=== PATIENT | female | born 1950 | race Caucasian/White ===

== ENCOUNTER 2016-03-30 14:20 | Emergency (ER) | payer MEDICARE ==
[~2016-03-30 14:20] MED LIST: /AUGM875TA OR; /GLIM4TA PO; /MAGN40TA PO; /MOM400 PO; /MOXI40TA PO; ACET650T12 PO; ACET65TA; ACET65TA OR; ALDA25TA2 OR; ALLE25CA OR; ARANESP SC; ASPI-85 PO; ASPI1TAB PO; AUGM875T27 PO; BABY81CH OR; BABY81CH PO; BACIDCA PO; BENA25CA2 PO; BENA25TA4 PO; BISAC5TA PO; CALC1CAP31 PO; CARV25TA PO; CEFD300CAP PO; CEFT2VL IV; CIPR500T89 PO; CLEO300C OR; CLIN300C OR; COENZYME PO; COLA100C2; COLA100C2 OR; COLA50CA3 PO; CORE12.5 PO; CORE25TA OR; COZA100T2 PO; CYCL10TA PO; DARB30SYRN SC; DEMA10TA OR; DICL13PA TOP; DIFL150T PO; DOCU10ELUD PO; DRIS50002 PO; EX LAX PO; FERR325T; FERR325T3 PO; FERROUS SULFATE PO; FLEXERIL PO; GENTAMYCIN TOP; GLIP5TAB2 PO; GLIP5TAB8 PO; GLIPI PO; GLUC1000 PO; HEPA100PFS INJ; HUMA100I3 SC; HYDR25TA6; IMDU30TA PO; IMDUR PO; INSULANT SQ; INSULIN LANTUS SC; INVA1INJ IV; KCL PO; KETO2CR EXT; LASI40TA PO; LASI80TA PO; LISI10TA4 OR; LISI20TA5; LISI40TA PO; LOPR100T; LYRI75CA; MAG400TA PO; MAGN400T19 PO; MILKSUS OR; MIRA3350 PO; MIRALEX; NEUR300C PO; NITR0.4S SL; NOVOLOG100 MG/ML; PAXI20TA PO; PERC10TA PO; PERC10TA9 PO; PERCOCET PO; PRAV40TA PO; ROCE1INJ4 INJ; SALI0.9I2 IV; SENE8.6T PO; SENN8.6T5 OR; SENO8.6T10 PO; SENO8.6T9 PO; SILV40CR TOP; SPIR25TA2 PO; Silvadene TOP; TORS20TA2 PO; TRAD5TAB PO; TUMS500C PO; TYLE325T5 PO; TYLENOL #3 OR; TYLENOL PM; VANC25CA; VICO5TAB; VICO5TAB OR; VIST25CA; VITAMIN D PO; [UNRECOGNIZED DRUG - CODE] IV; [UNRECOGNIZED DRUG - OTHER] PO; [UNRECOGNIZED DRUG - OTHER] PO; [UNRECOGNIZED DRUG - OTHER] TOP
[2016-03-30 15:05] LABS: BASO % 0.3 % (0.0-1.0); EOS # 0.4 K/mm3 (0.0-0.50); LARGE UNSTAINED CELL # 0.1 K/mm3 (0.0-0.4); LARGE UNSTAINED CELL % 1.2 % (0.0-4.0); LYMPH # 1.7 K/mm3 (1.5-4.5); LYMPH % 18.7 % (24.0-44.0); MEAN CORPUSCULAR HEMOGLOBIN 30.7 pg (27.0-33.0); MEAN CORPUSCULAR HGB CONC 33.5 g/dl (32.0-36.5); MEAN CORPUSCULAR VOLUME 91.9 fl (80.0-96.0); MONO # 0.4 K/mm3 (0.0-0.8); MONO % 4.2 % (0.0-5.0); NEUTROPHILS # 6.1 K/mm3 (1.8-7.7); NEUTROPHILS % 70.6 % (36.0-66.0); PLATELET COUNT, AUTOMATED 190 k/mm3 (150-450); RED CELL DISTRIBUTION WIDTH 14.7 % (11.5-14.5); WHITE BLOOD COUNT 8.6 K/mm3 (4.0-10.0)
[2016-03-30] MEDS ORDERED: ONDANSETRON 4MG/2ML VIAL (J2405) As Ordered ONE (15:09)
[2016-03-30] MEDS ORDERED: KETOROLAC 30 MG/ML VIAL (J1885) As Ordered ONE (15:09)
[2016-03-30 15:31] LABS: ALBUMIN 3.7 GM/DL (3.2-5.2); ALBUMIN/GLOBULIN RATIO 0.97 (1.00-1.93); ALKALINE PHOSPHATASE 121 U/L (45-117); ALT/SGPT 30 U/L (12-78); AMYLASE 52 U/L (25-115); ANION GAP 10 MEQ/L (8-16); AST/SGOT 33 U/L (15-37); BILIRUBIN,DIRECT 0.2 MG/DL (0.0-0.2); BILIRUBIN,TOTAL 0.7 MG/DL (0.2-1.0); BLOOD UREA NITROGEN 43 MG/DL (7-18); CALCIUM LEVEL 8.7 MG/DL (8.8-10.2); CARBON DIOXIDE LEVEL 29 MEQ/L (21-32); CHLORIDE LEVEL 99 MEQ/L (98-107); CREATININE FOR GFR 2.96 MG/DL (0.55-1.02); GLUCOSE, FASTING 116 MG/DL (80-110); SODIUM LEVEL 138 MEQ/L (136-145); TOTAL PROTEIN 7.5 GM/DL (6.4-8.2)
[2016-03-30 15:38] LABS: POTASSIUM SERUM 4.2 MEQ/L (3.5-5.1)
--- NOTE | 2016-03-30 16:31 | EDDOCDS ---
Physician Documentation [facility] Name: Norma Narayan Age: 65 yrs Sex: Female : 1950 Arrival Date: 03/30/2016 Time: 14:20 Bed 9 Private MD: Jeremy Cornell D Disposition: 03/30/16 16:11 Discharged to Home/Self Care. Impression: Illness, unspecified, Diarrhea, unspecified. - Condition is Stable. - Discharge Instructions: Diarrhea, Viral Infections. - Prescriptions for Zofran 4 mg Oral Tablet - take 1 tablet by ORAL route 4 times per day As needed; 10 tablet. - Medication Reconciliation, Local Pharmacy Hours form. - Follow up: Jeremy Cornell; When: 4 - 5 days; Reason: Recheck today's complaints, Continuance of care. - Problem is an ongoing problem. - Symptoms are unchanged. Historical: - Allergies: Adhesives (Rash); [place] (Hives); Vicodin (itching); - Home Meds: 1. aspirin 81 mg Oral chew 1 tab once daily 2. carvedilol 12.5 mg oral tab 2 times per day 3. spironolactone 25 mg Oral tab 2 times per day 4. gabapentin 300 mg Oral cap 2 caps nightly 5. paroxetine HCl 40 mg Oral tab once daily 6. torsemide 20 mg oral tab twice a day 7. Sofia-Nicolas 0.8 mg oral tab daily ran out 8. atorvastatin 40 mg oral tab 1 tab once daily 9. calcitriol 0.25 mcg oral cap 2 caps once daily 10. Flexeril 10 mg Oral tab nightly 11. Iron CR Oral twice a day 12. Tradjenta 5 mg oral tab 1 tab once daily 13. Imdur Unknown Oral 14. Lantus 70 units AM and 60 units at night Sub-Q soln 70 unit twice a day 15. Vitamin D Oral 50,000 unit weekly - PMHx: Angina; Diabetes - IDDM: controlled; Stage IV kidney disease; Hypertension; - PSHx: Appendectomy; Cholecystectomy; Tonsillectomy; Hysterectomy; D & C; Cesearean Section; - Social history: Smoking status: Patient states former smoker of tobacco. No barriers to communication noted, The patient speaks fluent Persian, Speaks appropriately for age. - Family history: Not pertinent. - : The pt / caregiver states he / she is not on anticoagulants. Home medication list is obtained from the patient. - Exposure Risk Screening:: None identified. Vital Signs: 03/30 14:22 BP 152 / 65 LA Sitting (auto/lg); Pulse 75; Resp 16; Temp 98.6(O); Pulse Ox 100% on rs6 R/A; Weight 122.92 kg / 270.99 lbs (R); Height 5 ft. 10 in. (177.80 cm) (R); Pain 0/10; 14:51 BP 147 / 67 (auto/); pml 14:53 Pulse 72 MON; Pulse Ox 99% ; pml 15:19 BP 164 / 73 (auto/); pml 15:20 Pulse 76 MON; Pulse Ox 99% ; pml 15:34 Pulse 70 MON; Pulse Ox 95% ; pml 15:34 BP 134 / 63 (auto/); pml 15:49 Pulse 68 MON; Pulse Ox 95% ; pml 15:49 BP 123 / 58 (auto/); pml 16:04 Pulse 70 MON; Pulse Ox 95% ; pml 16:04 BP 122 / 57 (auto/); pml 16:29 BP 111 / 56; Pulse 72; Resp 18; Temp 97.9; Pulse Ox 99% on R/A; Pain 2/10; pml 14:22 Body Mass Index 38.88 (122.92 kg, 177.80 cm) rs6 MDM: 14:40 Undress patient appropriately for examination ordered. sd1 14:41 ECG WITH READING ER PHYS+CARDIAG ordered. EDMS 14:41 Amylase Ordered. EDMS 14:41 Basic Metabolic Profile Ordered. EDMS 14:41 CBC with Diff Ordered. EDMS 14:41 Lipase Ordered. EDMS 14:41 Liver Profile Ordered. EDMS 14:41 Abdomen, Flat\E\Upright,PA Chest Ordered. EDMS 14:41 ECG WITH READING ER PHYS+CARDIAG ordered. EDMS 14:41 NOTHING BY MOUTH+DIET ordered. EDMS 15:03 NS 0.9% 1000 ml IV at 100 mL/hr continuous ordered. ke 15:03 Ondansetron 4 mg IVP once ordered. ke 15:03 ketorolac 30 mg IVP once ordered. ke 15:07 CARDIAC INJURY PROFILE Ordered. EDMS 15:07 TROPONIN Ordered. EDMS 15:59 Financial registration complete. [email or web address] 16:00 [facility] Payment Agreement was scanned into [employer] and attached to record. ks16 16:07 Basic Metabolic Profile Reviewed. ke 16:07 CBC with Diff Reviewed. ke 16:07 Liver Profile Reviewed. ke 16:07 Amylase Reviewed. ke 16:07 Lipase Reviewed. ke 16:07 CARDIAC INJURY PROFILE Reviewed. ke 16:07 TROPONIN Reviewed. ke Administered Medications: 15:15 Drug: ketorolac 30 mg [ketorolac 30 mg/mL (1 mL) injection solution (1 mL)] Route: IVP; pml Site: left forearm; 15:57 Drug: Ondansetron 4 mg [ondansetron HCl 2 mg/mL intravenous solution (2 mL)] Route: pml IVP; Site: left forearm; 15:58 Drug: NS 0.9% 1000 ml [sodium chloride 0.9 % injection syringe] Route: IV; Rate: 100 pml mL/hr; Site: left forearm; 16:30 Follow up: IV Status: Completed infusion; IV Intake: 200ml pml Signatures: Dispatcher [employer] EDMS Vilma Oh MD MD sd1 Andre Elliott, FINANCE CLERK FINANCE CLERK Suzanne BeebeRN RN kr3 Yana WallaceRN RN pml Yadira Julian, Reg Reg [email or web address] The chart was reviewed and I authenticate all verbal orders and agree with the evaluation and treatment provided.Corrections: (The following items were deleted from the chart) 15:08 15:04 CARDIAC INJURY PROFILE+LAB ordered. EDMS EDMS 15:08 15:04 TROPONIN+LAB ordered. EDMS EDMS Attachments: 16:00 [facility] Payment Agreement [email or web address] MTDD
--- NOTE | 2016-03-30 16:31 | EDDOCDS ---
Nurse's Notes [facility] Name: Norma Narayan Age: 65 yrs Sex: Female : 1950 Arrival Date: 03/30/2016 Time: 14:20 Bed 9 Private MD: Jermey Cornell D Diagnosis: Illness, unspecified;Diarrhea, unspecified Presentation: 03/30 14:33 Presenting complaint: Patient states: nausea, vomiting and diarrhea began on thursday. kr3 Adult Sepsis Screening: The patient does not have new or worsening altered mentation. Patient's respiratory rate is less than 22. Systolic blood pressure is greater than 100. Patient has a qSOFA score of 0- Negative Sepsis Screen. Suicide/Homicide risk assessment- the patient denies having any suicidal and/or homicidal ideations and does not present with any other emotional, behavioral or mental health complaints. Status: Patient is not a micrographics services supervisor or dependent. Transition of care: patient was not received from another setting of care. 14:33 Method Of Arrival: Walkin/Carried/Asstd kr3 14:33 Acuity: LOREN Level 3 kr3 Triage Assessment: 14:38 General: Appears in no apparent distress, comfortable, Behavior is cooperative. Pain: kr3 Location: all over chest and back Pain currently is 4 out of 10 on a pain scale. Quality of pain is described as discomfort. HIV screening NA for this visit Offered previously. Neurological: Reports dizziness. Respiratory: Respiratory effort is even, unlabored. GI: Reports diarrhea, nausea. Derm: Skin is normal. Historical: - Allergies: Adhesives (Rash); [place]ce[place] (Hives); Vicodin (itching); - Home Meds: 1. aspirin 81 mg Oral chew 1 tab once daily 2. carvedilol 12.5 mg oral tab 2 times per day 3. spironolactone 25 mg Oral tab 2 times per day 4. gabapentin 300 mg Oral cap 2 caps nightly 5. paroxetine HCl 40 mg Oral tab once daily 6. torsemide 20 mg oral tab twice a day 7. Sofia-Nicolas 0.8 mg oral tab daily ran out 8. atorvastatin 40 mg oral tab 1 tab once daily 9. calcitriol 0.25 mcg oral cap 2 caps once daily 10. Flexeril 10 mg Oral tab nightly 11. Iron CR Oral twice a day 12. Tradjenta 5 mg oral tab 1 tab once daily 13. Imdur Unknown Oral 14. Lantus 70 units AM and 60 units at night Sub-Q soln 70 unit twice a day 15. Vitamin D Oral 50,000 unit weekly - PMHx: Angina; Diabetes - IDDM: controlled; Stage IV kidney disease; Hypertension; - PSHx: Appendectomy; Cholecystectomy; Tonsillectomy; Hysterectomy; D & C; Cesearean Section; - Social history: Smoking status: Patient states former smoker of tobacco. No barriers to communication noted, The patient speaks fluent Kiswahili, Speaks appropriately for age. - Family history: Not pertinent. - : The pt / caregiver states he / she is not on anticoagulants. Home medication list is obtained from the patient. - Exposure Risk Screening:: None identified. Screenin:02 Screening information is obtained from the patient. Fall risk: No risks identified. pml Assistance ADL's: requires no assistance with activities of daily living. Abuse/DV Screen: The patient / caregiver reports he/she is: not in a situation that causes fear, pain or injury. Nutritional screening: No deficits noted. Advance Directives: Currently, there is no health care proxy. home support is adequate. Assessment: 15:02 General: Appears in no apparent distress, Behavior is appropriate for age, cooperative. pml Pain: Location: chest Pain currently is 4 out of 10 on a pain scale. Neurological: Level of Consciousness is awake, alert, Oriented to person, place, time. Cardiovascular: Capillary refill < 3 seconds Rhythm is sinus rhythm No ectopy. Cardiovascular: Chest pain began 1 day ago. Respiratory: Airway is patent Respiratory effort is even, unlabored. GI: Abdomen is non- distended obese, Bowel sounds present X 4 quads. Abd is soft X 4 quads. Derm: Skin is pink, warm & dry. 16:28 General: Appears in no apparent distress, Behavior is appropriate for age, cooperative. pml Pain: Location: chest Pain currently is 2 out of 10 on a pain scale. Neurological: Level of Consciousness is awake, alert, Oriented to person, place, time. Cardiovascular: Capillary refill < 3 seconds Rhythm is sinus rhythm No ectopy. Respiratory: Airway is patent Respiratory effort is even, unlabored. Derm: Skin is pink, warm & dry. Vital Signs: 14:22 BP 152 / 65 LA Sitting (auto/lg); Pulse 75; Resp 16; Temp 98.6(O); Pulse Ox 100% on rs6 R/A; Weight 122.92 kg (R); Height 5 ft. 10 in. (177.80 cm) (R); Pain 0/10; 14:51 BP 147 / 67 (auto/); pml 14:53 Pulse 72 MON; Pulse Ox 99% ; pml 15:19 BP 164 / 73 (auto/); pml 15:20 Pulse 76 MON; Pulse Ox 99% ; pml 15:34 Pulse 70 MON; Pulse Ox 95% ; pml 15:34 BP 134 / 63 (auto/); pml 15:49 Pulse 68 MON; Pulse Ox 95% ; pml 15:49 BP 123 / 58 (auto/); pml 16:04 Pulse 70 MON; Pulse Ox 95% ; pml 16:04 BP 122 / 57 (auto/); pml 16:29 BP 111 / 56; Pulse 72; Resp 18; Temp 97.9; Pulse Ox 99% on R/A; Pain 2/10; pml 14:22 Body Mass Index 38.88 (122.92 kg, 177.80 cm) [facility] Vitals: 14:22 Log In Time: March 30, 2016 at 14:14. rs6 ED Course: 14:22 Patient visited by Catrachita Craig PCA. rs6 14:22 Jeremy Cornell is Private Physician. rs6 14:22 Patient moved to Waiting rs6 14:23 Patient visited by Catrachita Craig PCA. rs6 14:23 Patient moved to Pre RCE rs6 14:34 Triage Initiated kr3 14:42 Yana Wallace,RN is Primary Nurse. kr3 14:42 Patient moved to 9 kr3 14:56 Andre Elliott FNP is PHCP. ke 14:57 Patient visited by Andre Elliott FNP. ke 14:57 Patient visited by Andre Elliott FNP. ke 15:02 The patient / caregiver is instructed regarding the plan of care and ED course. Patient howard has correct armband on for positive identification. Placed in gown. Bed in low position. Call light in reach. Side rails up X2. patient monitor on. Pulse ox on. NIBP on. 15:02 Inserted peripheral IV: 20gauge IV in left forearm and blood collected. Patient howard tolerated the procedure well. 15:03 Patient visited by Gregoria Rangel PCA. ct3 15:03 EKG done. (by ED staff). Reviewed by Andre HOLCOMB. ct3 15:43 Patient visited by Andre Elliott FNP. ke 16:00 [facility] Payment Agreement was scanned into test company and attached to record. [email or web address] 16:11 Jeremy Cornell is Referral Physician. ke 16:29 Discontinued lock intact, bleeding controlled, pressure dressing applied, No pml redness/swelling at site. No procedures done that require assistance. Administered Medications: 15:15 Drug: ketorolac 30 mg [ketorolac 30 mg/mL (1 mL) injection solution (1 mL)] Route: IVP; pml Site: left forearm; 15:57 Drug: Ondansetron 4 mg [ondansetron HCl 2 mg/mL intravenous solution (2 mL)] Route: pml IVP; Site: left forearm; 15:58 Drug: NS 0.9% 1000 ml [sodium chloride 0.9 % injection syringe] Route: IV; Rate: 100 pml mL/hr; Site: left forearm; 16:30 Follow up: IV Status: Completed infusion; IV Intake: 200ml pml Intake: 16:30 IV: 200.00ml; Total: 200.00ml. pml Order Results: Lab Order: Amylase; SPEC'M 03/30/16 15:00 Test: AMYLASE; Value: 52; Range: 25-115; Units: U/L; Status: F Lab Order: Basic Metabolic Profile; SPEC'M 03/30/16 15:00 Test: GLUCOSE, FASTING; Value: 116; Range: 80-110; Abnormal: Above high normal; Units: MG/DL; Status: F Test: BLOOD UREA NITROGEN; Value: 43; Range: 7-18; Abnormal: Above high normal; Units: MG/DL; Status: F Test: CREATININE FOR GFR; Value: 2.96; Range: 0.55-1.02; Abnormal: Above high normal; Units: MG/DL; Status: F Test: GLOMERULAR FILTRATION RATE; Value: 17.0; Range: >45; Abnormal: Below low normal; Status: F Test: SODIUM LEVEL; Value: 138; Range: 136-145; Units: MEQ/L; Status: F Test: POTASSIUM SERUM; Value: 4.2; Range: 3.5-5.1; Units: MEQ/L; Status: F Test: CHLORIDE LEVEL; Value: 99; Range: 98-107; Units: MEQ/L; Status: F Test: CARBON DIOXIDE LEVEL; Value: 29; Range: 21-32; Units: MEQ/L; Status: F Test: ANION GAP; Value: 10; Range: 8-16; Units: MEQ/L; Status: F Test: CALCIUM LEVEL; Value: 8.7; Range: 8.8-10.2; Abnormal: Below low normal; Units: MG/DL; Status: F Test Note: ; Units are mL/min/1.73 m2 Chronic Kidney Disease Staging per NKF: Stage I & II GFR >=60 Normal to Mildly Decreased Stage III GFR 30-59 Moderately Decreased Stage IV GFR 15-29 Severely Decreased Stage V GFR <15 Very Little GFR Left ESRD GFR <15 on CRIME PREVENTION WORKER Lab Order: CBC with Diff; SPEC'M 03/30/16 15:00 Test: WHITE BLOOD COUNT; Value: 8.6; Range: 4.0-10.0; Units: K/mm3; Status: F Test: RED BLOOD COUNT; Value: 3.34; Range: 4.00-5.40; Abnormal: Below low normal; Units: M/mm3; Status: F Test: HEMOGLOBIN; Value: 10.3; Range: 12.0-16.0; Abnormal: Below low normal; Units: g/dl; Status: F Test: HEMATOCRIT; Value: 30.7; Range: 36.0-47.0; Abnormal: Below low normal; Units: %; Status: F Test: MEAN CORPUSCULAR VOLUME; Value: 91.9; Range: 80.0-96.0; Units: fl; Status: F Test: MEAN CORPUSCULAR HEMOGLOBIN; Value: 30.7; Range: 27.0-33.0; Units: pg; Status: F Test: MEAN CORPUSCULAR HGB CONC; Value: 33.5; Range: 32.0-36.5; Units: g/dl; Status: F Test: RED CELL DISTRIBUTION WIDTH; Value: 14.7; Range: 11.5-14.5; Abnormal: Above high normal; Units: %; Status: F Test: PLATELET COUNT, AUTOMATED; Value: 190; Range: 150-450; Units: k/mm3; Status: F Test: NEUTROPHILS %; Value: 70.6; Range: 36.0-66.0; Abnormal: Above high normal; Units: %; Status: F Test: LYMPH %; Value: 18.7; Range: 24.0-44.0; Abnormal: Below low normal; Units: %; Status: F Test: MONO %; Value: 4.2; Range: 0.0-5.0; Units: %; Status: F Test: EOS %; Value: 5.0; Range: 0.0-3.0; Abnormal: Above high normal; Units: %; Status: F Test: BASO %; Value: 0.3; Range: 0.0-1.0; Units: %; Status: F Test: LARGE UNSTAINED CELL %; Value: 1.2; Range: 0.0-4.0; Units: %; Status: F Test: NEUTROPHILS #; Value: 6.1; Range: 1.8-7.7; Units: K/mm3; Status: F Test: LYMPH #; Value: 1.7; Range: 1.5-4.5; Units: K/mm3; Status: F Test: MONO #; Value: 0.4; Range: 0.0-0.8; Units: K/mm3; Status: F Test: EOS #; Value: 0.4; Range: 0.0-0.50; Units: K/mm3; Status: F Test: BASO #; Value: 0.0; Range: 0.0-0.2; Units: K/mm3; Status: F Test: LARGE UNSTAINED CELL #; Value: 0.1; Range: 0.0-0.4; Units: K/mm3; Status: F Lab Order: Lipase; SPEC'M 03/30/16 15:00 Test: LIPASE; Value: 194; Range: 73-393; Units: U/L; Status: F Lab Order: Liver Profile; SPEC'M 03/30/16 15:00 Test: AST/SGOT; Value: 33; Range: 15-37; Units: U/L; Status: F Test: ALT/SGPT; Value: 30; Range: 12-78; Units: U/L; Status: F Test: ALKALINE PHOSPHATASE; Value: 121; Range: 45-117; Abnormal: Above high normal; Units: U/L; Status: F Test: BILIRUBIN,TOTAL; Value: 0.7; Range: 0.2-1.0; Units: MG/DL; Status: F Test: BILIRUBIN,DIRECT; Value: 0.2; Range: 0.0-0.2; Units: MG/DL; Status: F Test: TOTAL PROTEIN; Value: 7.5; Range: 6.4-8.2; Units: GM/DL; Status: F Test: ALBUMIN; Value: 3.7; Range: 3.2-5.2; Units: GM/DL; Status: F Test: ALBUMIN/GLOBULIN RATIO; Value: 0.97; Range: 1.00-1.93; Abnormal: Below low normal; Status: F Lab Order: CARDIAC INJURY PROFILE; LOCATED [facility]IN [facility]' 03/30/16 15:00 Test: CPK CREATINE PHOSPHOKINASE; Value: 128; Range: 26-192; Units: U/L; Status: F Test: CK-MB VALUE MASS; Value: 3.4; Range: 0.0-3.6; Units: NG/ML; Status: F Test: MB/CK RELATIVE INDEX; Value: 2.65; Range: < OR =4; Status: F Test Note: ; DIAGNOSIS CRITERIA MMB ng/ml Relative Index (RI) NON-AMI < or = 5 N/A [place]ONE > 5 < or = 4 AMI > 5 > 4 Lab Order: TROPONIN; SPEC' 03/30/16 15:00 Test: TROPONIN I; Value: < 0.02; Range: < 0.10; Units: NG/ML; Status: F Test Note: ; Troponin I Reference Interval for [employer] LOCI: 99th Percentile= 0.00-0.045 ng/ml Risk Stratification: <= 0.10 ng/ml Decreased Risk for Adverse Clinical Events. 0.10-1.50 ng/ml Increased Risk for Adverse Clinical Events. Evaluation of additional criterion and/or repeat testing in 2-6 hours is suggested to rule out myocardial damage. >= 1.50 ng/ml Indicative of Myocardial Injury. Outcome: 16:11 Discharge ordered by Provider. 16:29 Discharge Assessment: Patient awake, alert and oriented x 3. No cognitive and/or pml functional deficits noted. Patient verbalized understanding of disposition instructions. patient administered narcotics - no. The following High Risk Discharge criteria are identified: None. Discharged to home ambulatory. Condition: good Condition: stable. Discharge instructions given to patient, Instructed on discharge instructions, follow up and referral plans. medication usage, Demonstrated understanding of instructions, medications, Pt was receptive of discharge instructions/ teaching. Prescriptions given X 1. No special radiology studies were completed. Property sent home with patient. 16:30 Patient left the ED. pml Signatures: Andre Elliott, CHUTE MAN CHUTE MAN Suzanne BeebeRN RN kr3 Gregoria Rangel, COAL AND ASH SUPERVISOR COAL AND ASH SUPERVISOR ct3 Yana WallaceRN RN pml Catrachita Craig, COAL AND ASH SUPERVISOR COAL AND ASH SUPERVISOR rs6 Yadira Julian, Reg Reg [email or web address] Corrections: (The following items were deleted from the chart) 16:30 14:51 BP 111 / 56; Pulse 72bpm; Resp 18bpm; Pulse Ox 99% RA; Temp 97.9F; Pain 2/10; pml pml MTDD
--- NOTE | 2016-03-30 16:58 | ECGEPIP ---
Stationary ECG Study [facility] - ED Test Date: 2016-03-30 Pat Name: CARMELITA KANG Department: Room: - Gender: F Fire [employer]: ct : 1950 Requested By: Vilma Oh Order Number: [id number] Reading MD: Dhruv Marin Measurements Intervals [place] Rate: 76 P: 48 LA: 202 QRS: 25 QRSD: 103 T: 25 QT: 385 QTc: 433 Interpretive Statements SINUS RHYTHM POSSIBLE PRIOR INFARCT SIMILAR TO 03/28/15 Electronically Signed On 03-30-2016 16:58:31 EST by Dhruv Marin
--- NOTE | 2016-03-31 05:44 | REP ---
Abdominal series: Four views. History: Vomiting. Comparison study March 28, 2015. Findings: Upright chest radiograph shows clear well inflated lungs. Pleural angles are sharp. Heart size is not enlarged. There is no evidence of free subdiaphragmatic air or infiltrate. Supine and erect views of the abdomen reveal air and stool in a nondistended colon. No small or large bowel dilation is seen. There is some vascular calcification. There are clips in the right upper quadrant post cholecystectomy. Impression: Normal bowel gas pattern. Clips in the right upper quadrant. No acute disease. Signed by Mihai Burrows MD 03/31/2016 02:22 P
--- NOTE | 2016-04-01 17:31 | EDDOCDS ---
Physician Documentation [facility] Name: Norma Narayan Age: 65 yrs Sex: Female : 1950 Arrival Date: 03/30/2016 Time: 14:20 Bed 9 Private MD: Jeremy Cornell D Disposition: 03/30/16 16:11 Discharged to Home/Self Care. Impression: Illness, unspecified, Diarrhea, unspecified. - Condition is Stable. - Discharge Instructions: Diarrhea, Viral Infections. - Prescriptions for Zofran 4 mg Oral Tablet - take 1 tablet by ORAL route 4 times per day As needed; 10 tablet. - Medication Reconciliation, Local Pharmacy Hours form. - Follow up: Jeremy Cornell; When: 4 - 5 days; Reason: Recheck today's complaints, Continuance of care. - Problem is an ongoing problem. - Symptoms are unchanged. Historical: - Allergies: Adhesives (Rash); [place] (Hives); Vicodin (itching); - Home Meds: 1. aspirin 81 mg Oral chew 1 tab once daily 2. carvedilol 12.5 mg oral tab 2 times per day 3. spironolactone 25 mg Oral tab 2 times per day 4. gabapentin 300 mg Oral cap 2 caps nightly 5. paroxetine HCl 40 mg Oral tab once daily 6. torsemide 20 mg oral tab twice a day 7. Sofia-Nicolas 0.8 mg oral tab daily ran out 8. atorvastatin 40 mg oral tab 1 tab once daily 9. calcitriol 0.25 mcg oral cap 2 caps once daily 10. Flexeril 10 mg Oral tab nightly 11. Iron CR Oral twice a day 12. Tradjenta 5 mg oral tab 1 tab once daily 13. Imdur Unknown Oral 14. Lantus 70 units AM and 60 units at night Sub-Q soln 70 unit twice a day 15. Vitamin D Oral 50,000 unit weekly - PMHx: Angina; Diabetes - IDDM: controlled; Stage IV kidney disease; Hypertension; - PSHx: Appendectomy; Cholecystectomy; Tonsillectomy; Hysterectomy; D & C; Cesearean Section; - Social history: Smoking status: Patient states former smoker of tobacco. No barriers to communication noted, The patient speaks fluent Yakut, Speaks appropriately for age. - Family history: Not pertinent. - : The pt / caregiver states he / she is not on anticoagulants. Home medication list is obtained from the patient. - Exposure Risk Screening:: None identified. Vital Signs: 03/30 14:22 BP 152 / 65 LA Sitting (auto/lg); Pulse 75; Resp 16; Temp 98.6(O); Pulse Ox 100% on rs6 R/A; Weight 122.92 kg / 270.99 lbs (R); Height 5 ft. 10 in. (177.80 cm) (R); Pain 0/10; 14:51 BP 147 / 67 (auto/); pml 14:53 Pulse 72 MON; Pulse Ox 99% ; pml 15:19 BP 164 / 73 (auto/); pml 15:20 Pulse 76 MON; Pulse Ox 99% ; pml 15:34 Pulse 70 MON; Pulse Ox 95% ; pml 15:34 BP 134 / 63 (auto/); pml 15:49 Pulse 68 MON; Pulse Ox 95% ; pml 15:49 BP 123 / 58 (auto/); pml 16:04 Pulse 70 MON; Pulse Ox 95% ; pml 16:04 BP 122 / 57 (auto/); pml 16:29 BP 111 / 56; Pulse 72; Resp 18; Temp 97.9; Pulse Ox 99% on R/A; Pain 2/10; pml 14:22 Body Mass Index 38.88 (122.92 kg, 177.80 cm) rs6 MDM: 14:40 Undress patient appropriately for examination ordered. sd1 14:41 ECG WITH READING ER PHYS+CARDIAG ordered. EDMS 14:41 Amylase Ordered. EDMS 14:41 Basic Metabolic Profile Ordered. EDMS 14:41 CBC with Diff Ordered. EDMS 14:41 Lipase Ordered. EDMS 14:41 Liver Profile Ordered. EDMS 14:41 Abdomen, Flat\E\Upright,PA Chest Ordered. EDMS 14:41 ECG WITH READING ER PHYS+CARDIAG ordered. EDMS 14:41 NOTHING BY MOUTH+DIET ordered. EDMS 15:03 NS 0.9% 1000 ml IV at 100 mL/hr continuous ordered. ke 15:03 Ondansetron 4 mg IVP once ordered. ke 15:03 ketorolac 30 mg IVP once ordered. ke 15:07 CARDIAC INJURY PROFILE Ordered. EDMS 15:07 TROPONIN Ordered. EDMS 15:59 Financial registration complete. [email or web address] 16:00 [facility] Payment Agreement was scanned into [employer] and attached to record. [email or web address] 16: Basic Metabolic Profile Reviewed. ke 16: CBC with Diff Reviewed. ke 16:07 Liver Profile Reviewed. ke 16: Amylase Reviewed. ke 16:07 Lipase Reviewed. ke 16:07 CARDIAC INJURY PROFILE Reviewed. ke 16:07 TROPONIN Reviewed. ke 03/31 11:51 T-Sheet-- Draft Copy was scanned into [employer] and attached to record. gb 11:51 ECG/EKG was scanned into [employer] and attached to record. gb Administered Medications: 03/30 15:15 Drug: ketorolac 30 mg [ketorolac 30 mg/mL (1 mL) injection solution (1 mL)] Route: IVP; pml Site: left forearm; 15:57 Drug: Ondansetron 4 mg [ondansetron HCl 2 mg/mL intravenous solution (2 mL)] Route: pml IVP; Site: left forearm; 15:58 Drug: NS 0.9% 1000 ml [sodium chloride 0.9 % injection syringe] Route: IV; Rate: 100 pml mL/hr; Site: left forearm; 16:30 Follow up: IV Status: Completed infusion; IV Intake: 200ml pml Signatures: Dispatcher [employer] EDMS Vilma Oh MD MD sd1 Myrna Kyle, Reg Reg gb Andre Elliott, HAT MEASURER HAT MEASURER Suzanne Beebe RN RN kr3 Yana Wallace RN RN pml Yadira Julian, Reg Reg [email or web address] The chart was reviewed and I authenticate all verbal orders and agree with the evaluation and treatment provided.Corrections: (The following items were deleted from the chart) 15:08 15:04 CARDIAC INJURY PROFILE+LAB ordered. EDMS EDMS 15: 15:04 TROPONIN+LAB ordered. EDMS EDMS Attachments: 16:00 [facility] Payment Agreement 03/31 11:51 T-Sheet-- Draft Copy gb 11:51 ECG/EKG gb Chart Complete MTDD
--- NOTE | 2016-04-01 17:31 | EDDOCDS ---
Physician Documentation [facility] Name: Norma Narayna Age: 65 yrs Sex: Female : 1950 Arrival Date: 03/30/2016 Time: 14:20 Bed 9 Private MD: Jeremy Cornell D Disposition: 03/30/16 16:11 Discharged to Home/Self Care. Impression: Illness, unspecified, Diarrhea, unspecified. - Condition is Stable. - Discharge Instructions: Diarrhea, Viral Infections. - Prescriptions for Zofran 4 mg Oral Tablet - take 1 tablet by ORAL route 4 times per day As needed; 10 tablet. - Medication Reconciliation, Local Pharmacy Hours form. - Follow up: Jeremy Cornell; When: 4 - 5 days; Reason: Recheck today's complaints, Continuance of care. - Problem is an ongoing problem. - Symptoms are unchanged. Historical: - Allergies: Adhesives (Rash); [place] (Hives); Vicodin (itching); - Home Meds: 1. aspirin 81 mg Oral chew 1 tab once daily 2. carvedilol 12.5 mg oral tab 2 times per day 3. spironolactone 25 mg Oral tab 2 times per day 4. gabapentin 300 mg Oral cap 2 caps nightly 5. paroxetine HCl 40 mg Oral tab once daily 6. torsemide 20 mg oral tab twice a day 7. Sofia-Nicolas 0.8 mg oral tab daily ran out 8. atorvastatin 40 mg oral tab 1 tab once daily 9. calcitriol 0.25 mcg oral cap 2 caps once daily 10. Flexeril 10 mg Oral tab nightly 11. Iron CR Oral twice a day 12. Tradjenta 5 mg oral tab 1 tab once daily 13. Imdur Unknown Oral 14. Lantus 70 units AM and 60 units at night Sub-Q soln 70 unit twice a day 15. Vitamin D Oral 50,000 unit weekly - PMHx: Angina; Diabetes - IDDM: controlled; Stage IV kidney disease; Hypertension; - PSHx: Appendectomy; Cholecystectomy; Tonsillectomy; Hysterectomy; D & C; Cesearean Section; - Social history: Smoking status: Patient states former smoker of tobacco. No barriers to communication noted, The patient speaks fluent Portuguese, Speaks appropriately for age. - Family history: Not pertinent. - : The pt / caregiver states he / she is not on anticoagulants. Home medication list is obtained from the patient. - Exposure Risk Screening:: None identified. Vital Signs: 03/30 14:22 BP 152 / 65 LA Sitting (auto/lg); Pulse 75; Resp 16; Temp 98.6(O); Pulse Ox 100% on rs6 R/A; Weight 122.92 kg / 270.99 lbs (R); Height 5 ft. 10 in. (177.80 cm) (R); Pain 0/10; 14:51 BP 147 / 67 (auto/); pml 14:53 Pulse 72 MON; Pulse Ox 99% ; pml 15:19 BP 164 / 73 (auto/); pml 15:20 Pulse 76 MON; Pulse Ox 99% ; pml 15:34 Pulse 70 MON; Pulse Ox 95% ; pml 15:34 BP 134 / 63 (auto/); pml 15:49 Pulse 68 MON; Pulse Ox 95% ; pml 15:49 BP 123 / 58 (auto/); pml 16:04 Pulse 70 MON; Pulse Ox 95% ; pml 16:04 BP 122 / 57 (auto/); pml 16:29 BP 111 / 56; Pulse 72; Resp 18; Temp 97.9; Pulse Ox 99% on R/A; Pain 2/10; pml 14:22 Body Mass Index 38.88 (122.92 kg, 177.80 cm) rs6 MDM: 14:40 Undress patient appropriately for examination ordered. sd1 14:41 ECG WITH READING ER PHYS+CARDIAG ordered. EDMS 14:41 Amylase Ordered. EDMS 14:41 Basic Metabolic Profile Ordered. EDMS 14:41 CBC with Diff Ordered. EDMS 14:41 Lipase Ordered. EDMS 14:41 Liver Profile Ordered. EDMS 14:41 Abdomen, Flat\E\Upright,PA Chest Ordered. EDMS 14:41 ECG WITH READING ER PHYS+CARDIAG ordered. EDMS 14:41 NOTHING BY MOUTH+DIET ordered. EDMS 15:03 NS 0.9% 1000 ml IV at 100 mL/hr continuous ordered. ke 15:03 Ondansetron 4 mg IVP once ordered. ke 15:03 ketorolac 30 mg IVP once ordered. ke 15:07 CARDIAC INJURY PROFILE Ordered. EDMS 15:07 TROPONIN Ordered. EDMS 15:59 Financial registration complete. [email or web address] 16:00 [facility] Payment Agreement was scanned into [employer] and attached to record. [email or web address] 16: Basic Metabolic Profile Reviewed. ke 16: CBC with Diff Reviewed. ke 16:07 Liver Profile Reviewed. ke 16: Amylase Reviewed. ke 16:07 Lipase Reviewed. ke 16:07 CARDIAC INJURY PROFILE Reviewed. ke 16:07 TROPONIN Reviewed. ke 03/31 11:51 T-Sheet-- Draft Copy was scanned into [employer] and attached to record. gb 11:51 ECG/EKG was scanned into [employer] and attached to record. gb Administered Medications: 03/30 15:15 Drug: ketorolac 30 mg [ketorolac 30 mg/mL (1 mL) injection solution (1 mL)] Route: IVP; pml Site: left forearm; 15:57 Drug: Ondansetron 4 mg [ondansetron HCl 2 mg/mL intravenous solution (2 mL)] Route: pml IVP; Site: left forearm; 15:58 Drug: NS 0.9% 1000 ml [sodium chloride 0.9 % injection syringe] Route: IV; Rate: 100 pml mL/hr; Site: left forearm; 16:30 Follow up: IV Status: Completed infusion; IV Intake: 200ml pml Signatures: Dispatcher [employer] EDMS Vilma Oh MD MD sd1 Myrna Kyle, Reg Reg gb Andre Elliott, COIN BOX INSPECTOR COIN BOX INSPECTOR Suzanne Beebe RN RN kr3 Yana Wallace RN RN pml Yadira Julian, Reg Reg ks16 The chart was reviewed and I authenticate all verbal orders and agree with the evaluation and treatment provided.Corrections: (The following items were deleted from the chart) 15:08 15:04 CARDIAC INJURY PROFILE+LAB ordered. EDMS EDMS 15: 15:04 TROPONIN+LAB ordered. EDMS EDMS Attachments: 16:00 [facility] Payment Agreement 03/31 11:51 T-Sheet-- Draft Copy gb 11:51 ECG/EKG gb Chart Complete MTDD
--- NOTE | 2016-04-01 17:31 | EDDOCDS ---
Nurse's Notes [facility] Name: Carmelita Narayan Age: 65 yrs Sex: Female : 1950 Arrival Date: 03/30/2016 Time: 14:20 Bed 9 Private MD: Jeremy Cornell D Diagnosis: Illness, unspecified;Diarrhea, unspecified Presentation: 03/30 14:33 Presenting complaint: Patient states: nausea, vomiting and diarrhea began on thursday. kr3 Adult Sepsis Screening: The patient does not have new or worsening altered mentation. Patient's respiratory rate is less than 22. Systolic blood pressure is greater than 100. Patient has a qSOFA score of 0- Negative Sepsis Screen. Suicide/Homicide risk assessment- the patient denies having any suicidal and/or homicidal ideations and does not present with any other emotional, behavioral or mental health complaints. Status: Patient is not a services host or dependent. Transition of care: patient was not received from another setting of care. 14:33 Method Of Arrival: Walkin/Carried/Asstd kr3 14:33 Acuity: LOREN Level 3 kr3 Triage Assessment: 14:38 General: Appears in no apparent distress, comfortable, Behavior is cooperative. Pain: kr3 Location: all over chest and back Pain currently is 4 out of 10 on a pain scale. Quality of pain is described as discomfort. HIV screening NA for this visit Offered previously. Neurological: Reports dizziness. Respiratory: Respiratory effort is even, unlabored. GI: Reports diarrhea, nausea. Derm: Skin is normal. Historical: - Allergies: Adhesives (Rash); [place] (Hives); Vicodin (itching); - Home Meds: 1. aspirin 81 mg Oral chew 1 tab once daily 2. carvedilol 12.5 mg oral tab 2 times per day 3. spironolactone 25 mg Oral tab 2 times per day 4. gabapentin 300 mg Oral cap 2 caps nightly 5. paroxetine HCl 40 mg Oral tab once daily 6. torsemide 20 mg oral tab twice a day 7. Sofia-Nicolas 0.8 mg oral tab daily ran out 8. atorvastatin 40 mg oral tab 1 tab once daily 9. calcitriol 0.25 mcg oral cap 2 caps once daily 10. Flexeril 10 mg Oral tab nightly 11. Iron CR Oral twice a day 12. Tradjenta 5 mg oral tab 1 tab once daily 13. Imdur Unknown Oral 14. Lantus 70 units AM and 60 units at night Sub-Q soln 70 unit twice a day 15. Vitamin D Oral 50,000 unit weekly - PMHx: Angina; Diabetes - IDDM: controlled; Stage IV kidney disease; Hypertension; - PSHx: Appendectomy; Cholecystectomy; Tonsillectomy; Hysterectomy; D & C; Cesearean Section; - Social history: Smoking status: Patient states former smoker of tobacco. No barriers to communication noted, The patient speaks fluent Lithuanian, Speaks appropriately for age. - Family history: Not pertinent. - : The pt / caregiver states he / she is not on anticoagulants. Home medication list is obtained from the patient. - Exposure Risk Screening:: None identified. Screenin:02 Screening information is obtained from the patient. Fall risk: No risks identified. pml Assistance ADL's: requires no assistance with activities of daily living. Abuse/DV Screen: The patient / caregiver reports he/she is: not in a situation that causes fear, pain or injury. Nutritional screening: No deficits noted. Advance Directives: Currently, there is no health care proxy. home support is adequate. Assessment: 15:02 General: Appears in no apparent distress, Behavior is appropriate for age, cooperative. pml Pain: Location: chest Pain currently is 4 out of 10 on a pain scale. Neurological: Level of Consciousness is awake, alert, Oriented to person, place, time. Cardiovascular: Capillary refill < 3 seconds Rhythm is sinus rhythm No ectopy. Cardiovascular: Chest pain began 1 day ago. Respiratory: Airway is patent Respiratory effort is even, unlabored. GI: Abdomen is non- distended obese, Bowel sounds present X 4 quads. Abd is soft X 4 quads. Derm: Skin is pink, warm & dry. 16:28 General: Appears in no apparent distress, Behavior is appropriate for age, cooperative. pml Pain: Location: chest Pain currently is 2 out of 10 on a pain scale. Neurological: Level of Consciousness is awake, alert, Oriented to person, place, time. Cardiovascular: Capillary refill < 3 seconds Rhythm is sinus rhythm No ectopy. Respiratory: Airway is patent Respiratory effort is even, unlabored. Derm: Skin is pink, warm & dry. Vital Signs: 14:22 BP 152 / 65 LA Sitting (auto/lg); Pulse 75; Resp 16; Temp 98.6(O); Pulse Ox 100% on rs6 R/A; Weight 122.92 kg (R); Height 5 ft. 10 in. (177.80 cm) (R); Pain 0/10; 14:51 BP 147 / 67 (auto/); pml 14:53 Pulse 72 MON; Pulse Ox 99% ; pml 15:19 BP 164 / 73 (auto/); pml 15:20 Pulse 76 MON; Pulse Ox 99% ; pml 15:34 Pulse 70 MON; Pulse Ox 95% ; pml 15:34 BP 134 / 63 (auto/); pml 15:49 Pulse 68 MON; Pulse Ox 95% ; pml 15:49 BP 123 / 58 (auto/); pml 16:04 Pulse 70 MON; Pulse Ox 95% ; pml 16:04 BP 122 / 57 (auto/); pml 16:29 BP 111 / 56; Pulse 72; Resp 18; Temp 97.9; Pulse Ox 99% on R/A; Pain 2/10; pml 14:22 Body Mass Index 38.88 (122.92 kg, 177.80 cm) [facility] Vitals: 14:22 Log In Time: March 30, 2016 at 14:14. rs6 ED Course: 14:22 Patient visited by Catrachita Craig PCA. rs6 14:22 Jeremy Cornell is Private Physician. rs6 14:22 Patient moved to Waiting rs6 14:23 Patient visited by Catrachita Craig PCA. rs6 14:23 Patient moved to Pre RCE rs6 14:34 Triage Initiated kr3 14:42 Yana Wallace,RN is Primary Nurse. kr3 14:42 Patient moved to 9 kr3 14:56 Andre Elliott FNP is PHCP. ke 14:57 Patient visited by Andre Elliott FNP. ke 14:57 Patient visited by Andre Elliott FNP. ke 15:02 The patient / caregiver is instructed regarding the plan of care and ED course. Patient howard has correct armband on for positive identification. Placed in gown. Bed in low position. Call light in reach. Side rails up X2. commercial technician on. Pulse ox on. NIBP on. 15:02 Inserted peripheral IV: 20gauge IV in left forearm and blood collected. Patient howard tolerated the procedure well. 15:03 Patient visited by Gregoria Rangel PCA. ct3 15:03 EKG done. (by ED staff). Reviewed by Andre HOLCOMB. ct3 15:43 Patient visited by Andre Elliott FNP. ke 16:00 [facility] Payment Agreement was scanned into [employer] and attached to record. ks16 16:11 Jeremy Cornell is Referral Physician. ke 16:29 Discontinued lock intact, bleeding controlled, pressure dressing applied, No pml redness/swelling at site. No procedures done that require assistance. 17:19 EKG-ADULT Returned. EDMS 02 06:08 Abdomen, Flat\E\Upright,PA Chest Returned. EDMS 11:51 T-Sheet-- Draft Copy was scanned into [employer] and attached to record. gb 11:51 ECG/EKG was scanned into [employer] and attached to record. gb Administered Medications: 03/30 15:15 Drug: ketorolac 30 mg [ketorolac 30 mg/mL (1 mL) injection solution (1 mL)] Route: IVP; pml Site: left forearm; 15:57 Drug: Ondansetron 4 mg [ondansetron HCl 2 mg/mL intravenous solution (2 mL)] Route: pml IVP; Site: left forearm; 15:58 Drug: NS 0.9% 1000 ml [sodium chloride 0.9 % injection syringe] Route: IV; Rate: 100 pml mL/hr; Site: left forearm; 16:30 Follow up: IV Status: Completed infusion; IV Intake: 200ml pml Intake: 16:30 IV: 200.00ml; Total: 200.00ml. pml Order Results: Lab Order: Amylase; SPEC'M 03/30/16 15:00 Test: AMYLASE; Value: 52; Range: 25-115; Units: U/L; Status: F Lab Order: Basic Metabolic Profile; SPEC'M 03/30/16 15:00 Test: GLUCOSE, FASTING; Value: 116; Range: 80-110; Abnormal: Above high normal; Units: MG/DL; Status: F Test: BLOOD UREA NITROGEN; Value: 43; Range: 7-18; Abnormal: Above high normal; Units: MG/DL; Status: F Test: CREATININE FOR GFR; Value: 2.96; Range: 0.55-1.02; Abnormal: Above high normal; Units: MG/DL; Status: F Test: GLOMERULAR FILTRATION RATE; Value: 17.0; Range: >45; Abnormal: Below low normal; Status: F Test: SODIUM LEVEL; Value: 138; Range: 136-145; Units: MEQ/L; Status: F Test: POTASSIUM SERUM; Value: 4.2; Range: 3.5-5.1; Units: MEQ/L; Status: F Test: CHLORIDE LEVEL; Value: 99; Range: 98-107; Units: MEQ/L; Status: F Test: CARBON DIOXIDE LEVEL; Value: 29; Range: 21-32; Units: MEQ/L; Status: F Test: ANION GAP; Value: 10; Range: 8-16; Units: MEQ/L; Status: F Test: CALCIUM LEVEL; Value: 8.7; Range: 8.8-10.2; Abnormal: Below low normal; Units: MG/DL; Status: F Test Note: ; Units are mL/min/1.73 m2 Chronic Kidney Disease Staging per NKF: Stage I & II GFR >=60 Normal to Mildly Decreased Stage III GFR 30-59 Moderately Decreased Stage IV GFR 15-29 Severely Decreased Stage V GFR <15 Very Little GFR Left ESRD GFR <15 on COMMERCIAL LOAN ANALYST Lab Order: CBC with Diff; SPEC'M 03/30/16 15:00 Test: WHITE BLOOD COUNT; Value: 8.6; Range: 4.0-10.0; Units: K/mm3; Status: F Test: RED BLOOD COUNT; Value: 3.34; Range: 4.00-5.40; Abnormal: Below low normal; Units: M/mm3; Status: F Test: HEMOGLOBIN; Value: 10.3; Range: 12.0-16.0; Abnormal: Below low normal; Units: g/dl; Status: F Test: HEMATOCRIT; Value: 30.7; Range: 36.0-47.0; Abnormal: Below low normal; Units: %; Status: F Test: MEAN CORPUSCULAR VOLUME; Value: 91.9; Range: 80.0-96.0; Units: fl; Status: F Test: MEAN CORPUSCULAR HEMOGLOBIN; Value: 30.7; Range: 27.0-33.0; Units: pg; Status: F Test: MEAN CORPUSCULAR HGB CONC; Value: 33.5; Range: 32.0-36.5; Units: g/dl; Status: F Test: RED CELL DISTRIBUTION WIDTH; Value: 14.7; Range: 11.5-14.5; Abnormal: Above high normal; Units: %; Status: F Test: PLATELET COUNT, AUTOMATED; Value: 190; Range: 150-450; Units: k/mm3; Status: F Test: NEUTROPHILS %; Value: 70.6; Range: 36.0-66.0; Abnormal: Above high normal; Units: %; Status: F Test: LYMPH %; Value: 18.7; Range: 24.0-44.0; Abnormal: Below low normal; Units: %; Status: F Test: MONO %; Value: 4.2; Range: 0.0-5.0; Units: %; Status: F Test: EOS %; Value: 5.0; Range: 0.0-3.0; Abnormal: Above high normal; Units: %; Status: F Test: BASO %; Value: 0.3; Range: 0.0-1.0; Units: %; Status: F Test: LARGE UNSTAINED CELL %; Value: 1.2; Range: 0.0-4.0; Units: %; Status: F Test: NEUTROPHILS #; Value: 6.1; Range: 1.8-7.7; Units: K/mm3; Status: F Test: LYMPH #; Value: 1.7; Range: 1.5-4.5; Units: K/mm3; Status: F Test: MONO #; Value: 0.4; Range: 0.0-0.8; Units: K/mm3; Status: F Test: EOS #; Value: 0.4; Range: 0.0-0.50; Units: K/mm3; Status: F Test: BASO #; Value: 0.0; Range: 0.0-0.2; Units: K/mm3; Status: F Test: LARGE UNSTAINED CELL #; Value: 0.1; Range: 0.0-0.4; Units: K/mm3; Status: F Lab Order: Lipase; SPEC'M 03/30/16 15:00 Test: LIPASE; Value: 194; Range: 73-393; Units: U/L; Status: F Lab Order: Liver Profile; [facility]' 03/30/16 15:00 Test: AST/SGOT; Value: 33; Range: 15-37; Units: U/L; Status: F Test: ALT/SGPT; Value: 30; Range: 12-78; Units: U/L; Status: F Test: ALKALINE PHOSPHATASE; Value: 121; Range: 45-117; Abnormal: Above high normal; Units: U/L; Status: F Test: BILIRUBIN,TOTAL; Value: 0.7; Range: 0.2-1.0; Units: MG/DL; Status: F Test: BILIRUBIN,DIRECT; Value: 0.2; Range: 0.0-0.2; Units: MG/DL; Status: F Test: TOTAL PROTEIN; Value: 7.5; Range: 6.4-8.2; Units: GM/DL; Status: F Test: ALBUMIN; Value: 3.7; Range: 3.2-5.2; Units: GM/DL; Status: F Test: ALBUMIN/GLOBULIN RATIO; Value: 0.97; Range: 1.00-1.93; Abnormal: Below low normal; Status: F Lab Order: CARDIAC INJURY PROFILE; [facility] 03/30/16 15:00 Test: CPK CREATINE PHOSPHOKINASE; Value: 128; Range: 26-192; Units: U/L; Status: F Test: CK-MB VALUE MASS; Value: 3.4; Range: 0.0-3.6; Units: NG/ML; Status: F Test: MB/CK RELATIVE INDEX; Value: 2.65; Range: < OR =4; Status: F Test Note: ; DIAGNOSIS CRITERIA MMB ng/ml Relative Index (RI) NON-AMI < or = 5 N/A [place] > 5 < or = 4 AMI > 5 > 4 Lab Order: TROPONIN; [facility] 03/30/16 15:00 Test: TROPONIN I; Value: < 0.02; Range: < 0.10; Units: NG/ML; Status: F Test Note: ; Troponin I Reference Interval for [employer] [facility] [email or web address] LOCI: 99th Percentile= 0.00-0.045 ng/ml Risk Stratification: <= 0.10 ng/ml Decreased Risk for Adverse Clinical Events. 0.10-1.50 ng/ml Increased Risk for Adverse Clinical Events. Evaluation of additional criterion and/or repeat testing in 2-6 hours is suggested to rule out myocardial damage. >= 1.50 ng/ml Indicative of Myocardial Injury. 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: ct; : 1950 Requested By: Vilma Oh; Order Number: [id number] Reading MD: Dhruv Marin; Measurements; Intervals [place]; Rate: 76 P: 48; OK: 202 QRS: 25; QRSD: 103 T: 25; QT: 385; QTc: 433; Interpretive Statements; SINUS RHYTHM; POSSIBLE PRIOR INFARCT; SIMILAR TO 03/28/15; Electronically Signed On 03-30-2016 16:58:31 EST by Dhruv Marin; Radiology Order: Abdomen, Flat\E\Upright,PA Chest Test: Abdomen, Flat\E\Upright,PA Chest REASON FOR EXAMINATION: vomiting; Abdominal series: Four views.; ; History: Vomiting.; ; Comparison study March 28, 2015.; ; Findings: Upright chest radiograph shows clear well inflated lungs. Pleural; angles are sharp. Heart size is not enlarged. There is no evidence of free; subdiaphragmatic air or infiltrate.; ; Supine and erect views of the abdomen reveal air and stool in a nondistended; colon. No small or large bowel dilation is seen. There is some vascular; calcification. There are clips in the right upper quadrant post; cholecystectomy.; ; Impression:; ; Normal bowel gas pattern. Clips in the right upper quadrant. No acute disease.; ; ; Signed by; Mihai Burrows MD 03/31/2016 02:22 P; Outcome: 16:11 Discharge ordered by Provider. 16:29 Discharge Assessment: Patient awake, alert and oriented x 3. No cognitive and/or pml functional deficits noted. Patient verbalized understanding of disposition instructions. patient administered narcotics - no. The following High Risk Discharge criteria are identified: None. Discharged to home ambulatory. Condition: good Condition: stable. Discharge instructions given to patient, Instructed on discharge instructions, follow up and referral plans. medication usage, Demonstrated understanding of instructions, medications, Pt was receptive of discharge instructions/ teaching. Prescriptions given X 1. No special radiology studies were completed. Property sent home with patient. 16:30 Patient left the ED. pml Signatures: Dispatcher [employer] EDMS Myrna Kyle, Reg Reg gb Andre Elliott, DEDICATED OWNER OPERATOR DEDICATED OWNER OPERATOR Suzanne Beebe RN RN kr3 Gregoria Rangel, DEPORTATION OFFICER DEPORTATION OFFICER ct3 Yana Wallace RN RN pml Schmitt, Rebecca, DEPORTATION OFFICER DEPORTATION OFFICER rs6 Yadira Julian, Reg Reg ks16 Corrections: (The following items were deleted from the chart) 16:30 14:51 BP 111 / 56; Pulse 72bpm; Resp 18bpm; Pulse Ox 99% RA; Temp 97.9F; Pain 2/10; pml pml Chart Complete MTDD
== END 2016-03-30 16:30 | disposition home or self-care (01) ==
LOC: M ED 14:20
DX: K52.9 Noninfective gastroenteritis and colitis, unspecified (principal); R53.1 Weakness; I12.9 Hypertensive chronic kidney disease with stage 1 through stage 4 chronic kidney disease, or unspecified chronic kidney disease; E11.22 Type 2 diabetes mellitus with diabetic chronic kidney disease; N18.4 Chronic kidney disease, stage 4 (severe); I20.9 Angina pectoris, unspecified; Z79.899 Other long term (current) drug therapy; Z79.82 Long term (current) use of aspirin; Z79.4 Long term (current) use of insulin; Z88.5 Allergy status to narcotic agent; Z88.8 Allergy status to other drugs, medicaments and biological substances; Z91.048 Other nonmedicinal substance allergy status; Z87.891 Personal history of nicotine dependence
CPT/HCPCS: 36415; 74022; 80048; 80076; 82150; 82550; 82553; 83690; 84484; 85025; 93005; 96361; 96374; 96375; 99285; J1885; J2405

== ENCOUNTER 2016-04-21 01:33 | Observation (INO) | payer MEDICARE ==
[~2016-04-21] VITALS: Ht 177.8 cm; Wt 127.1 kg
[2016-04-21] VITALS (7 sets, daily range): BP systolic 117–152; BP diastolic 57–73; PULSE 65–82
[2016-04-21] MEDS ORDERED: ASPIRIN 81 MG CHEW TABLET As Ordered ONE (01:48)
[2016-04-21 02:05] LABS: BASO % 0.4 % (0.0-1.0); EOS # 0.3 K/mm3 (0.0-0.50); EOS % 3.6 % (0.0-3.0); LARGE UNSTAINED CELL # 0.2 K/mm3 (0.0-0.4); LARGE UNSTAINED CELL % 2.4 % (0.0-4.0); LYMPH % 23.6 % (24.0-44.0); MEAN CORPUSCULAR HEMOGLOBIN 30.5 pg (27.0-33.0); MEAN CORPUSCULAR HGB CONC 32.9 g/dl (32.0-36.5); MEAN CORPUSCULAR VOLUME 92.8 fl (80.0-96.0); MONO # 0.3 K/mm3 (0.0-0.8); MONO % 3.9 % (0.0-5.0); NEUTROPHILS # 5.5 K/mm3 (1.8-7.7); PLATELET COUNT, AUTOMATED 208 k/mm3 (150-450); RED CELL DISTRIBUTION WIDTH 14.2 % (11.5-14.5); WHITE BLOOD COUNT 8.4 K/mm3 (4.0-10.0)
[2016-04-21] MEDS ORDERED: NITROGLYCERIN 2% OINT 1 GM *U/D* PKT As Ordered ONE ×2 (02:13→07:10)
[2016-04-21] MEDS ORDERED: METOPROLOL TART 25 MG TABLET As Ordered ONE (02:13)
[2016-04-21 02:23] LABS: ANION GAP 10 MEQ/L (8-16); BLOOD UREA NITROGEN 33 MG/DL (7-18); CALCIUM LEVEL 8.7 MG/DL (8.8-10.2); CARBON DIOXIDE LEVEL 32 MEQ/L (21-32); CHLORIDE LEVEL 100 MEQ/L (98-107); CREATININE FOR GFR 2.81 MG/DL (0.55-1.02); GLOMERULAR FILTRATION RATE 18.1 (>45); GLUCOSE, FASTING 130 MG/DL (80-110); SODIUM LEVEL 142 MEQ/L (136-145)
[2016-04-21 02:27] LABS: INR 0.98
[2016-04-21] MEDS ORDERED: MORPHINE 2 MG/ML 1ML SYRINGE As Ordered ONE (02:32)
[2016-04-21] MEDS ORDERED: diphenhydrAMINE INJ 50MG/ML VIAL (J1200) As Ordered ONE (02:43)
[2016-04-21] MEDS ORDERED: HEPARIN SOD (PORCINE) 5000 UNITS/ML VIAL As Ordered ONE (07:06)
[2016-04-21] MEDS ORDERED: HEPARIN 25,000 UNITS/250 ML D5W BAG (100 UNITS/ML) As Ordered ONE (07:07)
[2016-04-21] MEDS ORDERED: ASPI1TAB PO (07:47)
[2016-04-21] MEDS ORDERED: GABA300C3 PO (07:47)
[2016-04-21] MEDS ORDERED: ATOR40TA PO (07:49)
[2016-04-21] MEDS ORDERED: ISOS30TA4 PO (07:49)
[2016-04-21] MEDS ORDERED: LANTINJ4 SC ×2 (07:49)
[2016-04-21] MEDS ORDERED: RENATAB5 PO (07:50)
[2016-04-21] MEDS ORDERED: PARO40TA87 PO (07:50)
[2016-04-21] MEDS ORDERED: AMLO5TAB2 PO (07:50)
[2016-04-21] MEDS ORDERED: ALLO10TA PO (07:50)
--- NOTE | 2016-04-21 07:54 | ECGEPIP ---
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
[2016-04-21] MEDS ORDERED: ACETAMINOPHEN TAB 650MG DOSE (2X325MG) PO PRN (08:30)
[2016-04-21] MEDS ORDERED: GLUCAGON FOR INJ 1 MG VIAL (J1610) SC PRN (08:30)
[2016-04-21] MEDS ORDERED: GLUCOSE 4 GM CHEW TABLET PO PRN (08:30)
[2016-04-21] MEDS ORDERED: DEXTROSE 50% 50 ML SYRINGE IV PRN (08:30)
--- NOTE | 2016-04-21 08:33 | REP ---
SINGLE VIEW CHEST: There is no evidence of acute infiltrate. No pleural effusion is seen. The heart is normal in size. The mediastinal silhouette is unremarkable. The visualized osseous structures are intact. IMPRESSION: No acute pulmonary disease. Signed by Kenny Huber MD 04/21/2016 04:53 P
[2016-04-21] MEDS ORDERED: ISOSORBIDE MON. (IMDUR) 30 MG XR TAB PO SCH (09:00)
[2016-04-21] MEDS ORDERED: ENOXAPARIN 30 MG/0.3 ML SYR (J1650) SC SCH (09:00)
[2016-04-21] MEDS ORDERED: NITROGLYCERIN 0.4 MG SUBL TABLET SL PRN (09:00)
--- NOTE | 2016-04-21 09:40 | HPE ---
DATE OF ADMISSION: 04/21/2016 PRIMARY CARE PHYSICIAN: Dr. Jeremy Cornell ATTENDING PHYSICIAN: Dr. Miquel Ren CHIEF COMPLAINT: Chest pain HISTORY OF PRESENT ILLNESS: Norma Narayan is a 65-year-old female patient who follows with Dr. Jeremy Cornell at the [facility]. The patient has a history of coronary artery disease and does follow with cardiology. The patient has a history of cardiac catheterization in 2010. The patient is followed by Dr. Mckeon at [facility] and is being followed for chest pain. She saw Dr. Mckeon most recently in February. This is after undergoing cardiac PET scan that revealed a small reversible inferior lateral defect and drop in LVEF with stress. The patient also has a history of chronic kidney disease stage IV and follows with nephrology. She has not required dialysis yet. She apparently is also following with [facility] for consideration for renal transplant. She is followed for diabetes mellitus and is on basal insulin. She has a history of congestive heart failure. She has a history of iron deficiency anemia and hypertension as well. The patient presented to the emergency department after experiencing chest pain about midnight last night. She states that the chest pain was pretty constant at first but has decreased and is now intermittent. She received nitroglycerin in the ER without significant improvement. Workup in the ER showed troponins were negative times two. EKGs were unchanged and showed sinus rhythm. The patient is being admitted for further monitoring. Her tar pot man Dr. Mckeon will be consulted. I spoke with him and he felt the patient did not need therapeutic anticoagulation at present time as EKGs and troponins were unremarkable. He advised to continue with aspirin. MEDICATIONS: - Coreg 12.5 mg twice daily - Imdur 30 mg daily - calcitriol 0.5 mcg daily - Sofia-Nicolas tablets daily - spironolactone 25 mg daily - Drisdol 50,000 units weekly - Neurontin 600 mg daily at bedtime - Lantus 70 units in the morning, 60 units at night - Humulin sliding scale as directed - Flexeril 10 mg daily at bedtime - ferrous sulfate 324 mg twice daily - Paxil 40 mg daily - Tradjenta 5 mg daily - allopurinol 100 mg daily - amlodipine 5 mg daily - The patient has torsemide that she is instructed to take only for weight gain. ALLERGIES: CITRIC ACID, HYDROCODONE, SODIUM BICARBONATE, SULFA. 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 Coronary artery disease. Congestive heart failure. Hypertension. Hyperlipidemia. Depression. Fibromyalgia. Chronic kidney disease stage IV. Anemia of chronic disease/iron deficiency anemia. Hypertension. FAMILY HISTORY: Noncontributory. SOCIAL HISTORY: The patient denies alcohol use or smoking. REVIEW OF SYSTEMS: The patient notes chest pain. Did have some shortness of breath earlier but that has resolved. Denies fevers or chills. Denies weakness. Denies any abdominal pain. States some nausea. Denies vomiting and diarrhea. Denies any change in bowel or bladder habits. Denies any dizziness, headaches, loss of consciousness or weakness. Denies any blood in stool or urine. Denies any vision changes. Denies any urinary symptoms. PHYSICAL EXAMINATION: Vitals: Blood pressure is 120/78, heart rate 73, respiratory rate 28, temperature 96.8, oxygen saturation 100% on 2 liters. PHYSICAL EXAMINATION: The patient is alert, no acute distress. No respiratory distress. HEENT: Head is normocephalic, atraumatic. Moist mucous membranes. Neck supple. No cervical lymphadenopathy. No jugular venous distention (JVD). Chest: Clear to auscultation bilaterally. No wheezes, rales, rhonchi or crackles. Heart: Regular rate and rhythm. Abdomen: Positive bowel sounds, soft, nontender. No rebound or guarding. Extremities: Trace edema bilateral lower extremities. Skin is warm and dry. Neuro: Nonfocal grossly. LABORATORY DATA: WBC 8.4, hemoglobin 10.4, hematocrit 31.6, platelets 208. Sodium 142, potassium 4.0, chloride 100, carbon dioxide 32, BUN 33, creatinine 2.81, glucose 130, calcium 8.7. CK 87, 72, CK-MB 3.7, 2.8, CK-MB relative index 4.25, 3.88. Troponin I less than 0.02, less than 0.02. PT 13.1, INR 0.98, PTT is 30.0. Chest x-ray: No acute pulmonary disease. EKG sinus rhythm times two. ASSESSMENT/PLAN: 1. Chest pain. Dr. Mckeon is consulted and will see the patient today. Case was discussed with him. The patient will continue aspirin 324 mg daily. The patient will be placed on the PCU on telemetry for continued monitoring. 2. Hypertension. Continue Coreg, Imdur and amlodipine. Hold parameters in place. 3. Chronic kidney disease stage IV. The patient does follow with nephrology as an outpatient. Continue to monitor renal function. May need to consult nephrology if renal function worsens. 4. Hyperlipidemia. Continue atorvastatin. 5. Diabetes mellitus type 2 placed on sliding-scale insulin. Continue basal insulin 50 units twice a day. (The patient is normally on Lantus 70 in the morning and 60 units at night time). The patient is also normally on Tradjenta as an outpatient. MTDD
--- NOTE | 2016-04-21 09:57 | EDDOCDS ---
Physician Documentation [facility] Name: Norma Narayan Age: 65 yrs Sex: Female : 1950 Arrival Date: 04/21/2016 Time: 01:33 Bed 3 Private MD: Disposition: 04/21/16 07:12 Hospitalization ordered by Miquel Ren for Inpatient Admission. Preliminary diagnosis is Unstable angina. - Bed requested for PCU. - Status is Inpatient Admission. srm - Condition is Stable. - Problem is new. - Symptoms have improved. Historical: - Allergies: Adhesives (Rash); [place] (Hives); Vicodin (itching); - Home Meds: 1. aspirin 81 mg Oral chew 1 tab once daily 2. atorvastatin 40 mg oral tab 1 tab once daily 3. calcitriol 0.25 mcg oral tab 2 caps once daily 4. carvedilol 12.5 mg oral tab 2 times per day 5. Flexeril 10 mg Oral tab nightly 6. gabapentin 300 mg Oral tab 2 caps nightly 7. Imdur Oral 8. Iron CR Oral twice a day 9. Lantus 70 units AM and 60 units at night Sub-Q soln 70 unit twice a day 10. paroxetine HCl 40 mg Oral tab once daily 11. Sofia-Nicolas 0.8 mg oral tab daily ran out 12. spironolactone 25 mg Oral tab once daily 13. torsemide 20 mg oral tab twice a day for only takes when weight goes up 14. Tradjenta 5 mg oral tab 1 tab once daily 15. Vitamin D Oral 09720 unit weekly - PMHx: Angina; Diabetes - IDDM: controlled; Hypertension; Stage IV kidney disease; - PSHx: Appendectomy; Cholecystectomy; Tonsillectomy; Hysterectomy; D & C; Cesearean Section; - Social history: Smoking status: Patient states former smoker of tobacco. No barriers to communication noted, The patient speaks fluent [place], Speaks appropriately for age, Preferred Language: Stateless. - Family history: Not pertinent. - : The pt / caregiver states he / she is not on anticoagulants. Home medication list is obtained from the patient. - Exposure Risk Screening:: None identified. Vital Signs: 04/21 01:40 BP 165 / 77 (auto/); ja5 01:41 BP 165 / 77; Pulse 82; Resp 20; Temp 98.6(TE); Pulse Ox 100% on R/A; Weight 113.4 kg / jarrett 250 lbs (R); Height 5 ft. 10 in. (177.80 cm) (R); 01:41 Pulse 79 MON; Pulse Ox 98% ; ja5 01:54 BP 154 / 72 (auto/); mv5 01:54 Pulse 80 MON; Pulse Ox 98% ; mv5 02:00 BP 142 / 55 (auto/); mv5 02:01 Pulse 76 MON; Pulse Ox 97% ; mv5 02:15 BP 105 / 58 (auto/); mv5 02:15 Pulse 77 MON; Pulse Ox 97% ; mv5 02:28 Pulse 74 MON; Pulse Ox 97% ; ja5 02:29 BP 140 / 66 (auto/); ja5 02:30 BP 133 / 63 (auto/); mv5 02:30 Pulse 77 MON; Pulse Ox 98% ; mv5 02:45 BP 139 / 65 (auto/); mv5 02:45 Pulse 74 MON; Pulse Ox 96% on 2 lpm NC; mv5 03:00 BP 147 / 69 (auto/); mv5 03:00 Pulse 77 MON; Pulse Ox 97% on 2 lpm NC; mv5 03:15 BP 121 / 72 (auto/); mv5 03:15 Pulse 68 MON; Pulse Ox 98% on 2 lpm NC; mv5 03:30 BP 114 / 57 (auto/); mv5 03:30 Pulse 67 MON; Pulse Ox 98% on 2 lpm NC; mv5 03:45 BP 116 / 58 (auto/); mv5 03:45 Pulse 66 MON; Pulse Ox 99% on 2 lpm NC; mv5 04:00 BP 122 / 61 (auto/); mv5 04:00 Pulse 65 MON; Pulse Ox 99% on 2 lpm NC; mv5 04:30 BP 136 / 67 (auto/); mv5 04:30 Pulse 66 MON; Pulse Ox 99% ; mv5 04:45 BP 124 / 58 (auto/); mv5 04:45 Pulse Ox 99% ; mv5 05:03 BP 112 / 59 (auto/); mv5 05:03 Pulse 64 MON; Pulse Ox 100% ; mv5 05:15 BP 141 / 66 (auto/); mv5 05:15 Pulse 63 MON; Pulse Ox 99% ; mv5 05:30 BP 149 / 70 (auto/); mv5 05:30 Pulse 63 MON; Pulse Ox 99% ; mv5 05:42 Pulse 73 MON; Pulse Ox 100% ; ja5 05:45 BP 208 / 102 (auto/); ja5 05:59 Pulse 62 MON; Pulse Ox 100% ; ja5 06:00 Pulse 64 MON; Pulse Ox 100% ; mv5 06:00 BP 198 / 154 (auto/); ja5 06:15 BP 206 / 103 (auto/); ja5 06:15 Pulse 64 MON; Pulse Ox 100% ; ja5 06:30 BP 114 / 59 (auto/); ja5 06:30 Pulse 62 MON; Pulse Ox 100% ; ja5 06:45 BP 126 / 68 (auto/); ja5 06:45 Pulse 64 MON; Pulse Ox 100% ; ja5 07:00 BP 157 / 72 (auto/); ja5 07:00 Pulse 65 MON; Pulse Ox 100% ; ja5 07:12 Pulse 63 MON; Pulse Ox 100% ; ja5 07:13 BP 128 / 70 (auto/); ja5 07:15 BP 120 / 78; Pulse 73; Resp 20; Temp 96.8(A); Pulse Ox 100% on 2 lpm NC; Pain 4/10; ja5 07:15 Pulse 65 MON; Pulse Ox 100% ; ja5 07:21 BP 145 / 67 (auto/); ja5 07:30 BP 117 / 71 (auto/); ja5 07:31 Pulse 65 MON; Pulse Ox 99% ; ja5 07:44 Pulse 63 MON; Pulse Ox 96% ; ja5 07:45 BP 145 / 71 (auto/); ja5 07:59 Pulse 62 MON; Pulse Ox 98% ; ja5 08:00 BP 133 / 65 (auto/); ja5 08:14 Pulse 63 MON; Pulse Ox 98% ; ja5 08:15 BP 143 / 71 (auto/); ja5 08:25 Pain 3/10; ja5 08:29 Pulse 80 MON; Pulse Ox 100% ; ja5 08:30 BP 122 / 60 (auto/); ja5 08:44 Pulse 63 MON; Pulse Ox 100% ; ja5 08:45 BP 147 / 68 (auto/); ja5 09:14 Pulse 63 MON; Pulse Ox 100% ; ja5 09:15 BP 155 / 70 (auto/); ja5 09:18 BP 155 / 70; Pulse 93; Resp 16; Temp 96.9(A); Pulse Ox 97% on 2 lpm NC; Pain 2/10; ja5 09:29 Pulse 50 MON; Pulse Ox 100% ; ja5 09:30 BP 142 / 72 (auto/); ja5 09:45 BP 158 / 71 (auto/); ja5 09:45 Pulse 62 MON; Pulse Ox 100% ; ja5 01:41 Body Mass Index 35.87 (113.40 kg, 177.80 cm) jarrett MDM: 01:36 Customer Service Receptionist/Pulse Ox/q 30 min VS ordered. cz 01:36 IV Saline Lock ordered. cz 01:36 Rhythm Strip to chart ordered. cz 01:36 Undress patient appropriately for examination ordered. cz 01:36 Basic Metabolic Profile Ordered. EDMS 01:36 CBC with Diff Ordered. EDMS 01:36 Cardiac Injury Profile Ordered. EDMS 01:36 Troponin Ordered. EDMS 01:37 ECG WITH READING ER PHYS+CARDIAG ordered. EDMS 01:46 Aspirin 324 mg PO once ordered. cs11 01:48 Chest, 1 View Ordered. EDMS 02:09 Nitro-Bid Ointment 2 % 0.5 inches Transdermal once ordered. cs11 02:09 Metoprolol (Tartrate) 25 mg PO once ordered. cs11 02:12 morphine 2 mg IVP once ordered. cs11 02:13 Pt & Aptt Ordered. EDMS 02:32 Oxygen at 4L/Min NC or Home dosage ordered. cs11 02:32 Basic Metabolic Profile Reviewed. cs11 02:32 CBC with Diff Reviewed. cs11 02:32 Cardiac Injury Profile Reviewed. cs11 02:32 Troponin Reviewed. cs11 02:32 Pt & Aptt Reviewed. cs11 02:41 diphenhydrAMINE 12.5 mg IVP once ordered. cs11 03:28 Financial registration complete. hs2 03:59 [facility] Payment Agreement was scanned into [employer] and attached to record. hs2 04:07 Misc Radial Drill Press Set Up Operator Order ordered. cs11 04:09 [facility] Up Operator Order complete. jlm 04:10 TROPONIN Ordered. EDMS 04:10 CARDIAC INJURY PROFILE Ordered. EDMS 04:11 ELECTROCARDIOGRAM ADULT ordered. EDMS 06:09 TROPONIN Reviewed. cs11 06:09 CARDIAC INJURY PROFILE Reviewed. cs11 06:41 Nitro-Bid Ointment 2 % 0.5 inches Transdermal once ordered. cs11 06:43 heparin (Thrombolytic Protocol, 12 units/kg/hr)) 73433 units IV at 1000 units/hr once; cs11 Max. dose 1000units/hr. No Lovenox past 18hrs/ draw labs. ordered. 06:43 heparin (Thrombolytic Protocol, 60 units/kg)) 4000 units IVP once; max 4000 units. cs11 Ensure no Lovenox in past 18hr, labs drawn ordered. 07:13 BED REQUEST+ADM ordered. EDMS 07:40 Fingerstick Blood Sugar Ordered. EDMS 08:47 Admission / Observation Status ordered. EDMS 08:48 2 GRAM SODIUM DIET ordered. EDMS 08:48 CARDIAC MARKER PANEL Ordered. EDMS 08:48 CARDIAC MARKER PANEL Ordered. EDMS Point of Care Testing: Blood Glucose: 07:32 Blood Glucose: 64 mg/dL; jc4 Ranges: Administered Medications: 01:54 Drug: Aspirin 324 mg [aspirin 81 mg chewable tablet (4 tabs)] Route: PO; mv5 02:20 Follow up: Response: No Adverse Reaction mv5 02:20 Drug: Nitro-Bid 0.5 inches [Nitro-Bid 2 % transdermal ointment (0.5 inches)] Route: mv5 Transdermal; Site: anterior chest wall; 02:20 Drug: Metoprolol 25 mg [metoprolol tartrate 25 mg tablet (1 tabs)] Route: PO; mv5 02:37 Drug: morphine 2 mg [morphine 2 mg/mL intravenous cartridge (1 mL)] Route: IVP; Site: mv5 left hand; 02:45 Drug: diphenhydrAMINE 12.5 mg [diphenhydramine 50 mg/mL injection solution (0.25 mL)] mv5 Route: IVP; Site: left hand; 04:13 Follow up: Response: No Adverse Reaction mv5 07:25 Drug: heparin (Thrombolytic Protocol, 60 units/kg)) 4000 units [heparin (porcine) 5,000 ja5 unit/mL injection solution (0.8 mL)] {Co-Signature: jc4 (Layne Jean RN).} Route: IVP; Site: left hand; 07:30 Drug: heparin (Thrombolytic Protocol, 12 units/kg/hr)) 37843 units [heparin (porcine) pineda 25,000 unit/250 mL (100 unit/mL) in dextrose 5 % IV] {Co-Signature: jc4 (Layne Jean RN).} Route: IV; Rate: 1000 units/hr; Site: left hand; 07:33 Drug: Nitro-Bid 0.5 inches [Nitro-Bid 2 % transdermal ointment (0.5 inches)] Route: ja5 Transdermal; Site: anterior chest wall; 08:25 Follow up: Pain 05/02 Adult pineda Signatures: Dispatcher [employer] EDMS Jazmin Clayton, Brine Process Operator Unit deg Haydee Alcaraz RN RN srm Inocencio Bangura RN RN Mena Burgos RN RN lf1 Martin Gerber, DO cs11 Vinicius RossiRN RN Maxine Jiménez, Brine Process Operator Unit jlElizabeth Wallace, Reg Reg hs2 Zofia Phan RN ja5 Tejal Childs RN mv5 Layne Jean RN jc4 The chart was reviewed and I authenticate all verbal orders and agree with the evaluation and treatment provided.Attachments: 03:59 [facility] Payment Agreement hs2 MTDD
--- NOTE | 2016-04-21 09:57 | EDDOCDS ---
Nurse's Notes [facility] Name: Carmelita Narayan Age: 65 yrs Sex: Female : 1950 Arrival Date: 04/21/2016 Time: 01:33 Bed 3 Private MD: Diagnosis: Unstable angina Presentation: 04/21 01:38 Presenting complaint: Patient states: Chest pain with shortness of breath, nausea and lf1 diaphoresis that began at midnight and has been unrelieved with three nitro, pt. reports pain is mid to left chest radiating into left neck, left breast and left arm. Pain is currently 4/10. Aspirin was not taken prior to arrival. Baby aspirin at 1820 81 mg. Adult Sepsis Screening: The patient does not have new or worsening altered mentation. Patient's respiratory rate is less than 22. Systolic blood pressure is greater than 100. Patient has a qSOFA score of 0- Negative Sepsis Screen. Suicide/Homicide risk assessment- the patient denies having any suicidal and/or homicidal ideations and does not present with any other emotional, behavioral or mental health complaints. 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 Transition of care: patient was not received from another setting of care. 01:38 Acuity: LOREN Level 2 lf1 01:38 Method Of Arrival: Walkin/Carried/Asstd lf1 Triage Assessment: 01:45 General: Appears obese, uncomfortable, Behavior is anxious, cooperative, restless. lf1 Pain: Location: anterior aspect of left upper chest, mid-sternal area and left breast Pain currently is 4 out of 10 on a pain scale. Pain radiates to left arm, left neck. Pt Declines HIV testing. The patient is triaged at the bedside. See Assessment in Nurses Notes section of ED record. Neurological: Level of Consciousness is awake, alert, Oriented to person, place, time. EENT: No deficits noted. Cardiovascular: Chest pain is described as Pain is 4 out of 10 on a pain scale. radiates to left arm(s) neck episodes are continuous began 2 hours prior to arrival. Respiratory: Respiratory effort is even, unlabored, Reports shortness of breath. GI: Abdomen is obese, Reports nausea. Derm: Skin is normal. Historical: - Allergies: Adhesives (Rash); Mar[place] (Hives); Vicodin (itching); - Home Meds: 1. aspirin 81 mg Oral chew 1 tab once daily 2. atorvastatin 40 mg oral tab 1 tab once daily 3. calcitriol 0.25 mcg oral tab 2 caps once daily 4. carvedilol 12.5 mg oral tab 2 times per day 5. Flexeril 10 mg Oral tab nightly 6. gabapentin 300 mg Oral tab 2 caps nightly 7. Imdur Oral 8. Iron CR Oral twice a day 9. Lantus 70 units AM and 60 units at night Sub-Q soln 70 unit twice a day 10. paroxetine HCl 40 mg Oral tab once daily 11. Sofia-Nicolas 0.8 mg oral tab daily ran out 12. spironolactone 25 mg Oral tab once daily 13. torsemide 20 mg oral tab twice a day for only takes when weight goes up 14. Tradjenta 5 mg oral tab 1 tab once daily 15. Vitamin D Oral 29064 unit weekly - PMHx: Angina; Diabetes - IDDM: controlled; Hypertension; Stage IV kidney disease; - PSHx: Appendectomy; Cholecystectomy; Tonsillectomy; Hysterectomy; D & C; Cesearean Section; - Social history: Smoking status: Patient states former smoker of tobacco. No barriers to communication noted, The patient speaks fluent Croatian, Speaks appropriately for age, Preferred Language: Croatian. - Family history: Not pertinent. - : The pt / caregiver states he / she is not on anticoagulants. Home medication list is obtained from the patient. - Exposure Risk Screening:: None identified. Screenin:54 Advance Directives: There is no active DNR order. mv5 01:59 Screening information is obtained from the patient. Fall risk: No risks identified. jmb Assistance ADL's: requires no assistance with activities of daily living. Abuse/DV Screen: The patient / caregiver reports he/she is: not in a situation that causes fear, pain or injury. Nutritional screening: No deficits noted. home support is adequate. Assessment: 01:59 General: Appears uncomfortable, Behavior is appropriate for age, cooperative. Pain: jmb Location: chest and left breast and mid-sternal area and anterior aspect of left upper chest Pain currently is 8 out of 10 on a pain scale. Neurological: Level of Consciousness is awake, alert, obeys commands, Oriented to person, place, time, Tin Pourer are equal bilaterally Speech is normal, Facial symmetry appears normal, Facial symmetry: tongue is midline. Cardiovascular: Capillary refill < 3 seconds Heart tones S1 S2 present Pulses are all present. Rhythm is irregular. Respiratory: Airway is patent Respiratory effort is even, unlabored, Respiratory pattern is regular, symmetrical, Breath sounds are diminished bilaterally. GI: Abdomen is obese, Bowel sounds present X 4 quads. Abd is soft and non tender X 4 quads. Derm: Skin is normal. Musculoskeletal: Range of motion intact in all extremities. 02:22 General: Appears in no apparent distress, uncomfortable, Behavior is cooperative, mv5 pleasant. Pain: Location: mid-sternal area and left breast Pain currently is 4 out of 10 on a pain scale. Neurological: Level of Consciousness is awake, alert, Oriented to person, place, time. Cardiovascular: Capillary refill < 3 seconds Heart tones S1 S2 present Edema pitting to left midcalf, left ankle, left foot, right midcalf, right ankle and right foot Pulses are all present. Rhythm is sinus rhythm No ectopy. Respiratory: Airway is patent Respiratory effort is even, unlabored, Respiratory pattern is regular, symmetrical. Derm: Skin is pink, warm & dry. 02:49 General: Pt appears to have localized reaction after morphine administration. MD aware, mv5 pt medicated for itching. Given ice pack as requested.. 04:02 General: Appears in no apparent distress. Cardiovascular: Rhythm is sinus rhythm No mv5 ectopy. Derm: Skin is pink, warm & dry. 05:11 General: Appears in no apparent distress. Neurological: Level of Consciousness is mv5 awake, alert. Cardiovascular: Rhythm is sinus rhythm No ectopy. Respiratory: Airway is patent Respiratory effort is even, unlabored, Respiratory pattern is regular, symmetrical. Derm: Skin is pink, warm & dry. 06:11 General: Appears in no apparent distress. Neurological: Level of Consciousness is mv5 awake, alert, Oriented to person, place, time. Cardiovascular: Rhythm is sinus rhythm No ectopy. Respiratory: No deficits noted. Derm: Skin is pink, warm & dry. 07:16 General: Appears in no apparent distress, Behavior is appropriate for age, cooperative. ja5 Pain: Location: chest Pain currently is 4 out of 10 on a pain scale. Neurological: Level of Consciousness is awake, alert, Oriented to person, place, time. Cardiovascular: Capillary refill < 3 seconds Heart tones S1 S2 present Rhythm is sinus rhythm No ectopy. Cardiovascular: Chest pain is described as episodes last night midnight. Respiratory: Airway is patent Respiratory effort is even, unlabored, Respiratory pattern is regular, symmetrical, Breath sounds are clear bilaterally. GI: Abdomen is obese. Derm: Skin is pink, warm & dry. 07:43 General: Dr. Hernandez aware of patient's FSBS. [place] juice given per MD order. jc4 08:25 General: Patient laying in stretcher, using her cell phone, alert and oriented states ja5 that her chest pain has "decreased to a 2 or a 3", SR on equipment monitor phototypesetting, respirations even and unlabored, color is pink. is at bedside, bed in low position, call fox in reach. . 09:47 General: Appears in no apparent distress, comfortable, Behavior is appropriate for age, ja5 cooperative. Pain: Location: chest Pain currently is 2 out of 10 on a pain scale. Neurological: Level of Consciousness is awake, alert, Oriented to person, place, time. Cardiovascular: Capillary refill < 3 seconds Heart tones S1 S2 present Rhythm is sinus rhythm No ectopy. Respiratory: Airway is patent Respiratory effort is even, unlabored, Respiratory pattern is regular, symmetrical, Breath sounds are clear bilaterally. Derm: Skin is pink, warm & dry. normal. Vital Signs: 01:40 BP 165 / 77 (auto/); ja5 01:41 BP 165 / 77; Pulse 82; Resp 20; Temp 98.6(TE); Pulse Ox 100% on R/A; Weight 113.4 kg jarrett (R); Height 5 ft. 10 in. (177.80 cm) (R); 01:41 Pulse 79 MON; Pulse Ox 98% ; ja5 01:54 BP 154 / 72 (auto/); mv5 01:54 Pulse 80 MON; Pulse Ox 98% ; mv5 02:00 BP 142 / 55 (auto/); mv5 02:01 Pulse 76 MON; Pulse Ox 97% ; mv5 02:15 BP 105 / 58 (auto/); mv5 02:15 Pulse 77 MON; Pulse Ox 97% ; mv5 02:28 Pulse 74 MON; Pulse Ox 97% ; ja5 02:29 BP 140 / 66 (auto/); ja5 02:30 BP 133 / 63 (auto/); mv5 02:30 Pulse 77 MON; Pulse Ox 98% ; mv5 02:45 BP 139 / 65 (auto/); mv5 02:45 Pulse 74 MON; Pulse Ox 96% on 2 lpm NC; mv5 03:00 BP 147 / 69 (auto/); mv5 03:00 Pulse 77 MON; Pulse Ox 97% on 2 lpm NC; mv5 03:15 BP 121 / 72 (auto/); mv5 03:15 Pulse 68 MON; Pulse Ox 98% on 2 lpm NC; mv5 03:30 BP 114 / 57 (auto/); mv5 03:30 Pulse 67 MON; Pulse Ox 98% on 2 lpm NC; mv5 03:45 BP 116 / 58 (auto/); mv5 03:45 Pulse 66 MON; Pulse Ox 99% on 2 lpm NC; mv5 04:00 BP 122 / 61 (auto/); mv5 04:00 Pulse 65 MON; Pulse Ox 99% on 2 lpm NC; mv5 04:30 BP 136 / 67 (auto/); mv5 04:30 Pulse 66 MON; Pulse Ox 99% ; mv5 04:45 BP 124 / 58 (auto/); mv5 04:45 Pulse Ox 99% ; mv5 05:03 BP 112 / 59 (auto/); mv5 05:03 Pulse 64 MON; Pulse Ox 100% ; mv5 05:15 BP 141 / 66 (auto/); mv5 05:15 Pulse 63 MON; Pulse Ox 99% ; mv5 05:30 BP 149 / 70 (auto/); mv5 05:30 Pulse 63 MON; Pulse Ox 99% ; mv5 05:42 Pulse 73 MON; Pulse Ox 100% ; ja5 05:45 BP 208 / 102 (auto/); ja5 05:59 Pulse 62 MON; Pulse Ox 100% ; ja5 06:00 Pulse 64 MON; Pulse Ox 100% ; mv5 06:00 BP 198 / 154 (auto/); ja5 06:15 BP 206 / 103 (auto/); ja5 06:15 Pulse 64 MON; Pulse Ox 100% ; ja5 06:30 BP 114 / 59 (auto/); ja5 06:30 Pulse 62 MON; Pulse Ox 100% ; ja5 06:45 BP 126 / 68 (auto/); ja5 06:45 Pulse 64 MON; Pulse Ox 100% ; ja5 07:00 BP 157 / 72 (auto/); ja5 07:00 Pulse 65 MON; Pulse Ox 100% ; ja5 07:12 Pulse 63 MON; Pulse Ox 100% ; ja5 07:13 BP 128 / 70 (auto/); ja5 07:15 BP 120 / 78; Pulse 73; Resp 20; Temp 96.8(A); Pulse Ox 100% on 2 lpm NC; Pain 4/10; ja5 07:15 Pulse 65 MON; Pulse Ox 100% ; ja5 07:21 BP 145 / 67 (auto/); ja5 07:30 BP 117 / 71 (auto/); ja5 07:31 Pulse 65 MON; Pulse Ox 99% ; ja5 07:44 Pulse 63 MON; Pulse Ox 96% ; ja5 07:45 BP 145 / 71 (auto/); ja5 07:59 Pulse 62 MON; Pulse Ox 98% ; ja5 08:00 BP 133 / 65 (auto/); ja5 08:14 Pulse 63 MON; Pulse Ox 98% ; ja5 08:15 BP 143 / 71 (auto/); ja5 08:25 Pain 3/10; ja5 08:29 Pulse 80 MON; Pulse Ox 100% ; ja5 08:30 BP 122 / 60 (auto/); ja5 08:44 Pulse 63 MON; Pulse Ox 100% ; ja5 08:45 BP 147 / 68 (auto/); ja5 09:14 Pulse 63 MON; Pulse Ox 100% ; ja5 09:15 BP 155 / 70 (auto/); ja5 09:18 BP 155 / 70; Pulse 93; Resp 16; Temp 96.9(A); Pulse Ox 97% on 2 lpm NC; Pain 2/10; ja5 09:29 Pulse 50 MON; Pulse Ox 100% ; ja5 09:30 BP 142 / 72 (auto/); ja5 09:45 BP 158 / 71 (auto/); ja5 09:45 Pulse 62 MON; Pulse Ox 100% ; ja5 01:41 Body Mass Index 35.87 (113.40 kg, 177.80 cm) jarrett Vitals: 00:35 Log In Time: April 21, 2016 at 00:35. lf1 ED Course: 01:34 Patient visited by Elizabeth Betancur Reg. hs2 01:34 Patient moved to Waiting hs2 01:35 Tejal ChildsRN is Primary Nurse. cz 01:35 Patient moved to 3 cz 01:40 Triage Initiated lf1 01:41 Pt greeted and oriented to ED. Patient advised of names of staff involved in care, jarrett location of call fox, wait times and NPO status. Accompanied by Family Member, Patient has correct armband on for positive identification. Placed in psych safe attire. Bed in low position. Call light in reach. Side rails up X2. athletic monitor on. Pulse ox on. NIBP on. 01:41 EKG done. (by ED staff). Reviewed by Jorge Caballero DO. jarrett 01:45 Jorge Caballero DO is Attending Physician. cs11 01:45 Patient visited by Jorge Caballero DO. cs11 01:59 The patient / caregiver is instructed regarding the plan of care and ED course. jmb 01:59 Inserted saline lock: 20 gauge in left hand and blood collected. The patient tolerated jmb the procedure well. Labs drawn. (by ED staff). Sent per order to lab. 02:02 Patient visited by Vinicius Rossi RN. jmb 02:39 Patient visited by Tejal Childs RN. mv5 02:49 O2 via nasal cannula \\T\\ 2L/min. mv5 03:10 Patient visited by Tejal Childs RN. mv5 03:59 [facility] Payment Agreement was scanned into [employer] and attached to record. hs2 04:02 Patient visited by Tejal Childs RN. mv5 05:05 Patient visited by Jill Benjamin, ARUNA. cln 05:05 CARDIAC INJURY PROFILE Sent. cln 05:05 TROPONIN Sent. cln 05:05 EKG done. (by ED staff). Reviewed by Jorge Caballero DO. cln 06:10 Patient visited by Tejal Childs RN. mv5 07:07 Primary Nurse role handed off by Tejal Childs RN mv5 07:12 Miquel Ren MD is Hospitalizing Provider. cs11 07:15 Zofia Phan,NICK is Primary Nurse. ja5 08:11 EKG-ADULT Returned. EDMS 08:29 Patient visited by Layne Jean RN. jc4 08:39 Chest, 1 View Returned. EDMS 09:43 No procedures done that require assistance. 5 Administered Medications: 01:54 Drug: Aspirin 324 mg [aspirin 81 mg chewable tablet (4 tabs)] Route: PO; mv5 02:20 Follow up: Response: No Adverse Reaction mv5 02:20 Drug: Nitro-Bid 0.5 inches [Nitro-Bid 2 % transdermal ointment (0.5 inches)] Route: mv5 Transdermal; Site: anterior chest wall; 02:20 Drug: Metoprolol 25 mg [metoprolol tartrate 25 mg tablet (1 tabs)] Route: PO; mv5 02:37 Drug: morphine 2 mg [morphine 2 mg/mL intravenous cartridge (1 mL)] Route: IVP; Site: mv5 left hand; 02:45 Drug: diphenhydrAMINE 12.5 mg [diphenhydramine 50 mg/mL injection solution (0.25 mL)] 5 Route: IVP; Site: left hand; 04:13 Follow up: Response: No Adverse Reaction 5 07:25 Drug: heparin (Thrombolytic Protocol, 60 units/kg)) 4000 units [heparin (porcine) 5,000 ja5 unit/mL injection solution (0.8 mL)] {Co-Signature: jc4 (Layne Jean RN).} Route: IVP; Site: left hand; 07:30 Drug: heparin (Thrombolytic Protocol, 12 units/kg/hr)) 58127 units [heparin (porcine) ja5 25,000 unit/250 mL (100 unit/mL) in dextrose 5 % IV] {Co-Signature: jc4 (Layne Jean RN).} Route: IV; Rate: 1000 units/hr; Site: left hand; 07:33 Drug: Nitro-Bid 0.5 inches [Nitro-Bid 2 % transdermal ointment (0.5 inches)] Route: ja5 Transdermal; Site: anterior chest wall; 08:25 Follow up: Pain 05/02 Adult [facility] Point of Care Testing: Blood Glucose: 07:32 Blood Glucose: 64 mg/dL; jc4 Ranges: Order Results: Lab Order: Basic Metabolic Profile; SPEC'M 04/21/16 01:55 Test: GLUCOSE, FASTING; Value: 130; Range: 80-110; Abnormal: Above high normal; Units: MG/DL; Status: F Test: BLOOD UREA NITROGEN; Value: 33; Range: 7-18; Abnormal: Above high normal; Units: MG/DL; Status: F Test: CREATININE FOR GFR; Value: 2.81; Range: 0.55-1.02; Abnormal: Above high normal; Units: MG/DL; Status: F Test: GLOMERULAR FILTRATION RATE; Value: 18.1; Range: >45; Abnormal: Below low normal; Status: F Test: SODIUM LEVEL; Value: 142; Range: 136-145; Units: MEQ/L; Status: F Test: POTASSIUM SERUM; Value: 4.0; Range: 3.5-5.1; Units: MEQ/L; Status: F Test: CHLORIDE LEVEL; Value: 100; Range: 98-107; Units: MEQ/L; Status: F Test: CARBON DIOXIDE LEVEL; Value: 32; Range: 21-32; Units: MEQ/L; Status: F Test: ANION GAP; Value: 10; Range: 8-16; Units: MEQ/L; Status: F Test: CALCIUM LEVEL; Value: 8.7; Range: 8.8-10.2; Abnormal: Below low normal; Units: MG/DL; Status: F Test Note: ; Units are mL/min/1.73 m2 Chronic Kidney Disease Staging per NKF: Stage I & II GFR >=60 Normal to Mildly Decreased Stage III GFR 30-59 Moderately Decreased Stage IV GFR 15-29 Severely Decreased Stage V GFR <15 Very Little GFR Left ESRD GFR <15 on BODY TECHNICIAN Lab Order: CBC with Diff; SPEC'M 04/21/16 01:55 Test: WHITE BLOOD COUNT; Value: 8.4; Range: 4.0-10.0; Units: K/mm3; Status: F Test: RED BLOOD COUNT; Value: 3.40; Range: 4.00-5.40; Abnormal: Below low normal; Units: M/mm3; Status: F Test: HEMOGLOBIN; Value: 10.4; Range: 12.0-16.0; Abnormal: Below low normal; Units: g/dl; Status: F Test: HEMATOCRIT; Value: 31.6; Range: 36.0-47.0; Abnormal: Below low normal; Units: %; Status: F Test: MEAN CORPUSCULAR VOLUME; Value: 92.8; Range: 80.0-96.0; Units: fl; Status: F Test: MEAN CORPUSCULAR HEMOGLOBIN; Value: 30.5; Range: 27.0-33.0; Units: pg; Status: F Test: MEAN CORPUSCULAR HGB CONC; Value: 32.9; Range: 32.0-36.5; Units: g/dl; Status: F Test: RED CELL DISTRIBUTION WIDTH; Value: 14.2; Range: 11.5-14.5; Units: %; Status: F Test: PLATELET COUNT, AUTOMATED; Value: 208; Range: 150-450; Units: k/mm3; Status: F Test: NEUTROPHILS %; Value: 66.0; Range: 36.0-66.0; Units: %; Status: F Test: LYMPH %; Value: 23.6; Range: 24.0-44.0; Abnormal: Below low normal; Units: %; Status: F Test: MONO %; Value: 3.9; Range: 0.0-5.0; Units: %; Status: F Test: EOS %; Value: 3.6; Range: 0.0-3.0; Abnormal: Above high normal; Units: %; Status: F Test: BASO %; Value: 0.4; Range: 0.0-1.0; Units: %; Status: F Test: LARGE UNSTAINED CELL %; Value: 2.4; Range: 0.0-4.0; Units: %; Status: F Test: NEUTROPHILS #; Value: 5.5; Range: 1.8-7.7; Units: K/mm3; Status: F Test: LYMPH #; Value: 2.0; Range: 1.5-4.5; Units: K/mm3; Status: F Test: MONO #; Value: 0.3; Range: 0.0-0.8; Units: K/mm3; Status: F Test: EOS #; Value: 0.3; Range: 0.0-0.50; Units: K/mm3; Status: F Test: BASO #; Value: 0.0; Range: 0.0-0.2; Units: K/mm3; Status: F Test: LARGE UNSTAINED CELL #; Value: 0.2; Range: 0.0-0.4; Units: K/mm3; Status: F Lab Order: Cardiac Injury Profile; [facility] 04/21/16 01:55 Test: CPK CREATINE PHOSPHOKINASE; Value: 87; Range: 26-192; Units: U/L; Status: F Test: CK-MB VALUE MASS; Value: 3.7; Range: 0.0-3.6; Abnormal: Above high normal; Units: NG/ML; Status: F Test: MB/CK RELATIVE INDEX; Value: 4.25; Range: < OR =4; Abnormal: Above high normal; Status: F Test Note: ; DIAGNOSIS CRITERIA MMB ng/ml Relative Index (RI) NON-AMI < or = 5 N/A NICKERSON ZONE > 5 < or = 4 AMI > 5 > 4 Lab Order: Troponin; [facility] 01:55 Test: TROPONIN I; Value: < 0.02; Range: < 0.10; Units: NG/ML; Status: F Test Note: ; Troponin I Reference Interval for Predictivez LOCI: 99th Percentile= 0.00-0.045 ng/ml Risk Stratification: <= 0.10 ng/ml Decreased Risk for Adverse Clinical Events. 0.10-1.50 ng/ml Increased Risk for Adverse Clinical Events. Evaluation of additional criterion and/or repeat testing in 2-6 hours is suggested to rule out myocardial damage. >= 1.50 ng/ml Indicative of Myocardial Injury. Lab Order: Pt & Aptt; [facility] 04/21/16 01:55 Test: PROTHROMBIN TIME; Value: 13.1; Range: 12.3-14.5; Units: SECONDS; Status: F Test: INR; Value: 0.98; Status: F Test: PARTIAL THROMBOPLASTIN TIME; Value: 30.0; Range: 26.6-37.1; Units: SECONDS; Status: F Test Note: ; THERAPUTIC HUMAN INR VALUES INDICATIONS NORMAL RANGES PROPHYLAXIS/TREATMENT OF: VENOUS THROMBOSIS 2.0-3.0 PULMONARY EMBOLISM 2.0-3.0 PREVENTION OF SYSTEMIC EMBOLISM FROM: TISSUE HEART VALVES 2.0-3.0 ACUTE MYOCARDIAL INFARCTION 2.0-3.0 VALVULAR HEART DISEASE 2.0-3.0 ATRIAL FIBRILLATION 2.0-3.0 MECHANICAL VALVES(HIGH RISK) 2.5-3.5 RECURRENT MYOCARDIAL INFARCTION 2.5-3.5 Lab Order: TROPONIN; [facility] 04/21/16 04:58 Test: TROPONIN I; Value: < 0.02; Range: < 0.10; Units: NG/ML; Status: F Test Note: ; Troponin I Reference Interval for Siemens Jay LOCI: 99th Percentile= 0.00-0.045 ng/ml Risk Stratification: <= 0.10 ng/ml Decreased Risk for Adverse Clinical Events. 0.10-1.50 ng/ml Increased Risk for Adverse Clinical Events. Evaluation of additional criterion and/or repeat testing in 2-6 hours is suggested to rule out myocardial damage. >= 1.50 ng/ml Indicative of Myocardial Injury. Lab Order: CARDIAC INJURY PROFILE; [facility] 04/21/16 04:58 Test: CPK CREATINE PHOSPHOKINASE; Value: 72; Range: 26-192; Units: U/L; Status: F Test: CK-MB VALUE MASS; Value: 2.8; Range: 0.0-3.6; Units: NG/ML; Status: F Test: MB/CK RELATIVE INDEX; Value: 3.88; Range: < OR =4; Status: F Test Note: ; DIAGNOSIS CRITERIA MMB ng/ml Relative Index (RI) NON-AMI < or = 5 N/A NICKERSON ZONE > 5 < or = 4 AMI > 5 > 4 Lab Order: Fingerstick Blood Sugar; [facility] 04/21/16 07:31 Test: BEDSIDE GLUCOSE; Value: 64; Range: 80-115; Abnormal: Below low normal; Units: MG/DL; Status: F Test Note: ; Doctor Notified Radiology Order: EKG-ADULT Test: EKG-ADULT REASON FOR EXAMINATION: Chest Pain; Stationary ECG Study; [facility] - ED; ; Test Date: 2016-04-21; Pat Name: CARMELITA NARAYAN Department:; Room: -; Gender: F 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; : 1950 Requested By: JORGE CABALLERO; Order Number: [id number] Reading MD: Vilma Oh; Measurements; Intervals [place]; Rate: 79 P: 42; HI: 181 QRS: 25; QRSD: 100 T: 31; QT: 359; QTc: 412; Interpretive Statements; SINUS RHYTHM; NSTTW ABNORMALITY; SIMILAR 03/30/16; Electronically Signed On 04-21-2016 7:54:28 EST by Vilma Oh; Radiology Order: Chest, 1 View Test: Chest, 1 View REASON FOR EXAMINATION: Chest Pain; SINGLE VIEW CHEST:; ; There is no evidence of acute infiltrate.; No pleural effusion is seen.; The heart is normal in size.; The mediastinal silhouette is unremarkable.; The visualized osseous structures are intact.; ; IMPRESSION:; No acute pulmonary disease.; ; Unreviewed; Outcome: 07:12 Decision to Hospitalize by Provider. cs11 09:41 Discharge Assessment: Patient awake and alert. awake, Oriented to person, place and ja5 time. patient administered narcotics -. Discharge Assessment: patient administered narcotics - yes. Patient was admitted to the hospital or transferred to another facility. The following High Risk Discharge criteria are identified: None. Admitted to PCU accompanied by nurse, via stretcher, with oxygen, on monitor, with chart. Condition: stable. No special radiology studies were completed. Admission hand-off: Report Faxed Fax receipt verified by [employer]. Property :Personal belongings accompany Pt. 09:56 Patient left the ED. srm Signatures: Dispatcher [employer] EDMS Haydee Alcaraz, RN RN srm Inocencio Bangura, RN Mena Feldman RN RN lf1 Layne Jean RN RN jc4 Elda Acosta, WEBMETHODS CONSULTANT WEBMETHODS CONSULTANT Jorge Silva, DO DO cs11 Vinicius RossiRN Elizabeth Olea, Reg Reg hs2 Jill Benjamin, WEBMETHODS CONSULTANT WEBMETHODS CONSULTANT Zofia DawnRN RN [id number] Tejal Childs RN RN mv5 Layne Jean RN jc4 MTDD
--- NOTE | 2016-04-21 10:25 | ECGEPIP ---
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
[2016-04-21] MEDS: PANTOPRAZOLE 40MG TAB (PROTONIX) PO SCH (10:57)
[2016-04-21] MEDS: HEPARIN SOD (PORCINE) 5000 UNITS/ML VIAL SC SCH ×2 (10:57→17:45)
[2016-04-21] MEDS: FERROUS SULFATE 325MG TAB PO SCH ×2 (10:57→20:32)
[2016-04-21] MEDS: PARoxetine 20 MG TAB PO SCH (10:57)
[2016-04-21] MEDS: CARVedilol 12.5 MG TAB PO SCH ×2 (10:57→20:32)
[2016-04-21] MEDS: SPIRONOLACTONE 25 MG TAB PO SCH (10:58)
[2016-04-21] MEDS: LEVEMIR (INSULIN DETEMIR) 1 UNITS/0.01ML SC SCH ×2 (11:12→20:33)
[2016-04-21] MEDS: CALCITRIOL 0.25 MCG CAP (S0169) PO SCH (13:08)
[2016-04-21] MEDS: HumaLOG INSULIN (NovoLOG) PER UNIT SC SCH ×2 (13:09→17:46)
[2016-04-21] MEDS ORDERED: diphenhydrAMINE 25 MG CAP PO ONE (20:45)
[2016-04-21] MEDS ORDERED: ATORVASTATIN 20 MG TAB PO SCH (21:00)
[2016-04-21] MEDS ORDERED: amLODIPine 5 MG TAB PO SCH (21:00)
[2016-04-21] MEDS ORDERED: HumaLOG INSULIN (NovoLOG) PER UNIT SC SCH (21:00)
[2016-04-21] MEDS ORDERED: ALLOPURINOL 100 MG TAB PO SCH (21:00)
[2016-04-21] MEDS ORDERED: SLF 3 ML SYR IV PRN (22:45)
[2016-04-22] VITALS: BP 156/69
[2016-04-22] MEDS: HEPARIN SOD (PORCINE) 5000 UNITS/ML VIAL SC SCH ×2 (00:06→08:54)
[2016-04-22 04:00] VITALS: BP 147/62
[2016-04-22] MEDS: SLF 3 ML SYR IV SCH ×2 (04:21→13:57)
--- NOTE | 2016-04-22 05:55 | CR ---
DATE OF CONSULTATION: 04/21/2016 REFERRING PHYSICIAN: CARISA Trotter INDICATION: Chest discomfort. HISTORY OF PRESENT ILLNESS: Mrs. Narayan is known to me. She is a pleasant 65-year-old female who has extensive medical history, which includes chronic renal insufficiency, type 2 diabetes, and established coronary artery disease. She had last cardiac catheterization in December 2010, which revealed three-vessel coronary artery disease, which was felt to be moderate. There were no critical stenoses at that time, and medical management was continued. She has had recurrent episodes of rather atypical chest discomfort that prompted the performance of cardiac PET scan in February of this year. It revealed small reversible inferoapical defect and positive transient ischemic dilation (TID). I discussed at that point performance of cardiac catheterization but, because her symptoms are very atypical, we decided to wait until she starts dialysis, which is likely going to be within next year. Since I saw her last in February, she has not had any chest discomfort until this admission. She came to hospital last night after she developed squeezing retrosternal chest discomfort, now approximately 24 hours ago. There was some radiation toward her left breast, left shoulder, and left arm. The pain was steady, unrelated to activity or position, and associated with mild nausea and at times also with dyspnea typically with activity. She came to emergency room, and ECG was unchanged and revealed sinus rhythm and minimal nonspecific repolarization abnormalities, not different compared to her old tracings. Her cardiac enzymes so far have been negative times four. She still continues to have the pain. It is not overly severe but has been steady for now 24 hours. She does not get any relief from any intervention, namely nitroglycerin, change in position, or food intake. PAST MEDICAL HISTORY 1. Coronary artery disease, as noted above. 2. Type 2 diabetes. 3. Chronic renal insufficiency stage IV. 4. Dyslipidemia. 5. Hypertension. 6. Bilateral cataracts. SURGICAL HISTORY: Is positive for: 1. Back surgery. 2. Bilateral carpal tunnel surgery. 3. (C) section. 4. Cholecystectomy. 5. Hysterectomy. 6. Tonsillectomy. 7. Toe amputation. 8. Appendectomy. 9. Left forearm or arm arteriovenous (AV) fistula placement. 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 ALLERGIES/INTOLERANCES: She reports intolerance to Vicodin, Zocor, sulfa, and Marce [place]. SOCIAL HISTORY: Patient used to smoke cigarettes but quit in 1999. She is and lives with her . FAMILY HISTORY: Her mother has hyperlipidemia and hypertension. She does not smoke. REVIEW OF SYSTEMS: There is no history of stroke. No recent fever or chills. She had mild nausea in the last few days but no vomiting. She does report some loose stools but no susan diarrhea. No blood in her stools. She has intermittent peripheral edema that typically responds fairly promptly to administrations of diuretics. No palpitations. No syncope, near syncope. No abdominal pain. PHYSICAL EXAMINATION: Last set of vital signs: Blood pressure 137/63, heart rate 68. She is afebrile. Saturation is 97% on room air, and she weighs 113 kg. She is alert and oriented and appropriate, sitting in a hospital chair. I do not appreciate any distinct jugular venous pulse (JVP) elevation. No carotid bruit. Lungs are clear to auscultation with good air movement. Heart exam: Somewhat muffled heart sounds, consistent with her obesity. I do not appreciate any rub or gallop. There is a fairly quiet systolic ejection murmur at the base, not more than 1/6 intensity. There is an AV fistula in her right arm. The thrill is not overly impressive. Her abdomen is obese but soft and nontender. No organomegaly is noted. There is no significant peripheral edema. Peripheral pulses are palpable, even though not of a good quality. There are status after toe amputations. Neurologically she is alert and oriented and appropriate. LABORATORY: Basic metabolic panel: Potassium 4.0, BUN 33, creatinine 2.8 for a calculated GFR 18, and glucose 130. She had four set of cardiac enzymes that are negative. CBC: WBC 8.4, hemoglobin 10.4, hematocrit 31.6, and platelet count 208,000. IMAGING: Chest x-ray reveals no pleural effusions and no convincing evidence for congestive heart failure or cardiomegaly. There are two ECGs from last night, both revealing sinus mechanism with fairly subtle repolarization abnormalities but within broad margin of normal without evolution. ASSESSMENT AND PLAN: Mrs. Narayan is a 65-year-old female who has established coronary artery disease (CAD) based on cardiac catheterization in 2010 that revealed three-vessel moderate CAD without severe stenoses. She had a cardiac PET scan a little more than a month ago that is suggestive of CAD as well, even though there was no distinct large area of ischemia. She now presents with very atypical chest discomfort that clinically is less likely to represent angina, even though I cannot completely rule that out. There is no objective evidence for ischemia. I am not certain what is the etiology of the chest discomfort. It does not have pleuritic character, and her glomerular filtration rate (GFR) is not low enough that I would suspect uremic pericarditis. I do think that it still can be of gastrointestinal (GI) or musculoskeletal etiology. At this point, I would recommend to continue observation and management of risk factors. I had had a discussion with the patient explaining that even though cardiac catheterization is probably the only technique that can provide definite assessment of her coronary anatomy, it would be associated with high risk of need for immediate dialysis. Because of atypical nature of her symptoms and no definite objective evidence for ischemia or myocardial necrosis, my preference would be to continue medical management. I will address this with her again tomorrow morning. I will get followup electrocardiogram and otherwise leave her medications unchanged. BHARATH
[2016-04-22 06:15] LABS: BASO % 0.4 % (0.0-1.0); EOS # 0.2 K/mm3 (0.0-0.50); EOS % 3.3 % (0.0-3.0); LARGE UNSTAINED CELL # 0.2 K/mm3 (0.0-0.4); LARGE UNSTAINED CELL % 2.5 % (0.0-4.0); LYMPH # 1.7 K/mm3 (1.5-4.5); LYMPH % 22.6 % (24.0-44.0); MEAN CORPUSCULAR HEMOGLOBIN 30.4 pg (27.0-33.0); MEAN CORPUSCULAR HGB CONC 32.5 g/dl (32.0-36.5); MEAN CORPUSCULAR VOLUME 93.7 fl (80.0-96.0); MONO # 0.4 K/mm3 (0.0-0.8); NEUTROPHILS # 4.8 K/mm3 (1.8-7.7); NEUTROPHILS % 66.1 % (36.0-66.0); PLATELET COUNT, AUTOMATED 190 k/mm3 (150-450); RED CELL DISTRIBUTION WIDTH 14.3 % (11.5-14.5); WHITE BLOOD COUNT 7.3 K/mm3 (4.0-10.0)
[2016-04-22 06:35] LABS: ALBUMIN 2.9 GM/DL (3.2-5.2); ALBUMIN/GLOBULIN RATIO 0.78 (1.00-1.93); BILIRUBIN,TOTAL 0.5 MG/DL (0.2-1.0); CALCIUM LEVEL 9.1 MG/DL (8.8-10.2); CREATININE FOR GFR 2.73 MG/DL (0.55-1.02); GLOMERULAR FILTRATION RATE 18.7 (>45); POTASSIUM SERUM 4.2 MEQ/L (3.5-5.1); TOTAL PROTEIN 6.6 GM/DL (6.4-8.2)
[2016-04-22 06:44] LABS: URIC ACID 5.2 MG/DL (2.6-6.0)
[2016-04-22 08:00] VITALS: BP 109/59
--- NOTE | 2016-04-22 08:27 | IPNPDOC ---
Subjective Date Seen The patient was seen on 04/22/16. Subjective Chief Complaint/HPI The patient is a 65-year-old female admitted with a reason for visit of Chest Pain. Events since last encounter Pt still with some CP. Essentially unchanged. Denies SOB, Abd pain. Constitutional: Denies: Chills, Fever Pulmonary: Denies: Dyspnea Cardiovascular: Reports: Chest Pain, Denies: Palpitations Gastrointestinal: Denies: Abdominal Pain, Nausea, Vomiting Objective Physical Examination General Exam: Positive: Alert, No Acute Distress Neck Exam: Positive: Supple, Negative: JVD Chest Exam: Positive: Clear to auscultation Heart Exam: Positive: Other (Some mid-sternal TTP), Rate Normal, Regular Rhythm Assessment /Plan Problems (1) Chest pain Status: Acute Problem Specific Plan: Consult Specialist, Monitor Clinically, Repeat Labs Problem Text: 04/22- Cardiology following. Etiology unclear but may be musculoskeletal. Was started on Prednisone for the atypical chest pain. Pt with coronary artery disease based on cardiac catheterization in 2010 that revealed three-vessel moderate CAD without severe stenoses. She had a cardiac PET scan that was suggestive of CAD as well, even though there was no distinct large area of ischemia. Dr Mckeon feels her chest discomfort is less likely angina. Dr Mckeon advises continued observation. He notes that cardiac catheterization could probably provide definite assessment of her coronary anatomy, but it would be associated with high risk of need for immediate dialysis, due to her kidney disease. Dr Mckeon advises to continue medical management because of atypical nature of her symptoms and no definite objective evidence for ischemia or myocardial necrosis. On Aspirin. Imdur currently held as pt received nitrobid in ER. On amlodipine and coreg and aldactone. 04/22 JFW: pt feels better, CIP neg x several, agree that prob MSK pain. Will d/c (2) CAD (coronary artery disease) Status: Chronic Problem Specific Plan: Consult Specialist, Monitor Clinically, Repeat Labs Problem Text: See above. On Aspirin. (3) CKD (chronic kidney disease), stage IV Status: Chronic Problem Specific Plan: Monitor Clinically, Repeat Labs Problem Text: 04/22 - Creat 2.78. Monitor. Avoid NSAIDS. (4) DM2 (diabetes mellitus, type 2) Status: Chronic Problem Specific Plan: Monitor Clinically, Repeat Labs Problem Text: On SSI. On Levemir 50 units BID (On Lantus 70 units in AM and 60 units PM as out pt). Monitor Blood sugars as pt was started on prednisone. (5) Hyperlipidemia Status: Chronic Problem Specific Plan: Monitor Clinically Problem Text: On Lipitor 40 mg daily. (6) HTN (hypertension) Status: Acute Problem Specific Plan: Monitor Clinically, Repeat Labs Problem Text: Imdur currently held as pt received nitrobid in ER. On amlodipine and coreg and aldactone. Plan/VTE VTE Prophylaxis Ordered?: Yes (heparin) VS, I&O, 24H, Fishbone Vital Signs/I&O Vital Signs Date Time Temp Pulse Resp B/P Pulse Ox O2 Delivery O2 Flow Rate FiO2 04/22/16 04:00 96.7 74 16 147/62 95 Room Air 04/21/16 15:04 2.0 I&O- Last 24 Hours up to 6 AM 04/22/16 05:59 Intake Total 1500 ml Output Total 1250 ml Balance 250 ml Laboratory Data 24H LABS Laboratory Tests 2 04/21/16 09:14: Creatine Kinase MB 2.8, Creatine Kinase MB Relative Index 4.37H, Total Creatine Kinase 64, Troponin I < 0.02 04/21/16 10:55: Bedside Glucose (Misc Panel) 140H 04/21/16 12:27: Bedside Glucose (Misc Panel) 154H 04/21/16 16:22: Creatine Kinase MB 3.5, Creatine Kinase MB Relative Index 4.21H, Total Creatine Kinase 83, Troponin I < 0.02 04/21/16 16:54: Bedside Glucose (Misc Panel) 153H 04/21/16 20:27: Bedside Glucose (Misc Panel) 224H 04/21/16 23:50: Creatine Kinase MB 2.7, Creatine Kinase MB Relative Index 4.02H, Total Creatine Kinase 67, Troponin I < 0.02 04/22/16 03:42: Bedside Glucose (Misc Panel) 130H 04/22/16 05:39: Blood Urea Nitrogen 36H, Creatinine 2.73H, Sodium Level 142, Potassium Level 4.2 , Chloride Level 103, Carbon Dioxide Level 31, Calcium Level 9.1, Aspartate Amino Transf (AST/SGOT) 12L, Alanine Aminotransferase (ALT/SGPT) 21, Alkaline Phosphatase 109, Total Bilirubin 0.5, Uric Acid 5.2, Total Protein 6.6, Albumin 2.9L, Albumin/Globulin Ratio 0.78L, Anion Gap 8, White Blood Count 7.3, Red Blood Count 3.00L, Hemoglobin 9.1L, Hematocrit 28.1L, Mean Corpuscular Volume 93.7, Mean Corpuscular Hemoglobin 30.4, Mean Corpuscular Hemoglobin Concent 32.5 , Red Cell Distribution Width 14.3, Platelet Count 190, Neutrophils (%) (Auto) 66.1H, Lymphocytes (%) (Auto) 22.6L, Monocytes (%) (Auto) 5.0, Eosinophils (%) ( Auto) 3.3H, Basophils (%) (Auto) 0.4, Neutrophils # (Auto) 4.8, Lymphocytes # ( Auto) 1.7, Monocytes # (Auto) 0.4, Eosinophils # (Auto) 0.2, Basophils # (Auto) 0.0, Glomerular Filtration Rate 18.7L, Large Unclassified Cells # 0.2, Large Unclassified Cells % 2.5 CBC/BMP Laboratory Tests 04/22/16 05:39 Calcium Level 9.1, Aspartate Amino Transf (AST/SGOT) 12 L, Alanine Aminotransferase (ALT/SGPT) 21, Alkaline Phosphatase 109, Total Bilirubin 0.5, Uric Acid 5.2, Total Protein 6.6, Albumin 2.9 L, Red Blood Count 3.00 L, Mean Corpuscular Volume 93.7, Mean Corpuscular Hemoglobin 30.4, Mean Corpuscular Hemoglobin Concent 32.5, Red Cell Distribution Width 14.3, Neutrophils (%) (Auto ) 66.1 H, Lymphocytes (%) (Auto) 22.6 L, Monocytes (%) (Auto) 5.0, Eosinophils ( %) (Auto) 3.3 H, Basophils (%) (Auto) 0.4, Neutrophils # (Auto) 4.8, Lymphocytes # (Auto) 1.7, Monocytes # (Auto) 0.4, Eosinophils # (Auto) 0.2, Basophils # (Auto) 0.0 Bay Kenny RPA-Maria Victoria Apr 22, 2016 08:27 Esau Esposito MD Apr 22, 2016 14:33
[2016-04-22] MEDS: LEVEMIR (INSULIN DETEMIR) 1 UNITS/0.01ML SC SCH (08:51)
[2016-04-22] MEDS: HumaLOG INSULIN (NovoLOG) PER UNIT SC SCH ×2 (08:52→12:07)
[2016-04-22] MEDS: PARoxetine 20 MG TAB PO SCH (08:53)
[2016-04-22] MEDS: CALCITRIOL 0.25 MCG CAP (S0169) PO SCH (08:53)
[2016-04-22] MEDS: PANTOPRAZOLE 40MG TAB (PROTONIX) PO SCH (08:53)
[2016-04-22] MEDS: SPIRONOLACTONE 25 MG TAB PO SCH (08:53)
[2016-04-22 08:54] VITALS: BP 109/59
[2016-04-22] MEDS: CARVedilol 12.5 MG TAB PO SCH (08:54)
[2016-04-22] MEDS: FERROUS SULFATE 325MG TAB PO SCH (08:55)
[2016-04-22] MEDS ORDERED: predniSONE 20 MG TAB PO SCH (09:00)
[2016-04-22] MEDS ORDERED: ASPIRIN 81 MG CHEW TABLET PO SCH (09:00)
[2016-04-22 12:00] VITALS: BP 156/72
[2016-04-22] MEDS ORDERED: DELT1TAB PO (14:35)
--- NOTE | 2016-04-22 20:14 | IPN ---
DATE: 04/22/2016 SUBJECTIVE: I saw Mrs. Narayan on my rounds this morning. She continued to complain about squeezing or aching left-sided and retrosternal chest discomfort that has been present since the night before, currently lasting over 30-something hours. No associated symptoms. Feels a little more short of breath than usual, but no other complaints. Did not sleep much because she kept to being woken up by blood draws and vital signs. PHYSICAL EXAMINATION: VITAL SIGNS: Her vital signs revealed blood pressure 109/59, heart rate in 80s. She was afebrile. Saturation in high 90s on room air. GENERAL: She is alert and oriented and appropriate. RESPIRATORY: Her lungs are clear. CARDIAC: Heart exam somewhat muffled heart sound due to obesity but otherwise unchanged. I do not appreciate any gallop or rub. There is faint murmur at the base. ABDOMEN: Obese. EXTREMITIES: There is trace peripheral edema. NEUROLOGIC: She was intact. LABORATORY: Her basic metabolic panel remain unchanged, creatinine 2.8 and GFR 19. CBC: Hemoglobin 9, hematocrit 28 and platelet count 190,000. Cardiac enzymes remained flat. At the time of my rounds, her ECG was still pending. ASSESSMENT AND PLAN: At this point I believe that it is highly unlikely that her chest discomfort is of anginal etiology. She has had more than 24 or more than 30 hours of pain without any elevation of troponin. If her morning electrocardiogram remains without change, she can be discharged home. I told her to promptly report any possible recurrence. I do foresee that she will need cardiac catheterization as soon as she starts dialysis or sooner if clinically.
--- NOTE | 2016-04-22 22:25 | ECGEPIP ---
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
--- NOTE | 2016-04-23 10:58 | EDDOCDS ---
Physician Documentation [facility] Name: Norma Narayan Age: 65 yrs Sex: Female : 1950 Arrival Date: 04/21/2016 Time: 01:33 Bed 3 Private MD: Disposition: 04/21/16 07:12 Hospitalization ordered by Miquel Ren for Inpatient Admission. Preliminary diagnosis is Unstable angina. - Bed requested for PCU. - Status is Inpatient Admission. srm - Condition is Stable. - Problem is new. - Symptoms have improved. Historical: - Allergies: Adhesives (Rash); Marce-[place] (Hives); Vicodin (itching); - Home Meds: 1. aspirin 81 mg Oral chew 1 tab once daily 2. atorvastatin 40 mg oral tab 1 tab once daily 3. calcitriol 0.25 mcg oral tab 2 caps once daily 4. carvedilol 12.5 mg oral tab 2 times per day 5. Flexeril 10 mg Oral tab nightly 6. gabapentin 300 mg Oral tab 2 caps nightly 7. Imdur Oral 8. Iron CR Oral twice a day 9. Lantus 70 units AM and 60 units at night Sub-Q soln 70 unit twice a day 10. paroxetine HCl 40 mg Oral tab once daily 11. Sofia-Nicolas 0.8 mg oral tab daily ran out 12. spironolactone 25 mg Oral tab once daily 13. torsemide 20 mg oral tab twice a day for only takes when weight goes up 14. Tradjenta 5 mg oral tab 1 tab once daily 15. Vitamin D Oral 16227 unit weekly - PMHx: Angina; Diabetes - IDDM: controlled; Hypertension; Stage IV kidney disease; - PSHx: Appendectomy; Cholecystectomy; Tonsillectomy; Hysterectomy; D & C; Cesearean Section; - Social history: Smoking status: Patient states former smoker of tobacco. No barriers to communication noted, The patient speaks fluent [place]an, Speaks appropriately for age, Preferred Language: [place]an. - Family history: Not pertinent. - : The pt / caregiver states he / she is not on anticoagulants. Home medication list is obtained from the patient. - Exposure Risk Screening:: None identified. Vital Signs: 04/21 01:40 BP 165 / 77 (auto/); ja5 01:41 BP 165 / 77; Pulse 82; Resp 20; Temp 98.6(TE); Pulse Ox 100% on R/A; Weight 113.4 kg / jarrett 250 lbs (R); Height 5 ft. 10 in. (177.80 cm) (R); 01:41 Pulse 79 MON; Pulse Ox 98% ; ja5 01:54 BP 154 / 72 (auto/); mv5 01:54 Pulse 80 MON; Pulse Ox 98% ; mv5 02:00 BP 142 / 55 (auto/); mv5 02:01 Pulse 76 MON; Pulse Ox 97% ; mv5 02:15 BP 105 / 58 (auto/); mv5 02:15 Pulse 77 MON; Pulse Ox 97% ; mv5 02:28 Pulse 74 MON; Pulse Ox 97% ; ja5 02:29 BP 140 / 66 (auto/); ja5 02:30 BP 133 / 63 (auto/); mv5 02:30 Pulse 77 MON; Pulse Ox 98% ; mv5 02:45 BP 139 / 65 (auto/); mv5 02:45 Pulse 74 MON; Pulse Ox 96% on 2 lpm NC; mv5 03:00 BP 147 / 69 (auto/); mv5 03:00 Pulse 77 MON; Pulse Ox 97% on 2 lpm NC; mv5 03:15 BP 121 / 72 (auto/); mv5 03:15 Pulse 68 MON; Pulse Ox 98% on 2 lpm NC; mv5 03:30 BP 114 / 57 (auto/); mv5 03:30 Pulse 67 MON; Pulse Ox 98% on 2 lpm NC; mv5 03:45 BP 116 / 58 (auto/); mv5 03:45 Pulse 66 MON; Pulse Ox 99% on 2 lpm NC; mv5 04:00 BP 122 / 61 (auto/); mv5 04:00 Pulse 65 MON; Pulse Ox 99% on 2 lpm NC; mv5 04:30 BP 136 / 67 (auto/); mv5 04:30 Pulse 66 MON; Pulse Ox 99% ; mv5 04:45 BP 124 / 58 (auto/); mv5 04:45 Pulse Ox 99% ; mv5 05:03 BP 112 / 59 (auto/); mv5 05:03 Pulse 64 MON; Pulse Ox 100% ; mv5 05:15 BP 141 / 66 (auto/); mv5 05:15 Pulse 63 MON; Pulse Ox 99% ; mv5 05:30 BP 149 / 70 (auto/); mv5 05:30 Pulse 63 MON; Pulse Ox 99% ; mv5 05:42 Pulse 73 MON; Pulse Ox 100% ; ja5 05:45 BP 208 / 102 (auto/); ja5 05:59 Pulse 62 MON; Pulse Ox 100% ; ja5 06:00 Pulse 64 MON; Pulse Ox 100% ; mv5 06:00 BP 198 / 154 (auto/); ja5 06:15 BP 206 / 103 (auto/); ja5 06:15 Pulse 64 MON; Pulse Ox 100% ; ja5 06:30 BP 114 / 59 (auto/); ja5 06:30 Pulse 62 MON; Pulse Ox 100% ; ja5 06:45 BP 126 / 68 (auto/); ja5 06:45 Pulse 64 MON; Pulse Ox 100% ; ja5 07:00 BP 157 / 72 (auto/); ja5 07:00 Pulse 65 MON; Pulse Ox 100% ; ja5 07:12 Pulse 63 MON; Pulse Ox 100% ; ja5 07:13 BP 128 / 70 (auto/); ja5 07:15 BP 120 / 78; Pulse 73; Resp 20; Temp 96.8(A); Pulse Ox 100% on 2 lpm NC; Pain 4/10; ja5 07:15 Pulse 65 MON; Pulse Ox 100% ; ja5 07:21 BP 145 / 67 (auto/); ja5 07:30 BP 117 / 71 (auto/); ja5 07:31 Pulse 65 MON; Pulse Ox 99% ; ja5 07:44 Pulse 63 MON; Pulse Ox 96% ; ja5 07:45 BP 145 / 71 (auto/); ja5 07:59 Pulse 62 MON; Pulse Ox 98% ; ja5 08:00 BP 133 / 65 (auto/); ja5 08:14 Pulse 63 MON; Pulse Ox 98% ; ja5 08:15 BP 143 / 71 (auto/); ja5 08:25 Pain 3/10; ja5 08:29 Pulse 80 MON; Pulse Ox 100% ; ja5 08:30 BP 122 / 60 (auto/); ja5 08:44 Pulse 63 MON; Pulse Ox 100% ; ja5 08:45 BP 147 / 68 (auto/); ja5 09:14 Pulse 63 MON; Pulse Ox 100% ; ja5 09:15 BP 155 / 70 (auto/); ja5 09:18 BP 155 / 70; Pulse 93; Resp 16; Temp 96.9(A); Pulse Ox 97% on 2 lpm NC; Pain 2/10; ja5 09:29 Pulse 50 MON; Pulse Ox 100% ; ja5 09:30 BP 142 / 72 (auto/); ja5 09:45 BP 158 / 71 (auto/); ja5 09:45 Pulse 62 MON; Pulse Ox 100% ; ja5 01:41 Body Mass Index 35.87 (113.40 kg, 177.80 cm) jarrett MDM: 01:36 Civil Structural Engineer/Pulse Ox/q 30 min VS ordered. cz 01:36 IV Saline Lock ordered. cz 01:36 Rhythm Strip to chart ordered. cz 01:36 Undress patient appropriately for examination ordered. cz 01:36 Basic Metabolic Profile Ordered. EDMS 01:36 CBC with Diff Ordered. EDMS 01:36 Cardiac Injury Profile Ordered. EDMS 01:36 Troponin Ordered. EDMS 01:37 ECG WITH READING ER PHYS+CARDIAG ordered. EDMS 01:46 Aspirin 324 mg PO once ordered. cs11 01:48 Chest, 1 View Ordered. EDMS 02:09 Nitro-Bid Ointment 2 % 0.5 inches Transdermal once ordered. cs11 02:09 Metoprolol (Tartrate) 25 mg PO once ordered. cs11 02:12 morphine 2 mg IVP once ordered. cs11 02:13 Pt & Aptt Ordered. EDMS 02:32 Oxygen at 4L/Min NC or Home dosage ordered. cs11 02:32 Basic Metabolic Profile Reviewed. cs11 02:32 CBC with Diff Reviewed. cs11 02:32 Cardiac Injury Profile Reviewed. cs11 02:32 Troponin Reviewed. cs11 02:32 Pt & Aptt Reviewed. cs11 02:41 diphenhydrAMINE 12.5 mg IVP once ordered. cs11 03:28 Financial registration complete. hs2 03:59 [place] into [employer] and attached to record. hs2 04:07 Misc Internal Consultant Order ordered. cs11 04:09 [facility] Order complete. jlm 04:10 TROPONIN Ordered. EDMS 04:10 CARDIAC INJURY PROFILE Ordered. EDMS 04:11 ELECTROCARDIOGRAM ADULT ordered. EDMS 06:09 TROPONIN Reviewed. cs11 06:09 CARDIAC INJURY PROFILE Reviewed. cs11 06:41 Nitro-Bid Ointment 2 % 0.5 inches Transdermal once ordered. cs11 06:43 heparin (Thrombolytic Protocol, 12 units/kg/hr)) 78342 units IV at 1000 units/hr once; cs11 Max. dose 1000units/hr. No Lovenox past 18hrs/ draw labs. ordered. 06:43 heparin (Thrombolytic Protocol, 60 units/kg)) 4000 units IVP once; max 4000 units. cs11 Ensure no Lovenox in past 18hr, labs drawn ordered. 07:13 BED REQUEST+ADM ordered. EDMS 07:40 Fingerstick Blood Sugar Ordered. EDMS 08:47 Admission / Observation Status ordered. EDMS 08:48 2 GRAM SODIUM DIET ordered. EDMS 08:48 CARDIAC MARKER PANEL Ordered. EDMS 08:48 CARDIAC MARKER PANEL Ordered. EDMS Point of Care Testing: Blood Glucose: 07:32 Blood Glucose: 64 mg/dL; jc4 Ranges: Administered Medications: 01:54 Drug: Aspirin 324 mg [aspirin 81 mg chewable tablet (4 tabs)] Route: PO; mv5 02:20 Follow up: Response: No Adverse Reaction mv5 02:20 Drug: Nitro-Bid 0.5 inches [Nitro-Bid 2 % transdermal ointment (0.5 inches)] Route: mv5 Transdermal; Site: anterior chest wall; 02:20 Drug: Metoprolol 25 mg [metoprolol tartrate 25 mg tablet (1 tabs)] Route: PO; mv5 02:37 Drug: morphine 2 mg [morphine 2 mg/mL intravenous cartridge (1 mL)] Route: IVP; Site: mv5 left hand; 02:45 Drug: diphenhydrAMINE 12.5 mg [diphenhydramine 50 mg/mL injection solution (0.25 mL)] mv5 Route: IVP; Site: left hand; 04:13 Follow up: Response: No Adverse Reaction mv5 07:25 Drug: heparin (Thrombolytic Protocol, 60 units/kg)) 4000 units [heparin (porcine) 5,000 ja5 unit/mL injection solution (0.8 mL)] {Co-Signature: jc4 (Layne Jean RN).} Route: IVP; Site: left hand; 07:30 Drug: heparin (Thrombolytic Protocol, 12 units/kg/hr)) 76143 units [heparin (porcine) pineda 25,000 unit/250 mL (100 unit/mL) in dextrose 5 % IV] {Co-Signature: jc4 (Layne Jean RN).} Route: IV; Rate: 1000 units/hr; Site: left hand; 07:33 Drug: Nitro-Bid 0.5 inches [Nitro-Bid 2 % transdermal ointment (0.5 inches)] Route: ja5 Transdermal; Site: anterior chest wall; 08:25 Follow up: Pain 05/02 Adult pineda Signatures: Dispatcher [employer] EDMS Jazmin Clayton, Casting Machine Adjuster Unit deg Haydee Alcaraz RN RN srm Inocencio Bangura RN RN cz Ford, Lisa, RN RN lf1 Martin Gerber, DO cs11 Vinicius RossiRN RN Maxine Jiménez, Casting Machine Adjuster Unit jlElizabeth Wallace, Reg Reg hs2 Zofia Phan RN ja5 Tejal Childs RN mv5 Layne Jean RN jc4 The chart was reviewed and I authenticate all verbal orders and agree with the evaluation and treatment provided.Attachments: 03:59 [facility], [facility]1983 Payment Agreement hs2 Chart Complete MTDD
--- NOTE | 2016-04-23 10:58 | EDDOCDS ---
Physician Documentation [facility] Name: Norma Narayan Age: 65 yrs Sex: Female : 1950 Arrival Date: 04/21/2016 Time: 01:33 Bed 3 Private MD: Disposition: 04/21/16 07:12 Hospitalization ordered by Miquel Ren for Inpatient Admission. Preliminary diagnosis is Unstable angina. - Bed requested for PCU. - Status is Inpatient Admission. srm - Condition is Stable. - Problem is new. - Symptoms have improved. Historical: - Allergies: Adhesives (Rash); [place] (Hives); Vicodin (itching); - Home Meds: 1. aspirin 81 mg Oral chew 1 tab once daily 2. atorvastatin 40 mg oral tab 1 tab once daily 3. calcitriol 0.25 mcg oral tab 2 caps once daily 4. carvedilol 12.5 mg oral tab 2 times per day 5. Flexeril 10 mg Oral tab nightly 6. gabapentin 300 mg Oral tab 2 caps nightly 7. Imdur Oral 8. Iron CR Oral twice a day 9. Lantus 70 units AM and 60 units at night Sub-Q soln 70 unit twice a day 10. paroxetine HCl 40 mg Oral tab once daily 11. Sofia-Nicolas 0.8 mg oral tab daily ran out 12. spironolactone 25 mg Oral tab once daily 13. torsemide 20 mg oral tab twice a day for only takes when weight goes up 14. Tradjenta 5 mg oral tab 1 tab once daily 15. Vitamin D Oral 20891 unit weekly - PMHx: Angina; Diabetes - IDDM: controlled; Hypertension; Stage IV kidney disease; - PSHx: Appendectomy; Cholecystectomy; Tonsillectomy; Hysterectomy; D & C; Cesearean Section; - Social history: Smoking status: Patient states former smoker of tobacco. No barriers to communication noted, The patient speaks fluent [place]ian, Speaks appropriately for age, Preferred Language: [place]ian. - Family history: Not pertinent. - : The pt / caregiver states he / she is not on anticoagulants. Home medication list is obtained from the patient. - Exposure Risk Screening:: None identified. Vital Signs: 04/21 01:40 BP 165 / 77 (auto/); ja5 01:41 BP 165 / 77; Pulse 82; Resp 20; Temp 98.6(TE); Pulse Ox 100% on R/A; Weight 113.4 kg / jarrett 250 lbs (R); Height 5 ft. 10 in. (177.80 cm) (R); 01:41 Pulse 79 MON; Pulse Ox 98% ; ja5 01:54 BP 154 / 72 (auto/); mv5 01:54 Pulse 80 MON; Pulse Ox 98% ; mv5 02:00 BP 142 / 55 (auto/); mv5 02:01 Pulse 76 MON; Pulse Ox 97% ; mv5 02:15 BP 105 / 58 (auto/); mv5 02:15 Pulse 77 MON; Pulse Ox 97% ; mv5 02:28 Pulse 74 MON; Pulse Ox 97% ; ja5 02:29 BP 140 / 66 (auto/); ja5 02:30 BP 133 / 63 (auto/); mv5 02:30 Pulse 77 MON; Pulse Ox 98% ; mv5 02:45 BP 139 / 65 (auto/); mv5 02:45 Pulse 74 MON; Pulse Ox 96% on 2 lpm NC; mv5 03:00 BP 147 / 69 (auto/); mv5 03:00 Pulse 77 MON; Pulse Ox 97% on 2 lpm NC; mv5 03:15 BP 121 / 72 (auto/); mv5 03:15 Pulse 68 MON; Pulse Ox 98% on 2 lpm NC; mv5 03:30 BP 114 / 57 (auto/); mv5 03:30 Pulse 67 MON; Pulse Ox 98% on 2 lpm NC; mv5 03:45 BP 116 / 58 (auto/); mv5 03:45 Pulse 66 MON; Pulse Ox 99% on 2 lpm NC; mv5 04:00 BP 122 / 61 (auto/); mv5 04:00 Pulse 65 MON; Pulse Ox 99% on 2 lpm NC; mv5 04:30 BP 136 / 67 (auto/); mv5 04:30 Pulse 66 MON; Pulse Ox 99% ; mv5 04:45 BP 124 / 58 (auto/); mv5 04:45 Pulse Ox 99% ; mv5 05:03 BP 112 / 59 (auto/); mv5 05:03 Pulse 64 MON; Pulse Ox 100% ; mv5 05:15 BP 141 / 66 (auto/); mv5 05:15 Pulse 63 MON; Pulse Ox 99% ; mv5 05:30 BP 149 / 70 (auto/); mv5 05:30 Pulse 63 MON; Pulse Ox 99% ; mv5 05:42 Pulse 73 MON; Pulse Ox 100% ; ja5 05:45 BP 208 / 102 (auto/); ja5 05:59 Pulse 62 MON; Pulse Ox 100% ; ja5 06:00 Pulse 64 MON; Pulse Ox 100% ; mv5 06:00 BP 198 / 154 (auto/); ja5 06:15 BP 206 / 103 (auto/); ja5 06:15 Pulse 64 MON; Pulse Ox 100% ; ja5 06:30 BP 114 / 59 (auto/); ja5 06:30 Pulse 62 MON; Pulse Ox 100% ; ja5 06:45 BP 126 / 68 (auto/); ja5 06:45 Pulse 64 MON; Pulse Ox 100% ; ja5 07:00 BP 157 / 72 (auto/); ja5 07:00 Pulse 65 MON; Pulse Ox 100% ; ja5 07:12 Pulse 63 MON; Pulse Ox 100% ; ja5 07:13 BP 128 / 70 (auto/); ja5 07:15 BP 120 / 78; Pulse 73; Resp 20; Temp 96.8(A); Pulse Ox 100% on 2 lpm NC; Pain 4/10; ja5 07:15 Pulse 65 MON; Pulse Ox 100% ; ja5 07:21 BP 145 / 67 (auto/); ja5 07:30 BP 117 / 71 (auto/); ja5 07:31 Pulse 65 MON; Pulse Ox 99% ; ja5 07:44 Pulse 63 MON; Pulse Ox 96% ; ja5 07:45 BP 145 / 71 (auto/); ja5 07:59 Pulse 62 MON; Pulse Ox 98% ; ja5 08:00 BP 133 / 65 (auto/); ja5 08:14 Pulse 63 MON; Pulse Ox 98% ; ja5 08:15 BP 143 / 71 (auto/); ja5 08:25 Pain 3/10; ja5 08:29 Pulse 80 MON; Pulse Ox 100% ; ja5 08:30 BP 122 / 60 (auto/); ja5 08:44 Pulse 63 MON; Pulse Ox 100% ; ja5 08:45 BP 147 / 68 (auto/); ja5 09:14 Pulse 63 MON; Pulse Ox 100% ; ja5 09:15 BP 155 / 70 (auto/); ja5 09:18 BP 155 / 70; Pulse 93; Resp 16; Temp 96.9(A); Pulse Ox 97% on 2 lpm NC; Pain 2/10; ja5 09:29 Pulse 50 MON; Pulse Ox 100% ; ja5 09:30 BP 142 / 72 (auto/); ja5 09:45 BP 158 / 71 (auto/); ja5 09:45 Pulse 62 MON; Pulse Ox 100% ; ja5 01:41 Body Mass Index 35.87 (113.40 kg, 177.80 cm) jarrett MDM: 01:36 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 cz 01:36 IV Saline Lock ordered. cz 01:36 Rhythm Strip to chart ordered. cz 01:36 Undress patient appropriately for examination ordered. cz 01:36 Basic Metabolic Profile Ordered. EDMS 01:36 CBC with Diff Ordered. EDMS 01:36 Cardiac Injury Profile Ordered. EDMS 01:36 Troponin Ordered. EDMS 01:37 ECG WITH READING ER PHYS+CARDIAG ordered. EDMS 01:46 Aspirin 324 mg PO once ordered. cs11 01:48 Chest, 1 View Ordered. EDMS 02:09 Nitro-Bid Ointment 2 % 0.5 inches Transdermal once ordered. cs11 02:09 Metoprolol (Tartrate) 25 mg PO once ordered. cs11 02:12 morphine 2 mg IVP once ordered. cs11 02:13 Pt & Aptt Ordered. EDMS 02:32 Oxygen at 4L/Min NC or Home dosage ordered. cs11 02:32 Basic Metabolic Profile Reviewed. cs11 02:32 CBC with Diff Reviewed. cs11 02:32 Cardiac Injury Profile Reviewed. cs11 02:32 Troponin Reviewed. cs11 02:32 Pt & Aptt Reviewed. cs11 02:41 diphenhydrAMINE 12.5 mg IVP once ordered. cs11 03:28 Financial registration complete. hs2 03:59 [facility] Payment Agreement was scanned into [email or web address] and attached to record. hs2 04:07 Misc Trawl Net Maker Order ordered. cs11 04:09 [facility] Order complete. jlm 04:10 TROPONIN Ordered. EDMS 04:10 CARDIAC INJURY PROFILE Ordered. EDMS 04:11 ELECTROCARDIOGRAM ADULT ordered. EDMS 06:09 TROPONIN Reviewed. cs11 06:09 CARDIAC INJURY PROFILE Reviewed. cs11 06:41 Nitro-Bid Ointment 2 % 0.5 inches Transdermal once ordered. cs11 06:43 heparin (Thrombolytic Protocol, 12 units/kg/hr)) 80854 units IV at 1000 units/hr once; cs11 Max. dose 1000units/hr. No Lovenox past 18hrs/ draw labs. ordered. 06:43 heparin (Thrombolytic Protocol, 60 units/kg)) 4000 units IVP once; max 4000 units. cs11 Ensure no Lovenox in past 18hr, labs drawn ordered. 07:13 BED REQUEST+ADM ordered. EDMS 07:40 Fingerstick Blood Sugar Ordered. EDMS 08:47 Admission / Observation Status ordered. EDMS 08:48 2 GRAM SODIUM DIET ordered. EDMS 08:48 CARDIAC MARKER PANEL Ordered. EDMS 08:48 CARDIAC MARKER PANEL Ordered. EDMS Point of Care Testing: Blood Glucose: 07:32 Blood Glucose: 64 mg/dL; jc4 Ranges: Administered Medications: 01:54 Drug: Aspirin 324 mg [aspirin 81 mg chewable tablet (4 tabs)] Route: PO; mv5 02:20 Follow up: Response: No Adverse Reaction mv5 02:20 Drug: Nitro-Bid 0.5 inches [Nitro-Bid 2 % transdermal ointment (0.5 inches)] Route: mv5 Transdermal; Site: anterior chest wall; 02:20 Drug: Metoprolol 25 mg [metoprolol tartrate 25 mg tablet (1 tabs)] Route: PO; mv5 02:37 Drug: morphine 2 mg [morphine 2 mg/mL intravenous cartridge (1 mL)] Route: IVP; Site: mv5 left hand; 02:45 Drug: diphenhydrAMINE 12.5 mg [diphenhydramine 50 mg/mL injection solution (0.25 mL)] mv5 Route: IVP; Site: left hand; 04:13 Follow up: Response: No Adverse Reaction mv5 07:25 Drug: heparin (Thrombolytic Protocol, 60 units/kg)) 4000 units [heparin (porcine) 5,000 ja5 unit/mL injection solution (0.8 mL)] {Co-Signature: jc4 (Layne Jean RN).} Route: IVP; Site: left hand; 07:30 Drug: heparin (Thrombolytic Protocol, 12 units/kg/hr)) 88039 units [heparin (porcine) pineda 25,000 unit/250 mL (100 unit/mL) in dextrose 5 % IV] {Co-Signature: jc4 (Layne Jean RN).} Route: IV; Rate: 1000 units/hr; Site: left hand; 07:33 Drug: Nitro-Bid 0.5 inches [Nitro-Bid 2 % transdermal ointment (0.5 inches)] Route: ja5 Transdermal; Site: anterior chest wall; 08:25 Follow up: Pain 05/02 Adult pineda Signatures: Dispatcher [employer] EDMS Jazmin Clayton, Electrician Supervisor Substation Unit deg Haydee Alcaraz RN RN srm Inocencio Bangura RN RN cz Ford, Lisa, RN RN lf1 Martin Gerber, DO cs11 Vinicius RossiRN RN Maxine Jiménez, Electrician Supervisor Substation Unit jlElizabeth Wallace, Reg Reg hs2 Zofia Phan RN ja5 Tejal Childs RN mv5 Layne Jean RN jc4 The chart was reviewed and I authenticate all verbal orders and agree with the evaluation and treatment provided.Attachments: 03:59 [facility] Payment Agreement hs2 Chart Complete MTDD
--- NOTE | 2016-04-23 10:59 | EDDOCDS ---
Nurse's Notes [facility] Name: Carmelita Narayan Age: 65 yrs Sex: Female : 1950 Arrival Date: 04/21/2016 Time: 01:33 Bed 3 Private MD: Diagnosis: Unstable angina Presentation: 04/21 01:38 Presenting complaint: Patient states: Chest pain with shortness of breath, nausea and lf1 diaphoresis that began at midnight and has been unrelieved with three nitro, pt. reports pain is mid to left chest radiating into left neck, left breast and left arm. Pain is currently 4/10. Aspirin was not taken prior to arrival. Baby aspirin at 1820 81 mg. Adult Sepsis Screening: The patient does not have new or worsening altered mentation. Patient's respiratory rate is less than 22. Systolic blood pressure is greater than 100. Patient has a qSOFA score of 0- Negative Sepsis Screen. Suicide/Homicide risk assessment- the patient denies having any suicidal and/or homicidal ideations and does not present with any other emotional, behavioral or mental health complaints. Status: Patient is not a electric serviceman or dependent. Transition of care: patient was not received from another setting of care. 01:38 Acuity: LOREN Level 2 lf1 01:38 Method Of Arrival: Walkin/Carried/Asstd lf1 Triage Assessment: 01:45 General: Appears obese, uncomfortable, Behavior is anxious, cooperative, restless. lf1 Pain: Location: anterior aspect of left upper chest, mid-sternal area and left breast Pain currently is 4 out of 10 on a pain scale. Pain radiates to left arm, left neck. Pt Declines HIV testing. The patient is triaged at the bedside. See Assessment in Nurses Notes section of ED record. Neurological: Level of Consciousness is awake, alert, Oriented to person, place, time. EENT: No deficits noted. Cardiovascular: Chest pain is described as Pain is 4 out of 10 on a pain scale. radiates to left arm(s) neck episodes are continuous began 2 hours prior to arrival. Respiratory: Respiratory effort is even, unlabored, Reports shortness of breath. GI: Abdomen is obese, Reports nausea. Derm: Skin is normal. Historical: - Allergies: Adhesives (Rash); [place] (Hives); Vicodin (itching); - Home Meds: 1. aspirin 81 mg Oral chew 1 tab once daily 2. atorvastatin 40 mg oral tab 1 tab once daily 3. calcitriol 0.25 mcg oral tab 2 caps once daily 4. carvedilol 12.5 mg oral tab 2 times per day 5. Flexeril 10 mg Oral tab nightly 6. gabapentin 300 mg Oral tab 2 caps nightly 7. Imdur Oral 8. Iron CR Oral twice a day 9. Lantus 70 units AM and 60 units at night Sub-Q soln 70 unit twice a day 10. paroxetine HCl 40 mg Oral tab once daily 11. Sofia-Nicolas 0.8 mg oral tab daily ran out 12. spironolactone 25 mg Oral tab once daily 13. torsemide 20 mg oral tab twice a day for only takes when weight goes up 14. Tradjenta 5 mg oral tab 1 tab once daily 15. Vitamin D Oral 54139 unit weekly - PMHx: Angina; Diabetes - IDDM: controlled; Hypertension; Stage IV kidney disease; - PSHx: Appendectomy; Cholecystectomy; Tonsillectomy; Hysterectomy; D & C; Cesearean Section; - Social history: Smoking status: Patient states former smoker of tobacco. No barriers to communication noted, The patient speaks fluent Malaysian, Speaks appropriately for age, Preferred Language: Malaysian. - Family history: Not pertinent. - : The pt / caregiver states he / she is not on anticoagulants. Home medication list is obtained from the patient. - Exposure Risk Screening:: None identified. Screenin:54 Advance Directives: There is no active DNR order. mv5 01:59 Screening information is obtained from the patient. Fall risk: No risks identified. jmb Assistance ADL's: requires no assistance with activities of daily living. Abuse/DV Screen: The patient / caregiver reports he/she is: not in a situation that causes fear, pain or injury. Nutritional screening: No deficits noted. home support is adequate. Assessment: 01:59 General: Appears uncomfortable, Behavior is appropriate for age, cooperative. Pain: jmb Location: chest and left breast and mid-sternal area and anterior aspect of left upper chest Pain currently is 8 out of 10 on a pain scale. Neurological: Level of Consciousness is awake, alert, obeys commands, Oriented to person, place, time, Master In Chancery are equal bilaterally Speech is normal, Facial symmetry appears normal, Facial symmetry: tongue is midline. Cardiovascular: Capillary refill < 3 seconds Heart tones S1 S2 present Pulses are all present. Rhythm is irregular. Respiratory: Airway is patent Respiratory effort is even, unlabored, Respiratory pattern is regular, symmetrical, Breath sounds are diminished bilaterally. GI: Abdomen is obese, Bowel sounds present X 4 quads. Abd is soft and non tender X 4 quads. Derm: Skin is normal. Musculoskeletal: Range of motion intact in all extremities. 02:22 General: Appears in no apparent distress, uncomfortable, Behavior is cooperative, mv5 pleasant. Pain: Location: mid-sternal area and left breast Pain currently is 4 out of 10 on a pain scale. Neurological: Level of Consciousness is awake, alert, Oriented to person, place, time. Cardiovascular: Capillary refill < 3 seconds Heart tones S1 S2 present Edema pitting to left midcalf, left ankle, left foot, right midcalf, right ankle and right foot Pulses are all present. Rhythm is sinus rhythm No ectopy. Respiratory: Airway is patent Respiratory effort is even, unlabored, Respiratory pattern is regular, symmetrical. Derm: Skin is pink, warm & dry. 02:49 General: Pt appears to have localized reaction after morphine administration. MD aware, mv5 pt medicated for itching. Given ice pack as requested.. 04:02 General: Appears in no apparent distress. Cardiovascular: Rhythm is sinus rhythm No mv5 ectopy. Derm: Skin is pink, warm & dry. 05:11 General: Appears in no apparent distress. Neurological: Level of Consciousness is mv5 awake, alert. Cardiovascular: Rhythm is sinus rhythm No ectopy. Respiratory: Airway is patent Respiratory effort is even, unlabored, Respiratory pattern is regular, symmetrical. Derm: Skin is pink, warm & dry. 06:11 General: Appears in no apparent distress. Neurological: Level of Consciousness is mv5 awake, alert, Oriented to person, place, time. Cardiovascular: Rhythm is sinus rhythm No ectopy. Respiratory: No deficits noted. Derm: Skin is pink, warm & dry. 07:16 General: Appears in no apparent distress, Behavior is appropriate for age, cooperative. ja5 Pain: Location: chest Pain currently is 4 out of 10 on a pain scale. Neurological: Level of Consciousness is awake, alert, Oriented to person, place, time. Cardiovascular: Capillary refill < 3 seconds Heart tones S1 S2 present Rhythm is sinus rhythm No ectopy. Cardiovascular: Chest pain is described as episodes last night midnight. Respiratory: Airway is patent Respiratory effort is even, unlabored, Respiratory pattern is regular, symmetrical, Breath sounds are clear bilaterally. GI: Abdomen is obese. Derm: Skin is pink, warm & dry. 07:43 General: Dr. Hernandez aware of patient's FSBS. Bollinger juice given per MD order. jc4 08:25 General: Patient laying in stretcher, using her cell phone, alert and oriented states ja5 that her chest pain has "decreased to a 2 or a 3", SR on electronic device monitor, respirations even and unlabored, color is pink. is at bedside, bed in low position, call fox in reach. . 09:47 General: Appears in no apparent distress, comfortable, Behavior is appropriate for age, ja5 cooperative. Pain: Location: chest Pain currently is 2 out of 10 on a pain scale. Neurological: Level of Consciousness is awake, alert, Oriented to person, place, time. Cardiovascular: Capillary refill < 3 seconds Heart tones S1 S2 present Rhythm is sinus rhythm No ectopy. Respiratory: Airway is patent Respiratory effort is even, unlabored, Respiratory pattern is regular, symmetrical, Breath sounds are clear bilaterally. Derm: Skin is pink, warm & dry. normal. Vital Signs: 01:40 BP 165 / 77 (auto/); ja5 01:41 BP 165 / 77; Pulse 82; Resp 20; Temp 98.6(TE); Pulse Ox 100% on R/A; Weight 113.4 kg jarrett (R); Height 5 ft. 10 in. (177.80 cm) (R); 01:41 Pulse 79 MON; Pulse Ox 98% ; ja5 01:54 BP 154 / 72 (auto/); mv5 01:54 Pulse 80 MON; Pulse Ox 98% ; mv5 02:00 BP 142 / 55 (auto/); mv5 02:01 Pulse 76 MON; Pulse Ox 97% ; mv5 02:15 BP 105 / 58 (auto/); mv5 02:15 Pulse 77 MON; Pulse Ox 97% ; mv5 02:28 Pulse 74 MON; Pulse Ox 97% ; ja5 02:29 BP 140 / 66 (auto/); ja5 02:30 BP 133 / 63 (auto/); mv5 02:30 Pulse 77 MON; Pulse Ox 98% ; mv5 02:45 BP 139 / 65 (auto/); mv5 02:45 Pulse 74 MON; Pulse Ox 96% on 2 lpm NC; mv5 03:00 BP 147 / 69 (auto/); mv5 03:00 Pulse 77 MON; Pulse Ox 97% on 2 lpm NC; mv5 03:15 BP 121 / 72 (auto/); mv5 03:15 Pulse 68 MON; Pulse Ox 98% on 2 lpm NC; mv5 03:30 BP 114 / 57 (auto/); mv5 03:30 Pulse 67 MON; Pulse Ox 98% on 2 lpm NC; mv5 03:45 BP 116 / 58 (auto/); mv5 03:45 Pulse 66 MON; Pulse Ox 99% on 2 lpm NC; mv5 04:00 BP 122 / 61 (auto/); mv5 04:00 Pulse 65 MON; Pulse Ox 99% on 2 lpm NC; mv5 04:30 BP 136 / 67 (auto/); mv5 04:30 Pulse 66 MON; Pulse Ox 99% ; mv5 04:45 BP 124 / 58 (auto/); mv5 04:45 Pulse Ox 99% ; mv5 05:03 BP 112 / 59 (auto/); mv5 05:03 Pulse 64 MON; Pulse Ox 100% ; mv5 05:15 BP 141 / 66 (auto/); mv5 05:15 Pulse 63 MON; Pulse Ox 99% ; mv5 05:30 BP 149 / 70 (auto/); mv5 05:30 Pulse 63 MON; Pulse Ox 99% ; mv5 05:42 Pulse 73 MON; Pulse Ox 100% ; ja5 05:45 BP 208 / 102 (auto/); ja5 05:59 Pulse 62 MON; Pulse Ox 100% ; ja5 06:00 Pulse 64 MON; Pulse Ox 100% ; mv5 06:00 BP 198 / 154 (auto/); ja5 06:15 BP 206 / 103 (auto/); ja5 06:15 Pulse 64 MON; Pulse Ox 100% ; ja5 06:30 BP 114 / 59 (auto/); ja5 06:30 Pulse 62 MON; Pulse Ox 100% ; ja5 06:45 BP 126 / 68 (auto/); ja5 06:45 Pulse 64 MON; Pulse Ox 100% ; ja5 07:00 BP 157 / 72 (auto/); ja5 07:00 Pulse 65 MON; Pulse Ox 100% ; ja5 07:12 Pulse 63 MON; Pulse Ox 100% ; ja5 07:13 BP 128 / 70 (auto/); ja5 07:15 BP 120 / 78; Pulse 73; Resp 20; Temp 96.8(A); Pulse Ox 100% on 2 lpm NC; Pain 4/10; ja5 07:15 Pulse 65 MON; Pulse Ox 100% ; ja5 07:21 BP 145 / 67 (auto/); ja5 07:30 BP 117 / 71 (auto/); ja5 07:31 Pulse 65 MON; Pulse Ox 99% ; ja5 07:44 Pulse 63 MON; Pulse Ox 96% ; ja5 07:45 BP 145 / 71 (auto/); ja5 07:59 Pulse 62 MON; Pulse Ox 98% ; ja5 08:00 BP 133 / 65 (auto/); ja5 08:14 Pulse 63 MON; Pulse Ox 98% ; ja5 08:15 BP 143 / 71 (auto/); ja5 08:25 Pain 3/10; ja5 08:29 Pulse 80 MON; Pulse Ox 100% ; ja5 08:30 BP 122 / 60 (auto/); ja5 08:44 Pulse 63 MON; Pulse Ox 100% ; ja5 08:45 BP 147 / 68 (auto/); ja5 09:14 Pulse 63 MON; Pulse Ox 100% ; ja5 09:15 BP 155 / 70 (auto/); ja5 09:18 BP 155 / 70; Pulse 93; Resp 16; Temp 96.9(A); Pulse Ox 97% on 2 lpm NC; Pain 2/10; ja5 09:29 Pulse 50 MON; Pulse Ox 100% ; ja5 09:30 BP 142 / 72 (auto/); ja5 09:45 BP 158 / 71 (auto/); ja5 09:45 Pulse 62 MON; Pulse Ox 100% ; ja5 01:41 Body Mass Index 35.87 (113.40 kg, 177.80 cm) jarrett Vitals: 00:35 Log In Time: April 21, 2016 at 00:35. lf1 ED Course: 01:34 Patient visited by Elizabeth Betancur Reg. hs2 01:34 Patient moved to Waiting hs2 01:35 Tejal ChildsRN is Primary Nurse. cz 01:35 Patient moved to 3 cz 01:40 Triage Initiated lf1 01:41 Pt greeted and oriented to ED. Patient advised of names of staff involved in care, jarrett location of call fox, wait times and NPO status. Accompanied by Family Member, Patient has correct armband on for positive identification. Placed in psych safe attire. Bed in low position. Call light in reach. Side rails up X2. case monitor on. Pulse ox on. NIBP on. 01:41 EKG done. (by ED staff). Reviewed by Jorge Gerber DO. jarrett 01:45 Jorge Gerber DO is Attending Physician. cs11 01:45 Patient visited by Jorge Gerber DO. cs11 01:59 The patient / caregiver is instructed regarding the plan of care and ED course. jmb 01:59 Inserted saline lock: 20 gauge in left hand and blood collected. The patient tolerated jmb the procedure well. Labs drawn. (by ED staff). Sent per order to lab. 02:02 Patient visited by Vinicius Rossi RN. jmb 02:39 Patient visited by Tejal Childs RN. mv5 02:49 O2 via nasal cannula \\T\\ 2L/min. mv5 03:10 Patient visited by Tejal Childs RN. mv5 03:59 [facility] Payment Agreement was scanned into [employer] and attached to record. hs2 04:02 Patient visited by Tejal Childs RN. mv5 05:05 Patient visited by Jill Benjamin, ARUNA. cln 05:05 CARDIAC INJURY PROFILE Sent. cln 05:05 TROPONIN Sent. cln 05:05 EKG done. (by ED staff). Reviewed by Jorge Gerber DO. cln 06:10 Patient visited by Tejal Childs RN. mv5 07:07 Primary Nurse role handed off by Tejal Childs RN mv5 07:12 Miquel Ren MD is Hospitalizing Provider. cs11 07:15 Zofia Phan,NICK is Primary Nurse. ja5 08:11 EKG-ADULT Returned. EDMS 08:29 Patient visited by Layne Jean RN. jc4 08:39 Chest, 1 View Returned. EDMS 09:43 No procedures done that require assistance. 5 Administered Medications: 01:54 Drug: Aspirin 324 mg [aspirin 81 mg chewable tablet (4 tabs)] Route: PO; mv5 02:20 Follow up: Response: No Adverse Reaction mv5 02:20 Drug: Nitro-Bid 0.5 inches [Nitro-Bid 2 % transdermal ointment (0.5 inches)] Route: mv5 Transdermal; Site: anterior chest wall; 02:20 Drug: Metoprolol 25 mg [metoprolol tartrate 25 mg tablet (1 tabs)] Route: PO; mv5 02:37 Drug: morphine 2 mg [morphine 2 mg/mL intravenous cartridge (1 mL)] Route: IVP; Site: mv5 left hand; 02:45 Drug: diphenhydrAMINE 12.5 mg [diphenhydramine 50 mg/mL injection solution (0.25 mL)] 5 Route: IVP; Site: left hand; 04:13 Follow up: Response: No Adverse Reaction 5 07:25 Drug: heparin (Thrombolytic Protocol, 60 units/kg)) 4000 units [heparin (porcine) 5,000 ja5 unit/mL injection solution (0.8 mL)] {Co-Signature: jc4 (Layne Jean RN).} Route: IVP; Site: left hand; 07:30 Drug: heparin (Thrombolytic Protocol, 12 units/kg/hr)) 72638 units [heparin (porcine) ja5 25,000 unit/250 mL (100 unit/mL) in dextrose 5 % IV] {Co-Signature: jc4 (Layne Jean RN).} Route: IV; Rate: 1000 units/hr; Site: left hand; 07:33 Drug: Nitro-Bid 0.5 inches [Nitro-Bid 2 % transdermal ointment (0.5 inches)] Route: ja5 Transdermal; Site: anterior chest wall; 08:25 Follow up: Pain 05/02 Adult [facility] Point of Care Testing: Blood Glucose: 07:32 Blood Glucose: 64 mg/dL; jc4 Ranges: Order Results: Lab Order: Basic Metabolic Profile; SPEC'M 04/21/16 01:55 Test: GLUCOSE, FASTING; Value: 130; Range: 80-110; Abnormal: Above high normal; Units: MG/DL; Status: F Test: BLOOD UREA NITROGEN; Value: 33; Range: 7-18; Abnormal: Above high normal; Units: MG/DL; Status: F Test: CREATININE FOR GFR; Value: 2.81; Range: 0.55-1.02; Abnormal: Above high normal; Units: MG/DL; Status: F Test: GLOMERULAR FILTRATION RATE; Value: 18.1; Range: >45; Abnormal: Below low normal; Status: F Test: SODIUM LEVEL; Value: 142; Range: 136-145; Units: MEQ/L; Status: F Test: POTASSIUM SERUM; Value: 4.0; Range: 3.5-5.1; Units: MEQ/L; Status: F Test: CHLORIDE LEVEL; Value: 100; Range: 98-107; Units: MEQ/L; Status: F Test: CARBON DIOXIDE LEVEL; Value: 32; Range: 21-32; Units: MEQ/L; Status: F Test: ANION GAP; Value: 10; Range: 8-16; Units: MEQ/L; Status: F Test: CALCIUM LEVEL; Value: 8.7; Range: 8.8-10.2; Abnormal: Below low normal; Units: MG/DL; Status: F Test Note: ; Units are mL/min/1.73 m2 Chronic Kidney Disease Staging per NKF: Stage I & II GFR >=60 Normal to Mildly Decreased Stage III GFR 30-59 Moderately Decreased Stage IV GFR 15-29 Severely Decreased Stage V GFR <15 Very Little GFR Left ESRD GFR <15 on 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 Lab Order: CBC with Diff; SPEC'M 04/21/16 01:55 Test: WHITE BLOOD COUNT; Value: 8.4; Range: 4.0-10.0; Units: K/mm3; Status: F Test: RED BLOOD COUNT; Value: 3.40; Range: 4.00-5.40; Abnormal: Below low normal; Units: M/mm3; Status: F Test: HEMOGLOBIN; Value: 10.4; Range: 12.0-16.0; Abnormal: Below low normal; Units: g/dl; Status: F Test: HEMATOCRIT; Value: 31.6; Range: 36.0-47.0; Abnormal: Below low normal; Units: %; Status: F Test: MEAN CORPUSCULAR VOLUME; Value: 92.8; Range: 80.0-96.0; Units: fl; Status: F Test: MEAN CORPUSCULAR HEMOGLOBIN; Value: 30.5; Range: 27.0-33.0; Units: pg; Status: F Test: MEAN CORPUSCULAR HGB CONC; Value: 32.9; Range: 32.0-36.5; Units: g/dl; Status: F Test: RED CELL DISTRIBUTION WIDTH; Value: 14.2; Range: 11.5-14.5; Units: %; Status: F Test: PLATELET COUNT, AUTOMATED; Value: 208; Range: 150-450; Units: k/mm3; Status: F Test: NEUTROPHILS %; Value: 66.0; Range: 36.0-66.0; Units: %; Status: F Test: LYMPH %; Value: 23.6; Range: 24.0-44.0; Abnormal: Below low normal; Units: %; Status: F Test: MONO %; Value: 3.9; Range: 0.0-5.0; Units: %; Status: F Test: EOS %; Value: 3.6; Range: 0.0-3.0; Abnormal: Above high normal; Units: %; Status: F Test: BASO %; Value: 0.4; Range: 0.0-1.0; Units: %; Status: F Test: LARGE UNSTAINED CELL %; Value: 2.4; Range: 0.0-4.0; Units: %; Status: F Test: NEUTROPHILS #; Value: 5.5; Range: 1.8-7.7; Units: K/mm3; Status: F Test: LYMPH #; Value: 2.0; Range: 1.5-4.5; Units: K/mm3; Status: F Test: MONO #; Value: 0.3; Range: 0.0-0.8; Units: K/mm3; Status: F Test: EOS #; Value: 0.3; Range: 0.0-0.50; Units: K/mm3; Status: F Test: BASO #; Value: 0.0; Range: 0.0-0.2; Units: K/mm3; Status: F Test: LARGE UNSTAINED CELL #; Value: 0.2; Range: 0.0-0.4; Units: K/mm3; Status: F Lab Order: Cardiac Injury Profile; [facility] 04/21/16 01:55 Test: CPK CREATINE PHOSPHOKINASE; Value: 87; Range: 26-192; Units: U/L; Status: F Test: CK-MB VALUE MASS; Value: 3.7; Range: 0.0-3.6; Abnormal: Above high normal; Units: NG/ML; Status: F Test: MB/CK RELATIVE INDEX; Value: 4.25; Range: < OR =4; Abnormal: Above high normal; Status: F Test Note: ; DIAGNOSIS CRITERIA MMB ng/ml Relative Index (RI) NON-AMI < or = 5 N/A NICKERSON ZONE > 5 < or = 4 AMI > 5 > 4 Lab Order: Troponin; [facility] 01:55 Test: TROPONIN I; Value: < 0.02; Range: < 0.10; Units: NG/ML; Status: F Test Note: ; Troponin I Reference Interval for [employer] LOCI: 99th Percentile= 0.00-0.045 ng/ml Risk Stratification: <= 0.10 ng/ml Decreased Risk for Adverse Clinical Events. 0.10-1.50 ng/ml Increased Risk for Adverse Clinical Events. Evaluation of additional criterion and/or repeat testing in 2-6 hours is suggested to rule out myocardial damage. >= 1.50 ng/ml Indicative of Myocardial Injury. Lab Order: Pt & Aptt; [facility] 04/21/16 01:55 Test: PROTHROMBIN TIME; Value: 13.1; Range: 12.3-14.5; Units: SECONDS; Status: F Test: INR; Value: 0.98; Status: F Test: PARTIAL THROMBOPLASTIN TIME; Value: 30.0; Range: 26.6-37.1; Units: SECONDS; Status: F Test Note: ; THERAPUTIC HUMAN INR VALUES INDICATIONS NORMAL RANGES PROPHYLAXIS/TREATMENT OF: VENOUS THROMBOSIS 2.0-3.0 PULMONARY EMBOLISM 2.0-3.0 PREVENTION OF SYSTEMIC EMBOLISM FROM: TISSUE HEART VALVES 2.0-3.0 ACUTE MYOCARDIAL INFARCTION 2.0-3.0 VALVULAR HEART DISEASE 2.0-3.0 ATRIAL FIBRILLATION 2.0-3.0 MECHANICAL VALVES(HIGH RISK) 2.5-3.5 RECURRENT MYOCARDIAL INFARCTION 2.5-3.5 Lab Order: TROPONIN; [facility] 04/21/16 04:58 Test: TROPONIN I; Value: < 0.02; Range: < 0.10; Units: NG/ML; Status: F Test Note: ; Troponin I Reference Interval for [employer] [place] LOCI: 99th Percentile= 0.00-0.045 ng/ml Risk Stratification: <= 0.10 ng/ml Decreased Risk for Adverse Clinical Events. 0.10-1.50 ng/ml Increased Risk for Adverse Clinical Events. Evaluation of additional criterion and/or repeat testing in 2-6 hours is suggested to rule out myocardial damage. >= 1.50 ng/ml Indicative of Myocardial Injury. Lab Order: CARDIAC INJURY PROFILE; [facility] 04/21/16 04:58 Test: CPK CREATINE PHOSPHOKINASE; Value: 72; Range: 26-192; Units: U/L; Status: F Test: CK-MB VALUE MASS; Value: 2.8; Range: 0.0-3.6; Units: NG/ML; Status: F Test: MB/CK RELATIVE INDEX; Value: 3.88; Range: < OR =4; Status: F Test Note: ; DIAGNOSIS CRITERIA MMB ng/ml Relative Index (RI) NON-AMI < or = 5 N/A NICKERSON ZONE > 5 < or = 4 AMI > 5 > 4 Lab Order: Fingerstick Blood Sugar; [facility] 04/21/16 07:31 Test: BEDSIDE GLUCOSE; Value: 64; Range: 80-115; Abnormal: Below low normal; Units: MG/DL; Status: F Test Note: ; Doctor Notified Lab Order: CARDIAC MARKER PANEL; [facility] 04/21/16 09:14 Test: CPK CREATINE PHOSPHOKINASE; Value: 64; Range: 26-192; Units: U/L; Status: F Test: CK-MB VALUE MASS; Value: 2.8; Range: 0.0-3.6; Units: NG/ML; Status: F Test: MB/CK RELATIVE INDEX; Value: 4.37; Range: < OR =4; Abnormal: Above high normal; Status: F Test: TROPONIN I; Value: < 0.02; Range: < 0.10; Units: NG/ML; Status: F Test Note: ; DIAGNOSIS CRITERIA MMB ng/ml Relative Index (RI) NON-AMI < or = 5 N/A NICKERSON ZONE > 5 < or = 4 AMI > 5 > 4 Radiology Order: EKG-ADULT Test: EKG-ADULT REASON FOR EXAMINATION: Chest Pain; Stationary ECG Study; [facility] - ED; ; Test Date: 2016-04-21; Pat Name: CARMELITA NARAYAN Department:; Room: -; Gender: F Credit Assistant: yrn; : 1950 Requested By: JORGE GERBER; Order Number: [id number] Reading MD: Vilma Oh; Measurements; Intervals [place]; Rate: 79 P: 42; [place]: 181 QRS: 25; QRSD: 100 T: 31; QT: 359; QTc: 412; Interpretive Statements; SINUS RHYTHM; NSTTW ABNORMALITY; [facility] 03/30/16; Electronically Signed On 04-21-2016 7:54:28 EST by Vilma Oh; Radiology Order: Chest, 1 View Test: Chest, 1 View REASON FOR EXAMINATION: Chest Pain; SINGLE VIEW CHEST:; ; There is no evidence of acute infiltrate.; No pleural effusion is seen.; The heart is normal in size.; The mediastinal silhouette is unremarkable.; The visualized osseous structures are intact.; ; IMPRESSION:; No acute pulmonary disease.; ; Unreviewed; Outcome: 07:12 Decision to Hospitalize by Provider. cs11 09:41 Discharge Assessment: Patient awake and alert. awake, Oriented to person, place and ja5 time. patient administered narcotics -. Discharge Assessment: patient administered narcotics - yes. Patient was admitted to the hospital or transferred to another facility. The following High Risk Discharge criteria are identified: None. Admitted to PCU accompanied by nurse, via stretcher, with oxygen, on monitor, with chart. Condition: stable. No special radiology studies were completed. Admission hand-off: Report Faxed Fax receipt verified by [employer]. Property :Personal belongings accompany Pt. 09:56 Patient left the ED. srm Signatures: Dispatcher [employer] EDMS Haydee Alcaraz RN RN srm Zecher, Calvin, RN RN cz Ford, Lisa, RN RN lf1 Layne Jean RN RN jc4 Elda Acosta, [employer]BER [employer] jarrett Jorge Gerber, DO DO cs11 Vinicius Rossi,RN RN jmb Elizabeth Betancur, Reg Reg hs2 Cassidy, Jill, [employer]BER [employer]BER cln Zofia Phan,RN RN ja5 Tejal Childs,RN RN mv5 Layne Jean RN jc4 Chart Complete MTDD
== END 2016-04-22 16:08 | disposition home or self-care (01) ==
LOC: M ED 01:33 → M ED INP 08:23 → INTOOBSV 08:23 → M PCU 10:05
PROVIDERS: ADMIT Family Medicine; ATTEND Family Medicine
DX: R07.9 Chest pain, unspecified (principal); I12.9 Hypertensive chronic kidney disease with stage 1 through stage 4 chronic kidney disease, or unspecified chronic kidney disease; I25.10 Atherosclerotic heart disease of native coronary artery without angina pectoris; N18.3 Chronic kidney disease, stage 3 (moderate); E78.4 Other hyperlipidemia; E11.21 Type 2 diabetes mellitus with diabetic nephropathy; E11.319 Type 2 diabetes mellitus with unspecified diabetic retinopathy without macular edema; I50.9 Heart failure, unspecified; M79.7 Fibromyalgia; F32.9 Major depressive disorder, single episode, unspecified; Z79.02 Long term (current) use of antithrombotics/antiplatelets; Z79.899 Other long term (current) drug therapy; Z79.82 Long term (current) use of aspirin; Z88.2 Allergy status to sulfonamides; Z88.8 Allergy status to other drugs, medicaments and biological substances; Z79.4 Long term (current) use of insulin; D63.1 Anemia in chronic kidney disease; Z87.891 Personal history of nicotine dependence
CPT/HCPCS: 36415; 71010; 80048; 80053; 82550; 82553; 84484; 84550; 85025; 85610; 85730; 93005; 93041; 96372; 96374; 96375; 99285; G0378; J1200

== ENCOUNTER → 2016-05-30 | Outpatient (REF) | payer MEDICARE ==
[~2016-05-30] MED LIST changes: +ALLO10TA PO; +AMLO5TAB2 PO; +ATOR40TA PO; +DELT1TAB PO; +GABA-282 PO; +ISOS30TA4 PO; +LANTINJ4 SC; +PARO40TA87 PO; +RENATAB5 PO
== END ==
LOC: M SFHCPLAZ 13:31
PROVIDERS: ATTEND Family Medicine
DX: E11.9 Type 2 diabetes mellitus without complications (principal); M65.4 Radial styloid tenosynovitis [de Quervain]; F32.9 Major depressive disorder, single episode, unspecified; I12.9 Hypertensive chronic kidney disease with stage 1 through stage 4 chronic kidney disease, or unspecified chronic kidney disease; N18.4 Chronic kidney disease, stage 4 (severe); Z79.4 Long term (current) use of insulin
CPT/HCPCS: 20550; 36415; 83036; G0463; J3301

== ENCOUNTER → 2016-06-11 | Outpatient (CLI) | payer MEDICARE ==
[2016-06-11 17:00] LABS: CREATININE FOR GFR 2.19 MG/DL (0.55-1.02); GLOMERULAR FILTRATION RATE 24.1 (>45); POTASSIUM SERUM 4.8 MEQ/L (3.5-5.1)
== END ==
LOC: M WUC 14:05
PROVIDERS: ATTEND Internal Medicine Cardiovascular Disease
DX: N19 Unspecified kidney failure (principal); I10 Essential (primary) hypertension

== ENCOUNTER 2016-06-28 20:54 | Emergency (ER) | payer MEDICARE ==
[~2016-06-28] VITALS: Ht 177.8 cm; Wt 124.7 kg
[2016-06-28] MEDS ORDERED: NS 1,000 ML IV SCH (23:00)
[2016-06-28] MEDS ORDERED: DEXTROSE 50% 50 ML SYRINGE IV STA (23:25)
[2016-06-28] MEDS ORDERED: DEXTROSE 50% 50 ML SYRINGE As Ordered ONE (23:26)
[2016-06-28 23:34] LABS: BASO # 0.1 K/mm3 (0.0-0.2); BASO % 0.5 % (0.0-1.0); EOS # 0.4 K/mm3 (0.0-0.50); EOS % 3.5 % (0.0-3.0); LARGE UNSTAINED CELL # 0.2 K/mm3 (0.0-0.4); LARGE UNSTAINED CELL % 1.8 % (0.0-4.0); LYMPH # 2.5 K/mm3 (1.5-4.5); LYMPH % 23.6 % (24.0-44.0); MEAN CORPUSCULAR HEMOGLOBIN 31.3 pg (27.0-33.0); MEAN CORPUSCULAR HGB CONC 32.6 g/dl (32.0-36.5); MONO # 0.4 K/mm3 (0.0-0.8); MONO % 4.2 % (0.0-5.0); NEUTROPHILS % 66.5 % (36.0-66.0); PLATELET COUNT, AUTOMATED 257 k/mm3 (150-450); RED CELL DISTRIBUTION WIDTH 14.1 % (11.5-14.5); WHITE BLOOD COUNT 10.6 K/mm3 (4.0-10.0)
[2016-06-29 00:03] LABS: ALBUMIN 3.6 GM/DL (3.2-5.2); ALBUMIN/GLOBULIN RATIO 0.88 (1.00-1.93); ALKALINE PHOSPHATASE 121 U/L (45-117); ALT/SGPT 23 U/L (12-78); ANION GAP 8 MEQ/L (8-16); AST/SGOT 18 U/L (15-37); BILIRUBIN,DIRECT 0.1 MG/DL (0.0-0.2); BILIRUBIN,TOTAL 0.5 MG/DL (0.2-1.0); BLOOD UREA NITROGEN 40 MG/DL (7-18); CALCIUM LEVEL 9.4 MG/DL (8.8-10.2); CARBON DIOXIDE LEVEL 32 MEQ/L (21-32); CHLORIDE LEVEL 100 MEQ/L (98-107); CREATININE FOR GFR 2.91 MG/DL (0.55-1.02); GLOMERULAR FILTRATION RATE 17.4 (>45); GLUCOSE, FASTING 62 MG/DL (80-110); POTASSIUM SERUM 3.6 MEQ/L (3.5-5.1); SODIUM LEVEL 140 MEQ/L (136-145); TOTAL PROTEIN 7.7 GM/DL (6.4-8.2)
[2016-06-29] MEDS ORDERED: CEPHALEXIN 500 MG CAP PO ONE (00:15)
[2016-06-29] MEDS ORDERED: KEFL500C7 PO (00:32)
[2016-06-29 00:33] VITALS: BP 104/66
--- NOTE | 2016-06-29 11:18 | REP ---
CHEST, TWO VIEWS: HISTORY: History of CHF. The heart size is borderline and mildly enlarged. There is a subtle diffuse haziness throughout the pulmonary vascularity with evidence of mild pulmonary vascular redistribution representing a change from the prior exam. The pleural angles are sharp and no acute patchy parenchymal opacities have developed. There are chronic changes involving the imaged spine. IMPRESSION: Borderline heart size. Possible mild CHF. Correlate clinically. Signed by Fernando Diaz DO 06/29/2016 01:32 P
--- NOTE | 2016-06-29 14:47 | ECGEPIP ---
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
== END 2016-06-29 00:37 | disposition home or self-care (01) ==
LOC: M ED 22:22
DX: N39.0 Urinary tract infection, site not specified (principal); E11.22 Type 2 diabetes mellitus with diabetic chronic kidney disease; I12.9 Hypertensive chronic kidney disease with stage 1 through stage 4 chronic kidney disease, or unspecified chronic kidney disease; I50.9 Heart failure, unspecified; I25.10 Atherosclerotic heart disease of native coronary artery without angina pectoris; E78.5 Hyperlipidemia, unspecified; F41.9 Anxiety disorder, unspecified; F33.9 Major depressive disorder, recurrent, unspecified; N18.9 Chronic kidney disease, unspecified; Z87.09 Personal history of other diseases of the respiratory system; Z86.14 Personal history of Methicillin resistant Staphylococcus aureus infection; Z79.899 Other long term (current) drug therapy; Z79.82 Long term (current) use of aspirin; Z79.4 Long term (current) use of insulin; Z88.5 Allergy status to narcotic agent; Z88.8 Allergy status to other drugs, medicaments and biological substances; L23.1 Allergic contact dermatitis due to adhesives; Z87.891 Personal history of nicotine dependence

== ENCOUNTER 2016-09-25 13:33 | Emergency (ER) | payer MEDICARE ==
[~2016-09-25] VITALS: Ht 177.8 cm; Wt 127.0 kg
[~2016-09-25 13:33] MED LIST changes: -ATOR40TA PO; +ATOR40TA75 PO; +KEFL500C17 PO; +PARO40TA3 PO; -PARO40TA87 PO
[2016-09-25] MEDS ORDERED: INSULADS INJ (13:49)
--- NOTE | 2016-09-25 15:32 | REP ---
LEFT LOWER EXTREMITY DOPPLER VENOUS ULTRASOUND: 09/25/2016. Clinical history: Lower extremity swelling, pain, erythema. Comparison: 04/26/2014. Technique: The deep venous system of the left lower extremity is evaluated with hayes scale imaging, compression ultrasound, color imaging and duplex Doppler interrogation. Examination from the groin through the popliteal fossa into the proximal calf. Findings: There is full compressibility from the common femoral vein in the inguinal region through the popliteal vein. Color imaging confirms patency throughout the course of the deep venous system. There is respiratory variation and augmented flow at all levels. Impression: 1. No Doppler venous ultrasound evidence of DVT in the left lower extremity. Signed by Brandt Christopher MD 09/25/2016 03:23 P
[2016-09-25 15:47] LABS: BASO % 0.3 % (0.0-1.0); EOS # 0.3 K/mm3 (0.0-0.50); EOS % 3.7 % (0.0-3.0); LARGE UNSTAINED CELL # 0.1 K/mm3 (0.0-0.4); LYMPH # 1.6 K/mm3 (1.5-4.5); LYMPH % 17.9 % (24.0-44.0); MEAN CORPUSCULAR HEMOGLOBIN 30.6 pg (27.0-33.0); MEAN CORPUSCULAR HGB CONC 33.4 g/dl (32.0-36.5); MEAN CORPUSCULAR VOLUME 91.6 fl (80.0-96.0); MONO # 0.3 K/mm3 (0.0-0.8); MONO % 3.7 % (0.0-5.0); NEUTROPHILS # 6.4 K/mm3 (1.8-7.7); NEUTROPHILS % 73.5 % (36.0-66.0); PLATELET COUNT, AUTOMATED 215 k/mm3 (150-450); RED CELL DISTRIBUTION WIDTH 15.3 % (11.5-14.5); WHITE BLOOD COUNT 8.7 K/mm3 (4.0-10.0)
[2016-09-25 16:02] LABS: CREATININE FOR GFR 2.19 MG/DL (0.55-1.02); GLOMERULAR FILTRATION RATE 24.1 (>45); POTASSIUM SERUM 3.2 MEQ/L (3.5-5.1)
[2016-09-25] MEDS ORDERED: CEPHALEXIN 500 MG CAP PO ONE (16:45)
[2016-09-25] MEDS ORDERED: KEFL500C17 PO (16:49)
[2016-09-25 16:54] VITALS: BP 151/81
== END 2016-09-25 17:02 | disposition home or self-care (01) ==
LOC: M ED 13:33
DX: L03.116 Cellulitis of left lower limb (principal); E11.9 Type 2 diabetes mellitus without complications; I25.10 Atherosclerotic heart disease of native coronary artery without angina pectoris; I12.9 Hypertensive chronic kidney disease with stage 1 through stage 4 chronic kidney disease, or unspecified chronic kidney disease; N18.4 Chronic kidney disease, stage 4 (severe); Z79.4 Long term (current) use of insulin; Z87.891 Personal history of nicotine dependence

== ENCOUNTER → 2016-10-07 | Outpatient (CLI) | payer MEDICARE ==
[~2016-10-07] MED LIST changes: +INSULADS INJ; +TRAM50TA2 PO
== END ==
LOC: M WUC 15:02
PROVIDERS: ATTEND Physician Assistant
DX: E11.9 Type 2 diabetes mellitus without complications (principal)

== ENCOUNTER 2016-10-14 16:23 | Emergency (ER) | payer MEDICARE ==
[~2016-10-14] VITALS: Ht 177.8 cm; Wt 122.7 kg
[~2016-10-14 16:23] MED LIST changes: -TRAM50TA2 PO
[2016-10-14] MEDS ORDERED: CYCLOBENZAPRINE 10 MG TAB PO ONE (18:00)
[2016-10-14] MEDS ORDERED: PERCOCET 5MG/325MG TAB PO ONE (18:00)
[2016-10-14] MEDS ORDERED: diazePAM 5 MG TAB PO ONE (18:30)
[2016-10-14] MEDS ORDERED: KETOROLAC 60 MG/2 ML VIAL (J1885) IM ONE (19:30)
[2016-10-14] MEDS ORDERED: TRAM50TA2 PO (20:29)
[2016-10-14 20:34] VITALS: BP 138/67
== END 2016-10-14 20:38 | disposition home or self-care (01) ==
LOC: M ED 16:23
DX: M51.36 Other intervertebral disc degeneration, lumbar region (principal); M48.06 Spinal stenosis, lumbar region; I25.10 Atherosclerotic heart disease of native coronary artery without angina pectoris; E11.9 Type 2 diabetes mellitus without complications; E78.4 Other hyperlipidemia; N18.4 Chronic kidney disease, stage 4 (severe); Z87.891 Personal history of nicotine dependence
CPT/HCPCS: 96372; 99282; J1885

== ENCOUNTER → 2017-02-24 | Outpatient (REF) | payer MEDICARE ==
[2017-02-24 18:32] LABS: FERRITIN 197 NG/ML (8-252); IRON (FE) 58 UG/DL (50-170); TOTAL IRON BINDING CAPACITY 276 UG/DL (250-450)
== END ==
LOC: M LAB REF 17:02
DX: N18.4 Chronic kidney disease, stage 4 (severe) (principal); D63.1 Anemia in chronic kidney disease
CPT/HCPCS: 83550

== ENCOUNTER → 2017-04-27 | Outpatient (REF) | payer MEDICARE ==
[2017-04-27 15:46] LABS: ESTIMATED AVERAGE GLUCOSE 209 MG/DL (60-110); HEMOGLOBIN A1c 8.9 %
== END ==
LOC: M SFHCPLAZ 13:47
DX: E11.9 Type 2 diabetes mellitus without complications (principal)
CPT/HCPCS: 83036

== ENCOUNTER → 2017-05-14 | Outpatient (REF) | payer MEDICARE ==
[2017-05-14 17:16] LABS: HEMATOCRIT 32.8 % (36.0-47.0); HEMOGLOBIN 10.2 g/dl (12.0-16.0); MEAN CORPUSCULAR HEMOGLOBIN 29.7 pg (27.0-33.0); MEAN CORPUSCULAR HGB CONC 31.1 g/dl (32.0-36.5); MEAN CORPUSCULAR VOLUME 95.6 fl (80.0-96.0); PLATELET COUNT, AUTOMATED 207 10^3/uL (150-450); RED BLOOD COUNT 3.43 10^6/uL (4.00-5.40); RED CELL DISTRIBUTION WIDTH 14.1 % (11.5-14.5); WHITE BLOOD COUNT 10.3 10^3/uL (4.0-10.0)
[2017-05-14 17:18] LABS: ANION GAP 7 MEQ/L (8-16); BLOOD UREA NITROGEN 32 MG/DL (7-18); CALCIUM LEVEL 8.8 MG/DL (8.8-10.2); CARBON DIOXIDE LEVEL 33 MEQ/L (21-32); CHLORIDE LEVEL 101 MEQ/L (98-107); CREATININE FOR GFR 2.36 MG/DL (0.55-1.30); GLOMERULAR FILTRATION RATE 22.1 (>45); GLUCOSE, FASTING 130 MG/DL (70-100); POTASSIUM SERUM 3.8 MEQ/L (3.5-5.1); SODIUM LEVEL 141 MEQ/L (136-145)
[2017-05-14 17:23] LABS: PROTHROMBIN TIME 13.4 SECONDS (12.4-14.5)
== END ==
LOC: M SFHCPLAZ 15:28
DX: Z01.810 Encounter for preprocedural cardiovascular examination (principal)
CPT/HCPCS: 80048

== ENCOUNTER → 2017-07-06 | Outpatient (REF) | payer MEDICARE ==
[2017-07-06 19:29] LABS: FERRITIN 168 NG/ML (8-252); IRON (FE) 40 UG/DL (50-170); PERCENT SATURATION 15.6 % (13.2-45.0); TOTAL IRON BINDING CAPACITY 257 UG/DL (250-450)
== END ==
LOC: M LAB REF 17:14
DX: N18.4 Chronic kidney disease, stage 4 (severe) (principal); D63.1 Anemia in chronic kidney disease
CPT/HCPCS: 83550

== ENCOUNTER 2017-07-15 08:21 | Outpatient (CLI) | payer MEDICARE ==
[2017-07-15] MEDS: diphenhydrAMINE 25 MG CAP PO (08:42)
[2017-07-15] MEDS: IRON SUCROSE 25 MG in NS 50 ML IV (09:03)
[2017-07-15] MEDS: IRON SUCROSE 175 MG in NS 100 ML IV (10:09)
== END 2017-07-15 12:35 | disposition home or self-care (01) ==
LOC: M INFU 08:21
DX: D50.9 Iron deficiency anemia, unspecified (principal); E11.9 Type 2 diabetes mellitus without complications; N18.3 Chronic kidney disease, stage 3 (moderate); M79.7 Fibromyalgia; F32.9 Major depressive disorder, single episode, unspecified; Z79.4 Long term (current) use of insulin; Z79.82 Long term (current) use of aspirin; Z79.899 Other long term (current) drug therapy; Z79.891 Long term (current) use of opiate analgesic; Z88.8 Allergy status to other drugs, medicaments and biological substances; Z87.891 Personal history of nicotine dependence; Z90.711 Acquired absence of uterus with remaining cervical stump; Z89.429 Acquired absence of other toe(s), unspecified side
CPT/HCPCS: J1756

== ENCOUNTER 2017-07-23 12:19 | Outpatient (CLI) | payer MEDICARE ==
[2017-07-23] MEDS: diphenhydrAMINE 50 MG CAP PO (13:04)
[2017-07-23] MEDS: IRON SUCROSE 25 MG in NS 50 ML IV (13:05)
[2017-07-23] MEDS: IRON SUCROSE 175 MG in NS 100 ML IV (14:06)
== END 2017-07-23 16:45 | disposition home or self-care (01) ==
LOC: M INFU 12:19
DX: D50.9 Iron deficiency anemia, unspecified (principal); N18.3 Chronic kidney disease, stage 3 (moderate); E11.9 Type 2 diabetes mellitus without complications; M79.7 Fibromyalgia; M19.90 Unspecified osteoarthritis, unspecified site; F32.9 Major depressive disorder, single episode, unspecified; Z79.2 Long term (current) use of antibiotics; Z79.4 Long term (current) use of insulin; Z79.891 Long term (current) use of opiate analgesic; Z79.899 Other long term (current) drug therapy; Z88.5 Allergy status to narcotic agent; Z88.8 Allergy status to other drugs, medicaments and biological substances; Z91.048 Other nonmedicinal substance allergy status; Z87.891 Personal history of nicotine dependence; Z89.429 Acquired absence of other toe(s), unspecified side
CPT/HCPCS: J1756

== ENCOUNTER 2017-07-29 09:27 | Outpatient (CLI) | payer MEDICARE ==
[2017-07-29] MEDS: diphenhydrAMINE 50 MG CAP PO (09:58)
[2017-07-29] MEDS: IRON SUCROSE 25 MG in NS 50 ML IV (10:10)
[2017-07-29] MEDS: IRON SUCROSE 175 MG in NS 100 ML IV (11:29)
== END 2017-07-29 14:00 | disposition home or self-care (01) ==
LOC: M INFU 09:27
DX: D50.9 Iron deficiency anemia, unspecified (principal); I12.9 Hypertensive chronic kidney disease with stage 1 through stage 4 chronic kidney disease, or unspecified chronic kidney disease; N18.3 Chronic kidney disease, stage 3 (moderate); E11.9 Type 2 diabetes mellitus without complications; M79.7 Fibromyalgia; F32.9 Major depressive disorder, single episode, unspecified; Z79.4 Long term (current) use of insulin; Z79.82 Long term (current) use of aspirin; Z79.891 Long term (current) use of opiate analgesic; Z79.899 Other long term (current) drug therapy; Z88.8 Allergy status to other drugs, medicaments and biological substances; Z91.048 Other nonmedicinal substance allergy status; Z87.891 Personal history of nicotine dependence
CPT/HCPCS: J1756

== ENCOUNTER → 2017-09-18 | Outpatient (REF) | payer MEDICARE | LOC: M SFHCPLAZ 12:10 | DX: R35.0 Frequency of micturition (principal) | CPT/HCPCS: 87186 ==

== ENCOUNTER → 2017-09-29 | Outpatient (CLI) | payer MEDICARE ==
[2017-09-29 13:04] LABS: HEMATOCRIT 31.7 % (36.0-47.0); HEMOGLOBIN 10.1 g/dl (12.0-15.5); MEAN CORPUSCULAR HEMOGLOBIN 30.7 pg (27.0-33.0); MEAN CORPUSCULAR HGB CONC 31.9 g/dl (32.0-36.5); MEAN CORPUSCULAR VOLUME 96.4 fl (80.0-96.0); PLATELET COUNT, AUTOMATED 176 10^3/uL (150-450); RED BLOOD COUNT 3.29 10^6/uL (4.00-5.40); RED CELL DISTRIBUTION WIDTH 14.6 % (11.5-14.5); WHITE BLOOD COUNT 8.6 10^3/uL (4.0-10.0)
[2017-09-29 13:42] LABS: ALBUMIN 3.2 GM/DL (3.2-5.2); ALKALINE PHOSPHATASE 109 U/L (45-117); ALT/SGPT 21 U/L (12-78); ANION GAP 8 MEQ/L (8-16); AST/SGOT 13 U/L (7-37); BILIRUBIN,TOTAL 0.5 MG/DL (0.2-1.0); BLOOD UREA NITROGEN 34 MG/DL (7-18); CALCIUM LEVEL 8.5 MG/DL (8.8-10.2); CARBON DIOXIDE LEVEL 30 MEQ/L (21-32); CHLORIDE LEVEL 107 MEQ/L (98-107); CHOLESTEROL LEVEL 103 MG/DL (<200); CHOLESTEROL RISK RATIO 3.029 (<5); FERRITIN 254 NG/ML (8-252); GLOMERULAR FILTRATION RATE 25.2 (>45); GLUCOSE, FASTING 121 MG/DL (70-100); HDL CHOLESTEROL 34 MG/DL (>40); IRON (FE) 40 UG/DL (50-170); NON-HDL-C 69 MG/DL; PERCENT SATURATION 15.6 % (13.2-45.0); POTASSIUM SERUM 4.1 MEQ/L (3.5-5.1); SODIUM LEVEL 145 MEQ/L (136-145); TOTAL IRON BINDING CAPACITY 257 UG/DL (250-450); TOTAL PROTEIN 6.4 GM/DL (6.4-8.2); TRIGLYCERIDES LEVEL 85 MG/DL (<150)
[2017-09-29 14:13] LABS: ESTIMATED AVERAGE GLUCOSE 180 MG/DL (60-110); HEMOGLOBIN A1c 7.9 %
== END ==
LOC: M WUC 09:19
DX: E11.42 Type 2 diabetes mellitus with diabetic polyneuropathy (principal); R35.0 Frequency of micturition; D63.8 Anemia in other chronic diseases classified elsewhere; E78.2 Mixed hyperlipidemia
CPT/HCPCS: 83550

== ENCOUNTER → 2018-04-21 | Outpatient (REF) | payer MEDICARE ==
[~2018-04-21] MED LIST changes: -AMLO5TAB2 PO; +AMLO5TAB6 PO; -DRIS50002 PO; +DRIS50003 PO; -GABA-282 PO; +GABA-843 PO; +LASI80TA3 PO; -ROCE1INJ4 INJ; +ROCE1INJ6 INJ; +SPIR-10 PO; -SPIR25TA2 PO; +TRAM50TA2 PO
== END ==
LOC: M LAB REF 17:04
PROVIDERS: ATTEND Podiatrist
DX: L03.031 Cellulitis of right toe (principal); M79.675 Pain in left toe(s)

== ENCOUNTER 2018-05-17 15:19 | Inpatient (IN) | payer MEDICARE ==
[~2018-05-17] VITALS: Ht 177.8 cm; Wt 123.7 kg
[~2018-05-17 15:19] MED LIST changes: -/GLIM4TA PO; -/MAGN40TA PO; -/MOM400 PO; -/MOXI40TA PO; +AMAR1TAB6 PO; +ASPI81TA26 PO; +AVEL1TAB2 PO; +CEFD1CAP8 PO; -CEFD300CAP PO; +CEFT1INJ65 IV; -CEFT2VL IV; -DOCU10ELUD PO; +DOCU5LIQ PO; +KETO0.05 EXT; -KETO2CR EXT; +MAGN400T15 PO; +MILK10SU PO; +SILV-4 TOP; -SILV40CR TOP
[2018-05-17] MEDS ORDERED: LABETALOL HCL 100 MG/20 ML VIAL IV STA ×2 (16:12→18:06)
[2018-05-17] MEDS ORDERED: ACETAMINOPHEN 325 MG TAB PO ONE (16:15)
[2018-05-17 16:34] LABS: BASO % 0.2 % (0.0-1.0); EOS % 0.1 % (0.0-3.0); HEMATOCRIT 27.2 % (36.0-47.0); HEMOGLOBIN 9.1 g/dl (12.0-15.5); LYMPH # 0.3 10^3/uL (1.5-4.5); LYMPH % 1.7 % (24.0-44.0); MEAN CORPUSCULAR HEMOGLOBIN 31.4 pg (27.0-33.0); MEAN CORPUSCULAR HGB CONC 33.5 g/dl (32.0-36.5); MEAN CORPUSCULAR VOLUME 93.8 fl (80.0-96.0); MONO # 1.3 10^3/uL (0.0-0.8); MONO % 6.4 % (0.0-5.0); NEUTROPHILS # 17.8 10^3/uL (1.8-7.7); NEUTROPHILS % 90.4 % (36.0-66.0); PLATELET COUNT, AUTOMATED 188 10^3/uL (150-450); WHITE BLOOD COUNT 19.7 10^3/uL (4.0-10.0)
[2018-05-17 16:57] LABS: CREATININE FOR GFR 2.9 MG/DL (0.55-1.30)
--- NOTE | 2018-05-17 16:57 | REP ---
Clinical: Pain. Technique: AP and lateral views of the left tibia / fibula. Findings: Moderate osteoarthritic degenerative changes to the knee and ankle noted. Diffuse soft tissue swelling is appreciated. No obvious acute fracture or dislocation. Impression: Swelling and degenerative changes. No acute fracture or dislocation. Electronically Signed by Isra Ortiz MD 05/17/2018 04:47 P
[2018-05-17 16:58] LABS: ALBUMIN 2.5 GM/DL (3.2-5.2); BILIRUBIN,DIRECT 0.4 MG/DL (0.0-0.2); BILIRUBIN,TOTAL 0.8 MG/DL (0.2-1.0); GLOMERULAR FILTRATION RATE 17.3 (>45); POTASSIUM SERUM 3.9 MEQ/L (3.5-5.1); TOTAL PROTEIN 6.3 GM/DL (6.4-8.2)
[2018-05-17 16:58] LABS: INFLUENZA A AMPLIFICATION NEGATIVE (NEGATIVE); INFLUENZA B AMPLIFICATION NEGATIVE (NEGATIVE)
--- NOTE | 2018-05-17 16:58 | REP ---
Clinical: Pain. Technique: AP, lateral, bilateral oblique views of the left foot. Comparison: 08/16/2013. Findings: Partial amputation of the 3-5TH toes noted. Moderate arthritic degenerative changes are appreciated throughout the foot and ankle. Diffuse swelling. No obvious acute fracture or dislocation. No specific findings are appreciated to confirm osteomyelitis. Impression: No definite radiographic evidence to confirm osteomyelitis. Electronically Signed by Isra Ortiz MD 05/17/2018 04:50 P
--- NOTE | 2018-05-17 16:59 | REP ---
Clinical: Systemic inflammatory response syndrome. Comparison: 06/28/2016. Findings: Mediastinum and cardiac silhouette are stable and mild cardiomegaly cannot be excluded. Subtle right lower lobe atelectasis is suggested. No obvious effusion. No pneumothorax. Skeletal structures intact. Impression: Right lower lobe opacities suggesting atelectasis. Electronically Signed by Isra Ortiz MD 05/17/2018 04:51 P
[2018-05-17] MEDS: NS 1,000 ML IV SCH ×3 (17:29→22:50)
[2018-05-17] MEDS ORDERED: cefTRIAXone SOD 2 GM in D5W MINI-BAG PLUS 50 ML IV ONE (17:30)
[2018-05-17] MEDS ORDERED: GABA-843 PO (18:38)
[2018-05-17] MEDS ORDERED: SPIR-10 PO (18:38)
[2018-05-17] MEDS ORDERED: TYLE325T5 PO (18:38)
[2018-05-17] MEDS ORDERED: MAGN400T2 PO (18:38)
[2018-05-17] MEDS ORDERED: IBUPROFEN 400 MG TAB PO ONE (19:15)
[2018-05-17] MEDS ORDERED: hydrALAZINE INJ 20 MG/ML VIAL IV STA (19:42)
[2018-05-17] MEDS ORDERED: PIPERACILLIN/TAZOBACTAM SOD 2.25 GM in D5W MINI-BAG PLUS 50 ML IV SCH (19:45)
[2018-05-17] MEDS ORDERED: GLUCAGON FOR INJ 1 MG VIAL (J1610) SC PRN (19:45)
[2018-05-17] MEDS ORDERED: GLUCOSE 4 GM CHEW TABLET PO PRN (19:45)
[2018-05-17] MEDS ORDERED: PIPERACILLIN/TAZOBACTAM SOD 2.25 GM in D5W MINI-BAG PLUS 50 ML IV ONE (20:00)
--- NOTE | 2018-05-17 20:44 | HPE ---
DATE OF ADMISSION: 05/17/2018 CHIEF COMPLAINT: Left lateral foot wound, status post fall yesterday. HISTORY OF THE PRESENT ILLNESS: This is a 67-year-old lady with a past medical history of diabetes, on insulin, hypertension, stage IV chronic kidney disease, follows with Dr. Dong, diabetic neuropathy, hyperlipidemia, who presents with a chief complaint of left lateral foot wound, status post a fall yesterday. The patient reports that yesterday she had a bad fall where she landed on her right side, and she did not notice any wound on her left foot after the fall. She does have severe neuropathy and may not have felt anything. When her came home from work yesterday, he saw a large wound on her lateral left foot and told her that she should come in for further evaluation. Of note, she has had fevers up to 102 for the last few days. She also reports some upper respiratory infection (URI) symptoms during this time as well and a slight cough. No sick contacts. She has had some decreased appetite during this time as well. REVIEW OF SYSTEMS: Negative in 14 out of 14 systems except as noted above. PAST MEDICAL HISTORY: As above in history of the present illness. PAST SURGICAL HISTORY: She has had right 2nd, 4th and 5th toe amputations, left 3rd, 4th, 5th toe amputations, a hysterectomy, cholecystectomy, partial appendectomy. HOME MEDICATIONS: Patient's home medications are: - Tylenol as needed for pain - vitamin D 50,000 every week - Lantus 60 units at bedtime - Tradjenta 5 mg daily - Sofia-Nicolas one tablet by mouth daily - aspirin 81 mg daily - Lipitor 40 mg at bedtime - calcitriol 0.25 mcg by mouth daily - Coreg 12.5 mg twice a day - Flexeril 10 mg by mouth nightly as needed for spasms - iron sulfate 325 mg by mouth twice a day - gabapentin 300 mg by mouth every morning and 600 mg by mouth nightly - Lantus 70 units subcu every morning - Imdur 30 mg by mouth daily - magnesium oxide 400 mg by mouth daily - paroxetine 40 mg by mouth daily - spironolactone 25 mg by mouth daily - torsemide 40 mg by mouth daily ALLERGIES: She is allergic to CITRIC ACID, HYDROCODONE, SODIUM BICARBONATE and TAPE. SOCIAL HISTORY: The patient lives with her . They have no children together. She does have two children from a previous marriage. No smoking. No alcohol. 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 FAMILY HISTORY: Noncontributory to this hospitalization. PHYSICAL EXAM: Vital Signs: Currently she is febrile to 101.6, pulse of 94, blood pressure 186/74, saturating 95% on room air. General: She is an obese lady who is pleasant and in no acute distress. HEENT Exam: Oropharynx is clear. Cardiovascular: Regular rate and rhythm. No murmurs, rubs, gallops. Lungs: Clear to auscultation bilaterally. Abdomen: Obese, nontender, nondistended. Extremities: No clubbing, cyanosis, edema. She has got right 2nd, 4th, 5th toe amputation and left 3-5 amputation. Skin: The patient has a large wound approximately 3 inches on her left lateral leg. It is draining some fluid. She has got some surrounding erythema. Neurologic: She is alert and oriented times three, follows simple commands. Psychiatric: Mood stable. LABS: Show a sodium of 129; her last one was 145 in 2018. Creatinine is 2.9, which is within her baseline. CBC shows a white count to 19.7, hemoglobin of 9, platelets of 188. Urine shows 11 white blood cells (whites), 61 red blood cells (reds), 1+ bacteria, trace leukocyte esterase. Flu was negative. IMAGING: Chest x-ray shows right lower lobe opacity suggesting atelectasis. Tibia-fibula (tib-fib) x-ray of the left foot shows swelling and degenerative changes. No fracture or dislocation. Foot x-ray on the left shows no definitive evidence to confirm osteomyelitis. ASSESSMENT AND PLAN: This is a 67-year-old female with a past medical history of diabetes, hypertension, stage IV chronic kidney disease with significant diabetic neuropathy, who presents status post fall yesterday with a left foot wound, found to be septic. PROBLEMS: 1. Sepsis with likely source of infection being her left foot wound and a urinary tract infection. Patient does meet systemic inflammatory response syndrome (SIRS) criteria with fevers on admission, slight tachycardia and a leukocytosis to 19. She already received fluid resuscitation in the ER, and I will give her normal saline at 100 mL an hour. I will give her broad-spectrum antibiotics with Zosyn. Dr. Calixto has already been called by the emergency room doctor, so I will place an order in the chart. Her UTI will also be treated by the [facility]. We will follow her cultures. Dr. Calixto will see the patient tomorrow and can decide if an MRI should be obtained. The x-ray for now does not show any evidence of osteomyelitis. I will add on an ESR and CRP to her labs. 2. Diabetes. She is on quite a high dose of insulin with Lantus 70 units in the morning and 60 units at night. I have converted this to detemir. I have placed her on a sliding scale. 3. Hypertension. The patient does have a history of hypertension and says she is compliant with her medications. She did receive a couple of doses of labetalol 20 mg IV in the ER. I am also going to give her one more dose of IV hydralazine given her current pressure is 186/74. I am starting her home medications. These may need to be up titrated for more optimal blood pressure control. She is to continue her home torsemide, spironolactone, Coreg. Primary team can consider starting amlodipine tomorrow. 4. Chronic kidney disease, stage IV. Patient follows with Dr. Dong. Her creatinine seems to be close to her baseline. 5. Hyponatremia. This is probably hypovolemic hyponatremia given patient reports poor oral intake during this time. I am giving her IV fluids, and we can recheck a sodium tomorrow. We will make sure that the sodium is not rapidly correcting. 6. Hyperlipidemia. Continue home statin. 7. Deep vein thrombosis (DVT) prophylaxis. Patient is on subcu heparin.
[2018-05-17 20:55] LABS: C REACTIVE PROTEIN QUANTITATIV 29.9 MG/DL (0.00-0.30)
[2018-05-17] MEDS ORDERED: LEVEMIR (INSULIN DETEMIR) 1 UNITS/0.01ML SC SCH (21:00)
[2018-05-17] MEDS: HumaLOG INSULIN (NovoLOG) PER UNIT SC SCH (21:00)
[2018-05-17] MEDS: FERROUS SULFATE 325MG TAB PO SCH (21:09)
[2018-05-17] MEDS: GABAPENTIN 300 MG CAP PO SCH (21:09)
[2018-05-17] MEDS: ASPIRIN 81 MG ENTERIC TAB PO SCH (21:09)
[2018-05-17] MEDS: CARVedilol 12.5 MG TAB PO SCH (21:09)
[2018-05-17] MEDS: ATORVASTATIN 20 MG TAB PO SCH (21:09)
[2018-05-17] MEDS: PIPERACILLIN/TAZOBACTAM SOD 2.25 GM in D5W MINI-BAG PLUS 50 ML IV SCH (21:13)
[2018-05-17 21:58] LABS: ERYTHROCYTE SEDIMENTATION RATE > 140 mm/hr (0-30)
[2018-05-18] MEDS: CYCLOBENZAPRINE 10 MG TAB PO PRN (01:20)
[2018-05-18] MEDS: ACETAMINOPHEN TAB 650MG DOSE (2X325MG) PO PRN ×3 (01:21→15:41)
[2018-05-18] MEDS: PIPERACILLIN/TAZOBACTAM SOD 2.25 GM in D5W MINI-BAG PLUS 50 ML IV SCH ×2 (04:39→10:18)
[2018-05-18] MEDS: HEPARIN SOD (PORCINE) 5000 UNITS/ML VIAL SC SCH ×3 (06:24→22:00)
[2018-05-18 08:37] LABS: HEMATOCRIT 27.3 % (36.0-47.0); HEMOGLOBIN 8.7 g/dl (12.0-15.5); MEAN CORPUSCULAR HEMOGLOBIN 30.4 pg (27.0-33.0); MEAN CORPUSCULAR HGB CONC 31.9 g/dl (32.0-36.5); MEAN CORPUSCULAR VOLUME 95.5 fl (80.0-96.0); PLATELET COUNT, AUTOMATED 179 10^3/uL (150-450); RED BLOOD COUNT 2.86 10^6/uL (4.00-5.40); WHITE BLOOD COUNT 18.8 10^3/uL (4.0-10.0)
[2018-05-18] MEDS: NS 1,000 ML IV SCH (08:58)
[2018-05-18] MEDS ORDERED: LEVEMIR (INSULIN DETEMIR) 1 UNITS/0.01ML SC SCH ×2 (09:00→21:00)
[2018-05-18] MEDS: CALCITRIOL 0.25 MCG CAP (S0169) PO SCH (09:00)
[2018-05-18] MEDS ORDERED: TORSEMIDE 20 MG TAB PO SCH (09:00)
[2018-05-18 09:04] LABS: CALCIUM LEVEL 8.4 MG/DL (8.8-10.2); CREATININE FOR GFR 2.88 MG/DL (0.55-1.30); GLOMERULAR FILTRATION RATE 17.5 (>45); POTASSIUM SERUM 3.7 MEQ/L (3.5-5.1)
[2018-05-18] MEDS: PARoxetine 20 MG TAB PO SCH (10:19)
[2018-05-18] MEDS: ISOSORBIDE MON. (IMDUR) 30 MG XR TAB PO SCH (10:19)
[2018-05-18] MEDS: CARVedilol 12.5 MG TAB PO SCH ×2 (10:20→21:01)
[2018-05-18] MEDS: SPIRONOLACTONE 25 MG TAB PO SCH (10:21)
[2018-05-18] MEDS: MAGNESIUM OXIDE 400 MG TAB (MAG-OX) PO SCH (10:21)
[2018-05-18] MEDS: FERROUS SULFATE 325MG TAB PO SCH ×2 (10:21→21:00)
[2018-05-18] MEDS: GABAPENTIN 300 MG CAP PO SCH ×2 (10:25→21:01)
[2018-05-18] MEDS: FUROSEMIDE 100 MG/10 ML VIAL (J1940) IV SCH ×2 (10:27→17:29)
[2018-05-18] MEDS: LEVEMIR (INSULIN DETEMIR) 1 UNITS/0.01ML SC SCH (10:30)
[2018-05-18 10:58] LABS: C REACTIVE PROTEIN QUANTITATIV 30.2 MG/DL (0.00-0.30)
--- NOTE | 2018-05-18 12:36 | IPNPDOC ---
Subjective Date Seen The patient was seen on 05/18/18. Subjective Chief Complaint/HPI Patient complaining of a fall that she suffered yesterday. She fell on her left side and sustained an injury to her left lateral foot Patient states thursday morning she fell onto her left side and could not get up until her arrived. Later that day he noticed the wound on the left side of her foot. They decided to come into the ED because it looked like it could be worsening. This morning she states she is feeling well. She admits to fevers, chills, cough with productive sputum from a URI she had beginning around 05/04 that she feels like has been getting better. 1600- At bedside, patient feels like pain is not well controlled and looks acutely uncomfortable. Tender to palpation over R/L iliac crests. Objective Physical Examination General Exam: Positive: Alert, Cooperative, No Acute Distress Eye Exam: Positive: EOMI; Negative: Sclera icteric ENT Exam: Positive: Atraumatic, Mucous membr. moist/pink, Pharynx Normal Chest Exam: Positive: Clear to auscultation, Rales (bilateral lower lobe crackles), Diminished (2/2 to body habitus); Negative: Wheezing Heart Exam: Positive: Rate Normal, Normal S1, Normal S2; Negative: Gallops, Murmurs, Rubs Abdomen Exam: Positive: Normal bowel sounds, Soft (obese abdomen); Negative: Tenderness Extremity Exam: Positive: Edema (2+ pitting edema in bilateral lower extremities), Normal pulses, Other (Left lateral foot shows a circular 5 cm foot wound with serosanguinous drainage); Negative: Cyanosis Skin Exam: Positive: Nl turgor and temperature Neuro Exam: Positive: Normal Speech Psych Exam: Positive: Mental status NL, Mood NL Assessment /Plan Problems (1) Diabetic foot infection Status: Acute Problem Text: Dr. Calixto has been consulted and will see the patient today. He has requested an MRI without contrast be ordered to look for suspected osteomyelitis. Given that her blood culture was positive we will be consulting infectious disease and placing her on vancomycin as well as Zosyn which should cover both the UTI and her foot wound. We have stopped her fluids as she has 2+ pitting edema with crackles in her lungs. (2) UTI (urinary tract infection) Status: Resolved Problem Text: 05/18UA positive, cultures pending, treating with Zosyn. (3) Diastolic CHF Status: Acute Problem Text: 05/18patient is clearly in volume overload with 2+ pitting edema and crackles in bilateral lungs. We are ordering net-negative IV Lasix dosing to diurese her. (4) CKD (chronic kidney disease), stage IV Status: Chronic Discussed With: Other Discussed With: (5) DM2 (diabetes mellitus, type 2) Status: Chronic Problem Text: 05/18Overnight patient was on her regular dosing of home insulin and had an episode of hypoglycemia this morning. We are cutting her basal insuli n dosing in half and keep her on sliding scale. (6) Hyponatremia Status: Acute Problem Text: 05/18patient had sodium of 129 at admission and after a night of IV fluids sodium improved to 133. Questioning whether this patient had a hypervolemic hyponatremia given her volume status. (7) Hyperlipidemia Status: Chronic Problem Text: Continue with home medications (8) HTN (hypertension) Status: Chronic Problem Text: Patient okay to continue with home medications. Plan/VTE VTE Prophylaxis Ordered?: Yes VS, I&O, 24H, Fishbone Vital Signs/I&O Vital Signs Date Time Temp Pulse Resp B/P (MAP) Pulse Ox O2 Delivery O2 Flow Rate FiO2 05/18/18 10:20 100 154/70 05/18/18 09:53 22 92 Nasal Cannula 2.0 05/18/18 08:36 97.7 I&O- Last 24 Hours up to 6 AM 05/18/18 06:00 Intake Total 1850 ml Balance 1850 ml Laboratory Data 24H LABS Laboratory Tests 2 05/17/18 16:19: Immature Granulocyte % (Auto) 1.2, White Blood Count 19.7H, Red Blood Count 2.90L, Hemoglobin 9.1L, Hematocrit 27.2L, Mean Corpuscular Volume 93.8, Mean Corpuscular Hemoglobin 31.4, Mean Corpuscular Hemoglobin Concent 33.5, Red Cell Distribution Width 13.7, Platelet Count 188, Neutrophils (%) (Auto) 90.4H, Lymphocytes (%) (Auto) 1.7L, Monocytes (%) (Auto) 6.4H, Eosinophils (%) (Auto) 0.1, Basophils (%) (Auto) 0.2, Neutrophils # (Auto) 17.8H, Lymphocytes # (Auto) 0.3L, Monocytes # (Auto) 1.3H, Eosinophils # (Auto) 0.0, Basophils # (Auto) 0.0, Nucleated Red Blood Cells % (auto) 0.0, Erythrocyte Sedimentation Rate > 140H, Anion Gap 10, Glomerular Filtration Rate 17.3L, Calcium Level 8.0L, Aspartate Amino Transf (AST/SGOT) 43H, Alanine Aminotransferase (ALT/SGPT) 33, Alkaline Phosphatase 181H, Total Bilirubin 0.8, Direct Bilirubin 0.4H, C-Reactive Protein, Quantitative 29.90H, Total Protein 6.3L, Albumin 2.5L, Albumin/Globulin Ratio 0.66L 05/17/18 16:20: Lactic Acid Level 1.4, Influenza Type A (RT-PCR) NEGATIVE, Influenza Type B (RT- PCR) NEGATIVE 05/17/18 17:03: Urine Color YELLOW, Urine Appearance CLOUDYH, Urine pH 5.0, Urine Specific [place] 1.017, Urine Protein 2+H, Urine Glucose (UA) 1+H, Urine Ketones NEGATIVE, Urine Blood 2+H, Urine Nitrite NEGATIVE, Urine Bilirubin NEGATIVE, Urine Urobilinogen 2.0H, Urine Leukocyte Esterase TRACEH, Urine WBC (Auto) 11H, Urine RBC (Auto) 61H, Urine Hyaline Casts (Auto) 1, Urine Bacteria (Auto) 1+H, Urine Squamous Epithelial Cells 16, Urine Transitional Epithelial Cells <1, Urine Amorphous Sediment SMALLH, Urine Mucus (Auto) SMALL, Urine Sperm (Auto) 05/17/18 22:01: Bedside Glucose (Misc Panel) 186H 05/18/18 08:26: Nucleated Red Blood Cells % (auto) 0.0, Anion Gap 8, Glomerular Filtration Rate 17.5L, Blood Urea Nitrogen 58H, Creatinine 2.88H, Sodium Level 133L, Potassium Level 3.7, Chloride Level 99, Carbon Dioxide Level 26, Calcium Level 8.4L, C- Reactive Protein, Quantitative 30.20H 05/18/18 09:27: Bedside Glucose (Misc Panel) 41L 05/18/18 09:30: Bedside Glucose (Misc Panel) 48L 05/18/18 10:00: Bedside Glucose (Misc Panel) 131H CBC/BMP Laboratory Tests 05/17/18 16:19 Red Blood Count 2.90 L, Mean Corpuscular Volume 93.8, Mean Corpuscular Hemoglobin 31.4, Mean Corpuscular Hemoglobin Concent 33.5, Red Cell Distribution Width 13.7, Neutrophils (%) (Auto) 90.4 H, Lymphocytes (%) (Auto) 1.7 L, Monocytes (%) (Auto) 6.4 H, Eosinophils (%) (Auto) 0.1, Basophils (%) (Auto) 0.2, Neutrophils # (Auto) 17.8 H, Lymphocytes # (Auto) 0.3 L, Monocytes # (Auto) 1.3 H, Eosinophils # (Auto) 0.0, Basophils # (Auto) 0.0 05/18/18 08:26 Red Blood Count 2.86 L, Mean Corpuscular Volume 95.5, Mean Corpuscular Hemoglobin 30.4, Mean Corpuscular Hemoglobin Concent 31.9 L, Red Cell Distribution Width 13.8, Calcium Level 8.4 L Microbiology Microbiology 05/18/18 Blood Culture, Received Pending 05/17/18 Blood Culture, Received Pending 05/17/18 Urine Culture - Final, Complete 05/17/18 Wound Culture - Preliminary, Resulted Staphylococcus Aureus GME ATTESTATION GME ATTESTATION My faculty preceptor for this patient encounter was physically present during the encounter and was fully available. All aspects of the patient interview, examination, medical decision making process, and medical care plan development were reviewed and approved by the faculty preceptor. The faculty preceptor is aware and concurs with the plan as stated in the body of this note and will attest to such by his/her cosignature. JESSICA YE DO May 18, 2018 12:36
[2018-05-18 14:10] VITALS: BP 176/70
[2018-05-18] MEDS ORDERED: VANCOMYCIN HCL 1,000 MG, VIAL MATE ADAPTER 1 EACH in D5W 250 ML IV SCH ×7 (15:00→21:00)
--- NOTE | 2018-05-18 17:04 | REP ---
Clinical: Trauma/fall. Technique: Frontal view of the pelvis with neutral and frog lateral views of the right and left hip. Findings: Mild/moderate arthritic changes of bilateral hips (right greater than left) includes subchondral sclerosis, marginal spurring and minimal joint space narrowing. Enthesopathy along the pelvic rim is also appreciated. There is no evidence for acute fracture or dislocation. Impression: Mild/early moderate degenerative changes to the bilateral hips/pelvis. No acute fracture or dislocation. Electronically Signed by Isra Ortzi MD 05/18/2018 04:56 P
[2018-05-18] MEDS: traMADol 50 MG TAB PO PRN (17:29)
--- NOTE | 2018-05-18 17:32 | REP ---
Clinical: Bilateral calf pain . Technique: Huber scale and color Doppler evaluation using linear high frequency transducer. Findings: Ultrasound examination of the right and left lower extremity deep venous structures from the common femoral vein to the popliteal vein demonstrates normal compressibility flow and wave patterns in response to respiration and augmentation. There is no evidence for deep venous thrombosis. Impression: No evidence for deep venous thrombosis. Electronically Signed by Isra Ortiz MD 05/18/2018 05:24 P
[2018-05-18 18:00] VITALS: BP 146/58
[2018-05-18] MEDS: SILVER SULFADIAZINE 1% CR 50 GM JAR TOP SCH ×2 (18:24→21:00)
[2018-05-18] MEDS ORDERED: PIPERACILLIN/TAZOBACTAM SOD 2.25 GM in D5W MINI-BAG PLUS 50 ML IV SCH (19:00)
--- NOTE | 2018-05-18 19:06 | PHACANCOPD ---
PHARMACY VANCOMYCIN DOSING Pt Demographics Demographics Patient Age:67 , Weight:134.000 , Gender: female Adjusted Body Weight Date: 05/18/18, Adjusted Body Weight: Kg Events Past 24 Hours Events Past 24 Hours: YES: Elevation in WBC, Pending Diagnostics Vancomycin Vancomycin indication: DIABETIC FOOT INFECTION Vancomycin Target Ranges: 15-20 mcg/ml Vancomycin Load Y/N: Yes Load Dose Date Time Vancomycin Load Dose: 1g given 05/18/18@1500, then 1g given 05/18/18 @2100 for a total loading dose of 2g Vancomycin Dose Date: 05/18/18. Current Vancomycin Dose: [1g IV Q24H] Intermittent Dosing?: No Labs Labs Item Value Date Time White Blood Count 19.7 10^3/uL H 05/17/18 1619 White Blood Count 18.8 10^3/uL H 05/18/18 0826 Erythrocyte Sedimentation Rate > 140 mm/hr H 05/17/18 1619 Creatinine 2.90 MG/DL H 05/17/18 1619 Creatinine 2.88 MG/DL H 05/18/18 0826 Lactic Acid Level 1.4 MMOL/L 05/17/18 1620 C-Reactive Protein, Quantitative 29.90 MG/DL H 05/17/18 1619 C-Reactive Protein, Quantitative 30.20 MG/DL H 05/18/18 0826 Micro Microbiology 05/18/18 Blood Culture, Received Pending 05/17/18 Blood Culture - Preliminary, Resulted Staphylococcus Aureus 05/17/18 Urine Culture - Final, Complete 05/17/18 Wound Culture - Preliminary, Resulted Staphylococcus Aureus Creatinine Clearance Date:05/18/18. Est Creatinine Clearance: [~22 ml/min]. Assessment and Plan Maintaining Current Dose?: Yes Reason for dose change: No Dose Change Pharmacist Note Pharmacist Note Date: 05/18/18. Pharmacist note: Day #1 vancomycin therapy initiated with a 2g loading dose based on pt BMI>40 (1g given ~1500, then 1g given ~2100 spaced out to help protect kidneys), followed by a maintenance regimen of 1g IV Q24H for the treatment of sepsis 2/2 a diabetic left foot wound infection and UTI - aiming for a goal trough level of 15-20mcg/ml. The patient has a PMH of CKD stage IV. It is noted that the patient is also on scheduled IV lasix and spironolactone - so kidney function will need to be monitored closely with the use of concomitant nephrotoxins. Blood cultures are growing staph aureus, as is the wound culture from the left foot. WBC, ESR, and CRP are elevated. LA WNL. The patient was febrile on admit. The patient does have a hx of MRSA infection from the right foot in 2011, and also has a hx of vancomycin use here at [facility]. We will continue to monitor renal function closely, and will schedule a trough level accordingly. BUDDY ROSSI [facility] May 18, 2018 19:06
--- NOTE | 2018-05-18 20:44 | REP ---
Clinical: Hypoxia . Comparison: 05/17/2018 . Findings: Examination is limited by portable technique which accentuates the pulmonary vasculature and interstitium. As such, mild interstitial edema as well as bronchitis cannot be excluded. No focal consolidation. No obvious effusion. No pneumothorax. Mediastinum and cardiac silhouette are stable. Skeletal structures intact. Impression: Limited by portable technique. Cannot exclude mild interstitial edema or bronchitis. Electronically Signed by Isra Ortiz MD 05/18/2018 08:36 P
--- NOTE | 2018-05-18 20:55 | REPVR ---
EXAM: MRI Left Lower Extremity Without Contrast, Foot EXAM DATE/TIME: 05/18/2018 4:15 PM CLINICAL HISTORY: 67 years old, female; Condition or disease; Other: Open wound lateral foot; Prior surgery; Surgery date: 6+ months; Surgery type: Amputation; Patient HX: Wound on lateral foot, HX prior surg; Additional info: Diabetic foot wound, suspect osteomyelitis TECHNIQUE: Imaging protocol: MR of the Left foot without intravenous contrast. COMPARISON: MRI FOOT WITHOUT CONTRAST 06/06/2013 4:15 PM FINDINGS: LIGAMENTS: TENDONS: Flexors: Unremarkable. No evidence of tear. Extensors: Unremarkable. No evidence of tear. Peroneal: Unremarkable. No evidence of tear. Muscles: Edema noted on the T2-weighted images within the intrinsic muscles of the foot including the abductor hallucis, flexor digitorum brevis and quadratus plantar muscle Fluid: Fluid is noted within the tibiotalar joint.. Plantar fascia: Unremarkable. Bones/joints: Subchondral cysts noted bordering the intertarsal joints and the third tarsometatarsal joint. Motion artifact degrades image quality. There's been amputation of the third, fourth and fifth digits. Subchondral cysts noted on both sides of the first tarsometatarsal joint. Soft tissues: Soft tissue thickening noted on the plantar side of the foot extending distally from the base of the fifth metatarsal . An area of susceptibility effect noted within the soft tissues lateral to the base of the fifth metatarsal suggests surgical clips/sutures related to previous surgery. Edema noted within the soft tissues on the dorsum of the forefoot. Edema surrounds the medial and lateral malleolus. IMPRESSION: 1. Motion artifact degrades image quality. No definite evidence of osteomyelitis. 2. Degenerative changes noted in the mid foot. 3. Postoperative changes related to amputation of the third, fourth and fifth digits. 4. Edema noted within the intrinsic muscles on the plantar side of the foot as described above Electronically signed by: Ese Ohara On 05/18/2018 20:54:55 PM
[2018-05-18] MEDS ORDERED: FUROSEMIDE 40 MG/4 ML VIAL (J1940) IV ONE (21:00)
[2018-05-18] MEDS: HumaLOG INSULIN (NovoLOG) PER UNIT SC SCH (21:00)
[2018-05-18] MEDS: ATORVASTATIN 20 MG TAB PO SCH (21:00)
[2018-05-18] MEDS: ASPIRIN 81 MG ENTERIC TAB PO SCH (21:01)
[2018-05-18 21:45] VITALS: BP 172/60
[2018-05-18 22:00] VITALS: BP 177/77
[2018-05-18 22:27] LABS: CPK CREATINE PHOSPHOKINASE 420 U/L (26-192); MB/CK RELATIVE INDEX 1.45 (< OR =4); TROPONIN I < 0.02 NG/ML (< 0.10)
[2018-05-18 23:59] VITALS: BP 144/70
[2018-05-19] VITALS (7 sets, daily range): BP systolic 142–166; BP diastolic 54–76
[2018-05-19] MEDS: DEXTROSE 50% 50 ML SYRINGE IV PRN ×2 (04:53→08:11)
[2018-05-19 05:32] LABS: HEMATOCRIT 25.3 % (36.0-47.0); HEMOGLOBIN 8.1 g/dl (12.0-15.5); MEAN CORPUSCULAR VOLUME 93.7 fl (80.0-96.0); PLATELET COUNT, AUTOMATED 181 10^3/uL (150-450); WHITE BLOOD COUNT 19.5 10^3/uL (4.0-10.0)
[2018-05-19 05:58] LABS: C REACTIVE PROTEIN QUANTITATIV 30.8 MG/DL (0.00-0.30); CALCIUM LEVEL 7.6 MG/DL (8.8-10.2); CREATININE FOR GFR 3.02 MG/DL (0.55-1.30); GLOMERULAR FILTRATION RATE 16.5 (>45); POTASSIUM SERUM 3.5 MEQ/L (3.5-5.1)
[2018-05-19] MEDS: FUROSEMIDE 100 MG/10 ML VIAL (J1940) IV SCH ×4 (06:00→17:22)
[2018-05-19] MEDS: HEPARIN SOD (PORCINE) 5000 UNITS/ML VIAL SC SCH ×3 (06:00→21:07)
[2018-05-19 06:35] LABS: ABG HCO3 25.2 MEQ/L (22.0-26.0); ABG PARTIAL PRESSURE CO2 43.3 mmHg (35.0-45.0); ABG PARTIAL PRESSURE O2 103.2 mmHg (75.0-100.0); ABG STANDARD HCO3 24.5 MEQ/L (22.0-26.0); ABG TOTAL CO2 26.5 MEQ/L (23.0-31.0); ABG pH (ARTERIAL) 7.382 UNITS (7.350-7.450)
--- NOTE | 2018-05-19 07:33 | IPN ---
DATE OF VISIT: 05/18/2018 TIME: 05:42 p.m. CHIEF COMPLAINT: Patient seen for evaluation of a left foot wound. The patient states that Thursday she was in the kitchen, slipped and fell, injured her left foot. She states that she was lying on the floor for 2 hours before her came home and discovered the wound. Subsequently the wound got red, swollen and infected, went to the emergency room where she was admitted and she is seen today for evaluation. PAST MEDICAL HISTORY: Diabetes. Hypertension. Chronic kidney disease, stage IV. Hyponatremia. Hyperlipidemia. History of osteomyelitis with diabetic foot amputation. Diabetic neuropathy. PAST SURGICAL HISTORY: Right second 4th and 5th toe amputations, left foot 3rd, 4th and 5th toe amputations. Hysterectomy. Cholecystectomy. Appendectomy. HOME MEDICATIONS: - Tylenol - vitamin D - Lantus 60 units at bedtime - Tradjenta 5 mg daily - Sofia-Nicolas one tablet daily - 81 mg aspirin daily - Lipitor 40 mg at bedtime - calcitriol 25 mcg daily - Coreg 12.5 mg twice a day - Flexeril 10 mg nightly as needed for leg spasms - iron sulfate 325 mg twice a day - gabapentin 300 mg in the morning, 600 mg at night - Lantus 70 units in the morning - Imdur 30 mg daily - magnesium oxide 400 mg daily - paroxetine 40 mg daily - spironolactone 25 mg daily - torsemide 40 mg daily ALLERGIES: 1. CITRIC ACID. 2. HYDROCODONE. 3. SODIUM BICARB. 4. TAPE. PHYSICAL EXAMINATION: Reveals an alert, well oriented 67-year-old female. She is complaining of hip pain secondary to her fall. She has a dressing on her left foot. This was removed today and swelling and erythema is noted. There is a large blister coming from the dorsal aspect of an ulcer on the lateral surface of the foot in the location of the 5th metatarsal tuberosity. The ulcer itself prior to debridement measured 2 cm x 2.5 cm, dorsally the blister extends 8 cm. After appropriate time out and consent, utilizing a sterile kay dermal curette, the ulcer was debrided excisionally through the subcutaneous tissues and capsular structures to the muscle belly. The bone was not exposed. X-rays were reviewed revealing no signs of osteomyelitis. Reveals a dislocated second metatarsal phalangeal joint which is old in nature. There has been an amputation of the 3rd, 4th and 5th toes. No signs of osteomyelitis. There is acute fractures. Laboratory studies were reviewed revealing a white count on admission of 19.7, today is 18.8, ESR is greater than 140, C-reactive protein 30.2, GFR 17.5. ASSESSMENT: Infected diabetic foot ulcer, stage IV, lateral aspect of the left foot. PLAN: Cultures are pending. The preliminary blood culture revealed Staphylococcus Aureus. The ulcer after debridement is 2.5 cm x 3 cm. It is 4 mm in depth, does not undermine. The wound was cleansed with Vashe. After 15 minutes, Silvadene and a sterile dressing was applied. Order is written to clean the wound with Vashe, after 15 minutes apply Silvadene and dressing every 8 hours. The patient's questions are answered.
[2018-05-19] MEDS: LEVEMIR (INSULIN DETEMIR) 1 UNITS/0.01ML SC SCH (08:57)
[2018-05-19] MEDS: ISOSORBIDE MON. (IMDUR) 30 MG XR TAB PO SCH (08:58)
[2018-05-19] MEDS: CALCITRIOL 0.25 MCG CAP (S0169) PO SCH (08:58)
[2018-05-19] MEDS: FERROUS SULFATE 325MG TAB PO SCH ×2 (08:58→21:00)
[2018-05-19] MEDS: GABAPENTIN 300 MG CAP PO SCH ×2 (08:58→21:06)
[2018-05-19] MEDS: MAGNESIUM OXIDE 400 MG TAB (MAG-OX) PO SCH (08:58)
[2018-05-19] MEDS: PARoxetine 20 MG TAB PO SCH (08:58)
[2018-05-19] MEDS: SPIRONOLACTONE 25 MG TAB PO SCH (08:58)
[2018-05-19] MEDS: CARVedilol 12.5 MG TAB PO SCH ×2 (08:59→21:05)
[2018-05-19] MEDS: SILVER SULFADIAZINE 1% CR 50 GM JAR TOP SCH ×3 (09:00→21:00)
--- NOTE | 2018-05-19 10:13 | CR ---
DATE OF CONSULTATION: 05/18/2018 Asked to consult by hospitalist for Staphylococcus aureus bacteremia with cellulitis of the left foot. HISTORY OF PRESENT ILLNESS: Norma is a 67-year-old female with a history of insulin-dependent diabetes with chronic kidney disease stage IV and diabetic neuropathy who presented to the hospital after she had a fall, landing on her right side, because of weakness. After the fall, she noticed that her left foot had a large lesion with redness, and she developed a fever of 102. The patient denies any trauma to the foot, had not changed shoes, and does not recall what triggered that blistering lesion. She stated that a couple days prior to admission, her had been tending to a diabetic foot ulcer on the bottom of the left foot and that lesion was not present. In the emergency room (ER), she was noted to have a fever over 102. She was septic. She received 4 liters of intravenous (IV) fluids and had increasing shortness of breath today. When we saw her today, she was walking back from the bathroom. She looked pale, short of breath. Complained of some chest pain. Oxygen (O2) saturation was 89% to 90% on room air. The patient was started on oxygen. A portable chest x-ray was obtained and the patient transferred to the progressive care unit (PCU). She had been on IV vancomycin and Zosyn for the past 24 hours. PAST MEDICAL HISTORY: Is significant for insulin-dependent diabetes, stage IV kidney disease, diabetic neuropathy, hyperlipidemia, morbid obesity, osteomyelitis of multiple toes with multiple amputations, history of depression, congestive heart failure. ALLERGIES: CITRIC ACID, HYDROCODONE, SODIUM BICARBONATE, and TAPE. SOCIAL HISTORY: She lives with her . They do not have any children together, but she had two children from a previous marriage. She does not smoke or use alcohol. PAST SURGICAL HISTORY: She has amputation of 2nd, 4th, and 5th toe on the right side and left 3rd, 4th, and 5th toes done by Dr. leos. Hysterectomy, cholecystectomy, and appendectomy. MEDICATIONS: - Levemir 35 units in the morning and 30 units at bedtime - vancomycin 1 gram IV every 24 hours - furosemide 80 mg IV every 6 hours - Zosyn 2.25 grams IV every 6 hours - tramadol 50 mg by mouth every 8 as needed - Silvadene topical to the left foot - gabapentin 300 mg by mouth every morning - Isordil 30 mg daily - magnesium oxide 400 mg by mouth daily - Aldactone 25 mg by mouth daily - calcitriol 0.25 mcg by mouth daily - Paxil 40 mg by mouth daily - aspirin 81 by mouth nightly - atorvastatin 40 mg by mouth nightly - Coreg 12.5 mg by mouth twice a day - iron sulfate 325 mg by mouth twice a day - gabapentin 600 mg by mouth nightly IMAGING: Foot MRI was done this afternoon, is pending. Foot x-ray showed no acute osteomyelitis and no fractures. Hip x-ray and pelvis shows mild [id number] degenerative disc disease of both hips and pelvis. Ultrasound of lower extremities showed no evidence of deep venous thrombosis (DVT), right and left. Chest x-ray done on admission shows a right lower lobe opacity suggestive of atelectasis. A portable chest was obtained tonight to rule out congestive heart failure. LABORATORIES: White count was 18.8, hemoglobin 8.7, hematocrit 27.3, platelets 179, ESR more than 140. Sodium 133, potassium 3.7, chloride 99, bicarbonate 26, BUN 58, creatinine 2.8, glucose 48, calcium 8.4, lactic acid 1.4, CRP 30.2. Influenza A and B are negative. Blood cultures are positive for Staphylococcus aureus. Only one set was obtained yesterday. A second set was obtained today. Urine culture is negative. Foot culture has Staphylococcus aureus. Susceptibilities are still pending. On physical examination, she is pale looking, in moderate respiratory discomfort, wheezing. Temperature is 99.2, pulse 88, respirations 22, blood pressure 146/58, oxygen (O2) saturation 93% on 2 liters nasal cannula on room air. Her O2 saturation was 89% to 90%. Heart: Normal S1, S2. No murmurs appreciated. Distant lungs. Diminished breath sounds at the bases with few crackles. Abdomen: Morbidly obese, soft, nontender. No hepatosplenomegaly.. Extremities: +1 pitting edema bilaterally. Right foot has absent 2nd, 3rd, and 5th toe. Left foot has absent 3rd, 4th, and 5th toe/ All well-healed amputation sites. She has a large blister on the left foot over the 4th and 5th metatarsal with an ulceration measuring about 2 cm, 1 cm deep, with some purulent discharge and surrounding cellulitis. Neurologic examination: Alert and oriented times three. Motor strength is normal. REVIEW OF SYSTEMS: The patient had fever and shaking chills at home. Today, she has orthopnea, chest pain, and shortness of breath with increasing lower extremity edema since yesterday. She denies any nausea, vomiting, diarrhea. No urinary symptoms, dysuria, hematuria, or flank pain. IMPRESSION: This is a 67-year-old female with insulin-dependent diabetes, diabetic neuropathy, nephropathy, who was admitted with sepsis from cellulitis and abscess of left lower extremity with secondary Staphylococcus aureus bacteremia. She received 4 liters of IV fluids yesterday and today. The patient has developed congestive heart failure. She has been diuresed with 80 mg every 6 of Lasix, but her shortness of breath has increased. PLAN: She does not need at once (STAT) broad-spectrum. Continue with IV vancomycin renally dose 1 gram every 24 hours. If methicillin-resistant Staphylococcus aureus (MRSA), that would be the appropriate antibiotic. If methicillin-susceptible Staphylococcus aureus (MSSA), I would suggest switching her to cefazolin 2 grams IV every 12 hours. The patient will be transferred to PCU for congestive heart failure and chest pain. The case has been discussed with Dr. Del Castillo, who is contracting support specialist for the group. The patient had a portable chest x-ray. One dose of Lasix was ordered at 120 mg IV after discussing with the primary team. A bladder scan was done. She only had 10 mL of urine in her bladder, urinated. Dr. Leos has consulted. So far, there was no surgical intervention recommended. Will wait for results of MRI.
--- NOTE | 2018-05-19 11:39 | IPNPDOC ---
Subjective Date Seen The patient was seen on 05/19/18. Subjective Chief Complaint/HPI Patient is not feeling well this morning and states she just feels tired and crappy overall. Denies any chest pain, dyspnea, or hip, lower extremity pain at this time. Objective Physical Examination General Exam: Positive: Cooperative, No Acute Distress (Sick appearing); Negative: Alert (Slow to arouse, but easily rousable) Eye Exam: Positive: EOMI; Negative: Sclera icteric ENT Exam: Positive: Atraumatic, Mucous membr. moist/pink, Pharynx Normal Chest Exam: Positive: Clear to auscultation, Rales (bilateral lower lobe crackl es), Diminished (2/2 to body habitus); Negative: Wheezing Heart Exam: Positive: Rate Normal, Normal S1, Normal S2; Negative: Gallops, Murmurs, Rubs Abdomen Exam: Positive: Normal bowel sounds, Soft (obese abdomen); Negative: Tenderness Extremity Exam: Positive: Edema (1+ pitting edema in bilateral lower extremities), Normal pulses, Other (Left lateral foot shows a circular 5 cm foot wound with serosanguinous drainage); Negative: Cyanosis Skin Exam: Positive: Nl turgor and temperature Neuro Exam: Positive: Normal Speech Psych Exam: Positive: Mental status NL, Mood NL Assessment /Plan Problems (1) Diabetic foot infection Status: Acute Problem Text: 05/19- Dr. Calixto saw patient yesterday and debrided some of her wound at bedside. MRI was negative for osteomyelitis. Wound management per podiatry recommendations, which are appreciated. 05/18-Dr. Calixto has been consulted and will see the patient today. He has requested an MRI without contrast be ordered to look for suspected osteomyelitis. Given that her blood culture was positive we will be consulting infectious disease and placing her on vancomycin as well as Zosyn which should cover both the UTI and her foot wound. We have stopped her fluids as she has 2+ pitting edema with crackles in her lungs. (2) MSSA (methicillin susceptible Staphylococcus aureus) infection Status: Acute Problem Text: 05/19- ID consulted yesterday after blood and wound culture came back positive for staph. Recommendations are appreciated. Repeat blood cultures were ordered, first repeat is negative for growth. ID recommending changing Vancomycin to Cefazolin in light of MSSA growth. (3) Diastolic CHF Status: Acute Problem Text: 05/19- Patient was given 120 mg IV lasix dose last night as she was not putting out much urine, she has put out 1 L so far today. We will continue her on net negative lasix dosing. 05/18patient is clearly in volume overload with 2+ pitting edema and crackles in bilateral lungs. We are ordering net-negative Lasix dosing to diuresis her. (4) CKD (chronic kidney disease), stage IV Status: Chronic Discussed With: Other Discussed With: Problem Text: 05/19- Difficult to pinpoint her baseline creatinine. It could be as low as ~2 which would put her in a mild BETTY, I suspect a component of this is from her general volume overload and may correct some as her kidneys become better perfused, will continue to monitor. (5) DM2 (diabetes mellitus, type 2) Status: Chronic Problem Text: 05/19- Patient was hypoglycemic again this morning. Another Amp of D50 was given which brought her levels up. She already received her AM dose of levemir, but I have D/C'd her levemir for now until we are better able to figure out her baseline. We will continue sliding scale insulin. Order placed for HgbA1 c. 05/18Overnight patient was on her regular dosing of home insulin and had an episode of hypoglycemia this morning. We are cutting her basal insulin dosing in half and keep her on sliding scale. (6) Hyponatremia Status: Acute Problem Text: 05/19- Na of 132 today even after aggressive diuresis, will continue to monitor. 05/18patient had sodium of 129 at admission and after a night of IV fluids sodium improved to 133. Questioning whether this patient had a hypervolemic hyponatremia given her volume status. (7) Hyperlipidemia Status: Chronic Problem Text: Continue with home medications (8) HTN (hypertension) Status: Chronic Problem Text: 05/19- Blood pressures have been okay so far this admission. 05/18-Patient okay to continue with home medications. (9) UTI (urinary tract infection) Status: Resolved Problem Text: 05/19- Culture negative, Zosyn discontinued by ID. 05/18UA positive, cultures pending, treating with Zosyn. Plan/VTE VTE Prophylaxis Ordered?: Yes VS, I&O, 24H, Fishbone Vital Signs/I&O Vital Signs Date Time Temp Pulse Resp B/P (MAP) Pulse Ox O2 Delivery O2 Flow Rate FiO2 05/19/18 08:58 146/71 05/19/18 08:00 2.0 05/19/18 08:00 99.3 94 20 95 05/19/18 06:00 97 05/18/18 12:38 Room Air I&O- Last 24 Hours up to 6 AM 05/19/18 06:00 Intake Total 2330 ml Output Total 1500 ml Balance 830 ml Laboratory Data 24H LABS Laboratory Tests 2 05/18/18 12:54: Bedside Glucose (Misc Panel) 62L 05/18/18 17:38: Bedside Glucose (Misc Panel) 35*L 05/18/18 21:54: Bedside Glucose (Misc Panel) 83 05/18/18 21:55: Total Creatine Kinase 420H, Creatine Kinase MB 6.0H, Creatine Kinase MB Relative Index 1.45, Troponin I < 0.02 05/19/18 04:49: Bedside Glucose (Misc Panel) 37*L 05/19/18 05:18: Nucleated Red Blood Cells % (auto) 0.0, Bedside Glucose Confirm (Misc) 102, Anion Gap 10, Glomerular Filtration Rate 16.5L, Blood Urea Nitrogen 59H, Creatinine 3.02H, Sodium Level 132L, Potassium Level 3.5, Chloride Level 97L, Carbon Dioxide Level 25, Calcium Level 7.6L, C-Reactive Protein, Quantitative 30.80H 05/19/18 05:21: Bedside Glucose (Misc Panel) 96 05/19/18 06:23: Blood Gas Bicarbonate Standard 24.5, Arterial Blood pH 7.382, Arterial Blood Partial Pressure CO2 43.3, Arterial Blood Partial Pressure O2 103.2H, Arterial Blood Total CO2 26.5, Arterial Blood HCO3 25.2, Arterial Blood Base Excess 0.0, Arterial Blood Oxygen Saturation 98.0 05/19/18 08:04: Bedside Glucose (Misc Panel) 78L 05/19/18 08:46: Bedside Glucose (Misc Panel) 149H 05/19/18 10:21: Bedside Glucose (Misc Panel) 125H CBC/BMP Laboratory Tests 05/19/18 05:18 Red Blood Count 2.70 L, Mean Corpuscular Volume 93.7, Mean Corpuscular Hemoglobin 30.0, Mean Corpuscular Hemoglobin Concent 32.0, Red Cell Distribution Width 14.0, Calcium Level 7.6 L Microbiology Microbiology 05/19/18 Blood Culture, Received Pending 05/18/18 Blood Culture - Preliminary, Resulted No growth after 24 hours . All specim... 05/17/18 Blood Culture - Final, Complete Staphylococcus Aureus 05/17/18 Urine Culture - Final, Complete 05/17/18 Wound Culture - Final, Complete Staphylococcus Aureus GME ATTESTATION GME ATTESTATION My faculty preceptor for this patient encounter was physically present during the encounter and was fully available. All aspects of the patient interview, examination, medical decision making process, and medical care plan development were reviewed and approved by the faculty preceptor. The faculty preceptor is aware and concurs with the plan as stated in the body of this note and will attest to such by his/her cosignature. JESSICA YE DO May 19, 2018 11:39
[2018-05-19] MEDS ORDERED: SLF 3 ML SYR IV PRN (12:45)
[2018-05-19 13:08] LABS: HEMOGLOBIN A1c 6.9 %
[2018-05-19] MEDS: ceFAZolin SOD 1 GM in D5W MINI-BAG PLUS 50 ML IV SCH (13:24)
[2018-05-19] MEDS: SLF 3 ML SYR IV SCH ×2 (13:25→21:08)
[2018-05-19] MEDS: HumaLOG INSULIN (NovoLOG) PER UNIT SC SCH (21:00)
[2018-05-19] MEDS: ATORVASTATIN 20 MG TAB PO SCH (21:06)
[2018-05-19] MEDS: ASPIRIN 81 MG ENTERIC TAB PO SCH (21:06)
[2018-05-19] MEDS: traMADol 50 MG TAB PO PRN (21:17)
--- NOTE | 2018-05-19 21:25 | ECGEPIP ---
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
[2018-05-20] VITALS: BP 156/77
[2018-05-20] MEDS: ceFAZolin SOD 1 GM in D5W MINI-BAG PLUS 50 ML IV SCH ×2 (00:12→12:30)
[2018-05-20 04:00] VITALS: BP 162/69
[2018-05-20] MEDS: SLF 3 ML SYR IV SCH ×3 (06:00→21:45)
[2018-05-20 06:07] LABS: HEMATOCRIT 23.9 % (36.0-47.0); HEMOGLOBIN 7.7 g/dl (12.0-15.5); MEAN CORPUSCULAR HEMOGLOBIN 29.6 pg (27.0-33.0); MEAN CORPUSCULAR HGB CONC 32.2 g/dl (32.0-36.5); MEAN CORPUSCULAR VOLUME 91.9 fl (80.0-96.0); PLATELET COUNT, AUTOMATED 209 10^3/uL (150-450)
[2018-05-20] MEDS: HEPARIN SOD (PORCINE) 5000 UNITS/ML VIAL SC SCH ×3 (06:14→21:44)
[2018-05-20] MEDS: FUROSEMIDE 100 MG/10 ML VIAL (J1940) IV SCH ×3 (06:15→12:00)
--- NOTE | 2018-05-20 06:19 | ECHO ---
DATE OF PROCEDURE: 05/19/2018 REFERRING PROVIDER: Dr. Juan Miguel Quarles. WATERWORKS EMPLOYEE: Dr. Zulema Mckeon. PATIENT LOCATION: Room 3220 REASON FOR THE ECHOCARDIOGRAM: Heart failure. 2D MEASUREMENT: IVS - 1.6 cm LV - 4.4 cm LVPW - 1.3 cm LA - 4.1 cm Aorta - 3.3 cm IVC - 1.8 cm DOPPLER MEASUREMENT: Peak velocity across the aortic valve - 1.4 m/s Peak velocity across the LVOT - 1.0 m/s Mitral E - 1.3, Mitral A - 1.3 with a ratio of 1.0. Maximum tricuspid valve velocity 2.2 m/s 2D COMMENTS: 1. Normal left ventricular size, wall thickness, and normal global left ventricular systolic function. The estimated left ventricular systolic ejection fraction is 65-70%. 2. Mildly dilated left atrium. Normal right atrium and right ventricle but were not well visualized. 3. The atrial septum appeared to be normal without evidence of defect or shunt. 4. Normal aortic root. 5. Trace pericardial effusion noted. No evidence of cardiac tamponade. 6. Mildly calcified aortic valve with normal leaflet excursion. Mildly calcified mitral annulus with normal anterior mitral valve leaflet motion. Normal tricuspid valve and pulmonic valve. The proximal pulmonary artery branches were not well visualized. 7. The inferior vena cava was normal in size. Central venous pressure is most likely normal. 8. Doppler detects trace mitral regurgitation, trace tricuspid regurgitation. The calculated pulmonary artery systolic pressure was normal. Abnormal relaxation pattern was noted across the mitral valve leaflet as well as the mitral valve annulus consistent with features of grade 1 and left ventricular diastolic dysfunction. IMPRESSION: 1. Normal global left ventricular systolic pressure with mild concentric left ventricular hypertrophy. There are features of left ventricular diastolic dysfunction manifested by abnormal relaxation. 2. Aortic valve sclerosis without stenosis or aortic regurgitation. 3. Mitral annulus calcification with trace mitral regurgitation and mildly dilated left atrium. 4. Trace tricuspid regurgitation with a normal calculated pulmonary artery systolic pressure. 5. Trace pericardial effusion noted posteriorly, no evidence of cardiac tamponade. MTDD
[2018-05-20 06:39] LABS: C REACTIVE PROTEIN QUANTITATIV 31.2 MG/DL (0.00-0.30); CALCIUM LEVEL 8.7 MG/DL (8.8-10.2); CREATININE FOR GFR 2.97 MG/DL (0.55-1.30); GLOMERULAR FILTRATION RATE 16.9 (>45); POTASSIUM SERUM 3.7 MEQ/L (3.5-5.1)
[2018-05-20 08:00] VITALS: BP 160/58
[2018-05-20] MEDS: MAGNESIUM OXIDE 400 MG TAB (MAG-OX) PO SCH (09:21)
[2018-05-20] MEDS: SPIRONOLACTONE 25 MG TAB PO SCH (09:22)
[2018-05-20] MEDS: CALCITRIOL 0.25 MCG CAP (S0169) PO SCH (09:22)
[2018-05-20] MEDS: FERROUS SULFATE 325MG TAB PO SCH ×2 (09:22→21:44)
[2018-05-20] MEDS: PARoxetine 20 MG TAB PO SCH (09:22)
[2018-05-20] MEDS: ISOSORBIDE MON. (IMDUR) 30 MG XR TAB PO SCH (09:23)
[2018-05-20] MEDS: GABAPENTIN 300 MG CAP PO SCH ×2 (09:23→21:45)
[2018-05-20] MEDS: CARVedilol 12.5 MG TAB PO SCH ×2 (09:23→21:44)
[2018-05-20] MEDS: SILVER SULFADIAZINE 1% CR 50 GM JAR TOP SCH ×3 (09:31→23:39)
--- NOTE | 2018-05-20 09:53 | IPNPDOC ---
Subjective Date Seen The patient was seen on 05/20/18. Subjective Chief Complaint/HPI No acute events overnight. Patient appears much more alert this morning and appears more interested in food. She reports she still has a decreased appetite and generally doesn't feel well. She denies any complaints of pain or difficulty breathing. Objective Physical Examination General Exam: Positive: Alert, Cooperative, No Acute Distress (Sick appearing) Eye Exam: Positive: EOMI; Negative: Sclera icteric ENT Exam: Positive: Atraumatic, Mucous membr. moist/pink, Pharynx Normal Chest Exam: Positive: Clear to auscultation, Rales (bilateral lower lobe crackles), Diminished (2/2 to body habitus); Negative: Wheezing Heart Exam: Positive: Rate Normal, Normal S1, Normal S2; Negative: Gallops, Murmurs, Rubs Abdomen Exam: Positive: Normal bowel sounds, Soft (obese abdomen); Negative: Tenderness Extremity Exam: Positive: Edema (1+ pitting edema in bilateral lower extremities), Normal pulses, Other (Left lateral foot shows a circular 5 cm foot wound with serosanguinous drainage); Negative: Cyanosis Skin Exam: Positive: Nl turgor and temperature Neuro Exam: Positive: Normal Speech Psych Exam: Positive: Mental status NL, Mood NL Assessment /Plan Problems (1) Diabetic foot infection Status: Acute Problem Text: 05/20- Dr. Calixto had already been to see her this AM and just did a dressing change with no further wound debridement. Will continue to follow his recommendations. 05/19- Dr. Calixto saw patient yesterday and debrided some of her wound at bedside. MRI was negative for osteomyelitis. Wound management per podiatry recommendations, which are appreciated. 05/18-Dr. Calixto has been consulted and will see the patient today. He has requested an MRI without contrast be ordered to look for suspected osteomyelitis. Given that her blood culture was positive we will be consulting infectious disease and placing her on vancomycin as well as Zosyn which should cover both the UTI and her foot wound. We have stopped her fluids as she has 2+ pitting edema with crackles in her lungs. (2) MSSA (methicillin susceptible Staphylococcus aureus) infection Status: Acute Problem Text: 05/20- Patient on day 3 of antibiotics, started cefazolin yesterday. Recommendations about switch to PO medications and duration of t reatment are per Dr. Rodríguez. We will continue the IV meds until she weighs in otherwise. Repeat blood cultures are negative. 05/19- ID consulted yesterday after blood and wound culture came back positive for staph. Recommendations are appreciated. Repeat blood cultures were ordered, first repeat is negative for growth. ID recommending changing Vancomycin to Cefazolin in light of MSSA growth. (3) Anemia Status: Acute Problem Text: 05/20- Patient came in with low Hgb at about 9 which looking through her records is about baseline for her. She states she has a history of iron deficiency anemia with blood transfusions in the past on oral iron supplementation twice a day. Today her Hgb is 7.7. I ordered a stool hemoccult although given her iron supplementation this may not be accurate. I also ordered a type/screen and a repeat H/H for 1000. she reports no history of hemoptysis but says her stools are dark colored usually because of her iron tablets. She may have had dilutional anemia previously and now it is just more concentrated in her intravascular space while she moves fluid out from her periphery. Will continue to monitor her Hgb, would advise definitive transfusion if it is 7.0 or below. (4) Diastolic CHF Status: Acute Problem Text: 05/20-Patient put out 2.3 liters yesterday and I no longer appreciate rales in her lungs. We will continue with net negative dosing. Echo results are back showing left ventricular diastolic dysfunction with EF of 65- 70%, aortic valve sclerosis without stenosis or regurg, trace mitral regurg, trace tricuspid regurg, and trace pericardial effusion without evidence of tamponade. 05/19- Patient was given 120 mg IV lasix dose last night as she was not putting out much urine, she has put out 1 L so far today. We will continue her on net negative lasix dosing. 05/18patient is clearly in volume overload with 2+ pitting edema and crackles in bilateral lungs. We are ordering net-negative Lasix dosing to diuresis her. (5) CKD (chronic kidney disease), stage IV Status: Chronic Discussed With: Other Discussed With: Problem Text: 05/20- Her Creatinine is improved today, however her BUN is elevated. 05/19- Difficult to pinpoint her baseline creatinine. It could be as low as ~2 which would put her in a mild BETTY, I suspect a component of this is from her general volume overload and may correct some as her kidneys become better perfused, will continue to monitor. (6) DM2 (diabetes mellitus, type 2) Status: Chronic Problem Text: 05/19- Patient was hypoglycemic again this morning. Another Amp of D50 was given which brought her levels up. She already received her AM dose of levemir, but I have D/C'd her levemir for now until we are better able to figure out her baseline. We will continue sliding scale insulin. Order placed for HgbA1c. 05/18Overnight patient was on her regular dosing of home insulin and had an episode of hypoglycemia this morning. We are cutting her basal insulin dosing in half and keep her on sliding scale. (7) Physical deconditioning Problem Text: 05/20- PT consulted to evaluate and treat. (8) Hyponatremia Status: Acute Problem Text: 05/20- Na stable at 133 today. 05/19- Na of 132 today even after aggressive diuresis, will continue to monitor. 05/18patient had sodium of 129 at admission and after a night of IV fluids sodium improved to 133. Questioning whether this patient had a hypervolemic hyponatremia given her volume status. (9) Hyperlipidemia Status: Chronic Problem Text: Continue with home medications (10) HTN (hypertension) Status: Chronic Problem Text: 05/19- Blood pressures have been okay so far this admission. 05/18-Patient okay to continue with home medications. (11) UTI (urinary tract infection) Status: Resolved Problem Text: 05/19- Culture negative, Zosyn discontinued by ID. 05/18UA positive, cultures pending, treating with Zosyn. Plan/VTE VTE Prophylaxis Ordered?: Yes VS, I&O, 24H, Fishbone Vital Signs/I&O Vital Signs Date Time Temp Pulse Resp B/P (MAP) Pulse Ox O2 Delivery O2 Flow Rate FiO2 05/20/18 09:23 95 160/58 05/20/18 08:00 96.8 17 95 2.0 05/19/18 06:00 97 05/18/18 12:38 Room Air I&O- Last 24 Hours up to 6 AM 05/20/18 06:00 Intake Total 1600 ml Output Total 1800 ml Balance -200 ml Laboratory Data 24H LABS Laboratory Tests 2 05/19/18 10:21: Bedside Glucose (Misc Panel) 125H 05/19/18 11:43: Estimated Mean Plasma Glucose 151H, Hemoglobin A1c 6.9 05/19/18 11:54: Bedside Glucose (Misc Panel) 103 05/19/18 17:06: Bedside Glucose (Misc Panel) 72L 05/19/18 19:00: Bedside Glucose (Misc Panel) 140H 05/19/18 20:50: Bedside Glucose (Misc Panel) 164H 05/20/18 00:08: Bedside Glucose (Misc Panel) 168H 05/20/18 05:17: Nucleated Red Blood Cells % (auto) 0.0, Anion Gap 12, Glomerular Filtration Rate 16.9L, Blood Urea Nitrogen 63H, Creatinine 2.97H, Sodium Level 133L, Potassium Level 3.7, Chloride Level 95L, Carbon Dioxide Level 26, Calcium Level 8.7L, C- Reactive Protein, Quantitative 31.20H CBC/BMP Laboratory Tests 05/20/18 05:17 Red Blood Count 2.60 L, Mean Corpuscular Volume 91.9, Mean Corpuscular Hemoglobin 29.6, Mean Corpuscular Hemoglobin Concent 32.2, Red Cell Distribution Width 14.0, Calcium Level 8.7 L Microbiology Microbiology 05/19/18 Blood Culture - Preliminary, Resulted No growth after 24 hours . All specim... 05/18/18 Blood Culture - Preliminary, Resulted No Growth after 48 hours. All Specime... 05/17/18 Blood Culture - Final, Complete Staphylococcus Aureus 05/17/18 Urine Culture - Final, Complete 05/17/18 Wound Culture - Final, Complete Staphylococcus Aureus GME ATTESTATION GME ATTESTATION My faculty preceptor for this patient encounter was physically present during the encounter and was fully available. All aspects of the patient interview, examination, medical decision making process, and medical care plan development were reviewed and approved by the faculty preceptor. The faculty preceptor is aware and concurs with the plan as stated in the body of this note and will attest to such by his/her cosignature. JESSICA YE DO May 20, 2018 09:53
[2018-05-20 12:00] VITALS: BP 144/67
[2018-05-20 12:11] LABS: HEMATOCRIT 24.6 % (36.0-47.0); HEMOGLOBIN 7.8 g/dl (12.0-15.5)
[2018-05-20] MEDS: HumaLOG INSULIN (NovoLOG) PER UNIT SC SCH ×3 (12:28→21:00)
[2018-05-20] MEDS ORDERED: FUROSEMIDE 40 MG/4 ML VIAL (J1940) IV ONE (13:15)
[2018-05-20 16:00] VITALS: BP 153/65
[2018-05-20] MEDS ORDERED: EUCERIN 120GM CREAM TOP ONE (17:00)
[2018-05-20] MEDS: FUROSEMIDE 40 MG/4 ML VIAL (J1940) IV SCH (18:00)
[2018-05-20 20:00] VITALS: BP 139/65
[2018-05-20] MEDS: ASPIRIN 81 MG ENTERIC TAB PO SCH (21:44)
[2018-05-20] MEDS: ATORVASTATIN 20 MG TAB PO SCH (21:45)
--- NOTE | 2018-05-20 23:33 | IPN ---
DATE: 05/20/2018 SUBJECTIVE: The patient was seen and examined this afternoon, sitting up in her bed on the PCU floor. She states since we last seen her, she has improved. She noticed that she is not as short of breath or wheezing. She has been appropriately diuresed with 80 mg of furosemide and now it is down titrated to 40 mg of furosemide. Her white count is still stable at 18.0. She has been afebrile since the , morning. Since we last seen her, she has had her wound debrided by Dr. Calixto. Magnetic Resonance Imaging (MRI) was negative for osteomyelitis. She has been on cefazolin 1 gram every 12 hours, which is renally dosed for her foot. Her C-reactive protein (CRP) continues to be elevated at 31.20, but clinically she is improving. She has shortness of breath, trouble breathing. Chest pain has improved. No nausea, vomiting or diarrhea. LABORATORIES: Hematology: White blood count (WBC) 18.0, hemoglobin 7.7, hematocrit 23.9, platelets 209. Chemistry: Sodium 133, potassium 3.7, chloride 95, carbon dioxide 26, BUN 63, creatinine 2.97, fasting glucose 106, calcium 8.7, C-reactive protein (CRP) 31.20. MICROBIOLOGY: Repeat blood cultures times two negative for growth 48 and 24 hours respectively. Stool occult negative for blood. No new imaging. PHYSICAL EXAMINATION: Temperature 97.6, pulse 83, respiratory rate 17, blood pressure 153/65 (94) pulse oximetry 95% on liters of oxygen. HEENT: Normocephalic, atraumatic. Pale face. Clear conjunctivae. HEART: Normal S1, S2 sounds. No audible murmurs appreciated. LUNGS: Clear to auscultation bilaterally. Very minimal crackles in the lower bases. ABDOMEN: Soft, nontender, morbidly obese. EXTREMITIES: 1+ pitting edema bilateral, left worse than right, mid calf. Right foot has an absent 2, 3rd and 5th toe. Left foot has an absent 3, 4 and 5th toe. Amputation site of these toes are very well healed and clear. On the lateral foot, there is a very large ulcerative blister 2 cm wide, 1 cm deep. Some purulent discharge, but has improved since last exam. There is some surrounding cellulitis with some increased erythema, slight increased warmth. No tenderness in site though. NEUROLOGIC EXAM: Alert and oriented times three. IMPRESSION: This is a 67-year-old female with an insulin diabetes, diabetic neuropathy, who was admitted for sepsis from cellulitis of the left lower extremity secondary to Staphylococcus aureus bacteremia. She received 4 liters of IV fluids since admission. She developed congestive heart failure. She has been diuresed appropriately and her shortness of breath has improved. PLAN: 1. Blood cultures are final, Staphylococcus aureus times two. 2. Methicillin-Susceptible Staphylococcus aureus (MSSA). Vancomycin has been stopped and cefazolin 1 gram IV every 12 hours has been started, which has been renally dosed for her kidney injury with a BUN of 63 and creatinine of 2.97. We will continue with the IV antibiotics as prescribed. Her white count though has been elevated at 18.0 and her C-reactive protein (CRP) is still elevated at 31.20. Will continue the trend of the white blood count (WBC) and the C-reactive protein (CRP). I am highly surprised that the patient did not have an underlying abscess or osteomyelitis in the imaging even though the Magnetic Resonance Imaging (MRI) was done without contrast. Will continue to trend the levels. If they do not improve, can consider repeat imaging or if podiatry wants to do another wound debridement. Will continue to follow the patient clinically while she is admitted. My faculty preceptor for this patient encounter was physically present during the encounter and was fully available. All aspects of the patient interview, examination, medical decision making process, and medical care plan development were reviewed and approved by the faculty preceptor. The faculty preceptor is aware and concurs with the plan as stated in the body of this note and will attest to such by his/her cosignature.
[2018-05-21] VITALS (9 sets, daily range): BP systolic 115–157; BP diastolic 58–70
[2018-05-21] MEDS: FUROSEMIDE 40 MG/4 ML VIAL (J1940) IV SCH ×4 (00:14→21:34)
[2018-05-21] MEDS: ACETAMINOPHEN TAB 650MG DOSE (2X325MG) PO PRN ×2 (00:14→22:37)
[2018-05-21] MEDS: ceFAZolin SOD 1 GM in D5W MINI-BAG PLUS 50 ML IV SCH (00:15)
[2018-05-21] MEDS ORDERED: IPRATROPIUM 0.5MG/ALBUTEROL 2.5MG INH SOL UD 3ML (DUONEB)(J7620) NEB PRN (00:45)
[2018-05-21] MEDS: HEPARIN SOD (PORCINE) 5000 UNITS/ML VIAL SC SCH ×2 (06:00→14:00)
[2018-05-21] MEDS: SLF 3 ML SYR IV SCH ×3 (06:01→22:00)
[2018-05-21 06:13] LABS: HEMATOCRIT 25.4 % (36.0-47.0); MEAN CORPUSCULAR HEMOGLOBIN 30.2 pg (27.0-33.0); MEAN CORPUSCULAR HGB CONC 31.5 g/dl (32.0-36.5); MEAN CORPUSCULAR VOLUME 95.8 fl (80.0-96.0); PLATELET COUNT, AUTOMATED 214 10^3/uL (150-450); RED BLOOD COUNT 2.65 10^6/uL (4.00-5.40)
[2018-05-21 06:44] LABS: C REACTIVE PROTEIN QUANTITATIV 31.4 MG/DL (0.00-0.30); CREATININE FOR GFR 2.9 MG/DL (0.55-1.30); GLOMERULAR FILTRATION RATE 17.3 (>45); POTASSIUM SERUM 3.9 MEQ/L (3.5-5.1)
[2018-05-21] MEDS: GABAPENTIN 300 MG CAP PO SCH ×2 (09:00→22:26)
[2018-05-21] MEDS: FERROUS SULFATE 325MG TAB PO SCH ×2 (09:01→22:26)
[2018-05-21] MEDS: CALCITRIOL 0.25 MCG CAP (S0169) PO SCH (09:01)
[2018-05-21] MEDS: PARoxetine 20 MG TAB PO SCH (09:01)
[2018-05-21] MEDS: ISOSORBIDE MON. (IMDUR) 30 MG XR TAB PO SCH (09:01)
[2018-05-21] MEDS: CARVedilol 12.5 MG TAB PO SCH ×2 (09:02→22:27)
[2018-05-21] MEDS: SPIRONOLACTONE 25 MG TAB PO SCH (09:02)
[2018-05-21] MEDS: MAGNESIUM OXIDE 400 MG TAB (MAG-OX) PO SCH (09:02)
[2018-05-21] MEDS: SILVER SULFADIAZINE 1% CR 50 GM JAR TOP SCH ×2 (09:04→16:00)
[2018-05-21] MEDS: HumaLOG INSULIN (NovoLOG) PER UNIT SC SCH ×4 (09:04→21:27)
[2018-05-21] MEDS: traMADol 50 MG TAB PO PRN (10:33)
--- NOTE | 2018-05-21 10:42 | IPNPDOC ---
Subjective Date Seen The patient was seen on 05/21/18. Subjective Chief Complaint/HPI Patient is doing well this morning and is seen eating food upright in bed. She states she is feeling better and feels less crappy, she thinks her fever broke overnight. She denies any difficulty breathing, chest pain, or pain in her lower extremities. Objective Physical Examination General Exam: Positive: Alert, Cooperative, No Acute Distress Eye Exam: Positive: EOMI; Negative: Sclera icteric ENT Exam: Positive: Atraumatic, Mucous membr. moist/pink, Pharynx Normal Chest Exam: Positive: Clear to auscultation, Rales (bilateral lower lobe crackles), Diminished (2/2 to body habitus); Negative: Wheezing Heart Exam: Positive: Rate Normal, Normal S1, Normal S2; Negative: Gallops, Murmurs, Rubs Abdomen Exam: Positive: Normal bowel sounds, Soft (obese abdomen); Negative: Tenderness Extremity Exam: Positive: Edema (1+ pitting edema in bilateral lower extrem ities), Normal pulses, Other (Left lateral foot shows a circular 3cm foot wound with purulent drainage); Negative: Cyanosis Skin Exam: Positive: Nl turgor and temperature Neuro Exam: Positive: Normal Speech Psych Exam: Positive: Mental status NL, Mood NL Assessment /Plan Problems (1) Diabetic foot infection Status: Acute Problem Text: 05/21- Patients WBC count and CRP is still elevated however clinically the patient does appear to be improving and has looked much less sick than she did on presentation. I am tempted to follow this rather than follow her WBC count and CRP as indicators. There is a question as to whether repeat imaging is indicated to look for possible abscess formation or whether additional wound debridement may be indicated. Will speak with podiatry and ID about this as well. ADDENDUM: Received call from staff regarding change in patients pain status, she is reporting more LLE foot pain and feels like she is getting sicker. I gave her a one time dose of morphine for her foot pain. After discussion with Dr. Rodríguez we will be changing from cefazolin to zosyn to cover for gram negative infections that would have been missed on initial wound culturing. We looked at the wound together and their is purulent drainage with suspected necrotic tissue. We also spoke with Dr. Calixto who is comfortable taking her to the OR again tonight for I/D and a washout. Their was concern voiced previously that she may have a hematoma or other source of infection outside her foot contributing to the infection. Her hips are stable, she is able to bear weight on them without pain so we think it is unlikely she has an undiagnosed hematoma else where. For now we will change the antibiotic and take the patient to surgery. Patient is NPO since 0900. 05/20- Dr. Calixto had already been to see her this AM and just did a dressing change with no further wound debridement. Will continue to follow his recommendations. 05/19- Dr. Calixto saw patient yesterday and debrided some of her wound at bedside. MRI was negative for osteomyelitis. Wound management per podiatry recommendations, which are appreciated. 05/18-Dr. Calixto has been consulted and will see the patient today. He has requested an MRI without contrast be ordered to look for suspected osteomyelitis. Given that her blood culture was positive we will be consulting infectious disease and placing her on vancomycin as well as Zosyn which should cover both the UTI and her foot wound. We have stopped her fluids as she has 2+ pitting edema with crackles in her lungs. (2) MSSA (methicillin susceptible Staphylococcus aureus) infection Status: Acute Problem Text: 05/21- Day 4 of abx. Switching to Zosyn to cover for possible gram negative infections that were not cultured for on initial foot wound culture. 05/20- Patient on day 3 of antibiotics, started cefazolin yesterday. Recom mendations about switch to PO medications and duration of treatment are per Dr. Rodríguez. We will continue the IV meds until she weighs in otherwise. Repeat blood cultures are negative. 05/19- ID consulted yesterday after blood and wound culture came back positive for staph. Recommendations are appreciated. Repeat blood cultures were ordered, first repeat is negative for growth. ID recommending changing Vancomycin to Cefazolin in light of MSSA growth. (3) Anemia Status: Acute Problem Text: 05/21- Hgb at 8 today and improved from yesterday. Stool hemoccult was negative. 05/20- Patient came in with low Hgb at about 9 which looking through her records is about baseline for her. She states she has a history of iron deficiency ane audra with blood transfusions in the past on oral iron supplementation twice a day. Today her Hgb is 7.7. I ordered a stool hemoccult although given her iron supplementation this may not be accurate. I also ordered a type/screen and a repeat H/H for 1000. she reports no history of hemoptysis but says her stools are dark colored usually because of her iron tablets. She may have had dilutional anemia previously and now it is just more concentrated in her intravascular space while she moves fluid out from her periphery. Will continue to monitor her Hgb, would advise definitive transfusion if it is 7.0 or below. (4) Diastolic CHF Status: Acute Problem Text: 05/21- -1.4 liters today, I think we will continue net negative lasix as her creatinine is improving and her legs are less edematous. 05/20-Patient put out 2.3 liters yesterday and I no longer appreciate rales in her lungs. We will continue with net negative dosing. Echo results are back showing left ventricular diastolic dysfunction with EF of 65-70%, aortic valve sclerosis without stenosis or regurg, trace mitral regurg, trace tricuspid regurg, and trace pericardial effusion without evidence of tamponade. 05/19- Patient was given 120 mg IV lasix dose last night as she was not putting out much urine, she has put out 1 L so far today. We will continue her on net negative lasix dosing. 05/18patient is clearly in volume overload with 2+ pitting edema and crackles in bilateral lungs. We are ordering net-negative Lasix dosing to diuresis her. (5) CKD (chronic kidney disease), stage IV Status: Chronic Discussed With: Other Discussed With: Problem Text: 05/21- Creatinine is trending down still, BUN is still trending up. 05/20- Her Creatinine is improved today, however her BUN is elevated. 05/19- Difficult to pinpoint her baseline creatinine. It could be as low as ~2 which would put her in a mild BETTY, I suspect a component of this is from her general volume overload and may correct some as her kidneys become better perfused, will continue to monitor. (6) DM2 (diabetes mellitus, type 2) Status: Chronic Problem Text: 05/20- Will continue with sliding scale insulin and we will see what her insulin requirements have been over the last 2 days. She has not been requiring any night time insulin and only needed 6 units before meals. Will continue to monitor, but she may not require any basal insulin. 05/19- Patient was hypoglycemic again this morning. Another Amp of D50 was given which brought her levels up. She already received her AM dose of levemir, but I have D/C'd her levemir for now until we are better able to figure out her baseline. We will continue sliding scale insulin. Order placed for HgbA1c. 05/18Overnight patient was on her regular dosing of home insulin and had an epis ode of hypoglycemia this morning. We are cutting her basal insulin dosing in half and keep her on sliding scale. (7) Physical deconditioning Problem Text: 05/20- PT consulted to evaluate and treat. (8) Hyponatremia Status: Acute Problem Text: 05/20- Na stable at 133 today. 05/19- Na of 132 today even after aggressive diuresis, will continue to monitor. 05/18patient had sodium of 129 at admission and after a night of IV fluids sodium improved to 133. Questioning whether this patient had a hypervolemic hyponatremia given her volume status. (9) Hyperlipidemia Status: Chronic Problem Text: Continue with home medications (10) HTN (hypertension) Status: Chronic Problem Text: 05/19- Blood pressures have been okay so far this admission. 05/18-Patient okay to continue with home medications. (11) UTI (urinary tract infection) Status: Resolved Problem Text: 05/19- Culture negative, Zosyn discontinued by ID. 05/18UA positive, cultures pending, treating with Zosyn. Plan/VTE VTE Prophylaxis Ordered?: Yes VS, I&O, 24H, Fishbone Vital Signs/I&O Vital Signs Date Time Temp Pulse Resp B/P (MAP) Pulse Ox O2 Delivery O2 Flow Rate FiO2 05/21/18 09:02 82 142/70 05/21/18 08:00 98.5 16 98 2.0 05/19/18 06:00 97 05/18/18 12:38 Room Air I&O- Last 24 Hours up to 6 AM 05/21/18 06:00 Intake Total 710 ml Output Total 2155 ml Balance -1445 ml Laboratory Data 24H LABS Laboratory Tests 2 05/20/18 11:42: Bedside Glucose (Misc Panel) 132H 05/20/18 17:23: Bedside Glucose (Misc Panel) 208H 05/20/18 20:32: Bedside Glucose (Misc Panel) 237H 05/21/18 05:31: Nucleated Red Blood Cells % (auto) 0.0, Anion Gap 11, Glomerular Filtration Rate 17.3L, Blood Urea Nitrogen 72H, Creatinine 2.90H, Sodium Level 132L, Potassium Level 3.9, Chloride Level 94L, Carbon Dioxide Level 27, Calcium Level 9.0, C-Reactive Protein, Quantitative 31.40H CBC/BMP Laboratory Tests 05/20/18 11:50 05/21/18 05:31 Red Blood Count 2.65 L, Mean Corpuscular Volume 95.8, Mean Corpuscular Hemoglobin 30.2, Mean Corpuscular Hemoglobin Concent 31.5 L, Red Cell Distribution Width 14.0, Calcium Level 9.0 Microbiology Microbiology 05/19/18 Blood Culture - Preliminary, Resulted No Growth after 48 hours. All Specime... 05/18/18 Blood Culture - Preliminary, Resulted No Growth after 72 hours. All specime... 05/17/18 Blood Culture - Final, Complete Staphylococcus Aureus 05/20/18 Stool Occult Blood ([facility]) - Final, Complete 05/17/18 Urine Culture - Final, Complete 05/17/18 Wound Culture - Final, Complete Staphylococcus Aureus GME ATTESTATION GME ATTESTATION My faculty preceptor for this patient encounter was physically present during the encounter and was fully available. All aspects of the patient interview, examination, medical decision making process, and medical care plan development were reviewed and approved by the faculty preceptor. The faculty preceptor is aware and concurs with the plan as stated in the body of this note and will attest to such by his/her cosignature. JESSICA YE DO May 21, 2018 10:42
[2018-05-21] MEDS: diphenhydrAMINE 50 MG CAP PO STA ×2 (11:22→11:39)
[2018-05-21] MEDS ORDERED: MORPHINE 4 MG/ML 1ML VIAL/SYRINGE (J2270) IV ONE (11:30)
[2018-05-21] MEDS: PIPERACILLIN/TAZOBACTAM SOD 2.25 GM in D5W MINI-BAG PLUS 50 ML IV SCH ×2 (12:31→21:43)
--- NOTE | 2018-05-21 14:38 | IPN ---
DATE: 05/21/2018 TIME: Approximately 2:00 p.m. CHIEF COMPLAINT: The patient was seen at bedside for evaluation of her left foot. The patient states that she is starting to experience pain in her left foot and this was not present yesterday morning when she was seen for followup. She states that the pain also extends on the lateral surface of the foot towards the ankle. She denies shortness of breath or chest pain. The bandage was removed today. There is some purulent discharge from the lateral distal aspect of the foot with some purulent drainage, consistent with acute abscess formation. The wound does not appear to extend in a proximal direction. Laboratory studies were reviewed revealing a white count on admission of 18.8 and it is 18.0 today, C-reactive protein has been trending in an upward direction; on admission 30.8 and now it is 31.4. ASSESSMENT: 1. Abscess formation on the distal lateral aspect of the left foot with stage IV ulceration. PLAN: Informed consent was obtained and signed by the patient. The patient had breakfast finished at 9:00 a.m. She is scheduled for incision and drainage of her abscess with irrigation of the wound and packing, possible subsequent delayed primary closure if the wound improves. Her questions were answered. The patient was notified that I am leaving town for a week and Dr. Niko Rodríguez is covering my practice for infections. The patient understands this.
[2018-05-21] MEDS ORDERED: PROPOFOL 200 MG/20 ML VIAL As Ordered ONE (15:52)
[2018-05-21] MEDS ORDERED: dexameTHASONE 4 MG/ML 1ML VIAL (J1100) As Ordered ONE (15:52)
[2018-05-21] MEDS ORDERED: LIDOCAINE 2% INJ 100 MG/5 ML SDV (FOR ANES.) As Ordered ONE (15:52)
[2018-05-21] MEDS ORDERED: ONDANSETRON 4MG/2ML VIAL (J2405) As Ordered ONE (15:52)
[2018-05-21] MEDS ORDERED: fentaNYL 100 MCG/2 ML INJECTION (J3010) As Ordered ONE (15:52)
[2018-05-21] MEDS ORDERED: MIDAZOLAM INJ 2 MG/2 ML VIAL (J2250) As Ordered ONE (15:52)
--- NOTE | 2018-05-21 16:35 | IPN ---
DATE: 05/21/2018 Ms. Narayan is complaining of increasing pain in her left foot, especially towards the ankle. She has good range of motion of the ankle joint. She had a low grade fever last night of 100.1. No chest pain or shortness of breath. She does have some hip pain but she moves both knees and hips pretty well. She is able to ambulate. On physical exam, temperature is 100.1, pulse 87, respirations 18, blood pressure 130/58, oxygen saturation 93% on two liters nasal cannula. Heart: Normal S1, S2. No murmurs. Lungs: Diminished at the bases but clear. No wheezes or crackles. Abdomen: Morbidly obese, soft, nontender. Extremities: +1 pitting edema. Left foot has an open ulcer measuring at least 4 x 3 cm. There is purulent discharge. There is surrounding cellulitis that extends all the way to the heel. Heel has normal range of motion. LABORATORY DATA: White count 18 which has not changed in the past 5 days, hemoglobin 8, hematocrit 25.4, platelets 214. Sodium 132, potassium 3.9, chloride 94, bicarbonate 27, BUN 72, creatinine 2.9, glucose 206, calcium 9, CRP 31.4 which also has not improved. IMPRESSION: 1. Left foot abscess without improvement in inflammatory markers and white count with persistent fever. I am concerned that there is an underlying abscess that needs debridement causing the persistent elevated white count and fever. Also there might be anaerobes that would not be covered by cefazolin and therefore the patient will be switched to Zosyn at 2.25 grams IV every 8 hours. 2. Congestive heart failure, doing much better. Furosemide dose has been decreased to 40 mg IV every 6 hours. PLAN: Case has been discussed with Dr. Calixto who has agreed to take the patient to the operating room for debridement tonight at 5 p.m.. Case has been discussed with Dr. Esposito who agrees with the plan and to discontinue cefazolin and switch to Zosyn 2.25 grams IV every 8 hours.
[2018-05-21] MEDS ORDERED: LIDOCAINE 2% MDV 20 ML VIAL As Ordered ONE (17:05)
[2018-05-21] MEDS ORDERED: BUPIVACAINE HCL 0.25% 10 ML VIAL As Ordered ONE (17:05)
[2018-05-21] MEDS ORDERED: BUPIVACAINE HCL 0.5% 10 ML VIAL As Ordered ONE (17:10)
[2018-05-21] MEDS ORDERED: BACITRACIN PWD 50,000 UNITS VIAL As Ordered ONE (17:12)
[2018-05-21] MEDS ORDERED: VANCOMYCIN HCL 500 MG/10 ML VIAL (J3370) As Ordered ONE ×2 (17:16→18:24)
[2018-05-21] MEDS ORDERED: HumaLOG INSULIN (NovoLOG) PER UNIT SC ONE (17:17)
[2018-05-21] MEDS ORDERED: HumaLOG INSULIN (NovoLOG) PER UNIT As Ordered ONE (17:19)
[2018-05-21] MEDS ORDERED: IPRATROPIUM 0.5MG/ALBUTEROL 2.5MG INH SOL UD 3ML (DUONEB)(J7620) As Ordered ONE (17:21)
[2018-05-21] MEDS ORDERED: IPRATROPIUM 0.5MG/ALBUTEROL 2.5MG INH SOL UD 3ML (DUONEB)(J7620) NEB ONE (17:22)
[2018-05-21] MEDS ORDERED: LABETALOL HCL 100 MG/20 ML VIAL As Ordered ONE (19:13)
[2018-05-21] MEDS: LABETALOL HCL 100 MG/20 ML VIAL IV PRN ×5 (19:15→19:35)
[2018-05-21] MEDS ORDERED: LR 1,000 ML IV SCH ×2 (19:30→20:00)
[2018-05-21] MEDS ORDERED: HYDROMORPHONE HCL 0.5 MG/ 0.5 ML SYRINGE (J1170 PER 1) IV PRN ×2 (19:30→20:00)
[2018-05-21] MEDS ORDERED: fentaNYL 100 MCG/2 ML INJECTION (J3010) IV PRN ×2 (19:30→20:00)
[2018-05-21] MEDS ORDERED: NORCO, ANEXSIA 5/325MG TABLET (HYDROcodone/ACETAMINOPHEN) PO PRN ×2 (19:30→20:00)
[2018-05-21] MEDS ORDERED: METOCLOPRAMIDE INJ 10MG/2ML VIAL (J2765) IV PRN ×2 (19:30→20:00)
[2018-05-21] MEDS ORDERED: hydrALAZINE INJ 20 MG/ML VIAL As Ordered ONE (19:45)
[2018-05-21] MEDS: hydrALAZINE INJ 20 MG/ML VIAL IV PRN ×3 (19:49→19:59)
[2018-05-21] MEDS ORDERED: LABETALOL HCL 100 MG/20 ML VIAL IV PRN (20:00)
[2018-05-21] MEDS: ATORVASTATIN 20 MG TAB PO SCH (22:26)
[2018-05-21] MEDS: ASPIRIN 81 MG ENTERIC TAB PO SCH (22:26)
[2018-05-22] VITALS (7 sets, daily range): BP systolic 114–140; BP diastolic 56–66
[2018-05-22] MEDS: FUROSEMIDE 40 MG/4 ML VIAL (J1940) IV SCH ×4 (01:27→17:58)
[2018-05-22] MEDS: PIPERACILLIN/TAZOBACTAM SOD 2.25 GM in D5W MINI-BAG PLUS 50 ML IV SCH ×3 (04:40→20:45)
[2018-05-22 05:38] LABS: HEMOGLOBIN 8.3 g/dl (12.0-15.5); MEAN CORPUSCULAR HEMOGLOBIN 29.7 pg (27.0-33.0); MEAN CORPUSCULAR HGB CONC 30.7 g/dl (32.0-36.5); MEAN CORPUSCULAR VOLUME 96.8 fl (80.0-96.0); PLATELET COUNT, AUTOMATED 203 10^3/uL (150-450); RED BLOOD COUNT 2.79 10^6/uL (4.00-5.40); WHITE BLOOD COUNT 17.8 10^3/uL (4.0-10.0)
[2018-05-22 05:56] LABS: C REACTIVE PROTEIN QUANTITATIV 30.5 MG/DL (0.00-0.30); CALCIUM LEVEL 8.9 MG/DL (8.8-10.2); CREATININE FOR GFR 3.07 MG/DL (0.55-1.30); GLOMERULAR FILTRATION RATE 16.2 (>45); POTASSIUM SERUM 4.6 MEQ/L (3.5-5.1)
[2018-05-22] MEDS: HEPARIN SOD (PORCINE) 5000 UNITS/ML VIAL SC SCH ×3 (06:46→21:07)
[2018-05-22] MEDS: SLF 3 ML SYR IV SCH ×3 (06:46→21:07)
[2018-05-22] MEDS: traMADol 50 MG TAB PO PRN ×2 (07:41→17:58)
[2018-05-22] MEDS: HumaLOG INSULIN (NovoLOG) PER UNIT SC SCH ×4 (09:08→20:48)
[2018-05-22] MEDS: GABAPENTIN 300 MG CAP PO SCH ×2 (09:08→20:45)
[2018-05-22] MEDS: CALCITRIOL 0.25 MCG CAP (S0169) PO SCH (09:08)
[2018-05-22] MEDS: FERROUS SULFATE 325MG TAB PO SCH ×2 (09:08→20:45)
[2018-05-22] MEDS: ISOSORBIDE MON. (IMDUR) 30 MG XR TAB PO SCH (09:08)
[2018-05-22] MEDS: SPIRONOLACTONE 25 MG TAB PO SCH (09:08)
[2018-05-22] MEDS: MAGNESIUM OXIDE 400 MG TAB (MAG-OX) PO SCH (09:08)
[2018-05-22] MEDS: PARoxetine 20 MG TAB PO SCH (09:08)
[2018-05-22] MEDS: CARVedilol 12.5 MG TAB PO SCH ×2 (09:09→20:46)
--- NOTE | 2018-05-22 12:02 | IPN ---
DATE OF VISIT: 05/22/2018 at 8:45 a.m. CHIEF COMPLAINT: Patient was seen at bedside for evaluation of an abscess directing distally and proximally up the common peroneal tendon sheath of the left foot. Patient states she does feel better. She denies shortness of breath or chest pain. The bandage was removed today and the packing was removed. There was no active purulence. There is no active bleeding at this time. The wound bed has a good granulation tissue base starting. The wound shows some reduced swelling around the foot. Laboratory studies were reviewed revealing a white count decreased from yesterday from 18 to 17.8 and today the C-reactive protein, which has been trending in an upward direction, now has decreased to 30.5. ASSESSMENT: Status post incision and drainage of complex abscess tunneling in both a distal and proximal direction, left foot. PLAN: Orders to cleanse the wound with Vashe, leave on for 15 minutes followed by a Drawtex strip the entire length of the wound, changed every 12 hours. If the wound continues to improve, we could continue with this. Patient may be switched to a wound VAC. If the wound becomes macerated around the margins, would recommend the wound VAC be applied with white foam along the wound itself followed by black foam, pressure setting 175 mmHg at high intensity, continuous pressure, changed every 3 days. I will be available by phone. Dr. Rodríguez will be covering my patients while I am out of town for a week. If any surgical procedures need to be performed, please contact Dr. Geoffrey Thornton DPM.
[2018-05-22] MEDS: ACETAMINOPHEN TAB 650MG DOSE (2X325MG) PO PRN ×2 (12:37→20:46)
--- NOTE | 2018-05-22 14:51 | IPNPDOC ---
Subjective Date Seen The patient was seen on 05/22/18. Subjective Chief Complaint/HPI No acute events overnight. Patient states she is feeling well following her I/D yesterday with Dr. Calixto. Denies lower extremity pain, dyspnea, or chest pain. Objective Physical Examination General Exam: Positive: Alert, Cooperative, No Acute Distress Eye Exam: Positive: EOMI; Negative: Sclera icteric ENT Exam: Positive: Atraumatic, Mucous membr. moist/pink, Pharynx Normal Chest Exam: Positive: Clear to auscultation, Rales (bilateral lower lobe crackles), Diminished (2/2 to body habitus); Negative: Wheezing Heart Exam: Positive: Rate Normal, Normal S1, Normal S2; Negative: Gallops, Murmurs, Rubs Abdomen Exam: Positive: Normal bowel sounds, Soft (obese abdomen); Negative: Tenderness Extremity Exam: Positive: Edema (1+ pitting edema in bilateral lower extremities), Normal pulses, Other (Left lateral foot bandaging removed at bedside shows approximately 12 cm longitudinal wound without purulent drainage extending up toward fibular tendon sheath. ); Negative: Cyanosis Skin Exam: Positive: Nl turgor and temperature Neuro Exam: Positive: Normal Speech Psych Exam: Positive: Mental status NL, Mood NL Assessment /Plan Problems (1) Diabetic foot infection Status: Acute Problem Text: 05/22- Patient is post-op day 1 from LLE wound with abscess formation extending up toward proximal ankle along the fibular tendon sheath. Spoke with Dr. Calixto who is more confident the source of her infection was from the abscess formation. Clinically she is doing and feels much better. Her WBC and CRP have also slightly decreased We will continue her on Zosyn. Wound recommendations per Dr. Calixto's note and Dr. Rodríguez's advisement. 05/21- Patients WBC count and CRP is still elevated however clinically the patient does appear to be improving and has looked much less sick than she did on presentation. I am tempted to follow this rather than follow her WBC count and CRP as indicators. There is a question as to whether repeat imaging is indicated to look for possible abscess formation or whether additional wound debridement may be indicated. Will speak with podiatry and ID about this as megan morejon. ADDENDUM: Received call from staff regarding change in patients pain status, she is reporting more LLE foot pain and feels like she is getting sicker. I gave her a one time dose of morphine for her foot pain. After discussion with Dr. Rodríguez we will be changing from cefazolin to zosyn to cover for gram negative infections that would have been missed on initial wound culturing. We looked at the wound together and their is purulent drainage with suspected necrotic tissue. We also spoke with Dr. Calixto who is comfortable taking her to the OR again tonight for I/D and a washout. Their was concern voiced previously that she may have a hematoma or other source of infection outside her foot contributing to the infection. Her hips are stable, she is able to bear weight on them without pain so we think it is unlikely she has an undiagnosed hematoma else where. For now we will change the antibiotic and take the patient to surgery. Patient is NPO since 0900. 05/20- Dr. Calixto had already been to see her this AM and just did a dressing change with no further wound debridement. Will continue to follow his recommendations. 05/19- Dr. Calixto saw patient yesterday and debrided some of her wound at bedside. MRI was negative for osteomyelitis. Wound management per podiatry recommendations, which are appreciated. 05/18-Dr. Calixto has been consulted and will see the patient today. He has requested an MRI without contrast be ordered to look for suspected osteomyelitis. Given that her blood culture was positive we will be consulting infectious disease and placing her on vancomycin as well as Zosyn which should cover both the UTI and her foot wound. We have stopped her fluids as she has 2+ pitting edema with crackles in her lungs. (2) MSSA (methicillin susceptible Staphylococcus aureus) infection Status: Acute Problem Text: 05/22- Day 5 of abx. Abscess drained/removed from foot yesterday by , will see how patient improves. Antibiotic regimen per ID recommendations which are appreciated. 05/21- Day 4 of abx. Switching to Zosyn to cover for possible gram negative infections that were not cultured for on initial foot wound culture. 05/20- Patient on day 3 of antibiotics, started cefazolin yesterday. Recommendations about switch to PO medications and duration of treatment are per Dr. Rodríguez. We will continue the IV meds until she weighs in otherwise. Repeat blood cultures are negative. 05/19- ID consulted yesterday after blood and wound culture came back positive for staph. Recommendations are appreciated. Repeat blood cultures were ordered, first repeat is negative for growth. ID recommending changing Vancomycin to Cefazolin in light of MSSA growth. (3) Anemia Status: Acute Problem Text: 05/22- Hgb remains stable at 8.3 s/p surgery. 05/21- Hgb at 8 today and improved from yesterday. Stool hemoccult was negative. 05/20- Patient came in with low Hgb at about 9 which looking through her records is about baseline for her. She states she has a history of iron deficiency anemia with blood transfusions in the past on oral iron supplementation twice a day. Today her Hgb is 7.7. I ordered a stool hemoccult although given her iron supplementation this may not be accurate. I also ordered a type/screen and a repeat H/H for 1000. she reports no history of hemoptysis but says her stools are dark colored usually because of her iron tablets. She may have had dilutional anemia previously and now it is just more concentrated in her intravascular space while she moves fluid out from her periphery. Will continue to monitor her Hgb, would advise definitive transfusion if it is 7.0 or below. (4) Diastolic CHF Status: Chronic Problem Text: 05/22- Patient still appears euvolemic. I'm guessing the bump in her creatinine is likely due to her procedure from yesterday and the resulting muscle breakdown, will continue to follow clinically for improvement. Continue with net negative lasix dosing. 05/21- -1.4 liters today, I think we will continue net negative lasix as her creatinine is improving and her legs are less edematous. 05/20-Patient put out 2.3 liters yesterday and I no longer appreciate rales in her lungs. We will continue with net negative dosing. Echo results are back showing left ventricular diastolic dysfunction with EF of 65-70%, aortic valve sclerosis without stenosis or regurg, trace mitral regurg, trace tricuspid r egurg, and trace pericardial effusion without evidence of tamponade. 05/19- Patient was given 120 mg IV lasix dose last night as she was not putting out much urine, she has put out 1 L so far today. We will continue her on net negative lasix dosing. 05/18patient is clearly in volume overload with 2+ pitting edema and crackles in bilateral lungs. We are ordering net-negative Lasix dosing to diuresis her. (5) CKD (chronic kidney disease), stage IV Status: Chronic Discussed With: Other Discussed With: Problem Text: 05/21- Creatinine is trending down still, BUN is still trending up. 05/20- Her Creatinine is improved today, however her BUN is elevated. 05/19- Difficult to pinpoint her baseline creatinine. It could be as low as ~2 which would put her in a mild BETYT, I suspect a component of this is from her general volume overload and may correct some as her kidneys become better perfused, will continue to monitor. (6) DM2 (diabetes mellitus, type 2) Status: Chronic Problem Text: 05/22- Patient is now eating more than she did previously, so far today she has required 18 units of insulin per sliding scale. Will give her 8 units of levemir this evening and see how she does tomorrow. 05/20- Will continue with sliding scale insulin and we will see what her insulin requirements have been over the last 2 days. She has not been requiring any night time insulin and only needed 6 units before meals. Will continue to monitor, but she may not require any basal insulin. 05/19- Patient was hypoglycemic again this morning. Another Amp of D50 was given which brought her levels up. She already received her AM dose of levemir, but I have D/C'd her levemir for now until we are better able to figure out her baseline. We will continue sliding scale insulin. Order placed for HgbA1c. 05/18Overnight patient was on her regular dosing of home insulin and had an episode of hypoglycemia this morning. We are cutting her basal insulin dosing in half and keep her on sliding scale. (7) Physical deconditioning Problem Text: 05/20- PT consulted to evaluate and treat. (8) Hyponatremia Status: Acute Problem Text: 05/20- Na stable at 133 today. 05/19- Na of 132 today even after aggressive diuresis, will continue to monitor. 05/18patient had sodium of 129 at admission and after a night of IV fluids sodium improved to 133. Questioning whether this patient had a hypervolemic hyponatremia given her volume status. (9) Hyperlipidemia Status: Chronic Problem Text: Continue with home medications (10) HTN (hypertension) Status: Chronic Problem Text: 05/19- Blood pressures have been okay so far this admission. 05/18-Patient okay to continue with home medications. (11) UTI (urinary tract infection) Status: Resolved Problem Text: 05/19- Culture negative, Zosyn discontinued by ID. 05/18UA positive, cultures pending, treating with Zosyn. Plan/VTE VTE Prophylaxis Ordered?: Yes VS, I&O, 24H, Fishbone Vital Signs/I&O Vital Signs Date Time Temp Pulse Resp B/P (MAP) Pulse Ox O2 Delivery O2 Flow Rate FiO2 05/22/18 12:00 1.0 05/22/18 12:00 97.1 68 20 117/58 (77) 98 05/19/18 06:00 97 05/18/18 12:38 Room Air I&O- Last 24 Hours up to 6 AM 05/22/18 06:00 Intake Total 610 ml Output Total 425 ml Balance 185 ml Laboratory Data 24H LABS Laboratory Tests 2 05/21/18 17:12: Bedside Glucose (Misc Panel) 218H 05/21/18 18:57: Bedside Glucose (Misc Panel) 194H 05/21/18 21:40: Bedside Glucose (Misc Panel) 194H 05/22/18 05:14: Nucleated Red Blood Cells % (auto) 0.0, Anion Gap 11, Glomerular Filtration Rate 16.2L, Blood Urea Nitrogen 83H, Creatinine 3.07H, Sodium Level 133L, Potassium Level 4.6, Chloride Level 96L, Carbon Dioxide Level 26, Calcium Level 8.9, C- Reactive Protein, Quantitative 30.50H 05/22/18 11:56: Bedside Glucose (Misc Panel) 320H CBC/BMP Laboratory Tests 05/22/18 05:14 Red Blood Count 2.79 L, Mean Corpuscular Volume 96.8 H, Mean Corpuscular Hemoglobin 29.7, Mean Corpuscular Hemoglobin Concent 30.7 L, Red Cell Distribution Width 13.8, Calcium Level 8.9 Microbiology Microbiology 05/19/18 Blood Culture - Preliminary, Resulted No Growth after 72 hours. All specime... 05/18/18 Blood Culture - Preliminary, Resulted No Growth after 72 hours. All specime... 05/17/18 Blood Culture - Final, Complete Staphylococcus Aureus 05/20/18 Stool Occult Blood ([facility]) - Final, Complete 05/17/18 Urine Culture - Final, Complete 05/17/18 Wound Culture - Final, Complete Staphylococcus Aureus GME ATTESTATION GME ATTESTATION My faculty preceptor for this patient encounter was physically present during the encounter and was fully available. All aspects of the patient interview, examination, medical decision making process, and medical care plan development were reviewed and approved by the faculty preceptor. The faculty preceptor is aware and concurs with the plan as stated in the body of this note and will attest to such by his/her cosignature. JESSICA YE DO May 22, 2018 14:51
[2018-05-22] MEDS: ASPIRIN 81 MG ENTERIC TAB PO SCH (20:45)
[2018-05-22] MEDS: ATORVASTATIN 20 MG TAB PO SCH (20:45)
[2018-05-22] MEDS ORDERED: LEVEMIR (INSULIN DETEMIR) 1 UNITS/0.01ML SC SCH ×2 (21:00)
[2018-05-22] MEDS: CYCLOBENZAPRINE 10 MG TAB PO PRN (21:57)
[2018-05-23] VITALS (7 sets, daily range): BP systolic 132–154; BP diastolic 60–72
[2018-05-23] MEDS: PIPERACILLIN/TAZOBACTAM SOD 2.25 GM in D5W MINI-BAG PLUS 50 ML IV SCH ×3 (04:40→20:06)
[2018-05-23] MEDS: traMADol 50 MG TAB PO PRN (04:41)
[2018-05-23 05:37] LABS: HEMATOCRIT 23.6 % (36.0-47.0); HEMOGLOBIN 7.5 g/dl (12.0-15.5); MEAN CORPUSCULAR HEMOGLOBIN 30.2 pg (27.0-33.0); MEAN CORPUSCULAR HGB CONC 31.8 g/dl (32.0-36.5); MEAN CORPUSCULAR VOLUME 95.2 fl (80.0-96.0); PLATELET COUNT, AUTOMATED 239 10^3/uL (150-450); RED BLOOD COUNT 2.48 10^6/uL (4.00-5.40)
[2018-05-23] MEDS: FUROSEMIDE 40 MG/4 ML VIAL (J1940) IV SCH ×4 (05:38→17:18)
[2018-05-23] MEDS: HEPARIN SOD (PORCINE) 5000 UNITS/ML VIAL SC SCH ×3 (05:38→22:00)
[2018-05-23] MEDS: SLF 3 ML SYR IV SCH ×3 (06:00→22:00)
[2018-05-23 06:04] LABS: CALCIUM LEVEL 8.4 MG/DL (8.8-10.2); CREATININE FOR GFR 3.58 MG/DL (0.55-1.30); GLOMERULAR FILTRATION RATE 13.6 (>45); POTASSIUM SERUM 4.4 MEQ/L (3.5-5.1)
[2018-05-23] MEDS: HumaLOG INSULIN (NovoLOG) PER UNIT SC SCH ×4 (08:19→20:37)
[2018-05-23] MEDS: MAGNESIUM OXIDE 400 MG TAB (MAG-OX) PO SCH (08:19)
[2018-05-23] MEDS: SPIRONOLACTONE 25 MG TAB PO SCH (08:19)
[2018-05-23] MEDS: FERROUS SULFATE 325MG TAB PO SCH ×2 (08:19→20:39)
[2018-05-23] MEDS: PARoxetine 20 MG TAB PO SCH (08:19)
[2018-05-23] MEDS: CALCITRIOL 0.25 MCG CAP (S0169) PO SCH (08:19)
[2018-05-23] MEDS: GABAPENTIN 300 MG CAP PO SCH ×2 (08:19→20:38)
[2018-05-23] MEDS: CARVedilol 12.5 MG TAB PO SCH ×2 (08:20→20:38)
[2018-05-23] MEDS: ISOSORBIDE MON. (IMDUR) 30 MG XR TAB PO SCH (08:20)
[2018-05-23 20:01] LABS: APPEARANCE, URINE CLEAR (CLEAR); BACTERIA, URINE AUTO NEGATIVE (NEGATIVE); BILIRUBIN, URINE AUTO NEGATIVE (NEGATIVE); BLOOD, URINE BLOOD 1+ (NEGATIVE); COLOR, URINE YELLOW (YELLOW); GLUCOSE, URINE (UA) AUTO 1+ mg/dL (NEGATIVE); KETONE, URINE AUTO NEGATIVE (NEGATIVE); LEUKOCYTE ESTERASE, URINE AUTO NEGATIVE (NEGATIVE); NITRITE, URINE AUTO NEGATIVE (NEGATIVE); PROTEIN, URINE AUTO NEGATIVE (NEGATIVE); RBC, URINE AUTO 4 /HPF (0-3); SPECIFIC GRAVITY URINE AUTO 1.011 (1.002-1.035); SQUAMOUS EPITHELIAL CELL UR AU 1 /HPF (0-6); UROBILINOGEN, URINE AUTO 0.2 mg/dL (0.0-2.0); WBC, URINE AUTO 1 /HPF (0-3)
[2018-05-23] MEDS: ASPIRIN 81 MG ENTERIC TAB PO SCH (20:38)
[2018-05-23] MEDS: CYCLOBENZAPRINE 10 MG TAB PO PRN (20:39)
[2018-05-23] MEDS: ATORVASTATIN 20 MG TAB PO SCH (20:39)
[2018-05-23] MEDS ORDERED: LEVEMIR (INSULIN DETEMIR) 1 UNITS/0.01ML SC SCH (21:00)
--- NOTE | 2018-05-23 22:34 | IPNPDOC ---
Subjective Date Seen The patient was seen on 05/23/18. Subjective Chief Complaint/HPI Patient states that her foot is bothering her somewhat less. She notes a bit of a tremor in her hands. Constitutional: Denies: Chills, Fever Pulmonary: Denies: Dyspnea, Cough Cardiovascular: Denies: Chest Pain Gastrointestinal: Denies: Nausea, Vomiting, Abdominal Pain, Diarrhea, Constipation Neurological: Reports: Other Symptoms (tremor) Objective Physical Examination General Exam: Positive: Alert, Cooperative, No Acute Distress Eye Exam: Positive: EOMI; Negative: Sclera icteric ENT Exam: Positive: Atraumatic, Mucous membr. moist/pink, Pharynx Normal Chest Exam: Positive: Clear to auscultation, Rales (bilateral lower lobe crackles), Diminished (2/2 to body habitus); Negative: Wheezing Heart Exam: Positive: Rate Normal, Normal S1, Normal S2; Negative: Gallops, Murmurs, Rubs Abdomen Exam: Positive: Normal bowel sounds, Soft (obese abdomen); Negative: Tenderness Extremity Exam: Positive: Edema (1+ pitting edema in bilateral lower extremiti es), Normal pulses, Other (Left lateral foot bandaging removed at bedside shows approximately 12 cm longitudinal wound without purulent drainage extending up toward fibular tendon sheath. ); Negative: Cyanosis Skin Exam: Positive: Nl turgor and temperature Neuro Exam: Positive: Normal Speech, Other (mild tremor right hand) Psych Exam: Positive: Mental status NL, Mood NL Assessment /Plan Problems (1) Diabetic foot infection Status: Acute Problem Text: 05/23 -- Postop day 2 LLE abscess drainage. Wound care per Dr. Calixto. 05/22- Patient is post-op day 1 from LLE wound with abscess formation extending up toward proximal ankle along the fibular tendon sheath. Spoke with Dr. Calixto who is more confident the source of her infection was from the abscess formation. Clinically she is doing and feels much better. Her WBC and CRP have also slightly decreased We will continue her on Zosyn. Wound recommendations per Dr. Calixto's note and Dr. Rodríguez's advisement. 05/21- Patients WBC count and CRP is still elevated however clinically the patient does appear to be improving and has looked much less sick than she did on presentation. I am tempted to follow this rather than follow her WBC count and CRP as indicators. There is a question as to whether repeat imaging is indicated to look for possible abscess formation or whether additional wound debridement may be indicated. Will speak with podiatry and ID about this as well. ADDENDUM: Received call from staff regarding change in patients pain status, she is reporting more LLE foot pain and feels like she is getting sicker. I gave her a one time dose of morphine for her foot pain. After discussion with Dr. Rodríguez we will be changing from cefazolin to zosyn to cover for gram negative infections that would have been missed on initial wound culturing. We looked at the wound together and their is purulent drainage with suspected necrotic tissue. We also spoke with Dr. Calixto who is comfortable taking her to the OR again tonight for I/D and a washout. Their was concern voiced previously that she may have a hematoma or other source of infection outside her foot contributing to the infection. Her hips are stable, she is able to bear weight on them without pain so we think it is unlikely she has an undiagnosed hematoma else where. For now we will change the antibiotic and take the patient to surgery. Patient is NPO since 0900. 05/20- Dr. Calixto had already been to see her this AM and just did a dressing change with no further wound debridement. Will continue to follow his recommendations. 05/19- Dr. Calixto saw patient yesterday and debrided some of her wound at bedside. MRI was negative for osteomyelitis. Wound management per podiatry recommendations, which are appreciated. 05/18-Dr. Calixto has been consulted and will see the patient today. He has requested an MRI without contrast be ordered to look for suspected osteomyelitis. Given that her blood culture was positive we will be consulting infectious disease and placing her on vancomycin as well as Zosyn which should cover both the UTI and her foot wound. We have stopped her fluids as she has 2+ pitting edema with crackles in her lungs. (2) MSSA (methicillin susceptible Staphylococcus aureus) infection Status: Acute Problem Text: 05/23 -- Day 6 of IV abx 05/22- Day 5 of abx. Abscess drained/removed from foot yesterday by , will see how patient improves. Antibiotic regimen per ID recommendations which are appreciated. 05/21- Day 4 of abx. Switching to Zosyn to cover for possible gram negative infe ctions that were not cultured for on initial foot wound culture. 05/20- Patient on day 3 of antibiotics, started cefazolin yesterday. Recommendations about switch to PO medications and duration of treatment are per Dr. Rodríguez. We will continue the IV meds until she weighs in otherwise. Repeat blood cultures are negative. 05/19- ID consulted yesterday after blood and wound culture came back positive for staph. Recommendations are appreciated. Repeat blood cultures were ordered, first repeat is negative for growth. ID recommending changing Vancomycin to Cefazolin in light of MSSA growth. (3) Anemia Status: Acute Problem Text: 05/22- Hgb remains stable at 8.3 s/p surgery. 05/21- Hgb at 8 today and improved from yesterday. Stool hemoccult was negative. 05/20- Patient came in with low Hgb at about 9 which looking through her records is about baseline for her. She states she has a history of iron deficiency anemia with blood transfusions in the past on oral iron supplementation twice a day. Today her Hgb is 7.7. I ordered a stool hemoccult although given her iron supplementation this may not be accurate. I also ordered a type/screen and a repeat H/H for 1000. she reports no history of hemoptysis but says her stools ar e dark colored usually because of her iron tablets. She may have had dilutional anemia previously and now it is just more concentrated in her intravascular space while she moves fluid out from her periphery. Will continue to monitor her Hgb, would advise definitive transfusion if it is 7.0 or below. (4) Diastolic CHF Status: Chronic Problem Text: 05/23 -- appears euvolemic, or close to. I'm holding her Lasix at this time, secondary to worsening renal function. 05/22- Patient still appears euvolemic. I'm guessing the bump in her creatinine is likely due to her procedure from yesterday and the resulting muscle breakdown, will continue to follow clinically for improvement. Continue with net negative lasix dosing. 05/21- -1.4 liters today, I think we will continue net negative lasix as her creatinine is improving and her legs are less edematous. 05/20-Patient put out 2.3 liters yesterday and I no longer appreciate rales in her lungs. We will continue with net negative dosing. Echo results are back showing left ventricular diastolic dysfunction with EF of 65-70%, aortic valve sclerosis without stenosis or regurg, trace mitral regurg, trace tricuspid regurg, and trace pericardial effusion without evidence of tamponade. 05/19- Patient was given 120 mg IV lasix dose last night as she was not putting out much urine, she has put out 1 L so far today. We will continue her on net negative lasix dosing. 05/18patient is clearly in volume overload with 2+ pitting edema and crackles in bilateral lungs. We are ordering net-negative Lasix dosing to diuresis her. (5) CKD (chronic kidney disease), stage IV Status: Chronic Discussed With: Other Discussed With: Problem Text: 05/23 -- Holding Lasix secondary to worsening creatinine. UA ordered. Medications including abx may contribute to nephrotoxicity. If not improved tomorrow, may benefit from nephro consult. 05/21- Creatinine is trending down still, BUN is still trending up. 05/20- Her Creatinine is improved today, however her BUN is elevated. 05/19- Difficult to pinpoint her baseline creatinine. It could be as low as ~2 which would put her in a mild BETTY, I suspect a component of this is from her general volume overload and may correct some as her kidneys become better perfused, will continue to monitor. (6) DM2 (diabetes mellitus, type 2) Status: Chronic Problem Text: 05/23 -- Increased Levemir secondary to her hyperglycemia. She is still on much less than her home dosing. 05/22- Patient is now eating more than she did previously, so far today she has required 18 units of insulin per sliding scale. Will give her 8 units of levemir this evening and see how she does tomorrow. 05/20- Will continue with sliding scale insulin and we will see what her insulin requirements have been over the last 2 days. She has not been requiring any night time insulin and only needed 6 units before meals. Will continue to monitor, but she may not require any basal insulin. 05/19- Patient was hypoglycemic again this morning. Another Amp of D50 was given which brought her levels up. She already received her AM dose of levemir, but I have D/C'd her levemir for now until we are better able to figure out her baseline. We will continue sliding scale insulin. Order placed for HgbA1c. 05/18Overnight patient was on her regular dosing of home insulin and had an episode of hypoglycemia this morning. We are cutting her basal insulin dosing in half and keep her on sliding scale. (7) Physical deconditioning Problem Text: 05/20- PT consulted to evaluate and treat. (8) Hyponatremia Status: Acute Problem Text: 05/20- Na stable at 133 today. 05/19- Na of 132 today even after aggressive diuresis, will continue to monitor. 05/18patient had sodium of 129 at admission and after a night of IV fluids sodium improved to 133. Questioning whether this patient had a hypervolemic hyponatremia given her volume status. (9) Hyperlipidemia Status: Chronic Problem Text: Continue with home medications (10) HTN (hypertension) Status: Chronic Problem Text: 05/19- Blood pressures have been okay so far this admission. 05/18-Patient okay to continue with home medications. (11) UTI (urinary tract infection) Status: Resolved Problem Text: 05/19- Culture negative, Zosyn discontinued by ID. 05/18UA positive, cultures pending, treating with Zosyn. Plan/VTE VTE Prophylaxis Ordered?: Yes VS, I&O, 24H, Fishbone Vital Signs/I&O Vital Signs Date Time Temp Pulse Resp B/P (MAP) Pulse Ox O2 Delivery O2 Flow Rate FiO2 05/23/18 20:38 70 136/60 05/23/18 20:00 96.6 18 100 2.0 05/19/18 06:00 97 05/18/18 12:38 Room Air I&O- Last 24 Hours up to 6 AM 05/23/18 06:00 Intake Total 810 ml Output Total 950 ml Balance -140 ml Laboratory Data 24H LABS Laboratory Tests 2 05/23/18 05:12: Nucleated Red Blood Cells % (auto) 0.0, Anion Gap 11, Glomerular Filtration Rate 13.6L, Blood Urea Nitrogen 99H, Creatinine 3.58H, Sodium Level 131L, Potassium Level 4.4, Chloride Level 93L, Carbon Dioxide Level 27, Calcium Level 8.4L, C- Reactive Protein, Quantitative 22.00H 05/23/18 07:49: Bedside Glucose (Misc Panel) 404H 05/23/18 11:46: Bedside Glucose (Misc Panel) 457H 05/23/18 17:29: Bedside Glucose (Misc Panel) 388H 05/23/18 19:42: Urine Appearance CLEAR, Urine Color YELLOW, Urine pH 5.0, Urine Specific [place] 1.011, Urine Protein NEGATIVE, Urine Glucose (UA) 1+H, Urine Ketones NEGATIVE, Urine Urobilinogen 0.2, Urine Bilirubin NEGATIVE, Urine Leukocyte Esterase NEGATIVE, Urine Blood 1+H, Urine Nitrite NEGATIVE, Urine WBC (Auto) 1, Urine RBC (Auto) 4H, Urine Hyaline Casts (Auto) 0, Urine Bacteria (Auto) NEGATIVE, Urine Squamous Epithelial Cells 1, Urine Sperm (Auto) 05/23/18 20:18: Bedside Glucose (Misc Panel) 396H CBC/BMP Laboratory Tests 05/23/18 05:12 Red Blood Count 2.48 L, Mean Corpuscular Volume 95.2, Mean Corpuscular Hemoglobin 30.2, Mean Corpuscular Hemoglobin Concent 31.8 L, Red Cell Distribution Width 13.9, Calcium Level 8.4 L Microbiology Microbiology 05/19/18 Blood Culture - Preliminary, Resulted No Growth after 72 hours. All specime... 05/18/18 Blood Culture - Final, Complete NO GROWTH AFTER 5 DAYS 05/17/18 Blood Culture - Final, Complete Staphylococcus Aureus 05/20/18 Stool Occult Blood ([facility]) - Final, Complete 05/17/18 Urine Culture - Final, Complete 05/17/18 Wound Culture - Final, Complete Staphylococcus Aureus MOE TOLENTINO DO May 23, 2018 22:34
[2018-05-24 04:00] VITALS: BP 143/66
[2018-05-24] MEDS: PIPERACILLIN/TAZOBACTAM SOD 2.25 GM in D5W MINI-BAG PLUS 50 ML IV SCH ×2 (04:00→12:28)
[2018-05-24] MEDS: HEPARIN SOD (PORCINE) 5000 UNITS/ML VIAL SC SCH ×3 (05:25→20:41)
[2018-05-24] MEDS: SLF 3 ML SYR IV SCH ×3 (05:25→20:42)
[2018-05-24 05:45] LABS: HEMATOCRIT 22.7 % (36.0-47.0); MEAN CORPUSCULAR HEMOGLOBIN 29.3 pg (27.0-33.0); MEAN CORPUSCULAR VOLUME 97.8 fl (80.0-96.0); PLATELET COUNT, AUTOMATED 222 10^3/uL (150-450); RED BLOOD COUNT 2.32 10^6/uL (4.00-5.40); WHITE BLOOD COUNT 13.9 10^3/uL (4.0-10.0)
[2018-05-24 05:47] LABS: HEMOGLOBIN 6.8 g/dl (12.0-15.5)
[2018-05-24 06:05] LABS: C REACTIVE PROTEIN QUANTITATIV 13.2 MG/DL (0.00-0.30); CALCIUM LEVEL 8.4 MG/DL (8.8-10.2); CREATININE FOR GFR 3.69 MG/DL (0.55-1.30); GLOMERULAR FILTRATION RATE 13.1 (>45); POTASSIUM SERUM 4.3 MEQ/L (3.5-5.1)
[2018-05-24 08:00] VITALS: BP 150/58
[2018-05-24] MEDS: HumaLOG INSULIN (NovoLOG) PER UNIT SC SCH ×4 (08:25→20:52)
[2018-05-24] MEDS: PARoxetine 20 MG TAB PO SCH (08:25)
[2018-05-24] MEDS: FERROUS SULFATE 325MG TAB PO SCH ×2 (08:25→20:40)
[2018-05-24] MEDS: CALCITRIOL 0.25 MCG CAP (S0169) PO SCH (08:25)
[2018-05-24] MEDS: CARVedilol 12.5 MG TAB PO SCH ×2 (08:26→20:41)
[2018-05-24] MEDS: MAGNESIUM OXIDE 400 MG TAB (MAG-OX) PO SCH (08:26)
[2018-05-24] MEDS: GABAPENTIN 300 MG CAP PO SCH ×2 (08:26→20:40)
[2018-05-24] MEDS: SPIRONOLACTONE 25 MG TAB PO SCH (08:26)
[2018-05-24] MEDS: ISOSORBIDE MON. (IMDUR) 30 MG XR TAB PO SCH (08:27)
--- NOTE | 2018-05-24 10:23 | IPNPDOC ---
Subjective Date Seen The patient was seen on 05/24/18. Subjective Chief Complaint/HPI Pt this morning reports a jerking motion in her hands/arms that started in the last couple of days. Intermittently difficulty holding onto items with her hands. Pain in her L foot. General: Reports: Fatigue Constitutional: Denies: Chills, Fever Pulmonary: Denies: Dyspnea, Cough Cardiovascular: Denies: Chest Pain, Palpitations Gastrointestinal: Denies: Nausea, Vomiting, Diarrhea Neurological: Reports: Weakness Psych: Reports: Depression; Denies: Mood Normal Objective Physical Examination General Exam: Positive: Alert, Cooperative, No Acute Distress ENT Exam: Positive: Atraumatic, Mucous membr. moist/pink Chest Exam: Positive: Rales (bilateral lower lobe crackles), Diminished (2/2 to body habitus); Negative: Clear to auscultation, Wheezing Heart Exam: Positive: Rate Normal, Normal S1, Normal S2; Negative: Gallops, Murmurs, Rubs Abdomen Exam: Positive: Normal bowel sounds, Soft (obese abdomen); Negative: Tenderness Extremity Exam: Positive: Edema (1+ pitting edema in bilateral lower extremities), Normal pulses, Other (LLE wrapped); Negative: Cyanosis Skin Exam: Positive: Nl turgor and temperature Neuro Exam: Positive: Normal Speech, Other (mild tremor right hand) Psych Exam: Positive: Mental status NL, Mood NL Assessment /Plan Problems (1) Diabetic foot infection Status: Acute Problem Text: 05/[address] Calixto, is away. Requested PT wound eval. Dr Rodríguez/ID following. Changed from cefazolin to Zosyn 05/21 per ID. WBC trending down from 19 to 13.9, CRP down from 22 to 13. Afebrile for more than 24 h. 05/23 -- Postop day 2 LLE abscess drainage. Wound care per Dr. Calixto. 05/22- Patient is post-op day 1 from LLE wound with abscess formation extending up toward proximal ankle along the fibular tendon sheath. Spoke with Dr. Mario antunez who is more confident the source of her infection was from the abscess formation. Clinically she is doing and feels much better. Her WBC and CRP have also slightly decreased We will continue her on Zosyn. Wound recommendations per Dr. Calixto's note and Dr. Rodríguez's advisement. 05/21- Patients WBC count and CRP is still elevated however clinically the patient does appear to be improving and has looked much less sick than she did on presentation. I am tempted to follow this rather than follow her WBC count and CRP as indicators. There is a question as to whether repeat imaging is indicated to look for possible abscess formation or whether additional wound debridement may be indicated. Will speak with podiatry and ID about this as well. ADDENDUM: Received call from staff regarding change in patients pain status, she is reporting more LLE foot pain and feels like she is getting sicker. I gave her a one time dose of morphine for her foot pain. After discussion with Dr. Rodríguez we will be changing from cefazolin to zosyn to cover for gram negative infections that would have been missed on initial wound culturing. We looked at the wound together and their is purulent drainage with suspected necrotic tissue. We also spoke with Dr. Calixto who is comfortable taking her to the OR again tonight for I/D and a washout. Their was concern voiced previously that she may have a hematoma or other source of infection outside her foot contributing to the infection. Her hips are stable, she is able to bear weight on them without pain so we think it is unlikely she has an undiagnosed hematoma else where. For now we will change the antibiotic and take the patient to surgery. Patient is NPO since 0900. 05/20- Dr. Calixto had already been to see her this AM and just did a dressing change with no further wound debridement. Will continue to follow his recommendations. 05/19- Dr. Calixto saw patient yesterday and debrided some of her wound at bedside. MRI was negative for osteomyelitis. Wound management per podiatry recommendations, which are appreciated. 05/18-Dr. Calixto has been consulted and will see the patient today. He has requested an MRI without contrast be ordered to look for suspected osteomyelitis. Given that her blood culture was positive we will be consulting infectious disease and placing her on vancomycin as well as Zosyn which should cover both the UTI and her foot wound. We have stopped her fluids as she has 2+ pitting edema with crackles in her lungs. (2) MSSA (methicillin susceptible Staphylococcus aureus) infection Status: Acute Problem Text: 05/18, 05/19 BCX NG (3) Anemia Status: Acute Problem Text: 05/24 Hgb 6.8 this am, rechecked at 7.3, will obtain consent for transfusion, hold off on transfusion until seen by Nephro. 10/10 Hgb 10.1, Heme neg. Likely assoc with CKD/ARF 05/22- Hgb remains stable at 8.3 s/p surgery. 05/21- Hgb at 8 today and improved from yesterday. Stool hemoccult was negative. 05/20- Patient came in with low Hgb at about 9 which looking through her records is about baseline for her. She states she has a history of iron deficiency anemia with blood transfusions in the past on oral iron supplementation twice a day. Today her Hgb is 7.7. I ordered a stool hemoccult although given her iron supplementation this may not be accurate. I also ordered a type/screen and a repeat H/H for 1000. she reports no history of hemoptysis but says her stools are dark colored usually because of her iron tablets. She may have had dilutional anemia previously and now it is just more concentrated in her intravascular space while she moves fluid out from her periphery. Will continue to monitor her Hgb, would advise definitive transfusion if it is 7.0 or below. (4) Diastolic CHF Status: Chronic Problem Text: Poor UOP c IV fur-off since 05/20 AM (5) CKD (chronic kidney disease), stage IV Status: Chronic Discussed With: Other Discussed With: Problem Text: 05/24 Scr 3.69, Spoke with Dr Dong who will see the pt today, consult placed-Permacath to be placed by [facility] baseline cr mid 2s (6) DM2 (diabetes mellitus, type 2) Status: Chronic Problem Text: 05/24 Levemir increased last night, had been on 8 units, rec 25 units last night. FSBS this AM 385. As outpt, she takes 70 unit Lantus in the morning and 60 in the evening, will cont to titrate her Levemir. On Levemir 25 units before bed, will increase to BID 30 units. 05/23 -- Increased Levemir secondary to her hyperglycemia. She is still on much less than her home dosing. 05/22- Patient is now eating more than she did previously, so far today she has required 18 units of insulin per sliding scale. Will give her 8 units of levemir this evening and see how she does tomorrow. 05/20- Will continue with sliding scale insulin and we will see what her insulin requirements have been over the last 2 days. She has not been requiring any night time insulin and only needed 6 units before meals. Will continue to monitor, but she may not require any basal insulin. 05/19- Patient was hypoglycemic again this morning. Another Amp of D50 was given which brought her levels up. She already received her AM dose of levemir, but I have D/C'd her levemir for now until we are better able to figure out her base line. We will continue sliding scale insulin. Order placed for HgbA1c. 05/18Overnight patient was on her regular dosing of home insulin and had an episode of hypoglycemia this morning. We are cutting her basal insulin dosing in half and keep her on sliding scale. (7) Physical deconditioning Problem Text: 05/20- PT consulted to evaluate and treat. (8) Hyperlipidemia Status: Chronic Problem Text: Continue with home medications (9) HTN (hypertension) Status: Chronic Problem Text: 05/19- Blood pressures have been okay so far this admission. 05/18-Patient okay to continue with home medications. Plan/VTE VTE Prophylaxis Ordered?: Yes VS, I&O, 24H, Fishbone Vital Signs/I&O Vital Signs Date Time Temp Pulse Resp B/P (MAP) Pulse Ox O2 Delivery O2 Flow Rate FiO2 05/24/18 08:26 77 150/58 05/24/18 08:00 97.9 16 100 2.0 05/19/18 06:00 97 05/18/18 12:38 Room Air I&O- Last 24 Hours up to 6 AM 05/24/18 06:00 Intake Total 820 ml Output Total 1700 ml Balance -880 ml Laboratory Data 24H LABS Laboratory Tests 2 05/23/18 11:46: Bedside Glucose (Misc Panel) 457H 05/23/18 17:29: Bedside Glucose (Misc Panel) 388H 05/23/18 19:42: Urine Appearance CLEAR, Urine Color YELLOW, Urine pH 5.0, Urine Specific [place] 1.011, Urine Protein NEGATIVE, Urine Glucose (UA) 1+H, Urine Ketones NEGATIVE, Urine Urobilinogen 0.2, Urine Bilirubin NEGATIVE, Urine Leukocyte Esterase NEGATIVE, Urine Blood 1+H, Urine Nitrite NEGATIVE, Urine WBC (Auto) 1, Urine RBC (Auto) 4H, Urine Hyaline Casts (Auto) 0, Urine Bacteria (Auto) NEGATIVE, Urine Squamous Epithelial Cells 1, Urine Sperm (Auto) 05/23/18 20:18: Bedside Glucose (Misc Panel) 396H 05/24/18 05:18: Nucleated Red Blood Cells % (auto) 0.0, Anion Gap 10, Glomerular Filtration Rate 13.1L, Blood Urea Nitrogen 106H, Creatinine 3.69H, Sodium Level 134L, Potassium Level 4.3, Chloride Level 95L, Carbon Dioxide Level 29, Calcium Level 8.4L, C- Reactive Protein, Quantitative 13.20H CBC/BMP Laboratory Tests 05/24/18 05:18 Red Blood Count 2.32 L, Mean Corpuscular Volume 97.8 H, Mean Corpuscular Hemoglobin 29.3, Mean Corpuscular Hemoglobin Concent 30.0 L, Red Cell Distribution Width 14.3, Calcium Level 8.4 L 05/24/18 06:22 Microbiology Microbiology 05/19/18 Blood Culture - Final, Complete NO GROWTH AFTER 5 DAYS 05/18/18 Blood Culture - Final, Complete NO GROWTH AFTER 5 DAYS 05/17/18 Blood Culture - Final, Complete Staphylococcus Aureus 05/20/18 Stool Occult Blood ([facility]) - Final, Complete 05/17/18 Urine Culture - Final, Complete 05/17/18 Wound Culture - Final, Complete Staphylococcus Aureus MEGHAN VELÁSQUEZ PA-C May 24, 2018 10:23 Alonzo Del Castillo M.D. May 24, 2018 15:53
[2018-05-24 12:00] VITALS: BP 145/61
--- NOTE | 2018-05-24 12:14 | RO ---
DATE OF PROCEDURE: 05/21/2018 PREOPERATIVE DIAGNOSIS: Lateral compartment infection with stage IV wound left foot. POSTOPERATIVE DIAGNOSIS: Lateral compartment infection with infection of the common peroneal tendon sheath left foot. PROCEDURE PERFORMED:Incision of complex abscess with peroneal tendon sheath, lateral compartment abscess, left foot SURGEON: Roscoe Calixto DPM RN OCCUPATIONAL HEALTH: None. ANESTHESIA: Local MAC IRRIGATION: 6 liters of dilute vancomycin solution with a low pressure pulse lavage system. HEMOSTASIS: None. ESTIMATED BLOOD LOSS: 50 mL. DRAINS UTILIZED: 1/4-inch Iodoform gauze. DESCRIPTION OF OPERATION: On 05/21/2018, this 67-year-old female was taken from her hospital room to the operating room and placed on the operating table in a supine position. Following the induction of intravenous (IV) sedation and local and regional anesthesia, the left lower extremity was prepped and draped in the usual aseptic manner. Attention was directed to the patient's left foot where there was noted to be a stage IV wound over the lateral aspect of the foot with a sinus tract extending to the distal aspect of the foot. The wound was debrided with a sterile curet and utilizing a hemostat the infection tract was followed and then the skin was excised distally 4 cm opening the entire space. This area was explored. There was a small area extending into the plantar lateral compartment following the flexor muscle belly. This was traced plantarly and a small stab incision was placed on the plantar surface of the foot measuring approximately 1 cm. The wound was then explored in a proximal direction and the infection was following the lateral compartment. This was extended initially approximately 3 cm, however with plantar pressure on the leg purulent material was seen coming down the peroneal tendon sheath. This was explored in a proximal direction to the combined sheath of the common peroneal tendons to the area of the lateral malleolus and no other purulent matter was seen extending further of tendon sheath. Utilizing a low pressure pulse lavage system, 6 liters of dilute vancomycin solution was irrigated through the entire wound. Suction was brought up the tendon sheath. There was no purulence in that superior direction. The entire tendon sheath was then packed with 1/4 inch iodoform gauze up the tendon sheath and down through the lateral compartment down to the plantar surface of the foot. This was closed over a lightly compressive dressing. All bleeding as encountered were electrocoagulated. Starting in 24 hours, the bandage will be removed. All packing removed. Irrigate the wound with Vashe, let stand for 15 minutes, apply Drawtex the entire length of the incision, which measures 8.5 cm proximal from the ulcer site, 4 cm distal from the ulcer site and the central ulcer site measures 3 cm x 1.5 cm x 1.3 cm in depth. Discussed with the patient that I will be out of town for a week. Dr. Rodríguez is covering my service. If the patient requires any surgery, they can notify Dr. Geoffrey Thornton DPM. BHARATH
[2018-05-24] MEDS: LEVEMIR (INSULIN DETEMIR) 1 UNITS/0.01ML SC SCH ×2 (12:28→20:41)
[2018-05-24 12:42] LABS: HEPATITIS B CORE ANTIBODY IGM NEGATIVE (NEGATIVE); HEPATITIS B SURFACE ANTIBODY NEGATIVE (POSITIVE); HEPATITIS B SURFACE ANTIGEN NEGATIVE (NEGATIVE); HEPATITIS C VIRUS ABY INDEX 0.1 INDEX (<0.8)
[2018-05-24 17:50] VITALS: BP 178/68
[2018-05-24] MEDS: ceFAZolin SOD 1 GM in D5W MINI-BAG PLUS 50 ML IV SCH (17:50)
--- NOTE | 2018-05-24 18:02 | REP ---
Clinical: Left lower extremity nonhealing wound. Technique: Real time hayes scale and color Doppler evaluation of the left lower extremity arterial vasculature using linear high frequency transducer. Findings: The ankle to brachial index could not be obtained. Color Doppler interrogation demonstrates normal triphasic wave patterns and velocities of the common femoral artery and profunda femoris followed by monophasic wave patterns from the proximal femoral artery through the distal posterior tibial and anterior tibial arteries along with the areas of mixed atheromatous plaquing which appear to cause moderate stenosis of the mid/distal superficial femoral artery and moderate to severe stenosis of the distal posterior tibial artery. PSV(cm/sec) LEFT Common femoral artery 214 cm/s Profunda femoris artery 167 cm/s Proximal superficial femoral artery 150 cm/s Mid superficial femoral artery 129 cm/s Distal superficial femoral artery 250 cm/s Popliteal artery 139 cm/s Proximal JAMEL 62 cm/s Tibioperoneal trunk 147 cm/s Proximal HAM MARKER 33 cm/s Distal HAM MARKER 130 cm/s Distal JAMEL 40 cm/s Impression: Findings are consistent with moderate to significant stenosis and a areas of mid/distal superficial femoral artery and distal posterior tibial artery. Electronically Signed by Isra Ortiz MD 05/24/2018 05:53 P
[2018-05-24 20:00] VITALS: BP 184/72
[2018-05-24] MEDS: ATORVASTATIN 20 MG TAB PO SCH (20:40)
[2018-05-24] MEDS: ASPIRIN 81 MG ENTERIC TAB PO SCH (20:40)
[2018-05-24 23:59] VITALS: BP 162/64
[2018-05-25 04:00] VITALS: BP 162/78
[2018-05-25] MEDS: ceFAZolin SOD 1 GM in D5W MINI-BAG PLUS 50 ML IV SCH ×2 (05:06→18:27)
[2018-05-25] MEDS: SLF 3 ML SYR IV SCH ×3 (05:07→21:20)
[2018-05-25] MEDS: HEPARIN SOD (PORCINE) 5000 UNITS/ML VIAL SC SCH ×3 (05:07→21:20)
[2018-05-25 05:55] LABS: HEMATOCRIT 23.3 % (36.0-47.0); HEMOGLOBIN 7.2 g/dl (12.0-15.5); MEAN CORPUSCULAR HGB CONC 30.9 g/dl (32.0-36.5); MEAN CORPUSCULAR VOLUME 97.1 fl (80.0-96.0); PLATELET COUNT, AUTOMATED 247 10^3/uL (150-450); WHITE BLOOD COUNT 16.3 10^3/uL (4.0-10.0)
[2018-05-25 06:12] LABS: ALBUMIN 1.9 GM/DL (3.2-5.2); C REACTIVE PROTEIN QUANTITATIV 13.9 MG/DL (0.00-0.30); CALCIUM LEVEL 8.1 MG/DL (8.8-10.2); CREATININE FOR GFR 3.3 MG/DL (0.55-1.30); GLOMERULAR FILTRATION RATE 14.9 (>45); PHOSPHORUS LEVEL 4.6 MG/DL (2.5-4.9); POTASSIUM SERUM 4.3 MEQ/L (3.5-5.1)
[2018-05-25] MEDS: HumaLOG INSULIN (NovoLOG) PER UNIT SC SCH ×4 (07:30→21:19)
[2018-05-25 08:00] VITALS: BP 165/94
--- NOTE | 2018-05-25 08:17 | REP ---
Bilateral upper extremity arterial and venous Doppler ultrasound: History: End-stage renal disease. Vein mapping study. Findings: There is a a segment of nonocclusive thrombosis involving the left cephalic vein in the antecubital fossa. No other evidence of venous thrombosis is seen. Normal arterial wave forms are noted. Right upper extremity vein diameter chart: Upper humerus basilic vein 5.4 mm, cephalic vein 3.3 mm Lower humerus basilic 4.0 mm, cephalic 3.4 mm Antecubital fossa basilic 2.1 mm, cephalic 2.4 mm Upper forearm basilic 1.4 mm, cephalic 0.9 mm Median cubital 1.6 mm Lower forearm and wrist, basilic and cephalic veins not seen Left upper extremity vein diameter chart: Upper humerus basilic 4.7 mm, cephalic 3.6 mm Lower humerus basilic 4.4 mm, cephalic 4.0 mm Antecubital basilic 2.4 mm, cephalic 7.2 mm Upper forearm basilic 1.6 mm, cephalic not seen Lower forearm and wrist not seen Median cubital 1.6 mm Right upper extremity arterial Doppler velocity and size chart: Right axillary artery 93 cm/S, 5.1 mm Brachial artery 137 cm/S, 3.5 mm Radial artery 119 cm/S, 1.8 mm, ulnar artery 107 cm/S, 1.5 mm Left upper extremity arterial Doppler velocity and size chart: Axillary artery 99 cm/S, 6.6 mm, brachial artery 123 cm/S, 4.1 mm Radial artery 101 cm/S, 2.1 mm Ulnar artery 126 cm/S, 1.6 mm Electronically Signed by Mihai Burrows MD 05/25/2018 08:08 A
[2018-05-25] MEDS: FERROUS SULFATE 325MG TAB PO SCH ×2 (08:49→21:18)
[2018-05-25] MEDS: CARVedilol 12.5 MG TAB PO SCH ×2 (08:51→21:18)
[2018-05-25] MEDS: PARoxetine 20 MG TAB PO SCH (08:51)
[2018-05-25] MEDS: GABAPENTIN 300 MG CAP PO SCH ×2 (08:51→21:18)
[2018-05-25] MEDS: CALCITRIOL 0.25 MCG CAP (S0169) PO SCH (08:51)
[2018-05-25] MEDS: MAGNESIUM OXIDE 400 MG TAB (MAG-OX) PO SCH (08:52)
[2018-05-25] MEDS: SPIRONOLACTONE 25 MG TAB PO SCH (08:52)
[2018-05-25] MEDS: ISOSORBIDE MON. (IMDUR) 30 MG XR TAB PO SCH (08:52)
[2018-05-25] MEDS: LEVEMIR (INSULIN DETEMIR) 1 UNITS/0.01ML SC SCH ×2 (08:53→21:20)
[2018-05-25] MEDS ORDERED: LIDOCAINE 2% MDV 20 ML VIAL As Ordered ONE (09:25)
[2018-05-25] MEDS ORDERED: HEPARIN 1,000 UNITS/ML 10ML VIAL (FOR RADIOLOGY& DIALYSIS ONLY) As Ordered ONE (09:25)
[2018-05-25] MEDS ORDERED: BUPIVACAINE HCL 0.5% 10 ML VIAL As Ordered ONE (09:25)
--- NOTE | 2018-05-25 09:36 | CR ---
DATE OF CONSULTATION: 05/24/2018 REASON FOR CONSULTATION: Acute renal failure and chronic kidney disease. HISTORY OF PRESENT ILLNESS: Mrs. Narayan is a 67-year-old female with multiple chronic medical problems including type 2 diabetes, hypertension, peripheral vascular disease, stage IV to stage V of chronic kidney disease, peripheral neuropathy and hyperlipidemia. She was admitted to [facility] on May 17 with infected wound on her left foot where she already has multiple toes removed. She is being treated with antibiotics for infected wound. During her stay here her kidney function has worsened and creatinine is up to 3.7 today. The patient is not feeling well and probably has developed some uremic symptoms. A nephrology consultation was requested this morning and the patient is seen in her room. PAST MEDICAL AND SURGICAL HISTORY: Significant for: 1. Longstanding diabetes. 2. Hypertension. 3. Stage IV to stage V chronic kidney disease. 4. She also has history of diabetic nephropathy. 5. Hyperlipidemia. 6. Anemia of chronic kidney disease. 7. Secondary hyperparathyroidism. 8. She also has history of coronary artery disease. PAST SURGICAL HISTORY: Significant for: 1. Amputation of first, second, fourth and fifth toes on the right foot and third fourth and fifth toes on the left. 2. She has history of hysterectomy. 3. Cholecystectomy. 4. Appendectomy. 5. She has history of bilateral atrioventricular (AV) fistula creation, which have both failed. MEDICATIONS: Her home medications include: - vitamin D 50,000 units once a week - Lantus insulin 60 units at bedtime - Tradjenta 5 mg daily - Sofia-Nicolas 1 tablet daily - aspirin 81 mg daily - Lipitor 40 mg daily - calcitriol 0.25 mcg daily - Coreg 12.5 mg b.i.d. - ferrous sulfate 325 mg twice a day - gabapentin 300 mg in a.m. and 600 mg at bedtime - Imdur 30 mg daily - magnesium oxide 400 mg daily - paroxetine 40 mg daily - spironolactone 25 mg daily - torsemide 40 mg daily ALLERGIES: She has allergy to: 1. HYDROCODONE. 2. SODIUM BICARBONATE 3. CITRIC ACID. 4. Tape. PERSONAL AND SOCIAL HISTORY: The patient is and lives with her . She does have two children from her previous marriage. She denies any alcohol or tobacco use. FAMILY HISTORY: Negative for end-stage renal disease. REVIEW OF SYSTEMS: The patient generally not feeling well. She feels tired and has poor appetite. She denies any fever or chills. Ears, nose and throat are unremarkable. Cardiovascular system is significant for shortness of breath and leg edema. Respiratory system is negative for cough or hemoptysis. Gastrointestinal (GI) system is significant for poor appetite but no vomiting or diarrhea. Genitourinary () system is negative for dysuria or hematuria. Endocrine system is significant for type 2 diabetes and secondary hyperparathyroidism. Neurological system is significant for tremulousness, but no history of seizures or stroke. She does have peripheral neuropathy. Musculoskeletal system is significant for multiple toe amputations. Hematological system is significant for anemia. She denies any easy bruising or excessive bleeding. She is not on any anticoagulation. PHYSICAL EXAMINATION: Temperature 97.4 degrees Fahrenheit, heart rate 75 per minute and respiratory rate 16 per minute. Blood pressure 145/60 mmHg and oxygen saturation 98% on 2 liters oxygen. Her head is atraumatic. Neck is supple and JVD is about 8 cm above sternal angle. There is no oral thrush or ulcers. Heart sounds are regular and lungs with diminished breath sounds and bibasilar rales. Abdomen soft and nontender. Bowel sounds are normal. Extremities have no cyanosis or clubbing. Left foot is wrapped in dressing. She has a few toes missing from her right foot and a few from the left. She also has 2+ edema on her legs. Neurologically, she is awake, alert and oriented times three. LABORATORY DATA: Today's labs show WBC count 13.9, hemoglobin 6.8 and hematocrit 22.7. Platelets 222. A repeat hemoglobin is 7.3. Sodium is 134, potassium 4.3, CO2 29, BUN 106 and creatinine 3.69. Glucose 385 and calcium 8.4. On admission her BUN was 58 and creatinine 2.9. PROBLEMS: 1. Acute renal failure superimposed on chronic kidney disease. The patient has known history of advanced stage IV of chronic kidney disease at baseline. Her kidney function has worsened most likely related to infected left foot. She has decompensated volume status. Her kidney disease has progressed to the point that she is not likely to improve without dialysis. I have discussed with her and she understands as she was already being prepared for dialysis as an outpatient. Both arms had AV fistulas created which have failed and she will need an AV graft. I am going to consult vascular surgery for a PermaCath placement for temporary use and an AV graft at later time. 2. Congestive heart failure. Her volume status is decompensated and we will correct it with dialysis. I am not going to diurese her today as she is still oxygenating well with only 2 liters oxygen. Diuresing her is likely to worsen her symptoms of uremia. 3. Anemia. She has severe anemia and is most likely to require transfusion. We will consider transfusing her during dialysis. 4. Hypertension. Blood pressure is reasonably well-controlled and current antihypertensives should continue. 5. Infected wound left foot. The patient remains on intravenous antibiotic and wound care. She already had a debridement done. She is currently on Zosyn 2.25 grams every 8 hours. Thank you for involving me in the care of Mrs. Narayan. I will follow her along with you.
--- NOTE | 2018-05-25 10:17 | IPNPDOC ---
Subjective Date Seen The patient was seen on 05/25/18. 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 moist/pink Chest Exam: Positive: Diminished (2/2 to body habitus); Negative: Clear to auscultation, Rales, Rhonchi, Wheezing Heart Exam: Positive: Rate Normal, Normal S1, Normal S2; Negative: Gallops, Murmurs, Rubs Abdomen Exam: Positive: Normal bowel sounds, Soft (obese abdomen); Negative: Tenderness Extremity Exam: Positive: Edema (1+ pitting edema in bilateral lower extremities), Normal pulses, Other (LLE wrapped); Negative: Cyanosis Skin Exam: Positive: Nl turgor and temperature Neuro Exam: Positive: Normal Speech, Other (mild tremor right hand) Psych Exam: Positive: Mental status NL, Mood NL Assessment /Plan Problems (1) CKD (chronic kidney disease), stage IV Status: Chronic Discussed With: Other Discussed With: Problem Text: 05/25 - Plan for Permacath placement this am with plan to initiate HD 05/24 Scr 3.69, Spoke with Dr Dong who will see the pt today, consult placed- Permacath to be placed by Byron jones cr mid 2s (2) Diabetic foot infection Status: Acute Problem Text: 05/25 - POD#4 Dr Calixto, is away. Requested PT wound eval. Dr Rodríguez/ID following. Changed from cefazolin to Zosyn 05/21 per ID. WBC trending back up slightly, CRP down from 22 to 13. Afebrile for more than 24 h. 05/[address] Calixto, is away. Requested PT wound eval. Dr Rodríguez/ID following. Changed from cefazolin to Zosyn 05/21 per ID. WBC trending down from 19 to 13.9, CRP down from 22 to 13. Afebrile for more than 24 h. 05/23 -- Postop day 2 LLE abscess drainage. Wound care per Dr. Calixto. 05/22- Patient is post-op day 1 from LLE wound with abscess formation extending up toward proximal ankle along the fibular tendon sheath. Spoke with Dr. Calixto who is more confident the source of her infection was from the abscess formation. Clinically she is doing and feels much better. Her WBC and CRP have also slightly decreased We will continue her on Zosyn. Wound recommendations per Dr. Calixto's note and Dr. Rodríguez's advisement. 05/21- Patients WBC count and CRP is still elevated however clinically the p atient does appear to be improving and has looked much less sick than she did on presentation. I am tempted to follow this rather than follow her WBC count and CRP as indicators. There is a question as to whether repeat imaging is indicated to look for possible abscess formation or whether additional wound debridement may be indicated. Will speak with podiatry and ID about this as well. ADDENDUM: Received call from staff regarding change in patients pain status, she is reporting more LLE foot pain and feels like she is getting sicker. I gave her a one time dose of morphine for her foot pain. After discussion with Dr. Rodríguez we will be changing from cefazolin to zosyn to cover for gram negative infections that would have been missed on initial wound culturing. We looked at the wound together and their is purulent drainage with suspected necrotic tissue. We also spoke with Dr. Calixto who is comfortable taking her to the OR again tonight for I/D and a washout. Their was concern voiced previously that she may have a hematoma or other source of infection outside her foot contributing to the infection. Her hips are stable, she is able to bear weight on them without pain so we think it is unlikely she has an undiagnosed hematoma else where. For now we will change the antibiotic and take the patient to surgery. Patient is NPO since 0900. 05/20- Dr. Calixto had already been to see her this AM and just did a dressing change with no further wound debridement. Will continue to follow his recommendations. 05/19- Dr. Calixto saw patient yesterday and debrided some of her wound at bedside. MRI was negative for osteomyelitis. Wound management per podiatry recommendations, which are appreciated. 05/18-Dr. Calixto has been consulted and will see the patient today. He has req uested an MRI without contrast be ordered to look for suspected osteomyelitis. Given that her blood culture was positive we will be consulting infectious disease and placing her on vancomycin as well as Zosyn which should cover both the UTI and her foot wound. We have stopped her fluids as she has 2+ pitting edema with crackles in her lungs. (3) MSSA (methicillin susceptible Staphylococcus aureus) infection Status: Acute Problem Text: 05/18, 05/19 BCX NG (4) Anemia Status: Acute Problem Text: 05/25 - Hgb = 7.2 - 1 unit PRBC ordered by Dr. Cornell this am 05/24 Hgb 6.8 this am, rechecked at 7.3, will obtain consent for transfusion, hold off on transfusion until seen by Nephro. 10/10 Hgb 10.1, Heme neg. Likely assoc with CKD/ARF 05/22- Hgb remains stable at 8.3 s/p surgery. 05/21- Hgb at 8 today and improved from yesterday. Stool hemoccult was negative. 05/20- Patient came in with low Hgb at about 9 which looking through her records is about baseline for her. She states she has a history of iron deficiency anemia with blood transfusions in the past on oral iron supplementation twice a day. Today her Hgb is 7.7. I ordered a stool hemoccult although given her iron supplementation this may not be accurate. I also ordered a type/screen and a repeat H/H for 1000. she reports no history of hemoptysis but says her stools are dark colored usually because of her iron tablets. She may have had dilutional anemia previously and now it is just more concentrated in her intravascular space while she moves fluid out from her periphery. Will continue to monitor her Hgb, would advise definitive transfusion if it is 7.0 or below. (5) Diastolic CHF Status: Chronic Problem Text: Poor UOP c IV fur-off since 05/20 (6) DM2 (diabetes mellitus, type 2) Status: Chronic Problem Text: 05/24 Levemir increased last night, had been on 8 units, rec 25 units last night. FSBS this AM 385. As outpt, she takes 70 unit Lantus in the morning and 60 in the evening, will cont to titrate her Levemir. On Levemir 25 units before bed, will increase to BID 30 units. 05/23 -- Increased Levemir secondary to her hyperglycemia. She is still on much less than her home dosing. 05/22- Patient is now eating more than she did previously, so far today she has required 18 units of insulin per sliding scale. Will give her 8 units of levemir this evening and see how she does tomorrow. 05/20- Will continue with sliding scale insulin and we will see what her insulin requirements have been over the last 2 days. She has not been requiring any night time insulin and only needed 6 units before meals. Will continue to monitor, but she may not require any basal insulin. 05/19- Patient was hypoglycemic again this morning. Another Amp of D50 was given which brought her levels up. She already received her AM dose of levemir, but I have D/C'd her levemir for now until we are better able to figure out her baseline. We will continue sliding scale insulin. Order placed for HgbA1c. 05/18Overnight patient was on her regular dosing of home insulin and had an episode of hypoglycemia this morning. We are cutting her basal insulin dosing in half and keep her on sliding scale. (7) Physical deconditioning Problem Text: 05/20- PT consulted to evaluate and treat. (8) Hyperlipidemia Status: Chronic Problem Text: Continue with home medications (9) HTN (hypertension) Status: Chronic Problem Text: 05/19- Blood pressures have been okay so far this admission. 05/18-Patient okay to continue with home medications. Plan/VTE VTE Prophylaxis Ordered?: Yes Disposition Weight bearing to be clarified by PT today - COnt PT. Dispo plans depend on response to HD. VS, I&O, 24H, Fishbone Vital Signs/I&O Vital Signs Date Time Temp Pulse Resp B/P (MAP) Pulse Ox O2 Delivery O2 Flow Rate FiO2 05/25/18 08:52 165/94 05/25/18 08:51 75 05/25/18 08:00 97.6 20 100 2.0 05/19/18 06:00 97 I&O- Last 24 Hours up to 6 AM 05/25/18 06:00 Intake Total 720 ml Output Total 550 ml Balance 170 ml Laboratory Data 24H LABS Laboratory Tests 2 05/24/18 11:08: Hepatitis B Surface Antigen NEGATIVE, Hepatitis B Surface Antibody NEGATIVE, Hepatitis B Core IgM Antibody NEGATIVE, Hepatitis C Antibody Index 0.1 05/24/18 11:45: Bedside Glucose (Misc Panel) 266H 05/24/18 17:42: Bedside Glucose (Misc Panel) 240H 05/24/18 20:10: Bedside Glucose (Misc Panel) 210H 05/25/18 04:31: Bedside Glucose (Misc Panel) 157H 05/25/18 04:56: Nucleated Red Blood Cells % (auto) 0.0, Blood Urea Nitrogen 107H, Creatinine 3.30H, Sodium Level 134L, Potassium Level 4.3, Chloride Level 96L, Carbon Dioxide Level 29, Anion Gap 9, Glomerular Filtration Rate 14.9L, Calcium Level 8.1L, Phosphorus Level 4.6, C-Reactive Protein, Quantitative 13.90H, Albumin 1.9L CBC/BMP Laboratory Tests 05/25/18 04:56 Red Blood Count 2.40 L, Mean Corpuscular Volume 97.1 H, Mean Corpuscular Hemoglobin 30.0, Mean Corpuscular Hemoglobin Concent 30.9 L, Red Cell Distrib ution Width 14.1, Anion Gap 9 Microbiology Microbiology 05/19/18 Blood Culture - Final, Complete NO GROWTH AFTER 5 DAYS 05/18/18 Blood Culture - Final, Complete NO GROWTH AFTER 5 DAYS 05/17/18 Blood Culture - Final, Complete Staphylococcus Aureus 05/20/18 Stool Occult Blood ([facility]) - Final, Complete 05/17/18 Urine Culture - Final, Complete 05/17/18 Wound Culture - Final, Complete Staphylococcus Aureus ERI CORDERO PA-C May 25, 2018 10:17
[2018-05-25] MEDS ORDERED: LIDOCAINE 1% SDV 5 ML VIAL SQ ONE (11:45)
[2018-05-25] MEDS ORDERED: HEPARIN 1,000 UNITS/ML 10ML VIAL (FOR RADIOLOGY& DIALYSIS ONLY) XX ONE (11:45)
[2018-05-25] MEDS ORDERED: HEPARIN 1,000 UNITS/ML 10ML VIAL (FOR RADIOLOGY& DIALYSIS ONLY) IV ONE (11:45)
--- NOTE | 2018-05-25 15:18 | ROOPDOC ---
[facility] Report Of Operation Report of Operation DATE OF PROCEDURE: 05/25/2018 PREPROCEDURE DIAGNOSES: End-stage renal disease requiring access for renal replacement therapy. POSTPROCEDURE DIAGNOSES: End-stage renal disease requiring access for renal replacement therapy. PROCEDURE: Ultrasound guided right external jugular vein cannulation. Fluoroscopic guided right external jugular vein 19 cm tip to cuff tunneled central venous catheter insertion. ATTENDING SURGEON: DR. Leeanna Matthews M.D. HEAT TREATER APPRENTICE: Alma Brown INDICATION:Patient is an 67-year-old female who has renal failure who requires access for renal replacement therapy. Patient will undergo ultrasound and fluoroscopic guided placement of a right external jugular vein tunneled central venous catheter. The procedure was described and explained to the patient in detail including drawing of pictures demonstrating the procedure and anatomy. Risks, benefits and alternative treatment options were discussed with the patient. Alternative treatment options included but were not limited to no intervention. Benefits included but were not limited to access for hemodialysis until permanent access for renal replacement therapy is created. Risks included, but were not limited to infection, bleeding, pneumothorax, hemothorax, cannulation site deep venous thrombosis, possible need for open surgical int ervention, allergic reaction or complication from prepping and draping materials, possible need for transfusion of blood products, anesthetic complications, cerebrovascular accident, myocardial infarction, pulmonary embolus, deep venous thrombosis, loss of limb, loss of life, poor satisfaction and poor outcome. Risks of not performing the procedure included but were not limited to inability to obtain renal replacement therapy via hemodialysis and . The patient's questions were answered. The patient voices understanding of these risks, benefits and alternative treatment options. The patient voices acceptance of the risks associated with the procedure and agrees to proceed with an ultrasound and fluoroscopic guided right external jugular vein tunneled central venous catheter insertion. There were no promises or guarantees made to the patient regarding the outcome or results of the procedure. ANESTHESIA: Local with 20 mL of 2% lidocaine mixed with 0.5% Marcaine. EBL: 10 ml. IVF: 100 ml. FLUORO TIME: 0.5 minutes. CONTRAST: None. COMPLICATIONS: None. DRAINS: None. SPECIMENS: None. IMPLANTS: Right internal jugular vein tunneled central venous catheter with use of a 19 cm tip to cuff Bard Glide[employer] hemodialysis catheter. DESCRIPTION OF PROCEDURE: Patient was taken to the angiography suite, placed supine on the angiography room table and then prepped and draped in a standard surgical fashion. A timeout was conducted by myself and the team members in the room confirming the correct patient, procedure and laterality. Ultrasound was used to evaluate the right internal jugular vein which was noted to be absent. Ultrasound was used to evaluate the right external jugular vein which was noted to be widely patent, easily compressible and free of thrombus. Ultrasound guidance was used to cannulate the right external jugular vein using a micropuncture needle after anesthetizing the overlying skin and subcutaneous tissue with 2% lidocaine mixed with 0.5% Marcaine. The cannulation of the right internal jugular vein was performed with real-time concurrent visualization of the entry of the micropuncture needle into the right external jugular vein with a hardcopy image preserved. The ultrasound showed the right external jugular vein to be widely patent, easily compressible and free of thrombus. The micropuncture wire was advanced through the micropuncture needle which was upsized to a micropuncture sheath. An Amplatz wire was advanced through the micropuncture sheath which was then used to sequentially dilate the right external jugular vein under fluoroscopic guidance. An introducer sheath was then placed over the Amplatz wire and the wire was removed. The catheter was tunneled through a puncture wound in the right chest after anesthetizing the overlying skin and subcutaneous tissue with 2% lidocaine mixed with 0.5% Marcaine and brought out through a puncture wound at the right external jugular vein entry site. The catheter was then advanced through the introducer sheath which had been positioned under fluoroscopic guidance. The catheter was positioned under fluoroscopic guidance with the tip in the superior vena cava right atrial junction. Both ports of the catheter were aspirated, noted to aspirate easily and then flushed with heparinized saline. The catheter was secured to the right anterior chest wall using #2-0 Prolene suture after anesthetizing the overlying skin and subcutaneous tissue with 2% lidocaine mixed with 0.5% Marcaine. The puncture wound in the right neck was closed using #4-0 Monocryl in inverted interrupted fashion. Dressings were applied. The patient tolerated the procedure well. All instrument, sponge and needle counts were correct at the end of the case. There were no complications. Dr. Matthews was present for and directed the entire case. Patient was transferred to the recovery area and subsequently to the hemodialysis in stable condition. The tunneled central venous catheter is stable for use for hemodialysis access. The procedure and results were discussed with the patient in the postoperative holding area. All of her questions were answered. RADIOLOGIC SUPERVISION AND INTERPRETATION: The initial ultrasound showed the right internal jugular vein to be absent with the right external jugular vein being easily compressible, widely patent and free of thrombus. Ultrasound was used to guide cannulation of the right external jugular vein with real-time concurrent visualization of the entry of the needle into the right external jugular vein with a hardcopy image preserved. Fluoroscopic guidance was then used to sequentially dilate the right external jugular vein, place and introducer sheath and position the catheter with the tip in the superior vena cava/right atrial junction. Final fluoroscopic image showed the catheter to be in good position and good alignment with no pneumo- or hemothorax noted with the tip in the superior vena cava/right atrial junction. The tunneled central venous catheter is stable for use for hemodialysis access. Roscoe Matthews MD May 25, 2018 15:18
--- NOTE | 2018-05-25 15:43 | IPN ---
DATE: 05/25/2018 Mrs. Narayan was seen yesterday in consultation for renal failure, uremic symptoms, severe anemia and some congestive heart failure. We had decided about dialysis and she did have a Perma-Cath placed this morning. She has known history of advanced stage IV of chronic kidney disease and has been in the process of preparing for starting dialysis. She had arteriovenous (AV) fistula created in both arms. However, it did not develop. Plan was to get an AV graft placed when dialysis becomes imminent. She is now admitted with infected left foot wound and developed acute renal failure and hypervolemia. Her kidney function worsened to the point that she has developed uremic symptoms. She already had a Perma-Cath placed and will be dialyzed this afternoon. PHYSICAL EXAMINATION: Temperature 97.6 degrees Fahrenheit, heart rate 76 per minute and respiratory rate 20 per minute. Blood pressure 165/94 mmHg and oxygen saturation 100% on two liters oxygen. Intake and output records from yesterday show a total intake 770 and output 1050 mL. Head is atraumatic. Neck veins are prominent. She has a new Perma-Cath in right internal jugular vein. Heart sounds are regular. Lungs with diminished breath sounds. Abdomen is obese, soft and nontender. Extremities are without cyanosis or clubbing. Left foot wrapped in dressing. Multiple toes are surgically absent on both feet. She does have lower extremity edema. Neurologically, she is awake, alert and at her baseline mentation. LABORATORY DATA: Today's laboratories show WBC count 16.3, hemoglobin 7.2 and hematocrit 23.3. Platelets 247. Sodium 134, potassium 4.3, CO2 29, BUN 107 and creatinine 3.30. Calcium 8.1 and phosphorus 4.6. PROBLEMS: 1. Acute renal failure superimposed on chronic kidney disease. The patient has advanced chronic kidney disease at baseline. She has developed uremic symptoms and will be dialyzed. In fact, she is already in dialysis room now. Our plan is to dialyze her for three hours today. 2. Congestive heart failure. Volume status is decompensated and we are planning to remove two liters of fluid. It remains to be seen how she tolerates it. 3. Anemia. She has worsening of anemia and will be given two units of packed red blood cells (RBCs) during dialysis today. 4. Infected wound, left foot and cellulitis. The patient is afebrile and remains on antibiotics. Her white blood cell (WBC) count did go up to 16.3 today. We will watch and continue with antibiotic therapy. 5. Hyperparathyroidism. She has been on calcitriol 0.25 mcg daily at home and I will continue it for now. We will recheck her intact parathyroid hormone (PTH) level in a few days and consider to stop her calcitriol if needed.
[2018-05-25 17:07] VITALS: BP 175/83
[2018-05-25 20:00] VITALS: BP 170/78
[2018-05-25] MEDS: ASPIRIN 81 MG ENTERIC TAB PO SCH (21:18)
[2018-05-25] MEDS: ATORVASTATIN 20 MG TAB PO SCH (21:19)
--- NOTE | 2018-05-25 23:24 | IPN ---
DATE: 05/17/2018 Norma was seen during dialysis. She had no complaints except that she was anxious to go to her room to rest as she had a long day. She had a hemodialysis catheter placed and then went to dialysis. She has mild shortness of breath. No fever, chills, night sweats. No nausea, vomiting or diarrhea. She had a unilateral lower extremity arterial Doppler which showed moderate to significant stenosis in mid and distal superficial femoral artery and distal posterior tibial artery on the left side. PHYSICAL EXAMINATION: Temperature is 97.3, pulse 86, respirations 20, blood pressure 170/78, O2 sat 100% on 2 liters nasal cannula. Heart: Normal S1, S2. No murmurs, rubs or gallops. Lungs are clear except diminished at the bases. Abdomen: Morbidly obese, soft, nontender. Extremities: Trace edema. Left foot has an incision from the mid foot all the way to the lateral malleolus. The wound is deep measuring about 2 cm depth. There is no purulent discharge. Tendons are exposed. LABORATORY DATA: White count 16.3, hemoglobin 7.2, hematocrit 23.3, platelets 247. The patient received two blood transfusions today. Sodium 134, potassium 4.3, chloride 96, bicarbonate 29, BUN 107, creatinine 3.3, glucose 147, calcium 8.1, phosphorus 4.6, C-reactive protein (CRP) 13.9, albumin 1.9. IMPRESSION: 1. Complicated skin and soft tissue infection due to methicillin-sensitive Staphylococcus aureus (MSSA) with an abscess along the common peroneal tendon sheath. The patient doing better on intravenous (IV) Kefzol. One gram every 12 hours. 2. Acute kidney injury on chronic kidney disease. The patient received dialysis today. 3. Anemia. The patient received 2 units of packed red blood cells today. 4. Peripheral vascular disease. Dr. Matthews has been consulted. PLAN: Continue IV cefazolin. The patient is slowly improving. Would continue with IV antibiotics for now.
[2018-05-26] VITALS: BP 168/60
[2018-05-26 04:00] VITALS: BP 158/68
[2018-05-26 05:42] LABS: ALBUMIN 1.8 GM/DL (3.2-5.2); CALCIUM LEVEL 8.2 MG/DL (8.8-10.2); CREATININE FOR GFR 1.82 MG/DL (0.55-1.30); GLOMERULAR FILTRATION RATE 29.7 (>45); PHOSPHORUS LEVEL 3.5 MG/DL (2.5-4.9); POTASSIUM SERUM 4.6 MEQ/L (3.5-5.1)
[2018-05-26] MEDS: ceFAZolin SOD 1 GM in D5W MINI-BAG PLUS 50 ML IV SCH ×2 (06:27→17:32)
[2018-05-26] MEDS: SLF 3 ML SYR IV SCH ×3 (06:28→20:58)
[2018-05-26] MEDS: HEPARIN SOD (PORCINE) 5000 UNITS/ML VIAL SC SCH ×3 (06:28→20:58)
[2018-05-26 07:47] VITALS: BP 154/68
[2018-05-26] MEDS: SPIRONOLACTONE 25 MG TAB PO SCH (08:12)
[2018-05-26] MEDS: HumaLOG INSULIN (NovoLOG) PER UNIT SC SCH ×4 (08:12→21:00)
[2018-05-26] MEDS: ISOSORBIDE MON. (IMDUR) 30 MG XR TAB PO SCH (08:13)
[2018-05-26] MEDS: PARoxetine 20 MG TAB PO SCH (08:13)
[2018-05-26] MEDS: FERROUS SULFATE 325MG TAB PO SCH ×2 (08:13→20:57)
[2018-05-26] MEDS: CALCITRIOL 0.25 MCG CAP (S0169) PO SCH (08:13)
[2018-05-26] MEDS: GABAPENTIN 300 MG CAP PO SCH ×2 (08:13→20:57)
[2018-05-26] MEDS: CARVedilol 12.5 MG TAB PO SCH ×2 (08:14→20:58)
[2018-05-26] MEDS: MAGNESIUM OXIDE 400 MG TAB (MAG-OX) PO SCH (08:14)
[2018-05-26] MEDS: LEVEMIR (INSULIN DETEMIR) 1 UNITS/0.01ML SC SCH ×2 (08:15→21:00)
--- NOTE | 2018-05-26 09:50 | IPNPDOC ---
Subjective Date Seen The patient was seen on 05/26/18. Subjective Chief Complaint/HPI Feels tired and a little depressed about having to start dialysis Constitutional: Denies: Chills, Fever Pulmonary: Denies: Dyspnea, Cough Cardiovascular: Denies: Chest Pain, Palpitations Gastrointestinal: Denies: Nausea, Vomiting, Abdominal Pain, Diarrhea, C onstipation Objective Physical Examination General Exam: Positive: Alert, Cooperative, No Acute Distress Chest Exam: Positive: Clear to auscultation, Diminished (2/2 to body habitus); Negative: Wheezing Heart Exam: Positive: Rate Normal, Normal S1, Normal S2; Negative: Gallops, Murmurs, Rubs Abdomen Exam: Positive: Normal bowel sounds, Soft (obese abdomen); Negative: Tenderness Extremity Exam: Positive: Edema (1+ pitting edema in bilateral lower extremitie s) Psych Exam: Positive: Mental status NL Assessment /Plan Problems (1) Diabetic foot infection Status: Acute Problem Text: 05/26 - Complicated skin and soft tissue infection due to methicillin-sensitive Staphylococcus aureus (MSSA) with an abscess along the common peroneal tendon Sheath S/P exploration and packing by Dr. Mitchell 05/21 - Wound care ordered by Dr. Mitchell. He is on vacation now. Dr. Thornton covering who gave weight bearing ordered yesterday for PT On Cefazolin IV per Dr. Rodríguez (2) Acute renal failure superimposed on chronic kidney disease Problem Text: [facility] - Dialysis catheter placed yesterday and underwent First Dialysis session yesterday 05/25 (3) Diastolic CHF Status: Chronic Problem Text: 05/25 - 2 Liters Fluid removed in dialysis yesterday (4) UTI (urinary tract infection) Status: Resolved Problem Text: UA positive, cultures were neg - treated with Zosyn initially (5) DM2 (diabetes mellitus, type 2) Status: Chronic Problem Text: 05/18Overnight patient was on her regular dosing of home insulin and had an episode of hypoglycemia this morning. We are cutting her basal insulin dosing in half and keep her on sliding scale. (6) Hyperlipidemia Status: Chronic Problem Text: Continue with home medications - Lipitor (7) HTN (hypertension) Status: Chronic Problem Text: 05/25 - Remains on Spironolactone and Imdur and Coreg (8) Anemia in chronic kidney disease Status: Acute Problem Text: Transfused 2 units PRBC 05/25 - defer Aricept to Nephrology Hgb remains low but improved Heme neg stool 05/20 Iron studies not collected before transfusion Check B12/Folate due to macrocytosis (9) Diabetes type 2, uncontrolled Problem Text: Blood sugars running 200s on SSI. (HD Lantus 60 units daily, but became hypoglycemic on Lantus on admission) Currently on Levemir 25 BID I will increase am dose slightly Plan/VTE VTE Prophylaxis Ordered?: Yes (SQ heparin) VS, I&O, 24H, Fishbone Vital Signs/I&O Vital Signs Date Time Temp Pulse Resp B/P (MAP) Pulse Ox O2 Delivery O2 Flow Rate FiO2 05/26/18 08:14 72 154/68 05/26/18 07:47 98.8 18 96 2.0 I&O- Last 24 Hours up to 6 AM 05/26/18 06:00 Intake Total 0 ml Output Total 3300 ml Balance -3300 ml Laboratory Data 24H LABS Laboratory Tests 2 05/25/18 17:14: Bedside Glucose (Misc Panel) 173H 05/25/18 21:17: Bedside Glucose (Misc Panel) 259H 05/26/18 04:51: Blood Urea Nitrogen 57H, Creatinine 1.82H, Sodium Level 136, Potassium Level 4.6, Chloride Level 101, Carbon Dioxide Level 29, Anion Gap 6L, Glomerular Filtration Rate 29.7L, Calcium Level 8.2L, Phosphorus Level 3.5#, C-Reactive Protein, Quantitative 15.00H, Albumin 1.8L CBC/BMP Laboratory Tests 05/26/18 04:51 Anion Gap 6 L Microbiology Microbiology 05/19/18 Blood Culture - Final, Complete NO GROWTH AFTER 5 DAYS 05/18/18 Blood Culture - Final, Complete NO GROWTH AFTER 5 DAYS 05/17/18 Blood Culture - Final, Complete Staphylococcus Aureus 05/20/18 Stool Occult Blood ([facility]CO) - Final, Complete 05/17/18 Urine Culture - Final, Complete 05/17/18 Wound Culture - Final, Complete Staphylococcus Aureus ERI CORDERO PA-C May 26, 2018 09:50
[2018-05-26 10:23] LABS: HEMATOCRIT 26.3 % (36.0-47.0); HEMOGLOBIN 8.4 g/dl (12.0-15.5); MEAN CORPUSCULAR HEMOGLOBIN 29.6 pg (27.0-33.0); MEAN CORPUSCULAR HGB CONC 31.9 g/dl (32.0-36.5); MEAN CORPUSCULAR VOLUME 92.6 fl (80.0-96.0); PLATELET COUNT, AUTOMATED 220 10^3/uL (150-450); RED BLOOD COUNT 2.84 10^6/uL (4.00-5.40); WHITE BLOOD COUNT 15.4 10^3/uL (4.0-10.0)
[2018-05-26 12:00] VITALS: BP 156/64
--- NOTE | 2018-05-26 12:46 | IPN ---
DATE: 05/26/2017 Mrs. Narayan is seen this morning on her bedside. She was sleeping and I woke her up. She is feeling slightly better compared to yesterday but not any significantly better. She denies any nausea, vomiting, dyspnea or chest pain. She underwent her first hemodialysis yesterday and we were able to take off two liters of fluid. She was also transfused with two units of packed red blood cells (RBCs). PHYSICAL EXAMINATION: Temperature 98.8 degrees Fahrenheit, heart rate 70 per minute and respiratory rate 18 per minute. Blood pressure 154/68 mmHg and oxygen saturation 96% on two liters of oxygen. Her neck veins are moderately distended. Heart sounds regular. Lungs with slightly diminished breath sounds at bases. Abdomen is soft and nontender and bowel sounds present. Extremities without any cyanosis or clubbing. Her recorded weight today is 126.5 kg and she was 130.9 kg on 05/24/2018. LABORATORY DATA: Today's laboratories show WBC count 15.4, hemoglobin 8.4 and hematocrit 26.3. Sodium 136, potassium 4.6, CO2 29, BUN 57 and creatinine 1.82. Glucose 246. PROBLEMS: 1. Acute renal failure superimposed on chronic kidney disease. The patient has advanced chronic kidney disease at baseline. We felt that she has been reached end-stage renal disease and she was dialyzed yesterday due to uremic symptoms. Her blood urea nitrogen (BUN) and creatinine have improved significantly. 2. Hyponatremia. Her hyponatremia has also corrected with dialysis and she should follow fluid restriction of 1500 mL per day. 3. Congestive heart failure/hypervolemia. Two liters of fluid was removed yesterday with dialysis which she tolerated well. We will try to remove another 1-1.5 liters of fluid with dialysis next time. 4. Anemia. Most likely her anemia is multifactorial. She did receive two units of packed red blood cells (RBCs). However, her anemia has improved only moderately. She is probably going to need gastrointestinal (GI) workup for blood loss. 5. Hypertension. Blood pressure seems reasonably well-controlled on current antihypertensive medications and no changes are being made today.
[2018-05-26 16:00] VITALS: BP 158/54
[2018-05-26] MEDS: ONDANSETRON 4MG/2ML VIAL (J2405) IV PRN ×2 (17:43→20:58)
[2018-05-26 20:00] VITALS: BP 152/74
[2018-05-26] MEDS: ASPIRIN 81 MG ENTERIC TAB PO SCH (20:57)
[2018-05-26] MEDS: ATORVASTATIN 20 MG TAB PO SCH (20:57)
[2018-05-27] VITALS: BP 145/73
[2018-05-27 04:00] VITALS: BP 166/73
[2018-05-27] MEDS: ceFAZolin SOD 1 GM in D5W MINI-BAG PLUS 50 ML IV SCH ×2 (05:35→18:29)
[2018-05-27] MEDS: HEPARIN SOD (PORCINE) 5000 UNITS/ML VIAL SC SCH ×3 (05:36→22:01)
[2018-05-27] MEDS: SLF 3 ML SYR IV SCH ×3 (05:36→22:03)
[2018-05-27 05:41] LABS: HEMATOCRIT 27.3 % (36.0-47.0); HEMOGLOBIN 8.5 g/dl (12.0-15.5); MEAN CORPUSCULAR HEMOGLOBIN 29.7 pg (27.0-33.0); MEAN CORPUSCULAR HGB CONC 31.1 g/dl (32.0-36.5); MEAN CORPUSCULAR VOLUME 95.5 fl (80.0-96.0); PLATELET COUNT, AUTOMATED 222 10^3/uL (150-450); RED BLOOD COUNT 2.86 10^6/uL (4.00-5.40); WHITE BLOOD COUNT 14.2 10^3/uL (4.0-10.0)
[2018-05-27 06:01] LABS: ALBUMIN 1.8 GM/DL (3.2-5.2); CALCIUM LEVEL 8.4 MG/DL (8.8-10.2); CREATININE FOR GFR 1.88 MG/DL (0.55-1.30); GLOMERULAR FILTRATION RATE 28.6 (>45); PHOSPHORUS LEVEL 3.8 MG/DL (2.5-4.9)
[2018-05-27] MEDS ORDERED: ISOVUE-370 76% 100ML VIAL (Q9967) As Ordered ONE (06:32)
[2018-05-27] MEDS ORDERED: BUPIVACAINE HCL 0.5% 10 ML VIAL As Ordered ONE (06:32)
[2018-05-27] MEDS ORDERED: diphenhydrAMINE INJ 50MG/ML VIAL (J1200) As Ordered ONE (06:32)
[2018-05-27] MEDS ORDERED: HEPARIN 1,000 UNITS/ML 10ML VIAL (FOR RADIOLOGY& DIALYSIS ONLY) As Ordered ONE (06:33)
[2018-05-27] MEDS ORDERED: ISOVUE-300 61% 100ML VIAL (Q9967) As Ordered ONE (06:33)
[2018-05-27] MEDS ORDERED: LIDOCAINE 2% MDV 20 ML VIAL As Ordered ONE (06:33)
[2018-05-27] MEDS: ONDANSETRON 4MG/2ML VIAL (J2405) IV PRN ×2 (06:52→22:01)
[2018-05-27] MEDS: CALCITRIOL 0.25 MCG CAP (S0169) PO SCH (06:52)
[2018-05-27] MEDS: PARoxetine 20 MG TAB PO SCH (06:53)
[2018-05-27] MEDS: CARVedilol 12.5 MG TAB PO SCH ×2 (06:53→22:02)
[2018-05-27] MEDS: HumaLOG INSULIN (NovoLOG) PER UNIT SC SCH ×4 (07:30→21:00)
[2018-05-27 08:00] VITALS: BP 138/60
[2018-05-27] MEDS ORDERED: LEVEMIR (INSULIN DETEMIR) 1 UNITS/0.01ML SC SCH (09:00)
[2018-05-27] MEDS: FERROUS SULFATE 325MG TAB PO SCH ×2 (09:00→22:02)
[2018-05-27] MEDS ORDERED: HEPARIN 1,000 UNITS/ML 10ML VIAL (FOR RADIOLOGY& DIALYSIS ONLY) IV ONE (09:45)
[2018-05-27] MEDS ORDERED: HEPARIN 1,000 UNITS/ML 10ML VIAL (FOR RADIOLOGY& DIALYSIS ONLY) XX ONE (09:45)
[2018-05-27] MEDS ORDERED: DARBEPOETIN 100 MCG/0.5 ML *DIALYSIS* SYRINGE (J0882) IV SCH (10:30)
--- NOTE | 2018-05-27 10:37 | IPN ---
DATE OF VISIT: 05/27/2018 Mrs. Narayan is seen this morning on her bedside. She feels nauseated and not eating well. She denies any fever, chills, dyspnea or chest pain. On physical exam, temperature 98.5 degrees Fahrenheit, heart rate 74 per minute and respiratory rate 18 per minute. Blood pressure 138/60 mmHg and oxygen saturation 97%. Intake and output records from yesterday are probably incomplete. Her intake is recorded a 650 and output 840 mL. Her weight is 126.9 kg. Head is atraumatic. Neck is supple and jugular venous distention (JVD) is moderately elevated. Heart sounds are regular and lungs with slightly diminished breath sounds and few basilar rales. Abdomen obese, soft and nontender. Bowel sounds are normal. Extremities have no cyanosis or clubbing. Bilateral lower extremity edema is 1+. Left foot is wrapped in dressing. Neurologically, she is awake, alert and oriented times three. Today's labs show WBC count 14.2, hemoglobin 8.5 and hematocrit 27.3. Platelets 222. Sodium 136, potassium 4.0, CO2 29, BUN 53 and creatinine 1.88. Glucose 145 and calcium 8.4. PROBLEMS: 1. Acute renal failure superimposed on chronic kidney disease. Patient did have dialysis on 05/25/2018. We will plan to dialyze her again today. I am not sure if her nausea is related to kidney disease or a combination of medications and kidney problems. Remains to be seen if she improves after dialysis. 2. Congestive heart failure. Her volume status is only slightly decompensated. We will try to remove another 1-1.5 liters fluid with dialysis today and see how she does. 3. Anemia. She received 2 units of packed red blood cells (RBCs) on 05/25/2018. Her anemia improved but only slightly. We will start her on Aranesp 200 mcg with each weekly dialysis treatment. 4. Secondary hyperparathyroidism. She has been on calcitriol 0.25 mcg daily. We will check her intact parathyroid hormone (PTH) level.
[2018-05-27 12:00] VITALS: BP 162/58
[2018-05-27 16:00] VITALS: BP 170/60
[2018-05-27] MEDS: MAGNESIUM OXIDE 400 MG TAB (MAG-OX) PO SCH (16:23)
[2018-05-27] MEDS: GABAPENTIN 300 MG CAP PO SCH ×2 (16:23→22:01)
[2018-05-27] MEDS: ISOSORBIDE MON. (IMDUR) 30 MG XR TAB PO SCH (16:24)
[2018-05-27] MEDS: SPIRONOLACTONE 25 MG TAB PO SCH (16:24)
--- NOTE | 2018-05-27 17:27 | IPNPDOC ---
Subjective Date Seen The patient was seen on 05/27/18. Subjective Chief Complaint/HPI Still feels "yucky" NO SOB Constitutional: Denies: Chills, Fever Pulmonary: Denies: Dyspnea, Cough Cardiovascular: Denies: Chest Pain, Palpitations, Orthopnea Gastrointestinal: Denies: Nausea, Vomiting, Abdominal Pain, Diarrhea, Constipation Objective Physical Examination General Exam: Positive: Alert, Cooperative, No Acute Distress Chest Exam: Positive: Clear to auscultation, Diminished (2/2 to body habitus); Negative: Wheezing Heart Exam: Positive: Rate Normal, Normal S1, Normal S2; Negative: Gallops, Murmurs, Rubs Abdomen Exam: Positive: Normal bowel sounds, Soft (obese abdomen); Negative: Tenderness Extremity Exam: Positive: Edema (1+ pitting edema in bilateral lower extremities) Psych Exam: Positive: Mental status NL Assessment /Plan Problems (1) Diabetic foot infection Status: Acute Problem Text: 05/27 - Complicated skin and soft tissue infection due to methicillin-sensitive Staphylococcus aureus (MSSA) with an abscess along the common peroneal tendon Sheath S/P exploration and packing by Dr. Mitchell 05/21 - Wound care ordered by Dr. Mitchell. He is on vacation now. Dr. Thornton covering who gave weight bearing ordered yesterday for PT On Cefazolin IV per Dr. Rodríguez (2) Acute renal failure superimposed on chronic kidney disease Problem Text: 05/27 - [facility] - Dialysis catheter placed 05/25 and underwent First Dialysis sessiony 05/25, Second 05/27, third will be 05/29 then can arrange outpatient dialysis (3) Diastolic CHF Status: Chronic Problem Text: 05/25 - 2 Liters Fluid removed in dialysis yesterday (4) UTI (urinary tract infection) Status: Resolved Problem Text: UA positive, cultures were neg - treated with Zosyn initially (5) DM2 (diabetes mellitus, type 2) Status: Chronic Problem Text: 05/18Overnight patient was on her regular dosing of home insulin and had an episode of hypoglycemia this morning. We are cutting her basal insulin dosing in half and keep her on sliding scale. (6) Hyperlipidemia Status: Chronic Problem Text: Continue with home medications - Lipitor (7) HTN (hypertension) Status: Chronic Problem Text: 05/25 - Remains on Spironolactone and Imdur and Coreg (8) Anemia in chronic kidney disease Status: Acute Problem Text: Transfused 2 units PRBC 05/25 - defer Aranesp to Nephrology - Dose given 05/27/ Hgb remains low but improved Heme neg stool 05/20 Iron studies not collected before transfusion Check B12/Folate due to macrocytosis (9) Diabetes type 2, uncontrolled Problem Text: Blood sugars running 200s on SSI. (HD Lantus 60 units daily, but became hypoglycemic on Lantus on admission) Currently on Levemir 25 BID I will increase am dose slightly Plan/VTE VTE Prophylaxis Ordered?: Yes (SQ heparin) VS, I&O, 24H, Fishbone Vital Signs/I&O Vital Signs Date Time Temp Pulse Resp B/P (MAP) Pulse Ox O2 Delivery O2 Flow Rate FiO2 05/27/18 16:24 170/60 05/27/18 16:00 98.5 69 16 97 05/27/18 04:00 0.0 I&O- Last 24 Hours up to 6 AM 05/27/18 06:00 Intake Total 1010 ml Output Total 740 ml Balance 270 ml Laboratory Data 24H LABS Laboratory Tests 2 05/26/18 21:04: Bedside Glucose (Misc Panel) 178H 05/27/18 04:45: Nucleated Red Blood Cells % (auto) 0.0, Blood Urea Nitrogen 53H, Creatinine 1.88H, Sodium Level 136, Potassium Level 4.0, Chloride Level 102, Carbon Dioxide Level 29, Anion Gap 5L, Glomerular Filtration Rate 28.6L, Calcium Level 8.4L, Phosphorus Level 3.8, Albumin 1.8L 05/27/18 11:50: Bedside Glucose (Misc Panel) 202H CBC/BMP Laboratory Tests 05/27/18 04:45 Red Blood Count 2.86 L, Mean Corpuscular Volume 95.5, Mean Corpuscular Hemoglobin 29.7, Mean Corpuscular Hemoglobin Concent 31.1 L, Red Cell Distribution Width 14.9 H, Anion Gap 5 L Microbiology Microbiology 05/19/18 Blood Culture - Final, Complete NO GROWTH AFTER 5 DAYS 05/18/18 Blood Culture - Final, Complete NO GROWTH AFTER 5 DAYS 05/17/18 Blood Culture - Final, Complete Staphylococcus Aureus 05/20/18 Stool Occult Blood ([facility]CO) - Final, Complete 05/17/18 Urine Culture - Final, Complete 05/17/18 Wound Culture - Final, Complete Staphylococcus Aureus ERI CORDERO PA-C May 27, 2018 17:27
--- NOTE | 2018-05-27 18:34 | IPN ---
DATE: 05/27/2018 Norma complains of being nauseous today. She had dialysis again today. No chest pain or shortness of breath. No vomiting or diarrhea. She has pain in her foot. She is not anxious to go home yet. She does not feel she is ready. LABORATORY DATA: White count 14.2, hemoglobin 8.5, hematocrit 27.3, platelets 222. Sodium 136, potassium 4, chloride 102, bicarb 25, BUN 53, creatinine 1.8, glucose 145, calcium 8.4, phosphorus 3.8, CRP is 15. PHYSICAL EXAMINATION: Temperature is 98.5, pulse 69, respirations 16, blood pressure 170/60, O2 sat 97% on room air. Heart: Normal S1-S2 distant. Lungs: Diminished breath sounds at the bases but clear. Abdomen: Obese, soft, nontender. Extremities, I did not uncover the left leg as it was just changed earlier today. 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 Open wound slightly tender to touch. IMPRESSION: 1. Complicated skin and soft tissue infection with deep tendon abscess MSSA on IV cefazolin 1 gram every 12 hours. The patient will remain on IV antibiotics. Hopefully will be able to close that wound after Dr. Anand comes back from vacation. In the meantime, I would not recommend her discharge yet. Her white count is still increased and CRP still elevated. 2. Acute renal failure with superimposed chronic kidney disease. The patient has been on dialysis for the past for two sessions. Shortness of breath is markedly improved. PLAN: Continue IV cefazolin 1 grams every [address] Calixto upon his return whether closure of the wound would be an option.
[2018-05-27 20:00] VITALS: BP 166/74
[2018-05-27] MEDS: ATORVASTATIN 20 MG TAB PO SCH (22:02)
[2018-05-27] MEDS: ASPIRIN 81 MG ENTERIC TAB PO SCH (22:02)
[2018-05-27] MEDS: LEVEMIR (INSULIN DETEMIR) 1 UNITS/0.01ML SC SCH (22:03)
[2018-05-28] VITALS (9 sets, daily range): BP systolic 136–158; BP diastolic 54–70
[2018-05-28 05:33] LABS: HEMATOCRIT 29.6 % (36.0-47.0); MEAN CORPUSCULAR HEMOGLOBIN 29.7 pg (27.0-33.0); MEAN CORPUSCULAR HGB CONC 30.4 g/dl (32.0-36.5); MEAN CORPUSCULAR VOLUME 97.7 fl (80.0-96.0); PLATELET COUNT, AUTOMATED 244 10^3/uL (150-450); RED BLOOD COUNT 3.03 10^6/uL (4.00-5.40); WHITE BLOOD COUNT 14.4 10^3/uL (4.0-10.0)
[2018-05-28] MEDS: ceFAZolin SOD 1 GM in D5W MINI-BAG PLUS 50 ML IV SCH ×2 (05:36→17:31)
[2018-05-28] MEDS: SLF 3 ML SYR IV SCH ×3 (05:36→21:17)
[2018-05-28] MEDS: HEPARIN SOD (PORCINE) 5000 UNITS/ML VIAL SC SCH ×3 (05:36→21:17)
[2018-05-28 06:00] LABS: ALBUMIN 1.9 GM/DL (3.2-5.2); CALCIUM LEVEL 8.7 MG/DL (8.8-10.2); CREATININE FOR GFR 2.05 MG/DL (0.55-1.30); GLOMERULAR FILTRATION RATE 25.9 (>45); PHOSPHORUS LEVEL 4.2 MG/DL (2.5-4.9); POTASSIUM SERUM 4.8 MEQ/L (3.5-5.1)
[2018-05-28] MEDS: ONDANSETRON 4MG/2ML VIAL (J2405) IV PRN ×2 (08:42→16:59)
[2018-05-28] MEDS: HumaLOG INSULIN (NovoLOG) PER UNIT SC SCH ×4 (08:43→20:43)
[2018-05-28] MEDS: PARoxetine 20 MG TAB PO SCH (08:43)
[2018-05-28] MEDS: GABAPENTIN 300 MG CAP PO SCH ×2 (08:43→20:44)
[2018-05-28] MEDS: ISOSORBIDE MON. (IMDUR) 30 MG XR TAB PO SCH (08:43)
[2018-05-28] MEDS: SPIRONOLACTONE 25 MG TAB PO SCH (08:43)
[2018-05-28] MEDS: CARVedilol 12.5 MG TAB PO SCH ×2 (08:43→20:44)
[2018-05-28] MEDS: LEVEMIR (INSULIN DETEMIR) 1 UNITS/0.01ML SC SCH ×2 (09:00→20:43)
--- NOTE | 2018-05-28 09:14 | IPNPDOC ---
Subjective Date Seen The patient was seen on 05/28/18. Subjective Chief Complaint/HPI Continues to c/o nausea. No abd pain. Normal BMs Pulmonary: Denies: Dyspnea, Cough Cardiovascular: Denies: Chest Pain, Palpitations Gastrointestinal: Reports: Nausea; Denies: Vomiting, Abdominal Pain, Diarrhea, Constipation Objective Physical Examination General Exam: Positive: Alert, Cooperative, No Acute Distress Chest Exam: Positive: Clear to auscultation, Rales (bilateral lower lobe crackles), Diminished (2/2 to body habitus); Negative: Wheezing Heart Exam: Positive: Rate Normal, Normal S1, Normal S2; Negative: Gallops, Murmurs, Rubs Abdomen Exam: Positive: Normal bowel sounds, Soft (obese abdomen); Negative: Tenderness Extremity Exam: Positive: Normal pulses, Other (Left lateral foot bandaging removed at bedside shows approximately 12 cm longitudinal wound without purulent drainage extending up toward fibular tendon sheath. ); Negative: Cyanosis, Edema Neuro Exam: Positive: Normal Speech Psych Exam: Positive: Mental status NL, Mood NL Assessment /Plan Problems (1) Nausea Status: Chronic Problem Text: this has been present throughout admission - thought to be related to uremia, but has not improved with dialysis. May be med related. I have stopped her iron supplement for now. Perhaps there are other meds/supplements that could be held as well PPI started last pm (2) Diabetic foot infection Status: Acute Problem Text: C10 cefazolin (per ID) Complicated skin and soft tissue infection due to methicillin-sensitive Staphylococcus aureus (MSSA) with an abscess along the common peroneal tendon Sheath defer dc home until wound reassessed by Podiatry 05/28 AF, but WBC 14.4 S/P exploration and packing by Dr. Calixto05/21 (3) Acute renal failure superimposed on chronic kidney disease Problem Text: 05/28 - Per Nephrology - Dialysis catheter placed 05/25 and underwent First Dialysis session 05/25, Second 05/27, third will be 05/29 then can arrange outpa tient dialysis\ 05/28/18 B renal arteriogram (4) Diastolic CHF Status: Chronic Problem Text: Euvolemic sp HD (5) DM2 (diabetes mellitus, type 2) Status: Chronic Problem Text: 05/28 - Patient refused am Levemir yesterday - not eating much due to nausea Cut back slightly and monitor trend (change to 20 am/25 pm) (6) UTI (urinary tract infection) Status: Resolved Problem Text: No recurrent symptoms 05/17/18 UCX NG (7) Anemia in chronic kidney disease Status: Acute Problem Text: Transfused 2 units PRBC 05/25 - defer Aranesp to Nephrology - Dose given 05/27 Hgb remains low but improved Heme neg stool 05/20 Iron studies not collected before transfusion - started on iron, but I will hold this for now due to nausea. B12/Folate pending (8) HTN (hypertension) Status: Chronic Problem Text: 05/25 - Remains on Spironolactone and Imdur and Coreg (9) MSSA (methicillin susceptible Staphylococcus aureus) septicemia Status: Acute Problem Text: 2 foot wound 05/19, 05/20/18 BCX1 each NG (10) Physical deconditioning Status: Chronic Problem Text: 05/27 not safe to dc home Plan/VTE VTE Prophylaxis Ordered?: Yes (SQ heparin) Plan Therapy: PT Disposition Plan is for home once medically stable VS[facility]O Vital Signs Date Time Temp Pulse Resp B/P (MAP) Pulse Ox O2 Delivery O2 Flow Rate FiO2 05/28/18 08:43 158/56 05/28/18 08:43 77 05/28/18 08:00 99.1 16 93 05/28/18 04:00 0.0 I&O- Last 24 Hours up to 6 AM0 05/28/18 06:00 Intake Total 360 ml Output Total 1985 ml Balance -1625 ml Laboratory Data 24H LABS Laboratory Tests 2 05/27/18 11:50: Bedside Glucose (Misc Panel) 202H 05/27/18 17:19: Bedside Glucose (Misc Panel) 125H 05/27/18 21:38: Bedside Glucose (Misc Panel) 183H 05/28/18 05:16: Nucleated Red Blood Cells % (auto) 0.0, Blood Urea Nitrogen 37H, Creatinine 2.05H, Sodium Level 136, Potassium Level 4.8, Chloride Level 100, Carbon Dioxide Level 29, Anion Gap 7L, Glomerular Filtration Rate 25.9L, Calcium Level 8.7L, Phosphorus Level 4.2, Albumin 1.9L CBC/BMP Laboratory Tests 05/28/18 05:16 Red Blood Count 3.03 L, Mean Corpuscular Volume 97.7 H, Mean Corpuscular Hemoglobin 29.7, Mean Corpuscular Hemoglobin Concent 30.4 L, Red Cell Distribut ion Width 14.6 H, Anion Gap 7 L Microbiology Microbiology 05/19/18 Blood Culture - Final, Complete NO GROWTH AFTER 5 DAYS 05/18/18 Blood Culture - Final, Complete NO GROWTH AFTER 5 DAYS 05/20/18 Stool Occult Blood ([facility]) - Final, Complete ERI CORDERO PA-C May 28, 2018 09:14 Alonzo Del Castillo M.D. May 28, 2018 16:12
[2018-05-28 10:21] LABS: PTH INTACT 31.8 PG/ML (18.5-88.0)
[2018-05-28 10:24] LABS: FOLATE 17.4 NG/ML
[2018-05-28] MEDS ORDERED: LIDOCAINE 2% MDV 20 ML VIAL As Ordered ONE (11:48)
[2018-05-28] MEDS ORDERED: HEPARIN 1,000 UNITS/ML 10ML VIAL (FOR RADIOLOGY& DIALYSIS ONLY) As Ordered ONE (11:48)
[2018-05-28] MEDS ORDERED: BUPIVACAINE HCL 0.5% 10 ML VIAL As Ordered ONE (11:48)
[2018-05-28] MEDS ORDERED: diphenhydrAMINE INJ 50MG/ML VIAL (J1200) As Ordered ONE (11:48)
[2018-05-28] MEDS ORDERED: ISOVUE-300 61% 100ML VIAL (Q9967) As Ordered ONE (11:49)
[2018-05-28] MEDS ORDERED: fentaNYL 100 MCG/2 ML INJECTION (J3010) As Ordered ONE (11:52)
[2018-05-28] MEDS ORDERED: MIDAZOLAM INJ 2 MG/2 ML VIAL (J2250) As Ordered ONE (11:52)
--- NOTE | 2018-05-28 12:22 | IPNPDOC ---
Subjective Date Seen The patient was seen on 05/28/18. Subjective Chief Complaint/HPI left foot diabetic ulcer General: Reports: Normal Appetite; Denies: Chills, Night Sweats, Fatigue, Malaise Pulmonary: Denies: Dyspnea, Cough Cardiovascular: Denies: Chest Pain, Lt Headedness Gastrointestinal: Reports: Nausea; Denies: Vomiting Genitourinary: Denies: Dysuria Musculoskeletal: Reports: Foot Pain (left foot pain is improved) Neurological: Denies: Weakness Objective Physical Examination General Exam: Positive: Alert, Cooperative, No Acute Distress Chest Exam: Positive: Clear to auscultation, Diminished (throughout); Negative: Wheezing Heart Exam: Positive: Rate Normal, Normal S1, Normal S2; Negative: Gallops, Murmurs, Rubs Abdomen Exam: Positive: Normal bowel sounds, BS Hypoactive, Soft; Negative: Tenderness Extremity Exam: Positive: Normal pulses, Other (Left lateral foot bandaging removed at bedside shows approximately 4x 12 cm longitudinal wound without purulent drainage extending up toward fibular tendon sheath. ); Negative: Cyanosis, Edema Neuro Exam: Positive: Normal Speech Psych Exam: Positive: Mental status NL, Mood NL Assessment /Plan Assessment IMPRESSION & PLAN: 1. Complicated skin and soft tissue infection with deep tendon abscess MSSA -she continues on IV Cefazolin 1 gram every 12 hours. The patient will remain on IV antibiotics. -Will see if we can close that wound after Dr. Calixto comes back from vacation, she really didn't have a bone infection, it was infected deep tissue affecting the tendon sheath. -WBC seems to slowly be improving -Possible angiogram today with vascular 2. Acute renal failure with superimposed chronic kidney disease -continues on dialysis, she is no longer SOB -can continue with IV abx during HD sessions once d/c Plan/VTE VTE Prophylaxis Ordered?: Yes (SQ heparin) Plan Therapy: PT VS, I&O, 24H, Fishbone Vital Signs/I&O Vital Signs Date Time Temp Pulse Resp B/P (MAP) Pulse Ox O2 Delivery O2 Flow Rate FiO2 05/28/18 08:43 158/56 05/28/18 08:43 77 05/28/18 08:00 99.1 16 93 05/28/18 04:00 0.0 I&O- Last 24 Hours up to 6 AM 05/28/18 06:00 Intake Total 360 ml Output Total 1985 ml Balance -1625 ml Laboratory Data 24H LABS Laboratory Tests 2 05/27/18 17:19: Bedside Glucose (Misc Panel) 125H 05/27/18 21:38: Bedside Glucose (Misc Panel) 183H 05/28/18 05:16: Nucleated Red Blood Cells % (auto) 0.0, Blood Urea Nitrogen 37H, Creatinine 2.05H, Sodium Level 136, Potassium Level 4.8, Chloride Level 100, Carbon Dioxide Level 29, Anion Gap 7L, Glomerular Filtration Rate 25.9L, Calcium Level 8.7L, Phosphorus Level 4.2, Albumin 1.9L, Vitamin B12 Level 1919, Folate 17.4, Parathyroid Hormone (Intact) 31.8 CBC/BMP Laboratory Tests 05/28/18 05:16 Red Blood Count 3.03 L, Mean Corpuscular Volume 97.7 H, Mean Corpuscular Hemoglobin 29.7, Mean Corpuscular Hemoglobin Concent 30.4 L, Red Cell Distribution Width 14.6 H, Anion Gap 7 L Microbiology Microbiology 05/19/18 Blood Culture - Final, Complete NO GROWTH AFTER 5 DAYS 05/18/18 Blood Culture - Final, Complete NO GROWTH AFTER 5 DAYS 05/20/18 Stool Occult Blood ([facility]) - Final, Complete GME ATTESTATION GME ATTESTATION My faculty preceptor for this patient encounter was physically present during the encounter and was fully available. All aspects of the patient interview, examination, medical decision making process, and medical care plan development were reviewed and approved by the faculty preceptor. The faculty preceptor is aware and concurs with the plan as stated in the body of this note and will attest to such by his/her cosignature. JOLEEN MART DO May 28, 2018 12:22
[2018-05-28] MEDS ORDERED: PROTAMINE SULF INJ 50 MG/5 ML VIAL (J2720) As Ordered ONE (12:29)
[2018-05-28] MEDS ORDERED: ISOVUE-370 76% 100ML VIAL (Q9967) As Ordered ONE (13:32)
--- NOTE | 2018-05-28 16:29 | IPN ---
DATE: 05/28/2018 Mrs. Narayan is seen this morning on her bedside. She just had a dressing change done on her left foot. She underwent her second hemodialysis yesterday, which she tolerated very well. She remains nauseated but denies any dyspnea or chest pain. She has no fever or chills. Blood cultures have been negative, and she remains on antibiotic for infected left foot wound. She also had a debridement done and still has an open wound. PHYSICAL EXAMINATION: Temperature is 97 degrees Fahrenheit, heart rate 78 per minute, respiratory rate 20 per minute, blood pressure 154/68 mm of mercury, and oxygen saturation 96%. Head is atraumatic. Neck is supple, and jugular venous distention (JVD) is not abnormally elevated. Heart sounds are regular and lungs with slightly diminished breath sounds. Abdomen obese, soft, and nontender, and bowel sounds are normal. Extremities have trace of edema and no cyanosis or clubbing. Left foot is wrapped in dressing. Neurologically, she is awake, alert, and oriented times three. She does not have asterixis anymore. Today's labs show WBC count 14.4, hemoglobin 9.0, hematocrit 29.6., platelets 244. Sodium 136, potassium 4.8, CO2 of 29, BUN 37, and creatinine 2.05. Glucose 231 and calcium 8.7. PROBLEMS: 1. Acute renal failure superimposed on chronic kidney disease. Her kidney disease at baseline is stage IV, and most likely she has end-stage renal disease. She did have uremic symptoms, and her GFR was down to 13 the day she had first dialysis. She was dialyzed yesterday again, and her symptoms have improved, though she is still nauseated. We will go ahead and plan another dialysis for tomorrow. 2. Congestive heart failure. Volume status has improved significantly, and we will remove about 1.5 liters of fluid with her dialysis again tomorrow. 3. Anemia. She required transfusion of 2 units, and we will treat her with Aranesp once a week now with dialysis. Anemia is gradually improving. 4. Infected wound on left foot. She remains on antibiotics and is being followed by Dr. Rodríguez. Her wound care is being done, and Dr. Calixto is going to return and re-evaluate her food for possible closure. DISPOSITION: The patient will require outpatient dialysis slot before she can be discharged. Patient and family services should go ahead and send an application for outpatient dialysis.
[2018-05-28] MEDS: MAGNESIUM OXIDE 400 MG TAB (MAG-OX) PO SCH (17:30)
[2018-05-28] MEDS: CALCITRIOL 0.25 MCG CAP (S0169) PO SCH (17:30)
[2018-05-28] MEDS: ATORVASTATIN 20 MG TAB PO SCH (20:44)
[2018-05-28] MEDS: ASPIRIN 81 MG ENTERIC TAB PO SCH (20:44)
[2018-05-28] MEDS: PANTOPRAZOLE 40MG TAB (PROTONIX) PO SCH (20:44)
[2018-05-29 04:00] VITALS: BP 154/50
[2018-05-29] MEDS: ceFAZolin SOD 1 GM in D5W MINI-BAG PLUS 50 ML IV SCH ×2 (05:26→18:51)
[2018-05-29] MEDS: HEPARIN SOD (PORCINE) 5000 UNITS/ML VIAL SC SCH ×3 (05:26→21:26)
[2018-05-29] MEDS: LEVEMIR (INSULIN DETEMIR) 1 UNITS/0.01ML SC SCH ×2 (05:26→21:00)
[2018-05-29 05:27] LABS: HEMATOCRIT 27.1 % (36.0-47.0); HEMOGLOBIN 8.3 g/dl (12.0-15.5); MEAN CORPUSCULAR HEMOGLOBIN 29.7 pg (27.0-33.0); MEAN CORPUSCULAR HGB CONC 30.6 g/dl (32.0-36.5); MEAN CORPUSCULAR VOLUME 97.1 fl (80.0-96.0); PLATELET COUNT, AUTOMATED 223 10^3/uL (150-450); RED BLOOD COUNT 2.79 10^6/uL (4.00-5.40)
[2018-05-29] MEDS: CALCITRIOL 0.25 MCG CAP (S0169) PO SCH (05:27)
[2018-05-29] MEDS: PARoxetine 20 MG TAB PO SCH (05:27)
[2018-05-29] MEDS: MAGNESIUM OXIDE 400 MG TAB (MAG-OX) PO SCH (05:27)
[2018-05-29] MEDS: CARVedilol 12.5 MG TAB PO SCH ×2 (05:27→21:26)
[2018-05-29] MEDS: SLF 3 ML SYR IV SCH ×3 (05:28→21:26)
[2018-05-29] MEDS: SPIRONOLACTONE 25 MG TAB PO SCH (05:28)
[2018-05-29] MEDS: ISOSORBIDE MON. (IMDUR) 30 MG XR TAB PO SCH (05:28)
[2018-05-29] MEDS: GABAPENTIN 300 MG CAP PO SCH ×2 (05:28→21:25)
[2018-05-29 05:47] LABS: ALBUMIN 1.8 GM/DL (3.2-5.2); C REACTIVE PROTEIN QUANTITATIV 12.3 MG/DL (0.00-0.30); CALCIUM LEVEL 8.6 MG/DL (8.8-10.2); CREATININE FOR GFR 2.09 MG/DL (0.55-1.30); GLOMERULAR FILTRATION RATE 25.3 (>45); PHOSPHORUS LEVEL 4.6 MG/DL (2.5-4.9); POTASSIUM SERUM 4.3 MEQ/L (3.5-5.1)
[2018-05-29] MEDS: HumaLOG INSULIN (NovoLOG) PER UNIT SC SCH ×4 (07:04→21:00)
[2018-05-29 08:00] VITALS: BP 145/62
[2018-05-29 12:00] VITALS: BP 135/82
--- NOTE | 2018-05-29 12:51 | IPNPDOC ---
Subjective Date Seen The patient was seen on 05/29/18. Subjective Chief Complaint/HPI dyspnea at baseline Constitutional: Denies: Chills Eyes: Denies: Pain ENT: Denies: Head Aches Pulmonary: Denies: Dyspnea, Cough Cardiovascular: Denies: Chest Pain, Palpitations Objective Physical Examination General Exam: Positive: Alert, Cooperative, No Acute Distress Chest Exam: Positive: Clear to auscultation, Rales (bilateral lower lobe crackles), Diminished (2/2 to body habitus); Negative: Wheezing Heart Exam: Positive: Rate Normal, Normal S1, Normal S2; Negative: Gallops, Murmurs, Rubs Abdomen Exam: Positive: Normal bowel sounds, Soft (obese abdomen); Negative: Tenderness Extremity Exam: Positive: Normal pulses, Other (Left lateral foot bandaging removed at bedside shows approximately 12 cm longitudinal wound without purulent drainage extending up toward fibular tendon sheath. ); Negative: Cyanosis, Edema Neuro Exam: Positive: Normal Speech Psych Exam: Positive: Mental status NL, Mood NL Assessment /Plan Problems (1) Nausea Status: Chronic Problem Text: favor 2 uremic gastritis improved c dialysis, off Fe, + panto 40 QD 05/28 05/29 H pylori P (2) Diabetic foot infection Status: Acute Problem Text: D11 cefazolin (per ID) 2 c complicated MSSA skin and soft tissue infection MSSA with an abscess along the common peroneal tendon Sheath defer dc home until wound reassessed by Podiatry for possible wound closure 05/29 AF, but WBC down to 12.0 (14.4), CRP 12.3 (/3 15) 05/21 S/P exploration and packing by Dr. Calixto (3) Acute renal failure superimposed on chronic kidney disease Problem Text: 05/28 - Per Nephrology - Dialysis catheter placed 05/25 and underwent First Dialysis session 05/25, Second 05/27, third will be 05/29 then can arrange outpatient dialysis\ 05/28/18 B renal arteriogram (4) Diastolic CHF Status: Chronic Problem Text: Euvolemic sp HD (5) DM2 (diabetes mellitus, type 2) Status: Chronic Problem Text: 05/28 - Patient refused am Levemir yesterday - not eating much due to nausea Cut back slightly and monitor trend (change to 20 am/25 pm) (6) UTI (urinary tract infection) Status: Resolved Problem Text: No recurrent symptoms 05/17/18 UCX NG (7) Anemia in chronic kidney disease Status: Acute Problem Text: continues Aranesp/IV Fe c dialysis 05/29 hgb 8.3 (9) 05/25 sp 2u PRBCs 05/20/18 HO- 05/28 B12 1919 (8) HTN (hypertension) Status: Chronic Problem Text: 05/25 - Remains on Spironolactone and Imdur and Coreg (9) MSSA (methicillin susceptible Staphylococcus aureus) septicemia Status: Acute Problem Text: 2 foot wound 05/19, 05/20/18 BCX1 each NG (10) Physical deconditioning Status: Chronic Problem Text: 05/27 not safe to dc home Plan/VTE VTE Prophylaxis Ordered?: Yes (SQ heparin) Plan Therapy: PT VS, I&O, 24H, Fishbone Vital Signs/I&O Vital Signs Date Time Temp Pulse Resp B/P (MAP) Pulse Ox O2 Delivery O2 Flow Rate FiO2 05/29/18 12:00 97.9 68 20 135/82 (99) 95 05/28/18 13:10 0.0 I&O- Last 24 Hours up to 6 AM 05/29/18 06:00 Intake Total 940 ml Output Total 550 ml Balance 390 ml Laboratory Data 24H LABS Laboratory Tests 2 05/28/18 14:25: Bedside Glucose (Misc Panel) 170H 05/28/18 17:01: Bedside Glucose (Misc Panel) 148H 05/28/18 20:15: Bedside Glucose (Misc Panel) 190H 05/29/18 04:40: Nucleated Red Blood Cells % (auto) 0.0, Blood Urea Nitrogen 45H, Creatinine 2.09H, Sodium Level 136, Potassium Level 4.3, Chloride Level 101, Carbon Dioxide Level 28, Anion Gap 7L, Glomerular Filtration Rate 25.3L, Calcium Level 8.6L, Phosphorus Level 4.6, C-Reactive Protein, Quantitative 12.30H, Albumin 1.8L 05/29/18 06:33: Bedside Glucose (Misc Panel) 229H 05/29/18 11:37: Bedside Glucose (Misc Panel) 201H CBC/BMP Laboratory Tests 05/29/18 04:40 Red Blood Count 2.79 L, Mean Corpuscular Volume 97.1 H, Mean Corpuscular Hemoglobin 29.7, Mean Corpuscular Hemoglobin Concent 30.6 L, Red Cell Distribution Width 14.4, Anion Gap 7 L Microbiology Microbiology 05/19/18 Blood Culture - Final, Complete NO GROWTH AFTER 5 DAYS 05/20/18 Stool Occult Blood ([facility]) - Final, Complete Alonzo Del Castillo M.D. May 29, 2018 12:51
[2018-05-29 16:00] VITALS: BP 134/68
[2018-05-29 20:00] VITALS: BP 158/56
[2018-05-29] MEDS: ATORVASTATIN 20 MG TAB PO SCH (21:25)
[2018-05-29] MEDS: PANTOPRAZOLE 40MG TAB (PROTONIX) PO SCH (21:25)
[2018-05-29] MEDS: ASPIRIN 81 MG ENTERIC TAB PO SCH (21:25)
[2018-05-30] VITALS (7 sets, daily range): BP systolic 132–162; BP diastolic 54–73
[2018-05-30 05:15] LABS: HEMATOCRIT 26.2 % (36.0-47.0); HEMOGLOBIN 8.1 g/dl (12.0-15.5); MEAN CORPUSCULAR HEMOGLOBIN 29.9 pg (27.0-33.0); MEAN CORPUSCULAR HGB CONC 30.9 g/dl (32.0-36.5); MEAN CORPUSCULAR VOLUME 96.7 fl (80.0-96.0); PLATELET COUNT, AUTOMATED 220 10^3/uL (150-450); RED BLOOD COUNT 2.71 10^6/uL (4.00-5.40)
[2018-05-30] MEDS: ceFAZolin SOD 1 GM in D5W MINI-BAG PLUS 50 ML IV SCH ×2 (05:29→17:26)
[2018-05-30] MEDS: HEPARIN SOD (PORCINE) 5000 UNITS/ML VIAL SC SCH ×3 (05:29→20:40)
[2018-05-30] MEDS: SLF 3 ML SYR IV SCH ×3 (05:29→20:41)
[2018-05-30 05:33] LABS: ALBUMIN 1.7 GM/DL (3.2-5.2); C REACTIVE PROTEIN QUANTITATIV 10.9 MG/DL (0.00-0.30); CALCIUM LEVEL 8.7 MG/DL (8.8-10.2); CREATININE FOR GFR 2.15 MG/DL (0.55-1.30); GLOMERULAR FILTRATION RATE 24.5 (>45); PHOSPHORUS LEVEL 3.9 MG/DL (2.5-4.9)
[2018-05-30 05:37] LABS: PERCENT SATURATION 16.8 % (13.2-45.0)
[2018-05-30] MEDS: GABAPENTIN 300 MG CAP PO SCH ×2 (08:22→20:41)
[2018-05-30] MEDS: PARoxetine 20 MG TAB PO SCH (08:22)
[2018-05-30] MEDS: SPIRONOLACTONE 25 MG TAB PO SCH (08:22)
[2018-05-30] MEDS: CARVedilol 12.5 MG TAB PO SCH ×2 (08:22→20:41)
[2018-05-30] MEDS: MAGNESIUM OXIDE 400 MG TAB (MAG-OX) PO SCH (08:23)
[2018-05-30] MEDS: CALCITRIOL 0.25 MCG CAP (S0169) PO SCH (08:23)
[2018-05-30] MEDS: ISOSORBIDE MON. (IMDUR) 30 MG XR TAB PO SCH (08:23)
[2018-05-30] MEDS: HumaLOG INSULIN (NovoLOG) PER UNIT SC SCH ×4 (08:24→20:57)
[2018-05-30] MEDS: LEVEMIR (INSULIN DETEMIR) 1 UNITS/0.01ML SC SCH ×2 (08:24→20:40)
--- NOTE | 2018-05-30 09:19 | IPN ---
DATE OF SERVICE: 05/29/2018 SUBJECTIVE: Patient was seen and examined at the bedside today morning. Patient is afebrile, hemodynamically stable. She reports that she is feeling better ever since she was started on dialysis. Patient is due for another session of hemodialysis today. OBJECTIVE: VITAL SIGNS: Temperature is 98.5 degrees Fahrenheit, blood pressure 158/56, pulse is 79, respiratory rate of 18, saturating 96% on room air. INTAKE AND OUTPUT: Urine output recorded as 900 mL so far today since overnight. Weight on the bed scale is 125.9 kg. PHYSICAL EXAMINATION: GENERAL: Patient is awake, alert, oriented times three, morbidly obese, sitting up in bed, in no apparent distress. HEAD AND NECK EXAM: Extraocular muscles intact. Pupils equally round and reactive to light. Mucous membranes are moist. Neck is supple. She has a right internal jugular (IJ) tunneled hemodialysis catheter. CARDIOVASCULAR: S1, S2. Regular rate. No murmur, rub or gallop. 1+ edema on the bilateral lower extremities. RESPIRATORY: Chest is clear auscultation bilaterally. Bilateral equal air entry. No rales or rhonchi. ABDOMEN: Is soft, obese, positive bowel sounds, nontender. No organomegaly. Musculoskeletal: She has a dressing on the left foot. Central nervous system (CARPET SEWER): No focal deficit. Power is 5/5 in bilateral upper extremities. LABORATORY REVIEW: CBC showed WBC of 12, hemoglobin 8.3, platelets are 223. BMP showed sodium 136, potassium 4.3, chloride 101, bicarbonate 28, BUN 45, creatinine is 2, calcium is 8.6, C-reactive protein is 12.3. CURRENT INPATIENT MEDICATIONS: Patient's medications were all reviewed by me. Patient continues to be on IV Ancef. She is also on Aranesp 200 mcg once a week with hemodialysis. ASSESSMENT AND PLAN: 1. Acute renal failure superimposed on chronic kidney disease, stage IV. Patient is dialysis dependent. She was started on dialysis during this hospitalization. Today is another session of dialysis. I would try to remove about 1.5 liters of fluid as tolerated by her blood pressure. 2. Chronic diastolic congestive heart failure. Patient's volume status is being optimized with hemodialysis, and lower extremity edema is improving and weight is getting better. 3. Infected left foot wound. Patient is currently on IV Ancef. Dose and duration of antibiotic is as per infectious disease recommendations. 4. Anemia in end-stage renal disease. Hemoglobin is 8.3, which is optimal. Continue current dose of Aranesp. I am also going to check the iron levels on this patient. 5. Hypertension. Blood pressure is optimal. Continue current dose of Coreg 12.5 mg by mouth twice a day, isosorbide 30 mg by mouth daily.
[2018-05-30] MEDS ORDERED: IRON SUCROSE 100MG 5ML VIAL (J1756 PER 1MG) IV SCH (10:00)
--- NOTE | 2018-05-30 15:42 | IPNPDOC ---
Subjective Date Seen The patient was seen on 05/30/18. Subjective Chief Complaint/HPI dyspnea at baseline, no foot pain Constitutional: Denies: Chills Eyes: Denies: Pain ENT: Denies: Head Aches Skin: Denies: Rash Pulmonary: Denies: Dyspnea, Cough Cardiovascular: Denies: Chest Pain, Palpitations Objective Physical Examination General Exam: Positive: Alert, Cooperative, No Acute Distress Chest Exam: Positive: Clear to auscultation, Rales (bilateral lower lobe crackles), Diminished (2/2 to body habitus); Negative: Wheezing Heart Exam: Positive: Rate Normal, Normal S1, Normal S2; Negative: Gallops, Murmurs, Rubs Abdomen Exam: Positive: Normal bowel sounds, Soft (obese abdomen); Negative: Tenderness Extremity Exam: Positive: Normal pulses, Other (Left lateral foot bandaging removed at bedside shows approximately 12 cm longitudinal wound without purulent drainage extending up toward fibular tendon sheath. ); Negative: Cyanosis, Edema Neuro Exam: Positive: Normal Speech Psych Exam: Positive: Mental status NL, Mood NL Assessment /Plan Problems (1) Diabetic foot infection Status: Acute Problem Text: D12 cefazolin (per ID) 2 c complicated MSSA skin and soft tissue infection MSSA with an abscess along the common peroneal tendon sheath 05/31 attempted wound closure by Noelle 05/30 AF, but WBC down to 11.0 (05/28 14.4), CRP 10.9 (05/26 15) 05/21 S/P exploration and packing by Dr. Calixto (2) Nausea Status: Chronic Problem Text: favor 2 uremic gastritis improved c dialysis, off Fe, + panto 40 QD 05/28 05/29 H pylori P (3) Acute renal failure superimposed on chronic kidney disease Problem Text: HD as per Nephro plan possible dc home p 06/01 dialysis R forearm fistula by Byron Drummond (4) Diastolic CHF Status: Chronic Problem Text: Euvolemic sp HD (5) DM2 (diabetes mellitus, type 2) Status: Chronic Problem Text: BGs mid 100s on i det c SSLI (HD i glar 70/60!) (6) UTI (urinary tract infection) Status: Resolved Problem Text: No recurrent symptoms 05/17/18 UCX NG (7) Anemia in chronic kidney disease Status: Acute Problem Text: continues Aranesp/IV Fe c dialysis 05/29 hgb 8.3 (9) 05/25 sp 2u PRBCs 05/20/18 HO- 05/28 B12 1919 (8) HTN (hypertension) Status: Chronic Problem Text: Good control on carve 12.5 BID, ISMN 30, francie 25 (9) MSSA (methicillin susceptible Staphylococcus aureus) septicemia Status: Acute Problem Text: 2 foot wound 05/19, 05/20/18 BCX1 each NG (10) Physical deconditioning Status: Chronic Problem Text: 05/27 not safe to dc home Plan/VTE VTE Prophylaxis Ordered?: Yes (SQ heparin) Plan Therapy: PT VS, I&O, 24H, Fishbone Vital Signs/I&O Vital Signs Date Time Temp Pulse Resp B/P (MAP) Pulse Ox O2 Delivery O2 Flow Rate FiO2 05/30/18 12:00 97.2 68 20 145/68 (93) 96 05/28/18 13:10 0.0 I&O- Last 24 Hours up to 6 AM 05/30/18 06:00 Intake Total 530 ml Output Total 2300 ml Balance -1770 ml Laboratory Data 24H LABS Laboratory Tests 2 05/29/18 16:18: Bedside Glucose (Misc Panel) 96 05/29/18 20:43: Bedside Glucose (Misc Panel) 135H 05/30/18 04:56: Nucleated Red Blood Cells % (auto) 0.0, Blood Urea Nitrogen 26H, Creatinine 2.15H, Sodium Level 135L, Potassium Level 4.0, Chloride Level 100, Carbon Dioxide Level 29, Anion Gap 6L, Glomerular Filtration Rate 24.5L, Calcium Level 8.7L, Phosphorus Level 3.9, Iron Level 26L, Total Iron Binding Capacity 155L, Transferrin % Saturation 16.8, Ferritin 685H, C-Reactive Protein, Quantitative 10.90H, Albumin 1.7L 05/30/18 11:28: Bedside Glucose (Misc Panel) 194H CBC/BMP Laboratory Tests 05/30/18 04:56 Red Blood Count 2.71 L, Mean Corpuscular Volume 96.7 H, Mean Corpuscular Hemoglobin 29.9, Mean Corpuscular Hemoglobin Concent 30.9 L, Red Cell Distribution Width 14.4, Anion Gap 6 L Microbiology Microbiology 05/20/18 Stool Occult Blood ([facility]) - Final, Complete Abundio,Alonzo E. M.D. RAMANDEEP May 30, 2018 15:42
--- NOTE | 2018-05-30 19:40 | IPN ---
DATE: 05/29/2018 CHIEF COMPLAINT: Patient is seen for evaluation of her left foot. Patient denies shortness of breath or chest pain. Laboratory studies reviewed. White blood cell count is 12.0, down from her initial at admission of 15.4, C-reactive protein is decreased to 10.9. Bandage was removed. Reveals good granulation tissue along the wound bed on the left foot. It extends from the mid-shaft of the 5th metatarsal to the tip of the lateral malleolus. There is some contraction of the wound present and some necrotic tissue in the margins, however there is no purulence and considerable reduction in swelling is noted of the left lower extremity. There is no calf tenderness. ASSESSMENT: Stage IV wound left foot with no abscess formation. PLAN: We discussed with the patient an attempt at delayed primary closure, however there is some contraction of wound margin. We also discussed that the wound would not be completely closed, utilizing a wound vacuum assisted closure (VAC). She will be taken to the operating room (OR) Thursday at approximately 5 p.m. She will be nothing by mouth after breakfast on Thursday. Order to hold her morning heparin dose. Her questions were answered.
--- NOTE | 2018-05-30 19:54 | IPN ---
DATE: 05/30/2018 SUBJECTIVE: Patient was seen and examined at the bedside today morning. She was dialyzed yesterday, she tolerated the hemodialysis procedure well, 1.5 liters of fluid was removed. She denies any active complaints at this point. OBJECTIVE: VITAL SIGNS: Temperature is 97.2 degrees Fahrenheit, blood pressure 145/68, pulse 68, respiratory rate of 20, saturating 96% on room air. Intake and output: Urine output recorded is 250 mL since overnight. Weight in the bed scale is 125.2 kg. Ultrafiltration with hemodialysis was 1.5 liters. PHYSICAL EXAMINATION: GENERAL: Patient is awake, alert, oriented times three, laying in bed, no apparent distress. HEAD and NECK EXAM: Extraocular muscles intact. Pupils equally round and reactive to light. Mucous membranes are moist. Neck is supple. She has a right internal jugular (IJ) tunneled hemodialysis catheter. CARDIOVASCULAR: S1, S2, regular rate. Trace edema of the bilateral lower extremities. RESPIRATORY: Chest is clear to auscultation bilaterally. Bilateral equal air entry. No rales or rhonchi. ABDOMEN: Soft, obese, positive bowel sounds, nontender. MUSCULOSKELETAL: No clubbing or cyanosis. She has a dressing on the left foot. CENTRAL NERVOUS SYSTEM (ELECTRONIC PUBLISHER): No focal deficit. Power is 5/5 in bilateral upper extremities. LABORATORY REVIEW: CBC showed WBC of 11, hemoglobin is 8.1, platelets are 220. BMP showed sodium 135, potassium 4, chloride 100, bicarbonate 29, BUN 26, creatinine is 2.1, iron is 26, transferrin saturation is 16.8%, ferritin is 685. CURRENT INPATIENT MEDICATIONS: Patient's medications were all reviewed by me. I have started the patient on iron sucrose 100 mg IV with hemodialysis for a total of ten doses. Tramadol was stopped today morning. No change in the medications today. ASSESSMENT AND PLAN: 1. Acute renal failure superimposed on chronic kidney disease stage IV. She is dialysis dependent. Patient was dialyzed yesterday, 1.5 liters of fluid was removed. Continue three times a week hemodialysis at this point. 2. Chronic diastolic congestive heart failure. Volume status is significantly improving with hemodialysis and ultrafiltration. Okay to continue spironolactone at this point. 3. Infected left foot wound. Continue IV Ancef. Dose and duration is as per infectious disease (ID) recommendations. 4. Anemia in end-stage renal disease. Patient is already on Aranesp. Her iron levels are low. I am also starting her on iron infusion, 100 mg with each hemodialysis. 5. Hypertension with chronic kidney disease. Blood pressure is optimized. Continue current dose of Coreg and isosorbide. Volume management would also help lower the blood pressures.
[2018-05-30] MEDS: ATORVASTATIN 20 MG TAB PO SCH (20:40)
[2018-05-30] MEDS: ASPIRIN 81 MG ENTERIC TAB PO SCH (20:41)
[2018-05-30] MEDS: PANTOPRAZOLE 40MG TAB (PROTONIX) PO SCH (20:41)
[2018-05-30] MEDS: CYCLOBENZAPRINE 10 MG TAB PO PRN (23:42)
[2018-05-31 04:00] VITALS: BP 152/60
[2018-05-31 05:19] LABS: HEMATOCRIT 25.6 % (36.0-47.0); HEMOGLOBIN 7.7 g/dl (12.0-15.5); MEAN CORPUSCULAR HEMOGLOBIN 29.6 pg (27.0-33.0); MEAN CORPUSCULAR HGB CONC 30.1 g/dl (32.0-36.5); MEAN CORPUSCULAR VOLUME 98.5 fl (80.0-96.0); PLATELET COUNT, AUTOMATED 233 10^3/uL (150-450); WHITE BLOOD COUNT 10.7 10^3/uL (4.0-10.0)
[2018-05-31] MEDS: HEPARIN SOD (PORCINE) 5000 UNITS/ML VIAL SC SCH (05:30)
[2018-05-31] MEDS: SLF 3 ML SYR IV SCH ×3 (05:31→22:33)
[2018-05-31 05:41] LABS: ALBUMIN 1.7 GM/DL (3.2-5.2); C REACTIVE PROTEIN QUANTITATIV 9.53 MG/DL (0.00-0.30); CALCIUM LEVEL 8.5 MG/DL (8.8-10.2); CREATININE FOR GFR 2.56 MG/DL (0.55-1.30); PHOSPHORUS LEVEL 4.4 MG/DL (2.5-4.9); POTASSIUM SERUM 4.4 MEQ/L (3.5-5.1)
[2018-05-31] MEDS: ceFAZolin SOD 1 GM in D5W MINI-BAG PLUS 50 ML IV SCH ×2 (05:51→22:33)
[2018-05-31] MEDS: HumaLOG INSULIN (NovoLOG) PER UNIT SC SCH ×4 (06:29→22:13)
[2018-05-31 08:00] VITALS: BP 136/60
[2018-05-31] MEDS: ISOSORBIDE MON. (IMDUR) 30 MG XR TAB PO SCH (08:21)
[2018-05-31] MEDS: CALCITRIOL 0.25 MCG CAP (S0169) PO SCH (08:21)
[2018-05-31] MEDS: SPIRONOLACTONE 25 MG TAB PO SCH (08:22)
[2018-05-31] MEDS: GABAPENTIN 300 MG CAP PO SCH ×2 (08:22→22:32)
[2018-05-31] MEDS: MAGNESIUM OXIDE 400 MG TAB (MAG-OX) PO SCH (08:22)
[2018-05-31] MEDS: PARoxetine 20 MG TAB PO SCH (08:22)
[2018-05-31] MEDS: CARVedilol 12.5 MG TAB PO SCH ×2 (08:22→22:32)
[2018-05-31] MEDS: LEVEMIR (INSULIN DETEMIR) 1 UNITS/0.01ML SC SCH ×2 (08:59→22:33)
--- NOTE | 2018-05-31 09:04 | IPNPDOC ---
Subjective Date Seen The patient was seen on 05/31/18. Subjective Chief Complaint/HPI Pt this morning is doing well. She is concerned about being set up for outpt dialysis more than anything else. She is scheduled for the OR this evening with Dr Calixto. She needs fistula placed. General: Denies: Fatigue Constitutional: Denies: Chills, Fever Pulmonary: Denies: Dyspnea, Cough Cardiovascular: Denies: Chest Pain, Palpitations Gastrointestinal: Denies: Nausea, Vomiting, Diarrhea Neurological: Denies: Weakness Psych: Reports: Mood Normal Objective Physical Examination General Exam: Positive: Alert, Cooperative, No Acute Distress ENT Exam: Positive: Mucous membr. moist/pink Chest Exam: Positive: Clear to auscultation, Rales, Diminished (2/2 to body habitus); Negative: Wheezing Heart Exam: Positive: Rate Normal, Normal S1, Normal S2; Negative: Gallops, Murmurs, Rubs Abdomen Exam: Positive: Normal bowel sounds, Soft (obese abdomen); Negative: Tenderness Extremity Exam: Positive: Normal pulses, Other (L foot bandaged); Negative: Cyanosis, Edema Neuro Exam: Positive: Normal Speech Psych Exam: Positive: Mental status NL, Mood NL Assessment /Plan Problems (1) Anemia in chronic kidney disease Status: Acute Problem Text: continues Aranesp/IV Fe c dialysis 05/31 down to 7.7, sp 1u-recheck HO 05/25 sp 2u PRBCs 05/20/18 HO- 05/28 B12 1918 (2) Diabetic foot infection Status: Acute Problem Text: 05/31 plan for wound closure in OR this afternoon, will need wound vac - per Podiatry. WBC 10.7, slightly lower than yest, CRP consistently trending down. D13 cefazolin (per ID) Complicated MSSA skin and soft tissue infection MSSA with an abscess along the common peroneal tendon sheath 05/31 attempted wound closure by Noelle 05/30 AF, but WBC down to 11.0 (05/28 14.4), CRP 10.9 (05/26 15) 05/21 S/P exploration and packing by Dr. Calixto (3) Acute renal failure superimposed on chronic kidney disease Problem Text: HD as per Nephro plan possible dc home p 06/01 dialysis R forearm fistula by Byron Drummond (4) Nausea Status: Resolved Response to Treatment: Stable Problem Text: favor 2 uremic gastritis improved c dialysis, off Fe, + panto 40 QD 05/28 05/29 H pylori P (5) Diastolic CHF Status: Chronic Problem Text: Euvolemic sp HD (6) DM2 (diabetes mellitus, type 2) Status: Chronic Problem Text: BGs mid 100s on i det 20/25 c SSLI (HD i glar 70/60!) (7) HTN (hypertension) Status: Chronic Problem Text: Good control on carve 12.5 BID, ISMN 30, francie 25 (8) UTI (urinary tract infection) Status: Resolved Problem Text: No recurrent symptoms 05/17/18 UCX NG (9) MSSA (methicillin susceptible Staphylococcus aureus) septicemia Status: Acute Problem Text: 2 foot wound 05/19, 05/20/18 BCX1 each NG (10) Physical deconditioning Status: Chronic Problem Text: 05/27 not safe to dc home Plan/VTE VTE Prophylaxis Ordered?: Yes (SQ heparin) Plan Therapy: PT VS, I&O, 24H, Fishbone Vital Signs/I&O Vital Signs Date Time Temp Pulse Resp B/P (MAP) Pulse Ox O2 Delivery O2 Flow Rate FiO2 05/31/18 08:22 68 136/60 05/31/18 08:00 97.1 20 97 05/28/18 13:10 0.0 I&O- Last 24 Hours up to 6 AM 05/31/18 06:00 Intake Total 1320 ml Output Total 250 ml Balance 1070 ml Laboratory Data 24H LABS Laboratory Tests 2 05/30/18 11:28: Bedside Glucose (Misc Panel) 194H 05/30/18 16:29: Bedside Glucose (Misc Panel) 239H 05/30/18 20:32: Bedside Glucose (Misc Panel) 242H 05/31/18 04:57: Nucleated Red Blood Cells % (auto) 0.0, Blood Urea Nitrogen 35H, Creatinine 2.56H, Sodium Level 132L, Potassium Level 4.4, Chloride Level 99, Carbon Dioxide Level 27, Anion Gap 6L, Glomerular Filtration Rate 20.0L, Calcium Level 8.5L, Phosphorus Level 4.4, C-Reactive Protein, Quantitative 9.53H, Albumin 1.7L CBC/BMP Laboratory Tests 05/31/18 04:57 Red Blood Count 2.60 L, Mean Corpuscular Volume 98.5 H, Mean Corpuscular Hemoglobin 29.6, Mean Corpuscular Hemoglobin Concent 30.1 L, Red Cell Distribution Width 14.4, Anion Gap 6 L MEGHAN VELÁSQUEZ PA-C May 31, 2018 09:04 Alonzo Del Castillo M.D. May 31, 2018 15:09
[2018-05-31] MEDS ORDERED: LEVEMIR (INSULIN DETEMIR) 1 UNITS/0.01ML SC ONE (10:00)
[2018-05-31 12:00] VITALS: BP 158/50
--- NOTE | 2018-05-31 12:48 | IPN ---
DATE: 05/31/2018 SUBJECTIVE: The patient was seen and examined at the bedside this morning. She is afebrile and hemodynamically stable. Her labs are reviewed. Her hemoglobin has dropped to 7.7. She denies any bleeding, hematuria or blood in the stools or black tarry stools. OBJECTIVE: VITAL SIGNS: Temperature is 97.12 degrees Fahrenheit, blood pressure 136/60, pulse 68, respiratory rate of 20, saturating 97% on room air. Intake and output: Urine output recorded as 375 mL. Weight on the bed scale is 127.3 kg. PHYSICAL EXAMINATION: GENERAL: Patient is awake, alert, oriented times three morbidly obese sitting up in the bed in no apparent distress. HEAD/NECK: Extraocular muscles intact. Pupils equal, round, and reactive to light. Mucous membranes are moist. Neck is supple. She has a right internal jugular (IJ) tunnel hemodialysis catheter. CARDIOVASCULAR: S1, S2, regular rate. Trace edema of the bilateral lower extremities. RESPIRATORY: Chest is clear to auscultation bilaterally. Bilaterally good air entry. No rales or rhonchi. ABDOMEN: Soft, obese, positive bowel sound, nontender. MUSCULOSKELETAL: No clubbing or cyanosis. She has a dressing on the left foot. No focal deficit. Power is 5/5 in bilateral upper extremities. LAB REVIEW: CBC showed a WBC of 10.7, hemoglobin 7.7, platelets 233. BMP showed a sodium 132, potassium 4.4, chloride 99, bicarbonate 27, BUN 35, creatinine 0.5. CURRENT INPATIENT MEDICATIONS: Patient's medication are all reviewed by me. There is no change in the medications today as compared with yesterday. ASSESSMENT/PLAN: 1. Acute renal failure: Patient has progressed to end-stage renal disease. She is dialysis dependent. Her next hemodialysis session will be tomorrow morning. 2. Anemia and end-stage renal disease: Patient is supposed to start iron with hemodialysis starting tomorrow. Continue current dose of Aranesp. Hemoglobin has dropped below 8. I have ordered one unit packed red blood cells (PRBC) blood transfusion. 3. Chronic diastolic congestive heart failure. Volume status is being optimized with dialysis. 4. Infected left foot wound: Patient continues to be on IV Ancef. 5. Hypertension with chronic kidney disease. Blood pressure is optimized. Continue current dose of Coreg and isosorbide. Volume management with dialysis as mentioned above. MTDD
[2018-05-31] MEDS: ACETAMINOPHEN TAB 650MG DOSE (2X325MG) PO PRN (14:18)
[2018-05-31 16:00] VITALS: BP 130/50
[2018-05-31] MEDS ORDERED: VANCOMYCIN 1000 MG/20 ML VIAL (J3370) As Ordered ONE (17:02)
[2018-05-31] MEDS ORDERED: PROPOFOL 200 MG/20 ML VIAL As Ordered ONE (17:02)
[2018-05-31] MEDS ORDERED: LIDOCAINE 2% INJ 100 MG/5 ML SDV (FOR ANES.) As Ordered ONE (17:03)
[2018-05-31] MEDS ORDERED: MIDAZOLAM INJ 2 MG/2 ML VIAL (J2250) As Ordered ONE (17:03)
[2018-05-31] MEDS ORDERED: fentaNYL 100 MCG/2 ML INJECTION (J3010) As Ordered ONE (17:03)
[2018-05-31] MEDS ORDERED: BUPIVACAINE HCL 0.5% 30 ML VIAL As Ordered ONE (17:22)
[2018-05-31] MEDS ORDERED: LIDOCAINE 2% MDV 20 ML VIAL As Ordered ONE (17:22)
[2018-05-31] MEDS ORDERED: ceFAZolin 1GM INJ (J0690 PER 500MG) As Ordered ONE (17:33)
[2018-05-31] MEDS ORDERED: PERCOCET 5MG/325MG TAB PO PRN (19:00)
[2018-05-31] MEDS ORDERED: HYDROMORPHONE HCL 0.5 MG/ 0.5 ML SYRINGE (J1170 PER 1) IV PRN (19:00)
[2018-05-31] MEDS ORDERED: fentaNYL 100 MCG/2 ML INJECTION (J3010) IV PRN (19:00)
[2018-05-31 20:00] VITALS: BP 120/64
--- NOTE | 2018-05-31 21:48 | IPNPDOC ---
Subjective Date Seen The patient was seen on 05/31/18. Subjective Chief Complaint/HPI left foot ulcer General: Reports: Other Symptoms (denies chills but admits to fatigue) Constitutional: Reports: Other (denies fever) Pulmonary: Reports: Other Symptoms (denies SOB or cough) Cardiovascular: Reports: Other Symptoms (denies CP or heart palpitations) Gastrointestinal: Reports: Other Symptoms (denies n/v or diarrhea) Musculoskeletal: Reports: Foot Pain (some pain in left foot uclers) Psych: Reports: Mood Normal Objective Physical Examination General Exam: Positive: Alert, Cooperative, No Acute Distress ENT Exam: Positive: Mucous membr. moist/pink Chest Exam: Positive: Clear to auscultation, Rales, Diminished (2/2 to body habitus); Negative: Wheezing Heart Exam: Positive: Rate Normal, Normal S1, Normal S2; Negative: Gallops, Murmurs, Rubs Abdomen Exam: Positive: Normal bowel sounds, Soft; Negative: Tenderness Extremity Exam: Positive: Normal pulses, Other (L foot demonstrates healing 4 mm by 11 mm open wound with surrounding granulation tissue, the most posterior aspect of the wound seems to be draining some serous fluid especially with physical manipulation, there is also another area on medial mallelous of opened appearing blister with overlying sloughed skin, cannot probe to bone, erythematous with some black eschar, about 3 mm by 2.5 mm); Negative: Cyanosis, Edema Neuro Exam: Positive: Normal Speech Psych Exam: Positive: Mental status NL, Mood NL, Oriented x 3 Assessment /Plan Assessment IMPRESSION & PLAN: 1. Complicated skin and soft tissue infection with deep tendon abscess MSSA -she continues on IV Cefazolin 1 gram every 12 hours. The patient will remain on IV antibiotics. -Scheduled this afternoon with podiatry for wound culture, she really didn't have a bone infection, it was infected deep tissue affecting the tendon sheath. -Unfortunately on exam today there was an area involving medial malleolus that appears to be a blister that has been unroofed, some area of eschar, blister is about 2.4 by 3 mm, erythematous, some serous fluid is draining, have spoken to podiatry and they will examine this when patient is taken to the OR tonight -WBC seems to slowly be improving -Angiogram with vascular showed moderate to significant stenosis and area of mid/distal superficial femoral artery and distal posterior tibial artery 2. Acute renal failure with superimposed chronic kidney disease -continues on dialysis, she is no longer SOB on exam -can continue with IV abx during HD sessions once d/c -she will likely be getting a right arm fistula with vascular surgery 3. MSSA bacteremia -related to her foot wound, third set of cultures have been negative after 5 days so far -she continues on IV cefazolin, s/p vancomycin, received dose today Plan/VTE VTE Prophylaxis Ordered?: Yes (SQ heparin) Plan Therapy: PT VS, I&O, 24H, Fishbone Vital Signs/I&O Vital Signs Date Time Temp Pulse Resp B/P (MAP) Pulse Ox O2 Delivery O2 Flow Rate FiO2 05/31/18 20:00 97.0 67 18 120/64 (82) 95 05/28/18 13:10 0.0 I&O- Last 24 Hours up to 6 AM 05/31/18 06:00 Intake Total 1320 ml Output Total 250 ml Balance 1070 ml Laboratory Data 24H LABS Laboratory Tests 2 05/31/18 04:57: Nucleated Red Blood Cells % (auto) 0.0, Blood Urea Nitrogen 35H, Creatinine 2.56H, Sodium Level 132L, Potassium Level 4.4, Chloride Level 99, Carbon Dioxide Level 27, Anion Gap 6L, Glomerular Filtration Rate 20.0L, Calcium Level 8.5L, Phosphorus Level 4.4, C-Reactive Protein, Quantitative 9.53H, Albumin 1.7L 05/31/18 12:07: Bedside Glucose (Misc Panel) 352H 05/31/18 16:46: Bedside Glucose (Misc Panel) 253H 05/31/18 21:03: Bedside Glucose (Misc Panel) 181H CBC/BMP Laboratory Tests 05/31/18 04:57 Red Blood Count 2.60 L, Mean Corpuscular Volume 98.5 H, Mean Corpuscular Hemoglobin 29.6, Mean Corpuscular Hemoglobin Concent 30.1 L, Red Cell Distribution Width 14.4, Anion Gap 6 L GME ATTESTATION GME ATTESTATION My faculty preceptor for this patient encounter was physically present during the encounter and was fully available. All aspects of the patient interview, examination, medical decision making process, and medical care plan development were reviewed and approved by the faculty preceptor. The faculty preceptor is aware and concurs with the plan as stated in the body of this note and will attest to such by his/her cosignature. JOLEEN MART DO May 31, 2018 21:48
[2018-05-31] MEDS: ASPIRIN 81 MG ENTERIC TAB PO SCH (22:31)
[2018-05-31] MEDS: ATORVASTATIN 20 MG TAB PO SCH (22:32)
[2018-05-31] MEDS: PANTOPRAZOLE 40MG TAB (PROTONIX) PO SCH (22:32)
[2018-05-31 23:59] VITALS: BP 144/60
--- NOTE | 2018-06-01 00:29 | RO ---
DATE OF PROCEDURE: 05/31/2018 PREPROCEDURE DIAGNOSIS: Stage IV wound medial and lateral left foot. POSTPROCEDURE DIAGNOSIS: Stage IV wound medial and lateral left foot. PROCEDURES PERFORMED: Excisional debridement through muscle, skin and subcutaneous tissue left foot with application of wound VAC. SURGEON: Dr. Roscoe Calixto DPM EMAIL MARKETING INTERN: None. ANESTHESIA: Local MAC IRRIGATION: Dilute vancomycin solution, 3 liters low pulse lavage system. ESTIMATED BLOOD LOSS: 10 mL. HEMOSTASIS: None. DESCRIPTION OF PROCEDURE: On 05/31/2018, this 67-year-old white female was taken from her hospital room to the operating room and placed on the operating table in the supine position. Following the induction of IV sedation and local and regional anesthesia, left lower extremity was prepped and draped in the usual aseptic manner. Attention was directed to the patient's left foot and utilizing a Rodríguez dermal curette, incision was made, including the entire skin margin through the subcutaneous tissues and muscle, which was debrided. Tendon sheath was debrided as well. There was no purulence along the entire tendon sheath. This wound measures 15.5 cm by 2.0 cm by 0.7 cm. There was a small wound noted on the medial side. This measured 0.8cm by 1.0cm by 0.3 cm. This was debrided through the subcutaneous tissues. It did not probe to bone. There was no purulence noted in that location. After debridement, utilizing three liters of dilute vancomycin solution with a low pressure pulse lavage system, the entire wound on the medial and lateral side was lavaged. White foam was placed along the tendinous structures on the left foot, followed by black foam. There was a central bridge extending to the medial heel wound. Utilizing black foam, the VAC was turned on and set to 175 mmHg, high intensity continuous at 175 mmHg. Orders written to change on Thursday, Thursday, and Thursday. [facility]
[2018-06-01 04:00] VITALS: BP 130/64
[2018-06-01 05:37] LABS: HEMATOCRIT 26.6 % (36.0-47.0); HEMOGLOBIN 8.3 g/dl (12.0-15.5); MEAN CORPUSCULAR HEMOGLOBIN 29.6 pg (27.0-33.0); MEAN CORPUSCULAR HGB CONC 31.2 g/dl (32.0-36.5); PLATELET COUNT, AUTOMATED 231 10^3/uL (150-450); WHITE BLOOD COUNT 8.9 10^3/uL (4.0-10.0)
[2018-06-01] MEDS: HEPARIN SOD (PORCINE) 5000 UNITS/ML VIAL SC SCH ×3 (06:02→21:11)
[2018-06-01] MEDS: CALCITRIOL 0.25 MCG CAP (S0169) PO SCH (06:02)
[2018-06-01] MEDS: SLF 3 ML SYR IV SCH ×3 (06:02→21:21)
[2018-06-01] MEDS: PARoxetine 20 MG TAB PO SCH (06:02)
[2018-06-01] MEDS: CARVedilol 12.5 MG TAB PO SCH ×2 (06:03→21:11)
[2018-06-01] MEDS: ceFAZolin SOD 1 GM in D5W MINI-BAG PLUS 50 ML IV SCH (06:04)
[2018-06-01 06:07] LABS: ALBUMIN 1.7 GM/DL (3.2-5.2); C REACTIVE PROTEIN QUANTITATIV 8.35 MG/DL (0.00-0.30); CALCIUM LEVEL 8.7 MG/DL (8.8-10.2); CREATININE FOR GFR 2.26 MG/DL (0.55-1.30); GLOMERULAR FILTRATION RATE 23.1 (>45); PHOSPHORUS LEVEL 4.8 MG/DL (2.5-4.9); POTASSIUM SERUM 4.2 MEQ/L (3.5-5.1)
[2018-06-01 08:00] VITALS: BP 155/59
--- NOTE | 2018-06-01 09:43 | IPNPDOC ---
Subjective Date Seen The patient was seen on 06/01/18. Subjective Chief Complaint/HPI Pt this morning without new concerns. She had debridement and wound vac placed last night with Dr Calixto. NUrsing reports struggling with IV access. General: Denies: Fatigue Constitutional: Denies: Chills, Fever Skin: Denies: Rash Pulmonary: Denies: Dyspnea, Cough Cardiovascular: Denies: Chest Pain, Palpitations Gastrointestinal: Denies: Nausea, Vomiting, Diarrhea Neurological: Denies: Weakness Psych: Reports: Mood Normal Objective Physical Examination General Exam: Positive: Alert, Cooperative, No Acute Distress ENT Exam: Positive: Mucous membr. moist/pink Chest Exam: Positive: Clear to auscultation, Diminished (2/2 to body habitus); Negative: Wheezing Heart Exam: Positive: Rate Normal, Normal S1, Normal S2; Negative: Gallops, Murmurs, Rubs Abdomen Exam: Positive: Normal bowel sounds, Soft; Negative: Tenderness Extremity Exam: Positive: Normal pulses; Negative: Cyanosis, Edema Neuro Exam: Positive: Normal Speech Psych Exam: Positive: Mental status NL, Mood NL Assessment /Plan Problems (1) Anemia in chronic kidney disease Status: Acute Problem Text: continues Aranesp/IV Fe c dialysis 06/01 Hgb 8.3 cont to monitor. 05/31 down to 7.7, sp 1u-recheck HO 05/25 sp 2u PRBCs 05/20/18 HO- 05/28 B12 191 (2) Diabetic foot infection Status: Acute Problem Text: 06/01 WBC has normalized, CRP cont to trend down. Cont with Cefazolin/Vanco per ID, likely will need PICC. 05/31 plan for wound closure in OR this afternoon, will need wound vac - per Podiatry. WBC 10.7, slightly lower than yest, CRP consistently trending down. D13 cefazolin (per ID) Complicated MSSA skin and soft tissue infection MSSA with an abscess along the common peroneal tendon sheath 05/31 attempted wound closure by Noelle 05/30 AF, but WBC down to 11.0 (05/28 14.4), CRP 10.9 (05/26 15) 05/21 S/P exploration and packing by Dr. Calixto (3) Acute renal failure superimposed on chronic kidney disease Problem Text: HD as per Nephro plan possible dc home p 06/01 dialysis R forearm fistula by Byron Drummond (4) Nausea Status: Resolved Response to Treatment: Stable Problem Text: favor 2 uremic gastritis improved c dialysis, off Fe, + panto 40 QD 05/28 05/29 H pylori P (5) Diastolic CHF Status: Chronic Problem Text: Euvolemic sp HD (6) DM2 (diabetes mellitus, type 2) Status: Chronic Problem Text: BGs mid 100s on i det 20/25 c SSLI (HD i glar 70/60!) (7) HTN (hypertension) Status: Chronic Problem Text: Good control on carve 12.5 BID, ISMN 30, francie 25 (8) UTI (urinary tract infection) Status: Resolved Problem Text: No recurrent symptoms 05/17/18 UCX NG (9) MSSA (methicillin susceptible Staphylococcus aureus) septicemia Status: Acute Problem Text: 2 foot wound 05/19, 05/20/18 BCX1 each NG (10) Physical deconditioning Status: Chronic Problem Text: 06/01 needs new PT order placed, done today. 05/27 not safe to dc home Plan/VTE VTE Prophylaxis Ordered?: Yes (SQ heparin) Plan Therapy: PT VS, I&O, 24H, Fishbone Vital Signs/I&O Vital Signs Date Time Temp Pulse Resp B/P (MAP) Pulse Ox O2 Delivery O2 Flow Rate FiO2 06/01/18 08:00 97.9 61 17 155/59 (91) 95 05/28/18 13:10 0.0 I&O- Last 24 Hours up to 6 AM 06/01/18 06:00 Intake Total 871 ml Output Total 1160 ml Balance -289 ml Laboratory Data 24H LABS Laboratory Tests 2 05/31/18 12:07: Bedside Glucose (Misc Panel) 352H 05/31/18 16:46: Bedside Glucose (Misc Panel) 253H 05/31/18 21:03: Bedside Glucose (Misc Panel) 181H 06/01/18 05:06: Nucleated Red Blood Cells % (auto) 0.0, Blood Urea Nitrogen 38H, Creatinine 2.26H, Sodium Level 136, Potassium Level 4.2, Chloride Level 102, Carbon Dioxide Level 28, Anion Gap 6L, Glomerular Filtration Rate 23.1L, Calcium Level 8.7L, Phosphorus Level 4.8, C-Reactive Protein, Quantitative 8.35H, Albumin 1.7L CBC/BMP Laboratory Tests 06/01/18 05:06 Red Blood Count 2.80 L, Mean Corpuscular Volume 95.0, Mean Corpuscular Hemoglobin 29.6, Mean Corpuscular Hemoglobin Concent 31.2 L, Red Cell Distribution Width 14.7 H, Anion Gap 6 L MEGHAN VELÁSQUEZ PA-C Jun 01, 2018 09:43
[2018-06-01] MEDS: HumaLOG INSULIN (NovoLOG) PER UNIT SC SCH ×4 (09:50→21:20)
[2018-06-01] MEDS: LEVEMIR (INSULIN DETEMIR) 1 UNITS/0.01ML SC SCH ×2 (09:51→21:11)
[2018-06-01] MEDS: SPIRONOLACTONE 25 MG TAB PO SCH (10:07)
[2018-06-01] MEDS: ISOSORBIDE MON. (IMDUR) 30 MG XR TAB PO SCH (10:07)
[2018-06-01] MEDS: MAGNESIUM OXIDE 400 MG TAB (MAG-OX) PO SCH (10:07)
[2018-06-01] MEDS: GABAPENTIN 300 MG CAP PO SCH ×2 (10:07→21:07)
[2018-06-01 12:30] VITALS: BP 128/88
--- NOTE | 2018-06-01 13:06 | IPN ---
DATE OF SERVICE: 06/01/2018 SUBJECTIVE: The patient was seen and examined at the bedside today morning. She is afebrile, hemodynamically stable. Her renal function is actually stable. Today was her regular day of dialysis. However, her creatinine is fluctuating between 2.5-2.2. She went for a wound debridement yesterday, and she was found to have another large wound in the left foot, and she got a wound vacuum-assisted closure (VAC) placed on the left foot area. OBJECTIVE: VITAL SIGNS: Temperature is 97.9 degrees Fahrenheit, blood pressure 155/59, pulse is 61, respiratory rate of 17, saturating 95% on room air. INTAKE AND OUTPUT: Urine output recorded is 825 mL yesterday, 625 mL so far today since overnight. Weight in the bed scale is 126.7 kg. PHYSICAL EXAMINATION: GENERAL: The patient is awake, alert, oriented times three, lying in the bed, in no apparent distress. HEAD AND NECK EXAMINATION: Extraocular muscles intact. Pupils equally round and reactive to light. Mucous membranes are moist. Neck is supple. She has a right internal jugular (vein) (IJ) tunnel hemodialysis catheter. CARDIOVASCULAR: S1, S2, regular rate. About trace to 1+ edema of the bilateral lower extremities. RESPIRATORY: Chest is clear to auscultation bilaterally. Bilaterally good air entry. No rales or rhonchi. ABDOMEN: Soft, obese, positive bowel sound, nontender. MUSCULOSKELETAL: No clubbing or cyanosis. She has a wound VAC on the large left foot ulcer. Central nervous system (ARCHIVAL STUDIES PROFESSOR): No focal deficit. Power is 5/5 in all extremities. LABORATORY REVIEW: Complete blood count (CBC) showed a WBC of 8.9, hemoglobin 8.3, platelets are 231. Basic metabolic profile (BMP) showed sodium 136, potassium 4.2, chloride 102, bicarbonate 28, BUN 38, creatinine is 2.2 (it was 2.5 yesterday). CURRENT INPATIENT MEDICATIONS: The patient's medication were all reviewed by me. There is no significant change in her medications apart from opiate pain medications. I am restarting the torsemide 40 mg by mouth daily. ASSESSMENT AND PLAN: 1. Acute renal failure. The patient got a few sessions of hemodialysis. However, her creatinine has been staying in low dose for now. I am holding today's dialysis. I have restarted her torsemide. Continue the spironolactone. If her creatinine stays stable with the current diuretic, I would stop further hemodialysis sessions. 2. Anemia in renal failure and active infection. The patient got 1 unit of packed red blood cells (PRBC) transfusion. Her hemoglobin has responded well. She is also iron deficient. She was getting Venofer with hemodialysis. 3. Chronic diastolic congestive heart failure. Volume status was being optimized with dialysis. However, she is in positive fluid balance for the last 2 days. I have restarted the torsemide 40 mg daily. Continue current dose of spironolactone 25 mg, as well. 4. Infected left foot ulcer. The patient continues to be on intravenous (IV) Ancef, and she got left foot wound VAC, as well. 5. Hypertension with chronic kidney disease. Continue current dose of Coreg 12.5 mg by mouth twice a day and isosorbide 30 mg by mouth daily.
[2018-06-01] MEDS: TORSEMIDE 20 MG TAB PO SCH (13:29)
[2018-06-01 20:00] VITALS: BP 162/67
[2018-06-01] MEDS: PANTOPRAZOLE 40MG TAB (PROTONIX) PO SCH (21:07)
[2018-06-01] MEDS: ASPIRIN 81 MG ENTERIC TAB PO SCH (21:07)
[2018-06-01] MEDS: CEPHALEXIN 500 MG CAP PO SCH (21:07)
[2018-06-01] MEDS: CYCLOBENZAPRINE 10 MG TAB PO PRN (21:07)
[2018-06-01] MEDS: ATORVASTATIN 20 MG TAB PO SCH (21:07)
--- NOTE | 2018-06-01 21:34 | IPNPDOC ---
Subjective Date Seen The patient was seen on 06/01/18. Subjective Chief Complaint/HPI right foot ulcer General: Reports: Other Symptoms (no chills or fatigue) Pulmonary: Reports: Other Symptoms (no cough or sob) Cardiovascular: Reports: Other Symptoms (no chest pain) Gastrointestinal: Reports: Other Symptoms (no n/v or diarrhea ) Musculoskeletal: Reports: Foot Pain Objective Physical Examination General Exam: Positive: Alert, Cooperative, No Acute Distress ENT Exam: Positive: Mucous membr. moist/pink Chest Exam: Positive: Clear to auscultation, Diminished (2/2 to body habitus); Negative: Wheezing Heart Exam: Positive: Rate Normal, Normal S1, Normal S2; Negative: Gallops, Murmurs, Rubs Abdomen Exam: Positive: Normal bowel sounds, Soft; Negative: Tenderness Extremity Exam: Positive: Normal pulses; Negative: Cyanosis, Edema Skin Exam: Positive: Breakdown (right LE demonstrates current wrapping and wound vac, she is s/p surgery with podiatry) Neuro Exam: Positive: Normal Speech Psych Exam: Positive: Mental status NL, Mood NL, Oriented x 3 Assessment /Plan Assessment IMPRESSION & PLAN: 1. Complicated skin and soft tissue infection with deep tendon abscess MSSA -she continues on IV Cefazolin 1 gram every 12 hours, we will switch this today to PO Keflex renally dosed. -s/p surgery with podiatry, they could not close the wound, she remains with wound vac on today -WBC seems to slowly be improving -Angiogram with vascular showed moderate to significant stenosis and area of mid/distal superficial femoral artery and distal posterior tibial artery 2. Acute renal failure with superimposed chronic kidney disease -continues on dialysis, she is not SOB on exam -switching to PO keflex today -she will likely be getting a right arm fistula with vascular surgery 3. MSSA bacteremia -related to her foot wound, third set of cultures have been negative after 5 days so far -she continues on IV cefazolin today but that is being switched to PO Keflex, s/p vancomycin Plan/VTE VTE Prophylaxis Ordered?: Yes (SQ heparin) Plan Therapy: PT VS, I&O, 24H, Fishbone Vital Signs/I&O Vital Signs Date Time Temp Pulse Resp B/P (MAP) Pulse Ox O2 Delivery O2 Flow Rate FiO2 06/01/18 21:11 78 152/56 06/01/18 12:30 97.5 16 96 4/5/19 13:10 0.0 I&O- Last 24 Hours up to 6 AM 06/01/18 06:00 Intake Total 871 ml Output Total 1160 ml Balance -289 ml Laboratory Data 24H LABS Laboratory Tests 2 06/01/18 05:06: Nucleated Red Blood Cells % (auto) 0.0, Blood Urea Nitrogen 38H, Creatinine 2.26H, Sodium Level 136, Potassium Level 4.2, Chloride Level 102, Carbon Dioxide Level 28, Anion Gap 6L, Glomerular Filtration Rate 23.1L, Calcium Level 8.7L, Phosphorus Level 4.8, C-Reactive Protein, Quantitative 8.35H, Albumin 1.7L 06/01/18 12:22: Bedside Glucose (Misc Panel) 174H 06/01/18 16:37: Bedside Glucose (Misc Panel) 190H 06/01/18 20:14: Bedside Glucose (Misc Panel) 267H CBC/BMP Laboratory Tests 06/01/18 05:06 Red Blood Count 2.80 L, Mean Corpuscular Volume 95.0, Mean Corpuscular Hemoglobin 29.6, Mean Corpuscular Hemoglobin Concent 31.2 L, Red Cell Distribution Width 14.7 H, Anion Gap 6 L GME ATTESTATION GME ATTESTATION My faculty preceptor for this patient encounter was physically present during e encounter and was fully available. All aspects of the patient interview, examination, medical decision making process, and medical care plan development were reviewed and approved by the faculty preceptor. The faculty preceptor is aware and concurs with the plan as stated in the body of this note and will attest to such by his/her cosignature. JOLEEN MART DO Jun 01, 2018 21:34
[2018-06-02] VITALS: BP 158/65
[2018-06-02 04:00] VITALS: BP 170/81
[2018-06-02] MEDS: HEPARIN SOD (PORCINE) 5000 UNITS/ML VIAL SC SCH ×4 (05:28→21:06)
[2018-06-02 06:28] LABS: HEMATOCRIT 27.1 % (36.0-47.0); HEMOGLOBIN 8.4 g/dl (12.0-15.5); MEAN CORPUSCULAR VOLUME 96.8 fl (80.0-96.0); PLATELET COUNT, AUTOMATED 238 10^3/uL (150-450)
[2018-06-02 06:53] LABS: ALBUMIN 1.8 GM/DL (3.2-5.2); C REACTIVE PROTEIN QUANTITATIV 7.54 MG/DL (0.00-0.30); CALCIUM LEVEL 8.5 MG/DL (8.8-10.2); CREATININE FOR GFR 1.93 MG/DL (0.55-1.30); GLOMERULAR FILTRATION RATE 27.7 (>45); PHOSPHORUS LEVEL 4.7 MG/DL (2.5-4.9); POTASSIUM SERUM 4.7 MEQ/L (3.5-5.1)
[2018-06-02] MEDS: LEVEMIR (INSULIN DETEMIR) 1 UNITS/0.01ML SC SCH ×2 (08:30→21:06)
[2018-06-02] MEDS: HumaLOG INSULIN (NovoLOG) PER UNIT SC SCH ×4 (08:30→21:05)
[2018-06-02] MEDS: PARoxetine 20 MG TAB PO SCH (08:31)
[2018-06-02] MEDS: CARVedilol 12.5 MG TAB PO SCH ×2 (08:31→21:05)
[2018-06-02] MEDS: MAGNESIUM OXIDE 400 MG TAB (MAG-OX) PO SCH (08:31)
[2018-06-02] MEDS: TORSEMIDE 20 MG TAB PO SCH ×2 (08:31→18:25)
[2018-06-02] MEDS: CALCITRIOL 0.25 MCG CAP (S0169) PO SCH (08:31)
[2018-06-02] MEDS: ISOSORBIDE MON. (IMDUR) 30 MG XR TAB PO SCH (08:32)
[2018-06-02] MEDS: CEPHALEXIN 500 MG CAP PO SCH ×2 (08:32→21:04)
[2018-06-02] MEDS: SPIRONOLACTONE 25 MG TAB PO SCH (08:32)
[2018-06-02] MEDS: GABAPENTIN 300 MG CAP PO SCH ×2 (08:32→21:04)
--- NOTE | 2018-06-02 09:37 | IPNPDOC ---
Subjective Date Seen The patient was seen on 06/02/18. Subjective Chief Complaint/HPI Has resumed diuretics and stopped HD. Wound VAC in place. Working with PT. Changed to po Keflex by ID. Constitutional: Denies: Chills, Fever, Night Sweats Pulmonary: Denies: Dyspnea, Cough Cardiovascular: Denies: Chest Pain, Palpitations, Orthopnea, Paroxysmal Noc. Dyspnea, Lt Headedness Gastrointestinal: Denies: Nausea, Vomiting, Abdominal Pain, Diarrhea, Constipation Psych: Reports: Mood Normal; Denies: Depression, Memory Issues Objective Physical Examination General Exam: Positive: Alert, Cooperative, No Acute Distress ENT Exam: Positive: Mucous membr. moist/pink Chest Exam: Positive: Clear to auscultation, Diminished (2/2 to body habitus); Negative: Wheezing Heart Exam: Positive: Rate Normal, Normal S1, Normal S2; Negative: Gallops, Murmurs, Rubs Abdomen Exam: Positive: Normal bowel sounds, Soft; Negative: Tenderness Extremity Exam: Positive: Normal pulses; Negative: Cyanosis, Edema Skin Exam: Positive: Breakdown (wound vac in place. ) Neuro Exam: Positive: Normal Speech Psych Exam: Positive: Mental status NL, Mood NL, Oriented x 3 Assessment /Plan Problems (1) Acute renal failure superimposed on chronic kidney disease Problem Text: 06/02/18: improved Cr. Has stopped HD. home diuretics recently resumed. HD as per Nephro plan possible dc home p 06/01 dialysis R forearm fistula by Byron Drummond (2) Diabetic foot infection Status: Acute Problem Text: 06/02/18: On po antibiotic. Will start to work toward DC plans. Will review case with PFS. 06/01 WBC has normalized, CRP cont to trend down. Cont with Cefazolin/Vanco per ID, likely will need PICC. 05/31 plan for wound closure in OR this afternoon, will need wound vac - per Podiatry. WBC 10.7, slightly lower than yest, CRP consistently trending down. D13 cefazolin (per ID) Complicated MSSA skin and soft tissue infection MSSA with an abscess along the common peroneal tendon sheath 05/31 attempted wound closure by Noelle 05/30 AF, but WBC down to 11.0 (05/28 14.4), CRP 10.9 (05/26 15) 05/21 S/P exploration and packing by Dr. Calixto (3) MSSA (methicillin susceptible Staphylococcus aureus) septicemia Status: Acute Problem Text: 2 foot wound 05/19, 05/20/18 BCX1 each NG (4) Anemia in chronic kidney disease Status: Acute Problem Text: continues Aranesp/IV Fe c dialysis 06/01 Hgb 8.3 cont to monitor. 05/31 down to 7.7, sp 1u-recheck HO 05/25 sp 2u PRBCs 05/20/18 HO- 05/28 B12 1918 (5) Diastolic CHF Status: Chronic Problem Text: Euvolemic sp HD (6) DM2 (diabetes mellitus, type 2) Status: Chronic Problem Text: BGs mid 100s on i det 20 c SSLI (HD i glar 70/60!) (7) HTN (hypertension) Status: Chronic Problem Text: Good control on carve 12.5 BID, ISMN 30, francie 25 (8) UTI (urinary tract infection) Status: Resolved Problem Text: No recurrent symptoms 05/17/18 UCX NG (9) Physical deconditioning Status: Chronic Problem Text: 06/01 needs new PT order placed, done today. 05/27 not safe to dc home (10) Nausea Status: Resolved Response to Treatment: Stable Problem Text: favor 2 uremic gastritis improved c dialysis, off Fe, + panto 40 QD 05/28 05/29 H pylori P Plan/VTE VTE Prophylaxis Ordered?: Yes (SQ heparin) Plan Therapy: PT VS, I&O, 24H, Fishbone Vital Signs/I&O Vital Signs Date Time Temp Pulse Resp B/P (MAP) Pulse Ox O2 Delivery O2 Flow Rate FiO2 06/02/18 08:32 170/81 06/02/18 08:31 73 06/02/18 04:00 98.9 18 92 05/28/18 13:10 0.0 I&O- Last 24 Hours up to 6 AM 06/02/18 06:00 Intake Total 1250 ml Output Total 1350 ml Balance -100 ml Laboratory Data 24H LABS Laboratory Tests 2 06/01/18 12:22: Bedside Glucose (Misc Panel) 174H 06/01/18 16:37: Bedside Glucose (Misc Panel) 190H 06/01/18 20:14: Bedside Glucose (Misc Panel) 267H 06/02/18 05:25: Nucleated Red Blood Cells % (auto) 0.0, Blood Urea Nitrogen 42H, Creatinine 1.93H, Sodium Level 136, Potassium Level 4.7, Chloride Level 103, Carbon Dioxide Level 26, Anion Gap 7L, Glomerular Filtration Rate 27.7L, Calcium Level 8.5L, Phosphorus Level 4.7, C-Reactive Protein, Quantitative 7.54H, Albumin 1.8L CBC/BMP Laboratory Tests 06/02/18 05:25 Red Blood Count 2.80 L, Mean Corpuscular Volume 96.8 H, Mean Corpuscular Hemoglobin 30.0, Mean Corpuscular Hemoglobin Concent 31.0 L, Red Cell Distribution Width 14.6 H, Anion Gap 7 L July Cali EDITING INTERN Jun 02, 2018 09:37
[2018-06-02 10:00] VITALS: BP 158/67
[2018-06-02] MEDS: IRON SUCROSE 100 MG in NS 100 ML IV SCH (12:02)
[2018-06-02 14:00] VITALS: BP 157/67
[2018-06-02] MEDS: DARBEPOETIN 100 MCG/0.5 ML *NON-DIALYSIS* SYRINGE (J0881) SC SCH (14:59)
[2018-06-02 18:00] VITALS: BP 142/60
--- NOTE | 2018-06-02 18:45 | IPN ---
DATE: 06/02/2018 SUBJECTIVE: The patient was seen and examined at the bedside today morning. She is afebrile, hemodynamically stable. She is nonoliguric. She is responding to diuretics. Renal function is stable. Creatinine is actually slightly down to 1.9 today. Hemoglobin is also stable. She continues to have left foot wound vacuum-assisted closure (VAC). OBJECTIVE: VITAL SIGNS: Temperature is 97.3 degrees Fahrenheit, blood pressure 158/67, pulse is 67, respiratory rate of 18, saturating 97% on room air. INTAKE AND OUTPUT: Urine output recorded is 1125 mL yesterday, 550 mL so far today since overnight. Weight in the bed scale is 127.7 kg. PHYSICAL EXAMINATION: GENERAL: The patient is awake, alert, oriented times three, morbidly obese, sitting in the bed, in no apparent distress. HEAD AND NECK: Extraocular muscles intact. Pupils equally round and reactive to light. Mucous membranes are moist. Neck is supple. There is no jugular venous distention (JVD). CARDIOVASCULAR: S1, S2, regular rate, 2+ edema of the right lower extremity, 1+ edema of the left lower extremity. RESPIRATORY: Chest is clear to auscultation bilaterally. Bilateral equal air entry. No rales or rhonchi. ABDOMEN: Soft, obese, positive bowel sound, nontender. No organomegaly. MUSCULOSKELETAL: She has a wound vacuum-assisted closure (VAC) on the left foot, 2+ edema of the right lower extremity, 1+ left lower extremity as mentioned above. CENTRAL NERVOUS SYSTEM (KNIFE MACHINE OPERATOR): No focal deficit. Power is 5/5 in bilateral upper extremities. LABORATORY REVIEW: CBC showed a WBC of 8, hemoglobin is 8.4, platelets are 238. BMP showed sodium 136, potassium 4.7, chloride 103, bicarbonate 26, BUN 42, creatinine is 1.9, it was 2.2 yesterday, calcium 8.5, phosphorus is 4.7. CURRENT INPATIENT MEDICATIONS: The patient's medications were all reviewed by me. I have started the patient on Venofer 100 mg IV daily times four doses. I have started her on Aranesp 100 mcg subcutaneous on Wednesdays. I have also increased the dose of torsemide to 40 mg by mouth twice a day. ASSESSMENT AND PLAN: 1. Acute renal failure, superimposed on chronic kidney disease. The patient required a few sessions of hemodialysis. Her last dialysis session was on 05/29/2018 and four days after dialysis, her renal function is stable. Creatinine is fluctuating close to 2. I am holding the dialysis. Volume status is being managed with diuresis. 2. Chronic diastolic congestive heart failure. Volume status is still decompensated. She has 2+ edema in the extremities. I have increased the torsemide dose to 40 mg by mouth twice a day. Continue current dose of spironolactone. If she does not respond well to the diuretics then we might have to resume hemodialysis. 3. Anemia in chronic kidney disease and iron deficiency. I have started the patient on Venofer 100 mg IV daily and I have also started her on Aranesp 100 mcg subcutaneous once a week. 4. Infected left foot ulcer. The patient currently has a wound vacuum-assisted closure (VAC). IV Ancef has been stopped and the patient is currently on Keflex 500 mg by mouth twice a day. 5. Hypertension with chronic kidney disease. Continue current dose of Coreg and isosorbide. With improvement of volume status, the patient's blood pressures will get better.
[2018-06-02] MEDS: PANTOPRAZOLE 40MG TAB (PROTONIX) PO SCH (21:04)
[2018-06-02] MEDS: ASPIRIN 81 MG ENTERIC TAB PO SCH (21:04)
[2018-06-02] MEDS: ATORVASTATIN 20 MG TAB PO SCH (21:04)
[2018-06-02] MEDS: CYCLOBENZAPRINE 10 MG TAB PO PRN (21:14)
[2018-06-02 22:00] VITALS: BP 157/62
[2018-06-03 02:00] VITALS: BP 149/62
[2018-06-03] MEDS: HEPARIN SOD (PORCINE) 5000 UNITS/ML VIAL SC SCH ×3 (05:38→20:54)
[2018-06-03 06:00] VITALS: BP 148/62
[2018-06-03 06:17] LABS: HEMATOCRIT 27.9 % (36.0-47.0); HEMOGLOBIN 8.6 g/dl (12.0-15.5); MEAN CORPUSCULAR HEMOGLOBIN 29.4 pg (27.0-33.0); MEAN CORPUSCULAR HGB CONC 30.8 g/dl (32.0-36.5); MEAN CORPUSCULAR VOLUME 95.2 fl (80.0-96.0); PLATELET COUNT, AUTOMATED 257 10^3/uL (150-450); RED BLOOD COUNT 2.93 10^6/uL (4.00-5.40); WHITE BLOOD COUNT 7.2 10^3/uL (4.0-10.0)
[2018-06-03 06:50] LABS: ALBUMIN 1.8 GM/DL (3.2-5.2); CALCIUM LEVEL 9.1 MG/DL (8.8-10.2); CREATININE FOR GFR 2.09 MG/DL (0.55-1.30); GLOMERULAR FILTRATION RATE 25.3 (>45); PHOSPHORUS LEVEL 5.1 MG/DL (2.5-4.9); POTASSIUM SERUM 4.3 MEQ/L (3.5-5.1)
[2018-06-03 08:00] VITALS: BP 150/70
[2018-06-03] MEDS: LEVEMIR (INSULIN DETEMIR) 1 UNITS/0.01ML SC SCH ×2 (08:24→20:55)
[2018-06-03] MEDS: HumaLOG INSULIN (NovoLOG) PER UNIT SC SCH ×4 (08:24→20:55)
--- NOTE | 2018-06-03 08:42 | IPN ---
DATE: 06/02/2018 CHIEF COMPLAINT: Patient seen at bedside for evaluation of a wound with wound vac. The wound vac was removed by the nursing staff. They were concerned about an area of blister formation and maceration. There was a blister on the posterior aspect of the heel which measures approximately 2 cm x 1.5 cm which was superficial les than 0.1 cm in depth. The medial ulcer has some maceration around this but the ulcer is unchanged in size but does display granulation tissue. This ulceration on the lateral side of the foot measures approximately 0.8 cm x 1.0 cm x 0.3 cm in depth with granulation tissue around the margins with no discharge. The lateral ulcer measures approximately 15.5 cm x 2.0 cm. It is approximately 0.77 mm in depth with good granulation tissue not evident. The skin is irritated from the vac with some redness but the skin contour is intact. Maceration of the wound with new blister formation on the posterior heel. Laboratory studies were reviewed revealing a white count of 8.0, c-reactive protein of 7.54 ASSESSMENT: Granulating wound medial and lateral aspects of the foot with new ulcer on the inferior heel with resolving infection. PLAN: Since the vac is irritating the heel and macerating the wound it was decided to switch to a foam dressing on the medial inferior aspects of the foot typically on the leave in type foam and the wound vac was again applied on the lateral aspect of the foot. However since just the lateral aspect was vaced, considerably less draping was needed. Hopefully this will deal with the maceration issue. A white foam followed a black composite foam was applied to the patient's foot. The wound vac was activated at 175 mmHg. High intensity continuous pressure. The vac was functioning satisfactorily. We discussed with the patient if she has any issues to let us know or if there is any itching or signs of reaction. Otherwise the vac will be removed Thursday by myself to inspect the wound and assess it progress. All of her questions were answered.
--- NOTE | 2018-06-03 08:58 | IPNPDOC ---
Subjective Date Seen The patient was seen on 06/03/18. Subjective Chief Complaint/HPI Pt this morning without new concerns. She is hopeful that she will not need dialysis. General: Denies: Fatigue Constitutional: Denies: Chills, Fever Pulmonary: Denies: Dyspnea, Cough Cardiovascular: Denies: Chest Pain, Palpitations Gastrointestinal: Denies: Nausea, Vomiting, Abdominal Pain, Diarrhea Neurological: Denies: Weakness Psych: Reports: Mood Normal Objective Physical Examination General Exam: Positive: Alert, Cooperative, No Acute Distress ENT Exam: Positive: Mucous membr. moist/pink Chest Exam: Positive: Clear to auscultation, Diminished (2/2 to body habitus); Negative: Wheezing Heart Exam: Positive: Rate Normal, Normal S1, Normal S2; Negative: Gallops, Murmurs, Rubs Abdomen Exam: Positive: Normal bowel sounds, Soft; Negative: Tenderness Extremity Exam: Positive: Normal pulses; Negative: Cyanosis, Edema Skin Exam: Positive: Breakdown (wound vac in place. ) Neuro Exam: Positive: Normal Speech Psych Exam: Positive: Mental status NL, Mood NL, Oriented x 3 Assessment /Plan Problems (1) Acute renal failure superimposed on chronic kidney disease Problem Text: 06/03 Scr 2.09 this morning increased from 1.93 yest, dialysis has been stopped, given Lasix yesterday per nephro. 06/02/18: improved Cr. Has stopped HD. home diuretics recently resumed. HD as per Nephro plan possible dc home p 06/01 dialysis R forearm fistula by Byron Drummond (2) Diabetic foot infection Status: Acute Problem Text: 06/03 Dr Calixto plans to look at foot tomorrow, removing wound vac and make further recommendations, can work on d/c plan from there. 06/02/18: On po antibiotic. Will start to work toward DC plans. Will review case with PFS. 06/01 WBC has normalized, CRP cont to trend down. Cont with Cefazolin/Vanco per ID, likely will need PICC. 05/31 plan for wound closure in OR this afternoon, will need wound vac - per P odiatry. WBC 10.7, slightly lower than yest, CRP consistently trending down. D13 cefazolin (per ID) Complicated MSSA skin and soft tissue infection MSSA with an abscess along the common peroneal tendon sheath 05/31 attempted wound closure by Noelle 05/30 AF, but WBC down to 11.0 (05/28 14.4), CRP 10.9 (05/26 15) 05/21 S/P exploration and packing by Dr. Calixto (3) MSSA (methicillin susceptible Staphylococcus aureus) septicemia Status: Acute Problem Text: 2 foot wound 05/19, 05/20/18 BCX1 each NG (4) Anemia in chronic kidney disease Status: Chronic Problem Text: continues Aranesp/IV Fe c dialysis 06/01 Hgb 8.3 cont to monitor. 05/31 down to 7.7, sp 1u-recheck HO 05/25 sp 2u PRBCs 05/20/18 HO- 05/28 B12 1918 (5) Diastolic CHF Status: Chronic Problem Text: Euvolemic sp HD (6) DM2 (diabetes mellitus, type 2) Status: Chronic Problem Text: BGs mid 100s on i det 20 c SSLI (HD i glar 70/60!) (7) HTN (hypertension) Status: Chronic Problem Text: Good control on carve 12.5 BID, ISMN 30, francie 25 (8) UTI (urinary tract infection) Status: Resolved Problem Text: No recurrent symptoms 05/17/18 UCX NG (9) Physical deconditioning Status: Chronic Problem Text: 06/01 needs new PT order placed, done today. 05/27 not safe to dc home (10) Nausea Status: Resolved Response to Treatment: Stable Problem Text: favor 2 uremic gastritis improved c dialysis, off Fe, + panto 40 QD 05/28 05/29 H pylori P Plan/VTE VTE Prophylaxis Ordered?: Yes (SQ heparin) Plan Therapy: PT VS, I&O, 24H, Fishbone Vital Signs/I&O Vital Signs Date Time Temp Pulse Resp B/P (MAP) Pulse Ox O2 Delivery O2 Flow Rate FiO2 06/03/18 06:00 97.2 65 18 148/62 (90) 95 05/28/18 13:10 0.0 I&O- Last 24 Hours up to 6 AM 06/03/18 06:00 Intake Total 1005 ml Output Total 325 ml Balance 680 ml Laboratory Data 24H LABS Laboratory Tests 2 06/02/18 12:34: Bedside Glucose (Misc Panel) 189H 06/02/18 17:54: Bedside Glucose (Misc Panel) 268H 06/02/18 20:17: Bedside Glucose (Misc Panel) 280H 06/03/18 05:32: Nucleated Red Blood Cells % (auto) 0.0, Blood Urea Nitrogen 45H, Creatinine 2.09H, Sodium Level 138, Potassium Level 4.3, Chloride Level 102, Carbon Dioxide Level 29, Anion Gap 7L, Glomerular Filtration Rate 25.3L, Calcium Level 9.1, Phosphorus Level 5.1H, Albumin 1.8L 06/03/18 06:18: Bedside Glucose (Misc Panel) 188H CBC/BMP Laboratory Tests 06/03/18 05:32 Red Blood Count 2.93 L, Mean Corpuscular Volume 95.2, Mean Corpuscular Hemoglobin 29.4, Mean Corpuscular Hemoglobin Concent 30.8 L, Red Cell Distribution Width 14.3, Anion Gap 7 L MEGHAN VELÁSQUEZ PA-C Jun 03, 2018 08:58
[2018-06-03] MEDS: CALCITRIOL 0.25 MCG CAP (S0169) PO SCH (09:44)
[2018-06-03] MEDS: TORSEMIDE 20 MG TAB PO SCH ×2 (09:45→17:17)
[2018-06-03] MEDS: SPIRONOLACTONE 25 MG TAB PO SCH (09:46)
[2018-06-03] MEDS: GABAPENTIN 300 MG CAP PO SCH ×2 (09:46→20:55)
[2018-06-03] MEDS: PARoxetine 20 MG TAB PO SCH (09:46)
[2018-06-03] MEDS: ISOSORBIDE MON. (IMDUR) 30 MG XR TAB PO SCH (09:47)
[2018-06-03] MEDS: CARVedilol 12.5 MG TAB PO SCH ×2 (09:48→20:56)
[2018-06-03] MEDS: CEPHALEXIN 500 MG CAP PO SCH ×2 (09:48→20:56)
[2018-06-03] MEDS: MAGNESIUM OXIDE 400 MG TAB (MAG-OX) PO SCH (09:49)
[2018-06-03] MEDS: IRON SUCROSE 100 MG in NS 100 ML IV SCH (09:50)
--- NOTE | 2018-06-03 11:40 | IPN ---
DATE OF SERVICE: 06/03/2018 SUBJECTIVE: The patient was seen and examined at the bedside today morning. She is sitting on the sofa. She continues to have wound vacuum-assisted closure (VAC) in the left foot. She is diuresing well with the diuretics. Renal function is stable. Creatinine is fluctuating close to 2. She is afebrile and hemodynamically stable. OBJECTIVE: VITAL SIGNS: Temperature is 97.3 degrees Fahrenheit, blood pressure 150/70, pulse is 70, respiratory rate of 18, saturating 98% on room air. INTAKE AND OUTPUT: Urine output recorded is 875 mL yesterday. No urine output recorded today, but patient reports that she is not voiding in the urinal. Weight in the bed scale is 125 kg which is 2 kg below her weight yesterday. PHYSICAL EXAMINATION: GENERAL: The patient is awake, alert, oriented times three, morbidly obese, sitting up on the soft, in no apparent distress. HEAD AND NECK: Extraocular muscles intact. Pupils equally round and reactive to light. Mucous membranes are moist. Neck is supple. There is no jugular venous distention (JVD). She has a right internal jugular (IJ) tunnel hemodialysis catheter. CARDIOVASCULAR: S1, S2, regular rate, 2+ edema of the right lower extremity, 1+ edema of the left lower extremity. RESPIRATORY: Chest is clear to auscultation bilaterally. Bilateral equal air entry. No rales or rhonchi. ABDOMEN: Soft, obese, positive bowel sound, nontender. No organomegaly. MUSCULOSKELETAL: She has a wound vacuum-assisted closure (VAC) on the left foot, edema in the bilateral lower extremities as mentioned above. CENTRAL NERVOUS SYSTEM (TAPE STRINGER): No focal deficit. Power is 5/5 in all extremities. LABORATORY REVIEW: CBC showed a WBC of 7.2, hemoglobin is 9.6, platelets are 257. BMP showed sodium 138, potassium 4.3, chloride 102, bicarbonate 29, BUN 45, creatinine is 2, phosphorus is 5.1, albumin is 1.8. CURRENT INPATIENT MEDICATIONS: The patient's medications were all reviewed by me. She continues to be on torsemide 40 mg by mouth twice as day. She is receiving daily IV Venofer, today is the second dose being given. No other change in the medications today as compared with yesterday. ASSESSMENT AND PLAN: 1. Acute renal failure, superimposed on chronic kidney disease. The patient briefly required a few sessions of hemodialysis. Her last dialysis session was on 05/29/2018. She is responding to the diuretics and renal function is stable with creatinine fluctuating around 2. Continue to hold hemodialysis for now. 2. Chronic diastolic congestive heart failure. Her volume status is improving. Weight is getting better. Continue torsemide 40 mg by mouth twice a day and spironolactone 25 mg by mouth daily. 3. Anemia in chronic kidney disease and iron deficiency. Patient continues to be on IV Venofer. Hemoglobin has improved to 8.6. She is also getting Aranesp 100 mcg subcutaneous once a week. 4. Infected left foot ulcer. She currently has a wound vacuum-assisted closure (VAC) and she is on Keflex 500 mg by mouth twice a day. Rest of the management is as per primary team and ID recommendations. 5. Hypertension with chronic kidney disease. Continue current dose of Coreg and isosorbide. Blood pressure is improving with improvement in the volume status.
[2018-06-03 12:00] VITALS: BP 148/68
[2018-06-03 16:00] VITALS: BP 150/67
[2018-06-03] MEDS ORDERED: VANCOMYCIN HCL 1,000 MG, VIAL MATE ADAPTER 1 EACH in D5W 250 ML IV ONE (17:00)
[2018-06-03] MEDS: CYCLOBENZAPRINE 10 MG TAB PO PRN (20:56)
[2018-06-03] MEDS: ATORVASTATIN 20 MG TAB PO SCH (20:56)
[2018-06-03] MEDS: ASPIRIN 81 MG ENTERIC TAB PO SCH (20:56)
[2018-06-03] MEDS: PANTOPRAZOLE 40MG TAB (PROTONIX) PO SCH (20:56)
[2018-06-03] MEDS: VANCOMYCIN HCL 1,000 MG, VIAL MATE ADAPTER 1 EACH in D5W 250 ML IV SCH (20:57)
[2018-06-03 22:00] VITALS: BP 141/72
--- NOTE | 2018-06-03 22:21 | IPNPDOC ---
Subjective Date Seen The patient was seen on 06/03/18. Subjective Chief Complaint/HPI right foot pain and swelling General: Reports: Other Symptoms (denies muscle aches, chills or fever) Skin: Reports: Breakdown (right LE) Pulmonary: Reports: Other Symptoms (denies cough or SOB) Cardiovascular: Reports: Other Symptoms (denies CP, palpitations) Gastrointestinal: Reports: Other Symptoms (no n/v/diarrhea) Objective Physical Examination General Exam: Positive: Alert, Cooperative, No Acute Distress ENT Exam: Positive: Mucous membr. moist/pink Chest Exam: Positive: Clear to auscultation, Diminished (2/2 to body habitus); Negative: Wheezing Heart Exam: Positive: Rate Normal, Normal S1, Normal S2; Negative: Gallops, Murmurs, Rubs Abdomen Exam: Positive: Normal bowel sounds, Soft; Negative: Tenderness Extremity Exam: Positive: Normal pulses; Negative: Cyanosis, Edema Skin Exam: Positive: Breakdown (wound vac is in place on LE lateral aspect , also on medial aspect of mallelous a blister, I did obtain clutre wound for no) Neuro Exam: Positive: Normal Speech Psych Exam: Positive: Mental status NL, Mood NL, Oriented x 3 Assessment /Plan Assessment IMPRESSION & PLAN: 1. Complicated skin and soft tissue infection with deep tendon abscess MSSA -she continues on PO Keflex renally dosed, is s/p IV Cefazolin 1 gram every 12 hours -s/p surgery with podiatry, they could not close the wound, she remains with wound vac on today, will be changed tomorrow per [facility] schedule of patient -WBC seems to slowly be improving -wound culture from opened blister performed today, will receive one dose VANCO for possible MRSA for this new site, await culture results to continue Vanco. -Angiogram with vascular showed moderate to significant stenosis and area of mid/distal superficial femoral artery and distal posterior tibial artery 2. Acute renal failure with superimposed chronic kidney disease -Dialysis has been on hold due to improving kidney function, she is not SOB on exam -C/W PO keflex today -she will likely be getting a right arm fistula with vascular surgery in the near future 3. MSSA bacteremia -related to her foot wound, third set of cultures have been negative after 5 days so far -she is s/p IV cefazolin bu today continues on PO Keflex Plan/VTE VTE Prophylaxis Ordered?: Yes (SQ heparin) Plan Therapy: PT VS, I&O, 24H, Fishbone Vital Signs/I&O Vital Signs Date Time Temp Pulse Resp B/P (MAP) Pulse Ox O2 Delivery O2 Flow Rate FiO2 06/03/18 20:56 40 150/67 06/03/18 16:00 98.0 18 97 05/28/18 13:10 0.0 I&O- Last 24 Hours up to 6 AM 06/03/18 06:00 Intake Total 1005 ml Output Total 325 ml Balance 680 ml Laboratory Data 24H LABS Laboratory Tests 2 06/03/18 05:32: Nucleated Red Blood Cells % (auto) 0.0, Blood Urea Nitrogen 45H, Creatinine 2.09H, Sodium Level 138, Potassium Level 4.3, Chloride Level 102, Carbon Dioxide Level 29, Anion Gap 7L, Glomerular Filtration Rate 25.3L, Calcium Level 9.1, Phosphorus Level 5.1H, Albumin 1.8L 06/03/18 06:18: Bedside Glucose (Misc Panel) 188H 06/03/18 11:52: Bedside Glucose (Misc Panel) 202H 06/03/18 16:51: Bedside Glucose (Misc Panel) 253H 06/03/18 19:39: Bedside Glucose (Misc Panel) 266H CBC/BMP Laboratory Tests 06/03/18 05:32 Red Blood Count 2.93 L, Mean Corpuscular Volume 95.2, Mean Corpuscular Hemoglobin 29.4, Mean Corpuscular Hemoglobin Concent 30.8 L, Red Cell Distribution Width 14.3, Anion Gap 7 L Microbiology Microbiology 06/03/18 Gram Stain, Received Pending 06/03/18 Wound Culture, Received Pending GME ATTESTATION GME ATTESTATION My faculty preceptor for this patient encounter was physically present during the encounter and was fully available. All aspects of the patient interview, examination, medical decision making process, and medical care plan development were reviewed and approved by the faculty preceptor. The faculty preceptor is aware and concurs with the plan as stated in the body of this note and will attest to such by his/her cosignature. JOLEEN MART DO Jun 03, 2018 22:21
[2018-06-04 02:00] VITALS: BP 145/67
[2018-06-04] MEDS: HEPARIN SOD (PORCINE) 5000 UNITS/ML VIAL SC SCH ×3 (05:36→22:08)
[2018-06-04 06:00] VITALS: BP 139/58
[2018-06-04 06:17] LABS: HEMATOCRIT 27.5 % (36.0-47.0); HEMOGLOBIN 8.5 g/dl (12.0-15.5); MEAN CORPUSCULAR HEMOGLOBIN 29.4 pg (27.0-33.0); MEAN CORPUSCULAR HGB CONC 30.9 g/dl (32.0-36.5); MEAN CORPUSCULAR VOLUME 95.2 fl (80.0-96.0); PLATELET COUNT, AUTOMATED 243 10^3/uL (150-450); RED BLOOD COUNT 2.89 10^6/uL (4.00-5.40); WHITE BLOOD COUNT 7.4 10^3/uL (4.0-10.0)
[2018-06-04 06:49] LABS: CALCIUM LEVEL 8.4 MG/DL (8.8-10.2); CREATININE FOR GFR 2.25 MG/DL (0.55-1.30); GLOMERULAR FILTRATION RATE 23.2 (>45); POTASSIUM SERUM 4.5 MEQ/L (3.5-5.1)
[2018-06-04 08:35] VITALS: BP 158/70
--- NOTE | 2018-06-04 09:18 | IPNPDOC ---
Subjective Date Seen The patient was seen on 06/04/18. Subjective Chief Complaint/HPI Pt this morning reports that she isn't feeling herself. Feels like she might be coming down with something. Denies SOB, but thinks she might have pleurisy because she has pain in her R upper back which is sometimes worsened by deep breathing. She describes the pain as sharp. General: Denies: Fatigue Constitutional: Denies: Chills, Fever ENT: Denies: Head Aches Pulmonary: Denies: Dyspnea, Cough Cardiovascular: Denies: Chest Pain, Palpitations Gastrointestinal: Denies: Nausea, Vomiting, Diarrhea Musculoskeletal: Reports: Back Pain (see HPI) Psych: Reports: Mood Normal Objective Physical Examination General Exam: Positive: Alert, Cooperative, No Acute Distress ENT Exam: Positive: Mucous membr. moist/pink Chest Exam: Positive: Clear to auscultation, Diminished Heart Exam: Positive: Rate Normal, Normal S1, Normal S2 Abdomen Exam: Positive: Normal bowel sounds, Soft Extremity Exam: Positive: Normal pulses Skin Exam: Positive: Breakdown Neuro Exam: Positive: Normal Speech Psych Exam: Positive: Mental status NL, Mood NL, Oriented x 3 Assessment /Plan Problems (1) Acute renal failure superimposed on chronic kidney disease Problem Text: 06/04 Scr 2.25 cont to rise, Nephro is following, pt cont to have good urine output. Net Neg -725 06/03 06/03 Scr 2.09 this morning increased from 1.93 yest, dialysis has been stopped, given Lasix yesterday per nephro. 06/02/18: improved Cr. Has stopped HD. home diuretics recently resumed. HD as per Nephro plan possible dc home p 06/01 dialysis R forearm fistula by Byron Drummond (2) Diabetic foot infection Status: Acute Problem Text: 06/04 Pod to assess after removal of wound vac today, await recommendations. 06/03 Dr Calixto plans to look at foot tomorrow, removing wound vac and make further recommendations, can work on d/c plan from there. 06/02/18: On po antibiotic. Will start to work toward DC plans. Will review case with PFS. 06/01 WBC has normalized, CRP cont to trend down. Cont with Cefazolin/Vanco per ID, likely will need PICC. 05/31 plan for wound closure in OR this afternoon, will need wound vac - per Podiatry. WBC 10.7, slightly lower than yest, CRP consistently trending down. D13 cefazolin (per ID) Complicated MSSA skin and soft tissue infection MSSA with an abscess along the common peroneal tendon sheath 05/31 attempted wound closure by Noelle 05/30 AF, but WBC down to 11.0 (05/28 14.4), CRP 10.9 (05/26 15) 05/21 S/P exploration and packing by Dr. Calixto (3) MSSA (methicillin susceptible Staphylococcus aureus) septicemia Status: Acute Problem Text: 06/04 repeat wound culture obtained 06/03 05/19, 05/20/18 BCX1 each NG (4) Anemia in chronic kidney disease Status: Chronic Problem Text: continues Aranesp/IV Fe c dialysis 06/01 Hgb 8.3 cont to monitor. 05/31 down to 7.7, sp 1u-recheck HO 05/25 sp 2u PRBCs 05/20/18 HO- 05/28 B12 1918 (5) Diastolic CHF Status: Chronic Problem Text: Euvolemic sp HD (6) DM2 (diabetes mellitus, type 2) Status: Chronic Problem Text: BGs mid 100s on i det c SSLI (HD i glar 70/60!) (7) HTN (hypertension) Status: Chronic Problem Text: Good control on carve 12.5 BID, ISMN 30, francie 25 (8) UTI (urinary tract infection) Status: Resolved Problem Text: No recurrent symptoms 05/17/18 UCX NG (9) Physical deconditioning Status: Chronic Problem Text: 06/01 needs new PT order placed, done today. 05/27 not safe to dc home (10) Nausea Status: Resolved Response to Treatment: Stable Problem Text: favor 2 uremic gastritis improved c dialysis, off Fe, + panto 40 QD 05/28 46 H pylori P Plan/VTE VTE Prophylaxis Ordered?: Yes (SQ heparin) Plan Therapy: PT VS, I&O, 24H, Fishbone Vital Signs/I&O Vital Signs Date Time Temp Pulse Resp B/P (MAP) Pulse Ox O2 Delivery O2 Flow Rate FiO2 06/04/18 08:35 97.5 66 20 158/70 (99) 95 I&O- Last 24 Hours up to 6 AM 06/04/18 06:00 Intake Total 1440 ml Output Total 2475 ml Balance -1035 ml Laboratory Data 24H LABS Laboratory Tests 2 06/03/18 11:52: Bedside Glucose (Misc Panel) 202H 06/03/18 16:51: Bedside Glucose (Misc Panel) 253H 06/03/18 19:39: Bedside Glucose (Misc Panel) 266H 06/04/18 05:21: Nucleated Red Blood Cells % (auto) 0.0, Blood Urea Nitrogen 50H, Creatinine 2.25H, Sodium Level 137, Potassium Level 4.5, Chloride Level 101, Carbon Dioxide Level 28, Anion Gap 8, Glomerular Filtration Rate 23.2L, Calcium Level 8.4L, Phosphorus Level 5.0H, Albumin 2.0L 06/04/18 05:53: Bedside Glucose (Misc Panel) 184H CBC/BMP Laboratory Tests 06/04/18 05:21 Red Blood Count 2.89 L, Mean Corpuscular Volume 95.2, Mean Corpuscular Hemoglobin 29.4, Mean Corpuscular Hemoglobin Concent 30.9 L, Red Cell Distribution Width 14.6 H, Anion Gap 8 Microbiology Microbiology 06/03/18 Gram Stain, Received Pending 06/03/18 Wound Culture, Received Pending MEGHAN VELÁSQUEZ PA-C Jun 04, 2018 09:18
[2018-06-04] MEDS: LEVEMIR (INSULIN DETEMIR) 1 UNITS/0.01ML SC SCH ×2 (09:26→22:09)
[2018-06-04] MEDS: HumaLOG INSULIN (NovoLOG) PER UNIT SC SCH ×4 (09:27→21:00)
[2018-06-04] MEDS: CALCITRIOL 0.25 MCG CAP (S0169) PO SCH (09:27)
[2018-06-04] MEDS: GABAPENTIN 300 MG CAP PO SCH ×2 (09:28→22:10)
[2018-06-04] MEDS: ISOSORBIDE MON. (IMDUR) 30 MG XR TAB PO SCH (09:28)
[2018-06-04] MEDS: TORSEMIDE 20 MG TAB PO SCH ×2 (09:28→17:00)
[2018-06-04] MEDS: CARVedilol 12.5 MG TAB PO SCH ×2 (09:29→22:09)
[2018-06-04] MEDS: PARoxetine 20 MG TAB PO SCH (09:29)
[2018-06-04] MEDS: SPIRONOLACTONE 25 MG TAB PO SCH (09:29)
[2018-06-04] MEDS: CEPHALEXIN 500 MG CAP PO SCH ×2 (09:30→22:10)
[2018-06-04] MEDS: MAGNESIUM OXIDE 400 MG TAB (MAG-OX) PO SCH (09:30)
[2018-06-04] MEDS: IRON SUCROSE 100 MG in NS 100 ML IV SCH (11:20)
--- NOTE | 2018-06-04 11:24 | IPN ---
DATE: 06/04/2018 SUBJECTIVE: The patient was seen and examined at the bedside this morning. She was getting ready to do physical therapy when I saw her. Her diuretic dose was decreased yesterday. She made almost 2 liters of urine yesterday. There is a slight bump in the creatinine today from 2 to 2.2. She has not been dialyzed in more than a week. OBJECTIVE: VITAL SIGNS: Temperature 97.5 degrees Fahrenheit, blood pressure 158/70, pulse 66, respiratory rate of 20, saturating 95% on room air. Intake and output: Urine output recorded as 1.9 yesterday, 730 mL so far today since overnight. Weight on the bed scale is stable at 125.2 kg. PHYSICAL EXAMINATION: GENERAL: Patient is awake, alert, oriented times three sitting up on the sofa morbidly obese. No apparent distress. HEAD/NECK EXAM: Extraocular muscles intact. Pupils equal and reactive to light. Mucous membranes are moist. Neck is supple. There is no jugular venous distention (JVD). She has a right internal jugular (IJ) tunneled hemodialysis catheter. CARDIOVASCULAR: S1, S2, regular rate. 2+ edema of the right lower extremity. 1+ edema on the left lower extremity. RESPIRATORY: Chest is clear to auscultation bilaterally. Bilaterally good air entry. No rales or rhonchi. ABDOMEN: Soft, obese, positive bowel sounds. Nontender. No organomegaly. MUSCULOSKELETAL: She has a wound VAC on the left foot, otherwise normal range of movement. CENTRAL NERVOUS SYSTEM (PRICING MANAGER): No focal deficit. Power is 5/5 in all extremities. LAB REVIEW: CBC showed a WBC 7.4, hemoglobin 8.5, platelets are 243. BMP showed sodium 137, potassium 4.5, chloride 101, bicarbonate 28, BUN 50, creatinine 2. 2, phosphorus 5. Microbiology: Wound culture from the foot is pending. CURRENT INPATIENT MEDICATIONS: Patient's medications are all reviewed by me. She was given a dose of vancomycin yesterday. She is getting daily Venofer. No other change in the medications today as compared with yesterday. ASSESSMENT/PLAN: 1. Acute renal failure superimposed on chronic kidney disease stage IV: Patient's renal function is stable. She required a few sessions of hemodialysis. Last hemodialysis was on 05/25/2018. She is tolerating two diuresis. Creatinine has been fluctuating close to 2. If creatinine keeps on bumping up, then hemodialysis will be resumed. 2. Chronic diastolic congestive heart failure: Volume status is still slightly decompensated. Torsemide dose is increased yesterday. Continued current dose of 40 mg by mouth twice a day along with spironolactone. Continue Coreg 12.5 mg by mouth twice a day. 3. Anemia on chronic kidney disease: Continue IV Venofer. She is also getting Aranesp 100 mcg subcu once a week. 4. Infected left foot ulcer, along with Staphylococcus aureus bacteremia: Patient is currently on IV vancomycin. Dose adjustment is as per primary team and pharmacology. 5. Hypertension with chronic kidney disease: Continue Coreg and isosorbide. Continue the high dose diuretics for optimization of volume status.
[2018-06-04 12:21] VITALS: BP 112/72
[2018-06-04 22:00] VITALS: BP 126/72
[2018-06-04] MEDS: ATORVASTATIN 20 MG TAB PO SCH (22:09)
[2018-06-04] MEDS: ASPIRIN 81 MG ENTERIC TAB PO SCH (22:09)
[2018-06-04] MEDS: CYCLOBENZAPRINE 10 MG TAB PO PRN (22:09)
[2018-06-04] MEDS: VANCOMYCIN HCL 1,000 MG, VIAL MATE ADAPTER 1 EACH in D5W 250 ML IV SCH (22:10)
[2018-06-04] MEDS: PANTOPRAZOLE 40MG TAB (PROTONIX) PO SCH (22:10)
[2018-06-05 02:00] VITALS: BP 122/69
[2018-06-05] MEDS: HEPARIN SOD (PORCINE) 5000 UNITS/ML VIAL SC SCH ×3 (05:55→21:13)
[2018-06-05 06:00] VITALS: BP 133/76
[2018-06-05 06:24] LABS: HEMATOCRIT 27.1 % (36.0-47.0); HEMOGLOBIN 8.3 g/dl (12.0-15.5); MEAN CORPUSCULAR HEMOGLOBIN 29.2 pg (27.0-33.0); MEAN CORPUSCULAR HGB CONC 30.6 g/dl (32.0-36.5); MEAN CORPUSCULAR VOLUME 95.4 fl (80.0-96.0); PLATELET COUNT, AUTOMATED 226 10^3/uL (150-450); RED BLOOD COUNT 2.84 10^6/uL (4.00-5.40); WHITE BLOOD COUNT 5.6 10^3/uL (4.0-10.0)
[2018-06-05 06:39] LABS: C REACTIVE PROTEIN QUANTITATIV 5.64 MG/DL (0.00-0.30); CALCIUM LEVEL 8.1 MG/DL (8.8-10.2); CREATININE FOR GFR 2.36 MG/DL (0.55-1.30); POTASSIUM SERUM 4.4 MEQ/L (3.5-5.1)
[2018-06-05] MEDS: MAGNESIUM OXIDE 400 MG TAB (MAG-OX) PO SCH (09:10)
[2018-06-05] MEDS: HumaLOG INSULIN (NovoLOG) PER UNIT SC SCH ×4 (09:10→21:00)
[2018-06-05] MEDS: CEPHALEXIN 500 MG CAP PO SCH ×2 (09:10→21:15)
[2018-06-05] MEDS: TORSEMIDE 20 MG TAB PO SCH ×2 (09:11→18:24)
[2018-06-05] MEDS: SPIRONOLACTONE 25 MG TAB PO SCH (09:11)
[2018-06-05] MEDS: CALCITRIOL 0.25 MCG CAP (S0169) PO SCH (09:11)
[2018-06-05] MEDS: LEVEMIR (INSULIN DETEMIR) 1 UNITS/0.01ML SC SCH ×2 (09:13→21:15)
[2018-06-05] MEDS: PARoxetine 20 MG TAB PO SCH (09:13)
[2018-06-05] MEDS: IRON SUCROSE 100 MG in NS 100 ML IV SCH (09:14)
[2018-06-05] MEDS: ISOSORBIDE MON. (IMDUR) 30 MG XR TAB PO SCH (09:24)
[2018-06-05] MEDS: CARVedilol 12.5 MG TAB PO SCH ×2 (09:24→21:15)
[2018-06-05] MEDS: GABAPENTIN 300 MG CAP PO SCH ×2 (09:25→21:14)
[2018-06-05 10:00] VITALS: BP 135/70
--- NOTE | 2018-06-05 10:51 | IPN ---
DATE: 06/05/2018 Norma is seen on 5 Lin. She had some work done by podiatry yesterday and still waiting for the note. She has been afebrile and feels stable from yesterday. Physical Exam: Afebrile. Vital signs stable. Her left foot is dressed. Lungs are clear. Heart regular rhythm. Labs: CBC and BMP unremarkable, unchanged. Plan: She is stable medically. She is still on IV antibiotic. Plan is to continue with this through the weekend. Will wait for the podiatry note to see what their plan is as far as wound care. Per the patient, nephrology would like her here through the weekend, so the earliest that she would be discharged is Thursday.
[2018-06-05 14:00] VITALS: BP 143/65
--- NOTE | 2018-06-05 14:08 | IPN ---
DATE OF SERVICE: 06/05/2018 Mrs. Bruno is seen this morning on her bedside. She is feeling well and is in good spirits. She has a wound Vac dressing on her left foot after her debridement. She remains afebrile and continues to receive IV antibiotics, including vancomycin. She is also on oral cephalexin 500 mg twice a day. She denies any dyspnea, chest pain, nausea or vomiting. She was dialyzed last week due to uremic symptoms and since then her kidney function has improved and did not require dialysis. She still has a Perma-Cath in place and her kidney function is being monitored. On physical examination, temperature 97.5 degrees Fahrenheit, heart rate 72 per minute and respiratory rate 18 per minute. Blood pressure 133/76 mmHg and oxygen saturation 95% on room air. Head is atraumatic. There is no oral thrush or ulcers. Eyes, ears, nose and throat are unremarkable. Neck is supple and jugular venous distention (JVD) is not elevated. Heart sounds are regular and lungs sound clear to auscultation. Abdomen soft, obese and nontender, Bowel sounds are normal. Extremities have no cyanosis or clubbing. She has 1+ edema on the right leg. Her left foot is covered with a dressing and wound Vac. Neurologically, she is awake, alert and oriented times three. Today's labs show WBC count 5.6, hemoglobin 8.3 and hematocrit 27.1. Platelets 226. Sodium 137, potassium 4.4, CO2 27, BUN 56 and creatinine 2.36. Calcium 8.1 and phosphorus 5.0. PROBLEMS: 1. Acute renal failure superimposed on chronic kidney disease. Kidney function is only slowly worsening. She did require dialysis last week due to uremic symptoms, metabolic acidosis and hyperkalemia. However, since then her kidney function is improved. At this point, there is no emergent need for dialysis and we will continue to monitor her closely. 2. Anemia. She is receiving IV iron for iron deficiency. Her anemia is stable and does not need any urgent intervention at this point. 3. Congestive heart failure. Volume status is reasonable. We will continue to monitor her closely. She is on torsemide 40 mg twice a day and spironolactone 25 mg daily, which will be continued. 4. Hypertension. Blood pressure remains very well controlled on current antihypertensive meds and no changes are being made today. 5. Hyperparathyroidism. The patient continues with calcitriol 0.25 mcg daily. The patient had several questions about her kidney function and potential need for dialysis, which were all answered to her satisfaction.
[2018-06-05] MEDS: VANCOMYCIN HCL 1,000 MG, VIAL MATE ADAPTER 1 EACH in D5W 250 ML IV SCH (21:13)
[2018-06-05] MEDS: ATORVASTATIN 20 MG TAB PO SCH (21:14)
[2018-06-05] MEDS: PANTOPRAZOLE 40MG TAB (PROTONIX) PO SCH (21:14)
[2018-06-05] MEDS: ASPIRIN 81 MG ENTERIC TAB PO SCH (21:15)
[2018-06-05] MEDS: CYCLOBENZAPRINE 10 MG TAB PO PRN (21:31)
[2018-06-05 22:00] VITALS: BP 134/62
[2018-06-06 02:00] VITALS: BP 137/78
[2018-06-06 06:00] VITALS: BP 138/84
[2018-06-06] MEDS: HEPARIN SOD (PORCINE) 5000 UNITS/ML VIAL SC SCH ×3 (06:22→21:26)
[2018-06-06 06:42] LABS: ALBUMIN 1.6 GM/DL (3.2-5.2); CALCIUM LEVEL 7.8 MG/DL (8.8-10.2); CREATININE FOR GFR 2.15 MG/DL (0.55-1.30); GLOMERULAR FILTRATION RATE 24.5 (>45); PHOSPHORUS LEVEL 4.8 MG/DL (2.5-4.9); POTASSIUM SERUM 4.2 MEQ/L (3.5-5.1)
[2018-06-06 06:44] LABS: HEMATOCRIT 29.4 % (36.0-47.0); HEMOGLOBIN 8.9 g/dl (12.0-15.5); MEAN CORPUSCULAR HEMOGLOBIN 30.1 pg (27.0-33.0); MEAN CORPUSCULAR HGB CONC 30.3 g/dl (32.0-36.5); MEAN CORPUSCULAR VOLUME 99.3 fl (80.0-96.0); PLATELET COUNT, AUTOMATED 171 10^3/uL (150-450); RED BLOOD COUNT 2.96 10^6/uL (4.00-5.40); WHITE BLOOD COUNT 5.7 10^3/uL (4.0-10.0)
[2018-06-06] MEDS: LEVEMIR (INSULIN DETEMIR) 1 UNITS/0.01ML SC SCH ×2 (08:06→21:29)
[2018-06-06] MEDS: HumaLOG INSULIN (NovoLOG) PER UNIT SC SCH ×4 (08:07→21:00)
[2018-06-06] MEDS: CARVedilol 12.5 MG TAB PO SCH ×2 (08:07→21:28)
[2018-06-06] MEDS: CALCITRIOL 0.25 MCG CAP (S0169) PO SCH (08:07)
[2018-06-06] MEDS: TORSEMIDE 20 MG TAB PO SCH ×2 (08:08→18:07)
[2018-06-06] MEDS: PARoxetine 20 MG TAB PO SCH (08:08)
[2018-06-06] MEDS: GABAPENTIN 300 MG CAP PO SCH ×2 (08:08→21:28)
[2018-06-06] MEDS: CEPHALEXIN 500 MG CAP PO SCH (08:09)
[2018-06-06] MEDS: MAGNESIUM OXIDE 400 MG TAB (MAG-OX) PO SCH (08:09)
[2018-06-06] MEDS: SPIRONOLACTONE 25 MG TAB PO SCH (08:09)
[2018-06-06] MEDS: ISOSORBIDE MON. (IMDUR) 30 MG XR TAB PO SCH (08:12)
[2018-06-06 10:00] VITALS: BP 136/70
--- NOTE | 2018-06-06 14:01 | IPN ---
DATE OF SERVICE: 06/06/2018 Ms. Narayan is seen this morning on her bedside. She reports feeling jittery and weak. She has not been able to get up or walk. She remains mostly in the bed. She denies any nausea, vomiting, dyspnea, or chest pain. She has no fever or chills. She still has the wound Vac on her left foot wound. On physical examination, temperature 97.7 degrees Fahrenheit, heart rate 64 per minute and respiratory rate 18 per minute. Blood pressure 138/84 mmHg and oxygen saturation 94% on room air. Intake and output records from yesterday show a negative fluid balance of 1095 mL. Her neck veins are not abnormally distended. She has no oral thrush or ulcers. Head is atraumatic. Heart sounds are regular and lungs with slightly diminished breath sounds at dependent parts. Abdomen: Soft, obese and nontender. Bowel sounds are normal. Extremities have no cyanosis or clubbing. Right lower extremity edema is at least 2+. Left foot is wrapped in a dressing and left leg is elevated on the pillow. Neurologically, she is awake, alert and at her baseline mentation. Today's labs show WBC count 5.7, hemoglobin 8.9 and hematocrit 29.4. Sodium is 140, potassium 4.2, CO2 of 23, BUN 52 and creatinine 2.15. Glucose 266 and calcium 7.8. PROBLEMS: 1. Acute renal failure superimposed on chronic kidney disease. Kidney function seems to be leveled off. She has not required dialysis for a week now and does not seem to have any uremic symptoms. We are still not removing her Perma-Cath and will continue to watch her for next few days. 2. Congestive heart failure. Her volume status is still somewhat decompensated with significant peripheral edema. She has been negative in fluid balance for the last 24 hours. We will continue with torsemide 40 mg twice a day and spironolactone 25 mg daily as long as she is in negative balance. 3. Anemia. She is receiving IV Venofer and also receiving weekly dose of Aranesp. Her anemia is slowly improving. 4. Left foot infected wound. The patient remains on antibiotics and is currently afebrile. 5. Hypertension. Blood pressure is very well controlled on current medications and no changes are being made today. Her blood pressure is likely to improve with negative fluid balance over the next few days.
--- NOTE | 2018-06-06 15:57 | IPN ---
DATE: 06/06/2018 Norma is seen in 5 mcgee. She has been running some low grade temperatures, it concerns her, she thinks that it is often a sign of an infection developing. She does not have a leukocytosis. She says there is not really anything coming out from the wound vacuum assisted closure (VAC) anymore. PHYSICAL EXAMINATION: Currently afebrile, she has had no fever. Lungs: Clear. Heart: Regular rhythm. Abdomen: Soft, nontender. Left foot is dressed. IMPRESSION: Deep tendon abscess, methicillin sensitive Staphylococcus. PLAN: There is a bit of a contradiction in the infectious disease consult note from 06/03/2018, which talks about the patient being on Keflex and the orders which were for vancomycin. The vancomycin order was later in the day and perhaps there was a change of plan. I am staying with the vancomycin for now and stopping the Keflex, particularly with the possibility of her starting to become a little more febrile. I am not sure if infectious disease is back tomorrow or if away. No infectious disease (ID) coverage on the weekend.
[2018-06-06] MEDS: VANCOMYCIN HCL 1,000 MG, VIAL MATE ADAPTER 1 EACH in D5W 250 ML IV SCH (21:27)
[2018-06-06] MEDS: ATORVASTATIN 20 MG TAB PO SCH (21:27)
[2018-06-06] MEDS: PANTOPRAZOLE 40MG TAB (PROTONIX) PO SCH (21:28)
[2018-06-06] MEDS: ASPIRIN 81 MG ENTERIC TAB PO SCH (21:28)
[2018-06-06] MEDS: CYCLOBENZAPRINE 10 MG TAB PO PRN (21:38)
[2018-06-06] MEDS: ACETAMINOPHEN TAB 650MG DOSE (2X325MG) PO PRN (21:38)
[2018-06-06 22:00] VITALS: BP 132/82
--- NOTE | 2018-06-06 23:42 | PHACANCOPD ---
PHARMACY VANCOMYCIN DOSING Pt Demographics Demographics Patient Age:67 , Weight:125.000 , Gender: female Adjusted Body Weight Date: 05/18/18, Adjusted Body Weight: Kg Events Past 24 Hours Events Past 24 Hours: NO: Dialysis, Diuretic Therapy, Change in CrCl, Fever, Elevation in WBC, Pending Diagnostics, Pending Procedures, Other Vancomycin Vancomycin indication: DIABETIC FOOT INFECTION Vancomycin Target Ranges: 15-20 mcg/ml Vancomycin Load Y/N: Yes Load Dose Date Time Vancomycin Load Dose: 1g given 05/18/18@1500, then 1g given 05/18/18 @2100 for a total loading dose of 2g Vancomycin Dose Date: 05/18/18. Current Vancomycin Dose: [1g IV Q24H] Intermittent Dosing?: No Labs Labs Item Value Date Time Creatinine 2.25 MG/DL H 06/04/18 0521 Creatinine 2.36 MG/DL H 06/05/18 0546 Creatinine 2.15 MG/DL H 06/06/18 0555 C-Reactive Protein, Quantitative 5.64 MG/DL H 06/05/18 0546 Vancomycin Level Trough 14.0 UG/ML 06/04/18 1950 Vancomycin Level Trough 17.6 UG/ML 06/06/182022 Micro Microbiology 06/03/18 Gram Stain - Final, Complete 06/03/18 Wound Culture - Final, Complete Creatinine Clearance Date:05/18/18. Est Creatinine Clearance: [~22 ml/min]. Assessment and Plan Maintaining Current Dose?: Yes Reason for dose change: No Dose Change Pharmacist Note Pharmacist Note Date: 06/06/18. Pharmacist note: Pt trough came back this evening @17.6mcg/ml. We will continue 1g IV every 24 hours. We will continue to monitor and adjust the dose as needed. Date: 05/18/18. Pharmacist note: Day #1 vancomycin therapy initiated with a 2g loading dose based on pt BMI>40 (1g given ~1500, then 1g given ~2100 spaced out to help protect kidneys), followed by a maintenance regimen of 1g IV Q24H for the treatment of sepsis 2/2 a diabetic left foot wound infection and UTI - aiming for a goal trough level of 15-20mcg/ml. The patient has a PMH of CKD stage IV. It is noted that the patient is also on scheduled IV lasix and spironolactone - so kidney function will need to be monitored closely with the use of concomitant nephrotoxins. Blood cultures are growing staph aureus, as is the wound culture from the left foot. WBC, ESR, and CRP are elevated. LA WNL. The patient was febrile on admit. The patient does have a hx of MRSA infection from the right foot in 2011, and also has a hx of vancomycin use here at [facility]. We will continue to monitor renal function closely, and will schedule a trough level accordingly. [facility] Jun 06, 2018 23:42
[2018-06-07 02:00] VITALS: BP 130/74
[2018-06-07] MEDS: HEPARIN SOD (PORCINE) 5000 UNITS/ML VIAL SC SCH ×3 (05:42→21:20)
[2018-06-07 05:44] LABS: HEMATOCRIT 28.3 % (36.0-47.0); HEMOGLOBIN 8.8 g/dl (12.0-15.5); MEAN CORPUSCULAR HEMOGLOBIN 29.5 pg (27.0-33.0); MEAN CORPUSCULAR HGB CONC 31.1 g/dl (32.0-36.5); PLATELET COUNT, AUTOMATED 217 10^3/uL (150-450); RED BLOOD COUNT 2.98 10^6/uL (4.00-5.40); WHITE BLOOD COUNT 5.9 10^3/uL (4.0-10.0)
[2018-06-07 06:00] VITALS: BP 132/76
[2018-06-07 06:12] LABS: ALBUMIN 2.2 GM/DL (3.2-5.2); CALCIUM LEVEL 8.3 MG/DL (8.8-10.2); CREATININE FOR GFR 2.41 MG/DL (0.55-1.30); GLOMERULAR FILTRATION RATE 21.5 (>45); PHOSPHORUS LEVEL 4.7 MG/DL (2.5-4.9); POTASSIUM SERUM 3.7 MEQ/L (3.5-5.1)
[2018-06-07] MEDS: HumaLOG INSULIN (NovoLOG) PER UNIT SC SCH ×4 (08:07→21:00)
[2018-06-07] MEDS: CALCITRIOL 0.25 MCG CAP (S0169) PO SCH (08:08)
[2018-06-07] MEDS: LEVEMIR (INSULIN DETEMIR) 1 UNITS/0.01ML SC SCH ×2 (08:08→21:21)
[2018-06-07] MEDS: TORSEMIDE 20 MG TAB PO SCH ×2 (08:08→17:12)
[2018-06-07] MEDS: GABAPENTIN 300 MG CAP PO SCH ×2 (08:09→21:19)
[2018-06-07] MEDS: MAGNESIUM OXIDE 400 MG TAB (MAG-OX) PO SCH (08:09)
[2018-06-07] MEDS: PARoxetine 20 MG TAB PO SCH (08:09)
[2018-06-07] MEDS: SPIRONOLACTONE 25 MG TAB PO SCH (08:09)
[2018-06-07] MEDS: ISOSORBIDE MON. (IMDUR) 30 MG XR TAB PO SCH (08:14)
[2018-06-07] MEDS: CARVedilol 12.5 MG TAB PO SCH ×2 (08:14→21:19)
[2018-06-07 10:00] VITALS: BP 126/64
--- NOTE | 2018-06-07 10:46 | IPNPDOC ---
Subjective Date Seen The patient was seen on 06/07/18. Subjective Chief Complaint/HPI no new c/o today Events since last encounter no new c/o today Constitutional: Denies: Chills Pulmonary: Denies: Dyspnea, Cough Cardiovascular: Denies: Chest Pain, Orthopnea Gastrointestinal: Denies: Nausea, Abdominal Pain Genitourinary: Denies: Dysuria Hematologic: Denies: Bruising, Bleeding Excessively Musculoskeletal: Denies: Neck Pain Neurological: Denies: Weakness Psych: Reports: Mood Normal Objective Physical Examination General Exam: Positive: Alert, Cooperative, No Acute Distress ENT Exam: Positive: Mucous membr. moist/pink Chest Exam: Positive: Clear to auscultation, Diminished Heart Exam: Positive: Rate Normal, Normal S1, Normal S2; Negative: Murmurs Abdomen Exam: Positive: Normal bowel sounds, Soft Extremity Exam: Positive: Normal pulses Skin Exam: Positive: Breakdown Neuro Exam: Positive: Normal Speech Psych Exam: Positive: Mental status NL, Mood NL, Oriented x 3 Assessment /Plan Problems (1) Acute renal failure superimposed on chronic kidney disease Problem Text: 06/07 Creat 2.4 06/04 Scr 2.25 cont to rise, Nephro is following, pt cont to have good urine output. Net Neg -725 06/03 06/03 Scr 2.09 this morning increased from 1.93 yest, dialysis has been stopped, given Lasix yesterday per nephro. 06/02/18: improved Cr. Has stopped HD. home diuretics recently resumed. HD as per Nephro plan possible dc home p 06/01 dialysis R forearm fistula by Byron Drummond (2) Diabetic foot infection Status: Acute Response to Treatment: Stable, Improving Problem Text: 06/07: wound vac still on. has had long enough course of IV and po antibiotics. blister culture from 06/03: NG, so stop vanco and resume cephalexin 500 bid, pending input from Dr. Calixto regarding whether he sees a continuing need for po antibiotics. will request heel float boot to reduce risk for pressure sore 06/04 Pod to assess after removal of wound vac today, await recommendations. 06/03 Dr Calixto plans to look at foot tomorrow, removing wound vac and make further recommendations, can work on d/c plan from there. 06/02/18: On po antibiotic. Will start to work toward DC plans. Will review case with PFS. 06/01 WBC has normalized, CRP cont to trend down. Cont with Cefazolin/Vanco per ID, likely will need PICC. 05/31 plan for wound closure in OR this afternoon, will need wound vac - per Podiatry. WBC 10.7, slightly lower than yest, CRP consistently trending down. D13 cefazolin (per ID) Complicated MSSA skin and soft tissue infection MSSA with an abscess along the common peroneal tendon sheath 05/31 attempted wound closure by Noelle 05/30 AF, but WBC down to 11.0 (05/28 14.4), CRP 10.9 (05/26 15) 05/21 S/P exploration and packing by Dr. Calixto (3) MSSA (methicillin susceptible Staphylococcus aureus) septicemia Status: Acute Problem Text: 06/07 culture no growth, back on cephalexin, stop vanco 06/04 repeat wound culture obtained 06/03 05/19, 05/20/18 BCX1 each NG (4) Anemia in chronic kidney disease Status: Chronic Problem Text: continues Aranesp/IV Fe c dialysis 06/01 Hgb 8.3 cont to monitor. 05/31 down to 7.7, sp 1u-recheck HO 05/25 sp 2u PRBCs 05/20/18 HO- 05/28 B12 1918 (5) Diastolic CHF Status: Chronic Problem Text: Euvolemic sp HD (6) DM2 (diabetes mellitus, type 2) Status: Chronic Problem Text: BGs mid 100s on i det 20 c SSLI (HD i glar 70/60!) (7) HTN (hypertension) Status: Chronic Problem Text: Good control on carve 12.5 BID, ISMN 30, francie 25 (8) UTI (urinary tract infection) Status: Resolved Problem Text: No recurrent symptoms 05/17/18 UCX NG (9) Physical deconditioning Status: Chronic Problem Text: 06/01 needs new PT order placed, done today. 05/27 not safe to dc home (10) Nausea Status: Resolved Response to Treatment: Stable Problem Text: favor 2 uremic gastritis improved c dialysis, off Fe, + panto 40 QD 05/28 05/29 H pylori P Plan/VTE VTE Prophylaxis Ordered?: Yes (SQ heparin) Plan Therapy: PT VS, I&O, 24H, Fishbone Vital Signs/I&O Vital Signs Date Time Temp Pulse Resp B/P (MAP) Pulse Ox O2 Delivery O2 Flow Rate FiO2 06/07/18 08:14 64 130/72 06/07/18 06:00 97.9 16 92 I&O- Last 24 Hours up to 6 AM 06/07/18 06:00 Intake Total 1510 ml Output Total 2525 ml Balance -1015 ml Laboratory Data 24H LABS Laboratory Tests 2 06/06/18 11:19: Bedside Glucose (Misc Panel) 349H 06/06/18 17:11: Bedside Glucose (Misc Panel) 234H 06/06/18 20:02: Bedside Glucose (Misc Panel) 243H 06/06/18 20:23: Vancomycin Level Trough 17.6 06/07/18 05:18: Nucleated Red Blood Cells % (auto) 0.0, Blood Urea Nitrogen 56H, Creatinine 2.41H, Sodium Level 136, Potassium Level 3.7, Chloride Level 98, Carbon Dioxide Level 31, Anion Gap 7L, Glomerular Filtration Rate 21.5L, Calcium Level 8.3L, Phosphorus Level 4.7, Albumin 2.2#L 06/07/18 05:37: Bedside Glucose (Misc Panel) 191H CBC/BMP Laboratory Tests 06/07/18 05:18 Red Blood Count 2.98 L, Mean Corpuscular Volume 95.0, Mean Corpuscular He moglobin 29.5, Mean Corpuscular Hemoglobin Concent 31.1 L, Red Cell Distribution Width 14.5, Anion Gap 7 L Microbiology Microbiology 06/03/18 Gram Stain - Final, Complete 06/03/18 Wound Culture - Final, Complete Juan Miguel Wilson MD Jun 07, 2018 10:46
[2018-06-07] MEDS: CEPHALEXIN 500 MG CAP PO SCH ×2 (11:57→21:18)
--- NOTE | 2018-06-07 13:01 | IPN ---
DATE: 06/07/2018 Mrs. Narayan is seen this morning on her bedside. She just finished her physical therapy and was able to walk with the help of walker and therapist. She denies any dyspnea, chest pain, fever or chills. Her infected wound on the left foot is covered with dressing and wound VAC. She remains on antibiotics. PHYSICAL EXAMINATION: Temperature 97.9 degrees Fahrenheit, heart rate 64 per minute and respiratory rate 16 per minute. Blood pressure 130/72 mmHg and oxygen saturation 92%. Intake and output records are probably not accurate; however, they are significantly negative with intake 1210 and output 3075. Her weight is recorded at 124.3 kg today. Head is atraumatic. Neck is supple and JVD not abnormally elevated. There is no oral thrush or ulcers. Heart sounds are regular and lungs with slightly diminished breath sounds at bases. Abdomen soft and nontender and bowel sounds are present. Extremities have no cyanosis or clubbing. Lower extremity edema is 2+ on the right leg and trace on the left leg. Her left foot wound is covered with dressing. Neurologically she is awake, alert and oriented times three. Today's labs show WBC count 8.8, hemoglobin 28.3 and WBC count 5.9. Sodium 136, potassium 3.7, CO2 of 31, BUN 56 and creatinine 2.41. PROBLEMS: 1. Acute renal failure superimposed on chronic kidney disease. Slight worsening of kidney function noticed with negative fluid balance. She still has significant peripheral edema and I am going to leave her diuretic at the current dose of torsemide 40 mg b.i.d. She is also receiving spironolactone 25 mg daily. 2. Renal failure, acute on chronic. She was dialyzed twice and then kidney function has partially improved. At present there is no emergent need for dialysis, but we are maintaining her PermaCath for now. 3. Congestive heart failure. Volume status remains slightly decompensated. She was in negative fluid balance yesterday with current dose of diuretics so no changes are being made today. 4. Anemia. Her anemia is stable and she is receiving Aranesp and iron which will be continued. 5. Infected wound left foot. The patient is afebrile and remains on antibiotics. No changes are being made today.
[2018-06-07 14:00] VITALS: BP 131/69
--- NOTE | 2018-06-07 19:16 | IPN ---
DATE: 06/07/2018 Time: 6:31 p.m. CHIEF COMPLAINT: Patient seen today for evaluation of her wound on the left foot. PHYSICAL EXAMINATION: The wound VAC is functioning satisfactorily. The ulceration on the posterior heel has almost completely skinned over. There is a small ulceration now on the medial side and the larger lateral wound, which is presently covered by a wound VAC. Laboratory studies were reviewed revealing the final wound culture as Staphylococcus aureus, sensitive to oxacillin. The blood culture grew Staphylococcus aureus as well, sensitive to oxacillin. Wound culture from the medial wound was no growth. Laboratory studies reviewed revealing the white count at 5.9. Last C-reactive protein was 5.64. The wound VAC was removed revealing a wound on the lateral aspect of the foot measuring 13 cm x 3.1 cm x 0.5 cm in depth. Good granulation tissue. The peroneal tendons are almost completely covered with granulation tissue. There is no active discharge. ASSESSMENT: Stage IV wound, left foot. Remarkably improved. PLAN: A white foam and black foam wound VAC was reapplied to the patient's left wound. Optifoam was placed over the ulcer on the medial side of the foot extending onto the plantar heel. Continue offloading her foot in an offloading foam boot. Her questions were answered.
[2018-06-07] MEDS: CYCLOBENZAPRINE 10 MG TAB PO PRN (21:19)
[2018-06-07] MEDS: ATORVASTATIN 20 MG TAB PO SCH (21:19)
[2018-06-07] MEDS: ASPIRIN 81 MG ENTERIC TAB PO SCH (21:19)
[2018-06-07] MEDS: PANTOPRAZOLE 40MG TAB (PROTONIX) PO SCH (21:19)
[2018-06-07] MEDS: ACETAMINOPHEN TAB 650MG DOSE (2X325MG) PO PRN (21:20)
[2018-06-07 22:00] VITALS: BP 160/65
[2018-06-08 02:00] VITALS: BP 120/72
[2018-06-08 06:00] VITALS: BP 118/80
[2018-06-08] MEDS: HEPARIN SOD (PORCINE) 5000 UNITS/ML VIAL SC SCH ×3 (06:12→21:00)
[2018-06-08 06:57] LABS: HEMATOCRIT 28.7 % (36.0-47.0); HEMOGLOBIN 8.9 g/dl (12.0-15.5); MEAN CORPUSCULAR HEMOGLOBIN 29.7 pg (27.0-33.0); MEAN CORPUSCULAR VOLUME 95.7 fl (80.0-96.0); PLATELET COUNT, AUTOMATED 212 10^3/uL (150-450); WHITE BLOOD COUNT 5.2 10^3/uL (4.0-10.0)
[2018-06-08 07:25] LABS: ALBUMIN 2.2 GM/DL (3.2-5.2); CALCIUM LEVEL 8.1 MG/DL (8.8-10.2); CREATININE FOR GFR 2.64 MG/DL (0.55-1.30); GLOMERULAR FILTRATION RATE 19.3 (>45); PHOSPHORUS LEVEL 5.1 MG/DL (2.5-4.9)
[2018-06-08] MEDS: HumaLOG INSULIN (NovoLOG) PER UNIT SC SCH ×4 (07:48→20:56)
[2018-06-08] MEDS: CEPHALEXIN 500 MG CAP PO SCH ×2 (07:53→20:55)
[2018-06-08] MEDS: CALCITRIOL 0.25 MCG CAP (S0169) PO SCH (07:53)
[2018-06-08] MEDS: ISOSORBIDE MON. (IMDUR) 30 MG XR TAB PO SCH (07:53)
[2018-06-08] MEDS: SPIRONOLACTONE 25 MG TAB PO SCH (07:53)
[2018-06-08] MEDS: CARVedilol 12.5 MG TAB PO SCH ×2 (07:54→20:56)
[2018-06-08] MEDS: PARoxetine 20 MG TAB PO SCH (07:54)
[2018-06-08] MEDS: GABAPENTIN 300 MG CAP PO SCH ×2 (07:54→20:55)
[2018-06-08] MEDS: TORSEMIDE 20 MG TAB PO SCH ×2 (07:54→17:14)
[2018-06-08] MEDS: LEVEMIR (INSULIN DETEMIR) 1 UNITS/0.01ML SC SCH ×2 (07:55→20:55)
[2018-06-08] MEDS: MAGNESIUM OXIDE 400 MG TAB (MAG-OX) PO SCH (08:01)
[2018-06-08 10:00] VITALS: BP 131/74
--- NOTE | 2018-06-08 11:34 | IPNPDOC ---
Subjective Date Seen The patient was seen on 06/08/18. Subjective Chief Complaint/HPI foot infection, renal failure Events since last encounter Feeling well. wound Vac dressing changed yesterday. Followed by Dr. Calixto and Infectious disease. nursing working on wound Vac for home with [facility]. Constitutional: Denies: Chills, Fever, Night Sweats Pulmonary: Denies: Dyspnea, Cough Cardiovascular: Denies: Chest Pain, Palpitations, Orthopnea, Paroxysmal Noc. Dyspnea, Lt Headedness Objective Physical Examination General Exam: Positive: Alert, Cooperative, No Acute Distress ENT Exam: Positive: Mucous membr. moist/pink Chest Exam: Positive: Clear to auscultation, Diminished (2/2 to body habitus); Negative: Wheezing Heart Exam: Positive: Rate Normal, Normal S1, Normal S2; Negative: Gallops, Murmurs, Rubs Abdomen Exam: Positive: Normal bowel sounds, Soft; Negative: Tenderness Extremity Exam: Positive: Normal pulses; Negative: Cyanosis, Edema Skin Exam: Positive: Breakdown (wound vac is in place on LE lateral aspect , also on medial aspect of mallelous a blister, I did obtain clutre wound for no) Neuro Exam: Positive: Normal Speech Psych Exam: Positive: Mental status NL, Mood NL, Oriented x 3 Assessment /Plan Problems (1) Acute renal failure superimposed on chronic kidney disease Problem Text: 06/08/18: recommendations per Nephrology. No current HD. Concerning that her Creatinine is up to 2.6 today. 06/07 Creat 2.4 06/04 Scr 2.25 cont to rise, Nephro is following, pt cont to have good urine output. Net Neg -725 06/03 06/03 Scr 2.09 this morning increased from 1.93 yest, dialysis has been stopped, given Lasix yesterday per nephro. 06/02/18: improved Cr. Has stopped HD. home diuretics recently resumed. HD as per Nephro plan possible dc home p 06/01 dialysis R forearm fistula by Byron Drummond (2) Diabetic foot infection Status: Acute Response to Treatment: Stable, Improving Problem Text: 06/08/18: no changed., work toward home with wound Vac 06/07: wound vac still on. has had long enough course of IV and po antibiotics. blister culture from 06/03: NG, so stop vanco and resume cephalexin 500 bid, pending input from Dr. Calixto regarding whether he sees a continuing need for po antibiotics. will request heel float boot to reduce risk for pressure sore 06/04 Pod to assess after removal of wound vac today, await recommendations. 06/03 Dr Calixto plans to look at foot tomorrow, removing wound vac and make further recommendations, can work on d/c plan from there. 06/02/18: On po antibiotic. Will start to work toward DC plans. Will review case with PFS. 06/01 WBC has normalized, CRP cont to trend down. Cont with Cefazolin/Vanco per ID, likely will need PICC. 05/31 plan for wound closure in OR this afternoon, will need wound vac - per Podiatry. WBC 10.7, slightly lower than yest, CRP consistently trending down. D13 cefazolin (per ID) Complicated MSSA skin and soft tissue infection MSSA with an abscess along the common peroneal tendon sheath 05/31 attempted wound closure by Noelle 05/30 AF, but WBC down to 11.0 (05/28 14.4), CRP 10.9 (05/26 15) 05/21 S/P exploration and packing by Dr. Calixto (3) MSSA (methicillin susceptible Staphylococcus aureus) septicemia Status: Acute Problem Text: 06/07 culture no growth, back on cephalexin, stop vanco 06/04 repeat wound culture obtained 06/03 05/19, 05/20/18 BCX1 each NG (4) Anemia in chronic kidney disease Status: Chronic Problem Text: continues Aranesp/IV Fe c dialysis 06/01 Hgb 8.3 cont to monitor. 05/31 down to 7.7, sp 1u-recheck HO 05/25 sp 2u PRBCs 05/20/18 HO- 05/28 B12 1918 (5) Diastolic CHF Status: Chronic Problem Text: Euvolemic sp HD (6) DM2 (diabetes mellitus, type 2) Status: Chronic Problem Text: BGs mid 100s on i det 20 c SSLI (HD i glar 70/60!) (7) HTN (hypertension) Status: Chronic Problem Text: Good control on carve 12.5 BID, ISMN 30, francie 25 (8) UTI (urinary tract infection) Status: Resolved Problem Text: No recurrent symptoms 05/17/18 UCX NG (9) Physical deconditioning Status: Chronic Problem Text: 06/01 needs new PT order placed, done today. 05/27 not safe to dc home (10) Nausea Status: Resolved Response to Treatment: Stable Problem Text: favor 2 uremic gastritis improved c dialysis, off Fe, + panto 40 QD 05/28 05/29 H pylori P Plan/VTE VTE Prophylaxis Ordered?: Yes (SQ heparin) Plan Therapy: PT VS, I&O, 24H, Fishbone Vital Signs/I&O Vital Signs Date Time Temp Pulse Resp B/P (MAP) Pulse Ox O2 Delivery O2 Flow Rate FiO2 06/08/18 07:54 66 06/08/18 07:53 150/70 06/08/18 06:57 93 06/08/18 06:00 97.1 12 I&O- Last 24 Hours up to 6 AM 06/08/18 06:00 Intake Total 1630 ml Output Total 1350 ml Balance 280 ml Laboratory Data 24H LABS Laboratory Tests 2 06/07/18 11:34: Bedside Glucose (Misc Panel) 278H 06/07/18 16:21: Bedside Glucose (Misc Panel) 291H 06/07/18 19:49: Bedside Glucose (Misc Panel) 193H 06/08/18 06:22: Nucleated Red Blood Cells % (auto) 0.0, Blood Urea Nitrogen 59H, Creatinine 2.64H, Sodium Level 136, Potassium Level 4.0, Chloride Level 99, Carbon Dioxide Level 31, Anion Gap 6L, Glomerular Filtration Rate 19.3L, Calcium Level 8.1L, Phosphorus Level 5.1H, Albumin 2.2L CBC/BMP Laboratory Tests 06/08/18 06:22 Red Blood Count 3.00 L, Mean Corpuscular Volume 95.7, Mean Corpuscular Hemoglobin 29.7, Mean Corpuscular Hemoglobin Concent 31.0 L, Red Cell Distribution Width 14.7 H, Anion Gap 6 L Microbiology Microbiology 06/03/18 Gram Stain - Final, Resulted 06/03/18 Wound Culture - Preliminary, Resulted July Cali [employer]IC MANAGER Jun 08, 2018 11:34 Juan Miguel Wilson MD Jun 08, 2018 12:43
--- NOTE | 2018-06-08 11:47 | IPN ---
DATE OF SERVICE: 06/08/2018 Mrs. Narayan is seen this morning on her bedside. She is sitting in the chair at the time of my visit. She has started to walk with physical therapy. She denies any dyspnea, chest pain, nausea, or vomiting. On physical examination, temperature 97.1 degrees Fahrenheit, heart rate 66 per minute, and respiratory rate 12 per minute. Blood pressure 150/70 mmHg and oxygen saturation 93% on room air. Intake and output records from yesterday showed total intake 1930 and output 1525. Her weight is essentially unchanged at 125 kg. Head is atraumatic. Neck is supple and without jugular venous distention (JVD) or thyroid enlargement. Heart sounds are regular and lungs with diminished breath sounds bilaterally. Abdomen: Soft and nontender, and bowel sounds are normal. There is no palpable organomegaly. Extremities: Have no cyanosis or clubbing. Left foot wound has a wound vacuum-assisted closure (VAC) dressing. Today's laboratories show WBC count 5.2, hemoglobin 8.9, and hematocrit 28.7. Platelets 212. Sodium 136, potassium 4.0, CO2 31, BUN 59, and creatinine 2.64. Calcium is 8.1 and phosphorus 5.1. PROBLEMS: 1. Acute renal failure superimposed on chronic kidney disease. Kidney function is slightly changed, but overall her kidney function remains in advanced stage IV kidney disease. At this point, there is no emergent need for dialysis, and we are watching her kidney function on daily basis. She has not been dialyzed for almost 10 days now. She still has a PermCath which is being maintained due to potential need for dialysis again. 2. Congestive heart failure. Volume status is still slightly decompensated in the form of lower extremity edema. I will get a chest x-ray to make sure she does not have any pleural effusions or vascular congestion. She remains on diuretics, and no change in dose is being made today. 3. Anemia. She has been receiving intravenous (IV) iron and weekly dose of Aranesp, and anemia is stable. 4. Infected wound left foot. The patient remains on wound care and Keflex, she is now receiving orally. She is not on any nephrotoxic medications.
[2018-06-08 14:00] VITALS: BP 127/66
--- NOTE | 2018-06-08 14:23 | REP ---
REASON: History of congestive heart failure. COMPARISON: Multiple, the latest 05/18/2018 a portable exam. There is a double lumen central venous catheter with tip of which is in the superior vena cava. There is mild cardiomegaly. The lungs wood are clear and the pleural angles are sharp. The osseous structures are within normal limits for the patient's age. IMPRESSION: Cardiomegaly without evidence of acute cardiopulmonary disease. Electronically Signed by Fernando Diaz DO 06/08/2018 03:49 P
[2018-06-08 15:49] LABS: APPEARANCE, URINE CLOUDY (CLEAR); BACTERIA, URINE AUTO NEGATIVE (NEGATIVE); BILIRUBIN, URINE AUTO NEGATIVE (NEGATIVE); BLOOD, URINE BLOOD 2+ (NEGATIVE); COLOR, URINE YELLOW (YELLOW); GLUCOSE, URINE (UA) AUTO NEGATIVE (NEGATIVE); KETONE, URINE AUTO NEGATIVE (NEGATIVE); LEUKOCYTE ESTERASE, URINE AUTO 2+ (NEGATIVE); NITRITE, URINE AUTO NEGATIVE (NEGATIVE); PROTEIN, URINE AUTO NEGATIVE (NEGATIVE); RBC, URINE AUTO 15 /HPF (0-3); SPECIFIC GRAVITY URINE AUTO 1.012 (1.002-1.035); SQUAMOUS EPITHELIAL CELL UR AU 17 /HPF (0-6); TRANSITIONAL EPITHELIAL AUTO <1 /HPF; UROBILINOGEN, URINE AUTO 0.2 mg/dL (0.0-2.0); WBC, URINE AUTO 61 /HPF (0-3)
[2018-06-08 17:16] VITALS: BP 150/74
[2018-06-08] MEDS: ASPIRIN 81 MG ENTERIC TAB PO SCH (20:56)
[2018-06-08] MEDS: PANTOPRAZOLE 40MG TAB (PROTONIX) PO SCH (20:56)
[2018-06-08] MEDS: ATORVASTATIN 20 MG TAB PO SCH (20:56)
[2018-06-08] MEDS: CYCLOBENZAPRINE 10 MG TAB PO PRN (21:00)
[2018-06-08 22:00] VITALS: BP 128/70
[2018-06-09 02:00] VITALS: BP 108/68
[2018-06-09] MEDS: HEPARIN SOD (PORCINE) 5000 UNITS/ML VIAL SC SCH ×3 (05:10→21:56)
[2018-06-09 06:00] VITALS: BP 132/70
[2018-06-09 06:14] LABS: HEMATOCRIT 28.8 % (36.0-47.0); HEMOGLOBIN 8.7 g/dl (12.0-15.5); MEAN CORPUSCULAR HEMOGLOBIN 29.1 pg (27.0-33.0); MEAN CORPUSCULAR HGB CONC 30.2 g/dl (32.0-36.5); MEAN CORPUSCULAR VOLUME 96.3 fl (80.0-96.0); PLATELET COUNT, AUTOMATED 210 10^3/uL (150-450); RED BLOOD COUNT 2.99 10^6/uL (4.00-5.40)
[2018-06-09 06:35] LABS: ALBUMIN 2.1 GM/DL (3.2-5.2); CALCIUM LEVEL 7.8 MG/DL (8.8-10.2); CREATININE FOR GFR 2.79 MG/DL (0.55-1.30); GLOMERULAR FILTRATION RATE 18.1 (>45); PHOSPHORUS LEVEL 4.8 MG/DL (2.5-4.9)
[2018-06-09] MEDS: HumaLOG INSULIN (NovoLOG) PER UNIT SC SCH ×4 (08:10→22:03)
[2018-06-09] MEDS: TORSEMIDE 20 MG TAB PO SCH ×2 (08:11→17:18)
[2018-06-09] MEDS: CALCITRIOL 0.25 MCG CAP (S0169) PO SCH (08:11)
[2018-06-09] MEDS: PARoxetine 20 MG TAB PO SCH (08:11)
[2018-06-09] MEDS: LEVEMIR (INSULIN DETEMIR) 1 UNITS/0.01ML SC SCH ×2 (08:11→21:57)
[2018-06-09] MEDS: GABAPENTIN 300 MG CAP PO SCH ×2 (08:12→21:57)
[2018-06-09] MEDS: CEPHALEXIN 500 MG CAP PO SCH (08:12)
[2018-06-09] MEDS: SPIRONOLACTONE 25 MG TAB PO SCH (08:12)
[2018-06-09] MEDS: ISOSORBIDE MON. (IMDUR) 30 MG XR TAB PO SCH (08:12)
[2018-06-09] MEDS: MAGNESIUM OXIDE 400 MG TAB (MAG-OX) PO SCH (08:12)
[2018-06-09] MEDS: CARVedilol 12.5 MG TAB PO SCH ×2 (08:13→21:57)
[2018-06-09] MEDS ORDERED: TORS20TA2 PO (09:06)
[2018-06-09] MEDS ORDERED: CEPH500C PO (09:06)
--- NOTE | 2018-06-09 09:10 | IPNPDOC ---
Subjective Date Seen The patient was seen on 06/09/18. Subjective Chief Complaint/HPI Pt without new concerns this morning. She is eager to go home but worried about her renal function. General: Denies: Fatigue Constitutional: Denies: Chills, Fever ENT: Denies: Head Aches Pulmonary: Denies: Dyspnea, Cough Cardiovascular: Denies: Chest Pain, Palpitations Gastrointestinal: Denies: Nausea, Vomiting, Diarrhea Neurological: Denies: Weakness Psych: Reports: Mood Normal Objective Physical Examination General Exam: Positive: Alert, Cooperative, No Acute Distress ENT Exam: Positive: Mucous membr. moist/pink Chest Exam: Positive: Clear to auscultation, Diminished (2/2 to body habitus); Negative: Wheezing Heart Exam: Positive: Rate Normal, Normal S1, Normal S2; Negative: Gallops, Murmurs, Rubs Abdomen Exam: Positive: Normal bowel sounds, Soft; Negative: Tenderness Extremity Exam: Positive: Normal pulses; Negative: Cyanosis, Edema Skin Exam: Positive: Breakdown (Wound vac in place, heel protector.) Neuro Exam: Positive: Normal Speech Psych Exam: Positive: Mental status NL, Mood NL, Oriented x 3 Assessment /Plan Problems (1) Acute renal failure superimposed on chronic kidney disease Problem Text: 06/09 BUN, Scr cont to rise, scr 2.79 today c/w 2.6 yest, monitor, Nephro following. 06/08/18: recommendations per Nephrology. No current HD. Concerning that her Creatinine is up to 2.6 today. 06/07 Creat 2.4 06/04 Scr 2.25 cont to rise, Nephro is following, pt cont to have good urine output. Net Neg -725 06/03 06/03 Scr 2.09 this morning increased from 1.93 yest, dialysis has been stopped, given Lasix yesterday per nephro. 06/02/18: improved Cr. Has stopped HD. home diuretics recently resumed. HD as per Nephro plan possible dc home p 06/01 dialysis R forearm fistula by Byron Drummond (2) Diabetic foot infection Status: Acute Response to Treatment: Stable, Improving Problem Text: 06/09 Await Wound vac supplies, will need clearance from nephro before d/c. 06/08/18: no changed., work toward home with wound Vac 06/07: wound vac still on. has had long enough course of IV and po antibiotics. blister culture from 06/03: NG, so stop vanco and resume cephalexin 500 bid, pending input from Dr. Calixto regarding whether he sees a continuing need for po antibiotics. will request heel float boot to reduce risk for pressure sore 06/04 Pod to assess after removal of wound vac today, await recommendations. 06/03 Dr Calixto plans to look at foot tomorrow, removing wound vac and make further recommendations, can work on d/c plan from there. 06/02/18: On po antibiotic. Will start to work toward DC plans. Will review case with PFS. 06/01 WBC has normalized, CRP cont to trend down. Cont with Cefazolin/Vanco per ID, likely will need PICC. 05/31 plan for wound closure in OR this afternoon, will need wound vac - per Podiatry. WBC 10.7, slightly lower than yest, CRP consistently trending down. D13 cefazolin (per ID) Complicated MSSA skin and soft tissue infection MSSA with an abscess along the common peroneal tendon sheath 05/31 attempted wound closure by Noelle 05/30 AF, but WBC down to 11.0 (05/28 14.4), CRP 10.9 (05/26 15) 05/21 S/P exploration and packing by Dr. Calixto (3) MSSA (methicillin susceptible Staphylococcus aureus) septicemia Status: Acute Problem Text: 06/07 culture no growth, back on cephalexin, stop vanco 06/04 repeat wound culture obtained 06/03 05/19, 05/20/18 BCX1 each NG (4) Anemia in chronic kidney disease Status: Chronic Problem Text: continues Aranesp/IV Fe c dialysis 06/01 Hgb 8.3 cont to monitor. 05/31 down to 7.7, sp 1u-recheck HO 05/25 sp 2u PRBCs 05/20/18 HO- 05/28 B12 1918 (5) Diastolic CHF Status: Chronic Problem Text: Euvolemic sp HD (6) DM2 (diabetes mellitus, type 2) Status: Chronic Problem Text: BGs mid 100s on i det 20/25 c SSLI (HD i glar 70/60!) (7) HTN (hypertension) Status: Chronic Problem Text: Good control on carve 12.5 BID, ISMN 30, francie 25 (8) UTI (urinary tract infection) Status: Resolved Problem Text: No recurrent symptoms 05/17/18 UCX NG (9) Physical deconditioning Status: Chronic Problem Text: 06/01 needs new PT order placed, done today. 05/27 not safe to dc home (10) Nausea Status: Resolved Response to Treatment: Stable Problem Text: favor 2 uremic gastritis improved c dialysis, off Fe, + panto 40 QD 05/28 4 H pylori P Plan/VTE VTE Prophylaxis Ordered?: Yes (SQ heparin) Plan Therapy: PT VS, I&O, 24H, Fishbone Vital Signs/I&O Vital Signs Date Time Temp Pulse Resp B/P (MAP) Pulse Ox O2 Delivery O2 Flow Rate FiO2 06/09/18 08:13 83 132/70 06/09/18 06:00 98.8 18 93 I&O- Last 24 Hours up to 6 AM 06/09/18 06:00 Intake Total 1750 ml Output Total 1850 ml Balance -100 ml Laboratory Data 24H LABS Laboratory Tests 2 06/08/18 11:39: Bedside Glucose (Misc Panel) 232H 06/08/18 15:09: Urine Appearance CLOUDYH, Urine Color YELLOW, Urine pH 5.0, Urine Specific [place] 1.012, Urine Protein NEGATIVE, Urine Glucose (UA) NEGATIVE, Urine Ketones NEGATIVE, Urine Urobilinogen 0.2, Urine Bilirubin NEGATIVE, Urine Leukocyte Esterase 2+H, Urine Blood 2+H, Urine Nitrite NEGATIVE, Urine WBC (Auto) 61H, Urine RBC (Auto) 15H, Urine Hyaline Casts (Auto) 4, Urine Bacteria (Auto) NEGATIVE, Urine Squamous Epithelial Cells 17, Urine Transitional Epithelial Cells <1, Urine Sperm (Auto) 06/08/18 16:59: Bedside Glucose (Misc Panel) 208H 06/08/18 19:34: Bedside Glucose (Misc Panel) 234H 06/09/18 05:20: Nucleated Red Blood Cells % (auto) 0.0, Blood Urea Nitrogen 61H, Creatinine 2.79H, Sodium Level 137, Potassium Level 4.0, Chloride Level 98, Carbon Dioxide Level 27, Anion Gap 12, Glomerular Filtration Rate 18.1L, Calcium Level 7.8L, Phosphorus Level 4.8, Albumin 2.1L CBC/BMP Laboratory Tests 06/09/18 05:20 Red Blood Count 2.99 L, Mean Corpuscular Volume 96.3 H, Mean Corpuscular Hemoglobin 29.1, Mean Corpuscular Hemoglobin Concent 30.2 L, Red Cell Distribution Width 14.6 H, Anion Gap 12 Microbiology Microbiology 06/03/18 Gram Stain - Final, Resulted 06/03/18 Wound Culture - Preliminary, Resulted MEGHAN VELÁSQUEZ PA-C Jun 09, 2018 09:10
[2018-06-09] MEDS: DARBEPOETIN 100 MCG/0.5 ML *NON-DIALYSIS* SYRINGE (J0881) SC SCH (10:22)
[2018-06-09 14:00] VITALS: BP 139/56
--- NOTE | 2018-06-09 18:34 | IPN ---
DATE: 06/09/2018 Mrs. Narayan is seen this morning on her bedside. She denies any nausea, vomiting, dyspnea, or chest pain. She has been feeling somewhat discouraged due to decline in kidney function once again. She did have dialysis about 2 weeks ago and then after two dialysis treatments her kidney function did improve, but last few days it has been going down again. She still has her Perm-A-Cath in place. PHYSICAL EXAMINATION: Temperature 97.2 degrees Fahrenheit, heart rate 74 per minute, blood pressure 132/70 mm of mercury, and oxygen saturation 91%. Head is atraumatic. Neck is supple and without any abnormal jugular venous distention (JVD). There is no oral thrush or ulcers. Heart sounds are regular and lungs with slightly diminished breath sounds at bases bilaterally. Abdomen soft and nontender and without a palpable organomegaly. Bowel sounds are normal. Extremities have no cyanosis or clubbing. Neurologically, she is awake, alert and oriented times three. Her left foot wound is covered with wound vacuum-assisted closure (VAC) and dressing. Today's labs show WBC count 6.0, hemoglobin 8.7, hematocrit 28.8, platelets 210. Sodium 137, potassium 4.0, CO2 of 27, BUN 61, and creatinine 2.79. Her GFR is about 18 now. She had a urinalysis done yesterday, which was ordered by primary care team. She had 2+ blood and 61 WBC, 15 RBC. A urine culture has been sent now, and it is pending. PROBLEMS: 1. Acute renal failure superimposed on chronic kidney disease. The patient continues to have decline in kidney function. She was not in negative fluid balance yesterday or day before. At this point, we will continue to monitor her kidney function on a daily basis. There is no emergent indication for dialysis today; however, it is quite likely that she will require dialysis again. It is important to note that she has advanced stage IV of chronic kidney disease even at baseline. 2. Congestive heart failure. Her volume status is still slightly decompensated. Her weight has not changed over last several days. There is no trend for a negative fluid balance, though she has been on diuretics. We will continue with current diuretic dose in order to prevent worsening of volume status. I am not increasing the diuretic due to decline in kidney function. 3. Anemia. She has received intravenous iron and is due for a dose of Aranesp today. We will continue with the same. Anemia is stable at this point. 4. Infected wound, left foot. She has been on Keflex and did have debridement done, and now she has a wound VAC. I feel that antibiotic can probably be stopped now. 5. Urinary tract infection (UTI). She seems to have a UTI, which could be fungal due to prolonged antibiotic use. We will wait for culture results and not start a new antibiotic. She has been on Keflex, which will be stopped today. I have discussed this with Dr. Wilson. 5. Diabetes. Her diabetes seems to be reasonably well controlled. She will continue with current insulin regimen.
[2018-06-09 20:00] VITALS: BP 112/62
[2018-06-09] MEDS: PANTOPRAZOLE 40MG TAB (PROTONIX) PO SCH (21:57)
[2018-06-09] MEDS: ASPIRIN 81 MG ENTERIC TAB PO SCH (21:57)
[2018-06-09] MEDS: CYCLOBENZAPRINE 10 MG TAB PO PRN (21:57)
[2018-06-09] MEDS: ATORVASTATIN 20 MG TAB PO SCH (21:57)
[2018-06-09 22:00] VITALS: BP 112/62
[2018-06-09] MEDS: ONDANSETRON 4MG/2ML VIAL (J2405) IV PRN (23:56)
[2018-06-10 02:00] VITALS: BP 118/64
[2018-06-10 06:00] VITALS: BP 124/60
[2018-06-10] MEDS: HEPARIN SOD (PORCINE) 5000 UNITS/ML VIAL SC SCH ×3 (06:02→21:57)
[2018-06-10 06:52] LABS: HEMOGLOBIN 8.9 g/dl (12.0-15.5); MEAN CORPUSCULAR HEMOGLOBIN 29.4 pg (27.0-33.0); MEAN CORPUSCULAR HGB CONC 30.7 g/dl (32.0-36.5); MEAN CORPUSCULAR VOLUME 95.7 fl (80.0-96.0); PLATELET COUNT, AUTOMATED 211 10^3/uL (150-450); RED BLOOD COUNT 3.03 10^6/uL (4.00-5.40); WHITE BLOOD COUNT 5.4 10^3/uL (4.0-10.0)
[2018-06-10 07:06] LABS: ALBUMIN 2.4 GM/DL (3.2-5.2); CALCIUM LEVEL 8.4 MG/DL (8.8-10.2); CREATININE FOR GFR 2.84 MG/DL (0.55-1.30); GLOMERULAR FILTRATION RATE 17.8 (>45); PHOSPHORUS LEVEL 5.3 MG/DL (2.5-4.9); POTASSIUM SERUM 3.9 MEQ/L (3.5-5.1)
[2018-06-10] MEDS: HumaLOG INSULIN (NovoLOG) PER UNIT SC SCH ×4 (08:10→21:57)
[2018-06-10] MEDS: PARoxetine 20 MG TAB PO SCH (08:11)
[2018-06-10] MEDS: LEVEMIR (INSULIN DETEMIR) 1 UNITS/0.01ML SC SCH ×2 (08:11→21:58)
[2018-06-10] MEDS: CALCITRIOL 0.25 MCG CAP (S0169) PO SCH (08:12)
[2018-06-10] MEDS: TORSEMIDE 20 MG TAB PO SCH (08:12)
[2018-06-10] MEDS: ISOSORBIDE MON. (IMDUR) 30 MG XR TAB PO SCH (08:12)
[2018-06-10] MEDS: MAGNESIUM OXIDE 400 MG TAB (MAG-OX) PO SCH (08:12)
[2018-06-10] MEDS: SPIRONOLACTONE 25 MG TAB PO SCH (08:12)
[2018-06-10] MEDS: GABAPENTIN 300 MG CAP PO SCH ×2 (08:13→21:56)
[2018-06-10] MEDS: CARVedilol 12.5 MG TAB PO SCH ×2 (08:13→21:57)
--- NOTE | 2018-06-10 09:17 | IPNPDOC ---
Subjective Date Seen The patient was seen on 06/10/18. Subjective Chief Complaint/HPI Pt this morning without new concerns. She is feeling alright. General: Denies: Fatigue Constitutional: Denies: Chills, Fever Pulmonary: Denies: Dyspnea, Cough Cardiovascular: Denies: Chest Pain, Palpitations Gastrointestinal: Denies: Nausea, Vomiting, Diarrhea Neurological: Reports: Weakness Psych: Reports: Mood Normal Objective Physical Examination General Exam: Positive: Alert, Cooperative, No Acute Distress ENT Exam: Positive: Mucous membr. moist/pink Chest Exam: Positive: Clear to auscultation, Diminished (2/2 to body habitus); Negative: Wheezing Heart Exam: Positive: Rate Normal, Normal S1, Normal S2; Negative: Gallops, Murmurs, Rubs Abdomen Exam: Positive: Normal bowel sounds, Soft; Negative: Tenderness Extremity Exam: Positive: Normal pulses; Negative: Cyanosis, Edema Skin Exam: Positive: Breakdown (Wound vac in place, heel protector.) Neuro Exam: Positive: Normal Speech Psych Exam: Positive: Mental status NL, Mood NL, Oriented x 3 Assessment /Plan Problems (1) Acute renal failure superimposed on chronic kidney disease Problem Text: 06/10 BUMN, Scr cont to rise, nephro following. 06/09 BUN, Scr cont to rise, scr 2.79 today c/w 2.6 yest, monitor, Nephro following. 06/08/18: recommendations per Nephrology. No current HD. Concerning that her Creatinine is up to 2.6 today. 06/07 Creat 2.4 06/04 Scr 2.25 cont to rise, Nephro is following, pt cont to have good urine ou tput. Net Neg -725 06/03 06/03 Scr 2.09 this morning increased from 1.93 yest, dialysis has been stopped, given Lasix yesterday per nephro. 06/02/18: improved Cr. Has stopped HD. home diuretics recently resumed. HD as per Nephro plan possible dc home p 06/01 dialysis R forearm fistula by Byron Drummond (2) Diabetic foot infection Status: Acute Response to Treatment: Stable, Improving Problem Text: 06/10 Anticipate supplies today. 06/09 Await Wound vac supplies, will need clearance from nephro before d/c. 06/08/18: no changed., work toward home with wound Vac 06/07: wound vac still on. has had long enough course of IV and po antibiotics. blister culture from 06/03: NG, so stop vanco and resume cephalexin 500 bid, pending input from Dr. Calixto regarding whether he sees a continuing need for po antibiotics. will request heel float boot to reduce risk for pressure sore 06/04 Pod to assess after removal of wound vac today, await recommendations. 06/03 Dr Calixto plans to look at foot tomorrow, removing wound vac and make further recommendations, can work on d/c plan from there. 06/02/18: On po antibiotic. Will start to work toward DC plans. Will review case with PFS. 06/01 WBC has normalized, CRP cont to trend down. Cont with Cefazolin/Vanco per ID, likely will need PICC. 05/31 plan for wound closure in OR this afternoon, will need wound vac - per Podiatry. WBC 10.7, slightly lower than yest, CRP consistently trending down. D13 cefazolin (per ID) Complicated MSSA skin and soft tissue infection MSSA with an abscess along the common peroneal tendon sheath 05/31 attempted wound closure by Noelle 05/30 AF, but WBC down to 11.0 (05/28 14.4), CRP 10.9 (05/26 15) 05/21 S/P exploration and packing by Dr. Calixto (3) MSSA (methicillin susceptible Staphylococcus aureus) septicemia Status: Acute Problem Text: 06/07 culture no growth, back on cephalexin, stop vanco 06/04 repeat wound culture obtained 06/03 05/19, 05/20/18 BCX1 each NG (4) Anemia in chronic kidney disease Status: Chronic Problem Text: continues Aranesp/IV Fe c dialysis 06/01 Hgb 8.3 cont to monitor. 05/31 down to 7.7, sp 1u-recheck HO 05/25 sp 2u PRBCs 05/20/18 HO- 05/28 B12 1918 (5) Diastolic CHF Status: Chronic Problem Text: Euvolemic sp HD (6) DM2 (diabetes mellitus, type 2) Status: Chronic Problem Text: BGs mid 100s on i det 20/25 c SSLI (HD i glar 70/60!) (7) HTN (hypertension) Status: Chronic Problem Text: Good control on carve 12.5 BID, ISMN 30, francie 25 (8) UTI (urinary tract infection) Status: Resolved Problem Text: No recurrent symptoms 05/17/18 UCX NG (9) Physical deconditioning Status: Chronic Problem Text: 06/01 needs new PT order placed, done today. 05/27 not safe to dc home (10) Nausea Status: Resolved Response to Treatment: Stable Problem Text: favor 2 uremic gastritis improved c dialysis, off Fe, + panto 40 QD 05/28 4 H pylori P Plan/VTE VTE Prophylaxis Ordered?: Yes (SQ heparin) Plan Therapy: PT VS, I&O, 24H, Fishbone Vital Signs/I&O Vital Signs Date Time Temp Pulse Resp B/P (MAP) Pulse Ox O2 Delivery O2 Flow Rate FiO2 06/10/18 08:13 66 124/60 06/10/18 06:00 97.4 14 92 I&O- Last 24 Hours up to 6 AM 06/10/18 06:00 Intake Total 1860 ml Output Total 1875 ml Balance -15 ml Laboratory Data 24H LABS Laboratory Tests 2 06/09/18 11:42: Bedside Glucose (Misc Panel) 219H 06/09/18 17:11: Bedside Glucose (Misc Panel) 244H 06/09/18 19:36: Bedside Glucose (Misc Panel) 254H 06/10/18 06:07: Nucleated Red Blood Cells % (auto) 0.0, Blood Urea Nitrogen 66H, Creatinine 2.84H, Sodium Level 136, Potassium Level 3.9, Chloride Level 97L, Carbon Dioxide Level 32, Anion Gap 7L, Glomerular Filtration Rate 17.8L, Calcium Level 8.4L, Phosphorus Level 5.3H, Albumin 2.4L CBC/BMP Laboratory Tests 06/10/18 06:07 Red Blood Count 3.03 L, Mean Corpuscular Volume 95.7, Mean Corpuscular Hemoglobin 29.4, Mean Corpuscular Hemoglobin Concent 30.7 L, Red Cell Distribution Width 14.6 H, Anion Gap 7 L Microbiology Microbiology 06/09/18 Urine Culture, Received Pending 06/03/18 Gram Stain - Final, Complete 06/03/18 Wound Culture - Final, Complete Propionibacterium Acnes MEGHAN VELÁSQUEZ PA-C Jun 10, 2018 09:17
[2018-06-10 10:00] VITALS: BP 123/59
--- NOTE | 2018-06-10 12:10 | IPN ---
DATE OF VISIT: 06/10/2018 Mrs. Narayan is seen this morning on her bedside. She is sitting in the chair. She denies any nausea, vomiting, dyspnea, chest pain, fever or chills. She has a wound Vac dressing on her left foot and her home wound Vac is being delivered. On physical examination, temperature 97.7 degrees Fahrenheit, heart rate 64 per minute and respiratory rate 16 per minute. Blood pressure 123/59 mmHg and oxygen saturation 94% on room air. Intake and output records from yesterday show total intake 1660 and output 1275. Her weight is 123.1 kg. Head is atraumatic. Neck is supple and jugular venous distention (JVD) is not elevated. Lungs clear to auscultation and heart sounds are regular without a pericardial friction rub. Abdomen soft and nontender and bowel sounds are normal. Extremities have no cyanosis or clubbing. Lower extremity edema is improved. Left foot is in the wound Vac dressing. Today's labs show WBC count 5.4, hemoglobin 8.9 and hematocrit 29.0. Sodium 136, potassium 3.9, chloride 97, CO2 32, BUN 66, creatinine 2.84, glucose 237 and calcium 8.4. PROBLEMS: 1. Acute kidney injury superimposed on chronic kidney disease. She has gradual increase in her BUN and creatinine over the last few days despite no nephrotoxic medications and slightly positive fluid balance. I am going to cut down her diuretic dose and see if that will help. Her leg edema has improved. I have made her torsemide dose 40 mg to just once a day now. Renal profile will be checked again tomorrow morning. 2. Anemia. She has received intravenous iron and is also receiving weekly dose of Aranesp. Her anemia is stable and does not need any other intervention. 3. Left foot infected wound. The patient is currently on wound Vac dressing and antibiotics have been stopped. She will be followed up by Dr. Calixto. 4. Disposition. We are waiting for renal function to stabilize. Once her kidney function levels off or improves, she can be discharged to home.
[2018-06-10 14:00] VITALS: BP 121/61
[2018-06-10] MEDS: ATORVASTATIN 20 MG TAB PO SCH (21:56)
[2018-06-10] MEDS: PANTOPRAZOLE 40MG TAB (PROTONIX) PO SCH (21:57)
[2018-06-10] MEDS: ASPIRIN 81 MG ENTERIC TAB PO SCH (21:57)
[2018-06-10] MEDS: CYCLOBENZAPRINE 10 MG TAB PO PRN (21:59)
[2018-06-10 22:00] VITALS: BP 148/88
[2018-06-11 05:54] LABS: HEMOGLOBIN 8.8 g/dl (12.0-15.5); MEAN CORPUSCULAR HEMOGLOBIN 29.8 pg (27.0-33.0); MEAN CORPUSCULAR HGB CONC 31.4 g/dl (32.0-36.5); MEAN CORPUSCULAR VOLUME 94.9 fl (80.0-96.0); PLATELET COUNT, AUTOMATED 216 10^3/uL (150-450); RED BLOOD COUNT 2.95 10^6/uL (4.00-5.40)
[2018-06-11 06:00] VITALS: BP 135/62
[2018-06-11] MEDS: HEPARIN SOD (PORCINE) 5000 UNITS/ML VIAL SC SCH ×3 (06:13→20:23)
[2018-06-11 06:18] LABS: ALBUMIN 2.3 GM/DL (3.2-5.2); CALCIUM LEVEL 8.4 MG/DL (8.8-10.2); CREATININE FOR GFR 3.16 MG/DL (0.55-1.30); GLOMERULAR FILTRATION RATE 15.7 (>45); PHOSPHORUS LEVEL 5.3 MG/DL (2.5-4.9); POTASSIUM SERUM 4.2 MEQ/L (3.5-5.1)
[2018-06-11] MEDS: HumaLOG INSULIN (NovoLOG) PER UNIT SC SCH ×4 (07:58→20:23)
[2018-06-11 08:20] VITALS: BP 124/82
--- NOTE | 2018-06-11 08:41 | IPNPDOC ---
Subjective Date Seen The patient was seen on 06/11/18. Subjective Chief Complaint/HPI Pt this morning is quite discouraged with her persistently rising renal function. She has no other concerns. General: Denies: Fatigue Constitutional: Denies: Chills, Fever Pulmonary: Denies: Dyspnea, Cough Cardiovascular: Denies: Chest Pain, Palpitations Gastrointestinal: Denies: Nausea, Vomiting, Diarrhea Neurological: Denies: Weakness Psych: Reports: Mood Normal Objective Physical Examination General Exam: Positive: Alert, Cooperative, No Acute Distress ENT Exam: Positive: Mucous membr. moist/pink Chest Exam: Positive: Clear to auscultation, Diminished (2/2 to body habitus); Negative: Wheezing Heart Exam: Positive: Rate Normal, Normal S1, Normal S2; Negative: Gallops, Murmurs, Rubs Abdomen Exam: Positive: Normal bowel sounds, Soft; Negative: Tenderness Extremity Exam: Positive: Normal pulses; Negative: Cyanosis, Edema Skin Exam: Positive: Breakdown (Wound vac in place, heel protector.) Neuro Exam: Positive: Normal Speech Psych Exam: Positive: Mental status NL, Mood NL, Oriented x 3 Assessment /Plan Problems (1) Acute renal failure superimposed on chronic kidney disease Problem Text: 06/11 BUIN, Scr cont to rise, Nephro following 06/10 BUN, Scr cont to rise, nephro following. 06/09 BUN, Scr cont to rise, scr 2.79 today c/w 2.6 yest, monitor, Nephro following. 06/08/18: recommendations per Nephrology. No current HD. Concerning that her Creatinine is up to 2.6 today. 06/07 Creat 2.4 06/04 Scr 2.25 cont to rise, Nephro is following, pt cont to have good urine output. Net Neg -725 06/03 06/03 Scr 2.09 this morning increased from 1.93 yest, dialysis has been stopped, given Lasix yesterday per nephro. 06/02/18: improved Cr. Has stopped HD. home diuretics recently resumed. HD as per Nephro plan possible dc home p 06/01 dialysis R forearm fistula by Byron Drummond (2) Diabetic foot infection Status: Acute Response to Treatment: Stable, Improving Problem Text: 06/10 Anticipate supplies today. 06/09 Await Wound vac supplies, will need clearance from nephro before d/c. 06/08/18: no changed., work toward home with wound Vac 06/07: wound vac still on. has had long enough course of IV and po antibiotics. blister culture from 06/03: NG, so stop vanco and resume cephalexin 500 bid, p ending input from Dr. Calixto regarding whether he sees a continuing need for po antibiotics. will request heel float boot to reduce risk for pressure sore 06/04 Pod to assess after removal of wound vac today, await recommendations. 06/03 Dr Calixto plans to look at foot tomorrow, removing wound vac and make further recommendations, can work on d/c plan from there. 06/02/18: On po antibiotic. Will start to work toward DC plans. Will review case with PFS. 06/01 WBC has normalized, CRP cont to trend down. Cont with Cefazolin/Vanco per ID, likely will need PICC. 05/31 plan for wound closure in OR this afternoon, will need wound vac - per Podiatry. WBC 10.7, slightly lower than yest, CRP consistently trending down. D13 cefazolin (per ID) Complicated MSSA skin and soft tissue infection MSSA with an abscess along the common peroneal tendon sheath 05/31 attempted wound closure by Noelle 05/30 AF, but WBC down to 11.0 (05/28 14.4), CRP 10.9 (05/26 15) 05/21 S/P exploration and packing by Dr. Calixto (3) MSSA (methicillin susceptible Staphylococcus aureus) septicemia Status: Acute Problem Text: 06/07 culture no growth, back on cephalexin, stop vanco 06/04 repeat wound culture obtained 06/03 05/19, 05/20/18 BCX1 each NG (4) Anemia in chronic kidney disease Status: Chronic Problem Text: continues Aranesp/IV Fe c dialysis 06/01 Hgb 8.3 cont to monitor. 05/31 down to 7.7, sp 1u-recheck HO 05/25 sp 2u PRBCs 05/20/18 HO- 05/28 B12 1918 (5) Diastolic CHF Status: Chronic Problem Text: Euvolemic sp HD (6) DM2 (diabetes mellitus, type 2) Status: Chronic Problem Text: BGs mid 100s on i det 20 c SSLI (HD i glar 70/60!) (7) HTN (hypertension) Status: Chronic Problem Text: Good control on carve 12.5 BID, ISMN 30, francie 25 (8) UTI (urinary tract infection) Status: Resolved Problem Text: No recurrent symptoms 05/17/18 UCX NG (9) Physical deconditioning Status: Chronic Problem Text: 06/01 needs new PT order placed, done today. 05/27 not safe to dc home (10) Nausea Status: Resolved Response to Treatment: Stable Problem Text: favor 2 uremic gastritis improved c dialysis, off Fe, + panto 40 QD 05/28 4 H pylori P Plan/VTE VTE Prophylaxis Ordered?: Yes (SQ heparin) Plan Therapy: PT VS, I&O, 24H, Fishbone Vital Signs/I&O Vital Signs Date Time Temp Pulse Resp B/P (MAP) Pulse Ox O2 Delivery O2 Flow Rate FiO2 06/11/18 08:20 97.8 66 20 124/82 (96) 98 I&O- Last 24 Hours up to 6 AM 06/11/18 06:00 Intake Total 2150 ml Output Total 1600 ml Balance 550 ml Laboratory Data 24H LABS Laboratory Tests 2 06/10/18 11:21: Bedside Glucose (Misc Panel) 265H 06/10/18 16:25: Bedside Glucose (Misc Panel) 315H 06/10/18 20:24: Bedside Glucose (Misc Panel) 282H 06/11/18 05:16: Nucleated Red Blood Cells % (auto) 0.0, Blood Urea Nitrogen 72H, Creatinine 3.16H, Sodium Level 135L, Potassium Level 4.2, Chloride Level 97L, Carbon Dioxid e Level 31, Anion Gap 7L, Glomerular Filtration Rate 15.7L, Calcium Level 8.4L, Phosphorus Level 5.3H, Albumin 2.3L CBC/BMP Laboratory Tests 06/11/18 05:16 Red Blood Count 2.95 L, Mean Corpuscular Volume 94.9, Mean Corpuscular Hemoglobin 29.8, Mean Corpuscular Hemoglobin Concent 31.4 L, Red Cell Distribution Width 14.6 H, Anion Gap 7 L Microbiology Microbiology 06/09/18 Urine Culture - Final, Complete 06/03/18 Gram Stain - Final, Complete 06/03/18 Wound Culture - Final, Complete Propionibacterium Acnes MEGHAN VELÁSQUEZ-C Jun 11, 2018 08:41
[2018-06-11] MEDS ORDERED: TORSEMIDE 20 MG TAB PO SCH (09:00)
[2018-06-11] MEDS: MAGNESIUM OXIDE 400 MG TAB (MAG-OX) PO SCH (09:28)
[2018-06-11] MEDS: PARoxetine 20 MG TAB PO SCH (09:29)
[2018-06-11] MEDS: GABAPENTIN 300 MG CAP PO SCH ×2 (09:29→20:22)
[2018-06-11] MEDS: ISOSORBIDE MON. (IMDUR) 30 MG XR TAB PO SCH (09:29)
[2018-06-11] MEDS: CARVedilol 12.5 MG TAB PO SCH ×2 (09:30→20:22)
[2018-06-11] MEDS: LEVEMIR (INSULIN DETEMIR) 1 UNITS/0.01ML SC SCH ×2 (09:31→20:23)
[2018-06-11] MEDS: CALCITRIOL 0.25 MCG CAP (S0169) PO SCH (10:31)
[2018-06-11 14:17] VITALS: BP 130/82
--- NOTE | 2018-06-11 18:28 | IPN ---
DATE: 06/11/2018 Mrs. Narayan was seen this morning on her bedside. She is feeling about the same but does have increased tremulousness of her hands. She denies any nausea, vomiting, dyspnea or chest pain. Her kidney function has been gradually worsening over last few days. Her lower extremity edema has improved and she has a wound vac dressing on her left foot. PHYSICAL EXAMINATION: Temperature 97.4 degrees Fahrenheit, heart rate 65 per minute and respiratory rate 20 per minute. Blood pressure 124/82 mmHg and oxygen saturation 98% on room air. Head is atraumatic. Neck is supple and without JVD or thyroid enlargement. She has no oral thrush or ulcers. Heart: Sounds are regular and lungs sound clear to auscultation. Abdomen is soft and nontender and without a palpable organomegaly. Bowel sounds are normal. Extremities have no cyanosis or clubbing. Left foot is in wound vac dressing. Lower extremity edema has improved. Intake and output records from yesterday show a negative fluid balance of only 30 mL. Overall last 4 days she has been in positive fluid balance. Today's labs show WBC count 6.0, hemoglobin 8.8 and hematocrit 28.0. Platelets 216. Sodium 135, potassium 4.2, chloride 97, CO2 31, BUN 72 and creatinine 3.16. Glucose 244 and calcium 8.4. PROBLEMS: 1. Acute renal failure superimposed on chronic kidney disease. She has gradual decline in kidney function over last several days. Her diuretic was cut down yesterday and she has been in slightly positive fluid balance but kidney function still declined slightly since yesterday. I am going to stop her diuretic completely for now and we will recheck her renal profile tomorrow morning. There is no emergent need for dialysis today and we will make a final decision about dialysis again tomorrow morning. I have discussed with the patient at length and explained to her in all details. I have also answered all her questions. 2. Anemia. Her anemia has been stable and no changes noted. He received weekly dose of Aranesp. She has already received IV iron. 3. Peripheral edema / congestive heart failure. Volume status has improved and her diuretic is being stopped for now in view of declining kidney function. She has not been in negative fluid balance over last 4 days. It remains to be seen how she does in next 24 hours. 4. Hypertension. Blood pressure is well-controlled on current medications and no changes are being made today. 5. Left foot infected wound. The patient remains on wound vac dressing and no systemic antibiotics at present.
[2018-06-11] MEDS: ACETAMINOPHEN TAB 650MG DOSE (2X325MG) PO PRN (18:31)
[2018-06-11 18:45] VITALS: BP 150/69
[2018-06-11] MEDS: PANTOPRAZOLE 40MG TAB (PROTONIX) PO SCH (20:21)
[2018-06-11] MEDS: ATORVASTATIN 20 MG TAB PO SCH (20:21)
[2018-06-11] MEDS: ASPIRIN 81 MG ENTERIC TAB PO SCH (20:21)
[2018-06-11] MEDS: CYCLOBENZAPRINE 10 MG TAB PO PRN (20:22)
[2018-06-11 22:00] VITALS: BP 145/70
[2018-06-12 02:00] VITALS: BP 140/60
[2018-06-12] MEDS: HEPARIN SOD (PORCINE) 5000 UNITS/ML VIAL SC SCH (05:40)
[2018-06-12 06:00] VITALS: BP 136/60
[2018-06-12 06:23] LABS: HEMATOCRIT 29.3 % (36.0-47.0); HEMOGLOBIN 9.1 g/dl (12.0-15.5); MEAN CORPUSCULAR HEMOGLOBIN 29.5 pg (27.0-33.0); MEAN CORPUSCULAR HGB CONC 31.1 g/dl (32.0-36.5); MEAN CORPUSCULAR VOLUME 95.1 fl (80.0-96.0); PLATELET COUNT, AUTOMATED 230 10^3/uL (150-450); RED BLOOD COUNT 3.08 10^6/uL (4.00-5.40); WHITE BLOOD COUNT 5.4 10^3/uL (4.0-10.0)
[2018-06-12 06:44] LABS: ALBUMIN 2.3 GM/DL (3.2-5.2); CALCIUM LEVEL 8.8 MG/DL (8.8-10.2); CREATININE FOR GFR 2.84 MG/DL (0.55-1.30); GLOMERULAR FILTRATION RATE 17.8 (>45); PHOSPHORUS LEVEL 4.9 MG/DL (2.5-4.9); POTASSIUM SERUM 4.4 MEQ/L (3.5-5.1)
[2018-06-12] MEDS: LEVEMIR (INSULIN DETEMIR) 1 UNITS/0.01ML SC SCH (08:04)
[2018-06-12] MEDS: HumaLOG INSULIN (NovoLOG) PER UNIT SC SCH ×2 (08:05→11:48)
[2018-06-12 08:45] VITALS: BP 118/60
[2018-06-12] MEDS ORDERED: DARBEPOETIN 300 MCG/0.6 ML *NON-DIALYSIS* SYRINGE (J0881) SC SCH (10:00)
[2018-06-12] MEDS: CALCITRIOL 0.25 MCG CAP (S0169) PO SCH (10:06)
[2018-06-12] MEDS: GABAPENTIN 300 MG CAP PO SCH (10:06)
[2018-06-12 10:07] VITALS: BP 118/60
[2018-06-12] MEDS: CARVedilol 12.5 MG TAB PO SCH (10:07)
[2018-06-12] MEDS: MAGNESIUM OXIDE 400 MG TAB (MAG-OX) PO SCH (10:08)
[2018-06-12] MEDS: PARoxetine 20 MG TAB PO SCH (10:08)
[2018-06-12] MEDS: ISOSORBIDE MON. (IMDUR) 30 MG XR TAB PO SCH (10:08)
--- NOTE | 2018-06-12 11:10 | IPN ---
DATE: 06/12/2018 Mrs. Narayan is seen this morning on her bedside. She is feeling well and eating breakfast. She denies any nausea, vomiting, dyspnea or chest pain. Yesterday her diuretics were held due to worsening kidney function. PHYSICAL EXAMINATION: Temperature 97.2 degrees Fahrenheit, heart rate 68 per minute and respiratory rate 20 per minute. Blood pressure 118/60 mmHg and oxygen saturation 97% on room air. Head is atraumatic. Neck is supple and without jugular venous distention (JVD) or thyroid enlargement. Heart sounds regular and lungs clear to auscultation. Abdomen: Soft and nontender and bowel sounds are present. Extremities: Have no cyanosis or clubbing. Left foot with wound VAC dressing. Neurologically she is awake, alert and oriented times three. Intake and output records from yesterday show total intake 1400 and output 1550. Today's labs show WBC count 5.4, hemoglobin 9.1 and hematocrit 29.3. Platelets 230. Sodium 134, potassium 4.4, CO2 of 30, BUN 72 and creatinine 2.84. Glucose 299, calcium 8.8 and phosphorus 4.9. PROBLEM #1: Acute renal failure superimposed on chronic kidney disease, probably multifactorial. She has been in slightly positive fluid balance over the last few days. However, kidney function was declining. Her diuretics were held yesterday and today I see some improvement in kidney function. Even yesterday, she was in slight negative fluid balance. The patient does not need dialysis anymore and her Perma-Cath is being removed today. PROBLEM #2: Congestive heart failure. Volume status has been very well compensated and diuretics were held. I believe that we can resume torsemide 40 mg just once a day on June 14, 2018. PROBLEM #3: Anemia. Her anemia is slowly improving. We will give her one more dose of Aranesp 100 mcg today prior to discharge. PROBLEM #4: Infected wound left foot. The patient had debridements done and now she has a wound VAC dressing. She will follow up with Dr. Calixto. PROBLEM #5: Disposition. From a renal standpoint, the patient can be discharged to home today and follow up in my office in 1 week. The patient was given instructions and all her questions were also answered.
[2018-06-12 13:29] VITALS: BP 130/58
[2018-06-12] MEDS ORDERED: INSUHUMDS SC (14:04)
[2018-06-12] MEDS ORDERED: PANT40TA3 PO (14:04)
[2018-06-12] MEDS ORDERED: LANTINJ4 SC (14:08)
--- NOTE | 2018-06-13 08:46 | RO ---
DATE OF PROCEDURE: 06/12/2018 PREPROCEDURE DIAGNOSIS: POSTPROCEDURE DIAGNOSIS: PROCEDURE: Removal of right internal jugular vein Perma-Cath. SURGEON: Daniella Dong MD PAYROLL PROCESSOR: None. ANESTHESIA: None. INDICATIONS FOR PROCEDURE: Improved kidney function and no need for dialysis. DESCRIPTION OF PROCEDURE: The patient had a Perma-Cath placed a couple of weeks ago and required temporary hemodialysis due to acute renal failure. Over the last couple of weeks, her kidney function improved and has remained stable. Last few days her kidney function took another decline but has started to improve. I do not feel that she needs dialysis anymore. She was last dialyzed about 2 weeks ago. I explained to the patient, and she consented for removal of catheter. We removed the dressing and then removed the sutures. Catheter was then removed and digital pressure held at the exit site. Hemostasis was secured. Catheter was intact, removed in full. No complications and the patient tolerated the procedure well. Pressure dressing applied.
--- NOTE | 2018-06-13 15:01 | DSES ---
DATE OF ADMISSION: 05/17/2018 DATE OF DISCHARGE: 06/12/2018 DIAGNOSES: Sepsis due to left foot infection. Chronic open wound left foot. Diabetes mellitus. Hypertension. Chronic kidney disease, stage IV. Hyponatremia. Hyperlipidemia Methicillin-sensitive Staphylococcus aureus. Anemia of chronic kidney disease. Diastolic congestive heart failure. Urinary tract infection. Physical deconditioning. PROCEDURES: Incision of complex abscess with peroneal tendon sheath lateral compartment abscess left foot, Dr. Calixto. Insertion of external jugular vein catheter, Dr. Matthews. Excisional debridement through muscle, skin and subcutaneous left foot with application of wound VAC, Dr. Calixto. BRIEF HISTORY AND PHYSICAL: This is a 67-year-old woman admitted to our facility after a fall in which she injured her left foot. The fall occurred the day prior to admission, but she may have had a fever prior to the fall. She is known to have chronic renal disease, diabetes, history of prior toe amputations. She is on insulin. She had hypertension. Her admission examination showed that her systolic blood pressure was 186, temperature 101.6, pulse 94. Her lungs were clear. Heart showed a regular rhythm without any murmur, click or gallop. Abdomen: Soft, obese, nontender. She had multiple prior amputations of her toes. She had a large wound 3 inches on her left lateral foot draining some fluid, some surrounding erythema. She was oriented to time, place and person. Admission labs showed sodium 129, creatinine 2.9, white count was 19,700, hemoglobin was 9, platelet count 188,000. Her urine had 11 white cells, trace leukocytes. She was assessed for flu; that was negative. Chest x-ray showed atelectasis in the right lower lobe. Foot x-ray and tibia-fibula (tib-fib) x-ray was negative. She had multiple labs during her stay here. By 06/01/2018 her white count had dropped to 8900, on 06/12/2017 it was 5400. Her hemoglobin was 7.7 on 05/31/2018, on 06/12/2018 it was 9.1. Her creatinine went up to 3.02, down to 2.9 and then up to 3.6, down to 3.3, and then 1.82 on 05/26/2018, it was 2.56 on 05/31/2018, 2.41 on 06/07/2018, 3.16 on 06/11/2018, 2.84 on 06/12/2018 with a BUN of 72, sodium 134, potassium 4.4, glucose 299, albumin 2.3, calcium 8.8, phosphorus 4.9. Multiple blood sugars done, most of which were in the 200s. COURSE IN THE FACILITY. The patient was admitted to our facility for septic foot. She was placed on antibiotics. The manufacturing storeperson was consulted. It appears that he did some bedside debridement and some operative treatment. She had additional debridements in the hospital and was started on a wound VAC. She was seen by nephrology; she was having issues - because of development of uremic symptoms, she was dialyzed and seemed to do reasonably well with that. She was initially viewed by the blocker polishing as being permanently dialysis dependent; however, at the time of her discharge from the hospital, she was no longer getting dialysis and her dialysis catheter was removed by the blocker polishing prior to her discharge. On 06/12/2018, when seen by the blocker polishing, they indicated that from their point of view, she was able to leave the facility with follow up in their office within the week. On the day of her discharge, her temperature was 97.8, pulse was 62 and regular, blood pressure 138/58, respirations 12, oxygen (O2) saturation 98% on room air. She is alert, pleasant, cooperative, not at all in any distress. Her lungs are clear. Heart had a regular rhythm without any murmur, click or gallop. There is a dressing over her right upper chest. Abdomen: Soft, obese, nontender without any masses, organomegaly. Bowel sounds are active. She had a wound VAC on her left foot, which did not appear swollen, tender or erythematous and was missing a number toes. She was discharged. She is to have a no added salt diet with carbohydrate constant control. Activity was to be as tolerated with a walker. She was to be using the wound VAC [id number], to be changed Thursday, Thursday and Thursday either by the home health agency or with her manufacturing storeperson. Medications were aspirin 81 mg daily, atorvastatin 40 mg in the evening, calcitriol 0.25 mcg daily, carvedilol 12.5 mg twice a day, cyclobenzaprine 10 mg nightly as needed for spasms, Aranesp 100 mcg, dosage and frequency to be determined by nephrology. She had received some on 06/12/2018. Gabapentin 300 mg in the morning, 600 mg at night. Lantus 25 units twice a day. She may need significantly more as she was taking 60 units in the morning and 70 units at night at home. She is on sliding scale Humalog insulin. Isosorbide 30 mg daily, magnesium oxide 400 mg daily, pantoprazole 40 mg daily, paroxetine 40 mg daily, spironolactone 25 mg daily, torsemide 40 mg daily. She is to contact nephrology about followup appointment within the week. Contact podiatry about followup appointment in the week. Contact [facility] regarding followup appointment within 2 weeks. To be seen by home health agency, primarily to manage the wound VAC. More than 3/4 hour was spent with the patient and on the floor reviewing records, outlining her discharge orders and preparing this discharge summary. BHARATH
[2018-06-14] MEDS ORDERED: SPIRONOLACTONE 25 MG TAB PO SCH (09:00)
[2018-06-14] MEDS ORDERED: TORSEMIDE 20 MG TAB PO SCH (09:00)
== END 2018-06-12 16:30 | disposition home health service (06) | DRG 853 ==
LOC: M ED 15:19 → M ED INP 19:35 → M MSPAV 05-18 14:07 → M PCU 05-18 21:33 → M MS5PR 06-01 12:09
PROVIDERS: ADMIT Internal Medicine; ATTEND Family Medicine
PROC: 0LBW0ZZ Excision of Left Foot Tendon, Open Approach (ICD-10-PCS; 2018-05-21)
PROC: 0JBR0ZZ Excision of Left Foot Subcutaneous Tissue and Fascia, Open Approach (ICD-10-PCS; principal; 2018-05-21 17:00)
PROC: 30233N1 Transfusion of Nonautologous Red Blood Cells into Peripheral Vein, Percutaneous Approach (ICD-10-PCS; 2018-05-25)
PROC: 02HV33Z Insertion of Infusion Device into Superior Vena Cava, Percutaneous Approach (ICD-10-PCS; 2018-05-25)
PROC: 0JH63XZ Insertion of Tunneled Vascular Access Device into Chest Subcutaneous Tissue and Fascia, Percutaneous Approach (ICD-10-PCS; 2018-05-25)
PROC: 5A1D70Z Performance of Urinary Filtration, Intermittent, Less than 6 Hours Per Day (ICD-10-PCS; 2018-05-25)
PROC: 0JBR0ZZ Excision of Left Foot Subcutaneous Tissue and Fascia, Open Approach (ICD-10-PCS; 2018-05-31)
PROC: 0KBW0ZZ Excision of Left Foot Muscle, Open Approach (ICD-10-PCS; 2018-05-31)
DX: A41.01 Sepsis due to Methicillin susceptible Staphylococcus aureus (principal); I50.33 Acute on chronic diastolic (congestive) heart failure; N39.0 Urinary tract infection, site not specified; N18.4 Chronic kidney disease, stage 4 (severe); E87.1 Hypo-osmolality and hyponatremia; I13.0 Hypertensive heart and chronic kidney disease with heart failure and stage 1 through stage 4 chronic kidney disease, or unspecified chronic kidney disease; N25.81 Secondary hyperparathyroidism of renal origin; N17.9 Acute kidney failure, unspecified; L03.116 Cellulitis of left lower limb; E11.621 Type 2 diabetes mellitus with foot ulcer; D63.1 Anemia in chronic kidney disease; E78.5 Hyperlipidemia, unspecified; Z79.4 Long term (current) use of insulin; E11.40 Type 2 diabetes mellitus with diabetic neuropathy, unspecified; Z79.899 Other long term (current) drug therapy; Z88.8 Allergy status to other drugs, medicaments and biological substances; E66.01 Morbid (severe) obesity due to excess calories; Z88.5 Allergy status to narcotic agent; E11.21 Type 2 diabetes mellitus with diabetic nephropathy; M65.172 Other infective (teno)synovitis, left ankle and foot; E11.51 Type 2 diabetes mellitus with diabetic peripheral angiopathy without gangrene

== ENCOUNTER 2018-06-16 14:53 | Inpatient (IN) | payer MEDICARE ==
[~2018-06-16] VITALS: Ht 177.8 cm; Wt 129.8 kg
[~2018-06-16 14:53] MED LIST changes: -APAP325T4 PO; -GLUC1KIT IM
[2018-06-16] MEDS ORDERED: LANTINJ4 SC (15:29)
[2018-06-16] MEDS ORDERED: GLUC1KIT IM (15:29)
[2018-06-16] MEDS ORDERED: ceFAZolin SOD 1 GM in D5W MINI-BAG PLUS 50 ML IV ONE (15:30)
--- NOTE | 2018-06-16 16:12 | REP ---
Chest one-view HISTORY: Fracture Comparison: 06/08/2018 The lungs are clear. The cardiac silhouette is enlarged. The pulmonary vasculature is normal in appearance. Impression: Cardiomegaly. Electronically Signed by Gurwinder Figueredo MD 06/16/2018 04:03 P
--- NOTE | 2018-06-16 16:14 | REP ---
Left lower extremity Duplex Doppler venous ultrasound: Real time compression and duplex Doppler interrogation of the left lower extremity deep venous system is performed. The left common femoral, superficial femoral and popliteal veins are fully compressible with transducer pressure and demonstrate normal spontaneous and phasic flow, without evidence of deep venous thrombosis. Impression: No evidence of deep venous thrombosis of the left lower extremity femoral popliteal venous system. Note is made of left inguinal lymphadenopathy ,and there are multiple lymph nodes identified. The largest measures 5.0 x 1.6 X 4.1 cm. Electronically Signed by Kenny Huber MD 06/16/2018 04:06 P
[2018-06-16 16:19] LABS: HEMATOCRIT 28.2 % (36.0-47.0); HEMOGLOBIN 9.1 g/dl (12.0-15.5); MEAN CORPUSCULAR HEMOGLOBIN 29.7 pg (27.0-33.0); MEAN CORPUSCULAR HGB CONC 32.3 g/dl (32.0-36.5); MEAN CORPUSCULAR VOLUME 92.2 fl (80.0-96.0); PLATELET COUNT, AUTOMATED 221 10^3/uL (150-450); RED BLOOD COUNT 3.06 10^6/uL (4.00-5.40); WHITE BLOOD COUNT 8.9 10^3/uL (4.0-10.0)
[2018-06-16] MEDS: NS 1,000 ML IV SCH (16:33)
[2018-06-16 16:38] LABS: CALCIUM LEVEL 8.5 MG/DL (8.8-10.2); CREATININE FOR GFR 3.43 MG/DL (0.55-1.30); GLOMERULAR FILTRATION RATE 14.3 (>45)
--- NOTE | 2018-06-16 16:58 | REP ---
LEFT CALCANEUS: Two views of the left calcaneus are performed. There is a comminuted fracture of the calcaneus with displacement of anterior fracture fragments superiorly and disruption of the calcaneal cuboid joint. Calcaneal spurring is noted. IMPRESSION:Comminuted displaced anterior calcaneal fracture with superior displacement of distal fracture fragment. The fracture extends into the talocalcaneal joint. Electronically Signed by Kenny Huber MD 06/17/2018 11:04 A
--- NOTE | 2018-06-16 16:59 | REP ---
LEFT ANKLE SERIES: Four views of the left ankle are performed. There is a comminuted displaced fracture of the distal aspect of the calcaneus extending into the talocalcaneal joint. The distal fragment of the calcaneus is displaced superiorly. Arthritic changes are seen of the intertarsal joints. There is calcaneal spurring There is diffuse soft tissue swelling. The ankle mortise is anatomic. IMPRESSION: Comminuted displaced fracture anterior calcaneus. Electronically Signed by Kenny Huber MD 06/17/2018 11:04 A
[2018-06-16] MEDS ORDERED: INSUHUMDS SC (18:10)
[2018-06-16] MEDS ORDERED: APAP325T4 PO (18:14)
[2018-06-16] MEDS ORDERED: PANT40TA3 PO (18:14)
[2018-06-16] MEDS ORDERED: TORS20TA2 PO (18:14)
[2018-06-16] MEDS ORDERED: DEXTROSE 50% 50 ML SYRINGE IV PRN (19:30)
[2018-06-16] MEDS ORDERED: MAALOX 30 ML SUSP *UDC PO PRN (19:30)
[2018-06-16] MEDS ORDERED: GLUCAGON FOR INJ 1 MG VIAL (J1610) SC PRN (19:30)
[2018-06-16] MEDS ORDERED: ACETAMINOPHEN TAB 650MG DOSE (2X325MG) PO PRN (19:30)
[2018-06-16] MEDS ORDERED: GLUCOSE 4 GM CHEW TABLET PO PRN (19:30)
--- NOTE | 2018-06-16 20:10 | HPEPDOC ---
[facility] Medical History & Physical Date of Admission Jun 16, 2018 History and Physical CHIEF COMPLAINT: [Left foot wound and calcaneal fracture] HISTORY OF PRESENT ILLNESS: [67-year-old lady with a past medical history of diabetes, on insulin, hypertension, stage IV chronic kidney disease, follows with Dr. Dong, diabetic neuropathy, hyperlipidemia, who presents with a chief complaint of left lateral foot wound and treated in the hospital via antibiotic and surgery earlier this month and recently discharged. Patient was seen by podiatry today and was sent to the emergency room for further evaluation and treatment. Patient was admitted to our facility for septic foot. She was placed on antibiotics. The broiler chef or cook was consulted. It appears that he did some bedside debridement and some operative treatment. She had additional debridements in the hospital and was started on a wound VAC. She was seen by nephrology; she was having issues - because of development of uremic symptoms, she was dialyzed and seemed to do reasonably well with that. She was initially viewed by the metal machinist as being permanently dialysis dependent; however, at the time of her discharge from the hospital, she was no longer getting dialysis and her d ialysis catheter was removed by the metal machinist prior to her discharge. On 06/12/2018, when seen by the metal machinist, they indicated that from their point of view, she was able to leave the facility with follow up in their office within the week. Patient was sent by podiatry for further evaluation and treatment. Patient had x-ray which showed calcaneal fracture. Ultrasound of the lower survey did not show any DVT. Her renal function slightly worsened. Spoke to Dr. Calixto in the broiler chef or cook recommended MRI of the foot for further evaluation. Continue the antibiotic renally dosed. Nephrology was also flow consulted. ] PAST MEDICAL HISTORY: As mentioned above PAST SURGICAL HISTORY: She has had right 2nd, 4th and 5th toe amputations, left 3rd, 4th, 5th toe amputations plus left ankle sx, a hysterectomy, cholecystectomy, partial appendectomy. SOCIAL HISTORY: Patient does not smoke, drink, use drugs FAMILY HISTORY: Not treated at this time ALLERGIES: Please see below. REVIEW OF SYSTEMS: 10 point review systems negative than those described in HPI HOME MEDICATIONS: Please see below. PHYSICAL EXAMINATION: VITAL SIGNS: Please see below GENERAL APPEARANCE: Resting comfortably HEENT: Normocephalic, PERRLA, Mucous moist, CARDIOVASCULAR: S1,S2, pulse present, regularly, regular LUNGS: Equal air entry b/l, no wheezes or crackle ABDOMEN: Soft, BS present, no tenderness, no guarding GENITOURINARY: No Suarez EXTREMITIES: B/L no edema, capillary refill present, left ankle wound bandaged, left and right toe amputation noted SKIN: Warm, No fever NEUROLOGICAL: Cranial nerves grossly intact PSYCHIATRIC: Normal mood and affect for current situation LABORATORY DATA: See below. IMAGING: [CXR: Impression: Cardiomegaly. Us left leg: No DVT. Note is made of left inguinal lymphadenopathy ,and there are multiple lymph nodes identified. The largest measures 5.0 x 1.6 X 4.1 cm. ankle xray: Comminuted displaced fracture anterior calcaneus. Heel xray: Comminuted displaced anterior calcaneal fracture with superior displacement of distal fracture fragment. The fracture extends into the tail of the calcaneal joint. ] MICROBIOLOGY: Please see below. Assessment and plan: 67-year-old lady with a past medical history of diabetes, on insulin, hypertension, stage IV chronic kidney disease, follows with Dr. Dong, diabetic neuropathy, hyperlipidemia, who presents with a chief complaint of left lateral foot wound and treated in the hospital via antibiotic and surgery earlier this month and recently discharged. Patient was seen by podiatry today and was sent to the emergency room for further evaluation and treatment. Worsening Left foot wound, r/o osteomyelitis & left foot calcaneal fracture -resume zosyn -Dr. Calixto consult -wound care -MRI of left foot pending -blood cx pending -wound cx pening -non weight bearing Us left leg: No DVT. Note is made of left inguinal lymphadenopathy ,and there are multiple lymph nodes identified. The largest measures 5.0 x 1.6 X 4.1 cm. ankle xray: Comminuted displaced fracture anterior calcaneus. Heel xray: Comminuted displaced anterior calcaneal fracture with superior displacement of distal fracture fragment. The fracture extends into the tail of the calcaneal joint. ARF, CKD 4 -renal consult with Dr. Pantoja -hold renal toxic medication spironolactone and torsemide tonight until evaluated by renal HTN, hold renal toxic medication if possible -Resume carvedilol, isosorbide -Hold spironolactone and torsemide Diabetes. -resume home insulin, hold asa for possible sx -fs monitoring and coverag mild Hyponatremia. -stable -monitor -treat above Hyperlipidemia. Continue home statin. Deep vein thrombosis (DVT) prophylaxis. Patient is on subcu heparin. Vital Signs Vital Signs Date Time Temp Pulse Resp B/P (MAP) Pulse Ox O2 Delivery O2 Flow Rate FiO2 06/16/18 16:00 06/16/18 14:53 97.6 74 18 96 Room Air Laboratory Data Labs 24H Laboratory Tests 2 06/16/18 16:02: Nucleated Red Blood Cells % (auto) 0.0, Anion Gap 6L, Glomerular Filtration Rate 14.3L, Blood Urea Nitrogen 88H, Creatinine 3.43H, Sodium Level 128L, Potassium Level 5.0, Chloride Level 91L, Carbon Dioxide Level 31, Calcium Level 8.5L CBC/BMP Laboratory Tests 06/16/18 16:02 Red Blood Count 3.06 L, Mean Corpuscular Volume 92.2, Mean Corpuscular Hemoglobin 29.7, Mean Corpuscular Hemoglobin Concent 32.3, Red Cell Distribution Width 15.0 H, Calcium Level 8.5 L Microbiology Microbiology 06/16/18 Blood Culture, Received Pending 06/16/18 Gram Stain, Received Pending 06/16/18 Wound Culture, Received Pending Home Medications Scheduled Aspirin (Aspirin EC) 81 Mg Tab, 81 MG PO QHS Atorvastatin Calcium (Atorvastatin Calcium) 40 Mg Tab, 40 MG PO QHS Calcitriol (Calcitriol) 0.25 Mcg Cap, 0.25 MCG PO DAILY Carvedilol (Coreg) 12.5 Mg Tab, 12.5 MG PO BID Cyclobenzaprine HCl (Cyclobenzaprine HCl) 10 Mg Tab, 10 MG PO QHS Ferrous Sulfate (Ferrous Sulfate) 325 Mg Tab, 325 MG PO BID Folic Acid/Vit B Complex and C (Sofia-Nicolas Tablet) 1 Tab Tab, 1 TAB PO DAILY Gabapentin (Gabapentin) 300 Mg Cap, 600 MG PO QHS Gabapentin (Gabapentin) 300 Mg Cap, 300 MG PO QAM Insulin Glargine,Hum.rec.anlog (Lantus Solostar) 100 Unit/1 Ml Insuln.pen, 30 UNIT SC BID Insulin Human Lispro (Humalog) 100 Unit/1 Ml Vial, 1 DOSE SC AC PER SLIDING SCALE Isosorbide Mononitrate (Isosorbide Mononitrate ER) 30 Mg Tab, 30 MG PO DAILY Magnesium Oxide (Magnesium Oxide) 400 Mg Tab, 400 MG PO DAILY Pantoprazole Sodium (Pantoprazole Sodium) 40 Mg Tablet.dr, 40 MG PO DAILY Paroxetine HCl (Paroxetine) 40 Mg Tab, 40 MG PO DAILY Spironolactone (Spironolactone) 25 Mg Tab, 25 MG PO DAILY Torsemide (Torsemide) 20 Mg Tablet, 40 MG PO BID TAKES QAM AND DINNERTIME Scheduled PRN Acetaminophen (Acetaminophen) 325 Mg Tablet, 650 MG PO Q6H PRN for PAIN Glucagon,Human Recombinant (Glucagon Emergency Kit) 1 Mg Vial, 1 MG IM ASDIRECTED PRN for LOW BLOOD SUGAR Allergies Coded Allergies: TAPE (Verified Allergy, Intermediate, RASH, 05/19/18) citric acid (Verified Allergy, Intermediate, HIVES/ITCHING, 05/19/18) sodium bicarbonate (Verified Allergy, Intermediate, HIVES/ITCHING, 05/19/18) hydrocodone (Verified Allergy, Mild, ITCHES, 05/19/18) SALLY WRIGHT MD Jun 16, 2018 20:10
--- NOTE | 2018-06-16 21:26 | REPVR ---
EXAM: MR Left Lower Extremity Without Contrast, Foot EXAM DATE/TIME: 06/16/2018 8:14 PM CLINICAL HISTORY: 67 years old, female; Signs and symptoms; Edema and swelling, leg or foot; Location not specified; Prior surgery; Surgery date: 6+ months; Surgery type: Removed several toes; Patient HX: HX chronic cellulitis and diabetic ulcers, PT currently has open oozing ulcer along entire plantar surface. Pts gfr is way too low for contrast injection; Additional info: Calcaneous FX infx TECHNIQUE: Imaging protocol: MR of the Left foot without intravenous contrast. COMPARISON: MRI FOOT WITHOUT CONTRAST LEFT 05/18/2018 7:16 PM FINDINGS: This is Bones/joints: There is extensive motion artifact. Status post amputation of the third to fifth toes. There is bone marrow edema within the base of the fifth metatarsal and seen on T2 fat suppressed and T1 weighted images. There is a smaller area of bone marrow edema in the distal cuboid. There was no edema within the bone marrow at this site on the prior scan.There are small subchondral cysts and marginal osteophytes at multiple tarsal-metatarsal joints. There is a fracture of the calcaneus. This is a transverse fracture through the anterior third of the calcaneus. Soft tissues: There is soft tissue edema. No soft tissue fluid collection is identified to indicate an abscess. Edema is most severe along the plantar and lateral aspect of the foot. There is persistent edema within the interosseous muscles which may be secondary to myositis. This can also be seen secondary to neuropathy. IMPRESSION: 1. Lateral soft tissue edema. There is adjacent edema within the bone marrow of the base of the fifth metatarsal on T2 fat-suppressed and T1-weighted images consistent with acute osteomyelitis. A smaller focus of edema is present within the distal and lateral cuboid also suspicious for acute osteomyelitis. 2. There is a transverse fracture across the calcaneus. Electronically signed by: Prem Valverde On 06/16/2018 21:26:12 PM
[2018-06-16 21:53] VITALS: BP 133/59
[2018-06-16] MEDS: ATORVASTATIN 20 MG TAB PO SCH (23:16)
[2018-06-16] MEDS: CARVedilol 12.5 MG TAB PO SCH (23:17)
[2018-06-16] MEDS: GABAPENTIN 300 MG CAP PO SCH (23:17)
[2018-06-16] MEDS: HumaLOG INSULIN (NovoLOG) PER UNIT SC SCH (23:18)
[2018-06-16] MEDS: CYCLOBENZAPRINE 10 MG TAB PO SCH (23:18)
[2018-06-16] MEDS: FERROUS SULFATE 325MG TAB PO SCH (23:18)
[2018-06-16] MEDS: LEVEMIR (INSULIN DETEMIR) 1 UNITS/0.01ML SC SCH (23:19)
[2018-06-17] MEDS: NS 1,000 ML IV SCH ×2 (00:08→03:49)
[2018-06-17] MEDS: PIPERACILLIN/TAZOBACTAM SOD 2.25 GM in D5W MINI-BAG PLUS 50 ML IV SCH ×3 (01:07→20:39)
[2018-06-17 04:00] VITALS: BP 129/60
[2018-06-17] MEDS: HEPARIN SOD (PORCINE) 5000 UNITS/ML VIAL SC SCH ×3 (05:19→20:39)
[2018-06-17 06:58] LABS: HEMOGLOBIN 8.3 g/dl (12.0-15.5); MEAN CORPUSCULAR HEMOGLOBIN 29.2 pg (27.0-33.0); MEAN CORPUSCULAR HGB CONC 31.9 g/dl (32.0-36.5); MEAN CORPUSCULAR VOLUME 91.5 fl (80.0-96.0); PLATELET COUNT, AUTOMATED 216 10^3/uL (150-450); RED BLOOD COUNT 2.84 10^6/uL (4.00-5.40); WHITE BLOOD COUNT 6.6 10^3/uL (4.0-10.0)
[2018-06-17 07:24] LABS: C REACTIVE PROTEIN QUANTITATIV 16.8 MG/DL (0.00-0.30); CALCIUM LEVEL 8.2 MG/DL (8.8-10.2); CREATININE FOR GFR 3.3 MG/DL (0.55-1.30); GLOMERULAR FILTRATION RATE 14.9 (>45); POTASSIUM SERUM 3.9 MEQ/L (3.5-5.1)
[2018-06-17] MEDS: PANTOPRAZOLE 40MG TAB (PROTONIX) PO SCH (08:46)
[2018-06-17] MEDS: MOM 30ML SUSPENSION UDC PO PRN (08:46)
[2018-06-17] MEDS: MAGNESIUM OXIDE 400 MG TAB (MAG-OX) PO SCH (08:46)
[2018-06-17] MEDS: GABAPENTIN 300 MG CAP PO SCH ×2 (08:46→20:42)
[2018-06-17] MEDS: FERROUS SULFATE 325MG TAB PO SCH ×2 (08:47→20:42)
[2018-06-17] MEDS: CARVedilol 12.5 MG TAB PO SCH ×2 (08:47→20:42)
[2018-06-17] MEDS: ISOSORBIDE MON. (IMDUR) 30 MG XR TAB PO SCH (08:47)
[2018-06-17] MEDS: HumaLOG INSULIN (NovoLOG) PER UNIT SC SCH ×4 (08:48→20:26)
[2018-06-17] MEDS: LEVEMIR (INSULIN DETEMIR) 1 UNITS/0.01ML SC SCH ×2 (08:48→20:40)
[2018-06-17 09:58] LABS: MAGNESIUM LEVEL 1.8 MG/DL (1.8-2.4)
[2018-06-17 11:11] LABS: ERYTHROCYTE SEDIMENTATION RATE 126 mm/hr (0-30)
[2018-06-17] MEDS: SILVER SULFADIAZINE 1% CR 50 GM JAR TOP SCH ×2 (11:17→20:43)
[2018-06-17 12:00] VITALS: BP 120/58
[2018-06-17] MEDS: traMADol 50 MG TAB PO PRN ×2 (12:49→20:41)
--- NOTE | 2018-06-17 13:07 | IPNPDOC ---
Subjective Date Seen The patient was seen on 06/17/18. Subjective Chief Complaint/HPI osteomyelitis Events since last encounter Admitted after sent to ED from podiatry office for infected looking foot. MRI completed: + osteomyelitis to left foot with calcaneal fx. Orthotic consult placed for boot to assist with ambulation. ID consult pending. Nephro has evaluated patient and advised to stop IVF, and will follow renal function. Patient was dialyzed last hospitalization. Constitutional: Denies: Chills, Fever, Night Sweats Pulmonary: Denies: Dyspnea, Cough Cardiovascular: Denies: Chest Pain, Palpitations, Orthopnea, Paroxysmal Noc. Dyspnea, Lt Headedness Musculoskeletal: Reports: Other Symptoms (LEFT foot pain) Psych: Reports: Anxiety, Depression Objective Physical Examination General Exam: Positive: Alert, No Acute Distress Neck Exam: Positive: Supple; Negative: JVD, thyromegaly Chest Exam: Positive: Clear to auscultation, Normal air movement Heart Exam: Positive: Rate Normal, Regular Rhythm, Normal S1, Normal S2; Negative: Murmurs, Rubs Abdomen Exam: Positive: Normal bowel sounds, Soft; Negative: Tenderness, Hepatospenomegaly Extremity Exam: Positive: Other (dressing to LLE intact) Psych Exam: Positive: Mental status NL, Mood NL, Oriented x 3 A-FIB/CHADSVASC A-FIB History Current/History of A-Fib/PAF?: No Assessment /Plan Problems (1) Osteomyelitis of foot, acute Status: Acute Problem Text: ID consult. Wound cx pending. On Zosyn for broad spectrum coverage. Received 1 dose of Cephalosporin. hx of MSSA septicemia. Podiatry involved and actively managing foot/wounds. (2) Left calcaneal fracture Status: Acute Problem Specific Plan: Consult Specialist (3) DM2 (diabetes mellitus, type 2) Status: Chronic Problem Text: RISS. Continue Levemir 30 units sq bid (4) CKD (chronic kidney disease), stage IV Status: Chronic Problem Specific Plan: Consult Specialist Problem Text: Nephro managing. (5) Hyperlipidemia Status: Chronic (6) CAD (coronary artery disease) Status: Chronic (7) Physical deconditioning Status: Chronic Problem Text: PT consulted (8) Diastolic CHF Status: Chronic Problem Text: Diuretic on hold due to renal function. IVF Dc'd. Plan/VTE VTE Prophylaxis Ordered?: Yes (Heparin ) Plan Family Medicine Attending Note: I saw and examined Mrs. Narayan, discussed with AICHA Omer. Agree with her note as documented. Jeanne is quite concerned about her foot; specifically that she might require an amputation. I'm concerned about the same thing. Hopefully we will be able to treat her osteomyelitis effectively with antibiotics, but we do know that her circulation is already poor in that foot. Appreciate the assistance of the multiple specialists involved in her care with us. (shank skinner) VS, I&O, 24H, Fishbone Vital Signs/I&O Vital Signs Date Time Temp Pulse Resp B/P (MAP) Pulse Ox O2 Delivery O2 Flow Rate FiO2 06/17/18 12:49 20 06/17/18 12:00 97.1 70 120/58 (78) 96 06/16/18 21:50 Room Air I&O- Last 24 Hours up to 6 AM 06/17/18 06:00 Intake Total 1550 ml Output Total 250 ml Balance 1300 ml Laboratory Data 24H LABS Laboratory Tests 2 06/16/18 16:02: Nucleated Red Blood Cells % (auto) 0.0, Anion Gap 6L, Glomerular Filtration Rate 14.3L, Blood Urea Nitrogen 88H, Creatinine 3.43H, Sodium Level 128L, Potassium Level 5.0, Chloride Level 91L, Carbon Dioxide Level 31, Calcium Level 8.5L 06/16/18 22:08: Bedside Glucose (Misc Panel) 306H 06/17/18 06:41: Nucleated Red Blood Cells % (auto) 0.0, Anion Gap 7L, Glomerular Filtration Rate 14.9L, Blood Urea Nitrogen 87H, Creatinine 3.30H, Sodium Level 132L, Potassium Level 3.9#, Chloride Level 95L, Carbon Dioxide Level 30, Calcium Level 8.2L, Erythrocyte Sedimentation Rate 126H, Magnesium Level 1.8, Iron Level 30L, Total Iron Binding Capacity 176L, Transferrin % Saturation 17.0, C-Reactive Protein, Quantitative 16.80H 06/17/18 06:42: Lactic Acid Level 0.7 06/17/18 11:47: Bedside Glucose (Misc Panel) 265H CBC/BMP Laboratory Tests 06/16/18 16:02 Red Blood Count 3.06 L, Mean Corpuscular Volume 92.2, Mean Corpuscular Hemoglobin 29.7, Mean Corpuscular Hemoglobin Concent 32.3, Red Cell Distribution Width 15.0 H, Calcium Level 8.5 L 06/17/18 06:41 Red Blood Count 2.84 L, Mean Corpuscular Volume 91.5, Mean Corpuscular Hemoglobin 29.2, Mean Corpuscular Hemoglobin Concent 31.9 L, Red Cell Di stribution Width 15.0 H, Calcium Level 8.2 L Microbiology Microbiology 06/16/18 Blood Culture, Received Pending 06/16/18 Gram Stain - Final, Resulted 06/16/18 Wound Culture, Resulted Pending July Cali Jun 17, 2018 13:07 Jeremy Cornell MD Jun 17, 2018 20:13
[2018-06-17] MEDS: PARoxetine 20 MG TAB PO SCH (14:31)
[2018-06-17 20:00] VITALS: BP 139/67
[2018-06-17] MEDS: ATORVASTATIN 20 MG TAB PO SCH (20:41)
[2018-06-17] MEDS: CYCLOBENZAPRINE 10 MG TAB PO SCH (20:42)
[2018-06-18] VITALS (10 sets, daily range): BP systolic 123–174; BP diastolic 60–76
[2018-06-18] MEDS ORDERED: IRON SUCROSE 100MG 5ML VIAL (J1756 PER 1MG) IV ONE (00:30)
[2018-06-18] MEDS ORDERED: IRON SUCROSE 25 MG in NS 50 ML IV ONE ×2 (00:45→03:00)
[2018-06-18] MEDS ORDERED: IRON SUCROSE 275 MG in NS 250 ML IV ONE ×3 (02:00→04:15)
[2018-06-18] MEDS: HEPARIN SOD (PORCINE) 5000 UNITS/ML VIAL SC SCH ×3 (06:33→21:32)
[2018-06-18 07:17] LABS: HEMOGLOBIN 8.8 g/dl (12.0-15.5); MEAN CORPUSCULAR HEMOGLOBIN 29.4 pg (27.0-33.0); MEAN CORPUSCULAR HGB CONC 30.3 g/dl (32.0-36.5); PLATELET COUNT, AUTOMATED 218 10^3/uL (150-450); RED BLOOD COUNT 2.99 10^6/uL (4.00-5.40); WHITE BLOOD COUNT 6.6 10^3/uL (4.0-10.0)
[2018-06-18] MEDS: HumaLOG INSULIN (NovoLOG) PER UNIT SC SCH ×4 (07:30→21:00)
[2018-06-18 07:48] LABS: CALCIUM LEVEL 8.3 MG/DL (8.8-10.2); CREATININE FOR GFR 2.87 MG/DL (0.55-1.30); GLOMERULAR FILTRATION RATE 17.5 (>45)
[2018-06-18] MEDS: SILVER SULFADIAZINE 1% CR 50 GM JAR TOP SCH ×2 (08:55→21:34)
[2018-06-18] MEDS ORDERED: DARBEPOETIN 100 MCG/0.5 ML *NON-DIALYSIS* SYRINGE (J0881) SC SCH (09:00)
[2018-06-18] MEDS: GABAPENTIN 300 MG CAP PO SCH ×2 (09:41→21:29)
[2018-06-18] MEDS: PIPERACILLIN/TAZOBACTAM SOD 2.25 GM in D5W MINI-BAG PLUS 50 ML IV SCH (09:41)
[2018-06-18] MEDS: PANTOPRAZOLE 40MG TAB (PROTONIX) PO SCH (09:41)
[2018-06-18] MEDS: PARoxetine 20 MG TAB PO SCH (09:42)
[2018-06-18] MEDS: FERROUS SULFATE 325MG TAB PO SCH ×2 (09:42→21:44)
[2018-06-18] MEDS: MAGNESIUM OXIDE 400 MG TAB (MAG-OX) PO SCH (09:43)
[2018-06-18] MEDS: LEVEMIR (INSULIN DETEMIR) 1 UNITS/0.01ML SC SCH ×2 (09:43→21:31)
[2018-06-18] MEDS: ISOSORBIDE MON. (IMDUR) 30 MG XR TAB PO SCH (09:49)
[2018-06-18] MEDS: CARVedilol 12.5 MG TAB PO SCH ×2 (09:50→21:30)
--- NOTE | 2018-06-18 10:19 | IPNPDOC ---
Subjective Date Seen The patient was seen on 06/18/18. Subjective Chief Complaint/HPI Norma is feeling about the same. Her foot is still draining quite a bit. Mr. West, the machine operator helper, came in to evaluate her this Am, but determined that she can't have a walking boot because it would cause too much restriction on her calf and end causing more edema in her foot. General: Reports: Fatigue Pulmonary: Denies: Dyspnea, Cough Cardiovascular: Denies: Chest Pain, Palpitations Musculoskeletal: Reports: Foot Pain Psych: Reports: Mood Normal Objective Physical Examination General Exam: Positive: Alert, Cooperative (laying in bed when I entered the room), No Acute Distress Eye Exam: Positive: Conjunctiva & lids normal; Negative: Sclera icteric ENT Exam: Positive: Mucous membr. moist/pink Neck Exam: Positive: Supple; Negative: Lymphadenopathy Chest Exam: Positive: Clear to auscultation, Normal air movement Heart Exam: Positive: Rate Normal, Regular Rhythm, Normal S1, Normal S2; Negative: Murmurs, Rubs Abdomen Exam: Positive: Normal bowel sounds, Soft; Negative: Tenderness, Hepatospenomegaly Extremity Exam: Positive: Other (She has a large open wound on her L lateral foot that extends most of the length of the foot. There are islands of pink granulation noted below some reasonably healthy looking coagulum. It is actively weeping serum onto the towel under her foot. There is another smaller, deep lesion on the L medial foot by the calcaneus. It isn't weeping or bleeding, but seems to probe down close to the bone.) Psych Exam: Positive: Mental status NL, Mood NL, Oriented x 3 A-FIB/CHADSVASC A-FIB History Current/History of A-Fib/PAF?: No Assessment /Plan Problems (1) Osteomyelitis of foot, acute Status: Acute Problem Text: Her wound is growing MSSA again. The ID service recommends deescalating her antibiotic to IV cefazolin; this is being done. She will need a line placed for longer term antibiotics. I am also consulting with Dr. Sincere bergeron regarding the possibility of using the HBO chambers to improve healing of her wound. This would all be in an attempt to save her from an amputation. (2) Left calcaneal fracture Status: Acute Problem Specific Plan: Consult Specialist Problem Text: She will need to be non-weight bearing on the L foot. P/T is being asked to evaluate her for a knee scooter vs. wheelchair. (3) DM2 (diabetes mellitus, type 2) Status: Chronic Problem Text: Her glucose was actually reported as a bit on the low side this Am, at 56. She responded well to the juice. Continue RISS. Continue Levemir 30 units sq bid (4) CKD (chronic kidney disease), stage IV Status: Chronic Problem Specific Plan: Consult Specialist Problem Text: Nephro assisting in management; appreciate their help. (5) Hyperlipidemia Status: Chronic Problem Text: Continue home medications. (6) CAD (coronary artery disease) Status: Chronic (7) Physical deconditioning Status: Chronic Problem Text: PT consulted (8) Diastolic CHF Status: Chronic Problem Text: Diuretic on hold due to renal function. IVF Dc'd. Plan/VTE VTE Prophylaxis Ordered?: Yes (Heparin ) VS, I&O, 24H, Fishbone Vital Signs/I&O Vital Signs Date Time Temp Pulse Resp B/P (MAP) Pulse Ox O2 Delivery O2 Flow Rate FiO2 06/18/18 09:50 84 114/61 06/18/18 08:00 98.0 16 94 06/16/18 21:50 Room Air I&O- Last 24 Hours up to 6 AM 06/18/18 06:00 Intake Total 1006.9 ml Output Total 875 ml Balance 131.9 ml Laboratory Data 24H LABS Laboratory Tests 2 06/17/18 11:47: Bedside Glucose (Misc Panel) 265H 06/17/18 17:29: Bedside Glucose (Misc Panel) 242H 06/17/18 20:21: Bedside Glucose (Misc Panel) 192H 06/18/18 07:06: Nucleated Red Blood Cells % (auto) 0.0, Anion Gap 7L, Glomerular Filtration Rate 17.5L, Blood Urea Nitrogen 82H, Creatinine 2.87H, Sodium Level 134L, Potassium Level 4.0, Chloride Level 101, Carbon Dioxide Level 26, Calcium Level 8.3L, C- Reactive Protein, Quantitative 13.00H 06/18/18 08:32: Bedside Glucose (Misc Panel) 95 CBC/BMP Laboratory Tests 06/18/18 07:06 Red Blood Count 2.99 L, Mean Corpuscular Volume 97.0 H, Mean Corpuscular Hemoglobin 29.4, Mean Corpuscular Hemoglobin Concent 30.3 L, Red Cell Distribution Width 15.0 H, Calcium Level 8.3 L Microbiology Microbiology 06/16/18 Blood Culture - Preliminary, Resulted No growth after 24 hours . All specim... 06/16/18 Gram Stain - Final, Complete 06/16/18 Wound Culture - Final, Complete Staphylococcus Aureus Jeremy Cornell MD Jun 18, 2018 10:19 am
[2018-06-18] MEDS: CYCLOBENZAPRINE 10 MG TAB PO SCH (21:30)
[2018-06-18] MEDS: ATORVASTATIN 20 MG TAB PO SCH (21:30)
[2018-06-18] MEDS: ceFAZolin SOD 1 GM in D5W MINI-BAG PLUS 50 ML IV SCH (21:32)
[2018-06-18] MEDS: traMADol 50 MG TAB PO PRN (22:14)
[2018-06-19] MEDS: HEPARIN SOD (PORCINE) 5000 UNITS/ML VIAL SC SCH ×3 (05:33→20:41)
[2018-06-19 06:00] VITALS: BP 142/62
[2018-06-19] MEDS: HumaLOG INSULIN (NovoLOG) PER UNIT SC SCH ×4 (07:30→20:42)
[2018-06-19 07:32] LABS: HEMATOCRIT 26.2 % (36.0-47.0); HEMOGLOBIN 8.2 g/dl (12.0-15.5); MEAN CORPUSCULAR HEMOGLOBIN 29.4 pg (27.0-33.0); MEAN CORPUSCULAR HGB CONC 31.3 g/dl (32.0-36.5); MEAN CORPUSCULAR VOLUME 93.9 fl (80.0-96.0); PLATELET COUNT, AUTOMATED 227 10^3/uL (150-450); RED BLOOD COUNT 2.79 10^6/uL (4.00-5.40); WHITE BLOOD COUNT 6.3 10^3/uL (4.0-10.0)
[2018-06-19 07:51] LABS: C REACTIVE PROTEIN QUANTITATIV 9.01 MG/DL (0.00-0.30); CALCIUM LEVEL 8.5 MG/DL (8.8-10.2); CREATININE FOR GFR 2.53 MG/DL (0.55-1.30); GLOMERULAR FILTRATION RATE 20.3 (>45); POTASSIUM SERUM 4.2 MEQ/L (3.5-5.1)
--- NOTE | 2018-06-19 08:09 | IPN ---
DATE: 06/18/2018 CHIEF COMPLAINT: Patient was seen at bedside evaluation of her left foot. The patient was seen by Olivia West who states she is not a candidate for a patellar weightbearing brace due to the edema of her lower extremity and large diabetic ulcer. We discussed with the patient appropriate off-loading of her calcaneal fracture, which is mildly displaced through the anterior aspect of the posterior facet. We discussed utilizing a knee scooter or a wheelchair. Will have physical therapy (PT) evaluate the patient to see if she is a candidate for a knee scooter. We discussed that this may give her some increased mobility, however, she is not sure of her balance is good enough to be able to use this device. Otherwise, we told her she will have to be non-weightbearing for at least 6 weeks to assess her fracture. We encouraged non-weightbearing range of motion exercises to eliminate any arthritic change of the joint. Her questions were answered.
[2018-06-19] MEDS: MAGNESIUM OXIDE 400 MG TAB (MAG-OX) PO SCH (09:06)
[2018-06-19] MEDS: SPIRONOLACTONE 25 MG TAB PO SCH (09:07)
[2018-06-19] MEDS: CARVedilol 12.5 MG TAB PO SCH ×2 (09:07→20:40)
[2018-06-19] MEDS: GABAPENTIN 300 MG CAP PO SCH ×2 (09:07→20:39)
[2018-06-19] MEDS: TORSEMIDE 20 MG TAB PO SCH ×2 (09:07→20:39)
[2018-06-19] MEDS: PANTOPRAZOLE 40MG TAB (PROTONIX) PO SCH (09:07)
[2018-06-19] MEDS: FERROUS SULFATE 325MG TAB PO SCH ×2 (09:07→20:40)
[2018-06-19] MEDS: PARoxetine 20 MG TAB PO SCH (09:07)
[2018-06-19] MEDS: ISOSORBIDE MON. (IMDUR) 30 MG XR TAB PO SCH (09:08)
[2018-06-19] MEDS: LEVEMIR (INSULIN DETEMIR) 1 UNITS/0.01ML SC SCH ×2 (09:09→20:41)
[2018-06-19] MEDS: SILVER SULFADIAZINE 1% CR 50 GM JAR TOP SCH ×2 (09:18→20:42)
[2018-06-19] MEDS: ceFAZolin SOD 1 GM in D5W MINI-BAG PLUS 50 ML IV SCH ×2 (10:43→21:32)
[2018-06-19 13:55] VITALS: BP 140/86
--- NOTE | 2018-06-19 15:50 | IPNPDOC ---
Subjective Date Seen The patient was seen on 06/19/18. Subjective Chief Complaint/HPI Jeanne feels about the same today. She continues to have drainage from her foot. She is uncertain about whether she wants to do knee scooter or not. Part of her concern is that she is not sure she steady enough on the right foot has good enough balance that she will fall. General: Reports: Normal Appetite Pulmonary: Denies: Dyspnea, Cough Cardiovascular: Denies: Chest Pain, Palpitations Genitourinary: Denies: Dysuria Psych: Reports: Mood Normal Objective Physical Examination General Exam: Positive: Alert, Cooperative (laying in bed when I entered the room), No Acute Distress Eye Exam: Positive: Conjunctiva & lids normal; Negative: Sclera icteric ENT Exam: Positive: Mucous membr. moist/pink Neck Exam: Negative: Lymphadenopathy Chest Exam: Positive: Clear to auscultation, Normal air movement Heart Exam: Positive: Rate Normal, Regular Rhythm, Normal S1, Normal S2; Negative: Murmurs, Rubs Abdomen Exam: Positive: Normal bowel sounds, Soft; Negative: Tenderness, Hepatospenomegaly Extremity Exam: Positive: Other (her left foot was wrapped today. There is scant serous drainage noted on the bandage.) Psych Exam: Positive: Mental status NL, Mood NL, Oriented x 3 A-FIB/CHADSVASC A-FIB History Current/History of A-Fib/PAF?: No Assessment /Plan Problems (1) Osteomyelitis of foot, acute Status: Acute Problem Text: She is on cefazolin IV twice daily. Dr. Dooley will do a telemedicine consultation on Thursday for advice regarding her wounds and the possibility of hyperbaric oxygen therapy. (2) Left calcaneal fracture Status: Acute Problem Specific Plan: Consult Specialist Problem Text: She will need to be non-weight bearing on the L foot. P/T is being asked to evaluate her for a knee scooter vs. wheelchair. The patient is also not sure which she would prefer. (3) Peripheral vascular disease of extremity Status: Chronic Problem Specific Plan: Consult Specialist Problem Text: She has a known history of peripheral vascular disease. I have asked Dr. Matthews to evaluate her left lower extremity to make sure that the blood flow to that area is adequate for: delivery of antibiotic to the area of osteomyelitis, healing from a possible amputation, or optimizing hyperbaric oxygen treatment. (4) DM2 (diabetes mellitus, type 2) Status: Chronic Problem Text: Her blood glucose levels very, but are not tremendously high while she is here in the hospital. Continue RISS. Continue Levemir 30 units sq bid (5) CKD (chronic kidney disease), stage IV Status: Chronic Problem Specific Plan: Consult Specialist Problem Text: Nephro assisting in management; appreciate their help. They have asked Dr. Matthews to assess her for an AV graft. (6) Hyperlipidemia Status: Chronic Problem Text: Continue home medications. (7) CAD (coronary artery disease) Status: Chronic Response to Treatment: Stable (8) Physical deconditioning Status: Chronic Response to Treatment: Stable Problem Text: PT consulted (9) Diastolic CHF Status: Chronic Problem Text: Diuretic on hold due to renal function. IVF Dc'd. Plan/VTE VTE Prophylaxis Ordered?: Yes (Heparin ) VS, I&O, 24H, Fishbone Vital Signs/I&O Vital Signs Date Time Temp Pulse Resp B/P (MAP) Pulse Ox O2 Delivery O2 Flow Rate FiO2 06/19/18 13:55 97.4 74 18 140/86 (104) 94 06/16/18 21:50 Room Air I&O- Last 24 Hours up to 6 AM 06/19/18 06:00 Intake Total 1545 ml Output Total 550 ml Balance 995 ml Laboratory Data 24H LABS Laboratory Tests 2 06/18/18 17:03: Bedside Glucose (Misc Panel) 204H 06/18/18 19:47: Bedside Glucose (Misc Panel) 178H 06/19/18 07:18: Nucleated Red Blood Cells % (auto) 0.0, Anion Gap 4L, Glomerular Filtration Rate 20.3L, Blood Urea Nitrogen 66H, Creatinine 2.53H, Sodium Level 137, Potassium Level 4.2, Chloride Level 103, Carbon Dioxide Level 30, Calcium Level 8.5L, C- Reactive Protein, Quantitative 9.01H 06/19/18 11:58: Bedside Glucose (Misc Panel) 97 CBC/BMP Laboratory Tests 06/19/18 07:18 Red Blood Count 2.79 L, Mean Corpuscular Volume 93.9, Mean Corpuscular Hemoglobin 29.4, Mean Corpuscular Hemoglobin Concent 31.3 L, Red Cell Distribution Width 14.9 H, Calcium Level 8.5 L Microbiology Microbiology 06/16/18 Blood Culture - Preliminary, Resulted No Growth after 48 hours. All Specime... 06/16/18 Gram Stain - Final, Complete 06/16/18 Wound Culture - Final, Complete Staphylococcus Aureus Jeremy Cornell MD Jun 19, 2018 15:50
[2018-06-19 20:00] VITALS: BP 120/64
[2018-06-19] MEDS: ATORVASTATIN 20 MG TAB PO SCH (20:39)
[2018-06-19] MEDS: CYCLOBENZAPRINE 10 MG TAB PO SCH (20:40)
[2018-06-19] MEDS: MOM 30ML SUSPENSION UDC PO PRN (20:41)
[2018-06-20 05:00] VITALS: BP 140/62
[2018-06-20] MEDS: HEPARIN SOD (PORCINE) 5000 UNITS/ML VIAL SC SCH ×3 (05:22→21:14)
[2018-06-20 07:13] LABS: HEMATOCRIT 28.4 % (36.0-47.0); HEMOGLOBIN 8.8 g/dl (12.0-15.5); MEAN CORPUSCULAR HEMOGLOBIN 29.1 pg (27.0-33.0); PLATELET COUNT, AUTOMATED 240 10^3/uL (150-450); RED BLOOD COUNT 3.02 10^6/uL (4.00-5.40); WHITE BLOOD COUNT 6.5 10^3/uL (4.0-10.0)
[2018-06-20 07:35] LABS: C REACTIVE PROTEIN QUANTITATIV 8.18 MG/DL (0.00-0.30); CALCIUM LEVEL 8.6 MG/DL (8.8-10.2); CREATININE FOR GFR 2.39 MG/DL (0.55-1.30); GLOMERULAR FILTRATION RATE 21.7 (>45); POTASSIUM SERUM 4.3 MEQ/L (3.5-5.1)
[2018-06-20] MEDS: SPIRONOLACTONE 25 MG TAB PO SCH (08:30)
[2018-06-20] MEDS: LEVEMIR (INSULIN DETEMIR) 1 UNITS/0.01ML SC SCH ×2 (08:30→21:17)
[2018-06-20] MEDS: HumaLOG INSULIN (NovoLOG) PER UNIT SC SCH ×4 (08:30→21:00)
[2018-06-20] MEDS: PARoxetine 20 MG TAB PO SCH (08:31)
[2018-06-20] MEDS: GABAPENTIN 300 MG CAP PO SCH ×2 (08:31→21:15)
[2018-06-20] MEDS: PANTOPRAZOLE 40MG TAB (PROTONIX) PO SCH (08:31)
[2018-06-20] MEDS: FERROUS SULFATE 325MG TAB PO SCH ×2 (08:31→21:15)
[2018-06-20] MEDS: ISOSORBIDE MON. (IMDUR) 30 MG XR TAB PO SCH (08:31)
[2018-06-20] MEDS: TORSEMIDE 20 MG TAB PO SCH ×2 (08:32→21:15)
[2018-06-20] MEDS: MAGNESIUM OXIDE 400 MG TAB (MAG-OX) PO SCH (08:32)
[2018-06-20] MEDS: CARVedilol 12.5 MG TAB PO SCH ×2 (08:32→21:16)
[2018-06-20] MEDS: SILVER SULFADIAZINE 1% CR 50 GM JAR TOP SCH ×2 (09:19→21:00)
--- NOTE | 2018-06-20 10:39 | IPN ---
DATE: 06/18/2018 SUBJECTIVE: Norma seen and examined this morning at the bedside. Denies any overnight events or issues. Denies shortness of breath. She is concerned about her foot. Temperature 98.0, pulse 77, respiratory rate 16, blood pressure 123/76, saturating 94% on room air. Intake yesterday was 1190. Urine output yesterday was 1025. Weight in the bed scale today was not recorded. GENERAL: Patient is seen sitting in bed upright, awake, alert, oriented times three, comfortable, no acute distress. Extraocular muscles are intact. Tongue is moist. Neck is supple. Oral mucosa is moist. Heart sounds are regular. S1, S2. Lungs are clear to auscultation bilaterally. No crackle, rale or wheeze. ABDOMEN: Soft, obese and nontender. The right lower extremity has trace edema only. The left foot has a large open wound that has a dressing that is weeping. NEUROLOGIC: She is oriented times three. No focal deficit. PSYCHIATRIC: Appropriate mood and affect. LABORATORY DATA: White count 6.6, hemoglobin 8.8, platelets 218. Sodium 134, potassium 4.0, BUN 82, creatinine 2.8. C-reactive protein (CRP) 13. INPATIENT MEDICATIONS: Reviewed by myself and no change from prior. She did receive a dose of Aranesp today and also received 300 mg of Venofer infusion. PROBLEMS: 1. Acute kidney injury (BETTY) on chronic kidney disease (CKD) stage IV. Renal function is improving. She was recently dialyzed on her last admission here and was discharged on 06/12/2018 with a creatinine of 2.8. Her diuretics are presently on hold. Volume status is appropriate and compensated. I plan to resume her on low dose diuretic tomorrow, torsemide 20 mg by mouth twice a day, plus once daily spironolactone. Her electrolytes are acceptable and I discussed with the patient that there is no indication for dialysis initiation at present, although we will monitor her for the same. 2. Anemia related to iron deficiency and chronic renal failure. Patient received 300 mg of Venofer infusion. She also received a dose of Aranesp today, which she will continue on a weekly basis. Inflammation is also contributing to her anemia. There is no need for transfusion at present. 3. Hypertension. Blood pressures are acceptable and I am not making any changes to the current regimen. 4. Diastolic congestive heart failure. Volume status is presently acceptable. Will hold diuretics for another day and plan to resume, but at a lower dose tomorrow.
[2018-06-20] MEDS: ceFAZolin SOD 1 GM in D5W MINI-BAG PLUS 50 ML IV SCH ×2 (10:44→21:59)
--- NOTE | 2018-06-20 13:14 | IPN ---
DATE OF SERVICE: 06/19/2018 SUBJECTIVE: The patient was seen and examined at the bedside today morning. She is afebrile, hemodynamically stable. Her renal function continues to improve. Creatinine is down to 2.5 today. She reports her lower extremity edema is also getting better. She continues to be on intravenous (IV) antibiotics. She is getting dressing changes at the left foot. OBJECTIVE: Vital signs: Temperature is 97.4 degrees Fahrenheit, blood pressure 140/86, pulse is 74, respiratory rate of 18, saturating 94% on room air. Intake and output: Urine output recorded is 550 mL yesterday, 1.4 liters so far today since overnight. Weight in the bed scale is 128.6 kg. PHYSICAL EXAMINATION: General: The patient is awake, alert, oriented times three, lying in bed, morbidly obese. No apparent distress. Head and neck examination: Extraocular muscles intact. Pupils equally round and reactive to light. Mucous membranes are moist. Neck is supple. There is no jugular venous distention (JVD). Cardiovascular: S1, S2, regular rate. 2+ edema of the left leg and 1+ edema of the right leg. Respiratory: Chest is clear to auscultation bilaterally. Bilateral equal air entry. No rales or rhonchi. Abdomen: Soft, obese, positive bowel sounds. Nontender. No organomegaly. Musculoskeletal: She has a dressing on the left foot. Otherwise normal range of movement. Central nervous system (DIE CAST SUPERVISOR): No focal deficit. Power is 5/5 in all extremities. LABORATORY REVIEW: Complete blood count (CBC) showed a WBC 6.3, hemoglobin 8.2, platelets are 427. Basic metabolic profile (BMP) showed sodium 137, potassium 4.2, chloride 103, bicarbonate 30, BUN 66, creatinine is 2.5 (it was 2.8 yesterday), calcium 8.5, C-reactive protein is 0. MICROBIOLOGY: Wound culture is growing Staphylococcus aureus. CURRENT INPATIENT MEDICATIONS: The patient's medications were all reviewed by me. She continues to be on IV cephazolin. She continues to be on torsemide 20 mg by mouth twice a day and spironolactone 25 mg by mouth daily. No other change in the medications today as compared with yesterday. ASSESSMENT AND PLAN: 1. Acute renal failure superimposed on chronic kidney disease stage IV. The patient's renal function is improving. It is okay to continue the diuretics. She recently required hemodialysis during previous hospitalization. At this point, her acid base status is optimal. Electrolytes are within the acceptable range, and edema is improving. I would hold dialysis at this point. However, given a recent history of requiring dialysis, I have gotten vascular surgery on board to get an AV fistula or and AV graft. She got AV fistula twice in the past that has failed. 2. Hyponatremia. The patient had hypovolemic hyponatremia. Sodium has improved to 137 with diuresis. 3. Lower extremity edema. Edema is improving. Continue current dose of torsemide 20 mg by mouth twice a day and spironolactone 25 mg by mouth daily. 4. Anemia in chronic kidney disease. The patient has already been started on Aranesp 100 mcg subcutaneous daily. One dose was given yesterday. Continue by mouth iron. Transfuse as needed for hemoglobin below 8. 5. Osteomyelitis of the left foot. The patient has is growing Staphylococcus aureus from the wound. She is currently on IV cephazolin. 6. Diabetes mellitus type 2. Glucose levels are well controlled. Continue current dose of insulin, Levemir, insulin sliding scale. 7. Peripheral vascular disease. The patient is pending evaluation by vascular surgery for peripheral vascular disease and left lower extremity infection.
[2018-06-20 14:00] VITALS: BP 149/67
--- NOTE | 2018-06-20 21:09 | IPNPDOC ---
Subjective Date Seen The patient was seen on 06/20/18. Subjective Chief Complaint/HPI Left foot osteomyelitis Events since last encounter Jeanne reports that she generally is feeling about the same. She has been thinking carefully about what she would like to do for her foot. She does not believe that she would tolerate the hyperbaric oxygen treatments because it requires going in a chamber and she is quite claustrophobic. She is also discouraged because she spoke to Dr. Calixto and he pointed out that there are changes in the structure of her foot that indicate that even if she were to get all of the open lesions healed she is much more prone to develop new lesions because the deformities. She is come to the conclusion that she would like to pursue amputation of her foot. She is requesting whether Dr. Matthews would be able to do this. I will clarify this with him. General: Reports: Normal Appetite Constitutional: Denies: Chills, Fever Pulmonary: Denies: Dyspnea, Cough Cardiovascular: Denies: Chest Pain, Palpitations Hematologic: Denies: Bruising, Bleeding Excessively Psych: Reports: Mood Normal Objective Physical Examination General Exam: Positive: Alert, Cooperative (laying in bed when I entered the room), No Acute Distress Eye Exam: Positive: Conjunctiva & lids normal; Negative: Sclera icteric ENT Exam: Positive: Mucous membr. moist/pink, Nares Patent Neck Exam: Negative: JVD, Lymphadenopathy Chest Exam: Positive: Clear to auscultation, Normal air movement Heart Exam: Positive: Rate Normal, Regular Rhythm, Normal S1, Normal S2; Negative: Murmurs, Rubs Abdomen Exam: Positive: Normal bowel sounds, Soft; Negative: Tenderness Extremity Exam: Positive: Other (her left foot was wrapped today. Bandage is clean dry and intact today) Psych Exam: Positive: Mental status NL, Mood NL, Oriented x 3 A-FIB/CHADSVASC A-FIB History Current/History of A-Fib/PAF?: No Assessment /Plan Problems (1) Osteomyelitis of foot, acute Status: Acute Problem Text: She is on cefazolin IV twice daily. Dr. Dooley will do a telemedicine consultation on Thursday for advice regarding her wounds and the possibility of hyperbaric oxygen therapy. However this may be unnecessary if she is truly pursuing amputation. I'm not going to cancel the consultation yet because of like her to think about this overnight. I will communicate with Dr. Matthews regarding her wishes; I will modify the consultation request to him. (2) Left calcaneal fracture Status: Acute Problem Specific Plan: Consult Specialist Problem Text: She will need to be non-weight bearing on the L foot. P/T is being asked to evaluate her for a knee scooter vs. wheelchair. This may be irrelevant if she chooses amputation. (3) Peripheral vascular disease of extremity Status: Chronic Problem Specific Plan: Consult Specialist Problem Text: She has a known history of peripheral vascular disease. I have asked Dr. Matthews to evaluate her left lower extremity to make sure that the blood flow to that area is adequate for: delivery of antibiotic to the area of osteomyelitis, healing from a possible amputation, or optimizing hyperbaric oxygen treatment. (4) DM2 (diabetes mellitus, type 2) Status: Chronic Problem Text: Her blood glucose levels very, but are not tremendously high while she is here in the hospital. Continue RISS. Continue Levemir 30 units sq bid (5) CKD (chronic kidney disease), stage IV Status: Chronic Problem Specific Plan: Consult Specialist Problem Text: Nephro assisting in management; appreciate their help. They have asked Dr. Matthews to assess her for an AV graft. (6) Diastolic CHF Status: Chronic Problem Text: She is currently receiving spironolactone and torsemide. Nephrology is assisting with the management of these. (7) Hyperlipidemia Status: Chronic Problem Text: Continue home medications. (8) CAD (coronary artery disease) Status: Chronic Response to Treatment: Stable (9) Physical deconditioning Status: Chronic Response to Treatment: Stable Problem Text: PT consulted Plan/VTE VTE Prophylaxis Ordered?: Yes (Heparin ) VS, I&O, 24H, Fishbone Vital Signs/I&O Vital Signs Date Time Temp Pulse Resp B/P (MAP) Pulse Ox O2 Delivery O2 Flow Rate FiO2 06/20/18 14:00 98.5 66 18 149/67 (94) 98 06/16/18 21:50 Room Air I&O- Last 24 Hours up to 6 AM 06/20/18 06:00 Intake Total 1080 ml Output Total 2670 ml Balance -1590 ml Laboratory Data 24H LABS Laboratory Tests 2 06/20/18 07:03: Nucleated Red Blood Cells % (auto) 0.0, Anion Gap 2L, Glomerular Filtration Rate 21.7L, Blood Urea Nitrogen 58H, Creatinine 2.39H, Sodium Level 137, Potassium Level 4.3, Chloride Level 101, Carbon Dioxide Level 34H, Calcium Level 8.6L, C- Reactive Protein, Quantitative 8.18H 06/20/18 12:15: Bedside Glucose (Misc Panel) 189H 06/20/18 17:27: Bedside Glucose (Misc Panel) 188H 06/20/18 20:35: Bedside Glucose (Misc Panel) 155H CBC/BMP Laboratory Tests 06/20/18 07:03 Red Blood Count 3.02 L, Mean Corpuscular Volume 94.0, Mean Corpuscular Hemoglobin 29.1, Mean Corpuscular Hemoglobin Concent 31.0 L, Red Cell Distribution Width 14.7 H, Calcium Level 8.6 L Microbiology Microbiology 06/16/18 Blood Culture - Preliminary, Resulted No Growth after 72 hours. All specime... 06/16/18 Gram Stain - Final, Complete 06/16/18 Wound Culture - Final, Complete Staphylococcus Aureus Jeremy Cornell MD Jun 20, 2018 21:09
[2018-06-20] MEDS: ATORVASTATIN 20 MG TAB PO SCH (21:14)
[2018-06-20] MEDS: CYCLOBENZAPRINE 10 MG TAB PO SCH (21:15)
[2018-06-20 22:00] VITALS: BP 165/58
[2018-06-21] MEDS: HEPARIN SOD (PORCINE) 5000 UNITS/ML VIAL SC SCH ×3 (05:53→21:44)
[2018-06-21 06:00] VITALS: BP 135/60
[2018-06-21 06:49] LABS: HEMATOCRIT 28.5 % (36.0-47.0); HEMOGLOBIN 8.8 g/dl (12.0-15.5); MEAN CORPUSCULAR HEMOGLOBIN 28.9 pg (27.0-33.0); MEAN CORPUSCULAR HGB CONC 30.9 g/dl (32.0-36.5); MEAN CORPUSCULAR VOLUME 93.8 fl (80.0-96.0); PLATELET COUNT, AUTOMATED 239 10^3/uL (150-450); RED BLOOD COUNT 3.04 10^6/uL (4.00-5.40); WHITE BLOOD COUNT 7.4 10^3/uL (4.0-10.0)
[2018-06-21 07:08] LABS: C REACTIVE PROTEIN QUANTITATIV 5.72 MG/DL (0.00-0.30); CALCIUM LEVEL 8.8 MG/DL (8.8-10.2); CREATININE FOR GFR 2.47 MG/DL (0.55-1.30); GLOMERULAR FILTRATION RATE 20.9 (>45)
[2018-06-21] MEDS: LEVEMIR (INSULIN DETEMIR) 1 UNITS/0.01ML SC SCH ×2 (08:47→22:30)
[2018-06-21] MEDS: HumaLOG INSULIN (NovoLOG) PER UNIT SC SCH ×4 (08:47→21:00)
[2018-06-21] MEDS: FERROUS SULFATE 325MG TAB PO SCH ×2 (08:48→21:44)
[2018-06-21] MEDS: PARoxetine 20 MG TAB PO SCH (08:48)
[2018-06-21] MEDS: SPIRONOLACTONE 25 MG TAB PO SCH (08:49)
[2018-06-21] MEDS: GABAPENTIN 300 MG CAP PO SCH ×2 (08:49→21:43)
[2018-06-21] MEDS: TORSEMIDE 20 MG TAB PO SCH ×2 (08:49→21:43)
[2018-06-21] MEDS: PANTOPRAZOLE 40MG TAB (PROTONIX) PO SCH (08:49)
[2018-06-21] MEDS: MAGNESIUM OXIDE 400 MG TAB (MAG-OX) PO SCH (08:49)
[2018-06-21] MEDS: ISOSORBIDE MON. (IMDUR) 30 MG XR TAB PO SCH (08:53)
[2018-06-21] MEDS: CARVedilol 12.5 MG TAB PO SCH ×2 (08:53→21:44)
--- NOTE | 2018-06-21 09:46 | IPNPDOC ---
Subjective Date Seen The patient was seen on 06/21/18. Subjective Chief Complaint/HPI Pt this morning without new concerns. She continues to lean towards BKA. She has no new concerns this morning. She awaits further input from Dr farias and Dr Matthews this morning. General: Denies: Fatigue Constitutional: Denies: Chills, Fever ENT: Denies: Head Aches Skin: Denies: Rash Pulmonary: Denies: Dyspnea, Cough Cardiovascular: Denies: Chest Pain Gastrointestinal: Denies: Nausea, Vomiting Neurological: Reports: Weakness Psych: Reports: Mood Normal Objective Physical Examination General Exam: Positive: Alert, Cooperative (laying in bed when I entered the room), No Acute Distress Eye Exam: Positive: Sclera icteric ENT Exam: Positive: Mucous membr. moist/pink Chest Exam: Positive: Clear to auscultation, Normal air movement Heart Exam: Positive: Rate Normal, Regular Rhythm, Normal S1, Normal S2; Negative: Murmurs, Rubs Abdomen Exam: Positive: Normal bowel sounds, Soft; Negative: Tenderness Extremity Exam: Positive: Other (her left foot was wrapped today. Bandage is clean dry and intact today) Psych Exam: Positive: Mental status NL, Mood NL, Oriented x 3 A-FIB/CHADSVASC A-FIB History Current/History of A-Fib/PAF?: No Current Oral Anticoagulant The: No Assessment /Plan Assessment 06/21: Patient has decided that she wants to have a BKA. She is waiting to see Dr. Matthews. Declined consult with Dr. Farias because she is certain that she wants a BKA. Otherwise denies complaints. -- CDT Problems (1) Osteomyelitis of foot, acute Status: Acute Problem Text: 06/22 Cont current IV abx regimen. Await input from Dr Matthews and Dr Farias. 06/21 She is on cefazolin IV twice daily. Dr. Farias will do a telemedicine consultation on Thursday for advice regarding her wounds and the possibility of hyperbaric oxygen therapy. However this may be unnecessary if she is truly pursuing amputation. I'm not going to cancel the consultation yet because of like her to think about this overnight. I will communicate with Dr. Matthews regarding her wishes; I will modify the consultation request to him. (2) Left calcaneal fracture Status: Acute Problem Specific Plan: Consult Specialist Problem Text: She will need to be non-weight bearing on the L foot. P/T is being asked to evaluate her for a knee scooter vs. wheelchair. This may be irrelevant if she chooses amputation. (3) Peripheral vascular disease of extremity Status: Chronic Problem Specific Plan: Consult Specialist Problem Text: She has a known history of peripheral vascular disease. I have asked Dr. Matthews to evaluate her left lower extremity to make sure that the blood flow to that area is adequate for: delivery of antibiotic to the area of osteomyelitis, healing from a possible amputation, or optimizing hyperbaric oxygen treatment. (4) DM2 (diabetes mellitus, type 2) Status: Chronic Problem Text: Her blood glucose levels very, but are not tremendously high while she is here in the hospital. Continue RISS. Continue Levemir 30 units sq bid (5) CKD (chronic kidney disease), stage IV Status: Chronic Problem Specific Plan: Consult Specialist Problem Text: Nephro assisting in management; appreciate their help. They have asked Dr. Matthews to assess her for an AV graft. (6) Diastolic CHF Status: Chronic Problem Text: She is currently receiving spironolactone and torsemide. Nephrology is assisting with the management of these. (7) Hyperlipidemia Status: Chronic Problem Text: Continue home medications. (8) CAD (coronary artery disease) Status: Chronic Response to Treatment: Stable (9) Physical deconditioning Status: Chronic Response to Treatment: Stable Problem Text: PT consulted Plan/VTE VTE Prophylaxis Ordered?: Yes (Heparin ) VS, I&O, 24H, Fishbone Vital Signs/I&O Vital Signs Date Time Temp Pulse Resp B/P (MAP) Pulse Ox O2 Delivery O2 Flow Rate FiO2 06/21/18 08:53 142/62 06/21/18 08:53 72 06/21/18 06:00 98.0 18 93 06/16/18 21:50 Room Air I&O- Last 24 Hours up to 6 AM 06/21/18 06:00 Intake Total 1770 ml Output Total 2900 ml Balance -1130 ml Laboratory Data 24H LABS Laboratory Tests 2 06/20/18 12:15: Bedside Glucose (Misc Panel) 189H 06/20/18 17:27: Bedside Glucose (Misc Panel) 188H 06/20/18 20:35: Bedside Glucose (Misc Panel) 155H 06/21/18 02:58: Bedside Glucose (Misc Panel) 203H 06/21/18 06:35: Nucleated Red Blood Cells % (auto) 0.0, Anion Gap 5L, Glomerular Filtration Rate 20.9L, Blood Urea Nitrogen 54H, Creatinine 2.47H, Sodium Level 136, Potassium Level 4.0, Chloride Level 97L, Carbon Dioxide Level 34H, Calcium Level 8.8, C- Reactive Protein, Quantitative 5.72H CBC/BMP Laboratory Tests 06/21/18 06:35 Red Blood Count 3.04 L, Mean Corpuscular Volume 93.8, Mean Corpuscular Hemoglobin 28.9, Mean Corpuscular Hemoglobin Concent 30.9 L, Red Cell Distribution Width 15.0 H, Calcium Level 8.8 Microbiology Microbiology 06/16/18 Blood Culture - Preliminary, Resulted No Growth after 72 hours. All specime... 06/16/18 Gram Stain - Final, Complete 06/16/18 Wound Culture - Final, Complete Staphylococcus Aureus MEGHAN VELÁSQUEZ PA-C Jun 21, 2018 09:46 MOE TOLENTINO DO Jun 21, 2018 22:33
[2018-06-21] MEDS: ceFAZolin SOD 1 GM in D5W MINI-BAG PLUS 50 ML IV SCH ×2 (10:19→21:43)
[2018-06-21] MEDS: SILVER SULFADIAZINE 1% CR 50 GM JAR TOP SCH ×2 (10:20→21:43)
[2018-06-21 14:00] VITALS: BP 118/54
--- NOTE | 2018-06-21 14:02 | IPNPDOC ---
Text Note Date of Service The patient was seen on 06/21/18. NOTE Nephrology Service: Subjective: Patient seen and examined at bedside. She denies any acute complaints today. Had dialysis yesterday. Creatinine has been stable at 2.3-2.4 range. Is making good urine and is on diuretics for edema. She is waiting for evaluation for possible amputation of LLE by vascular surgery or revascularization and management of her L foot osteomyelitis. Objective: Vitals: T: 98.0 BP: 142/62 RR: 18 P: 72 O2 Saturation: 93% room air Weight: No recent weight measured/reported Intake: 1710 ml Output: 2800 ml Balance: -1090 ml Urine output: 0.91 ml/kg/hr General: AAO x 3. Sitting up in bed, morbidly obese. NAD. Pleasant and cooperative. HEENT: Head: normocephalic, atraumatic. Eyes: sclera are nonicteric. Nose: No external lesions. Neck: Supple. No JVD. Respiratory: clear to auscultation bilaterally with no wheezes, rales, or rhonchi. Cardiovascular: (+)S1S2, regular rate and rhythm, with no murmurs, rubs or gallops. Abdomen: soft, obese, nontender, nondistended, no hepatosplenomegaly appreciated. Extremities: (+)2 pitting edema bilateral lower extremities; Musculoskeletal: L foot wrapped with kerlix. Neurological: No focal neurologic deficits appreciated bilaterally. Laboratory data: CBC is remarkable for WBC 7.4, RBC 3.04, Hgb 8.8, Hct 28.5, MCV 93.8, RDW 15, MCHC 30.9, platelets 239. BMP is remarkable for Na 136, K 4.0, CO2 34, BUN 54, Cr 2.47, GFR 20.9, glucose 162, Calcium 8.8, CRP 5.72. Microbiology: Blood Cx showed no growth after 72 hours. Cx from L ankle: Gram stain: No cells and no organisms seen Wound Cx: few Staph Aureus (MSSA) Imaging: No new imaging today. Current Inpatient Medications: Cephazolin 1 gm IV q12h. Torsemide 20 mg by mouth twice a day Spironolactone 25 mg by mouth qAM Aranesp 100 mcg Fr@09 SC Ferrous Sulfate 325 mg PO BID No other change in the medications today as compared with yesterday. Assessment/Plan: 1. Acute renal failure superimposed on CKD Stage IV: Renal function is stable and is improving. Continue with current diuretic regimen. Electrolytes are stable. Dr. Yanez has asked vascular surgery to evaluate for AV fistula and AV graft. 2. Hyponatremia: Sodium is WNL today at 136. Has improved with diuresis. 3. Lower extremity edema: 2 (+) pitting in lower extremities bilaterally. Stable. Continue current regimen with torsemide 20 mg BID and spironolactone 25 mg PO qAM. 4. Anemia in CKD: Hgb stable at 8.8. Continue aranesp 100 mcg SC daily and ferrous sulfate 325 mg PO BID. 5. Osteomyelitis of L foot: growing MSSA from wound site. Currently on cephazo ihsan 1 gm IV q12h. Vascular surgery has been consulted for possible amputation of LLE or revascularization and management of her L foot osteomyelitis. Awaiting their recommendations. 6. Diabetes mellitus type 2: Controlled and fingersticks stable. Continue current regimen with levemir 30 units SC BID, humalog ISS at AC and QHS. 7. Peripheral Vascular Disease: pending evaluation by Vascular Surgery for PVD and LLE osteomyelitis. My preceptor for this patient encounter was Dr. Deepika Yanez, and was physically present in the building during the encounter and was fully available. As needed, all aspects of the patient interview, examination, medical decision making process, and medical care plan development were reviewed and approved by the preceptor. Preceptor is aware and concurs with the plan as stated in the body of this note and will attest to such by his/her cosignature. A-FIB/CHADSVASC A-FIB History Current/History of A-Fib/PAF?: No Current Oral Anticoagulant The: No VS,Fishbone, I+O VS, Fishbone, I+O Laboratory Tests 06/21/18 06:35 Red Blood Count 3.04 L, Mean Corpuscular Volume 93.8, Mean Corpuscular Hemoglobin 28.9, Mean Corpuscular Hemoglobin Concent 30.9 L, Red Cell Distribution Width 15.0 H, Calcium Level 8.8 Vital Signs Date Time Temp Pulse Resp B/P (MAP) Pulse Ox O2 Delivery O2 Flow Rate FiO2 06/21/18 08:53 142/62 06/21/18 08:53 72 06/21/18 06:00 98.0 18 93 06/16/18 21:50 Room Air I&O- Last 24 Hours up to 6 AM 06/21/18 06:00 Intake Total 1770 ml Output Total 2900 ml Balance -1130 ml Attending Note Attending Note Pt was seen and examined with the resident. I agree with A/P with following addition or amendments. A: CKD4 LE Edema Lt foot Osteomyelitis/calcaneal fracture Anemia in CKd4 P: Cont current diuretic dose. AVG when she approaches ESRD. Abx as per primary team. ANDREW LANGE DO Jun 21, 2018 13:34 DEEPIKA YANEZ MD Jun 21, 2018 18:20
--- NOTE | 2018-06-21 15:12 | CR.PDOC ---
General Date of Consultation: Jun 21, [address] Matthews HPI: 67-year-old lady with a past medical history of diabetes, on insulin, hypertension, stage IV chronic kidney disease, follows with Dr. Dong, diabetic neuropathy, hyperlipidemia, who was admitted 06/16/18 with left lateral foot wound and calcaneal fracture. Patient had been seen by podiatry and was sent to the emergency room for further evaluation and treatment related to worsening of her foot wound. Vascular Surgery is consulted to assist with LLE foot wound. Denies any fevers, chills, weakness, fatigue, Headache, Chest Pain, Shortness of breath, cough, palpitations, abdominal pain, N/V/D or changes in bowel or bladder habits. PAST MEDICAL HISTORY: As mentioned above PAST SURGICAL HISTORY: She has had right 2nd, 4th and 5th toe amputations, left 3rd, 4th, 5th toe amputations plus left ankle sx, a hysterectomy, cholecystectomy, partial appendectomy. SOCIAL HISTORY: Patient does not smoke, drink, use drugs FAMILY HISTORY: Not treated at this time FAMHX: non contributory ROS: As noted in HPI, otherwise 11pt ROS of systems reviewed and unremarkable. PE: GEN: 67yoF, appears stated age. Well-nourished, well developed. No acute distress. Alert and oriented x 3. Pleasant, interactive. HEENT: Normocephalic, atraumatic. Moist mucous membranes. CHEST: Regular rate and rhythm, +S1, +S2 LUNGS: Clear to auscultation bilaterally. No wheezes, rales, or rhonchi. Breathing appears symmetric and easy. Patient is speaking in full sentences. No accessory muscle use. ABD: Round, soft, non-tender, non-distended. +Bowel sounds throughout. No rebound or guarding. No costovertebral angle tenderness. EXT: Left foot is bandaged. Pt with wound extending along lateral aspect left foot and plantar wounds as well. SKIN: [place], dry, warm. No rashes. NEURO: Alert and oriented x 3. Cranial nerves III-XII are intact. No focal deficits appreciated. Left foot MRI 1. Lateral soft tissue edema. There is adjacent edema within the bone marrow of the base of the fifth metatarsal on T2 fat-suppressed and T1-weighted images consistent with acute osteomyelitis. A smaller focus of edema is present within the distal and lateral cuboid also suspicious for acute osteomyelitis. 2. There is a transverse fracture across the calcaneus. Electronically signed by: Prem Valverde On 06/16/2018 21:26:12 PM A&P: 67-year-old lady with a past medical history of diabetes, on insulin, hypertension, stage IV chronic kidney disease, follows with Dr. Dong, diabetic neuropathy, hyperlipidemia, who was admitted 06/16/18 with left lateral foot wound and calcaneal fracture. Patient had been seen by podiatry and was sent to the emergency room for further evaluation and treatment related to worsening of her foot wound. Vascular Surgery is consulted to assist with LLE foot wound. Chronic Left foot wound. Osteomyelitis of L foot: growing MSSA from wound site. Currently on cephazolin 1 gm IV q12h. The patient is requesting to consider Left BKA. Dr. Matthews to discuss further with the patient. Angiogram completed last admission. No intervention required. Continue wound care. Acute renal failure superimposed on CKD Stage IV Dr. Yanez has asked vascular surgery to evaluate for AV fistula and AV graft. Anemia in CKD: Hgb stable at 8.8. aranesp/ferrous sulfate Diabetes mellitus type 2 Mgmt as per primary team. DVT prophylaxis. Subcutaneous heparin. Thank you for your consultation. We will continue to follow along with you. Vital Signs/I&O Vital Signs Date Time Temp Pulse Resp B/P (MAP) Pulse Ox O2 Delivery O2 Flow Rate FiO2 06/21/18 08:53 142/62 06/21/18 08:53 72 06/21/18 06:00 98.0 18 93 06/16/18 21:50 Room Air I&O- Last 24 Hours up to 6 AM 06/21/18 06:00 Intake Total 1770 ml Output Total 2900 ml Balance -1130 ml Laboratory Data Labs 24H Laboratory Tests 2 06/20/18 17:27: Bedside Glucose (Misc Panel) 188H 06/20/18 20:35: Bedside Glucose (Misc Panel) 155H 06/21/18 02:58: Bedside Glucose (Misc Panel) 203H 06/21/18 06:35: Nucleated Red Blood Cells % (auto) 0.0, Anion Gap 5L, Glomerular Filtration Rate 20.9L, Blood Urea Nitrogen 54H, Creatinine 2.47H, Sodium Level 136, Potassium Level 4.0, Chloride Level 97L, Carbon Dioxide Level 34H, Calcium Level 8.8, C- Reactive Protein, Quantitative 5.72H 06/21/18 12:09: Bedside Glucose (Misc Panel) 181H CBC/BMP Laboratory Tests 06/21/18 06:35 Red Blood Count 3.04 L, Mean Corpuscular Volume 93.8, Mean Corpuscular Hemoglobin 28.9, Mean Corpuscular Hemoglobin Concent 30.9 L, Red Cell Distribution Width 15.0 H, Calcium Level 8.8 Microbiology Microbiology 06/16/18 Blood Culture - Preliminary, Resulted No Growth after 72 hours. All specime... 06/16/18 Gram Stain - Final, Complete 06/16/18 Wound Culture - Final, Complete Staphylococcus Aureus Allergies Coded Allergies: TAPE (Verified Allergy, Intermediate, RASH, 05/19/18) citric acid (Verified Allergy, Intermediate, HIVES/ITCHING, 05/19/18) sodium bicarbonate (Verified Allergy, Intermediate, HIVES/ITCHING, 05/19/18) hydrocodone (Verified Allergy, Mild, ITCHES, 05/19/18) Home Medications Scheduled Aspirin (Aspirin EC) 81 Mg Tab, 81 MG PO QHS, (Reported) Atorvastatin Calcium (Atorvastatin Calcium) 40 Mg Tab, 40 MG PO QHS, (Reported) Calcitriol (Calcitriol) 0.25 Mcg Cap, 0.25 MCG PO DAILY, (Reported) Carvedilol (Coreg) 12.5 Mg Tab, 12.5 MG PO BID, (Reported) Cyclobenzaprine HCl (Cyclobenzaprine HCl) 10 Mg Tab, 10 MG PO QHS, (Reported) Ferrous Sulfate (Ferrous Sulfate) 325 Mg Tab, 325 MG PO BID, (Reported) Folic Acid/Vit B Complex and C (Sofia-Nicolas Tablet) 1 Tab Tab, 1 TAB PO DAILY, (Reported) Gabapentin (Gabapentin) 300 Mg Cap, 600 MG PO QHS, (Reported) Gabapentin (Gabapentin) 300 Mg Cap, 300 MG PO QAM, (Reported) Insulin Glargine,Hum.rec.anlog (Lantus Solostar) 100 Unit/1 Ml Insuln.pen, 30 UNIT SC BID, (Reported) Insulin Human Lispro (Humalog) 100 Unit/1 Ml Vial, 1 DOSE SC AC, (Reported) PER SLIDING SCALE Isosorbide Mononitrate (Isosorbide Mononitrate ER) 30 Mg Tab, 30 MG PO DAILY, (Reported) Magnesium Oxide (Magnesium Oxide) 400 Mg Tab, 400 MG PO DAILY, (Reported) Pantoprazole Sodium (Pantoprazole Sodium) 40 Mg Tablet.dr, 40 MG PO DAILY, (Reported) Paroxetine HCl (Paroxetine) 40 Mg Tab, 40 MG PO DAILY, (Reported) Spironolactone (Spironolactone) 25 Mg Tab, 25 MG PO DAILY, (Reported) Torsemide (Torsemide) 20 Mg Tablet, 40 MG PO BID, (Reported) TAKES QAM AND DINNERTIME Scheduled PRN Acetaminophen (Acetaminophen) 325 Mg Tablet, 650 MG PO Q6H PRN for PAIN, (Reported) Glucagon,Human Recombinant (Glucagon Emergency Kit) 1 Mg Vial, 1 MG IM ASDIRECTED PRN for LOW BLOOD SUGAR, (Reported) Clari Mike Jun 21, 2018 15:12
[2018-06-21 20:00] VITALS: BP 158/82
[2018-06-21] MEDS: ATORVASTATIN 20 MG TAB PO SCH (21:43)
[2018-06-21] MEDS: CYCLOBENZAPRINE 10 MG TAB PO SCH (21:44)
--- NOTE | 2018-06-22 05:58 | IPN ---
DATE OF VISIT: 06/20/2018 The patient is seen for evaluation status post debridement of peroneal tendon sheath infection of the left foot, subsequent calcaneal fracture. She was again readmitted to the hospital. Repeat MRI reveals a calcaneal fracture; however, there is early osteomyelitis of the base of the fifth metatarsal and cuboid. The patient's foot also has a supinated position today. When she is seen at the bedside the bandage on her left foot was removed. There is good granulation tissue along the surgical site and the extensor tendons are covered now in granulation tissue. However, osteomyelitis is present on the fifth metatarsal base and cuboid, as well as a calcaneal fracture that enters the joint which would keep her nonweight bearing for six months. We discussed with the patient surgical debridement of the infected bone, possible hyperbaric oxygen therapy and six weeks of intravenous (IV) antibiotics. Her laboratory studies were reviewed revealing a white count of 6.5, C-reactive protein trending downward at 8.18, GFR is 21.7. ASSESSMENT: Osteomyelitis fifth metatarsal, as well as cuboid and calcaneal fracture of the left foot. PLAN: We discussed with the patient the surgical management consisting of debridement of the osteomyelitic bone with hyperbaric oxygen and six weeks of antibiotic therapy. We discussed with the patient she would also have to be nonweight bearing for six weeks, no guarantee that her foot would function appropriately especially in light of her varus position of her foot. We also discussed management with a below the knee amputation which would allow her early weight bearing status and possibly increase her overall mobility. Her questions were answered.
[2018-06-22] MEDS: HEPARIN SOD (PORCINE) 5000 UNITS/ML VIAL SC SCH ×3 (06:14→23:46)
--- NOTE | 2018-06-22 06:20 | IPN ---
DATE OF VISIT: 06/20/2018 SUBJECTIVE: The patient was seen and examined at the bedside today morning. She is afebrile, hemodynamically stable, renal function continues to improve, creatinine is down to 2.3 and she is responding well to the diuretics. The edema is improving, hemoglobin is also improving with a hemoglobin of 8.8 today. She was seen by vascular surgery yesterday and as reported by the patient she was told that she would only need the arteriovenous (AV) graft and that she is approaching dialysis and she is also pending re-evaluation of the left foot today while her dressing is changed. OBJECTIVE: VITAL SIGNS: Temperature is 98.5 degrees Fahrenheit, blood pressure 149/67, pulse is 66, respiratory rate of 18, saturating 98% on room air. Intake and output: Urine output recorded as 1.4 liters yesterday 2 liters so far today since overnight. Weight in the bed scale was 128.6 kg yesterday. PHYSICAL EXAMINATION: GENERAL: The patient is awake, alert, oriented times three, laying in bed in no apparent distress. HEAD/NECK: The extraocular muscles intact. Pupils equally round and reactive to light. Mucous membranes are moist. Neck is supple. There is no jugular venous distention (JVD). CARDIOVASCULAR: S1, S2, regular rate. 2+ edema of the left lower extremity, 1+ edema of the right lower extremity. RESPIRATORY: Chest is clear to auscultation bilaterally. Bilateral equal air entry. No rales or rhonchi. ABDOMEN: Soft, obese, positive bowel sounds. Nontender. MUSCULOSKELETAL: She has a dressing on the left foot, otherwise normal range of movement of the extremities. CENTRAL NERVOUS SYSTEM (SURGICAL COORDINATOR): No focal deficit, power is 5/5 in all extremities. LABORATORY DATA: CBC showed WBC 6.5, hemoglobin is 8.8, platelets of 240. Basic metabolic panel (BMP) showed sodium 137, potassium 4.3, chloride 101, bicarb 34, BUN 58, creatinine is 2.3, it was 2.5 yesterday. Calcium 8.6, C-reactive protein is 8.1. IMAGING: MRI of the foot done June 16, 2018 is showing osteomyelitis in the fifth metatarsal and the cuboid bone as well. CURRENT INPATIENT MEDICATIONS: The patient's medications were all reviewed by me. She continues to be on: - IV cephazolin - diuretics dose continues to be spironolactone 25 mg daily - torsemide 20 mg by mouth twice a day. ASSESSMENT AND PLAN: 1. Acute kidney injury superimposed on chronic kidney disease stage IV. The patient is responding well to the diuretics. Her antibiotic have been changed. Her renal function is improving, creatinine is down to 2.3 which is close to her baseline. Okay to continue diuretics at this point. The patient would only need arteriovenous (AV) graft placement when she approaches chronic kidney disease stage V. 2. Osteomyelitis of the left foot. The patient is getting intravenous (IV) cephazolin for staph aureus infection. She was seen by vascular surgery and she is discussing possible amputation of left foot because of chronic osteomyelitis and nonhealing ulcers. 3. Anemia in chronic kidney disease. Continue oral iron. She is responding to Aranesp, hemoglobin is slowly improving.
[2018-06-22 06:22] VITALS: BP 148/72
[2018-06-22 07:18] LABS: C REACTIVE PROTEIN QUANTITATIV 5.55 MG/DL (0.00-0.30); CALCIUM LEVEL 8.6 MG/DL (8.8-10.2); CREATININE FOR GFR 2.82 MG/DL (0.55-1.30); GLOMERULAR FILTRATION RATE 17.9 (>45); POTASSIUM SERUM 4.3 MEQ/L (3.5-5.1)
[2018-06-22 07:41] LABS: HEMATOCRIT 31.2 % (36.0-47.0); HEMOGLOBIN 9.5 g/dl (12.0-15.5); MEAN CORPUSCULAR HEMOGLOBIN 28.9 pg (27.0-33.0); MEAN CORPUSCULAR HGB CONC 30.4 g/dl (32.0-36.5); MEAN CORPUSCULAR VOLUME 94.8 fl (80.0-96.0); PLATELET COUNT, AUTOMATED 222 10^3/uL (150-450); RED BLOOD COUNT 3.29 10^6/uL (4.00-5.40); WHITE BLOOD COUNT 8.8 10^3/uL (4.0-10.0)
[2018-06-22] MEDS: LEVEMIR (INSULIN DETEMIR) 1 UNITS/0.01ML SC SCH ×2 (08:11→23:46)
[2018-06-22] MEDS: HumaLOG INSULIN (NovoLOG) PER UNIT SC SCH ×4 (08:12→21:00)
[2018-06-22] MEDS: MAGNESIUM OXIDE 400 MG TAB (MAG-OX) PO SCH (08:13)
[2018-06-22] MEDS: TORSEMIDE 20 MG TAB PO SCH (08:13)
[2018-06-22] MEDS: GABAPENTIN 300 MG CAP PO SCH ×2 (08:13→23:44)
[2018-06-22] MEDS: SPIRONOLACTONE 25 MG TAB PO SCH (08:13)
[2018-06-22] MEDS: PARoxetine 20 MG TAB PO SCH (08:14)
[2018-06-22] MEDS: FERROUS SULFATE 325MG TAB PO SCH ×2 (08:14→23:44)
[2018-06-22] MEDS: PANTOPRAZOLE 40MG TAB (PROTONIX) PO SCH (08:14)
[2018-06-22] MEDS: CARVedilol 12.5 MG TAB PO SCH ×2 (08:17→23:45)
[2018-06-22] MEDS: ISOSORBIDE MON. (IMDUR) 30 MG XR TAB PO SCH (08:21)
[2018-06-22] MEDS: SILVER SULFADIAZINE 1% CR 50 GM JAR TOP SCH ×2 (08:22→21:00)
--- NOTE | 2018-06-22 08:42 | IPNPDOC ---
Date Seen The patient was seen on 06/22/18. Progress Note Vascular Surgery Dr Matthews HPI: 67-year-old lady with a past medical history of diabetes, on insulin, hypertension, stage IV chronic kidney disease, follows with Dr. Dong, diabetic neuropathy, hyperlipidemia, who was admitted 06/16/18 with left lateral foot wound and calcaneal fracture. Patient had been seen by podiatry and was sent to the emergency room for further evaluation and treatment related to worsening of her foot wound. Vascular Surgery is consulted to assist with LLE foot wound. Plan is to proceed with LLE BKA this afternoon as per Dr Matthews. Pt with no additional questions or concerns at this time. Denies any fevers, chills, weakness, fatigue, Headache, Chest Pain, Shortness of breath, cough, palpitations, abdominal pain, N/V/D or changes in bowel or bladder habits. PAST MEDICAL HISTORY: As mentioned above PAST SURGICAL HISTORY: She has had right 2nd, 4th and 5th toe amputations, left 3rd, 4th, 5th toe amputations plus left ankle sx, a hysterectomy, cholecystectomy, partial appendectomy. PE: GEN: 67yoF, appears stated age. Well-nourished, well developed. No acute distress. Alert and oriented x 3. Pleasant, interactive. HEENT: Normocephalic, atraumatic. Conjunctiva without injection. Moist mucous membranes. Dentition fair. P CHEST: Regular rate and rhythm, +S1, +S2 LUNGS: Clear to auscultation bilaterally. No wheezes, rales, or rhonchi. Breathing appears symmetric and easy. Patient is speaking in full sentences. No accessory muscle use. ABD: Round, soft, non-tender, non-distended. +Bowel sounds throughout. No rebound or guarding. No costovertebral angle tenderness. EXT: Left foot bandaged. SKIN: [place], dry, warm. No rashes. NEURO: Alert and oriented x 3. Cranial nerves III-XII are intact. No focal deficits appreciated. Left foot MRI 1. Lateral soft tissue edema. There is adjacent edema within the bone marrow of the base of the fifth metatarsal on T2 fat-suppressed and T1-weighted images consistent with acute osteomyelitis. A smaller focus of edema is present within the distal and lateral cuboid also suspicious for acute osteomyelitis. 2. There is a transverse fracture across the calcaneus. Electronically signed by: Prem Valverde On 06/16/2018 21:26:12 PM A&P: 67-year-old lady with a past medical history of diabetes, on insulin, hypertension, stage IV chronic kidney disease, follows with Dr. Dong, diabetic neuropathy, hyperlipidemia, who was admitted 06/16/18 with left lateral foot wound and calcaneal fracture. Patient had been seen by podiatry and was sent to the emergency room for further evaluation and treatment related to worsening of her foot wound. Vascular Surgery is consulted to assist with LLE foot wound. Chronic Left foot wound. Osteomyelitis of L foot: growing MSSA from wound site. Currently on cephazolin 1 gm IV q12h. The patient is requesting to consider Left BKA. Dr. Matthews discussed proceeding with LLE BKA, Pt wishes to proceed, plan is for later today. Angiogram completed last admission. No intervention required. Continue wound care. Acute renal failure superimposed on CKD Stage IV Dr. Yanez has asked vascular surgery to evaluate for AV fistula and AV graft. Anemia in CKD: Hgb stable at 8.8. aranesp/ferrous sulfate Diabetes mellitus type 2 Mgmt as per primary team. DVT prophylaxis. Subcutaneous heparin. A-FIB/CHADSVASC A-FIB History Current/History of A-Fib/PAF?: No VS, I&O, 24H, Fishbone Vital Signs/I&O Vital Signs Date Time Temp Pulse Resp B/P (MAP) Pulse Ox O2 Delivery O2 Flow Rate FiO2 06/22/18 08:21 132/56 06/22/18 08:17 80 06/22/18 06:22 97.9 16 95 06/16/18 21:50 Room Air I&O- Last 24 Hours up to 6 AM 06/22/18 06:00 Intake Total 290 ml Output Total 1250 ml Balance -960 ml Laboratory Data 24H LABS Laboratory Tests 2 06/21/18 12:09: Bedside Glucose (Misc Panel) 181H 06/21/18 17:15: Bedside Glucose (Misc Panel) 198H 06/21/18 22:25: Bedside Glucose (Misc Panel) 148H 06/22/18 06:53: Nucleated Red Blood Cells % (auto) 0.0, Anion Gap 6L, Glomerular Filtration Rate 17.9L, Blood Urea Nitrogen 58H, Creatinine 2.82H, Sodium Level 134L, Potassium Level 4.3, Chloride Level 99, Carbon Dioxide Level 29, Calcium Level 8.6L, C- Reactive Protein, Quantitative 5.55H CBC/BMP Laboratory Tests 06/22/18 06:53 Red Blood Count 3.29 L, Mean Corpuscular Volume 94.8, Mean Corpuscular Hemoglobin 28.9, Mean Corpuscular Hemoglobin Concent 30.4 L, Red Cell Distribution Width 15.3 H, Calcium Level 8.6 L Microbiology Microbiology 06/16/18 Blood Culture - Final, Complete NO GROWTH AFTER 5 DAYS 06/16/18 Gram Stain - Final, Complete 06/16/18 Wound Culture - Final, Complete Staphylococcus Aureus Clari Mike Jun 22, 2018 08:42
[2018-06-22] MEDS: ceFAZolin SOD 1 GM in D5W MINI-BAG PLUS 50 ML IV SCH ×2 (11:11→22:00)
--- NOTE | 2018-06-22 11:28 | IPNPDOC ---
Text Note Date of Service The patient was seen on 06/22/18. NOTE Nephrology Service: Subjective: Patient seen and examined at bedside. She denies any acute complaints today. Creatinine has been stable in 2.4-2.8 range. Is making good urine and is on diuretics for edema. Vascular Surgery evaluated patient and patient is to proceed later today with MESFIN ACEVEDO. We have also requested Dr. Matthews to evaluate her for AV fistula/graft. Patient denies fevers, chills, nausea, vomiting, abdominal pain, diarrhea, constipation, weakness in extremities, dizziness, headache. Objective: Vitals: T: 97.9 BP: 132/56 RR: 16 P: 80 O2 Saturation: 95% room air Weight: No recent weight measured/reported Intake: 410 ml Output: 2550 ml Balance: -2140 ml Urine output: 0.83 ml/kg/hr General: AAO x 3. Sitting up in bed, morbidly obese. NAD. Pleasant and cooperative. HEENT: Head: normocephalic, atraumatic. Eyes: sclera are nonicteric. Neck: Supple. No JVD. Respiratory: Clear to auscultation bilaterally with no wheezes, rales, or rhonchi. Cardiovascular: (+)S1S2, regular rate and rhythm, with no murmurs, rubs or gallops. Abdomen: Soft, obese, nontender, nondistended, no hepatosplenomegaly appreciated. Normoactive bowel sounds. Extremities: (+)2 pitting edema bilateral lower extremities Musculoskeletal: L foot wrapped with kerlix. Neurological: No focal neurologic deficits appreciated bilaterally. Laboratory data: CBC is remarkable for WBC 8.8, RBC 3.29, Hgb 9.5, Hct 31.2, MCV 94.8, RDW 15.3, MCHC 30.4, platelets 222. BMP is remarkable for Na 134, K 4.3, CO2 29, BUN 58, Cr 2.82, GFR 17.9, glucose 177, Calcium 8.6, CRP 5.55. Microbiology: Blood Cx showed no growth after 5 days. Cx from L ankle: Gram stain: No cells and no organisms seen Wound Cx: few Staph Aureus (MSSA) Imaging: No new imaging today. Current Inpatient Medications: Cephazolin 1 gm IV q12h Aranesp 100 mcg Fr@09 SC Ferrous Sulfate 325 mg PO BID No other change in the medications today as compared with yesterday. Stopped Medications: Diuretics have been d/ce'd due to bump in creatinine today. Torsemide 20 mg by mouth twice a day Spironolactone 25 mg by mouth qAM Assessment/Plan: 1. Acute renal failure superimposed on CKD Stage IV: Renal function is declining a bit. Creatinine has gone from 2.47 to 2.82 and GFR has declined from 20.9 to 17.9. Discontinued diuretics torsemide and spironolactone today due to bump in creatinine. Electrolytes are fairly stable. Dr. Justin has asked vascular surgery to evaluate for AV fistula and AV graft. 2. Hyponatremia: Sodium is mildly low today at 134. Continue to monitor BMP. 3. Lower extremity edema: 2 (+) pitting in lower extremities bilaterally. Stable. Monitor clinically for now as diuretics had to be discontinued. 4. Anemia in CKD: Hgb stable and increased to 9.5 today. Continue aranesp 100 mcg SC daily and ferrous sulfate 325 mg PO BID. 5. Osteomyelitis of L foot/L Calcaneal Fracture: growing MSSA from wound site. Currently on cephazolin 1 gm IV q12h. Vascular surgery is proceeding later today with BKA and has made patient NPO. 6. Diabetes mellitus type 2: Controlled and fingersticks stable. Continue current regimen with levemir 30 units SC BID, humalog ISS at AC and QHS. 7. Peripheral Vascular Disease: Appreciate Vascular Surgery input. Continue with recommendations of Vascular Surgery for PVD and LLE osteomyelitis. My preceptor for this patient encounter was Dr. Deepika Justin, and was physically present in the building during the encounter and was fully available. As needed, all aspects of the patient interview, examination, medical decision making process, and medical care plan development were reviewed and approved by the preceptor. Preceptor is aware and concurs with the plan as stated in the body of this note and will attest to such by his/her cosignature. A-FIB/CHADSVASC A-FIB History Current/History of A-Fib/PAF?: No Current Oral Anticoagulant The: No VS,Fishbone, I+O VS, Fishbone, I+O Laboratory Tests 06/22/18 06:53 Red Blood Count 3.29 L, Mean Corpuscular Volume 94.8, Mean Corpuscular Hemoglobin 28.9, Mean Corpuscular Hemoglobin Concent 30.4 L, Red Cell Distribution Width 15.3 H, Calcium Level 8.6 L Vital Signs Date Time Temp Pulse Resp B/P (MAP) Pulse Ox O2 Delivery O2 Flow Rate FiO2 06/22/18 08:21 132/56 06/22/18 08:17 80 06/22/18 06:22 97.9 16 95 06/16/18 21:50 Room Air I&O- Last 24 Hours up to 6 AM 06/22/18 06:00 Intake Total 290 ml Output Total 1250 ml Balance -960 ml Attending Note Attending Note Pt was examined with the resident. BETTY on CKD4 Lt Foot Osteomyelitis Leg edema DM Typ2 Hold diuretic today because of bump in Cr. Pt going to OR for Lt BKA. ANDREW LANGE DO Jun 22, 2018 11:28 DEEPIKA JUSTIN MD June 23, 2018 21:44
[2018-06-22 14:00] VITALS: BP 128/56
[2018-06-22] MEDS ORDERED: LIDOCAINE 2% MDV 20 ML VIAL As Ordered ONE (17:16)
[2018-06-22] MEDS ORDERED: ROCURONIUM BROMIDE 50 MG/5 ML VIAL As Ordered ONE (17:39)
[2018-06-22] MEDS ORDERED: ceFAZolin 2 GM/D5W 50 ML IV BAG (J0690 PER 500MG) As Ordered ONE (17:41)
[2018-06-22] MEDS ORDERED: HYDROmorphone HCL 2 MG/ML 1ML VIAL (J1170) As Ordered ONE (18:10)
[2018-06-22] MEDS ORDERED: ePHEDrine SULFATE 25 MG/5 ML(5MG/ML) SYRINGE As Ordered ONE (18:23)
[2018-06-22] MEDS ORDERED: PHENYLephrine HCL 500 MCG/5 ML (100MCG/ML) SYRINGE (J2370) As Ordered ONE ×2 (18:23→18:44)
[2018-06-22] MEDS ORDERED: GLYCOPYRROLATE INJ 0.2 MG/ML 2 ML VIAL As Ordered ONE (19:16)
[2018-06-22] MEDS ORDERED: NEOSTIGMINE 10 MG/10 ML VIAL (J2710) As Ordered ONE (19:16)
[2018-06-22] MEDS ORDERED: fentaNYL 100 MCG/2 ML INJECTION (J3010) As Ordered ONE (19:59)
[2018-06-22] MEDS ORDERED: HYDROMORPHONE HCL 0.5 MG/ 0.5 ML SYRINGE (J1170 PER 1) IV PRN ×2 (20:00→23:30)
[2018-06-22] MEDS: fentaNYL 100 MCG/2 ML INJECTION (J3010) IV PRN ×4 (20:01→20:20)
[2018-06-22] MEDS ORDERED: ACETAMINOPHEN 1000MG 100ML IV BTL (OFIRMEV) (J0131 PER 10MG) As Ordered ONE (20:22)
[2018-06-22] MEDS ORDERED: HYDROMORPHONE HCL 0.5 MG/ 0.5 ML SYRINGE (J1170 PER 1) As Ordered ONE (20:38)
[2018-06-22] MEDS ORDERED: ACETAMINOPHEN *IV* 1,000 MG in APPROPRIATE DILUENT 1 EA IV ONE (21:00)
[2018-06-22] MEDS ORDERED: BUPIVACAINE HCL 0.25% 30 ML VIAL As Ordered ONE (21:18)
[2018-06-22] MEDS ORDERED: BUPIVACAINE HCL 0.25% 10 ML VIAL As Ordered ONE (21:18)
[2018-06-22] MEDS ORDERED: MIDAZOLAM INJ 2 MG/2 ML VIAL (J2250) As Ordered ONE (21:29)
[2018-06-22] MEDS ORDERED: MIDAZOLAM INJ 2 MG/2 ML VIAL (J2250) IV ONE (21:30)
--- NOTE | 2018-06-22 21:44 | CR ---
DATE OF CONSULTATION: 06/21/2018 CONSULTATION REPORT FOR: Hospitalist. REASON FOR CONSULTATION: Acute osteomyelitis of the left foot with a fracture of the calcaneus. HISTORY OF PRESENT ILLNESS: The patient is a pleasant 66-year-old female with a history of insulin-dependent diabetes, diabetic neuropathy who was admitted on 05/18/2018 and discharged on 06/12/2018 with methicillin-sensitive Staphylococcus aureus (MSSA) abscess of the left foot status post incision and drainage and IV antibiotic. The patient was treated with cefazolin during her hospitalization and was discharged home on oral Cipro. Her initial cultures on 05/17/2018, blood and wound were positive for MSSA. She was being seen by podiatry at Dr. Calixto's office who was examining the wound and did an x-ray. He found the calcaneus fracture and the wound was macerated with a lot of purulent drainage and he recommended she gets admitted to the hospital. A wound culture was repeated and still had MSSA. She had an MRI which was consistent with soft tissue edema with bone marrow enhancement of the fifth metatarsal consistent with acute osteomyelitis and possibly osteomyelitis of the distal and lateral cuboid and a transverse fracture was noted of the calcaneus. She denied any fever, chills, night sweats. No nausea, vomiting or diarrhea. The patient feels well otherwise. She has been on IV cefazolin at a dose of 1 gram every12 hours. Her urine output has been decent. The patient is ready for a below-knee amputation. She feels this wound will never heal and she has much better chances of recovery with a below-knee amputation (BKA). She is being evaluated by Dr. Matthews for upcoming surgery. PAST MEDICAL HISTORY: Significant for: 1. Hyperlipidemia. 2. Obesity. 3. Insulin-dependent diabetes, non compliant to diet. 4. Stage IV chronic kidney disease. The patient required dialysis last admission. 5. Multiple episodes of osteomyelitis and amputations of the toes. PAST SURGICAL HISTORY: Right foot second, fourth and fifth toe amputation, left foot third, fourth and fifth toe amputation and incision and drainage of the foot during previous hospitalization due to infected tenosynovitis, hysterectomy, cholecystectomy, appendectomy. SOCIAL HISTORY: She is . She is currently with her third . She does not smoke, drink or use drugs. REVIEW OF SYSTEMS: She denies any nausea, vomiting, diarrhea, abdominal pain, fever, chills. She does have some edema but that is at baseline. PHYSICAL EXAMINATION: She is a pleasant, healthy-looking, female in no acute distress. Temperature is 98, pulse 75, respirations 18, blood pressure 118/54, oxygen saturation 96% on room air. She has been afebrile throughout this admission. HEART: Normal S1, S2. No murmurs, distant. LUNGS: Clear. No wheezes, rales or rhonchi. ABDOMEN: Morbidly obese, soft, nontender. No hepatosplenomegaly. BACK: No costovertebral angle (CVA) or lumbosacral tenderness. EXTREMITIES: Trace edema on the right side with decreased posterior tibialis and dorsalis pedis pulses. Left leg has +1 pitting edema. An open incision along the fifth metatarsal with purulent discharge. She has third, fourth, fifth amputation. Heel is very swollen with macerated tissue, maceration medially as well with purulent drainage. LABORATORY DATA: White count is 7.4, hemoglobin 8.8, hematocrit 28.5, platelets 239. ESR 126. Sodium 136, potassium 4, chloride 97, bicarbonate 34, BUN 54, creatinine 2.47 which is down from 3.4 on admission, CRP 5.72. Culture from 06/16/2018 is positive for MSSA, left ankle, left foot. Blood culture was negative. Urine culture was negative. IMAGING STUDIES: Ankle x-ray showed a calcaneus fracture, comminuted, displaced of the anterior calcaneus and foot MRI shows lateral soft tissue edema and acute osteomyelitis of the fifth metatarsal cuboid, transverse fracture. Chest x-ray showed cardiomegaly with no infiltrates. IMPRESSION: This is a 67-year-old female who was admitted with Staphylococcus aureus abscess of the left foot, treated with four weeks of IV antibiotics on her previous admission, discharged home on oral Cipro, Staphylococcus aureus was susceptible. She developed acute osteomyelitis on treatment and a calcaneus fracture. The patient is ready for a below-knee amputation as she does not feel that she is able to continue with antibiotic and also to allow healing of that foot. PLAN: I agree with that decision. It will be very hard to heal that foot at this point. The patient is being seen in consultation with Dr. Matthews who will be doing the below-knee amputation (BKA). The patient is a good candidate for below-knee amputation and a prosthesis. She probably will benefit from acute rehabilitation. Discussed with her better compliance with diabetes and diet as she is at very high risk of end-stage renal disease and dialysis requirement and more episodes of osteomyelitis and risk for amputation. The patient has promised she will be better compliant with her diet.
[2018-06-22] MEDS ORDERED: LIDOCAINE 1% MDV 20ML VIAL ONE (21:49)
[2018-06-22] MEDS ORDERED: dexameTHASONE 10 MG/1 ML VIAL PRES.FREE (J1100) ONE (21:49)
[2018-06-22 22:50] VITALS: BP 136/66
[2018-06-22] MEDS ORDERED: fentaNYL 100 MCG/2 ML INJECTION (J3010) IV PRN (23:30)
[2018-06-22] MEDS ORDERED: MIDAZOLAM INJ 2 MG/2 ML VIAL (J2250) IV SCH (23:30)
[2018-06-22] MEDS: ATORVASTATIN 20 MG TAB PO SCH (23:44)
[2018-06-22] MEDS: CYCLOBENZAPRINE 10 MG TAB PO SCH (23:45)
--- NOTE | 2018-06-23 02:10 | IPNPDOC ---
Subjective Date Seen The patient was seen on 06/22/18. Subjective Chief Complaint/HPI Patient was seen the afternoon of 06/22, prior to scheduled BKA. She reported feeling fine except for anxiety about her upcoming procedure. Specifically, she voiced concerns about postop pain control. Constitutional: Reports: Fatigue; Denies: Chills Cardiovascular: Denies: Chest Pain Gastrointestinal: Denies: Nausea, Vomiting, Abdominal Pain, Diarrhea, Constipation Neurological: Reports: Numbness (left foot) Psych: Reports: Anxiety Objective Physical Examination General Exam: Positive: Alert, Cooperative (laying in bed when I entered the room), No Acute Distress Eye Exam: Positive: Sclera icteric ENT Exam: Positive: Mucous membr. moist/pink Chest Exam: Positive: Clear to auscultation, Normal air movement Heart Exam: Positive: Rate Normal, Regular Rhythm, Normal S1, Normal S2; Negative: Murmurs, Rubs Abdomen Exam: Positive: Normal bowel sounds, Soft; Negative: Tenderness Extremity Exam: Positive: Other (her left foot was wrapped today. Bandage is clean dry and intact today) Psych Exam: Positive: Mental status NL, Mood NL, Oriented x 3 A-FIB/CHADSVASC A-FIB History Current/History of A-Fib/PAF?: No Current Oral Anticoagulant The: No Assessment /Plan Problems (1) Osteomyelitis of foot, acute Status: Acute Problem Text: 06/22 Plan BKA later today. Though anxious, patient remains consistent in her desire for amputation. 06/21 She is on cefazolin IV twice daily. Dr. Dooley will do a telemedicine consultation on Thursday for advice regarding her wounds and the possibility of hyperbaric oxygen therapy. However this may be unnecessary if she is truly pursuing amputation. I'm not going to cancel the consultation yet because of like her to think about this overnight. I will communicate with Dr. Matthews regarding her wishes; I will modify the consultation request to him. (2) Left calcaneal fracture Status: Resolved Problem Specific Plan: Consult Specialist Problem Text: 06/22 -- plan amputation She will need to be non-weight bearing on the L foot. P/T is being asked to evaluate her for a knee scooter vs. wheelchair. This may be irrelevant if she chooses amputation. (3) Peripheral vascular disease of extremity Status: Chronic Problem Specific Plan: Consult Specialist Problem Text: She has a known history of peripheral vascular disease. I have asked Dr. Matthews to evaluate her left lower extremity to make sure that the blood flow to that area is adequate for: delivery of antibiotic to the area of osteomyelitis, healing from a possible amputation, or optimizing hyperbaric oxygen treatment. (4) DM2 (diabetes mellitus, type 2) Status: Chronic Problem Text: Her blood glucose levels very, but are not tremendously high while she is here in the hospital. Continue RISS. Continue Levemir 30 units sq bid (5) CKD (chronic kidney disease), stage IV Status: Chronic Problem Specific Plan: Consult Specialist Problem Text: Nephro assisting in management; appreciate their help. They have asked Dr. Matthews to assess her for an AV graft. (6) Diastolic CHF Status: Chronic Problem Text: She is currently receiving spironolactone and torsemide. Nephrology is assisting with the management of these. (7) Hyperlipidemia Status: Chronic Problem Text: Continue home medications. (8) CAD (coronary artery disease) Status: Chronic Response to Treatment: Stable (9) Physical deconditioning Status: Chronic Response to Treatment: Stable Problem Text: PT consulted Plan/VTE VTE Prophylaxis Ordered?: Yes (Heparin ) VS, I&O, 24H, Fishbone Vital Signs/I&O Vital Signs Date Time Temp Pulse Resp B/P (MAP) Pulse Ox O2 Delivery O2 Flow Rate FiO2 06/22/18 23:45 79 136/66 06/22/18 22:50 97.8 19 96 2.0 I&O- Last 24 Hours up to 6 AM 06/23/18 06:00 Intake Total 1910 ml Output Total 450 ml Balance 1460 ml Laboratory Data 24H LABS Laboratory Tests 2 06/22/18 06:53: Nucleated Red Blood Cells % (auto) 0.0, Anion Gap 6L, Glomerular Filtration Rate 17.9L, Blood Urea Nitrogen 58H, Creatinine 2.82H, Sodium Level 134L, Potassium Level 4.3, Chloride Level 99, Carbon Dioxide Level 29, Calcium Level 8.6L, C- Reactive Protein, Quantitative 5.55H 06/22/18 12:09: Bedside Glucose (Misc Panel) 281H 06/22/18 16:34: Bedside Glucose (Misc Panel) 173H 06/22/18 19:42: Bedside Glucose (Misc Panel) 137H 06/22/18 22:46: Bedside Glucose (Misc Panel) 159H CBC/BMP Laboratory Tests 06/22/18 06:53 Red Blood Count 3.29 L, Mean Corpuscular Volume 94.8, Mean Corpuscular Hemoglobin 28.9, Mean Corpuscular Hemoglobin Concent 30.4 L, Red Cell Distribution Width 15.3 H, Calcium Level 8.6 L Microbiology Microbiology 06/16/18 Blood Culture - Final, Complete NO GROWTH AFTER 5 DAYS 06/16/18 Gram Stain - Final, Complete 06/16/18 Wound Culture - Final, Complete Staphylococcus Aureus MOE TOLENTINO DO June 23, 2018 02:10
[2018-06-23] MEDS: HEPARIN SOD (PORCINE) 5000 UNITS/ML VIAL SC SCH ×3 (05:01→22:35)
[2018-06-23] MEDS: MORPHINE 4 MG/ML 1ML VIAL/SYRINGE (J2270) IV PRN ×3 (05:01→12:57)
[2018-06-23 06:00] VITALS: BP 140/68
[2018-06-23] MEDS ORDERED: MORPHINE 4 MG/ML 1ML VIAL/SYRINGE (J2270) IV ONE (06:00)
[2018-06-23] MEDS: traMADol 50 MG TAB PO PRN ×2 (08:12→15:47)
[2018-06-23 08:52] LABS: HEMATOCRIT 28.8 % (36.0-47.0); HEMOGLOBIN 8.9 g/dl (12.0-15.5); MEAN CORPUSCULAR HGB CONC 30.9 g/dl (32.0-36.5); MEAN CORPUSCULAR VOLUME 93.8 fl (80.0-96.0); PLATELET COUNT, AUTOMATED 230 10^3/uL (150-450); RED BLOOD COUNT 3.07 10^6/uL (4.00-5.40); WHITE BLOOD COUNT 11.3 10^3/uL (4.0-10.0)
[2018-06-23] MEDS: SILVER SULFADIAZINE 1% CR 50 GM JAR TOP SCH ×2 (09:00→20:20)
[2018-06-23] MEDS ORDERED: MIDAZOLAM INJ 2 MG/2 ML VIAL (J2250) ONE (09:04)
[2018-06-23] MEDS ORDERED: ONDANSETRON 4MG/2ML VIAL (J2405) ONE (09:04)
[2018-06-23] MEDS ORDERED: fentaNYL 100 MCG/2 ML INJECTION (J3010) ONE (09:04)
[2018-06-23] MEDS ORDERED: LIDOCAINE 2% INJ 100 MG/5 ML SDV (FOR ANES.) ONE (09:04)
[2018-06-23] MEDS ORDERED: PROPOFOL 200 MG/20 ML VIAL ONE (09:04)
[2018-06-23] MEDS: PANTOPRAZOLE 40MG TAB (PROTONIX) PO SCH (09:10)
[2018-06-23] MEDS: GABAPENTIN 300 MG CAP PO SCH ×2 (09:10→20:18)
[2018-06-23] MEDS: CARVedilol 12.5 MG TAB PO SCH ×2 (09:10→20:18)
[2018-06-23] MEDS: ISOSORBIDE MON. (IMDUR) 30 MG XR TAB PO SCH (09:10)
[2018-06-23] MEDS: MAGNESIUM OXIDE 400 MG TAB (MAG-OX) PO SCH (09:10)
[2018-06-23] MEDS: LEVEMIR (INSULIN DETEMIR) 1 UNITS/0.01ML SC SCH ×2 (09:11→20:19)
[2018-06-23] MEDS: PARoxetine 20 MG TAB PO SCH (09:11)
[2018-06-23] MEDS: FERROUS SULFATE 325MG TAB PO SCH ×2 (09:11→20:16)
[2018-06-23] MEDS: HumaLOG INSULIN (NovoLOG) PER UNIT SC SCH ×4 (09:13→20:20)
[2018-06-23] MEDS: PERCOCET 5MG/325MG TAB PO PRN ×3 (09:16→18:15)
[2018-06-23] MEDS: ceFAZolin SOD 1 GM in D5W MINI-BAG PLUS 50 ML IV SCH ×2 (09:17→22:35)
[2018-06-23 09:23] LABS: C REACTIVE PROTEIN QUANTITATIV 6.4 MG/DL (0.00-0.30); CALCIUM LEVEL 8.8 MG/DL (8.8-10.2); CREATININE FOR GFR 3.01 MG/DL (0.55-1.30); GLOMERULAR FILTRATION RATE 16.6 (>45); POTASSIUM SERUM 5.3 MEQ/L (3.5-5.1)
[2018-06-23] MEDS ORDERED: NS 1,000 ML IV ONE (10:30)
[2018-06-23] MEDS ORDERED: HYDROmorphone 2 MG TAB PO ONE (11:00)
[2018-06-23] MEDS ORDERED: NS 1,000 ML IV SCH (11:30)
--- NOTE | 2018-06-23 11:39 | IPNPDOC ---
Subjective Date Seen The patient was seen on 06/23/18. Subjective Chief Complaint/HPI Patient lying in bed as I entered the room. She is s/p left BKA. She is complaining of leg pain and is requesting Dilaudid Constitutional: Denies: Chills, Fever Pulmonary: Denies: Dyspnea, Cough Gastrointestinal: Denies: Nausea, Vomiting, Abdominal Pain Musculoskeletal: Reports: Other Symptoms (Pain left lower extremity s/p amputation ) Psych: Reports: Mood Normal Objective Physical Examination General Exam: Positive: Alert, Cooperative (laying in bed when I entered the room), No Acute Distress Eye Exam: Positive: Sclera icteric ENT Exam: Positive: Mucous membr. moist/pink Chest Exam: Positive: Clear to auscultation, Normal air movement Heart Exam: Positive: Rate Normal, Regular Rhythm, Normal S1, Normal S2; Negative: Murmurs, Rubs Abdomen Exam: Positive: Normal bowel sounds, Soft; Negative: Tenderness Extremity Exam: Positive: Other (her left stump was wrapped today. Bandage is clean dry and intact today) Psych Exam: Positive: Mental status NL, Mood NL, Oriented x 3 A-FIB/CHADSVASC A-FIB History Current/History of A-Fib/PAF?: No Assessment /Plan Assessment 06/23: Patient appeared much more comfortable when I saw her. Discussed the case with Dr. Matthews. Arranged for Varinder monitoring. Encouraged to discuss possible MACEY testing with PCP when discharged. -- CDT Problems (1) Osteomyelitis of foot, acute Status: Acute Response to Treatment: Stable Problem Text: 06/23/18: S/P BKA. Patient reports pain in left lower extremity and states nothing is working for her pain. I recommended increasing Morphine to q 2 hours prn and she states Morphine doesn't help the pain and wants Dilaudid. I will discuss with attending 06/22 Plan BKA later today. Though anxious, patient remains consistent in her desire for amputation. 06/21 She is on cefazolin IV twice daily. Dr. Dooley will do a telemedicine consultation on Thursday for advice regarding her wounds and the possibility of hyperbaric oxygen therapy. However this may be unnecessary if she is truly pursuing amputation. I'm not going to cancel the consultation yet because of like her to think about this overnight. I will communicate with Dr. Matthews regarding her wishes; I will modify the consultation request to him. (2) CKD (chronic kidney disease), stage IV Status: Chronic Problem Specific Plan: Consult Specialist Problem Text: 06/23/18: Nephrology following. Cre 3.01 today, K+ 5.3. Plan is for dialysis Nephro assisting in management; appreciate their help. They have asked Dr. Matthews to assess her for an AV graft. (3) Left calcaneal fracture Status: Resolved Problem Specific Plan: Consult Specialist Problem Text: 06/22 -- plan amputation She will need to be non-weight bearing on the L foot. P/T is being asked to evaluate her for a knee scooter vs. wheelchair. This may be irrelevant if she chooses amputation. (4) Peripheral vascular disease of extremity Status: Chronic Problem Specific Plan: Consult Specialist Problem Text: She has a known history of peripheral vascular disease. I have asked Dr. Matthews to evaluate her left lower extremity to make sure that the blood flow to that area is adequate for: delivery of antibiotic to the area of osteomyelitis, healing from a possible amputation, or optimizing hyperbaric oxygen treatment. (5) DM2 (diabetes mellitus, type 2) Status: Chronic Problem Text: Her blood glucose levels very, but are not tremendously high while she is here in the hospital. Continue RISS. Continue Levemir 30 units sq bid (6) Diastolic CHF Status: Chronic Problem Text: She is currently receiving spironolactone and torsemide. Nephrology is assisting with the management of these. (7) Hyperlipidemia Status: Chronic Problem Text: Continue home medications. (8) CAD (coronary artery disease) Status: Chronic Response to Treatment: Stable (9) Physical deconditioning Status: Chronic Response to Treatment: Stable Problem Text: PT consulted Plan/VTE VTE Prophylaxis Ordered?: Yes (Heparin ) VS, I&O, 24H, Fishbone Vital Signs/I&O Vital Signs Date Time Temp Pulse Resp B/P (MAP) Pulse Ox O2 Delivery O2 Flow Rate FiO2 06/23/18 10:49 18 06/23/18 09:10 140/68 06/23/18 09:10 86 06/23/18 06:00 98.0 97 2.0 I&O- Last 24 Hours up to 6 AM 06/23/18 05:59 Intake Total 2030 ml Output Total 450 ml Balance 1580 ml Laboratory Data 24H LABS Laboratory Tests 2 06/22/18 12:09: Bedside Glucose (Misc Panel) 281H 06/22/18 16:34: Bedside Glucose (Misc Panel) 173H 06/22/18 19:42: Bedside Glucose (Misc Panel) 137H 06/22/18 22:46: Bedside Glucose (Misc Panel) 159H 06/23/18 08:39: Nucleated Red Blood Cells % (auto) 0.0, Anion Gap 9, Glomerular Filtration Rate 16.6L, Blood Urea Nitrogen 60H, Creatinine 3.01H, Sodium Level 134L, Potassium Level 5.3H, Chloride Level 98, Carbon Dioxide Level 27, Calcium Level 8.8, C- Reactive Protein, Quantitative 6.40H 06/23/18 08:44: Bedside Glucose (Misc Panel) 226H CBC/BMP Laboratory Tests 06/23/18 08:39 Red Blood Count 3.07 L, Mean Corpuscular Volume 93.8, Mean Corpuscular Hemoglobin 29.0, Mean Corpuscular Hemoglobin Concent 30.9 L, Red Cell Distribution Width 14.6 H, Calcium Level 8.8 Microbiology Microbiology 06/16/18 Blood Culture - Final, Complete NO GROWTH AFTER 5 DAYS 06/16/18 Gram Stain - Final, Complete 06/16/18 Wound Culture - Final, Complete Staphylococcus Aureus MAURILIO SOARES June 23, 2018 11:39 MOE TOLENTINO DO June 24, 2018 01:30
--- NOTE | 2018-06-23 12:39 | IPNPDOC ---
Text Note Date of Service The patient was seen on 06/23/18. NOTE Nephrology Service: Subjective: Patient seen and examined at bedside. Is status post L BKA post-operative day #[address] Matthews. Creatinine has worsened today and is 3.01. Seems patient still received 1 dose of her diuretics yesterday morning: spironolactone and torsemide. They were discontinued yesterday. Yet, despite that, patient reported being very thirsty and dry. She also reported 10/10 pain LLE. Was given morphine, percocet. Is also on tramadol, gabapentin, tylenol. Despite this, pain still uncontrolled. She appears very uncomfortable secondary to the pain. Reports she did make some urine yesterday. Feels very dry though. Is normally on 1800 mL fluid restriction and consistent carbohydrate diet. Patient denies fevers, chills, nausea, vomiting, abdominal pain, diarrhea, constipation, weakness in extremities, dizziness, headache. Objective: Vitals: T: 98.0 BP: 140/68 RR: 18 P: 86 O2 Saturation: 97% room air Weight: 128.2 kg yesterday and 125.4 kg today Intake: 1910 ml Output: 450 ml Balance: (+)1460 ml Urine output: 0.15 ml/kg/hr General: AAO x 3. Lying in bed, morbidly obese. NAD. Cooperative. Appears uncomfortable and fatigued. HEENT: Head: normocephalic, atraumatic. Eyes: sclera are nonicteric. Oral Cavity: mucous membranes are not moist, dry tongue. Neck: Supple. No JVD. Respiratory: Clear to auscultation bilaterally with no wheezes, rales, or rhonchi. Cardiovascular: (+)S1S2, regular rate and rhythm, with no murmurs, rubs or gallops. Abdomen: Soft, obese, nontender, nondistended, no hepatosplenomegaly appreciated. Normoactive bowel sounds. Extremities: LLE wrapped with bandage/dressings. Trace pitting edema of RLE. Musculoskeletal: (+)L below the knee amputation. Neurological: No focal neurologic deficits appreciated bilaterally. Laboratory data: CBC is remarkable for WBC 11.3 (H), RBC 3.07 (L), Hgb 8.9 (L), Hct 28.8, MCV 93.8, RDW 14.6 (H), MCHC 30.9 (L), platelets 230. BMP is remarkable for Na 134 (L), K 5.3 (H), CO2 27, BUN 60 (H), Cr 3.01 (H), GFR 16.6 (L), glucose 239 (H), Calcium 8.8, CRP 6.40 (H). Microbiology: Blood Cx showed no growth after 5 days. Cx from L ankle: Gram stain: No cells and no organisms seen Wound Cx: few Staph Aureus (MSSA) Imaging: No new imaging today. Current Inpatient Medications: Cephazolin 1 gm IV q12h Aranesp 100 mcg Fr@09 SC Ferrous Sulfate 325 mg PO BID No other change in the medications today as compared with yesterday. Percocet 5/325 mg PO q4h PRN Morphine Sulfate 2 mg q4h IV PRN Diphenhydramine 25 mg PO q6h PRN itching Assessment/Plan: 1. Below the Knee Amputation of LLE Post-Operative Day #1: Pain uncontrolled at 10/10 despite morphine, tylenol, gabapentin, percocet, tramadol. Have given one dose of 2 mg dilaudid PO once. Will consider beginning patient on [employer]. IV dilaudid does not seem to be available at our facility. However, pain is poorly controlled at this point. 2. Acute renal failure superimposed on CKD Stage IV: Renal function is declining after surgery. Creatinine has gone from 2.82 to 3.01 and GFR has declined from 17.9 to 16.6. Discontinued diuretics torsemide and spironolactone yesterday due to bump in creatinine yesterday. However, one dose was still administered yesterday morning. Thus, patient is likely dehydrated postsurgically and has decline in kidney function today. Patient will likely eventually need AV graft as she had fistulas that failed in the past as per Dr. Yanez. Will continue to monitor renal function. Have given 1 liter NS bolus and will give 1 more liter NS @ 100 mLs/hr. 3. Hyponatremia: Sodium is mildly low today at 134. Continue to monitor BMP. 4. Hyperkalemia: K was 5.3 today. Likely secondary to postsurgical BETTY and deh ydration. Will continue to monitor. Giving 2 liters NS right now. 4. Lower extremity edema: Had L BKA but has trace RLE edema. Stable. Monitor clinically for now as diuretics have been discontinued. 5. Anemia in CKD: Hgb decreased from 9.5 to 8.9 today likely due to postsurgical fluid/blood losses. Continue to monitor CBC. Continue aranesp 100 mcg SC daily and ferrous sulfate 325 mg PO BID. 6. Osteomyelitis of L foot/L Calcaneal Fracture: Status-post L BKA post-op day #1. Will still continue IV antibiotic therapy until completion. Currently on cephazolin 1 gm IV q12h. 7. Diabetes mellitus type 2: Controlled and fingersticks stable. Continue current regimen with levemir 30 units SC BID, humalog ISS at AC and QHS. 8. Peripheral Vascular Disease: Appreciate Vascular Surgery input. Continue with recommendations of Vascular Surgery for PVD. My preceptor for this patient encounter was Dr. Deepika Yanez, and was physically present in the building during the encounter and was fully available. As needed, all aspects of the patient interview, examination, medical decision making process, and medical care plan development were reviewed and approved by the preceptor. Preceptor is aware and concurs with the plan as stated in the body of this note and will attest to such by his/her cosignature. A-FIB/CHADSVASC A-FIB History Current/History of A-Fib/PAF?: No Current Oral Anticoagulant The: No VS,Fishbone, I+O VS, Fishbone, I+O Laboratory Tests 06/23/18 08:39 Red Blood Count 3.07 L, Mean Corpuscular Volume 93.8, Mean Corpuscular Hemoglobin 29.0, Mean Corpuscular Hemoglobin Concent 30.9 L, Red Cell Distribution Width 14.6 H, Calcium Level 8.8 Vital Signs Date Time Temp Pulse Resp B/P (MAP) Pulse Ox O2 Delivery O2 Flow Rate FiO2 06/23/18 11:19 18 06/23/18 09:10 140/68 06/23/18 09:10 86 06/23/18 06:00 98.0 97 2.0 I&O- Last 24 Hours up to 6 AM 06/23/18 06:00 Intake Total 2270 ml Output Total 650 ml Balance 1620 ml Attending Note Attending Note A: POD#1 s/p Lt BKA BETTY on CKD4 Dehydration Intractable pain Lt BKA stump DM type 2 P: NS Bolus 1L followed by 100ml/hr for 1L.Diuretics held yesterday. Dilaudid 2 mg PO x 1 dose encourage oral hydration as well. ANDREW LANGE DO June 23, 2018 12:39 DEEPIKA YANEZ MD June 23, 2018 22:07
--- NOTE | 2018-06-23 12:47 | IPNPDOC ---
Date Seen The patient was seen on 06/23/18. Progress Note Vascular Surgery Dr Matthews HPI: 67-year-old lady with a past medical history of diabetes, on insulin, hypertension, stage IV chronic kidney disease, follows with Dr. Dong, diabetic neuropathy, hyperlipidemia, who was admitted 06/16/18 with left lateral foot wound and calcaneal fracture. Patient had been seen by podiatry and was sent to the emergency room for further evaluation and treatment related to worsening of her foot wound. Vascular Surgery is consulted to assist with LLE foot wound. Patient is status post left BKA 06/22/[address] Matthews. This morning the patient is reporting pain in her left lower extremity, the patient states she has not taken anything for pain since last evening. She does have Percocet/IV Morphine ordered and nursing is currently in the process of bella nging her dose. Denies any fevers, chills, weakness, fatigue, Headache, Chest Pain, Shortness of breath, cough, palpitations, abdominal pain, N/V/D or changes in bowel or bladder habits. PAST MEDICAL HISTORY: As mentioned above PAST SURGICAL HISTORY: She has had right 2nd, 4th and 5th toe amputations, left 3rd, 4th, 5th toe amputations plus left ankle sx, a hysterectomy, cholecystectomy, partial appendectomy. PE: GEN: 67yoF, appears stated age. Well-nourished, well developed. No acute distress. Alert and oriented x 3. Teary. HEENT: Normocephalic, atraumatic. Conjunctiva without injection. Moist mucous membranes. Dentition fair. P CHEST: Regular rate and rhythm, +S1, +S2 LUNGS: Clear to auscultation bilaterally. No wheezes, rales, or rhonchi. Breathing appears symmetric and easy. Patient is speaking in full sentences. No accessory muscle use. ABD: Round, soft, non-tender, non-distended. +Bowel sounds throughout. No rebound or guarding. No costovertebral angle tenderness. EXT: Status post left BKA, bandage intact. SKIN: [place], dry, warm. No rashes. NEURO: Alert and oriented x 3. Cranial nerves III-XII are intact. No focal deficits appreciated. Left foot MRI 1. Lateral soft tissue edema. There is adjacent edema within the bone marrow of the base of the fifth metatarsal on T2 fat-suppressed and T1-weighted images consistent with acute osteomyelitis. A smaller focus of edema is present within the distal and lateral cuboid also suspicious for acute osteomyelitis. 2. There is a transverse fracture across the calcaneus. Electronically signed by: Prem Valverde On 06/16/2018 21:26:12 PM A&P: 67-year-old lady with a past medical history of diabetes, on insulin, hypertension, stage IV chronic kidney disease, follows with Dr. Dong, diabetic neuropathy, hyperlipidemia, who was admitted 06/16/18 with left lateral foot wound and calcaneal fracture. Patient had been seen by podiatry and was sent to the emergency room for further evaluation and treatment related to worsening of her foot wound. Vascular Surgery is consulted to assist with LLE foot wound. Chronic Left foot wound /Osteomyelitis of L foot, growing MSSA from wound site. Status post left BKA as per Dr. Matthews 06/22/18. POD 1 Patient is afebrile. WBC 11.3. CRP 6.4 Currently on cephazolin [address] q[address] Rodríguez, ID following. Pain control with Percocet 1 tablet every 4 hours as needed. IV morphine as needed. Patient remains on gabapentin 600 mg at bedtime. Angiogram completed last admission. No intervention required. Acute renal failure superimposed on CKD Stage IV Dr. Yanez has requested vascular surgery to evaluate for AV fistula. IVF 100cc/hr Anemia in CKD: Hgb stable at 8.9 aranesp/ferrous sulfate Diabetes mellitus type 2 Mgmt as per primary team. DVT prophylaxis. Subcutaneous heparin. A-FIB/CHADSVASC A-FIB History Current/History of A-Fib/PAF?: No VS, I&O, 24H, Fishbone Vital Signs/I&O Vital Signs Date Time Temp Pulse Resp B/P (MAP) Pulse Ox O2 Delivery O2 Flow Rate FiO2 06/23/18 11:19 18 06/23/18 09:10 140/68 06/23/18 09:10 86 06/23/18 06:00 98.0 97 2.0 I&O- Last 24 Hours up to 6 AM 06/23/18 06:00 Intake Total 2270 ml Output Total 650 ml Balance 1620 ml Laboratory Data 24H LABS Laboratory Tests 2 06/22/18 16:34: Bedside Glucose (Misc Panel) 173H 06/22/18 19:42: Bedside Glucose (Misc Panel) 137H 06/22/18 22:46: Bedside Glucose (Misc Panel) 159H 06/23/18 08:39: Nucleated Red Blood Cells % (auto) 0.0, Anion Gap 9, Glomerular Filtration Rate 16.6L, Blood Urea Nitrogen 60H, Creatinine 3.01H, Sodium Level 134L, Potassium Level 5.3H, Chloride Level 98, Carbon Dioxide Level 27, Calcium Level 8.8, C- Reactive Protein, Quantitative 6.40H 06/23/18 08:44: Bedside Glucose (Misc Panel) 226H 06/23/18 11:40: Bedside Glucose (Misc Panel) 250H CBC/BMP Laboratory Tests 06/23/18 08:39 Red Blood Count 3.07 L, Mean Corpuscular Volume 93.8, Mean Corpuscular Hemoglobin 29.0, Mean Corpuscular Hemoglobin Concent 30.9 L, Red Cell Distribution Width 14.6 H, Calcium Level 8.8 Microbiology Microbiology 06/16/18 Blood Culture - Final, Complete NO GROWTH AFTER 5 DAYS 06/16/18 Gram Stain - Final, Complete 06/16/18 Wound Culture - Final, Complete Staphylococcus Aureus Clari Mike June 23, 2018 12:47
[2018-06-23 14:00] VITALS: BP 141/61
[2018-06-23] MEDS: HYDROmorphone 2 MG TAB PO PRN (18:16)
[2018-06-23] MEDS: CYCLOBENZAPRINE 10 MG TAB PO SCH (20:17)
[2018-06-23] MEDS: diphenhydrAMINE 25 MG CAP PO PRN (20:18)
[2018-06-23] MEDS: ATORVASTATIN 20 MG TAB PO SCH (20:18)
[2018-06-23 22:00] VITALS: BP 131/82
[2018-06-24 06:00] VITALS: BP 137/78
[2018-06-24] MEDS: HEPARIN SOD (PORCINE) 5000 UNITS/ML VIAL SC SCH ×3 (06:00→21:01)
[2018-06-24] MEDS: PERCOCET 5MG/325MG TAB PO PRN (06:02)
[2018-06-24 07:07] LABS: C REACTIVE PROTEIN QUANTITATIV 5.11 MG/DL (0.00-0.30)
[2018-06-24] MEDS: HumaLOG INSULIN (NovoLOG) PER UNIT SC SCH ×4 (08:48→20:49)
[2018-06-24 09:00] VITALS: BP 150/67
--- NOTE | 2018-06-24 09:21 | IPNPDOC ---
Date Seen The patient was seen on 06/24/18. Progress Note Vascular Surgery Dr Matthews HPI: 67-year-old lady with a past medical history of diabetes, on insulin, hypertension, stage IV chronic kidney disease, follows with Dr. Dong, diabetic neuropathy, hyperlipidemia, who was admitted 06/16/18 with left lateral foot wound and calcaneal fracture. Patient had been seen by podiatry and was sent to the emergency room for further evaluation and treatment related to worsening of her foot wound. Vascular Surgery was consulted to assist with LLE foot wound. Patient is status post left BKA 06/22/[address] Matthews. This morning the patient reports pain is controlled. Denies any fevers, chills, weakness, fatigue, Headache, Chest Pain, Shortness of breath, cough, palpitations, abdominal pain, N/V/D or changes in bowel or bladder habits. PAST MEDICAL HISTORY: As mentioned above PAST SURGICAL HISTORY: She has had right 2nd, 4th and 5th toe amputations, left 3rd, 4th, 5th toe amputations plus left ankle sx, a hysterectomy, cholecystectomy, partial appendectomy. PE: GEN: 67yoF, appears stated age. Alert and oriented x 3. Teary. HEENT: Normocephalic, atraumatic. Moist mucous membranes. Dentition fair. CHEST: Regular rate and rhythm, +S1, +S2 LUNGS: Clear to auscultation bilaterally. No wheezes, rales, or rhonchi. Radha athing appears symmetric and easy. ABD: Round, soft, non-tender, non-distended. +Bowel sounds throughout. No rebound or guarding. EXT: Status post left BKA, bandage removed. Wound with minimal bloody drainage. Sandra intact. No erythema. Skin is pink in color. Dry dressing applied. SKIN: [employer], dry, warm. No rashes. NEURO: Alert and oriented x 3. Cranial nerves III-XII are intact. No focal deficits appreciated. Left foot MRI 1. Lateral soft tissue edema. There is adjacent edema within the bone marrow of the base of the fifth metatarsal on T2 fat-suppressed and T1-weighted images consistent with acute osteomyelitis. A smaller focus of edema is present within the distal and lateral cuboid also suspicious for acute osteomyelitis. 2. There is a transverse fracture across the calcaneus. Electronically signed by: Prem Valverde On 06/16/2018 21:26:12 PM A&P: 67-year-old lady with a past medical history of diabetes, on insulin, hypertension, stage IV chronic kidney disease, follows with Dr. Dong, diabetic neuropathy, hyperlipidemia, who was admitted 06/16/18 with left lateral foot wound and calcaneal fracture. Patient had been seen by podiatry and was sent to the emergency room for further evaluation and treatment related to worsening of her foot wound. Vascular Surgery is consulted to assist with LLE foot wound. Chronic Left foot wound /Osteomyelitis of L foot, growing MSSA from wound site. Status post left BKA as per Dr. Matthews 06/22/18. POD 2 Patient is afebrile. Labs this Am pending. Currently on cephazolin [address]m IV q12h. Dr Rodríguez, ID following. Pain control with Dilaudid 2 mg Q8 prn. Percocet/Morphine/tramadol d/cd. Patient remains on gabapentin 300mg AM/ 600 mg at bedtime. Angiogram completed last admission. No intervention required. ARU screen pending. [facility] planning to bring ampu shield and discuss prosthetic info. Acute renal failure superimposed on CKD Stage IV Dr. Yanez has requested vascular surgery to evaluate for AV fistula. Vein mapping completed 05/24/18. AVF creaation possibly next week as per Dr Matthews. Anemia in CKD: Labs pending. aranesp/ferrous sulfate Diabetes mellitus type 2 Mgmt as per primary team. DVT prophylaxis. Subcutaneous heparin. A-FIB/CHADSVASC A-FIB History Current/History of A-Fib/PAF?: No VS, I&O, [facility], [facility] Vital Signs/I&O Vital Signs Date Time Temp Pulse Resp B/P (MAP) Pulse Ox O2 Delivery O2 Flow Rate FiO2 06/24/18 06:34 16 06/24/18 06:00 98.0 87 137/78 (97) 98 2.0 I&O- Last 24 Hours up to 6 AM 06/24/18 06:00 Intake Total 720 ml Output Total 2300 ml Balance -1580 ml Laboratory Data 24H LABS Laboratory Tests 2 06/23/18 11:40: Bedside Glucose (Misc Panel) 250H 06/23/18 17:12: Bedside Glucose (Misc Panel) 241H 06/23/18 20:09: Bedside Glucose (Misc Panel) 265H 06/24/18 06:25: C-Reactive Protein, Quantitative 5.11H 06/24/18 07:48: Bedside Glucose (Misc Panel) 274H Microbiology Microbiology 06/16/18 Blood Culture - Final, Complete NO GROWTH AFTER 5 DAYS 06/16/18 Gram Stain - Final, Complete 06/16/18 Wound Culture - Final, Complete Staphylococcus Aureus Clari Mike June 24, 2018 09:21
[2018-06-24 10:10] LABS: BASO % 0.2 % (0.0-1.0); HEMATOCRIT 25.6 % (36.0-47.0); HEMOGLOBIN 7.6 g/dl (12.0-15.5); LYMPH # 0.9 10^3/uL (1.5-4.5); LYMPH % 7.3 % (24.0-44.0); MEAN CORPUSCULAR HEMOGLOBIN 28.9 pg (27.0-33.0); MEAN CORPUSCULAR HGB CONC 29.7 g/dl (32.0-36.5); MEAN CORPUSCULAR VOLUME 97.3 fl (80.0-96.0); MONO # 0.9 10^3/uL (0.0-0.8); MONO % 6.9 % (0.0-5.0); NEUTROPHILS # 10.5 10^3/uL (1.8-7.7); NEUTROPHILS % 84.8 % (36.0-66.0); PLATELET COUNT, AUTOMATED 233 10^3/uL (150-450); RED BLOOD COUNT 2.63 10^6/uL (4.00-5.40); WHITE BLOOD COUNT 12.4 10^3/uL (4.0-10.0)
[2018-06-24] MEDS: HYDROmorphone 2 MG TAB PO PRN ×3 (10:12→22:31)
[2018-06-24 10:32] LABS: ALBUMIN 2.3 GM/DL (3.2-5.2); CALCIUM LEVEL 8.1 MG/DL (8.8-10.2); CREATININE FOR GFR 3.08 MG/DL (0.55-1.30); GLOMERULAR FILTRATION RATE 16.2 (>45); PHOSPHORUS LEVEL 4.5 MG/DL (2.5-4.9); POTASSIUM SERUM 5.1 MEQ/L (3.5-5.1)
[2018-06-24] MEDS: ISOSORBIDE MON. (IMDUR) 30 MG XR TAB PO SCH (11:32)
[2018-06-24] MEDS: MAGNESIUM OXIDE 400 MG TAB (MAG-OX) PO SCH (11:32)
[2018-06-24] MEDS: FERROUS SULFATE 325MG TAB PO SCH ×2 (11:33→21:03)
[2018-06-24] MEDS: PARoxetine 20 MG TAB PO SCH (11:33)
[2018-06-24] MEDS: PANTOPRAZOLE 40MG TAB (PROTONIX) PO SCH (11:33)
[2018-06-24] MEDS: GABAPENTIN 300 MG CAP PO SCH ×2 (11:33→21:03)
[2018-06-24] MEDS: CARVedilol 12.5 MG TAB PO SCH ×2 (11:34→21:02)
[2018-06-24] MEDS: LEVEMIR (INSULIN DETEMIR) 1 UNITS/0.01ML SC SCH ×2 (11:34→21:02)
[2018-06-24] MEDS: ceFAZolin SOD 1 GM in D5W MINI-BAG PLUS 50 ML IV SCH ×2 (11:35→21:03)
--- NOTE | 2018-06-24 11:46 | IPNPDOC ---
Text Note Date of Service The patient was seen on 06/24/18. NOTE Nephrology Service: Subjective: Patient seen and examined at bedside. Is status post L BKA post-operative day #[address] Matthews. Creatinine is stable at 3.08 today. Not on any diuretics anymore. Were d/ce'd two days ago. Patient states she is feeling better and more well hydrated. She also reports 9/10 pain LLE BKA stump. States she just got dilaudid about half an hour prior. Usually, when medication starts to become therapeutic, her pain level goes down to 4-5/10 and is controlled/bearable. Is also on morphine, percocet, gabapentin, tylenol. She appears much more comfortable today than yesterday. Has made 1400 mL urine yesterday and had a (-) 560 urine output balance yesterday. Is normally on 1800 mL fluid restriction and consistent carbohydrate diet. Patient denies headache, blurred vision, dizziness, fevers, chills, nausea, vomiting, abdominal pain, diarrhea, constipation, weakness in extremities, dizziness, headache. Objective: Vitals: T: 97.6 BP: 150/67 RR: 14 P: 80 O2 Saturation: 100% on 2 liters nasal cannula Weight: 125.4 kg yesterday and 126.8 kg today Intake: 840 ml Output: 1400 ml Balance: (-)560 ml Urine output: 0.47 ml/kg/hr General: AAO x 3. Lying comfortably in bed, morbidly obese. NAD. Cooperative. More alert today. HEENT: Head: normocephalic, atraumatic. Eyes: sclera are nonicteric. Oral Cavity: mucous membranes are now moist with a moist tongue today. Neck: Supple. No JVD. Respiratory: Clear to auscultation bilaterally with no wheezes, rales, or rhonchi. Cardiovascular: (+)S1S2, regular rate and rhythm, with no murmurs, rubs or gallops. Abdomen: Soft, obese, nontender, nondistended, no hepatosplenomegaly appreciated. Normoactive bowel sounds. Extremities: LLE BKA stump site wrapped with bandage/dressings. Trace pitting edema of RLE. Musculoskeletal: (+)L below the knee amputation. Neurological: No focal neurologic deficits appreciated bilaterally. Laboratory data: CBC is remarkable for WBC 12.4 (H), RBC 2.63 (L), Hgb 7.6 (L), Hct 25.6, MCV 97.3 (H), RDW 15 (H), MCHC 29.7 (L), platelets 233. BMP is remarkable for Na 135 (L), K 5.1, CO2 30, BUN 64 (H), Cr 3.08 (H), GFR 16.2 (L), glucose 303 (H), Calcium 8.1 (L), CRP 5.11 (H). Albumin: 2.3 (L) POC Glucose: 274 (H). Microbiology: Blood Cx showed no growth after 5 days. Cx from L ankle: Gram stain: No cells and no organisms seen Wound Cx: few Staph Aureus (MSSA) Imaging: No new imaging today. Current Inpatient Medications: Cephazolin 1 gm IV q12h Aranesp (Darbepoetin German) 100 mcg Fr@09 SC Ferrous Sulfate 325 mg PO BID Carvedilol 12.5 mg PO BID Isosorbide Mononitrate (Imdur) 30 MG PO DAILY Percocet 5/325 mg PO q4h PRN Morphine Sulfate 2 mg q4h IV PRN Gabapentin 300 mg PO QAM Gabapentin 600 mg PO QHS Tylenol 650 mg PO q4h PRN pain or fever Diphenhydramine 25 mg PO q6h PRN itching New Medications Started: Dilaudid 2 mg q8h PRN PO Moderate/Severe Pain PS 5-10 Assessment/Plan: 1. Below the Knee Amputation of LLE Post-Operative Day #2: Pain better controlled today with addition of the PO dilaudid 2 mg PO q8h PRN mod/severe pain. Patient also on PRN morphine, tylenol, gabapentin, percocet. Have given one dose of 2 mg dilaudid PO once. 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 IV dilaudid does not seem to be available at our facility. However, pain is poorly controlled at this point. 2. Acute renal failure superimposed on CKD Stage IV: Renal function has declined after surgery. However, creatinine about stable today at 3.08 today from 3.01 yesterday. GFR has gone from 16.6 to 16. 2 today. Urine output, however, has been encouraging with a total of 1400 mL of urine produced.Was given 2 liters of NS yesterday. Discontinued diuretics torsemide and spironolactone two days ago due to bump in creatinine and also for prior to procedure of BKA. Thus, patient was likely dehydrated postsurgically and had decline in kidney function secondary to that. Patient will likely eventually need AV graft as she had fistulas that failed in the past as per Dr. Yanez. Will continue to monitor renal function. 3. Hyponatremia: Sodium is mildly low today at 135. Continue to monitor BMP. 4. Hyperkalemia: Resolved today. K was 5.1 today. Likely K was elevated sec ondary to postsurgical BETTY and dehydration. Will continue to monitor. 4. Lower extremity edema: Had L BKA but has trace RLE edema. Stable. Monitor clinically for now as diuretics have been discontinued. 5. Anemia in CKD: Hgb decreased from 8.9 yesterday to 7.6 today likely due to postsurgical fluid/blood losses. Will transfuse 1 unit of PRBCs today. Continue to monitor CBC. Continue aranesp 100 mcg SC daily and ferrous sulfate 325 mg PO BID. 6. Osteomyelitis of L foot/L Calcaneal Fracture: Status-post L BKA post-op day #2. Will still continue IV antibiotic therapy until completion. Currently on cep hazolin 1 gm IV q12h. 7. Diabetes mellitus type 2: Controlled and fingersticks stable. Continue current regimen with levemir 30 units SC BID, humalog ISS at AC and QHS. 8. Peripheral Vascular Disease: Appreciate Vascular Surgery input. Continue with recommendations of Vascular Surgery for PVD. My preceptor for this patient encounter was Dr. Deepika Yanez, and was physically present in the building during the encounter and was fully available. As needed, all aspects of the patient interview, examination, medical decision making process, and medical care plan development were reviewed and approved by the preceptor. Preceptor is aware and concurs with the plan as stated in the body of this note and will attest to such by his/her cosignature. A-FIB/CHADSVASC A-FIB History Current/History of A-Fib/PAF?: No Current Oral Anticoagulant The: No VS,Fishbone, I+O VS, Fishbone, I+O Laboratory Tests 06/24/18 06:17 Red Blood Count 2.63 L, Mean Corpuscular Volume 97.3 H, Mean Corpuscular Hemoglobin 28.9, Mean Corpuscular Hemoglobin Concent 29.7 L, Red Cell Distrib ution Width 15.0 H, Neutrophils (%) (Auto) 84.8 H, Lymphocytes (%) (Auto) 7.3 L, Monocytes (%) (Auto) 6.9 H, Eosinophils (%) (Auto) 0.0, Basophils (%) (Auto) 0.2, Neutrophils # (Auto) 10.5 H, Lymphocytes # (Auto) 0.9 L, Monocytes # (Auto) 0.9 H, Eosinophils # (Auto) 0.0, Basophils # (Auto) 0.0 06/24/18 06:25 Anion Gap 7 L Vital Signs Date Time Temp Pulse Resp B/P (MAP) Pulse Ox O2 Delivery O2 Flow Rate FiO2 06/24/18 10:12 12 06/24/18 09:00 97.6 80 150/67 (94) 100 2.0 I&O- Last 24 Hours up to 6 AM 06/24/18 06:00 Intake Total 720 ml Output Total 2300 ml Balance -1580 ml Attending Note Attending Note Pt was seen and examined with the resident A: BETTY on CKD4 S/P Lt BKA Iron def anemia LE edema P: Cr plateaued, cont to hold diuretics. start Iron infusion if levels are low. NO need of IV fluids. Pain optimization with Dilaudid PO. ANDREW LANGE DO June 24, 2018 11:46 DEEPIKA YANEZ MD June 27, 2018 13:06
--- NOTE | 2018-06-24 12:40 | IPNPDOC ---
Subjective Date Seen The patient was seen on 06/24/18. Subjective Chief Complaint/HPI Patient lying in bed comfortably as I entered the room. She reports pain to be under much better control Constitutional: Denies: Chills, Fever Pulmonary: Denies: Dyspnea, Cough Cardiovascular: Denies: Chest Pain, Palpitations, Orthopnea Gastrointestinal: Denies: Nausea, Vomiting, Abdominal Pain Musculoskeletal: Reports: Other Symptoms (s/p BKA) Psych: Reports: Mood Normal Objective Physical Examination General Exam: Positive: Alert, Cooperative (laying in bed when I entered the room), No Acute Distress Eye Exam: Positive: Sclera icteric ENT Exam: Positive: Mucous membr. moist/pink Chest Exam: Positive: Clear to auscultation, Normal air movement Heart Exam: Positive: Rate Normal, Regular Rhythm, Normal S1, Normal S2; Negative: Murmurs, Rubs Abdomen Exam: Positive: Normal bowel sounds, Soft; Negative: Tenderness Extremity Exam: Positive: Other (her left stump was wrapped today. Bandage is clean dry and intact today) Psych Exam: Positive: Mental status NL, Mood NL, Oriented x 3 A-FIB/CHADSVASC A-FIB History Current/History of A-Fib/PAF?: No Assessment /Plan Assessment 06/24: Patient repeatedly attempted, but struggled with PT; likely will need slide board and walker; pain better controlled. Daughter at bedside. Problems (1) Osteomyelitis of foot, acute Status: Acute Response to Treatment: Stable Problem Text: 06/24/18: Pain under better control this afternoon. Dr. Matthews continues to follow. Dressing changed by surgical team this morning. D7 of Cefazolin. Dr. Rodríguez continues to follow 06/23/18: S/P BKA. Patient reports pain in left lower extremity and states nothing is working for her pain. I recommended increasing Morphine to q 2 hours prn and she states Morphine doesn't help the pain and wants Dilaudid. I will discuss with attending 06/22 Plan BKA later today. Though anxious, patient remains consistent in her desire for amputation. 06/21 She is on cefazolin IV twice daily. Dr. Dooley will do a telemedicine consultation on Thursday for advice regarding her wounds and the possibility of hyperbaric oxygen therapy. However this may be unnecessary if she is truly pursuing amputation. I'm not going to cancel the consultation yet because of like her to think about this overnight. I will communicate with Dr. Matthews regarding her wishes; I will modify the consultation request to him. (2) Anemia Status: Chronic Response to Treatment: Stable Problem Text: 06/24/18: Chronic and secondary to CKD. Hgb slightly worse from baseline. Nephrology has ordered transfusion of 1 unit PRBC. Continue aranesp 100 mcg SC daily and ferrous sulfate 325 mg PO BID. (3) CKD (chronic kidney disease), stage IV Status: Chronic Problem Specific Plan: Consult Specialist Problem Text: 06/24/18: Nephrology following 06/23/18: Nephrology following. Cre 3.01 today, K+ 5.3. Plan is for dialysis Nephro assisting in management; appreciate their help. They have asked Dr. Matthews to assess her for an AV graft. (4) Left calcaneal fracture Status: Resolved Problem Specific Plan: Consult Specialist Problem Text: 06/22 -- plan amputation She will need to be non-weight bearing on the L foot. P/T is being asked to evaluate her for a knee scooter vs. wheelchair. This may be irrelevant if she chooses amputation. (5) Peripheral vascular disease of extremity Status: Chronic Problem Specific Plan: Consult Specialist Problem Text: She has a known history of peripheral vascular disease. I have asked Dr. Matthews to evaluate her left lower extremity to make sure that the blood flow to that area is adequate for: delivery of antibiotic to the area of os teomyelitis, healing from a possible amputation, or optimizing hyperbaric oxygen treatment. (6) DM2 (diabetes mellitus, type 2) Status: Chronic Problem Text: 06/24/18: Continue SSI Her blood glucose levels very, but are not tremendously high while she is here in the hospital. Continue RISS. Continue Levemir 30 units sq bid (7) Diastolic CHF Status: Chronic Problem Text: She is currently receiving spironolactone and torsemide. Nephrology is assisting with the management of these. (8) Hyperlipidemia Status: Chronic Problem Text: Continue home medications. (9) CAD (coronary artery disease) Status: Chronic Response to Treatment: Stable (10) Physical deconditioning Status: Chronic Response to Treatment: Stable Problem Text: PT consulted Plan/VTE VTE Prophylaxis Ordered?: Yes (Heparin ) VS, I&O, 24H, Fishbone Vital Signs/I&O Vital Signs Date Time Temp Pulse Resp B/P (MAP) Pulse Ox O2 Delivery O2 Flow Rate FiO2 06/24/18 11:34 80 06/24/18 11:32 150/67 06/24/18 10:12 12 06/24/18 10:00 2.0 06/24/18 09:00 97.6 100 I&O- Last 24 Hours up to 6 AM 06/24/18 06:00 Intake Total 720 ml Output Total 2300 ml Balance -1580 ml Laboratory Data 24H LABS Laboratory Tests 2 06/23/18 17:12: Bedside Glucose (Misc Panel) 241H 06/23/18 20:09: Bedside Glucose (Misc Panel) 265H 06/24/18 06:17: Immature Granulocyte % (Auto) 0.8, White Blood Count 12.4H, Red Blood Count 2.63L, Hemoglobin 7.6L, Hematocrit 25.6L, Mean Corpuscular Volume 97.3H, Mean Corpuscular Hemoglobin 28.9, Mean Corpuscular Hemoglobin Concent 29.7L, Red Cell Distribution Width 15.0H, Platelet Count 233, Neutrophils (%) (Auto) 84.8H, Lymphocytes (%) (Auto) 7.3L, Monocytes (%) (Auto) 6.9H, Eosinophils (%) (Auto) 0.0, Basophils (%) (Auto) 0.2, Neutrophils # (Auto) 10.5H, Lymphocytes # (Auto) 0.9L, Monocytes # (Auto) 0.9H, Eosinophils # (Auto) 0.0, Basophils # (Auto) 0.0, Nucleated Red Blood Cells % (auto) 0.0 06/24/18 06:25: Blood Urea Nitrogen 64H, Creatinine 3.08H, Sodium Level 135L, Potassium Level 5.1, Chloride Level 98, Carbon Dioxide Level 30, Anion Gap 7L, Glomerular Filtration Rate 16.2L, Calcium Level 8.1L, Phosphorus Level 4.5, C-Reactive Protein, Quantitative 5.11H, Albumin 2.3L 06/24/18 07:48: Bedside Glucose (Misc Panel) 274H 06/24/18 11:54: Bedside Glucose (Misc Panel) 196H CBC/BMP Laboratory Tests 06/24/18 06:17 Red Blood Count 2.63 L, Mean Corpuscular Volume 97.3 H, Mean Corpuscular Hemoglobin 28.9, Mean Corpuscular Hemoglobin Concent 29.7 L, Red Cell Distribution Width 15.0 H, Neutrophils (%) (Auto) 84.8 H, Lymphocytes (%) (Auto) 7.3 L, Monocytes (%) (Auto) 6.9 H, Eosinophils (%) (Auto) 0.0, Basophils (%) (Auto) 0.2, Neutrophils # (Auto) 10.5 H, Lymphocytes # (Auto) 0.9 L, Monocytes # (Auto) 0.9 H, Eosinophils # (Auto) 0.0, Basophils # (Auto) 0.0 06/24/18 06:25 Anion Gap 7 L Microbiology Microbiology 06/16/18 Blood Culture - Final, Complete NO GROWTH AFTER 5 DAYS 06/16/18 Gram Stain - Final, Complete 06/16/18 Wound Culture - Final, Complete Staphylococcus Aureus MAURILIO SOARES June 24, 2018 12:39 MOE TOLENTINO DO June 25, 2018 00:00
[2018-06-24] MEDS ORDERED: SODIUM CHLORIDE 0.9% INJ 10 ML SYR IV PRN (13:15)
[2018-06-24 14:00] VITALS: BP 151/65
[2018-06-24] MEDS: SODIUM CHLORIDE 0.9% INJ 10 ML SYR IV SCH (16:54)
--- NOTE | 2018-06-24 18:03 | IPNPDOC ---
Text Note Date of Service The patient was seen on 06/24/18. NOTE SUBJECTIVE: Patient underwent below the knee amputation of left leg, she john ated the procedure. She has no current complaints. She is ready to begin rehabilitation. OBJECTIVE: PHYSICAL EXAMINATION: GENERAL APPEARANCE: Alert no acute distress. , Obese female SKIN: Warm, well perfused. LUNGS: Clear to auscultation bilaterally. HEART: Normal S1, S2. No murmurs, no rubs, no gallops ABDOMEN: Soft. No masses. Bowel sounds are present. TRUNK/SPINE:Straight. EXTREMITIES: Status post below the knee amputation of her left leg. Stump was wrapped on my examination, no discharge noted, the patient states the pain is a adequately controlled PULSES: 2+ upper and lower extremity . Right leg only LABORATORY DATA: Please see below. ASSESSMENT AND PLAN: This is a 67-year-old female who was admitted with Staphylococcus aureus abscess of the left foot, originally treated with four weeks of IV antibiotics. , However, due to the severity of the foot infection,calcaneus fracture and poor chances of healing and being ambulatory below the knee amputation was recommended. Patient verbalized an understanding, and proceeded with below the knee amputation. She tolerated the procedure without major difficulty. She is ready to begin rehabilitation. She is on cefazolin as a surgical prophylaxis. Patient can begin rehabilitation at the discretion of primary team. For the moment, patient appears stable, no signs of infection. She did have a slight increase in white count. However, I am not concerned for surgical infection. We'll continue to monitor. VS,Fishbone, I+O VS, Fishbone, I+O Laboratory Tests 06/24/18 06:17 Red Blood Count 2.63 L, Mean Corpuscular Volume 97.3 H, Mean Corpuscular Hemoglobin 28.9, Mean Corpuscular Hemoglobin Concent 29.7 L, Red Cell Distribution Width 15.0 H, Neutrophils (%) (Auto) 84.8 H, Lymphocytes (%) (Auto) 7.3 L, Monocytes (%) (Auto) 6.9 H, Eosinophils (%) (Auto) 0.0, Basophils (%) (Auto) 0.2, Neutrophils # (Auto) 10.5 H, Lymphocytes # (Auto) 0.9 L, Monocytes # (Auto) 0.9 H, Eosinophils # (Auto) 0.0, Basophils # (Auto) 0.0 06/24/18 06:25 Anion Gap 7 L Vital Signs Date Time Temp Pulse Resp B/P (MAP) Pulse Ox O2 Delivery O2 Flow Rate FiO2 06/24/18 17:00 16 06/24/18 14:00 96.1 76 151/65 (93) 100 2.0 I&O- Last 24 Hours up to 6 AM 06/24/18 06:00 Intake Total 720 ml Output Total 2300 ml Balance -1580 ml GME ATTESTATION GME ATTESTATION My faculty preceptor for this patient encounter was physically present during the encounter and was fully available. All aspects of the patient interview, examination, medical decision making process, and medical care plan development were reviewed and approved by the faculty preceptor. The faculty preceptor is aware and concurs with the plan as stated in the body of this note and will attest to such by his/her cosignature. MANGO FUENTES DO June 24, 2018 18:03 Niko Rodríguez MD June 28, 2018 21:55
[2018-06-24] MEDS: CYCLOBENZAPRINE 10 MG TAB PO SCH (21:03)
[2018-06-24] MEDS: ATORVASTATIN 20 MG TAB PO SCH (21:03)
[2018-06-24] MEDS: diphenhydrAMINE 25 MG CAP PO PRN (21:06)
[2018-06-24 22:00] VITALS: BP 134/60
[2018-06-24] MEDS: NYSTATIN 100,000 UNITS/GM TOPICAL PWD 15 GM TOP SCH (22:32)
[2018-06-25] VITALS (7 sets, daily range): BP systolic 149–159; BP diastolic 69–79; O2SAT 97–98
[2018-06-25] MEDS: SODIUM CHLORIDE 0.9% INJ 10 ML SYR IV SCH ×2 (04:36→17:35)
[2018-06-25] MEDS: HEPARIN SOD (PORCINE) 5000 UNITS/ML VIAL SC SCH ×3 (04:36→20:49)
[2018-06-25] MEDS: HYDROmorphone 2 MG TAB PO PRN ×3 (04:37→17:36)
[2018-06-25 05:47] LABS: BASO # 0.1 10^3/uL (0.0-0.2); BASO % 0.5 % (0.0-1.0); EOS # 0.2 10^3/uL (0.0-0.50); EOS % 2.3 % (0.0-3.0); HEMATOCRIT 26.6 % (36.0-47.0); LYMPH # 1.9 10^3/uL (1.5-4.5); LYMPH % 18.2 % (24.0-44.0); MEAN CORPUSCULAR HEMOGLOBIN 28.6 pg (27.0-33.0); MEAN CORPUSCULAR HGB CONC 30.1 g/dl (32.0-36.5); MONO % 9.5 % (0.0-5.0); NEUTROPHILS # 7.2 10^3/uL (1.8-7.7); NEUTROPHILS % 68.9 % (36.0-66.0); PLATELET COUNT, AUTOMATED 196 10^3/uL (150-450); WHITE BLOOD COUNT 10.5 10^3/uL (4.0-10.0)
[2018-06-25 06:11] LABS: CALCIUM LEVEL 8.1 MG/DL (8.8-10.2); CREATININE FOR GFR 2.57 MG/DL (0.55-1.30); GLOMERULAR FILTRATION RATE 19.9 (>45); POTASSIUM SERUM 4.3 MEQ/L (3.5-5.1)
[2018-06-25] MEDS: HumaLOG INSULIN (NovoLOG) PER UNIT SC SCH ×4 (08:49→21:00)
[2018-06-25] MEDS: CARVedilol 12.5 MG TAB PO SCH ×2 (09:15→20:51)
[2018-06-25] MEDS: FERROUS SULFATE 325MG TAB PO SCH ×2 (09:15→20:50)
[2018-06-25] MEDS: PANTOPRAZOLE 40MG TAB (PROTONIX) PO SCH (09:16)
[2018-06-25] MEDS: ISOSORBIDE MON. (IMDUR) 30 MG XR TAB PO SCH (09:16)
[2018-06-25] MEDS: PARoxetine 20 MG TAB PO SCH (09:16)
[2018-06-25] MEDS: GABAPENTIN 300 MG CAP PO SCH ×2 (09:17→20:50)
[2018-06-25] MEDS: MAGNESIUM OXIDE 400 MG TAB (MAG-OX) PO SCH (09:17)
[2018-06-25] MEDS: LEVEMIR (INSULIN DETEMIR) 1 UNITS/0.01ML SC SCH ×2 (09:18→20:52)
[2018-06-25] MEDS: NYSTATIN 100,000 UNITS/GM TOPICAL PWD 15 GM TOP SCH ×2 (09:19→20:49)
--- NOTE | 2018-06-25 09:59 | IPNPDOC ---
Date Seen The patient was seen on 06/25/18. Progress Note Vascular Surgery Dr Matthews HPI: 67-year-old lady with a past medical history of diabetes, on insulin, hypertension, stage IV chronic kidney disease, follows with Dr. Dong, diabetic neuropathy, hyperlipidemia, who was admitted 06/16/18 with left lateral foot wound and calcaneal fracture. Patient had been seen by podiatry and was sent to the emergency room for further evaluation and treatment related to worsening of her foot wound. Vascular Surgery was consulted to assist with LLE foot wound. Patient is status post left BKA 06/22/[address] Matthews. This morning the patient reports pain increases midway through doses of Dilaudid. She did sleep well last night. Pain increases when she is active or with PT. Also reports mouth soreness. Denies any fevers, chills, weakness, fatigue, Headache, Chest Pain, Shortness of breath, cough, palpitations, abdominal pain, N/V/D or changes in bowel or bladder habits. PAST MEDICAL HISTORY: As mentioned above PAST SURGICAL HISTORY: She has had right 2nd, 4th and 5th toe amputations, left 3rd, 4th, 5th toe amputations plus left ankle sx, a hysterectomy, cholecystectomy, partial appendectomy. PE: GEN: 67yoF, appears stated age. Alert and oriented x 3. [place]. HEENT: Normocephalic, atraumatic. Moist mucous membranes. Dentition fair. CHEST: Regular rate and rhythm, +S1, +S2 LUNGS: Clear to auscultation bilaterally. No wheezes, rales, or rhonchi. Breathing appears symmetric and easy. ABD: Round, soft, non-tender, non-distended. +Bowel sounds throughout. No rebound or guarding. EXT: Status post left BKA, bandage removed. Wound with minimal bloody drainage. [place] intact. No erythema. Skin is pink in color. There are small blisters noted at lateral aspects of wound b/l with serous fluid. Dry dressing re applied. 1-2 mm edema noted RLE, edema noted Left thigh as well. SKIN: [place], dry, warm. No rashes. NEURO: Alert and oriented x 3. Cranial nerves III-XII are intact. No focal deficits appreciated. Left foot MRI 1. Lateral soft tissue edema. There is adjacent edema within the bone marrow of the base of the fifth metatarsal on T2 fat-suppressed and T1-weighted images consistent with acute osteomyelitis. A smaller focus of edema is present within the distal and lateral cuboid also suspicious for acute osteomyelitis. 2. There is a transverse fracture across the calcaneus. Electronically signed by: Prem Valverde On 06/16/2018 21:26:12 PM A&P: 67-year-old lady with a past medical history of diabetes, on insulin, hypertension, stage IV chronic kidney disease, follows with Dr. Dong, diabetic neuropathy, hyperlipidemia, who was admitted 06/16/18 with left lateral foot wound and calcaneal fracture. Patient had been seen by podiatry and was sent to the emergency room for further evaluation and treatment related to worsening of her foot wound. Vascular Surgery is consulted to assist with LLE foot wound. Chronic Left foot wound /Osteomyelitis of L foot, growing MSSA from wound site. Status post left BKA as per Dr. Matthews 06/22/18. POD 3 Patient is afebrile. WBC 10.5 Currently on cephazolin [address] q12h. [address] Rodríguez, ID following. Pain control with Dilaudid 2 mg Q6 prn. Pt states the dose is wearing off prior to when her next dose is due. Pt's primary complaint is persistent pain. Will adjust Dilaudid to 2 mg Q4 hr prn. Percocet/Morphine/tramadol d/cd. Patient remains on gabapentin 300mg AM/ 600 mg at bedtime. Angiogram completed last admission. No intervention required. ARU screen pending. D/W them this am and they are awaiting ins approval. [facility] planning to bring ampu shield and discuss prosthetic info. Dressing change completed this AM with Dr Rodríguez. Acute renal failure superimposed on CKD Stage IV Scr trend decreased. S/P PRBC 1 u 06/24/18. IVF 06/23/18. Pt appears edematous, d/w nephrology. diuretics on hold. d/w Dr Downs, recomm ends hold off another 24 hrs on diuretic. HD access Dr. Yanez has requested vascular surgery to evaluate for AV fistula. Vein mapping completed 05/24/18. AVF creaation possibly next week as per Dr Matthews. Anemia in CKD: Hgb 8.0 1 u PRBC 06/24/18. aranesp/ferrous sulfate Diabetes mellitus type 2 Mgmt as per primary team. DVT prophylaxis. Subcutaneous heparin. A-FIB/CHADSVASC A-FIB History Current/History of A-Fib/PAF?: No VS, I&O, 24H, Fishbone Vital Signs/I&O Vital Signs Date Time Temp Pulse Resp B/P (MAP) Pulse Ox O2 Delivery O2 Flow Rate FiO2 06/25/18 09:16 159/71 06/25/18 09:15 86 06/25/18 08:25 98.6 20 100 2.0 06/25/18 00:05 Room Air I&O- Last 24 Hours up to 6 AM 06/25/18 05:59 Intake Total 1990 ml Output Total 1950 ml Balance 40 ml Laboratory Data 24H LABS Laboratory Tests 2 06/24/18 11:54: Bedside Glucose (Misc Panel) 196H 06/24/18 16:46: Bedside Glucose (Misc Panel) 194H 06/24/18 20:34: Bedside Glucose (Misc Panel) 199H 06/25/18 05:30: Immature Granulocyte % (Auto) 0.6, White Blood Count 10.5H, Red Blood Count 2.80L, Hemoglobin 8.0L, Hematocrit 26.6L, Mean Corpuscular Volume 95.0, Mean Corpuscular Hemoglobin 28.6, Mean Corpuscular Hemoglobin Concent 30.1L, Red Cell Distribution Width 15.6H, Platelet Count 196, Neutrophils (%) (Auto) 68.9H, Lymphocytes (%) (Auto) 18.2L, Monocytes (%) (Auto) 9.5H, Eosinophils (%) (Auto) 2.3, Basophils (%) (Auto) 0.5, Neutrophils # (Auto) 7.2, Lymphocytes # (Auto) 1.9, Monocytes # (Auto) 1.0H, Eosinophils # (Auto) 0.2, Basophils # (Auto) 0.1, Nucleated Red Blood Cells % (auto) 0.0, Anion Gap 2L, Glomerular Filtration Rate 19.9L, Blood Urea Nitrogen 65H, Creatinine 2.57H, Sodium Level 134L, Potassium Level 4.3, Chloride Level 102, Carbon Dioxide Level 30, Calcium Level 8.1L CBC/BMP Laboratory Tests 06/25/18 05:30 Red Blood Count 2.80 L, Mean Corpuscular Volume 95.0, Mean Corpuscular Hemoglobin 28.6, Mean Corpuscular Hemoglobin Concent 30.1 L, Red Cell Distribution Width 15.6 H, Neutrophils (%) (Auto) 68.9 H, Lymphocytes (%) (Auto) 18.2 L, Monocytes (%) (Auto) 9.5 H, Eosinophils (%) (Auto) 2.3, Basophils (%) (Auto) 0.5, Neutrophils # (Auto) 7.2, Lymphocytes # (Auto) 1.9, Monocytes # (Auto) 1.0 H, Eosinophils # (Auto) 0.2, Basophils # (Auto) 0.1, Calcium Level 8.1 L Microbiology Microbiology 06/16/18 Blood Culture - Final, Complete NO GROWTH AFTER 5 DAYS 06/16/18 Gram Stain - Final, Complete 06/16/18 Wound Culture - Final, Complete Staphylococcus Aureus Clari Mike June 25, 2018 09:58
[2018-06-25] MEDS: ceFAZolin SOD 1 GM in D5W MINI-BAG PLUS 50 ML IV SCH ×2 (11:14→20:51)
[2018-06-25] MEDS: NYSTATIN 500,000 U/5 ML SUSP UDC SS SCH ×4 (11:19→20:50)
[2018-06-25 13:19] LABS: PERCENT SATURATION 10.6 % (13.2-45.0)
--- NOTE | 2018-06-25 14:51 | IPN ---
DATE: 06/25/2018 SUBJECTIVE: Patient was seen and examined at the bedside this morning. Patient is awake and alert. She is hemodynamically stable. She was sitting up and getting ready to be washed. She reports that her pain is better optimized today as compared with yesterday, but she is still requesting the dose of pain medications to be increased. Her renal function is improving. Creatinine is down to 2.3. She is making good amount of urine now. OBJECTIVE: VITAL SIGNS: Temperature is 98.6 degrees Fahrenheit, blood pressure 159/71, pulse is 86, respiratory rate of 20, saturating 100% on nasal cannula at 2 liters. INTAKE AND OUTPUT: Urine output is 2.2 liters yesterday, 400 mL so far today since overnight. Weight in the bed scale is 126.9 kg. PHYSICAL EXAMINATION: GENERAL: Patient is awake, alert, oriented times three, sitting up in the bed, morbidly obese. HEAD AND NECK EXAM: Extraocular muscles intact. Pupils equally round and reactive to light. Mucous membranes are slightly dry. Neck is supple. There is no jugular venous distention (JVD). CARDIOVASCULAR: S1, S2. Regular rate. 1+ edema of the bilateral lower extremities. RESPIRATORY: Chest is clear to auscultation bilaterally. Bilateral equal air entry. No rales or rhonchi. ABDOMEN: Soft, obese, positive bowel sounds. Nontender. No organomegaly. MUSCULOSKELETAL: The patient has a left below-knee amputation. There is 1+ edema of the amputation site and it is covered with a dressing. CENTRAL NERVOUS SYSTEM (CLERICAL ADVISER): No focal deficit. Power is 5/5 in bilateral upper extremities. PSYCHIATRIC: Normal mood and affect. LABORATORY REVIEW: Complete blood count (CBC) showed a WBC of 10.5, hemoglobin is 8, platelets are 196. Basic metabolic panel (BMP) showed sodium 134, potassium 4.3, chloride 102, bicarbonate 30, BUN 65, creatinine is 2.5, it was 3 yesterday. CURRENT INPATIENT MEDICATIONS: Patient's medications were all reviewed by me. She continues to be on intravenous (IV) Ancef and she is also on Aranesp 100 mcg subcutaneous once a week. Her diuretics are on hold. Dilaudid dose has been changed to 2 mg every 4 hours as needed for moderate to severe pain. No other change in the medications today. ASSESSMENT AND PLAN: 1. Acute kidney injury superimposed on chronic kidney disease stage IV. It was secondary to dehydration. After the surgery, she was given IV fluids. Renal function is improving. Creatinine is down to 2.5. Continue to hold the diuretics for now. Patient is being evaluated on daily basis for need to initiate diuresis again. 2. Anemia secondary to chronic kidney disease and recent blood loss. Patient was given 1 unit of packed red blood cells transfusion yesterday. Hemoglobin is up to 8 now She is also due for her Aranesp today. I am going to check her iron levels and give her IV iron if needed 3. Lower extremity edema. I would hold diuretics for one more day. If needed, I will resume diuresis tomorrow morning. 4. Osteomyelitis of the left foot status post left below-knee amputation. Patient continues to be on IV cephazolin. Duration of antibiotic is as per surgery and primary team.
[2018-06-25] MEDS: CYCLOBENZAPRINE 10 MG TAB PO SCH (20:50)
[2018-06-25] MEDS: ATORVASTATIN 20 MG TAB PO SCH (20:50)
--- NOTE | 2018-06-25 23:05 | IPNPDOC ---
Subjective Date Seen The patient was seen on 06/25/18. Subjective Chief Complaint/HPI Seen today on Lin. She got out of bed today with use of Josselin Stedy, but was still unable to transfer to the commode. She is frustrated that she is so limited right now. Constitutional: Denies: Chills, Fever Skin: Denies: Rash Pulmonary: Denies: Dyspnea, Cough Cardiovascular: Denies: Chest Pain Gastrointestinal: Denies: Nausea, Vomiting, Diarrhea Musculoskeletal: Reports: Leg Pain Psych: Denies: Mood Normal (frustrated) Objective Physical Examination General Exam: Positive: Alert, Cooperative (laying in bed when I entered the room), No Acute Distress Eye Exam: Positive: Sclera icteric ENT Exam: Positive: Mucous membr. moist/pink Chest Exam: Positive: Clear to auscultation, Normal air movement Heart Exam: Positive: Rate Normal, Regular Rhythm, Normal S1, Normal S2; Negative: Murmurs, Rubs Abdomen Exam: Positive: Normal bowel sounds, Soft; Negative: Tenderness Extremity Exam: Positive: Other (her left stump was wrapped today. Bandage is clean dry and intact today) Psych Exam: Positive: Mental status NL, Mood NL, Oriented x 3 A-FIB/CHADSVASC A-FIB History Current/History of A-Fib/PAF?: No Assessment /Plan Problems (1) Osteomyelitis of foot, acute Status: Acute Response to Treatment: Stable Problem Text: 06/25: POD 3. Pain controlled today. She is working with PT for rehab, though limited in ability to transfer so far. 06/24/18: Pain under better control this afternoon. Dr. Matthews continues to follow. Dressing changed by surgical team this morning. D7 of Cefazolin. Dr. Rodríguez continues to follow 06/23/18: S/P BKA. Patient reports pain in left lower extremity and states nothing is working for her pain. I recommended increasing Morphine to q 2 hours prn and she states Morphine doesn't help the pain and wants Dilaudid. I will discuss with attending 06/22 Plan BKA later today. Though anxious, patient remains consistent in her desire for amputation. 06/21 She is on cefazolin IV twice daily. Dr. Dooley will do a telemedicine consultation on Thursday for advice regarding her wounds and the possibility of hyperbaric oxygen therapy. However this may be unnecessary if she is truly pursuing amputation. I'm not going to cancel the consultation yet because of like her to think about this overnight. I will communicate with Dr. Matthews regarding her wishes; I will modify the consultation request to him. (2) Anemia Status: Chronic Response to Treatment: Stable Problem Text: 06/24/18: Chronic and secondary to CKD. Hgb slightly worse from baseline. Nephrology has ordered transfusion of 1 unit PRBC. Continue aranesp 100 mcg SC daily and ferrous sulfate 325 mg PO BID. (3) CKD (chronic kidney disease), stage IV Status: Chronic Problem Specific Plan: Consult Specialist Problem Text: 06/25: Renal function improved somewhat from yesterday 06/24/18: Nephrology following 06/23/18: Nephrology following. Cre 3.01 today, K+ 5.3. Plan is for dialysis Nephro assisting in management; appreciate their help. They have asked Dr. Matthews to assess her for an AV graft. (4) Left calcaneal fracture Status: Resolved Problem Specific Plan: Consult Specialist Problem Text: 06/22 -- plan amputation She will need to be non-weight bearing on the L foot. P/T is being asked to evaluate her for a knee scooter vs. wheelchair. This may be irrelevant if she chooses amputation. (5) Peripheral vascular disease of extremity Status: Chronic Problem Specific Plan: Consult Specialist Problem Text: She has a known history of peripheral vascular disease. I have asked Dr. Matthews to evaluate her left lower extremity to make sure that the blood flow to that area is adequate for: delivery of antibiotic to the area of osteomyelitis, healing from a possible amputation, or optimizing hyperbaric oxygen treatment. (6) DM2 (diabetes mellitus, type 2) Status: Chronic Problem Text: 06/24/18: Continue SSI Her blood glucose levels very, but are not tremendously high while she is here in the hospital. Continue RISS. Continue Levemir 30 units sq bid (7) Diastolic CHF Status: Chronic Problem Text: 06/25 -- off diuretics secondary to renal failure, appreciate nephrology's assistance She is currently receiving spironolactone and torsemide. Nephrology is assisting with the management of these. (8) Hyperlipidemia Status: Chronic Problem Text: Continue home medications. (9) CAD (coronary artery disease) Status: Chronic Response to Treatment: Stable (10) Physical deconditioning Status: Chronic Response to Treatment: Stable Problem Text: PT consulted. Pt is limited physically, will require rehab after DC. Plan/VTE VTE Prophylaxis Ordered?: Yes (Heparin ) VS, I&O, 24H, Fishbone Vital Signs/I&O Vital Signs Date Time Temp Pulse Resp B/P (MAP) Pulse Ox O2 Delivery O2 Flow Rate FiO2 06/25/18 20:51 86 148/74 06/25/18 19:00 17 06/25/18 14:25 98.3 100 2.0 06/25/18 00:05 Room Air I&O- Last 24 Hours up to 6 AM 06/25/18 06:00 Intake Total 1870 ml Output Total 1250 ml Balance 620 ml Laboratory Data 24H LABS Laboratory Tests 2 06/25/18 05:30: Immature Granulocyte % (Auto) 0.6, White Blood Count 10.5H, Red Blood Count 2.80L, Hemoglobin 8.0L, Hematocrit 26.6L, Mean Corpuscular Volume 95.0, Mean Corpuscular Hemoglobin 28.6, Mean Corpuscular Hemoglobin Concent 30.1L, Red Cell Distribution Width 15.6H, Platelet Count 196, Neutrophils (%) (Auto) 68.9H, Lymphocytes (%) (Auto) 18.2L, Monocytes (%) (Auto) 9.5H, Eosinophils (%) (Auto) 2.3, Basophils (%) (Auto) 0.5, Neutrophils # (Auto) 7.2, Lymphocytes # (Auto) 1.9, Monocytes # (Auto) 1.0H, Eosinophils # (Auto) 0.2, Basophils # (Auto) 0.1, Nucleated Red Blood Cells % (auto) 0.0, Anion Gap 2L, Glomerular Filtration Rate 19.9L, Blood Urea Nitrogen 65H, Creatinine 2.57H, Sodium Level 134L, Potassium Level 4.3, Chloride Level 102, Carbon Dioxide Level 30, Calcium Level 8.1L, Iron Level 29L, Total Iron Binding Capacity 273, Transferrin % Saturation 10.6L, Ferritin 520H 06/25/18 11:39: Bedside Glucose (Misc Panel) 179H 06/25/18 16:31: Bedside Glucose (Misc Panel) 131H 06/25/18 20:39: Bedside Glucose (Misc Panel) 99 CBC/BMP Laboratory Tests 06/25/18 05:30 Red Blood Count 2.80 L, Mean Corpuscular Volume 95.0, Mean Corpuscular Hemoglobin 28.6, Mean Corpuscular Hemoglobin Concent 30.1 L, Red Cell Distribution Width 15.6 H, Neutrophils (%) (Auto) 68.9 H, Lymphocytes (%) (Auto) 18.2 L, Monocytes (%) (Auto) 9.5 H, Eosinophils (%) (Auto) 2.3, Basophils (%) (Auto) 0.5, Neutrophils # (Auto) 7.2, Lymphocytes # (Auto) 1.9, Monocytes # (Auto) 1.0 H, Eosinophils # (Auto) 0.2, Basophils # (Auto) 0.1, Calcium Level 8.1 L Microbiology Microbiology 06/16/18 Blood Culture - Final, Complete NO GROWTH AFTER 5 DAYS 06/16/18 Gram Stain - Final, Complete 06/16/18 Wound Culture - Final, Complete Staphylococcus Aureus MOE TOLENTINO DO June 25, 2018 23:05
[2018-06-26] VITALS (7 sets, daily range): BP systolic 108–148; BP diastolic 62–86; O2SAT 99
[2018-06-26] MEDS: HYDROmorphone 2 MG TAB PO PRN ×4 (04:56→21:57)
[2018-06-26] MEDS: HEPARIN SOD (PORCINE) 5000 UNITS/ML VIAL SC SCH ×3 (04:56→21:54)
[2018-06-26] MEDS: SODIUM CHLORIDE 0.9% INJ 10 ML SYR IV SCH ×2 (04:57→17:07)
[2018-06-26 07:30] LABS: BASO # 0.1 10^3/uL (0.0-0.2); BASO % 0.5 % (0.0-1.0); EOS # 0.4 10^3/uL (0.0-0.50); EOS % 3.5 % (0.0-3.0); HEMATOCRIT 27.4 % (36.0-47.0); HEMOGLOBIN 8.3 g/dl (12.0-15.5); LYMPH # 1.5 10^3/uL (1.5-4.5); LYMPH % 15.6 % (24.0-44.0); MEAN CORPUSCULAR HEMOGLOBIN 29.2 pg (27.0-33.0); MEAN CORPUSCULAR HGB CONC 30.3 g/dl (32.0-36.5); MEAN CORPUSCULAR VOLUME 96.5 fl (80.0-96.0); MONO # 0.8 10^3/uL (0.0-0.8); MONO % 8.2 % (0.0-5.0); NEUTROPHILS # 7.1 10^3/uL (1.8-7.7); NEUTROPHILS % 71.6 % (36.0-66.0); PLATELET COUNT, AUTOMATED 190 10^3/uL (150-450); RED BLOOD COUNT 2.84 10^6/uL (4.00-5.40); WHITE BLOOD COUNT 9.9 10^3/uL (4.0-10.0)
[2018-06-26] MEDS: HumaLOG INSULIN (NovoLOG) PER UNIT SC SCH ×4 (07:30→21:00)
[2018-06-26 07:46] LABS: CALCIUM LEVEL 8.3 MG/DL (8.8-10.2); CREATININE FOR GFR 2.28 MG/DL (0.55-1.30); GLOMERULAR FILTRATION RATE 22.9 (>45); POTASSIUM SERUM 4.6 MEQ/L (3.5-5.1)
[2018-06-26] MEDS: LEVEMIR (INSULIN DETEMIR) 1 UNITS/0.01ML SC SCH ×2 (09:00→21:55)
[2018-06-26] MEDS: NYSTATIN 500,000 U/5 ML SUSP UDC SS SCH ×4 (09:13→21:55)
[2018-06-26] MEDS: GABAPENTIN 300 MG CAP PO SCH ×2 (09:14→21:56)
[2018-06-26] MEDS: FERROUS SULFATE 325MG TAB PO SCH ×2 (09:14→21:55)
[2018-06-26] MEDS: MAGNESIUM OXIDE 400 MG TAB (MAG-OX) PO SCH (09:14)
[2018-06-26] MEDS: PANTOPRAZOLE 40MG TAB (PROTONIX) PO SCH (09:14)
[2018-06-26] MEDS: PARoxetine 20 MG TAB PO SCH (09:14)
[2018-06-26] MEDS: CARVedilol 12.5 MG TAB PO SCH ×2 (09:15→21:56)
[2018-06-26] MEDS: NYSTATIN 100,000 UNITS/GM TOPICAL PWD 15 GM TOP SCH ×2 (09:16→21:54)
[2018-06-26] MEDS: ceFAZolin SOD 1 GM in D5W MINI-BAG PLUS 50 ML IV SCH ×2 (09:16→21:54)
[2018-06-26] MEDS: ISOSORBIDE MON. (IMDUR) 30 MG XR TAB PO SCH (09:16)
[2018-06-26] MEDS: TORSEMIDE 20 MG TAB PO SCH (12:50)
[2018-06-26] MEDS: IRON SUCROSE 200 MG in NS 100 ML IV SCH (12:50)
[2018-06-26] MEDS ORDERED: CHLORASEPTIC SPRAY MT PRN (13:45)
--- NOTE | 2018-06-26 15:01 | IPNPDOC ---
Text Note Date of Service The patient was seen on 06/26/18. NOTE Nephrology Service: Subjective: Patient seen and examined at bedside. Is status post L BKA post-operative day #[address] Matthews. Creatinine is stable at 2.28 today. Not on any diuretics anymore. Were d/ce'd four days ago. Patient states she is feeling better and more well hydrated. Reports her pain is better controlled now with the increase in the frequency of the dose of dilaudid. She denies much pain in LLE BKA stump. Is also on gabapentin, tylenol. She appears much more comfortable today than yesterday. Has made 400 mL urine yesterday and had a (+) 620 urine output kareen nce yesterday. Is normally on 1800 mL fluid restriction and consistent carbohydrate diet. Patient denies headache, blurred vision, dizziness, fevers, chills, nausea, vomiting, abdominal pain, diarrhea, constipation. However, patient a bit discouraged today about using the toilet and the difficulty of transferring to it. Objective: Vitals: T: 97.7 BP: 108/72 RR: 12 P: 77 O2 Saturation: 93% on 2 liters nasal cannula Weight: 126.9 kg yesterday and 126.7 kg today Intake: 1020 ml Output: 400 ml Balance: (+) 620 ml Urine output: 0.13 ml/kg/hr General: AAO x 3. Sitting up comfortably in bed, morbidly obese. NAD. Cooperative. HEENT: Head: normocephalic, atraumatic. Eyes: sclera are nonicteric. Oral Cavity: mucous membranes are now moist with a moist tongue today. Neck: Supple. No JVD. Respiratory: Clear to auscultation bilaterally with no wheezes, rales, or rhonchi. Cardiovascular: (+)S1S2, regular rate and rhythm, with no murmurs, rubs or gallops. Abdomen: Soft, obese, nontender, nondistended, no hepatosplenomegaly appreciated. Normoactive bowel sounds. Extremities: LLE BKA stump site wrapped with bandage/dressings.(+)Edema noted of LLE and 1 (+) pitting edema of RLE. Musculoskeletal: (+)L below the knee amputation. Neurological: No focal neurologic deficits appreciated bilaterally. Laboratory data: CBC is remarkable for WBC 9.9, RBC 2.84 (L), Hgb 8.3 (L), Hct 27.4 (L), MCV 96.5 (H), RDW 15.2 (H), MCHC 30.3 (L), platelets 190. BMP is remarkable for Na 136, K 4.6, CO2 27, BUN 63 (H), Cr 2.28 (H), GFR 22.9 (L), glucose 114 (H), Calcium 8.3 (L), Albumin: 2.3 (L). POC Glucose: 108 Microbiology: Blood Cx showed no growth after 5 days. Cx from L ankle: Gram stain: No cells and no organisms seen Wound Cx: few Staph Aureus (MSSA) Imaging: No new imaging today. Current Inpatient Medications: Cephazolin 1 gm IV q12h Aranesp (Darbepoetin German) 100 mcg Fr@09 SC Ferrous Sulfate 325 mg PO BID Carvedilol 12.5 mg PO BID Isosorbide Mononitrate (Imdur) 30 MG PO DAILY Gabapentin 300 mg PO QAM Gabapentin 600 mg PO QHS Tylenol 650 mg PO q4h PRN pain or fever Diphenhydramine 25 mg PO q6h PRN itching Discontinued Medications: Percocet 5/325 mg PO q4h PRN Morphine Sulfate 2 mg q4h IV PRN New Medications Started: Dilaudid 2 mg q4h PRN PO Moderate/Severe Pain PS 5-10 Venofer (Iron Sucrose) 200 mg/Sodium Chloride 110 mL @ 110 mLs/hr q48h IV Torsemide 20 mg PO daily Assessment/Plan: 1. Osteomyelitis of LLE status-post Below the Knee Amputation of LLE Post- Operative Day #4: Pain better controlled today with increased frequency of dil audid 2 mg PO q4h PRN mod/severe pain. Patient also on PRN tylenol and gabapentin. Patient a bit discouraged today about using the toilet and the difficulty of transferring to it. However, she will be working with PT and rehab now as per primary team note. 2. Acute renal failure superimposed on CKD Stage IV: Renal function is now improving. Creatinine stable and 2.28 today. GFR has gone up from 19.9 to 22.9 today. Urine output was only 400 mL that was recorded. Patient a bit edematous in lower extremities today. Will start low dose diuretic torsemide 20 mg daily. Hold off on spironolactone at this time. Patient will likely eventually need AV graft as she had fistulas that failed in the past as per Dr. Yanez. Will continue to monitor renal function. According to Vascular Surgery note, AV fistula creation possibly next week per Dr. Matthews. 3. Hyponatremia: Sodium WNL at 136 today. Continue to monitor BMP. 4. Hyperkalemia: Potassium WNL at 4.6 today. Will continue to monitor. 4. Lower extremity edema: Had L BKA but has some increased edema from prior in both lower extremities today. Have begun patient on torsemide 20 mg daily for now. Monitor for hypotension and symptoms. 5. Anemia in CKD: Hgb stable at 8.3 today. Iron was low at 29 and transferrin % saturation was low at 10.6 yesterday. Will start IV Iron Sucrose (Venofer) 200 mg/Sodium Chloride q48h IV. Continue to monitor CBC. Continue aranesp 100 mcg SC daily and ferrous sulfate 325 mg PO BID. 6. Osteomyelitis of L foot/L Calcaneal Fracture: Status-post L BKA post-op day # 4. Will still continue IV antibiotic therapy until completion. Currently on cephazolin 1 gm IV q12h. 7. Diabetes mellitus type 2: Controlled and fingersticks stable. Continue current regimen with levemir 30 units SC BID, humalog ISS at AC and QHS. 8. Peripheral Vascular Disease: Appreciate Vascular Surgery input. Continue with recommendations of Vascular Surgery for PVD. My preceptor for this patient encounter was Dr. Deepika Yanez, and was physically present in the building during the encounter and was fully available. As needed, all aspects of the patient interview, examination, medical decision making process, and medical care plan development were reviewed and approved by the preceptor. Preceptor is aware and concurs with the plan as stated in the body of this note and will attest to such by his/her cosignature. A-FIB/CHADSVASC A-FIB History Current/History of A-Fib/PAF?: No Current Oral Anticoagulant The: No VS,Fishbone, I+O VS, Fishbone, I+O Laboratory Tests 06/26/18 07:15 Red Blood Count 2.84 L, Mean Corpuscular Volume 96.5 H, Mean Corpuscular Hemoglobin 29.2, Mean Corpuscular Hemoglobin Concent 30.3 L, Red Cell Distribution Width 15.2 H, Neutrophils (%) (Auto) 71.6 H, Lymphocytes (%) (Auto) 15.6 L, Monocytes (%) (Auto) 8.2 H, Eosinophils (%) (Auto) 3.5 H, Basophils (%) (Auto) 0.5, Neutrophils # (Auto) 7.1, Lymphocytes # (Auto) 1.5, Monocytes # (Auto) 0.8, Eosinophils # (Auto) 0.4, Basophils # (Auto) 0.1, Calcium Level 8.3 L Vital Signs Date Time Temp Pulse Resp B/P (MAP) Pulse Ox O2 Delivery O2 Flow Rate FiO2 06/26/18 13:56 97.7 77 12 108/72 (84) 93 2.0 06/26/18 09:00 Nasal Cannula I&O- Last 24 Hours up to 6 AM 06/26/18 06:00 Intake Total 950 ml Output Total 425 ml Balance 525 ml Attending Note Attending Note A: BETTY on CKD4 S/P Lt BKA Bilat LE edema Iron def anemia P: Start Torsemide 20 mg IV venofer. Pain optimized with Dilaudid. ANDREW LANGE DO June 26, 2018 15:01 DEEPIKA YANEZ MD June 27, 2018 17:29
--- NOTE | 2018-06-26 19:06 | IPNPDOC ---
Subjective Date Seen The patient was seen on 06/26/18. Subjective Chief Complaint/HPI Osteo, s/p BKA Events since last encounter Like yesterday, she continues to have some urinary incontinence when she coughs. She has not been getting up to the commode, secondary to difficulty with transfers, and prefers not to use a bedpan, so probably limited voiding opportunities contribute. Constitutional: Denies: Chills, Fever Pulmonary: Reports: Cough; Denies: Dyspnea Cardiovascular: Denies: Chest Pain Gastrointestinal: Denies: Nausea, Vomiting, Diarrhea, Constipation Genitourinary: Reports: Other Symptoms (urinary incontinence) Psych: Reports: Other Psych (frustrated) Objective Physical Examination General Exam: Positive: Alert, Cooperative (laying in bed when I entered the room), No Acute Distress Eye Exam: Positive: Sclera icteric ENT Exam: Positive: Mucous membr. moist/pink Chest Exam: Positive: Clear to auscultation, Normal air movement Heart Exam: Positive: Rate Normal, Regular Rhythm, Normal S1, Normal S2; Negative: Murmurs, Rubs Abdomen Exam: Positive: Normal bowel sounds, Soft; Negative: Tenderness Extremity Exam: Positive: Other (her left stump was wrapped today. Bandage is clean dry and intact today) Psych Exam: Positive: Mental status NL, Mood NL, Oriented x 3 A-FIB/CHADSVASC A-FIB History Current/History of A-Fib/PAF?: No Assessment /Plan Problems (1) Osteomyelitis of foot, acute Status: Acute Response to Treatment: Stable Problem Text: 06/26: POD 4 Ke AMAYA. Has not worked with PT yet today, and may not over the weekend. I encouraged her to try to get up with a Josselin Stedy, which she was using yesterday. 06/25: POD 3. Pain controlled today. She is working with PT for rehab, though limited in ability to transfer so far. 06/24/18: Pain under better control this afternoon. Dr. Matthews continues to follow. Dressing changed by surgical team this morning. D7 of Cefazolin. Dr. Rodríguez continues to follow 06/23/18: S/P BKA. Patient reports pain in left lower extremity and states nothing is working for her pain. I recommended increasing Morphine to q 2 hours prn and she states Morphine doesn't help the pain and wants Dilaudid. I will discuss with attending 06/22 Plan BKA later today. Though anxious, patient remains consistent in her desire for amputation. 06/21 She is on cefazolin IV twice daily. Dr. Dooley will do a telemedicine consultation on Thursday for advice regarding her wounds and the possibility of hyperbaric oxygen therapy. However this may be unnecessary if she is truly pursuing amputation. I'm not going to cancel the consultation yet because of like her to think about this overnight. I will communicate with Dr. Matthews regarding her wishes; I will modify the consultation request to him. (2) CKD (chronic kidney disease), stage IV Status: Chronic Problem Specific Plan: Consult Specialist Problem Text: 06/26: Renal function again improved. Nephrology consulted. Likely to require dialysis; plan is for Dr. Matthews to take her to the OR for an AV fistula again sometime soon. 06/25: Renal function improved somewhat from yesterday 06/24/18: Nephrology following 06/23/18: Nephrology following. Cre 3.01 today, K+ 5.3. Plan is for dialysis Nephro assisting in management; appreciate their help. They have asked Dr. Matthews to assess her for an AV graft. (3) Anemia Status: Chronic Response to Treatment: Stable Problem Text: 06/24/18: Chronic and secondary to CKD. Hgb slightly worse from baseline. Nephrology has ordered transfusion of 1 unit PRBC. Continue aranesp 100 mcg SC daily and ferrous sulfate 325 mg PO BID. (4) Physical deconditioning Status: Chronic Response to Treatment: Stable Problem Text: PT consulted. Pt is limited physically, will require rehab after DC. (5) Peripheral vascular disease of extremity Status: Chronic Problem Specific Plan: Consult Specialist Problem Text: She has a known history of peripheral vascular disease. I have asked Dr. Matthews to evaluate her left lower extremity to make sure that the blood flow to that area is adequate for: delivery of antibiotic to the area of osteomyelitis, healing from a possible amputation, or optimizing hyperbaric oxyg en treatment. (6) DM2 (diabetes mellitus, type 2) Status: Chronic Problem Text: 06/24/18: Continue SSI Her blood glucose levels very, but are not tremendously high while she is here in the hospital. Continue RISS. Continue Levemir 30 units sq bid (7) Diastolic CHF Status: Chronic Problem Text: 06/25 -- off diuretics secondary to renal failure, appreciate nephrology's assistance She is currently receiving spironolactone and torsemide. Nephrology is assisting with the management of these. (8) Hyperlipidemia Status: Chronic Problem Text: Continue home medications. (9) CAD (coronary artery disease) Status: Chronic Response to Treatment: Stable (10) Left calcaneal fracture Status: Resolved Problem Specific Plan: Consult Specialist Problem Text: Associated with osteo, now s/p BKA 06/22 -- plan amputation She will need to be non-weight bearing on the L foot. P/T is being asked to evaluate her for a knee scooter vs. wheelchair. This may be irrelevant if she chooses amputation. Plan/VTE VTE Prophylaxis Ordered?: Yes (Heparin ) VS, I&O, 24H, Fishbone Vital Signs/I&O Vital Signs Date Time Temp Pulse Resp B/P (MAP) Pulse Ox O2 Delivery O2 Flow Rate FiO2 06/26/18 15:58 17 06/26/18 13:56 97.7 77 108/72 (84) 93 2.0 06/26/18 09:00 Nasal Cannula I&O- Last 24 Hours up to 6 AM 06/26/18 06:00 Intake Total 950 ml Output Total 425 ml Balance 525 ml Laboratory Data 24H LABS Laboratory Tests 2 06/25/18 20:39: Bedside Glucose (Misc Panel) 99 06/26/18 07:15: Immature Granulocyte % (Auto) 0.6, White Blood Count 9.9, Red Blood Count 2.84L, Hemoglobin 8.3L, Hematocrit 27.4L, Mean Corpuscular Volume 96.5H, Mean Corpuscular Hemoglobin 29.2, Mean Corpuscular Hemoglobin Concent 30.3L, Red Cell Distribution Width 15.2H, Platelet Count 190, Neutrophils (%) (Auto) 71.6H, Lymphocytes (%) (Auto) 15.6L, Monocytes (%) (Auto) 8.2H, Eosinophils (%) (Auto) 3.5H, Basophils (%) (Auto) 0.5, Neutrophils # (Auto) 7.1, Lymphocytes # (Auto) 1.5, Monocytes # (Auto) 0.8, Eosinophils # (Auto) 0.4, Basophils # (Auto) 0.1, Nucleated Red Blood Cells % (auto) 0.0, Anion Gap 6L, Glomerular Filtration Rate 22.9L, Blood Urea Nitrogen 63H, Creatinine 2.28H, Sodium Level 136, Potassium Level 4.6, Chloride Level 103, Carbon Dioxide Level 27, Calcium Level 8.3L 06/26/18 11:33: Bedside Glucose (Misc Panel) 108 06/26/18 16:28: Bedside Glucose (Misc Panel) 150H CBC/BMP Laboratory Tests 06/26/18 07:15 Red Blood Count 2.84 L, Mean Corpuscular Volume 96.5 H, Mean Corpuscular Hemoglobin 29.2, Mean Corpuscular Hemoglobin Concent 30.3 L, Red Cell Distribution Width 15.2 H, Neutrophils (%) (Auto) 71.6 H, Lymphocytes (%) (Auto) 15.6 L, Monocytes (%) (Auto) 8.2 H, Eosinophils (%) (Auto) 3.5 H, Basophils (%) (Auto) 0.5, Neutrophils # (Auto) 7.1, Lymphocytes # (Auto) 1.5, Monocytes # (Auto) 0.8, Eosinophils # (Auto) 0.4, Basophils # (Auto) 0.1, Calcium Level 8.3 L Microbiology Microbiology 06/16/18 Blood Culture - Final, Complete NO GROWTH AFTER 5 DAYS 06/16/18 Gram Stain - Final, Complete 06/16/18 Wound Culture - Final, Complete Staphylococcus Aureus MOE TOLENTINO DO June 26, 2018 19:06
[2018-06-26] MEDS: ATORVASTATIN 20 MG TAB PO SCH (21:53)
[2018-06-26] MEDS: CYCLOBENZAPRINE 10 MG TAB PO SCH (21:56)
[2018-06-27] MEDS: HYDROmorphone 2 MG TAB PO PRN ×5 (02:23→22:16)
[2018-06-27 06:00] VITALS: BP 110/70
[2018-06-27] MEDS: SODIUM CHLORIDE 0.9% INJ 10 ML SYR IV SCH ×2 (06:00→17:05)
[2018-06-27] MEDS: HEPARIN SOD (PORCINE) 5000 UNITS/ML VIAL SC SCH ×3 (06:30→22:16)
[2018-06-27 06:48] LABS: BASO # 0.1 10^3/uL (0.0-0.2); BASO % 0.7 % (0.0-1.0); EOS # 0.3 10^3/uL (0.0-0.50); EOS % 4.3 % (0.0-3.0); HEMATOCRIT 28.3 % (36.0-47.0); HEMOGLOBIN 8.8 g/dl (12.0-15.5); LYMPH # 1.3 10^3/uL (1.5-4.5); LYMPH % 17.9 % (24.0-44.0); MEAN CORPUSCULAR HEMOGLOBIN 29.3 pg (27.0-33.0); MEAN CORPUSCULAR HGB CONC 31.1 g/dl (32.0-36.5); MEAN CORPUSCULAR VOLUME 94.3 fl (80.0-96.0); MONO # 0.8 10^3/uL (0.0-0.8); NEUTROPHILS # 4.8 10^3/uL (1.8-7.7); NEUTROPHILS % 65.4 % (36.0-66.0); PLATELET COUNT, AUTOMATED 153 10^3/uL (150-450); WHITE BLOOD COUNT 7.4 10^3/uL (4.0-10.0)
[2018-06-27 07:29] LABS: CALCIUM LEVEL 8.3 MG/DL (8.8-10.2); CREATININE FOR GFR 2.09 MG/DL (0.55-1.30); GLOMERULAR FILTRATION RATE 25.3 (>45); POTASSIUM SERUM 4.8 MEQ/L (3.5-5.1)
[2018-06-27] MEDS: HumaLOG INSULIN (NovoLOG) PER UNIT SC SCH ×4 (08:34→20:43)
[2018-06-27] MEDS: NYSTATIN 500,000 U/5 ML SUSP UDC SS SCH ×4 (08:34→20:42)
[2018-06-27] MEDS: GABAPENTIN 300 MG CAP PO SCH ×2 (08:35→20:43)
[2018-06-27] MEDS: LEVEMIR (INSULIN DETEMIR) 1 UNITS/0.01ML SC SCH ×2 (08:35→20:42)
[2018-06-27] MEDS: PARoxetine 20 MG TAB PO SCH (08:35)
[2018-06-27] MEDS: MAGNESIUM OXIDE 400 MG TAB (MAG-OX) PO SCH (08:35)
[2018-06-27] MEDS: TORSEMIDE 20 MG TAB PO SCH (08:35)
[2018-06-27] MEDS: CARVedilol 12.5 MG TAB PO SCH ×2 (08:36→20:43)
[2018-06-27] MEDS: ISOSORBIDE MON. (IMDUR) 30 MG XR TAB PO SCH (08:36)
[2018-06-27] MEDS: PANTOPRAZOLE 40MG TAB (PROTONIX) PO SCH (08:36)
[2018-06-27] MEDS: FERROUS SULFATE 325MG TAB PO SCH ×2 (08:36→20:43)
[2018-06-27] MEDS: NYSTATIN 100,000 UNITS/GM TOPICAL PWD 15 GM TOP SCH ×2 (08:36→20:42)
[2018-06-27] MEDS: ceFAZolin SOD 1 GM in D5W MINI-BAG PLUS 50 ML IV SCH (09:51)
[2018-06-27] MEDS: MOM 30ML SUSPENSION UDC PO PRN (09:52)
[2018-06-27 14:00] VITALS: BP 137/64
--- NOTE | 2018-06-27 16:50 | IPN ---
DATE: 06/25/2018 Patient was seen in the morning with Clari Mike. She had no new complaints. She does complain of phantom pain, but otherwise is doing well. No nausea, vomiting or diarrhea. No shortness of breath. Yesterday she had intravenous (IV) fluids. Today, she does have increasing lower extremity edema. On physical exam, temperature is 98, pulse 90, respirations 20, blood pressure 149/70, oxygen saturation 100% on 2 liters nasal cannula. HEART: Normal S1, S2. No murmurs appreciated. LUNGS: Diminished at the bases, but clear. No wheezes or rhonchi. ABDOMEN: Obese, soft, nontender. EXTREMITIES: +1 pitting edema bilaterally. Left lower extremity iclql-eak-[id number] amputation (BKA) with blisters measuring about 2 cm around the suture line, fluid-filled, serous. Adaptic was removed and a dry dressing was re-applied. SKIN: No rashes. IMPRESSION: 1. A 67-year-old female with left foot acute osteomyelitis with methicillin-sensitive Staphylococcus aureus (MSSA) and a calcaneus fracture status post BKA doing well. Today the wound was noted to have some blisters which are serous. I suspect this is more related to fluid overload than allergic reaction to the Adaptic dressing that patient thinks has issues with. There is no sign of infection. 2. Chronic kidney disease. Creatinine improved after IV fluids from 3 to 2.57 with IV fluids. LABORATORY DATA: Sodium 134, potassium 4.3, chloride 102, bicarbonate 30, BUN 65, creatinine 2.57, glucose 132, calcium 8.1. Ferritin 520, iron saturation 10.6. White count 10.5, hemoglobin 8, hematocrit 26.6, platelets 196. PLAN: Discontinue IV cefazolin. Doing well postoperatively without evidence of infection. The patient was encouraged to go to acute rehabilitation for physical therapy and not to the half-way as her chances of shorter stay and much faster rehabilitation are much better at the acute rehabilitation unit. Patient is agreeable.
[2018-06-27] MEDS: ATORVASTATIN 20 MG TAB PO SCH (20:42)
[2018-06-27] MEDS: CYCLOBENZAPRINE 10 MG TAB PO SCH (20:43)
[2018-06-27 22:00] VITALS: BP 165/53
--- NOTE | 2018-06-28 02:47 | IPNPDOC ---
Subjective Date Seen The patient was seen on 06/28/18. Subjective Chief Complaint/HPI She has been out of bed with Josselin Dugan to commode and chair today. Reports that she is feeling comfortable. She expects that she might go to the OR for AV fistula Thursday or Thursday. She does note a blistered area on her LLE near the top of the bandages. Constitutional: Denies: Chills, Fever Pulmonary: Denies: Dyspnea, Cough Cardiovascular: Denies: Chest Pain, Palpitations Gastrointestinal: Denies: Nausea, Vomiting, Diarrhea, Constipation Objective Physical Examination General Exam: Positive: Alert, Cooperative (laying in bed when I entered the room), No Acute Distress Eye Exam: Positive: Sclera icteric ENT Exam: Positive: Mucous membr. moist/pink Chest Exam: Positive: Clear to auscultation, Normal air movement Heart Exam: Positive: Rate Normal, Regular Rhythm, Normal S1, Normal S2; Negative: Murmurs, Rubs Abdomen Exam: Positive: Normal bowel sounds, Soft; Negative: Tenderness Extremity Exam: Positive: Other (her left stump was wrapped today. Bandage is clean dry and intact today) Skin Exam: Positive: Other skin issue (blisters LLE) Psych Exam: Positive: Mental status NL, Mood NL, Oriented x 3 A-FIB/CHADSVASC A-FIB History Current/History of A-Fib/PAF?: No Assessment /Plan Problems (1) Osteomyelitis of foot, acute Status: Acute Response to Treatment: Stable Problem Text: 06/27: POD 5 L BKA. Abx DCed by ID. Has gotten out of bed today, with Josselin Dugan. She will require continued rehab after hospital DC. 06/26: POD 4 L KBA. Has not worked with PT yet today, and may not over the weekend. I encouraged her to try to get up with a Josselin Dugan, which she was using yesterday. 06/25: POD 3. Pain controlled today. She is working with PT for rehab, though limited in ability to transfer so far. 06/24/18: Pain under better control this afternoon. Dr. Matthews continues to follow. Dressing changed by surgical team this morning. D7 of Cefazolin. Dr. Anne moserues to follow 06/23/18: S/P BKA. Patient reports pain in left lower extremity and states nothing is working for her pain. I recommended increasing Morphine to q 2 hours prn and she states Morphine doesn't help the pain and wants Dilaudid. I will discuss with attending 06/22 Plan BKA later today. Though anxious, patient remains consistent in her desire for amputation. 06/21 She is on cefazolin IV twice daily. Dr. Dooley will do a telemedicine consultation on Thursday for advice regarding her wounds and the possibility of hyperbaric oxygen therapy. However this may be unnecessary if she is truly pursuing amputation. I'm not going to cancel the consultation yet because of like her to think about this overnight. I will communicate with Dr. Matthews regarding her wishes; I will modify the consultation request to him. (2) CKD (chronic kidney disease), stage IV Status: Chronic Problem Specific Plan: Consult Specialist Problem Text: 06/26: Renal function again improved. Nephrology consulted. Likely to require dialysis; plan is for Dr. Matthews to take her to the OR for an AV fistula again sometime soon. 06/25: Renal function improved somewhat from yesterday 06/24/18: Nephrology following 06/23/18: Nephrology following. Cre 3.01 today, K+ 5.3. Plan is for dialysis Nephro assisting in management; appreciate their help. They have asked Dr. Matthews to assess her for an AV graft. (3) Anemia Status: Chronic Response to Treatment: Stable Problem Text: 06/24/18: Chronic and secondary to CKD. Hgb slightly worse from baseline. Nephrology has ordered transfusion of 1 unit PRBC. Continue aranesp 100 mcg SC daily and ferrous sulfate 325 mg PO BID. (4) Physical deconditioning Status: Chronic Response to Treatment: Stable Problem Text: PT consulted. Pt is limited physically, will require rehab after DC. (5) DM2 (diabetes mellitus, type 2) Status: Chronic Problem Text: 06/24/18: Continue SSI Her blood glucose levels very, but are not tremendously high while she is here in the hospital. Continue RISS. Continue Levemir 30 units sq bid (6) Diastolic CHF Status: Chronic Problem Text: 06/25 -- off diuretics secondary to renal failure, appreciate nephrology's assistance She is currently receiving spironolactone and torsemide. Nephrology is assisting with the management of these. (7) Hyperlipidemia Status: Chronic Problem Text: Continue home medications. (8) CAD (coronary artery disease) Status: Chronic Response to Treatment: Stable (9) Left calcaneal fracture Status: Resolved Problem Specific Plan: Consult Specialist Problem Text: Associated with osteo, now s/p BKA 06/22 -- plan amputation She will need to be non-weight bearing on the L foot. P/T is being asked to evaluate her for a knee scooter vs. wheelchair. This may be irrelevant if she chooses amputation. (10) Peripheral vascular disease of extremity Status: Chronic Problem Specific Plan: Consult Specialist Problem Text: She has a known history of peripheral vascular disease. I have asked Dr. Matthews to evaluate her left lower extremity to make sure that the blood flow to that area is adequate for: delivery of antibiotic to the area of osteomyelitis, healing from a possible amputation, or optimizing hyperbaric oxygen treatment. Plan/VTE VTE Prophylaxis Ordered?: Yes (Heparin ) VS, I&O, 24H, Fishbone Vital Signs/I&O Vital Signs Date Time Temp Pulse Resp B/P (MAP) Pulse Ox O2 Delivery O2 Flow Rate FiO2 06/27/18 22:46 15 06/27/18 22:00 97.0 82 165/53 (90) 95 2.0 06/26/18 09:00 Nasal Cannula I&O- Last 24 Hours up to 6 AM 06/28/18 06:00 Intake Total 1130 ml Output Total 1000 ml Balance 130 ml Laboratory Data 24H LABS Laboratory Tests 2 06/27/18 06:45: Immature Granulocyte % (Auto) 0.7, White Blood Count 7.4, Red Blood Count 3.00L, Hemoglobin 8.8L, Hematocrit 28.3L, Mean Corpuscular Volume 94.3, Mean Corpuscular Hemoglobin 29.3, Mean Corpuscular Hemoglobin Concent 31.1L, Red Cell Distribution Width 14.8H, Platelet Count 153, Neutrophils (%) (Auto) 65.4, Lymphocytes (%) (Auto) 17.9L, Monocytes (%) (Auto) 11.0H, Eosinophils (%) (Auto) 4.3H, Basophils (%) (Auto) 0.7, Neutrophils # (Auto) 4.8, Lymphocytes # (Auto) 1.3L, Monocytes # (Auto) 0.8, Eosinophils # (Auto) 0.3, Basophils # (Auto) 0.1, Nucleated Red Blood Cells % (auto) 0.0, Anion Gap 8, Glomerular Filtration Rate 25.3L, Blood Urea Nitrogen 62H, Creatinine 2.09H, Sodium Level 136, Potassium Le balwinder 4.8, Chloride Level 102, Carbon Dioxide Level 26, Calcium Level 8.3L 06/27/18 11:57: Bedside Glucose (Misc Panel) 220H 06/27/18 16:31: Bedside Glucose (Misc Panel) 234H 06/27/18 19:53: Bedside Glucose (Misc Panel) 150H CBC/BMP Laboratory Tests 06/27/18 06:45 Red Blood Count 3.00 L, Mean Corpuscular Volume 94.3, Mean Corpuscular Hemoglobin 29.3, Mean Corpuscular Hemoglobin Concent 31.1 L, Red Cell Distribution Width 14.8 H, Neutrophils (%) (Auto) 65.4, Lymphocytes (%) (Auto) 17.9 L, Monocytes (%) (Auto) 11.0 H, Eosinophils (%) (Auto) 4.3 H, Basophils (%) (Auto) 0.7, Neutrophils # (Auto) 4.8, Lymphocytes # (Auto) 1.3 L, Monocytes # (Auto) 0.8, Eosinophils # (Auto) 0.3, Basophils # (Auto) 0.1, Calcium Level 8.3 L MOE TOLENTINO DO June 28, 2018 02:47
--- NOTE | 2018-06-28 03:58 | IPN ---
DATE OF SERVICE: 06/27/2018 SUBJECTIVE: The patient is seen and examined this morning at the bedside. She reports debility has not been getting up to the commode secondary to difficulty with transfers. She has been using the bedpan, she states. The patient thinks that her urine output is not being accurately recorded as she states, "I am peeing a lot." She reports the pain is adequately controlled and denies any shortness of breath at rest. VITAL SIGNS: Temperature 97.0, pulse 70, respiratory rate 20, blood pressure 110/70 saturating 97% on 2 liters nasal cannula. Intake yesterday was 1500. Urine output yesterday was 525 and likely not fully recorded. Weight on the bed scale today is not recorded. PHYSICAL EXAMINATION: GENERAL: The patient is seen sitting in bed, head of bed elevated, awake, alert, and oriented in no acute distress. Extraocular muscles are intact. Moist mucous membranes. NECK: Supple. The jugular veins are not elevated. CARDIAC: S1, S2. Regular rate. There is trace to 1+ edema more so on the left lower extremity rather than the right. RESPIRATORY: Lungs are clear to auscultation bilaterally. No rale or rhonchi. ABDOMEN: Soft and obese. There are bowel sounds. EXTREMITIES: There is a left [id number] amputation with dressing. There is 1+ edema on that side. There is only trace edema on the right. NEUROLOGIC: No focal deficits. She is awake, alert, and oriented. There are old failed fistulas in the arms. PSYCHIATRIC: Appropriate with an affect. LABORATORY DATA: Hemoglobin 8.8. Sodium 136, potassium 4.8, bicarbonate 26, BUN 62, creatinine 2.0. INPATIENT MEDICATIONS: Reviewed by myself and are unchanged from prior. PROBLEMS: 1. Chronic kidney disease (CKD) stage IV. Renal function is at baseline. Creatinine is in the low 2s. There is no urgent indication for hemodialysis initiation at this time. Continue with the low dose maintenance diuretics. Torsemide 20 mg by mouth daily and we will monitor her volume status and adjust her diuretics as needed and I will discuss with vascular surgery regarding access placement as the patient does have anticipated dialysis needs in the future. 2. Diastolic congestive heart failure. Volume status is presently acceptable. Continue torsemide 20 mg by mouth daily. Nursing staff is recording the urine output to the bedpan. She has not been getting to the commode. Her daily weights are stable and we will adjust her diuretics as needed. There is no need for dialysis initiation from a volume point of view. 3. Anemia related to iron deficiency, chronic renal failure and inflammation. She is receiving Venofer and Aranesp. Her hemoglobin is suboptimal but stable. There is no need for transfusion at present. 4. Osteomyelitis status post left [id number] amputation managed per primary team and surgery. I note she is off of antibiotics. She reports pain control is adequate. She is working with physical therapy. 5. Hypertension. Blood pressures are acceptable and no changes are being made to her chronic regimen. She continues on carvedilol and Imdur.
[2018-06-28] MEDS: SODIUM CHLORIDE 0.9% INJ 10 ML SYR IV SCH (05:21)
[2018-06-28] MEDS: HEPARIN SOD (PORCINE) 5000 UNITS/ML VIAL SC SCH ×2 (05:22→13:25)
[2018-06-28 05:55] LABS: BASO % 0.4 % (0.0-1.0); EOS # 0.3 10^3/uL (0.0-0.50); EOS % 4.3 % (0.0-3.0); HEMOGLOBIN 7.4 g/dl (12.0-15.5); LYMPH # 1.4 10^3/uL (1.5-4.5); LYMPH % 18.9 % (24.0-44.0); MEAN CORPUSCULAR HEMOGLOBIN 28.8 pg (27.0-33.0); MEAN CORPUSCULAR HGB CONC 30.8 g/dl (32.0-36.5); MEAN CORPUSCULAR VOLUME 93.4 fl (80.0-96.0); MONO # 0.6 10^3/uL (0.0-0.8); MONO % 7.6 % (0.0-5.0); NEUTROPHILS % 68.1 % (36.0-66.0); PLATELET COUNT, AUTOMATED 173 10^3/uL (150-450); RED BLOOD COUNT 2.57 10^6/uL (4.00-5.40); WHITE BLOOD COUNT 7.4 10^3/uL (4.0-10.0)
[2018-06-28 06:00] VITALS: BP 159/53
[2018-06-28 06:08] LABS: CALCIUM LEVEL 8.6 MG/DL (8.8-10.2); CREATININE FOR GFR 2.23 MG/DL (0.55-1.30); GLOMERULAR FILTRATION RATE 23.5 (>45); POTASSIUM SERUM 4.6 MEQ/L (3.5-5.1)
[2018-06-28] MEDS: HumaLOG INSULIN (NovoLOG) PER UNIT SC SCH ×2 (08:38→12:32)
[2018-06-28] MEDS: PANTOPRAZOLE 40MG TAB (PROTONIX) PO SCH (08:39)
[2018-06-28] MEDS: TORSEMIDE 20 MG TAB PO SCH (08:39)
[2018-06-28] MEDS: MAGNESIUM OXIDE 400 MG TAB (MAG-OX) PO SCH (08:39)
[2018-06-28] MEDS: NYSTATIN 500,000 U/5 ML SUSP UDC SS SCH ×2 (08:39→12:32)
[2018-06-28] MEDS: LEVEMIR (INSULIN DETEMIR) 1 UNITS/0.01ML SC SCH (08:39)
[2018-06-28 08:40] VITALS: BP 159/53
[2018-06-28] MEDS: GABAPENTIN 300 MG CAP PO SCH (08:40)
[2018-06-28] MEDS: CARVedilol 12.5 MG TAB PO SCH (08:40)
[2018-06-28] MEDS: ISOSORBIDE MON. (IMDUR) 30 MG XR TAB PO SCH (08:40)
[2018-06-28] MEDS: PARoxetine 20 MG TAB PO SCH (08:40)
[2018-06-28] MEDS: FERROUS SULFATE 325MG TAB PO SCH (08:40)
[2018-06-28] MEDS: NYSTATIN 100,000 UNITS/GM TOPICAL PWD 15 GM TOP SCH (08:41)
[2018-06-28] MEDS: HYDROmorphone 2 MG TAB PO PRN ×2 (08:50→13:25)
[2018-06-28] MEDS ORDERED: DOCUSATE SODIUM 100 MG CAP PO SCH (09:00)
[2018-06-28] MEDS ORDERED: AUGMENTIN 875 MG TAB PO SCH (09:00)
[2018-06-28] MEDS ORDERED: NYST50SS SS (09:36)
[2018-06-28] MEDS ORDERED: PARO20TA3 PO (09:36)
[2018-06-28] MEDS ORDERED: TORS20TA2 PO (09:36)
--- NOTE | 2018-06-28 10:10 | DSES ---
DATE OF ADMISSION: 06/16/2018 DATE OF DISCHARGE: 06/28/2018 HISTORY: This is a 67-year-old female patient who has a history of diabetes mellitus, chronic foot wounds, chronic kidney disease stage IV, who had recently been hospitalized when she returned to the emergency room as she was found to have osteomyelitis of her left foot. After discussion with Dr. Matthews and the primary team, she decided that she was going to undergo a left below the knee amputation (BKA). This was performed by Dr. Matthews who managed the pain control. She is doing well. Dr. Rodríguez has also been involved from infectious disease for management of infection. She has ultimately discontinued, since the BKA, antibiotics and the patient is doing well. She has a history of chronic kidney disease stage IV. She has required dialysis in the past. She is currently making urine and doing well. Although, there are plans for the patient to have an arteriovenous (AV) fistula placed for the anticipated need of dialysis in the near future. She has anemia of chronic disease secondary to chronic kidney disease (CKD). She is on Aranesp as well as ferrous sulfate. Her diabetes has been managed with Levemir as well as sliding scale. She has chronic diastolic congestive heart failure for which she is receiving diuresis. DISCHARGE DIAGNOSIS INCLUDE: Osteomyelitis of the left foot status post left BKA. Chronic kidney disease stage IV. Anemia of chronic disease. Physical deconditioning. Diabetes mellitus type 2. Chronic diastolic congestive heart failure. Hyperlipidemia. Coronary artery disease. Left calcaneal heel fracture. Peripheral vascular disease. DISCHARGE MEDICATIONS INCLUDE: - Nystatin swish and swallow 5 mL four times daily - paroxetine 40 mg daily - Torsemide 20 mg twice daily - acetaminophen 650 mg every 6 hours as needed for pain - atorvastatin 40 mg daily - Coreg 12.5 mg by mouth twice a day - cyclobenzaprine 10 mg nightly - ferrous sulfate 325 mg by mouth twice a day - Sofia-Nicolas one tablet by mouth daily - gabapentin 600 mg by mouth nightly and 300 mg every morning. - glucagon emergency kit - Lantus 30 units subcutaneous twice a day - Humalog sliding scale - isosorbide mononitrate ER 30 mg by mouth daily - magnesium oxide 400 mg by mouth daily - Protonix 40 mg by mouth daily DISCHARGE PLAN: The patient will be transferred to acute rehabilitation unit(ARU) pending insurance approval. Her activity is per Dr. Matthews. Her diet is consistent carbohydrate renal diet. edited: 06/29/2018 [id number]
[2018-06-28] MEDS ORDERED: MIRALAX *UNIT DOSE* 17GM PACKET PO PRN (10:45)
[2018-06-28] MEDS: MOM 30ML SUSPENSION UDC PO PRN (11:22)
[2018-06-28] MEDS: IRON SUCROSE 200 MG in NS 100 ML IV SCH (12:26)
--- NOTE | 2018-06-28 13:15 | IPNPDOC ---
Date Seen The patient was seen on 06/28/18. Progress Note Vascular Surgery Dr Matthews HPI: 67-year-old lady with a past medical history of diabetes, on insulin, hypertension, stage IV chronic kidney disease, follows with Dr. Dong, diabetic neuropathy, hyperlipidemia, who was admitted 06/16/18 with left lateral foot wound and calcaneal fracture. Patient had been seen by podiatry and was sent to the emergency room for further evaluation and treatment related to worsening of her foot wound. Vascular Surgery was consulted to assist with LLE foot wound. Patient is status post left BKA 06/22/[address] Matthews. This morning the patient reports pain is reasonably controlled, worsens with activity. Denies any fevers, chills, weakness, fatigue, Headache, Chest Pain, Shortness of breath, cough, palpitations, abdominal pain, N/V/D or changes in bowel or bladder habits. PAST MEDICAL HISTORY: As mentioned above PAST SURGICAL HISTORY: She has had right 2nd, 4th and 5th toe amputations, left 3rd, 4th, 5th toe amputations plus left ankle sx, a hysterectomy, cholecystectomy, partial appendectomy. PE: GEN: 67yoF, appears stated age. Alert and oriented x 3. HEENT: Normocephalic, atraumatic. Moist mucous membranes. CHEST: Regular rate and rhythm, +S1, +S2 LUNGS: Clear to auscultation bilaterally. No wheezes, rales, or rhonchi. Breathing appears symmetric and easy. ABD: Round, soft, non-tender, non-distended. +Bowel sounds throughout. No rebound or guarding. EXT: Status post left BKA, bandage removed. Wound with minimal bloody drainage. Trinity intact. There are blisters noted at lateral aspects of wound b/l and at the anterior aspect of the wound as well as more proximal on the stump where whitney wrap had touched her skin. Blisters are filled with serous fluid. Dry dressing re applied. 1-2 mm edema noted RLE, edema noted Left thigh and stump as well. SKIN: Dell, dry, warm. No rashes. NEURO: Alert and oriented x 3. No focal deficits appreciated. Left foot MRI 1. Lateral soft tissue edema. There is adjacent edema within the bone marrow of the base of the fifth metatarsal on T2 fat-suppressed and T1-weighted images consistent with acute osteomyelitis. A smaller focus of edema is present within the distal and lateral cuboid also suspicious for acute osteomyelitis. 2. There is a transverse fracture across the calcaneus. Electronically signed by: Prem Valverde On 06/16/2018 21:26:12 PM A&P: 67-year-old lady with a past medical history of diabetes, on insulin, hypertension, stage IV chronic kidney disease, follows with Dr. Dong, diabetic neuropathy, hyperlipidemia, who was admitted 06/16/18 with left lateral foot wound and calcaneal fracture. Patient had been seen by podiatry and was sent to the emergency room for further evaluation and treatment related to worsening of her foot wound. Vascular Surgery is consulted to assist with LLE foot wound. Chronic Left foot wound /Osteomyelitis of L foot, growing MSSA from wound site. Status post left BKA as per Dr. Matthews 06/22/18. POD 6 Patient is afebrile. WBC 7.4 Cephazolin 1 gm IV q12h d/cd 06/27/18. Pain control with Dilaudid to 2 mg Q4 hr prn. Percocet/Morphine/tramadol d/cd. Patient remains on gabapentin 300mg AM/ 600 mg at bedtime. Angiogram completed last admission. No intervention required. ARU screen pending. D/W them this am and they are awaiting ins approval. [facility] brought ampu shield, currently wearing. Dressing change completed this AM. D/W Dr Matthews re her wound, avoid all tape or elastic. Dry dressing applied. Nephrology has adjusted Demadex, stump appears edematous. Augmentin 875 BID x 10 days. Acute renal failure superimposed on CKD Stage IV Scr trend decreased. S/P PRBC 1 u 06/24/18. IVF 06/23/18. Pt appears edematous, Demadex increased today to 20 mg BID. HD access Dr. Yanez has requested vascular surgery to evaluate for AV fistula. Vein mapping completed 05/24/18. AVF creation possibly this week as per Dr Matthews. Anemia in CKD: Hgb 8.0 1 u PRBC 06/24/18. Aranesp/ferrous sulfate Diabetes mellitus type 2 Mgmt as per primary team. DVT prophylaxis. Subcutaneous heparin. A-FIB/CHADSVASC A-FIB History Current/History of A-Fib/PAF?: No VS, I&O, 24H, Fishbone Vital Signs/I&O Vital Signs Date Time Temp Pulse Resp B/P (MAP) Pulse Ox O2 Delivery O2 Flow Rate FiO2 06/28/18 09:20 18 06/28/18 08:40 159/53 06/28/18 08:40 84 06/28/18 07:20 2.0 06/28/18 06:00 97.6 95 06/26/18 09:00 Nasal Cannula I&O- Last 24 Hours up to 6 AM 06/28/18 06:00 Intake Total 1490 ml Output Total 1000 ml Balance 490 ml Laboratory Data 24H LABS Laboratory Tests 2 06/27/18 16:31: Bedside Glucose (Misc Panel) 234H 06/27/18 19:53: Bedside Glucose (Misc Panel) 150H 06/28/18 05:17: Immature Granulocyte % (Auto) 0.7, White Blood Count 7.4, Red Blood Count 2.57L, Hemoglobin 7.4L, Hematocrit 24.0L, Mean Corpuscular Volume 93.4, Mean Corpuscular Hemoglobin 28.8, Mean Corpuscular Hemoglobin Concent 30.8L, Red Cell Distribution Width 14.7H, Platelet Count 173, Neutrophils (%) (Auto) 68.1H, Lymphocytes (%) (Auto) 18.9L, Monocytes (%) (Auto) 7.6H, Eosinophils (%) (Auto) 4.3H, Basophils (%) (Auto) 0.4, Neutrophils # (Auto) 5.0, Lymphocytes # (Auto) 1.4L, Monocytes # (Auto) 0.6, Eosinophils # (Auto) 0.3, Basophils # (Auto) 0.0, Nucleated Red Blood Cells % (auto) 0.0, Anion Gap 4L, Glomerular Filtration Rate 23.5L, Blood Urea Nitrogen 64H, Creatinine 2.23H, Sodium Level 134L, Potassium Level 4.6, Chloride Level 100, Carbon Dioxide Level 30, Calcium Level 8.6L CBC/BMP Laboratory Tests 06/28/18 05:17 Red Blood Count 2.57 L, Mean Corpuscular Volume 93.4, Mean Corpuscular Hemoglob in 28.8, Mean Corpuscular Hemoglobin Concent 30.8 L, Red Cell Distribution Width 14.7 H, Neutrophils (%) (Auto) 68.1 H, Lymphocytes (%) (Auto) 18.9 L, Monocytes (%) (Auto) 7.6 H, Eosinophils (%) (Auto) 4.3 H, Basophils (%) (Auto) 0.4, Neutrophils # (Auto) 5.0, Lymphocytes # (Auto) 1.4 L, Monocytes # (Auto) 0.6, Eosinophils # (Auto) 0.3, Basophils # (Auto) 0.0, Calcium Level 8.6 L Clari Mike June 28, 2018 13:15
--- NOTE | 2018-06-28 13:44 | IPNPDOC ---
Text Note Date of Service The patient was seen on 06/28/18. NOTE Nephrology Service: Subjective: Patient seen and examined at bedside sitting up on bed. Is status post L BKA post-operative day #[address] Matthews. Is having improvement with transfers now and staff are using fredy lift. Is more encouraged today. Urine output is more accurately recorded now. Creatinine is stable at 2.23 today. Is now on torsemide 20 mg PO daily, but now has more lower extremity edema of RLE than prior. Doesn't feel like eating/drinking at times, but weight has still gone up a bit (increase in fluid status). Reports her pain is usually controlled with dilaud id, however, was 8/10 this AM since she did not get a dose of medication while she was asleep overnight. Knows it will help later today. C/o blisters and drainage at E BKA stump site. Her elastic bandage was discontinued due to that. Cephazolin was discontinued by Dr. Rodríguez recently as well as she was not concerned for infection at BKA stump site. Has made 1325 mL urine yesterday. Is normally on 1800 mL fluid restriction and consistent carbohydrate diet. Patient denies chest pain, SOB, headache, fevers, chills, nausea, vomiting, abdominal pain, diarrhea, constipation. Objective: Vitals: T: 97.6 BP: 159/53 RR: 18 P: 84 O2 Saturation: 95% on 2 liters nasal cannula Weight: 129.8 kg today and 126.7 kg on 06/26/18. Intake: 1455 ml Output: 1325 ml Balance: (+) 130 ml Urine output: 0.44 ml/kg/hr General: AAO x 3. Sitting up comfortably on edge of bed, morbidly obese. NAD. Cooperative. HEENT: Head: normocephalic, atraumatic. Eyes: sclera are nonicteric. Oral Cavity: moist mucous membranes with moist tongue today. Neck: Supple. No JVD. Respiratory: Clear to auscultation bilaterally with no wheezes, rales, or rhonchi. Cardiovascular: (+)S1S2, regular rate and rhythm, with no murmurs, rubs or gallops. Abdomen: Soft, obese, nontender, nondistended, no hepatosplenomegaly apprecia crys. Normoactive bowel sounds. Extremities: LLE BKA stump site wrapped with multiple dressings and foam.(+)1 edema noted of LLE and 1 (+) pitting edema of RLE. Musculoskeletal: (+)L below the knee amputation. Neurological: No focal neurologic deficits appreciated bilaterally. Laboratory data: CBC is remarkable for WBC 7.4, Hgb 7.4 (L), platelets 173. BMP is remarkable for Na 134 (L), K 4.6, BUN 64 (H), Cr 2.23 (H), GFR 23.5 (L), glucose 151(H) POC Glucose: 150 (H) Microbiology: Blood Cx showed no growth after 5 days. Cx from L ankle: Gram stain: No cells and no organisms seen Wound Cx: few Staph Aureus (MSSA) Imaging: No new imaging today. Current Inpatient Medications: Aranesp (Darbepoetin German) 100 mcg Fr@09 SC Ferrous Sulfate 325 mg PO BID Carvedilol 12.5 mg PO BID Isosorbide Mononitrate (Imdur) 30 MG PO DAILY Dilaudid 2 mg q4h PRN PO Moderate/Severe Pain PS 5-10 Venofer (Iron Sucrose) 200 mg/Sodium Chloride 110 mL @ 110 mLs/hr q48h IV Gabapentin 300 mg PO QAM Gabapentin 600 mg PO QHS Tylenol 650 mg PO q4h PRN pain or fever Diphenhydramine 25 mg PO q6h PRN itching Discontinued Medications: Cephazolin 1 gm IV q12h Torsemide 20 mg PO daily New Medications Started: Torsemide 20 mg BID PO daily Assessment/Plan: PROBLEMS: 1. Chronic kidney disease (CKD) stage IV: Renal function is now improving. Creatinine stable and 2.28 today. Patient a bit more edematous in lower extr emities today. Have increased torsemide to 20 mg BID. Hold off on spironolactone at this time. Patient will likely eventually need AV graft as she had fistulas that failed in the past as per Dr. Yanez. Will continue to monitor renal function. No urgent indication for hemodialysis today. Monitor volume status and adjust diuretics as necessary. Anticipate dialysis needs in future. Will plan to discuss access placement options with vascular surgery. 2. Diastolic congestive heart failure: No clinical signs of decompensated HF at this point. Volume status acceptable. However, does have more edema noted in lower extremities today. Have increased torsemide to 20 mg BID dosing. Adjust diuretic therapy as necessary. Will continue to monitor electrolytes, daily weights, and urine output. Urine output is acceptable and is more accurately recorded now. Weight was increased at 129.8 kg today. No need for HD at this time from fluid volume status as of yet. 3. Anemia related to iron deficiency, chronic renal failure, inflammation from L BKA stump site: For iron deficiency, continue venofer and ferrous sulfate 325 mg PO BID. For anemia secondary to CKD, continue Aranesp. For inflammation, treat underlying cause. Hemoglobin is low today at 7.4. Hold off on transfusion today. If Hgb drops even more, will plan to transfuse 2 units PRBCs. 4. Osteomyelitis of LLE and L Calcaneal Fracture status-post Below the Knee Amputation of LLE Post-Operative Day #6: Pain usually controlled with dilaudid 2 mg PO q4h PRN mod/severe pain. Patient also on PRN tylenol and gabapentin. P atient working on transfers from bed to commode with Ztory lift. She will be working with PT and rehab. Is off cefazolin as per Dr. Rodríguez. She does report blisters and drainage from L BKA stump site. Will defer management and the need for antibiotic therapy to primary team and Infectious Disease. 5. Hypertension: Blood pressure acceptable, but a bit high at 159/53. Continue carvedilol 12.5 mg BID and Imdur 30 mg daily. No changes made today in antihypertensive regimen. 6. Diabetes mellitus type 2: Controlled and fingersticks stable. Continue current regimen with levemir 30 units SC BID, humalog ISS at AC and QHS. 7. Peripheral Vascular Disease: Appreciate Vascular Surgery input. Continue with recommendations of Vascular Surgery for PVD. My preceptor for this patient encounter was Dr. Chantal Dong, and was physically present in the building during the encounter and was fully available. As needed, all aspects of the patient interview, examination, medical decision making process, and medical care plan development were reviewed and approved by the preceptor. Preceptor is aware and concurs with the plan as stated in the body of this note and will attest to such by his/her cosignature. A-FIB/CHADSVASC A-FIB History Current/History of A-Fib/PAF?: No Current Oral Anticoagulant The: No VS,Fishbone, I+O VS, Fishbone, I+O Laboratory Tests 06/28/18 05:17 Red Blood Count 2.57 L, Mean Corpuscular Volume 93.4, Mean Corpuscular Hemoglobin 28.8, Mean Corpuscular Hemoglobin Concent 30.8 L, Red Cell Distribution Width 14.7 H, Neutrophils (%) (Auto) 68.1 H, Lymphocytes (%) (Auto) 18.9 L, Monocytes (%) (Auto) 7.6 H, Eosinophils (%) (Auto) 4.3 H, Basophils (%) (Auto) 0.4, Neutrophils # (Auto) 5.0, Lymphocytes # (Auto) 1.4 L, Monocytes # (Auto) 0.6, Eosinophils # (Auto) 0.3, Basophils # (Auto) 0.0, Calcium Level 8.6 L Vital Signs Date Time Temp Pulse Resp B/P (MAP) Pulse Ox O2 Delivery O2 Flow Rate FiO2 06/28/18 09:20 18 06/28/18 08:40 159/53 06/28/18 08:40 84 06/28/18 07:20 2.0 06/28/18 06:00 97.6 95 06/26/18 09:00 Nasal Cannula I&O- Last 24 Hours up to 6 AM 06/28/18 06:00 Intake Total 1490 ml Output Total 1000 ml Balance 490 ml ANDREW LANGE DO June 28, 2018 12:47
[2018-06-28 14:00] VITALS: BP 131/52
[2018-06-28 16:28] LABS: C REACTIVE PROTEIN QUANTITATIV 12.9 MG/DL (0.00-0.30)
[2018-06-28] MEDS ORDERED: TORSEMIDE 20 MG TAB PO SCH (17:00)
--- NOTE | 2018-06-30 11:29 | RO ---
DATE OF PROCEDURE: 06/22/2018 ATTENDING SURGEON: Dr. Leeanna Matthews CUSTOMER OPERATIONS INTERN: Helen Todd PREOPERATIVE DIAGNOSIS: Poor IV access. POSTOPERATIVE DIAGNOSIS: Poor IV access. PROCEDURE: Ultrasound-guided right brachial vein midline catheter measuring 12 cm. INDICATION: The patient is a 67-year-old female with chronic renal insufficiency nearing end-stage renal disease and poor IV access who requires access for antibiotic therapy and blood draws. The patient will undergo placement of a midline catheter. Risks, benefits and alternative treatment options were discussed with the patient. ANESTHESIA: Local ESTIMATED BLOOD LOSS: Minimal. IV FLUIDS: None. COMPLICATIONS: None. DRAINS: None. SPECIMENS: None. IMPLANTS: None. DESCRIPTION OF PROCEDURE: The patient was prepped and draped in a standard surgical fashion. The right brachial vein was identified with ultrasound and ultrasound was used to guide cannulation of the right brachial vein after which a 12 cm midline catheter was placed. Both ports were aspirated and noted to aspirate easily and then flushed with heparinized saline. Dressings were then applied. The patient tolerated the procedure well. All instrument, sponge and needle counts were correct at the end the case. There were no complications. Dr. Matthews was present for and directed the entire case. The patient was transferred to the recovery room awake, alert, extubated and in stable condition.
--- NOTE | 2018-06-30 13:03 | RO ---
DATE OF PROCEDURE: 06/22/2018 ATTENDING SURGEON: Dr. Leeanna Matthews MOLD CUTTING MACHINE OPERATOR: None. PREOPERATIVE DIAGNOSES: Left foot gangrene, left calcaneal fracture. POSTOPERATIVE DIAGNOSES: Left foot gangrene, left calcaneal fracture. PROCEDURE: Left below-knee amputation. INDICATION: The patient is a 67-year-old female with a calcaneal fracture and a nonhealing extensive left foot wound with gangrene who will undergo a left below-knee amputation. Risks, benefits, alternative treatment options were discussed with the patient. ANESTHESIA: General endotracheal. ESTIMATED BLOOD LOSS: 300 mL. IV FLUIDS: 1200 mL. SPECIMENS: Left below-knee amputation. DESCRIPTION OF PROCEDURE: The patient was taken to the operating room, placed supine on the operating room table and then prepped and draped in a standard surgical fashion. A left below-knee amputation was performed at approximately 10 cm distal to the tibial tuberosity with a posterior flap created. Once the tibia was transected and the fibular transected 2 cm proximal to the tibial transection, hemostasis was obtained and the flap was approximated to the anterior fascia using #2-0 Vicryl suture in interrupted fashion. The skin was then closed using joselito and #2-0 nylon retention sutures were placed for additional support. Dressings were then applied. The patient tolerated the procedure well. All instrument, sponge and needle counts were correct at the end the case. There were no complications. Dr. Matthews was present for and directed the entire case. The patient was transferred to the recovery room awake, alert, extubated and in stable condition.
== END 2018-06-28 15:55 | DRG 240 ==
LOC: M ED 14:53 → M ED INP 19:30 → M MS4PR 22:00 → M MS5PR 06-22 20:30
PROVIDERS: ADMIT Internal Medicine; ATTEND Family Medicine
PROC: 05H933Z Insertion of Infusion Device into Right Brachial Vein, Percutaneous Approach (ICD-10-PCS; 2018-06-22)
PROC: 0Y6J0Z2 Detachment at Left Lower Leg, Mid, Open Approach (ICD-10-PCS; principal; 2018-06-22 14:30)
PROC: 30233N1 Transfusion of Nonautologous Red Blood Cells into Peripheral Vein, Percutaneous Approach (ICD-10-PCS; 2018-06-24)
DX: E11.51 Type 2 diabetes mellitus with diabetic peripheral angiopathy without gangrene (principal); M86.172 Other acute osteomyelitis, left ankle and foot; I50.32 Chronic diastolic (congestive) heart failure; I13.0 Hypertensive heart and chronic kidney disease with heart failure and stage 1 through stage 4 chronic kidney disease, or unspecified chronic kidney disease; N18.4 Chronic kidney disease, stage 4 (severe); N17.9 Acute kidney failure, unspecified; E87.1 Hypo-osmolality and hyponatremia; E11.22 Type 2 diabetes mellitus with diabetic chronic kidney disease; E11.40 Type 2 diabetes mellitus with diabetic neuropathy, unspecified; I25.10 Atherosclerotic heart disease of native coronary artery without angina pectoris; E11.69 Type 2 diabetes mellitus with other specified complication; B95.61 Methicillin susceptible Staphylococcus aureus infection as the cause of diseases classified elsewhere; D63.1 Anemia in chronic kidney disease; D50.9 Iron deficiency anemia, unspecified; I70.244 Atherosclerosis of native arteries of left leg with ulceration of heel and midfoot; E78.5 Hyperlipidemia, unspecified; Z89.421 Acquired absence of other right toe(s); Z89.422 Acquired absence of other left toe(s); Z90.49 Acquired absence of other specified parts of digestive tract; S92.022A Displaced fracture of anterior process of left calcaneus, initial encounter for closed fracture; Z79.82 Long term (current) use of aspirin; Z79.4 Long term (current) use of insulin; Z79.899 Other long term (current) drug therapy; Z88.5 Allergy status to narcotic agent; Z88.8 Allergy status to other drugs, medicaments and biological substances; Z91.048 Other nonmedicinal substance allergy status; X58.XXXA Exposure to other specified factors, initial encounter; Y92.9 Unspecified place or not applicable

== ENCOUNTER → 2018-06-16 | Outpatient (REF) | payer MEDICARE ==
[~2018-06-16] MED LIST changes: +APAP325T4 PO; +CEPH500C PO; +GLUC1KIT IM; +INSUHUMDS SC; +MAGN400T2 PO; +PANT40TA3 PO
--- NOTE | 2018-06-18 17:59 | CR ---
DATE OF CONSULTATION: 06/17/2018 REQUESTING PHYSICIAN: Dr. Amparo Lopez REASON FOR CONSULTATION: Management of chronic kidney disease (CKD), stage IV, with a history of recent dialysis requirement. HISTORY OF PRESENT ILLNESS: Norma Narayan is well known to me. She is a 67-year-old female with a past medical history of poorly controlled insulin-dependent diabetes, hypertension, diabetic neuropathy, dyslipidemia, history of foot ulcer, secondary hyperparathyroidism, anemia, and diastolic congestive heart failure. She recently had a prolonged stay in the hospital and was discharged on June 12. During that last admission, she was treated for an infected wound on her left foot. She had debridements done and a wound vacuum-assisted closure (VAC) placed. She was seeing Dr. Calixto. She had worsening renal function over that admission and required dialysis, but by the time she was discharged, her Perm-A-Cath was removed, and her creatinine on the day of discharge on June 12 was 2.8. Patient presents to the emergency room (ER) again now with complaint of left lateral foot wound, and her crutching contractor had directed her to come to the ER for further evaluation and treatment. X-ray showed a calcaneal fracture along with osteomyelitis, and labs today show again worsening renal function. Nephrology evaluation was subsequently requested. PAST MEDICAL HISTORY: 1. As mentioned above, insulin-dependent diabetes mellitus. 2. Diabetic neuropathy. 3. Hypertension. 4. Stage IV chronic kidney disease (CKD) . 5. Recent period of dialysis. 6. Dyslipidemia. 7. Diastolic congestive heart failure. 8. Obesity. 9. Left foot wound. 10. Anemia. 11. Secondary hyperparathyroidism or renal origin. PAST SURGICAL HISTORY: 1. Right 2nd, 4th, and 5th toe amputations, left 3rd, 4th, and 5th toe amputations. 2. Hysterectomy. 3. Cholecystectomy. 4. Partial appendectomy. 5. History of two failed fistula creations. ALLERGIES: Tape, CITRIC ACID, HYDROCODONE, SODIUM BICARBONATE. SOCIAL HISTORY: She lives with her . She does not smoke, drink, or use drugs. FAMILY HISTORY: Negative for end-stage renal disease. HOME MEDICATIONS: Reviewed and include torsemide, spironolactone, paroxetine, magnesium oxide, Imdur, gabapentin, ferrous sulfate, carvedilol, calcitriol, Lipitor, aspirin, Sofia-Nicolas, insulin, vitamin D. REVIEW OF SYSTEMS: The patient is generally not feeling well. She is tired and fatigued. She denies fevers or chills. EARS, NOSE, AND THROAT: She denies tinnitus or odynophagia. EYES: She denies visual changes or blurring. CARDIAC: She reports some mild leg edema, especially on the left. She denies dyspnea, shortness of breath, or palpitations. RESPIRATORY: Negative for cough or hemoptysis. GASTROINTESTINAL: Negative for nausea, vomiting, diarrhea. GENITOURINARY: Negative for dysuria or hematuria. ENDOCRINE: Significant for type 2 diabetes, insulin dependent, and secondary hyperparathyroidism. NEUROLOGIC: Negative for seizures or strokes. She does have peripheral neuropathy. MUSCULOSKELETAL: Significant for multiple toe amputations and prolonged left foot wound. HEMATOLOGIC SYSTEM: Significant for anemia. She is not on any anticoagulation. Remainder of review of systems is negative. PHYSICAL EXAMINATION: VITAL SIGNS: Temperature 97.7, pulse 80, respiratory rate 18, blood pressure 139/67, saturating 98% on room air. Intake yesterday was 1 liter. Urine output today thus far is 1 liter. Weight in the bed scale today is 124.6 kg. GENERAL: Patient is seen lying in bed. Head of the bed elevated. Well-built female. Appears stated age in no acute distress. Extraocular muscles are intact. The tongue is moist. NECK: Supple. Jugular veins are not elevated. HEART: Sounds are regular, S1, S2. LUNGS: Show symmetric air entry bilaterally. No crackle, rale, or wheeze. ABDOMEN: Soft. There are bowel sounds. There is no tenderness to palpation. EXTREMITIES: The right lower extremity has trace edema. The left lower extremity is swollen. The left foot is dressed in bandages, and there is bloody discharge noted at the heel. There are toe amputations noted bilaterally. NEUROLOGIC: She is oriented times three at baseline mentation, [id number]. No focal deficit. PSYCHIATRIC: Appropriate mood and affect. LABORATORY DATA: White count 6.6, hemoglobin 8.3, platelets 216. Sodium 132, potassium 3.9, bicarbonate 30, BUN 87, creatinine 3.3. Transferrin saturation 17%, iron is 30. Blood cultures: No growth for 24 hours times one set. IMAGING: Foot MRI June 16: Acute osteomyelitis and transverse fracture across the calcaneus. INPATIENT MEDICATIONS: I discontinued the patient's normal saline. She continues on: - Zosyn 2.25 grams IV every 12 hours - Tylenol as needed - atorvastatin 40 mg by mouth at bedtime - carvedilol 12.5 mg by mouth twice a day - Flexeril 10 mg by mouth at bedtime - Aranesp 100 mcg subcutaneous on Thursday - ferrous sulfate 325 mg by mouth twice a day - gabapentin 600 mg by mouth at bedtime and 300 mg by mouth every morning - heparin 5000 units subcutaneous every 8 hours - insulin - Imdur 30 mg by mouth daily - magnesium oxide 400 mg by mouth daily - Protonix 40 mg by mouth daily - paroxetine 40 mg by mouth daily - tramadol 50 mg by mouth every 6 hours as needed. PROBLEMS: 1. Acute kidney injury (BETTY) on chronic kidney disease (CKD), stage IV. Patient does have recent history of worsening renal function and was hospitalized from May 17 to June 12, and during that admission she did require dialysis. Her discharge creatinine on June 12 was 2.8, and her Perm-A-Cath has been removed. She now has again some worsening of renal function. Her diuretics are presently held, but there is no need for IV fluid (which has been discontinued). She is high risk for again developing dialysis needs, and she is aware of the same, but at present there is no urgent indication for dialysis initiation, and we will continue to monitor the patient. 2. Left foot wound with osteomyelitis and calcaneal fracture. Pain medication as per the primary team. She is followed by podiatry and wound care. Blood cultures have been negative. She is on renally dosed Zosyn. The left leg is swollen as compared to the right, but deep vein thrombosis (DVT) studies were negative. 3. Hypertension. Blood pressures are acceptable. She continues on carvedilol and isosorbide, and no changes are being made. 4. History of diastolic congestive heart failure. Discontinue IV fluids. Patient's volume status is presently acceptable. Will probably need to resume her diuretics in the coming 48 hours or so. At home she takes spironolactone and torsemide. 5. Hyponatremia. It is very mild, and it is related to advanced renal failure, and there is no specific intervention needed. 6. Anemia, normocytic. This is secondary to iron deficiency, advanced chronic renal failure, and inflammatory state. She is ordered for Aranesp, and I will also start her on Venofer. Thank you for involving me in the care Ms. Green. I will be happy to follow her along with you.
== END ==
LOC: M LAB REF 18:04
PROVIDERS: ATTEND Podiatrist
DX: A41.9 Sepsis, unspecified organism (principal)

== ENCOUNTER 2018-06-28 11:12 | Inpatient (IN) | payer MEDICARE ==
[~2018-06-28] VITALS: Ht 177.8 cm; Wt 119.7 kg
[~2018-06-28 11:12] MED LIST changes: +APAP325T4 PO; +GLUC1KIT IM; +NYST50SS SS; +PARO20TA3 PO
[2018-06-28] MEDS ORDERED: MAALOX 30 ML SUSP *UDC PO PRN (12:45)
[2018-06-28] MEDS ORDERED: GLUCAGON FOR INJ 1 MG VIAL (J1610) SC PRN (12:45)
[2018-06-28] MEDS ORDERED: GLUCOSE 4 GM CHEW TABLET PO PRN (12:45)
[2018-06-28] MEDS ORDERED: BISACODYL 10 MG SUPP PR PRN (12:45)
[2018-06-28] MEDS ORDERED: ACETAMINOPHEN 500 MG TAB PO PRN (12:45)
[2018-06-28] MEDS ORDERED: DEXTROSE 50% 50 ML SYRINGE IV PRN (12:45)
--- NOTE | 2018-06-28 12:46 | HPEPDOC ---
Clinical Research Nurse Coordinator Note DATE OF ADMISSION: SOURCE OF ADMISSION INFORMATION: patient and [facility] records CHIEF COMPLAINT: left BKA HISTORY OF PRESENT ILLNESS: 67F pmh poorly controlled DM, CKD[address] followed [address] Dr[address] Dong, HLD, HTN who had a non-healing LLE lateral foot ulcer with calcaneal fracture with wound cultures positive for MSSA with worsening symptoms and sent to [facility] ED on 06/16/18 from her podiatry appointment for further work-up. Foot MRI revealed, Lateral soft tissue edema. There is adjacent edema within the bone marrow of the base of the fifth metatarsalacute osteomyelitis. A smaller focus of edema is present within the distal and lateral cuboid also suspicious for acute osteomyelitis. She was evaluated by ID who recommended IV Cefazolin and Vascular surgery recommended BKA procedure. Her diuretics were held due to worsening kidney function and she was followed by renal for BETTY on CKD and for anemia of chronic disease, receiving Aranesp and Venofer. She underwent a BKA on 06/22/18 without complication, was given gentle hydration post-op to treat BETTY. Patient was taken off IV antibiotics, found to have blisters at her incision site deemed to be non-infectious. She was placed back on oral diuretics, evaluated by therapy, found to have new deficits in gait and ADLs, and deemed medically appropriate for discharge to ARU on 06/28/18. Upon arrival to ARU patient reports she has suffered from blisters for many years and reports that is how all of her toes got infected and later amputated. She believes she has a sulfa sensitivity for which she has gotten rashes in the past and reports being on Lasix for years, although does know if she has a Lasix allergy. She has developed blisters again on the incision line of her left limb BKA immediately post-op and later on her proximal tibia following the placement of the hangar orthotic. REVIEW OF SYSTEMS: The following is a completed review of systems and has been reviewed. Review of systems otherwise unremarkable. PAIN: Patient self reports left leg pain EYES: denies recent vision loss EARS, NOSE, & THROAT: denies dysphagia, hearing loss or rhinorrhea CARDIOVASCULAR: denies chest pain or palpitations PULMONARY: Negative. Denies shortness of breath GASTROINTESTINAL: +constipation GENITOURINARY: Negative for dysuria MUSCULOSKELETAL: left BKA NEUROLOGICAL: peripheral neuropathy HEMATOLOGICAL:+anemia SKIN: LLE incision-line and proximal medial and lateral tibia blisters PSYCHIATRIC: Unremarkable All other review of systems found to be negative. PAST MEDICAL HISTORY: as per HPI PAST SURGICAL HISTORY: multiple toe amputations bilateral feet, left BKA, hysterectomy, ch olecystectomy, appendectomy ALLERGIES: Please see below. MEDICATIONS: Please see below. SOCIAL HISTORY: Lives with , denies ETOH, smoking, or illicit drugs DIET: consistent carb PHYSICAL EXAMINATION: VITAL SIGNS: Please see below. GENERAL: Pleasant and cooperative. No acute distress. HEENT: PERRL. Extraocular movements intact. Clear conjunctiva CARDIOVASCULAR: Regular rate and rhythm. No murmurs, rubs, or gallops LUNGS: Clear to auscultation bilaterally. No wheezes. No rhonchi ABDOMEN: Soft, nontender, mildly-distended. Positive bowel sounds. Normal active bowel sounds] NEUROLOGICAL: Alert and oriented times three. Cranial nerves II through XII grossly intact. Sensation diminished in RLE to light touch and poor proprioception EXTREMITIES: 5\5 strength bilateral upper extremities. 5-\5 strength right lower extremity. 5-/5 strength in left hip flexor and knee extension bilat LE edema right foot with digits 2,3,and 5 amputated SKIN: LLE incision-line and proximal medial and lateral tibia blisters, proximal tibia erythematous patch IMAGING: Imaging documentation personally reviewed by record FUNCTIONAL STATUS: Premorbid: Modified Independent with all activities of daily life as well as mobility using a RW On Admission: Min assist bathing, Total Assist lower body dressing, Min-Mod assist for functional transfers, total assist for toileting GOALS: Mod-I with functional transfers either squat-pivot or using slide board, Supervision with bathing. Mod-I for bed mobility and upper and lower body dressing, Mod-I for toileting. Contact Guard -supervision for ambulation household distances, caregiver training, medical optimization, assess for DME needs. ASSESSMENT:67-year-old F with past medical history of CKD4 and diabetic ulcers d/p multiple amputations who presents status post left BKA PLAN: 1. Rehab: PT/OT, assess for DMEs 2. Neuro: stable- avoid delirogenic meds 3. Cardiac: pmh HTN and HLD continue Imdur, Co-Reg and statin therapy- medicine consulted -last ECHO 04/2018 showing preserved systolic function with mild diastolic function- c/u diuretics 4. resp: encourage incentive spirometry, monitor for infection 5. ID: recent hx of MSSA left foot ulcer s/p BKA and course of IV Cefazoline, per ID recs monitor off antibiotics, however vascular would like a 10-day course of Augmentin 6. Renal: pmh CKD4 with recent emergent dialysis at last hospitalization, s/p gentle hydration with improvements- will consult renal to manage fluid balance and anemia -patient reports long-standing hx of blistering in her feet and limbs while on Lasix/sulfonamide diuretics, (reporting she as a sensitivity to sulfa) which ultimately led to amputations in setting of diabetes and PVD, given concern for preserving current limb and protecting from infection, will discuss possibly switching diuretic choice with renal- currently receiving Torsemide 7. Heme: anemia of chronic disease- renal consulted, c/u Iron 8. GI ppx: protonix- +constipation, will order enema 9. DVT ppx: heparin 10. Endo: porrly controlled DM with neuropathy- c/u insulin and ISS, adjust prn 11. Pain: Dilaudid prn, and will add standing tylenol, f/u Flexeril qHS, c/u gabapentin 12. Psych: depression, c/u Paxil 13. : f/u admission UA and UCx, monitor PVRs 14. Skin: BID skin checks with BID dressing changes, monitor for infection- will hold off on use of Hangar orthotic as poorly fitting and possible causing blister formation on proximal tibia- suspect sulfa allergy contributing to blisters and given hx of blistering in her bilat LEs leading to amputations while on sulfonamide-containing diuretics, will defer to renal on choice of diuretic, given chronic eosinophilia concerned for allergic reaction to sulfa vs bullous pemphigoid reaction to lasix 15. Dispo: TBD POST ADMISSION PHYSICIAN EVALUATION: Medical and functional status: Description of medical status, medical assessment: As above. Rehabilitation diagnosis and current and prior cold morbid medical conditions as above. Risk of complications and plans to mitigate them as above. Description of functional status current status is as above. Prior status as above. Status compared to preadmission: There are no clinically significant differences between the patient's current status and the information described on the preadmission screening document. Treatment plan anticipated: Treatment plan is as described above. Required disciplines including physical therapy, occupational therapy, others as noted above. Intensity of services: 3 hours a day, 6 days a week. Special considerations: There are no specific special or safety considerations that would likely preclude immediate implementation of an intensive rehabili tation program or subsequently influence the plan of care ATTESTATION: Considering all the information above, it is my best judgment that this patient requires intensive rehabilitation therapy as described above and an inpatient hospital environment due to the complexity of nursing, medical, and rehabilitation needs required by the patient. Furthermore, this patient can reasonably be expected to participate in an benefit from an inpatient rehabilitation stay with an interdisciplinary team approach to the delivery of rehabilitation care under the direction and supervision of rehabilitation physician PROGNOSIS: good ESTIMATED LENGTH OF STAY:18-21 days. PROJECTED DISCHARGE DESTINATION: Home with family support and any durable medical equipment required to increase functional safety and mobility TIME SPENT COUNSELING AND COORDINATING INITIAL CARE: Greater than 70 minutes. Vital Signs Vital Signs Date Time Temp Pulse Resp B/P (MAP) Pulse Ox O2 Delivery O2 Flow Rate FiO2 06/28/18 16:00 98.3 75 18 136/64 (88) 94 06/29/18 06:00 2.0 Home Medications Scheduled Atorvastatin Calcium (Atorvastatin Calcium) 40 Mg Tab, 40 MG PO QHS, (Reported) Carvedilol (Coreg) 12.5 Mg Tab, 12.5 MG PO BID, (Reported) Cyclobenzaprine HCl (Cyclobenzaprine HCl) 10 Mg Tab, 10 MG PO QHS, (Reported) Ferrous Sulfate (Ferrous Sulfate) 325 Mg Tab, 325 MG PO BID, (Reported) Folic Acid/Vit B Complex and C (Sofia-Nicolas Tablet) 1 Tab Tab, 1 TAB PO DAILY, (Reported) Gabapentin (Gabapentin) 300 Mg Cap, 600 MG PO QHS, (Reported) Gabapentin (Gabapentin) 300 Mg Cap, 300 MG PO QAM, (Reported) Insulin Glargine,Hum.rec.anlog (Lantus Solostar) 100 Unit/1 Ml Insuln.pen, 30 UNIT SC BID, (Reported) Insulin Human Lispro (Humalog) 100 Unit/1 Ml Vial, 1 DOSE SC AC, (Reported) PER SLIDING SCALE Isosorbide Mononitrate (Isosorbide Mononitrate ER) 30 Mg Tab, 30 MG PO DAILY, (Reported) Magnesium Oxide (Magnesium Oxide) 400 Mg Tab, 400 MG PO DAILY, (Reported) Nystatin (Nystatin Oral Susp) 100,000 Unit/1 Ml Oral.susp, 5 ML SS QID Pantoprazole Sodium (Pantoprazole Sodium) 40 Mg Tablet.dr, 40 MG PO DAILY, (Reported) Paroxetine HCl (Paroxetine HCl) 20 Mg Tablet, 40 MG PO DAILY Torsemide (Torsemide) 20 Mg Tablet, 20 MG PO BID@0900,1700 Scheduled PRN Acetaminophen (Acetaminophen) 325 Mg Tablet, 650 MG PO Q6H PRN for PAIN, (Reported) Glucagon,Human Recombinant (Glucagon Emergency Kit) 1 Mg Vial, 1 MG IM ASDIRECTED PRN for LOW BLOOD SUGAR, (Reported) Allergies Coded Allergies: TAPE (Verified Allergy, Intermediate, RASH, 05/19/18) citric acid (Verified Allergy, Intermediate, HIVES/ITCHING, 05/19/18) sodium bicarbonate (Verified Allergy, Intermediate, HIVES/ITCHING, 05/19/18) Sulfa (Sulfonamide Antibiotics) (Verified Allergy, Mild, 06/28/18) rash hydrocodone (Verified Allergy, Mild, ITCHES, 05/19/18) A-FIB/CHADSVASC A-FIB History Current/History of A-Fib/PAF?: No MAN RESTREPO MD June 28, 2018 12:46
[2018-06-28 16:00] VITALS: BP 136/64
[2018-06-28] MEDS: MULTIVITAMINS/MINERALS THERAP 1 TAB PO SCH (17:08)
[2018-06-28] MEDS: TORSEMIDE 20 MG TAB PO SCH (17:28)
[2018-06-28] MEDS: NYSTATIN 500,000 U/5 ML SUSP UDC PO SCH ×2 (17:28→22:26)
[2018-06-28] MEDS: HumaLOG INSULIN (NovoLOG) PER UNIT SC SCH ×2 (17:29→21:00)
[2018-06-28] MEDS: ACETAMINOPHEN 500 MG TAB PO SCH ×2 (17:30→21:00)
[2018-06-28] MEDS: HYDROmorphone 2 MG TAB PO PRN ×2 (17:30→21:43)
[2018-06-28 18:13] LABS: APPEARANCE, URINE HAZY (CLEAR); BACTERIA, URINE AUTO 1+ (NEGATIVE); BILIRUBIN, URINE AUTO NEGATIVE (NEGATIVE); BLOOD, URINE BLOOD 2+ (NEGATIVE); COLOR, URINE YELLOW (YELLOW); GLUCOSE, URINE (UA) AUTO NEGATIVE (NEGATIVE); KETONE, URINE AUTO NEGATIVE (NEGATIVE); LEUKOCYTE ESTERASE, URINE AUTO 3+ (NEGATIVE); MUCUS, URINE SMALL (NEGATIVE); NITRITE, URINE AUTO NEGATIVE (NEGATIVE); PROTEIN, URINE AUTO NEGATIVE (NEGATIVE); RBC, URINE AUTO 2 /HPF (0-3); SPECIFIC GRAVITY URINE AUTO 1.009 (1.002-1.035); SQUAMOUS EPITHELIAL CELL UR AU 7 /HPF (0-6); UROBILINOGEN, URINE AUTO 0.2 mg/dL (0.0-2.0); WBC, URINE AUTO 80 /HPF (0-3)
[2018-06-28 20:00] VITALS: BP 140/63
[2018-06-28] MEDS: LEVEMIR (INSULIN DETEMIR) 1 UNITS/0.01ML SC SCH (21:00)
[2018-06-28] MEDS: HEPARIN SOD (PORCINE) 5000 UNITS/ML VIAL SC SCH (21:22)
[2018-06-28] MEDS: NYSTATIN 100,000 UNITS/GM TOPICAL PWD 15 GM TOP SCH (21:22)
[2018-06-28] MEDS: AUGMENTIN 500 MG TAB PO SCH (21:22)
[2018-06-28] MEDS: CYCLOBENZAPRINE 10 MG TAB PO SCH (21:23)
[2018-06-28] MEDS: CARVedilol 12.5 MG TAB PO SCH (21:23)
[2018-06-28] MEDS: FERROUS GLUCONATE 324 MG TAB PO SCH (21:23)
[2018-06-28] MEDS: ATORVASTATIN 20 MG TAB PO SCH (21:23)
[2018-06-28] MEDS: GABAPENTIN 300 MG CAP PO SCH (21:23)
[2018-06-28] MEDS: SENNA 8.6 MG TAB (SENOKOT) PO SCH (21:23)
[2018-06-28] MEDS: DOCUSATE SODIUM 100 MG CAP PO SCH (21:23)
[2018-06-28] MEDS: MOM 30ML SUSPENSION UDC PO PRN (21:37)
[2018-06-28] MEDS ORDERED: LEVEMIR (INSULIN DETEMIR) 1 UNITS/0.01ML SC ONE (22:00)
--- NOTE | 2018-06-28 22:51 | IPN ---
DATE: 06/28/2018 Mrs. Narayan was transferred to acute rehab today. She is doing well except for some blisters around the stump and pressure where the prosthetic was placed. She has had no fever or chills. No nausea, vomiting or diarrhea. No abdominal pain. She was started on Augmentin today because of some erythema at the stump. Otherwise she is feeling well. LABORATORY DATA: White count 7.4, hemoglobin 7.4, hematocrit 24, platelets 173. Sodium 134, potassium 4.6, chloride 100, bicarbonate 30, BUN 64, creatinine 2.23, glucose 150, calcium 8.6, CRP has increased from 5.1 to 12.9. Medication Augmentin 875 mg by mouth twice a day was started today by CARISA Wright. PHYSICAL EXAM. Heart: Normal S1, S2. No murmurs. Lungs: Clear. No wheezes, rales or rhonchi. Abdomen: Obese, soft, nontender. Temperature is 97.7. Left stump has blisters around the suture line, has also blistered behind the knee where there was pressure from the orthotics. She also has pitting edema. Some erythema of the stump. IMPRESSION: Status post below-knee amputation with increased erythema and blisters. I suspect this is more related to edema than postoperative wound infection and pressure blisters. PLAN Will avoid all tape and elastic that are causing some pressure sores. I agree with using Augmentin twice a day for the time being. Continue to monitor CBC, CRP. MTDD
[2018-06-29] MEDS ORDERED: SODIUM CHLORIDE 0.9% INJ 10 ML SYR IV PRN (05:45)
[2018-06-29 06:00] VITALS: BP 139/60
[2018-06-29] MEDS: HEPARIN SOD (PORCINE) 5000 UNITS/ML VIAL SC SCH ×3 (06:06→21:21)
[2018-06-29] MEDS: SODIUM CHLORIDE 0.9% INJ 10 ML SYR IV SCH ×2 (06:07→18:00)
[2018-06-29 07:03] LABS: BASO % 0.5 % (0.0-1.0); EOS # 0.3 10^3/uL (0.0-0.50); EOS % 5.1 % (0.0-3.0); HEMOGLOBIN 7.6 g/dl (12.0-15.5); LYMPH # 1.3 10^3/uL (1.5-4.5); MEAN CORPUSCULAR HGB CONC 30.4 g/dl (32.0-36.5); MEAN CORPUSCULAR VOLUME 95.4 fl (80.0-96.0); MONO # 0.5 10^3/uL (0.0-0.8); MONO % 8.2 % (0.0-5.0); NEUTROPHILS # 3.4 10^3/uL (1.8-7.7); NEUTROPHILS % 61.5 % (36.0-66.0); PLATELET COUNT, AUTOMATED 170 10^3/uL (150-450); RED BLOOD COUNT 2.62 10^6/uL (4.00-5.40); WHITE BLOOD COUNT 5.5 10^3/uL (4.0-10.0)
[2018-06-29 07:32] LABS: ALBUMIN 2.1 GM/DL (3.2-5.2); BILIRUBIN,TOTAL 0.5 MG/DL (0.2-1.0); CALCIUM LEVEL 8.6 MG/DL (8.8-10.2); CREATININE FOR GFR 2.33 MG/DL (0.55-1.30); GLOMERULAR FILTRATION RATE 22.3 (>45); POTASSIUM SERUM 4.7 MEQ/L (3.5-5.1); TOTAL PROTEIN 6.8 GM/DL (6.4-8.2)
[2018-06-29] MEDS: MAGNESIUM OXIDE 400 MG TAB (MAG-OX) PO SCH (08:42)
[2018-06-29] MEDS: GABAPENTIN 300 MG CAP PO SCH ×2 (08:42→21:23)
[2018-06-29] MEDS: AUGMENTIN 500 MG TAB PO SCH ×2 (08:42→21:23)
[2018-06-29] MEDS: MULTIVITAMINS/MINERALS THERAP 1 TAB PO SCH (08:43)
[2018-06-29] MEDS: PANTOPRAZOLE 40MG TAB (PROTONIX) PO SCH (08:43)
[2018-06-29] MEDS: CARVedilol 12.5 MG TAB PO SCH ×2 (08:43→21:24)
[2018-06-29] MEDS: TORSEMIDE 20 MG TAB PO SCH ×2 (08:43→17:06)
[2018-06-29] MEDS: DOCUSATE SODIUM 100 MG CAP PO SCH ×2 (08:43→21:24)
[2018-06-29] MEDS: FERROUS GLUCONATE 324 MG TAB PO SCH ×2 (08:43→21:24)
[2018-06-29] MEDS: NYSTATIN 500,000 U/5 ML SUSP UDC PO SCH ×4 (08:44→21:21)
[2018-06-29] MEDS: ISOSORBIDE MON. (IMDUR) 30 MG XR TAB PO SCH (08:44)
[2018-06-29] MEDS: PARoxetine 20 MG TAB PO SCH (08:44)
[2018-06-29] MEDS: HumaLOG INSULIN (NovoLOG) PER UNIT SC SCH ×4 (08:45→21:00)
[2018-06-29] MEDS: ACETAMINOPHEN 500 MG TAB PO SCH ×3 (08:45→21:00)
[2018-06-29] MEDS: LEVEMIR (INSULIN DETEMIR) 1 UNITS/0.01ML SC SCH ×2 (08:46→21:22)
[2018-06-29] MEDS: HYDROmorphone 2 MG TAB PO PRN ×3 (08:55→21:25)
[2018-06-29] MEDS: ANALGESIC BALM CRM 120 GM TOP SCH ×3 (09:00→21:00)
--- NOTE | 2018-06-29 09:16 | IPNPDOC ---
Date Seen The patient was seen on 06/29/18. Progress Note Vascular Surgery Dr Matthews HPI: 67-year-old lady with a past medical history of diabetes, on insulin, hypertension, stage IV chronic kidney disease, follows with Dr. Dong, diabetic neuropathy, hyperlipidemia, who was admitted 06/16/18 with left lateral foot wound and calcaneal fracture. Patient had been seen by podiatry and was sent to the emergency room for further evaluation and treatment related to worsening of her foot wound. Vascular Surgery was consulted to assist with LLE foot wound. Patient is status post left BKA 06/22/[address] Matthews. Transferred to the care of ADAMA Ash, 06/28/18. Denies any fevers, chills, weakness, fatigue, Headache, Chest Pain, Shortness of breath, cough, palpitations, abdominal pain, N/V/D or changes in bowel or bladder habits. PAST MEDICAL HISTORY: As mentioned above PAST SURGICAL HISTORY: She has had right 2nd, 4th and 5th toe amputations, left 3rd, 4th, 5th toe amputations plus left ankle sx, a hysterectomy, cholecystectomy, partial appendectomy. PE: GEN: 67yoF, appears stated age. Alert and oriented x 3. HEENT: Normocephalic, atraumatic. Moist mucous membranes. CHEST: Regular rate and rhythm, +S1, +S2 LUNGS: Clear to auscultation bilaterally. No wheezes, rales, or rhonchi. Breathing appears symmetric and easy. ABD: Round, soft, non-tender, non-distended. +Bowel sounds throughout. No rebound or guarding. EXT: Status post left BKA, bandage intact. tr-1mm pitting edema noted in extremities. SKIN: [place], dry, warm. No rashes. NEURO: Alert and oriented x 3. No focal deficits appreciated. Left foot MRI 1. Lateral soft tissue edema. There is adjacent edema within the bone marrow of the base of the fifth metatarsal on T2 fat-suppressed and T1-weighted images consistent with acute osteomyelitis. A smaller focus of edema is present within the distal and lateral cuboid also suspicious for acute osteomyelitis. 2. There is a transverse fracture across the calcaneus. Electronically signed by: Prem Valverde On 06/16/2018 21:26:12 PM A&P: 67-year-old lady with a past medical history of diabetes, on insulin, hypertension, stage IV chronic kidney disease, follows with Dr. Dong, diabetic neuropathy, hyperlipidemia, who was admitted 06/16/18 with left lateral foot wound and calcaneal fracture. Patient had been seen by podiatry and was sent to the emergency room for further evaluation and treatment related to worsening of her foot wound. Vascular Surgery is consulted to assist with LLE foot wound. Chronic Left foot wound /Osteomyelitis of L foot, growing MSSA from wound site. Status post left BKA as per Dr. Matthews 06/22/18. POD 7 Patient is afebrile. WBC 5.5 Cephazolin 1 gm IV q12h d/cd 06/27/18. Augmentin po BID . Appreciate ID assistance. Pain control with Dilaudid to 2 mg Q4 hr prn. Patient remains on gabapentin 300mg AM/ 600 mg at bedtime. Angiogram completed last admission. No intervention required. [facility] brought ampu shield. Acute renal failure superimposed on CKD Stage IV S/P PRBC 1 u 06/24/18. IVF 06/23/18. Demadex increased to 20 mg BID 06/28/18. edema appears to be improving. HD access Dr. Yanez has requested vascular surgery to evaluate for AV fistula. Vein mapping completed 05/24/18. AVF creation possibly this week as per Dr Matthews. Anemia in CKD: Hgb trend 8, monitor need for transfusion. 1 u PRBC 06/24/18. Aranesp/ferrous sulfate Diabetes mellitus type 2 Mgmt as per primary team. DVT prophylaxis. Subcutaneous heparin. A-FIB/CHADSVASC A-FIB History Current/History of A-Fib/PAF?: No VS, I&O, 24H, Fishbone Vital Signs/I&O Vital Signs Date Time Temp Pulse Resp B/P (MAP) Pulse Ox O2 Delivery O2 Flow Rate FiO2 06/29/18 08:55 20 06/29/18 08:44 139/60 06/29/18 08:43 82 06/29/18 06:00 98.0 98 2.0 I&O- Last 24 Hours up to 6 AM 06/29/18 06:00 Intake Total 120 ml Output Total 1000 ml Balance -880 ml Laboratory Data 24H LABS Laboratory Tests 2 06/28/18 16:59: Bedside Glucose (Misc Panel) 118H 06/28/18 17:43: Urine Appearance HAZY, Urine Color YELLOW, Urine pH 5.0, Urine Specific [place] 1.009, Urine Protein NEGATIVE, Urine Glucose (UA) NEGATIVE, Urine Ketones NEGATIVE, Urine Urobilinogen 0.2, Urine Bilirubin NEGATIVE, Urine Leukocyte Esterase 3+H, Urine Blood 2+H, Urine Nitrite NEGATIVE, Urine WBC (Auto) 80H, Urine RBC (Auto) 2, Urine Hyaline Casts (Auto) 7, Urine Bacteria (Auto) 1+H, Urine Squamous Epithelial Cells 7, Urine Mucus (Auto) SMALL, Urine Sperm (Auto) 06/28/18 20:03: Bedside Glucose (Misc Panel) 114 06/29/18 06:19: Immature Granulocyte % (Auto) 0.7, White Blood Count 5.5, Red Blood Count 2.62L, Hemoglobin 7.6L, Hematocrit 25.0L, Mean Corpuscular Volume 95.4, Mean Corpuscular Hemoglobin 29.0, Mean Corpuscular Hemoglobin Concent 30.4L, Red Cell Distribution Width 14.6H, Platelet Count 170, Neutrophils (%) (Auto) 61.5, Lymphocytes (%) (Auto) 24.0, Monocytes (%) (Auto) 8.2H, Eosinophils (%) (Auto) 5.1H, Basophils (%) (Auto) 0.5, Neutrophils # (Auto) 3.4, Lymphocytes # (Auto) 1.3L, Monocytes # (Auto) 0.5, Eosinophils # (Auto) 0.3, Basophils # (Auto) 0.0, Nucleated Red Blood Cells % (auto) 0.0, Anion Gap 5L, Glomerular Filtration Rate 22.3L, Blood Urea Nitrogen 69H, Creatinine 2.33H, Sodium Level 137, Potassium Level 4.7, Chloride Level 101, Carbon Dioxide Level 31, Calcium Level 8.6L, As partate Amino Transf (AST/SGOT) 26, Alanine Aminotransferase (ALT/SGPT) 8L, Alkaline Phosphatase 88, Total Bilirubin 0.5, Total Protein 6.8, Albumin 2.1L, Albumin/Globulin Ratio 0.45L CBC/BMP Laboratory Tests 06/29/18 06:19 Red Blood Count 2.62 L, Mean Corpuscular Volume 95.4, Mean Corpuscular Hemoglobin 29.0, Mean Corpuscular Hemoglobin Concent 30.4 L, Red Cell Distribution Width 14.6 H, Neutrophils (%) (Auto) 61.5, Lymphocytes (%) (Auto) 24.0, Monocytes (%) (Auto) 8.2 H, Eosinophils (%) (Auto) 5.1 H, Basophils (%) (Auto) 0.5, Neutrophils # (Auto) 3.4, Lymphocytes # (Auto) 1.3 L, Monocytes # (Auto) 0.5, Eosinophils # (Auto) 0.3, Basophils # (Auto) 0.0, Calcium Level 8.6 L, Aspartate Amino Transf (AST/SGOT) 26, Alanine Aminotransferase (ALT/SGPT) 8 L, Alkaline Phosphatase 88, Total Bilirubin 0.5, Total Protein 6.8, Albumin 2.1 L Microbiology Microbiology 06/28/18 Urine Culture, Received Pending Clari Mike June 29, 2018 09:16
--- NOTE | 2018-06-29 11:53 | IPNPDOC ---
Subjective Date Seen The patient was seen on 06/29/18. Subjective Chief Complaint/HPI Patient is a 67-year-old female, past medical history significant for diabetes mellitus, chronic kidney disease stage IV, hypertension, hyperlipidemia, admitted for non-healing left lower extremity ulcer and found to have osteomyelitis requiring below the knee amputation. After surgery, patient was stabilized medically and discharged to inpatient rehabilitation unit for immobilization and strengthening prior to discharge home. Events since last encounter This morning, she is sitting up in chair by bedside complaining of significant bilateral hip pain, left worse than right. Pain medication has been somewhat helpful. Has had physical and occupational therapy this morning. Denies chest pain, denies shortness of breath, denies chills, fever. Objective Physical Examination General Exam: Positive: Alert, Cooperative, No Acute Distress Eye Exam: Positive: PERRLA, EOMI ENT Exam: Positive: Atraumatic, Mucous membr. moist/pink Neck Exam: Positive: Supple; Negative: JVD, thyromegaly, Lymphadenopathy Chest Exam: Positive: Clear to auscultation, Normal air movement; Negative: Rales, Rhonchi, Wheezing Heart Exam: Positive: Rate Normal, Regular Rhythm, Normal S1, Normal S2; Negative: Gallops, Murmurs Abdomen Exam: Positive: Normal bowel sounds, Soft; Negative: Tenderness Extremity Exam: Positive: Other (left BKA); Negative: Edema Skin Exam: Positive: Nl turgor and temperature; Negative: Rash, Breakdown Neuro Exam: Positive: Normal Speech, Cranial Nerves 3-12 NL Psych Exam: Positive: Mental status NL, Oriented x 3; Negative: Anxiety A-FIB/CHADSVASC A-FIB History Current/History of A-Fib/PAF?: No Current Oral Anticoagulant The: No Assessment /Plan Assessment Left lower extremity osteomyelitis -S/P left BKA -Currently in rehabilitation unit for mobilization and strengthening -Management by primary team Diabetes mellitus -Poorly controlled with complications including peripheral vascular disease, most recently a stimulators, requiring amputation -Continue diabetic diet, fingerstick checks prior to meals and at bedtime -Covered with insulin Anemia -Due to chronic disease and underlying chronic kidney disease -Monitor and transfuse for hemodynamic instability Chronic kidney disease -Documented acute kidney injury during admission -Nephrology on board, appreciate input Hypertension -Continue current medications management and monitoring. Obesity -Therapeutic lifestyle changes -Caloric control. Diet DVT prophylaxis -Heparin subcutaneous Plan/VTE VTE Prophylaxis Ordered?: Yes VS, I&O, 24H, Fishbone Vital Signs/I&O Vital Signs Date Time Temp Pulse Resp B/P (MAP) Pulse Ox O2 Delivery O2 Flow Rate FiO2 06/29/18 08:55 20 06/29/18 08:44 139/60 06/29/18 08:43 82 06/29/18 06:00 98.0 98 2.0 I&O- Last 24 Hours up to 6 AM 06/29/18 06:00 Intake Total 120 ml Output Total 1000 ml Balance -880 ml Laboratory Data 24H LABS Laboratory Tests 2 06/28/18 16:59: Bedside Glucose (Misc Panel) 118H 06/28/18 17:43: Urine Appearance HAZY, Urine Color YELLOW, Urine pH 5.0, Urine Specific [place] 1.009, Urine Protein NEGATIVE, Urine Glucose (UA) NEGATIVE, Urine Ketones NEGATIVE, Urine Urobilinogen 0.2, Urine Bilirubin NEGATIVE, Urine Leukocyte Esterase 3+H, Urine Blood 2+H, Urine Nitrite NEGATIVE, Urine WBC (Auto) 80H, Urine RBC (Auto) 2, Urine Hyaline Casts (Auto) 7, Urine Bacteria (Auto) 1+H, Ur ine Squamous Epithelial Cells 7, Urine Mucus (Auto) SMALL, Urine Sperm (Auto) 06/28/18 20:03: Bedside Glucose (Misc Panel) 114 06/29/18 06:19: Immature Granulocyte % (Auto) 0.7, White Blood Count 5.5, Red Blood Count 2.62L, Hemoglobin 7.6L, Hematocrit 25.0L, Mean Corpuscular Volume 95.4, Mean Corpuscular Hemoglobin 29.0, Mean Corpuscular Hemoglobin Concent 30.4L, Red Cell Distribution Width 14.6H, Platelet Count 170, Neutrophils (%) (Auto) 61.5, Lymphocytes (%) (Auto) 24.0, Monocytes (%) (Auto) 8.2H, Eosinophils (%) (Auto) 5.1H, Basophils (%) (Auto) 0.5, Neutrophils # (Auto) 3.4, Lymphocytes # (Auto) 1.3L, Monocytes # (Auto) 0.5, Eosinophils # (Auto) 0.3, Basophils # (Auto) 0.0, Nucleated Red Blood Cells % (auto) 0.0, Anion Gap 5L, Glomerular Filtration Rate 22.3L, Blood Urea Nitrogen 69H, Creatinine 2.33H, Sodium Level 137, Potassium Level 4.7, Chloride Level 101, Carbon Dioxide Level 31, Calcium Level 8.6L, Aspartate Amino Transf (AST/SGOT) 26, Alanine Aminotransferase (ALT/SGPT) 8L, Alkaline Phosphatase 88, Total Bilirubin 0.5, Total Protein 6.8, Albumin 2.1L, Albumin/Globulin Ratio 0.45L 06/29/18 11:29: Bedside Glucose (Misc Panel) 192H CBC/BMP Laboratory Tests 06/29/18 06:19 Red Blood Count 2.62 L, Mean Corpuscular Volume 95.4, Mean Corpuscular Hemoglobin 29.0, Mean Corpuscular Hemoglobin Concent 30.4 L, Red Cell Distribution Width 14.6 H, Neutrophils (%) (Auto) 61.5, Lymphocytes (%) (Auto) 2 4.0, Monocytes (%) (Auto) 8.2 H, Eosinophils (%) (Auto) 5.1 H, Basophils (%) (Auto) 0.5, Neutrophils # (Auto) 3.4, Lymphocytes # (Auto) 1.3 L, Monocytes # (Auto) 0.5, Eosinophils # (Auto) 0.3, Basophils # (Auto) 0.0, Calcium Level 8.6 L, Aspartate Amino Transf (AST/SGOT) 26, Alanine Aminotransferase (ALT/SGPT) 8 L, Alkaline Phosphatase 88, Total Bilirubin 0.5, Total Protein 6.8, Albumin 2.1 L Microbiology Microbiology 06/28/18 Urine Culture, Received Pending [facility] June 29, 2018 11:53
[2018-06-29] MEDS ORDERED: LACTULOSE 20 GM/30 ML SYRUP UD PO PRN (12:15)
[2018-06-29 14:00] VITALS: BP 145/65
[2018-06-29] MEDS: NYSTATIN 100,000 UNITS/GM TOPICAL PWD 15 GM TOP SCH ×2 (14:03→21:26)
[2018-06-29] MEDS ORDERED: FLUCONAZOLE 100 MG TAB PO ONE (15:00)
[2018-06-29 20:00] VITALS: BP 130/60
[2018-06-29] MEDS: MOM 30ML SUSPENSION UDC PO PRN (21:21)
[2018-06-29] MEDS: CYCLOBENZAPRINE 10 MG TAB PO SCH (21:23)
[2018-06-29] MEDS: ATORVASTATIN 20 MG TAB PO SCH (21:23)
[2018-06-29] MEDS: SENNA 8.6 MG TAB (SENOKOT) PO SCH (21:24)
--- NOTE | 2018-06-29 22:09 | IPN ---
DATE: 06/29/2018 SUBJECTIVE: Patient seen and examined this morning at the bedside in the rehabilitation unit. She reports she is getting around a little bit better. A few days ago, she was only able to use the bed edmonds, then she started to transition to the commode and now she is getting to the toilet, of course with the use of various assistive devices. She reports hip pain with physical therapy today. She otherwise denies shortness of breath or dyspnea on exertion. She complains of leg edema. Noted that infectious disease did start her on Augmentin yesterday. VITAL SIGNS: Temperature 98.1, pulse 72, respiratory rate 19, blood pressure 145/65, saturating 91 to 92% on room air. Intake and output yesterday was not fully recorded. Urine output thus far today is 1950 mL. General: The patient is seen sitting out of bed to the chair. She is awake, alert, and oriented, comfortable, in no distress. Extraocular muscles are intact. There is conjunctival pallor. The neck is supple. Jugular veins are not elevated while she is sitting upright. Cardiac: S1, S2, regular rate and rhythm. Lungs are clear to auscultation. No crackles, rales, or wheeze. Abdomen is soft, obese, and nontender. There are bowel sounds. The right lower extremity has 1+ edema. The left stump has dressings on it, and there is palpable pitting edema below the dressings. The wounds were not examined. Neurologic: She is oriented times three. No focal deficits. White count 5.5, hemoglobin 7.6, platelets 170. Sodium 137, potassium 4.7, BUN 69, creatinine 2.3. INPATIENT MEDICATIONS: Reviewed by myself. Noted she was given one dose of Diflucan and started on lactulose as needed for constipation, and started on magnesium oxide 400 mg by mouth daily. However, remainder of medications are unchanged from prior. PROBLEMS: 1. Chronic kidney disease stage IV. Renal function is at known baseline. Electrolytes are acceptable. There are no uremic signs or symptoms. She is hypervolemic on exam with bilateral pitting edema. Continue torsemide 20 mg by mouth twice a day, and if her renal function stays stable, I plan to escalate her diuretic doses. She did previously have an acute kidney injury that required short-term hemodialysis, and she has anticipated chronic hemodialysis needs in the future, though at present they are none. Medications should be dosed for glomerular filtration rate (GFR). 2. Anemia. Related to iron deficiency, advanced chronic kidney disease, chronic inflammatory state, anemia of hemodilution. Patient's hemoglobin is down to 7.6 today. She has received Venofer infusions over the course of this admission. I am reordering Aranesp for her to receive once weekly as well, 100 mcg of Aranesp on Fridays. I also discussed with her regarding blood transfusion, and she is agreeable. We will transfuse her two units at the end of the day today so as not to interrupt her physical therapy. 3. Hypertension. Blood pressures are acceptable. Systolic is 130s to 140s and no changes are being made to the current regimen of carvedilol, Imdur and torsemide. 4. Status post [id number] amputation. Presently receiving acute rehabilitation, and the patient has been having localized erythema and blisters, likely related to edema in the area and also various gauzes, tapes and elastics that are being used. She is followed by infectious disease. She was started on Augmentin yesterday. There is no leukocytosis or fevers. I do not feel that this is related to any diuretic-related allergy. Thank you for involving me in the care of Miss Green. I will be happy to follow her along with you.
[2018-06-30 06:00] VITALS: BP 144/67
[2018-06-30] MEDS: HEPARIN SOD (PORCINE) 5000 UNITS/ML VIAL SC SCH ×3 (06:20→21:00)
[2018-06-30] MEDS: SODIUM CHLORIDE 0.9% INJ 10 ML SYR IV SCH ×2 (06:21→17:51)
--- NOTE | 2018-06-30 08:46 | IPNPDOC ---
Date Seen The patient was seen on 06/30/18. Progress Note Vascular Surgery Dr Matthews HPI: 67-year-old F with a past medical history of diabetes, on insulin, hypertension, stage IV chronic kidney disease, follows with Dr. Dong, diabetic neuropathy, hyperlipidemia, who was admitted 06/16/18 with left lateral foot wound and calcaneal fracture. Patient had been seen by podiatry and was sent to the emergency room for further evaluation and treatment related to worsening of her foot wound. Vascular Surgery was consulted to assist with LLE foot wound. Patient is status post left BKA 06/22/[address] Matthews. Transferred to the care of ADAMA Ash, 06/28/18. Denies any fevers, chills, weakness, fatigue, Headache, Chest Pain, Shortness of breath, cough, palpitations, abdominal pain, N/V/D or changes in bowel or bladder habits. PAST MEDICAL HISTORY: As mentioned above PAST SURGICAL HISTORY: She has had right 2nd, 4th and 5th toe amputations, left 3rd, 4th, 5th toe amputations plus left ankle sx, a hysterectomy, cholecystectomy, partial appendectomy. PE: GEN: 67yoF, appears stated age. Alert and oriented x 3. HEENT: Normocephalic, atraumatic. Moist mucous membranes. CHEST: Regular rate and rhythm, +S1, +S2 LUNGS: Clear to auscultation bilaterally. No wheezes, rales, or rhonchi. Breathing appears symmetric and easy. ABD: Round, soft, non-tender, non-distended. +Bowel sounds throughout. No rebound or guarding. EXT: Status post left BKA, bandage is currently off, blisters appear improved and starting to resolve. Erythema appears decreased, cap refill on stump is good. Tr-1mm pitting edema noted in extremities,edema appears improved. SKIN: [place], dry, warm. NEURO: Alert and oriented x 3. No focal deficits appreciated. Left foot MRI 1. Lateral soft tissue edema. There is adjacent edema within the bone marrow of the base of the fifth metatarsal on T2 fat-suppressed and T1-weighted images consistent with acute osteomyelitis. A smaller focus of edema is present within the distal and lateral cuboid also suspicious for acute osteomyelitis. 2. There is a transverse fracture across the calcaneus. Electronically signed by: Prem Valverde On 06/16/2018 21:26:12 PM A&P: 67-year-old lady with a past medical history of diabetes, on insulin, hypertension, stage IV chronic kidney disease, follows with Dr. Dong, diabetic neuropathy, hyperlipidemia, who was admitted 06/16/18 with left lateral foot wound and calcaneal fracture. Patient had been seen by podiatry and was sent to the emergency room for further evaluation and treatment related to worsening of her foot wound. Vascular Surgery is consulted to assist with LLE foot wound. Chronic Left foot wound /Osteomyelitis of L foot, growing MSSA from wound site. Status post left BKA as per Dr. Matthews 06/22/18. POD 8 Patient is afebrile. WBC 5.5 06/29/18. Cephazolin 1 gm IV q12h d/cd 06/27/18. Augmentin po BID D3/10. Appreciate ID assistance. Pain control with Dilaudid to 2 mg Q4 hr prn. Patient remains on gabapentin 300mg AM/ 600 mg at bedtime. Angiogram completed last admission. No intervention required. [facility] brought ampu shield. Acute renal failure superimposed on CKD Stage IV S/P PRBC 1 u 06/24/18. IVF 06/23/18. Demadex increased to 20 mg BID 06/28/18, edema appears to be improving. HD access Dr. Yanez has requested vascular surgery to evaluate for AV fistula. Vein mapping completed 05/24/18. AVF creation possibly this week as per Dr Matthews. Anemia in CKD Hgb 7.6 1 u PRBC 06/24/18. 2 u PRBC 06/29/18 Aranesp/ferrous sulfate Diabetes mellitus type 2 Mgmt as per primary team. DVT prophylaxis. Subcutaneous heparin. A-FIB/CHADSVASC A-FIB History Current/History of A-Fib/PAF?: No VS, I&O, 24H, Fishbone Vital Signs/I&O Vital Signs Date Time Temp Pulse Resp B/P (MAP) Pulse Ox O2 Delivery O2 Flow Rate FiO2 06/30/18 06:00 97.3 62 19 144/67 (92) 96 2.0 I&O- Last 24 Hours up to 6 AM 06/30/18 06:00 Intake Total 1920 ml Output Total 1550 ml Balance 370 ml Laboratory Data 24H LABS Laboratory Tests 2 06/29/18 11:29: Bedside Glucose (Misc Panel) 192H 06/29/18 16:35: Bedside Glucose (Misc Panel) 147H 06/29/18 19:51: Bedside Glucose (Misc Panel) 195H 06/30/18 06:01: Bedside Glucose (Misc Panel) 198H Microbiology Microbiology 06/28/18 Urine Culture - Final, Complete Serratia Marcescens Clari Mike June 30, 2018 08:46
[2018-06-30] MEDS: TORSEMIDE 20 MG TAB PO SCH (09:09)
[2018-06-30] MEDS: AUGMENTIN 500 MG TAB PO SCH ×2 (09:09→20:54)
[2018-06-30] MEDS: NYSTATIN 500,000 U/5 ML SUSP UDC PO SCH ×4 (09:09→20:54)
[2018-06-30] MEDS: GABAPENTIN 300 MG CAP PO SCH ×2 (09:09→20:56)
[2018-06-30] MEDS: MULTIVITAMINS/MINERALS THERAP 1 TAB PO SCH (09:09)
[2018-06-30] MEDS: PARoxetine 20 MG TAB PO SCH (09:10)
[2018-06-30] MEDS: DOCUSATE SODIUM 100 MG CAP PO SCH ×2 (09:10→20:57)
[2018-06-30] MEDS: ISOSORBIDE MON. (IMDUR) 30 MG XR TAB PO SCH (09:10)
[2018-06-30] MEDS: MAGNESIUM OXIDE 400 MG TAB (MAG-OX) PO SCH (09:10)
[2018-06-30] MEDS: ACETAMINOPHEN 500 MG TAB PO SCH ×3 (09:11→20:58)
[2018-06-30] MEDS: PANTOPRAZOLE 40MG TAB (PROTONIX) PO SCH (09:11)
[2018-06-30] MEDS: FERROUS GLUCONATE 324 MG TAB PO SCH ×2 (09:11→20:56)
[2018-06-30] MEDS: CARVedilol 12.5 MG TAB PO SCH ×2 (09:11→20:55)
[2018-06-30] MEDS: HumaLOG INSULIN (NovoLOG) PER UNIT SC SCH ×4 (09:12→20:53)
[2018-06-30] MEDS: LEVEMIR (INSULIN DETEMIR) 1 UNITS/0.01ML SC SCH ×2 (09:12→20:53)
[2018-06-30] MEDS: NYSTATIN 100,000 UNITS/GM TOPICAL PWD 15 GM TOP SCH ×2 (09:13→20:59)
[2018-06-30] MEDS: ANALGESIC BALM CRM 120 GM TOP SCH ×3 (09:13→20:59)
[2018-06-30 09:31] LABS: BASO # 0.1 10^3/uL (0.0-0.2); BASO % 0.9 % (0.0-1.0); EOS # 0.4 10^3/uL (0.0-0.50); EOS % 5.4 % (0.0-3.0); HEMATOCRIT 31.1 % (36.0-47.0); LYMPH # 1.3 10^3/uL (1.5-4.5); LYMPH % 18.4 % (24.0-44.0); MEAN CORPUSCULAR HEMOGLOBIN 29.5 pg (27.0-33.0); MEAN CORPUSCULAR HGB CONC 31.8 g/dl (32.0-36.5); MEAN CORPUSCULAR VOLUME 92.6 fl (80.0-96.0); MONO # 0.6 10^3/uL (0.0-0.8); MONO % 8.4 % (0.0-5.0); NEUTROPHILS # 4.5 10^3/uL (1.8-7.7); NEUTROPHILS % 65.6 % (36.0-66.0); PLATELET COUNT, AUTOMATED 197 10^3/uL (150-450); RED BLOOD COUNT 3.36 10^6/uL (4.00-5.40); WHITE BLOOD COUNT 6.8 10^3/uL (4.0-10.0)
[2018-06-30 09:38] LABS: HEMOGLOBIN 9.9 g/dl (12.0-15.5)
[2018-06-30 10:01] LABS: CALCIUM LEVEL 8.9 MG/DL (8.8-10.2); CREATININE FOR GFR 2.23 MG/DL (0.55-1.30); GLOMERULAR FILTRATION RATE 23.5 (>45); POTASSIUM SERUM 4.7 MEQ/L (3.5-5.1)
[2018-06-30 10:48] LABS: MAGNESIUM LEVEL 2.7 MG/DL (1.8-2.4)
[2018-06-30 14:00] VITALS: BP 150/75
[2018-06-30] MEDS ORDERED: FOSFOMYCIN TROMETHAMINE 3 GM POWDER PACKET (MONUROL) PO ONE (14:00)
--- NOTE | 2018-06-30 15:53 | IPNPDOC ---
Text Note Date of Service The patient was seen on 06/30/18. NOTE Nephrology Service: Subjective: Patient seen and examined at bedside sitting up on bed. Is status post L BKA post-operative day #[address] Matthews. Is having more improvement with transfers now. Hemodynamically stable. Status-post 2 units PRBC's last night. Urine output very good at 2150 mL. Creatinine is stable at 2.23 today. Reports her pain is 5/10 today. Still has blisters and drainage at LLE BKA stump site. Patient now on augmentin. Still retaining fluid in lower extremities despite torsemide 20 mg BID diuresis. Patient denies chest pain, SOB, headache, fevers, chills, nausea, vomiting, abdominal pain, diarrhea. Admits to constipation and has not had a BM for 8 days. Objective: Vitals: T: 97.3 BP: 144/67 RR: 19 P: 62 O2 Saturation: 96% on 2 liters nasal cannula Weight: 124 kg yesterday Intake: 1410 ml Output: 2150 ml Balance: (-) 740 ml Urine output: 0.72 ml/kg/hr General: AAO x 3. Sitting up comfortably on edge of bed, morbidly obese. NAD. Cooperative. HEENT: Head: normocephalic, atraumatic. Oral Cavity: moist mucous membranes. Neck: Supple. No JVD. Respiratory: Clear to auscultation bilaterally with no wheezes, rales, or rhonchi. Cardiovascular: (+)S1S2, regular rate and rhythm, with no murmurs, rubs or gallops. Abdomen: Soft, obese, nontender, nondistended, no hepatosplenomegaly appreciated. Extremities: LLE BKA stump site wrapped with gauze dressing. (+)1 edema noted of LLE and 1 (+) pitting edema of RLE. Musculoskeletal: (+)L below the knee amputation. Neurological: No focal neurologic deficits appreciated bilaterally. Laboratory data: CBC is remarkable for WBC 6.8, Hgb 9.9 (L), platelets 197. BMP is remarkable for Na 138 (L), K 4.7, BUN 68 (H), Cr 2.23 (H), GFR 23.5 (L), glucose 143(H) POC Glucose: 198 (H) Microbiology: Urine Cx: (+) >100,000 Serratia Marcescens Imaging: No new imaging today. Current Inpatient Medications: Aranesp (Darbepoetin German) 100 mcg Fr@09 SC scheduled for 07/02/18 Ferrous Gluconate 324 mg PO BID Carvedilol 12.5 mg PO BID Isosorbide Mononitrate (Imdur) 30 MG PO QAM Dilaudid 2 mg q4h PRN PO Moderate/Severe Pain PS 5-10 Venofer (Iron Sucrose) 200 mg/Sodium Chloride 110 mL @ 110 mLs/hr q48h IV Lactulose 15 mL daily PO PRN constipation Senna 1 tab PO QHS Augmentin 500 mg PO BID Gabapentin 300 mg PO QAM Gabapentin 600 mg PO QHS Tylenol 650 mg PO q4h PRN pain or fever Discontinued Medications: Torsemide 20 mg PO BID New Medications Started: Torsemide 30 mg BID PO daily Assessment/Plan: PROBLEMS: 1. Chronic kidney disease (CKD) stage IV: Renal function is stable and at baseline. Electrolytes stable. Will get Mg level as receiving daily magnesium. Creatinine stable and 2.23 today. Still hypervolemic with edema in lower extremities today. Have increased torsemide to 30 mg BID. Patient will likely eventually need AV graft as she had fistulas that failed in the past as per Dr. Yanez. Will continue to monitor renal function. No urgent indication for hemodialysis today. Monitor volume status and adjust diuretics as necessary. Anticipate dialysis needs in future. Will plan to discuss access placement options with vascular surgery. Recommend dosing medications for GFR. 2. Diastolic congestive heart failure: No clinical signs of decompensated HF at this point. Volume status acceptable. However, does have more edema noted in lower extremities today. Have increased torsemide to 30 mg BID dosing. Adjust diuretic therapy as necessary. Will continue to monitor electrolytes, daily weights, and urine output. Urine output is acceptable and is more accurately re corded now. No need for HD at this time from fluid volume status as of yet. 3. Anemia related to iron deficiency, chronic renal failure, inflammation from L BKA stump site: For iron deficiency, continue venofer and ferrous sulfate 325 mg PO BID. For anemia secondary to CKD, continue Aranesp 100 mcg which was reordered yesterday once weekly on Fridays. For inflammation, treat underlying cause. Patient was transfused 2 units PRBCs last night and Hgb has gone from 7.6 to 9.9. 4. Osteomyelitis of LLE and L Calcaneal Fracture status-post Below the Knee Amputation of LLE Post-Operative Day #8: Pain controlled with dilaudid 2 mg PO q4h PRN mod/severe pain. Continue with PT and rehab. She does report blisters and drainage from L BKA stump site and is now on augmentin for that. Will defer management and the need for antibiotic therapy to primary team and Infectious Disease. 5. Hypertension: Blood pressure acceptable, but a bit high at 144/67. Continue carvedilol 12.5 mg BID, Imdur 30 mg daily, and torsemide increased dose of 30 mg BID. No changes made today in antihypertensive regimen. 6. Constipation: has had no BM for 8 days. Will stop milk of magnesium and give one dose of 150 mL mag citrate which is a bit more potent laxative. Continue lactulose that was begun yesterday and senna 1 tab QHS. If mag citrate initial dose ineffective, will plan to repeat tomorrow with 300 mL dose. 7. Urine Cx (+) for >100,000 Serratia Marcescens: defer to primary team and infectious disease for management. My preceptor for this patient encounter was Dr. Chantal Dong, and was ph ysically present in the building during the encounter and was fully available. As needed, all aspects of the patient interview, examination, medical decision making process, and medical care plan development were reviewed and approved by the preceptor. Preceptor is aware and concurs with the plan as stated in the body of this note and will attest to such by his/her cosignature. A-FIB/CHADSVASC A-FIB History Current/History of A-Fib/PAF?: No Current Oral Anticoagulant The: No VS,Fishbone, I+O VS, Fishbone, I+O Laboratory Tests 06/30/18 09:19 Red Blood Count 3.36 L, Mean Corpuscular Volume 92.6, Mean Corpuscular Hemoglobin 29.5, Mean Corpuscular Hemoglobin Concent 31.8 L, Red Cell Distribution Width 15.2 H, Neutrophils (%) (Auto) 65.6, Lymphocytes (%) (Auto) 18.4 L, Monocytes (%) (Auto) 8.4 H, Eosinophils (%) (Auto) 5.4 H, Basophils (%) (Auto) 0.9, Neutrophils # (Auto) 4.5, Lymphocytes # (Auto) 1.3 L, Monocytes # (Auto) 0.6, Eosinophils # (Auto) 0.4, Basophils # (Auto) 0.1, Calcium Level 8.9 Vital Signs Date Time Temp Pulse Resp B/P (MAP) Pulse Ox O2 Delivery O2 Flow Rate FiO2 06/30/18 09:11 62 144/67 06/30/18 06:00 97.3 19 96 2.0 I&O- Last 24 Hours up to 6 AM 06/30/18 06:00 Intake Total 1920 ml Output Total 1550 ml Balance 370 ml ANDREW LANGE DO June 30, 2018 13:36
[2018-06-30] MEDS ORDERED: MAGNESIUM CITRATE 300 ML BTL PO ONE (16:00)
[2018-06-30] MEDS: TORSEMIDE 10 MG TABLET PO SCH (16:16)
[2018-06-30 20:00] VITALS: BP 119/53
[2018-06-30] MEDS: CYCLOBENZAPRINE 10 MG TAB PO SCH (20:54)
[2018-06-30] MEDS: HYDROmorphone 2 MG TAB PO PRN (20:56)
[2018-06-30] MEDS: SENNA 8.6 MG TAB (SENOKOT) PO SCH (20:57)
[2018-06-30] MEDS: ATORVASTATIN 20 MG TAB PO SCH (20:58)
[2018-07-01 05:32] VITALS: BP 148/68
[2018-07-01] MEDS: HEPARIN SOD (PORCINE) 5000 UNITS/ML VIAL SC SCH ×3 (05:39→20:17)
[2018-07-01] MEDS: SODIUM CHLORIDE 0.9% INJ 10 ML SYR IV SCH ×2 (05:39→17:38)
[2018-07-01 06:46] LABS: BASO # 0.1 10^3/uL (0.0-0.2); BASO % 0.8 % (0.0-1.0); EOS # 0.5 10^3/uL (0.0-0.50); EOS % 5.7 % (0.0-3.0); HEMATOCRIT 32.2 % (36.0-47.0); LYMPH % 25.1 % (24.0-44.0); MEAN CORPUSCULAR HEMOGLOBIN 29.2 pg (27.0-33.0); MEAN CORPUSCULAR HGB CONC 31.1 g/dl (32.0-36.5); MEAN CORPUSCULAR VOLUME 93.9 fl (80.0-96.0); MONO # 0.6 10^3/uL (0.0-0.8); MONO % 7.8 % (0.0-5.0); NEUTROPHILS # 4.7 10^3/uL (1.8-7.7); NEUTROPHILS % 59.3 % (36.0-66.0); PLATELET COUNT, AUTOMATED 226 10^3/uL (150-450); RED BLOOD COUNT 3.43 10^6/uL (4.00-5.40); WHITE BLOOD COUNT 7.9 10^3/uL (4.0-10.0)
[2018-07-01 07:10] LABS: CALCIUM LEVEL 9.2 MG/DL (8.8-10.2); CREATININE FOR GFR 2.19 MG/DL (0.55-1.30); POTASSIUM SERUM 4.6 MEQ/L (3.5-5.1)
[2018-07-01 08:03] LABS: MAGNESIUM LEVEL 2.5 MG/DL (1.8-2.4)
[2018-07-01] MEDS: TORSEMIDE 10 MG TABLET PO SCH ×2 (09:04→15:56)
[2018-07-01] MEDS: NYSTATIN 500,000 U/5 ML SUSP UDC PO SCH ×4 (09:04→20:16)
[2018-07-01] MEDS: PARoxetine 20 MG TAB PO SCH (09:04)
[2018-07-01] MEDS: PANTOPRAZOLE 40MG TAB (PROTONIX) PO SCH (09:05)
[2018-07-01] MEDS: CARVedilol 12.5 MG TAB PO SCH ×2 (09:05→20:18)
[2018-07-01] MEDS: ISOSORBIDE MON. (IMDUR) 30 MG XR TAB PO SCH (09:05)
[2018-07-01] MEDS: MULTIVITAMINS/MINERALS THERAP 1 TAB PO SCH (09:05)
[2018-07-01] MEDS: FERROUS GLUCONATE 324 MG TAB PO SCH ×2 (09:05→20:18)
[2018-07-01] MEDS: DOCUSATE SODIUM 100 MG CAP PO SCH ×2 (09:05→20:18)
[2018-07-01] MEDS: GABAPENTIN 300 MG CAP PO SCH ×3 (09:05→20:19)
[2018-07-01] MEDS: AUGMENTIN 500 MG TAB PO SCH ×2 (09:05→20:18)
[2018-07-01] MEDS: LEVEMIR (INSULIN DETEMIR) 1 UNITS/0.01ML SC SCH ×2 (09:06→20:16)
[2018-07-01] MEDS: HumaLOG INSULIN (NovoLOG) PER UNIT SC SCH ×4 (09:06→20:20)
[2018-07-01] MEDS: ACETAMINOPHEN 500 MG TAB PO SCH ×3 (09:07→20:19)
[2018-07-01] MEDS: ANALGESIC BALM CRM 120 GM TOP SCH ×3 (09:07→20:21)
[2018-07-01] MEDS: NYSTATIN 100,000 UNITS/GM TOPICAL PWD 15 GM TOP SCH ×2 (09:08→20:20)
[2018-07-01] MEDS: HYDROmorphone 2 MG TAB PO PRN ×2 (09:16→17:17)
--- NOTE | 2018-07-01 09:42 | CR.PDOC ---
PM&R Consult Note Hydro Plant Operator Note DATE OF CONSULTATION: 07/01/18. CONSULTATION REPORT FOR: REASON FOR CONSULTATION: CHIEF COMPLAINT: HISTORY OF PRESENT ILLNESS: . PAST MEDICAL HISTORY: 1. . 2. . 3. . PAST SURGICAL HISTORY: 1. . 2. . 3. . PAST PSYCHIATRIC HISTORY: FAMILY HISTORY: . SOCIAL HISTORY: . REVIEW OF SYSTEMS: CONSTITUTIONAL: . HEENT: . CARDIOVASCULAR: . RESPIRATORY: . GASTROINTESTINAL: . ENDOCRINE: . NEUROLOGICAL: . HEMATOLOGICAL: . PSYCHIATRIC: . GENITOURINARY: . PHYSICAL EXAMINATION: VITAL SIGNS: See Below. GENERAL APPEARANCE: . HEENT: . LUNGS: . HEART: . ABDOMEN: . SKIN: . EXTREMITIES: . NEUROLOGICAL: . LABORATORY DATA: See Below. ASSESSMENT: . PLAN: . Vital Signs Vital Sign - Last 24 Hours 06/30/18 06/30/18 06/30/18 06/30/18 14:00 20:00 20:55 20:56 Temp 97.5 97.0 Pulse 77 68 53 Resp 15 18 18 B/P (MAP) 150/75 (100) 119/53 (75) 119/53 Pulse Ox 93 94 06/30/18 07/01/18 07/01/18 07/01/18 21:26 05:32 09:05 09:05 Temp 97.4 Pulse 69 69 Resp 18 17 B/P (MAP) 148/68 (94) 148/68 148/68 Pulse Ox 90 07/01/18 09:16 Resp 16 Laboratory Data CBC/BMP Laboratory Tests 07/01/18 06:19 Red Blood Count 3.43 L, Mean Corpuscular Volume 93.9, Mean Corpuscular Hemoglobin 29.2, Mean Corpuscular Hemoglobin Concent 31.1 L, Red Cell Distribution Width 15.0 H, Neutrophils (%) (Auto) 59.3, Lymphocytes (%) (Auto) 25.1, Monocytes (%) (Auto) 7.8 H, Eosinophils (%) (Auto) 5.7 H, Basophils (%) (Auto) 0.8, Neutrophils # (Auto) 4.7, Lymphocytes # (Auto) 2.0, Monocytes # (Auto) 0.6, Eosinophils # (Auto) 0.5, Basophils # (Auto) 0.1, Calcium Level 9.2 Labs 24h Laboratory Tests 2 06/30/18 11:50: Bedside Glucose (Misc Panel) 94 5/8/19 16:25: Bedside Glucose (Misc Panel) 198H 06/30/18 19:54: Bedside Glucose (Misc Panel) 249H 07/01/18 06:19: Immature Granulocyte % (Auto) 1.3, White Blood Count 7.9, Red Blood Count 3.43L, Hemoglobin 10.0L, Hematocrit 32.2L, Mean Corpuscular Volume 93.9, Mean Corpuscular Hemoglobin 29.2, Mean Corpuscular Hemoglobin Concent 31.1L, Red Cell Distribution Width 15.0H, Platelet Count 226, Neutrophils (%) (Auto) 59.3, Lymphocytes (%) (Auto) 25.1, Monocytes (%) (Auto) 7.8H, Eosinophils (%) (Auto) 5.7H, Basophils (%) (Auto) 0.8, Neutrophils # (Auto) 4.7, Lymphocytes # (Auto) 2.0, Monocytes # (Auto) 0.6, Eosinophils # (Auto) 0.5, Basophils # (Auto) 0.1, Nucleated Red Blood Cells % (auto) 0.0, Anion Gap 7L, Glomerular Filtration Rate 24.0L, Blood Urea Nitrogen 68H, Creatinine 2.19H, Sodium Level 136, Potassium Level 4.6, Chloride Level 98, Carbon Dioxide Level 31, Calcium Level 9.2, Magnesium Level 2.5H Medications Scheduled Atorvastatin Calcium (Atorvastatin Calcium) 40 Mg Tab, 40 MG PO QHS Carvedilol (Coreg) 12.5 Mg Tab, 12.5 MG PO BID Cyclobenzaprine HCl (Cyclobenzaprine HCl) 10 Mg Tab, 10 MG PO QHS Ferrous Sulfate (Ferrous Sulfate) 325 Mg Tab, 325 MG PO BID Folic Acid/Vit B Complex and C (Sofia-Nicolas Tablet) 1 Tab Tab, 1 TAB PO DAILY Gabapentin (Gabapentin) 300 Mg Cap, 600 MG PO QHS Gabapentin (Gabapentin) 300 Mg Cap, 300 MG PO QAM Insulin Glargine,Hum.rec.anlog (Lantus Solostar) 100 Unit/1 Ml Insuln.pen, 30 UNIT SC BID Insulin Human Lispro (Humalog) 100 Unit/1 Ml Vial, 1 DOSE SC AC PER SLIDING SCALE Isosorbide Mononitrate (Isosorbide Mononitrate ER) 30 Mg Tab, 30 MG PO DAILY Magnesium Oxide (Magnesium Oxide) 400 Mg Tab, 400 MG PO DAILY Nystatin (Nystatin Oral Susp) 100,000 Unit/1 Ml Oral.susp, 5 ML SS QID for 30 Days, #60 Pantoprazole Sodium (Pantoprazole Sodium) 40 Mg Tablet.dr, 40 MG PO DAILY Paroxetine HCl (Paroxetine HCl) 20 Mg Tablet, 40 MG PO DAILY for 30 Days, #60 Torsemide (Torsemide) 20 Mg Tablet, 20 MG PO BID@0900,1700 for 30 Days, #30 Scheduled PRN Acetaminophen (Acetaminophen) 325 Mg Tablet, 650 MG PO Q6H PRN for PAIN Glucagon,Human Recombinant (Glucagon Emergency Kit) 1 Mg Vial, 1 MG IM ASDIRECTED PRN for LOW BLOOD SUGAR Allergies Coded Allergies: TAPE (Verified Allergy, Intermediate, RASH, 05/19/18) citric acid (Verified Allergy, Intermediate, HIVES/ITCHING, 05/19/18) sodium bicarbonate (Verified Allergy, Intermediate, HIVES/ITCHING, 05/19/18) Sulfa (Sulfonamide Antibiotics) (Verified Allergy, Mild, 06/28/18) rash hydrocodone (Verified Allergy, Mild, ITCHES, 05/19/18) MAN RESTREPO MD July 01, 2018 09:42
--- NOTE | 2018-07-01 09:42 | IPNPDOC ---
PM&R Progress Note DATE OF SERVICE: June 30, 2018 Fermentologist Progress Note Subjective: Patient reports residual limb pain, but no fevers or chills and is able to participate in therapy. She reports having had a bowel movement. REVIEW OF SYSTEMS: The following is a completed review of systems and has been reviewed. Review of systems otherwise unremarkable. PAIN: Patient self reports left leg pain EYES: denies recent vision loss EARS, NOSE, & THROAT: denies dysphagia, hearing loss or rhinorrhea CARDIOVASCULAR: denies chest pain or palpitations PULMONARY: Negative. Denies shortness of breath GASTROINTESTINAL: +constipation GENITOURINARY: Negative for dysuria MUSCULOSKELETAL: left BKA NEUROLOGICAL: peripheral neuropathy HEMATOLOGICAL:+anemia SKIN: LLE incision-line and proximal medial and lateral tibia blisters PSYCHIATRIC: Unremarkable All other review of systems found to be negative. PHYSICAL EXAMINATION: VITAL SIGNS: Please see below. GENERAL: Pleasant and cooperative. No acute distress. HEENT: PERRL. Extraocular movements intact. Clear conjunctiva CARDIOVASCULAR: Regular rate and rhythm. No murmurs, rubs, or gallops LUNGS: Clear to auscultation bilaterally. No wheezes. No rhonchi ABDOMEN: Soft, nontender, mildly-distended. Positive bowel sounds. Normal active bowel sounds] NEUROLOGICAL: Alert and oriented times three. Cranial nerves II through XII grossly intact. Sensation diminished in RLE to light touch and poor p roprioception EXTREMITIES: 5\5 strength bilateral upper extremities. 5-\5 strength right lower extremity. 5-/5 strength in left hip flexor and knee extension bilat LE edema right foot with digits 2,3,and 5 amputated SKIN: LLE incision-line and proximal medial, lateral posterior tibia blisters, proximal tibia erythematous patch ASSESSMENT:67-year-old F with past medical history of CKD4 and diabetic ulcers d/p multiple amputations who presents status post left BKA PLAN: 1. Rehab: PT/OT, assess for DMEs, requring a lot of assistance for functional transfers 2. Neuro: stable- avoid delirogenic meds 3. Cardiac: pmh HTN and HLD continue Imdur, Co-Reg and statin therapy- medicine consulted -last ECHO 04/2018 showing preserved systolic function with mild diastolic function- c/u diuretics 4. resp: encourage incentive spirometry, monitor for infection 5. ID: recent hx of MSSA left foot ulcer s/p BKA and course of IV Cefazoline, per ID recs monitor off antibiotics, however vascular would like a 10-day course of Augmentin 6. Renal: pmh CKD4 with recent emergent dialysis at last hospitalization, s/p gentle hydration with improvements- will consult renal to manage fluid balance and anemia -patient reports long-standing hx of blistering in her feet and limbs while on Lasix/sulfonamide diuretics, (reporting she as a sensitivity to sulfa and not clear if she has an allergy to her current medications) which ultimately led to amputations in setting of diabetes and PVD, will defer to renal for choice of diuretics (recs appreciated)and refer to dermatology as an outpatient, upon further questioning patient reports her mother had a skin blistering condition as well. 7. Heme: anemia of chronic disease- renal consulted, c/u Iron 8. GI ppx: protonix- constipation resolved 9. DVT ppx: heparin 10. Endo: poorly controlled DM with neuropathy- c/u insulin and ISS, adjust prn 11. Pain: Dilaudid prn, and will add standing tylenol, f/u Flexeril qHS, c/u gabapentin 12. Psych: depression, c/u Paxil 13. : f/u admission UA and UCx, monitor PVRs 14. Skin: BID skin checks with BID dressing changes, monitor for infection- will hold off on use of Hangar orthotic as poorly fitting and possibly causing blister formation on proximal tibia- suspect sulfa/sulfonamide allergy vs bullous pemphigoid reaction to lasix contributing to blisters although not clear, does have chronic eosinophilia and family hx of blistering condition, will refer to outpatient derm 15. Dispo: TBD Allergies Coded Allergies: TAPE (Verified Allergy, Intermediate, RASH, 05/19/18) citric acid (Verified Allergy, Intermediate, HIVES/ITCHING, 05/19/18) sodium bicarbonate (Verified Allergy, Intermediate, HIVES/ITCHING, 05/19/18) Sulfa (Sulfonamide Antibiotics) (Verified Allergy, Mild, 06/28/18) rash hydrocodone (Verified Allergy, Mild, ITCHES, 05/19/18) Vital Signs Vital Signs Date Time Temp Pulse Resp B/P (MAP) Pulse Ox O2 Delivery O2 Flow Rate FiO2 07/01/18 09:16 16 07/01/18 09:05 148/68 07/01/18 09:05 69 07/01/18 05:32 97.4 90 06/30/18 06:00 2.0 Laboratory Data CBC/BMP Laboratory Tests 07/01/18 06:19 Red Blood Count 3.43 L, Mean Corpuscular Volume 93.9, Mean Corpuscular Hemoglobin 29.2, Mean Corpuscular Hemoglobin Concent 31.1 L, Red Cell Distribution Width 15.0 H, Neutrophils (%) (Auto) 59.3, Lymphocytes (%) (Auto) 25.1, Monocytes (%) (Auto) 7.8 H, Eosinophils (%) (Auto) 5.7 H, Basophils (%) (Auto) 0.8, Neutrophils # (Auto) 4.7, Lymphocytes # (Auto) 2.0, Monocytes # (Auto) 0.6, Eosinophils # (Auto) 0.5, Basophils # (Auto) 0.1, Calcium Level 9.2 Labs 24H Laboratory Tests 2 06/30/18 11:50: Bedside Glucose (Misc Panel) 94 06/30/18 16:25: Bedside Glucose (Misc Panel) 198H 06/30/18 19:54: Bedside Glucose (Misc Panel) 249H 07/01/18 06:19: Immature Granulocyte % (Auto) 1.3, White Blood Count 7.9, Red Blood Count 3.43L, Hemoglobin 10.0L, Hematocrit 32.2L, Mean Corpuscular Volume 93.9, Mean Corpuscular Hemoglobin 29.2, Mean Corpuscular Hemoglobin Concent 31.1L, Red Cell Distribution Width 15.0H, Platelet Count 226, Neutrophils (%) (Auto) 59.3, Lymphocytes (%) (Auto) 25.1, Monocytes (%) (Auto) 7.8H, Eosinophils (%) (Auto) 5.7H, Basophils (%) (Auto) 0.8, Neutrophils # (Auto) 4.7, Lymphocytes # (Auto) 2.0, Monocytes # (Auto) 0.6, Eosinophils # (Auto) 0.5, Basophils # (Auto) 0.1, Nucleated Red Blood Cells % (auto) 0.0, Anion Gap 7L, Glomerular Filtration Rate 24.0L, Blood Urea Nitrogen 68H, Creatinine 2.19H, Sodium Level 136, Potassium Level 4.6, Chloride Level 98, Carbon Dioxide Level 31, Calcium Level 9.2, Magnes ium Level 2.5H Microbiology Microbiology 06/28/18 Urine Culture - Final, Complete Serratia Marcescens Current Medications Current Medications Current Medications Acetaminophen (Tylenol Tab) 650 mg Q24H PRN PO fever; Start 06/28/18 at 12:45 Acetaminophen (Tylenol Tab) 1,000 mg TID PO Last administered on 07/01/18 09:07; Start 06/28/18 at 16:00 Al Hydrox/Mg Hydrox/Simethicone (Mylanta) 30 ml Q4HP PRN PO DYSPEPSIA; Start 06/28/18 at 12:45 Amoxicillin/ Clavulanate Potassium (Augmentin) 500 mg BID PO Last administered on 07/01/18 09:05; Start 06/28/18 at 21:00 Atorvastatin Calcium (Lipitor) 40 mg QHS PO Last administered on 06/30/18at 20:58; Start 06/28/18 at 21:00 Bisacodyl (Dulcolax Suppository) 10 mg DAILYPRN PRN [place] CONSTIPATION; Start 06/28/18 at 12:45 Carvedilol (COReg) 12.5 mg BID PO Last administered on 07/01/18 09:05; Start 06/28/18 at 21:00 Cyclobenzaprine HCl (Flexeril) 10 mg QHS PO Last administered on 06/30/18 20:54; Start 06/28/18 at 21:00 Darbepoetin German (Aranesp) 100 mcg Fr@09 SC ; Start 07/02/18 at 09:00 Dextrose (Dextrose 50%) 25 ml ASDIRECTED PRN IV SEE LABEL COMMENTS; Start 06/28/18 at 12:45 Docusate Sodium (Colace) 100 mg BID PO Last administered on 07/01/18 09:05; Start 06/28/18 at 21:00 Ferrous Gluconate (Fergon) 324 mg BID PO Last administered on 07/01/18 09:05; Start 06/28/18 at 21:00 Gabapentin (Neurontin) 300 mg QAM PO Last administered on 07/01/18 09:05; Start 06/29/18 at 09:00 Gabapentin (Neurontin) 600 mg QHS PO Last administered on 06/30/18at 20:56; Start 06/28/18 at 21:00 Glucagon (Glucagon) 1 mg ASDIRECTED PRN SC SEE LABEL COMMENTS; Start 06/28/18 at 12:45 Glucose (Glucose) 16 GM ASDIRECTED PRN PO SEE LABEL COMMENTS; Start 06/28/18 at 12:45 Heparin Sodium (Heparin (Flush)) 200 units ASDIRECTED PRN IV SEE LABEL COMMENTS Last administered on 06/30/18 02:45; Start 06/29/18 at 05:45 Heparin Sodium (Heparin (Flush)) 200 units PICC IV Last administered on 07/01/18 05:39; Start 06/29/18 at 06:00 Heparin Sodium (Porcine) (Heparin) 5,000 units Q8H SC Last administered on 07/01/18 05:39; Start 06/28/18 at 22:00 Hydromorphone HCl (Dilaudid) 2 mg Q4HP PRN PO MODERATE/SEVERE PAIN (PS 5-10) Last administered on 07/01/18 09:16; Start 06/28/18 at 12:45 Insulin Detemir (Levemir Insulin) 30 units BID SC Last administered on 07/01/18 09:06; Start 06/28/18 at 21:00; Status Future hold Insulin Human Lispro (HumaLOG INSULIN) SEE PROTOCOL TABLE AC SC Last administered on 07/01/18 09:06; Start 06/28/18 at 17:30 Insulin Human Lispro (HumaLOG INSULIN) SEE PROTOCOL TABLE QHS SC ; Start 06/28/18 at 21:00 Isosorbide Mononitrate (Imdur) 30 mg QAM PO Last administered on 07/01/18 09:05; Start 06/29/18 at 09:00 Lactulose (Cephulac) 15 ml DAILYPRN PRN PO CONSTIPATION Last administered on 06/29/18 14:05; Start 06/29/18 at 12:15 Magnesium Hydroxide (Milk Of Magnesia) 30 ml DAILYPRN PRN PO CONSTIPATION Last administered on 06/29/18 21:21; Start 06/28/18 at 12:45; Stop 06/30/18 at 15:54; Status DC Magnesium Oxide (Mag-Ox) 400 mg DAILY PO Last administered on 06/30/18 09:10; Start 06/29/18 at 09:00; Stop 07/01/18 at 04:16; Status DC Menthol/Methyl Salicylate (Bengay Cream) TID TOP Last administered on 07/01/18 09:07; Start 06/29/18 at 09:00 Miscellaneous (Unresolved Clarification Entry) SEE LABEL COMMENTS DAILY XX ; Start 06/29/18 at 09:00; Status Cancel Multivitamins (Theragram-M) 1 tab DAILY PO Last administered on 07/01/18 09:05; Start 06/28/18 at 09:00 Nystatin (Mycostatin Powder, Nystop) groin and abdominal folds BID TOP Last administered on 07/01/18 09:08; Start 06/28/18 at 21:00 Nystatin (Mycostatin) 5 ml QID PO Last administered on 07/01/18 09:04; Start 06/28/18 at 17:00 Pantoprazole Sodium (Protonix) 40 mg DAILY PO Last administered on 07/01/18 09:05; Start 06/29/18 at 09:00 Paroxetine HCl (PAXil) 40 mg DAILY PO Last administered on 07/01/18 09:04; Start 06/29/18 at 09:00 Senna (Senokot) 1 tab QHS PO Last administered on 06/29/18 21:24; Start 06/28/18 at 21:00 Sodium Chloride (Saline Lock Flush) 10 ml ASDIRECTED PRN IV SEE LABEL COMMENTS Last administered on 06/30/18 02:46; Start 06/29/18 at 05:45 Sodium Chloride (Saline Lock Flush) 10 ml PICC IV Last administered on 07/01/18 05:39; Start 06/29/18 at 06:00 Torsemide (Demadex) 20 mg BID@,17 PO Last administered on 06/30/18 09:09; Start 06/28/18 at 17:00; Stop 06/30/18 at 10:29; Status DC Torsemide (Demadex) 30 mg BID@,17 PO Last administered on 07/01/18 09:04; S tart 06/30/18 at 17:00 A-FIB/CHADSVASC A-FIB History Current/History of A-Fib/PAF?: No BRANDT-ELISA,AMN MD July 01, 2018 09:42
[2018-07-01 15:42] VITALS: BP 140/66
[2018-07-01 20:00] VITALS: BP 147/62
[2018-07-01] MEDS: CYCLOBENZAPRINE 10 MG TAB PO SCH (20:17)
[2018-07-01] MEDS: SENNA 8.6 MG TAB (SENOKOT) PO SCH (20:17)
[2018-07-01] MEDS: ATORVASTATIN 20 MG TAB PO SCH (20:18)
[2018-07-02] MEDS: HEPARIN SOD (PORCINE) 5000 UNITS/ML VIAL SC SCH ×3 (05:34→22:28)
[2018-07-02] MEDS: GABAPENTIN 300 MG CAP PO SCH (05:35)
[2018-07-02 06:00] VITALS: BP 160/73
[2018-07-02 06:26] LABS: BASO # 0.1 10^3/uL (0.0-0.2); BASO % 0.9 % (0.0-1.0); EOS # 0.4 10^3/uL (0.0-0.50); EOS % 6.1 % (0.0-3.0); HEMATOCRIT 30.9 % (36.0-47.0); HEMOGLOBIN 9.5 g/dl (12.0-15.5); LYMPH # 1.5 10^3/uL (1.5-4.5); LYMPH % 21.8 % (24.0-44.0); MEAN CORPUSCULAR HGB CONC 30.7 g/dl (32.0-36.5); MEAN CORPUSCULAR VOLUME 94.2 fl (80.0-96.0); MONO # 0.6 10^3/uL (0.0-0.8); MONO % 9.1 % (0.0-5.0); NEUTROPHILS # 4.2 10^3/uL (1.8-7.7); NEUTROPHILS % 60.9 % (36.0-66.0); PLATELET COUNT, AUTOMATED 208 10^3/uL (150-450); RED BLOOD COUNT 3.28 10^6/uL (4.00-5.40); WHITE BLOOD COUNT 6.9 10^3/uL (4.0-10.0)
[2018-07-02 06:45] LABS: CREATININE FOR GFR 2.2 MG/DL (0.55-1.30); GLOMERULAR FILTRATION RATE 23.8 (>45); POTASSIUM SERUM 4.3 MEQ/L (3.5-5.1)
[2018-07-02] MEDS: HYDROmorphone 2 MG TAB PO PRN ×3 (08:35→20:37)
[2018-07-02] MEDS: HumaLOG INSULIN (NovoLOG) PER UNIT SC SCH ×4 (08:36→20:37)
[2018-07-02] MEDS: LEVEMIR (INSULIN DETEMIR) 1 UNITS/0.01ML SC SCH ×2 (08:36→20:37)
[2018-07-02] MEDS: PARoxetine 20 MG TAB PO SCH (09:37)
[2018-07-02] MEDS: CARVedilol 12.5 MG TAB PO SCH ×2 (09:38→20:36)
[2018-07-02] MEDS: PANTOPRAZOLE 40MG TAB (PROTONIX) PO SCH (09:38)
[2018-07-02] MEDS: FERROUS GLUCONATE 324 MG TAB PO SCH ×2 (09:38→20:36)
[2018-07-02] MEDS: ACETAMINOPHEN 500 MG TAB PO SCH ×3 (09:38→20:37)
[2018-07-02] MEDS: ISOSORBIDE MON. (IMDUR) 30 MG XR TAB PO SCH (09:38)
[2018-07-02] MEDS: DARBEPOETIN 100 MCG/0.5 ML *NON-DIALYSIS* SYRINGE (J0881) SC SCH (09:38)
[2018-07-02] MEDS: AUGMENTIN 500 MG TAB PO SCH ×2 (09:38→20:35)
[2018-07-02] MEDS: NYSTATIN 500,000 U/5 ML SUSP UDC PO SCH ×4 (09:38→20:35)
[2018-07-02] MEDS: TORSEMIDE 10 MG TABLET PO SCH ×2 (09:39→17:22)
[2018-07-02] MEDS: MULTIVITAMINS/MINERALS THERAP 1 TAB PO SCH (09:39)
[2018-07-02] MEDS: DOCUSATE SODIUM 100 MG CAP PO SCH ×2 (09:39→21:00)
[2018-07-02] MEDS: NYSTATIN 100,000 UNITS/GM TOPICAL PWD 15 GM TOP SCH ×2 (09:40→20:38)
[2018-07-02] MEDS: ANALGESIC BALM CRM 120 GM TOP SCH ×3 (09:40→20:37)
--- NOTE | 2018-07-02 10:08 | IPNPDOC ---
Subjective Date Seen The patient was seen on 07/02/18. Subjective Chief Complaint/HPI Pt this morning without new concerns. She is feeling well. Clari from vascular surg has been in as well as Dr Rodríguez, ID both happy with progress. General: Denies: Fatigue Constitutional: Denies: Chills, Fever Pulmonary: Denies: Dyspnea, Cough Cardiovascular: Denies: Chest Pain, Palpitations Gastrointestinal: Denies: Nausea, Vomiting, Diarrhea Neurological: Denies: Weakness Psych: Reports: Mood Normal Objective Physical Examination General Exam: Positive: Alert, Cooperative, No Acute Distress ENT Exam: Positive: Atraumatic, Mucous membr. moist/pink Neck Exam: Positive: Supple; Negative: JVD, thyromegaly, Lymphadenopathy Chest Exam: Positive: Clear to auscultation, Normal air movement; Negative: Rales, Rhonchi, Wheezing Heart Exam: Positive: Rate Normal, Regular Rhythm, Normal S1, Normal S2; Negative: Gallops, Murmurs Abdomen Exam: Positive: Normal bowel sounds, Soft; Negative: Tenderness Extremity Exam: Positive: Other (left BKA); Negative: Edema Skin Exam: Positive: Nl turgor and temperature; Negative: Rash, Breakdown Neuro Exam: Positive: Normal Speech, Cranial Nerves 3-12 NL Psych Exam: Positive: Mental status NL, Oriented x 3; Negative: Anxiety A-FIB/CHADSVASC A-FIB History Current/History of A-Fib/PAF?: No Current Oral Anticoagulant The: Yes Assessment /Plan Problems (1) S/P BKA (below knee amputation) unilateral Status: Acute Response to Treatment: Stable Discussed With: Nurse, Patient Problem Specific Plan: Monitor Clinically, Repeat Labs Problem Text: Mgmt per Vascular Surg, ID. Wound appears dry, clean and without significant drainage. (2) Peripheral vascular disease of extremity Status: Chronic Response to Treatment: Stable Problem Specific Plan: Monitor Clinically (3) Osteomyelitis of foot, acute Status: Resolved Response to Treatment: Stable Problem Text: s/p BKA (4) DM2 (diabetes mellitus, type 2) Status: Chronic Problem Specific Plan: Monitor Clinically Problem Text: FSBS controlled, Levemir 30 mg po BID. (5) Diastolic CHF Status: Chronic Response to Treatment: Stable Problem Specific Plan: Monitor Clinically Plan/VTE VTE Prophylaxis Ordered?: Yes VS, I&O, 24H, Fishbone Vital Signs/I&O Vital Signs Date Time Temp Pulse Resp B/P (MAP) Pulse Ox O2 Delivery O2 Flow Rate FiO2 07/02/18 09:38 160/73 07/02/18 08:35 20 07/02/18 06:00 97.0 75 95 06/30/18 06:00 2.0 I&O- Last 24 Hours up to 6 AM 07/02/18 06:00 Intake Total 1390 ml Output Total 1450 ml Balance -60 ml Laboratory Data 24H LABS Laboratory Tests 2 07/01/18 11:24: Bedside Glucose (Misc Panel) 214H 07/01/18 16:29: Bedside Glucose (Misc Panel) 216H 07/01/18 20:15: Bedside Glucose (Misc Panel) 120H 07/02/18 06:05: Immature Granulocyte % (Auto) 1.2, White Blood Count 6.9, Red Blood Count 3.28L, Hemoglobin 9.5L, Hematocrit 30.9L, Mean Corpuscular Volume 94.2, Mean Corpuscular Hemoglobin 29.0, Mean Corpuscular Hemoglobin Concent 30.7L, Red Cell Distribution Width 15.0H, Platelet Count 208, Neutrophils (%) (Auto) 60.9, Lymphocytes (%) (Auto) 21.8L, Monocytes (%) (Auto) 9.1H, Eosinophils (%) (Auto) 6.1H, Basophils (%) (Auto) 0.9, Neutrophils # (Auto) 4.2, Lymphocytes # (Auto) 1.5, Monocytes # (Auto) 0.6, Eosinophils # (Auto) 0.4, Basophils # (Auto) 0.1, Nucleated Red Blood Cells % (auto) 0.0, Anion Gap 4L, Glomerular Filtration Rate 23.8L, Blood Urea Nitrogen 71H, Creatinine 2.20H, Sodium Level 137, Potassium Level 4.3, Chloride Level 101, Carbon Dioxide Level 32, Calcium Level 9.0 CBC/BMP Laboratory Tests 07/02/18 06:05 Red Blood Count 3.28 L, Mean Corpuscular Volume 94.2, Mean Corpuscular Hemoglobin 29.0, Mean Corpuscular Hemoglobin Concent 30.7 L, Red Cell Distribution Width 15.0 H, Neutrophils (%) (Auto) 60.9, Lymphocytes (%) (Auto) 21.8 L, Monocytes (%) (Auto) 9.1 H, Eosinophils (%) (Auto) 6.1 H, Basophils (%) (Auto) 0.9, Neutrophils # (Auto) 4.2, Lymphocytes # (Auto) 1.5, Monocytes # (Auto) 0.6, Eosinophils # (Auto) 0.4, Basophils # (Auto) 0.1, Calcium Level 9.0 Microbiology Microbiology 06/28/18 Urine Culture - Final, Complete Serratia Marcescens MEGHAN VELÁSQUEZ PA-C July 02, 2018 10:08
--- NOTE | 2018-07-02 10:09 | IPNPDOC ---
Date Seen The patient was seen on 07/02/18. Progress Note Vascular Surgery Dr Matthews HPI: 67-year-old F with a past medical history of diabetes, on insulin, hypertension, stage IV chronic kidney disease, follows with Dr. Dong, diabetic neuropathy, hyperlipidemia, who was admitted 06/16/18 with left lateral foot wound and calcaneal fracture. Patient had been seen by podiatry and was sent to the emergency room for further evaluation and treatment related to worsening of her foot wound. Vascular Surgery was consulted to assist with LLE foot wound. Patient is status post left BKA 06/22/[address] Matthews. Transferred to the care of ADAMA Ash, 06/28/18. Denies any fevers, chills, weakness, fatigue, Headache, Chest Pain, Shortness of breath, cough, palpitations, abdominal pain, N/V/D or changes in bowel or bladder habits. PAST MEDICAL HISTORY: As mentioned above PAST SURGICAL HISTORY: She has had right 2nd, 4th and 5th toe amputations, left 3rd, 4th, 5th toe amputations plus left ankle sx, a hysterectomy, cholecystectomy, partial appendectomy. PE: GEN: 67yoF, appears stated age. Alert and oriented x 3. HEENT: Normocephalic, atraumatic. Moist mucous membranes. CHEST: Regular rate and rhythm, +S1, +S2 LUNGS: Clear to auscultation bilaterally. No wheezes, rales, or rhonchi. ABD: Round, soft, non-tender, non-distended. +Bowel sounds throughout. No rebound or guarding. EXT: Status post left BKA, bandage is removed, blisters appear improved and starting to resolve. Erythema appears decreased, cap refill on stump is good. Tr-1mm pitting edema noted in extremities,edema improving. SKIN: [place], dry, warm. NEURO: Alert and oriented x 3. No focal deficits appreciated. Left foot MRI 1. Lateral soft tissue edema. There is adjacent edema within the bone marrow of the base of the fifth metatarsal on T2 fat-suppressed and T1-weighted images consistent with acute osteomyelitis. A smaller focus of edema is present within the distal and lateral cuboid also suspicious for acute osteomyelitis. 2. There is a transverse fracture across the calcaneus. Electronically signed by: Prem Valverde On 06/16/2018 21:26:12 PM A&P: 67-year-old lady with a past medical history of diabetes, on insulin, hypertension, stage IV chronic kidney disease, follows with Dr. Dong, diabetic neuropathy, hyperlipidemia, who was admitted 06/16/18 with left lateral foot wound and calcaneal fracture. Patient had been seen by podiatry and was sent to the emergency room for further evaluation and treatment related to worsening of her foot wound. Vascular Surgery is consulted to assist with LLE foot wound. Chronic Left foot wound /Osteomyelitis of L foot, growing MSSA from wound site. Status post left BKA as per Dr. Matthews 06/22/18. POD10 Patient is afebrile. WBC 6.9. Cephazolin 1 gm IV q12h d/cd 06/27/18. Augmentin po BID . Appreciate ID assistance. Pain control with Dilaudid to 2 mg Q4 hr prn. Patient remains on gabapentin 300mg AM/ 600 mg at bedtime. Angiogram completed last admission. No intervention required. [facility] brought ampu shield. Acute renal failure superimposed on CKD Stage IV S/P PRBC 1 u 06/24/18. IVF 06/23/18. Demadex increased to 30 mg BID 06/30/18, edema appears to be improving. HD access Dr. Yanez has requested vascular surgery to evaluate for AV fistula. Vein mapping completed 05/24/18. AVF creation possibly over weekend or next week as per Dr Matthews. Anemia in CKD Hgb 9.5 1 u PRBC 06/24/18. 2 u PRBC 06/29/18 Aranesp/ferrous sulfate as per Nephrology DVT prophylaxis. Subcutaneous heparin. A-FIB/CHADSVASC A-FIB History Current/History of A-Fib/PAF?: No VS, I&O, 24H, Fishbone Vital Signs/I&O Vital Signs Date Time Temp Pulse Resp B/P (MAP) Pulse Ox O2 Delivery O2 Flow Rate FiO2 07/02/18 09:38 160/73 07/02/18 08:35 20 07/02/18 06:00 97.0 75 95 06/30/18 06:00 2.0 I&O- Last 24 Hours up to 6 AM 07/02/18 06:00 Intake Total 1390 ml Output Total 1450 ml Balance -60 ml Laboratory Data 24H LABS Laboratory Tests 2 07/01/18 11:24: Bedside Glucose (Misc Panel) 214H 07/01/18 16:29: Bedside Glucose (Misc Panel) 216H 07/01/18 20:15: Bedside Glucose (Misc Panel) 120H 07/02/18 06:05: Immature Granulocyte % (Auto) 1.2, White Blood Count 6.9, Red Blood Count 3.28L, Hemoglobin 9.5L, Hematocrit 30.9L, Mean Corpuscular Volume 94.2, Mean Corpuscular Hemoglobin 29.0, Mean Corpuscular Hemoglobin Concent 30.7L, Red Cell Distribution Width 15.0H, Platelet Count 208, Neutrophils (%) (Auto) 60.9, Lymphocytes (%) (Auto) 21.8L, Monocytes (%) (Auto) 9.1H, Eosinophils (%) (Auto) 6.1H, Basophils (%) (Auto) 0.9, Neutrophils # (Auto) 4.2, Lymphocytes # (Auto) 1.5, Monocytes # (Auto) 0.6, Eosinophils # (Auto) 0.4, Basophils # (Auto) 0.1, Nucleated Red Blood Cells % (auto) 0.0, Anion Gap 4L, Glomerular Filtration Rate 23.8L, Blood Urea Nitrogen 71H, Creatinine 2.20H, Sodium Level 137, Potassium Level 4.3, Chloride Level 101, Carbon Dioxide Level 32, Calcium Level 9.0 CBC/BMP Laboratory Tests 07/02/18 06:05 Red Blood Count 3.28 L, Mean Corpuscular Volume 94.2, Mean Corpuscular Hemoglobin 29.0, Mean Corpuscular Hemoglobin Concent 30.7 L, Red Cell Distribution Width 15.0 H, Neutrophils (%) (Auto) 60.9, Lymphocytes (%) (Auto) 21.8 L, Monocytes (%) (Auto) 9.1 H, Eosinophils (%) (Auto) 6.1 H, Basophils (%) (Auto) 0.9, Neutrophils # (Auto) 4.2, Lymphocytes # (Auto) 1.5, Monocytes # (Auto) 0.6, Eosinophils # (Auto) 0.4, Basophils # (Auto) 0.1, Calcium Level 9.0 Microbiology Microbiology 06/28/18 Urine Culture - Final, Complete Serratia Marcescens Clari Mike July 02, 2018 10:09
--- NOTE | 2018-07-02 11:27 | IPNPDOC ---
Text Note Date of Service The patient was seen on 07/01/18. NOTE Nephrology Service: Subjective: Patient seen and examined on wheelchair. Is status post L BKA post-operative day #[address] Matthews. Is having more improvement with transfers now. Hemodynamically stable. Urine output very good at 2050 mL. Creatinine is stable at 2.19 today. Reports her pain is controlled today. Still has blisters and drainage at LLE BKA stump site. Patient still on augmentin. Edema in lower extremities improved with higher dose of torsemide 30 mg BID diuresis. Patient denies chest pain, SOB, headache, fevers, chills, nausea, vomiting, abdominal pain, diarrhea. Finally had 2 BMs yesterday with mag citrate. States Dr. Matthews plans to do AV fistula creation tomorrow, Thursday, or Thursday. Objective: Vitals: T: 97.4 BP: 148/68 RR: 17 P: 69 O2 Saturation: 90% on room air Weight: 124.5 kg Intake: 1470 ml Output: 2050 ml Balance: (-) 580 ml Urine output: 0.69 ml/kg/hr General: AAO x 3. Sitting up comfortably on wheelchair, morbidly obese. NAD. Cooperative. Psychiatric: Depressed appearing mood and Flat affect. A bit discouraged today due to not remembering how to transfer from bed to chair. HEENT: Head: normocephalic, atraumatic. Neck: Supple. No JVD. Respiratory: Clear to auscultation bilaterally with no wheezes, rales, or rhonchi. Cardiovascular: (+)S1S2, regular rate and rhythm, with no murmurs, rubs or gallops. Abdomen: Soft, obese, nontender, nondistended, no hepatosplenomegaly appreciated. Extremities: LLE BKA stump site wrapped with gauze dressing with some staining noted. Trace edema noted of LLE and Trace pitting edema of RLE. Musculoskeletal: (+)L below the knee amputation. Neurological: No focal neurologic deficits appreciated bilaterally. Laboratory data: CBC is remarkable for WBC 7.9, Hgb 10.0 (L), platelets 226. BMP is remarkable for Na 136, K 4.6, BUN 68 (H), Cr 2.19 (H), GFR 24 (L), 142 glucose (H) POC Glucose: 214 (H) Microbiology: Urine Cx: (+) >100,000 Serratia Marcescens yesterday Imaging: No new imaging today. Current Inpatient Medications: Aranesp (Darbepoetin German) 100 mcg Fr@09 SC scheduled for 07/02/18 Ferrous Gluconate 324 mg PO BID Carvedilol 12.5 mg PO BID Isosorbide Mononitrate (Imdur) 30 MG PO QAM Dilaudid 2 mg q4h PRN PO Moderate/Severe Pain PS 5-10 Venofer (Iron Sucrose) 200 mg/Sodium Chloride 110 mL @ 110 mLs/hr q48h IV Lactulose 15 mL daily PO PRN constipation Senna 1 tab PO QHS Augmentin 500 mg PO BID Gabapentin 300 mg PO QAM Gabapentin 600 mg PO QHS Tylenol 650 mg PO q4h PRN pain or fever No medication changes noted today. Assessment/Plan: PROBLEMS: 1. Chronic kidney disease (CKD) stage IV: Renal function is stable and at baseline. Electrolytes stable. Magnesium discontinued yesterday as it was high. Creatinine stable and 2.19 today. Edema improved in lower extremities today after increase in torsemide to 30 mg BID. Patient will likely eventually need AV graft as she had fistulas that failed in the past as per Dr. Yanez. States Dr. Matthews will likely due AV Fistula creation tomorrow, Thursday, or Thursday. She is on par with this and would like to get this done [place]. Will continue to monitor renal function. No urgent indication for hemodialysis today. Monitor volume status and adjust diuretics as necessary. Anticipate dialysis needs in future. Recommend dosing medications for GFR. 2. Diastolic congestive heart failure: No clinical signs of decompensated HF at this point. Volume status acceptable. Edema a bit improved from yesterday. Have increased torsemide to 30 mg BID dosing. Adjust diuretic therapy as necessary. Will continue to monitor electrolytes, daily weights, and urine output. Urine output is acceptable and is more accurately recorded now. No need for HD at this time from fluid volume status as of yet. 3. Anemia related to iron deficiency, chronic renal failure, inflammation from L BKA stump site: For iron deficiency, continue venofer and ferrous sulfate 325 mg PO BID. For anemia secondary to CKD, continue Aranesp 100 mcg which was reordered yesterday once weekly on Fridays. For inflammation, treat underlying cause. No transfusion needs as of yet. Hgb acceptable at 10.0. 4. Osteomyelitis of LLE and L Calcaneal Fracture status-post Below the Knee Amputation of LLE Post-Operative Day #9: Pain controlled with dilaudid 2 mg PO q4h PRN mod/severe pain. Continue with PT and rehab. She does report blisters and drainage from L BKA stump site and is continued on augmentin for that. She is also followed by Infectious Disease. Will defer management and the need for antibiotic therapy to primary team and Infectious Disease. 5. Hypertension: Blood pressure acceptable at 148/68 today. Continue carvedilol 12.5 mg BID, Imdur 30 mg daily, and torsemide increased dose of 30 mg BID. No changes made today in antihypertensive regimen. 6. Constipation: Resolved. Reports she has 2 BMs yesterday. Had 150 mL mag citrate yesterday which is a bit more potent laxative. Continue lactulose that was begun yesterday and senna 1 tab QHS. 7. Urine Cx (+) for >100,000 Serratia Marcescens: defer to primary team and infectious disease for management. My preceptor for this patient encounter was Dr. Chantal Dong, and was physically present in the building during the encounter and was fully available. As needed, all aspects of the patient interview, examination, medical decision making process, and medical care plan development were reviewed and approved by the preceptor. Preceptor is aware and concurs with the plan as stated in the body of this note and will attest to such by his/her cosignature. A-FIB/CHADSVASC A-FIB History Current/History of A-Fib/PAF?: No Current Oral Anticoagulant The: No VS,Fishbone, I+O VS, Fishbone, I+O Laboratory Tests 07/01/18 06:19 Red Blood Count 3.43 L, Mean Corpuscular Volume 93.9, Mean Corpuscular Hemogl obin 29.2, Mean Corpuscular Hemoglobin Concent 31.1 L, Red Cell Distribution Width 15.0 H, Neutrophils (%) (Auto) 59.3, Lymphocytes (%) (Auto) 25.1, Monocytes (%) (Auto) 7.8 H, Eosinophils (%) (Auto) 5.7 H, Basophils (%) (Auto) 0.8, Neutrophils # (Auto) 4.7, Lymphocytes # (Auto) 2.0, Monocytes # (Auto) 0.6, Eosinophils # (Auto) 0.5, Basophils # (Auto) 0.1, Calcium Level 9.2 Vital Signs Date Time Temp Pulse Resp B/P (MAP) Pulse Ox O2 Delivery O2 Flow Rate FiO2 07/01/18 20:18 74 147/62 07/01/18 20:00 97.0 16 92 06/30/18 06:00 2.0 I&O- Last 24 Hours up to 6 AM 07/01/18 06:00 Intake Total 960 ml Output Total 2650 ml Balance -1690 ml ANDREW LANGE DO July 01, 2018 23:38
[2018-07-02 14:00] VITALS: BP 141/63
[2018-07-02 20:00] VITALS: BP 137/62
[2018-07-02] MEDS: ATORVASTATIN 20 MG TAB PO SCH (20:36)
[2018-07-02] MEDS: CYCLOBENZAPRINE 10 MG TAB PO SCH (20:36)
[2018-07-02] MEDS: SENNA 8.6 MG TAB (SENOKOT) PO SCH (21:00)
[2018-07-03 06:00] VITALS: BP 156/70
[2018-07-03] MEDS: HEPARIN SOD (PORCINE) 5000 UNITS/ML VIAL SC SCH ×3 (06:41→20:46)
[2018-07-03 06:46] LABS: BASO # 0.1 10^3/uL (0.0-0.2); EOS # 0.3 10^3/uL (0.0-0.50); HEMATOCRIT 31.1 % (36.0-47.0); HEMOGLOBIN 9.6 g/dl (12.0-15.5); LYMPH # 1.6 10^3/uL (1.5-4.5); LYMPH % 27.4 % (24.0-44.0); MEAN CORPUSCULAR HEMOGLOBIN 29.8 pg (27.0-33.0); MEAN CORPUSCULAR HGB CONC 30.9 g/dl (32.0-36.5); MEAN CORPUSCULAR VOLUME 96.6 fl (80.0-96.0); MONO # 0.7 10^3/uL (0.0-0.8); MONO % 11.3 % (0.0-5.0); NEUTROPHILS # 3.1 10^3/uL (1.8-7.7); NEUTROPHILS % 53.9 % (36.0-66.0); PLATELET COUNT, AUTOMATED 182 10^3/uL (150-450); RED BLOOD COUNT 3.22 10^6/uL (4.00-5.40); WHITE BLOOD COUNT 5.8 10^3/uL (4.0-10.0)
[2018-07-03 07:03] LABS: CALCIUM LEVEL 8.6 MG/DL (8.8-10.2); CREATININE FOR GFR 2.03 MG/DL (0.55-1.30); GLOMERULAR FILTRATION RATE 26.2 (>45); POTASSIUM SERUM 4.4 MEQ/L (3.5-5.1)
[2018-07-03] MEDS: NYSTATIN 500,000 U/5 ML SUSP UDC PO SCH ×4 (09:00→20:48)
[2018-07-03] MEDS: LEVEMIR (INSULIN DETEMIR) 1 UNITS/0.01ML SC SCH ×2 (09:00→20:48)
[2018-07-03] MEDS: NYSTATIN 100,000 UNITS/GM TOPICAL PWD 15 GM TOP SCH ×2 (09:00→20:51)
[2018-07-03] MEDS: ANALGESIC BALM CRM 120 GM TOP SCH ×3 (09:00→20:51)
[2018-07-03] MEDS: HumaLOG INSULIN (NovoLOG) PER UNIT SC SCH ×4 (09:01→20:26)
[2018-07-03] MEDS: MULTIVITAMINS/MINERALS THERAP 1 TAB PO SCH (09:02)
[2018-07-03] MEDS: PARoxetine 20 MG TAB PO SCH (09:02)
[2018-07-03] MEDS: GABAPENTIN 300 MG CAP PO SCH ×2 (09:02→20:48)
[2018-07-03] MEDS: PANTOPRAZOLE 40MG TAB (PROTONIX) PO SCH (09:02)
[2018-07-03] MEDS: TORSEMIDE 10 MG TABLET PO SCH ×2 (09:02→16:13)
[2018-07-03] MEDS: ISOSORBIDE MON. (IMDUR) 30 MG XR TAB PO SCH (09:02)
[2018-07-03] MEDS: CARVedilol 12.5 MG TAB PO SCH ×2 (09:03→20:49)
[2018-07-03] MEDS: AUGMENTIN 500 MG TAB PO SCH ×2 (09:03→20:49)
[2018-07-03] MEDS: FERROUS GLUCONATE 324 MG TAB PO SCH ×2 (09:03→20:48)
[2018-07-03] MEDS: DOCUSATE SODIUM 100 MG CAP PO SCH ×3 (09:03→20:56)
[2018-07-03] MEDS: HYDROmorphone 2 MG TAB PO PRN ×3 (09:04→20:50)
[2018-07-03] MEDS: ACETAMINOPHEN 500 MG TAB PO SCH ×3 (09:04→20:50)
[2018-07-03 14:00] VITALS: BP 121/62
--- NOTE | 2018-07-03 14:26 | IPNPDOC ---
Text Note Date of Service The patient was seen on 07/03/18. NOTE Nephrology Service: Subjective: Patient seen and examined at bedside. Is status post L BKA post-operative day #[address] Matthews. Doing well with PT. Hemodynamically stable. Urine output very good at 2100 mL. Creatinine is stable at 2.03 today. Reports her pain is controlled today. Edema in lower extremities improved with higher dose of torsemide 30 mg BID diuresis. Patient denies chest pain, SOB, headache, fevers, chills, nausea, vomiting, abdominal pain, diarrhea, constipation. AV fistula creation to be done either this weekend or next week according to Vascular Surgery note. Objective: Vitals: T: 97.5 BP: 156/70 RR: 17 P: 72 O2 Saturation: 99% on room air Weight: 124 kg Intake: 1550 ml Output: 2100 ml Balance: (-) 550 ml Urine output: 0.70 ml/kg/hr General: AAO x 3. Morbidly obese adult female seen at bedside in [facility]. Cooperative and pleasant. Psychiatric: Euthymic mood and normal affect. HEENT: Head: normocephalic, atraumatic. Neck: Supple. No JVD. Respiratory: Clear to auscultation bilaterally with no wheezes, rales, or rhonchi. Cardiovascular: Normal S1S2, regular rate and rhythm, with no murmurs, rubs or gallops. Abdomen: Soft, obese, nontender, nondistended, no hepatosplenomegaly appreciated. Extremities: LLE BKA stump site wrapped with gauze dressing. 1 (+) pitting edema noted of LLE and trace pitting edema of RLE. Musculoskeletal: (+)L below the knee amputation. Neurological: No focal neurologic deficits appreciated bilaterally. Laboratory data: CBC: WBC 5.8, Hgb 9.6, platelets 182. BMP: Na 139, K 4.4, BUN 68, Cr 2.03, 157, Ca 8.6 Microbiology: Urine Cx: (+) >100,000 Serratia Marcescens yesterday Imaging: No new imaging today. Current Inpatient Medications: Aranesp (Darbepoetin German) 100 mcg Fr@09 SC scheduled for Fridays Ferrous Gluconate 324 mg PO BID Carvedilol 12.5 mg PO BID Isosorbide Mononitrate (Imdur) 30 MG PO QAM Dilaudid 2 mg q4h PRN PO Moderate/Severe Pain PS 5-10 Venofer (Iron Sucrose) 200 mg/Sodium Chloride 110 mL @ 110 mLs/hr q48h IV Lactulose 15 mL daily PO PRN constipation Senna 1 tab PO QHS Augmentin 500 mg PO BID Tylenol 650 mg PO q4h PRN pain or fever Torsemide 30 mg PO BID New Medications: Gabapentin 300 mg PO BID Assessment/Plan: PROBLEMS: 1. Chronic kidney disease (CKD) stage IV: Renal function is stable and at baseline. Electrolytes stable. Creatinine stable and 2.03 today. Edema improved in lower extremities today after increase in torsemide to 30 mg BID. Patient will likely eventually need AV graft as she had fistulas that failed in the past as per Dr. Yanez. States Dr. Matthews will likely due AV Fistula creation this weekend or next week. Will continue to monitor renal function. No urgent indication for hemodialysis today. Monitor volume status and adjust diuretics as necessary. Anticipate dialysis needs in future. Recommend dosing medications for GFR and avoidance of nephrotoxic medications. 2. Diastolic congestive heart failure: No clinical signs of decompensated HF at this point. Volume status acceptable. Edema a bit improved. Continue with torsemide to 30 mg BID dosing. Adjust diuretic therapy as necessary. Will continue to monitor electrolytes, daily weights, and urine output. Urine output is acceptable. No need for HD at this time from fluid volume status as of yet. 3. Anemia related to iron deficiency, chronic renal failure, inflammation from L BKA stump site: For iron deficiency, continue venofer and ferrous sulfate 325 mg PO BID. For anemia secondary to CKD, continue Aranesp 100 mcg qFridays. For inflammation, treat underlying cause. No transfusion needs as of yet. Hgb acceptable at 9.6. 4. Osteomyelitis of LLE and L Calcaneal Fracture status-post Below the Knee Amputation of LLE Post-Operative Day #11: Pain controlled at this time. Continue current pain regimen as per primary team. Continue with PT and rehab, which patient states is going well. She does have L BKA stump site that is covered with dressing with hx of recent blister formation and drainage and is continued on augmentin for that. She is also followed by Infectious Disease. Will defer management and the need for antibiotic therapy to primary team and Infectious Disease. 5. Hypertension: Blood pressure acceptable at 156/70 today. Continue carvedilol 12.5 mg BID, Imdur 30 mg daily, and torsemide 30 mg BID. No changes made today in antihypertensive regimen. 6. Constipation: Resolved. Continue bisacodyl, lactulose and senna 1 tab QHS. Being mindful of fact patient is on dilaudid opioid medication that can affect bowel function. My preceptor for this patient encounter was Dr. Daniella Dong, and was phys ically present in the building during the encounter and was fully available. As needed, all aspects of the patient interview, examination, medical decision making process, and medical care plan development were reviewed and approved by the preceptor. Preceptor is aware and concurs with the plan as stated in the body of this note and will attest to such by his/her cosignature. A-FIB/CHADSVASC A-FIB History Current/History of A-Fib/PAF?: No Current Oral Anticoagulant The: No VS,Fishbone, I+O VS, Fishbone, I+O Laboratory Tests 07/03/18 06:16 Red Blood Count 3.22 L, Mean Corpuscular Volume 96.6 H, Mean Corpuscular Hemoglobin 29.8, Mean Corpuscular Hemoglobin Concent 30.9 L, Red Cell Distribution Width 15.1 H, Neutrophils (%) (Auto) 53.9, Lymphocytes (%) (Auto) 27.4, Monocytes (%) (Auto) 11.3 H, Eosinophils (%) (Auto) 5.0 H, Basophils (%) (Auto) 1.0, Neutrophils # (Auto) 3.1, Lymphocytes # (Auto) 1.6, Monocytes # (Auto) 0.7, Eosinophils # (Auto) 0.3, Basophils # (Auto) 0.1, Calcium Level 8.6 L Vital Signs Date Time Temp Pulse Resp B/P (MAP) Pulse Ox O2 Delivery O2 Flow Rate FiO2 07/03/18 09:34 16 07/03/18 09:03 72 156/70 07/03/18 06:00 97.5 99 06/30/18 06:00 2.0 I&O- Last 24 Hours up to 6 AM 07/03/18 06:00 Intake Total 1200 ml Output Total 2800 ml Balance -1600 ml ANDREW LANGE DO July 03, 2018 14:26
[2018-07-03 20:23] VITALS: BP 138/60
[2018-07-03] MEDS: CYCLOBENZAPRINE 10 MG TAB PO SCH (20:48)
[2018-07-03] MEDS: ATORVASTATIN 20 MG TAB PO SCH (20:49)
[2018-07-03] MEDS: SENNA 8.6 MG TAB (SENOKOT) PO SCH (20:49)
[2018-07-04 05:59] VITALS: BP 137/65
[2018-07-04] MEDS: HEPARIN SOD (PORCINE) 5000 UNITS/ML VIAL SC SCH ×3 (06:16→20:59)
[2018-07-04 07:00] LABS: BASO % 0.8 % (0.0-1.0); EOS # 0.3 10^3/uL (0.0-0.50); HEMATOCRIT 31.9 % (36.0-47.0); LYMPH # 1.6 10^3/uL (1.5-4.5); LYMPH % 32.5 % (24.0-44.0); MEAN CORPUSCULAR HEMOGLOBIN 29.8 pg (27.0-33.0); MEAN CORPUSCULAR HGB CONC 31.3 g/dl (32.0-36.5); MEAN CORPUSCULAR VOLUME 94.9 fl (80.0-96.0); MONO # 0.5 10^3/uL (0.0-0.8); MONO % 10.1 % (0.0-5.0); NEUTROPHILS # 2.3 10^3/uL (1.8-7.7); NEUTROPHILS % 48.2 % (36.0-66.0); PLATELET COUNT, AUTOMATED 183 10^3/uL (150-450); RED BLOOD COUNT 3.36 10^6/uL (4.00-5.40); WHITE BLOOD COUNT 4.9 10^3/uL (4.0-10.0)
[2018-07-04 07:16] LABS: CALCIUM LEVEL 8.8 MG/DL (8.8-10.2); CREATININE FOR GFR 2.06 MG/DL (0.55-1.30); GLOMERULAR FILTRATION RATE 25.7 (>45); POTASSIUM SERUM 4.2 MEQ/L (3.5-5.1)
[2018-07-04] MEDS: FERROUS GLUCONATE 324 MG TAB PO SCH ×2 (08:25→21:00)
[2018-07-04] MEDS: DOCUSATE SODIUM 100 MG CAP PO SCH ×2 (08:25→21:00)
[2018-07-04] MEDS: NYSTATIN 500,000 U/5 ML SUSP UDC PO SCH ×4 (08:25→20:59)
[2018-07-04] MEDS: AUGMENTIN 500 MG TAB PO SCH ×2 (08:25→21:01)
[2018-07-04] MEDS: HumaLOG INSULIN (NovoLOG) PER UNIT SC SCH ×4 (08:25→21:00)
[2018-07-04] MEDS: MULTIVITAMINS/MINERALS THERAP 1 TAB PO SCH (08:25)
[2018-07-04] MEDS: GABAPENTIN 300 MG CAP PO SCH ×2 (08:26→21:01)
[2018-07-04] MEDS: TORSEMIDE 10 MG TABLET PO SCH ×2 (08:26→16:42)
[2018-07-04] MEDS: PANTOPRAZOLE 40MG TAB (PROTONIX) PO SCH (08:26)
[2018-07-04] MEDS: LEVEMIR (INSULIN DETEMIR) 1 UNITS/0.01ML SC SCH ×2 (08:26→20:59)
[2018-07-04] MEDS: ACETAMINOPHEN 500 MG TAB PO SCH ×3 (08:26→21:00)
[2018-07-04] MEDS: PARoxetine 20 MG TAB PO SCH (08:26)
[2018-07-04] MEDS: CARVedilol 12.5 MG TAB PO SCH ×2 (08:27→21:02)
[2018-07-04] MEDS: NYSTATIN 100,000 UNITS/GM TOPICAL PWD 15 GM TOP SCH ×2 (08:27→21:03)
[2018-07-04] MEDS: ISOSORBIDE MON. (IMDUR) 30 MG XR TAB PO SCH (08:27)
[2018-07-04] MEDS: ANALGESIC BALM CRM 120 GM TOP SCH ×3 (08:28→21:00)
[2018-07-04] MEDS: HYDROmorphone 2 MG TAB PO PRN ×2 (09:12→13:24)
--- NOTE | 2018-07-04 09:12 | IPN ---
DATE: 07/02/2018 SUBJECTIVE: Patient seen and examined this morning at the bedside. She reports rehab is going well. Her only complaint today is of tremors and I notice that her gabapentin dose was recently increased. She also inquires if she can go see her mother in the [facility]. PHYSICAL EXAMINATION: Vital signs: Temperature 98.4, pulse 76, respiratory rate 17, blood pressure 137/62, saturating 96% on room air. Intake yesterday was 1040, urine output 1650, net negative 600. There were three bowel movements recorded. Weight on the bed scale today is not recorded. General: The patient is seen sitting out of bed to the chair. She is awake, alert, and oriented, comfortable, in no distress. Extraocular muscles are intact. Tongue is moist. Neck is supple. Jugular veins are not elevated while she is sitting upright. Cardiac S1, S2, regular rate and rhythm. 1+ edema in the right lower extremity. Lungs are clear to auscultation. Abdomen is soft and nontender. There are bowel sounds. The extremities show left below the knee amputation, stump site wrapped in dressings and there is about 1+ pitting edema present in both lower extremities, which does seem to be improving from prior. Neurologic: No focal deficits. Oriented times three. Skin normal temperature and turgor. LABS: White count 6.9, hemoglobin 9.5, platelets 208. Sodium 137, potassium 4.3, bicarbonate 32. INPATIENT MEDICATIONS: I reduced the gabapentin to 300 mg by mouth twice a day. She is ordered for a dose of Aranesp today. Remainder of medications are unchanged from prior. PROBLEMS: 1. Chronic kidney disease stage IV. Renal function is stable at baseline. Electrolytes are acceptable. Edema is slowly improving. Continue present diuretic regimen. Continue oral fluid restriction. Possible arteriovenous access creation during this admission when able to be coordinated by vascular surgery. 2. Diastolic congestive heart failure. Volume status is improving. Edema is slowly improving due to daily net negative fluid status. He is on oral fluid restriction. Continue torsemide 30 mg by mouth twice a day. We will adjust diuretic as needed. There are no urgent indications for hemodialysis at this time. 3. Anemia related to iron deficiency, chronic renal failure, inflammation. She continues on oral iron supplements. She did receive Venofer during this admission as well. She received a dose of Aranesp today and she has also received 2 units of packed red blood cells during this admission. Her hemoglobin is acceptable at 9.5. 4. Hypertension. Blood pressures are reasonable. Continue current regimen. No changes are being made. 5. Tremor, likely due to high dose of gabapentin in the setting of advanced chronic renal failure. I am holding gabapentin for the rest of the day today and then we will resume at a lower dose of 300 mg by mouth twice a day.
[2018-07-04 14:00] VITALS: BP 142/62
[2018-07-04 20:00] VITALS: BP 139/64
[2018-07-04] MEDS: SENNA 8.6 MG TAB (SENOKOT) PO SCH (21:00)
[2018-07-04] MEDS: ATORVASTATIN 20 MG TAB PO SCH (21:01)
[2018-07-04] MEDS: CYCLOBENZAPRINE 10 MG TAB PO SCH (21:01)
[2018-07-05 06:00] VITALS: BP 137/60
[2018-07-05 06:24] LABS: BASO % 0.8 % (0.0-1.0); EOS # 0.3 10^3/uL (0.0-0.50); EOS % 6.8 % (0.0-3.0); HEMATOCRIT 31.4 % (36.0-47.0); HEMOGLOBIN 9.7 g/dl (12.0-15.5); LYMPH # 1.6 10^3/uL (1.5-4.5); LYMPH % 31.1 % (24.0-44.0); MEAN CORPUSCULAR HEMOGLOBIN 29.2 pg (27.0-33.0); MEAN CORPUSCULAR HGB CONC 30.9 g/dl (32.0-36.5); MEAN CORPUSCULAR VOLUME 94.6 fl (80.0-96.0); MONO # 0.5 10^3/uL (0.0-0.8); MONO % 9.6 % (0.0-5.0); NEUTROPHILS # 2.5 10^3/uL (1.8-7.7); NEUTROPHILS % 50.5 % (36.0-66.0); PLATELET COUNT, AUTOMATED 178 10^3/uL (150-450); RED BLOOD COUNT 3.32 10^6/uL (4.00-5.40)
[2018-07-05] MEDS: HEPARIN SOD (PORCINE) 5000 UNITS/ML VIAL SC SCH ×3 (06:28→21:24)
[2018-07-05] MEDS: HYDROmorphone 2 MG TAB PO PRN (06:28)
[2018-07-05 06:42] LABS: CALCIUM LEVEL 8.4 MG/DL (8.8-10.2); CREATININE FOR GFR 2.05 MG/DL (0.55-1.30); GLOMERULAR FILTRATION RATE 25.9 (>45); POTASSIUM SERUM 4.1 MEQ/L (3.5-5.1)
[2018-07-05] MEDS: FERROUS GLUCONATE 324 MG TAB PO SCH ×2 (08:28→21:25)
[2018-07-05] MEDS: GABAPENTIN 300 MG CAP PO SCH ×2 (08:28→21:26)
[2018-07-05] MEDS: ISOSORBIDE MON. (IMDUR) 30 MG XR TAB PO SCH (08:28)
[2018-07-05] MEDS: ACETAMINOPHEN 500 MG TAB PO SCH ×3 (08:29→21:26)
[2018-07-05] MEDS: TORSEMIDE 10 MG TABLET PO SCH ×2 (08:29→17:11)
[2018-07-05] MEDS: PARoxetine 20 MG TAB PO SCH (08:29)
[2018-07-05] MEDS: DOCUSATE SODIUM 100 MG CAP PO SCH ×3 (08:29→21:26)
[2018-07-05] MEDS: NYSTATIN 500,000 U/5 ML SUSP UDC PO SCH ×4 (08:29→21:24)
[2018-07-05] MEDS: CARVedilol 12.5 MG TAB PO SCH ×2 (08:30→21:25)
[2018-07-05] MEDS: MULTIVITAMINS/MINERALS THERAP 1 TAB PO SCH (08:30)
[2018-07-05] MEDS: PANTOPRAZOLE 40MG TAB (PROTONIX) PO SCH (08:30)
[2018-07-05] MEDS: HumaLOG INSULIN (NovoLOG) PER UNIT SC SCH ×4 (08:30→21:23)
[2018-07-05] MEDS: AUGMENTIN 500 MG TAB PO SCH ×2 (08:30→21:24)
[2018-07-05] MEDS: NYSTATIN 100,000 UNITS/GM TOPICAL PWD 15 GM TOP SCH ×2 (08:31→21:24)
[2018-07-05] MEDS: LEVEMIR (INSULIN DETEMIR) 1 UNITS/0.01ML SC SCH ×2 (08:31→21:23)
[2018-07-05] MEDS: ANALGESIC BALM CRM 120 GM TOP SCH ×3 (08:33→21:24)
--- NOTE | 2018-07-05 11:13 | IPNPDOC ---
PM&R Progress Note DATE OF SERVICE: July 01, 2018 [employer] Progress Note Subjective: Patient reports she is having a lot of burning pain at the incision site and would like to increase her dose of Gabapentin. REVIEW OF SYSTEMS: The following is a completed review of systems and has been reviewed. Review of systems otherwise unremarkable. PAIN: Patient self reports left leg pain EYES: denies recent vision loss EARS, NOSE, & THROAT: denies dysphagia, hearing loss or rhinorrhea CARDIOVASCULAR: denies chest pain or palpitations PULMONARY: Negative. Denies shortness of breath GASTROINTESTINAL: +constipation GENITOURINARY: Negative for dysuria MUSCULOSKELETAL: left BKA NEUROLOGICAL: peripheral neuropathy HEMATOLOGICAL:+anemia SKIN: LLE incision-line and proximal medial and lateral tibia blisters PSYCHIATRIC: Unremarkable All other review of systems found to be negative. PHYSICAL EXAMINATION: VITAL SIGNS: Please see below. GENERAL: Pleasant and cooperative. No acute distress. HEENT: PERRL. Extraocular movements intact. Clear conjunctiva CARDIOVASCULAR: Regular rate and rhythm. No murmurs, rubs, or gallops LUNGS: Clear to auscultation bilaterally. No wheezes. No rhonchi ABDOMEN: Soft, nontender, mildly-distended. Positive bowel sounds. Normal active bowel sounds] NEUROLOGICAL: Alert and oriented times three. Cranial nerves II through XII grossly intact. Sensation diminished in RLE to light touch and poor proprioception EXTREMITIES: 5\5 strength bilateral upper extremities. 5-\5 strength right lower extremity. 5-/5 strength in left hip flexor and knee extension bilat LE edema right foot with digits 2,3,and 5 amputated SKIN: LLE incision-line and proximal medial, lateral posterior tibia blisters, proximal tibia erythematous patch ASSESSMENT:67-year-old F with past medical history of CKD4 and diabetic ulcers d/p multiple amputations who presents status post left BKA PLAN: 1. Rehab: PT/OT, assess for DMEs, requring a lot of assistance for functional transfers 2. Neuro: stable- avoid delirogenic meds 3. Cardiac: pmh HTN and HLD continue Imdur, Co-Reg and statin therapy- medicine consulted -last ECHO 04/2018 showing preserved systolic function with mild diastolic function- c/u diuretics 4. resp: encourage incentive spirometry, monitor for infection 5. ID: recent hx of MSSA left foot ulcer s/p BKA and course of IV Cefazoline, per ID recs monitor off antibiotics, however vascular would like a 10-day course of Augmentin 6. Renal: pmh CKD4 with recent emergent dialysis at last hospitalization, s/p gentle hydration with improvements- will consult renal to manage fluid balance and anemia -patient reports long-standing hx of blistering in her feet and limbs while on Lasix/sulfonamide diuretics, (reporting she as a sensitivity to sulfa and not clear if she has an allergy to her current medications) which ultimately led to amputations in setting of diabetes and PVD, will defer to renal for choice of di uretics (recs appreciated)and refer to dermatology as an outpatient, upon further questioning patient reports her mother had a skin blistering condition as well. 7. Heme: anemia of chronic disease- renal consulted, c/u Iron 8. GI ppx: protonix- constipation resolved 9. DVT ppx: heparin 10. Endo: poorly controlled DM with neuropathy- c/u insulin and ISS, adjust prn 11. Pain: Dilaudid prn, and will add standing tylenol, f/u Flexeril qHS, patient requesting increase dose of gabapentin for pain 12. Psych: depression, c/u Paxil 13. : admission UA and UCx positive for SERRATIA MARCESCENS s/p one time dose of Fosfomycin , monitor PVRs 14. Skin: BID skin checks with BID dressing changes, monitor for infection- will hold off on use of Hangar orthotic as poorly fitting and possibly causing blister formation on proximal tibia- suspect sulfa/sulfonamide allergy vs bullous pemphigoid reaction to lasix contributing to blisters although not clear, does have chronic eosinophilia and family hx of blistering condition, will refer to outpatient derm 15. Dispo: TBD Allergies Coded Allergies: TAPE (Verified Allergy, Intermediate, RASH, 05/19/18) citric acid (Verified Allergy, Intermediate, HIVES/ITCHING, 05/19/18) sodium bicarbonate (Verified Allergy, Intermediate, HIVES/ITCHING, 05/19/18) Sulfa (Sulfonamide Antibiotics) (Verified Allergy, Mild, 06/28/18) rash hydrocodone (Verified Allergy, Mild, ITCHES, 05/19/18) Vital Signs Vital Signs Date Time Temp Pulse Resp B/P (MAP) Pulse Ox O2 Delivery O2 Flow Rate FiO2 07/05/18 08:30 67 137/60 07/05/18 06:58 18 07/05/18 06:00 97.5 94 07/04/18 21:11 2.0 Laboratory Data CBC/BMP Laboratory Tests 07/05/18 06:08 Red Blood Count 3.32 L, Mean Corpuscular Volume 94.6, Mean Corpuscular Hemoglobin 29.2, Mean Corpuscular Hemoglobin Concent 30.9 L, Red Cell Distribution Width 15.1 H, Neutrophils (%) (Auto) 50.5, Lymphocytes (%) (Auto) 31.1, Monocytes (%) (Auto) 9.6 H, Eosinophils (%) (Auto) 6.8 H, Basophils (%) (Auto) 0.8, Neutrophils # (Auto) 2.5, Lymphocytes # (Auto) 1.6, Monocytes # (Auto) 0.5, Eosinophils # (Auto) 0.3, Basophils # (Auto) 0.0, Calcium Level 8.4 L Labs 24H Laboratory Tests 2 07/04/18 11:32: Bedside Glucose (Misc Panel) 161H 07/04/18 16:26: Bedside Glucose (Misc Panel) 163H 07/04/18 19:37: Bedside Glucose (Misc Panel) 182H 07/05/18 06:08: Immature Granulocyte % (Auto) 1.2, White Blood Count 5.0, Red Blood Count 3.32L, Hemoglobin 9.7L, Hematocrit 31.4L, Mean Corpuscular Volume 94.6, Mean Corpuscular Hemoglobin 29.2, Mean Corpuscular Hemoglobin Concent 30.9L, Red Cell Distribution Width 15.1H, Platelet Count 178, Neutrophils (%) (Auto) 50.5, Lymphocytes (%) (Auto) 31.1, Monocytes (%) (Auto) 9.6H, Eosinophils (%) (Auto) 6.8H, Basophils (%) (Auto) 0.8, Neutrophils # (Auto) 2.5, Lymphocytes # (Auto) 1.6, Monocytes # (Auto) 0.5, Eosinophils # (Auto) 0.3, Basophils # (Auto) 0.0, Nucleated Red Blood Cells % (auto) 0.0, Anion Gap 6L, Glomerular Filtration Rate 25.9L, Blood Urea Nitrogen 59H, Creatinine 2.05H, Sodium Level 139, Potassium Level 4.1, Chloride Level 101, Carbon Dioxide Level 32, Calcium Level 8.4L Microbiology Microbiology 06/28/18 Urine Culture - Final, Complete Serratia Marcescens Current Medications Current Medications Current Medications Acetaminophen (Tylenol Tab) 650 mg Q24H PRN PO fever; Start 06/28/18 at 12:45 Acetaminophen (Tylenol Tab) 1,000 mg TID PO Last administered on 07/05/18 08:29; Start 06/28/18 at 16:00 Al Hydrox/Mg Hydrox/Simethicone (Mylanta) 30 ml Q4HP PRN PO DYSPEPSIA; Start 06/28/18 at 12:45 Amoxicillin/ Clavulanate Potassium (Augmentin) 500 mg BID PO Last administered on 07/05/18 08:30; Start 06/28/18 at 21:00; Stop 07/08/18 at 09:01 Atorvastatin Calcium (Lipitor) 40 mg QHS PO Last administered on 07/04/18 21:01; Start 06/28/18 at 21:00 Bisacodyl (Dulcolax Suppository) 10 mg DAILYPRN PRN [place] CONSTIPATION; Start 06/28/18 at 12:45 Carvedilol (COReg) 12.5 mg BID PO Last administered on 07/05/18 08:30; Start 06/28/18 at 21:00 Cyclobenzaprine HCl (Flexeril) 10 mg QHS PO Last administered on 07/04/18 21:01; Start 06/28/18 at 21:00 Darbepoetin German (Aranesp) 100 mcg Fr@09 SC Last administered on 07/02/18at 09:38; Start 07/02/18 at 09:00 Dextrose (Dextrose 50%) 25 ml ASDIRECTED PRN IV SEE LABEL COMMENTS; Start 06/28/18 at 12:45 Docusate Sodium (Colace) 100 mg BID PO Last administered on 07/04/18 08:25; Start 06/28/18 at 21:00 Ferrous Gluconate (Fergon) 324 mg BID PO Last administered on 07/05/18 08:28; Start 06/28/18 at 21:00 Gabapentin (Neurontin) 300 mg BID PO Last administered on 07/05/18 08:28; Start 07/03/18 at 09:00 Gabapentin (Neurontin) 300 mg QAM PO Last administered on 07/01/18 09:05; Start 06/29/18 at 09:00; Stop 07/01/18 at 10:31; Status DC Gabapentin (Neurontin) 600 mg Q8H PO Last administered on 07/02/18 05:35; Start 07/01/18 at 14:00; Stop 07/02/18 at 13:27; Status DC Gabapentin (Neurontin) 600 mg QHS PO Last administered on 06/30/18at 20:56; Start 06/28/18 at 21:00; Stop 07/01/18 at 10:31; Status DC Glucagon (Glucagon) 1 mg ASDIRECTED PRN SC SEE LABEL COMMENTS; Start 06/28/18 at 12:45 Glucose (Glucose) 16 GM ASDIRECTED PRN PO SEE LABEL COMMENTS; Start 06/28/18 at 12:45 Heparin Sodium (Heparin (Flush)) 200 units ASDIRECTED PRN IV SEE LABEL COMMENTS Last administered on 06/30/18at 02:45; Start 06/29/18 at 05:45; Stop 07/01/18 at 23:21; Status DC Heparin Sodium (Heparin (Flush)) 200 units PICC IV Last administered on 07/01/18 05:39; Start 06/29/18 at 06:00; Stop 07/01/18 at 23:21; Status DC Heparin Sodium (Porcine) (Heparin) 5,000 units Q8H SC Last administered on 07/05/18 06:28; Start 06/28/18 at 22:00 Hydromorphone HCl (Dilaudid) 2 mg Q4HP PRN PO MODERATE/SEVERE PAIN (PS 5-10) Last administered on 07/05/18 06:28; Start 06/28/18 at 12:45 Insulin Detemir (Levemir Insulin) 30 units BID SC Last administered on 07/05/18 08:31; Start 06/28/18 at 21:00; Status Future hold Insulin Human Lispro (HumaLOG INSULIN) SEE PROTOCOL TABLE AC SC Last administered on 07/05/18at 08:30; Start 06/28/18 at 17:30 Insulin Human Lispro (HumaLOG INSULIN) SEE PROTOCOL TABLE QHS SC ; Start 06/28/18 at 21:00 Isosorbide Mononitrate (Imdur) 30 mg QAM PO Last administered on 07/05/18 08:28; Start 06/29/18 at 09:00 Lactulose (Cephulac) 15 ml DAILYPRN PRN PO CONSTIPATION Last administered on 06/29/18 14:05; Start 06/29/18 at 12:15 Magnesium Hydroxide (Milk Of Magnesia) 30 ml DAILYPRN PRN PO CONSTIPATION Last administered on 06/29/18 21:21; Start 06/28/18 at 12:45; Stop 06/30/18 at 15:54; Status DC Magnesium Oxide (Mag-Ox) 400 mg DAILY PO Last administered on 06/30/18 09:10; Start 06/29/18 at 09:00; Stop 07/01/18 at 04:16; Status DC Menthol/Methyl Salicylate (Bengay Cream) TID TOP Last administered on 07/05/18 08:33; Start 06/29/18 at 09:00 Miscellaneous (Unresolved Clarification Entry) SEE LABEL COMMENTS DAILY XX ; Start 07/04/18 at 09:00; Stop 07/05/18 at 08:00; Status DC Miscellaneous (Unresolved Clarification Entry) SEE LABEL COMMENTS DAILY XX ; Start 07/05/18 at 09:00 Miscellaneous (Unresolved Clarification Entry) SEE LABEL COMMENTS DAILY XX ; Start 06/29/18 at 09:00; Status Cancel Multivitamins (Theragram-M) 1 tab DAILY PO Last administered on 07/05/18 08:30; Start 06/28/18 at 09:00 Nystatin (Mycostatin Powder, Nystop) groin and abdominal folds BID TOP Last administered on 07/05/18 08:31; Start 06/28/18 at 21:00 Nystatin (Mycostatin) 5 ml QID PO Last administered on 07/05/18 08:29; Start 06/28/18 at 17:00 Pantoprazole Sodium (Protonix) 40 mg DAILY PO Last administered on 07/05/18 08:30; Start 06/29/18 at 09:00 Paroxetine HCl (PAXil) 40 mg DAILY PO Last administered on 07/05/18 08:29; Start 06/29/18 at 09:00 Senna (Senokot) 1 tab QHS PO Last administered on 07/03/18at 20:49; Start 06/28/18 at 21:00 Sodium Chloride (Saline Lock Flush) 10 ml ASDIRECTED PRN IV SEE LABEL COMMENTS Last administered on 06/30/18at 02:46; Start 06/29/18 at 05:45; Stop 07/01/18 at 23:21; Status DC Sodium Chloride (Saline Lock Flush) 10 ml PICC IV Last administered on 07/01/18at 05:39; Start 06/29/18 at 06:00; Stop 07/01/18 at 23:21; Status DC Torsemide (Demadex) 20 mg BID@09,17 PO Last administered on 06/30/18at 09:09; Start 06/28/18 at 17:00; Stop 06/30/18 at 10:29; Status DC Torsemide (Demadex) 30 mg BID@09,17 PO Last administered on 07/05/18at 08:29; Start 06/30/18 at 17:00 A-FIB/CHADSVASC A-FIB History Current/History of A-Fib/PAF?: No MAN RESTREPO MD July 05, 2018 11:13
--- NOTE | 2018-07-05 11:14 | IPNPDOC ---
PM&R Progress Note DATE OF SERVICE: July 05, 2018 Bog Worker Progress Note Subjective: Patient reports she has been trying to taper off the Dilaudid and has been feeling shaky. REVIEW OF SYSTEMS: The following is a completed review of systems and has been reviewed. Review of systems otherwise unremarkable. PAIN: Patient self reports left leg pain EYES: denies recent vision loss EARS, NOSE, & THROAT: denies dysphagia, hearing loss or rhinorrhea CARDIOVASCULAR: denies chest pain or palpitations PULMONARY: Negative. Denies shortness of breath GASTROINTESTINAL: +constipation (improving) GENITOURINARY: Negative for dysuria MUSCULOSKELETAL: left BKA NEUROLOGICAL: peripheral neuropathy HEMATOLOGICAL:+anemia SKIN: LLE incision-line and proximal medial and lateral tibia blisters PSYCHIATRIC: Unremarkable All other review of systems found to be negative. PHYSICAL EXAMINATION: VITAL SIGNS: Please see below. GENERAL: Pleasant and cooperative. No acute distress. HEENT: PERRL. Extraocular movements intact. Clear conjunctiva CARDIOVASCULAR: Regular rate and rhythm. No murmurs, rubs, or gallops LUNGS: Clear to auscultation bilaterally. No wheezes. No rhonchi ABDOMEN: Soft, nontender, mildly-distended. Positive bowel sounds. Normal active bowel sounds] NEUROLOGICAL: Alert and oriented times three. Cranial nerves II through XII grossly intact. Sensation diminished in RLE to light touch and poor proprioception EXTREMITIES: 5\5 strength bilateral upper extremities. 5-\5 strength right lower extremity. 5-/5 strength in left hip flexor and knee extension bilat LE edema right foot with digits 2,3,and 5 amputated SKIN: LLE incision-line and proximal medial, lateral posterior tibia blisters, proximal tibia erythematous patch ASSESSMENT:67-year-old F with past medical history of CKD4 and diabetic ulcers d/p multiple amputations who presents status post left BKA PLAN: 1. Rehab: PT/OT, assess for DMEs, improving functional transfers with slide board 2. Neuro: stable- avoid delirogenic meds 3. Cardiac: pmh HTN and HLD continue Imdur, Co-Reg and statin therapy- medicine consulted -last ECHO 04/2018 showing preserved systolic function with mild diastolic function- c/u diuretics -AV fistula scheduled with Dr. Matthews tomorrow, NPO at midnight 4. resp: encourage incentive spirometry, monitor for infection 5. ID: recent hx of MSSA left foot ulcer s/p BKA and course of IV Cefazoline, per ID recs monitor off antibiotics, however vascular would like a 10-day course of Augmentin- c/u 6. Renal: pmh CKD4 with recent emergent dialysis at last hospitalization, s/p gentle hydration with improvements- consulted renal to manage fluid balance and anemia-recs appreciated 7. Heme: anemia of chronic disease- renal consulted, c/u Iron 8. GI ppx: protonix- constipation resolved 9. DVT ppx: heparin 10. Endo: poorly controlled DM with neuropathy- c/u insulin and ISS, adjust prn 11. Pain: lowered Dilaudid 1mg standing , and c/u standing tylenol, f/u Flexeril qHS, c/u gabapentin at lower dosing as possible culprit for tremors 12. Psych: depression, c/u Paxil 13. : admission UA and UCx positive for SERRATIA MARCESCENS s/p one time dose of Fosfomycin , monitor PVRs 14. Skin: BID skin checks with BID dressing changes, monitor for infection- will hold off on use of Hangar orthotic as poorly fitting and possibly causing blister formation on proximal tibia- suspect sulfa/sulfonamide allergy vs bullous pemphigoid reaction to lasix contributing to blisters although not clear, does have chronic eosinophilia and family hx of blistering condition, will refer to outpatient derm 15. Dispo: 07/13/18 to home Allergies Coded Allergies: TAPE (Verified Allergy, Intermediate, RASH, 05/19/18) citric acid (Verified Allergy, Intermediate, HIVES/ITCHING, 05/19/18) sodium bicarbonate (Verified Allergy, Intermediate, HIVES/ITCHING, 05/19/18) Sulfa (Sulfonamide Antibiotics) (Verified Allergy, Mild, 06/28/18) rash hydrocodone (Verified Allergy, Mild, ITCHES, 05/19/18) Vital Signs Vital Signs Date Time Temp Pulse Resp B/P (MAP) Pulse Ox O2 Delivery O2 Flow Rate FiO2 07/05/18 08:30 67 137/60 07/05/18 06:58 18 07/05/18 06:00 97.5 94 07/04/18 21:11 2.0 Laboratory Data CBC/BMP Laboratory Tests 07/05/18 06:08 Red Blood Count 3.32 L, Mean Corpuscular Volume 94.6, Mean Corpuscular Hemoglobin 29.2, Mean Corpuscular Hemoglobin Concent 30.9 L, Red Cell Distribution Width 15.1 H, Neutrophils (%) (Auto) 50.5, Lymphocytes (%) (Auto) 31.1, Monocytes (%) (Auto) 9.6 H, Eosinophils (%) (Auto) 6.8 H, Basophils (%) (Auto) 0.8, Neutrophils # (Auto) 2.5, Lymphocytes # (Auto) 1.6, Monocytes # (Auto) 0.5, Eosinophils # (Auto) 0.3, Basophils # (Auto) 0.0, Calcium Level 8.4 L Labs 24H Laboratory Tests 2 07/04/18 11:32: Bedside Glucose (Misc Panel) 161H 07/04/18 16:26: Bedside Glucose (Misc Panel) 163H 07/04/18 19:37: Bedside Glucose (Misc Panel) 182H 07/05/18 06:08: Immature Granulocyte % (Auto) 1.2, White Blood Count 5.0, Red Blood Count 3.32L, Hemoglobin 9.7L, Hematocrit 31.4L, Mean Corpuscular Volume 94.6, Mean Corpuscular Hemoglobin 29.2, Mean Corpuscular Hemoglobin Concent 30.9L, Red Cell Distribution Width 15.1H, Platelet Count 178, Neutrophils (%) (Auto) 50.5, Lymphocytes (%) (Auto) 31.1, Monocytes (%) (Auto) 9.6H, Eosinophils (%) (Auto) 6.8H, Basophils (%) (Auto) 0.8, Neutrophils # (Auto) 2.5, Lymphocytes # (Auto) 1.6, Monocytes # (Auto) 0.5, Eosinophils # (Auto) 0.3, Basophils # (Auto) 0.0, Nucleated Red Blood Cells % (auto) 0.0, Anion Gap 6L, Glomerular Filtration Rate 25.9L, Blood Urea Nitrogen 59H, Creatinine 2.05H, Sodium Level 139, Potassium Level 4.1, Chloride Level 101, Carbon Dioxide Level 32, Calcium Level 8.4L Microbiology Microbiology 06/28/18 Urine Culture - Final, Complete Serratia Marcescens Current Medications Current Medications Current Medications Acetaminophen (Tylenol Tab) 650 mg Q24H PRN PO fever; Start 06/28/18 at 12:45 Acetaminophen (Tylenol Tab) 1,000 mg TID PO Last administered on 07/05/18 08:29; Start 06/28/18 at 16:00 Al Hydrox/Mg Hydrox/Simethicone (Mylanta) 30 ml Q4HP PRN PO DYSPEPSIA; Start 06/28/18 at 12:45 Amoxicillin/ Clavulanate Potassium (Augmentin) 500 mg BID PO Last administered on 07/05/18 08:30; Start 06/28/18 at 21:00; Stop 07/08/18 at 09:01 Atorvastatin Calcium (Lipitor) 40 mg QHS PO Last administered on 07/04/18 21:01; Start 06/28/18 at 21:00 Bisacodyl (Dulcolax Suppository) 10 mg DAILYPRN PRN PA CONSTIPATION; Start 06/28/18 at 12:45 Carvedilol (COReg) 12.5 mg BID PO Last administered on 07/05/18 08:30; Start 06/28/18 at 21:00 Cyclobenzaprine HCl (Flexeril) 10 mg QHS PO Last administered on 07/04/18 21:01; Start 06/28/18 at 21:00 Darbepoetin German (Aranesp) 100 mcg Fr@09 SC Last administered on 07/02/18at 09:38; Start 07/02/18 at 09:00 Dextrose (Dextrose 50%) 25 ml ASDIRECTED PRN IV SEE LABEL COMMENTS; Start 06/28/18 at 12:45 Docusate Sodium (Colace) 100 mg BID PO Last administered on 07/04/18 08:25; Start 06/28/18 at 21:00 Ferrous Gluconate (Fergon) 324 mg BID PO Last administered on 07/05/18 08:28; Start 06/28/18 at 21:00 Gabapentin (Neurontin) 300 mg BID PO Last administered on 07/05/18 08:28; Start 07/03/18 at 09:00 Gabapentin (Neurontin) 300 mg QAM PO Last administered on 07/01/18 09:05; Start 06/29/18 at 09:00; Stop 07/01/18 at 10:31; Status DC Gabapentin (Neurontin) 600 mg Q8H PO Last administered on 07/02/18 05:35; Start 07/01/18 at 14:00; Stop 07/02/18 at 13:27; Status DC Gabapentin (Neurontin) 600 mg QHS PO Last administered on 06/30/18at 20:56; Start 06/28/18 at 21:00; Stop 07/01/18 at 10:31; Status DC Glucagon (Glucagon) 1 mg ASDIRECTED PRN SC SEE LABEL COMMENTS; Start 06/28/18 at 12:45 Glucose (Glucose) 16 GM ASDIRECTED PRN PO SEE LABEL COMMENTS; Start 06/28/18 at 12:45 Heparin Sodium (Heparin (Flush)) 200 units ASDIRECTED PRN IV SEE LABEL COMMENTS Last administered on 06/30/18at 02:45; Start 06/29/18 at 05:45; Stop 07/01/18 at 23:21; Status DC Heparin Sodium (Heparin (Flush)) 200 units PICC IV Last administered on 07/01/18at 05:39; Start 06/29/18 at 06:00; Stop 07/01/18 at 23:21; Status DC Heparin Sodium (Porcine) (Heparin) 5,000 units Q8H SC Last administered on 07/05/18 06:28; Start 06/28/18 at 22:00 Hydromorphone HCl (Dilaudid) 2 mg Q4HP PRN PO MODERATE/SEVERE PAIN (PS 5-10) Last administered on 07/05/18at 06:28; Start 06/28/18 at 12:45 Insulin Detemir (Levemir Insulin) 30 units BID SC Last administered on 07/05/18at 08:31; Start 06/28/18 at 21:00; Status Future hold Insulin Human Lispro (HumaLOG INSULIN) SEE PROTOCOL TABLE AC SC Last administered on 07/05/18at 08:30; Start 06/28/18 at 17:30 Insulin Human Lispro (HumaLOG INSULIN) SEE PROTOCOL TABLE QHS SC ; Start 06/28/18 at 21:00 Isosorbide Mononitrate (Imdur) 30 mg QAM PO Last administered on 07/05/18at 08:28; Start 06/29/18 at 09:00 Lactulose (Cephulac) 15 ml DAILYPRN PRN PO CONSTIPATION Last administered on 06/29/18 14:05; Start 06/29/18 at 12:15 Magnesium Hydroxide (Milk Of Magnesia) 30 ml DAILYPRN PRN PO CONSTIPATION Last administered on 06/29/18 21:21; Start 06/28/18 at 12:45; Stop 06/30/18 at 15:54; Status DC Magnesium Oxide (Mag-Ox) 400 mg DAILY PO Last administered on 06/30/18 09:10; Start 06/29/18 at 09:00; Stop 07/01/18 at 04:16; Status DC Menthol/Methyl Salicylate (Bengay Cream) TID TOP Last administered on 08:33; Start 06/29/18 at 09:00 Miscellaneous (Unresolved Clarification Entry) SEE LABEL COMMENTS DAILY XX ; Start 07/04/18 at 09:00; Stop 07/05/18 at 08:00; Status DC Miscellaneous (Unresolved Clarification Entry) SEE LABEL COMMENTS DAILY XX ; Start 07/05/18 at 09:00 Miscellaneous (Unresolved Clarification Entry) SEE LABEL COMMENTS DAILY XX ; Start 06/29/18 at 09:00; Status Cancel Multivitamins (Theragram-M) 1 tab DAILY PO Last administered on 07/05/18 08:30; Start 06/28/18 at 09:00 Nystatin (Mycostatin Powder, Nystop) groin and abdominal folds BID TOP Last administered on 07/05/18 08:31; Start 06/28/18 at 21:00 Nystatin (Mycostatin) 5 ml QID PO Last administered on 07/05/18 08:29; Start 06/28/18 at 17:00 Pantoprazole Sodium (Protonix) 40 mg DAILY PO Last administered on 07/05/18 08:30; Start 06/29/18 at 09:00 Paroxetine HCl (PAXil) 40 mg DAILY PO Last administered on 07/05/18 08:29; Start 06/29/18 at 09:00 Senna (Senokot) 1 tab QHS PO Last administered on 07/03/18 20:49; Start 06/28/18 at 21:00 Sodium Chloride (Saline Lock Flush) 10 ml ASDIRECTED PRN IV SEE LABEL COMMENTS Last administered on 06/30/18 02:46; Start 06/29/18 at 05:45; Stop 07/01/18 at 23:21; Status DC Sodium Chloride (Saline Lock Flush) 10 ml PICC IV Last administered on 07/01/18at 05:39; Start 06/29/18 at 06:00; Stop 07/01/18 at 23:21; Status DC Torsemide (Demadex) 20 mg BID@09,17 PO Last administered on 06/30/18at 09:09; Start 06/28/18 at 17:00; Stop 06/30/18 at 10:29; Status DC Torsemide (Demadex) 30 mg BID@09,17 PO Last administered on 07/05/18at 08:29; Start 06/30/18 at 17:00 A-FIB/CHADSVASC A-FIB History Current/History of A-Fib/PAF?: No MAN RESTREPO MD July 05, 2018 11:13
--- NOTE | 2018-07-05 13:52 | IPNPDOC ---
Date Seen The patient was seen on 07/05/18. Progress Note Vascular Surgery Dr Matthews HPI: 67-year-old F with a past medical history of diabetes, on insulin, hypertension, stage IV chronic kidney disease, follows with Dr. Dong, diabetic neuropathy, hyperlipidemia, who was admitted 06/16/18 with left lateral foot wound and calcaneal fracture. Patient had been seen by podiatry and was sent to the emergency room for further evaluation and treatment related to worsening of her foot wound. Vascular Surgery was consulted to assist with LLE foot wound. Patient is status post left BKA 06/22/[address] Matthews. Transferred to the care of ADAMA Ash, 06/28/18. Pt is OOB to chair. Denies any fevers, chills, weakness, fatigue, Headache, Chest Pain, Shortness of breath, cough, palpitations, abdominal pain, N/V/D or changes in bowel or bladder habits. PAST MEDICAL HISTORY: As mentioned above PAST SURGICAL HISTORY: She has had right 2nd, 4th and 5th toe amputations, left 3rd, 4th, 5th toe amputations plus left ankle sx, a hysterectomy, cholecystectomy, partial appendectomy. PE: GEN: 67yoF, appears stated age. Alert and oriented x 3. HEENT: Normocephalic, atraumatic. Moist mucous membranes. CHEST: Regular rate and rhythm, +S1, +S2 LUNGS: Clear to auscultation bilaterally. No wheezes, rales, or rhonchi. ABD: Round, soft, non-tender, non-distended. +Bowel sounds throughout. No rebound or guarding. EXT: Status post left BKA, bandage is intact. SKIN: [place], dry, warm. NEURO: Alert and oriented x 3. No focal deficits appreciated. Left foot MRI 1. Lateral soft tissue edema. There is adjacent edema within the bone marrow of the base of the fifth metatarsal on T2 fat-suppressed and T1-weighted images consistent with acute osteomyelitis. A smaller focus of edema is present within the distal and lateral cuboid also suspicious for acute osteomyelitis. 2. There is a transverse fracture across the calcaneus. Electronically signed by: Prem Valverde On 06/16/2018 21:26:12 PM A&P: 67-year-old lady with a past medical history of diabetes, on insulin, hypertension, stage IV chronic kidney disease, follows with Dr. Dong, diabetic neuropathy, hyperlipidemia, who was admitted 06/16/18 with left lateral foot wound and calcaneal fracture. Patient had been seen by podiatry and was sent to the emergency room for further evaluation and treatment related to worsening of her foot wound. Vascular Surgery is consulted to assist with LLE foot wound. Chronic Left foot wound /Osteomyelitis of L foot, growing MSSA from wound site. Status post left BKA as per Dr. Matthews 06/22/18. Patient is afebrile. WBC 5.0. Cephazolin 1 gm IV q12h d/cd 06/27/18. Augmentin po BID D7/10. Appreciate ID assistance. Pain control with Dilaudid to 2 mg Q4 hr prn. Patient remains on gabapentin 300mg AM/ 600 mg at bedtime. Angiogram completed last admission. No intervention required. Acute renal failure superimposed on CKD Stage IV Demadex 30 mg BID Nephrology managing. HD access Dr. Yanez has requested vascular surgery to evaluate for AV fistula. Vein mapping completed 05/24/18. AVF creation planned 07/06/[address] Matthews. Anemia in CKD Hgb 9.7 1 u PRBC 06/24/18. 2 u PRBC 06/29/18 Aranesp/ferrous sulfate as per Nephrology DVT prophylaxis. Subcutaneous heparin. A-FIB/CHADSVASC A-FIB History Current/History of A-Fib/PAF?: No VS, I&O, 24H, Fishbone Vital Signs/I&O Vital Signs Date Time Temp Pulse Resp B/P (MAP) Pulse Ox O2 Delivery O2 Flow Rate FiO2 07/05/18 08:30 67 137/60 07/05/18 06:58 18 07/05/18 06:00 97.5 94 07/04/18 21:11 2.0 I&O- Last 24 Hours up to 6 AM 07/05/18 06:00 Intake Total 1290 ml Output Total 1010 ml Balance 280 ml Laboratory Data 24H LABS Laboratory Tests 2 07/04/18 16:26: Bedside Glucose (Misc Panel) 163H 07/04/18 19:37: Bedside Glucose (Misc Panel) 182H 07/05/18 06:08: Immature Granulocyte % (Auto) 1.2, White Blood Count 5.0, Red Blood Count 3.32L, Hemoglobin 9.7L, Hematocrit 31.4L, Mean Corpuscular Volume 94.6, Mean Corpuscular Hemoglobin 29.2, Mean Corpuscular Hemoglobin Concent 30.9L, Red Cell Distribution Width 15.1H, Platelet Count 178, Neutrophils (%) (Auto) 50.5, Ly mphocytes (%) (Auto) 31.1, Monocytes (%) (Auto) 9.6H, Eosinophils (%) (Auto) 6.8H, Basophils (%) (Auto) 0.8, Neutrophils # (Auto) 2.5, Lymphocytes # (Auto) 1.6, Monocytes # (Auto) 0.5, Eosinophils # (Auto) 0.3, Basophils # (Auto) 0.0, Nucleated Red Blood Cells % (auto) 0.0, Anion Gap 6L, Glomerular Filtration Rate 25.9L, Blood Urea Nitrogen 59H, Creatinine 2.05H, Sodium Level 139, Potassium Level 4.1, Chloride Level 101, Carbon Dioxide Level 32, Calcium Level 8.4L 07/05/18 12:28: Bedside Glucose (Misc Panel) 142H CBC/BMP Laboratory Tests 07/05/18 06:08 Red Blood Count 3.32 L, Mean Corpuscular Volume 94.6, Mean Corpuscular Hemoglobin 29.2, Mean Corpuscular Hemoglobin Concent 30.9 L, Red Cell Distribution Width 15.1 H, Neutrophils (%) (Auto) 50.5, Lymphocytes (%) (Auto) 31.1, Monocytes (%) (Auto) 9.6 H, Eosinophils (%) (Auto) 6.8 H, Basophils (%) ( Auto) 0.8, Neutrophils # (Auto) 2.5, Lymphocytes # (Auto) 1.6, Monocytes # (Auto) 0.5, Eosinophils # (Auto) 0.3, Basophils # (Auto) 0.0, Calcium Level 8.4 L Microbiology Microbiology 06/28/18 Urine Culture - Final, Complete Serratia Marcescens Clari Mike July 05, 2018 13:52
[2018-07-05 14:00] VITALS: BP 112/67
[2018-07-05] MEDS ORDERED: HYDROmorphone 2 MG TAB PO PRN ×2 (15:45)
[2018-07-05 20:00] VITALS: BP 143/68
[2018-07-05] MEDS: ATORVASTATIN 20 MG TAB PO SCH (21:24)
[2018-07-05] MEDS: SENNA 8.6 MG TAB (SENOKOT) PO SCH (21:26)
[2018-07-05] MEDS: CYCLOBENZAPRINE 10 MG TAB PO SCH (21:26)
[2018-07-06] VITALS (10 sets, daily range): BP systolic 113–141; BP diastolic 51–70
[2018-07-06] MEDS: HEPARIN SOD (PORCINE) 5000 UNITS/ML VIAL SC SCH ×3 (06:33→21:36)
[2018-07-06 07:13] LABS: BASO # 0.1 10^3/uL (0.0-0.2); BASO % 1.2 % (0.0-1.0); EOS # 0.4 10^3/uL (0.0-0.50); HEMATOCRIT 34.2 % (36.0-47.0); HEMOGLOBIN 10.4 g/dl (12.0-15.5); LYMPH # 1.7 10^3/uL (1.5-4.5); LYMPH % 32.7 % (24.0-44.0); MEAN CORPUSCULAR HEMOGLOBIN 29.5 pg (27.0-33.0); MEAN CORPUSCULAR HGB CONC 30.4 g/dl (32.0-36.5); MEAN CORPUSCULAR VOLUME 96.9 fl (80.0-96.0); MONO # 0.3 10^3/uL (0.0-0.8); MONO % 5.7 % (0.0-5.0); NEUTROPHILS # 2.7 10^3/uL (1.8-7.7); NEUTROPHILS % 52.8 % (36.0-66.0); PLATELET COUNT, AUTOMATED 175 10^3/uL (150-450); RED BLOOD COUNT 3.53 10^6/uL (4.00-5.40); WHITE BLOOD COUNT 5.1 10^3/uL (4.0-10.0)
[2018-07-06 07:30] LABS: CALCIUM LEVEL 9.2 MG/DL (8.8-10.2); CREATININE FOR GFR 2.14 MG/DL (0.55-1.30); GLOMERULAR FILTRATION RATE 24.6 (>45); POTASSIUM SERUM 4.2 MEQ/L (3.5-5.1)
[2018-07-06] MEDS: HumaLOG INSULIN (NovoLOG) PER UNIT SC SCH ×4 (07:30→21:00)
--- NOTE | 2018-07-06 08:04 | IPNPDOC ---
Text Note Date of Service The patient was seen on 07/05/18. NOTE Nephrology Service: Subjective: Patient seen and examined at bedside. Is status post L BKA post-operative day #[address] Matthews. Doing well with PT. Hemodynamically stable. Urine output decent at 1210 mL. Creatinine is stable at 2.05 today. Reports her pain is controlled today. Admits to blisters and discomfort with L BKA stump site. Patient denies chest pain, SOB, headache, fevers, chills, nausea, vomiting, abdominal pain, diarrhea, constipation. AVF creation planned 07/06/[address] Matthews. Objective: Vitals: T: 97.5 BP: 137/60 RR: 17 P: 67 O2 Saturation: 94% on room air Weight: 122 kg today and 123.6 kg day before Intake: 1350 ml Output: 1210 ml Balance: (+) 140 ml Urine output: 0.41 ml/kg/hr General: AAO x 3. Morbidly obese adult female seen sitting in wheelchair and able to mobilize herself. Cooperative and pleasant. Psychiatric: Euthymic mood and normal affect. HEENT: Head: normocephalic, atraumatic. Neck: Supple. No JVD. Respiratory: Clear to auscultation bilaterally with no wheezes, rales, or rhonchi. Cardiovascular: Normal S1S2, regular rate and rhythm, with no murmurs, rubs or gallops. Abdomen: Soft, obese, nontender, nondistended, no hepatosplenomegaly appreciated. Extremities: LLE BKA stump site wrapped with gauze dressing. 1 (+) pitting edema noted of LLE and trace pitting edema of RLE. Musculoskeletal: (+)L below the knee amputation. Neurological: No focal neurologic deficits appreciated bilaterally. Laboratory data: CBC: WBC 5.0, Hgb 9.7, platelets 178. BMP: Na 139, K 4.1, BUN 59, Cr 2.05, Glucose: 181, Ca 8.4 Imaging: No new imaging today. Current Inpatient Medications: Aranesp (Darbepoetin German) 100 mcg Fr@09 SC scheduled for Fridays Ferrous Gluconate 324 mg PO BID Carvedilol 12.5 mg PO BID Isosorbide Mononitrate (Imdur) 30 MG PO QAM Dilaudid 2 mg q4h PRN PO Moderate/Severe Pain PS 5-10 Venofer (Iron Sucrose) 200 mg/Sodium Chloride 110 mL @ 110 mLs/hr q48h IV Lactulose 15 mL daily PO PRN constipation Senna 1 tab PO QHS Augmentin 500 mg PO BID Tylenol 650 mg PO q4h PRN pain or fever Torsemide 30 mg PO BID New Medications: Dilaudid 2 mg q24h PRN PO moderate/severe pain Dilaudid 1 mg q4h PRN PO moderate/severe pain Assessment/Plan: PROBLEMS: 1. Chronic kidney disease (CKD) stage IV: Renal function is stable and at baseline. Electrolytes stable. Creatinine stable and 2.05 today. Going for AV Fistula creation on L arm with Dr. Matthews on 07/06/18, tomorrow. Will continue to monitor renal function. No urgent indication for hemodialysis today. Monitor volume status and adjust diuretics as necessary. Anticipate dialysis needs in future. Recommend dosing medications for GFR and avoidance of nephrotoxic medications. 2. Diastolic congestive heart failure: No clinical signs of decompensated HF at this point. Volume status acceptable. Edema a bit improved. Continue with torsemide to 30 mg BID. Adjust diuretic therapy as necessary. Will continue to monitor electrolytes, daily weights, and urine output. Urine output is acceptable. No need for HD at this time from fluid volume status as of yet. 3. Anemia related to iron deficiency, chronic renal failure, inflammation from L BKA stump site: For iron deficiency, continue venofer and ferrous sulfate 325 mg PO BID. For anemia secondary to CKD, continue Aranesp 100 mcg qFridays. For inflammation, treat underlying cause. No transfusion needs as of yet. Hgb acceptable at 9.7. 4. Osteomyelitis of LLE and L Calcaneal Fracture status-post Below the Knee Amputation of LLE Post-Operative Day #13: Pain controlled at this time. Dilaudid dosing has changed. Please see above. Continue current pain regimen as per primary team. Continue with PT and rehab, which patient states is going well. She does have L BKA stump site that is covered with dressing with hx of recent blister formation and drainage and is continued on augmentin for that. She is also followed by Infectious Disease. Will defer management and the need for antibiotic therapy to primary team and Infectious Disease. 5. Hypertension: Blood pressure acceptable at 137/60 today. Continue carvedilol 12.5 mg BID, Imdur 30 mg daily, and torsemide 30 mg BID. No changes made today in antihypertensive regimen. My preceptor for this patient encounter was Dr. Daniella Dong, and was physically present in the building during the encounter and was fully available. As needed, all aspects of the patient interview, examination, medical decision making process, and medical care plan development were reviewed and approved by the preceptor. Preceptor is aware and concurs with the plan as stated in the body of this note and will attest to such by his/her cosignature. A-FIB/CHADSVASC A-FIB History Current/History of A-Fib/PAF?: No Current Oral Anticoagulant The: No VS,Fishbone, I+O VS, Fishbone, I+O Laboratory Tests 07/05/18 06:08 Red Blood Count 3.32 L, Mean Corpuscular Volume 94.6, Mean Corpuscular Hemoglobin 29.2, Mean Corpuscular Hemoglobin Concent 30.9 L, Red Cell Distribution Width 15.1 H, Neutrophils (%) (Auto) 50.5, Lymphocytes (%) (Auto) 31.1, Monocytes (%) (Auto) 9.6 H, Eosinophils (%) (Auto) 6.8 H, Basophils (%) (Auto) 0.8, Neutrophils # (Auto) 2.5, Lymphocytes # (Auto) 1.6, Monocytes # (Auto) 0.5, Eosinophils # (Auto) 0.3, Basophils # (Auto) 0.0, Calcium Level 8.4 L Vital Signs Date Time Temp Pulse Resp B/P (MAP) Pulse Ox O2 Delivery O2 Flow Rate FiO2 07/05/18 22:21 2.0 07/05/18 21:55 18 07/05/18 21:25 78 144/77 07/05/18 20:00 96.9 90 I&O- Last 24 Hours up to 6 AM 07/05/18 06:00 Intake Total 1290 ml Output Total 1010 ml Balance 280 ml ANDREW LANGE DO July 05, 2018 23:38
[2018-07-06] MEDS: PARoxetine 20 MG TAB PO SCH (09:40)
[2018-07-06] MEDS: NYSTATIN 500,000 U/5 ML SUSP UDC PO SCH ×4 (09:40→21:35)
[2018-07-06] MEDS: GABAPENTIN 300 MG CAP PO SCH ×2 (09:40→21:37)
[2018-07-06] MEDS: PANTOPRAZOLE 40MG TAB (PROTONIX) PO SCH (09:40)
[2018-07-06] MEDS: AUGMENTIN 500 MG TAB PO SCH ×2 (09:41→21:35)
[2018-07-06] MEDS: FERROUS GLUCONATE 324 MG TAB PO SCH ×2 (09:41→21:39)
[2018-07-06] MEDS: DOCUSATE SODIUM 100 MG CAP PO SCH ×3 (09:41→21:35)
[2018-07-06] MEDS: ACETAMINOPHEN 500 MG TAB PO SCH ×3 (09:41→21:35)
[2018-07-06] MEDS: MULTIVITAMINS/MINERALS THERAP 1 TAB PO SCH (09:41)
[2018-07-06] MEDS: TORSEMIDE 10 MG TABLET PO SCH ×2 (09:41→17:51)
[2018-07-06] MEDS: ISOSORBIDE MON. (IMDUR) 30 MG XR TAB PO SCH (09:42)
[2018-07-06] MEDS: LEVEMIR (INSULIN DETEMIR) 1 UNITS/0.01ML SC SCH ×2 (09:42→21:37)
[2018-07-06] MEDS: CARVedilol 12.5 MG TAB PO SCH ×2 (09:42→21:36)
[2018-07-06] MEDS: NYSTATIN 100,000 UNITS/GM TOPICAL PWD 15 GM TOP SCH ×2 (09:43→21:38)
[2018-07-06] MEDS: ANALGESIC BALM CRM 120 GM TOP SCH ×3 (09:43→21:00)
[2018-07-06] MEDS ORDERED: ISOVUE-300 61% 50ML VIAL (Q9967) As Ordered ONE (11:40)
[2018-07-06] MEDS ORDERED: LIDOCAINE 1% SDV INJ 30 ML VIAL As Ordered ONE (11:40)
[2018-07-06] MEDS ORDERED: HEPARIN SOD (PORCINE) 5000 UNITS/ML VIAL As Ordered ONE (11:40)
[2018-07-06] MEDS ORDERED: BUPIVACAINE HCL 0.5% 30 ML VIAL As Ordered ONE (11:40)
[2018-07-06] MEDS ORDERED: PROPOFOL 200 MG/20 ML VIAL As Ordered ONE ×2 (12:27→13:21)
[2018-07-06] MEDS ORDERED: fentaNYL 100 MCG/2 ML INJECTION (J3010) As Ordered ONE (12:27)
[2018-07-06] MEDS ORDERED: MIDAZOLAM INJ 2 MG/2 ML VIAL (J2250) As Ordered ONE (12:27)
[2018-07-06] MEDS ORDERED: fentaNYL 100 MCG/2 ML INJECTION (J3010) IV PRN (13:45)
--- NOTE | 2018-07-06 13:55 | ROOPDOC ---
[facility] Report Of Operation Report of Operation DATE OF PROCEDURE: 07/06/2018 PREOPERATIVE DIAGNOSES: Chronic renal insufficiency nearing end-stage renal disease requiring renal replacement therapy. POSTOPERATIVE DIAGNOSES: Chronic renal insufficiency nearing end-stage renal disease requiring renal replacement therapy. PROCEDURE: Left brachiocephalic arteriovenous fistula creation. SURGEON: Dr. Yvonne Matthews MD GAS FITTER APPRENTICE: None INDICATION: Patient is a 67-year-old female with chronic renal insufficiency nearing end-stage renal disease. Patient will undergo creation of an arteriovenous fistula for access for hemodialysis in the future. Patient has had two previous fistulas one at the left wrist and one at the right antecubital fossa both of which have thrombosed. Vein mapping was performed and patient evaluated and felt to be a good candidate for a left brachiocephalic arteriovenous fistula creation. Patient will undergo creation of a left brachiocephalic arteriovenous fistula. The procedure was described and explained to the patient in detail including drawing of pictures demonstrating the procedure and the anatomy. Risks, benefits and alternative treatment options were discussed with the patient. Benefits included but were not limited to having a functioning arteriovenous fistula at the time of initiation of hemodialysis decreasing the possibility of the need for a central venous tunneled catheter for dialysis access. Alternative treatment options included but were not limited to no intervention with continued conservative management. Risks included but were not limited to infection, bleeding, failure of arteriovenous to maintain patency with thrombosis, failure of arteriovenous fistula to mature requiring secondary intervention, steal syndrome, worsening of renal failure requiring hemodialysis sooner than expected, possible need for further open surgical intervention, possible need for transfusion of blood products, allergic and/or adverse reaction to the prepping and draping material, allergic and/or adverse reaction to the anesthetic, nerve injury, bruising, scarring, cerebrovascular accident, myocardial infarction, pulmonary embolus , DVT, anesthetic complication, loss of limb, loss of life, poor results and poor outcome. Risks of not performing the procedure included but were not limited to requirement for placement of a tunneled central venous catheter for hemodialysis access. Patient's questions were answered. Patient voices understanding of the risks, benefits and alternative treatment options and consents to proceed with arteriovenous fistula creation. There were no guarantees or promises made to the patient regarding the procedure, results and/or outcome. ANESTHESIA: Local MAC IVF: 100 mL ESTIMATED BLOOD LOSS: 20 mL. HEPARIN:None PROTAMINE:None COMPLICATIONS:None DRAINS:None SPECIMENS:None IMPLANTS:None FINDINGS: Patient had a normal cephalic vein and brachial artery at the antecubital fossa. DESCRIPTION OF PROCEDURE: Patient was taken to operating room, placed supine on the operating room table, and the patient was prepped and draped in a standard surgical fashion. A time-out was then conducted by myself and the team members in the room confirming the correct patient, procedure and laterality. A to urniquet was then applied to the left upper arm to dilate the cephalic vein along the course of the forearm and upper arm. An incision was then made at the antecubital fossa after the overlying tissue were anesthetized with 1% lidocaine mixed with 0.5 % Marcaine. The cephalic vein and brachial artery were sharply dissected proximally and distally and encircled with vessel loops. The cephalic vein was then transected as far distal as possible with the remnant ligated with a 2-0 silk suture. The cephalic vein was then dilated using heparinized saline. The cephalic vein was brought to the brachial artery and anastomosed to the brachial artery in an end to side fashion using 6-0 Prolene suture after an arteriotomy was made in the brachial artery and elongated with joyner scissors. There was good flow noted in the fistula at the completion of the anastomosis using Doppler ultrasound. Hemostasis was obtained after which the incision was closed using 2-0 Vicryl to approximate the deeper layers and the skin was appr oximated using 4-0 Monocryl in a running subcuticular fashion. Steri-Strips and dressings were applied. The patient tolerated the procedure well. All instrument, sponge and needle counts were correct at the end of the case. There were no complications. Dr. Matthews was present for and directed the entire case. Patient was transferred to the recovery room awake, alert, extubated and in stable condition. The left hand was well perfused with 2+ radial and ulnar pulses palpable. The procedure and results were discussed with the patient in the recovery room with all of her questions being answered. Roscoe Matthews MD July 06, 2018 13:55
[2018-07-06] MEDS ORDERED: PERCOCET 5MG/325MG TAB As Ordered ONE (14:09)
[2018-07-06] MEDS: PERCOCET 5MG/325MG TAB PO PRN ×2 (14:10→14:28)
--- NOTE | 2018-07-06 15:21 | IPNPDOC ---
PM&R Progress Note DATE OF SERVICE: July 06, 2018 Compactor Driver Progress Note Subjective: Patient reports she still feels slightly shaky this morning, but thinks it is because she did not eat and took her pain medication. REVIEW OF SYSTEMS: The following is a completed review of systems and has been reviewed. Review of systems otherwise unremarkable. PAIN: Patient self reports left leg pain EYES: denies recent vision loss EARS, NOSE, & THROAT: denies dysphagia, hearing loss or rhinorrhea CARDIOVASCULAR: denies chest pain or palpitations PULMONARY: Negative. Denies shortness of breath GASTROINTESTINAL: +constipation (improving) GENITOURINARY: Negative for dysuria MUSCULOSKELETAL: left BKA NEUROLOGICAL: peripheral neuropathy HEMATOLOGICAL:+anemia SKIN: LLE incision-line and proximal medial and lateral tibia blisters PSYCHIATRIC: Unremarkable All other review of systems found to be negative. PHYSICAL EXAMINATION: VITAL SIGNS: Please see below. GENERAL: Pleasant and cooperative. No acute distress. HEENT: PERRL. Extraocular movements intact. Clear conjunctiva CARDIOVASCULAR: Regular rate and rhythm. No murmurs, rubs, or gallops LUNGS: Clear to auscultation bilaterally. No wheezes. No rhonchi ABDOMEN: Soft, nontender, mildly-distended. Positive bowel sounds. Normal active bowel sounds] NEUROLOGICAL: Alert and oriented times three. Cranial nerves II through XII grossly intact. Sensation diminished in RLE to light touch and poor proprioception EXTREMITIES: 5\5 strength bilateral upper extremities. 5-\5 strength right lower extremity. 5-/5 strength in left hip flexor and knee extension bilat LE edema right foot with digits 2,3,and 5 amputated SKIN: LLE incision-line and proximal medial, lateral posterior tibia blisters, proximal tibia erythematous patch ASSESSMENT:67-year-old F with past medical history of CKD4 and diabetic ulcers d/p multiple amputations who presents status post left BKA PLAN: 1. Rehab: PT/OT, assess for DMEs, improving functional transfers with slide board 2. Neuro: stable- avoid delirogenic meds 3. Cardiac: pmh HTN and HLD continue Imdur, Co-Reg and statin therapy- medicine consulted -last ECHO 04/2018 showing preserved systolic function with mild diastolic function- c/u diuretics -AV fistula scheduled with Dr. Matthews today 4. resp: encourage incentive spirometry, monitor for infection 5. ID: recent hx of MSSA left foot ulcer s/p BKA and course of IV Cefazoline, per ID recs monitor off antibiotics, however vascular would like a 10-day course of Augmentin- c/u 6. Renal: pmh CKD4 with recent emergent dialysis at last hospitalization, s/p gentle hydration with improvements- consulted renal to manage fluid balance and anemia-recs appreciated 7. Heme: anemia of chronic disease- renal consulted, c/u Iron 8. GI ppx: protonix- constipation resolved 9. DVT ppx: heparin 10. Endo: poorly controlled DM with neuropathy- c/u insulin and ISS, adjust prn 11. Pain: lowered Dilaudid 1mg standing , and c/u standing tylenol, f/u Flexeril qHS, c/u gabapentin at lower dosing as possible culprit for tremors 12. Psych: depression, c/u Paxil 13. : admission UA and UCx positive for SERRATIA MARCESCENS s/p one time dose of Fosfomycin , monitor PVRs 14. Skin: BID skin checks with BID dressing changes, monitor for infection- will hold off on use of Hangar orthotic as poorly fitting and possibly causing blister formation on proximal tibia- suspect sulfa/sulfonamide allergy vs bullous pemphigoid reaction to lasix contributing to blisters although not serena ar, does have chronic eosinophilia and family hx of blistering condition, will refer to outpatient derm 15. Dispo: 07/13/18 to home Allergies Coded Allergies: TAPE (Verified Allergy, Intermediate, RASH, 05/19/18) citric acid (Verified Allergy, Intermediate, HIVES/ITCHING, 05/19/18) sodium bicarbonate (Verified Allergy, Intermediate, HIVES/ITCHING, 05/19/18) Sulfa (Sulfonamide Antibiotics) (Verified Allergy, Mild, 06/28/18) rash hydrocodone (Verified Allergy, Mild, ITCHES, 05/19/18) Vital Signs Vital Signs Date Time Temp Pulse Resp B/P (MAP) Pulse Ox O2 Delivery O2 Flow Rate FiO2 07/06/18 14:35 96.8 65 18 129/60 (83) 100 07/06/18 14:10 2.0 Laboratory Data CBC/BMP Laboratory Tests 07/06/18 06:53 Red Blood Count 3.53 L, Mean Corpuscular Volume 96.9 H, Mean Corpuscular Hemoglobin 29.5, Mean Corpuscular Hemoglobin Concent 30.4 L, Red Cell Distribution Width 15.3 H, Neutrophils (%) (Auto) 52.8, Lymphocytes (%) (Auto) 32.7, Monocytes (%) (Auto) 5.7 H, Eosinophils (%) (Auto) 7.0 H, Basophils (%) (Auto) 1.2 H, Neutrophils # (Auto) 2.7, Lymphocytes # (Auto) 1.7, Monocytes # (Auto) 0.3, Eosinophils # (Auto) 0.4, Basophils # (Auto) 0.1, Calcium Level 9.2 Labs 24H Laboratory Tests 2 07/05/18 17:00: Bedside Glucose (Misc Panel) 193H 07/05/18 20:49: Bedside Glucose (Misc Panel) 253H 07/06/18 06:37: Bedside Glucose (Misc Panel) 109 07/06/18 06:53: Immature Granulocyte % (Auto) 0.6, White Blood Count 5.1, Red Blood Count 3.53L, Hemoglobin 10.4L, Hematocrit 34.2L, Mean Corpuscular Volume 96.9H, Mean Corpuscular Hemoglobin 29.5, Mean Corpuscular Hemoglobin Concent 30.4L, Red Cell Distribution Width 15.3H, Platelet Count 175, Neutrophils (%) (Auto) 52.8, Lymphocytes (%) (Auto) 32.7, Monocytes (%) (Auto) 5.7H, Eosinophils (%) (Auto) 7.0H, Basophils (%) (Auto) 1.2H, Neutrophils # (Auto) 2.7, Lymphocytes # (Auto) 1.7, Monocytes # (Auto) 0.3, Eosinophils # (Auto) 0.4, Basophils # (Auto) 0.1, Nucleated Red Blood Cells % (auto) 0.0, Anion Gap 8, Glomerular Filtration Rate 24.6L, Blood Urea Nitrogen 62H, Creatinine 2.14H, Sodium Level 141, Potassium Level 4.2, Chloride Level 102, Carbon Dioxide Level 31, Calcium Level 9.2 07/06/18 14:34: Bedside Glucose (Misc Panel) 103 Microbiology Microbiology 06/28/18 Urine Culture - Final, Complete Serratia Marcescens Current Medications Current Medications Current Medications Acetaminophen (Tylenol Tab) 650 mg Q24H PRN PO fever; Start 06/28/18 at 12:45 Acetaminophen (Tylenol Tab) 1,000 mg TID PO Last administered on 07/06/18 09:41; Start 06/28/18 at 16:00 Al Hydrox/Mg Hydrox/Simethicone (Mylanta) 30 ml Q4HP PRN PO DYSPEPSIA; Start 06/28/18 at 12:45 Amoxicillin/ Clavulanate Potassium (Augmentin) 500 mg BID PO Last administered on 07/06/18 09:41; Start 06/28/18 at 21:00; Stop 07/08/18 at 09:01 Atorvastatin Calcium (Lipitor) 40 mg QHS PO Last administered on 07/05/18 21:24; Start 06/28/18 at 21:00 Bisacodyl (Dulcolax Suppository) 10 mg DAILYPRN PRN NE CONSTIPATION; Start 06/28/18 at 12:45 Carvedilol (COReg) 12.5 mg BID PO Last administered on 07/06/18 09:42; Start 06/28/18 at 21:00 Cyclobenzaprine HCl (Flexeril) 10 mg QHS PO Last administered on 07/05/18 21:26; Start 06/28/18 at 21:00 Darbepoetin German (Aranesp) 100 mcg Fr@09 SC Last administered on 07/02/18 09:38; Start 07/02/18 at 09:00 Dextrose (Dextrose 50%) 25 ml ASDIRECTED PRN IV SEE LABEL COMMENTS; Start 06/28/18 at 12:45 Docusate Sodium (Colace) 100 mg BID PO Last administered on 07/04/18 08:25; Start 06/28/18 at 21:00 Fentanyl Citrate (Sublimaze) 25 mcg Q5MP PRN IV MODERATE PAIN (PS 4-7); Start 07/06/18 at 13:45; Stop 07/06/18 at 14:45; Status DC Ferrous Gluconate (Fergon) 324 mg BID PO Last administered on 07/06/18 09:41; Start 06/28/18 at 21:00 Gabapentin (Neurontin) 300 mg BID PO Last administered on 07/06/18 09:40; Start 07/03/18 at 09:00 Gabapentin (Neurontin) 300 mg QAM PO Last administered on 07/01/18at 09:05; Start 06/29/18 at 09:00; Stop 07/01/18 at 10:31; Status DC Gabapentin (Neurontin) 600 mg Q8H PO Last administered on 07/02/18at 05:35; Start 07/01/18 at 14:00; Stop 07/02/18 at 13:27; Status DC Gabapentin (Neurontin) 600 mg QHS PO Last administered on 06/30/18at 20:56; Start 06/28/18 at 21:00; Stop 07/01/18 at 10:31; Status DC Glucagon (Glucagon) 1 mg ASDIRECTED PRN SC SEE LABEL COMMENTS; Start 06/28/18 at 12:45 Glucose (Glucose) 16 GM ASDIRECTED PRN PO SEE LABEL COMMENTS; Start 06/28/18 at 12:45 Heparin Sodium (Heparin (Flush)) 200 units ASDIRECTED PRN IV SEE LABEL COMMENTS Last administered on 06/30/18at 02:45; Start 06/29/18 at 05:45; Stop 07/01/18 at 23:21; Status DC Heparin Sodium (Heparin (Flush)) 200 units PICC IV Last administered on 07/01/18at 05:39; Start 06/29/18 at 06:00; Stop 07/01/18 at 23:21; Status DC Heparin Sodium (Porcine) (Heparin) 5,000 units Q8H SC Last administered on 07/06/18at 06:33; Start 06/28/18 at 22:00 Hydromorphone HCl (Dilaudid) 1 mg Q4HP PRN PO MODERATE/SEVERE PAIN (PS 5-10); Start 07/05/18 at 15:45 Hydromorphone HCl (Dilaudid) 2 mg Q24H PRN PO MODERATE/SEVERE PAIN (PS 5-10) Last administered on 07/05/18at 21:25; Start 07/05/18 at 15:45 Hydromorphone HCl (Dilaudid) 2 mg Q4HP PRN PO MODERATE/SEVERE PAIN (PS 5-10) Last administered on 07/05/18at 06:28; Start 06/28/18 at 12:45; Stop 07/05/18 at 15:41; Status DC Insulin Detemir (Levemir Insulin) 30 units BID SC Last administered on 07/05/18 21:23; Start 06/28/18 at 21:00; Status Future hold Insulin Human Lispro (HumaLOG INSULIN) SEE PROTOCOL TABLE AC SC Last administered on 07/05/18at 17:12; Start 06/28/18 at 17:30 Insulin Human Lispro (HumaLOG INSULIN) SEE PROTOCOL TABLE QHS SC Last administered on 07/05/18at 21:23; Start 06/28/18 at 21:00 Isosorbide Mononitrate (Imdur) 30 mg QAM PO Last administered on 07/06/18 09:42; Start 06/29/18 at 09:00 Lactulose (Cephulac) 15 ml DAILYPRN PRN PO CONSTIPATION Last administered on 06/29/18 14:05; Start 06/29/18 at 12:15 Magnesium Hydroxide (Milk Of Magnesia) 30 ml DAILYPRN PRN PO CONSTIPATION Last administered on 06/29/18 21:21; Start 06/28/18 at 12:45; Stop 06/30/18 at 15:54; Status DC Magnesium Oxide (Mag-Ox) 400 mg DAILY PO Last administered on 06/30/18 09:10; Start 06/29/18 at 09:00; Stop 07/01/18 at 04:16; Status DC Menthol/Methyl Salicylate (Bengay Cream) TID TOP Last administered on 08:33; Start 06/29/18 at 09:00 Miscellaneous (Unresolved Clarification Entry) SEE LABEL COMMENTS DAILY XX ; Start 07/04/18 at 09:00; Stop 07/05/18 at 08:00; Status DC Miscellaneous (Unresolved Clarification Entry) SEE LABEL COMMENTS DAILY XX ; Start 07/05/18 at 09:00; Stop 07/05/18 at 11:33; Status DC Miscellaneous (Unresolved Clarification Entry) SEE LABEL COMMENTS DAILY XX ; Start 06/29/18 at 09:00; Status Cancel Multivitamins (Theragram-M) 1 tab DAILY PO Last administered on 07/06/18 09:41; Start 06/28/18 at 09:00 Nystatin (Mycostatin Powder, Nystop) groin and abdominal folds BID TOP Last administered on 5/14/19at 09:43; Start 06/28/18 at 21:00 Nystatin (Mycostatin) 5 ml QID PO Last administered on 07/06/18 09:40; Start 06/28/18 at 17:00 Oxycodone/ Acetaminophen (Percocet 5mg/ 325mg Tablet) 1 tab ASDIRECTED PRN PO MILD/MODERATE PAIN (PS 1-7) Last administered on 07/06/18 14:10; Start 07/06/18 at 14:30; Stop 07/06/18 at 15:30 Pantoprazole Sodium (Protonix) 40 mg DAILY PO Last administered on 07/06/18 09:40; Start 06/29/18 at 09:00 Paroxetine HCl (PAXil) 40 mg DAILY PO Last administered on 07/06/18 09:40; Start 06/29/18 at 09:00 Senna (Senokot) 1 tab QHS PO Last administered on 07/03/18at 20:49; Start 06/28/18 at 21:00 Sodium Chloride (Saline Lock Flush) 10 ml ASDIRECTED PRN IV SEE LABEL COMMENTS Last administered on 06/30/18 02:46; Start 06/29/18 at 05:45; Stop 07/01/18 at 23:21; Status DC Sodium Chloride (Saline Lock Flush) 10 ml PICC IV Last administered on 07/01/18 05:39; Start 06/29/18 at 06:00; Stop 07/01/18 at 23:21; Status DC Torsemide (Demadex) 20 mg BID@09,17 PO Last administered on 06/30/18 09:09; Start 06/28/18 at 17:00; Stop 06/30/18 at 10:29; Status DC Torsemide (Demadex) 30 mg BID@09,17 PO Last administered on 07/06/18at 09:41; Start 06/30/18 at 17:00 A-FIB/CHADSVASC A-FIB History Current/History of A-Fib/PAF?: No MAN RESTREPO MD July 06, 2018 15:21
[2018-07-06] MEDS: SENNA 8.6 MG TAB (SENOKOT) PO SCH ×3 (21:00→21:43)
[2018-07-06] MEDS: CYCLOBENZAPRINE 10 MG TAB PO SCH (21:35)
[2018-07-06] MEDS: ATORVASTATIN 20 MG TAB PO SCH (21:36)
[2018-07-07 06:00] VITALS: BP 128/61
[2018-07-07] MEDS: HEPARIN SOD (PORCINE) 5000 UNITS/ML VIAL SC SCH ×3 (06:20→20:54)
[2018-07-07 06:57] LABS: BASO # 0.1 10^3/uL (0.0-0.2); EOS # 0.4 10^3/uL (0.0-0.50); EOS % 7.3 % (0.0-3.0); HEMATOCRIT 34.3 % (36.0-47.0); HEMOGLOBIN 10.4 g/dl (12.0-15.5); LYMPH # 1.4 10^3/uL (1.5-4.5); LYMPH % 27.8 % (24.0-44.0); MEAN CORPUSCULAR HEMOGLOBIN 29.2 pg (27.0-33.0); MEAN CORPUSCULAR HGB CONC 30.3 g/dl (32.0-36.5); MEAN CORPUSCULAR VOLUME 96.3 fl (80.0-96.0); MONO # 0.3 10^3/uL (0.0-0.8); MONO % 6.5 % (0.0-5.0); NEUTROPHILS # 2.9 10^3/uL (1.8-7.7); NEUTROPHILS % 56.6 % (36.0-66.0); PLATELET COUNT, AUTOMATED 194 10^3/uL (150-450); RED BLOOD COUNT 3.56 10^6/uL (4.00-5.40)
[2018-07-07 07:26] LABS: CALCIUM LEVEL 8.7 MG/DL (8.8-10.2); CREATININE FOR GFR 2.16 MG/DL (0.55-1.30); GLOMERULAR FILTRATION RATE 24.4 (>45); POTASSIUM SERUM 4.5 MEQ/L (3.5-5.1)
[2018-07-07] MEDS: PARoxetine 20 MG TAB PO SCH (08:50)
[2018-07-07] MEDS: NYSTATIN 500,000 U/5 ML SUSP UDC PO SCH ×4 (08:50→20:55)
[2018-07-07] MEDS: MULTIVITAMINS/MINERALS THERAP 1 TAB PO SCH (08:50)
[2018-07-07] MEDS: TORSEMIDE 10 MG TABLET PO SCH ×2 (08:50→17:21)
[2018-07-07] MEDS: FERROUS GLUCONATE 324 MG TAB PO SCH ×2 (08:50→20:53)
[2018-07-07] MEDS: ACETAMINOPHEN 500 MG TAB PO SCH ×3 (08:50→20:54)
[2018-07-07] MEDS: AUGMENTIN 500 MG TAB PO SCH ×2 (08:50→20:52)
[2018-07-07] MEDS: CARVedilol 12.5 MG TAB PO SCH ×2 (08:51→20:53)
[2018-07-07] MEDS: HumaLOG INSULIN (NovoLOG) PER UNIT SC SCH ×4 (08:51→20:05)
[2018-07-07] MEDS: LEVEMIR (INSULIN DETEMIR) 1 UNITS/0.01ML SC SCH ×2 (08:51→20:55)
[2018-07-07] MEDS: ISOSORBIDE MON. (IMDUR) 30 MG XR TAB PO SCH (08:52)
[2018-07-07] MEDS: GABAPENTIN 300 MG CAP PO SCH ×3 (08:52→20:52)
[2018-07-07] MEDS: PANTOPRAZOLE 40MG TAB (PROTONIX) PO SCH (08:52)
[2018-07-07] MEDS: DOCUSATE SODIUM 100 MG CAP PO SCH ×2 (08:52→20:59)
[2018-07-07] MEDS: NYSTATIN 100,000 UNITS/GM TOPICAL PWD 15 GM TOP SCH ×2 (08:53→20:59)
[2018-07-07] MEDS: ANALGESIC BALM CRM 120 GM TOP SCH ×3 (08:53→20:59)
[2018-07-07 10:00] VITALS: BP 132/60
[2018-07-07 14:00] VITALS: BP 123/58
--- NOTE | 2018-07-07 15:26 | IPNPDOC ---
Date Seen The patient was seen on 07/07/18. Progress Note Vascular Surgery Dr Matthews HPI: 67-year-old F with a past medical history of diabetes, on insulin, hypertension, stage IV chronic kidney disease, follows with Dr. Dong, diabetic neuropathy, hyperlipidemia, who was admitted 06/16/18 with left lateral foot wound and calcaneal fracture. Patient had been seen by podiatry and was sent to the emergency room for further evaluation and treatment related to worsening of her foot wound. Vascular Surgery was consulted to assist with LLE foot wound. Patient is status post left BKA 06/22/[address] Matthews. Transferred to the care of ADAMA Ash, 06/28/18. Pt is OOB to chair. Denies any fevers, chills, weakness, fatigue, Headache, Chest Pain, Shortness of breath, cough, palpitations, abdominal pain, N/V/D or changes in bowel or bladder habits. PAST MEDICAL HISTORY: As mentioned above PAST SURGICAL HISTORY: She has had right 2nd, 4th and 5th toe amputations, left 3rd, 4th, 5th toe amputations plus left ankle sx, a hysterectomy, cholecystectomy, partial appendectomy. PE: GEN: 67yoF, appears stated age. Alert and oriented x 3. HEENT: Normocephalic, atraumatic. Moist mucous membranes. CHEST: Regular rate and rhythm, +S1, +S2 LUNGS: Clear to auscultation bilaterally. No wheezes, rales, or rhonchi. ABD: Round, soft, non-tender, non-distended. +Bowel sounds throughout. No rebound or guarding. EXT: Status post left BKA, bandage is intact. S/P LUE AVF, palpable thrill noted. Dressing intact. SKIN: [place], dry, warm. NEURO: Alert and oriented x 3. No focal deficits appreciated. Left foot MRI 1. Lateral soft tissue edema. There is adjacent edema within the bone marrow of the base of the fifth metatarsal on T2 fat-suppressed and T1-weighted images consistent with acute osteomyelitis. A smaller focus of edema is present within the distal and lateral cuboid also suspicious for acute osteomyelitis. 2. There is a transverse fracture across the calcaneus. Electronically signed by: Prem Valverde On 06/16/2018 21:26:12 PM A&P: 67-year-old lady with a past medical history of diabetes, on insulin, hypertension, stage IV chronic kidney disease, follows with Dr. Dong, diabetic neuropathy, hyperlipidemia, who was admitted 06/16/18 with left lateral foot wound and calcaneal fracture. Patient had been seen by podiatry and was sent to the emergency room for further evaluation and t reatment related to worsening of her foot wound. Vascular Surgery is consulted to assist with LLE foot wound. Chronic Left foot wound /Osteomyelitis of L foot, growing MSSA from wound site. Status post left BKA as per Dr. Matthews 06/22/18. Patient is afebrile. WBC 5.0. Cephazolin 1 gm IV q12h d/cd 06/27/18. Augmentin po BID D9. Appreciate ID assistance. Pain control with Dilaudid to 2 mg Q4 hr prn. Patient remains on gabapentin 300mg AM/ 600 mg at bedtime. Angiogram completed last admission. No intervention required. Acute renal failure superimposed on CKD Stage IV Demadex 30 mg BID Nephrology managing. HD access Dr. Yanez has requested vascular surgery to evaluate for AV fistula. Vein mapping completed 05/24/18. S/P AVF creation 07/06/[address] Matthews. Palpable thrill noted on exam today. Anemia in CKD Hgb 10.4 1 u PRBC 06/24/18. 2 u PRBC 06/29/18 Aranesp/ferrous sulfate as per Nephrology DVT prophylaxis. Subcutaneous heparin. A-FIB/CHADSVASC A-FIB History Current/History of A-Fib/PAF?: No VS, I&O, 24H, [facility] Vital Signs/I&O Vital Signs Date Time Temp Pulse Resp B/P (MAP) Pulse Ox O2 Delivery O2 Flow Rate FiO2 07/07/18 14:00 97.8 77 18 123/58 (79) 97 07/07/18 06:00 2.0 I&O- Last 24 Hours up to 6 AM 07/07/18 06:00 Intake Total 1270 ml Output Total 1470 ml Balance -200 ml Laboratory Data 24H LABS Laboratory Tests 2 07/06/18 17:11: Bedside Glucose (Misc Panel) 127H 07/06/18 19:58: Bedside Glucose (Misc Panel) 328H 07/06/18 20:56: Bedside Glucose (Misc Panel) 228H 07/07/18 00:00: Urine Color YELLOW, Urine Appearance HAZY, Urine pH 5.0, Urine Specific [place] 1.012, Urine Protein NEGATIVE, Urine Glucose (UA) NEGATIVE, Urine Ketones NEGATIVE, Urine Blood NEGATIVE, Urine Nitrite NEGATIVE, Urine Bilirubin NEGATIVE, Urine Urobilinogen 0.2, Urine Leukocyte Esterase NEGATIVE, Urine WBC (Auto) 0, Urine RBC (Auto) 3, Urine Hyaline Casts (Auto) 4, Urine Bacteria (Auto) NEGATIVE, Urine Squamous Epithelial Cells 1, Urine Sperm (Auto) 07/07/18 06:01: Bedside Glucose (Misc Panel) 213H 07/07/18 06:42: Immature Granulocyte % (Auto) 0.8, White Blood Count 5.0, Red Blood Count 3.56L, Hemoglobin 10.4L, Hematocrit 34.3L, Mean Corpuscular Volume 96.3H, Mean Corpuscular Hemoglobin 29.2, Mean Corpuscular Hemoglobin Concent 30.3L, Red Cell Distribution Width 15.3H, Platelet Count 194, Neutrophils (%) (Auto) 56.6, Lymphocytes (%) (Auto) 27.8, Monocytes (%) (Auto) 6.5H, Eosinophils (%) (Auto) 7.3H, Basophils (%) (Auto) 1.0, Neutrophils # (Auto) 2.9, Lymphocytes # (Auto) 1.4L, Monocytes # (Auto) 0.3, Eosinophils # (Auto) 0.4, Basophils # (Auto) 0.1, Nucleated Red Blood Cells % (auto) 0.0, Anion Gap 8, Glomerular Filtration Rate 24.4L, Blood Urea Nitrogen 57H, Creatinine 2.16H, Sodium Level 140, Potassium Level 4.5, Chloride Level 100, Carbon Dioxide Level 32, Calcium Level 8.7L 07/07/18 11:21: Bedside Glucose (Misc Panel) 202H CBC/BMP Laboratory Tests 07/07/18 06:42 Red Blood Count 3.56 L, Mean Corpuscular Volume 96.3 H, Mean Corpuscular Hemoglobin 29.2, Mean Corpuscular Hemoglobin Concent 30.3 L, Red Cell Distribution Width 15.3 H, Neutrophils (%) (Auto) 56.6, Lymphocytes (%) (Auto) 2 7.8, Monocytes (%) (Auto) 6.5 H, Eosinophils (%) (Auto) 7.3 H, Basophils (%) (Auto) 1.0, Neutrophils # (Auto) 2.9, Lymphocytes # (Auto) 1.4 L, Monocytes # (Auto) 0.3, Eosinophils # (Auto) 0.4, Basophils # (Auto) 0.1, Calcium Level 8.7 L Microbiology Microbiology 06/28/18 Urine Culture - Final, Complete Serratia Marcescens Clari Mike July 07, 2018 15:26
[2018-07-07 18:00] VITALS: BP 124/62
[2018-07-07 20:00] VITALS: BP 119/58
[2018-07-07] MEDS: SENNA 8.6 MG TAB (SENOKOT) PO SCH ×2 (20:52→21:00)
[2018-07-07] MEDS: CYCLOBENZAPRINE 10 MG TAB PO SCH (20:53)
[2018-07-07] MEDS: ATORVASTATIN 20 MG TAB PO SCH (20:54)
[2018-07-08 06:00] VITALS: BP 126/61
[2018-07-08] MEDS: HEPARIN SOD (PORCINE) 5000 UNITS/ML VIAL SC SCH ×3 (06:02→22:06)
[2018-07-08] MEDS: DOCUSATE SODIUM 100 MG CAP PO SCH ×2 (09:00→21:00)
[2018-07-08] MEDS: ANALGESIC BALM CRM 120 GM TOP SCH ×3 (09:00→21:00)
[2018-07-08 09:14] LABS: BASO # 0.1 10^3/uL (0.0-0.2); BASO % 1.3 % (0.0-1.0); EOS # 0.4 10^3/uL (0.0-0.50); EOS % 7.9 % (0.0-3.0); HEMATOCRIT 32.5 % (36.0-47.0); LYMPH # 1.2 10^3/uL (1.5-4.5); LYMPH % 25.3 % (24.0-44.0); MEAN CORPUSCULAR HEMOGLOBIN 29.9 pg (27.0-33.0); MEAN CORPUSCULAR HGB CONC 30.8 g/dl (32.0-36.5); MEAN CORPUSCULAR VOLUME 97.3 fl (80.0-96.0); MONO # 0.3 10^3/uL (0.0-0.8); MONO % 6.9 % (0.0-5.0); NEUTROPHILS # 2.8 10^3/uL (1.8-7.7); NEUTROPHILS % 57.8 % (36.0-66.0); PLATELET COUNT, AUTOMATED 183 10^3/uL (150-450); RED BLOOD COUNT 3.34 10^6/uL (4.00-5.40); WHITE BLOOD COUNT 4.8 10^3/uL (4.0-10.0)
[2018-07-08] MEDS: PANTOPRAZOLE 40MG TAB (PROTONIX) PO SCH (09:23)
[2018-07-08] MEDS: MULTIVITAMINS/MINERALS THERAP 1 TAB PO SCH (09:23)
[2018-07-08] MEDS: TORSEMIDE 10 MG TABLET PO SCH ×2 (09:23→16:57)
[2018-07-08] MEDS: ISOSORBIDE MON. (IMDUR) 30 MG XR TAB PO SCH (09:24)
[2018-07-08] MEDS: FERROUS GLUCONATE 324 MG TAB PO SCH ×2 (09:24→22:04)
[2018-07-08] MEDS: CARVedilol 12.5 MG TAB PO SCH ×2 (09:24→22:05)
[2018-07-08] MEDS: AUGMENTIN 500 MG TAB PO SCH (09:25)
[2018-07-08] MEDS: NYSTATIN 500,000 U/5 ML SUSP UDC PO SCH ×4 (09:25→22:06)
[2018-07-08] MEDS: PARoxetine 20 MG TAB PO SCH (09:25)
[2018-07-08] MEDS: ACETAMINOPHEN 500 MG TAB PO SCH ×3 (09:25→21:00)
[2018-07-08] MEDS: GABAPENTIN 300 MG CAP PO SCH ×3 (09:26→22:04)
[2018-07-08] MEDS: HumaLOG INSULIN (NovoLOG) PER UNIT SC SCH ×4 (09:27→21:00)
[2018-07-08] MEDS: NYSTATIN 100,000 UNITS/GM TOPICAL PWD 15 GM TOP SCH ×2 (09:27→22:07)
[2018-07-08] MEDS: LEVEMIR (INSULIN DETEMIR) 1 UNITS/0.01ML SC SCH ×2 (09:28→22:06)
[2018-07-08 09:34] LABS: CALCIUM LEVEL 9.2 MG/DL (8.8-10.2); CREATININE FOR GFR 2.15 MG/DL (0.55-1.30); GLOMERULAR FILTRATION RATE 24.5 (>45); POTASSIUM SERUM 4.5 MEQ/L (3.5-5.1)
--- NOTE | 2018-07-08 09:53 | IPNPDOC ---
PM&R Progress Note DATE OF SERVICE: July 07, 2018 Project Leader Progress Note Subjective: Patient reports her limb pain is much better and that she hasn't needed to take pain medication for a day. She says she was up all night urinating and states it currie slightly. REVIEW OF SYSTEMS: The following is a completed review of systems and has been reviewed. Review of systems otherwise unremarkable. PAIN: Patient self reports left leg pain EYES: denies recent vision loss EARS, NOSE, & THROAT: denies dysphagia, hearing loss or rhinorrhea CARDIOVASCULAR: denies chest pain or palpitations PULMONARY: Negative. Denies shortness of breath GASTROINTESTINAL: +constipation (improving) GENITOURINARY: Negative for dysuria MUSCULOSKELETAL: left BKA NEUROLOGICAL: peripheral neuropathy HEMATOLOGICAL:+anemia (improving) SKIN: LLE incision-line and proximal medial and lateral tibia blisters PSYCHIATRIC: Unremarkable All other review of systems found to be negative. PHYSICAL EXAMINATION: VITAL SIGNS: Please see below. GENERAL: Pleasant and cooperative. No acute distress. HEENT: PERRL. Extraocular movements intact. Clear conjunctiva CARDIOVASCULAR: Regular rate and rhythm. No murmurs, rubs, or gallops LUNGS: Clear to auscultation bilaterally. No wheezes. No rhonchi ABDOMEN: Soft, nontender, mildly-distended. Positive bowel sounds. Normal active bowel sounds] NEUROLOGICAL: Alert and oriented times three. Cranial nerves II through XII grossly intact. Sensation diminished in RLE to light touch and poor proprioception EXTREMITIES: 5\5 strength bilateral upper extremities. 5-\5 strength right lower extremity. 5-/5 strength in left hip flexor and knee extension bilat LE edema right foot with digits 2,3,and 5 amputated SKIN: LLE incision-line appears dry, less erythematous, no induration proximal medial, lateral posterior tibia blisters healing, proximal tibia erythematous patch (improving) Left antecubital fossa covered with bandage- no surrounding erythema, swelling, or induration ASSESSMENT:67-year-old F with past medical history of CKD4 and diabetic ulcers d/p multiple amputations who presents status post left BKA PLAN: 1. Rehab: s/p recent BKA- PT/OT, assess for DMEs, improving functional transfers squat pivots, Mod-I with wheelchair 2. Neuro: stable- avoid delirogenic meds 3. Cardiac: pmh HTN and HLD continue Imdur, Co-Reg and statin therapy- medicine consulted -last ECHO 04/2018 showing preserved systolic function with mild diastolic function- c/u diuretics -AV fistula palced 07/06/18 without complication 4. resp: encourage incentive spirometry, monitor for infection 5. ID: recent hx of MSSA left foot ulcer s/p BKA and course of IV Cefazoline, per ID recs monitor off antibiotics, however vascular would like a 10-day course of Augmentin- c/u 6. Renal: pmh CKD4 with recent emergent dialysis at last hospitalization, s/p gentle hydration with improvements- consulted renal to manage fluid balance and anemia-recs appreciated 7. Heme: anemia of chronic disease- renal consulted, c/u Iron, s/p erythropoietin 8. GI ppx: protonix- constipation resolved 9. DVT ppx: heparin 10. Endo: poorly controlled DM with neuropathy- c/u insulin and ISS, adjust prn 11. Pain: switched to oxycodone HCl prn, and c/u standing tylenol, f/u Flexeril qHS, c/u gabapentin 12. Psych: depression, c/u Paxil 13. : admission UA and UCx positive for SERRATIA MARCESCENS s/p one time dose of Fosfomycin , monitor PVRs- will recheck urine given dysuria symptoms 14. 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 Dispo: 07/13/18 to home, ramp to be built 07/12/18- progressing towards goals Allergies Coded Allergies: TAPE (Verified Allergy, Intermediate, RASH, 05/19/18) citric acid (Verified Allergy, Intermediate, HIVES/ITCHING, 05/19/18) sodium bicarbonate (Verified Allergy, Intermediate, HIVES/ITCHING, 05/19/18) Sulfa (Sulfonamide Antibiotics) (Verified Allergy, Mild, 06/28/18) rash hydrocodone (Verified Allergy, Mild, ITCHES, 05/19/18) Vital Signs Vital Signs Date Time Temp Pulse Resp B/P (MAP) Pulse Ox O2 Delivery O2 Flow Rate FiO2 07/08/18 09:24 126/61 07/08/18 09:24 72 07/08/18 06:00 98.2 17 97 07/07/18 21:00 2.0 Laboratory Data CBC/BMP Laboratory Tests 07/08/18 08:48 Red Blood Count 3.34 L, Mean Corpuscular Volume 97.3 H, Mean Corpuscular Hemoglobin 29.9, Mean Corpuscular Hemoglobin Concent 30.8 L, Red Cell Distrib ution Width 15.3 H, Neutrophils (%) (Auto) 57.8, Lymphocytes (%) (Auto) 25.3, Monocytes (%) (Auto) 6.9 H, Eosinophils (%) (Auto) 7.9 H, Basophils (%) (Auto) 1.3 H, Neutrophils # (Auto) 2.8, Lymphocytes # (Auto) 1.2 L, Monocytes # (Auto) 0.3, Eosinophils # (Auto) 0.4, Basophils # (Auto) 0.1, Calcium Level 9.2 Labs 24H Laboratory Tests 2 07/07/18 11:21: Bedside Glucose (Misc Panel) 202H 07/07/18 16:31: Bedside Glucose (Misc Panel) 81 07/07/18 19:41: Bedside Glucose (Misc Panel) 161H 07/08/18 06:04: Bedside Glucose (Misc Panel) 222H 07/08/18 08:48: Immature Granulocyte % (Auto) 0.8, White Blood Count 4.8, Red Blood Count 3.34L, Hemoglobin 10.0L, Hematocrit 32.5L, Mean Corpuscular Volume 97.3H, Mean Corpuscular Hemoglobin 29.9, Mean Corpuscular Hemoglobin Concent 30.8L, Red Cell Distribution Width 15.3H, Platelet Count 183, Neutrophils (%) (Auto) 57.8, Lymphocytes (%) (Auto) 25.3, Monocytes (%) (Auto) 6.9H, Eosinophils (%) (Auto) 7.9H, Basophils (%) (Auto) 1.3H, Neutrophils # (Auto) 2.8, Lymphocytes # (Auto) 1.2L, Monocytes # (Auto) 0.3, Eosinophils # (Auto) 0.4, Basophils # (Auto) 0.1, Nucleated Red Blood Cells % (auto) 0.0, Anion Gap 6L, Glomerular Filtration Rate 24.5L, Blood Urea Nitrogen 57H, Creatinine 2.15H, Sodium Level 138, Potassium Level 4.5, Chloride Level 100, Carbon Dioxide Level 32, Calcium Level 9.2 Microbiology Microbiology 06/28/18 Urine Culture - Final, Complete Serratia Marcescens Current Medications Current Medications Current Medications Acetaminophen (Tylenol Tab) 650 mg Q24H PRN PO fever; Start 06/28/18 at 12:45 Acetaminophen (Tylenol Tab) 1,000 mg TID PO Last administered on 07/08/18 09:25; Start 06/28/18 at 16:00 Al Hydrox/Mg Hydrox/Simethicone (Mylanta) 30 ml Q4HP PRN PO DYSPEPSIA; Start 06/28/18 at 12:45 Amoxicillin/ Clavulanate Potassium (Augmentin) 500 mg BID PO Last administered on 07/08/18 09:25; Start 06/28/18 at 21:00; Stop 07/08/18 at 09:01; Status DC Atorvastatin Calcium (Lipitor) 40 mg QHS PO Last administered on 07/07/18at 20:54; Start 06/28/18 at 21:00 Bisacodyl (Dulcolax Suppository) 10 mg DAILYPRN PRN DC CONSTIPATION; Start 06/28/18 at 12:45 Carvedilol (COReg) 12.5 mg BID PO Last administered on 07/08/18 09:24; Start 06/28/18 at 21:00 Cyclobenzaprine HCl (Flexeril) 10 mg QHS PO Last administered on 07/07/18at 20:53; Start 06/28/18 at 21:00 Darbepoetin German (Aranesp) 100 mcg Fr@09 SC Last administered on 07/02/18at 09:38; Start 07/02/18 at 09:00 Dextrose (Dextrose 50%) 25 ml ASDIRECTED PRN IV SEE LABEL COMMENTS; Start 06/28/18 at 12:45 Docusate Sodium (Colace) 100 mg BID PO Last administered on 07/04/18at 08:25; Start 06/28/18 at 21:00 Fentanyl Citrate (Sublimaze) 25 mcg Q5MP PRN IV MODERATE PAIN (PS 4-7); Start 07/06/18 at 13:45; Stop 07/06/18 at 14:45; Status DC Ferrous Gluconate (Fergon) 324 mg BID PO Last administered on 07/08/18 09:24; Start 06/28/18 at 21:00 Gabapentin (Neurontin) 300 mg BID PO Last administered on 07/07/18at 08:52; Start 07/03/18 at 09:00; Stop 07/07/18 at 09:43; Status DC Gabapentin (Neurontin) 300 mg QAM PO Last administered on 07/01/18 09:05; Start 06/29/18 at 09:00; Stop 07/01/18 at 10:31; Status DC Gabapentin (Neurontin) 300 mg TID PO Last administered on 07/08/18 09:26; Start 07/07/18 at 16:00 Gabapentin (Neurontin) 600 mg Q8H PO Last administered on 07/02/18at 05:35; Start 07/01/18 at 14:00; Stop 07/02/18 at 13:27; Status DC Gabapentin (Neurontin) 600 mg QHS PO Last administered on 06/30/18at 20:56; Start 06/28/18 at 21:00; Stop 07/01/18 at 10:31; Status DC Glucagon (Glucagon) 1 mg ASDIRECTED PRN SC SEE LABEL COMMENTS; Start 06/28/18 at 12:45 Glucose (Glucose) 16 GM ASDIRECTED PRN PO SEE LABEL COMMENTS; Start 06/28/18 at 12:45 Heparin Sodium (Heparin (Flush)) 200 units ASDIRECTED PRN IV SEE LABEL COMMENTS Last administered on 06/30/18at 02:45; Start 06/29/18 at 05:45; Stop 07/01/18 at 23:21; Status DC Heparin Sodium (Heparin (Flush)) 200 units PICC IV Last administered on 07/01/18at 05:39; Start 06/29/18 at 06:00; Stop 07/01/18 at 23:21; Status DC Heparin Sodium (Porcine) (Heparin) 5,000 units Q8H SC Last administered on 07/08/18at 06:02; Start 06/28/18 at 22:00 Hydromorphone HCl (Dilaudid) 1 mg Q4HP PRN PO MODERATE/SEVERE PAIN (PS 5-10); Start 07/05/18 at 15:45; Stop 07/06/18 at 17:34; Status DC Hydromorphone HCl (Dilaudid) 2 mg Q24H PRN PO MODERATE/SEVERE PAIN (PS 5-10) Last administered on 07/05/18 21:25; Start 07/05/18 at 15:45; Stop 07/06/18 at 17:34; Status DC Hydromorphone HCl (Dilaudid) 2 mg Q4HP PRN PO MODERATE/SEVERE PAIN (PS 5-10) Last administered on 07/05/18 06:28; Start 06/28/18 at 12:45; Stop 07/05/18 at 15:41; Status DC Insulin Detemir (Levemir Insulin) 30 units BID SC Last administered on 9at 09:28; Start 06/28/18 at 21:00; Status Future hold Insulin Human Lispro (HumaLOG INSULIN) SEE PROTOCOL TABLE AC SC Last administered on 07/08/18 09:27; Start 06/28/18 at 17:30 Insulin Human Lispro (HumaLOG INSULIN) SEE PROTOCOL TABLE QHS SC Last administered on 07/05/18 21:23; Start 06/28/18 at 21:00 Isosorbide Mononitrate (Imdur) 30 mg QAM PO Last administered on 07/08/18 09:24; Start 06/29/18 at 09:00 Lactulose (Cephulac) 15 ml DAILYPRN PRN PO CONSTIPATION Last administered on 06/29/18 14:05; Start 06/29/18 at 12:15 Magnesium Hydroxide (Milk Of Magnesia) 30 ml DAILYPRN PRN PO CONSTIPATION Last administered on 06/29/18 21:21; Start 06/28/18 at 12:45; Stop 06/30/18 at 15:54; Status DC Magnesium Oxide (Mag-Ox) 400 mg DAILY PO Last administered on 06/30/18 09:10; Start 06/29/18 at 09:00; Stop 07/01/18 at 04:16; Status DC Menthol/Methyl Salicylate (Bengay Cream) TID TOP Last administered on 5/13/19at 08:33; Start 06/29/18 at 09:00 Miscellaneous (Unresolved Clarification Entry) SEE LABEL COMMENTS DAILY XX ; Start 07/04/18 at 09:00; Stop 07/05/18 at 08:00; Status DC Miscellaneous (Unresolved Clarification Entry) SEE LABEL COMMENTS DAILY XX ; Start 07/05/18 at 09:00; Stop 07/05/18 at 11:33; Status DC Miscellaneous (Unresolved Clarification Entry) SEE LABEL COMMENTS DAILY XX ; Start 06/29/18 at 09:00; Status Cancel Multivitamins (Theragram-M) 1 tab DAILY PO Last administered on 07/08/18 09:23; Start 06/28/18 at 09:00 Nystatin (Mycostatin Powder, Nystop) groin and abdominal folds BID TOP Last administered on 07/08/18 09:27; Start 06/28/18 at 21:00 Nystatin (Mycostatin) 5 ml QID PO Last administered on 07/08/18 09:25; Start 06/28/18 at 17:00 Oxycodone HCl (Roxicodone, Oxyir) 5 mg Q4HP PRN PO PAIN; Start 07/06/18 at 17:45 Oxycodone/ Acetaminophen (Percocet 5mg/ 325mg Tablet) 1 tab ASDIRECTED PRN PO MILD/MODERATE PAIN (PS 1-7) Last administered on 07/06/18at 14:10; Start 07/06/18 at 14:30; Stop 07/06/18 at 15:30; Status DC Pantoprazole Sodium (Protonix) 40 mg DAILY PO Last administered on 07/08/18 09:23; Start 06/29/18 at 09:00 Paroxetine HCl (PAXil) 40 mg DAILY PO Last administered on 07/08/18 09:25; Start 06/29/18 at 09:00 Senna (Senokot) 1 tab QHS PO Last administered on 07/03/18at 20:49; Start 06/28/18 at 21:00 Sodium Chloride (Saline Lock Flush) 10 ml ASDIRECTED PRN IV SEE LABEL COMMENTS Last administered on 06/30/18at 02:46; Start 06/29/18 at 05:45; Stop 07/01/18 at 23:21; Status DC Sodium Chloride (Saline Lock Flush) 10 ml PICC IV Last administered on 07/01/18at 05:39; Start 06/29/18 at 06:00; Stop 07/01/18 at 23:21; Status DC Torsemide (Demadex) 20 mg BID@,17 PO Last administered on 06/30/18at 09:09; Start 06/28/18 at 17:00; Stop 06/30/18 at 10:29; Status DC Torsemide (Demadex) 30 mg BID@,17 PO Last administered on 07/08/18at 09:23; Start 06/30/18 at 17:00 A-FIB/CHADSVASC A-FIB History Current/History of A-Fib/PAF?: No MAN RESTREPO MD July 08, 2018 09:53
--- NOTE | 2018-07-08 09:54 | IPNPDOC ---
PM&R Progress Note DATE OF SERVICE: July 08, 2018 Administrative Services Officer Progress Note Subjective: Patient reports her residual limb feels warm today, throbbing, and more painful. Denies fevers or chills. REVIEW OF SYSTEMS: The following is a completed review of systems and has been reviewed. Review of systems otherwise unremarkable. PAIN: Patient self reports left leg pain EYES: denies recent vision loss EARS, NOSE, & THROAT: denies dysphagia, hearing loss or rhinorrhea CARDIOVASCULAR: denies chest pain or palpitations PULMONARY: Negative. Denies shortness of breath GASTROINTESTINAL: +constipation (improving) GENITOURINARY: Negative for dysuria MUSCULOSKELETAL: left BKA NEUROLOGICAL: peripheral neuropathy HEMATOLOGICAL:+anemia SKIN: LLE incision-line and proximal medial and lateral tibia blisters PSYCHIATRIC: Unremarkable All other review of systems found to be negative. PHYSICAL EXAMINATION: VITAL SIGNS: Please see below. GENERAL: Pleasant and cooperative. No acute distress. HEENT: PERRL. Extraocular movements intact. Clear conjunctiva CARDIOVASCULAR: Regular rate and rhythm. No murmurs, rubs, or gallops LUNGS: Clear to auscultation bilaterally. No wheezes. No rhonchi ABDOMEN: Soft, nontender, mildly-distended. Positive bowel sounds. Normal active bowel sounds] NEUROLOGICAL: Alert and oriented times three. Cranial nerves II through XII grossly intact. Sensation diminished in RLE to light touch and poor proprioception EXTREMITIES: 5\5 strength bilateral upper extremities. 5-\5 strength right lower extremity. 5-/5 strength in left hip flexor and knee extension bilat LE edema right foot with digits 2,3,and 5 amputated SKIN: LLE incision-line and per-wound area more erythematous, warm, painful to touch -proximal medial, lateral posterior tibia blisters c/d/i ASSESSMENT:67-year-old F with past medical history of CKD4 and diabetic ulcers d/p multiple amputations who presents status post left BKA PLAN: 1. Rehab: PT/OT, assess for DMEs, improving squat pivot transfers and approaching mod-I for functional mobility from wheelchair level 2. Neuro: stable- avoid delirogenic meds 3. Cardiac: pmh HTN and HLD continue Imdur, Co-Reg and statin therapy- medicine consulted -last ECHO 04/2018 showing preserved systolic function with mild diastolic function- c/u diuretics -s/p AV fistula 07/07/[address] Matthews 4. resp: encourage incentive spirometry, monitor for infection 5. ID: recent hx of MSSA left foot ulcer s/p BKA and course of IV Cefazoline, per ID recs monitor off antibiotics, s/p 10-day course of Augmentin-concern today that cristian-incision area is more erythematous, warm, painful to touch compared to previous exams, concern for infection despite course of Augmentin, will switch to Keflex and monitor 6. Renal: pmh CKD4 with recent emergent dialysis at last hospitalization, s/p gentle hydration with improvements- consulted renal to manage fluid balance and anemia-recs appreciated 7. Heme: anemia of chronic disease- renal consulted, c/u Iron 8. GI ppx: protonix- constipation resolved 9. DVT ppx: heparin 10. Endo: poorly controlled DM with neuropathy- c/u insulin and ISS, adjust prn 11. Pain: lowered Dilaudid 1mg standing , and c/u standing tylenol, f/u Flexeril qHS, c/u gabapentin at lower dosing as possible culprit for tremors 12. Psych: depression, c/u Paxil 13. : admission UA and UCx positive for SERRATIA MARCESCENS s/p one time dose of Fosfomycin , repeat UA negative monitor PVRs 14. 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 Dispo: 07/13/18 to home, ramp to be built over the weekend and home eval 07/12/18 Allergies Coded Allergies: TAPE (Verified Allergy, Intermediate, RASH, 05/19/18) citric acid (Verified Allergy, Intermediate, HIVES/ITCHING, 05/19/18) sodium bicarbonate (Verified Allergy, Intermediate, HIVES/ITCHING, 05/19/18) Sulfa (Sulfonamide Antibiotics) (Verified Allergy, Mild, 06/28/18) rash hydrocodone (Verified Allergy, Mild, ITCHES, 05/19/18) Vital Signs Vital Signs Date Time Temp Pulse Resp B/P (MAP) Pulse Ox O2 Delivery O2 Flow Rate FiO2 07/08/18 09:24 126/61 07/08/18 09:24 72 07/08/18 06:00 98.2 17 97 07/07/18 21:00 2.0 Laboratory Data CBC/BMP Laboratory Tests 07/08/18 08:48 Red Blood Count 3.34 L, Mean Corpuscular Volume 97.3 H, Mean Corpuscular Hemoglobin 29.9, Mean Corpuscular Hemoglobin Concent 30.8 L, Red Cell Distribution Width 15.3 H, Neutrophils (%) (Auto) 57.8, Lymphocytes (%) (Auto) 25.3, Monocytes (%) (Auto) 6.9 H, Eosinophils (%) (Auto) 7.9 H, Basophils (%) (Auto) 1.3 H, Neutrophils # (Auto) 2.8, Lymphocytes # (Auto) 1.2 L, Monocytes # (Auto) 0.3, Eosinophils # (Auto) 0.4, Basophils # (Auto) 0.1, Calcium Level 9.2 Labs 24H Laboratory Tests 2 07/07/18 11:21: Bedside Glucose (Misc Panel) 202H 07/07/18 16:31: Bedside Glucose (Misc Panel) 81 07/07/18 19:41: Bedside Glucose (Misc Panel) 161H 07/08/18 06:04: Bedside Glucose (Misc Panel) 222H 07/08/18 08:48: Immature Granulocyte % (Auto) 0.8, White Blood Count 4.8, Red Blood Count 3.34L, Hemoglobin 10.0L, Hematocrit 32.5L, Mean Corpuscular Volume 97.3H, Mean Corpusc ular Hemoglobin 29.9, Mean Corpuscular Hemoglobin Concent 30.8L, Red Cell Distribution Width 15.3H, Platelet Count 183, Neutrophils (%) (Auto) 57.8, Lymphocytes (%) (Auto) 25.3, Monocytes (%) (Auto) 6.9H, Eosinophils (%) (Auto) 7.9H, Basophils (%) (Auto) 1.3H, Neutrophils # (Auto) 2.8, Lymphocytes # (Auto) 1.2L, Monocytes # (Auto) 0.3, Eosinophils # (Auto) 0.4, Basophils # (Auto) 0.1, Nucleated Red Blood Cells % (auto) 0.0, Anion Gap 6L, Glomerular Filtration Rate 24.5L, Blood Urea Nitrogen 57H, Creatinine 2.15H, Sodium Level 138, Potassium Level 4.5, Chloride Level 100, Carbon Dioxide Level 32, Calcium Level 9.2 Microbiology Microbiology 06/28/18 Urine Culture - Final, Complete Serratia Marcescens Current Medications Current Medications Current Medications Acetaminophen (Tylenol Tab) 650 mg Q24H PRN PO fever; Start 06/28/18 at 12:45 Acetaminophen (Tylenol Tab) 1,000 mg TID PO Last administered on 07/08/18 09:25; Start 06/28/18 at 16:00 Al Hydrox/Mg Hydrox/Simethicone (Mylanta) 30 ml Q4HP PRN PO DYSPEPSIA; Start 06/28/18 at 12:45 Amoxicillin/ Clavulanate Potassium (Augmentin) 500 mg BID PO Last administered on 07/08/18 09:25; Start 06/28/18 at 21:00; Stop 07/08/18 at 09:01; Status DC Atorvastatin Calcium (Lipitor) 40 mg QHS PO Last administered on 07/07/18at 20:54; Start 06/28/18 at 21:00 Bisacodyl (Dulcolax Suppository) 10 mg DAILYPRN PRN [place] CONSTIPATION; Start 06/28/18 at 12:45 Carvedilol (COReg) 12.5 mg BID PO Last administered on 07/08/18 09:24; Start 06/28/18 at 21:00 Cyclobenzaprine HCl (Flexeril) 10 mg QHS PO Last administered on 07/07/18at 20:53; Start 06/28/18 at 21:00 Darbepoetin German (Aranesp) 100 mcg Fr@09 SC Last administered on 07/02/18at 09:38; Start 07/02/18 at 09:00 Dextrose (Dextrose 50%) 25 ml ASDIRECTED PRN IV SEE LABEL COMMENTS; Start at 12:45 Docusate Sodium (Colace) 100 mg BID PO Last administered on 07/04/18at 08:25; Start 06/28/18 at 21:00 Fentanyl Citrate (Sublimaze) 25 mcg Q5MP PRN IV MODERATE PAIN (PS 4-7); Start 07/06/18 at 13:45; Stop 07/06/18 at 14:45; Status DC Ferrous Gluconate (Fergon) 324 mg BID PO Last administered on 07/08/18 09:24; Start 06/28/18 at 21:00 Gabapentin (Neurontin) 300 mg BID PO Last administered on 07/07/18at 08:52; Start 07/03/18 at 09:00; Stop 07/07/18 at 09:43; Status DC Gabapentin (Neurontin) 300 mg QAM PO Last administered on 07/01/18 09:05; Start 06/29/18 at 09:00; Stop 07/01/18 at 10:31; Status DC Gabapentin (Neurontin) 300 mg TID PO Last administered on 07/08/18 09:26; Start 07/07/18 at 16:00 Gabapentin (Neurontin) 600 mg Q8H PO Last administered on 07/02/18 05:35; Start 07/01/18 at 14:00; Stop 07/02/18 at 13:27; Status DC Gabapentin (Neurontin) 600 mg QHS PO Last administered on 06/30/18 20:56; Start 06/28/18 at 21:00; Stop 07/01/18 at 10:31; Status DC Glucagon (Glucagon) 1 mg ASDIRECTED PRN SC SEE LABEL COMMENTS; Start 06/28/18 at 12:45 Glucose (Glucose) 16 GM ASDIRECTED PRN PO SEE LABEL COMMENTS; Start 06/28/18 at 12:45 Heparin Sodium (Heparin (Flush)) 200 units ASDIRECTED PRN IV SEE LABEL COMMENTS Last administered on 06/30/18at 02:45; Start 06/29/18 at 05:45; Stop 07/01/18 at 23:21; Status DC Heparin Sodium (Heparin (Flush)) 200 units PICC IV Last administered on 07/01/18at 05:39; Start 06/29/18 at 06:00; Stop 07/01/18 at 23:21; Status DC Heparin Sodium (Porcine) (Heparin) 5,000 units Q8H SC Last administered on 07/08/18 06:02; Start 06/28/18 at 22:00 Hydromorphone HCl (Dilaudid) 1 mg Q4HP PRN PO MODERATE/SEVERE PAIN (PS 5-10); Start 07/05/18 at 15:45; Stop 07/06/18 at 17:34; Status DC Hydromorphone HCl (Dilaudid) 2 mg Q24H PRN PO MODERATE/SEVERE PAIN (PS 5-10) Last administered on 07/05/18 21:25; Start 07/05/18 at 15:45; Stop 07/06/18 at 17:34; Status DC Hydromorphone HCl (Dilaudid) 2 mg Q4HP PRN PO MODERATE/SEVERE PAIN (PS 5-10) Last administered on 07/05/18 06:28; Start 06/28/18 at 12:45; Stop 07/05/18 at 15:41; Status DC Insulin Detemir (Levemir Insulin) 30 units BID SC Last administered on 07/08/18 09:28; Start 06/28/18 at 21:00; Status Future hold Insulin Human Lispro (HumaLOG INSULIN) SEE PROTOCOL TABLE AC SC Last administe red on 07/08/18 09:27; Start 06/28/18 at 17:30 Insulin Human Lispro (HumaLOG INSULIN) SEE PROTOCOL TABLE QHS SC Last administered on 07/05/18 21:23; Start 06/28/18 at 21:00 Isosorbide Mononitrate (Imdur) 30 mg QAM PO Last administered on 07/08/18 09:24; Start 06/29/18 at 09:00 Lactulose (Cephulac) 15 ml DAILYPRN PRN PO CONSTIPATION Last administered on 06/29/18 14:05; Start 06/29/18 at 12:15 Magnesium Hydroxide (Milk Of Magnesia) 30 ml DAILYPRN PRN PO CONSTIPATION Last administered on 06/29/18 21:21; Start 06/28/18 at 12:45; Stop 06/30/18 at 15:54; Status DC Magnesium Oxide (Mag-Ox) 400 mg DAILY PO Last administered on 06/30/18 09:10; Start 06/29/18 at 09:00; Stop 07/01/18 at 04:16; Status DC Menthol/Methyl Salicylate (Bengay Cream) TID TOP Last administered on 5/13/19at 08:33; Start 06/29/18 at 09:00 Miscellaneous (Unresolved Clarification Entry) SEE LABEL COMMENTS DAILY XX ; Start 07/04/18 at 09:00; Stop 07/05/18 at 08:00; Status DC Miscellaneous (Unresolved Clarification Entry) SEE LABEL COMMENTS DAILY XX ; Start 07/05/18 at 09:00; Stop 07/05/18 at 11:33; Status DC Miscellaneous (Unresolved Clarification Entry) SEE LABEL COMMENTS DAILY XX ; Start 06/29/18 at 09:00; Status Cancel Multivitamins (Theragram-M) 1 tab DAILY PO Last administered on 07/08/18 09:23; Start 06/28/18 at 09:00 Nystatin (Mycostatin Powder, Nystop) groin and abdominal folds BID TOP Last administered on 07/08/18 09:27; Start 06/28/18 at 21:00 Nystatin (Mycostatin) 5 ml QID PO Last administered on 07/08/18 09:25; Start 06/28/18 at 17:00 Oxycodone HCl (Roxicodone, Oxyir) 5 mg Q4HP PRN PO PAIN; Start 07/06/18 at 17:45 Oxycodone/ Acetaminophen (Percocet 5mg/ 325mg Tablet) 1 tab ASDIRECTED PRN PO MILD/MODERATE PAIN (PS 1-7) Last administered on 07/06/18at 14:10; Start 07/06/18 at 14:30; Stop 07/06/18 at 15:30; Status DC Pantoprazole Sodium (Protonix) 40 mg DAILY PO Last administered on 07/08/18 09:23; Start 06/29/18 at 09:00 Paroxetine HCl (PAXil) 40 mg DAILY PO Last administered on 07/08/18 09:25; Start 06/29/18 at 09:00 Senna (Senokot) 1 tab QHS PO Last administered on 07/03/18at 20:49; Start 06/28/18 at 21:00 Sodium Chloride (Saline Lock Flush) 10 ml ASDIRECTED PRN IV SEE LABEL COMMENTS Last administered on 06/30/18at 02:46; Start 06/29/18 at 05:45; Stop 07/01/18 at 23:21; Status DC Sodium Chloride (Saline Lock Flush) 10 ml PICC IV Last administered on 07/01/18at 05:39; Start 06/29/18 at 06:00; Stop 07/01/18 at 23:21; Status DC Torsemide (Demadex) 20 mg BID@,17 PO Last administered on 06/30/18at 09:09; Start 06/28/18 at 17:00; Stop 06/30/18 at 10:29; Status DC Torsemide (Demadex) 30 mg BID@,17 PO Last administered on 07/08/18at 09:23; Start 06/30/18 at 17:00 A-FIB/CHADSVASC A-FIB History Current/History of A-Fib/PAF?: No MAN RESTREPO MD July 08, 2018 09:53
[2018-07-08 14:00] VITALS: BP 132/65
[2018-07-08 15:38] LABS: C REACTIVE PROTEIN QUANTITATIV 1.49 MG/DL (0.00-0.30)
[2018-07-08] MEDS: LACTOBACILLUS ACIDOPHILUS CAP (BACID) PO SCH ×2 (16:56→22:04)
[2018-07-08] MEDS: oxyCODONE 5MG TAB PO PRN ×2 (17:01→22:05)
[2018-07-08] MEDS: SENNA 8.6 MG TAB (SENOKOT) PO SCH (21:00)
[2018-07-08 22:00] VITALS: BP 145/67
[2018-07-08] MEDS: ATORVASTATIN 20 MG TAB PO SCH (22:04)
[2018-07-08] MEDS: CEPHALEXIN 500 MG CAP PO SCH (22:04)
[2018-07-08] MEDS: CYCLOBENZAPRINE 10 MG TAB PO SCH (22:05)
[2018-07-09 06:00] VITALS: BP 116/57
[2018-07-09] MEDS: HEPARIN SOD (PORCINE) 5000 UNITS/ML VIAL SC SCH ×3 (06:02→21:46)
[2018-07-09] MEDS: oxyCODONE 5MG TAB PO PRN (06:04)
[2018-07-09 06:49] LABS: BASO # 0.1 10^3/uL (0.0-0.2); BASO % 1.1 % (0.0-1.0); EOS # 0.4 10^3/uL (0.0-0.50); EOS % 7.5 % (0.0-3.0); HEMATOCRIT 33.9 % (36.0-47.0); HEMOGLOBIN 10.4 g/dl (12.0-15.5); LYMPH # 1.6 10^3/uL (1.5-4.5); LYMPH % 28.9 % (24.0-44.0); MEAN CORPUSCULAR HEMOGLOBIN 30.3 pg (27.0-33.0); MEAN CORPUSCULAR HGB CONC 30.7 g/dl (32.0-36.5); MEAN CORPUSCULAR VOLUME 98.8 fl (80.0-96.0); MONO # 0.4 10^3/uL (0.0-0.8); MONO % 7.5 % (0.0-5.0); NEUTROPHILS % 54.5 % (36.0-66.0); RED BLOOD COUNT 3.43 10^6/uL (4.00-5.40); WHITE BLOOD COUNT 5.6 10^3/uL (4.0-10.0)
[2018-07-09 07:15] LABS: CALCIUM LEVEL 9.3 MG/DL (8.8-10.2); CREATININE FOR GFR 2.14 MG/DL (0.55-1.30); GLOMERULAR FILTRATION RATE 24.6 (>45); POTASSIUM SERUM 4.1 MEQ/L (3.5-5.1)
--- NOTE | 2018-07-09 07:20 | IPN ---
DATE: 07/08/2018 Norma is doing well. She is in good spirits. She is anxious to go home hopefully on Thursday. She has been able to stand up on one leg. She still is not able to wear her prosthesis because of irritation of the stump sutures are still in place. She has no nausea, vomiting or diarrhea. No abdominal pain. She has no urinary symptoms frequency, dysuria, hematuria or flank pain. PHYSICAL EXAMINATION: Abdomen: Soft, nontender visceromegaly. Back: No CVA or lumbosacral tenderness. Extremities: Right lower extremity +1 edema left below-knee amputation with suture and joselito in place. There is still some erythema along the suture line but no purulent discharge. There is a skin abrasion right at the popliteal fossa probably from pressure ulcer from the prosthesis plastic hardware. Currently the patient is not using any prosthetic devices. LABORATORY DATA: White count 4.8, hemoglobin 10, hematocrit 32.5, platelets 183, 58% neutrophils, 25% lymphocytes, 7% monocytes. Sodium 138, potassium 4.5, chloride 100, bicarb 32, BUN 57, creatinine 2.15, glucose 288, calcium 9.2, CRP 1.49. Urinalysis had zero white cells and three red cells on 07/07. Urine culture that was resistant to cefazolin. IMPRESSION: 1. Status post left BKA with healing wound currently off antibiotics. She will not be able to put the prosthesis on until sutures are removed and better healing. today. 2. Asymptomatic bacteria on 06/28 the patient was not treated for Serratia a repeat urinalysis a week later was completely benign and patient remainder asymptomatic. 3. Insulin-dependent diabetes fairly controlled. The patient needs better compliance with diet. PLAN: Discharge home next week. The patient currently off antibiotic doing well.
[2018-07-09] MEDS: DOCUSATE SODIUM 100 MG CAP PO SCH ×2 (09:00→21:00)
[2018-07-09] MEDS: ISOSORBIDE MON. (IMDUR) 30 MG XR TAB PO SCH (09:00)
[2018-07-09] MEDS: CARVedilol 12.5 MG TAB PO SCH ×2 (09:06→21:54)
[2018-07-09] MEDS: CEPHALEXIN 500 MG CAP PO SCH ×2 (09:06→21:45)
[2018-07-09] MEDS: NYSTATIN 500,000 U/5 ML SUSP UDC PO SCH ×4 (09:06→21:46)
[2018-07-09] MEDS: PARoxetine 20 MG TAB PO SCH (09:07)
[2018-07-09] MEDS: NYSTATIN 100,000 UNITS/GM TOPICAL PWD 15 GM TOP SCH ×2 (09:07→21:48)
[2018-07-09] MEDS: ACETAMINOPHEN 500 MG TAB PO SCH ×3 (09:07→21:46)
[2018-07-09] MEDS: MULTIVITAMINS/MINERALS THERAP 1 TAB PO SCH (09:07)
[2018-07-09] MEDS: LACTOBACILLUS ACIDOPHILUS CAP (BACID) PO SCH ×3 (09:07→21:46)
[2018-07-09] MEDS: PANTOPRAZOLE 40MG TAB (PROTONIX) PO SCH (09:08)
[2018-07-09] MEDS: FERROUS GLUCONATE 324 MG TAB PO SCH ×2 (09:08→21:45)
[2018-07-09] MEDS: TORSEMIDE 10 MG TABLET PO SCH ×2 (09:08→16:03)
[2018-07-09] MEDS: LEVEMIR (INSULIN DETEMIR) 1 UNITS/0.01ML SC SCH ×2 (09:09→21:47)
[2018-07-09] MEDS: HumaLOG INSULIN (NovoLOG) PER UNIT SC SCH ×4 (09:10→21:00)
[2018-07-09] MEDS: ANALGESIC BALM CRM 120 GM TOP SCH ×3 (09:11→21:00)
[2018-07-09] MEDS: GABAPENTIN 300 MG CAP PO SCH ×3 (09:11→21:45)
--- NOTE | 2018-07-09 10:15 | IPNPDOC ---
PM&R Progress Note DATE OF SERVICE: July 09, 2018 Orthopedic Technician Progress Note Subjective: Patient reports she feels well and that she was able to do squats successfully in therapy. REVIEW OF SYSTEMS: The following is a completed review of systems and has been reviewed. Review of systems otherwise unremarkable. PAIN: Patient self reports left leg pain EYES: denies recent vision loss EARS, NOSE, & THROAT: denies dysphagia, hearing loss or rhinorrhea CARDIOVASCULAR: denies chest pain or palpitations PULMONARY: Negative. Denies shortness of breath GASTROINTESTINAL: +constipation (improving) GENITOURINARY: Negative for dysuria MUSCULOSKELETAL: left BKA NEUROLOGICAL: peripheral neuropathy HEMATOLOGICAL:+anemia SKIN: LLE incision-line and proximal medial and lateral tibia blisters PSYCHIATRIC: Unremarkable All other review of systems found to be negative. PHYSICAL EXAMINATION: VITAL SIGNS: Please see below. GENERAL: Pleasant and cooperative. No acute distress. HEENT: PERRL. Extraocular movements intact. Clear conjunctiva CARDIOVASCULAR: Regular rate and rhythm. No murmurs, rubs, or gallops LUNGS: Clear to auscultation bilaterally. No wheezes. No rhonchi ABDOMEN: Soft, nontender, mildly-distended. Positive bowel sounds. Normal active bowel sounds] NEUROLOGICAL: Alert and oriented times three. Cranial nerves II through XII sandra sly intact. Sensation diminished in RLE to light touch and poor proprioception EXTREMITIES: 5\5 strength bilateral upper extremities. 5-\5 strength right lower extremity. 5-/5 strength in left hip flexor and knee extension bilat LE edema right foot with digits 2,3,and 5 amputated SKIN: LLE incision-line and per-wound area more erythematous, warm, painful to touch -proximal medial, lateral posterior tibia blisters c/d/i ASSESSMENT:67-year-old F with past medical history of CKD4 and diabetic ulcers d/p multiple amputations who presents status post left BKA PLAN: 1. Rehab: PT/OT, assess for DMEs, improving squat pivot transfers and approaching mod-I for functional mobility from wheelchair level, able to perform squats 2. Neuro: stable- avoid delirogenic meds 3. Cardiac: pmh HTN and HLD continue Imdur, Co-Reg and statin therapy- medicine consulted -last ECHO 04/2018 showing preserved systolic function with mild diastolic function- c/u diuretics -s/p AV fistula 07/06/[address] Matthews 4. resp: encourage incentive spirometry, monitor for infection 5. ID: recent hx of MSSA left foot ulcer s/p BKA and course of IV Cefazoline, per ID recs monitor off antibiotics, s/p 10-day course of Augmentin-concern yesterday that cristian-incision area is more erythematous, warm, painful to touch compared to previous exams, concern for infection despite course of Augmentin, switched to Keflex and c/u to monitor 6. Renal: pmh CKD4 with recent emergent dialysis at last hospitalization, s/p gentle hydration with improvements- consulted renal to manage fluid balance and anemia-recs appreciated 7. Heme: anemia of chronic disease- renal consulted, c/u Iron 8. GI ppx: protonix- constipation resolved 9. DVT ppx: heparin 10. Endo: poorly controlled DM with neuropathy- c/u insulin and ISS, adjust prn 11. Pain: c/u oxycodone Hcl prn and c/u standing tylenol, f/u Flexeril qHS, c/u gabapentin 12. Psych: depression, c/u Paxil 13. : admission UA and UCx positive for SERRATIA MARCESCENS s/p one time dose of Fosfomycin , repeat UA negative monitor PVRs 14. Skin: BID skin checks with BID dressing changes, monitor for infection- ok to use Hangar orthotic at night avoiding daytime use as poorly fitting and possibly causing blister formation on proximal tibia- suspect sulfa/sulfonamide allergy vs bullous pemphigoid reaction to lasix contributing to blisters although not clear, does have chronic eosinophilia and family hx of blistering condition, will refer to outpatient derm 15. Dispo: 07/13/18 to home, ramp to be built over the weekend and home eval DME: Patient will require a wheelchair in order to complete her MRADLs in in a reasonable time frame, and would not be able to complete her MRADLs without one. The use of a wheelchair will increase her functional mobility, her home is accessible, and she is willing to use one. Her is also willing to help her with the use of the wheelchair. Allergies Coded Allergies: TAPE (Verified Allergy, Intermediate, RASH, 05/19/18) citric acid (Verified Allergy, Intermediate, HIVES/ITCHING, 05/19/18) sodium bicarbonate (Verified Allergy, Intermediate, HIVES/ITCHING, 05/19/18) Sulfa (Sulfonamide Antibiotics) (Verified Allergy, Mild, 06/28/18) rash hydrocodone (Verified Allergy, Mild, ITCHES, 05/19/18) Vital Signs Vital Signs Date Time Temp Pulse Resp B/P (MAP) Pulse Ox O2 Delivery O2 Flow Rate FiO2 07/09/18 09:06 68 116/57 07/09/18 06:34 18 07/09/18 06:00 97.5 97 07/07/18 21:00 2.0 Laboratory Data CBC/BMP Laboratory Tests 07/09/18 06:27 Red Blood Count 3.43 L, Mean Corpuscular Volume 98.8 H, Mean Corpuscular Hemoglobin 30.3, Mean Corpuscular Hemoglobin Concent 30.7 L, Red Cell Distribution Width 15.5 H, Neutrophils (%) (Auto) 54.5, Lymphocytes (%) (Auto) 28.9, Monocytes (%) (Auto) 7.5 H, Eosinophils (%) (Auto) 7.5 H, Basophils (%) (Auto) 1.1 H, Neutrophils # (Auto) 3.0, Lymphocytes # (Auto) 1.6, Monocytes # (Auto) 0.4, Eosinophils # (Auto) 0.4, Basophils # (Auto) 0.1, Calcium Level 9.3 Labs 24H Laboratory Tests 2 07/08/18 12:03: Bedside Glucose (Misc Panel) 123H 07/08/18 16:28: Bedside Glucose (Misc Panel) 175H 07/08/18 21:25: Bedside Glucose (Misc Panel) 227H 07/09/18 06:27: Immature Granulocyte % (Auto) 0.5, White Blood Count 5.6, Red Blood Count 3.43L, Hemoglobin 10.4L, Hematocrit 33.9L, Mean Corpuscular Volume 98.8H, Mean Corpuscular Hemoglobin 30.3, Mean Corpuscular Hemoglobin Concent 30.7L, Red Cell Distribution Width 15.5H, Platelet Count , Neutrophils (%) (Auto) 54.5, Lymphocytes (%) (Auto) 28.9, Monocytes (%) (Auto) 7.5H, Eosinophils (%) (Auto) 7.5H, Basophils (%) (Auto) 1.1H, Neutrophils # (Auto) 3.0, Lymphocytes # (Auto) 1.6, Monocytes # (Auto) 0.4, Eosinophils # (Auto) 0.4, Basophils # (Auto) 0.1, Nucleated Red Blood Cells % (auto) 0.0, Anion Gap 8, Glomerular Filtration Rate 24.6L, Blood Urea Nitrogen 54H, Creatinine 2.14H, Sodium Level 139, Potassium Level 4.1, Chloride Level 102, Carbon Dioxide Level 29, Calcium Level 9.3 07/09/18 06:57: Bedside Glucose (Misc Panel) 195H Current Medications Current Medications Current Medications Acetaminophen (Tylenol Tab) 650 mg Q24H PRN PO fever; Start 06/28/18 at 12:45 Acetaminophen (Tylenol Tab) 1,000 mg TID PO Last administered on 07/09/18 09: 07; Start 06/28/18 at 16:00 Al Hydrox/Mg Hydrox/Simethicone (Mylanta) 30 ml Q4HP PRN PO DYSPEPSIA; Start 06/28/18 at 12:45 Amoxicillin/ Clavulanate Potassium (Augmentin) 500 mg BID PO Last administered on 07/08/18 09:25; Start 06/28/18 at 21:00; Stop 07/08/18 at 09:01; Status DC Atorvastatin Calcium (Lipitor) 40 mg QHS PO Last administered on 07/08/18at 22:04; Start 06/28/18 at 21:00 Bisacodyl (Dulcolax Suppository) 10 mg DAILYPRN PRN MI CONSTIPATION; Start 06/28/18 at 12:45 Carvedilol (COReg) 12.5 mg BID PO Last administered on 07/09/18 09:06; Start 06/28/18 at 21:00 Cephalexin Monohydrate (Keflex) 500 mg BID PO Last administered on 07/09/18 09:06; Start 07/08/18 at 21:00; Stop 07/15/18 at 20:59 Cyclobenzaprine HCl (Flexeril) 10 mg QHS PO Last administered on 07/08/18at 22:05; Start 06/28/18 at 21:00 Darbepoetin German (Aranesp) 100 mcg Fr@09 SC Last administered on 07/02/18at 09:38; Start 07/02/18 at 09:00 Dextrose (Dextrose 50%) 25 ml ASDIRECTED PRN IV SEE LABEL COMMENTS; Start 06/28/18 at 12:45 Docusate Sodium (Colace) 100 mg BID PO Last administered on 07/04/18at 08:25; Start 06/28/18 at 21:00 Fentanyl Citrate (Sublimaze) 25 mcg Q5MP PRN IV MODERATE PAIN (PS 4-7); Start 07/06/18 at 13:45; Stop 07/06/18 at 14:45; Status DC Ferrous Gluconate (Fergon) 324 mg BID PO Last administered on 07/09/18at 09:08; Start 06/28/18 at 21:00 Gabapentin (Neurontin) 300 mg BID PO Last administered on 07/07/18at 08:52; Start 07/03/18 at 09:00; Stop 07/07/18 at 09:43; Status DC Gabapentin (Neurontin) 300 mg QAM PO Last administered on 07/01/18at 09:05; Start 06/29/18 at 09:00; Stop 07/01/18 at 10:31; Status DC Gabapentin (Neurontin) 300 mg TID PO Last administered on 07/09/18at 09:11; Sta rt 07/07/18 at 16:00 Gabapentin (Neurontin) 600 mg Q8H PO Last administered on 07/02/18at 05:35; Sta rt 07/01/18 at 14:00; Stop 07/02/18 at 13:27; Status DC Gabapentin (Neurontin) 600 mg QHS PO Last administered on 06/30/18at 20:56; Start 06/28/18 at 21:00; Stop 07/01/18 at 10:31; Status DC Glucagon (Glucagon) 1 mg ASDIRECTED PRN SC SEE LABEL COMMENTS; Start 06/28/18 at 12:45 Glucose (Glucose) 16 GM ASDIRECTED PRN PO SEE LABEL COMMENTS; Start 06/28/18 at 12:45 Heparin Sodium (Heparin (Flush)) 200 units ASDIRECTED PRN IV SEE LABEL COMMENTS Last administered on 06/30/18at 02:45; Start 06/29/18 at 05:45; Stop 07/01/18 at 23:21; Status DC Heparin Sodium (Heparin (Flush)) 200 units PICC IV Last administered on 07/01/18 05:39; Start 06/29/18 at 06:00; Stop 07/01/18 at 23:21; Status DC Heparin Sodium (Porcine) (Heparin) 5,000 units Q8H SC Last administered on 07/09/18 06:02; Start 06/28/18 at 22:00 Hydromorphone HCl (Dilaudid) 1 mg Q4HP PRN PO MODERATE/SEVERE PAIN (PS 5-10); Start 07/05/18 at 15:45; Stop 07/06/18 at 17:34; Status DC Hydromorphone HCl (Dilaudid) 2 mg Q24H PRN PO MODERATE/SEVERE PAIN (PS 5-10) Last administered on 07/05/18 21:25; Start 07/05/18 at 15:45; Stop 07/06/18 at 17:34; Status DC Hydromorphone HCl (Dilaudid) 2 mg Q4HP PRN PO MODERATE/SEVERE PAIN (PS 5-10) Last administered on 07/05/18 06:28; Start 06/28/18 at 12:45; Stop 07/05/18 at 15:41; Status DC Insulin Detemir (Levemir Insulin) 30 units BID SC Last administered on 07/09/18 09:09; Start 06/28/18 at 21:00; Status Future hold Insulin Human Lispro (HumaLOG INSULIN) SEE PROTOCOL TABLE AC SC Last adminis tered on 07/09/18 09:10; Start 06/28/18 at 17:30 Insulin Human Lispro (HumaLOG INSULIN) SEE PROTOCOL TABLE QHS SC Last administered on 07/05/18 21:23; Start 06/28/18 at 21:00 Isosorbide Mononitrate (Imdur) 30 mg QAM PO Last administered on 07/08/18 09:24; Start 06/29/18 at 09:00 Lactobacillus Acidophilus (Bacid) 1 ea TID PO Last administered on 07/09/18 09:07; Start 07/08/18 at 16:00 Lactulose (Cephulac) 15 ml DAILYPRN PRN PO CONSTIPATION Last administered on 5/7/19at 14:05; Start 06/29/18 at 12:15 Magnesium Hydroxide (Milk Of Magnesia) 30 ml DAILYPRN PRN PO CONSTIPATION Last administered on 06/29/18at 21:21; Start 06/28/18 at 12:45; Stop 06/30/18 at 15:54; Status DC Magnesium Oxide (Mag-Ox) 400 mg DAILY PO Last administered on 06/30/18at 09:10; Start 06/29/18 at 09:00; Stop 07/01/18 at 04:16; Status DC Menthol/Methyl Salicylate (Bengay Cream) TID TOP Last administered on 07/09/18at 09:11; Start 06/29/18 at 09:00 Miscellaneous (Unresolved Clarification Entry) SEE LABEL COMMENTS DAILY XX ; Start 07/04/18 at 09:00; Stop 07/05/18 at 08:00; Status DC Miscellaneous (Unresolved Clarification Entry) SEE LABEL COMMENTS DAILY XX ; Start 07/05/18 at 09:00; Stop 07/05/18 at 11:33; Status DC Miscellaneous (Unresolved Clarification Entry) SEE LABEL COMMENTS DAILY XX ; Start 06/29/18 at 09:00; Status Cancel Multivitamins (Theragram-M) 1 tab DAILY PO Last administered on 07/09/18at 09:07; Start 06/28/18 at 09:00 Nystatin (Mycostatin Powder, Nystop) groin and abdominal folds BID TOP Last a dministered on 07/09/18at 09:07; Start 06/28/18 at 21:00 Nystatin (Mycostatin) 5 ml QID PO Last administered on 07/09/18at 09:06; Start 06/28/18 at 17:00 Oxycodone HCl (Roxicodone, Oxyir) 5 mg Q4HP PRN PO PAIN Last administered on 07/09/18at 06:04; Start 07/06/18 at 17:45 Oxycodone/ Acetaminophen (Percocet 5mg/ 325mg Tablet) 1 tab ASDIRECTED PRN PO MILD/MODERATE PAIN (PS 1-7) Last administered on 07/06/18at 14:10; Start 07/06/18 at 14:30; Stop 07/06/18 at 15:30; Status DC Pantoprazole Sodium (Protonix) 40 mg DAILY PO Last administered on 07/09/18 09:08; Start 06/29/18 at 09:00 Paroxetine HCl (PAXil) 40 mg DAILY PO Last administered on 07/09/18 09:07; Start 06/29/18 at 09:00 Senna (Senokot) 1 tab QHS PO Last administered on 07/03/18at 20:49; Start 06/28/18 at 21:00 Sodium Chloride (Saline Lock Flush) 10 ml ASDIRECTED PRN IV SEE LABEL COMMENTS Last administered on 06/30/18 02:46; Start 06/29/18 at 05:45; Stop 07/01/18 at 23:21; Status DC Sodium Chloride (Saline Lock Flush) 10 ml PICC IV Last administered on 07/01/18 05:39; Start 06/29/18 at 06:00; Stop 07/01/18 at 23:21; Status DC Torsemide (Demadex) 20 mg BID@,17 PO Last administered on 06/30/18at 09:09; Start 06/28/18 at 17:00; Stop 06/30/18 at 10:29; Status DC Torsemide (Demadex) 30 mg BID@,17 PO Last administered on 07/09/18at 09:08; Start 06/30/18 at 17:00 A-FIB/CHADSVASC A-FIB History Current/History of A-Fib/PAF?: No MAN RESTREPO MD July 09, 2018 10:15
[2018-07-09] MEDS: DARBEPOETIN 100 MCG/0.5 ML *NON-DIALYSIS* SYRINGE (J0881) SC SCH (10:37)
[2018-07-09 14:00] VITALS: BP 136/62
--- NOTE | 2018-07-09 14:37 | IPNPDOC ---
Date Seen The patient was seen on 07/09/18. Progress Note Vascular Surgery Dr Matthews HPI: 67-year-old F with a past medical history of diabetes, on insulin, hypertension, stage IV chronic kidney disease, follows with Dr. Dong, diabetic neuropathy, hyperlipidemia, who was admitted 06/16/18 with left lateral foot wound and calcaneal fracture. Patient had been seen by podiatry and was sent to the emergency room for further evaluation and treatment related to worsening of her foot wound. Vascular Surgery was consulted to assist with LLE foot wound. Patient is status post left BKA 06/22/[address] Matthews. Transferred to the care of ADAMA Ash, 06/28/18. Pt is OOB to chair. Denies any fevers, chills, weakness, fatigue, Headache, Chest Pain, Shortness of breath, cough, palpitations, abdominal pain, N/V/D or changes in bowel or bladder habits. PAST MEDICAL HISTORY: As mentioned above PAST SURGICAL HISTORY: She has had right 2nd, 4th and 5th toe amputations, left 3rd, 4th, 5th toe amputations plus left ankle sx, a hysterectomy, cholecystectomy, partial appendectomy. PE: GEN: 67yoF, appears stated age. Alert and oriented x 3. HEENT: Normocephalic, atraumatic. Moist mucous membranes. CHEST: Regular rate and rhythm, +S1, +S2 LUNGS: Clear to auscultation bilaterally. No wheezes, rales, or rhonchi. ABD: Round, soft, non-tender, non-distended. +Bowel sounds throughout. No rebound or guarding. EXT: Status post left BKA, bandage is intact. S/P LUE AVF, palpable thrill is noted however does not seem as prominent as it has been previously. Dry Dressing intact. SKIN: [place], dry, warm. NEURO: Alert and oriented x 3. No focal deficits appreciated. Left foot MRI 1. Lateral soft tissue edema. There is adjacent edema within the bone marrow of the base of the fifth metatarsal on T2 fat-suppressed and T1-weighted images consistent with acute osteomyelitis. A smaller focus of edema is present within the distal and lateral cuboid also suspicious for acute osteomyelitis. 2. There is a transverse fracture across the calcaneus. Electronically signed by: Prem Valverde On 06/16/2018 21:26:12 PM A&P: 67-year-old lady with a past medical history of diabetes, on insulin, hypertension, stage IV chronic kidney disease, follows with Dr. Dong, diabetic neuropathy, hyperlipidemia, who was admitted 06/16/18 with left lateral foot wound and calcaneal fracture. Patient had been seen by podiatry and was sent to the emergency room for further evaluation and treatment related to worsening of her foot wound. Vascular Surgery is consulted to assist with LLE foot wound. Chronic Left foot wound /Osteomyelitis of L foot, growing MSSA from wound site. Status post left BKA as per Dr. Matthews 06/22/18. Patient is afebrile. WBC 5.6. CRP 1.49. Cephazolin 1 gm IV q12h d/cd 06/27/18. Augmentin x 10 D completed 07/08/18. Appreciate ID assistance. Dr Rodríguez examined stump 07/08/18. Pt placed on Keflex BID as per Dr Ramirez for persistent skin irritation. Pain control with Dilaudid to 2 mg Q4 hr prn. Patient remains on gabapentin 300mg AM/ 600 mg at bedtime. Angiogram completed last admission. No intervention required. Acute renal failure superimposed on CKD Stage IV Demadex 30 mg BID Nephrology managing. HD access Dr. Yanez has requested vascular surgery to evaluate for AV fistula. Vein mapping completed 05/24/18. S/P AVF creation 07/06/[address] Matthews. Palpable thrill is noted on exam today, did not seem as prominent as it has previously, relayed to Dr Matthews. Anemia in CKD 1 u PRBC 06/24/18. 2 u PRBC 06/29/18 Aranesp/ferrous sulfate as per Nephrology DVT prophylaxis. Subcutaneous heparin. A-FIB/CHADSVASC A-FIB History Current/History of A-Fib/PAF?: No VS, I&O, 24H, Fishbone Vital Signs/I&O Vital Signs Date Time Temp Pulse Resp B/P (MAP) Pulse Ox O2 Delivery O2 Flow Rate FiO2 07/09/18 14:00 97.4 79 18 136/62 (86) 96 07/07/18 21:00 2.0 l I&O- Last 24 Hours up to 6 AM 07/09/18 06:00 Intake Total 1360 ml Output Total 1700 ml Balance -340 ml Laboratory Data 24H LABS Laboratory Tests 2 07/08/18 16:28: Bedside Glucose (Misc Panel) 175H 07/08/18 21:25: Bedside Glucose (Misc Panel) 227H 07/09/18 06:27: Immature Granulocyte % (Auto) 0.5, White Blood Count 5.6, Red Blood Count 3.43L, Hemoglobin 10.4L, Hematocrit 33.9L, Mean Corpuscular Volume 98.8H, Mean Corpuscular Hemoglobin 30.3, Mean Corpuscular Hemoglobin Concent 30.7L, Red Cell Distribution Width 15.5H, Platelet Count , Neutrophils (%) (Auto) 54.5, Lymphocytes (%) (Auto) 28.9, Monocytes (%) (Auto) 7.5H, Eosinophils (%) (Auto) 7.5H, Basophils (%) (Auto) 1.1H, Neutrophils # (Auto) 3.0, Lymphocytes # (Auto) 1.6, Monocytes # (Auto) 0.4, Eosinophils # (Auto) 0.4, Basophils # (Auto) 0.1, Nucleated Red Blood Cells % (auto) 0.0, Anion Gap 8, Glomerular Filtration Rate 24.6L, Blood Urea Nitrogen 54H, Creatinine 2.14H, Sodium Level 139, Potassium Level 4.1, Chloride Level 102, Carbon Dioxide Level 29, Calcium Level 9.3 07/09/18 06:57: Bedside Glucose (Misc Panel) 195H 07/09/18 11:33: Bedside Glucose (Misc Panel) 241H CBC/BMP Laboratory Tests 07/09/18 06:27 Red Blood Count 3.43 L, Mean Corpuscular Volume 98.8 H, Mean Corpuscular Hemoglobin 30.3, Mean Corpuscular Hemoglobin Concent 30.7 L, Red Cell Distribution Width 15.5 H, Neutrophils (%) (Auto) 54.5, Lymphocytes (%) (Auto) 28.9, Monocytes (%) (Auto) 7.5 H, Eosinophils (%) (Auto) 7.5 H, Basophils (%) (Auto) 1.1 H, Neutrophils # (Auto) 3.0, Lymphocytes # (Auto) 1.6, Monocytes # (Auto) 0.4, Eosinophils # (Auto) 0.4, Basophils # (Auto) 0.1, Calcium Level 9.3 Clari Mike July 09, 2018 14:37
[2018-07-09] MEDS ORDERED: LACTOBACILLUS ACIDOPHILUS CAP (BACID) PO SCH (16:00)
--- NOTE | 2018-07-09 17:33 | IPNPDOC ---
Text Note Date of Service The patient was seen on 07/08/18. NOTE Nephrology Service: Subjective: Patient seen and examined at bedside. Is status post L BKA. Is also AVF creation of LUE on 07/[address] Matthews. Doing well with PT. Hemodynamically stable. Urine output decent at 2150 mL. Creatinine is stable at 2.15 today. Reports her pain is controlled today. Admits to blisters and discomfort with L BKA stump site. Augmentin does not seem to be helping as per patient. Otherwise, patient has no acute complaints. Patient denies chest pain, SOB, headache, fevers, chills, nausea, vomiting, abdominal pain, diarrhea, constipation. Objective: Vitals: T: 98.2 BP: 126/61 RR: 17 P: 72 O2 Saturation: 97% on room air Weight: 122.1 kg today Intake: 1260 ml Output: 2150 ml Balance: (-) 890 ml Urine output: 0.73 ml/kg/hr General: AAO x 3. Morbidly obese adult female seen sitting in wheelchair. Cooperative and pleasant. Psychiatric: Euthymic mood and normal affect. HEENT: Head: normocephalic, atraumatic. Neck: Supple. Respiratory: Clear to auscultation bilaterally with no wheezes, rales, or rhonchi. Cardiovascular: Normal S1S2, regular rate and rhythm, with no murmurs, rubs or gallops. Abdomen: Soft, obese, nontender, nondistended, no hepatosplenomegaly appreciated. Extremities: LLE BKA stump site wrapped with gauze dressing. 1 (+) pitting edema noted of LLE and trace pitting edema of RLE. (+)LUE AV fistula site covered with dressing and bruit auscultated, thrill palpated. Musculoskeletal: (+)L below the knee amputation. Neurological: No focal neurologic deficits appreciated bilaterally. Laboratory data: CBC: WBC 4.8, Hgb 10, platelets 183. BMP: Na 138, K 4.5, BUN 57, Cr 2.15, Glucose: 288 Imaging: No new imaging today. Current Inpatient Medications: Aranesp (Darbepoetin German) 100 mcg Fr@09 SC scheduled for Fridays Ferrous Gluconate 324 mg PO BID Carvedilol 12.5 mg PO BID Isosorbide Mononitrate (Imdur) 30 MG PO QAM Dilaudid 2 mg q4h PRN PO Moderate/Severe Pain PS 5-10 Venofer (Iron Sucrose) 200 mg/Sodium Chloride 110 mL @ 110 mLs/hr q48h IV Lactulose 15 mL daily PO PRN constipation Senna 1 tab PO QHS Augmentin 500 mg PO BID Tylenol 650 mg PO q4h PRN pain or fever Torsemide 30 mg PO BID Dilaudid 2 mg q24h PRN PO moderate/severe pain Dilaudid 1 mg q4h PRN PO moderate/severe pain Assessment/Plan: PROBLEMS: 1. Chronic kidney disease (CKD) stage IV: Renal function is stable and at [facility]. Electrolytes stable. Creatinine stable and 2.15 today. Is status-post AV Fistula creation on L arm with Dr. Matthews on 07/06/18. Postprocedurally, is doing well, and denies any pain at site. Will continue to monitor renal function. No urgent indication for hemodialysis today. Monitor volume status and adjust diuretics as necessary. Anticipate dialysis needs in future. Recommend dosing medications for GFR and avoidance of nephrotoxic medications. 2. Diastolic congestive heart failure: No clinical signs of decompensated HF at this point. Volume status acceptable. Edema a bit improved. Continue with torsemide to 30 mg BID. Adjust diuretic therapy as necessary. Will continue to monitor electrolytes, daily weights, and urine output. Urine output is acceptable. No need for HD at this time from fluid volume status as of yet. 3. Anemia related to iron deficiency, chronic renal failure, inflammation from L BKA stump site: For iron deficiency, continue venofer and ferrous sulfate 325 mg PO BID. For anemia secondary to CKD, continue Aranesp 100 mcg qFridays. For inflammation, treat underlying cause. No transfusion needs as of yet. Hgb acceptable at 10. 4. Osteomyelitis of LLE and L Calcaneal Fracture status-post Below the Knee Amputation of LLE: Pain controlled at this time. Continue dilaudid. Continue current pain regimen as per primary team. Continue with PT and rehab, which patient states is going well. She does have L BKA stump site that is covered with dressing with hx of recent blister formation and drainage. Is on augmentin for this, however, does not seem to be helping as per patient. Primary team to reconsider alternative antibiotic regimen. She is also followed by Infectious Disease. Will defer management and the need for antibiotic therapy to primary team and Infectious Disease. 5. Hypertension: Blood pressure acceptable at 126/61 today. Continue carvedilol 12.5 mg BID, Imdur 30 mg daily, and torsemide 30 mg BID. No changes made today in antihypertensive regimen. My preceptor for this patient encounter was Dr. Daniella Dong, and was physically present in the building during the encounter and was fully available. As needed, all aspects of the patient interview, examination, medical decision making process, and medical care plan development were reviewed and approved by the preceptor. Preceptor is aware and concurs with the plan as stated in the body of this note and will attest to such by his/her cosignature. A-FIB/CHADSVASC A-FIB History Current/History of A-Fib/PAF?: No Current Oral Anticoagulant The: No VS,Fishbone, I+O VS, Fishbone, I+O Laboratory Tests 07/08/18 08:48 Red Blood Count 3.34 L, Mean Corpuscular Volume 97.3 H, Mean Corpuscular Hemoglobin 29.9, Mean Corpuscular Hemoglobin Concent 30.8 L, Red Cell Distribution Width 15.3 H, Neutrophils (%) (Auto) 57.8, Lymphocytes (%) (Auto) 25.3, Monocytes (%) (Auto) 6.9 H, Eosinophils (%) (Auto) 7.9 H, Basophils (%) (Auto) 1.3 H, Neutrophils # (Auto) 2.8, Lymphocytes # (Auto) 1.2 L, Monocytes # (Auto) 0.3, Eosinophils # (Auto) 0.4, Basophils # (Auto) 0.1, Calcium Level 9.2 Vital Signs Date Time Temp Pulse Resp B/P (MAP) Pulse Ox O2 Delivery O2 Flow Rate FiO2 07/08/18 22:05 18 07/08/18 22:05 81 145/67 07/08/18 14:00 97.8 94 07/07/18 21:00 2.0 I&O- Last 24 Hours up to 6 AM 07/08/18 06:00 Intake Total 1140 ml Output Total 2300 ml Balance -1160 ml ANDREW LANGE DO July 08, 2018 23:19
[2018-07-09 20:00] VITALS: BP 145/67
[2018-07-09] MEDS: SENNA 8.6 MG TAB (SENOKOT) PO SCH (21:00)
[2018-07-09] MEDS: ATORVASTATIN 20 MG TAB PO SCH (21:45)
[2018-07-09] MEDS: CYCLOBENZAPRINE 10 MG TAB PO SCH (21:46)
--- NOTE | 2018-07-09 21:49 | IPN ---
DATE: 07/09/2018 Ms. Narayan is seen this morning on her bedside. She is sitting in the chair with her left leg stump elevated. She is currently undergoing acute rehabilitation following her left ahent-qwo-oord amputation. She denies any nausea, vomiting, dyspnea or chest pain. She reports that she has been now put on Keflex because of erythema on her leg stump. She was seen by Dr. Rodríguez yesterday. PHYSICAL EXAMINATION: Temperature 97.4 degrees Fahrenheit, heart rate 68 per minute and respiratory rate 18 per minute. Blood pressure 116/57 mmHg and oxygen saturation 96% on room air. Intake and output records from yesterday show a total intake 1300 and output 2100. Her weight is reported at 119.9 kg today. Head is atraumatic. Neck is supple and without jugular venous distention (JVD) sitting upright. Lungs sound clear to auscultation. Heart sounds are regular and without a pericardial friction rub. Abdomen is soft and nontender. Bowel sounds are normal. Extremities have no cyanosis or clubbing. She has a jddhl-ctd-[id number] amputation on the left side. She has a left arm arteriovenous (AV) fistula with faint bruit and thrill. On the right leg, she has at least 1+ edema. Neurologically, she is awake, alert and oriented times three. LABORATORY DATA: Today's laboratories show WBC count 5.6, hemoglobin 10.4 and hematocrit 33.9. Sodium is 139, potassium 4.1, CO2 29, BUN 54 and creatinine 2.14. PROBLEMS: 1. Hypervolemia and peripheral edema. Her volume status has improved significantly over the last couple of weeks and continues to improve slowly now. I would suggest to continue with current diuretic and she should also follow a fluid restriction of 1500 mL per day. She still has edema on her right leg and is likely to lose further weight if she gets rid of all her extra fluid. 2. Anemia. Her anemia is stable at present and will need continued monitoring as she has ongoing infections in the setting of advanced chronic kidney disease. 3. Stage IV of chronic kidney disease. She has been stable as far as her renal function goes and at this point, there is no emergent need for dialysis. She already had a left arm arteriovenous (AV) fistula created for future use. Her electrolytes are all within normal range. 4. Left leg stump infection. The patient is now on Keflex which is appropriate from a renal standpoint. MTDD
[2018-07-10 06:00] VITALS: BP 160/74
[2018-07-10] MEDS: HEPARIN SOD (PORCINE) 5000 UNITS/ML VIAL SC SCH ×3 (06:08→20:55)
[2018-07-10 07:13] LABS: BASO # 0.1 10^3/uL (0.0-0.2); BASO % 1.1 % (0.0-1.0); EOS # 0.4 10^3/uL (0.0-0.50); EOS % 8.7 % (0.0-3.0); HEMATOCRIT 32.5 % (36.0-47.0); LYMPH # 1.3 10^3/uL (1.5-4.5); LYMPH % 27.8 % (24.0-44.0); MEAN CORPUSCULAR HEMOGLOBIN 30.2 pg (27.0-33.0); MEAN CORPUSCULAR HGB CONC 30.8 g/dl (32.0-36.5); MEAN CORPUSCULAR VOLUME 98.2 fl (80.0-96.0); MONO # 0.4 10^3/uL (0.0-0.8); NEUTROPHILS # 2.5 10^3/uL (1.8-7.7); NEUTROPHILS % 53.7 % (36.0-66.0); PLATELET COUNT, AUTOMATED 172 10^3/uL (150-450); RED BLOOD COUNT 3.31 10^6/uL (4.00-5.40); WHITE BLOOD COUNT 4.6 10^3/uL (4.0-10.0)
[2018-07-10 07:34] LABS: CREATININE FOR GFR 2.03 MG/DL (0.55-1.30); GLOMERULAR FILTRATION RATE 26.2 (>45); POTASSIUM SERUM 3.7 MEQ/L (3.5-5.1)
[2018-07-10] MEDS: MULTIVITAMINS/MINERALS THERAP 1 TAB PO SCH (08:14)
[2018-07-10] MEDS: HumaLOG INSULIN (NovoLOG) PER UNIT SC SCH ×4 (08:14→21:18)
[2018-07-10] MEDS: TORSEMIDE 10 MG TABLET PO SCH ×2 (08:14→16:51)
[2018-07-10] MEDS: LEVEMIR (INSULIN DETEMIR) 1 UNITS/0.01ML SC SCH ×2 (08:14→20:56)
[2018-07-10] MEDS: PANTOPRAZOLE 40MG TAB (PROTONIX) PO SCH (08:15)
[2018-07-10] MEDS: FERROUS GLUCONATE 324 MG TAB PO SCH ×2 (08:15→20:54)
[2018-07-10] MEDS: CARVedilol 12.5 MG TAB PO SCH ×2 (08:15→20:54)
[2018-07-10] MEDS: GABAPENTIN 300 MG CAP PO SCH ×3 (08:15→20:53)
[2018-07-10] MEDS: PARoxetine 20 MG TAB PO SCH (08:15)
[2018-07-10] MEDS: ISOSORBIDE MON. (IMDUR) 30 MG XR TAB PO SCH (08:15)
[2018-07-10] MEDS: ACETAMINOPHEN 500 MG TAB PO SCH ×3 (08:15→20:53)
[2018-07-10] MEDS: CEPHALEXIN 500 MG CAP PO SCH ×2 (08:15→20:54)
[2018-07-10] MEDS: ANALGESIC BALM CRM 120 GM TOP SCH ×3 (08:16→20:56)
[2018-07-10] MEDS: LACTOBACILLUS ACIDOPHILUS CAP (BACID) PO SCH ×3 (08:16→20:53)
[2018-07-10] MEDS: NYSTATIN 500,000 U/5 ML SUSP UDC PO SCH ×5 (08:16→21:00)
[2018-07-10] MEDS: DOCUSATE SODIUM 100 MG CAP PO SCH ×2 (08:16→21:00)
[2018-07-10] MEDS: NYSTATIN 100,000 UNITS/GM TOPICAL PWD 15 GM TOP SCH ×2 (08:16→20:57)
[2018-07-10 14:00] VITALS: BP 130/59
[2018-07-10] MEDS: oxyCODONE 5MG TAB PO PRN (16:50)
[2018-07-10 20:00] VITALS: BP 138/64
[2018-07-10] MEDS: CYCLOBENZAPRINE 10 MG TAB PO SCH (20:53)
[2018-07-10] MEDS: ATORVASTATIN 20 MG TAB PO SCH (20:54)
[2018-07-10] MEDS: SENNA 8.6 MG TAB (SENOKOT) PO SCH (20:55)
[2018-07-11] MEDS: oxyCODONE 5MG TAB PO PRN ×2 (04:25→13:23)
[2018-07-11 06:00] VITALS: BP 142/65
[2018-07-11] MEDS: HEPARIN SOD (PORCINE) 5000 UNITS/ML VIAL SC SCH ×3 (06:21→21:37)
[2018-07-11 06:41] LABS: BASO % 0.8 % (0.0-1.0); EOS # 0.4 10^3/uL (0.0-0.50); EOS % 8.7 % (0.0-3.0); HEMATOCRIT 34.4 % (36.0-47.0); HEMOGLOBIN 10.7 g/dl (12.0-15.5); LYMPH # 1.6 10^3/uL (1.5-4.5); MEAN CORPUSCULAR HEMOGLOBIN 29.4 pg (27.0-33.0); MEAN CORPUSCULAR HGB CONC 31.1 g/dl (32.0-36.5); MEAN CORPUSCULAR VOLUME 94.5 fl (80.0-96.0); MONO # 0.4 10^3/uL (0.0-0.8); MONO % 7.8 % (0.0-5.0); NEUTROPHILS # 2.5 10^3/uL (1.8-7.7); NEUTROPHILS % 50.1 % (36.0-66.0); PLATELET COUNT, AUTOMATED 179 10^3/uL (150-450); RED BLOOD COUNT 3.64 10^6/uL (4.00-5.40)
[2018-07-11 07:07] LABS: CALCIUM LEVEL 8.9 MG/DL (8.8-10.2); CREATININE FOR GFR 1.92 MG/DL (0.55-1.30); GLOMERULAR FILTRATION RATE 27.9 (>45); POTASSIUM SERUM 3.7 MEQ/L (3.5-5.1)
[2018-07-11] MEDS: LACTOBACILLUS ACIDOPHILUS CAP (BACID) PO SCH ×3 (08:47→21:36)
[2018-07-11] MEDS: MULTIVITAMINS/MINERALS THERAP 1 TAB PO SCH (08:47)
[2018-07-11] MEDS: PANTOPRAZOLE 40MG TAB (PROTONIX) PO SCH (08:47)
[2018-07-11] MEDS: HumaLOG INSULIN (NovoLOG) PER UNIT SC SCH ×4 (08:47→21:00)
[2018-07-11] MEDS: FERROUS GLUCONATE 324 MG TAB PO SCH ×2 (08:47→21:36)
[2018-07-11] MEDS: ACETAMINOPHEN 500 MG TAB PO SCH ×3 (08:48→21:38)
[2018-07-11] MEDS: GABAPENTIN 300 MG CAP PO SCH ×3 (08:48→21:36)
[2018-07-11] MEDS: TORSEMIDE 10 MG TABLET PO SCH ×2 (08:48→17:37)
[2018-07-11] MEDS: PARoxetine 20 MG TAB PO SCH (08:48)
[2018-07-11] MEDS: CEPHALEXIN 500 MG CAP PO SCH ×2 (08:48→21:36)
[2018-07-11] MEDS: NYSTATIN 100,000 UNITS/GM TOPICAL PWD 15 GM TOP SCH ×2 (08:49→21:41)
[2018-07-11] MEDS: ISOSORBIDE MON. (IMDUR) 30 MG XR TAB PO SCH (08:49)
[2018-07-11] MEDS: LEVEMIR (INSULIN DETEMIR) 1 UNITS/0.01ML SC SCH ×2 (08:49→21:37)
[2018-07-11] MEDS: NYSTATIN 500,000 U/5 ML SUSP UDC PO SCH ×4 (08:50→21:00)
[2018-07-11] MEDS: ANALGESIC BALM CRM 120 GM TOP SCH ×3 (08:50→21:00)
[2018-07-11] MEDS: DOCUSATE SODIUM 100 MG CAP PO SCH ×2 (08:50→21:00)
[2018-07-11] MEDS: CARVedilol 12.5 MG TAB PO SCH ×2 (08:50→21:39)
--- NOTE | 2018-07-11 12:03 | IPNPDOC ---
Subjective Date Seen The patient was seen on 07/11/18. Subjective Chief Complaint/HPI Patient is a 67-year-old female, past medical history significant for diabetes mellitus, chronic kidney disease stage IV, hypertension, hyperlipidemia, admitted for non-healing left lower extremity ulcer and found to have osteomyelitis requiring below the knee amputation. After surgery, patient was stabilized medically and discharged to inpatient rehabilitation unit for immobilization and strengthening prior to discharge home. Events since last encounter Patient reports she is doing very well, stood up for the first time today. Has been tolerating therapy without issues, had first shower today, denies chills, fever, chest pain, shortness of breath. Objective Physical Examination General Exam: Positive: Alert, Cooperative, No Acute Distress ENT Exam: Positive: Atraumatic, Mucous membr. moist/pink Neck Exam: Positive: Supple; Negative: JVD, thyromegaly, Lymphadenopathy Chest Exam: Positive: Clear to auscultation, Normal air movement; Negative: Rales, Rhonchi, Wheezing Heart Exam: Positive: Rate Normal, Regular Rhythm, Normal S1, Normal S2; Negative: Gallops, Murmurs Abdomen Exam: Positive: Normal bowel sounds, Soft; Negative: Tenderness Extremity Exam: Positive: Other (left BKA); Negative: Edema Skin Exam: Positive: Nl turgor and temperature; Negative: Rash, Breakdown Neuro Exam: Positive: Normal Speech, Cranial Nerves 3-12 NL Psych Exam: Positive: Mental status NL, Oriented x 3; Negative: Anxiety A-FIB/CHADSVASC A-FIB History Current/History of A-Fib/PAF?: No Current Oral Anticoagulant The: No Assessment /Plan Problems (1) S/P BKA (below knee amputation) unilateral Status: Acute Response to Treatment: Stable Discussed With: Nurse, Patient Problem Specific Plan: Monitor Clinically, Repeat Labs Problem Text: -S/P left BKA -Wound is healing well per patient -Dressing is dry and intact -continued in therapy for stabilization (2) Peripheral vascular disease of extremity Status: Chronic Response to Treatment: Stable Problem Specific Plan: Monitor Clinically Problem Text: -presenting osteomyelitis and non healing ulcers. - S/P Left BKA (3) Osteomyelitis of foot, acute Status: Resolved Response to Treatment: Stable Problem Text: -s/p BKA (4) DM2 (diabetes mellitus, type 2) Status: Chronic Problem Specific Plan: Monitor Clinically Problem Text: -continue finger stick checks ACHS Coverage with insulin basal and short acting with meals -diabetic diet (5) Diastolic CHF Status: Chronic Response to Treatment: Stable Problem Specific Plan: Monitor Clinically Problem Text: -well compensated at this time -continue fluid restriction and monitoring (6) DVT prophylaxis Problem Text: -Heparin SQ q8 (7) Advance care planning Problem Text: -CODE STATUS is full code -Disposition is home when rehabilitated- Plan/VTE VTE Prophylaxis Ordered?: Yes VS, I&O, 24H, Fishbone Vital Signs/I&O Vital Signs Date Time Temp Pulse Resp B/P (MAP) Pulse Ox O2 Delivery O2 Flow Rate FiO2 07/11/18 08:49 142/65 07/11/18 06:00 97.0 66 18 95 07/10/18 21:00 2.0 I&O- Last 24 Hours up to 6 AM 07/11/18 06:00 Intake Total 1440 ml Output Total 1375 ml Balance 65 ml Laboratory Data 24H LABS Laboratory Tests 2 07/10/18 16:42: Bedside Glucose (Misc Panel) 357H 07/10/18 20:47: Bedside Glucose (Misc Panel) 352H 07/11/18 06:07: Immature Granulocyte % (Auto) 0.6, White Blood Count 5.0, Red Blood Count 3.64L, Hemoglobin 10.7L, Hematocrit 34.4L, Mean Corpuscular Volume 94.5, Mean Corpuscul ar Hemoglobin 29.4, Mean Corpuscular Hemoglobin Concent 31.1L, Red Cell Distribution Width 15.7H, Platelet Count 179, Neutrophils (%) (Auto) 50.1, Lymphocytes (%) (Auto) 32.0, Monocytes (%) (Auto) 7.8H, Eosinophils (%) (Auto) 8.7H, Basophils (%) (Auto) 0.8, Neutrophils # (Auto) 2.5, Lymphocytes # (Auto) 1.6, Monocytes # (Auto) 0.4, Eosinophils # (Auto) 0.4, Basophils # (Auto) 0.0, Nucleated Red Blood Cells % (auto) 0.0, Anion Gap 5L, Glomerular Filtration Rate 27.9L, Blood Urea Nitrogen 51H, Creatinine 1.92H, Sodium Level 141, Potassium Level 3.7, Chloride Level 101, Carbon Dioxide Level 35H, Calcium Level 8.9 CBC/BMP Laboratory Tests 5/19/19 06:07 Red Blood Count 3.64 L, Mean Corpuscular Volume 94.5, Mean Corpuscular Hemoglobin 29.4, Mean Corpuscular Hemoglobin Concent 31.1 L, Red Cell Distribution Width 15.7 H, Neutrophils (%) (Auto) 50.1, Lymphocytes (%) (Auto) 32.0, Monocytes (%) (Auto) 7.8 H, Eosinophils (%) (Auto) 8.7 H, Basophils (%) (Auto) 0.8, Neutrophils # (Auto) 2.5, Lymphocytes # (Auto) 1.6, Monocytes # (Auto) 0.4, Eosinophils # (Auto) 0.4, Basophils # (Auto) 0.0, Calcium Level 8.9 BROOKE LYLES [facility] July 11, 2018 12:03
--- NOTE | 2018-07-11 15:30 | IPN ---
DATE: 07/11/2018 SUBJECTIVE: Patient seen and examined this morning sitting in the wheelchair, getting ready to visit her mother in the [facility]. She denies any overnight events or complaints. Has been doing well with physical therapy and rehabilitation. She reports her leg edema has improved nicely. She denies any shortness of breath or dyspnea on exertion. Her renal function remains stable. VITAL SIGNS: Temperature 97.0, pulse 66, respiratory rate 18, blood pressure 142/65, saturating 95% on room air. INTAKE AND OUTPUT: Intake yesterday was 1620. Urine output yesterday was 1275. Net positive 245. Weight in the bed scale today is 120.3 kg. GENERAL: Patient is seen sitting in the wheelchair, awake, alert and oriented, interactive. Extraocular muscles are intact. Tongue is moist. NECK: Supple. Jugular veins are not elevated while she is sitting upright. LUNGS: Clear to auscultation bilaterally. No crackles, rales or wheeze. HEART: Sounds are regular. There is no pericardial friction rub. ABDOMEN: Soft and nontender. There are bowel sounds. EXTREMITIES: The lower extremities show only trace edema on the right lower extremity now and the left vvrpv-oqo-hefk amputation has dressings. There is a left arm brachiocephalic fistula with a weak thrill. NEUROLOGIC: She is oriented, interactive and appropriate. LABORATORIES: White count 5.7, hemoglobin 10.7. Sodium 141, potassium 3.7, bicarbonate net 35, BUN 51, creatinine 1.9. INPATIENT MEDICATIONS: Reviewed by myself and no changes from prior. PROBLEMS: 1. Stage IV chronic kidney disease. Renal function has been stable at baseline. Her electrolytes are acceptable. Her volume status improving. She continues on oral fluid restriction and maintenance diuretics. She had a fistula created recently for anticipated dialysis needs in the future. 2. Diastolic congestive heart failure. Volume status is acceptable. There is mild hypervolemia. Continue current dose of torsemide. Continue oral fluid restriction of 1.5 liters daily. We will adjust diuretics as needed. Her potassium is acceptable and I am adding a magnesium level for the morning. 3. Anemia. Related to iron deficiency, inflammation and chronic kidney disease. She received Venofer infusions during this admission. She also received 2 units packed red blood cells and she is now receiving once weekly Aranesp and her hemoglobin is presently 10.7, which is at goal. Continue with Aranesp. 4. Status post left fkmxs-jkd-ndqz amputation. Continue with rehabilitation as per the primary team and local wound care. Patient has a target discharge date of 07/13/2018.
[2018-07-11 16:00] VITALS: BP 123/59
[2018-07-11 20:00] VITALS: BP 140/80
[2018-07-11] MEDS: SENNA 8.6 MG TAB (SENOKOT) PO SCH (21:00)
[2018-07-11] MEDS: ATORVASTATIN 20 MG TAB PO SCH (21:36)
[2018-07-11] MEDS: CYCLOBENZAPRINE 10 MG TAB PO SCH (21:36)
[2018-07-12] MEDS: oxyCODONE 5MG TAB PO PRN ×3 (03:09→19:44)
[2018-07-12 06:00] VITALS: BP 140/80
[2018-07-12] MEDS: HEPARIN SOD (PORCINE) 5000 UNITS/ML VIAL SC SCH ×3 (06:10→21:26)
[2018-07-12 06:22] LABS: BASO # 0.1 10^3/uL (0.0-0.2); BASO % 0.9 % (0.0-1.0); EOS # 0.5 10^3/uL (0.0-0.50); HEMATOCRIT 35.6 % (36.0-47.0); HEMOGLOBIN 11.3 g/dl (12.0-15.5); LYMPH # 2.1 10^3/uL (1.5-4.5); LYMPH % 31.1 % (24.0-44.0); MEAN CORPUSCULAR HEMOGLOBIN 30.7 pg (27.0-33.0); MEAN CORPUSCULAR HGB CONC 31.7 g/dl (32.0-36.5); MEAN CORPUSCULAR VOLUME 96.7 fl (80.0-96.0); MONO # 0.6 10^3/uL (0.0-0.8); MONO % 8.3 % (0.0-5.0); NEUTROPHILS # 3.4 10^3/uL (1.8-7.7); NEUTROPHILS % 50.8 % (36.0-66.0); PLATELET COUNT, AUTOMATED 221 10^3/uL (150-450); RED BLOOD COUNT 3.68 10^6/uL (4.00-5.40); WHITE BLOOD COUNT 6.7 10^3/uL (4.0-10.0)
[2018-07-12 06:47] LABS: CALCIUM LEVEL 9.1 MG/DL (8.8-10.2); CREATININE FOR GFR 2.41 MG/DL (0.55-1.30); GLOMERULAR FILTRATION RATE 21.5 (>45); MAGNESIUM LEVEL 1.5 MG/DL (1.8-2.4); POTASSIUM SERUM 3.9 MEQ/L (3.5-5.1)
[2018-07-12] MEDS: ACETAMINOPHEN 500 MG TAB PO SCH ×3 (08:44→21:00)
[2018-07-12] MEDS: MULTIVITAMINS/MINERALS THERAP 1 TAB PO SCH (08:44)
[2018-07-12] MEDS: LACTOBACILLUS ACIDOPHILUS CAP (BACID) PO SCH ×3 (08:44→21:24)
[2018-07-12] MEDS: PARoxetine 20 MG TAB PO SCH (08:45)
[2018-07-12] MEDS: PANTOPRAZOLE 40MG TAB (PROTONIX) PO SCH (08:45)
[2018-07-12] MEDS: FERROUS GLUCONATE 324 MG TAB PO SCH ×2 (08:45→21:24)
[2018-07-12] MEDS: TORSEMIDE 10 MG TABLET PO SCH ×2 (08:45→17:46)
[2018-07-12] MEDS: GABAPENTIN 300 MG CAP PO SCH ×3 (08:45→21:24)
[2018-07-12] MEDS: ISOSORBIDE MON. (IMDUR) 30 MG XR TAB PO SCH (08:45)
[2018-07-12] MEDS: CEPHALEXIN 500 MG CAP PO SCH (08:45)
[2018-07-12] MEDS: DOCUSATE SODIUM 100 MG CAP PO SCH ×2 (08:46→21:00)
[2018-07-12] MEDS: CARVedilol 12.5 MG TAB PO SCH ×2 (08:46→21:25)
[2018-07-12] MEDS: NYSTATIN 500,000 U/5 ML SUSP UDC PO SCH (08:46)
[2018-07-12] MEDS: LEVEMIR (INSULIN DETEMIR) 1 UNITS/0.01ML SC SCH ×2 (08:47→21:25)
[2018-07-12] MEDS: HumaLOG INSULIN (NovoLOG) PER UNIT SC SCH ×4 (08:47→21:00)
[2018-07-12] MEDS: NYSTATIN 100,000 UNITS/GM TOPICAL PWD 15 GM TOP SCH ×2 (08:48→21:26)
[2018-07-12] MEDS: ANALGESIC BALM CRM 120 GM TOP SCH ×3 (08:48→21:00)
[2018-07-12] MEDS: MAGNESIUM OXIDE 400 MG TAB (MAG-OX) PO SCH ×2 (12:31→21:24)
[2018-07-12 14:00] VITALS: BP 131/61
[2018-07-12 14:17] LABS: C REACTIVE PROTEIN QUANTITATIV 1.07 MG/DL (0.00-0.30)
--- NOTE | 2018-07-12 15:13 | IPNPDOC ---
Date Seen The patient was seen on 07/12/18. Progress Note Vascular Surgery Dr Matthews HPI: 67-year-old F status post left BKA 06/22/[address] Matthews. Transferred to the care of ADAMA Ash, 06/28/18. Pt is OOB to chair. Denies any fevers, chills, weakness, fatigue, Headache, Chest Pain, Shortness of breath, cough, palpitations, abdominal pain, N/V/D or changes in bowel or bladder habits. PAST MEDICAL HISTORY: As mentioned above PAST SURGICAL HISTORY: She has had right 2nd, 4th and 5th toe amputations, left 3rd, 4th, 5th toe amputations plus left ankle sx, a hysterectomy, cholecystectomy, partial appendectomy. PE: GEN: 67yoF, appears stated age. Alert and oriented x 3. HEENT: Normocephalic, atraumatic. Moist mucous membranes. CHEST: Regular rate and rhythm, +S1, +S2 LUNGS: Clear to auscultation bilaterally. No wheezes, rales, or rhonchi. ABD: Round, soft, non-tender, non-distended. +Bowel sounds throughout. No rebound or guarding. EXT: Status post left BKA, joselito intact. No drainage. S/P LUE AVF, palpable thrill is noted. Dry Dressing intact. SKIN: Martin, dry, warm. NEURO: Alert and oriented x 3. No focal deficits appreciated. A&P: 67-year-old F status post left BKA 06/22/[address] Matthews. Chronic Left foot wound /Osteomyelitis of L foot, growing MSSA from wound site. Status post left BKA as per Dr. Matthews 06/22/18. Patient is afebrile. WBC 6.7. CRP 1.49. CRP today pending. Augmentin x 10 D completed 07/08/18. Appreciate ID assistance. Dr Rodríguez examined stump 07/08/18. Pt placed on Keflex BID as per Dr Ramirez for persistent skin irritation. monitor. Acute renal failure superimposed on CKD Stage IV Demadex 30 mg BID Nephrology managing. HD access Dr. Yanez has requested vascular surgery to evaluate for AV fistula. Vein mapping completed 05/24/18. S/P AVF creation 07/06/[address] Matthews. Palpable thrill is noted on exam today, did not seem as prominent as it has previously, relayed to Dr Matthews. DVT prophylaxis. Subcutaneous heparin. A-FIB/CHADSVASC A-FIB History Current/History of A-Fib/PAF?: No VS, I&O, 24H, Fishbone Vital Signs/I&O Vital Signs Date Time Temp Pulse Resp B/P (MAP) Pulse Ox O2 Delivery O2 Flow Rate FiO2 07/12/18 14:00 98.1 80 18 131/61 (84) 97 07/10/18 21:00 2.0 I&O- Last 24 Hours up to 6 AM 07/12/18 06:00 Intake Total 720 ml Balance 720 ml Laboratory Data 24H LABS Laboratory Tests 2 07/11/18 16:49: Bedside Glucose (Misc Panel) 104 07/11/18 20:20: Bedside Glucose (Misc Panel) 145H 07/12/18 06:07: Immature Granulocyte % (Auto) 0.9, White Blood Count 6.7, Red Blood Count 3.68L, Hemoglobin 11.3L, Hematocrit 35.6L, Mean Corpuscular Volume 96.7H, Mean Corpuscular Hemoglobin 30.7, Mean Corpuscular Hemoglobin Concent 31.7L, Red Cell Distribution Width 16.2H, Platelet Count 221, Neutrophils (%) (Auto) 50.8, Lymphocytes (%) (Auto) 31.1, Monocytes (%) (Auto) 8.3H, Eosinophils (%) (Auto) 8.0H, Basophils (%) (Auto) 0.9, Neutrophils # (Auto) 3.4, Lymphocytes # (Auto) 2.1, Monocytes # (Auto) 0.6, Eosinophils # (Auto) 0.5, Basophils # (Auto) 0.1, Nucleated Red Blood Cells % (auto) 0.0, Anion Gap 10, Glomerular Filtration Rate 21.5L, Blood Urea Nitrogen 53H, Creatinine 2.41H, Sodium Level 138, Potassium Level 3.9, Chloride Level 98, Carbon Dioxide Level 30, Calcium Level 9.1, Magnesium Level 1.5L, C-Reactive Protein, Quantitative 1.07H 07/12/18 11:31: Bedside Glucose (Misc Panel) 123H CBC/BMP Laboratory Tests 07/12/18 06:07 Red Blood Count 3.68 L, Mean Corpuscular Volume 96.7 H, Mean Corpuscular Hemoglobin 30.7, Mean Corpuscular Hemoglobin Concent 31.7 L, Red Cell Distribution Width 16.2 H, Neutrophils (%) (Auto) 50.8, Lymphocytes (%) (Auto) 31.1, Monocytes (%) (Auto) 8.3 H, Eosinophils (%) (Auto) 8.0 H, Basophils (%) (Auto) 0.9, Neutrophils # (Auto) 3.4, Lymphocytes # (Auto) 2.1, Monocytes # (Auto) 0.6, Eosinophils # (Auto) 0.5, Basophils # (Auto) 0.1, Calcium Level 9.1 Clari Mike July 12, 2018 15:13
--- NOTE | 2018-07-12 17:10 | IPN ---
DATE: 07/12/2018 Norma is feeling well except for some pain in her left stump. She had no fever or chills. No nausea, vomiting, or diarrhea. No abdominal pain. She has been on cephalexin since July 08, 2018 for erythema of the stump with increased pain. There has been minimal improvement. On physical exam, vital signs are stable. Heart: Normal S1, S2. No murmurs. Lungs are clear. No wheezes, rales, or rhonchi. Abdomen: Obese, soft, nontender. Extremities: Left below-knee amputation (BKA), joselito in place. There is no drainage, but there is an open ulceration medially. There is erythema all around the stump and tenderness to touch. Warmth and redness. LABORATORY; White count is 6.7, hemoglobin 11.3, hematocrit 35,6, platelets 221. Sodium 138, potassium 3.9, chloride 98, bicarbonate 30, BUN 53, creatinine 2.41, glucose 205, calcium 9.1, magnesium 1.5, CRP 1.07 down from 1.5. IMPRESSION: Left stump swelling and erythema with increased tenderness. Patient had finished 10 days of Augmentin on 07/08/2018 and then she was switched to Keflex. There is no increased coverage between Keflex and Augmentin, so this will be discontinued. I will start doxycycline 100 mg by mouth twice a day to cover for methicillin-resistant Staphylococcus aureus (MRSA), methicillin-resistant Staphylococcus epidermidis (MRSE), and possible resistant staph infection. Will also obtain ultrasound of the stump to rule out collection, although my suspicion is low as her CRP has decreased. Acute kidney injury on superimposed chronic kidney disease. Her creatinine has improved to 2.4. PLAN: Ultrasound of stump tonight. Doxycycline 100 mg by mouth twice a day. Continue to monitor creatinine and CRP. Discontinue cephalexin; switch to doxycycline 100 mg by mouth twice a day for 10 days.
--- NOTE | 2018-07-12 18:41 | REP ---
LEFT LOWER EXTREMITY ULTRASOUND: Real-time sonographic evaluation of the left lower extremity was performed in this patient status-post amputation with distal skin redness. There is mild soft tissue edema which is ill-defined and superficial. No fluid collection or abscess is seen in the soft-tissues of this region. Electronically Signed by Kenny Huber MD 07/12/2018 07:58 P
[2018-07-12] MEDS: SENNA 8.6 MG TAB (SENOKOT) PO SCH (21:00)
[2018-07-12 21:20] VITALS: BP 163/70
[2018-07-12] MEDS: ATORVASTATIN 20 MG TAB PO SCH (21:24)
[2018-07-12] MEDS: CYCLOBENZAPRINE 10 MG TAB PO SCH (21:24)
[2018-07-12] MEDS: DOXYCYCLINE HYCLATE 100 MG TAB PO SCH (21:25)
[2018-07-13] MEDS: oxyCODONE 5MG TAB PO PRN ×3 (00:32→21:48)
[2018-07-13 06:00] VITALS: BP 135/61
[2018-07-13 06:32] LABS: BASO % 0.5 % (0.0-1.0); EOS # 0.5 10^3/uL (0.0-0.50); EOS % 6.3 % (0.0-3.0); HEMATOCRIT 33.9 % (36.0-47.0); HEMOGLOBIN 10.9 g/dl (12.0-15.5); LYMPH # 1.6 10^3/uL (1.5-4.5); LYMPH % 21.8 % (24.0-44.0); MEAN CORPUSCULAR HEMOGLOBIN 30.4 pg (27.0-33.0); MEAN CORPUSCULAR HGB CONC 32.2 g/dl (32.0-36.5); MEAN CORPUSCULAR VOLUME 94.7 fl (80.0-96.0); MONO # 0.6 10^3/uL (0.0-0.8); MONO % 8.5 % (0.0-5.0); NEUTROPHILS # 4.6 10^3/uL (1.8-7.7); NEUTROPHILS % 62.5 % (36.0-66.0); PLATELET COUNT, AUTOMATED 202 10^3/uL (150-450); RED BLOOD COUNT 3.58 10^6/uL (4.00-5.40); WHITE BLOOD COUNT 7.3 10^3/uL (4.0-10.0)
[2018-07-13] MEDS: HEPARIN SOD (PORCINE) 5000 UNITS/ML VIAL SC SCH ×3 (06:39→21:48)
[2018-07-13 07:00] LABS: CALCIUM LEVEL 8.9 MG/DL (8.8-10.2); CREATININE FOR GFR 2.32 MG/DL (0.55-1.30); GLOMERULAR FILTRATION RATE 22.4 (>45); POTASSIUM SERUM 4.1 MEQ/L (3.5-5.1)
[2018-07-13] MEDS: HumaLOG INSULIN (NovoLOG) PER UNIT SC SCH ×4 (08:43→21:00)
[2018-07-13] MEDS: LEVEMIR (INSULIN DETEMIR) 1 UNITS/0.01ML SC SCH ×2 (08:43→21:49)
[2018-07-13] MEDS: MAGNESIUM OXIDE 400 MG TAB (MAG-OX) PO SCH ×2 (08:43→21:46)
[2018-07-13] MEDS: ISOSORBIDE MON. (IMDUR) 30 MG XR TAB PO SCH (08:44)
[2018-07-13] MEDS: TORSEMIDE 10 MG TABLET PO SCH ×2 (08:44→17:09)
[2018-07-13] MEDS: PARoxetine 20 MG TAB PO SCH (08:44)
[2018-07-13] MEDS: CARVedilol 12.5 MG TAB PO SCH ×2 (08:44→21:47)
[2018-07-13] MEDS: ACETAMINOPHEN 500 MG TAB PO SCH ×3 (08:45→21:00)
[2018-07-13] MEDS: LACTOBACILLUS ACIDOPHILUS CAP (BACID) PO SCH ×3 (08:45→21:46)
[2018-07-13] MEDS: MULTIVITAMINS/MINERALS THERAP 1 TAB PO SCH (08:45)
[2018-07-13] MEDS: GABAPENTIN 300 MG CAP PO SCH ×3 (08:45→21:46)
[2018-07-13] MEDS: PANTOPRAZOLE 40MG TAB (PROTONIX) PO SCH (08:46)
[2018-07-13] MEDS: ANALGESIC BALM CRM 120 GM TOP SCH ×3 (08:46→21:00)
[2018-07-13] MEDS: FERROUS GLUCONATE 324 MG TAB PO SCH ×2 (08:46→21:46)
[2018-07-13] MEDS: DOXYCYCLINE HYCLATE 100 MG TAB PO SCH ×2 (08:46→21:47)
[2018-07-13] MEDS: NYSTATIN 100,000 UNITS/GM TOPICAL PWD 15 GM TOP SCH ×2 (08:47→21:49)
[2018-07-13] MEDS: DOCUSATE SODIUM 100 MG CAP PO SCH ×2 (08:47→21:00)
[2018-07-13] MEDS ORDERED: diphenhydrAMINE CREAM 30GM TOP PRN (09:00)
--- NOTE | 2018-07-13 10:41 | IPNPDOC ---
PM&R Progress Note DATE OF SERVICE: July 12, 2018 Epic Application Coordinator Progress Note Subjective: Patient had home eval today and was disappointed that the wheelchair did not fit through her bedroom door. REVIEW OF SYSTEMS: The following is a completed review of systems and has been reviewed. Review of systems otherwise unremarkable. PAIN: Patient self reports left leg pain EYES: denies recent vision loss EARS, NOSE, & THROAT: denies dysphagia, hearing loss or rhinorrhea CARDIOVASCULAR: denies chest pain or palpitations PULMONARY: Negative. Denies shortness of breath GASTROINTESTINAL: +constipation (improving) GENITOURINARY: Negative for dysuria MUSCULOSKELETAL: left BKA NEUROLOGICAL: peripheral neuropathy HEMATOLOGICAL:+anemia SKIN: LLE incision-line and proximal medial and lateral tibia blisters PSYCHIATRIC: Unremarkable All other review of systems found to be negative. PHYSICAL EXAMINATION: VITAL SIGNS: Please see below. GENERAL: Pleasant and cooperative. No acute distress. HEENT: PERRL. Extraocular movements intact. Clear conjunctiva CARDIOVASCULAR: Regular rate and rhythm. No murmurs, rubs, or gallops LUNGS: Clear to auscultation bilaterally. No wheezes. No rhonchi ABDOMEN: Soft, nontender, mildly-distended. Positive bowel sounds. Normal active bowel sounds] NEUROLOGICAL: Alert and oriented times three. Cranial nerves II through XII grossly intact. Sensation diminished in RLE to light touch and poor proprioception EXTREMITIES: 5\5 strength bilateral upper extremities. 5-\5 strength right lower extremity. 5-/5 strength in left hip flexor and knee extension bilat LE edema right foot with digits 2,3,and 5 amputated SKIN: LLE incision-line and per-wound area erythematous, warm, mildly painful to touch -proximal medial, lateral posterior tibia blisters c/d/i ASSESSMENT:67-year-old F with past medical history of CKD4 and diabetic ulcers d/p multiple amputations who presents status post left BKA PLAN: 1. Rehab: PT/OT, assess for DMEs, improving squat pivot transfers and approaching mod-I for functional mobility from wheelchair level, able to perform squats and ambulate a few feet on one limb 2. Neuro: stable- avoid delirogenic meds 3. Cardiac: pmh HTN and HLD continue Imdur, Co-Reg and statin therapy- medicine consulted -last ECHO 04/2018 showing preserved systolic function with mild diastolic function- c/u diuretics -s/p AV fistula 07/06/[address] Matthews 4. resp: encourage incentive spirometry, monitor for infection 5. ID: recent hx of MSSA left foot ulcer s/p BKA and course of IV Cefazoline, per ID recs monitor off antibiotics, s/p 10-day course of Augmentin-concern yesterday that cristian-incision area is more erythematous, warm, painful to touch compared to previous exams, concern for infection despite course of Augmentin, switched to Keflex however limb still appears infected, will as ID to assist 6. Renal: pmh CKD4 with recent emergent dialysis at last hospitalization, s/p gentle hydration with improvements- consulted renal to manage fluid balance and anemia-recs appreciated 7. Heme: anemia of chronic disease- renal consulted, c/u Iron 8. GI ppx: protonix- constipation resolved 9. DVT ppx: heparin 10. Endo: poorly controlled DM with neuropathy- c/u insulin and ISS, adjust prn- stable 11. Pain: c/u oxycodone Hcl prn and c/u standing tylenol, f/u Flexeril qHS, c/u gabapentin 12. Psych: depression, c/u Paxil 13. : admission UA and UCx positive for SERRATIA MARCESCENS s/p one time dose of Fosfomycin , repeat UA negative monitor PVRs 14. Skin: BID skin checks with BID dressing changes, monitor for infection- ok to use Hangar orthotic at night avoiding daytime use as poorly fitting and possibly causing blister formation on proximal tibia- suspect sulfa/sulfonamide allergy vs bullous pemphigoid reaction to lasix contributing to blisters a lthough not clear, does have chronic eosinophilia and family hx of blistering condition, will refer to outpatient derm 15. Dispo: 07/13/18 to home, s/p home eval 07/12/18 hwoever waiting at this time for proper fitting wheelchair, may need to delay d/c by a day DME: Patient will require a wheelchair in order to complete her MRADLs in in a reasonable time frame, and would not be able to complete her MRADLs without one. The use of a wheelchair will increase her functional mobility, her home is accessible, and she is willing to use one. Her is also willing to help her with the use of the wheelchair. Allergies Coded Allergies: TAPE (Verified Allergy, Intermediate, RASH, 05/19/18) citric acid (Verified Allergy, Intermediate, HIVES/ITCHING, 05/19/18) sodium bicarbonate (Verified Allergy, Intermediate, HIVES/ITCHING, 05/19/18) Sulfa (Sulfonamide Antibiotics) (Verified Allergy, Mild, 06/28/18) rash hydrocodone (Verified Allergy, Mild, ITCHES, 05/19/18) Vital Signs Vital Signs Date Time Temp Pulse Resp B/P (MAP) Pulse Ox O2 Delivery O2 Flow Rate FiO2 07/13/18 10:25 18 07/13/18 08:44 135/61 07/13/18 06:00 98.1 108 98 07/10/18 21:00 2.0 Laboratory Data CBC/BMP Laboratory Tests 07/13/18 06:19 Red Blood Count 3.58 L, Mean Corpuscular Volume 94.7, Mean Corpuscular Hemoglobin 30.4, Mean Corpuscular Hemoglobin Concent 32.2, Red Cell Distribution Width 16.4 H, Neutrophils (%) (Auto) 62.5, Lymphocytes (%) (Auto) 21.8 L, Monocytes (%) (Auto) 8.5 H, Eosinophils (%) (Auto) 6.3 H, Basophils (%) (Auto) 0.5, Neutrophils # (Auto) 4.6, Lymphocytes # (Auto) 1.6, Monocytes # (Auto) 0.6, Eosinophils # (Auto) 0.5, Basophils # (Auto) 0.0, Calcium Level 8.9 Labs 24H Laboratory Tests 2 07/12/18 11:31: Bedside Glucose (Misc Panel) 123H 07/12/18 17:06: Bedside Glucose (Misc Panel) 134H 07/12/18 21:11: Bedside Glucose (Misc Panel) 176H 07/13/18 06:19: Immature Granulocyte % (Auto) 0.4, White Blood Count 7.3, Red Blood Count 3.58L, Hemoglobin 10.9L, Hematocrit 33.9L, Mean Corpuscular Volume 94.7, Mean Corpuscular Hemoglobin 30.4, Mean Corpuscular Hemoglobin Concent 32.2, Red Cell Distribution Width 16.4H, Platelet Count 202, Neutrophils (%) (Auto) 62.5, Lymphocytes (%) (Auto) 21.8L, Monocytes (%) (Auto) 8.5H, Eosinophils (%) (Auto) 6.3H, Basophils (%) (Auto) 0.5, Neutrophils # (Auto) 4.6, Lymphocytes # (Auto) 1.6, Monocytes # (Auto) 0.6, Eosinophils # (Auto) 0.5, Basophils # (Auto) 0.0, Nucleated Red Blood Cells % (auto) 0.0, Anion Gap 9, Glomerular Filtration Rate 22.4L, Blood Urea Nitrogen 57H, Creatinine 2.32H, Sodium Level 137, Potassium Level 4.1, Chloride Level 99, Carbon Dioxide Level 29, Calcium Level 8.9 07/13/18 06:44: Bedside Glucose (Misc Panel) 185H Current Medications Current Medications Current Medications Acetaminophen (Tylenol Tab) 650 mg Q24H PRN PO fever; Start 06/28/18 at 12:45 Acetaminophen (Tylenol Tab) 1,000 mg TID PO Last administered on 07/13/18at 08:45; Start 06/28/18 at 16:00 Al Hydrox/Mg Hydrox/Simethicone (Mylanta) 30 ml Q4HP PRN PO DYSPEPSIA; Start 06/28/18 at 12:45 Amoxicillin/ Clavulanate Potassium (Augmentin) 500 mg BID PO Last administered on 07/08/18at 09:25; Start 06/28/18 at 21:00; Stop 07/08/18 at 09:01; Status DC Atorvastatin Calcium (Lipitor) 40 mg QHS PO Last administered on 07/12/18at 21:24; Start 06/28/18 at 21:00 Bisacodyl (Dulcolax Suppository) 10 mg DAILYPRN PRN MA CONSTIPATION; Start 06/28/18 at 12:45 Carvedilol (COReg) 12.5 mg BID PO Last administered on 07/13/18at 08:44; Start 06/28/18 at 21:00 Cephalexin Monohydrate (Keflex) 500 mg BID PO Last administered on 07/12/18at 08:45; Start 07/08/18 at 21:00; Stop 07/12/18 at 16:57; Status DC Cyclobenzaprine HCl (Flexeril) 10 mg QHS PO Last administered on 07/12/18at 21:24; Start 06/28/18 at 21:00 Darbepoetin German (Aranesp) 100 mcg Fr@09 SC Last administered on 07/09/18at 10:37; Start 07/02/18 at 09:00 Dextrose (Dextrose 50%) 25 ml ASDIRECTED PRN IV SEE LABEL COMMENTS; Start 06/28/18 at 12:45 Diphenhydramine HCl (Benadryl Cream) to area waistline QID PRN TOP ITCHING; Start 07/13/18 at 09:00 Docusate Sodium (Colace) 100 mg BID PO Last administered on 07/04/18at 08:25; Start 06/28/18 at 21:00 Doxycycline Hyclate (Vibramycin) 100 mg BID PO Last administered on 07/13/18at 08:46; Start 07/12/18 at 21:00 Fentanyl Citrate (Sublimaze) 25 mcg Q5MP PRN IV MODERATE PAIN (PS 4-7); Start 07/06/18 at 13:45; Stop 07/06/18 at 14:45; Status DC Ferrous Gluconate (Fergon) 324 mg BID PO Last administered on 07/13/18at 08:46; Start 06/28/18 at 21:00 Gabapentin (Neurontin) 300 mg BID PO Last administered on 07/07/18 08:52; Start 07/03/18 at 09:00; Stop 07/07/18 at 09:43; Status DC Gabapentin (Neurontin) 300 mg QAM PO Last administered on 07/01/18 09:05; Start 06/29/18 at 09:00; Stop 07/01/18 at 10:31; Status DC Gabapentin (Neurontin) 300 mg TID PO Last administered on 07/13/18 08:45; Start 07/07/18 at 16:00 Gabapentin (Neurontin) 600 mg Q8H PO Last administered on 07/02/18at 05:35; Start 07/01/18 at 14:00; Stop 07/02/18 at 13:27; Status DC Gabapentin (Neurontin) 600 mg QHS PO Last administered on 06/30/18at 20:56; Start 06/28/18 at 21:00; Stop 07/01/18 at 10:31; Status DC Glucagon (Glucagon) 1 mg ASDIRECTED PRN SC SEE LABEL COMMENTS; Start 06/28/18 at 12:45 Glucose (Glucose) 16 GM ASDIRECTED PRN PO SEE LABEL COMMENTS; Start 06/28/18 at 12:45 Heparin Sodium (Heparin (Flush)) 200 units ASDIRECTED PRN IV SEE LABEL COMMENTS Last administered on 06/30/18at 02:45; Start 06/29/18 at 05:45; Stop 07/01/18 at 23: 21; Status DC Heparin Sodium (Heparin (Flush)) 200 units PICC IV Last administered on 07/01/18at 05:39; Start 06/29/18 at 06:00; Stop 07/01/18 at 23:21; Status DC Heparin Sodium (Porcine) (Heparin) 5,000 units Q8H SC Last administered on 07/13/18at 06:39; Start 06/28/18 at 22:00 Hydromorphone HCl (Dilaudid) 1 mg Q4HP PRN PO MODERATE/SEVERE PAIN (PS 5-10); Start 07/05/18 at 15:45; Stop 07/06/18 at 17:34; Status DC Hydromorphone HCl (Dilaudid) 2 mg Q24H PRN PO MODERATE/SEVERE PAIN (PS 5-10) Last administered on 07/05/18at 21:25; Start 07/05/18 at 15:45; Stop 07/06/18 at 17:34; Status DC Hydromorphone HCl (Dilaudid) 2 mg Q4HP PRN PO MODERATE/SEVERE PAIN (PS 5-10) Last administered on 07/05/18at 06:28; Start 06/28/18 at 12:45; Stop 07/05/18 at 15:41; Status DC Insulin Detemir (Levemir Insulin) 30 units BID SC Last administered on 07/13/18 08:43; Start 06/28/18 at 21:00; Status Future hold Insulin Human Lispro (HumaLOG INSULIN) SEE PROTOCOL TABLE AC SC Last administered on 07/13/18at 08:43; Start 06/28/18 at 17:30 Insulin Human Lispro (HumaLOG INSULIN) SEE PROTOCOL TABLE QHS SC Last ad ministered on 07/10/18at 21:18; Start 06/28/18 at 21:00 Isosorbide Mononitrate (Imdur) 30 mg QAM PO Last administered on 07/13/18at 08:44; Start 06/29/18 at 09:00 Lactobacillus Acidophilus (Bacid) 1 ea TID PO Last administered on 07/13/18at 08:45; Start 07/08/18 at 16:00 Lactobacillus Acidophilus (Bacid) 1 ea TID PO ; Start 07/09/18 at 16:00; Stop 07/09/18 at 16:00; Status DC Lactulose (Cephulac) 15 ml DAILYPRN PRN PO CONSTIPATION Last administered on 06/29/18at 14:05; Start 06/29/18 at 12:15 Magnesium Hydroxide (Milk Of Magnesia) 30 ml DAILYPRN PRN PO CONSTIPATION Last administered on 06/29/18at 21:21; Start 06/28/18 at 12:45; Stop 06/30/18 at 15:54; Status DC Magnesium Oxide (Mag-Ox) 400 mg BID PO Last administered on 07/13/18at 08:43; Start 07/12/18 at 09:00 Magnesium Oxide (Mag-Ox) 400 mg DAILY PO Last administered on 06/30/18at 09:10; Start 06/29/18 at 09:00; Stop 07/01/18 at 04:16; Status DC Menthol/Methyl Salicylate (Bengay Cream) TID TOP Last administered on 07/13/18at 08:46; Start 06/29/18 at 09:00 Miscellaneous (Unresolved Clarification Entry) SEE LABEL COMMENTS DAILY XX ; Start 07/04/18 at 09:00; Stop 07/05/18 at 08:00; Status DC Miscellaneous (Unresolved Clarification Entry) SEE LABEL COMMENTS DAILY XX ; Start 07/05/18 at 09:00; Stop 07/05/18 at 11:33; Status DC Miscellaneous (Unresolved Clarification Entry) SEE LABEL COMMENTS DAILY XX ; Start 07/11/18 at 09:00; Stop 07/12/18 at 11:52; Status DC Miscellaneous (Unresolved Clarification Entry) SEE LABEL COMMENTS DAILY XX ; Start 06/29/18 at 09:00; Status Cancel Multivitamins (Theragram-M) 1 tab DAILY PO Last administered on 07/13/18at 08:45; Start 06/28/18 at 09:00 Nystatin (Mycostatin Powder, Nystop) groin and abdominal folds BID TOP Last administered on 07/13/18 08:47; Start 06/28/18 at 21:00 Nystatin (Mycostatin) 5 ml QID PO Last administered on 07/10/18 08:16; Start 06/28/18 at 17:00; Stop 07/12/18 at 10:16; Status DC Oxycodone HCl (Roxicodone, Oxyir) 5 mg Q4HP PRN PO PAIN Last administered on 07/13/18 10:25; Start 07/06/18 at 17:45 Oxycodone/ Acetaminophen (Percocet 5mg/ 325mg Tablet) 1 tab ASDIRECTED PRN PO MILD/MODERATE PAIN (PS 1-7) Last administered on 07/06/18 14:10; Start 07/06/18 at 14:30; Stop 07/06/18 at 15:30; Status DC Pantoprazole Sodium (Protonix) 40 mg DAILY PO Last administered on 07/13/18 08:46; Start 06/29/18 at 09:00 Paroxetine HCl (PAXil) 40 mg DAILY PO Last administered on 07/13/18 08:44; Start 06/29/18 at 09:00 Senna (Senokot) 1 tab QHS PO Last administered on 07/03/18 20:49; Start 06/28/18 at 21:00 Sodium Chloride (Saline Lock Flush) 10 ml ASDIRECTED PRN IV SEE LABEL COMMENTS Last administered on 06/30/18 02:46; Start 06/29/18 at 05:45; Stop 07/01/18 at 23:21; Status DC Sodium Chloride (Saline Lock Flush) 10 ml PICC IV Last administered on 07/01/18 05:39; Start 06/29/18 at 06:00; Stop 07/01/18 at 23:21; Status DC Torsemide (Demadex) 20 mg BID@, PO Last administered on 06/30/18 09:09; Start 06/28/18 at 17:00; Stop 06/30/18 at 10:29; Status DC Torsemide (Demadex) 30 mg BID@,17 PO Last administered on 5/21/19at 08:44; Start 06/30/18 at 17:00 A-FIB/CHADSVASC A-FIB History Current/History of A-Fib/PAF?: No MAN RESTREPO MD July 13, 2018 10:41
--- NOTE | 2018-07-13 10:47 | IPNPDOC ---
PM&R Progress Note DATE OF SERVICE: July 13, 2018 [employer] Progress Note Subjective: Patient seen wheeling herself to therapy, reports she had a loss of balance transferring to the commode yesterday. REVIEW OF SYSTEMS: The following is a completed review of systems and has been reviewed. Review of systems otherwise unremarkable. PAIN: Patient self reports left leg pain EYES: denies recent vision loss EARS, NOSE, & THROAT: denies dysphagia, hearing loss or rhinorrhea CARDIOVASCULAR: denies chest pain or palpitations PULMONARY: Negative. Denies shortness of breath GASTROINTESTINAL: +constipation (improving) GENITOURINARY: Negative for dysuria MUSCULOSKELETAL: left BKA NEUROLOGICAL: peripheral neuropathy HEMATOLOGICAL:+anemia SKIN: LLE incision-line and proximal medial and lateral tibia blisters PSYCHIATRIC: Unremarkable All other review of systems found to be negative. PHYSICAL EXAMINATION: VITAL SIGNS: Please see below. GENERAL: Pleasant and cooperative. No acute distress. HEENT: PERRL. Extraocular movements intact. Clear conjunctiva CARDIOVASCULAR: Regular rate and rhythm. No murmurs, rubs, or gallops LUNGS: Clear to auscultation bilaterally. No wheezes. No rhonchi ABDOMEN: Soft, nontender, mildly-distended. Positive bowel sounds. Normal active bowel sounds] NEUROLOGICAL: Alert and oriented times three. Cranial nerves II through XII grossly intact. Sensation diminished in RLE to light touch and poor propriocepti on EXTREMITIES: 5\\5 strength bilateral upper extremities. 5-\\5 strength right lower extremity. 5-/5 strength in left hip flexor and knee extension bilat LE edema right foot with digits 2,3,and 5 amputated SKIN: LLE incision-line and per-wound area erythematous, warm, mildly painful to touch -proximal medial, lateral posterior tibia blisters c/d/i ASSESSMENT:67-year-old F with past medical history of CKD4 and diabetic ulcers d/p multiple amputations who presents status post left BKA PLAN: 1. Rehab: PT/OT, assess for DMEs, improving squat pivot transfers and approaching mod-I for functional mobility from wheelchair level, able to perform squats and ambulate a few feet on one limb- patient had a loss of balance transferring to commode, will need a bariatric commode 2. Neuro: stable- avoid delirogenic meds 3. Cardiac: pmh HTN and HLD continue Imdur, Co-Reg and statin therapy- medicine consulted -last ECHO 04/2018 showing preserved systolic function with mild diastolic function- c/u diuretics -s/p AV fistula 07/06/[address] Matthews 4. resp: encourage incentive spirometry, monitor for infection 5. ID: recent hx of MSSA left foot ulcer s/p BKA and course of IV Cefazoline, per ID recs monitor off antibiotics, s/p 10-day course of Augmentin-concern yesterday that cristian-incision area is more erythematous, warm, painful to touch compared to previous exams, concern for infection despite course of Augmentin, switched to Keflex however limb still appears infected- CRP trending down, per ID recs, "Doxycycline 100 mg by mouth twice a day. Continue to monitor creatinine and CRP. Discontinue cephalexin; switch to doxycycline 100 mg by mouth twice a day for 10 days" Recs greatly appreciated 6. Renal: pmh CKD4 with recent emergent dialysis at last hospitalization, s/p gentle hydration with improvements- consulted renal to manage fluid balance and anemia-recs appreciated 7. Heme: anemia of chronic disease- renal consulted, c/u Iron 8. GI ppx: protonix- constipation resolved 9. DVT ppx: heparin 10. Endo: poorly controlled DM with neuropathy- c/u insulin and ISS, adjust prn- stable 11. Pain: c/u oxycodone Hcl prn and c/u standing tylenol, f/u Flexeril qHS, c/u gabapentin 12. Psych: depression, c/u Paxil 13. : admission UA and UCx positive for SERRATIA MARCESCENS s/p one time dose of Fosfomycin , repeat UA negative monitor PVRs 14. Skin: BID skin checks with BID dressing changes, monitor for infection- ok to use Hangar orthotic at night avoiding daytime use as poorly fitting and possibly causing blister formation on proximal tibia- suspect sulfa/sulfonamide allergy vs bullous pemphigoid reaction to lasix contributing to blisters a lthough not clear, does have chronic eosinophilia and family hx of blistering condition, will refer to outpatient derm 15. Dispo: 07/13/18 to home, s/p home eval 07/12/18 however waiting at this time for proper fitting wheelchair, may need to delay d/c by a day DME: Patient will require a wheelchair in order to complete her MRADLs in in a reasonable time frame, and would not be able to complete her MRADLs without one. The use of a wheelchair will increase her functional mobility, her home is accessible, and she is willing to use one. Her is also willing to help her with the use of the wheelchair. Allergies Coded Allergies: TAPE (Verified Allergy, Intermediate, RASH, 05/19/18) citric acid (Verified Allergy, Intermediate, HIVES/ITCHING, 05/19/18) sodium bicarbonate (Verified Allergy, Intermediate, HIVES/ITCHING, 05/19/18) Sulfa (Sulfonamide Antibiotics) (Verified Allergy, Mild, 06/28/18) rash hydrocodone (Verified Allergy, Mild, ITCHES, 05/19/18) Vital Signs Vital Signs Date Time Temp Pulse Resp B/P (MAP) Pulse Ox O2 Delivery O2 Flow Rate FiO2 07/13/18 10:25 18 07/13/18 08:44 135/61 07/13/18 06:00 98.1 108 98 07/10/18 21:00 2.0 Laboratory Data CBC/BMP Laboratory Tests 07/13/18 06:19 Red Blood Count 3.58 L, Mean Corpuscular Volume 94.7, Mean Corpuscular Hemoglobin 30.4, Mean Corpuscular Hemoglobin Concent 32.2, Red Cell Distribution Width 16.4 H, Neutrophils (%) (Auto) 62.5, Lymphocytes (%) (Auto) 21.8 L, Monocytes (%) (Auto) 8.5 H, Eosinophils (%) (Auto) 6.3 H, Basophils (%) (Auto) 0.5, Neutrophils # (Auto) 4.6, Lymphocytes # (Auto) 1.6, Monocytes # (Auto) 0.6, Eosinophils # (Auto) 0.5, Basophils # (Auto) 0.0, Calcium Level 8.9 Labs 24H Laboratory Tests 2 07/12/18 11:31: Bedside Glucose (Misc Panel) 123H 07/12/18 17:06: Bedside Glucose (Misc Panel) 134H 07/12/18 21:11: Bedside Glucose (Misc Panel) 176H 07/13/18 06:19: Immature Granulocyte % (Auto) 0.4, White Blood Count 7.3, Red Blood Count 3.58L, Hemoglobin 10.9L, Hematocrit 33.9L, Mean Corpuscular Volume 94.7, Mean Corpuscular Hemoglobin 30.4, Mean Corpuscular Hemoglobin Concent 32.2, Red Cell Distribution Width 16.4H, Platelet Count 202, Neutrophils (%) (Auto) 62.5, Lymphocytes (%) (Auto) 21.8L, Monocytes (%) (Auto) 8.5H, Eosinophils (%) (Auto) 6.3H, Basophils (%) (Auto) 0.5, Neutrophils # (Auto) 4.6, Lymphocytes # (Auto) 1.6, Monocytes # (Auto) 0.6, Eosinophils # (Auto) 0.5, Basophils # (Auto) 0.0, Nucleated Red Blood Cells % (auto) 0.0, Anion Gap 9, Glomerular Filtration Rate 22.4L, Blood Urea Nitrogen 57H, Creatinine 2.32H, Sodium Level 137, Potassium Level 4.1, Chloride Level 99, Carbon Dioxide Level 29, Calcium Level 8.9 07/13/18 06:44: Bedside Glucose (Misc Panel) 185H Current Medications Current Medications Current Medications Acetaminophen (Tylenol Tab) 650 mg Q24H PRN PO fever; Start 06/28/18 at 12:45 Acetaminophen (Tylenol Tab) 1,000 mg TID PO Last administered on 07/13/18at 08:45; Start 06/28/18 at 16:00 Al Hydrox/Mg Hydrox/Simethicone (Mylanta) 30 ml Q4HP PRN PO DYSPEPSIA; Start 06/28/18 at 12:45 Amoxicillin/ Clavulanate Potassium (Augmentin) 500 mg BID PO Last administered on 07/08/18at 09:25; Start 06/28/18 at 21:00; Stop 07/08/18 at 09:01; Status DC Atorvastatin Calcium (Lipitor) 40 mg QHS PO Last administered on 07/12/18at 21:24; Start 06/28/18 at 21:00 Bisacodyl (Dulcolax Suppository) 10 mg DAILYPRN PRN GA CONSTIPATION; Start 06/28/18 at 12:45 Carvedilol (COReg) 12.5 mg BID PO Last administered on 07/13/18at 08:44; Start 06/28/18 at 21:00 Cephalexin Monohydrate (Keflex) 500 mg BID PO Last administered on 07/12/18 08:45; Start 07/08/18 at 21:00; Stop 07/12/18 at 16:57; Status DC Cyclobenzaprine HCl (Flexeril) 10 mg QHS PO Last administered on 07/12/18at 21:24; Start 06/28/18 at 21:00 Darbepoetin German (Aranesp) 100 mcg Fr@09 SC Last administered on 07/09/18at 10:37; Start 07/02/18 at 09:00 Dextrose (Dextrose 50%) 25 ml ASDIRECTED PRN IV SEE LABEL COMMENTS; Start 06/28/18 at 12:45 Diphenhydramine HCl (Benadryl Cream) to area waistline QID PRN TOP ITCHING; Start 07/13/18 at 09:00 Docusate Sodium (Colace) 100 mg BID PO Last administered on 07/04/18at 08:25; Start 06/28/18 at 21:00 Doxycycline Hyclate (Vibramycin) 100 mg BID PO Last administered on 07/13/18at 08:46; Start 07/12/18 at 21:00 Fentanyl Citrate (Sublimaze) 25 mcg Q5MP PRN IV MODERATE PAIN (PS 4-7); Start 07/06/18 at 13:45; Stop 07/06/18 at 14:45; Status DC Ferrous Gluconate (Fergon) 324 mg BID PO Last administered on 07/13/18at 08:46; Start 06/28/18 at 21:00 Gabapentin (Neurontin) 300 mg BID PO Last administered on 07/07/18at 08:52; Start 07/03/18 at 09:00; Stop 07/07/18 at 09:43; Status DC Gabapentin (Neurontin) 300 mg QAM PO Last administered on 07/01/18 09:05; Start 06/29/18 at 09:00; Stop 07/01/18 at 10:31; Status DC Gabapentin (Neurontin) 300 mg TID PO Last administered on 07/13/18 08:45; Start 07/07/18 at 16:00 Gabapentin (Neurontin) 600 mg Q8H PO Last administered on 07/02/18at 05:35; Start 07/01/18 at 14:00; Stop 07/02/18 at 13:27; Status DC Gabapentin (Neurontin) 600 mg QHS PO Last administered on 06/30/18at 20:56; Start 06/28/18 at 21:00; Stop 07/01/18 at 10:31; Status DC Glucagon (Glucagon) 1 mg ASDIRECTED PRN SC SEE LABEL COMMENTS; Start 06/28/18 at 12:45 Glucose (Glucose) 16 GM ASDIRECTED PRN PO SEE LABEL COMMENTS; Start 06/28/18 at 12:45 Heparin Sodium (Heparin (Flush)) 200 units ASDIRECTED PRN IV SEE LABEL COMMENTS Last administered on 06/30/18at 02:45; Start 06/29/18 at 05:45; Stop 07/01/18 at 23: 21; Status DC Heparin Sodium (Heparin (Flush)) 200 units PICC IV Last administered on 07/01/18at 05:39; Start 06/29/18 at 06:00; Stop 07/01/18 at 23:21; Status DC Heparin Sodium (Porcine) (Heparin) 5,000 units Q8H SC Last administered on 07/13/18at 06:39; Start 06/28/18 at 22:00 Hydromorphone HCl (Dilaudid) 1 mg Q4HP PRN PO MODERATE/SEVERE PAIN (PS 5-10); Start 07/05/18 at 15:45; Stop 07/06/18 at 17:34; Status DC Hydromorphone HCl (Dilaudid) 2 mg Q24H PRN PO MODERATE/SEVERE PAIN (PS 5-10) Last administered on 07/05/18at 21:25; Start 07/05/18 at 15:45; Stop 07/06/18 at 17:34; Status DC Hydromorphone HCl (Dilaudid) 2 mg Q4HP PRN PO MODERATE/SEVERE PAIN (PS 5-10) Last administered on 07/05/18at 06:28; Start 06/28/18 at 12:45; Stop 07/05/18 at 15:41; Status DC Insulin Detemir (Levemir Insulin) 30 units BID SC Last administered on 07/13/18at 08:43; Start 06/28/18 at 21:00; Status Future hold Insulin Human Lispro (HumaLOG INSULIN) SEE PROTOCOL TABLE AC SC Last administered on 07/13/18at 08:43; Start 06/28/18 at 17:30 Insulin Human Lispro (HumaLOG INSULIN) SEE PROTOCOL TABLE QHS SC Last ad ministered on 07/10/18at 21:18; Start 06/28/18 at 21:00 Isosorbide Mononitrate (Imdur) 30 mg QAM PO Last administered on 07/13/18at 08:44; Start 06/29/18 at 09:00 Lactobacillus Acidophilus (Bacid) 1 ea TID PO Last administered on 07/13/18at 08:45; Start 07/08/18 at 16:00 Lactobacillus Acidophilus (Bacid) 1 ea TID PO ; Start 07/09/18 at 16:00; Stop 07/09/18 at 16:00; Status DC Lactulose (Cephulac) 15 ml DAILYPRN PRN PO CONSTIPATION Last administered on 06/29/18at 14:05; Start 06/29/18 at 12:15 Magnesium Hydroxide (Milk Of Magnesia) 30 ml DAILYPRN PRN PO CONSTIPATION Last administered on 06/29/18at 21:21; Start 06/28/18 at 12:45; Stop 06/30/18 at 15:54; Status DC Magnesium Oxide (Mag-Ox) 400 mg BID PO Last administered on 07/13/18at 08:43; Start 07/12/18 at 09:00 Magnesium Oxide (Mag-Ox) 400 mg DAILY PO Last administered on 06/30/18at 09:10; Start 06/29/18 at 09:00; Stop 07/01/18 at 04:16; Status DC Menthol/Methyl Salicylate (Bengay Cream) TID TOP Last administered on 07/13/18at 08:46; Start 06/29/18 at 09:00 Miscellaneous (Unresolved Clarification Entry) SEE LABEL COMMENTS DAILY XX ; Start 07/04/18 at 09:00; Stop 07/05/18 at 08:00; Status DC Miscellaneous (Unresolved Clarification Entry) SEE LABEL COMMENTS DAILY XX ; Start 07/05/18 at 09:00; Stop 07/05/18 at 11:33; Status DC Miscellaneous (Unresolved Clarification Entry) SEE LABEL COMMENTS DAILY XX ; Start 07/11/18 at 09:00; Stop 07/12/18 at 11:52; Status DC Miscellaneous (Unresolved Clarification Entry) SEE LABEL COMMENTS DAILY XX ; Start 06/29/18 at 09:00; Status Cancel Multivitamins (Theragram-M) 1 tab DAILY PO Last administered on 07/13/18at 08:45; Start 06/28/18 at 09:00 Nystatin (Mycostatin Powder, Nystop) groin and abdominal folds BID TOP Last administered on 07/13/18 08:47; Start 06/28/18 at 21:00 Nystatin (Mycostatin) 5 ml QID PO Last administered on 07/10/18at 08:16; Start 06/28/18 at 17:00; Stop 07/12/18 at 10:16; Status DC Oxycodone HCl (Roxicodone, Oxyir) 5 mg Q4HP PRN PO PAIN Last administered on 07/13/18at 10:25; Start 07/06/18 at 17:45 Oxycodone/ Acetaminophen (Percocet 5mg/ 325mg Tablet) 1 tab ASDIRECTED PRN PO MILD/MODERATE PAIN (PS 1-7) Last administered on 07/06/18at 14:10; Start 07/06/18 at 14:30; Stop 07/06/18 at 15:30; Status DC Pantoprazole Sodium (Protonix) 40 mg DAILY PO Last administered on 07/13/18 08:46; Start 06/29/18 at 09:00 Paroxetine HCl (PAXil) 40 mg DAILY PO Last administered on 07/13/18at 08:44; Start 06/29/18 at 09:00 Senna (Senokot) 1 tab QHS PO Last administered on 07/03/18at 20:49; Start 06/28/18 at 21:00 Sodium Chloride (Saline Lock Flush) 10 ml ASDIRECTED PRN IV SEE LABEL COMMENTS Last administered on 06/30/18at 02:46; Start 06/29/18 at 05:45; Stop 07/01/18 at 23:21; Status DC Sodium Chloride (Saline Lock Flush) 10 ml PICC IV Last administered on 07/01/18at 05:39; Start 06/29/18 at 06:00; Stop 07/01/18 at 23:21; Status DC Torsemide (Demadex) 20 mg BID@,17 PO Last administered on 06/30/18at 09:09; Start 06/28/18 at 17:00; Stop 06/30/18 at 10:29; Status DC Torsemide (Demadex) 30 mg BID@, PO Last administered on 07/13/18at 08:44; Start 06/30/18 at 17:00 A-FIB/CHADSVASC A-FIB History Current/History of A-Fib/PAF?: No MAN RESTREPO MD July 13, 2018 10:47
--- NOTE | 2018-07-13 11:15 | IPNPDOC ---
Text Note Date of Service The patient was seen on 07/13/18. NOTE Nephrology Service: Subjective: Patient seen and examined in physical therapy/ARU unit. Is status post L BKA. Is also AVF creation of LUE on 07/[address] Matthews. Doing well with PT. Will likely be going home today. Hemodynamically stable. Creatinine stable. Reports her pain is controlled today. Admits to discomfort and drainage with L BKA stump site. On vibramycin now. Otherwise, patient has no acute complaints and is able to show us that she is walking well on R leg with handle bars in PT. Patient denies chest pain, SOB, headache, fevers, chills, nausea, vomiting, abdominal pain, diarrhea, constipation. Objective: Vitals: T: 98.1 BP: 135/61 RR: 18 P: 108 O2 Saturation: 98% on room air Weight: 120.3 kg on 07/11 and 119.7 kg today Intake: 960 ml Output: Not recorded; 8 voids, 1 BM. General: AAO x 3. Morbidly obese adult female seen sitting in [facility] in physical therapy room. Cooperative and pleasant. Psychiatric: Euthymic mood and normal affect. HEENT: Head: normocephalic, atraumatic. Neck: Supple. No cervical LAD bilaterally. Respiratory: Clear to auscultation bilaterally with no wheezes, rales, or rhonchi. Cardiovascular: Normal S1S2, regular rate and rhythm at time of my exam, with no murmurs, rubs or gallops. Abdomen: Soft, obese, nontender, nondistended, no hepatosplenomegaly appreciated. Normoactive bowel sounds. Extremities: LLE BKA stump site wrapped with gauze dressing. Trace pitting edema noted RLE. (+)LUE AV fistula present. Musculoskeletal: (+)L below the knee amputation. Neurological: No focal neurologic deficits appreciated bilaterally. Laboratory data: CBC: WBC 7.3, Hgb 10.9, Platelets 202. BMP: Na 137, K 4.1, BUN 57, Cr 2.32, Glucose: 207 Imagin/20 LLE U/S Nonvascular done for L stump pain redness: mild soft tissue edema which is ill-defined and superficial. No fluid collection or abscess is seen in the soft-tissues of this region. Current Inpatient Medications: Aranesp (Darbepoetin German) 100 mcg Fr@09 SC scheduled for Fridays Ferrous Gluconate 324 mg PO BID Carvedilol 12.5 mg PO BID Isosorbide Mononitrate (Imdur) 30 MG PO QAM Venofer (Iron Sucrose) 200 mg/Sodium Chloride 110 mL @ 110 mLs/hr q48h IV Lactulose 15 mL daily PO PRN constipation Senna 1 tab PO QHS Tylenol 650 mg PO q4h PRN pain or fever Torsemide 30 mg PO BID Doxycycline (Vibramycin) 100 mg PO BID Gabapentin 300 mg PO TID Assessment/Plan: PROBLEMS: 1. Chronic kidney disease (CKD) stage IV: Renal function is stable and at baseline. Electrolytes stable. Creatinine stable and 2.32 today. Is status-post AV Fistula creation on L arm with Dr. Matthews on 07/06/18. Postprocedurally, is doing well. Will continue to monitor renal function. No urgent indication for hemodialysis today. Monitor volume status and adjust diuretics as necessary. Anticipate dialysis needs in future. Recommend dosing medications for GFR and avoidance of nephrotoxic medications. Recommended 1.5 liter fluid restriction. Patient not in any urgent need for beginning dialysis at this time. She will follow up with Nephrology for further management and is ok to be discharged from Nephrology standpoint. 2. Diastolic congestive heart failure: No clinical signs of decompensated HF at this point. Volume status acceptable. Edema in RLE improved. Continue with torsemide to 30 mg BID. Adjust diuretic therapy as necessary and will be continued on diuretics. No need for HD at this time from fluid volume status as of yet. 3. Anemia related to iron deficiency, chronic renal failure, inflammation from L BKA stump site: For iron deficiency, continue venofer and ferrous sulfate 325 mg PO BID. For anemia secondary to CKD, continue Aranesp 100 mcg qFridays. For inflammation, treat underlying cause. No transfusion needs as of yet. Hgb acceptable at 10.9. 4. Osteomyelitis of LLE and L Calcaneal Fracture status-post Below the Knee Amputation of LLE: Pain controlled at this time. Continue current pain regimen as per primary team. Doing well with PT/rehab. She does have L BKA stump site that is covered with dressing with hx of recent blister formation and drainage. Will defer management and the need for antibiotic therapy to primary team and Infectious Disease. On vibramycin. 5. Hypertension: Blood pressure acceptable today. Continue carvedilol 12.5 mg BID, Imdur 30 mg daily, and torsemide 30 mg BID. No changes made today in antihypertensive regimen. My preceptor for this patient encounter was Dr. Chantal Dong, and was physically present in the building during the encounter and was fully available. As needed, all aspects of the patient interview, examination, medical decision making process, and medical care plan development were reviewed and approved by the preceptor. Preceptor is aware and concurs with the plan as stated in the body of this note and will attest to such by his/her cosignature. A-FIB/CHADSVASC A-FIB History Current/History of A-Fib/PAF?: No Current Oral Anticoagulant The: No VS,Fishbone, I+O VS, Fishbone, I+O Laboratory Tests 07/13/18 06:19 Red Blood Count 3.58 L, Mean Corpuscular Volume 94.7, Mean Corpuscular Hemoglobin 30.4, Mean Corpuscular Hemoglobin Concent 32.2, Red Cell Distribution Width 16.4 H, Neutrophils (%) (Auto) 62.5, Lymphocytes (%) (Auto) 21.8 L, Monocytes (%) (Auto) 8.5 H, Eosinophils (%) (Auto) 6.3 H, Basophils (%) (Auto) 0.5, Neutrophils # (Auto) 4.6, Lymphocytes # (Auto) 1.6, Monocytes # (Auto) 0.6, Eosinophils # (Auto) 0.5, Basophils # (Auto) 0.0, Calcium Level 8.9 Vital Signs Date Time Temp Pulse Resp B/P (MAP) Pulse Ox O2 Delivery O2 Flow Rate FiO2 07/13/18 10:25 18 07/13/18 08:44 135/61 07/13/18 06:00 98.1 108 98 07/10/18 21:00 2.0 I&O- Last 24 Hours up to 6 AM 07/13/18 06:00 Intake Total 1020 ml Balance 1020 ml ANDREW LANGE DO July 13, 2018 11:15
[2018-07-13 14:00] VITALS: BP 141/68
[2018-07-13] MEDS ORDERED: GABA-843 PO (16:29)
[2018-07-13] MEDS ORDERED: ATOR1TAB21 PO (16:29)
[2018-07-13] MEDS ORDERED: INSUDET SC (16:29)
[2018-07-13] MEDS ORDERED: DOXY100T PO (16:29)
[2018-07-13] MEDS ORDERED: TORS10TA3 PO (16:29)
[2018-07-13] MEDS ORDERED: RISATAB3 PO (16:29)
[2018-07-13] MEDS ORDERED: FERR32TA PO (16:29)
[2018-07-13] MEDS ORDERED: CARV12.5 PO (16:29)
[2018-07-13] MEDS ORDERED: PANT40TA3 PO (16:29)
[2018-07-13] MEDS ORDERED: ISOS30TA4 PO (16:29)
[2018-07-13] MEDS ORDERED: MAG400TA PO (16:29)
[2018-07-13] MEDS ORDERED: PARO20TA3 PO (16:29)
[2018-07-13 20:00] VITALS: BP 144/63
[2018-07-13] MEDS: SENNA 8.6 MG TAB (SENOKOT) PO SCH (21:00)
[2018-07-13] MEDS: CYCLOBENZAPRINE 10 MG TAB PO SCH (21:47)
[2018-07-13] MEDS: ATORVASTATIN 20 MG TAB PO SCH (21:47)
--- NOTE | 2018-07-13 21:55 | IPN ---
DATE: 07/13/2018 This is a 67-year-old female with a past medical history significant for diabetes, chronic kidney disease, stage IV, hypertension, hyperlipidemia, who was initially admitted for a nonhealing lower extremity edema ulcer. Was found to have osteomyelitis and required [id number] amputation. Recovered well and is currently on rehabilitation. She was seen today. She is anxious to go home. She is waiting for a wheelchair that will fit through her bathroom door. She has had her home visit. Her only complaint today was some itchiness at her waistline, where she has healing areas from her Lovenox shots, and some dryness and itching in her upper-inner thighs. Blood pressure 135/61, pulse 100, temperature 98, oxygen saturation 98% on room air, respiratory 18. LABORATORY STUDIES: White count 7.3, hemoglobin and hematocrit 10.9/33.9, platelets 202. Electrolytes are normal. BUN is 57, creatinine 2.32. Magnesium was low at 1.5 on the . Has been started on by mouth magnesium oxide. Patient is alert and oriented times three. Pupils equal and reactive to light. Extraocular movements (EOMs) intact. Pharynx, tongue, gums pink and moist. Tongue is midline. Neck is supple without lymphadenopathy. No thyromegaly. No goiter. Chest clear to auscultation. Heart is regular. Abdomen benign. Bowel sounds positive. Upper-inner thighs slightly dry. Her vaginal/cristian area is slightly dry. No open areas, warmth, redness, or drainage. Extremities: Status post left below-knee amputation (BKA). Nemo are intact. Slightly reddened. Left upper extremity arteriovenous (AV) fistula palpable. Thrill is noted. Skin is arm and dry. ASSESSMENT AND PLAN: 1. Status post below-knee amputation, doing well. Dressing dry and intact. Nemo in place. 2. Antibiotic changed by Dr. Rodríguez from Keflex to doxycycline. 3. Peripheral vascular disease of extremity, chronic. 4. Osteomyelitis of foot, acute, resolved, status post below-knee amputation (BKA). 5. Diabetes. Continue fingerstick blood sugars before meals and at bedtime. Continue basal insulin, short-acting with meals. Diabetic diet. Diabetic education. 6. Diastolic congestive heart failure (CHF), stable. Well compensated at this time. Continue fluid restriction. 7. Deep vein thrombosis (DVT) prophylaxis with heparin. 8. Dry, chafed upper-inner thighs, cristian area. Will use Z-guard paste to upper-inner thighs/cristian area twice a day. 9. Benadryl cream as needed to itchiness at injection sites which are nonreddened, healing from heparin. 10. Continue medications, treatments, and therapy while awaiting wheelchair for 22 inches so patient can have a safe discharge.
[2018-07-14 06:00] VITALS: BP 121/57
[2018-07-14] MEDS: HEPARIN SOD (PORCINE) 5000 UNITS/ML VIAL SC SCH (06:36)
[2018-07-14 08:20] LABS: BASO # 0.1 10^3/uL (0.0-0.2); EOS # 0.5 10^3/uL (0.0-0.50); EOS % 7.5 % (0.0-3.0); HEMATOCRIT 33.2 % (36.0-47.0); HEMOGLOBIN 10.4 g/dl (12.0-15.5); LYMPH # 1.5 10^3/uL (1.5-4.5); LYMPH % 25.4 % (24.0-44.0); MEAN CORPUSCULAR HEMOGLOBIN 30.5 pg (27.0-33.0); MEAN CORPUSCULAR HGB CONC 31.3 g/dl (32.0-36.5); MEAN CORPUSCULAR VOLUME 97.4 fl (80.0-96.0); MONO # 0.6 10^3/uL (0.0-0.8); MONO % 9.8 % (0.0-5.0); NEUTROPHILS # 3.3 10^3/uL (1.8-7.7); NEUTROPHILS % 55.5 % (36.0-66.0); PLATELET COUNT, AUTOMATED 193 10^3/uL (150-450); RED BLOOD COUNT 3.41 10^6/uL (4.00-5.40)
[2018-07-14 08:37] LABS: C REACTIVE PROTEIN QUANTITATIV 1.6 MG/DL (0.00-0.30); CALCIUM LEVEL 8.7 MG/DL (8.8-10.2); CREATININE FOR GFR 2.37 MG/DL (0.55-1.30); GLOMERULAR FILTRATION RATE 21.9 (>45); POTASSIUM SERUM 4.1 MEQ/L (3.5-5.1)
[2018-07-14] MEDS: FERROUS GLUCONATE 324 MG TAB PO SCH (08:38)
[2018-07-14] MEDS: PANTOPRAZOLE 40MG TAB (PROTONIX) PO SCH (08:38)
[2018-07-14] MEDS: MULTIVITAMINS/MINERALS THERAP 1 TAB PO SCH (08:38)
[2018-07-14] MEDS: HumaLOG INSULIN (NovoLOG) PER UNIT SC SCH ×2 (08:38→12:00)
[2018-07-14] MEDS: TORSEMIDE 10 MG TABLET PO SCH (08:39)
[2018-07-14] MEDS: LACTOBACILLUS ACIDOPHILUS CAP (BACID) PO SCH (08:39)
[2018-07-14] MEDS: GABAPENTIN 300 MG CAP PO SCH (08:40)
[2018-07-14] MEDS: PARoxetine 20 MG TAB PO SCH (08:40)
[2018-07-14] MEDS: MAGNESIUM OXIDE 400 MG TAB (MAG-OX) PO SCH (08:40)
[2018-07-14] MEDS: LEVEMIR (INSULIN DETEMIR) 1 UNITS/0.01ML SC SCH (08:41)
[2018-07-14] MEDS: DOXYCYCLINE HYCLATE 100 MG TAB PO SCH (08:41)
[2018-07-14] MEDS: ISOSORBIDE MON. (IMDUR) 30 MG XR TAB PO SCH (08:41)
[2018-07-14] MEDS: ANALGESIC BALM CRM 120 GM TOP SCH (08:43)
[2018-07-14] MEDS: NYSTATIN 100,000 UNITS/GM TOPICAL PWD 15 GM TOP SCH (08:43)
[2018-07-14] MEDS: ACETAMINOPHEN 500 MG TAB PO SCH (08:43)
[2018-07-14 08:46] VITALS: BP 121/57
[2018-07-14] MEDS: DOCUSATE SODIUM 100 MG CAP PO SCH (08:46)
[2018-07-14] MEDS: CARVedilol 12.5 MG TAB PO SCH (08:46)
[2018-07-14] MEDS: oxyCODONE 5MG TAB PO PRN (11:41)
--- NOTE | 2018-08-10 18:55 | PMRDS ---
DATE OF ADMISSION: 06/28/2018 DATE OF DISCHARGE: 07/14/2018 CHIEF COMPLAINT/DISCHARGE DIAGNOSIS: Left below-knee amputation (BKA). HISTORY OF PRESENT ILLNESS: A 67-year-old female with poorly controlled diabetes, chronic kidney disease (CKD) stage IV followed by Dr. Dong, hyperlipidemia, hypertension who had a nonhealing left lower extremity lateral foot ulcer with calcaneal fracture with wound cultures positive for methicillin-sensitive Staphylococcus aureus (MSSA) with worsening symptoms and sent to [facility] ([facility]) Emergency Department (ED) on 06/16/2018 from her podiatry appointment for further workup. Foot MRI revealed "lateral soft tissue edema, there is adjacent edema within the bone marrow at the base of fifth metatarsal, acute osteomyelitis, a small focus of edema is present within the distal and lateral cuboid also suspicious for acute osteomyelitis." She was evaluated by infectious disease (ID) who recommended IV cephazolin and vascular surgery recommended below-knee amputation (BKA) procedure. Her diuretics were held due to worsening kidney function and she was followed by renal for acute kidney injury (BETTY) on chronic kidney disease (CKD) and for anemia of chronic disease, receiving Aranesp and Venofer. She underwent a BKA on 06/22/2018 without complication, was given gentle hydration postoperatively to treat her BETTY. The patient was taken off IV antibiotics, found to have blisters at her incision site, deemed to be noninfectious. She was placed back on oral diuretics, evaluated by therapy, found to have new deficits in gait and activities of daily living (ADLs), and deemed medically appropriate for discharge to acute rehabilitation unit on 06/28/2018. Upon arrival to acute rehabilitation unit, the patient reports she had suffered from blisters for many years and reports that is how all of her toes got infected and later amputated. She believes she has a sulfa sensitivity for which she has gotten rashes in the past and reports being on Lasix for years, although does not know if she has a Lasix allergy. PAST MEDICAL HISTORY: As per history of present illness (HPI). HOSPITAL COURSE: The patient was admitted and enrolled in a comprehensive physical therapy (PT), occupational therapy (OT) program. She received 24-hour nursing supervision and weekly team meetings were held to discuss her progress. The patient's skin was monitored multiple times a day. Her blisters gradually improved. She was started on Keflex for swelling, edema and concern for cellulitis of her below-knee amputation (BKA) and later switched to doxycycline with overall improvement in her swelling and cellulitis. For her diabetes, she was maintained on insulin and her pain was controlled oxycodone, Tylenol, Flexeril and gabapentin. Her renal function was stable throughout her hospital course and she was given iron for her anemia of chronic disease. She overall made quick improvements in therapy and was deemed functionally and medically stable to return home. DISCHARGE MEDICATIONS: - atorvastatin 40 at bedtime - carvedilol 12.5 by mouth twice a day - doxycycline 100 twice a day - ferrous gluconate 325 by mouth twice a day - gabapentin 300 three times a day - insulin 30 twice a day - isosorbide mononitrate 30 every 24 fours - magnesium 400 twice a day - Protonix 40 daily - paroxetine 40 daily - torsemide 30 twice a day FUNCTIONAL HISTORY: Upon discharge, the patient was minimum assist for ambulating eight feet in parallel bars maintaining nonweightbearing status and was modified-independent from a wheelchair level for mobility and activities of daily living (ADLs). Thank you for this referral.
== END 2018-07-14 12:40 | disposition home health service (06) | DRG 982 ==
LOC: M PM&R 16:00
PROVIDERS: ADMIT Physical Medicine & Rehabilitation; ATTEND Physical Medicine & Rehabilitation
PROC: 30233N1 Transfusion of Nonautologous Red Blood Cells into Peripheral Vein, Percutaneous Approach (ICD-10-PCS; principal; 2018-06-29)
PROC: 03180ZD Bypass Left Brachial Artery to Upper Arm Vein, Open Approach (ICD-10-PCS; 2018-07-06)
PROC: 051F0ZY Bypass Left Cephalic Vein to Upper Vein, Open Approach (ICD-10-PCS; 2018-07-06)
DX: Z47.81 Encounter for orthopedic aftercare following surgical amputation (principal); N18.4 Chronic kidney disease, stage 4 (severe); N17.9 Acute kidney failure, unspecified; I50.30 Unspecified diastolic (congestive) heart failure; I13.0 Hypertensive heart and chronic kidney disease with heart failure and stage 1 through stage 4 chronic kidney disease, or unspecified chronic kidney disease; M86.9 Osteomyelitis, unspecified; D63.1 Anemia in chronic kidney disease; E11.51 Type 2 diabetes mellitus with diabetic peripheral angiopathy without gangrene; Z89.512 Acquired absence of left leg below knee; E11.621 Type 2 diabetes mellitus with foot ulcer; E78.5 Hyperlipidemia, unspecified; K59.00 Constipation, unspecified; Z79.899 Other long term (current) drug therapy; Z79.4 Long term (current) use of insulin; Z88.2 Allergy status to sulfonamides; Z88.8 Allergy status to other drugs, medicaments and biological substances; E66.9 Obesity, unspecified; D50.9 Iron deficiency anemia, unspecified; E83.42 Hypomagnesemia; E87.70 Fluid overload, unspecified; B95.61 Methicillin susceptible Staphylococcus aureus infection as the cause of diseases classified elsewhere

== ENCOUNTER → 2018-07-21 | Outpatient (REF) | payer MEDICARE, MEDICAID ==
[~2018-07-21] MED LIST changes: +ATOR1TAB21 PO; +CARV12.5 PO; +DOXY100T PO; +FERR32TA PO; +INSUDET SC; +RISATAB3 PO; +TORS10TA3 PO
[2018-07-21 13:42] LABS: BASO # 0.1 10^3/uL (0.0-0.2); BASO % 1.1 % (0.0-1.0); EOS # 0.4 10^3/uL (0.0-0.50); EOS % 5.7 % (0.0-3.0); HEMATOCRIT 36.7 % (36.0-47.0); HEMOGLOBIN 11.6 g/dl (12.0-15.5); LYMPH # 1.4 10^3/uL (1.5-4.5); LYMPH % 21.6 % (24.0-44.0); MEAN CORPUSCULAR HEMOGLOBIN 30.6 pg (27.0-33.0); MEAN CORPUSCULAR HGB CONC 31.6 g/dl (32.0-36.5); MEAN CORPUSCULAR VOLUME 96.8 fl (80.0-96.0); MONO # 0.6 10^3/uL (0.0-0.8); MONO % 9.5 % (0.0-5.0); NEUTROPHILS # 4.1 10^3/uL (1.8-7.7); NEUTROPHILS % 61.8 % (36.0-66.0); PLATELET COUNT, AUTOMATED 219 10^3/uL (150-450); RED BLOOD COUNT 3.79 10^6/uL (4.00-5.40); WHITE BLOOD COUNT 6.6 10^3/uL (4.0-10.0)
== END ==
LOC: M LAB REF 13:19
PROVIDERS: ATTEND Internal Medicine Nephrology
DX: N18.4 Chronic kidney disease, stage 4 (severe) (principal); N39.0 Urinary tract infection, site not specified; N25.81 Secondary hyperparathyroidism of renal origin; E11.22 Type 2 diabetes mellitus with diabetic chronic kidney disease

== ENCOUNTER → 2018-07-29 | Outpatient (CLI) | payer MEDICARE, MEDICAID ==
[~2018-07-29] MED LIST changes: +BUPIVACAINE HCL 0.5% 10 ML VIAL As Ordered ONE; +ISOVUE-300 61% 50ML VIAL (Q9967) As Ordered ONE; +LIDOCAINE 2% MDV 20 ML VIAL As Ordered ONE; +MIDAZOLAM INJ 2 MG/2 ML VIAL (J2250) As Ordered ONE; +fentaNYL 100 MCG/2 ML INJECTION (J3010) As Ordered ONE
--- NOTE | 2018-09-01 13:24 | REPIR ---
DATE OF PROCEDURE: 07/29/2018 ATTENDING SURGEON: Leeanna Matthews MD ASSISTANTS: Cameron Matute and Helen Chavez PREOPERATIVE DIAGNOSES: Chronic renal insufficiency, dysfunctional left brachiocephalic arteriovenous fistula. POSTOPERATIVE DIAGNOSES: Chronic renal insufficiency, dysfunctional left brachiocephalic arteriovenous fistula. PROCEDURES: Left ultrasound-guided left cephalic vein cannulation, selective left brachial artery catheter placement with angiogram runoff, left cephalic vein angioplasty with 6 x 100 balloon, left brachial artery angioplasty with 6 x 100 balloon. INDICATION: The patient is a 67-year-old female who underwent creation of multiple fistulas in the past, which have all thrombosed. The patient recently underwent creation of a left brachiocephalic arteriovenous fistula, which initially had a strong thrill and now has started to feel less strong. The patient will undergo a fistulogram with possible angioplasty, stent, and/or atherectomy. ANESTHESIA: Local with 3 mL of 2% lidocaine mixed with 0.5% Marcaine. FLUORO TIME: 1.0 minutes. CONTRAST: 1 mL. HEPARIN: None. COMPLICATIONS: None. DRAINS: None. SPECIMENS: None. IMPLANTS: None. DESCRIPTION OF PROCEDURE: The patient was taken to the angiography suite, placed supine on the angiography room table and then prepped and draped in a standard surgical fashion. Ultrasound was used to guide cannulation of the left cephalic vein, and a catheter was placed in the brachial artery in retrograde fashion. Angiogram performed showing stenosis at the arteriovenous anastomosis. The arteriovenous anastomosis was angioplastied with a 6 x 100 balloon with a completion brachial artery angiogram showing resolution of stenosis and excellent flow into the radial artery, as well as distal in the brachial artery distal to the arteriovenous anastomosis. Catheters and wires removed. A 2-0 Prolene suture was placed at the puncture site for hemostasis. Dressings were then applied. The patient tolerated the procedure well. All instrument, sponge, and needle counts were correct at the end of the case. There were no complications. Dr. Matthews was present for and directed the entire case. The patient was transferred to the holding area and subsequently .
== END ==
LOC: M IRPRO 09:34
PROVIDERS: ATTEND Surgery Vascular Surgery
DX: N18.4 Chronic kidney disease, stage 4 (severe) (principal); T82.590A Other mechanical complication of surgically created arteriovenous fistula, initial encounter; E11.40 Type 2 diabetes mellitus with diabetic neuropathy, unspecified; E11.51 Type 2 diabetes mellitus with diabetic peripheral angiopathy without gangrene; I12.9 Hypertensive chronic kidney disease with stage 1 through stage 4 chronic kidney disease, or unspecified chronic kidney disease; E78.5 Hyperlipidemia, unspecified; I73.9 Peripheral vascular disease, unspecified; D64.9 Anemia, unspecified; X58.XXXA Exposure to other specified factors, initial encounter; Y93.9 Activity, unspecified; Y92.9 Unspecified place or not applicable; Y99.9 Unspecified external cause status
CPT/HCPCS: 36902; C1725; C1769; C1887; C1894; Q9967

== ENCOUNTER 2018-08-20 14:15 | Outpatient (RCR) | payer MEDICARE, MEDICAID ==
[~2018-08-20 14:15] MED LIST changes: -BUPIVACAINE HCL 0.5% 10 ML VIAL As Ordered ONE; -ISOVUE-300 61% 50ML VIAL (Q9967) As Ordered ONE; -LIDOCAINE 2% MDV 20 ML VIAL As Ordered ONE; -MIDAZOLAM INJ 2 MG/2 ML VIAL (J2250) As Ordered ONE; -fentaNYL 100 MCG/2 ML INJECTION (J3010) As Ordered ONE
== END 2018-08-22 ==
LOC: M PT 14:15
PROVIDERS: ATTEND Student in an Organized Health Care Education/Training Program
DX: Z89.512 Acquired absence of left leg below knee (principal)

== ENCOUNTER 2018-09-20 12:45 | Outpatient (RCR) | payer MEDICARE, MEDICAID | END 2018-09-22 | LOC: M PT 12:45 | PROVIDERS: ATTEND Student in an Organized Health Care Education/Training Program | DX: Z47.81 Encounter for orthopedic aftercare following surgical amputation (principal); Z89.512 Acquired absence of left leg below knee ==

== ENCOUNTER → 2018-09-21 | Outpatient (REF) | payer MEDICARE, MEDICAID | LOC: M LAB REF 13:04 | PROVIDERS: ATTEND Internal Medicine Nephrology | DX: N39.0 Urinary tract infection, site not specified (principal) ==

== ENCOUNTER → 2018-09-27 | Outpatient (REF) | payer MEDICARE, MEDICAID | LOC: M LAB REF 12:00 | PROVIDERS: ATTEND Physician Assistant | DX: S81.802D Unspecified open wound, left lower leg, subsequent encounter (principal); Z89.512 Acquired absence of left leg below knee ==

== ENCOUNTER 2018-10-18 13:00 | Outpatient (RCR) | payer MEDICARE, MEDICAID ==
[2018-10-26] MEDS ORDERED: ALLO100T PO (10:05)
== END 2018-10-23 ==
LOC: M PT 13:00
PROVIDERS: ATTEND Student in an Organized Health Care Education/Training Program
DX: Z47.81 Encounter for orthopedic aftercare following surgical amputation (principal); Z89.512 Acquired absence of left leg below knee

== ENCOUNTER → 2018-10-26 | Outpatient (CLI) | payer MEDICARE, MEDICAID ==
[~2018-10-26] MED LIST changes: +ALLO100T PO; +INSULANT SC; +RENA1TAB3 PO
[2018-10-26 09:56] VITALS: BP 137/63
== END ==
LOC: M IRPRO 09:43
PROVIDERS: ATTEND Surgery Vascular Surgery
DX: N18.6 End stage renal disease (principal); Z53.9 Procedure and treatment not carried out, unspecified reason

== ENCOUNTER → 2018-11-10 | Outpatient (REF) | payer MEDICARE, MEDICAID ==
[~2018-11-10] MED LIST changes: -INSULANT SC; -RENA1TAB3 PO
[2018-11-10 13:22] LABS: APPEARANCE, URINE CLEAR (CLEAR); BACTERIA, URINE AUTO NEGATIVE (NEGATIVE); BILIRUBIN, URINE AUTO NEGATIVE (NEGATIVE); BLOOD, URINE BLOOD 1+ (NEGATIVE); COLOR, URINE STRAW (YELLOW); GLUCOSE, URINE (UA) AUTO NEGATIVE (NEGATIVE); KETONE, URINE AUTO NEGATIVE (NEGATIVE); LEUKOCYTE ESTERASE, URINE AUTO NEGATIVE (NEGATIVE); MUCUS, URINE SMALL (NEGATIVE); NITRITE, URINE AUTO NEGATIVE (NEGATIVE); PROTEIN, URINE AUTO NEGATIVE (NEGATIVE); RBC, URINE AUTO 1 /HPF (0-3); SPECIFIC GRAVITY URINE AUTO 1.005 (1.002-1.035); SQUAMOUS EPITHELIAL CELL UR AU 3 /HPF (0-6); UROBILINOGEN, URINE AUTO 0.2 mg/dL (0.0-2.0); WBC, URINE AUTO 2 /HPF (0-3)
== END ==
LOC: M LAB REF 12:56
PROVIDERS: ATTEND Internal Medicine Nephrology
DX: N18.4 Chronic kidney disease, stage 4 (severe) (principal); N39.0 Urinary tract infection, site not specified; E11.22 Type 2 diabetes mellitus with diabetic chronic kidney disease
CPT/HCPCS: 15271; 81001; 87086; Q4128

== ENCOUNTER → 2018-11-23 | Outpatient (REF) | payer MEDICARE, MEDICAID | LOC: M LAB REF 17:17 | PROVIDERS: ATTEND Internal Medicine Nephrology | DX: N18.9 Chronic kidney disease, unspecified (principal); D63.1 Anemia in chronic kidney disease ==

== ENCOUNTER → 2018-12-28 | Outpatient (POV) | payer MEDICARE, MEDICAID ==
[~2018-12-28] VITALS: Ht 177.8 cm; Wt 123.2 kg
[2018-12-28 14:51] VITALS: BP 156/67
--- NOTE | 2018-12-29 10:18 | IRCOV ---
[facility] IR Consult Office Visit IR Consult Office Visit REASON FOR CONSULTATION/CHIEF COMPLAINT: Nonhealing ulcers on left BKA site. Referring service: Wound care HISTORY OF PRESENT ILLNESS: 68-year-old female with diabetes, hypertension, coronary artery disease and hypercholesterolemia presents with recurrent ulcers on left BKA site. Reports left lower extremity wounds for 6 years after which there was serial amputation of left lower extremity toes followed by below knee amputation. She is status post 3 toe amputations on the right lower extremity without any current right lower extremity wounds. Patient is unable to wear her prosthesis and unable to ambulate. Denies rest pain. Denies gangrene. Denies chest pain, shortness of breath, orthopnea or paroxysmal nocturnal dyspnea. She is an ex smoker stopped 16 years ago. She suffers with numbness and tingling in her lower extremities and she is on gabapentin for this. ALLERGIES: Please see below. HOME MEDICATIONS: Please see below. PAST MEDICAL HISTORY: Peripheral vascular disease Coronary artery disease Type 2 diabetes Diabetic neuropathy CHF CKD4 Hypertension Hyperlipidemia Fibromyalgia PAST SURGICAL HISTORY: Left BKA Right toe amputations Tonsillectomy Hysterectomy Right carpal tunnel Cholecystectomy Cardiac catheterizations Left thumb surgery Left AV fistula creation FAMILY HISTORY: Hypertension. SOCIAL HISTORY: Ex smoker. Denies alcohol or drugs. REVIEW OF SYSTEMS: Otherwise negative. PHYSICAL EXAMINATION: VITAL SIGNS: Please see below. GENERAL APPEARANCE: Appears well. Comfortable at rest. HEENT: No scleral icterus. RESPIRATORY: Symmetric breath sounds. CARDIOVASCULAR: Normal rate. ABDOMEN: Soft nontender. EXTREMITIES: Left lower extremity: Left BKA. Skin warm femoral pulse + Right lower extremity: 3 toe amputated. skin appears mottled. warm to touch. No wounds. No gangrene. Fem pulse + popliteal pulse + DP/PT negative. NEUROLOGICAL: Alert and oriented. PSYCHIATRIC: Appropriate to circumstance. LABORATORY DATA: 07/21/2018 hemoglobin 11.6 hematocrit 36.7 WBC 6.6 platelets 219 07/14/2018 sodium 139 potassium 4.1 BU and 59 creatinine 2.37 GFR 21.9 Imaging: None. ASSESSMENT/PLAN: 8-year-old female with BKA, coronary artery disease, ex-smoker, diabetic presents with recurrent ulcers over the left BKA site. I agree evaluation of her left lower extremity arteries is indicated with/without intervention as appropriate. I will schedule the patient for angiogram +/ same day intervention to be done under moderate sedation. I spent 30 minutes in consultation with the patient. Thank you for this referral. Allergies Coded Allergies: TAPE (Verified Allergy, Intermediate, RASH, 05/19/18) citric acid (Verified Allergy, Intermediate, HIVES/ITCHING, 05/19/18) sodium bicarbonate (Verified Allergy, Intermediate, HIVES/ITCHING, 04/24 09/10) Sulfa (Sulfonamide Antibiotics) (Verified Allergy, Mild, 06/28/18) rash hydrocodone (Verified Allergy, Mild, ITCHES, 05/19/18) Home Medications Scheduled Allopurinol (Allopurinol), 2 TAB PO DAILY, (Reported) Atorvastatin Calcium (Atorvastatin Calcium), 40 MG PO QHS, (Reported) Carvedilol (Coreg), 12.5 MG PO BID, (Reported) Ferrous Gluconate (Ferrous Gluconate), 324 MG PO BID Gabapentin (Gabapentin), 300 MG PO TID Insulin Detemir (Levemir), 30 UNITS SC BID Insulin Glargine,Hum.rec.anlog (Lantus Solostar), 30 UNIT SC BID, (Reported) Isosorbide Mononitrate (Isosorbide Mononitrate ER), 30 MG PO DAILY, (Reported) Magnesium Oxide (Magnesium Oxide), 400 MG PO BID Paroxetine HCl (Paroxetine HCl), 40 MG PO DAILY Torsemide (Torsemide), 20 MG PO BID@0900,1700 Scheduled PRN Acetaminophen (Acetaminophen), 650 MG PO Q6H PRN for PAIN, (Reported) VS, I&O, 24H, Fishbone Vital Signs/I&O Vital Signs Date Time Temp Pulse Resp B/P (MAP) Pulse Ox O2 Delivery O2 Flow Rate FiO2 12/28/18 14:51 98.5 72 16 156/67 (96) 98 Room Air JESSICA ORR MD Dec 29, 2018 10:18
== END ==
LOC: M IRPOV 14:39
PROVIDERS: ATTEND Radiology Diagnostic Radiology
DX: T87.81 Dehiscence of amputation stump (principal); I12.9 Hypertensive chronic kidney disease with stage 1 through stage 4 chronic kidney disease, or unspecified chronic kidney disease; E11.22 Type 2 diabetes mellitus with diabetic chronic kidney disease; E11.40 Type 2 diabetes mellitus with diabetic neuropathy, unspecified; I25.10 Atherosclerotic heart disease of native coronary artery without angina pectoris; E78.00 Pure hypercholesterolemia, unspecified; I73.9 Peripheral vascular disease, unspecified; I50.9 Heart failure, unspecified; N18.4 Chronic kidney disease, stage 4 (severe); M79.7 Fibromyalgia; Z89.512 Acquired absence of left leg below knee; Z89.421 Acquired absence of other right toe(s); Z87.891 Personal history of nicotine dependence

== ENCOUNTER → 2019-01-06 | Outpatient (CLI) | payer MEDICARE ==
[~2019-01-06] MED LIST changes: +INSULANT SC; +RENA1TAB3 PO
[2019-01-06 11:29] LABS: HEMOGLOBIN A1c 8.5 %
[2019-01-06 13:04] LABS: ALBUMIN 3.3 GM/DL (3.2-5.2); BILIRUBIN,TOTAL 0.6 MG/DL (0.2-1.0); CALCIUM LEVEL 8.9 MG/DL (8.8-10.2); CHOLESTEROL RISK RATIO 3.343 (<5); CREATININE FOR GFR 2.33 MG/DL (0.55-1.30); GLOMERULAR FILTRATION RATE 22.2 (>45); POTASSIUM SERUM 4.4 MEQ/L (3.5-5.1); TOTAL PROTEIN 6.9 GM/DL (6.4-8.2)
== END ==
LOC: M LAB 09:27
PROVIDERS: ATTEND Family Medicine
DX: E11.65 Type 2 diabetes mellitus with hyperglycemia (principal); E11.22 Type 2 diabetes mellitus with diabetic chronic kidney disease; N18.4 Chronic kidney disease, stage 4 (severe); E78.2 Mixed hyperlipidemia

== ENCOUNTER 2019-01-10 13:40 | Outpatient (CLI) | payer MEDICARE, MEDICAID ==
[2019-01-10] VITALS (9 sets, daily range): BP systolic 142–160; BP diastolic 56–66
[~2019-01-10] VITALS: Ht 177.8 cm; Wt 115.5 kg
[2019-01-10] MEDS ORDERED: fentaNYL 100 MCG/2 ML INJECTION (J3010) As Ordered ONE (16:14)
[2019-01-10] MEDS ORDERED: diphenhydrAMINE INJ 50MG/ML VIAL (J1200) As Ordered ONE (16:14)
[2019-01-10] MEDS ORDERED: LIDOCAINE 1% MDV 20ML VIAL As Ordered ONE (16:15)
[2019-01-10] MEDS ORDERED: ISOVUE-300 61% 50ML VIAL (Q9967) As Ordered ONE ×2 (16:15→16:33)
[2019-01-10] MEDS ORDERED: MIDAZOLAM INJ 2 MG/2 ML VIAL (J2250) As Ordered ONE (16:15)
[2019-01-10] MEDS ORDERED: HEPARIN 1,000 UNITS/ML 10ML VIAL (FOR RADIOLOGY& DIALYSIS ONLY) As Ordered ONE (16:21)
[2019-01-10] MEDS ORDERED: LIDOCAINE 4% CREAM 5GM (LMX4) As Ordered ONE (16:35)
--- NOTE | 2019-01-10 17:11 | POST-OPPD ---
Postoperative Procedure Note Date Of Procedure: Jan 10, 2019 Time Of Procedure: 17:08 PREOPERATIVE DIAGNOSIS: AD POSTOPERATIVE DIAGNOSIS: PAD FINDINGS: left leg angio- patent SFA, Profunda, popliteal artery PROCEDURE: left leg angiogram SURGEON: margo ANESTHESIA: mod sed ESTIMATED BLOOD LOSS: < 5 ml COMPLICATIONS: none POSTOPERATIVE CONDITION: stable JESSICA ORR MD Jan 10, 2019 17:11
[2019-01-10] MEDS ORDERED: PERCOCET 5MG/325MG TAB PO PRN (19:15)
[2019-01-10] MEDS ORDERED: ACETAMINOPHEN TAB 650MG DOSE (2X325MG) PO PRN (19:15)
[2019-01-10] MEDS ORDERED: ONDANSETRON 4MG/2ML VIAL (J2405) IV PRN (19:30)
[2019-01-10] MEDS: NS 1,000 ML IV SCH (20:00)
[2019-01-10] MEDS ORDERED: GLUCOSE 4 GM CHEW TABLET PO PRN (20:00)
[2019-01-10] MEDS ORDERED: GLUCAGON FOR INJ 1 MG VIAL (J1610) SC PRN (20:00)
[2019-01-10] MEDS ORDERED: DEXTROSE 50% 50 ML SYRINGE IV PRN (20:00)
[2019-01-10] MEDS ORDERED: CARVedilol 12.5 MG TAB PO SCH (21:00)
[2019-01-10] MEDS ORDERED: HumaLOG INSULIN (NovoLOG) PER UNIT SC SCH (21:00)
[2019-01-10] MEDS ORDERED: GABAPENTIN 300 MG CAP PO SCH (21:00)
[2019-01-10] MEDS: CARVedilol 12.5 MG TAB PO SCH (22:10)
[2019-01-10] MEDS: HYDROMORPHONE HCL 0.5 MG/ 0.5 ML SYRINGE (J1170 PER 1) IV PRN (22:19)
[2019-01-11] MEDS: HYDROMORPHONE HCL 0.5 MG/ 0.5 ML SYRINGE (J1170 PER 1) IV PRN (01:54)
[2019-01-11 06:00] VITALS: BP 152/60
[2019-01-11] MEDS ORDERED: HumaLOG INSULIN (NovoLOG) PER UNIT SC SCH (07:30)
[2019-01-11] MEDS: CARVedilol 12.5 MG TAB PO SCH (09:00)
[2019-01-11] MEDS: NS 1,000 ML IV SCH (09:20)
--- NOTE | 2019-01-11 10:24 | REP ---
IR Left leg angiogram. IR Selective left iliac artery catheterization. IR Selective left common femoral artery catheterization. IR moderate sedation. Clinical Information: Non healing wounds on left below knee amputation site. Physician: Dr Glass.Procedure: The patient was advised of the benefits, risks, and alternatives of the procedure and informed consent was obtained.A time out was performed with verification of the patient's name, MRN, site of procedure, and type of procedure to be performed. The patient was positioned in the supine position on the angiographic table. The site was prepped and draped in the usual sterile fashion.Moderate sedation was performed by the physician including the presence of an independent trained observer who assisted in monitoring the patient's level of consciousness and physiological status. Following the administration of Fentanyl and Versed, the physician spent 60 minutes of continuous [id number] time with the patient. A jack strip assembler radiograph reveals no gross abnormality. The right femoral artery was accessed with a micropuncture kit. A Propable wire was advanced into the aorta. The micropuncture sheath was exchanged over the wire for a a 6-[place] vascular sheath. A 4-[place] flush catheter was advanced over the wire and used to catheterize the abdominal aorta. A pelvic arteriogram was performed. This demonstrates patent left common iliac, external iliac and internal iliac arteries. A Glidewire was advanced through the flush catheter and under fluoroscopy guidance was used to gain up and over access into the left common iliac artery. The flush catheter was exchanged over the wire for a glide cath. The glide cath in conjunction with a Glidewire was used to catheterize the left common femoral artery. A left leg angiogram was performed from this location. This demonstrates patent left common femoral artery, superficial femoral artery, profunda femoris. An angiogram further down the leg was performed and this demonstrates patent mid and distal superficial femoral artery and patent popliteal artery. A below-knee runoff arteriogram was performed and this demonstrates three large vessels supplying the amputation site along with collaterals from the geniculate. Good vascular blush at the stump site. The catheter was removed. A 6-[place] Mynx device was used to close the groin arteriotomy and the sheath was removed. Hemostasis achieved. A sterile dressing was applied to the site. Patient tolerated the procedure well and was transferred to PRU in stable condition. Complications: None. Estimated blood loss: Less than 5 ml. Impression: 1. Left leg angiogram demonstrates patent inflow and outflow. No significant stenosis. 2. Below-knee runoff demonstrates three large vessels arising off the popliteal artery serving the stump site along with collateralization from geniculate branches. No further arterial intervention required at this time. Thank you for this referral. Electronically Signed by Josie Glass MD 01/11/2019 10:23 A
== END 2019-01-11 11:24 | disposition home or self-care (01) ==
LOC: M IRPRO 13:40 → M MSPAV 18:51 → M IRPRO 01-11 11:24
PROVIDERS: ATTEND Radiology Diagnostic Radiology
DX: T87.89 Other complications of amputation stump (principal)
CPT/HCPCS: 36246; 75710; 99152; 99153; C1760; C1769; C1887; C1894; G0269; J1170; J2250; J3010; Q9967

== ENCOUNTER → 2019-04-12 | Outpatient (REF) | payer MEDICARE ==
[~2019-04-12] MED LIST changes: +AMOX500T2 PO; +GENT0.1C2 TOP; +K-TA10TA2 PO; +PARO20TA4 PO; +PERCTAB2 PO; +TORS100T PO
== END ==
LOC: M LAB REF 15:22
PROVIDERS: ATTEND Podiatrist
DX: M79.671 Pain in right foot (principal); L03.031 Cellulitis of right toe

== ENCOUNTER 2019-04-15 11:40 | Inpatient (IN) | payer MEDICARE ==
[~2019-04-15] VITALS: Ht 177.8 cm; Wt 119.6 kg
[~2019-04-15 11:40] MED LIST changes: -AMOX500T2 PO; -GENT0.1C2 TOP; -K-TA10TA2 PO; -PARO20TA4 PO; -PERCTAB2 PO; -TORS100T PO
[2019-04-15] MEDS ORDERED: INSULANT SC ×2 (13:17→14:32)
[2019-04-15] MEDS ORDERED: GENT0.1C2 TOP (13:17)
[2019-04-15] MEDS ORDERED: LANTINJ4 SC (13:17)
[2019-04-15] MEDS ORDERED: AMOX500T2 PO (13:17)
--- NOTE | 2019-04-15 13:23 | REP ---
Clinical: Right lower extremity pain and swelling . Technique: Huber scale and color Doppler evaluation using linear high frequency transducer. Findings: Ultrasound examination of the right lower extremity deep venous structures from the common femoral vein to the popliteal vein demonstrates normal compressibility flow and wave patterns in response to respiration and augmentation. There is no evidence for deep venous thrombosis. Incidental inguinal lymph node measures 3.2 x 1.4 cm. Impression: No evidence for deep venous thrombosis. Electronically Signed by Isra Ortiz MD 04/15/2019 01:15 P
[2019-04-15] MEDS ORDERED: PERCTAB2 PO (14:32)
[2019-04-15] MEDS ORDERED: INSUHUMDS SC (14:32)
[2019-04-15] MEDS ORDERED: K-TA10TA2 PO (14:32)
[2019-04-15] MEDS ORDERED: GABA-843 PO (14:32)
[2019-04-15] MEDS ORDERED: RENATAB5 PO (14:32)
[2019-04-15] MEDS ORDERED: SPIR-10 PO (14:32)
[2019-04-15] MEDS ORDERED: FERR32TA PO (14:32)
[2019-04-15] MEDS ORDERED: PARO20TA4 PO (14:32)
[2019-04-15] MEDS ORDERED: TORS100T PO (14:32)
[2019-04-15 14:36] LABS: BASO % 0.2 % (0.0-1.0); EOS # 0.3 10^3/uL (0.0-0.5); EOS % 2.5 % (0.0-3.0); HEMATOCRIT 33.4 % (36.0-47.0); HEMOGLOBIN 10.6 g/dl (12.0-15.5); LYMPH # 1.6 10^3/uL (1.5-5.0); LYMPH % 12.2 % (24.0-44.0); MEAN CORPUSCULAR HEMOGLOBIN 30.8 pg (27.0-33.0); MEAN CORPUSCULAR HGB CONC 31.7 g/dl (32.0-36.5); MEAN CORPUSCULAR VOLUME 97.1 fl (80.0-96.0); MONO # 0.8 10^3/uL (0.0-0.8); NEUTROPHILS % 78.4 % (36.0-66.0); PLATELET COUNT, AUTOMATED 202 10^3/uL (150-450); RED BLOOD COUNT 3.44 10^6/uL (4.00-5.40); WHITE BLOOD COUNT 12.7 10^3/uL (4.0-10.0)
[2019-04-15 15:05] LABS: ERYTHROCYTE SEDIMENTATION RATE 107 mm/hr (0-30)
[2019-04-15 15:06] LABS: ALBUMIN 3.1 GM/DL (3.2-5.2); BILIRUBIN,TOTAL 0.7 MG/DL (0.2-1.0); C REACTIVE PROTEIN QUANTITATIV 11.7 MG/DL (0.00-0.30); CALCIUM LEVEL 9.2 MG/DL (8.8-10.2); CREATININE FOR GFR 2.2 MG/DL (0.55-1.30); GLOMERULAR FILTRATION RATE 23.8 (>45); POTASSIUM SERUM 4.3 MEQ/L (3.5-5.1); TOTAL PROTEIN 6.7 GM/DL (6.4-8.2)
[2019-04-15] MEDS ORDERED: VANCOMYCIN HCL 2,000 MG in D5W 500 ML IV ONE (15:30)
--- NOTE | 2019-04-15 16:00 | REP ---
Clinical: Nonhealing wound. Technique: AP, lateral, bilateral oblique views of the right foot. Comparison: 01/10/2013. Findings: Evidence for prior partial amputations at the second, third, and fifth metatarsal level. Underlying osteopenia and degenerative changes are appreciated and appear essentially stable compared to 2013. No obvious acute periosteal reaction is identified. Overlying soft tissue swelling noted. Impression: The osseous structures appear relatively similar to 2013 and without significant periosteal reaction to suggest osteomyelitis by radiographic evaluation. Electronically Signed by Isra Ortiz MD 04/15/2019 03:52 P
[2019-04-15] MEDS: VANCOMYCIN HCL 1,000 MG, VIAL MATE ADAPTER 1 EACH in D5W 250 ML IV SCH ×2 (16:29→17:54)
--- NOTE | 2019-04-15 17:11 | HPEPDOC ---
General Date of Admission 04/15/19 Date of Service: Apr 15, 2019 Chief Complaint The patient is a 68-year-old female admitted with a reason for diabetic foot ulcer History of Present Illness 68 year old female presents with R foot ulcer. [facility] saw her perforator operator oil well on Thursday, had X rays done and cultures, told to come to the ED if symptoms worsened. Presents today with drainage noted to 4th digit on R with erythema extending up into RLE. States had a low grade fever of 100. Started on IV vanco mycin, podiatry Dr. Calixto consulted for management. Home Medications Scheduled Allopurinol (Allopurinol) 100 Mg Tablet, 200 MG PO DAILY, (Reported) patient has not filled in over a year Amoxicillin/Potassium Clav (Amox-Clav 500-125 mg Tablet) 1 Each Tablet, 1 TAB PO BID, (Reported) started 04/12/19 for 10 days Aspirin (Aspirin EC) 81 Mg Tablet.dr, 81 MG PO DAILY, (Reported) Atorvastatin Calcium (Atorvastatin Calcium) 40 Mg Tab, 40 MG PO QHS, (Reported) Calcitriol (Calcitriol) 0.25 Mcg Capsule, 0.25 MCG PO DAILY, (Reported) Carvedilol (Coreg) 12.5 Mg Tab, 12.5 MG PO BID, (Reported) Ferrous Gluconate (Ferrous Gluconate) 324 Mg Tablet, 324 MG PO BID, (Reported) Folic Acid/Vit B Complex and C (Sofia-Nicolas Tablet) 0.8 Mg Tablet, 1 TAB PO DAILY, (Reported) Gabapentin (Gabapentin) 300 Mg Capsule, 300 MG PO TID, (Reported) Gentamicin Sulfate (Gentamicin Sulfate) 30 Gm Cream..g., 1 DOSE TOP BID, (Reported) APPLIED TO ULCER ON TOE Insulin Glargine (Lantus) 100 Unit/1 Ml Vial, 50 UNITS SC QAM, (Reported) Insulin Glargine (Lantus) 100 Unit/1 Ml Vial, 30 UNITS SC QHS, (Reported) Insulin Human Lispro (Humalog) 100 Unit/1 Ml Vial, 1 DOSE SC AC, (Reported) PER SLIDING SCALE Paroxetine HCl (Paroxetine) 20 Mg Tablet, 40 MG PO DAILY, (Reported) Potassium Chloride (K-Tab ER) Unknown Strength Tablet.er, Unknown Dose PO DAILY, (Reported) PATIENT HAS NOT FILLED SINCE 2017 Spironolactone (Spironolactone) 25 Mg Tablet, 25 MG PO DAILY, (Reported) Torsemide (Torsemide) 100 Mg Tablet, 100 MG PO DAILY, (Reported) PATIENT HAS NOT FILLED IN OVER A YEAR Scheduled PRN Acetaminophen/Diphenhydramine (Percogesic Extra Str Caplet) 1 Each Tablet, 1 TAB PO QHS PRN for SLEEP, (Reported) Allergies Coded Allergies: TAPE (Verified Allergy, Intermediate, RASH, 05/19/18) citric acid (Verified Allergy, Intermediate, HIVES/ITCHING, 05/19/18) sodium bicarbonate (Verified Allergy, Intermediate, HIVES/ITCHING, 05/19/18) Sulfa (Sulfonamide Antibiotics) (Verified Allergy, Mild, 06/28/18) rash hydrocodone (Verified Allergy, Mild, ITCHES, 05/19/18) Past Medical History Medical History DM2, HTN, CKD, HLD, neuropathy Surgical History right 2nd, 3rd, 5th toe amputations, L BKA, hysterectomy, cholecystectomy, partial appendectomy. Family History Significant Family History: No pertinent family hx Social History * Smoker: Denies Alcohol: Denies Drugs: denies A-FIB/CHADSVASC A-FIB History Current/History of A-Fib/PAF?: No Review of Systems Constitutional: Denies: Chills, Fever, Night Sweats Eyes: Denies: Pain, Vision change ENT: Denies: Head Aches, Ear Pain, Dysphagia Skin: Denies: Rash, Lesions, Breakdown Pulmonary: Denies: Dyspnea, Cough Cardiovascular: Denies: Chest Pain, Palpitations, Orthopnea, Paroxysmal Noc. Dyspnea, Lt Headedness Gastrointestinal: Denies: Nausea, Vomiting, Abdominal Pain, Diarrhea Genitourinary: Denies: Dysuria, Frequency, Incontinence, Retention Hematologic: Denies: Bruising, Bleeding Excessively Musculoskeletal: Denies: Neck Pain, Back Pain, Joint Pain, Muscle Pain, Spasms Neurological: Denies: Weakness, Numbness, Change in speech, Confusion Psych: Reports: Mood Normal; Denies: Depression, Memory Issues Physical Examination General Exam: Positive: Alert, No Acute Distress Eye Exam: Positive: PERRLA, Conjunctiva & lids normal, EOMI; Negative: Sclera icteric ENT Exam: Positive: Atraumatic, Mucous membr. moist/pink, Pharynx Normal Neck Exam: Positive: Supple; Negative: JVD, thyromegaly Chest Exam: Positive: Clear to auscultation, Normal air movement Heart Exam: Positive: Rate Normal, Regular Rhythm, Normal S1, Normal S2; Negative: Murmurs, Rubs Telemetry: Positive: No significant arrhythmia Abdomen Exam: Positive: Normal bowel sounds, Soft; Negative: Tenderness, Hepatospenomegaly Extremity Exam: Positive: Normal pulses, Other (R BKA); Negative: Clubbing, Cyanosis, Edema Skin Exam: Positive: Nl turgor and temperature, Other skin issue (L 4th digit ulceration, serous drainage, erythema extending from below knee to ankle with swelling. ); Negative: Breakdown, Lesion Neuro Exam: Positive: Normal Gait, Normal Speech, Cranial Nerves 3-12 NL, Reflexes 2+ Psych Exam: Positive: Mental status NL, Mood NL, Oriented x 3 Vital Signs Vital Signs Date Time Temp Pulse Resp B/P (MAP) Pulse Ox O2 Delivery O2 Flow Rate FiO2 04/15/19 15:51 98.2 68 17 124/59 (80) 99 Room Air Laboratory Data Labs 24H Laboratory Tests 2 04/15/19 14:21: Immature Granulocyte % (Auto) 0.7, Neutrophils (%) (Auto) 78.4H, Lymphocytes (%) (Auto) 12.2L, Monocytes (%) (Auto) 6.0H, Eosinophils (%) (Auto) 2.5, Basophils (%) (Auto) 0.2, Neutrophils # (Auto) 10.0H, Lymphocytes # (Auto) 1.6, Monocytes # (Auto) 0.8, Eosinophils # (Auto) 0.3, Basophils # (Auto) 0.0, Nucleated Red Blood Cells % (auto) 0.0, Erythrocyte Sedimentation Rate 107H, Anion Gap 5L, Glomerular Filtration Rate 23.8L, Calcium Level 9.2, Total Bilirubin 0.7, Aspartate Amino Transf (AST/SGOT) 24, Alanine Aminotransferase (ALT/SGPT) 24, Alkaline Phosphatase 122H, C-Reactive Protein, Quantitative 11.70H, Total Protein 6.7, Albumin 3.1L, Albumin/Globulin Ratio 0.86L 04/15/19 15:37: Bedside Glucose (Misc Panel) 78L CBC/BMP Laboratory Tests 04/15/19 14:21 Microbiology Microbiology 04/15/19 Blood Culture, Received Pending 04/15/19 Blood Culture, Received Pending Assessment/Plan 1. R 4th toe infected ulcer with RLE cellulitis - consult to podiatry Dr. Contreras. - IV vancomycin. - wound cultures done on Thursday, will repeat. - local wound care, dressing changes. - US negative for DVT, X ray negative. 2. CKD - SCr appears at baseline. - monitor for now. 3. DM2 - FSBS, SSI coverage. 4. HLD - continue statin. Plan / VTE VTE Prophylaxis Ordered?: Yes LINA MCDANIEL MD Apr 15, 2019 17:11
[2019-04-15] MEDS ORDERED: GLUCOSE 4 GM CHEW TABLET PO PRN (17:30)
[2019-04-15] MEDS ORDERED: DEXTROSE 50% 50 ML SYRINGE IV PRN (17:30)
[2019-04-15] MEDS ORDERED: VANCOMYCIN HCL 1,500 MG in IV FLUID PLACE HOLDER 1 EA IV SCH (17:30)
[2019-04-15] MEDS ORDERED: GLUCAGON FOR INJ 1 MG VIAL (J1610) SC PRN (17:30)
[2019-04-15] MEDS: HumaLOG INSULIN (NovoLOG) PER UNIT SC SCH (18:01)
--- NOTE | 2019-04-15 18:57 | PHACANCOPD ---
PHARMACY VANCOMYCIN DOSING Pt Demographics Demographics Patient Age:68 , Weight:115.450 , Gender: female Adjusted Body Weight Date: 04/15/19, Adjusted Body Weight: Kg Events Past 24 Hours Events Past 24 Hours: NO: Dialysis, Diuretic Therapy, Change in CrCl, Fever, Elevation in WBC, Pending Diagnostics, Pending Procedures, Other Vancomycin Vancomycin indication: CELLULITIS Vancomycin Target Ranges: 10-20 mcg/ml Vancomycin Load Y/N: Yes Load Dose Date Time Vancomycin Load Dose: 2G Date: 04/15/19 Time: 1600 Vancomycin Dose Date: 04/15/19. Current Vancomycin Dose: [1G Q24H] Intermittent Dosing?: No Labs Labs Vital Signs Label Value Date Time Patient Temperature 98.2 degrees F 04/15/19 1551 Item Value Date Time White Blood Count 12.7 10^3/uL H 04/15/19 1421 Creatinine 2.20 MG/DL H 04/15/19 1421 Micro Microbiology 04/15/19 Blood Culture, Received Pending 04/15/19 Blood Culture, Received Pending Creatinine Clearance Date:04/15/19. Creatinine Clearance: [34.7 ML/MIN]. Assessment and Plan Maintaining Current Dose?: Yes Reason for dose change: No Dose Change Pharmacist Note Pharmacist Note Date: 04/15/19. Pharmacist note: The patient presented with cellulitis around an infected foot ulcer. We have treated this patient with Vancomycin in the past. She was afebrile upon admission and had an elevated WBC count. SrCr=2.20 and CrCl (using adjusted body weight)=34.7ml/min. A loading dose of 2g was given in the ED at 1600 and a maintenance dose of 1G Q24H was calculated and scheduled to start 04/16/19 @1800. We will continue to monitor and dose adjust as necessary. VALERIO ZAZUETA, PHARMACY Apr 15, 2019 18:51
[2019-04-15 21:16] VITALS: BP 130/72
[2019-04-15] MEDS: GABAPENTIN 300 MG CAP PO SCH (21:51)
[2019-04-15] MEDS: FERROUS GLUCONATE 324 MG TAB PO SCH (21:51)
[2019-04-15] MEDS: ATORVASTATIN 20 MG TAB PO SCH (21:51)
[2019-04-15] MEDS: CARVedilol 12.5 MG TAB PO SCH (21:52)
[2019-04-15] MEDS: LEVEMIR (INSULIN DETEMIR) 1 UNITS/0.01ML SC SCH (21:52)
[2019-04-15] MEDS: GENTAMICIN SULFATE 0.1% OINT 15 GM TOP SCH (21:52)
[2019-04-16 05:34] VITALS: BP 140/73
[2019-04-16] MEDS: HumaLOG INSULIN (NovoLOG) PER UNIT SC SCH ×3 (07:30→18:09)
[2019-04-16 08:38] LABS: ALBUMIN 2.8 GM/DL (3.2-5.2); BILIRUBIN,TOTAL 0.5 MG/DL (0.2-1.0); CALCIUM LEVEL 8.7 MG/DL (8.8-10.2); CREATININE FOR GFR 2.17 MG/DL (0.55-1.30); GLOMERULAR FILTRATION RATE 24.2 (>45); POTASSIUM SERUM 3.7 MEQ/L (3.5-5.1); TOTAL PROTEIN 6.1 GM/DL (6.4-8.2)
[2019-04-16] MEDS ORDERED: LEVEMIR (INSULIN DETEMIR) 1 UNITS/0.01ML SC SCH (09:00)
[2019-04-16] MEDS: CALCITRIOL 0.25 MCG CAP (S0169) PO SCH (09:25)
[2019-04-16] MEDS: FERROUS GLUCONATE 324 MG TAB PO SCH ×2 (09:25→21:53)
[2019-04-16] MEDS: PARoxetine 20 MG TAB PO SCH (09:25)
[2019-04-16] MEDS: ASPIRIN 81 MG ENTERIC TAB PO SCH (09:25)
[2019-04-16] MEDS: SPIRONOLACTONE 25 MG TAB PO SCH (09:25)
[2019-04-16] MEDS: GABAPENTIN 300 MG CAP PO SCH ×3 (09:25→21:51)
[2019-04-16] MEDS: CARVedilol 12.5 MG TAB PO SCH ×2 (09:26→21:51)
--- NOTE | 2019-04-16 09:45 | IPNPDOC ---
Subjective Date Seen The patient was seen on 04/16/19. Subjective Chief Complaint/HPI slightly nauseated yesterday and this am, associated with low glucose level. otherwise feels ok. Constitutional: Denies: Chills Eyes: Denies: Vision change ENT: Denies: Head Aches, Dysphagia Skin: Reports: Other (some swelling and redness right de león. drainage at right 4th toe, lateral); Denies: Rash Pulmonary: Denies: Dyspnea, Cough Cardiovascular: Denies: Chest Pain, Palpitations Gastrointestinal: Denies: Vomiting, Abdominal Pain Genitourinary: Denies: Dysuria Hematologic: Denies: Bruising Endocrine: Denies: Polydipsia, Polyuria Musculoskeletal: Denies: Neck Pain, Back Pain Neurological: Denies: Weakness, Change in speech Psych: Reports: Mood Normal Objective Physical Examination General Exam: Positive: Alert, No Acute Distress Eye Exam: Positive: PERRLA, Conjunctiva & lids normal, EOMI; Negative: Sclera icteric ENT Exam: Positive: Atraumatic, Mucous membr. moist/pink, Pharynx Normal Neck Exam: Positive: Supple; Negative: JVD, thyromegaly Chest Exam: Positive: Clear to auscultation, Normal air movement Heart Exam: Positive: Rate Normal, Regular Rhythm, Normal S1, Normal S2; Negative: Murmurs, Rubs Telemetry: Positive: No significant arrhythmia Abdomen Exam: Positive: Normal bowel sounds, Soft; Negative: Tenderness, Hepatospenomegaly Extremity Exam: Positive: Normal pulses, Other (R BKA); Negative: Clubbing, Cyanosis, Edema Skin Exam: Positive: Nl turgor and temperature, Other skin issue (L 4th digit ulceration, serous drainage, erythema extending from below knee to ankle with s welling. ); Negative: Breakdown, Lesion Neuro Exam: Positive: Normal Speech, Cranial Nerves 3-12 NL Psych Exam: Positive: Mental status NL, Mood NL, Oriented x 3 Assessment /Plan Problems (1) MSSA (methicillin susceptible Staphylococcus aureus) infection Status: Acute Response to Treatment: Stable Problem Text: had been on augmentin and failing so brought in and put on vancomycin. culture pre hospital identified MSSA in wound so unclear role for vancomycin here. will start cefazolin at optimal dosing, continue vanco for now. consider ID consult when available. (2) DM2 (diabetes mellitus, type 2) Status: Chronic Response to Treatment: Stable (3) CKD (chronic kidney disease), stage IV Status: Chronic Response to Treatment: Stable (4) CAD (coronary artery disease) Status: Chronic Response to Treatment: Stable Plan/VTE VTE Prophylaxis Ordered?: Yes VS, I&O, 24H, Fishbone Vital Signs/I&O Vital Signs Date Time Temp Pulse Resp B/P (MAP) Pulse Ox O2 Delivery O2 Flow Rate FiO2 04/16/19 09:26 75 140/73 04/16/19 05:34 98.3 20 97 Room Air I&O- Last 24 Hours up to 6 AM 04/16/19 06:00 Intake Total 1940 ml Output Total 0 ml Balance 1940 ml Laboratory Data 24H LABS Laboratory Tests 2 04/15/19 14:21: Immature Granulocyte % (Auto) 0.7, Neutrophils (%) (Auto) 78.4H, Lymphocytes (%) (Auto) 12.2L, Monocytes (%) (Auto) 6.0H, Eosinophils (%) (Auto) 2.5, Basophils (%) (Auto) 0.2, Neutrophils # (Auto) 10.0H, Lymphocytes # (Auto) 1.6, Monocytes # (Auto) 0.8, Eosinophils # (Auto) 0.3, Basophils # (Auto) 0.0, Nucleated Red Blood Cells % (auto) 0.0, Erythrocyte Sedimentation Rate 107H, Anion Gap 5L, Glomerular Filtration Rate 23.8L, Calcium Level 9.2, Total Bilirubin 0.7, Aspartate Amino Transf (AST/SGOT) 24, Alanine Aminotransferase (ALT/SGPT) 24, Alkaline Phosphatase 122H, C-Reactive Protein, Quantitative 11.70H, Total Prot ein 6.7, Albumin 3.1L, Albumin/Globulin Ratio 0.86L 04/15/19 15:37: Bedside Glucose (Misc Panel) 78L 04/15/19 16:58: Lactic Acid Level 1.4 04/15/19 17:57: Bedside Glucose (Misc Panel) 158H 04/15/19 21:20: Bedside Glucose (Misc Panel) 145H 04/16/19 05:42: Bedside Glucose (Misc Panel) 74L 04/16/19 07:57: Anion Gap 5L, Glomerular Filtration Rate 24.2L, Calcium Level 8.7L, Total B ilirubin 0.5, Aspartate Amino Transf (AST/SGOT) 13, Alanine Aminotransferase (ALT/SGPT) 22, Alkaline Phosphatase 111, Total Protein 6.1L, Albumin 2.8L, Albumin/Globulin Ratio 0.85L CBC/BMP Laboratory Tests 04/15/19 14:21 04/16/19 07:57 Microbiology Microbiology 04/15/19 Blood Culture, Received Pending 04/15/19 Blood Culture, Received Pending Juan Miguel Wilson MD Apr 16, 2019 09:45
[2019-04-16] MEDS ORDERED: ceFAZolin SOD 2 GM in IV 1 EA IV ONE (10:00)
[2019-04-16] MEDS: ENOXAPARIN 30 MG/0.3 ML SYR (J1650) SC SCH (11:55)
[2019-04-16] MEDS: GENTAMICIN SULFATE 0.1% OINT 15 GM TOP SCH ×2 (12:20→21:54)
[2019-04-16 14:00] VITALS: BP 140/50
[2019-04-16] MEDS: ACETAMINOPHEN TAB 650MG DOSE (2X325MG) PO PRN (17:23)
[2019-04-16] MEDS: VANCOMYCIN HCL 1,000 MG, VIAL MATE ADAPTER 1 EACH in D5W 250 ML IV SCH (18:09)
[2019-04-16] MEDS ORDERED: diphenhydrAMINE 25 MG CAP PO ONE (18:15)
[2019-04-16 20:26] VITALS: BP 143/50
[2019-04-16] MEDS: ATORVASTATIN 20 MG TAB PO SCH (21:53)
[2019-04-16] MEDS: traMADol 50 MG TAB PO PRN (21:53)
[2019-04-16] MEDS: LEVEMIR (INSULIN DETEMIR) 1 UNITS/0.01ML SC SCH (21:54)
[2019-04-16] MEDS ORDERED: ceFAZolin SOD 1 GM in D5W MINI-BAG PLUS 50 ML IV SCH (22:00)
[2019-04-16] MEDS: ceFAZolin SOD 1 GM in D5W MINI-BAG PLUS 50 ML IV SCH (23:12)
[2019-04-17 06:20] VITALS: BP 149/57
[2019-04-17] MEDS: traMADol 50 MG TAB PO PRN ×2 (06:44→16:27)
[2019-04-17] MEDS: HumaLOG INSULIN (NovoLOG) PER UNIT SC SCH ×3 (08:21→18:26)
[2019-04-17] MEDS: PARoxetine 20 MG TAB PO SCH (08:22)
[2019-04-17] MEDS: CALCITRIOL 0.25 MCG CAP (S0169) PO SCH (08:22)
[2019-04-17] MEDS: SPIRONOLACTONE 25 MG TAB PO SCH (08:22)
[2019-04-17] MEDS: CARVedilol 12.5 MG TAB PO SCH ×2 (08:23→20:32)
[2019-04-17] MEDS: ASPIRIN 81 MG ENTERIC TAB PO SCH (08:23)
[2019-04-17] MEDS: FERROUS GLUCONATE 324 MG TAB PO SCH ×2 (08:23→20:33)
[2019-04-17] MEDS: GABAPENTIN 300 MG CAP PO SCH ×3 (08:23→20:32)
[2019-04-17] MEDS: GENTAMICIN SULFATE 0.1% OINT 15 GM TOP SCH ×2 (08:24→20:33)
[2019-04-17] MEDS: ENOXAPARIN 30 MG/0.3 ML SYR (J1650) SC SCH (08:24)
[2019-04-17] MEDS: ceFAZolin SOD 1 GM in D5W MINI-BAG PLUS 50 ML IV SCH ×2 (10:36→22:00)
--- NOTE | 2019-04-17 13:22 | IPNPDOC ---
Subjective Date Seen The patient was seen on 04/17/19. Subjective Chief Complaint/HPI feels ok. but has pain at the toe and into de león on right leg Constitutional: Denies: Chills ENT: Denies: Head Aches Pulmonary: Denies: Dyspnea, Cough Cardiovascular: Denies: Chest Pain, Palpitations Gastrointestinal: Denies: Nausea, Abdominal Pain Hematologic: Denies: Bruising, Petecchia Musculoskeletal: Denies: Neck Pain Neurological: Denies: Weakness Psych: Reports: Mood Normal Objective Physical Examination General Exam: Positive: Alert, No Acute Distress Eye Exam: Positive: PERRLA, Conjunctiva & lids normal, EOMI; Negative: Sclera icteric ENT Exam: Positive: Atraumatic, Mucous membr. moist/pink, Pharynx Normal Neck Exam: Positive: Supple; Negative: JVD, thyromegaly Chest Exam: Positive: Clear to auscultation, Normal air movement Heart Exam: Positive: Rate Normal, Regular Rhythm, Normal S1, Normal S2; Negative: Murmurs, Rubs Telemetry: Positive: No significant arrhythmia Abdomen Exam: Positive: Normal bowel sounds, Soft; Negative: Tenderness, Hepatospenomegaly Extremity Exam: Positive: Normal pulses, Other (Left BKA.); Negative: Clubbing, Cyanosis, Edema Skin Exam: Positive: Nl turgor and temperature, Other skin issue (right 4th toe less swollen and less red. has had some debridement from Dr. Calixto. bumpy erythematous zone on de león (stasis dermatitis) is less prominent. likely does not represent cellulitis.); Negative: Breakdown, Lesion Neuro Exam: Positive: Normal Speech, Cranial Nerves 3-12 NL Psych Exam: Positive: Mental status NL, Mood NL, Oriented x 3 Assessment /Plan Problems (1) MSSA (methicillin susceptible Staphylococcus aureus) infection Status: Acute Response to Treatment: Stable Problem Text: 04/17: continue cefazolin plus vanco for now. consder ID consult. had been on augmentin and failing so brought in and put on vancomycin. culture pre hospital identified MSSA in wound so unclear role for vancomycin here. will start cefazolin at optimal dosing, continue vanco for now. consider ID consult when available. (2) DM2 (diabetes mellitus, type 2) Status: Chronic Response to Treatment: Stable Problem Text: hypoglycemia so insulin (levemir) dose reduced. (3) CKD (chronic kidney disease), stage IV Status: Chronic Response to Treatment: Stable (4) CAD (coronary artery disease) Status: Chronic Response to Treatment: Stable Plan/VTE VTE Prophylaxis Ordered?: Yes VS, I&O, 24H, Fishbone Vital Signs/I&O Vital Signs Date Time Temp Pulse Resp B/P (MAP) Pulse Ox O2 Delivery O2 Flow Rate FiO2 04/17/19 08:23 72 148/64 04/17/19 07:14 18 Room Air 04/17/19 06:20 97.0 97 I&O- Last 24 Hours up to 6 AM 04/17/19 06:00 Intake Total 2540 ml Output Total 0 ml Balance 2540 ml Laboratory Data 24H LABS Laboratory Tests 2 04/16/19 17:15: Bedside Glucose (Misc Panel) 115 04/16/19 20:28: Bedside Glucose (Misc Panel) 185H 04/17/19 05:58: Bedside Glucose (Misc Panel) 53L 04/17/19 08:08: Bedside Glucose (Misc Panel) 140H Microbiology Microbiology 04/15/19 Blood Culture - Preliminary, Resulted No growth after 24 hours . All specim... 04/15/19 Blood Culture - Preliminary, Resulted No growth after 24 hours . All specim... Juan Miguel Wilson MD Apr 17, 2019 13:22
[2019-04-17 14:00] VITALS: BP 176/59
[2019-04-17] MEDS: VANCOMYCIN HCL 1,000 MG, VIAL MATE ADAPTER 1 EACH in D5W 250 ML IV SCH (18:26)
[2019-04-17] MEDS: ATORVASTATIN 20 MG TAB PO SCH (20:33)
[2019-04-17] MEDS: LEVEMIR (INSULIN DETEMIR) 1 UNITS/0.01ML SC SCH (20:33)
--- NOTE | 2019-04-17 21:27 | CR ---
DATE: 04/16/2019 CHIEF COMPLAINT: The patient is seen for evaluation of an ulceration on her right foot. This 68-year-old female, when she presented to my office several days ago with an ulcer and redness and discharge. This was cultured. She was initially put on Augmentin 500 mg one by mouth twice a day due to her renal status. She states her leg and toe worsened. She went to the emergency room, was subsequently admitted to the hospital and is seen now for evaluation. She was placed on intravenous (IV) vancomycin. SCHEDULED MEDICATIONS: - allopurinol 100 mg two by mouth daily - atorvastatin 40 mg at bedtime - aspirin 81 mg - calcitriol 0.25 mcg daily - Coreg 12.5 mg tablets by mouth twice a day - ferrous gluconate 324 mg by mouth twice a day - gabapentin 300 mg by mouth three times a day - insulin Lantus 50 units every morning, 30 mg at bedtime - Humalog sliding scale - paroxetine 20 mg daily - K-Tab - torsemide 100 mg by mouth daily - spironolactone 25 mg by mouth daily ALLERGIES: TAPE, SULFA, CITRIC ACID, SODIUM BICARBONATE. PAST MEDICAL HISTORY: 1. Diabetes. 2. Hypertension. 3. Chronic kidney disease. 4. Neuropathy. SURGICAL HISTORY: Partial amputations of her second, third and fifth toes. PHYSICAL EXAMINATION: Reveals an alert, well-oriented 68-year-old female in no acute distress. The bandage was removed from her right extremity. There is an ulceration present on the lateral side, two ulcerations. Proximal ulceration measures 5 mm x 5 mm. Ulceration on the distal lateral aspect of the toe measures 1.5 cm in width x 2 cm in length, with a black, necrotic eschar. After appropriate time, by using sterile curette, the ulcer is debrided excisional with a kay dermal curette through the subcutaneous tissues. No purulence was expressed. Gentamicin cream and bandage was applied. X-rays were reviewed. They were negative for osteomyelitis or fracture. Venous Duplex scan negative for deep venous thrombosis (DVT). Patient's culture from my office is available. Heavy growth of Staphylococcus aureus. It is sensitive to amoxicillin/ clavulanic acid. Patient is presently on vancomycin, renally dosed. Patient can be discharged with medicine being appropriate, Augmentin 500 mg by mouth twice a day. Continue with gentamicin cream to the toe. Patient's questions are answered. Thank you for this consultation. BHARATH
[2019-04-17 22:00] VITALS: BP 170/60
[2019-04-18] MEDS: diphenhydrAMINE 25 MG CAP PO PRN ×2 (00:53→20:33)
[2019-04-18] MEDS: traMADol 50 MG TAB PO PRN ×2 (00:54→20:33)
[2019-04-18 06:00] VITALS: BP 142/71
[2019-04-18 08:59] LABS: BASO # 0.1 10^3/uL (0.0-0.2); BASO % 0.5 % (0.0-1.0); EOS # 0.3 10^3/uL (0.0-0.5); EOS % 3.2 % (0.0-3.0); HEMATOCRIT 32.5 % (36.0-47.0); HEMOGLOBIN 10.4 g/dl (12.0-15.5); LYMPH # 1.7 10^3/uL (1.5-5.0); LYMPH % 15.4 % (24.0-44.0); MEAN CORPUSCULAR HEMOGLOBIN 31.4 pg (27.0-33.0); MEAN CORPUSCULAR VOLUME 98.2 fl (80.0-96.0); MONO # 0.7 10^3/uL (0.0-0.8); MONO % 6.3 % (0.0-5.0); NEUTROPHILS # 7.9 10^3/uL (1.5-8.5); NEUTROPHILS % 73.4 % (36.0-66.0); PLATELET COUNT, AUTOMATED 203 10^3/uL (150-450); RED BLOOD COUNT 3.31 10^6/uL (4.00-5.40); WHITE BLOOD COUNT 10.7 10^3/uL (4.0-10.0)
[2019-04-18] MEDS: HumaLOG INSULIN (NovoLOG) PER UNIT SC SCH ×3 (09:08→17:38)
[2019-04-18] MEDS: LEVEMIR (INSULIN DETEMIR) 1 UNITS/0.01ML SC SCH ×2 (09:09→20:33)
[2019-04-18] MEDS: ceFAZolin SOD 1 GM in D5W MINI-BAG PLUS 50 ML IV SCH ×2 (09:09→10:00)
[2019-04-18] MEDS: ENOXAPARIN 30 MG/0.3 ML SYR (J1650) SC SCH (09:10)
[2019-04-18] MEDS: PARoxetine 20 MG TAB PO SCH (09:10)
[2019-04-18] MEDS: SPIRONOLACTONE 25 MG TAB PO SCH (09:10)
[2019-04-18] MEDS: CALCITRIOL 0.25 MCG CAP (S0169) PO SCH (09:10)
[2019-04-18] MEDS: ASPIRIN 81 MG ENTERIC TAB PO SCH (09:10)
[2019-04-18] MEDS: CARVedilol 12.5 MG TAB PO SCH ×2 (09:10→20:32)
[2019-04-18] MEDS: GENTAMICIN SULFATE 0.1% OINT 15 GM TOP SCH ×2 (09:11→20:34)
[2019-04-18] MEDS: GABAPENTIN 300 MG CAP PO SCH ×3 (09:11→20:29)
[2019-04-18] MEDS: FERROUS GLUCONATE 324 MG TAB PO SCH ×2 (09:11→20:33)
[2019-04-18 09:29] LABS: C REACTIVE PROTEIN QUANTITATIV 6.44 MG/DL (0.00-0.30); CALCIUM LEVEL 8.7 MG/DL (8.8-10.2); CREATININE FOR GFR 2.15 MG/DL (0.55-1.30); GLOMERULAR FILTRATION RATE 24.4 (>45); POTASSIUM SERUM 4.2 MEQ/L (3.5-5.1)
--- NOTE | 2019-04-18 10:12 | IPNPDOC ---
Subjective Date Seen The patient was seen on 04/18/19. Subjective Chief Complaint/HPI Pt this morning without new concerns. She states that she doesn't want to go home on PO abx, but would rather stay here on IV. She lost IV access last night. General: Denies: Fatigue Constitutional: Denies: Chills, Fever Pulmonary: Denies: Dyspnea, Cough Cardiovascular: Denies: Chest Pain, Palpitations Gastrointestinal: Denies: Nausea, Vomiting, Diarrhea Neurological: Denies: Weakness Psych: Reports: Mood Normal Objective Physical Examination General Exam: Positive: Alert, No Acute Distress ENT Exam: Positive: Mucous membr. moist/pink Neck Exam: Positive: Supple, thyromegaly Chest Exam: Positive: Clear to auscultation, Normal air movement Heart Exam: Positive: Rate Normal, Regular Rhythm, Normal S1, Normal S2; Negative: Murmurs, Rubs Abdomen Exam: Positive: Normal bowel sounds, Soft; Negative: Tenderness Extremity Exam: Positive: Normal pulses, Other (Left BKA.); Negative: Edema Skin Exam: Positive: Other skin issue (R foot wrapped) Neuro Exam: Positive: Normal Speech Assessment /Plan Problems (1) MSSA (methicillin susceptible Staphylococcus aureus) infection Status: Acute Response to Treatment: Stable Problem Text: plan 2-3D more IV cefazolin, then home on po cephalexin 04/18 Pt had been on Augmentin prior to admission per Dr Calixto, his consult note from 04.16 rec home with Amox, pt is apprehensive. She has been on Vanco and Cefazolin during admission. She lost IV access last night. Her wound culture from 04/12 reveals MSSA, will obtain recommendations from ID, I have reached out to Dr Rodríguez this morning, await response. 04/17: continue cefazolin plus vanco for now. consder ID consult. had been on augmentin and failing so brought in and put on vancomycin. culture pre hospital identified MSSA in wound so unclear role for vancomycin here. will start cefazolin at optimal dosing, continue vanco for now. consider ID consult when available. (2) DM2 (diabetes mellitus, type 2) Status: Chronic Response to Treatment: Stable Problem Text: hypoglycemia so insulin (levemir) dose reduced. (3) CKD (chronic kidney disease), stage IV Status: Chronic Response to Treatment: Stable (4) CAD (coronary artery disease) Status: Chronic Response to Treatment: Stable Plan/VTE VTE Prophylaxis Ordered?: Yes VS, I&O, 24H, Fishbone Vital Signs/I&O Vital Signs Date Time Temp Pulse Resp B/P (MAP) Pulse Ox O2 Delivery O2 Flow Rate FiO2 04/18/19 09:10 76 142/71 04/18/19 06:00 98.0 17 96 Room Air I&O- Last 24 Hours up to 6 AM 04/18/19 06:00 Intake Total 1960 ml Output Total 0 ml Balance 1960 ml Laboratory Data 24H LABS Laboratory Tests 2 04/17/19 13:18: Bedside Glucose (Misc Panel) 246H 04/17/19 17:06: Bedside Glucose (Misc Panel) 245H 04/17/19 20:04: Bedside Glucose (Misc Panel) 217H 04/18/19 05:47: Bedside Glucose (Misc Panel) 186H 04/18/19 08:48: Immature Granulocyte % (Auto) 1.2, Neutrophils (%) (Auto) 73.4H, Lymphocytes (%) (Auto) 15.4L, Monocytes (%) (Auto) 6.3H, Eosinophils (%) (Auto) 3.2H, Basophils (%) (Auto) 0.5, Neutrophils # (Auto) 7.9, Lymphocytes # (Auto) 1.7, Monocytes # (Auto) 0.7, Eosinophils # (Auto) 0.3, Basophils # (Auto) 0.1, Nucleated Red Blood Cells % (auto) 0.0, Anion Gap 6L, Glomerular Filtration Rate 24.4L, Calcium Level 8.7L, C-Reactive Protein, Quantitative 6.44H CBC/BMP Laboratory Tests 04/18/19 08:48 Microbiology Microbiology 04/15/19 Blood Culture - Preliminary, Resulted No Growth after 48 hours. All Specime... 04/15/19 Blood Culture - Preliminary, Resulted No Growth after 48 hours. All Specime... MEGHAN VELÁSQUEZ PA-C Apr 18, 2019 10:12 Alonzo Del Castillo M.D. Apr 18, 2019 18:27
[2019-04-18 14:00] VITALS: BP_SYST 122; BP_SYST 124; BP_DIAS 58; BP_DIAS 72
[2019-04-18] MEDS ORDERED: LIDOCAINE 1% MDV 20ML VIAL As Ordered ONE (15:45)
[2019-04-18] MEDS: ceFAZolin SOD 2 GM in IV 1 EA IV SCH (18:45)
--- NOTE | 2019-04-18 18:47 | REP ---
MIDLINE INSERTION WITH ULTRASOUND GUIDANCE: REASON FOR EXAM: PROCEDURE: Midline catheter insertion under ultrasound guidance. This procedure was performed by LOYD Fish, under the direct supervision of Dr. Burrows. The risks and benefits of the procedure were explained to the patient and informed consent was obtained prior to the procedure both verbally and written. Directly prior to the start of the procedure, a formal timeout was completed in the procedure room. The right basilic vein was localized using ultrasound guidance. The skin was prepped and draped in a sterile fashion. 1% lidocaine 10 mg/ml was used as a local anesthetic. Using ultrasound guidance the right basilic vein was cannulated and a 0.018 guidewire was inserted. The needle was removed and a 4.5 Tajik dilator and a Peel-Away sheath was inserted over the guidewire. A 4.5 Tajik single lumen catheter was cut to the length of 12 cm. The dilator was removed and the catheter was inserted over the guidewire. The Peel-Away sheath was removed and the catheter was flushed with heparinized saline as per hospital protocol. The catheter was affixed to the skin and a sterile dressing was applied. The patient tolerated the procedure well and there were no immediate complications. Reviewed by LOYD Montanez 04/18/2019 05:53 P Electronically Signed by Mihai Burrows MD 04/18/2019 06:38 P
[2019-04-18] MEDS: ATORVASTATIN 20 MG TAB PO SCH (20:30)
[2019-04-18 22:00] VITALS: BP 165/62
[2019-04-19 06:00] VITALS: BP 132/51
[2019-04-19] MEDS: ceFAZolin SOD 2 GM in IV 1 EA IV SCH ×2 (06:10→18:19)
[2019-04-19 06:19] LABS: BASO # 0.1 10^3/uL (0.0-0.2); BASO % 0.6 % (0.0-1.0); EOS # 0.3 10^3/uL (0.0-0.5); EOS % 3.2 % (0.0-3.0); HEMATOCRIT 28.2 % (36.0-47.0); HEMOGLOBIN 8.8 g/dl (12.0-15.5); LYMPH # 1.7 10^3/uL (1.5-5.0); LYMPH % 19.2 % (24.0-44.0); MEAN CORPUSCULAR HEMOGLOBIN 31.3 pg (27.0-33.0); MEAN CORPUSCULAR HGB CONC 31.2 g/dl (32.0-36.5); MEAN CORPUSCULAR VOLUME 100.4 fl (80.0-96.0); MONO # 0.5 10^3/uL (0.0-0.8); NEUTROPHILS # 6.3 10^3/uL (1.5-8.5); NEUTROPHILS % 69.6 % (36.0-66.0); PLATELET COUNT, AUTOMATED 194 10^3/uL (150-450); RED BLOOD COUNT 2.81 10^6/uL (4.00-5.40); WHITE BLOOD COUNT 9.1 10^3/uL (4.0-10.0)
[2019-04-19 06:47] LABS: ALBUMIN 2.4 GM/DL (3.2-5.2); ALT/SGPT < 6 U/L (12-78); BILIRUBIN,TOTAL 0.4 MG/DL (0.2-1.0); BLOOD UREA NITROGEN 62 MG/DL (7-18); C REACTIVE PROTEIN QUANTITATIV 5.48 MG/DL (0.00-0.30); CALCIUM LEVEL 8.8 MG/DL (8.8-10.2); CARBON DIOXIDE LEVEL 27 MEQ/L (21-32); CHLORIDE LEVEL 107 MEQ/L (98-107); CREATININE FOR GFR 2.18 MG/DL (0.55-1.30); GLUCOSE, FASTING 173 MG/DL (70-100); POTASSIUM SERUM 4.1 MEQ/L (3.5-5.1); SODIUM LEVEL 138 MEQ/L (136-145); TOTAL PROTEIN 6.2 GM/DL (6.4-8.2)
[2019-04-19] MEDS: SODIUM CHLORIDE 0.9% INJ 10 ML SYR IV SCH ×2 (07:02→19:08)
[2019-04-19 07:10] LABS: ERYTHROCYTE SEDIMENTATION RATE > 140 mm/hr (0-30)
[2019-04-19] MEDS: LEVEMIR (INSULIN DETEMIR) 1 UNITS/0.01ML SC SCH ×2 (08:32→21:45)
[2019-04-19] MEDS: HumaLOG INSULIN (NovoLOG) PER UNIT SC SCH ×3 (08:32→17:27)
--- NOTE | 2019-04-19 08:52 | CR ---
DATE OF CONSULTATION: 04/18/2019 REQUESTING PROVIDER: CARISA Meek REASON FOR CONSULTATION: Evaluation of right toe diabetic foot ulcer with cellulitis up the right leg. HISTORY OF PRESENT ILLNESS: The patient is a pleasant 68-year-old female well known to me from multiple previous admissions for osteomyelitis who has a history of insulin-dependent diabetes, poor compliance with left sided below the knee amputation and multiple amputations of the right foot. The patient developed an ulcer about a week prior to admission on the right fourth toe, which developed into a blister and then she started noticing purulent drainage from the right toe and erythema extending to the right lower extremity. The patient had low grade fever at home of 100 degrees. She was also having diarrhea and nausea from oral Augmentin that had been given to her by her seal skinner about 3 days prior to admission. She came to the hospital and was started on IV vancomycin and cefazolin. Dr. Calixto saw her in consultation and did a debridement at the bedside. He recommended oral antibiotics on discharge. PAST MEDICAL HISTORY: Her past medical history significant for insulin-dependent diabetes with diabetic neuropathy, hypertension, chronic kidney disease, hyperlipidemia. PAST SURGICAL HISTORY: Right second, third and fifth toe amputations. Left below-knee amputation in June 2018. She still does not have a prosthesis due to chronic open wounds. She follow s up with Dr. Dooley. Hysterectomy, cholecystectomy, partial appendectomy. FAMILY HISTORY: Not relevant. SOCIAL HISTORY: She denies a smoking, alcohol or drug use. She is and lives with her . REVIEW OF SYSTEMS: She had a fever and chills on admission but these have resolved. She has no nausea, vomiting currently. She had some diarrhea on Augmentin. She denies any dysuria, hematuria or incontinence. She denies any neck pain. She has chronic low back pain and has some leg pain on the right side. ALLERGIES: SULFA, TAPE, CITRIC ACID, HYDROCODONE, SODIUM BICARBONATE. MEDICATIONS: - cefazolin 1 gram IV every 12 hours - Levemir 30 units subcutaneous in the morning and 15 units subcutaneous at night She had received a dose of cefazolin 1 gram IV q.12 h, the last dose was administered on 04/17/2019 at 10:36 because she did not have any IV access. She also received vancomycin on 04/16 and 04/17/2019, 1 gram IV q.24 h and one dose on 04/15/2019 of 1 gram. - aspirin 81 mg daily - calcitriol 0.25 mcg daily - Paxil 40 mg q. Daily - aldactone 25 mg daily - Lipitor 40 mg by mouth at night - Coreg 12.5 mg by mouth twice a day - ferrous gluconate 225 mg twice a day - gabapentin 300 mg three times a day - gentamicin applied to the toe ulcer twice a day - Tylenol as needed LABORATORY DATA: White count on admission was 12.7 and today it was 10.7, hemoglobin 10.4, hematocrit 32.4, platelets 203, 73% neutrophils, 15% lymphocytes, 6% monocytes, 3% eosinophils. ESR 107. Sodium 140, potassium 4.2, chloride 105, bicarbonate 29, BUN 56, creatinine 2.15, glucose 184, calcium 8.7, CRP 6.4 down from 11.7, total protein 6.1, albumin 2.8, lactic acid 1.4. IMAGING STUDIES: Foot x-ray 04/15/2019 showed osseus structure relatively similar to 2013 without significant periosteal reaction or evidence of osteomyelitis. Vascular ultrasound showed no evidence of deep vein thrombosis (DVT). There is an inguinal lymph node measuring 3.2 x 1.4 cm. PHYSICAL EXAMINATION: She is a pleasant healthy looking female in no acute distress. Temperature is 98.5, pulse 61, respirations 18, blood pressure 124/58, oxygen sat 98% on room air. Heart: Normal S1, S2. No murmurs, rubs or gallops appreciated. Lungs: Clear. No wheezes or rhonchi. Abdomen: Morbidly obese, soft, nontender. No hepatosplenomegaly. Back: No costovertebral angle or lumbosacral tenderness. Extremities: +1 pitting edema on the right side. Left below-knee amputation with erythema on the posterior aspect of the leg with cracked skin, previous evidence of healed ulcer medially around the incision site, mild warmth. Fourth toe shows two ulcerations present on the lateral side of the toe measuring 1.5 x 2 cm and the other 0.5 x 1 cm. They have a slightly yellowish base. No necrosis noted. There is surrounding erythema. She has extension of cellulitis all the way up the de león to below the knee. Tender to touch and warm. IMPRESSION: This is a 68-year-old female with a history of multiple episodes of osteomyelitis and amputations requiring a left below-knee amputation and now has right fourth toe diabetic foot ulcer with cellulitis of the right leg. She has not received any IV antibiotics yesterday because of poor IV access. She has a midline placed today. Her wound cultures were positive as an outpatient for methicillin sensitive Staphylococcus aureus (MSSA). There is no need to use IV vancomycin and increased risk of nephrotoxicity. Her dose of cefazolin based on her body size would be 2 grams renally dosed at every 12 hours. Possibly the reason she progressed on Augmentin is that she was having diarrhea and the bioavailability of Augmentin is not that great. PLAN: Continue IV cefazolin for another couple days until cellulitis has improved and the patient could be discharged home on cephalexin instead of Augmentin, decreasing her risk of diarrhea, as it is more bioavailable at 90-100%.
[2019-04-19] MEDS: GENTAMICIN SULFATE 0.1% OINT 15 GM TOP SCH ×2 (10:28→19:08)
[2019-04-19] MEDS: SPIRONOLACTONE 25 MG TAB PO SCH (10:28)
[2019-04-19] MEDS: FERROUS GLUCONATE 324 MG TAB PO SCH ×2 (10:29→21:44)
[2019-04-19] MEDS: ASPIRIN 81 MG ENTERIC TAB PO SCH (10:29)
[2019-04-19] MEDS: GABAPENTIN 300 MG CAP PO SCH ×3 (10:29→21:45)
[2019-04-19] MEDS: PARoxetine 20 MG TAB PO SCH (10:29)
[2019-04-19] MEDS: CALCITRIOL 0.25 MCG CAP (S0169) PO SCH (10:29)
[2019-04-19] MEDS: ENOXAPARIN 30 MG/0.3 ML SYR (J1650) SC SCH (10:30)
[2019-04-19] MEDS: CARVedilol 12.5 MG TAB PO SCH ×2 (10:30→21:48)
[2019-04-19 13:56] VITALS: BP 156/63
--- NOTE | 2019-04-19 18:03 | IPN ---
DATE: 04/19/2019 Norma feels well. She states her leg pain has markedly improved. She denies any fever or chills. No nausea, vomiting, or diarrhea. She has a midline and has been receiving intravenous (IV) cefazolin without any problems. LABORATORY DATA: White count 9.1, hemoglobin 8.8, hematocrit 28.2, platelets 194, 70% neutrophils, 19% lymphocytes, 6% monocytes. ESR more than 140. Sodium 138, potassium 4.1, chloride 101, bicarbonate 27, BUN 62, creatinine 2.18, glucose 173. AST 11, ALT 6, CRP 5.48, down from 11.7. Blood cultures, two sets, were negative. Wound culture from the right toe outpatient was methicillin-sensitive Staphylococcus aureus (MSSA). PHYSICAL EXAMINATION: Oropharynx is clear. HEART: Normal S1, S2. No murmurs, rubs, or gallops. LUNGS: Clear. No wheezes, rales, or rhonchi. ABDOMEN: Morbidly obese, soft, nontender. EXTREMITIES: No clubbing or cyanosis. Trace +1 ankle edema bilaterally. Right lower extremity has erythema along the de lóen, which is slightly tender to touch. The 1st toe intact. Absent 2nd, 3rd, and 5th toe. She has a 4th toe which is deviated medially and has two ulcers, measuring 3 x 1 cm and 1 x 1 cm with slight yellowish drainage. IMPRESSION: 1. Right lower extremity cellulitis associated with a diabetic foot infection and diabetic foot ulcer of the 4th toe with culture positive for MSSA. The patient doing well on IV cefazolin 2 grams every 12 hours. She has a decrease in her C-reactive protein (CRP) and white count. 2. Insulin-dependent diabetes. Glucoses have been fairly controlled, measuring between 83-184. PLAN: The patient continues to improve. Hopefully could be discharged home tomorrow on Keflex 500 mg by mouth three times a day. I would avoid Augmentin, as it has low bioavailability, and it has caused her diarrhea. MTDD
--- NOTE | 2019-04-19 18:56 | IPNPDOC ---
Subjective Date Seen The patient was seen on 04/19/19. Subjective Chief Complaint/HPI improved foot pain General: Denies: Chills, Night Sweats Constitutional: Denies: Chills, Fever ENT: Denies: Head Aches Skin: Denies: Rash Pulmonary: Denies: Dyspnea, Cough Cardiovascular: Denies: Chest Pain, Palpitations Gastrointestinal: Denies: Nausea Objective Physical Examination General Exam: Positive: Alert, No Acute Distress ENT Exam: Positive: Mucous membr. moist/pink Neck Exam: Positive: Supple, thyromegaly Chest Exam: Positive: Clear to auscultation, Normal air movement Heart Exam: Positive: Rate Normal, Regular Rhythm, Normal S1, Normal S2; Negative: Murmurs, Rubs Abdomen Exam: Positive: Normal bowel sounds, Soft; Negative: Tenderness Extremity Exam: Positive: Normal pulses, Other (Left BKA.); Negative: Edema Skin Exam: Positive: Other skin issue (R foot wrapped) Neuro Exam: Positive: Normal Speech Assessment /Plan Problems (1) Anemia Status: Acute Problem Text: 04/19 [id number] concern acute blood loss 2 LMWH 04/18 10.4 baseline mid 9.5-10.5 (2) MSSA (methicillin susceptible Staphylococcus aureus) infection Status: Acute Response to Treatment: Stable Problem Text: D2 cefazolin 04/19 AF, WBC 9.1 (10.7), CRP 5.5 (6.4), but ESR >140 (107); improved wound-plan home on cephalexin po 04/18 Pt had been on Augmentin prior to admission per Dr Calixto, his consult note from 04.16 rec home with Amox, pt is apprehensive. She has been on Vanco and Cefazolin during admission. She lost IV access last night. Her wound culture from 04/12 reveals MSSA, will obtain recommendations from ID, I have reached out to Dr Rodríguez this morning, await response. 04/17: continue cefazolin plus vanco for now. consder ID consult. had been on augmentin and failing so brought in and put on vancomycin. culture pre hospital identified MSSA in wound so unclear role for vancomycin here. will start cefazolin at optimal dosing, continue vanco for now. consider ID consult when available. 04/15 BCX2 NG (3) DM2 (diabetes mellitus, type 2) Status: Chronic Response to Treatment: Stable Problem Text: hypoglycemia so insulin (levemir) dose reduced. (4) CKD (chronic kidney disease), stage IV Status: Chronic Response to Treatment: Stable Problem Text: at baseline GFR low 20s (5) CAD (coronary artery disease) Status: Chronic Response to Treatment: Stable Plan/VTE VTE Prophylaxis Ordered?: Yes VS, I&O, 24H, Fishbone Vital Signs/I&O Vital Signs Date Time Temp Pulse Resp B/P (MAP) Pulse Ox O2 Delivery O2 Flow Rate FiO2 04/19/19 13:56 98.2 65 18 156/63 (94) 100 Room Air I&O- Last 24 Hours up to 6 AM0 04/19/19 06:00 Intake Total 1470 ml Output Total 500 ml Balance 970 ml Laboratory Data 24H LABS Laboratory Tests 2 04/18/19 20:10: Bedside Glucose (Misc Panel) 147H 04/19/19 05:47: Immature Granulocyte % (Auto) 1.4, Neutrophils (%) (Auto) 69.6H, Lymphocytes (%) (Auto) 19.2L, Monocytes (%) (Auto) 6.0H, Eosinophils (%) (Auto) 3.2H, Basophils (%) (Auto) 0.6, Neutrophils # (Auto) 6.3, Lymphocytes # (Auto) 1.7, Monocytes # (Auto) 0.5, Eosinophils # (Auto) 0.3, Basophils # (Auto) 0.1, Nucleated Red Blo od Cells % (auto) 0.0, Erythrocyte Sedimentation Rate > 140H, Anion Gap 4L, Glomerular Filtration Rate 24.0L, Calcium Level 8.8, Total Bilirubin 0.4, Aspartate Amino Transf (AST/SGOT) 11, Alanine Aminotransferase (ALT/SGPT) < 6L, Alkaline Phosphatase 97, C-Reactive Protein, Quantitative 5.48H, Total Protein 6.2L, Albumin 2.4L, Albumin/Globulin Ratio 0.63L 04/19/19 11:27: Bedside Glucose (Misc Panel) 149H 04/19/19 16:38: Bedside Glucose (Misc Panel) 176H CBC/BMP Laboratory Tests 04/19/19 05:47 Microbiology Microbiology 04/15/19 Blood Culture - Preliminary, Resulted No Growth after 72 hours. All specime... 04/15/19 Blood Culture - Preliminary, Resulted No Growth after 72 hours. All specime... Alonzo Del Castillo M.D. Apr 19, 2019 18:56
[2019-04-19] MEDS: ATORVASTATIN 20 MG TAB PO SCH (21:44)
[2019-04-19] MEDS: diphenhydrAMINE 25 MG CAP PO PRN (21:44)
[2019-04-19] MEDS: traMADol 50 MG TAB PO PRN (21:44)
[2019-04-19 22:00] VITALS: BP 139/45
[2019-04-20] MEDS: ACETAMINOPHEN TAB 650MG DOSE (2X325MG) PO PRN ×2 (04:19→20:39)
[2019-04-20] MEDS: ceFAZolin SOD 2 GM in IV 1 EA IV SCH ×2 (05:54→17:10)
[2019-04-20] MEDS: traMADol 50 MG TAB PO PRN ×2 (05:55→13:50)
[2019-04-20 06:00] VITALS: BP 154/54
[2019-04-20] MEDS: SODIUM CHLORIDE 0.9% INJ 10 ML SYR IV SCH ×2 (06:58→17:10)
[2019-04-20 07:23] LABS: BASO # 0.1 10^3/uL (0.0-0.2); BASO % 0.4 % (0.0-1.0); EOS # 0.3 10^3/uL (0.0-0.5); EOS % 2.1 % (0.0-3.0); HEMATOCRIT 31.1 % (36.0-47.0); HEMOGLOBIN 9.8 g/dl (12.0-15.5); LYMPH # 1.4 10^3/uL (1.5-5.0); LYMPH % 11.6 % (24.0-44.0); MEAN CORPUSCULAR HEMOGLOBIN 31.6 pg (27.0-33.0); MEAN CORPUSCULAR HGB CONC 31.5 g/dl (32.0-36.5); MEAN CORPUSCULAR VOLUME 100.3 fl (80.0-96.0); MONO # 0.7 10^3/uL (0.0-0.8); MONO % 5.4 % (0.0-5.0); NEUTROPHILS # 9.8 10^3/uL (1.5-8.5); NEUTROPHILS % 79.3 % (36.0-66.0); PLATELET COUNT, AUTOMATED 196 10^3/uL (150-450); WHITE BLOOD COUNT 12.4 10^3/uL (4.0-10.0)
[2019-04-20] MEDS: HumaLOG INSULIN (NovoLOG) PER UNIT SC SCH ×3 (07:30→16:52)
[2019-04-20 07:38] LABS: ALBUMIN 2.7 GM/DL (3.2-5.2); BILIRUBIN,TOTAL 0.3 MG/DL (0.2-1.0); C REACTIVE PROTEIN QUANTITATIV 5.78 MG/DL (0.00-0.30); CALCIUM LEVEL 8.8 MG/DL (8.8-10.2); CREATININE FOR GFR 2.29 MG/DL (0.55-1.30); GLOMERULAR FILTRATION RATE 22.7 (>45); POTASSIUM SERUM 4.7 MEQ/L (3.5-5.1)
[2019-04-20] MEDS: ASPIRIN 81 MG ENTERIC TAB PO SCH (09:07)
[2019-04-20] MEDS: FERROUS GLUCONATE 324 MG TAB PO SCH ×2 (09:07→20:27)
[2019-04-20] MEDS: GABAPENTIN 300 MG CAP PO SCH ×3 (09:07→20:27)
[2019-04-20] MEDS: CALCITRIOL 0.25 MCG CAP (S0169) PO SCH (09:08)
[2019-04-20] MEDS: CARVedilol 12.5 MG TAB PO SCH ×2 (09:08→20:27)
[2019-04-20] MEDS: PARoxetine 20 MG TAB PO SCH (09:08)
[2019-04-20] MEDS: SPIRONOLACTONE 25 MG TAB PO SCH (09:08)
[2019-04-20] MEDS: LEVEMIR (INSULIN DETEMIR) 1 UNITS/0.01ML SC SCH ×2 (09:10→20:28)
[2019-04-20] MEDS: ENOXAPARIN 30 MG/0.3 ML SYR (J1650) SC SCH (09:10)
[2019-04-20 11:04] VITALS: BP 124/56
--- NOTE | 2019-04-20 12:05 | IPN ---
DATE: 04/20/2019 Norma is seen on 5 [address]. She feels short of breath. She had pleuritic chest discomfort this morning. Now she feels "like there is fluid in my lungs. She feels short of breath with this. No fever or chills. Denies any cough. PHYSICAL EXAMINATION: 99.9 degrees, 124/56, pulse 87, 98% oxygen saturation. Her sed rate is around 16. General Appearance: She is lying in bed in no distress. She looks a little pale. Lungs: Decreased breath sounds bilaterally. Heart: Regular rate and rhythm. Abdomen: Soft. Nontender. No peripheral edema. The left chest wall is tender to palpate. LABS: White count 12.4, hemoglobin up to 9.8, platelets are 196. Sodium 137, potassium 4.7, BUN 60, creatinine 2.9. C-reactive protein is 5.7. Blood sugars are below 200. IMPRESSION: 1. Shortness of breath with pleurisy. PA and lateral chest x-ray ordered. Followup based upon results of this. 2. Anemia. No evidence of acute blood loss. Hemoglobin is up a bit from yesterday. Suspect the drop was due to acute inflammation from the cellulitis. Repeat CBC in the morning. 3. Diabetes. Excellent control on current regimen. 4. Cellulitis of the foot. Continue her IV Ancef. Probable discharge tomorrow. Awaiting for results of chest x-ray.
[2019-04-20] MEDS: GENTAMICIN SULFATE 0.1% OINT 15 GM TOP SCH ×2 (12:28→20:28)
--- NOTE | 2019-04-20 12:55 | REP ---
PA and lateral chest: Comparison is 06/08/2018. There is diffuse interstitial coarsening as an interval change. Cardiac size is enlarged as an interval change. There are small bilateral pleural effusions in the posterior sulci as an interval change. The hernesto, mediastinum, skeletal structures are unremarkable. Impression: Interstitial coarsening, cardiomegaly, small bilateral pleural effusions are present and are changes from the prior study. Electronically Signed by Kenny Mccarthy MD 04/20/2019 12:46 P
[2019-04-20 14:00] VITALS: BP 173/68
[2019-04-20] MEDS: ATORVASTATIN 20 MG TAB PO SCH (20:27)
[2019-04-20 22:00] VITALS: BP 150/63
[2019-04-21] MEDS: traMADol 50 MG TAB PO PRN ×3 (00:01→17:14)
[2019-04-21] MEDS: ceFAZolin SOD 2 GM in IV 1 EA IV SCH ×2 (05:12→18:31)
[2019-04-21] MEDS: ACETAMINOPHEN TAB 650MG DOSE (2X325MG) PO PRN ×3 (05:13→20:52)
[2019-04-21 06:00] VITALS: BP 148/67
[2019-04-21 06:53] LABS: BASO % 0.3 % (0.0-1.0); EOS # 0.2 10^3/uL (0.0-0.5); EOS % 1.3 % (0.0-3.0); HEMATOCRIT 27.7 % (36.0-47.0); HEMOGLOBIN 8.8 g/dl (12.0-15.5); LYMPH % 8.2 % (24.0-44.0); MEAN CORPUSCULAR HEMOGLOBIN 31.9 pg (27.0-33.0); MEAN CORPUSCULAR HGB CONC 31.8 g/dl (32.0-36.5); MEAN CORPUSCULAR VOLUME 100.4 fl (80.0-96.0); MONO # 0.8 10^3/uL (0.0-0.8); MONO % 6.2 % (0.0-5.0); NEUTROPHILS # 10.4 10^3/uL (1.5-8.5); NEUTROPHILS % 82.8 % (36.0-66.0); PLATELET COUNT, AUTOMATED 173 10^3/uL (150-450); RED BLOOD COUNT 2.76 10^6/uL (4.00-5.40); WHITE BLOOD COUNT 12.6 10^3/uL (4.0-10.0)
[2019-04-21] MEDS: FUROSEMIDE 100 MG/10 ML VIAL (J1940) IV SCH ×3 (07:02→17:13)
[2019-04-21] MEDS: SODIUM CHLORIDE 0.9% INJ 10 ML SYR IV SCH ×2 (07:04→08:25)
[2019-04-21 07:17] LABS: ALBUMIN 2.5 GM/DL (3.2-5.2); ALT/SGPT < 6 U/L (12-78); BILIRUBIN,TOTAL 0.6 MG/DL (0.2-1.0); BLOOD UREA NITROGEN 57 MG/DL (7-18); CALCIUM LEVEL 8.6 MG/DL (8.8-10.2); CARBON DIOXIDE LEVEL 26 MEQ/L (21-32); CHLORIDE LEVEL 106 MEQ/L (98-107); CREATININE FOR GFR 2.08 MG/DL (0.55-1.30); GLOMERULAR FILTRATION RATE 25.4 (>45); GLUCOSE, FASTING 155 MG/DL (70-100); POTASSIUM SERUM 4.2 MEQ/L (3.5-5.1); SODIUM LEVEL 137 MEQ/L (136-145); TOTAL PROTEIN 6.3 GM/DL (6.4-8.2)
[2019-04-21] MEDS: HumaLOG INSULIN (NovoLOG) PER UNIT SC SCH ×3 (08:14→17:13)
[2019-04-21] MEDS: ENOXAPARIN 30 MG/0.3 ML SYR (J1650) SC SCH (08:15)
[2019-04-21] MEDS: CALCITRIOL 0.25 MCG CAP (S0169) PO SCH (08:24)
[2019-04-21] MEDS: GABAPENTIN 300 MG CAP PO SCH ×3 (08:24→20:51)
[2019-04-21] MEDS: CARVedilol 12.5 MG TAB PO SCH ×2 (08:24→20:52)
[2019-04-21] MEDS: SPIRONOLACTONE 25 MG TAB PO SCH (08:25)
[2019-04-21] MEDS: ASPIRIN 81 MG ENTERIC TAB PO SCH (08:25)
[2019-04-21] MEDS: FERROUS GLUCONATE 324 MG TAB PO SCH ×2 (08:25→20:51)
[2019-04-21] MEDS: PARoxetine 20 MG TAB PO SCH (08:25)
[2019-04-21] MEDS: LEVEMIR (INSULIN DETEMIR) 1 UNITS/0.01ML SC SCH ×2 (08:26→21:00)
[2019-04-21] MEDS: GENTAMICIN SULFATE 0.1% OINT 15 GM TOP SCH ×2 (08:26→21:51)
--- NOTE | 2019-04-21 08:45 | IPNPDOC ---
Subjective Date Seen The patient was seen on 04/21/19. Subjective Chief Complaint/HPI Still with significant JACOBS and Right posterior pleuritic chest pain this am. Constitutional: Denies: Chills, Fever Pulmonary: Reports: Dyspnea, Pleuritic Chest Pain; Denies: Cough Cardiovascular: Denies: Chest Pain, Palpitations Gastrointestinal: Denies: Nausea, Vomiting, Abdominal Pain, Diarrhea, Constipation Objective Physical Examination General Exam: Positive: Alert, No Acute Distress (breathing comfortably at rest) Chest Exam: Positive: Clear to auscultation, Normal air movement Heart Exam: Positive: Rate Normal, Regular Rhythm, Normal S1, Normal S2; Negative: Murmurs, Rubs Abdomen Exam: Positive: Normal bowel sounds, Soft; Negative: Tenderness Extremity Exam: Positive: Edema (1+ edema), Normal pulses, Other (Left BKA.) Skin Exam: Positive: Other skin issue (R foot wrapped) Neuro Exam: Positive: Normal Speech Assessment /Plan Problems (1) MSSA (methicillin susceptible Staphylococcus aureus) infection Status: Acute Response to Treatment: Stable Problem Text: D4 cefazolin check R MRI foot in AM-will need 4th toe amputation in near future 04/21 AF, but rising WBC 12.6 (04/19 9.1), CRP 10 (04/19 5.5) despite IV cefazolin 04/18 Pt had been on Augmentin prior to admission per Dr Calixto, his consult note from 04.16 rec home with Amox, pt is apprehensive. She has been on Vanco and Cefazolin during admission. She lost IV access last night. Her wound culture from 04/12 reveals MSSA, will obtain recommendations from ID, I have reached out to Dr Rodríguez this morning, await response. 04/17: continue cefazolin plus vanco for now. consder ID consult. had been on augmentin and failing so brought in and put on vancomycin. culture pre hospital identified MSSA in wound so unclear role for vancomycin here. will start cefazolin at optimal dosing, continue vanco for now. consider ID consult when available. 04/15 BCX2 NG (2) Acute diastolic CHF (congestive heart failure) Status: Acute Problem Text: Last Echo 04/2018: 1. Normal global left ventricular systolic pressure with mild concentric left ventricular hypertrophy. There are features of left ventricular diastolic dysfunction manifested by abnormal relaxation. 2. Aortic valve sclerosis without stenosis or aortic regurgitation. 3. Mitral annulus calcification with trace mitral regurgitation and mildly dilated left atrium. 4. Trace tricuspid regurgitation with a normal calculated pulmonary artery systolic pressure. 5. Trace pericardial effusion noted posteriorly, no evidence of cardiac tamponade. Torsemide has been on hold since admission (HD 100 mg daily) IV Lasix started. Cont Spironolactone Repeat echo due to pleuritic CP with CM on CXR (only had mild LVH on Echo in past) with previous trace pericardial effusion on Echo 04/2018 - will want to see if this has enlarged- (3) DM2 (diabetes mellitus, type 2) Status: Chronic Response to Treatment: Stable Problem Text: 04/21 - Further hypoglycemia - so Levemir dose decreased again - (4) Anemia Status: Acute Problem Text: 04/21 - likely dilutional from fluid overload - monitor trend with diuresis 04/19 [id number] concern acute blood loss 2 LMWH 04/18 10.4 baseline mid 9.5-10.5 (5) CKD (chronic kidney disease), stage IV Status: Chronic Response to Treatment: Stable Problem Text: at baseline GFR low 20s (6) CAD (coronary artery disease) Status: Chronic Response to Treatment: Stable Plan/VTE VTE Prophylaxis Ordered?: Yes VS, I&O, 24H, Fishbone Vital Signs/I&O Vital Signs Date Time Temp Pulse Resp B/P (MAP) Pulse Ox O2 Delivery O2 Flow Rate FiO2 04/21/19 08:25 18 Room Air 04/21/19 08:24 80 148/67 04/21/19 06:00 97.9 95 I&O- Last 24 Hours up to 6 AM 04/21/19 05:59 Intake Total 2030 ml Output Total 1200 ml Balance 830 ml Laboratory Data 24H LABS Laboratory Tests 2 04/20/19 11:52: Bedside Glucose (Misc Panel) 118H 04/20/19 16:37: Bedside Glucose (Misc Panel) 44L 04/20/19 17:15: Bedside Glucose (Misc Panel) 65L 04/20/19 20:17: Bedside Glucose (Misc Panel) 193H 04/21/19 06:30: Immature Granulocyte % (Auto) 1.2, Neutrophils (%) (Auto) 82.8H, Lymphocytes (%) (Auto) 8.2L, Monocytes (%) (Auto) 6.2H, Eosinophils (%) (Auto) 1.3, Basophils (%) (Auto) 0.3, Neutrophils # (Auto) 10.4H, Lymphocytes # (Auto) 1.0L, Monocytes # (Auto) 0.8, Eosinophils # (Auto) 0.2, Basophils # (Auto) 0.0, Nucleated Red Blood Cells % (auto) 0.0, Anion Gap 5L, Glomerular Filtration Rate 25.4L, Calcium Level 8.6L, Total Bilirubin 0.6#, Aspartate Amino Transf (AST/SGOT) 11, Alanine Aminotransferase (ALT/SGPT) < 6L, Alkaline Phosphatase 100, C-Reactive Protein, Quantitative 10.00H, Total Protein 6.3L, Albumin 2.5L, Albumin/Globulin Ratio 0.66L CBC/BMP Laboratory Tests 04/21/19 06:30 Microbiology Microbiology 04/15/19 Blood Culture - Final, Complete NO GROWTH AFTER 5 DAYS 04/15/19 Blood Culture - Final, Complete NO GROWTH AFTER 5 DAYS ERI CORDERO PA-C Apr 21, 2019 08:45 Alonzo Del Castillo M.D. Apr 21, 2019 17:54
[2019-04-21 14:00] VITALS: BP 133/51
[2019-04-21] MEDS: SODIUM CHLORIDE 0.9% INJ 10 ML SYR IV PRN (19:39)
[2019-04-21] MEDS ORDERED: ALBUTEROL SULFATE 2.5 MG/0.5 ML INH NEB SOLN NEB PRN (20:15)
[2019-04-21] MEDS: ATORVASTATIN 20 MG TAB PO SCH (20:51)
[2019-04-21] MEDS: IPRATROPIUM 0.5MG/ALBUTEROL 2.5MG INH SOL UD 3ML (DUONEB)(J7620) NEB SCH (20:55)
[2019-04-21 22:00] VITALS: BP 158/53
[2019-04-21] MEDS: CEPHALEXIN 500 MG CAP PO SCH (22:21)
--- NOTE | 2019-04-21 22:55 | IPN ---
DATE: 04/21/2019 Norma today was complaining of increasing shortness of breath with some pleuritic chest pain. She had a chest x-ray done which showed interstitial coarsening, cardiomegaly and small bilateral pleural effusions. She was not complaining of increasing shortness of breath and therefore her discharge was held up. She was given IV Lasix with some improvement. She is currently on cefazolin 2 grams IV every 12 hours, day number five. She states that her lower extremity cellulitis has improved and the pain in her leg has diminished. PHYSICAL EXAMINATION Heart: Normal S1, S2 with diminished breath sounds at the bases and few crackles. Abdomen: Obese, soft, nontender. Extremities: +1 pitting edema on the right side; some edema of the left thigh. Stump has mild erythema on the posterior aspect of the stump, but that has decreased in redness and size. There is an Optifoam dressing. There is no open wounds on the left stump. Right leg 4th toe has two ulcerations, superficial. No exposed bone and no purulent discharge. There is mild erythema of the toe. Erythema involving the leg anteriorly has decreased; tenderness has diminished. IMPRESSION 1. Diabetic foot ulcer right 4th toe with secondary cellulitis of the right leg with culture positive for MSSA on IV cefazolin. The patient will be switched to by mouth (p.o.) Keflex. 2. Congestive heart failure. The patient is complaining of increasing shortness of breath. Chest x-ray showed bilateral pleural effusion. The patient does to complain of some pleuritic pain. She is currently on spironolactone 25 mg daily and furosemide 80 mg IV every 6 hours. 3. Increased CRP and white counts. Will continue to monitor. I doubt the increase in the inflammatory markers are related to her right leg as the cellulitis is definitely improved, possibly related to lung issue. PLAN Repeat CBC, CRP in the morning. Discontinue IV cefazolin. She could be switched to cephalexin 500 mg by mouth every 8 hours to finish 14-day course; currently day #5.
[2019-04-22] MEDS: IPRATROPIUM 0.5MG/ALBUTEROL 2.5MG INH SOL UD 3ML (DUONEB)(J7620) NEB SCH ×4 (00:39→19:37)
[2019-04-22] MEDS: FUROSEMIDE 100 MG/10 ML VIAL (J1940) IV SCH ×4 (00:42→18:07)
[2019-04-22] MEDS: traMADol 50 MG TAB PO PRN ×3 (00:42→18:06)
[2019-04-22] MEDS: diphenhydrAMINE 25 MG CAP PO PRN (00:42)
[2019-04-22] MEDS: SODIUM CHLORIDE 0.9% INJ 10 ML SYR IV PRN ×2 (00:43→01:18)
[2019-04-22] MEDS: CEPHALEXIN 500 MG CAP PO SCH ×3 (05:32→21:26)
[2019-04-22] MEDS: SODIUM CHLORIDE 0.9% INJ 10 ML SYR IV SCH ×2 (05:32→18:08)
[2019-04-22 06:00] VITALS: BP 156/74
[2019-04-22] MEDS: HumaLOG INSULIN (NovoLOG) PER UNIT SC SCH ×3 (07:30→18:06)
--- NOTE | 2019-04-22 08:14 | IPNPDOC ---
Subjective Date Seen The patient was seen on 04/22/19. Subjective Chief Complaint/HPI Still very SOB with exertion Constitutional: Denies: Chills, Fever Pulmonary: Reports: Dyspnea, Cough Cardiovascular: Denies: Chest Pain, Palpitations, Orthopnea Gastrointestinal: Denies: Nausea, Vomiting, Abdominal Pain, Diarrhea, Constipation Objective Physical Examination General Exam: Positive: Alert, No Acute Distress (breathing comfortably at rest) Chest Exam: Positive: Clear to auscultation, Normal air movement Heart Exam: Positive: Rate Normal, Regular Rhythm, Normal S1, Normal S2; Negative: Murmurs, Rubs Abdomen Exam: Positive: Normal bowel sounds, Soft; Negative: Tenderness Extremity Exam: Positive: Edema (1+ edema), Normal pulses, Other (Left BKA.) Skin Exam: Positive: Other skin issue (R foot wrapped) Neuro Exam: Positive: Normal Speech Assessment /Plan Problems (1) Pleuritic chest pain Status: Acute Problem Text: Ddx: viral pleurisy, pericarditis, PN, PE-favor cause of increasing CRP given -MRI for osteo 04/15 -DVT US (2) Acute diastolic CHF (congestive heart failure) Status: Acute Problem Text: Last Echo 04/2018: 1. Normal global left ventricular systolic pressure with mild concentric left ventricular hypertrophy. There are features of left ventricular diastolic dysfunction manifested by abnormal relaxation. 2. Aortic valve sclerosis without stenosis or aortic regurgitation. 3. Mitral annulus calcification with trace mitral regurgitation and mildly dilated left atrium. 4. Trace tricuspid regurgitation with a normal calculated pulmonary artery systolic pressure. 5. Trace pericardial effusion noted posteriorly, no evidence of cardiac tamponade. Torsemide was on hold since admission (HD 100 mg daily) IV Lasix starte, but not much diuresis - Cont Spironolactone - add Fluid Restriction Repeat echo ordered due to pleuritic CP with CM on CXR (only had mild LVH on Echo in past) with previous trace pericardial effusion on Echo 04/2018 - will want to see if this has enlarged- (3) MSSA (methicillin susceptible Staphylococcus aureus) infection Status: Acute Response to Treatment: Stable Problem Text: 04/22 - D#6 abx previously on Cefazolin. changed to Keflex per ID yesterday- WBC has gone up to 12.6 MRI foot ordered - will need 4th toe amputation in near future 04/21 AF, but rising WBC 12.6 (04/19 9.1), CRP 10 (04/19 5.5) despite IV cefazolin 04/18 Pt had been on Augmentin prior to admission per Dr Calixto, his consult note from 04.16 rec home with Amox, pt is apprehensive. She has been on Vanco and Cefazolin during admission. She lost IV access last night. Her wound culture from 04/12 reveals MSSA, will obtain recommendations from ID, I have reached out to Dr Rodríguez this morning, await response. 04/17: continue cefazolin plus vanco for now. consder ID consult. had been on augmentin and failing so brought in and put on vancomycin. culture pre hospital identified MSSA in wound so unclear role for vancomycin here. will start cefazolin at optimal dosing, continue vanco for now. consider ID consult when available. 04/15 BCX2 NG (4) DM2 (diabetes mellitus, type 2) Status: Chronic Response to Treatment: Stable Problem Text: 04/21 - Further hypoglycemia - so Levemir dose decreased again - (5) Anemia Status: Acute Problem Text: 04/21 - likely dilutional from fluid overload - still trending down, but no diuresis yet - monitor trend with diuresis 04/19 8.5-ig-[id number] concern acute blood loss 2 LMWH 04/18 10.4 baseline mid 9.5-10.5 (6) CKD (chronic kidney disease), stage IV Status: Chronic Response to Treatment: Stable Problem Text: at baseline GFR low 20s (7) CAD (coronary artery disease) Status: Chronic Response to Treatment: Stable Plan/VTE VTE Prophylaxis Ordered?: Yes VS, I&O, 24H, Fishbone Vital Signs/I&O Vital Signs Date Time Temp Pulse Resp B/P (MAP) Pulse Ox O2 Delivery O2 Flow Rate FiO2 04/22/19 06:00 98.9 92 18 156/74 (101) 95 Nasal Cannula 2.0 I&O- Last 24 Hours up to 6 AM 04/22/19 06:00 Intake Total 2180 ml Output Total 2900 ml Balance -720 ml Laboratory Data 24H LABS Laboratory Tests 2 04/21/19 11:53: Bedside Glucose (Misc Panel) 166H 04/21/19 16:47: Bedside Glucose (Misc Panel) 126H 04/21/19 20:33: Bedside Glucose (Misc Panel) 73L Microbiology Microbiology 04/15/19 Blood Culture - Final, Complete NO GROWTH AFTER 5 DAYS 04/15/19 Blood Culture - Final, Complete NO GROWTH AFTER 5 DAYS ERI CORDERO PA-C Apr 22, 2019 08:14 Alonzo Del Castillo M.D. Apr 22, 2019 16:53
[2019-04-22] MEDS ORDERED: FUROSEMIDE 40 MG/4 ML VIAL (J1940) IV ONE (08:30)
[2019-04-22 08:40] LABS: BASO % 0.3 % (0.0-1.0); EOS # 0.1 10^3/uL (0.0-0.5); EOS % 1.1 % (0.0-3.0); HEMATOCRIT 26.4 % (36.0-47.0); HEMOGLOBIN 8.5 g/dl (12.0-15.5); LYMPH % 7.8 % (24.0-44.0); MEAN CORPUSCULAR HEMOGLOBIN 31.5 pg (27.0-33.0); MEAN CORPUSCULAR HGB CONC 32.2 g/dl (32.0-36.5); MEAN CORPUSCULAR VOLUME 97.8 fl (80.0-96.0); MONO # 0.8 10^3/uL (0.0-0.8); MONO % 6.9 % (0.0-5.0); NEUTROPHILS # 10.2 10^3/uL (1.5-8.5); PLATELET COUNT, AUTOMATED 163 10^3/uL (150-450); WHITE BLOOD COUNT 12.2 10^3/uL (4.0-10.0)
[2019-04-22] MEDS: ASPIRIN 81 MG ENTERIC TAB PO SCH (08:50)
[2019-04-22] MEDS: PARoxetine 20 MG TAB PO SCH (08:50)
[2019-04-22] MEDS: SPIRONOLACTONE 25 MG TAB PO SCH (08:50)
[2019-04-22] MEDS: CALCITRIOL 0.25 MCG CAP (S0169) PO SCH (08:51)
[2019-04-22] MEDS: GABAPENTIN 300 MG CAP PO SCH ×3 (08:51→21:26)
[2019-04-22] MEDS: CARVedilol 12.5 MG TAB PO SCH ×2 (08:51→21:26)
[2019-04-22] MEDS: FERROUS GLUCONATE 324 MG TAB PO SCH ×2 (08:51→21:26)
[2019-04-22] MEDS: ENOXAPARIN 30 MG/0.3 ML SYR (J1650) SC SCH (08:52)
[2019-04-22] MEDS: GENTAMICIN SULFATE 0.1% OINT 15 GM TOP SCH ×2 (08:53→21:27)
[2019-04-22] MEDS ORDERED: LEVEMIR (INSULIN DETEMIR) 1 UNITS/0.01ML SC SCH (09:00)
[2019-04-22] MEDS: LEVEMIR (INSULIN DETEMIR) 1 UNITS/0.01ML SC SCH ×2 (09:00→21:26)
[2019-04-22 09:05] LABS: ERYTHROCYTE SEDIMENTATION RATE 129 mm/hr (0-30)
[2019-04-22 09:09] LABS: ALBUMIN 2.6 GM/DL (3.2-5.2); ALT/SGPT < 6 U/L (12-78); BILIRUBIN,TOTAL 0.7 MG/DL (0.2-1.0); BLOOD UREA NITROGEN 59 MG/DL (7-18); CALCIUM LEVEL 8.1 MG/DL (8.8-10.2); CARBON DIOXIDE LEVEL 26 MEQ/L (21-32); CHLORIDE LEVEL 105 MEQ/L (98-107); CREATININE FOR GFR 2.24 MG/DL (0.55-1.30); GLOMERULAR FILTRATION RATE 23.3 (>45); GLUCOSE, FASTING 93 MG/DL (70-100); POTASSIUM SERUM 3.9 MEQ/L (3.5-5.1); SODIUM LEVEL 138 MEQ/L (136-145); TOTAL PROTEIN 6.1 GM/DL (6.4-8.2)
--- NOTE | 2019-04-22 11:08 | REP ---
MRI RIGHT FOOT: Without contrast. HISTORY: Question osteomyelitis. Attention 4th toe. Comparison radiographs April 15, 2019. TECHNIQUE: Axial, coronal, and sagittal imaging planes utilized. T1- and T2-weighted scans were included with and without fat saturation. MRI FINDINGS: The patient is status post amputation of the 2nd, 3rd, and 5th digital rays at the level of the distal metatarsals. Cortical and medullary bone signal intensity appears normal and T1- and T2-weighted scans in the proximal mid and distal phalanges of the 4th toe, and the remaining 1st toe. There is some bunion change at the 1st MTP joint. There is no visible soft tissue fluid collection to suggest evidence of abscess. There is some edema in the soft tissues overlying the dorsal aspect of the 4th toe phalanges. IMPRESSION: No MRI evidence to suggest osteomyelitis. Electronically Signed by Mihai Burrows MD 04/22/2019 12:34 P
[2019-04-22] MEDS: ACETAMINOPHEN TAB 650MG DOSE (2X325MG) PO PRN ×2 (12:36→21:28)
[2019-04-22 14:00] VITALS: BP 147/61
[2019-04-22 17:00] VITALS: BP 161/88
--- NOTE | 2019-04-22 18:08 | REPVR ---
PROCEDURE INFORMATION: Exam: US Duplex Lower Extremity Veins Exam date and time: 04/22/2019 5:19 PM Age: 68 years old Clinical indication: Pain; Leg, upper and leg, lower; Bilateral; Additional info: Dyspnea, pleuritic cp TECHNIQUE: Imaging protocol: Real-time duplex ultrasound of the Lower Extremities with 2-D hayes scale, color Doppler flow and spectral waveform analysis with image documentation. Complete exam focused on the bilateral lower extremity veins. COMPARISON: US PV-Iain 04/15/2019 1:03 PM FINDINGS: Right deep veins: Unremarkable. The common femoral, proximal profunda femoral and popliteal veins are patent without thrombus. Normal Doppler waveforms. Normal compressibility and/or augmentation response. The proximal femoral vein and mid femoral vein compress normally and demonstrate normal blood flow on color Doppler examination and normal response to augmentation maneuvers. The right distal femoral vein did not fully compress. This was felt to be related to patient body habitus limitations. Blood flow is demonstrated on color Doppler examination. Right superficial veins: Saphenofemoral junction is patent without thrombus. Left deep veins: The common femoral, femoral, proximal profunda femoral are patent without thrombus. Normal Doppler waveforms. Normal compressibility and/or augmentation response. The left popliteal vein did not fully compress. This is felt to be related to patient body habitus limitations. Blood flow seen in the popliteal vein on color Doppler examination. Left superficial veins: Saphenofemoral junction is patent without thrombus. Soft tissues: Significant edema noted within the soft tissues of the bilateral lower extremities. IMPRESSION: Incomplete compression of the right distal femoral vein felt to be related to technical factors including patient body habitus which precluded full compression. Blood flow appears normal at this level on color Doppler examination. Chronic veno-occlusive disease or nonocclusive thrombus cannot entirely be excluded. 2. Incomplete compression of the left popliteal vein felt to be related to technical factors including patient motion and patient body habitus which precluded full compression. Blood flow appears normal at this level on color Doppler examination. Chronic veno-occlusive disease or nonocclusive thrombus cannot entirely be excluded. Electronically signed by: Ese Ohara On 04/22/2019 18:08:14 PM
[2019-04-22 18:50] LABS: NT-PRO BNP 5758 PG/ML (<125); TROPONIN I < 0.02 NG/ML (< 0.10)
--- NOTE | 2019-04-22 19:12 | REP ---
CHEST, TWO VIEWS: Two views of the chest are performed. There is cardiomegaly. Diffuse increased interstitial markings are present suggesting diffuse interstitial edema. On the lateral view, posteriorly and inferiorly there are mild patchy opacities suggesting mild basilar atelectasis/infiltrate. Mediastinal silhouette is unremarkable except for mild calcification of the thoracic aorta. There are mild degenerative changes of the spine. Electronically Signed by Kenny Huber MD 04/22/2019 07:18 P
--- NOTE | 2019-04-22 20:14 | IPN ---
DATE: 04/22/2019 Norma continues to complain of significant shortness of breath, especially with minimal exertion when she gets up to the commode. She also complains of pleuritic chest pain on the right side. She has no nausea, vomiting or diarrhea. No abdominal pain. Her right leg pain has markedly improved. She was diuresed yesterday, but she stated her urine output was not that great. Input 2240, output yesterday 2300, with a negative 68 mL balance. Today she is negative 1000 mL. MEDICATIONS: - Keflex 500 mg by mouth every 8 hours day #1. LABORATORY DATA: White count 12.2, hemoglobin 8.5, hematocrit 26.4, platelets 163, 83% neutrophils, 8% lymphocytes, 7% monocytes. Erythrocyte sedimentation rate 129. Sodium 138, potassium 3.9, chloride 105, bicarbonate 26, BUN 59, creatinine 2.24, glucose 93, calcium 8.1. Bilirubin 0.7, AST 16, ALT 11.6, alkaline phosphatase 116. CRP 20.1. He was down to 5.43 three days ago. H IMAGING STUDY: Foot MRI done on 04/22/2019 showed no MRI evidence of osteomyelitis, soft tissue edema in the soft tissues by the fourth toe phalanx, but no fluid collection. On physical exam, temperature is 98.9, pulse 83, respirations 17, blood pressure 147/61, oxygen saturation 96% on 2 liters nasal cannula. HEART: Normal S1, S2. No murmurs appreciated distant. LUNGS: Crackles bilaterally left side, three-quarters up on the right side, half way up fine. No rhonchi or wheezes. ABDOMEN: Obese, soft, nontender. EXTREMITIES: +1 pitting edema bilaterally. Right leg cellulitis anterior de león has markedly decreased. The redness has improved and tenderness has resolved right first toe. No evidence of infection. Fourth toe has two ulcers that have mild purulent discharge, but improving. No fluctuance. No tenderness. IMPRESSION: 1. Methicillin-sensitive Staphylococcus aureus (MSSA) diabetic foot ulcer of the right fourth toe and cellulitis of the right leg on oral Keflex, currently day number seven of appropriate antibiotics. 2. Pleuritic chest pain, increasing CRP, white count with dyspnea. Rule out viral infection versus hospital-acquired pneumonia versus pulmonary embolism. Improved with diuresis yesterday. 3. Chronic kidney disease. Creatinine is stable. PLAN: Continue with by mouth Keflex for cellulitis of right leg. Obtain methicillin-resistant Staphylococcus aureus polymerase chain reaction (PCR). Obtain respiratory panel to rule out viral infection. Will obtain a follow-up chest x-ray, PA and lateral. May consider obtaining CT if all above tests are negative. If patient worsens or becomes febrile, antibiotics should be brought. If workup is negative, may consider switching to Zosyn plus or minus vancomycin, depending if her MRSA PCR is positive. Case has been discussed with Dr. Del Castillo, who will followup on the results and call me.
[2019-04-22] MEDS: ATORVASTATIN 20 MG TAB PO SCH (21:26)
[2019-04-22 22:00] VITALS: BP 149/60
[2019-04-23 00:04] VITALS: BP 151/64
[2019-04-23] MEDS: IPRATROPIUM 0.5MG/ALBUTEROL 2.5MG INH SOL UD 3ML (DUONEB)(J7620) NEB SCH ×5 (00:04→23:39)
[2019-04-23] MEDS: SODIUM CHLORIDE 0.9% INJ 10 ML SYR IV SCH ×2 (00:07→17:55)
[2019-04-23] MEDS: FUROSEMIDE 100 MG/10 ML VIAL (J1940) IV SCH ×5 (00:08→23:38)
[2019-04-23] MEDS: CEPHALEXIN 500 MG CAP PO SCH (05:44)
[2019-04-23] MEDS: traMADol 50 MG TAB PO PRN ×2 (05:44→20:48)
[2019-04-23] MEDS: ACETAMINOPHEN TAB 650MG DOSE (2X325MG) PO PRN (05:45)
[2019-04-23 06:00] VITALS: BP 167/61
[2019-04-23 06:58] LABS: BASO % 0.3 % (0.0-1.0); EOS # 0.2 10^3/uL (0.0-0.5); EOS % 1.4 % (0.0-3.0); HEMATOCRIT 27.5 % (36.0-47.0); HEMOGLOBIN 8.8 g/dl (12.0-15.5); LYMPH # 0.7 10^3/uL (1.5-5.0); LYMPH % 5.9 % (24.0-44.0); MEAN CORPUSCULAR HEMOGLOBIN 31.2 pg (27.0-33.0); MEAN CORPUSCULAR VOLUME 97.5 fl (80.0-96.0); MONO # 0.8 10^3/uL (0.0-0.8); MONO % 6.4 % (0.0-5.0); NEUTROPHILS # 10.1 10^3/uL (1.5-8.5); NEUTROPHILS % 85.2 % (36.0-66.0); PLATELET COUNT, AUTOMATED 176 10^3/uL (150-450); RED BLOOD COUNT 2.82 10^6/uL (4.00-5.40); WHITE BLOOD COUNT 11.8 10^3/uL (4.0-10.0)
[2019-04-23 07:21] LABS: ALBUMIN 2.4 GM/DL (3.2-5.2); ALT/SGPT < 6 U/L (12-78); BILIRUBIN,TOTAL 0.6 MG/DL (0.2-1.0); BLOOD UREA NITROGEN 67 MG/DL (7-18); CALCIUM LEVEL 8.6 MG/DL (8.8-10.2); CARBON DIOXIDE LEVEL 28 MEQ/L (21-32); CHLORIDE LEVEL 102 MEQ/L (98-107); CREATININE FOR GFR 2.13 MG/DL (0.55-1.30); GLOMERULAR FILTRATION RATE 24.7 (>45); GLUCOSE, FASTING 203 MG/DL (70-100); POTASSIUM SERUM 3.8 MEQ/L (3.5-5.1); SODIUM LEVEL 135 MEQ/L (136-145)
[2019-04-23] MEDS: SPIRONOLACTONE 25 MG TAB PO SCH (08:23)
[2019-04-23] MEDS: ASPIRIN 81 MG ENTERIC TAB PO SCH (08:23)
[2019-04-23] MEDS: CALCITRIOL 0.25 MCG CAP (S0169) PO SCH (08:23)
[2019-04-23] MEDS: PARoxetine 20 MG TAB PO SCH (08:23)
[2019-04-23] MEDS: FERROUS GLUCONATE 324 MG TAB PO SCH ×2 (08:24→20:48)
[2019-04-23] MEDS: GABAPENTIN 300 MG CAP PO SCH ×3 (08:24→20:47)
[2019-04-23] MEDS: ENOXAPARIN 30 MG/0.3 ML SYR (J1650) SC SCH (08:24)
[2019-04-23] MEDS: CARVedilol 12.5 MG TAB PO SCH ×2 (08:24→20:48)
[2019-04-23] MEDS: LEVEMIR (INSULIN DETEMIR) 1 UNITS/0.01ML SC SCH ×2 (08:25→20:47)
[2019-04-23] MEDS: HumaLOG INSULIN (NovoLOG) PER UNIT SC SCH ×3 (08:25→17:54)
--- NOTE | 2019-04-23 08:56 | IPN ---
DATE: 04/23/2019 Staff concerned about shortness of breath, oxygen (O2) saturation drops overnight; it was 85% overnight, it is 91% this morning. She says she is coughing, and though she feels less short of breath since being diuresed, the cough is worsening. Yesterday's imaging studies showed no strong evidence of deep vein thrombosis (DVT) in either lower extremity. No osteomyelitis in her foot. Possible infiltrate on the chest x-ray. PHYSICAL EXAM: Temperature 100.5 degrees, blood pressure 167/61. She is alert, conversant, in no distress. Lungs have rhonchi. Heart: Regular rhythm. Abdomen: Soft, nontender. Trace peripheral edema. LABS: White count is 11.8, hemoglobin 8.8, platelets 176. Sodium 135, potassium 3.8, BUN is 213, C-reactive protein is up to 24. IMPRESSION: Suspected pneumonia. Will get a STAT CT of the chest. Suspect she has pneumonia in which case we will be putting her back on intravenous antibiotics.
[2019-04-23] MEDS: GENTAMICIN SULFATE 0.1% OINT 15 GM TOP SCH ×2 (09:00→20:49)
--- NOTE | 2019-04-23 10:21 | REP ---
CT CHEST WITHOUT IV CONTRAST: CT chest performed without IV contrast. Sagittal and coronal reconstruction images are performed. Comparison made with prior CT angiogram of the chest, 04/08/2009. There are diffuse bilateral interstitial infiltrates. There is a mild patchy alveolar component in both upper and lower lung zones. There are small bilateral pleural effusions. Heart is upper limits of normal in size. There is no pericardial effusion. There is mild scattered atherosclerotic calcification of the thoracic aorta without aneurysm. No significantly enlarged mediastinal or axillary lymph nodes are seen. Enlarged left lobe of thyroid with coarse calcifications is unchanged in appearance compared to the prior CT of the chest. In the visualized upper abdomen, note is made of a left adrenal adenoma measuring 2.6 cm maximum diameter. There are degenerative changes of the spine. IMPRESSION: Diffuse nonspecific bilateral interstitial infiltrates with mild patchy alveolar component both superiorly and inferiorly. Small effusions. Heart upper limits of normal in size. The pattern suggests pulmonary edema, but underlying pneumonia cannot be excluded. Electronically Signed by Kenny Huber MD 04/23/2019 06:37 P
--- NOTE | 2019-04-23 12:58 | IPN ---
DATE: 04/23/[address] scan of the chest returned suggesting fluffy infiltrates, either congestive heart failure (CHF) and/or pneumonia. Clinically, she seems to have both. I am stopping her cephalexin particularly in the face of the rising C-reactive protein. I am starting her on antibiotic therapy with ceftaroline. This should provide sufficient coverage for hospital associated pneumonia.
[2019-04-23 14:00] VITALS: BP 154/64
[2019-04-23] MEDS: CEFTAROLINE FOSAMIL 400 MG in D5W MINI-BAG PLUS 50 ML IV SCH (15:23)
[2019-04-23] MEDS: diphenhydrAMINE 25 MG CAP PO PRN (20:47)
[2019-04-23] MEDS: ATORVASTATIN 20 MG TAB PO SCH (20:47)
[2019-04-23 22:00] VITALS: BP 142/64
[2019-04-24] MEDS: CEFTAROLINE FOSAMIL 400 MG in D5W MINI-BAG PLUS 50 ML IV SCH ×2 (01:35→15:10)
[2019-04-24] MEDS: SODIUM CHLORIDE 0.9% INJ 10 ML SYR IV PRN ×2 (02:46→23:52)
[2019-04-24 06:00] VITALS: BP 135/50
[2019-04-24] MEDS: FUROSEMIDE 100 MG/10 ML VIAL (J1940) IV SCH ×4 (06:03→23:28)
[2019-04-24] MEDS: SODIUM CHLORIDE 0.9% INJ 10 ML SYR IV SCH ×2 (06:03→18:09)
[2019-04-24 06:38] LABS: HEMATOCRIT 27.9 % (36.0-47.0); MEAN CORPUSCULAR HEMOGLOBIN 31.4 pg (27.0-33.0); MEAN CORPUSCULAR HGB CONC 32.3 g/dl (32.0-36.5); MEAN CORPUSCULAR VOLUME 97.2 fl (80.0-96.0); PLATELET COUNT, AUTOMATED 180 10^3/uL (150-450); RED BLOOD COUNT 2.87 10^6/uL (4.00-5.40)
[2019-04-24 06:56] LABS: CALCIUM LEVEL 8.3 MG/DL (8.8-10.2); CREATININE FOR GFR 2.1 MG/DL (0.55-1.30); GLOMERULAR FILTRATION RATE 25.1 (>45); POTASSIUM SERUM 3.6 MEQ/L (3.5-5.1)
[2019-04-24] MEDS: IPRATROPIUM 0.5MG/ALBUTEROL 2.5MG INH SOL UD 3ML (DUONEB)(J7620) NEB SCH ×3 (07:06→19:49)
[2019-04-24] MEDS: HumaLOG INSULIN (NovoLOG) PER UNIT SC SCH ×3 (08:30→17:28)
[2019-04-24] MEDS: LEVEMIR (INSULIN DETEMIR) 1 UNITS/0.01ML SC SCH ×2 (08:31→20:29)
[2019-04-24] MEDS: PARoxetine 20 MG TAB PO SCH (08:32)
[2019-04-24] MEDS: ENOXAPARIN 30 MG/0.3 ML SYR (J1650) SC SCH (08:32)
[2019-04-24] MEDS: CARVedilol 12.5 MG TAB PO SCH ×2 (08:33→20:29)
[2019-04-24] MEDS: GABAPENTIN 300 MG CAP PO SCH ×3 (08:33→20:27)
[2019-04-24] MEDS: SPIRONOLACTONE 25 MG TAB PO SCH (08:33)
[2019-04-24] MEDS: CALCITRIOL 0.25 MCG CAP (S0169) PO SCH (08:34)
[2019-04-24] MEDS: ASPIRIN 81 MG ENTERIC TAB PO SCH (08:34)
[2019-04-24] MEDS: FERROUS GLUCONATE 324 MG TAB PO SCH ×2 (08:34→20:27)
[2019-04-24] MEDS: GENTAMICIN SULFATE 0.1% OINT 15 GM TOP SCH ×2 (08:39→20:29)
[2019-04-24] MEDS: traMADol 50 MG TAB PO PRN ×2 (08:49→20:28)
[2019-04-24] MEDS: diphenhydrAMINE 25 MG CAP PO PRN ×2 (08:49→22:27)
--- NOTE | 2019-04-24 12:44 | IPN ---
DATE: 04/24/2019 Norma is coughing up increasing amounts of sputum. She feels less short of breath. CT yesterday suggested pneumonia and antibiotic was broadened for hospital associated pneumonia so switching her to ceftaroline she seems to be better on this. PHYSICAL EXAMINATION: Afebrile, vital signs stable. Oxygen saturation 96% on 2 liters. Resting comfortable. Lungs a few rhonchi, but better than yesterday. Heart regular rhythm. Abdomen soft, nontender. Trace peripheral edema of her right leg. LABORATORIES: White count is down to 8. Renal functions stable. IMPRESSION: 1. Hospital associated pneumonia. Day 2 of ceftaroline. 2. Acute diastolic congestive heart failure. Continue to diuresis. She had a net negative of 3 liters yesterday. Probably transition to oral diuretic soon. 3. Diabetes. Blood sugars are under good control. 4. Stage IV chronic kidney disease. Renal function is at baseline. She is tolerating the diuresis well at this point.
[2019-04-24 14:00] VITALS: BP 137/51
--- NOTE | 2019-04-24 14:04 | ECGEPIP ---
[facility] Test Date: 2019-04-22 Pat Name: CARMELITA KANG Department: Room: [place] [address] Gender: Female [employer]: ANGI : 1950 Requested By: Alonzo SABILLON Order Number: [id number] Reading MD: Zulema Mckeon Measurements Intervals [place] Rate: 77 P: 62 OR: 213 QRS: 35 QRSD: 105 T: 24 QT: 392 QTc: 444 Interpretive Statements SINUS RHYTHM WITH FIRST DEGREE AV BLOCK AV BLOCK IS NEW SINCE 05/18/18 Electronically Signed on 04-24-2019 14:04:48 EST by Zulema Mckeon
[2019-04-24 19:52] VITALS: O2SAT 99
[2019-04-24] MEDS: ATORVASTATIN 20 MG TAB PO SCH (20:27)
[2019-04-24] MEDS: ACETAMINOPHEN TAB 650MG DOSE (2X325MG) PO PRN (20:28)
[2019-04-24 22:00] VITALS: BP 136/51
[2019-04-25] MEDS: CEFTAROLINE FOSAMIL 400 MG in D5W MINI-BAG PLUS 50 ML IV SCH ×2 (01:59→14:17)
[2019-04-25] MEDS: IPRATROPIUM 0.5MG/ALBUTEROL 2.5MG INH SOL UD 3ML (DUONEB)(J7620) NEB SCH ×4 (02:19→20:21)
[2019-04-25] MEDS: FUROSEMIDE 100 MG/10 ML VIAL (J1940) IV SCH (05:20)
[2019-04-25] MEDS: SODIUM CHLORIDE 0.9% INJ 10 ML SYR IV SCH ×2 (05:20→18:17)
[2019-04-25 06:00] VITALS: BP 139/54
[2019-04-25 06:23] LABS: HEMATOCRIT 31.2 % (36.0-47.0); HEMOGLOBIN 9.7 g/dl (12.0-15.5); MEAN CORPUSCULAR HEMOGLOBIN 30.7 pg (27.0-33.0); MEAN CORPUSCULAR HGB CONC 31.1 g/dl (32.0-36.5); MEAN CORPUSCULAR VOLUME 98.7 fl (80.0-96.0); PLATELET COUNT, AUTOMATED 162 10^3/uL (150-450); RED BLOOD COUNT 3.16 10^6/uL (4.00-5.40); WHITE BLOOD COUNT 6.5 10^3/uL (4.0-10.0)
[2019-04-25 06:44] LABS: C REACTIVE PROTEIN QUANTITATIV 13.8 MG/DL (0.00-0.30); CALCIUM LEVEL 8.7 MG/DL (8.8-10.2); CREATININE FOR GFR 2.59 MG/DL (0.55-1.30); GLOMERULAR FILTRATION RATE 19.7 (>45); POTASSIUM SERUM 3.7 MEQ/L (3.5-5.1)
[2019-04-25] MEDS: HumaLOG INSULIN (NovoLOG) PER UNIT SC SCH ×3 (08:31→17:30)
[2019-04-25] MEDS: ASPIRIN 81 MG ENTERIC TAB PO SCH (08:31)
[2019-04-25] MEDS: PARoxetine 20 MG TAB PO SCH (08:31)
[2019-04-25] MEDS: CARVedilol 12.5 MG TAB PO SCH ×2 (08:32→20:38)
[2019-04-25] MEDS: CALCITRIOL 0.25 MCG CAP (S0169) PO SCH (08:32)
[2019-04-25] MEDS: SPIRONOLACTONE 25 MG TAB PO SCH (08:32)
[2019-04-25] MEDS: FERROUS GLUCONATE 324 MG TAB PO SCH ×2 (08:32→20:38)
[2019-04-25] MEDS: GABAPENTIN 300 MG CAP PO SCH ×3 (08:32→20:38)
[2019-04-25] MEDS: ENOXAPARIN 30 MG/0.3 ML SYR (J1650) SC SCH (08:32)
[2019-04-25] MEDS: LEVEMIR (INSULIN DETEMIR) 1 UNITS/0.01ML SC SCH ×2 (08:33→20:42)
[2019-04-25] MEDS: GENTAMICIN SULFATE 0.1% OINT 15 GM TOP SCH ×2 (08:33→20:42)
[2019-04-25] MEDS: guaiFENesin ER 600 MG TAB PO SCH ×2 (09:00→20:38)
--- NOTE | 2019-04-25 10:41 | IPNPDOC ---
Subjective Date Seen The patient was seen on 04/25/19. Subjective Chief Complaint/HPI cellulitis Events since last encounter c/o cough and pleuritic chest pain. States leg feels near baseline. Constitutional: Denies: Chills, Fever, Night Sweats Pulmonary: Reports: Cough; Denies: Dyspnea Cardiovascular: Denies: Chest Pain, Palpitations, Orthopnea, Paroxysmal Noc. Dyspnea, Lt Headedness Gastrointestinal: Denies: Nausea, Vomiting, Abdominal Pain, Diarrhea, Constipation Genitourinary: Denies: Dysuria, Frequency, Incontinence, Retention Objective Physical Examination General Exam: Positive: Alert, No Acute Distress (breathing comfortably at rest) Chest Exam: Positive: Clear to auscultation, Normal air movement Heart Exam: Positive: Rate Normal, Regular Rhythm, Normal S1, Normal S2; Negative: Murmurs, Rubs Abdomen Exam: Positive: Normal bowel sounds, Soft; Negative: Tenderness Extremity Exam: Positive: Edema (1+ edema), Normal pulses, Other (Left BKA.) Skin Exam: Positive: Other skin issue (R foot wrapped) Neuro Exam: Positive: Normal Speech Assessment /Plan Problems (1) Pleuritic chest pain Status: Acute Problem Text: Ddx: viral pleurisy, pericarditis, PN, PE-favor cause of increasing CRP given -MRI for osteo 04/15 -DVT US (2) Acute diastolic CHF (congestive heart failure) Status: Acute Problem Text: Last Echo 04/2018: 1. Normal global left ventricular systolic pressure with mild concentric left ventricular hypertrophy. There are features of left ventricular diastolic dysfunction manifested by abnormal relaxation. 2. Aortic valve sclerosis without stenosis or aortic regurgitation. 3. Mitral annulus calcification with trace mitral regurgitation and mildly dilated left atrium. 4. Trace tricuspid regurgitation with a normal calculated pulmonary artery systolic pressure. 5. Trace pericardial effusion noted posteriorly, no evidence of cardiac tamponade. Torsemide was on hold since admission (HD 100 mg daily) IV Lasix starte, but not much diuresis - Cont Spironolactone - add Fluid Restriction Repeat echo ordered due to pleuritic CP with CM on CXR (only had mild LVH on Echo in past) with previous trace pericardial effusion on Echo 04/2018 - will want to see if this has enlarged- (3) MSSA (methicillin susceptible Staphylococcus aureus) infection Status: Acute Response to Treatment: Stable Problem Text: 04/25/2019: Now on Ceftaroline due to HAP. Day #3 04/22 - D#6 abx previously on Cefazolin. changed to Keflex per ID yesterday- WBC has gone up to 12.6 MRI foot ordered - will need 4th toe amputation in near future 04/21 AF, but rising WBC 12.6 (04/19 9.1), CRP 10 (04/19 5.5) despite IV cefazolin 04/18 Pt had been on Augmentin prior to admission per Dr Calixto, his consult note from 04.16 rec home with Amox, pt is apprehensive. She has been on Vanco and Cefazolin during admission. She lost IV access last night. Her wound culture from 04/12 reveals MSSA, will obtain recommendations from ID, I have reached out to Dr Rodríguez this morning, await response. 04/17: continue cefazolin plus vanco for now. consder ID consult. had been on augmentin and failing so brought in and put on vancomycin. culture pre hospital identified MSSA in wound so unclear role for vancomycin here. will start cefazolin at optimal dosing, continue vanco for now. consider ID consult when available. 04/15 BCX2 NG (4) DM2 (diabetes mellitus, type 2) Status: Chronic Response to Treatment: Stable Problem Text: stable. (5) Anemia Status: Acute Problem Text: 04/25/2019: Stable Hgb 04/21 - likely dilutional from fluid overload - still trending down, but no diuresis yet - monitor trend with diuresis 04/19 [id number] concern acute blood loss 2 LMWH 04/18 10.4 baseline mid 9.5-10.5 (6) CKD (chronic kidney disease), stage IV Status: Chronic Response to Treatment: Stable Problem Text: at baseline GFR low 20s (7) CAD (coronary artery disease) Status: Chronic Response to Treatment: Stable Plan/VTE VTE Prophylaxis Ordered?: Yes VS, I&O, 24H, Fishbone Vital Signs/I&O Vital Signs Date Time Temp Pulse Resp B/P (MAP) Pulse Ox O2 Delivery O2 Flow Rate FiO2 04/25/19 08:32 63 139/54 04/25/19 08:30 2.0 04/25/19 06:00 97.6 20 95 Nasal Cannula I&O- Last 24 Hours up to 6 AM 04/25/19 06:00 Intake Total 1200 ml Output Total 3000 ml Balance -1800 ml Laboratory Data 24H LABS Laboratory Tests 2 04/24/19 11:28: Bedside Glucose (Misc Panel) 130H 04/24/19 17:06: Bedside Glucose (Misc Panel) 66L 04/24/19 20:22: Bedside Glucose (Misc Panel) 137H 04/25/19 02:56: Bedside Glucose (Misc Panel) 185H 04/25/19 06:03: Nucleated Red Blood Cells % (auto) 0.0, Anion Gap 7L, Glomerular Filtration Rate 19.7L, Calcium Level 8.7L, C-Reactive Protein, Quantitative 13.80H CBC/BMP Laboratory Tests 04/25/19 06:03 Microbiology Microbiology 04/22/19 Respiratory Virus Panel (PCR) ([facility]) - Final, Complete 04/15/19 Blood Culture - Final, Complete NO GROWTH AFTER 5 DAYS 04/15/19 Blood Culture - Final, Complete NO GROWTH AFTER 5 DAYS July Cali [facility] Apr 25, 2019 10:41
[2019-04-25 14:00] VITALS: BP 128/46
[2019-04-25] MEDS: traMADol 50 MG TAB PO PRN (15:47)
[2019-04-25] MEDS: PIPERACILLIN/TAZOBACTAM SOD 2.25 GM in D5W MINI-BAG PLUS 50 ML IV SCH (19:40)
[2019-04-25] MEDS: ATORVASTATIN 20 MG TAB PO SCH (20:38)
[2019-04-25] MEDS: diphenhydrAMINE 25 MG CAP PO PRN (20:38)
[2019-04-25] MEDS: ACETAMINOPHEN TAB 650MG DOSE (2X325MG) PO PRN (20:39)
[2019-04-25] MEDS: SODIUM CHLORIDE 0.9% INJ 10 ML SYR IV PRN (20:39)
[2019-04-25 22:00] VITALS: BP 134/50
[2019-04-26] MEDS: PIPERACILLIN/TAZOBACTAM SOD 2.25 GM in D5W MINI-BAG PLUS 50 ML IV SCH ×4 (00:57→18:05)
[2019-04-26] MEDS: SODIUM CHLORIDE 0.9% INJ 10 ML SYR IV PRN (00:57)
[2019-04-26] MEDS: IPRATROPIUM 0.5MG/ALBUTEROL 2.5MG INH SOL UD 3ML (DUONEB)(J7620) NEB SCH ×4 (02:03→20:09)
[2019-04-26 06:00] VITALS: BP 169/67
[2019-04-26] MEDS: SODIUM CHLORIDE 0.9% INJ 10 ML SYR IV SCH ×2 (06:25→16:59)
[2019-04-26 07:15] LABS: HEMATOCRIT 27.6 % (36.0-47.0); HEMOGLOBIN 8.8 g/dl (12.0-15.5); MEAN CORPUSCULAR HGB CONC 31.9 g/dl (32.0-36.5); MEAN CORPUSCULAR VOLUME 97.2 fl (80.0-96.0); PLATELET COUNT, AUTOMATED 202 10^3/uL (150-450); RED BLOOD COUNT 2.84 10^6/uL (4.00-5.40); WHITE BLOOD COUNT 6.6 10^3/uL (4.0-10.0)
[2019-04-26] MEDS: HumaLOG INSULIN (NovoLOG) PER UNIT SC SCH ×3 (07:30→16:34)
[2019-04-26 07:42] LABS: C REACTIVE PROTEIN QUANTITATIV 8.58 MG/DL (0.00-0.30); CREATININE FOR GFR 2.5 MG/DL (0.55-1.30); GLOMERULAR FILTRATION RATE 20.5 (>45); POTASSIUM SERUM 3.8 MEQ/L (3.5-5.1)
[2019-04-26 08:55] VITALS: BP 134/56
[2019-04-26] MEDS: ASPIRIN 81 MG ENTERIC TAB PO SCH (09:34)
[2019-04-26] MEDS: GABAPENTIN 300 MG CAP PO SCH ×3 (09:34→20:36)
[2019-04-26] MEDS: guaiFENesin ER 600 MG TAB PO SCH ×2 (09:35→20:35)
[2019-04-26] MEDS: CALCITRIOL 0.25 MCG CAP (S0169) PO SCH (09:35)
[2019-04-26] MEDS: FERROUS GLUCONATE 324 MG TAB PO SCH ×2 (09:35→20:35)
[2019-04-26] MEDS: CARVedilol 12.5 MG TAB PO SCH ×2 (09:35→20:35)
[2019-04-26] MEDS: PARoxetine 20 MG TAB PO SCH (09:36)
[2019-04-26] MEDS: SPIRONOLACTONE 25 MG TAB PO SCH (09:36)
[2019-04-26] MEDS: ENOXAPARIN 30 MG/0.3 ML SYR (J1650) SC SCH (09:37)
[2019-04-26] MEDS: LEVEMIR (INSULIN DETEMIR) 1 UNITS/0.01ML SC SCH ×2 (09:38→20:37)
[2019-04-26] MEDS: GENTAMICIN SULFATE 0.1% OINT 15 GM TOP SCH ×2 (09:40→20:38)
--- NOTE | 2019-04-26 09:44 | IPN ---
DATE: 04/25/2019 Ms. Narayan was seen and examined at the bedside. This afternoon, she is not happy because she is afraid that she is getting sicker. She is concerned that she has pneumonia and that her renal function has worsened since she has been in the hospital. Reportedly, she was found to have some fluid in her lungs and she was aggressively being diuresed but now her GFR is lower and she feels very upset about that. In addition, she is very concerned about her right leg as it appears to be more swollen than normal and very red-appearing to have cellulitis. Otherwise, she has no complaints. She does not have any fever, chills, nausea, vomiting or diarrhea recently. Nor does she have any abdominal pain. OBJECTIVE: VITALS: Temperature 97.9, pulse 75, respiratory rate 18, blood pressure 128/46, and pulse oximetry 98% on room air. She has not been requiring any extra oxygen during this time. She is net negative 840 mL. She urinated about 2500 mL overnight. Her weight on this hospitalization has gone up from 115 kg to 121 kg. GENERAL: She is sitting in bed. She is calm, cooperative, no acute distress. She is not using accessory muscles for respirations. HEENT: Head is normocephalic, atraumatic. Extraocular movements are intact and her pupils are equal, round and reactive to light. Mucous membranes are dry. NECK: Supple with no thyromegaly. No lymphadenopathy. CHEST: She has even chest rise. LUNGS: She has some crackles bilaterally in the bases. Otherwise, no rhonchi or wheezes are appreciated. HEART: She is normal S1, normal S2. No murmurs, rubs or gallops. ABDOMEN: Soft and nontender to palpation with positive bowel sounds. No masses or organomegaly. EXTREMITIES: Her right lower extremity is warm to the touch and 1+ pitting edema. It appears cellulitic, although the redness has been stable since several days ago. No evidence of further infection on her right 1st toe or her 4th toe, although her 4th toe is draining purulent drainage but it is improving and she has no tenderness. On her left, she has a below knee amputation and no signs of infection on her stump. PSYCH: She is awake, alert, and oriented times three with somewhat depressed mood and anxious affect. NEURO: Cranial nerves II through XII are intact with no obvious focal deficits. LABS: Today her CBC demonstrated white blood cell count 6.5, hemoglobin 9.7, hematocrit 31.2, platelet count of 162. Chemistry demonstrate sodium 137, potassium 3.7, carbon dioxide 30, BUN 68, creatinine of 2.59. Her GFR is estimated at 19% from 25% yesterday. Her CRP has trended down from 20.1 up to 24.2 and is now down to 13.8. Her BNP is 5758 and her albumin 2.4. IMAGING: She did have a chest CT done on 04/23/2019 which demonstrated diffuse nonspecific bilateral interstitial infiltrative mild patchy alveolar component both superiorly and inferiorly. Small effusion. Heart is upper limits in size of normal. Pattern suggests pulmonary edema but underlying pneumonia cannot be excluded. She did have a respiratory viral panel on 04/22/2019 which was negative. ASSESSMENT: 1. Diabetic foot ulcer on the right 4th toe with secondary cellulitis of the right leg with culture positive for methicillin sensitive Staphylococcus aureus (MSSA) and was on IV cephazolin. The patient had been switched to Keflex but this has been stopped for concern of her respiratory pathology and now she is on Zosyn. 2. Congestive heart failure versus pneumonia: The patient is complaining of increased shortness of breath. Her CT was concerning for bilateral interstitial infiltrates and possible pneumonia. She is currently on Zosyn and is being diuresed with spironolactone 25 mg daily. It is my understanding that Lasix was stopped due to her worsening kidney function. Would recommend continuation of diuresis at this time. 3. Increased CRP and white counts: Will continue to monitor. These seem to be trending down. She does not have an elevated white blood cell count anymore and her inflammatory markers are coming down, likely to improve further. PLAN: I will order another BNP today. I will order a sputum culture as well. She is to continue on IV Zosyn and can be switched to oral once we have a better idea of sensitivities from her sputum. In addition, we would recommend continuing diuresis as she is likely to benefit due to the fact that she appears to be fluid overloaded at this time. [facility]
--- NOTE | 2019-04-26 10:25 | IPNPDOC ---
Subjective Date Seen The patient was seen on 04/26/19. Subjective Chief Complaint/HPI BETTY, cellulitis Events since last encounter c/o cough. Constitutional: Denies: Chills, Fever, Night Sweats Skin: Denies: Rash, Lesions, Breakdown Pulmonary: Reports: Cough; Denies: Dyspnea Cardiovascular: Denies: Chest Pain, Palpitations, Orthopnea, Paroxysmal Noc. Dyspnea, Lt Headedness Gastrointestinal: Denies: Nausea, Vomiting, Abdominal Pain, Diarrhea, Constipation Psych: Reports: Mood Normal; Denies: Depression, Memory Issues Objective Physical Examination General Exam: Positive: Alert, No Acute Distress (breathing comfortably at rest ) Chest Exam: Positive: Clear to auscultation, Normal air movement Heart Exam: Positive: Rate Normal, Regular Rhythm, Normal S1, Normal S2; Negative: Murmurs, Rubs Abdomen Exam: Positive: Normal bowel sounds, Soft; Negative: Tenderness Extremity Exam: Positive: Edema (1+ edema), Normal pulses, Other (Left BKA.) Skin Exam: Positive: Other skin issue (R foot wrapped) Neuro Exam: Positive: Normal Speech Assessment /Plan Problems (1) Pleuritic chest pain Status: Acute Problem Text: Ddx: viral pleurisy, pericarditis, PN, PE-favor cause of increasing CRP given -MRI for osteo 04/15 -DVT US (2) Acute diastolic CHF (congestive heart failure) Status: Acute Problem Text: Last Echo 04/2018: 1. Normal global left ventricular systolic pressure with mild concentric left ventricular hypertrophy. There are features of left ventricular diastolic dysfunction manifested by abnormal relaxation. 2. Aortic valve sclerosis without stenosis or aortic regurgitation. 3. Mitral annulus calcification with trace mitral regurgitation and mildly dilated left atrium. 4. Trace tricuspid regurgitation with a normal calculated pulmonary artery systolic pressure. 5. Trace pericardial effusion noted posteriorly, no evidence of cardiac tamponade. Torsemide was on hold since admission (HD 100 mg daily) IV Lasix starte, but not much diuresis - Cont Spironolactone - add Fluid Restriction Repeat echo ordered due to pleuritic CP with CM on CXR (only had mild LVH on Echo in past) with previous trace pericardial effusion on Echo 04/2018 - will want to see if this has enlarged- (3) MSSA (methicillin susceptible Staphylococcus aureus) infection Status: Acute Response to Treatment: Stable Problem Text: 04/26/2019: changed to Zosyn 04/25/2019: Now on Ceftaroline due to HAP. Day #3 04/22 - D#6 abx previously on Cefazolin. changed to Keflex per ID yesterday- WBC has gone up to 12.6 MRI foot ordered - will need 4th toe amputation in near future 04/21 AF, but rising WBC 12.6 (04/19 9.1), CRP 10 (04/19 5.5) despite IV cefazolin 04/18 Pt had been on Augmentin prior to admission per Dr Calixto, his consult n ote from 04.16 rec home with Amox, pt is apprehensive. She has been on Vanco and Cefazolin during admission. She lost IV access last night. Her wound culture from 04/12 reveals MSSA, will obtain recommendations from ID, I have reached out to Dr Rodríguez this morning, await response. 04/17: continue cefazolin plus vanco for now. consder ID consult. had been on augmentin and failing so brought in and put on vancomycin. culture pre hospital identified MSSA in wound so unclear role for vancomycin here. will start cefazolin at optimal dosing, continue vanco for now. consider ID consult when available. 04/15 BCX2 NG (4) DM2 (diabetes mellitus, type 2) Status: Chronic Response to Treatment: Stable Problem Text: stable. (5) Anemia Status: Acute Problem Text: 04/25/2019: Stable Hgb 04/21 - likely dilutional from fluid overload - still trending down, but no diuresis yet - monitor trend with diuresis 04/19 8.7-[id number] concern acute blood loss 2 LMWH 04/18 10.4 baseline mid 9.5-10.5 (6) CKD (chronic kidney disease), stage IV Status: Chronic Response to Treatment: Stable Problem Text: at baseline GFR low 20s (7) CAD (coronary artery disease) Status: Chronic Response to Treatment: Stable Plan/VTE VTE Prophylaxis Ordered?: Yes VS, I&O, 24H, Fishbone Vital Signs/I&O Vital Signs Date Time Temp Pulse Resp B/P (MAP) Pulse Ox O2 Delivery O2 Flow Rate FiO2 04/26/19 08:55 98.3 68 18 134/56 (82) 04/26/19 08:00 2.0 04/26/19 06:00 92 Room Air I&O- Last 24 Hours up to 6 AM 04/26/19 06:00 Intake Total 1450 ml Output Total 1500 ml Balance -50 ml Laboratory Data 24H LABS Laboratory Tests 2 04/25/19 12:02: Bedside Glucose (Misc Panel) 251H 04/25/19 16:43: Bedside Glucose (Misc Panel) 158H 04/25/19 19:54: Bedside Glucose (Misc Panel) 131H 04/25/19 21:26: AO-[id number]-X-Type Natriuretic Peptide 1259H 04/26/19 06:49: Nucleated Red Blood Cells % (auto) 0.0, Anion Gap 4L, Glomerular Filtration Rate 20.5L, Calcium Level 8.0L, C-Reactive Protein, Quantitative 8.58H, [id number]-Zga-M-Type Natriuretic Peptide 1111H CBC/BMP Laboratory Tests 04/26/19 06:49 Microbiology Microbiology 04/22/19 Respiratory Virus Panel (PCR) ([facility]) - Final, Complete July Cali [employer] Apr 26, 2019 10:25
[2019-04-26 14:00] VITALS: BP 142/84
[2019-04-26] MEDS: traMADol 50 MG TAB PO PRN ×2 (14:01→22:06)
[2019-04-26] MEDS: diphenhydrAMINE 25 MG CAP PO PRN ×2 (20:35→22:05)
[2019-04-26] MEDS: ATORVASTATIN 20 MG TAB PO SCH (20:36)
[2019-04-26 22:00] VITALS: BP 156/60
--- NOTE | 2019-04-26 22:27 | IPN ---
DATE: 04/26/2019 Norma still complains of some shortness of breath and pleuritic chest pain, but this has improved compared to last Thursday. She has had no fever or chills. No nausea, vomiting or diarrhea. She states that yesterday afternoon her leg was red, and therefore it was traced by Dr. Del Castillo. Today it seems to be doing well. She has no nausea, vomiting or diarrhea. She did complain of metallic taste in her mouth and therefore her ceftaroline was changed to Zosyn today, currently day #1. She had received three days of ceftaroline. LABORATORY: White count is 6.6, hemoglobin 8.8, hematocrit 27.6, platelets 202. Sodium 138, potassium 3.8, chloride 103, bicarbonate 31, BUN 62, creatinine 2.5, glucose 202, calcium 8, CRP 8.58 down from 24.2 on , BNP is 1111. Respiratory panel done on 04/22/2019 was negative. PHYSICAL EXAMINATION: On physical exam, temperature is 98.1, pulse 81, respirations 17, blood pressure 142/84, oxygen saturation (O2 sat) 90% on room air, which has decreased compared to three days ago. Heart: Normal S1, S2. No murmurs, rubs or gallops. Lungs: Diminished breath sounds at the bases. Abdomen: Obese, soft, nontender. Extremities: +1 pitting edema bilaterally. IMPRESSION: Right lower extremity erythema has markedly diminished, 4th toe ulcer healing well. There is minimal discharge on the Optifoam dressing. 1. Diabetic foot ulcer of the right 4th toe. No osteomyelitis. The patient has been on appropriate IV antibiotics for 10 days and improving. 2. Pneumonia with the right-sided pleuritic chest pain. The patient has been on combination of ceftaroline followed by Zosyn. I would suggest consider de-escalating to levofloxacin to see if she continues to improve and then hopefully she could be discharged home on levofloxacin. 3. Congestive heart failure, improving. PLAN: Dr. Lieberman will be calling microbiology tomorrow to see if her staph aureus isolated from her toe was susceptible to quinolone as well, and I would consider switching to quinolone in anticipation of discharge in a couple days.
[2019-04-27] MEDS: PIPERACILLIN/TAZOBACTAM SOD 2.25 GM in D5W MINI-BAG PLUS 50 ML IV SCH ×2 (01:50→06:15)
[2019-04-27] MEDS: IPRATROPIUM 0.5MG/ALBUTEROL 2.5MG INH SOL UD 3ML (DUONEB)(J7620) NEB SCH ×4 (02:46→20:06)
[2019-04-27 06:00] VITALS: BP 156/60
[2019-04-27] MEDS: SODIUM CHLORIDE 0.9% INJ 10 ML SYR IV SCH ×2 (06:15→17:54)
[2019-04-27] MEDS: traMADol 50 MG TAB PO PRN ×2 (06:16→20:46)
[2019-04-27 06:26] LABS: HEMATOCRIT 34.7 % (36.0-47.0); MEAN CORPUSCULAR HEMOGLOBIN 30.9 pg (27.0-33.0); MEAN CORPUSCULAR HGB CONC 31.4 g/dl (32.0-36.5); MEAN CORPUSCULAR VOLUME 98.3 fl (80.0-96.0); PLATELET COUNT, AUTOMATED 170 10^3/uL (150-450); RED BLOOD COUNT 3.53 10^6/uL (4.00-5.40); WHITE BLOOD COUNT 5.7 10^3/uL (4.0-10.0)
[2019-04-27 06:33] LABS: HEMOGLOBIN 10.9 g/dl (12.0-15.5)
[2019-04-27 06:49] LABS: CALCIUM LEVEL 8.4 MG/DL (8.8-10.2); CREATININE FOR GFR 2.5 MG/DL (0.55-1.30); GLOMERULAR FILTRATION RATE 20.5 (>45); POTASSIUM SERUM 3.8 MEQ/L (3.5-5.1)
[2019-04-27 07:45] VITALS: BP 157/59
--- NOTE | 2019-04-27 08:34 | IPN ---
DATE: 04/27/2019 Norma is seen on 5 Lin. She says that she has increased pain in her right foot, right pretibial area, and pleuritic chest pain persists. She still feels short of breath. She had a good diuresis over the previous week. She was seen yesterday by Dr. Rodríguez who thought she was improving on her IV antibiotics, and recommended changing her to levofloxacin, which we will do today (once it is determined whether the Staphylococcus in her toes is quinolone sensitive - will defer that decision to infectious disease). PHYSICAL EXAMINATION: 157/59, pulse 72, respirations 18, 95% oxygen saturation. She is alert and conversant in no distress. Lungs clear. Heart regular rhythm. Abdomen soft, nontender. Right foot is dressed. LABORATORIES: White count is 5.7. Electrolytes unremarkable. Creatinine is 2.5. PLAN: Will get a chest x-ray today. Will wait for ID to determine what they are going to do as far as the quinolones. I would like to see her put on an oral antibiotic and possibly discharged tomorrow.
[2019-04-27] MEDS: HumaLOG INSULIN (NovoLOG) PER UNIT SC SCH ×3 (09:06→17:53)
[2019-04-27] MEDS: CARVedilol 12.5 MG TAB PO SCH ×2 (09:07→20:44)
[2019-04-27] MEDS: SPIRONOLACTONE 25 MG TAB PO SCH (09:07)
[2019-04-27] MEDS: guaiFENesin ER 600 MG TAB PO SCH ×2 (09:08→20:44)
[2019-04-27] MEDS: ASPIRIN 81 MG ENTERIC TAB PO SCH (09:08)
[2019-04-27] MEDS: FERROUS GLUCONATE 324 MG TAB PO SCH ×2 (09:08→20:44)
[2019-04-27] MEDS: GABAPENTIN 300 MG CAP PO SCH ×3 (09:08→20:44)
[2019-04-27] MEDS: PARoxetine 20 MG TAB PO SCH (09:09)
[2019-04-27] MEDS: CALCITRIOL 0.25 MCG CAP (S0169) PO SCH (09:09)
[2019-04-27] MEDS: LEVEMIR (INSULIN DETEMIR) 1 UNITS/0.01ML SC SCH ×2 (09:10→20:45)
[2019-04-27] MEDS: ENOXAPARIN 30 MG/0.3 ML SYR (J1650) SC SCH (09:11)
[2019-04-27] MEDS: GENTAMICIN SULFATE 0.1% OINT 15 GM TOP SCH ×2 (09:28→20:45)
--- NOTE | 2019-04-27 10:12 | REP ---
CHEST, TWO VIEWS: Two views of the chest are performed and compared with prior study of 04/22/2019. Previously noted bilateral interstitial and alveolar opacities have significantly improved. There may be some minimal residual interstitial edema bilaterally. There is minimal bibasilar alveolar opacity in the left lung base. Heart is normal in size. There is mild calcification of the thoracic aorta. Mediastinal silhouette is unchanged. There are mild degenerative changes of the spine. IMPRESSION: Significant improvement in the previously noted interstitial edema pattern with possibly minimal residual. Also improvement of bibasilar alveolar opacities with minimal left basilar residual. Electronically Signed by Kenny Huber MD 04/27/2019 03:56 P
--- NOTE | 2019-04-27 10:39 | IPNPDOC ---
Subjective Date Seen The patient was seen on 04/27/19. Subjective Chief Complaint/HPI cellulitis, MSSA Events since last encounter Patient continues to c/o SOB/JACOBS. CXR completed and showing improvement. Constitutional: Denies: Chills, Fever, Night Sweats Eyes: Denies: Pain, Vision change Pulmonary: Reports: Dyspnea, Cough Cardiovascular: Denies: Chest Pain, Palpitations, Orthopnea, Paroxysmal Noc. Dyspnea, Lt Headedness Gastrointestinal: Denies: Nausea, Vomiting, Abdominal Pain, Diarrhea, Constipa tion Genitourinary: Denies: Dysuria, Frequency, Incontinence, Retention Neurological: Denies: Weakness, Numbness, Change in speech, Confusion Psych: Reports: Mood Normal; Denies: Depression, Memory Issues Objective Physical Examination General Exam: Positive: Alert, No Acute Distress (breathing comfortably at rest) Chest Exam: Positive: Clear to auscultation, Normal air movement Heart Exam: Positive: Rate Normal, Regular Rhythm, Normal S1, Normal S2; Negative: Murmurs, Rubs Abdomen Exam: Positive: Normal bowel sounds, Soft; Negative: Tenderness Extremity Exam: Positive: Edema (1+ edema), Normal pulses, Other (Left BKA.) Skin Exam: Positive: Other skin issue (R foot wrapped) Neuro Exam: Positive: Normal Speech Assessment /Plan Problems (1) HAP (hospital-acquired pneumonia) Status: Acute Problem Text: Currently on Zosyn. Potentially transition to Levaquin is toe infection shows susceptibility. Prednisone 20 mg po daily added on for JACOBS. Will give short course. (2) Pleuritic chest pain Status: Acute Problem Text: secondary to pneumonia, coughing 04/15 -DVT US (3) Acute diastolic CHF (congestive heart failure) Status: Acute Response to Treatment: Improving Problem Text: Last Echo 04/2018: 1. Normal global left ventricular systolic pressure with mild concentric left ventricular hypertrophy. There are features of left ventricular diastolic dysfunction manifested by abnormal relaxation. 2. Aortic valve sclerosis without stenosis or aortic regurgitation. 3. Mitral annulus calcification with trace mitral regurgitation and mildly dilated left atrium. 4. Trace tricuspid regurgitation with a normal calculated pulmonary artery systolic pressure. 5. Trace pericardial effusion noted posteriorly, no evidence of cardiac tamponade. Torsemide was on hold since admission (HD 100 mg daily) IV Lasix starte, but not much diuresis - Cont Spironolactone - add Fluid Restriction Repeat echo ordered due to pleuritic CP with CM on CXR (only had mild LVH on Echo in past) with previous trace pericardial effusion on Echo 04/2018 - will want to see if this has enlarged- (4) MSSA (methicillin susceptible Staphylococcus aureus) infection Status: Acute Response to Treatment: Stable Problem Text: 04/27/2019: See ID note for recommendations. 04/26/2019: changed to Zosyn 04/25/2019: Now on Ceftaroline due to HAP. Day #3 04/22 - D#6 abx previously on Cefazolin. changed to Keflex per ID yesterday- WBC has gone up to 12.6 MRI foot ordered - will need 4th toe amputation in near future 04/21 AF, but rising WBC 12.6 (04/19 9.1), CRP 10 (04/19 5.5) despite IV cefazolin 04/18 Pt had been on Augmentin prior to admission per Dr Calixto, his consult note from 04.16 rec home with Amox, pt is apprehensive. She has been on Vanco and Cefazolin during admission. She lost IV access last night. Her wound culture from 04/12 reveals MSSA, will obtain recommendations from ID, I have reached out to Dr Rodríguez this morning, await response. 04/17: continue cefazolin plus vanco for now. consder ID consult. had been on augmentin and failing so brought in and put on vancomycin. culture pre hospital identified MSSA in wound so unclear role for vancomycin here. will start cefazolin at optimal dosing, continue vanco for now. consider ID consult when available. 04/15 BCX2 NG (5) DM2 (diabetes mellitus, type 2) Status: Chronic Response to Treatment: Stable Problem Text: stable. (6) Anemia Status: Chronic Response to Treatment: Stable Problem Text: 04/27/2019: stable hgb. chronic anemia. Has required transfusion in the past. will monitor. 04/25/2019: Stable Hgb 04/21 - likely dilutional from fluid overload - still trending down, but no diuresis yet - monitor trend with diuresis 04/19 [id number] concern acute blood loss 2 LMWH 04/18 10.4 baseline mid 9.5-10.5 (7) CKD (chronic kidney disease), stage IV Status: Chronic Response to Treatment: Stable Problem Text: at baseline GFR low 20s (8) CAD (coronary artery disease) Status: Chronic Response to Treatment: Stable Plan/VTE VTE Prophylaxis Ordered?: Yes VS, I&O, 24H, Fishbone Vital Signs/I&O Vital Signs Date Time Temp Pulse Resp B/P (MAP) Pulse Ox O2 Delivery O2 Flow Rate FiO2 04/27/19 09:07 72 157/59 04/27/19 07:45 98.4 18 95 Room Air 04/26/19 08:00 2.0 I&O- Last 24 Hours up to 6 AM 04/27/19 06:00 Intake Total 1880 ml Output Total 2150 ml Balance -270 ml Laboratory Data 24H LABS Laboratory Tests 2 04/26/19 11:36: Bedside Glucose (Misc Panel) 256H 04/26/19 16:27: Bedside Glucose (Misc Panel) 157H 04/26/19 20:37: Bedside Glucose (Misc Panel) 255H 04/27/19 06:08: Nucleated Red Blood Cells % (auto) 0.0, Anion Gap 5L, Glomerular Filtration Rate 20.5L, Calcium Level 8.4L CBC/BMP Laboratory Tests 04/27/19 06:08 Microbiology Microbiology 04/22/19 Respiratory Virus Panel (PCR) ([facility]) - Final, Complete July Cali [facility] Apr 27, 2019 10:39
[2019-04-27] MEDS: predniSONE 20 MG TAB PO SCH (13:10)
[2019-04-27] MEDS: LevoFLOXacin 750 MG TABLET PO SCH (13:10)
[2019-04-27 14:18] VITALS: BP 151/59
[2019-04-27 20:06] VITALS: O2SAT 97
[2019-04-27] MEDS: ATORVASTATIN 20 MG TAB PO SCH (20:43)
[2019-04-27] MEDS: diphenhydrAMINE 25 MG CAP PO PRN (20:44)
[2019-04-27 22:00] VITALS: BP 159/60
[2019-04-28] MEDS: IPRATROPIUM 0.5MG/ALBUTEROL 2.5MG INH SOL UD 3ML (DUONEB)(J7620) NEB SCH ×4 (04:13→20:16)
[2019-04-28 06:00] VITALS: BP 151/63
[2019-04-28] MEDS: SODIUM CHLORIDE 0.9% INJ 10 ML SYR IV SCH ×2 (06:28→18:32)
[2019-04-28 07:15] LABS: HEMATOCRIT 28.3 % (36.0-47.0); HEMOGLOBIN 9.1 g/dl (12.0-15.5); MEAN CORPUSCULAR HEMOGLOBIN 31.5 pg (27.0-33.0); MEAN CORPUSCULAR HGB CONC 32.2 g/dl (32.0-36.5); MEAN CORPUSCULAR VOLUME 97.9 fl (80.0-96.0); PLATELET COUNT, AUTOMATED 193 10^3/uL (150-450); RED BLOOD COUNT 2.89 10^6/uL (4.00-5.40); WHITE BLOOD COUNT 9.5 10^3/uL (4.0-10.0)
[2019-04-28 07:37] LABS: CALCIUM LEVEL 8.8 MG/DL (8.8-10.2); CREATININE FOR GFR 2.03 MG/DL (0.55-1.30); GLOMERULAR FILTRATION RATE 26.1 (>45); POTASSIUM SERUM 4.3 MEQ/L (3.5-5.1)
[2019-04-28 08:30] VITALS: BP 160/56
[2019-04-28] MEDS: HumaLOG INSULIN (NovoLOG) PER UNIT SC SCH ×3 (09:06→18:32)
[2019-04-28] MEDS: SPIRONOLACTONE 25 MG TAB PO SCH (09:52)
[2019-04-28] MEDS: CARVedilol 12.5 MG TAB PO SCH ×2 (09:53→21:29)
[2019-04-28] MEDS: GABAPENTIN 300 MG CAP PO SCH ×3 (09:54→21:29)
[2019-04-28] MEDS: predniSONE 20 MG TAB PO SCH (09:54)
[2019-04-28] MEDS: guaiFENesin ER 600 MG TAB PO SCH ×2 (09:54→21:29)
[2019-04-28] MEDS: FERROUS GLUCONATE 324 MG TAB PO SCH ×2 (09:54→21:29)
[2019-04-28] MEDS: ASPIRIN 81 MG ENTERIC TAB PO SCH (09:54)
[2019-04-28] MEDS: PARoxetine 20 MG TAB PO SCH (09:55)
[2019-04-28] MEDS: CALCITRIOL 0.25 MCG CAP (S0169) PO SCH (09:55)
[2019-04-28] MEDS: LEVEMIR (INSULIN DETEMIR) 1 UNITS/0.01ML SC SCH ×2 (09:56→21:30)
[2019-04-28] MEDS: ENOXAPARIN 30 MG/0.3 ML SYR (J1650) SC SCH (09:58)
[2019-04-28] MEDS: GENTAMICIN SULFATE 0.1% OINT 15 GM TOP SCH ×2 (09:59→21:30)
--- NOTE | 2019-04-28 11:37 | IPNPDOC ---
Subjective Date Seen The patient was seen on 04/28/19. Subjective Chief Complaint/HPI Cellulitis Events since last encounter patient c/o not feeling well and not at her baseline. C/o JACOBS. She has not had any episodes of hypoxia. Constitutional: Denies: Chills, Fever, Night Sweats Pulmonary: Reports: Dyspnea, Cough Cardiovascular: Denies: Chest Pain, Palpitations, Orthopnea, Paroxysmal Noc. Dyspnea, Lt Headedness Gastrointestinal: Denies: Nausea, Vomiting, Abdominal Pain, Diarrhea, Constipation Objective Physical Examination General Exam: Positive: Alert, No Acute Distress (breathing comfortably at rest) Chest Exam: Positive: Clear to auscultation, Normal air movement Heart Exam: Positive: Rate Normal, Regular Rhythm, Normal S1, Normal S2; Negative: Murmurs, Rubs Abdomen Exam: Positive: Normal bowel sounds, Soft; Negative: Tenderness Extremity Exam: Positive: Edema (1+ edema), Normal pulses, Other (Left BKA.) Skin Exam: Positive: Other skin issue (R foot wrapped) Neuro Exam: Positive: Normal Speech Assessment /Plan Problems (1) HAP (hospital-acquired pneumonia) Status: Acute Problem Text: Transitioned to Levaquin is toe infection shows susceptibility. Prednisone 20 mg po daily added on for JACOBS. Continue Duonebs. Anticipated DC home n 1-2 days (2) Pleuritic chest pain Status: Acute Problem Text: secondary to pneumonia, coughing 04/15 -DVT US (3) Acute diastolic CHF (congestive heart failure) Status: Acute Response to Treatment: Improving Problem Text: Last Echo 04/2018: 1. Normal global left ventricular systolic pressure with mild concentric left ventricular hypertrophy. There are features of left ventricular diastolic dysfunction manifested by abnormal relaxation. 2. Aortic valve sclerosis without stenosis or aortic regurgitation. 3. Mitral annulus calcification with trace mitral regurgitation and mildly dilated left atrium. 4. Trace tricuspid regurgitation with a normal calculated pulmonary artery systolic pressure. 5. Trace pericardial effusion noted posteriorly, no evidence of cardiac tamponade. Torsemide was on hold since admission (HD 100 mg daily) IV Lasix starte, but not much diuresis - Cont Spironolactone - add Fluid Rest riction Repeat echo ordered due to pleuritic CP with CM on CXR (only had mild LVH on Echo in past) with previous trace pericardial effusion on Echo 04/2018 - will want to see if this has enlarged- (4) MSSA (methicillin susceptible Staphylococcus aureus) infection Status: Acute Response to Treatment: Stable Problem Text: 04/27/2019: See ID note for recommendations. 04/26/2019: changed to Zosyn 04/25/2019: Now on Ceftaroline due to HAP. Day #3 04/22 - D#6 abx previously on Cefazolin. changed to Keflex per ID yesterday- WBC has gone up to 12.6 MRI foot ordered - will need 4th toe amputation in near future 04/21 AF, but rising WBC 12.6 (04/19 9.1), CRP 10 (04/19 5.5) despite IV cefazolin 04/18 Pt had been on Augmentin prior to admission per Dr Calixto, his consult note from 04.16 rec home with Amox, pt is apprehensive. She has been on Vanco and Cefazolin during admission. She lost IV access last night. Her wound culture from 04/12 reveals MSSA, will obtain recommendations from ID, I have reached out to Dr Rodríguez this morning, await response. 04/17: continue cefazolin plus vanco for now. consder ID consult. had been on augmentin and failing so brought in and put on vancomycin. culture pre hospital identified MSSA in wound so unclear role for vancomycin here. will start cefazolin at optimal dosing, continue vanco for now. consider ID consult when available. 04/15 BCX2 NG (5) DM2 (diabetes mellitus, type 2) Status: Chronic Response to Treatment: Stable Problem Text: stable. (6) Anemia Status: Chronic Response to Treatment: Stable Problem Text: 04/27/2019: stable hgb. chronic anemia. Has required transfusion in the past. will monitor. 04/25/2019: Stable Hgb 04/21 - likely dilutional from fluid overload - still trending down, but no diuresis yet - monitor trend with diuresis 04/19 8.6-pw-[id number] concern acute blood loss 2 LMWH 04/18 10.4 baseline mid 9.5-10.5 (7) CKD (chronic kidney disease), stage IV Status: Chronic Response to Treatment: Stable Problem Text: at baseline GFR low 20s (8) CAD (coronary artery disease) Status: Chronic Response to Treatment: Stable Plan/VTE VTE Prophylaxis Ordered?: Yes VS, I&O, 24H, Fishbone Vital Signs/I&O Vital Signs Date Time Temp Pulse Resp B/P (MAP) Pulse Ox O2 Delivery O2 Flow Rate FiO2 04/28/19 09:53 72 160/56 04/28/19 08:30 98.3 18 94 Room Air 04/27/19 20:06 21 04/26/19 08:00 2.0 I&O- Last 24 Hours up to 6 AM 04/28/19 06:00 Intake Total 2460 ml Output Total 900 ml Balance 1560 ml Laboratory Data 24H LABS Laboratory Tests 2 04/27/19 17:28: Bedside Glucose (Misc Panel) 159H 04/27/19 20:22: Bedside Glucose (Misc Panel) 260H 04/28/19 06:54: Nucleated Red Blood Cells % (auto) 0.0, Anion Gap 3L, Glomerular Filtration Rate 26.1L, Calcium Level 8.8 04/28/19 11:27: Bedside Glucose (Misc Panel) 356H CBC/BMP Laboratory Tests 04/28/19 06:54 Microbiology Microbiology 04/22/19 Respiratory Virus Panel (PCR) ([facility]) - Final, Complete July Cali [facility] Apr 28, 2019 11:37
[2019-04-28 14:00] VITALS: BP 136/53
[2019-04-28] MEDS: BUDESONIDE 0.5 MG/2 ML INHALATION SUSPENSION INH SCH ×2 (14:14→20:16)
[2019-04-28] MEDS: ATORVASTATIN 20 MG TAB PO SCH (21:29)
[2019-04-28] MEDS: diphenhydrAMINE 25 MG CAP PO PRN (21:40)
[2019-04-28] MEDS: traMADol 50 MG TAB PO PRN (21:41)
[2019-04-28 22:00] VITALS: BP 160/73
[2019-04-28 23:15] VITALS: BP 140/60
[2019-04-29] MEDS: IPRATROPIUM 0.5MG/ALBUTEROL 2.5MG INH SOL UD 3ML (DUONEB)(J7620) NEB SCH ×2 (02:00→07:27)
[2019-04-29] MEDS: LevoFLOXacin 750 MG TABLET PO SCH (05:17)
[2019-04-29] MEDS: SODIUM CHLORIDE 0.9% INJ 10 ML SYR IV SCH (05:19)
[2019-04-29 06:00] VITALS: BP 120/60
[2019-04-29 06:54] LABS: HEMATOCRIT 28.1 % (36.0-47.0); MEAN CORPUSCULAR HEMOGLOBIN 31.9 pg (27.0-33.0); MEAN CORPUSCULAR VOLUME 99.6 fl (80.0-96.0); PLATELET COUNT, AUTOMATED 217 10^3/uL (150-450); RED BLOOD COUNT 2.82 10^6/uL (4.00-5.40); WHITE BLOOD COUNT 10.4 10^3/uL (4.0-10.0)
[2019-04-29 07:15] LABS: CALCIUM LEVEL 8.9 MG/DL (8.8-10.2); CREATININE FOR GFR 1.88 MG/DL (0.55-1.30); GLOMERULAR FILTRATION RATE 28.5 (>45); POTASSIUM SERUM 4.1 MEQ/L (3.5-5.1)
[2019-04-29] MEDS: BUDESONIDE 0.5 MG/2 ML INHALATION SUSPENSION INH SCH (07:27)
[2019-04-29] MEDS: HumaLOG INSULIN (NovoLOG) PER UNIT SC SCH (08:13)
[2019-04-29] MEDS: guaiFENesin ER 600 MG TAB PO SCH (08:14)
[2019-04-29] MEDS: ASPIRIN 81 MG ENTERIC TAB PO SCH (08:14)
[2019-04-29] MEDS: predniSONE 20 MG TAB PO SCH (08:14)
[2019-04-29] MEDS: ENOXAPARIN 30 MG/0.3 ML SYR (J1650) SC SCH (08:14)
[2019-04-29] MEDS: LEVEMIR (INSULIN DETEMIR) 1 UNITS/0.01ML SC SCH (08:14)
[2019-04-29 08:15] VITALS: BP 120/60
[2019-04-29] MEDS: CARVedilol 12.5 MG TAB PO SCH (08:15)
[2019-04-29] MEDS: CALCITRIOL 0.25 MCG CAP (S0169) PO SCH (08:15)
[2019-04-29] MEDS: GABAPENTIN 300 MG CAP PO SCH (08:16)
[2019-04-29] MEDS: FERROUS GLUCONATE 324 MG TAB PO SCH (08:16)
[2019-04-29] MEDS: SPIRONOLACTONE 25 MG TAB PO SCH (08:17)
[2019-04-29] MEDS: PARoxetine 20 MG TAB PO SCH (08:17)
[2019-04-29] MEDS: GENTAMICIN SULFATE 0.1% OINT 15 GM TOP SCH (08:20)
[2019-04-29] MEDS ORDERED: LEVA750T7 PO (10:09)
[2019-04-29] MEDS ORDERED: PRED20TA PO (10:09)
--- NOTE | 2019-05-02 07:43 | DSES ---
DATE OF ADMISSION: 04/19/2019 DATE OF DISCHARGE: 04/29/2019 PRIMARY CARE PHYSICIAN: Jeremy Cornell MD HISTORY: This is a 68-year-old female patient who has a medical history of insulin dependent diabetes, being treated in the outpatient setting for a right foot ulcer, having followed with Dr. Calixto. She saw her gas operations superintendent, just prior to presentation in the emergency department. Had x-rays and cultures done and was told to come to the emergency department if her symptoms changed or worsened. She noted drainage out of her 4th digit on her right lower extremity with erythema extending up into the foot and a low-grade fever of 100. She was started on IV vancomycin and admitted to the hospital. During her hospitalization, a consult was placed with Dr. Rodríguez after cultures were obtained with positive Methicillin-sensitive Staphylococcus aureus. Vancomycin was discontinued. She was transitioned over to cephazolin. The patient developed some pleuritic chest pain during her hospitalization and then followed increased shortness of breath, dropping of her oxygen saturations. She had a chest x-ray and a subsequent stat CT scan, felt to have a suspected pneumonia. The CT scan showed nonspecific bilateral interstitial infiltrates with mild patchy alveolar components, but superiorly and inferiorly and small effusions were noted. Also, suggestive of pulmonary edema. The patient's cephalexin was stopped. She was started on IV ceftaroline. Dr. Rodríguez was re-involved with the patient to then advised that de-escalation to oral Levaquin was appropriate and the patient has been on Levaquin's and tolerating this. Her respiratory status has improved. She no longer has erythema surrounding her right extremity wound. She will followup with podiatry as an outpatient. Her sugars have been reasonably managed. She does have chronic kidney disease (CKD) and her creatinine is at baseline. DISCHARGE DIAGNOSES INCLUDE: 1. Hospital acquired pneumonia. 2. Pleuritic chest pain, likely secondary to pneumonia. 3. Acute on chronic diastolic congestive heart failure. 4. Methicillin-Susceptible Staphylococcus aureus infection of the right lower extremity. 5. Diabetic foot ulcer. 6. Diabetes mellitus type 2. 7. Anemia of chronic disease. 8. Chronic kidney disease, stage IV. 9. Coronary artery disease. 10. Morbid obesity DISCHARGE MEDICATIONS INCLUDE: - Levaquin 750 mg every other day for a total of 5 doses over 10 days - prednisone 20 mg daily times two days and 10 mg daily times four days and then discontinue. - acetaminophen-diphenhydramine one tablet before bed as needed for sleep - allopurinol 200 mg daily - aspirin 81 mg daily - atorvastatin 40 mg daily - calcitriol 0.25 mcg daily - carvedilol 12.5 mg twice daily - ferrous sulfate 325 mg twice daily - Sofia-Nicolas one tablet daily - gabapentin 300 mg three times a day - gentamicin topically to her foot wounds twice daily - Lantus 50 units in the morning, 30 units at night - Humalog insulin sliding scale - paroxetine 40 mg daily - potassium chloride extended release daily - spironolactone 25 mg daily - torsemide 100 mg daily DISCHARGE PLAN: To followup with Dr. Cornell in one week. Followup with Dr. Calixto per his recommendations. Her activity should be as tolerated. Her diet is consistent carbohydrate.
== END 2019-04-29 12:00 | disposition home or self-care (01) | DRG 622 ==
LOC: M ED 11:40 → M ED INP 11:41 → ENRESERV 18:30 → M MS5PR 20:41 → OBSVTOIN 04-19 16:50 → M MS5PR 04-25 10:47
PROVIDERS: ADMIT Internal Medicine; ATTEND Family Medicine
PROC: 0JBQ0ZZ Excision of Right Foot Subcutaneous Tissue and Fascia, Open Approach (ICD-10-PCS; principal; 2019-04-16)
PROC: 05HB33Z Insertion of Infusion Device into Right Basilic Vein, Percutaneous Approach (ICD-10-PCS; 2019-04-18)
DX: E11.621 Type 2 diabetes mellitus with foot ulcer (principal); I50.31 Acute diastolic (congestive) heart failure; J18.9 Pneumonia, unspecified organism; L03.115 Cellulitis of right lower limb; I13.0 Hypertensive heart and chronic kidney disease with heart failure and stage 1 through stage 4 chronic kidney disease, or unspecified chronic kidney disease; Z68.41 Body mass index [BMI] 40.0-44.9, adult; L97.513 Non-pressure chronic ulcer of other part of right foot with necrosis of muscle; E11.22 Type 2 diabetes mellitus with diabetic chronic kidney disease; N18.4 Chronic kidney disease, stage 4 (severe); E66.01 Morbid (severe) obesity due to excess calories; I25.10 Atherosclerotic heart disease of native coronary artery without angina pectoris; E78.5 Hyperlipidemia, unspecified; B95.61 Methicillin susceptible Staphylococcus aureus infection as the cause of diseases classified elsewhere; D63.1 Anemia in chronic kidney disease; E11.40 Type 2 diabetes mellitus with diabetic neuropathy, unspecified; Z89.421 Acquired absence of other right toe(s); Z89.512 Acquired absence of left leg below knee; Z90.49 Acquired absence of other specified parts of digestive tract; Z79.82 Long term (current) use of aspirin; Z79.4 Long term (current) use of insulin; Z88.2 Allergy status to sulfonamides; Z88.8 Allergy status to other drugs, medicaments and biological substances; Z91.048 Other nonmedicinal substance allergy status; Y95 Nosocomial condition

== ENCOUNTER 2019-08-10 19:50 | Emergency (ER) | payer MEDICARE ==
[~2019-08-10] VITALS: Ht 177.8 cm; Wt 121.8 kg
[~2019-08-10 19:50] MED LIST changes: +AMOX500T2 PO; +CYCL-707 PO; -CYCL10TA PO; +GENT0.1C2 TOP; +K-TA10TA2 PO; +LEVA750T7 PO; +PARO20TA4 PO; +PERCTAB2 PO; +PRED20TA PO; +TORS100T PO
[2019-08-10] MEDS ORDERED: MAGN400T2 PO (20:02)
[2019-08-10 20:32] LABS: VENOUS BASE EXCESS 0.7 (-2.0-2.0); VENOUS HCO3 27.7 MEQ/L (23.0-27.0); VENOUS O2 SATURATION 88.4 % (60.0-80.0); VENOUS PARTIAL PRESSURE CO2 55.4 mmHg (38.0-50.0); VENOUS PARTIAL PRESSURE O2 58.9 mmHg (30.0-50.0); VENOUS PH 7.317 UNITS (7.330-7.430); VENOUS TOTAL CO2 29.4 MEQ/L (24.0-28.0)
[2019-08-10 20:40] LABS: HEMATOCRIT 33.3 % (36.0-47.0); HEMOGLOBIN 10.6 g/dl (12.0-15.5); MEAN CORPUSCULAR HEMOGLOBIN 30.9 pg (27.0-33.0); MEAN CORPUSCULAR HGB CONC 31.8 g/dl (32.0-36.5); MEAN CORPUSCULAR VOLUME 97.1 fl (80.0-96.0); PLATELET COUNT, AUTOMATED 173 10^3/uL (150-450); RED BLOOD COUNT 3.43 10^6/uL (4.00-5.40); WHITE BLOOD COUNT 8.9 10^3/uL (4.0-10.0)
[2019-08-10 21:06] LABS: ACETONE/KETONE 0.58 MG/DL (<2.81); ALBUMIN 3.3 GM/DL (3.2-5.2); BILIRUBIN,TOTAL 0.5 MG/DL (0.2-1.0); CALCIUM LEVEL 8.6 MG/DL (8.8-10.2); CREATININE FOR GFR 1.96 MG/DL (0.55-1.30); GLOMERULAR FILTRATION RATE 27.2 (>45); POTASSIUM SERUM 3.3 MEQ/L (3.5-5.1); TOTAL PROTEIN 6.6 GM/DL (6.4-8.2)
[2019-08-10 21:53] VITALS: BP 149/47
== END 2019-08-10 22:39 | disposition home or self-care (01) ==
LOC: M ED 19:50
DX: E11.65 Type 2 diabetes mellitus with hyperglycemia (principal); Z87.891 Personal history of nicotine dependence; Z79.4 Long term (current) use of insulin; Z79.82 Long term (current) use of aspirin; Z79.899 Other long term (current) drug therapy; Z88.2 Allergy status to sulfonamides; Z88.8 Allergy status to other drugs, medicaments and biological substances; Z88.5 Allergy status to narcotic agent; Z91.89 Other specified personal risk factors, not elsewhere classified

== ENCOUNTER → 2019-10-10 | Outpatient (CLI) | payer MEDICARE, MEDICAID ==
[~2019-10-10] MED LIST changes: +AMLO1TAB24 PO; -AMLO5TAB6 PO; +DOXY100C37 PO; +LEVO250T12 PO; +MINO100T PO; +NYST1POW9 TOP; +PANT40TA29 PO; -PANT40TA3 PO
--- NOTE | 2019-11-07 12:58 | REPMRS ---
Patient History The patient states she has not had a clinical breast exam in over a year. Patient is postmenopausal. No known family history of cancer. Digital Woman Screen Mammo: October 10, 2019 - Exam #: [id number] Bilateral CC and MLO view(s) were taken. Technologist: Layne Benentt, Technologist Prior study comparison: January 10, 2016, digital woman screen mammo performed at [facility]. June 25, 2004, bilateral screening mammogram performed at [facility]. FINDINGS: There are scattered fibroglandular densities. The Volpara volumetric breast density category is:B. There has been no change in the appearance of the mammogram from the prior studies. There is a mild amount of scattered fibroglandular density which is fairly symmetric. There is no interval development of dominant mass, architectural distortion, or grouped microcalcification suggestive of malignancy. 3-D tomosynthesis shows no additional findings. Assessment: BI-RADS/ACR category 1 mammogram. Negative Mammogram. Recommendation Routine screening mammogram of both breasts in 1 year (for women over age 40). This patient's Lifetime Breast Cancer Risk is estimated at 4.2 %. This mammogram was interpreted with the aid of an FDA-approved computer-aided dectection system. Electronically Signed By: Nima Burrows MD 11/07/19 [id number]
== END ==
LOC: M WHC 17:41
PROVIDERS: ATTEND Student in an Organized Health Care Education/Training Program
DX: Z12.31 Encounter for screening mammogram for malignant neoplasm of breast (principal); Z78.0 Asymptomatic menopausal state

== ENCOUNTER → 2019-11-05 | Outpatient (CLI) | payer MEDICARE | LOC: M LABSMTC 11:48 | PROVIDERS: ATTEND Family Medicine | DX: Z11.59 Encounter for screening for other viral diseases (principal); Z20.828 Contact with and (suspected) exposure to other viral communicable diseases | CPT/HCPCS: C9803; U0003 ==

== ENCOUNTER → 2019-11-16 | Outpatient (CLI) | payer SELFPAY | LOC: M LABSMTC 13:32 | PROVIDERS: ATTEND Pediatrics | DX: Z20.828 Contact with and (suspected) exposure to other viral communicable diseases (principal) ==

== ENCOUNTER → 2019-12-06 | Outpatient (CLI) | payer MEDICARE ==
[2019-12-06 17:57] LABS: RHEUMATOID FACTOR QUANT < 10.0 IU/ML (<15.0)
[2019-12-06 19:17] LABS: CALCIUM LEVEL 9.2 MG/DL (8.8-10.2); CREATININE FOR GFR 3.56 MG/DL (0.55-1.30); GLOMERULAR FILTRATION RATE 13.6 (>45); POTASSIUM SERUM 4.3 MEQ/L (3.5-5.1)
[2019-12-06 19:25] LABS: HEMOGLOBIN A1c 8.3 %
[2019-12-08 14:09] LABS: ANTINUCLEAR ANTIBODIES DIRECT Negative (Negative)
== END ==
LOC: M PLALAB 14:49
PROVIDERS: ATTEND Nurse Practitioner Family
DX: M79.646 Pain in unspecified finger(s) (principal); E11.65 Type 2 diabetes mellitus with hyperglycemia
CPT/HCPCS: 36415; 80048; 83036; 85652; 86038; 86140; 86431; G0463

== ENCOUNTER → 2019-12-06 | Outpatient (REF) | payer MEDICARE ==
[2019-12-06 17:46] LABS: HEMOGLOBIN A1c 8.3 %
[2019-12-06 17:58] LABS: CALCIUM LEVEL 9.6 MG/DL (8.8-10.2); CREATININE FOR GFR 3.49 MG/DL (0.55-1.30); GLOMERULAR FILTRATION RATE 13.9 (>45); POTASSIUM SERUM 4.2 MEQ/L (3.5-5.1)
== END ==
LOC: M SFHCPLAZ 14:37
PROVIDERS: ATTEND Family Medicine
DX: E11.65 Type 2 diabetes mellitus with hyperglycemia (principal)

== ENCOUNTER → 2019-12-13 | Outpatient (CLI) | payer MEDICARE | LOC: M LABSMTC 12:16 | PROVIDERS: ATTEND Pediatrics | DX: Z20.828 Contact with and (suspected) exposure to other viral communicable diseases (principal) ==

== ENCOUNTER → 2019-12-30 | Outpatient (REF) | payer MEDICARE ==
[~2019-12-30] MED LIST changes: -DOXY100C37 PO; -LEVO250T12 PO; -MINO100T PO; -NYST1POW9 TOP
[2019-12-30 18:35] LABS: PERCENT SATURATION 22.6 % (13.2-45.0)
== END ==
LOC: M LAB REF 17:04
PROVIDERS: ATTEND Nurse Practitioner Family
DX: D50.9 Iron deficiency anemia, unspecified (principal)

== ENCOUNTER 2020-01-03 14:28 | Emergency (ER) | payer MEDICARE ==
[~2020-01-03] VITALS: Ht 177.8 cm; Wt 118.2 kg
[2020-01-03] MEDS ORDERED: MINO100T PO (14:52)
[2020-01-03 15:59] LABS: BASO # 0.1 10^3/uL (0.0-0.2); BASO % 0.8 % (0.0-1.0); EOS # 0.3 10^3/uL (0.0-0.5); HEMATOCRIT 35.1 % (36.0-47.0); HEMOGLOBIN 11.2 g/dl (12.0-15.5); LYMPH # 1.7 10^3/uL (1.5-5.0); MEAN CORPUSCULAR HEMOGLOBIN 31.8 pg (27.0-33.0); MEAN CORPUSCULAR HGB CONC 31.9 g/dl (32.0-36.5); MEAN CORPUSCULAR VOLUME 99.7 fl (80.0-96.0); MONO # 0.5 10^3/uL (0.0-0.8); MONO % 6.3 % (0.0-5.0); NEUTROPHILS # 5.9 10^3/uL (1.5-8.5); NEUTROPHILS % 69.5 % (36.0-66.0); PLATELET COUNT, AUTOMATED 163 10^3/uL (150-450); RED BLOOD COUNT 3.52 10^6/uL (4.00-5.40); WHITE BLOOD COUNT 8.5 10^3/uL (4.0-10.0)
--- NOTE | 2020-01-03 16:09 | REP ---
INDICATION: RLE edema, r/o DVT. COMPARISON: 04/22/2019 TECHNIQUE: Multiple ultrasonographic images of the deep venous structures of the right thigh were obtained from the level of the common femoral vein to the popliteal vein in the longitudinal and transverse scan planes along with Doppler interrogation and color flow Doppler imaging. FINDINGS: There is no abnormal echogenic material seen within any of the visualized deep venous structures that would suggest acute thrombosis. Coaptation is unremarkable throughout. Doppler interrogation shows an expected response to respiratory variability and augmentation. The color flow Doppler images show what appears to be a normal vascular pattern throughout. The distal portions of the field of view or difficult to evaluate due to swelling. IMPRESSION: There is no ultrasonographic evidence of deep venous thrombosis involving any of the visualized deep venous structures of the right thigh as described above. Accredited by the [employer] in Vascular Peripheral Ultrasound. <Electronically signed by Brandt Christopher > 01/03/20 [id number]
[2020-01-03 16:28] LABS: ERYTHROCYTE SEDIMENTATION RATE 67 mm/hr (0-30)
[2020-01-03 17:22] LABS: BLOOD UREA NITROGEN 58 MG/DL (7-18); C REACTIVE PROTEIN QUANTITATIV 1.45 MG/DL (0.00-0.30); CALCIUM LEVEL 9.4 MG/DL (8.8-10.2); CARBON DIOXIDE LEVEL 32 MEQ/L (21-32); CHLORIDE LEVEL 101 MEQ/L (98-107); CK-MB VALUE MASS 3.2 NG/ML (<3.6); CPK CREATINE PHOSPHOKINASE 101 U/L (26-192); CREATININE FOR GFR 2.51 MG/DL (0.55-1.30); GLOMERULAR FILTRATION RATE 20.4 (>45); GLUCOSE, FASTING 196 MG/DL (70-100); MB/CK RELATIVE INDEX 3.17 (< OR =4); NT-PRO BNP 468 PG/ML (<125); POTASSIUM SERUM 3.9 MEQ/L (3.5-5.1); SODIUM LEVEL 139 MEQ/L (136-145); TROPONIN I < 0.02 NG/ML (< 0.10)
--- NOTE | 2020-01-03 18:08 | REP ---
INDICATION: leg swelling. COMPARISON: April 27, 2019 TECHNIQUE: Two views.. FINDINGS: The lungs are well inflated and free of infiltrate. The pleural angles are sharp. The heart size is normal. Pulmonary vasculature is not increased. No significant bony abnormality is seen. There are degenerative changes in the thoracic spine. IMPRESSION: No active cardiopulmonary disease seen.. <Electronically signed by Nima Burrows > 01/03/20 [id number]
--- NOTE | 2020-01-03 19:06 | REP ---
INDICATION: redness, swelling, hx osteomyelitis. COMPARISON: Comparison knee radiographs July 27, 2015.. TECHNIQUE: Four views. FINDINGS: Four views of the right tib fib demonstrate diffuse soft tissue swelling. Vascular calcification is noted. There is not reticular spurring at the superior pole of the patella. Achilles and plantar calcaneal spurring are noted. There is mild midfoot osteoarthritic spurring. No fracture or subluxation is seen. No acute bony erosive change. No soft tissue gas or opaque foreign body.. . . IMPRESSION: Diffuse soft tissue swelling and vascular calcification. No acute erosive change. No other acute bony abnormality.. <Electronically signed by Nima Burrows > 01/03/20 [id number]
[2020-01-03] MEDS ORDERED: NYSTATIN 100,000 UNITS/GM TOPICAL PWD 15 GM TOP STA (19:13)
[2020-01-03] MEDS ORDERED: DOXYCYCLINE HYCLATE 100MG TABLET PO ONE (19:15)
[2020-01-03] MEDS ORDERED: LevoFLOXacin 250 MG TABLET PO ONE (19:15)
[2020-01-03] MEDS ORDERED: NYST1POW9 TOP (19:16)
[2020-01-03] MEDS ORDERED: DOXY100C37 PO (19:16)
[2020-01-03] MEDS ORDERED: LEVO250T12 PO (19:16)
[2020-01-03 19:22] VITALS: BP 143/67
--- NOTE | 2020-01-03 19:53 | ECGEPIP ---
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
== END 2020-01-03 19:30 | disposition home or self-care (01) ==
LOC: M ED 14:28
DX: L03.115 Cellulitis of right lower limb (principal); R60.9 Edema, unspecified; B37.9 Candidiasis, unspecified; I11.0 Hypertensive heart disease with heart failure; I50.9 Heart failure, unspecified; E11.40 Type 2 diabetes mellitus with diabetic neuropathy, unspecified; N18.4 Chronic kidney disease, stage 4 (severe); F41.9 Anxiety disorder, unspecified; K21.9 Gastro-esophageal reflux disease without esophagitis; M10.9 Gout, unspecified; M86.9 Osteomyelitis, unspecified; Z79.899 Other long term (current) drug therapy; Z79.82 Long term (current) use of aspirin; Z79.4 Long term (current) use of insulin; Z88.1 Allergy status to other antibiotic agents; Z88.2 Allergy status to sulfonamides; Z88.5 Allergy status to narcotic agent; Z88.8 Allergy status to other drugs, medicaments and biological substances; Z91.048 Other nonmedicinal substance allergy status

== ENCOUNTER 2020-02-21 12:37 | Outpatient (RCR) | payer MEDICARE ==
[~2020-02-21 12:37] MED LIST changes: +DOXY100C37 PO; +LEVO250T12 PO; +MINO100T PO; +NYST1POW9 TOP
== END 2020-02-23 ==
LOC: M PT 12:37
PROVIDERS: ATTEND Family Medicine
DX: Z51.89 Encounter for other specified aftercare (principal); Z89.512 Acquired absence of left leg below knee

== ENCOUNTER → 2020-05-10 | Outpatient (CLI) | payer OTHER ==
[~2020-05-10] MED LIST changes: +GABA-282 PO; -GABA-843 PO; +ISOS1TAB35 PO; -ISOS30TA4 PO; +MAGN400T35 PO
--- NOTE | 2020-05-10 15:26 | REP ---
INDICATION: ATHSCL TOLOWA DEE-NI' ARTERIES, CLAUDICATION. COMPARISON: None. FINDINGS: Left lower extremity: Brachial peak systole: 120 mmHg Dorsalis pedis peak systole: Noncompressible mmHg MINE TECHNICIAN peak systole: Noncompressible mmHg CEASAR: NA CUSTOMER SUPPORT EXECUTIVE: 163 velocity, triphasic phasicity Profunda: Week 114 velocity, biphasic phasicity SFA prox: 124 velocity, triphasic phasicity SFA mid: 130 velocity, triphasic phasicity SFA dist: 128 velocity, triphasic phasicity Pop: 98 velocity, biphasic phasicity JAMEL prox: NA velocity, NA phasicity Tib/P tr: NA velocity, NA phasicity MINE TECHNICIAN pr: NA velocity, NA phasicity MINE TECHNICIAN dst: NA velocity, NA phasicity JAMEL dst: NA velocity, NA phasicity Right lower extremity: Brachial peak systole: 120 mmHg Dorsalis pedis peak systole: Noncompressible mmHg MINE TECHNICIAN peak systole: Noncompressible mmHg CEASAR: NA CUSTOMER SUPPORT EXECUTIVE: 164 velocity, triphasic phasicity Profunda: 148 velocity, triphasic phasicity SFA prox: 131 velocity, biphasic phasicity SFA mid: 154 velocity, monophasic phasicity SFA dist: 40 velocity, monophasic phasicity Pop: 113 velocity, monophasic phasicity JAMEL prox: 93 velocity, monophasic phasicity Tib/P tr: 100 velocity, monophasic phasicity MINE TECHNICIAN pr: 64 velocity, monophasic phasicity MINE TECHNICIAN dst: 79 velocity, monophasic phasicity JAMEL dst: 104 velocity, monophasic phasicity IMPRESSION: Right lower extremity: There is moderate atheromatous plaque throughout the extremity. There are triphasic waveforms at the CUSTOMER SUPPORT EXECUTIVE and profundus and biphasic waveform cyst at the proximal SFA. The waveforms distal to this are monophasic throughout. The CEASAR is noncompressible due to heavy atheromatous calcification. No significant stenosis is identified. Left lower extremity: The CEASAR is noncompressible because of heavily calcified atheroma. There is mild atheromatous plaque throughout with triphasic and biphasic waveforms from the CUSTOMER SUPPORT EXECUTIVE to the popliteal. There is a [id number] amputation. No significant stenosis is identified. No significant stenosis is identified. <Electronically signed by Kenny Mccarthy > 05/10/20 [id number]
== END ==
LOC: M RAD 12:49
PROVIDERS: ATTEND Physician Assistant
DX: I70.213 Atherosclerosis of native arteries of extremities with intermittent claudication, bilateral legs (principal); Z89.512 Acquired absence of left leg below knee

== ENCOUNTER → 2020-05-14 | Outpatient (REF) | payer MEDICARE, OTHER ==
[2020-05-14 18:57] LABS: CREATININE CLEARANCE, URINE 24.4 ML/MIN (75-115); CREATININE, URINE 39.8 MG/DL
== END ==
LOC: M LAB REF 17:01
PROVIDERS: ATTEND Nurse Practitioner Family
DX: N18.4 Chronic kidney disease, stage 4 (severe) (principal)

== ENCOUNTER → 2020-07-20 | Outpatient (REF) | payer OTHER ==
[2020-07-20 17:42] LABS: BACTERIA, URINE AUTO NEGATIVE (NEGATIVE); RBC, URINE AUTO 5 /HPF (0-3); SQUAMOUS EPITHELIAL CELL UR AU 1 /HPF (0-6); WBC, URINE AUTO 2 /HPF (0-3)
[2020-07-20 18:30] LABS: HEPATITIS B CORE ANTIBODY IGM NEGATIVE (NEGATIVE); HEPATITIS B SURFACE ANTIBODY NEGATIVE (POSITIVE); HEPATITIS B SURFACE ANTIGEN NEGATIVE (NEGATIVE)
[2020-07-24 08:44] LABS: CHOLESTEROL LEVEL 111 MG/DL (<200); CHOLESTEROL RISK RATIO 2.581 (<5); HDL CHOLESTEROL 43 MG/DL (>40); LDL CHOLESTEROL 41 MG/DL (<100); NON-HDL-C 68 MG/DL; TRIGLYCERIDES LEVEL 137 MG/DL (<150)
== END ==
LOC: M LAB REF 16:59
PROVIDERS: ATTEND Nurse Practitioner Family
DX: N18.5 Chronic kidney disease, stage 5 (principal); R31.9 Hematuria, unspecified

== ENCOUNTER → 2020-07-26 | Outpatient (REF) | payer MEDICARE ==
[~2020-07-26] MED LIST changes: +DOXY-443 PO; -DOXY100C37 PO; +HYDR-3363 PO; +IBUP-1022 PO; -LEVO250T12 PO; +LEVO250T3 PO; +PARO40TA2 PO; +POTA-151 PO; +PRED10TA2 PO; +VALT1TAB PO
[2020-07-26 19:41] LABS: HEMOGLOBIN A1c 6.8 %
== END ==
LOC: M SFHCPLAZ 14:37
PROVIDERS: ATTEND Family Medicine
DX: E11.22 Type 2 diabetes mellitus with diabetic chronic kidney disease (principal)
CPT/HCPCS: 36415; 83036; G0463

== ENCOUNTER → 2020-08-24 | Outpatient (REF) | payer MEDICARE ==
[~2020-08-24] MED LIST changes: -DOXY-443 PO; +DOXY1CAP62 PO; -HYDR-3363 PO; -IBUP-1022 PO; +LEVO250T12 PO; -LEVO250T3 PO; -PARO40TA2 PO; -POTA-151 PO; -PRED10TA2 PO; -VALT1TAB PO
== END ==
LOC: M LAB REF 16:46
PROVIDERS: ATTEND Internal Medicine Nephrology
DX: N39.0 Urinary tract infection, site not specified (principal)

== ENCOUNTER 2020-10-20 19:10 | Emergency (ER) | payer OTHER ==
[~2020-10-20] VITALS: Ht 177.8 cm; Wt 122.7 kg
[2020-10-20 20:42] LABS: BASO # 0.1 10^3/uL (0.0-0.2); BASO % 0.8 % (0.0-1.0); EOS # 0.2 10^3/uL (0.0-0.5); EOS % 2.5 % (0.0-3.0); HEMATOCRIT 32.4 % (36.0-47.0); HEMOGLOBIN 10.6 g/dl (12.0-15.5); LYMPH # 1.9 10^3/uL (1.5-5.0); LYMPH % 20.5 % (24.0-44.0); MEAN CORPUSCULAR HGB CONC 32.7 g/dl (32.0-36.5); MEAN CORPUSCULAR VOLUME 100.9 fl (80.0-96.0); MONO # 0.7 10^3/uL (0.0-0.8); NEUTROPHILS # 6.3 10^3/uL (1.5-8.5); NEUTROPHILS % 67.8 % (36.0-66.0); PLATELET COUNT, AUTOMATED 171 10^3/uL (150-450); RED BLOOD COUNT 3.21 10^6/uL (4.00-5.40); WHITE BLOOD COUNT 9.2 10^3/uL (4.0-10.0)
--- NOTE | 2020-10-20 20:45 | ECGEPIP ---
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
[2020-10-20 21:17] LABS: BLOOD UREA NITROGEN 32 MG/DL (7-18); CALCIUM LEVEL 9.4 MG/DL (8.8-10.2); CARBON DIOXIDE LEVEL 29 MEQ/L (21-32); CHLORIDE LEVEL 105 MEQ/L (98-107); CK-MB VALUE MASS 2.4 NG/ML (<3.6); CPK CREATINE PHOSPHOKINASE 59 U/L (26-192); CREATININE FOR GFR 2.67 MG/DL (0.55-1.30); GLOMERULAR FILTRATION RATE 18.9 (>45); GLUCOSE, FASTING 252 MG/DL (70-100); MAGNESIUM LEVEL 2.3 MG/DL (1.8-2.4); MB/CK RELATIVE INDEX 4.07 (< OR =4); SODIUM LEVEL 136 MEQ/L (136-145); TROPONIN I < 0.02 NG/ML (< 0.10)
[2020-10-20] MEDS ORDERED: MORPHINE 4 MG/ML 1ML VIAL/SYRINGE (J2270) IV ONE (21:25)
--- NOTE | 2020-10-20 22:15 | REPVR ---
PROCEDURE INFORMATION: Exam: XR Chest Exam date and time: 10/20/20 (9:05pm) Age: 70 years old Clinical indication: SOB TECHNIQUE: Imaging protocol: Portable CXR Views: 1 view COMPARISON: Chest films of 01/03/20 FINDINGS: Lungs: Unremarkable. No consolidation. Pleural spaces: No pleural effusions. No pneumothorax. Mildly elevated right hemidiaphragm unchanged. Heart/Mediastinum: Unremarkable. No cardiomegaly. Bones/joints: Unremarkable. IMPRESSION: No acute findings. Electronically signed by: Ximena Del Castillo On 10/20/2020 22:15:18 PM
[2020-10-20] MEDS ORDERED: LEVEMIR (INSULIN DETEMIR) 1 UNITS/0.01ML SC ONE (22:50)
--- NOTE | 2020-10-20 23:31 | REPVR ---
PROCEDURE INFORMATION: Exam: CT Cervical Spine Without Contrast Exam date and time: 10/20/2020 10:25 PM Age: 70 years old Clinical indication: Other: Radicular pain in the bilateral upper extremities TECHNIQUE: Imaging protocol: Computed tomography images of the cervical spine without contrast. Radiation optimization: All CT scans at this facility use at least one of these dose optimization techniques: automated exposure control; mA and/or kV adjustment per patient size (includes targeted exams where dose is matched to clinical indication); or iterative reconstruction. COMPARISON: CT Chest without contrast 04/23/2019 9:13 AM FINDINGS: Bones/joints: No acute cervical spine fracture. Slight anterolisthesis of C4 on C5. The facet alignment is preserved bilaterally. The occipital condyles and C1-C2 articulations appear intact. The left C2-C3 facets appear fused. Mild levoscoliosis of the cervical spine. Discs/Spinal canal/Neural foramina: Degenerative changes are visualized at multiple cervical levels. A significant decrease of disc height is identified at C5-C6 with sclerotic changes and anterior bridging osteophyte. Facet arthropathy is identified at multiple cervical levels. Varying degrees of neural foraminal narrowing are identified at multiple cervical levels. Thyroid: Left thyroid nodules are visualized, some which are calcified. One of these nodules measures 1.9 cm. Lungs: No pneumothorax, as visualized. Vasculature: Atherosclerotic changes. Soft tissues: No significant prevertebral soft tissue swelling. IMPRESSION: 1. No acute cervical spine fracture. 2. Slight anterolisthesis of C4 on C5. Mild levoscoliosis of the cervical spine. 3. Degenerative changes are visualized at multiple cervical levels. Varying degrees of neural foraminal narrowing are identified at multiple cervical levels. These findings can be further evaluated with a follow-up MRI. 4. Left thyroid nodules are visualized, some which are calcified. Follow-up ultrasonography. COMMENTS: Consistent with the [employer]'s Incidental Findings Committee white paper (J Am Carina Radiol 2015): In patients aged 35 years and older with an incidental thyroid nodule equal to or greater than 1.[address], MRI or extrathyroidal US, further evaluation with dedicated thyroid US is recommended for patients with normal life expectancy and without comorbidities. For smaller nodules without suspicious features, no further evaluation or follow up is recommended. Electronically signed by: Asad Carolina On 10/20/2020 23:31:03 PM
[2020-10-21] MEDS ORDERED: TRAM50TA2 PO (00:17)
[2020-10-21] MEDS ORDERED: IBUP-1022 PO (00:17)
[2020-10-21] MEDS ORDERED: IBUPROFEN 600MG TAB PO ONE (00:40)
[2020-10-21] MEDS ORDERED: traMADol 50 MG TAB PO ONE (00:40)
[2020-10-21 01:15] VITALS: BP 130/60
--- NOTE | 2020-10-21 08:10 | ED PDOC ---
Post-Departure Follow-Up ct c spine faxed to dr lane for fu Rosas Saxena MD Oct 21, 2020 08:10
[2020-10-22] MEDS ORDERED: VALT1TAB PO (16:58)
== END 2020-10-21 01:39 | disposition home or self-care (01) ==
LOC: M ED 19:10
DX: R09.1 Pleurisy (principal); E04.1 Nontoxic single thyroid nodule; N18.6 End stage renal disease; Z99.2 Dependence on renal dialysis; I25.10 Atherosclerotic heart disease of native coronary artery without angina pectoris; E11.9 Type 2 diabetes mellitus without complications; I10 Essential (primary) hypertension; E78.5 Hyperlipidemia, unspecified; F32.9 Major depressive disorder, single episode, unspecified; Z95.5 Presence of coronary angioplasty implant and graft; Z82.49 Family history of ischemic heart disease and other diseases of the circulatory system; Z79.82 Long term (current) use of aspirin; Z79.4 Long term (current) use of insulin; Z79.899 Other long term (current) drug therapy; Z88.2 Allergy status to sulfonamides; Z88.5 Allergy status to narcotic agent; Z88.8 Allergy status to other drugs, medicaments and biological substances; Z91.89 Other specified personal risk factors, not elsewhere classified
CPT/HCPCS: 71045; 72125; 80048; 82550; 82553; 83735; 84484; 85025; 87798; 93005; 96374; 99285; J2270

== ENCOUNTER 2020-10-22 12:35 | Emergency (ER) | payer OTHER ==
[~2020-10-22] VITALS: Ht 177.8 cm; Wt 120.0 kg
[~2020-10-22 12:35] MED LIST changes: +DOXY-443 PO; -DOXY1CAP62 PO; +IBUP-1022 PO; -LEVO250T12 PO; +LEVO250T3 PO
[2020-10-22] MEDS ORDERED: MORPHINE 4 MG/ML 1ML VIAL/SYRINGE (J2270) IV ONE (13:40)
[2020-10-22] MEDS ORDERED: valACYclovir HCL 500 MG TAB PO ONE (13:40)
[2020-10-22] MEDS ORDERED: ONDANSETRON 4MG/2ML VIAL IV ONE (13:40)
[2020-10-22 15:35] LABS: BASO # 0.1 10^3/uL (0.0-0.2); BASO % 0.8 % (0.0-1.0); EOS # 0.3 10^3/uL (0.0-0.5); EOS % 3.7 % (0.0-3.0); HEMATOCRIT 34.9 % (36.0-47.0); HEMOGLOBIN 11.1 g/dl (12.0-15.5); LYMPH # 1.1 10^3/uL (1.5-5.0); LYMPH % 15.4 % (24.0-44.0); MEAN CORPUSCULAR HEMOGLOBIN 32.6 pg (27.0-33.0); MEAN CORPUSCULAR HGB CONC 31.8 g/dl (32.0-36.5); MEAN CORPUSCULAR VOLUME 102.3 fl (80.0-96.0); MONO # 0.6 10^3/uL (0.0-0.8); MONO % 8.5 % (2.0-8.0); NEUTROPHILS # 5.1 10^3/uL (1.5-8.5); NEUTROPHILS % 69.7 % (36.0-66.0); PLATELET COUNT, AUTOMATED 166 10^3/uL (150-450); RED BLOOD COUNT 3.41 10^6/uL (4.00-5.40); WHITE BLOOD COUNT 7.3 10^3/uL (4.0-10.0)
[2020-10-22 16:19] LABS: CALCIUM LEVEL 9.6 MG/DL (8.8-10.2); CREATININE FOR GFR 2.82 MG/DL (0.55-1.30); GLOMERULAR FILTRATION RATE 17.7 (>45); POTASSIUM SERUM 6.2 MEQ/L (3.5-5.1)
[2020-10-22] MEDS ORDERED: SOD POLYSTYRENE SULFONATE SUSP 15 GM/60 ML UD PO ONE (16:40)
[2020-10-22] MEDS ORDERED: PERCOCET 5MG/325MG TAB PO ONE (16:50)
[2020-10-22] MEDS ORDERED: VALT1TAB PO (16:58)
[2020-10-22 17:30] VITALS: BP 134/80
[2020-11-10] MEDS ORDERED: POTA-151 PO (13:10)
[2020-12-06] MEDS ORDERED: DOXY-443 PO (19:08)
== END 2020-10-22 17:50 | disposition home or self-care (01) ==
LOC: EDBD 12:35 → M ED 12:35
DX: B02.9 Zoster without complications (principal); E87.5 Hyperkalemia; I25.2 Old myocardial infarction; I10 Essential (primary) hypertension; E10.42 Type 1 diabetes mellitus with diabetic polyneuropathy; F41.9 Anxiety disorder, unspecified; K21.9 Gastro-esophageal reflux disease without esophagitis; Z99.2 Dependence on renal dialysis; Z98.61 Coronary angioplasty status; Z79.4 Long term (current) use of insulin; Z79.82 Long term (current) use of aspirin; Z79.899 Other long term (current) drug therapy; Z88.2 Allergy status to sulfonamides; Z88.5 Allergy status to narcotic agent; Z88.8 Allergy status to other drugs, medicaments and biological substances; Z91.89 Other specified personal risk factors, not elsewhere classified
CPT/HCPCS: 80048; 85025; 96374; 96375; 99284; J2270; J2405

== ENCOUNTER 2020-11-10 10:46 | Inpatient (IN) | payer OTHER, MEDICARE ==
[~2020-11-10] VITALS: Ht 177.8 cm; Wt 122.7 kg
[~2020-11-10 10:46] MED LIST changes: -DOXY-443 PO; +DOXY1CAP62 PO; +LEVO250T12 PO; -LEVO250T3 PO; +VALT1TAB PO; +predniSONE 20 MG TAB PO ONE
[2020-11-10] MEDS ORDERED: PRED10TA2 PO (10:58)
[2020-11-10 12:34] LABS: BASO # 0.1 10^3/uL (0.0-0.2); BASO % 0.8 % (0.0-1.0); EOS # 0.3 10^3/uL (0.0-0.5); EOS % 3.4 % (0.0-3.0); HEMATOCRIT 33.6 % (36.0-47.0); HEMOGLOBIN 10.7 g/dl (12.0-15.5); LYMPH # 1.2 10^3/uL (1.5-5.0); LYMPH % 15.6 % (24.0-44.0); MEAN CORPUSCULAR HEMOGLOBIN 33.8 pg (27.0-33.0); MEAN CORPUSCULAR HGB CONC 31.8 g/dl (32.0-36.5); MONO # 0.6 10^3/uL (0.0-0.8); MONO % 8.3 % (2.0-8.0); NEUTROPHILS # 5.2 10^3/uL (1.5-8.5); NEUTROPHILS % 71.2 % (36.0-66.0); PLATELET COUNT, AUTOMATED 178 10^3/uL (150-450); RED BLOOD COUNT 3.17 10^6/uL (4.00-5.40); WHITE BLOOD COUNT 7.4 10^3/uL (4.0-10.0)
[2020-11-10 12:46] LABS: RSV AMPLIFICATION NEGATIVE (NEGATIVE)
--- NOTE | 2020-11-10 12:51 | REP ---
INDICATION: ?fistula function COMPARISON: None. TECHNIQUE: Real-time sonographic evaluation of a left upper extremity arteriovenous fistula with Doppler FINDINGS: The peak systolic velocity of the left mid brachial artery is 143 centimeters/second and biphasic. The peak systolic velocity of the left brachial artery distal portion but proximal to the arteriovenous fistula is 112 centimeters/second and biphasic The peak systolic velocity in the ulnar artery is 65.9 centimeters/second and biphasic The peak systolic velocity in the radial artery is 116 centimeter/second and triphasic The peak systolic velocity of the AV fistula at the anastomosis is 237 centimeters/second and is biphasic. The peak systolic velocity in the cephalic vein 1 cm distal to the anastomosis is 186 centimeter/second and is biphasic. The same vessel 3 cm distal to the anastomosis is occluded and there is occlusion also at the mid and proximal humeral level. IMPRESSION: As above <Electronically signed by Fernando Diaz > 11/10/20 [id number]
[2020-11-10 12:53] LABS: MAGNESIUM LEVEL 2.1 MG/DL (1.8-2.4); PHOSPHORUS LEVEL 3.6 MG/DL (2.5-4.9)
[2020-11-10] MEDS ORDERED: DEXTROSE 50% 50 ML SYRINGE IV PRN ×2 (12:55→17:40)
[2020-11-10] MEDS ORDERED: GLUCAGON INJ 1MG VIAL SC PRN ×2 (12:55→17:40)
[2020-11-10] MEDS ORDERED: GLUCOSE 4GM CHEW TABLET PO PRN ×2 (12:55→17:40)
[2020-11-10] MEDS ORDERED: ACETAMINOPHEN TAB 650MG DOSE (2X325MG) PO PRN (12:55)
[2020-11-10] MEDS ORDERED: POTA20TA6 PO (13:10)
[2020-11-10] MEDS ORDERED: TORS20TA2 PO (13:10)
[2020-11-10] MEDS ORDERED: PARO40TA2 PO (13:10)
[2020-11-10] MEDS ORDERED: HYDR-3363 PO (13:10)
[2020-11-10] MEDS ORDERED: SPIR-10 PO (13:10)
[2020-11-10] MEDS ORDERED: HOME MED LIST COMPLETE! XX SCH (13:20)
--- NOTE | 2020-11-10 13:40 | HPEPDOC ---
[facility] Medical History & Physical Date of Admission Nov 10, 2020 Date of Service: Nov 10, 2020 Primary Care Physician: Jeremy Cornell MD Attending Physician: MELY ZAPATA DO History and Physical CHIEF COMPLAINT: Clotted off fistula HISTORY OF PRESENT ILLNESS: Patient is a 70-year-old female who presented to the emergency department today due to her fistula not working. Patient states that she gets dialysis on a Thursday, Thursday, and Thursday schedule and was scheduled to get dialysis yesterday but was unable to due to her fistula clotting off. Patient states she did have a successful dialysis treatment on Thursday. Patient states that she went to the vascular surgery office where an ultrasound was performed on stating that the fistula was patent however, on Thursday they were unable to get any vascular access and she was unable to get dialysis. Patient said she was instructed to come to the emergency department. Patient states that other than dealing with recovering from shingles on her upper right back she is otherwise in her normal state of health today. Patient does not have any other complaints at this time. PAST MEDICAL HISTORY: 1. End-stage renal disease secondary to diabetic nephropathy. 2. Coronary artery disease. 3. Heart failure with preserved ejection fraction with last ejection fraction being documented at 70%. 4. Type 2 diabetes with nephropathy, retinopathy, and neuropathy 5. Diabetic neuropathy with chronic foot ulcerations 6. Hypertension 7. Charcot foot 8. Hyperlipidemia 9. Inflammatory anemia 10. Depression 11. Fibromyalgia 12. Degenerative joint disease/OA PAST SURGICAL HISTORY: 1. Tonsillectomy. 2. D&C x2. 3. x2. 4. "Spine cyst" removed in the 5. Hysterectomy in 1993 5. Right carpal tunnel 6. Cholecystectomy 7. Multiple cardiac caths 8. Multiple toe amputations 9. Left BKA 10. Appendectomy SOCIAL HISTORY: Patient denies smoking cigarettes and drinking alcohol. Patient also denies illicit drug use. 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 Mother is alive at 96 and has hypertension and hyperlipidemia ALLERGIES: Please see below. REVIEW OF SYSTEMS: General: Patient denies fevers HEENT: Patient denies headaches Cardiovascular: Patient denies chest pain Respiratory: Patient denies shortness of breath, cough GI: Patient denies abdominal pain, nausea, vomiting, diarrhea : Patient denies increased frequency or pain with urination Extremities: Patient denies swelling or pain in extremities Neurological: Patient denies numbness or tingling in legs Skin: Patient denies any new rashes or lesions. Hematologic: Patient denies any easy bruising. Lymphatic: Patient denies any lumps lumps or bumps in neck, axilla, or groin HOME MEDICATIONS: Please see below. PHYSICAL EXAMINATION: VITAL SIGNS: Temperature 97.8, pulse 63, respiratory rate 18, blood pressure 148/65, pulse oximetry 98% on room air. General: Alert and oriented female patient is sitting up in bed. Patient did not appear to be in acute distress. HEENT: Normocephalic, atraumatic, moist mucous membranes. Neck: No lymphadenopathy or thyromegaly Cardiac: Regular rate and rhythm, no murmurs, normal S1, normal S2 Pulm: Clear to auscultation bilaterally. No wheezes, rhonchi, rales Abd: Nondistended, nontender to palpation, normal bowel sounds Ext: Patient has BKA on left foot with prosthesis in place Neuro: Patient was able to move all 4 extremities on command patient reported diminished sensation in her right lower extremity secondary to neuropathy. Equal sensation the upper extremities Skin: Skin of the right upper back shows healing rash that appeared crusted over with some surrounding areas of erythema LABORATORY DATA: See below. IMAGING: Upper extremity arterial ultrasound performed in the left arm on 11/10/2020 was reported to show peak systolic velocity of the AV fistula at the anastomosis is 237 cm/s and is biphasic. The peak systolic velocity in the cephalic vein 1 cm distal to the anastomosis is 186 cm/s and is biphasic. Same vessel 3 cm distal to the anastomosis is occluded and there is occlusion also at the mid and proximal humeral level. MICROBIOLOGY: Please see below. ASSESSMENT: 70-year-old female presented to the hospital with a clotted AV fistula cannot be used for dialysis who is in need for dialysis. . PLAN: 1. Clotted AV fistula. I have spoken with vascular surgery who plans to take the patient to the operating room later today for thrombectomy. Patient last oral intake was at 8 AM which she says was only black coffee. Patient has history of end-stage renal disease as well as type 2 diabetes mellitus which is insulin-dependent. Patient has a class 3 risk of due to the perioperative treatment with insulin, preoperative creatinine being greater than 2, her history of congestive heart failure. Patient will need the surgery in order to be able to get dialysis. Patient will be going to the operating room later today. Patient is otherwise optimized for surgery. 2. End-stage renal disease. Patient missed dialysis on Thursday due to the clotted fistula. Patient will be getting dialysis hopefully after the fistula is open back up. I have contacted Dr. Dong who will see the patient and give the patient dialysis today. 3. Type 2 diabete mellitus, insulin-dependent. Patient will be placed on sliding scale insulin and will continue with her home basal insulin which is Lantus 40 units twice daily. This has been switched to Levemir 40 units twice daily. 4. Heart failure with preserved ejection fraction. Patient does not appear in exacerbation today. We will continue to monitor. 5. Hyperkalemia. This is most likely secondary to missed dialysis and once the patient is able to get dialysis today, this should be resolved. 6. Hypertension. We will continue to monitor the patient's blood pressure closely and continue oral medications. 7. Diabetic neuropathy. We will continue the patient's gabapentin once the patient is out of surgery. 8. DVT prophylaxis teds and sequentials for now and we can start heparin after surgery 9. CODE STATUS: Full code Disposition: Patient be admitted to the medical medical surgical floor. Patient will be discharged after 2 midnight stay. Vital Signs Vital Signs Date Time Temp Pulse Resp B/P (MAP) Pulse Ox O2 Delivery O2 Flow Rate FiO2 11/10/20 12:50 63 18 98 Room Air 11/10/20 12:40 148/65 (92) 11/10/20 10:47 97.8 Laboratory Data Labs 24H Laboratory Tests 2 11/10/20 11:55: Coronavirus (COVID-19)(PCR) NEGATIVE, Influenza Type A (RT-PCR) NEGATIVE, Influenza Type B (RT-PCR) NEGATIVE, Respiratory Syncytial Virus (PCR) NEGATIVE 11/10/20 12:01: Immature Granulocyte % (Auto) 0.7, Neutrophils (%) (Auto) 71.2H, Lymphocytes (%) (Auto) 15.6L, Monocytes (%) (Auto) 8.3H, Eosinophils (%) (Auto) 3.4H, Basophils (%) (Auto) 0.8, Neutrophils # (Auto) 5.2, Lymphocytes # (Auto) 1.2L, Monocytes # (Auto) 0.6, Eosinophils # (Auto) 0.3, Basophils # (Auto) 0.1, Nucleated Red Blood Cells % (auto) 0.0, Phosphorus Level 3.6, Magnesium Level 2.1 11/10/20 12:03: POC Glucose (Misc Panel) 198H, POC Sodium (Misc Panel) 137, POC Potassium (Misc Panel) 5.2H, POC Chloride (Misc Panel) 105, POC Total CO2 (Misc Panel) 26.0, POC Blood Urea Nitrogen (Misc Panel 49H, POC Ionized Calcium (Misc Panel) 5.1, POC Creatinine (Misc Panel) 2.3H, POC Hematocrit (Misc Panel) 31.0L CBC/BMP Laboratory Tests 11/10/20 12:01 Home Medications Scheduled Allopurinol (Allopurinol) 100 Mg Tablet, 100 MG PO QHS Aspirin (Aspirin EC) 81 Mg Tablet.dr, 81 MG PO DAILY Atorvastatin Calcium (Atorvastatin Calcium) 40 Mg Tab, 40 MG PO QHS Calcitriol (Calcitriol) 0.25 Mcg Capsule, 0.25 MCG PO DAILY Carvedilol (Coreg) 12.5 Mg Tab, 12.5 MG PO BID Ferrous Gluconate (Ferrous Gluconate) 324 Mg Tablet, 324 MG PO BID Folic Acid/Vit B Complex and C (Sofia-Nicolas Tablet) 0.8 Mg Tablet, 1 TAB PO DAILY Gabapentin (Gabapentin) 300 Mg Capsule, 600 MG PO TID Insulin Glargine (Lantus) 100 Unit/1 Ml Vial, 40 UNITS SC QAM Insulin Glargine (Lantus) 100 Unit/1 Ml Vial, 40 UNITS SC QHS Insulin Human Lispro (Humalog) 100 Unit/1 Ml Vial, 1 DOSE SC AC PER SLIDING SCALE Paroxetine HCl (Paroxetine HCl) 40 Mg Tablet, 40 MG PO DAILY Prednisone (Prednisone) 10 Mg Tablet, 60 MG PO DAILY 60MG DAILY FOR 4 DAYS THEN 40MG DAILY FOR 4 DAYS THEN 20MG DAILY FOR 4 DAYS Spironolactone (Spironolactone) 25 Mg Tablet, 25 MG PO DAILY Scheduled PRN Acetaminophen/Diphenhydramine (Percogesic Extra Str Caplet) 1 Each Tablet, 1 TAB PO QHS PRN for SLEEP Hydroxyzine HCl (Hydroxyzine HCl) 25 Mg Tablet, 25 MG PO BID PRN for itching Allergies Coded Allergies: citric acid (Verified Allergy, Intermediate, HIVES/ITCHING, 05/19/18) sodium bicarbonate (Verified Allergy, Intermediate, HIVES/ITCHING, 05/19/18) Sulfa (Sulfonamide Antibiotics) (Verified Allergy, Mild, 06/28/18) rash TAPE (Verified Allergy, Mild, RASH, 10/22/20) hydrocodone (Verified Adverse Reaction, Mild, ITCHES, 10/22/20) A-FIB/CHADSVASC A-FIB History Current/History of A-Fib/PAF?: No MELY ZAPATA DO Nov 10, 2020 13:40
[2020-11-10] MEDS ORDERED: HEPARIN SOD (PORCINE) 5000UNITS/ML 1ML VIAL/SYRINGE As Ordered ONE ×2 (13:50→15:31)
[2020-11-10] MEDS ORDERED: BUPIVACAINE/EPIN 0.5% 30 ML VIAL As Ordered ONE (13:50)
[2020-11-10] MEDS ORDERED: LIDOCAINE 1% SDV 30ML VIAL As Ordered ONE (13:50)
[2020-11-10] MEDS ORDERED: ceFAZolin 1GM VIAL (J0690 PER 500MG) As Ordered ONE (14:19)
--- NOTE | 2020-11-10 14:19 | CR.PDOC ---
General Date of Consultation: Nov 10, 2020 Referring Provider: Daniella Dong MD Primary Care Physician: MELY ZAPATA DO Consultation REASON FOR CONSULTATION/CHIEF COMPLAINT: Clotted left arm av fistula HISTORY OF PRESENT ILLNESS: patient presented to ER with clotted av fistula. last dialysis was on Thursday11/07/20. patient was told by her child development consultant to come to ER. patient states she started dialysis in July 2020 and always had low flows in fistula. fistula was placed approximately 2 years ago, as per patient. ALLERGIES: Please see below. HOME MEDICATIONS: Please see below. PAST MEDICAL HISTORY: see H&P PAST SURGICAL HISTORY: see H&P FAMILY HISTORY: see H&P SOCIAL HISTORY: see H&P REVIEW OF SYSTEMS: All grossly negative except as noted above PHYSICAL EXAMINATION: VITAL SIGNS: Please see below. GENERAL APPEARANCE: alert, not in distress HEENT: supple RESPIRATORY: CTA B/L CARDIOVASCULAR: RRR ABDOMEN: soft, nd, nt EXTREMITIES: FROM, left arm av fistula with pulsation just above antecubital process NEUROLOGICAL: grossly intact PSYCHIATRIC: alert and cooperative LABORATORY DATA: Please see below. ASSESSMENT/PLAN: 70 y/o female with dm, esrd on dialysis with clotted left arm av fistula. patient for OR for left arm av fistula thrombectomy and possible angioplasty. Vital Signs/I&O Vital Signs Date Time Temp Pulse Resp B/P (MAP) Pulse Ox O2 Delivery O2 Flow Rate FiO2 11/10/20 13:38 67 20 161/72 (101) 98 Room Air 11/10/20 10:47 97.8 Laboratory Data Labs 24H Laboratory Tests 2 11/10/20 11:55: Coronavirus (COVID-19)(PCR) NEGATIVE, Influenza Type A (RT-PCR) NEGATIVE, Influenza Type B (RT-PCR) NEGATIVE, Respiratory Syncytial Virus (PCR) NEGATIVE 11/10/20 12:01: Immature Granulocyte % (Auto) 0.7, Neutrophils (%) (Auto) 71.2H, Lymphocytes (%) (Auto) 15.6L, Monocytes (%) (Auto) 8.3H, Eosinophils (%) (Auto) 3.4H, Basophils (%) (Auto) 0.8, Neutrophils # (Auto) 5.2, Lymphocytes # (Auto) 1.2L, Monocytes # (Auto) 0.6, Eosinophils # (Auto) 0.3, Basophils # (Auto) 0.1, Nucleated Red Blood Cells % (auto) 0.0, Phosphorus Level 3.6, Magnesium Level 2.1 11/10/20 12:03: POC Glucose (Misc Panel) 198H, POC Sodium (Misc Panel) 137, POC Potassium (Misc Panel) 5.2H, POC Chloride (Misc Panel) 105, POC Total CO2 (Misc Panel) 26.0, POC Blood Urea Nitrogen (Misc Panel 49H, POC Ionized Calcium (Misc Panel) 5.1, POC Creatinine (Misc Panel) 2.3H, POC Hematocrit (Misc Panel) 31.0L CBC/BMP Laboratory Tests 11/10/20 12:01 Allergies Coded Allergies: citric acid (Verified Allergy, Intermediate, HIVES/ITCHING, 05/19/18) sodium bicarbonate (Verified Allergy, Intermediate, HIVES/ITCHING, 05/19/18) Sulfa (Sulfonamide Antibiotics) (Verified Allergy, Mild, 06/28/18) rash TAPE (Verified Allergy, Mild, RASH, 10/22/20) hydrocodone (Verified Adverse Reaction, Mild, ITCHES, 10/22/20) Home Medications Scheduled Allopurinol (Allopurinol) 100 Mg Tablet, 100 MG PO QHS, (Reported) Aspirin (Aspirin EC) 81 Mg Tablet.dr, 81 MG PO DAILY, (Reported) Atorvastatin Calcium (Atorvastatin Calcium) 40 Mg Tab, 40 MG PO QHS, (Reported) Calcitriol (Calcitriol) 0.25 Mcg Capsule, 0.25 MCG PO DAILY, (Reported) Carvedilol (Coreg) 12.5 Mg Tab, 12.5 MG PO BID, (Reported) Ferrous Gluconate (Ferrous Gluconate) 324 Mg Tablet, 324 MG PO BID, (Reported) Folic Acid/Vit B Complex and C (Sofia-Nicolas Tablet) 0.8 Mg Tablet, 1 TAB PO DAILY, (Reported) Gabapentin (Gabapentin) 300 Mg Capsule, 600 MG PO TID, (Reported) Insulin Glargine (Lantus) 100 Unit/1 Ml Vial, 40 UNITS SC QAM, (Reported) Insulin Glargine (Lantus) 100 Unit/1 Ml Vial, 40 UNITS SC QHS, (Reported) Insulin Human Lispro (Humalog) 100 Unit/1 Ml Vial, 1 DOSE SC AC, (Reported) PER SLIDING SCALE Paroxetine HCl (Paroxetine HCl) 40 Mg Tablet, 40 MG PO DAILY, (Reported) Prednisone (Prednisone) 10 Mg Tablet, 60 MG PO DAILY, (Reported) 60MG DAILY FOR 4 DAYS THEN 40MG DAILY FOR 4 DAYS THEN 20MG DAILY FOR 4 DAYS Spironolactone (Spironolactone) 25 Mg Tablet, 25 MG PO DAILY, (Reported) Scheduled PRN Acetaminophen/Diphenhydramine (Percogesic Extra Str Caplet) 1 Each Tablet, 1 TAB PO QHS PRN for SLEEP, (Reported) Hydroxyzine HCl (Hydroxyzine HCl) 25 Mg Tablet, 25 MG PO BID PRN for itching, (Reported) JEANCARLOS HIDALGO MD Nov 10, 2020 14:19
[2020-11-10] MEDS ORDERED: ONDANSETRON 4MG/2ML VIAL As Ordered ONE (14:31)
[2020-11-10] MEDS ORDERED: fentaNYL 100 MCG/2 ML INJECTION (J3010) As Ordered ONE (14:31)
[2020-11-10] MEDS ORDERED: LIDOCAINE 2% 100MG/5ML SDV (FOR ANES.) As Ordered ONE (14:31)
[2020-11-10] MEDS ORDERED: propofoL 200 MG/20 ML VIAL As Ordered ONE ×3 (14:31→16:02)
[2020-11-10] MEDS ORDERED: MIDAZOLAM INJ 2MG/2ML VIAL (J2250 PER 1MG) As Ordered ONE (14:32)
[2020-11-10] MEDS ORDERED: ISOVUE-300 61% 50ML VIAL As Ordered ONE (15:13)
[2020-11-10] MEDS: HumaLOG INSULIN (NovoLOG) PER UNIT SC SCH (17:30)
--- NOTE | 2020-11-10 19:50 | CR ---
CONSULTATION DATE: 11/10/2020 REQUESTING PHYSICIAN: Dr. Zachery Hwang REASON FOR CONSULTATION: To assist in the management of end-stage renal disease. HISTORY OF PRESENT ILLNESS: Mrs. Narayan is a 70-year-old female with multiple chronic medical problems including history of diabetes, end-stage renal disease and coronary artery disease. She presented to outpatient hemodialysis on November 09 and her fistula was noted to be clotted. She was advised to some to emergency room and she did come this morning. She is being admitted by hospitalist service. I have already discussed with the vascular surgery for need for declotting of her AV fistula so she can be dialyzed. In the meantime she is noticed to have mild hyperkalemia in the emergency room but she does not need any urgent intervention. The patient is felt to be medically stable to go to OR. PAST MEDICAL AND SURGICAL HISTORY: 1. Type 2 diabetes mellitus complicated with diabetic nephropathy, retinopathy and peripheral neuropathy. 2. History of diastolic congestive heart failure. 3. Coronary artery disease. 4. End-stage renal disease requiring maintenance hemodialysis. 5. History of diabetic neuropathy. 6. Hypertension. 7. Charcot foot. 8. History of hyperlipidemia. 9. History of anemia of chronic kidney disease. 10. Fibromyalgia. 11. Depression. 12. Degenerative joint disease. PAST SURGICAL HISTORY: 1. Significant for tonsillectomy. 2. D&C x2. 3. x2. 4. Spinal cyst removal. 5. Hysterectomy. 6. Right carpal tunnel release. 7. Cholecystectomy. 8. Multiple cardiac catheterizations and stents. 9. Multiple toe amputations. 10. Left BKA. 11. Appendectomy. 12. Left arm AV fistula creation. 13. Permacath placement and removal in the past. PERSONAL AND SOCIAL HISTORY: Patient denies any alcohol, drug or tobacco use. She lives with her . FAMILY HISTORY: Father is with unknown causes. Mother is still alive at 96 and has hypertension and hyperlipidemia. HOME MEDICATIONS: 1. Allopurinol 100 mg daily. 2. Aspirin 81 mg daily. 3. Atorvastatin 40 mg at bedtime. 4. Calcitriol 0.25 mcg daily. 5. Carvedilol 12.5 mg b.i.d. 6. Ferrous gluconate 324 mg b.i.d. 7. Multivitamin one tablet daily. 8. Gabapentin 600 mg t.i.d. 9. Lantus insulin 40 units in the a.m. and 40 units in the p.m. 10. Humalog insulin per sliding scale. 11. Paroxetine 40 mg daily. 12. Prednisone 60 mg daily. 13. Spironolactone 25mg daily. 14. Percocet as needed for pain. 15. Hydroxyzine as needed for itching. ALLERGIES: SHE HAS ALLERGY TO SULFA, SODIUM BICARBONATE, CITRIC ACID AND HYDROCODONE. REVIEW OF SYSTEMS: She denies any fever or chills. She was just noted to have blood in AV fistula yesterday when she came for her regular dialysis treatment. Ears, nose and throat are unremarkable. Cardiovascular system: Negative for dyspnea or chest pain. Respiratory system negative for cough or hemoptysis. GI system is negative for nausea or vomiting. system negative for dysuria or hematuria. Endocrine system is significant for secondary hyperparathyroidism and diabetes. Musculoskeletal system is significant for history of gout and prior left BKA. Hematological system significant for anemia of chronic kidney disease. Psychosocial system: Negative for depression and anxiety. Neurological system significant for severe peripheral neuropathy. Skin is negative for rash or ulcers. Other systems are reviewed and are unremarkable . PHYSICAL EXAMINATION: Vital signs: Temperature 97.7 degrees Fahrenheit, heart is 68 per minute and respiratory rate 16 per minute. Blood pressure 116/58 mmHg and oxygen saturation 94% on room air. Head is atraumatic. Neck: Supple and JVD difficult to assess. Heart sounds are regular and lungs clear to auscultation. Abdomen: Soft and nontender and bowel sounds are normal. Extremities without any cyanosis or clubbing. She has left below the knee amputation and is using her prosthesis. Neurologically, she is awake, alert and at her baseline mentation. LABORATORY DATA: Today's labs showed WBC count 7.4, hemoglobin 10.7 and hematocrit 33.6. Platelets 178. Glucose 198, sodium 137, potassium 5.2, CO2 26, BUN 49 and creatinine 2.3. PROBLEMS: 1. End-stage renal disease. Patient missed her dialysis yesterday. We will plan to dilate her after her AV fistula gets declotted. If her surgery is unsuccessful, then she will probably need a Permacath placement. 2. Hyperkalemia. She has mild hyperkalemia. She does not need any intervention. This will be corrected with dialysis. 3. Clotted AV fistula. Patient is being admitted so she can go to OR. I have already discussed with vascular surgery for need for declotting of her AV fistula. 4. Anemia. Her anemia is chronic and stable. It is related to end-stage renal disease and does not need any urgent intervention. Thank you for involving me in the care of Mrs. Narayan. I will follow her along with you.
[2020-11-10] MEDS ORDERED: allopurinoL 100 MG TAB PO SCH (21:00)
[2020-11-10] MEDS ORDERED: ATORVASTATIN 20 MG TAB PO SCH (21:00)
[2020-11-10] MEDS ORDERED: hydrOXYzine 25 MG TAB PO PRN (21:00)
[2020-11-10] MEDS ORDERED: LEVEMIR (INSULIN DETEMIR) 1 UNITS/0.01ML SC SCH (21:00)
[2020-11-10] MEDS ORDERED: HumaLOG INSULIN (NovoLOG) PER UNIT SC SCH (21:00)
[2020-11-10 22:00] VITALS: BP 137/56
[2020-11-10] MEDS: GABAPENTIN 300 MG CAP PO SCH (22:50)
[2020-11-10] MEDS: FERROUS GLUCONATE 324 MG TAB PO SCH (22:52)
[2020-11-10] MEDS: CARVedilol 12.5 MG TAB PO SCH (22:52)
[2020-11-11] MEDS ORDERED: ACETAMINOPHEN TAB 650MG DOSE (2X325MG) PO PRN (02:00)
[2020-11-11] MEDS ORDERED: oxyCODONE 5MG TAB PO ONE (03:40)
[2020-11-11 06:00] VITALS: BP 126/55
[2020-11-11 07:49] LABS: HEMATOCRIT 34.4 % (36.0-47.0); HEMOGLOBIN 10.9 g/dl (12.0-15.5); MEAN CORPUSCULAR HEMOGLOBIN 33.3 pg (27.0-33.0); MEAN CORPUSCULAR HGB CONC 31.7 g/dl (32.0-36.5); MEAN CORPUSCULAR VOLUME 105.2 fl (80.0-96.0); PLATELET COUNT, AUTOMATED 170 10^3/uL (150-450); RED BLOOD COUNT 3.27 10^6/uL (4.00-5.40); WHITE BLOOD COUNT 8.7 10^3/uL (4.0-10.0)
[2020-11-11 08:17] LABS: CALCIUM LEVEL 9.2 MG/DL (8.8-10.2); CREATININE FOR GFR 2.06 MG/DL (0.55-1.30); GLOMERULAR FILTRATION RATE 25.5 (>45); MAGNESIUM LEVEL 2.2 MG/DL (1.8-2.4); POTASSIUM SERUM 4.5 MEQ/L (3.5-5.1)
[2020-11-11] MEDS ORDERED: LEVEMIR (INSULIN DETEMIR) 1 UNITS/0.01ML SC SCH (09:00)
[2020-11-11] MEDS ORDERED: CALCITRIOL 0.25 MCG CAP (S0169) PO SCH (09:00)
[2020-11-11] MEDS ORDERED: predniSONE 20 MG TAB PO SCH (09:00)
[2020-11-11] MEDS ORDERED: SPIRONOLACTONE 25 MG TAB PO SCH (09:00)
[2020-11-11] MEDS ORDERED: PARoxetine 20MG TABLET PO SCH (09:00)
[2020-11-11] MEDS ORDERED: ASPIRIN 81MG ENTERIC TABLET PO SCH (09:00)
[2020-11-11] MEDS: HumaLOG INSULIN (NovoLOG) PER UNIT SC SCH ×2 (09:16→12:28)
[2020-11-11 09:17] VITALS: BP 126/64
[2020-11-11] MEDS: GABAPENTIN 300 MG CAP PO SCH (09:17)
[2020-11-11] MEDS: CARVedilol 12.5 MG TAB PO SCH (09:17)
[2020-11-11] MEDS: FERROUS GLUCONATE 324 MG TAB PO SCH (09:17)
--- NOTE | 2020-11-11 11:52 | DS.PDOC ---
Discharge Summary General Date of Admission Nov 10, 2020 at 12:58 Date of Discharge 11/11/2020 Primary Care Physician: Jeremy Cornell MD Attending Physician: MELY ZAPATA DO Specialist/Consultants Involve: Daniella Dong MD Specialist/Consultants Involve Tony Enriquez MD, vascular surgery Discharge Summary PROCEDURES PERFORMED DURING STAY: Fistula thrombectomy performed by Dr. Enriquez on 11/10/2020 ADMITTING DIAGNOSES: 1. Clotted AV fistula causing occlusion. 2. End-stage renal disease 3. Type 2 diabetes mellitus, insulin-dependent 4. Heart failure preserved ejection fraction, not in exacerbation 5. Hyperkalemia 6. Hypertension 7. Diabetic nephropathy and neuropathy DISCHARGE DIAGNOSES: 1. Clotted AV fistula causing occlusion, resolved. 2. End-stage renal disease 3. Type 2 diabetes mellitus, insulin-dependent 4. Heart failure preserved ejection fraction, not in exacerbation 5. Hyperkalemia, resolved with dialysis 6. Hypertension 7. Diabetic neuropathy and nephropathy 8. Shingles right upper back COMPLICATIONS/CHIEF COMPLAINT: Av Fistular Occlusion. HISTORY OF PRESENT ILLNESS: Patient is a 70-year-old female who presented to the emergency department on 11/10/2020 due to her fistula not working. Patient states she gets dialysis on a Thursday, Thursday, and Thursday schedule and will schedule to get dialysis on 11/09/2020 but was unable to due to her fistula clotting off. Patient states she did have a successful dialysis treatment on Thursday. Patient states she was at the vascular surgery office on where an ultrasound was performed stating the fistula was patent however, on Thursday she was unable to get vascular access at dialysis and unable to get dialysis. Patient was instructed to come to the emergency department on 11/10/2020. Patient states other than dealing with recovering from shingles on her right upper back she is otherwise in her normal state of health today. Patient does not have any complaints at this time.. HOSPITAL COURSE: Patient was admitted to the hospital and was seen by vascular surgery. Ultrasound of the left upper extremity with the AV fistula did show that there was clot in the fistula causing occlusion. Patient went to the operating room for thrombectomy was performed by Dr. Enriquez of vascular surgery. This procedure went well and the patient was able to receive dialysis inpatient on 11/10/2020. Patient did well overnight. Patient was seen this morning and was doing well. Dr. Dong of nephrology also saw the patient and agreed that the fistula looked functional and the patient can be discharged home on 11/11/2020. Patient is instructed to follow-up with vascular surgery as well as resuming dialysis on her regular Thursday, Thursday, and Thursday schedule. Patient was discharged home on 11/11/2020 DISCHARGE MEDICATIONS: Please see below. ALLERGIES: Please see below. PHYSICAL EXAMINATION ON DISCHARGE: VITAL SIGNS: Please see below. General: Alert and oriented female patient who was sitting up in bed resting comfortably when I walked in the room. Patient not appear to be in any acute distress. HEENT: Normocephalic, atraumatic, moist mucous membranes. Neck: No lymphadenopathy or thyromegaly Cardiac: Regular rate and rhythm, no murmurs, normal S1, normal S2 Pulm: Clear to auscultation bilaterally. No wheezes, rhonchi, rales Abd: Nondistended, nontender to palpation, normal bowel sounds Ext: No edema bilateral lower extremities LABORATORY DATA: Please see below. IMAGING: Upper extremity arterial ultrasound performed in the left arm on 11/10/2020 was reported to show peak systolic velocity of the AV fistula at the anastomosis is 237 cm/s and is biphasic. The peak systolic velocity in the cephalic vein 1 cm distal to the anastomosis is 186 cm/s and is biphasic. Same vessel 3 cm distal to the anastomosis is occluded and there is occlusion also at the mid and proximal humeral level. PROGNOSIS: Good ACTIVITY: As tolerated. DIET: Renal diet and consistent carbohydrate diet DISCHARGE PLAN: Discharge home DISPOSITION: 01-Home, self-care DISCHARGE INSTRUCTIONS: 1. Follow-up with your primary care provider within 3 to 5 days discharge. 2. Follow-up with vascular surgery within 1 to 2 weeks of discharge 3. Follow-up with Dr. Dong and nephrology at dialysis. Continue your normal dialysis schedule on a Thursday, Thursday, Thursday schedule. 4. Continue your prednisone taper that Dr. Quarles had prescribed for you. You have received 2 doses of this so start on day 3 tomorrow. 5. Return to the emergency department if your symptoms worsen ITEMS TO FOLLOWUP ON ON OUTPATIENT: 1. Continued patency of the AV fistula. DISCHARGE CONDITION: Stable. TIME SPENT ON DISCHARGE: 25 minutes. Vital Signs/I&Os Vital Signs Date Time Temp Pulse Resp B/P (MAP) Pulse Ox O2 Delivery O2 Flow Rate FiO2 11/11/20 09:17 66 126/64 11/11/20 06:00 98.7 16 92 Room Air I&O- Last 24 Hours up to 6 AM 11/11/20 06:00 Intake Total 490 ml Output Total 2800 ml Balance -2310 ml Laboratory Data Labs 24H Laboratory Tests 2 11/10/20 11:55: Coronavirus (COVID-19)(PCR) NEGATIVE, Influenza Type A (RT-PCR) NEGATIVE, Influenza Type B (RT-PCR) NEGATIVE, Respiratory Syncytial Virus (PCR) NEGATIVE 11/10/20 12:01: Immature Granulocyte % (Auto) 0.7, Neutrophils (%) (Auto) 71.2H, Lymphocytes (%) (Auto) 15.6L, Monocytes (%) (Auto) 8.3H, Eosinophils (%) (Auto) 3.4H, Basophils (%) (Auto) 0.8, Neutrophils # (Auto) 5.2, Lymphocytes # (Auto) 1.2L, Monocytes # (Auto) 0.6, Eosinophils # (Auto) 0.3, Basophils # (Auto) 0.1, Nucleated Red Blood Cells % (auto) 0.0, Phosphorus Level 3.6, Magnesium Level 2.1 11/10/20 12:03: POC Glucose (Misc Panel) 198H, POC Sodium (Misc Panel) 137, POC Potassium (Misc Panel) 5.2H, POC Chloride (Misc Panel) 105, POC Total CO2 (Misc Panel) 26.0, POC Blood Urea Nitrogen (Misc Panel 49H, POC Ionized Calcium (Misc Panel) 5.1, POC Creatinine (Misc Panel) 2.3H, POC Hematocrit (Misc Panel) 31.0L 11/10/20 21:41: Bedside Glucose (Misc Panel) 97 11/11/20 07:11: Nucleated Red Blood Cells % (auto) 0.0, Anion Gap 7L, Glomerular Filtration Rate 25.5L, Calcium Level 9.2, Magnesium Level 2.2 CBC/BMP Laboratory Tests 11/10/20 12:01 11/11/20 07:11 FSBS Laboratory Tests Test 11/10/20 21:41 Range/Units Bedside Glucose (Misc Panel) 97 80-115 MG/DL Discharge Medications Scheduled Allopurinol (Allopurinol) 100 Mg Tablet, 100 MG PO QHS, (Reported) Aspirin (Aspirin EC) 81 Mg Tablet.dr, 81 MG PO DAILY, (Reported) Atorvastatin Calcium (Atorvastatin Calcium) 40 Mg Tab, 40 MG PO QHS, (Reported) Calcitriol (Calcitriol) 0.25 Mcg Capsule, 0.25 MCG PO DAILY, (Reported) Carvedilol (Coreg) 12.5 Mg Tab, 12.5 MG PO BID, (Reported) Ferrous Gluconate (Ferrous Gluconate) 324 Mg Tablet, 324 MG PO BID, (Reported) Folic Acid/Vit B Complex and C (Sofia-Nicolas Tablet) 0.8 Mg Tablet, 1 TAB PO DAILY, (Reported) Gabapentin (Gabapentin) 300 Mg Capsule, 600 MG PO TID, (Reported) Insulin Glargine (Lantus) 100 Unit/1 Ml Vial, 40 UNITS SC QAM, (Reported) Insulin Glargine (Lantus) 100 Unit/1 Ml Vial, 40 UNITS SC QHS, (Reported) Insulin Human Lispro (Humalog) 100 Unit/1 Ml Vial, 1 DOSE SC AC, (Reported) PER SLIDING SCALE Paroxetine HCl (Paroxetine HCl) 40 Mg Tablet, 40 MG PO DAILY, (Reported) Prednisone (Prednisone) 10 Mg Tablet, 60 MG PO DAILY, (Reported) 60MG DAILY FOR 4 DAYS THEN 40MG DAILY FOR 4 DAYS THEN 20MG DAILY FOR 4 DAYS Spironolactone (Spironolactone) 25 Mg Tablet, 25 MG PO DAILY, (Reported) Scheduled PRN Acetaminophen/Diphenhydramine (Percogesic Extra Str Caplet) 1 Each Tablet, 1 TAB PO QHS PRN for SLEEP, (Reported) Hydroxyzine HCl (Hydroxyzine HCl) 25 Mg Tablet, 25 MG PO BID PRN for itching, (Reported) Allergies Coded Allergies: citric acid (Verified Allergy, Intermediate, HIVES/ITCHING, 05/19/18) sodium bicarbonate (Verified Allergy, Intermediate, HIVES/ITCHING, 05/19/18) Sulfa (Sulfonamide Antibiotics) (Verified Allergy, Mild, 06/28/18) rash TAPE (Verified Allergy, Mild, RASH, 10/22/20) hydrocodone (Verified Adverse Reaction, Mild, ITCHES, 10/22/20) MELY ZAPATA DO Nov 11, 2020 11:52
--- NOTE | 2020-11-11 13:26 | IPN ---
NEPHROLOGY PROGRESS NOTE DATE: 11/11/2020 SUBJECTIVE: Ms. Narayan is seen this morning on her bedside. She was admitted yesterday with clotted arteriovenous (AV) fistula. She underwent a declotting of her fistula and dialyzed afterwards. She tolerated her dialysis well. She reports that she did not sleep very well last night due to shingles rash on her back. She denies any dyspnea, chest pain, nausea or vomiting. PHYSICAL EXAMINATION: VITAL SIGNS: Temperature 98.7 degrees Fahrenheit, heart rate 66 per minute, respiratory rate 16 per minute, blood pressure 126/55 mmHg, oxygen saturation 92% on room air. HEAD: Atraumatic. NECK: Supple and without jugular venous distention (JVD) or thyroid enlargement. HEART SOUNDS: Regular. LUNGS: Clear to auscultation. ABDOMEN: Soft and nontender. Bowel sounds are present. EXTREMITIES: Without any cyanosis or clubbing. She has left [id number] amputation. Left arm arteriovenous (AV) fistula is patent. LABORATORY DATA: Today's labs show WBC 8.7, hemoglobin 10.9, hematocrit 34.4. Sodium 138, potassium 4.5, BUN 22, creatinine 2.0. PROBLEMS: 1. End-stage renal disease. Patient missed her dialysis on Thursday and was dialyzed yesterday. She will go back to her regular dialysis treatment tomorrow on regular time. 2. Clotted left arm arteriovenous (AV) fistula. Patient had a declotting done yesterday. Her fistula is patent at present. I have advised her to follow up with vascular surgery as an outpatient for angiogram and angioplasties. She remains high risk for recurrent clotting. 3. Anemia. Her anemia is stable and does not need any intervention at present. DISPOSITION: Patient can be discharged to home today and will follow up in outpatient clinic.
--- NOTE | 2020-11-13 15:34 | ROOPDOC ---
[facility] Report Of Operation Report of Operation DATE OF PROCEDURE: 11/10/20 PREPROCEDURE DIAGNOSES: Left brachiocephalic AV fistula thrombosis. POSTPROCEDURE DIAGNOSES: Left brachiocephalic AV fistula thrombosis and occlusion of left proximal cephalic vein. PROCEDURE PERFORMED: Open thrombectomy of left brachiocephalic AV fistula and angioplasty of proximal left cephalic vein. SURGEON: Jeancarlos Enriquez MD ANESTHESIA: Local and sedation. ESTIMATED BLOOD LOSS: Approximately 50 mL. COMPLICATIONS: None. FINDINGS: Acute and chronic clot in AV fistula and total occlusion of proximal cephalic vein SPECIMENS REMOVED: Thrombus DESCRIPTION OF PROCEDURE: Patient was brought to the operating room and placed on operating table in supine position. After adequate anesthesia had been administered patient's left arm was prepped and draped in standard surgical fashion. A small incision was made parallel to the mid segment of the AV fistula. Dissection continued with Bovie electrocautery and Metzenbaum scissors. A segment of the AV fistula was identified, dissected free from the surrounding tissues and encircled with vascular loops. A venotomy was performed with 11 blade scalpel. 4 Sudanese and 5 Sudanese Shirin balloons were used to extract the thrombus proximally and then distally from the venotomy. Excellent antegrade flow from the AV fistula anastomosis was obtained however minimal retrograde flow from the cephalic vein was seen. A 5 Sudanese sheath was then placed into the fistula, and a Glidewire was passed towards the central venous system however the Glidewire would not pass into the subclavian vein. Using a support catheter the Glidewire was then able to be passed into the subclavian and innominate veins. Venography was performed and showed complete occlusion at the insertion of the cephalic vein onto the subclavian vein. Support catheter was removed and exchanged for a 6 mm x 100 mm Glidden balloon. Angioplasty was performed and repeat venography showed resolution of the stenosis and improved flow into the central venous system. The sheath and wire were removed and the venotomy was closed using 6-0 Prolene sutures. Wound was irrigated and closed with 2-0 Vicryl sutures and skin approximated with 4-0 Monocryl suture. Excellent thrill was felt throughout the fistula. A sterile dressing was then placed. Patient tolerated the procedure well and sent to recovery room in stable condition. JEANCARLOS ENRIQUEZ MD Nov 13, 2020 15:34
[2020-11-15] MEDS ORDERED: predniSONE 20 MG TAB PO SCH (09:00)
== END 2020-11-11 14:50 | disposition home or self-care (01) | DRG 252 ==
LOC: M ED 10:46 → M ED INP 12:58 → M ED 13:58 → M MS5PR 21:22
PROVIDERS: ADMIT Family Medicine; ATTEND Family Medicine
PROC: 057F3ZZ Dilation of Left Cephalic Vein, Percutaneous Approach (ICD-10-PCS; 2020-11-10)
PROC: 05CF3ZZ Extirpation of Matter from Left Cephalic Vein, Percutaneous Approach (ICD-10-PCS; principal; 2020-11-10 13:23)
DX: T82.590A Other mechanical complication of surgically created arteriovenous fistula, initial encounter (principal); N18.6 End stage renal disease; I50.32 Chronic diastolic (congestive) heart failure; I13.2 Hypertensive heart and chronic kidney disease with heart failure and with stage 5 chronic kidney disease, or end stage renal disease; Z99.2 Dependence on renal dialysis; I25.10 Atherosclerotic heart disease of native coronary artery without angina pectoris; E11.22 Type 2 diabetes mellitus with diabetic chronic kidney disease; E11.42 Type 2 diabetes mellitus with diabetic polyneuropathy; E11.21 Type 2 diabetes mellitus with diabetic nephropathy; E11.319 Type 2 diabetes mellitus with unspecified diabetic retinopathy without macular edema; E11.621 Type 2 diabetes mellitus with foot ulcer; D63.1 Anemia in chronic kidney disease; F32.9 Major depressive disorder, single episode, unspecified; M79.7 Fibromyalgia; M19.90 Unspecified osteoarthritis, unspecified site; Z90.49 Acquired absence of other specified parts of digestive tract; Z95.5 Presence of coronary angioplasty implant and graft; Z89.512 Acquired absence of left leg below knee; Z89.421 Acquired absence of other right toe(s); E87.5 Hyperkalemia; Z20.822 Contact with and (suspected) exposure to COVID-19; Z79.82 Long term (current) use of aspirin; Z79.4 Long term (current) use of insulin; Z79.899 Other long term (current) drug therapy; Z88.2 Allergy status to sulfonamides; Z91.040 Latex allergy status; Z88.5 Allergy status to narcotic agent; Z88.8 Allergy status to other drugs, medicaments and biological substances; Z90.79 Acquired absence of other genital organ(s)

== ENCOUNTER → 2020-12-01 | Outpatient (CLI) | payer OTHER ==
[~2020-12-01] MED LIST changes: +HYDR-3363 PO; +PARO40TA2 PO; +POTA20TA6 PO; +PRED10TA2 PO; -predniSONE 20 MG TAB PO ONE
[2020-12-01 14:28] LABS: BASO % 0.5 % (0.0-1.0); EOS # 0.3 10^3/uL (0.0-0.5); EOS % 3.2 % (0.0-3.0); HEMATOCRIT 30.9 % (36.0-47.0); LYMPH # 1.4 10^3/uL (1.5-5.0); LYMPH % 17.8 % (24.0-44.0); MEAN CORPUSCULAR HEMOGLOBIN 33.6 pg (27.0-33.0); MEAN CORPUSCULAR HGB CONC 32.4 g/dl (32.0-36.5); MEAN CORPUSCULAR VOLUME 103.7 fl (80.0-96.0); MONO # 0.6 10^3/uL (0.0-0.8); MONO % 7.9 % (2.0-8.0); NEUTROPHILS # 5.4 10^3/uL (1.5-8.5); NEUTROPHILS % 69.3 % (36.0-66.0); PLATELET COUNT, AUTOMATED 137 10^3/uL (150-450); RED BLOOD COUNT 2.98 10^6/uL (4.00-5.40); WHITE BLOOD COUNT 7.8 10^3/uL (4.0-10.0)
[2020-12-01 14:44] LABS: INR 0.97; PROTHROMBIN TIME 13.3 SECONDS (12.7-14.5)
[2020-12-01 14:45] LABS: PARTIAL THROMBOPLASTIN TIME 29.2 SECONDS (25.9-37.0)
[2020-12-01 14:47] LABS: CALCIUM LEVEL 8.8 MG/DL (8.8-10.2); CREATININE FOR GFR 2.13 MG/DL (0.55-1.30); GLOMERULAR FILTRATION RATE 24.5 (>45); POTASSIUM SERUM 4.6 MEQ/L (3.5-5.1)
== END ==
LOC: M LAB 13:33
PROVIDERS: ATTEND Surgery Vascular Surgery
DX: N18.6 End stage renal disease (principal); Z79.01 Long term (current) use of anticoagulants

== ENCOUNTER → 2020-12-04 | Outpatient (CLI) | payer OTHER ==
[~2020-12-04] MED LIST changes: +ISOVUE-300 61% 50ML VIAL As Ordered ONE; +LIDOCAINE 1% MDV 20ML VIAL As Ordered ONE; +MIDAZOLAM INJ 2MG/2ML VIAL (J2250 PER 1MG) As Ordered ONE; +ceFAZolin 2 GM/D5W 50 ML IV BAG (J0690 PER 500MG) As Ordered ONE; +ceFAZolin SOD 2 GM in IV 1 EA IV ONE; +fentaNYL 100 MCG/2 ML INJECTION (J3010) As Ordered ONE
[2020-12-04 14:06] LABS: HEMATOCRIT 34.2 % (36.0-47.0); HEMOGLOBIN 10.6 g/dl (12.0-15.5); MEAN CORPUSCULAR HEMOGLOBIN 33.1 pg (27.0-33.0); MEAN CORPUSCULAR VOLUME 106.9 fl (80.0-96.0); PLATELET COUNT, AUTOMATED 148 10^3/uL (150-450); WHITE BLOOD COUNT 7.9 10^3/uL (4.0-10.0)
[2020-12-04 14:17] LABS: INR 0.95
[2020-12-04 14:18] LABS: PARTIAL THROMBOPLASTIN TIME 31.3 SECONDS (25.9-37.0)
[2020-12-04 14:26] LABS: CALCIUM LEVEL 9.1 MG/DL (8.8-10.2); CREATININE FOR GFR 2.2 MG/DL (0.55-1.30); GLOMERULAR FILTRATION RATE 23.6 (>45); POTASSIUM SERUM 4.2 MEQ/L (3.5-5.1)
--- NOTE | 2020-12-04 16:27 | ROOPDOC ---
[facility] [place] Report of Operation DATE OF PROCEDURE: 12/04/20 PREPROCEDURE DIAGNOSES: End-stage renal disease, on hemodialysis through a left arm AV fistula, malfunctioning AV fistula POSTPROCEDURE DIAGNOSES: End-stage renal disease, on hemodialysis through a left arm brachiocephalic AV fistula, malfunctioning AV fistula, due to recurrent stenoses of the arterial aspect of the fistula and of the cephalic vein arch PROCEDURE PERFORMED: 1. Left arm fistulogram, including the central venogram and reflux arteriogram. Ultrasound-guided access of the fistula 2. Balloon angioplasty of the arterial aspect of the brachiocephalic AV fistula, using the 6 x 60 mm Tommy balloon, followed by 8 x 20 mm Cutting Balloon. 3. Balloon angioplasty of the cephalic vein arch stenosis, using 8 x 20 mm Cutting Balloon 4. Completion fistulogram SURGEON: Paulette Valdovinos MD VIDEO EFFECTS EDITOR: None ANESTHESIA: Local. Fentanyl 125 mics for pain ESTIMATED BLOOD LOSS: Approximately 10 mL. 'Contrast: 42 [id number] COMPLICATIONS: None REMARKS: Severe recurrent stenosis of the arterial aspect of the left arm AV fistula, along with recurrent stenosis, on the cephalic vein arch FINDINGS: 1. Patent left brachiocephalic AV fistula, with severe 90% long segment recurrent stenosis involving at least 4 cm of the arterial aspect of the AV fistula, including arterial anastomosis. There was a focal 90% stenosis of the cephalic vein arch, about 2 cm peripheral to its drainage into the axillary vein. 2. Successful treatment following Cutting Balloon angioplasty of both lesions, with complete resolution of the stenoses, with brisk flow into the fistula, along with a good thrill and bruit, at the end of the procedure SPECIMENS REMOVED: None PROCEDURE NOTE: Indication for the procedure: The patient is a 70-year-old lady, who had left brachiocephalic AV fistula created, in June 2018. In July 2018, she required fistulogram, with balloon angioplasty of the arterial aspect of the AV fistula, which was performed by Dr. Matthews. However she has been on hemodialysis treatments, only since July of this year. Since the initiation of hemodialysis treatments, the fistula has not been functioning well. She was noted to have significant recurrent stenosis of the arterial aspect of the AV fistula on duplex ultrasound of the access. However before this stenosis could be t reated, her fistula clotted, and she required thrombectomy of the AV fistula, which was performed by Dr. Enriquez on 11/10/2020, along with balloon angioplasty of the cephalic vein stenosis, that was noted after performing the thrombectomy. The fistula functioned well, on the day of the procedure, however the dialysis team continued to have difficulty accessing the fistula, with retrieval of clots, from the fistula. Hence the above-mentioned procedure is being performed. Informed consent was obtained from the patient, in the presence of her , for the procedure, after explaining the risk benefits and complications of the procedure, which include but are not limited to bleeding, infection, cardiorespiratory complications, ischemic complications to the arm including steal syndrome, injury to the arterial and venous structures requiring further endovascular intervention/surgical repairs, failure of the fistula, failure of the procedure etc. Alternatives to the procedure including nonoperative treatment and its consequences were explained. The patient understood and agreed to the procedure DESCRIPTION OF PROCEDURE: The patient was correctly identified and placed supine on the angiogram table. The left arm was cleaned and draped in a sterile fashion. A timeout was performed. Under ultrasound guidance, the left brachiocephalic AV fistula was accessed, and in the mid arm level, using 21- gauge micropuncture needle, in an arterial facing manner. This was exchanged to a 5 [place] micro sheath. Initial fistulogram was performed, through the sheath. Findings as mentioned above. There was severe stenosis of the arterial aspect of the AV fistula, which required treatment. The micro sheath was exchanged to 4 [place] sheath, and 0.014 inch wire was used, to perform a treatment of the stenosis. The wire was advanced, across the arterial anastomosis, into the proximal brachial artery. Initially a 6 x 60 mm Tommy balloon was initially used, to perform angioplasty of the stenosis. However despite multiple and pr olonged balloon inflations, there was still significant residual stenosis on follow-up imaging. Hence an 8 x 20 mm cutting balloon was used to perform balloon angioplasty of the stenosis, along the entire length of the arterial aspect of the AV fistula and at the arterial anastomosis. Follow-up imaging revealed complete resolution of the stenosis, with good inflow. The 4 [place] sheath had to be exchanged to a 7 [place] sheath, to allow passage of the cutting balloon. The 7 [place] sheath was then completely removed along with all wires and catheters from the fistula, and manual pressure was held, till hemostasis was achieved. As the initial imaging revealed significant cephalic arch stenosis, the fistula was accessed, near the arterial aspect, and 5 [place] sheath was placed in a venous facing fashion using the micropuncture kit. The cephalic arch stenosis was defined. The stenosis was crossed, using a Glidewire and the glide catheter. The 5 [place] sheath was exchanged to a 7 [place] sheath. The Glidewir e was exchanged to a 0.014 inch advantage Glidewire. The 8 x 20 mm cutting balloon was then used to perform angioplasty of the cephalic vein arch stenosis. Completion imaging revealed a complete resolution of the stenosis, with brisk flow through the fistula and the venous outflow. The 7 [place] sheath was then removed, and the sheath access site was secured with 3-0 Vicryl purse string suture. There was a good thrill in the fistula after intervention. The patient tolerated the procedure well and was transferred to the recovery room in hemodynamically stable condition. The procedure and findings were conveyed to her Shaq over the phone. Plan: May access the AV fistula for hemodialysis tomorrow. She may benefit from revision of the arterial aspect of AV fistula, if she develops recurrent stenosis at the arterial aspect of the AV fistula. Also consideration may be given, for placing a stent across the cephalic vein arch, if she tends to develop recurrent stenosis at this area. Paultete Valdovinos MD Dec 04, 2020 16:27
[2020-12-04 16:59] VITALS: BP 126/60
== END ==
LOC: M IRPRO 12:24
PROVIDERS: ATTEND Surgery Vascular Surgery
DX: N18.6 End stage renal disease (principal); T82.590A Other mechanical complication of surgically created arteriovenous fistula, initial encounter; X58.XXXA Exposure to other specified factors, initial encounter; Z88.1 Allergy status to other antibiotic agents; Z79.82 Long term (current) use of aspirin; Z79.899 Other long term (current) drug therapy; Z99.2 Dependence on renal dialysis
CPT/HCPCS: 36902; 80048; 85027; 85610; 85730; 86850; 86900; 86901; C1725; C1729; C1769; C1887; C1894; J0690; J1644; J2250; J3010; Q9967

== ENCOUNTER 2020-12-06 15:57 | Emergency (ER) | payer OTHER ==
[~2020-12-06] VITALS: Ht 177.8 cm; Wt 124.1 kg
[~2020-12-06 15:57] MED LIST changes: -ISOVUE-300 61% 50ML VIAL As Ordered ONE; -LIDOCAINE 1% MDV 20ML VIAL As Ordered ONE; -MIDAZOLAM INJ 2MG/2ML VIAL (J2250 PER 1MG) As Ordered ONE; -ceFAZolin 2 GM/D5W 50 ML IV BAG (J0690 PER 500MG) As Ordered ONE; -ceFAZolin SOD 2 GM in IV 1 EA IV ONE; -fentaNYL 100 MCG/2 ML INJECTION (J3010) As Ordered ONE
--- OUTSIDE RECORDS SUMMARY | 2020-12-06 16:06 | CCD | Continuity of Care Document ---
Author Author Norma QUIÑONES MD Organization Unknown Address [address] [facility], [address] [place] [address] Phone [phone] Care Team Providers Care Manager Ui Name Role Phone Zulema Mckeon M.D. AUTM [phone] Jeremy Cornell M.D. AUTM [phone] AUTM Unavailable Jennifer Yanez M.D. AUTM [phone] AUTM Unavailable Problems Active Problems Provider Date Chronic kidney disease stage 3 Lorene Culver MD O nset: 05/20/2011 Edema Lorene Culver MD Onset: 05/19 Proteinuria Lorene Culver MD Onset: 05/19 Multiple complications due to type 2 diabetes mellitus Lorene Culver MD Onset: 05/20/2011 Essential hypertension Lorene Culver MD Onset: Heart failure Lorene Culver MD Onset: 05/19 Gout Lorene Culver MD Onset: 05/19 Hyperlipidemia Lorene Culver MD Onset: 05/19 Amputation Status Toe(S) Other Lorene Culver MD O nset: 05/20/2011 Ischemic heart disease Lorene Culver MD Onset: Ulcer of foot Lorene Culver MD Onset: 06/22 Vitamin D deficiency Lorene Culver MD Onset: 05/26 Hyperparathyroidism due to renal insufficiency Lorene Culver MD Onset: 06/23/2011 Iron deficiency anemia Lorene Culver MD Onset: Degenerative joint disease of ankle AND/OR foot Lorene Culver MD Onset: 03/02/2012 Renal disorder due to type 2 diabetes mellitus Lorene Culver MD Onset: 05/17/2012 Osteomyelitis of ankle AND/OR foot Lorene Culver MD Onset: 05/17/2012 Hypokalemia Lorene Culver MD Onset: 09/17 Type 1 diabetes mellitus Onset: 05/17/19 15 Herpes zoster without complication Sonal Danielle Onset: 11/08/2020 Atherosclerosis of arteries of the extremities Paulette Quiñones MD Onset: 11/08/2020 Arteriovenous fistula occlusion Paulette Quiñones MD O nset: 11/08/2020 Arteriovenous fistula stenosis Paulette Quiñones MD On set: 11/29/2020 Social History Type Date Description Comments Sex Unknown ETOH Use Denies alcohol use Tobacco Use Start: Unknown End: Unknown Patient is a former smoker QUIT 19 YEARS AGO Recreational Drug Use Denies Drug Use Smoking Status Reviewed: 04/02/20 Patient is a former smoker QU IT 19 YEARS AGO Allergies and adverse reactions Active Allergies Criticality Reaction | Severity Comments Date Neosporin Ointment Unable to assess criticality Itching, RASH 09/27/2018 Inactive Allergies NKDA Unable to assess criticality 08/18/2018 Medications Active Medications SIG Qnty Indications Ordering Provide r Date Aspirin Ec 81mg Tablets DR 1 po qd 30tabs 411.89 Unknown Lantus 100Unit/ML Solution 45 units bid 250.82 Unknown 250.42 Coreg (Carvedilol) 12.5mg Tablets bid 401.9 Unknown 428.9 411.89 Nitroglycerin 0.4mg Tablets Sub sublingual prn chest pain 411.89 Unknown Neurontin 300mg Capsules 2 cap po bid and can take 2 more tabs if needed for pain 60caps Unknown Paroxetine HCL 40mg Tablets 1 PO Daily Unknown Iron Tablets 1 by mouth bid Unknown Allopurinol 100mg Tablets Take 1 Tablet By Mouth Once Daily Unknown Atorvastatin Calcium 40mg Tablets 1 qd Unknown Potassium Chloride Sofia ER 20Meq Tablets ER 1 qd Unknown Spironolactone 25mg Tablets Take One Tablet By Mouth Once A Day Unknown Insulin Lispro (1 Unit Dial) 100Unit/ML Solution Pen-Inject as Directed Per Sliding Scale Before Briana ls And AT Bedtime Maximum Daily Dose 42Units Unknown Sofia-Nicolas Tablets Take One Tablet By Mouth Every Day Unknown Hydroxyzine HCL 25mg Tablets Take One Tablet By Mouth Every 12 Hours as Needed For Itching Unknown Prednisone 10mg Tablets as Di Juan Miguel Rodriguez D.O. Immunizations Description No Information Available Vital Signs Date Vital Result Comment 11/29/2020 10:35am BP Systolic 120 mmHg BP Diastolic 60 mmHg Body Temperature 98.3 F Height 70 inches 5'10" Weight 278.00 lb BMI (Body Mass Index) 39.9 kg/m2 [place] Body Weight 150 lb Weight 126.101 kg BSA (Body Surface Area) 2.40 m2 11/08/2020 1:39pm BP Systolic 150 mmHg BP Diastolic 52 mmHg Body Temperature 98.4 F Height 70 inches 5'10" Weight 270.38 lb BMI (Body Mass Index) 38.8 kg/m2 [place] Body Weight 150 lb Weight 122.642 kg BSA (Body Surface Area) 2.37 m2 Results Test Acquired Date Facility Test Result H/L Range Note CBC With Differential 12/01/2020 [facility] [address] [place] [address] [phone] White Blood Count 7.8 10 Normal 4.0-10.0 Red Blood Count 2.98 10 Low 4.00-5.40 Hemoglobin 10.0 g/dL Low 12.0-15.5 Hematocrit 30.9 % Low 36.0-47.0 Mean Corpuscular Volume 103.7 fl High 80.0-96.0 Mean Corpuscular Hemoglobin 33.6 pg High 27.0-33.0 Mean Corpuscular HGB Conc 32.4 g/dL Normal 32.0-36.5 Red Cell Distribution Width 13.9 % Normal 11.5-14.5 Platelet Count, Automated 137 10 Low 150-450 Neutrophils % 69.3 % High 36.0-66.0 Lymph % 17.8 % Low 24.0-44.0 [place] % 7.9 % Normal 2.0-8.0 Eos % 3.2 % High 0.0-3.0 Baso % 0.5 % Normal 0.0-1.0 Immature Granulocyte % 1.3 % Normal 0-3.0 Nucleated Red Blood Cell % 0.0 % Normal 0-0 Neutrophils # 5.4 10 Normal 1.5-8.5 Lymph # 1.4 10 Low 1.5-5.0 [place] # 0.6 10 Normal 0.0-0.8 Eos # 0.3 10 Normal 0.0-0.5 Baso # 0.0 10 Normal 0.0-0.2 Basic Metabolic Profile 12/01/2020 [facility] [address] [place] [address] [id number] [phone] Glucose, Fasting 187 mg/dL High 70-100 Blood Urea Nitrogen 17 mg/dL Normal 7-18 Creatinine For GFR 2.13 mg/dL High 0.55-1.30 Glomerular Filtration Rate 24.5 Low >45 1 Sodium Level 138 mEq/L Normal 136-145 Potassium Serum 4.6 mEq/L Normal 3.5-5.1 Chloride Level 104 mEq/L Normal 98-107 Carbon Dioxide Level 32 mEq/L Normal 21-32 Anion Gap 2 mEq/L Low 8-16 Calcium Level 8.8 mg/dL Normal 8.8-10.2 Coag Panel For Procedures 12/01/2020 [facility] [address] [place] [address] [id number] [phone] Platelet Count, Automated <pending> Partial Thromboplastin Time 29.2 seconds Normal 25.9-37.0 Prothrombin Time/Inr 12/01/2020 [facility] [address] [place] [id number] [phone] Prothrombin Time 13.3 seconds Normal 12.7-14.5 Inr 0.97 Normal 2 1 Units are mL/min/1.73 m2 Chronic Kidney Disease Staging per NKF: Stage I & II GFR >=60 Normal to Mildly Decreased Stage III GFR 30-59 Moderately Decreased Stage IV GFR 15-29 Severely Decreased Stage V GFR <15 Very Little GFR Left ESRD GFR <15 on TEMPLATE MAKER 2 THERAPUTIC HUMAN INR VALUES INDICATIONS NORMAL RANGES PROPHYLAXIS/TREATMENT OF: VENOUS THROMBOSIS 2.0-3.0 PULMONARY EMBOLISM 2.0-3.0 PREVENTION OF SYSTEMIC EMBOLISM FROM: TISSUE HEART VALVES 2.0-3.0 ACUTE MYOCARDIAL INFARCTION 2.0-3.0 VALVULAR HEART DISEASE 2.0-3.0 ATRIAL FIBRILLATION 2.0-3.0 MECHANICAL VALVES(HIGH RISK) 2.5-3.5 RECURRENT MYOCARDIAL INFARCTION 2.5-3.5 Procedures Date Code Description Status 11/29/2020 52899 Office/Outpatient Established Mo d MDM 30-39 Min Completed 11/08/2020 42051 Office/Outpatient Established Mo d MDM 30-39 Min Completed 06/04/2020 26479 Office/Outpatient Established Lo w MDM 20-29 Min Completed Medical Devices Description No Information Available Encounters Type Date Location Provider Dx Diagnosis Office Visit 11/29/2020 10:45a [facility] Allie Quiñones MD N18.6 End stage renal disease Z99.2 Dependence on renal dialysis T82.898A Oth complication of vascular prosth dev/grft, init T82.858A Stenosis of other vascular p rosth dev/grft, init Office Visit 11/08/2020 1:45p [facility] Allie Quiñones MD N18.6 End stage renal disease Z99.2 Dependence on renal dialysis B02.9 Zoster without complications T82.898A Oth complication of vascular prosth dev/grft, init I70.203 Unsp athscl [place] arteries of extremities, bilateral legs Office Visit 06/04/2020 4:00p [facility] Josselin alaniz MD I70.203 Unsp athscl [place] arteries of extremiti es, bilateral legs Z89.512 Acquired absence of left leg below knee Assessments Date Code Description Provider 11/29/2020 N18.6 End stage renal disease Paulette Quiñones MD 11/29/2020 Z99.2 Dependence on renal dialysis Allie Quiñones MD 11/29/2020 T82.898A Other specified comp lication of vascular prosthetic devices, implants and grafts, initial encounter Paulette Quiñones MD 11/29/2020 T82.858A Stenosis of other va scular prosthetic devices, implants and grafts, initial encounter Paulette Quiñones MD 11/08/2020 N18.6 End stage renal disease Paulette Quiñones MD 11/08/2020 Z99.2 Dependence on renal dialysis Allie Quiñones MD 11/08/2020 B02.9 Zoster without complications Allie Quiñones MD 11/08/2020 T82.898A Other specified comp lication of vascular prosthetic devices, implants and grafts, initial encounter Paulette Quiñones MD 11/08/2020 I70.203 Unspecified atherosc lerosis of [place] arteries of extremities, bilateral legs Paulette Quiñones MD 06/04/2020 I70.203 Unspecified atherosc lerosis of [place] arteries of extremities, bilateral legs Josselin Dubose MD 06/04/2020 Z89.512 Acquired absence of left leg bel ow knee Josselin Dubose MD Plan of Treatment Future Appointment(s):* 12/10/2020 4:15 pm - Tony Enriquez MD at [facility] * 12/04/2020 2:00 pm - Paulette Quiñones MD at [facility] 11/29/2020 - Paulette Quiñones MD* N18.6 End stage renal disease* New Xrays:* Fistulogram, Scheduled: 12/04/20 * Comments:* On hemodialysis through a left arm AV fistula (M , W & F), that has been malfunctioning, despite successful thrombectomy and balloon angioplasty of the venous outflow stenosis.I'm not sure, if she has recurrent venous outflow stenosis, or if the lesion in the inflow aspect of the fistula is the cause of malfunctioning.Plan:Suggest fistulogram, and possible intervention, o f inflow and outflow, as required.My impression and plan were discussed with the patient, and her . They understand, and wished to proceed with the procedure, which will be scheduled in the near future (12/06/20). * Z99.2 Dependence on renal dialysis* New Xrays:* Fistulogram, Scheduled: 12/04/20 * T82.898A Other specified complication of vascular prosthetic devices, implants and grafts, initial encounter* Comments:* Possible recurrent stenosis of the AV fistula * T82.858A Stenosis of other vascular prosthetic devices, implants and grafts, initial encounter* Comments:* See #3 Functional Status Description No Information Available Mental Status Description No Information Available Referrals Refer to Reason for Referral Status Appt Date Tony Enriquez MD EVAL AV FISTULA Scheduled 10/22/[address] [address] [phone]
--- OUTSIDE RECORDS SUMMARY | 2020-12-06 16:06 | CCD ---
Author Author [facility] Organization [facility] Address Unknown Phone Unavailable Care Team Providers Care Paramedic Rn Name Role Phone Jeremy Cornell Unavailable PROBLEMS Type Condition ICD9-CM Code UZH65-CT Code Onset Dates Condition S tatus W/U Status Risk SNOMED Code Notes Problem Depressive disorder, not elsewhere classified F32. 9 Active confirmed 05366704 Problem Mixed hyperlipidemia E78.2 Active confirmed 177957927 Problem Amplified musculoskeletal pain, diffuse M79.1 Active confirmed 941736141 Problem Cellulitis of unspecified part of limb L03.119 A ctive confirmed 206263128 Problem Hearing loss H91.90 Active confirmed 8514590 1 Problem Multilevel degenerative disc disease M53.9 Act marquez confirmed 15364293 Problem Methicillin susceptible Staphylococcus aureus infection A49.01 Active confirmed 608982333 Problem Traumatic open wound of left lower leg, subsequent enc ounter S81.802D Active confirmed 008605835 Problem Type 2 diabetes mellitus with hyperglycemia E11.65 Active confirmed 99198470 Problem Non-healing wound of amputation stump T87.89 Ac tive confirmed 320111348 Problem Lower limb amputation, other toe(s) Z89.429 Acti ve confirmed 900283117 Problem Essential hypertension I10 Active confirmed 97722596 Problem Obesity E66.9 Active confirmed 170639477 Problem Adjustment disorder with anxious mood F43.22 Ac tive confirmed 63843493 Problem Diabetic polyneuropathy associated with type 2 d iabetes mellitus E11.42 Active confirmed 40056665 Problem Carpal tunnel syndrome, unspecified laterality G56 .00 Active confirmed 81561796 Problem Charcot foot due to diabetes mellitus E11.610 Ac tive confirmed 56410268 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 Active conf irmed 397704047 Problem Stage 4 chronic kidney disease N18.4 Active confir med 934983377 Problem Status post below knee amputation of left lower extremity Z89.512 Active confirmed 644443638437409 Problem Chronic disease anemia D63.8 Active confirmed 819539907 Problem Other specified diabetes mellitus with foot ulcer E13.621 Active confirmed 4886723 Problem Hypertensive chronic kidney disease with stage 1 through stage 4 chronic kidney disease, or unspecified chronic kidney disease I12.9 Active confirmed 15806834 Problem Type 2 diabetes mellitus with other specified complication E11.69 Active confirmed 28206529435091 Problem [facility] (current) use of insulin Z79.4 Activ e confirmed 094404788 Problem Secondary hypoparathyroidism E20.8 Active confirme d 567992969 Problem Diabetes mellitus E11.9 Active confirmed 73 797237 Problem Vitamin D deficiency E55.9 Active confirmed 58929244 Problem CKD (chronic kidney disease) stage 4, GFR 15-29 ml/min N18.4 Active confirmed 758657028 Problem CAD (coronary artery disease) I25.10 Active confirm ed 74337473 Problem Memory impairment R41.3 Active confirmed 38 9700617 Problem Tinnitus of both ears H93.13 Active confirmed 4449070057563 Problem Chronic kidney disease, stage 5 N18.5 Active confi rmed 654272675 Problem Type 2 diabetes mellitus with diabetic chronic kidney disease E11.22 Active confirmed 981553713019 ALLERGIES Allergen (clinical drug ingredient) Drug/Non Drug Allergy do cumented on EMR Reaction Allergy Type Onset Date Status Sulfa (for allergy use only) Unknown Drug Allergy Active Vicodin itching Drug Allergy Active aspirin / citric acid / sodium bicarbonate Arthur([facility] Code:[address]-10) Hives Drug Allergy Active Adhesive Tape rash Drug Allergy Active ENCOUNTERS from 1950 to 2020-12-02 Encounter Location Date Provider Diagnosis [address] [phone] [place] [address] Oct, Jeremy Cornell Status post below knee amput ation of left lower extremity Z89.512 ; Herpes zoster without complication B02.9 ; Chronic kidney disease, stage 5 N18.5 and Diabetes mellitus E11.9 IMMUNIZATIONS Vaccine Route Administration Date Status Rocephin 1gm Ceftriaxone IM Intramuscular Dec 23, 2019 Admini stered Pneumococcal Adult 0.5mL Pneumovax 23 Unknown Nov 27 05 Administered TDAP IM Intramuscular Jan 16, 2015 Administered Influenza 6mo & up Fluzone Unknown Nov 17, 2016 Admin istered Influenza 6mo & up Fluzone IM Intramuscular Dec 12, 2015 Admi nistered Influenza 6mo & up Fluzone IM Intramuscular Dec 18, 2014 Admi nistered Influenza 18 yrs & older Flublok Unknown Nov 26, 2018 Administered Influenza 6mo & up Fluzone IM Intramuscular Nov 16, 2013 Admi nistered Influenza 6mo & up Fluzone IM Intramuscular Nov 29, 2012 Admi nistered Influenza 6mo & up Fluzone IM Intramuscular Dec 01, 2011 Admi nistered SOCIAL HISTORY Tobacco Use: Social History Observation Description Date Details (start date - stop date) Former Smoker Sex Assigned At : Social History Observation Description Sex Assigned At Unknown Audit Question Answer Notes Total Score: 0 Interpretation: Alcohol Education Language: Question Answer Notes Languages spoken: Zambian Yazidism: Question Answer Notes Yazidism 13 Baptism No christian beliefs that would impact healthcare Sexual Hx: Question Answer Notes Had sex in the last 12 months (vaginal, oral, or anal)? Yes Have you ever had an STD? No with Men only Drug and Alcohol Question Answer Notes Total Score: 0 Interpretation: No problems reported BMI Care Goal Follow-Up Question Answer Notes Above Normal BMI Follow-Up Lifestyle education regarding t Tobacco Use: Question Answer Notes Are you a: former smoker REASON FOR REFERRAL from 1950 to 2020-12-02 Reason replacment socket, please Diagnosis 1 Status post below knee amput ation of left lower extremity (Z89.512) Referral Organization [facility] Referring Provider First Name Jeremy Referring Provider Last Name Aneta Referring Provider Specialty Family Medicine Referred Provider Tavo Mcleod Referred Provider Specialty Capacity Management Specialist and Electrician [employer] Referral Priority Routine General Notes Jeremy Cornell MD 10/25/2020 4:10:48 PM > Ms. Narayan is a 70 year old woman who is on dialysis. Her leg stump will shrink and grow based on where she is on the cycle with dialysis. Please consider a replacment socket.Lolis Hull 10/26/2020 10:55:10 AM > Referral faxLolis Knapp 11/06/2020 2:58:20 PM > Faxed x2 Reason fistologram with possible an gioplasty Diagnosis 1 Chronic kidney disease, stag e 5 (N18.5) Referral Organization [facility] [place] Referring Provider First Name Jeremy Referring Provider Last Name Aneta Referring Provider Specialty Family Medicine Referred Provider Tony Enriquez Referred Provider Specialty Vascular Surgery Referral Priority Urgent General Notes Jeremy Cornell MD 10/25/2020 4:30:18 PM > Ms. Narayan is a 70 year old woman with ESRD. Her fistula is working sluggishly during dialysis and they are requesting consideration for a fistulogram with angiolpasty if indicated.Lolis Hull 10/26/2020 10:54:31 AM > Referral faxed VITAL SIGNS Weight 272.2 lbs Oct, Weight-kg 123.47 kg Oct, Height 70 in Oct, BMI 39.05 kg/m2 Oct, Heart Rate 95 /min Oct, Respiratory Rate 18 /min Oct, Temperature 97.5 degrees Fahrenheit Oct, Oximetry 98 Oct, Blood pressure systolic 126 mm Hg Oct, Blood pressure diastolic 76 mm Hg Oct, MEDICATIONS Medication SIG (Take, Route, Frequency, Duration) Notes Start Da te End Date Status Tylenol PM Extra Strength 500-25 MG 1 tablet at bedtim e as needed Orally Once a day for 30 day(s) Apr, Active Needle (Reusable) 30G X 1/2 DX : 250.4 subcutaneously four times daily for 30 Active Calcitriol 0.25 MCG TAKE 2 CAPSULES EVERY DAY ON THURSDAY THROUGH THURSDAY orally as directed for 30 days Active Alcohol Pads 70 % as directed B/S Testing 2-4 times a day dx: E11.65 for 30 days Oct, Active Nystatin 166527 UNIT/GM 1 application Externally Twice a day for 28 day(s) Dec, Not-Taking Paxil 40 MG 1 tablet in the morning Orally Once a day for 90 days Jan, Active Acetaminophen 325 MG 2 tablets Orally every 6 hrs prn pain Active FreeStyle Janette 14 Day [place] - as directed transdermally contin uously Dec, Active Lantus SoloStar 100 UNIT/ML 40 units am 40 units pm, MDD 90 Subcutaneous bid MDD 80 units daily. June, Active Lancets - as directed Delica 2-4 times daily dx: E11.65 fo r 30 days Oct, Active Fluconazole 150 MG 1 tablet Orally once for 1 day Aug, Not-Taking predniSONE 10 MG (48) as directed Orally Take 60 m gx4 days, 40mgx4 days, 53yof5nzsd, for 12 days Oct, Active Wheelchair - as directed topically Daily for 999 days 2020 Active Atorvastatin Calcium 40 mg 1 tablet Orally before bedtime for 90 days Active Test Strips - as directed Verio Reflect te st 2-4 times a day dx: E11.65 for 30 days Oct, Active Torsemide 20 MG 2 tablet Orally BID for 90 days Apr, Not-Taking FreeStyle Janette Sensor System - as directed topically four times daily for 30 days Active Ferrous Sulfate 325 (65 Fe) MG 1 tablet Orally twice daily for 90 day s Active Gentamicin Sulfate 0.1 % as directed topically twice daily to ul cer on toe Apr, Not-Taking HumaLOG 100 UNIT/ML USE DIRECTED PER SLIDING SCALE WITH MEALS, max daily dose 42 units. subcutaneously AC and HS for 30 days Not-Taking Coreg 12.5MG 1 tab orally twice daily for 90 days Active Spironolactone 25 mg 1 tablet Orally bid for 90 days Active valACYclovir HCl 1 GM 1 tablet Orally 3 times a day Oct Active BD Insulin Syringe Ultrafine 31G X 5/16 Use for both l antus and humalog injections SQ/ Dx: E11.9 six times a day for 30 Days Active HumaLOG 100 UNIT/ML as directed per sliding scal e Subcutaneous with meals per sliding scale for 30 days administer per sliding scale Not-Taking OneTouch Ultra II Test Strips 1 ICD:E11.9 FSBS 5 times per day f or 90 day(s) Mar, Active Sofia-Nicolas 1 tablet Orally Once a day for 90 day(s) Active Allopurinol 100 MG TAKE 1 TABLET BY MOUTH ONCE DAILY Oral Once a day Active NovoLOG FlexPen 100 UNIT/ML Use as per sliding scale w ith meals Subcutaneous AC and HS, MDD=42 units for 30 days Mar, Active Blood Glucose Test blood glucose 1 strip E11.9 Five times a day for 90 day(s) Active oxyCODONE-Acetaminophen 5-325 MG 1 tablet as needed Orally every 6 hr s Active Aspirin 81 81 MG 1 tablet Orally Once a day for 30 day(s) Active Blood Glucose Monitor System w/Device Daily intraderma lly DX CODE:E11.9 for 99 months Mar, Active Syringe (Disposable) 140 ML dx:e11.9 SQ four times daily for 30 day(s ) Active Rolling Walker 1 as directed as directed (Z89.512) Daily for 90 day(s) June, Active Lidoderm 5 % 1 patch remove after 12 hours Externally Once a day for 21 day(s) Oct, Active Potassium chloride 20 meq 1 tab orally BID for 90 days Not-Taking Gabapentin 300 MG 1 cap Orally three times daily for 30 Days Active Accu-Chek Soft Touch Lancets - as directed E11.9 five times per day for 30 day(s) Apr, Active PROCEDURES No Information RESULTS No Results REASON FOR VISIT shingles, MAW will have to be rescheduled MEDICAL (GENERAL) HISTORY Type Description Date Medical History CKD V/ESRD, 2/2 diabetic nep hropathy (Dr. Dong/Maureen Velázquez NP) Medical History CAD ([place])--NST 04/05: normal perfusion , EF 70% Medical History HFpEF - [place] Medical History Type 2 diabetes with nephrop athy, retinopathy and neuropathy, goal HbA1c 7.5 Medical History DM neuropathy with chronic foot ulcerati ons (Megha, Anne) Medical History Hypertension, goal BP 130/80 Medical History Charcot foot ([place]) Medical History Hyperlipidemia, [id number] risk was 3. 7 in 2018 Medical History Inflammatory anemia/Fe Def Anemia Medical History Depression Medical History Fibromyalgia Medical History DJD/OA (back) Medical History Chemical nuclear cardiac str ess test @ [facility] 04/10/10 - no reversible defects/ischemia Surgical History tonsillectomy 1975 Surgical History D & C 1973, 1976 x 2 Surgical History 1972, 1977 Surgical History "spine cyst" removed Surgical History hysterectomy (for bleeding) 1993 Surgical History R carpal tunnel ([place]) 1999 Surgical History cholecystectomy 2001 Surgical History cardiac cath ([place]) - insignificant CAD 12/2003 Surgical History cardiac cath ([place]) - insignificant CAD 05/2005 Surgical History R 5th toe amputation 09/2010 Surgical History L 5th toe amputation 11/2010 Surgical History cardiac cath ([place]) - insignificant CAD 12/2010 Surgical History R 3rd to amputation 08/2011 Surgical History L 3rd toe amp 01/04 Surgical History appendectomy 04/07 Surgical History R 2nd toe Amputation 04/14/12 Surgical History Right AVF placed Dr. Powell 05/2015 Surgical History OM (MSSA) requiring amp rays left 05/28 Surgical History left radiocephalic AV fistul a-Dr Powell Syr- 09/05: non functioning 05/2015 Surgical History Salters- [place]-Diverticulosis 07/07 Surgical History left thumb surgery- [place] 06/01/17 Surgical History Excisional debridement throu gh muscle, skin and subcutaneous tissue left foot with application of wound VAC. ([place]) 05/31/18 Surgical History Incision of complex abscess with peroneal tendon sheath, lateral compartment abscess, left foot. ([place]) 05/21/18 Surgical History Left Below the Knee ambutation (Dr. Marcela isidro) 06/24/18 Surgical History Left AV Fistula creation (Dr. 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 She is dealing with the [facility] prosthetic clinic for this. I will send the referral to them to address the issue she is having. Oct, Herpes zoster without complication (ICD-10 - B02 .9) She has sub-acute herpes zoster. She is still having quite a bit of pain from this, so I added topical Lidoderm patches for this. I also increased her gabapentin to 300mg TID for the next month. We discussed post-herpetic neuralgia and why this is important to try to avoid by getting a better handle on the pain during this phase. Oct, Chronic kidney disease, stage 5 (ICD-10 - N18.5) She is dialysis dependent. She continues to get dialysis, but her access via the fistula has been compromized recently. She is requesting a referral to vascular surgery for a fistulogram and possible angiogram or angioplasty. I will initiate this referral. Oct, Diabetes mellitus (ICD-10 - E11.9) She needs renewal of supplies. We will need to discuss control of her DM in more detail at her follow-up visit. PLAN OF TREATMENT Treatment Notes Assessment Notes Clinical Notes Status post below knee amputation of left lower extremity She is having issues with the stump and fit of her prosthesis. She is dealing with the [facility] prosthetic clinic for this. I will send the referral to them to address the issue she is having. Herpes zoster without complication She h as sub-acute herpes zoster. She is still having quite a bit of pain from this, so I added topical Lidoderm patches for this. I also increased her gabapentin to 300mg TID for the next month. We d iscussed post-herpetic neuralgia and why this is important to try to avoid by getting a better handle on the pain during this phase. Chronic kidney disease, stage 5 She is d ialysis dependent. She continues to get dialysis, but her access via the fistula has been compromized recently. She is requesting a referral to vascular surgery for a fistulogram and possible an giogram or angioplasty. I will initiate this referral. Diabetes mellitus She needs renewal of supplies. We will need to discuss control of her DM in more detail at her follow-up visit. Referrals Referral Date Details replacment aleja srivastava [facility] fistologram with possible an gioplastyTony Next Appt Details 4-6 Weeks Reason:follow-up ruby becerra Provider Name:Jeremy Cornell, 2020-11-2 8 02:15:00 PM, [address] [facility], , [place], [address], Follow Up:4-6 Weeksfollow-up mariam diabetes Insurance Providers Payer Name Payer Address Payer Phone Insured Name Patient Relati onship to Insured Coverage Start Date Coverage End Date MEDICARE Part A [address] [facility] [id number] CARMELITA NARAYAN self
--- OUTSIDE RECORDS SUMMARY | 2020-12-06 16:06 | CCD | Continuity of Care Document ---
Author Author Norma QUIÑONES MD Organization Unknown Address [address], [address] [place] [address] Phone [phone] Care Team Providers Care Healthcare Administration Internship Name Role Phone Zulema Mckeon M.D. AUTM [phone] Jeremy Cornell M.D. AUTM [phone] AUTM Unavailable Jennifer Yanez M.D. AUTM AUTM Unavailable Problems Active Problems Provider Date [...] lb BMI (Body Mass Index) 39.9 kg/m2 Graham Body Weight 150 lb Weight 126.101 kg BSA (Body Surface Area) 2.40 m2 11/08/2020 1:39pm BP Systolic 150 mmHg BP Diastolic 52 mmHg Body Temperature 98.4 F Height 70 inches 5'10" Weight 270.38 lb BMI (Body Mass Index) 38.8 kg/m2 Graham Body Weight 150 lb Weight 122.642 kg BSA (Body Surface Area) 2.37 m2 Results Description No Information Available Procedures Date Code Description Status 11/29/2020 99363 Office/Outpatient Established Mo d MDM 30-39 Min Completed 11/08/2020 16671 Office/Outpatient Established Mo d MDM 30-39 Min Completed 06/04/2020 78768 Office/Outpatient Established Lo w MDM 20-29 Min Completed Medical Devices Description No Information Available Encounters Type Date Location Provider Dx Diagnosis Office Visit 11/29/2020 10:45a [facility] Rat na Carlos Quiñones MD N18.6 End stage renal disease Z99.2 Dependence on renal dialysis T82.898A Oth complication of vascular prosth dev/grft, init T82.858A Stenosis of other vascular p rosth dev/grft, init Office Visit 11/08/2020 1:45p [facility] Allie Quiñones MD N18.6 End stage renal disease Z99.2 Dependence on renal dialysis B02.9 Zoster without complications T82.898A Oth complication of vascular prosth dev/grft, init I70.203 Unsp athscl atka arteries of extremities, bilateral legs Office Visit 06/04/2020 4:00p [facility] Josselin alaniz MD I70.203 Unsp athscl atka arteries of extremiti es, bilateral legs Z89.512 [...] MD 11/08/2020 I70.203 Unspecified atherosc lerosis of atka arteries of extremities, bilateral legs Paulette Quiñones MD 06/04/2020 I70.203 Unspecified atherosc lerosis of atka arteries of extremities, bilateral legs Josselin Dubose MD 06/04/2020 Z89.512 Acquired absence of left leg bel ow knee Josselin Dubose MD Plan of Treatment Future Appointment(s):* 12/10/2020 4:15 pm - Tony Enriquez MD at [facility] * 12/04/2020 2:00 pm - Paulette Qui[facility]ones MD at [facility] 11/29/2020 - Paulette Quiñones MD* N18.6 End stage renal disease* New Xrays:* Fistulogram, Scheduled: 12/04/20 * Z99.2 Dependence on renal dialysis* New Xrays:* Fistulogram, Scheduled: 12/04/20 * T82.898A Other specified complication of vascular prosthetic devices, implants and grafts, initial encounter * T82.858A Stenosis of other vascular prosthetic devices, implants and grafts, initial encounter Functional Status Description No Information Available Mental Status Description No Information Available Referrals Refer to Dr Reason for Referral Status Appt Date Tony Enriquez MD EVAL AV FISTULA Scheduled 10/22/[address] [id number] [phone]
--- OUTSIDE RECORDS SUMMARY | 2020-12-06 16:07 | CCD ---
Author Author [facility] Organization [facility] Address Unknown Phone Unavailable Care Team Providers Care Print Cutter Name Role Phone Jeremy Cornell Unavailable PROBLEMS Type Condition ICD9-CM Code SYK38-BR Code Onset Dates Condition S tatus W/U Status Risk SNOMED Code Notes Problem Depressive disorder, not elsewhere classified F32. 9 Active confirmed 11677552 Problem Essential hypertension I10 Active confirmed 08655807 Problem Obesity E66.9 Active confirmed 735858301 Problem Mixed hyperlipidemia E78.2 Active confirmed 824301413 Problem Amplified musculoskeletal pain, diffuse M79.1 Active confirmed 967918919 Problem Cellulitis of unspecified part of limb L03.119 A ctive confirmed 952690366 Problem Hearing loss H91.90 Active confirmed 7717911 1 Problem Status post below knee amputation of left lower extremity Z89.512 Active confirmed 256636059016248 Problem Chronic disease anemia D63.8 Active confirmed 216927771 Problem Other specified diabetes mellitus with foot ulcer E13.621 Active confirmed 0440464 Problem Type 2 diabetes mellitus with hyperglycemia E11.65 Active confirmed 72431913 Problem Lower limb amputation, other toe(s) Z89.429 Acti ve confirmed 972100503 Problem CAD (coronary artery disease) I25.10 Active confirm ed 75770771 Problem Diabetes mellitus E11.9 Active confirmed 73 678273 Problem Adjustment disorder with anxious mood F43.22 Ac tive confirmed 65490569 Problem Diabetic polyneuropathy associated with type 2 d iabetes mellitus E11.42 Active confirmed 83907951 Problem Carpal tunnel syndrome, unspecified laterality G56 .00 Active confirmed 26029806 Problem Charcot foot due to diabetes mellitus E11.610 Ac tive confirmed 14618657 Problem residential current use of insulin Z79.4 Active conf irmed 594255381 Problem Stage 4 chronic kidney disease N18.4 Active confir med 716468854 Problem Non-healing wound of amputation stump T87.89 Ac tive confirmed 307535182 Problem Traumatic open wound of left lower leg, subsequent enc ounter S81.802D Active confirmed 650403499 Problem Hypertensive chronic kidney disease with stage 1 through stage 4 chronic kidney disease, or unspecified chronic kidney disease I12.9 Active confirmed 65299465 Problem Chronic kidney disease, stage 5 N18.5 Active confi rmed 154901149 Problem Multilevel degenerative disc disease M53.9 Act marquez confirmed 44561587 Problem Type 2 diabetes mellitus with diabetic chronic kidney disease E11.22 Active confirmed 593972783048 Problem Methicillin susceptible Staphylococcus aureus infection A49.01 Active confirmed 737442354 Problem CKD (chronic kidney disease) stage 4, GFR 15-29 ml/min N18.4 Active confirmed 744625490 Problem Type 2 diabetes mellitus with other specified complication E11.69 Active confirmed 46975069805146 Problem residential (current) use of insulin Z79.4 Activ e confirmed 906831816 Problem Memory impairment R41.3 Active confirmed 38 8802985 Problem Tinnitus of both ears H93.13 Active confirmed 6401696317892 ALLERGIES Allergen (clinical drug ingredient) Drug/Non Drug Allergy do cumented on EMR Reaction Allergy Type Onset Date Status Sulfa (for allergy use only) Unknown Drug Allergy Active Vicodin itching Drug Allergy Active aspirin / citric acid / sodium bicarbonate Arthur([facility] Code:[address]-27) Hives Drug Allergy Active Adhesive Tape rash Drug Allergy Active ENCOUNTERS from 1950 to 2020-11-16 Encounter Location Date Provider Diagnosis [facility] [phone] [place] [address] Oct, Jeremy Cornell IMMUNIZATIONS Vaccine Route Administration Date Status Rocephin [...] Education Language: Question Answer Notes Languages spoken: Thai Latter-Day: Question Answer Notes Latter-Day 13 [employer] No church beliefs that would impact healthcare Sexual Hx: [...] you a: former smoker REASON FOR REFERRAL No Information VITAL SIGNS No information MEDICATIONS Medication SIG (Take, Route, Frequency, Duration) Notes Start Da te End Date Status Test Strips - as directed Verio Reflect te st 2-4 times a day dx: E11.65 for 30 days Oct, Active Paxil 40 MG 1 tablet in the morning Orally Once a day for 90 days Jan, Active Acetaminophen 325 MG 2 tablets Orally every 6 hrs prn pain Active Alcohol Pads 70 % as directed B/S Testing 2-4 times a day dx: E11.65 for 30 days Oct, Active Coreg 12.5MG 1 tab orally twice daily for 90 days Active predniSONE 10 MG (48) as directed Orally Take 60 m gx4 days, 40mgx4 days, [id number], for 12 days Oct, Active Lancets - as directed Delica 2-4 times daily dx: E11.65 fo r 30 days Oct, Active Sofia-Nicolas 1 tablet Orally Once a day for 90 day(s) Active Tylenol PM Extra Strength 500-25 MG 1 tablet at bedtim e as needed Orally Once a day for 30 day(s) Apr, Active Calcitriol 0.25 MCG TAKE 2 CAPSULES EVERY DAY ON THURSDAY THROUGH THURSDAY for 84 Active Lantus SoloStar 100 UNIT/ML 40 units am 40 units pm, MDD 90 Subcutaneous bid MDD 80 units daily. June, Active valACYclovir HCl 1 GM 1 tablet Orally 3 times a day Oct Active Aspirin 81 81 MG 1 tablet Orally Once a day for 30 day(s) Active Rolling Walker 1 as directed as directed (Z89.512) Daily for 90 day(s) June, Active Gabapentin 300 MG 1 cap Orally three times daily for 30 Days Active Lidoderm 5 % 1 patch remove after 12 hours Externally Once a day for 21 day(s) Oct, Active Gentamicin Sulfate 0.1 % as directed topically twice daily to ul cer on toe Apr, Not-Taking Accu-Chek Soft Touch Lancets - as directed E11.9 five times per day for 30 day(s) Apr, Active Torsemide 20 MG 2 tablet Orally BID for 90 days Apr, 20 Not-Taking Blood Glucose Monitor System w/Device Daily intraderma lly DX CODE:E11.9 for 99 months Mar, Active FreeSilverado Janette Sensor System - as directed topically four times daily for 30 days Active Atorvastatin Calcium 40 mg 1 tablet Orally before bedtime for 90 days Active Wheelchair - as directed topically Daily for 999 days 2020 Active Ferrous Sulfate 325 (65 Fe) MG 1 tablet Orally twice daily for 90 day s Active Syringe (Disposable) 140 ML dx:e11.9 SQ four times daily for 30 day(s ) Active Fluconazole 150 MG 1 tablet Orally once for 1 day Aug, Not-Taking Allopurinol 100 MG TAKE 1 TABLET BY MOUTH ONCE DAILY Oral Once a day Active oxyCODONE-Acetaminophen 5-325 MG 1 tablet as needed Orally every 6 hr s Active Spironolactone 25 mg 1 tablet Orally bid for 90 days Active BD Insulin Syringe Ultrafine 31G X 5/16 Use for both l antus and humalog injections SQ/ Dx: E11.9 six times a day for 30 Days Active Potassium chloride 20 meq 1 tab orally BID for 90 days Not-Taking NovoLOG FlexPen 100 UNIT/ML Use as per sliding scale w ith meals Subcutaneous AC and HS, MDD=42 units for 30 days Mar, Active Nystatin 485152 UNIT/GM 1 application Externally Twice a day for 28 day(s) Dec, Not-Taking HumaLOG 100 UNIT/ML as directed per sliding scal e Subcutaneous with meals per sliding scale for 30 days administer per sliding scale Not-Taking Needle (Reusable) 30G X 1/2 DX : 250.4 subcutaneously four times daily for 30 Active Blood Glucose Test blood glucose 1 strip E11.9 Five times a day for 90 day(s) Active OneTouch Ultra II Test Strips 1 ICD:E11.9 FSBS 5 times per day f or 90 day(s) Mar, Active HumaLOG 100 UNIT/ML USE DIRECTED PER SLIDING SCALE WITH MEALS, max daily dose 42 units. subcutaneously AC and HS for 30 days Not-Taking FreeStyle Janette 14 Day Felt - as directed transdermally contin uously Dec, Active PROCEDURES No Information RESULTS No Results REASON FOR VISIT HOSP f/u MEDICAL (GENERAL) HISTORY Type Description Date Medical History CKD V/ESRD, 2/2 diabetic nep hropathy (Dr. Dong/Maureen Velázquez NP) Medical History CAD ([place])--NST 04/05: normal perfusion , EF 70% Medical History HFpEF - [place] Medical History Type 2 diabetes with nephrop athy, retinopathy and neuropathy, goal HbA1c 7.5 Medical History DM neuropathy with chronic foot ulcerati ons (Megha, Anne) Medical History Hypertension, goal BP 130/80 Medical History Charcot foot ([place]) Medical History Hyperlipidemia, LAIEZ97-jiqu risk was 3. 7 in 2018 Medical History Inflammatory anemia/Fe Def Anemia Medical History Depression Medical History Fibromyalgia Medical History DJD/OA (back) Medical History Chemical nuclear cardiac str ess test [facility] 04/10/10 - no reversible defects/ischemia Surgical History tonsillectomy 1974 Surgical History D & C 1973, 1976 x 2 Surgical History 1972, 1977 Surgical History "spine cyst" removed Surgical History hysterectomy (for bleeding) 1993 Surgical History R carpal tunnel ([place]) 1999 Surgical History cholecystectomy 2001 Surgical History cardiac cath ([place]) - insignificant CAD 12/2003 Surgical History cardiac cath ([facility] [place]) - insignificant CAD 05/2005 Surgical History R 5th toe amputation 09/2010 Surgical History L 5th toe amputation 11/2010 Surgical History cardiac cath ([facility] [place]) - insignificant CAD 12/2010 Surgical History R 3rd to amputation 08/2011 Surgical History L 3rd toe amp 01/04 Surgical History appendectomy 2/13 Surgical History R 2nd toe Amputation 04/14/12 Surgical History Right AVF placed Dr. Powell 05/2015 Surgical History OM (MSSA) requiring amp rays left 05/28 Surgical History left radiocephalic AV fistul a-Dr Andre Caldwlel- 09/05: non functioning 05/2015 Surgical History [place]- [place]-Diverticulosis 07/07 Surgical History left thumb surgery- [place] 06/01/17 Surgical History Excisional debridement throu gh muscle, skin and subcutaneous tissue left foot with application of wound VAC. ([place]) 05/31/18 Surgical History Incision of complex abscess [...] No Information FUNCTIONAL STATUS No Information ASSESSMENTS No Information PLAN OF TREATMENT Medication Medication Name Sig Start Date Stop Date Test Strips - as directed Verio Reflect te st 2-4 times a day dx: E11.65 for 30 days Oct, Alcohol Pads 70 % as directed B/S Testing 2-4 times a day dx: E11.65 for 30 days Oct, Lancets - as directed Delica 2-4 times daily dx: E 11.65 for 30 days Oct, Calcitriol 0.25 MCG TAKE 2 CAPSULES EVERY DAY ON THURSDAY THROUGH THURSDAY for 84 Lidoderm 5 % 1 patch remove after 12 hours Externally Once a day for 21 day(s) Oct, Gabapentin 300 MG 1 cap Orally three times daily for 30 Days predniSONE 10 MG (48) as directed Orally Take 60 m gx4 days, 40mgx4 days, 52apt0yimg, for 12 days Oct, Next Appt Details Provider Name:Jeremy Cornell, 2020-10-0 7 02:00:00 PM, [address], , [place], [address], Insurance Providers Payer Name Payer Address Payer Phone Insured Name Patient Relati onship to Insured Coverage Start Date Coverage End Date MEDICARE Part A and B [address] [facility] [address] [phone] CARMELITA NARAYAN self
--- OUTSIDE RECORDS SUMMARY | 2020-12-06 16:07 | CCD | Continuity of Care Document ---
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 AUTM [phone] Jeremy Cornell M.D. AUTM [phone] AUTM Unavailable Jennifer Yanez M.D. AUTM AUTM [...] Type 1 diabetes mellitus Onset: 05/17/19 15 Social History Type Date Description Comments Sex Unknown ETOH Use Denies alcohol use Tobacco Use Start: Unknown End: Unknown Patient is a former smoker QUIT 19 YEARS AGO Recreational Drug Use Denies Drug Use Smoking Status Reviewed: 04/02/20 Patient is a former smoker QU IT 19 YEARS AGO Allergies, Adverse Reactions, Alerts Active Allergies Criticality Reaction | Severity Comments [...] tabs if needed for pain 60caps Unknown Calcitriol 0.25mcg Capsules 1 a day Thu Weds And -Thu Unknown Paroxetine HCL 40mg Tablets 1 PO [...] Available Vital Signs Date Vital Result Comment 11/08/2020 1:39pm BP Systolic 150 mmHg BP Diastolic 52 mmHg Body Temperature 98.4 F Height 70 inches 5'10" Weight 270.38 lb BMI (Body Mass Index) 38.8 kg/m2 [place] Body Weight 150 lb Weight 122.642 kg BSA (Body Surface Area) 2.37 m2 06/04/2020 3:42pm BP Systolic 145 mmHg BP Diastolic 67 mmHg Height 70 inches 5'10" Weight 260.00 lb BMI (Body Mass Index) 37.3 kg/m2 [place] Body Weight 150 lb Weight 117.936 kg BSA (Body Surface Area) 2.33 m2 Results Description No Information Available Procedures Date Code Description Status 06/04/2020 54170 Office/Outpatient Established Lo w MDM 20-29 Min Completed 05/24/2020 06569 Office/Outpatient Established Lo w MDM 20-29 Min Completed 05/24/2020 26654 Inject Tendon/Ligament Completed Medical Devices Description No Information Available Encounters Type Date Location Provider Dx Diagnosis Office Visit 06/04/2020 4:00p [facility] Josselin alaniz MD I70.203 Unsp athscl [place] arteries of extremiti es, bilateral legs Z89.512 Acquired absence of left leg below knee Office Visit 05/24/2020 1:00p [facility] Orthoped[facility] Mario Hunter MD M65.332 Trigger finger, left middle finger M65.341 Trigger finger, right ring f izabel M25.541 Pain in joints of right hand Assessments Date Code Description Provider 06/04/2020 I70.203 Unspecified atherosc lerosis of [place] arteries of extremities, bilateral legs Josselin Dubose MD 06/04/2020 Z89.512 Acquired absence of left leg bel ow knee Josselin Dubose MD 05/24/2020 M65.332 Trigger finger, left middle fing er Mario Hunter MD 05/24/2020 M65.341 Trigger finger, right ring finge r Mario Hunter MD 05/24/2020 M25.541 Pain in joints of right hand Sco tt MD Elsa Plan of Treatment No Information Available Functional Status Description No Information Available Mental Status Description No Information Available Referrals Refer to Reason for Referral Status Appt Date Tony Enriquez MD EVAL AV FISTULA Scheduled 10/22/2020 [address], [address] [address] [phone]
--- OUTSIDE RECORDS SUMMARY | 2020-12-06 16:07 | CCD | Continuity of Care Document ---
Author Author Norma QUIÑONES MD Organization Unknown Address [address], [address] [place] [address] Phone [phone] Care Team Providers Care Slurry Control Operator Helper Name Role Phone Zulema Mckeon M.D. AUTM [phone] Jeremy Cornell M.D. AUTM [phone] AUTM Unavailable Jenniefr Yanez M.D. AUTM [phone] AUTM Unavailable Problems Active Problems Provider [...] lb BMI (Body Mass Index) 39.9 kg/m2 [place] Body Weight 150 lb Weight 126.101 kg BSA (Body Surface Area) 2.40 m2 11/08/2020 1:39pm BP Systolic 150 mmHg BP Diastolic 52 mmHg Body Temperature 98.4 F Height 70 inches 5'10" Weight 270.38 lb BMI (Body Mass Index) 38.8 kg/m2 [employer] Body Weight 150 lb Weight 122.642 kg BSA (Body Surface Area) 2.37 m2 Results Description No Information Available Procedures Date Code Description Status 11/29/2020 23733 Office/Outpatient Established Mo d MDM 30-39 Min Completed 11/08/2020 78330 Office/Outpatient Established Mo d MDM 30-39 Min Completed 06/04/2020 38280 Office/Outpatient Established Lo w MDM 20-29 Min Completed Medical Devices Description No Information Available Encounters Type Date Location Provider Dx Diagnosis Office Visit 11/29/2020 10:45a [facility] Rat na Carlos Quiñones MD N18.6 End stage renal disease Z99.2 Dependence on renal dialysis T82.898A Oth complication of vascular prosth dev/grft, init T82.858A Stenosis of other vascular p rosth dev/grft, init Office Visit 11/08/2020 1:45p [facility] Allie Quiñones MD N18.6 End stage renal disease Z99.2 Dependence on renal dialysis B02.9 Zoster without complications T82.898A Oth complication of vascular prosth dev/grft, init I70.203 Unsp athscl [place] arteries of extremities, bilateral legs Office Visit 06/04/2020 4:00p [facility] Josselin alaniz MD I70.203 Unsp athscl [place] arteries of extremiti es, bilateral legs Z89.512 [...] MD 11/08/2020 I70.203 Unspecified atherosc lerosis of [place] arteries of extremities, bilateral legs Paulette Quiñones MD 06/04/2020 I70.203 Unspecified atherosc lerosis of [place] arteries of extremities, bilateral legs Josselin Dubose MD 06/04/2020 Z89.512 Acquired absence of left leg bel ow knee Josselin Dubose MD Plan of Treatment Future Appointment(s):* 12/10/2020 4:15 pm - Tony Enriquez MD at [facility] * 12/04/2020 2:00 pm - Paulette Quiñones MD at [facility] 11/29/2020 - Paulette Quiñones MD* N18.6 [...] MD EVAL AV FISTULA Scheduled 10/22/[address] [id number] [phone]
--- OUTSIDE RECORDS SUMMARY | 2020-12-06 16:07 | CCD ---
Author Author [facility] Organization [facility] Address Unknown Phone Unavailable Care Team Providers Care Rn Disease Management Name Role Phone Juan Miguel Quarles Unavailable PROBLEMS Type Condition ICD9-CM Code [id number] Code Onset Dates Condition S tatus W/U Status Risk SNOMED Code Notes Problem Depressive disorder, not elsewhere classified F32. 9 Active confirmed 27537346 Problem Essential hypertension I10 Active confirmed 19721271 Problem Obesity E66.9 Active confirmed 240828315 Problem Mixed hyperlipidemia E78.2 Active confirmed 583595473 Problem Amplified musculoskeletal pain, diffuse M79.1 Active confirmed 197056466 Problem Cellulitis of unspecified part of limb L03.119 A ctive confirmed 974011448 Problem Hearing loss H91.90 Active confirmed 6056006 1 Problem Status post below knee amputation of left lower extremity Z89.512 Active confirmed 209737405057168 Problem Chronic disease anemia D63.8 Active confirmed 936463121 Problem Other specified diabetes mellitus with foot ulcer E13.621 Active confirmed 6184046 Problem Type 2 diabetes mellitus with hyperglycemia E11.65 Active confirmed 48123077 Problem Lower limb amputation, other toe(s) Z89.429 Acti ve confirmed 929107166 Problem CAD (coronary artery disease) I25.10 Active confirm ed 46590296 Problem Diabetes mellitus E11.9 Active confirmed 73 610533 Problem Adjustment disorder with anxious mood F43.22 Ac tive confirmed 47016714 Problem Diabetic polyneuropathy associated with type 2 d iabetes mellitus E11.42 Active confirmed 90159452 Problem Carpal tunnel syndrome, unspecified laterality G56 .00 Active confirmed 03467825 Problem Charcot foot due to diabetes mellitus E11.610 Ac tive confirmed 06211174 Problem 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.4 Active conf irmed 620360680 Problem Stage 4 chronic kidney disease N18.4 Active confir med 299683832 Problem Non-healing wound of amputation stump T87.89 Ac tive confirmed 046965931 Problem Traumatic open wound of left lower leg, subsequent enc ounter S81.802D Active confirmed 078398865 Problem Hypertensive chronic kidney disease with stage 1 through stage 4 chronic kidney disease, or unspecified chronic kidney disease I12.9 Active confirmed 78861944 Problem Chronic kidney disease, stage 5 N18.5 Active confi rmed 943249337 Problem Multilevel degenerative disc disease M53.9 Act marquez confirmed 27740682 Problem Type 2 diabetes mellitus with diabetic chronic kidney disease E11.22 Active confirmed 223026097396 Problem Methicillin susceptible Staphylococcus aureus infection A49.01 Active confirmed 312987844 Problem CKD (chronic kidney disease) stage 4, GFR 15-29 ml/min N18.4 Active confirmed 131023795 Problem Type 2 diabetes mellitus with other specified complication E11.69 Active confirmed 87657266998720 Problem retirement (current) use of insulin Z79.4 Activ e confirmed 905460590 Problem Memory impairment R41.3 Active confirmed 38 1561288 Problem Tinnitus of both ears H93.13 Active confirmed 1839811074034 ALLERGIES Allergen (clinical drug ingredient) Drug/Non Drug Allergy do cumented on EMR Reaction Allergy Type Onset Date Status Sulfa (for allergy use only) Unknown Drug Allergy Active Vicodin itching Drug Allergy Active aspirin / citric acid / sodium bicarbonate Arthur([facility] Code:[address]-09) Hives Drug Allergy Active Adhesive Tape rash Drug Allergy Active ENCOUNTERS from 1952 to 2020-11-06 Encounter Location Date Provider Diagnosis [facility] [place] Resident [address] [phone] [place] [address] 2020 Juan Miguel Quarles IMMUNIZATIONS Vaccine Route Administration Date Status Rocephin [...] Education Language: Question Answer Notes Languages spoken: Frisian Mormon: Question Answer Notes Mormon 13 Pentecostal No jehovah's witness beliefs that would impact healthcare Sexual Hx: [...] Notes Start Da te End Date Status Alcohol Pads 70 % as directed B/S Testing 2-4 times a day dx: E11.65 for 30 days Oct, Active Paxil 40 MG 1 tablet in the morning Orally Once a day for 90 days Jan, Active valACYclovir HCl 1 GM 1 tablet Orally 3 times a day Oct Active Calcitriol 0.25 MCG 2 caps Orally once daily - Active Coreg 12.5MG 1 tab orally twice daily for 90 days Active Acetaminophen 325 MG 2 tablets Orally every 6 hrs prn pain Active Lancets - as directed Delica 2-4 times daily dx: E11.65 fo r 30 days Oct, Active Sofia-Nicolas 1 tablet Orally Once a day for 90 day(s) Active Gentamicin Sulfate 0.1 % as directed topically twice daily to ul cer on toe Apr, Not-Taking Test Strips - as directed Verio Reflect te st 2-4 times a day dx: E11.65 for 30 days Oct, Active Lantus SoloStar 100 UNIT/ML 40 units am 40 units pm, MDD 90 Subcutaneous bid MDD 80 units daily. June, Active Tylenol PM Extra Strength 500-25 MG 1 tablet at bedtim e as needed Orally Once a day for 30 day(s) Apr, Active Aspirin 81 81 MG 1 tablet Orally Once a day for 30 day(s) Active Blood Glucose Monitor System w/Device Daily intraderma lly DX CODE:E11.9 for 99 months 10 Mar, 2015 Active Gabapentin 300 MG 1 cap Orally three times daily for 30 Days Active Lidoderm 5 % 1 patch remove after 12 hours Externally Once a day for 21 day(s) Oct, Active Rolling Walker 1 as directed as directed (Z89.512) Daily for 90 day(s) June, Active [employer] Ultra II Test Strips 1 ICD:E11.9 FSBS 5 times per day f or 90 day(s) Mar, Active Torsemide 20 MG 2 tablet Orally BID for 90 days Apr, 20 Not-Taking Accu-Chek Soft Touch Lancets - as directed E11.9 five times per day for 30 day(s) Apr, Active Widespace Janette Sensor System - as directed topically [...] units for 30 days Mar, Active Nystatin 804503 UNIT/GM 1 application Externally Twice a day [...] times a day for 90 day(s) Active HumaLOG 100 UNIT/ML USE DIRECTED PER SLIDING SCALE WITH MEALS, max daily dose 42 units. subcutaneously AC and HS for 30 days Not-Taking FreeStyle Janette 14 Day [place] - as directed transdermally contin uously Dec, Active PROCEDURES No Information RESULTS No Results REASON FOR VISIT medication MEDICAL (GENERAL) HISTORY Type Description Date Medical History CKD V/ESRD, 2/2 diabetic nep hropathy (Dr. Dong/Maureen Velázquez NP) Medical History CAD ([place])--NST 04/05: normal perfusion , EF 70% Medical History HFpEF - [facility] Medical History Type 2 diabetes with nephrop athy, retinopathy and neuropathy, goal HbA1c 7.5 Medical History DM neuropathy with chronic foot ulcerati ons ([place]) Medical History Hypertension, goal BP 130/80 Medical History Charcot foot ([place]) Medical History Hyperlipidemia, [id number] risk was 3. 7 in 2018 Medical History Inflammatory anemia/Fe Def Anemia Medical History Depression Medical History Fibromyalgia Medical History DJD/OA (back) Medical History Chemical nuclear cardiac str ess test @ [facility] 04/10/10 - no reversible defects/ischemia Surgical History tonsillectomy 1974 Surgical History D & C 1973, 1976 x 2 Surgical History 1972, 1977 Surgical History "spine cyst" removed Surgical History hysterectomy (for bleeding) 1993 Surgical History R carpal tunnel ([place]dd[place]) 1999 Surgical History cholecystectomy 2001 Surgical History cardiac cath ([place]) - insignificant CAD 12/2003 Surgical History cardiac cath ([place]) - insignificant CAD 05/2005 Surgical History R 5th toe amputation 09/2010 Surgical History L 5th toe amputation 11/2010 Surgical History cardiac cath ([place]) - insignificant CAD 12/2010 Surgical History R 3rd to amputation 08/2011 Surgical History L 3rd toe amp 01/04 Surgical History appendectomy 04/07 Surgical History R 2nd toe Amputation 04/14/12 Surgical History Right AVF placed Dr. Powell 05/2015 Surgical History OM (MSSA) requiring amp rays left 05/28 Surgical History left radiocephalic AV fistul a-Dr Powell Syr- 09/05: non functioning 05/2015 Surgical History [place]- [place]-Diverticulosis 07/07 Surgical History left thumb surgery- [place] 06/01/17 Surgical History Excisional debridement throu gh muscle, skin and subcutaneous tissue left foot with application of wound VAC. ([place]) 05/31/18 Surgical History Incision of complex abscess with peroneal tendon sheath, lateral compartment abscess, left foot. ([place]) 05/21/18 Surgical History Left Below the Knee [...] day dx: E11.65 for 30 days Oct, Gabapentin 300 MG 1 cap Orally three times daily for 30 Days Lancets - as directed Delica 2-4 times daily dx: E 11.65 for 30 days Oct, Lidoderm 5 % 1 patch remove after 12 hours Externally Once a day for 21 day(s) Oct, Next Appt Details Provider Name:Jeremy Cornell, 2020-10-0 7 02:00:00 PM, [address], , [place], [address], Insurance Providers Payer Name Payer Address Payer Phone Insured Name Patient Relati onship to Insured Coverage Start Date Coverage End Date MEDICARE Part A and B [address] [facility] [id number] CARMELITA NARAYAN self
--- OUTSIDE RECORDS SUMMARY | 2020-12-06 16:07 | CCD ---
Author Author [facility] Organization [facility] Address Unknown Phone Unavailable Care Team Providers Care Windshield Technician Name Role Phone Juan Miguel Quarles Unavailable PROBLEMS Type Condition ICD9-CM Code EXK13-IQ Code Onset Dates Condition S tatus W/U Status Risk SNOMED Code Notes Problem Obesity E66.9 Active confirmed 138419511 Problem Amplified musculoskeletal pain, diffuse M79.1 Active confirmed 989929344 Problem Essential hypertension I10 Active confirmed 66915356 Problem Hearing loss H91.90 Active confirmed 3178197 1 Problem Mixed hyperlipidemia E78.2 Active confirmed 962307750 Problem Methicillin susceptible Staphylococcus aureus infection A49.01 Active confirmed 549431253 Problem Cellulitis of unspecified part of limb L03.119 A ctive confirmed 736557729 Problem Non-healing wound of amputation stump T87.89 Ac tive confirmed 290172777 Problem Lower limb amputation, other toe(s) Z89.429 Acti ve confirmed 786920653 Problem Status post below knee amputation of left lower extremity Z89.512 Active confirmed 729050526362157 Problem Chronic disease anemia D63.8 Active confirmed 348169190 Problem Depressive disorder, not elsewhere classified F32. 9 Active confirmed 63929629 Problem Type 2 diabetes mellitus with hyperglycemia E11.65 Active confirmed 75880142 Problem Diabetic polyneuropathy associated with type 2 d iabetes mellitus E11.42 Active confirmed 27468235 Problem CAD (coronary artery disease) I25.10 Active confirm ed 47696933 Problem Charcot foot due to diabetes mellitus E11.610 Ac tive confirmed 15851241 Problem Adjustment disorder with anxious mood F43.22 Ac tive confirmed 17174100 Problem Stage 4 chronic kidney disease N18.4 Active confir med 118958261 Problem Carpal tunnel syndrome, unspecified laterality G56 .00 Active confirmed 61826833 Problem Other specified diabetes mellitus with foot ulcer E13.621 Active confirmed 0167895 Problem 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 Z79.4 Active conf irmed 031092771 Problem Traumatic open wound of left lower leg, subsequent enc ounter S81.802D Active confirmed 692033083 Problem Hypertensive chronic kidney disease with stage 1 through stage 4 chronic kidney disease, or unspecified chronic kidney disease I12.9 Active confirmed 32648024 Problem Type 2 diabetes mellitus with other specified complication E11.69 Active confirmed 43514291196061 Problem Chronic kidney disease, stage 5 N18.5 Active confi rmed 228891563 Problem CKD (chronic kidney disease) stage 4, GFR 15-29 ml/min N18.4 Active confirmed 408100419 Problem Type 2 diabetes mellitus with diabetic chronic kidney disease E11.22 Active confirmed 495823754708 Problem Multilevel degenerative disc disease M53.9 Act marquez confirmed 65065292 Problem Diabetes mellitus E11.9 Active confirmed 73 829413 Problem MCC (current) use of insulin Z79.4 Activ e confirmed 463052340 Problem Memory impairment R41.3 Active confirmed 38 0399070 Problem Tinnitus of both ears H93.13 Active confirmed 1927756469689 Problem History of left below knee amputation Z89.512 Ac tive confirmed 681802119587018 ALLERGIES Allergen (clinical drug ingredient) Drug/Non Drug Allergy do cumented on EMR Reaction Allergy Type Onset Date Status Sulfa (for allergy use only) Unknown Drug Allergy Active Vicodin itching Drug Allergy Active aspirin / citric acid / sodium bicarbonate Arthur([facility] Code:[address]-78) Hives Drug Allergy Active Adhesive Tape rash Drug Allergy Active ENCOUNTERS from 1950 to 2020-09-20 Encounter Location Date Provider Diagnosis [facility] [place] Resident [address] [phone] [place] [address] Aug, Juan Miguel Quarles IMMUNIZATIONS Vaccine Route Administration [...] Education Language: Question Answer Notes Languages spoken: Wolof Mosque: Question Answer Notes Mosque 13 Nondenominational No moravian beliefs that would impact healthcare Sexual Hx: [...] Notes Start Da te End Date Status BD Insulin Syringe Ultrafine 31G X 5/16 Use for both l antus and humalog injections SQ/ Dx: E11.9 six times a day for 30 Days Active FreeStyle Janette Sensor System - as directed topically four times daily for 30 days Active Ferrous Sulfate 325 (65 Fe) MG 1 tablet Orally twice daily for 90 day s Active Sofia-Nicolas 1 tablet Orally Once a day for 90 day(s) Active HumaLOG 100 UNIT/ML as directed per sliding scal e Subcutaneous with meals per sliding scale for 30 days Not-Ta zack Atorvastatin Calcium 40 mg 1 tablet Orally before bedtime for 90 days Active Wheelchair - as directed topically Daily for 999 days 2020 Active Nystatin 695329 UNIT/GM 1 application Externally Twice a day for 28 day(s) Dec, Not-Taking Blood Glucose Monitor System w/Device Daily intraderma lly DX CODE:E11.9 for 99 months Mar, Active Torsemide 20 MG 2 tablet Orally BID for 90 days Apr, Active Fluconazole 150 MG 1 tablet Orally once for 1 day Aug, Active Syringe (Disposable) 140 ML dx:e11.9 SQ four times daily for 30 day(s ) Active Lantus SoloStar 100 UNIT/ML 40 units am 40 units pm, MDD 90 Subc utaneous bid June, Active Paxil 40 MG 1 tablet in the morning Orally Once a day for 90 days Jan, Active Acetaminophen 325 MG 2 tablets Orally every 6 hrs prn pain Active FreeStyle Janette 14 Day [place] - as directed transdermally contin uously Dec, Active Aspirin 81 81 MG 1 tablet Orally Once a day for 30 day(s) Active OneTouch Ultra II Test Strips 1 ICD:E11.9 FSBS 5 times per day f or 90 day(s) Mar, Active HumaLOG 100 UNIT/ML USE DIRECTED PER SLIDING SCALE WITH MEALS, max daily dose 42 units. subcutaneously AC and HS for 30 days Not-Taking Needle (Reusable) 30G X 1/2 DX : 250.4 subcutaneously four times daily for 30 Active NovoLOG FlexPen 100 UNIT/ML Use as per sliding scale w ith meals Subcutaneous AC and HS, MDD=42 units for 30 days Mar, Active Blood Glucose Test blood glucose 1 strip E11.9 Five times a day for 90 day(s) Active Potassium chloride 20 meq 1 tab orally BID for 90 days Not-Taking Coreg 12.5MG 1 tab orally twice daily for 90 days Active Accu-Chek Soft Touch Lancets - as directed E11.9 five times per day for 30 day(s) Apr, Active Gabapentin 300 MG 2 cap Orally three times daily for 90 days Active Rolling Walker 1 as directed as directed (Z89.512) Daily for 90 day(s) June, Active Calcitriol 0.25 MCG 2 caps Orally once daily M-F for 90 days Active Spironolactone 25 mg 1 tablet Orally bid for 90 days Active Gentamicin Sulfate 0.1 % as directed topically twice daily to ul cer on toe Apr, Active Tylenol PM Extra Strength 500-25 MG 1 tablet at bedtim e as needed Orally Once a day for 30 day(s) Apr, Active Allopurinol 100 MG TAKE 2 TABLET BY MOUTH ONCE DAILY Oral Once a day for 90 days Active PROCEDURES No Information RESULTS No Results REASON FOR VISIT medicine MEDICAL (GENERAL) HISTORY Type Description Date Medical History CKD V/ESRD, 2/2 diabetic nep hropathy (Dr. Dogn/Maureen Velázquez NP) Medical History CAD ([place])--NST 04/05: normal perfusion , EF 70% Medical History HFpEF - [facility] Medical History Type 2 diabetes with nephrop athy, retinopathy and neuropathy, goal HbA1c 7.5 Medical History DM neuropathy with chronic foot ulcerati ons ([place]ijazzmine, Anne) Medical History Hypertension, goal BP 130/80 Medical History Charcot foot ([place]) Medical History Hyperlipidemia, [id number] risk was 3. 7 in 2018 Medical History Inflammatory anemia/Fe Def Anemia Medical History Depression Medical History Fibromyalgia Medical History DJD/OA (back) Medical History Chemical nuclear cardiac str ess test @ [facility] 04/10/10 - no reversible defects/ischemia Surgical History tonsillectomy 1974 Surgical History D & C 1973, 1976 x 2 Surgical History 1972, 1977 Surgical History "spine cyst" removed Surgical History hysterectomy (for bleeding) 1993 Surgical History R carpal tunnel ([place]) 1999 Surgical History cholecystectomy 2001 Surgical History cardiac cath ([place]) - insignificant CAD 12/2003 Surgical History cardiac cath ([place]) - insignificant CAD 05/2005 Surgical History R 5th toe amputation 09/2010 Surgical History L 5th toe amputation 11/2010 Surgical History cardiac cath ([place]) - insignificant CAD 12/2010 Surgical History R 3rd to amputation 08/2011 Surgical History L 3rd toe amp 01/04 Surgical History appendectomy 04/07 Surgical History R 2nd toe Amputation 04/14/12 Surgical History Right AVF placed Dr. Powell 05/2015 Surgical History OM (MSSA) requiring amp rays left 05/28 Surgical History left radiocephalic AV fistul a-Dr Andre Cal[place]- 09/05: non functioning 05/2015 Surgical History [place]- [place]-Diverticulosis 07/07 Surgical History left thumb surgery- [place] 06/01/17 Surgical History Excisional debridement throu gh [...] Medication Name Sig Start Date Stop Date Fluconazole 150 MG 1 tablet Orally once for 1 day Aug, Next Appt Details Provider Name:Jeremy Cornell, 2020-10- 2 03:15:00 PM, [address] [place] [address], , [place], [address], Insurance Providers Payer Name Payer Address Payer Phone Insured Name Patient Relati onship to Insured Coverage Start Date Coverage End Date MEDICARE Part A and B [address] [facility] [id number] CARMELITA NARAYAN self
--- OUTSIDE RECORDS SUMMARY | 2020-12-06 16:07 | CCD ---
Author Author [facility] Organization [facility] Address Unknown Phone Unavailable Care Team Providers Care Sandblast Or Shotblast Equipment Tender Name Role Phone Jeremy Cornell Unavailable PROBLEMS Type Condition ICD9-CM Code [id number] Code Onset Dates Condition S tatus W/U Status Risk SNOMED Code Notes Problem Obesity E66.9 Active confirmed 415046678 Problem Amplified musculoskeletal pain, diffuse M79.1 Active confirmed 086863059 Problem Essential hypertension I10 Active confirmed 75873115 Problem Hearing loss H91.90 Active confirmed 6128048 1 Problem Mixed hyperlipidemia E78.2 Active confirmed 267586074 Problem Methicillin susceptible Staphylococcus aureus infection A49.01 Active confirmed 673908697 Problem Cellulitis of unspecified part of limb L03.119 A ctive confirmed 220427774 Problem Non-healing wound of amputation stump T87.89 Ac tive confirmed 104014263 Problem Lower limb amputation, other toe(s) Z89.429 Acti ve confirmed 202783901 Problem Status post below knee amputation of left lower extremity Z89.512 Active confirmed 530293592863540 Problem Chronic disease anemia D63.8 Active confirmed 082573591 Problem Depressive disorder, not elsewhere classified F32. 9 Active confirmed 37047830 Problem Type 2 diabetes mellitus with hyperglycemia E11.65 Active confirmed 80312024 Problem Diabetic polyneuropathy associated with type 2 d iabetes mellitus E11.42 Active confirmed 56543389 Problem CAD (coronary artery disease) I25.10 Active confirm ed 96990841 Problem Charcot foot due to diabetes mellitus E11.610 Ac tive confirmed 28927599 Problem Adjustment disorder with anxious mood F43.22 Ac tive confirmed 11060325 Problem Stage 4 chronic kidney disease N18.4 Active confir med 646145266 Problem Carpal tunnel syndrome, unspecified laterality G56 .00 Active confirmed 15721560 Problem Other specified diabetes mellitus with foot ulcer E13.621 Active confirmed 8882061 Problem 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 Z79.4 Active conf irmed 936378409 Problem Traumatic open wound of left lower leg, subsequent enc ounter S81.802D Active confirmed 343368445 Problem Hypertensive chronic kidney disease with stage 1 through stage 4 chronic kidney disease, or unspecified chronic kidney disease I12.9 Active confirmed 82507634 Problem Type 2 diabetes mellitus with other specified complication E11.69 Active confirmed 51465624131126 Problem Chronic kidney disease, stage 5 N18.5 Active confi rmed 966094787 Problem CKD (chronic kidney disease) stage 4, GFR 15-29 ml/min N18.4 Active confirmed 515540949 Problem Type 2 diabetes mellitus with diabetic chronic kidney disease E11.22 Active confirmed 386713410001 Problem Multilevel degenerative disc disease M53.9 Act marquez confirmed 62881546 Problem Diabetes mellitus E11.9 Active confirmed 73 735871 Problem senior care (current) use of insulin Z79.4 Activ e confirmed 178301202 Problem Memory impairment R41.3 Active confirmed 38 4078175 Problem Tinnitus of both ears H93.13 Active confirmed 4215453395779 Problem History of left below knee amputation Z89.512 Ac tive confirmed 993769154225451 ALLERGIES Allergen (clinical drug ingredient) Drug/Non Drug Allergy do cumented on EMR Reaction Allergy Type Onset Date Status Sulfa (for allergy use only) Unknown Drug Allergy Active Vicodin itching Drug Allergy Active aspirin / citric acid / sodium bicarbonate Arthur([facility] Code:[address]-01) Hives Drug Allergy Active Adhesive Tape rash Drug Allergy Active ENCOUNTERS from 1950 to 2020-10-24 Encounter Location Date Provider Diagnosis [facility] [place] [phone] [place] [address] 30 Sep, 2020 Jeremy Cornell IMMUNIZATIONS Vaccine Route Administration Date Status TDAP IM Intramuscular Jan 16, 2015 Administered Influenza 18 yrs & older Flublok Unknown Nov 26, 2018 Administered Pneumococcal Adult 0.5mL Pneumovax 23 Unknown Nov 27 05 Administered Influenza 6mo & up Fluzone Unknown Nov 17, 2016 Admin istered Influenza 6mo & up Fluzone IM Intramuscular Dec 12, 2015 Admi nistered Influenza 6mo & up Fluzone IM Intramuscular Dec 18, 2014 Admi nistered Rocephin 1gm Ceftriaxone IM Intramuscular Dec 23, 2019 Admini stered Influenza 6mo & up Fluzone IM Intramuscular [...] Education Language: Question Answer Notes Languages spoken: Qatari Taoism: Question Answer Notes Taoism 13 Church No alevism beliefs that would impact healthcare Sexual Hx: [...] Notes Start Da te End Date Status FreeStyle Janette 14 Day [place] - as directed transdermally contin uously Dec, Active HumaLOG 100 UNIT/ML USE DIRECTED PER SLIDING SCALE WITH MEALS, max daily dose 42 units. subcutaneously AC and HS for 30 days Not-Taking Ferrous Sulfate 325 (65 Fe) MG 1 tablet Orally twice daily for 90 day s Active Rolling Walker 1 as directed as directed (Z89.512) Daily for 90 day(s) June, Active Blood Glucose Test blood glucose 1 strip E11.9 Five times a day for 90 day(s) Active Atorvastatin Calcium 40 mg 1 tablet Orally before bedtime for 90 days Active NovoLOG FlexPen 100 UNIT/ML Use as per sliding scale w ith meals Subcutaneous AC and HS, MDD=42 units for 30 days Mar, Active OneTouch Ultra II Test Strips 1 ICD:E11.9 FSBS 5 times per day f or 90 day(s) Mar, Active Acetaminophen 325 MG 2 tablets Orally every 6 hrs prn pain Active Potassium chloride 20 meq 1 tab orally BID for 90 days Not-Taking FreeStyle Janette Sensor System - as directed topically four times daily for 30 days Active Sofia-Nicolas 1 tablet Orally Once a day for 90 day(s) Active HumaLOG 100 UNIT/ML as directed per sliding scal e Subcutaneous with meals per sliding scale for 30 days administer per sliding scale Not-Taking Nystatin 035485 UNIT/GM 1 application Externally Twice a day for 28 day(s) Dec, Not-Taking Blood Glucose Monitor System w/Device Daily intraderma lly DX CODE:E11.9 for 99 months Mar, Active Spironolactone 25 mg 1 tablet Orally bid for 90 days Active Torsemide 20 MG 2 tablet Orally BID for 90 days Apr, Active Accu-Chek Soft Touch Lancets - as directed E11.9 five times per day for 30 day(s) Apr, Active Wheelchair - as directed topically Daily for 999 days 14 2020 Active Gentamicin Sulfate 0.1 % as directed topically twice daily to ul cer on toe Apr, Active Aspirin 81 81 MG 1 tablet Orally Once a day for 30 day(s) Active BD Insulin Syringe Ultrafine 31G X 5/16 Use for both l antus and humalog injections SQ/ Dx: E11.9 six times a day for 30 Days Active Syringe (Disposable) 140 ML dx:e11.9 SQ [...] daily for 30 Active Calcitriol 0.25 MCG 2 caps Orally once daily M-F for 90 days Active Paxil 40 MG 1 tablet in the morning Orally Once a day for 90 days Jan, Active Fluconazole 150 MG 1 tablet Orally once for 1 day Aug, Active Gabapentin 300 MG 2 cap Orally three times daily for 90 days Active Coreg 12.5MG 1 tab orally twice daily for 90 days Active Allopurinol 100 MG TAKE 2 TABLET BY MOUTH ONCE DAILY Oral Once a day for 90 days Active PROCEDURES No Information RESULTS No Results REASON FOR VISIT in pain MEDICAL (GENERAL) HISTORY Type Description Date Medical History CKD V/ESRD, 2/2 diabetic nep hropathy (Dr. Dong/Maureen Velázquez NP) Medical History CAD ([place])--NST 04/05: normal perfusion , EF 70% Medical History HFpEF - [facility] Medical History Type 2 diabetes with nephrop athy, retinopathy and neuropathy, goal HbA1c 7.5 Medical History DM neuropathy with chronic foot ulcerati ons (Pellitijazzmine, Anne) Medical History Hypertension, goal BP 130/80 Medical History Charcot foot ([place]) Medical History Hyperlipidemia, [id number] risk was 3. 7 in 2018 Medical History Inflammatory anemia/Fe Def Anemia Medical History Depression Medical History Fibromyalgia Medical History DJD/OA (back) Medical History Chemical nuclear cardiac str ess test @ [facility] 04/10/10 - no reversible defects/ischemia Surgical History tonsillectomy 1974 Surgical History D & C 1973, 1976 x 2 Surgical History 1972, 1977 Surgical History "spine cyst" removed Surgical History hysterectomy (for bleeding) 1993 Surgical History R carpal tunnel ([place]) 1999 Surgical History cholecystectomy 2001 Surgical History cardiac cath ([place]) - insignificant CAD 12/2003 Surgical History cardiac cath ([place]) - insignificant CAD 05/2005 Surgical History R 5th toe amputation 09/2010 Surgical History L 5th toe amputation 11/2010 Surgical History cardiac cath ([place]) - insignificant CAD 12/2010 Surgical History R 3rd to amputation 08/2011 Surgical History L 3rd toe amp 01/04 Surgical History appendectomy 04/07 Surgical History R 2nd toe Amputation 04/14/12 Surgical History Right AVF placed Dr. Powell 05/2015 Surgical History OM (MSSA) requiring amp rays left 05/28 Surgical History left radiocephalic AV fistul a-Dr Powell Syr- 09/05: non functioning 05/2015 Surgical History [place]- [place]-Diverticulosis 07/07 Surgical History left thumb surgery- [place] 06/01/17 Surgical History Excisional debridement throu gh muscle, skin and subcutaneous tissue left foot with application of wound VAC. ([place]) 05/31/18 Surgical History Incision of complex abscess [...] tablet Orally once for 1 day Aug, Coreg 12.5MG 1 tab orally twice daily for 90 days Paxil 40 MG 1 tablet in the morning Orally Once a day for 90 days Jan, Gabapentin 300 MG 2 cap Orally three times daily for 90 days Spironolactone 25 mg 1 tablet Orally bid for 90 days Torsemide 20 MG 2 tablet Orally BID for 90 days Apr, OneTouch Ultra II Test Strips 1 ICD:E11.9 FSBS 5 times per d ay for 90 day(s) Mar, Blood Glucose Monitor System w/Device Daily intraderma lly DX CODE:E11.9 for 99 months Mar, Next Appt Details Provider Name:Jeremy Cornell, 2020-09-0 2 03:15:00 PM, [address], , [place], [address], Insurance Providers Payer Name Payer Address Payer Phone Insured Name Patient Relati onship to Insured Coverage Start Date Coverage End Date MEDICARE Part A and B [facility] [address] [facility] [facility] [phone] CARMELITA NARAYAN self
--- OUTSIDE RECORDS SUMMARY | 2020-12-06 16:07 | CCD ---
Author Author [facility] Organization [facility] Address Unknown Phone Unavailable Care Team Providers Care Recreation Counselor Name Role Phone Juan Miguel Quarles Unavailable PROBLEMS Type Condition ICD9-CM Code ZVW50-RU Code Onset Dates Condition S tatus W/U Status Risk SNOMED Code Notes Problem Obesity E66.9 Active confirmed 014282233 Problem Amplified musculoskeletal pain, diffuse M79.1 Active confirmed 798199791 Problem Essential hypertension I10 Active confirmed 73717090 Problem Hearing loss H91.90 Active confirmed 5233992 1 Problem Mixed hyperlipidemia E78.2 Active confirmed 032299913 Problem Methicillin susceptible Staphylococcus aureus infection A49.01 Active confirmed 146782370 Problem Cellulitis of unspecified part of limb L03.119 A ctive confirmed 415545821 Problem Non-healing wound of amputation stump T87.89 Ac tive confirmed 125712153 Problem Lower limb amputation, other toe(s) Z89.429 Acti ve confirmed 969929369 Problem Status post below knee amputation of left lower extremity Z89.512 Active confirmed 579499157535669 Problem Chronic disease anemia D63.8 Active confirmed 605075690 Problem Depressive disorder, not elsewhere classified F32. 9 Active confirmed 63101736 Problem Type 2 diabetes mellitus with hyperglycemia E11.65 Active confirmed 36011931 Problem Diabetic polyneuropathy associated with type 2 d iabetes mellitus E11.42 Active confirmed 05819430 Problem CAD (coronary artery disease) I25.10 Active confirm ed 25151005 Problem Charcot foot due to diabetes mellitus E11.610 Ac tive confirmed 38230211 Problem Adjustment disorder with anxious mood F43.22 Ac tive confirmed 37274460 Problem Stage 4 chronic kidney disease N18.4 Active confir med 423248290 Problem Carpal tunnel syndrome, unspecified laterality G56 .00 Active confirmed 48805417 Problem Other specified diabetes mellitus with foot ulcer E13.621 Active confirmed 6114175 Problem 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 Z79.4 Active conf irmed 529852746 Problem Traumatic open wound of left lower leg, subsequent enc ounter S81.802D Active confirmed 722096775 Problem Hypertensive chronic kidney disease with stage 1 through stage 4 chronic kidney disease, or unspecified chronic kidney disease I12.9 Active confirmed 45236315 Problem Type 2 diabetes mellitus with other specified complication E11.69 Active confirmed 50335142849503 Problem Chronic kidney disease, stage 5 N18.5 Active confi rmed 857775080 Problem CKD (chronic kidney disease) stage 4, GFR 15-29 ml/min N18.4 Active confirmed 996954205 Problem Type 2 diabetes mellitus with diabetic chronic kidney disease E11.22 Active confirmed 375935213307 Problem Multilevel degenerative disc disease M53.9 Act marquez confirmed 13572310 Problem Diabetes mellitus E11.9 Active confirmed 73 459859 Problem [facility]CI (current) use of insulin Z79.4 Activ e confirmed 256709241 Problem Memory impairment R41.3 Active confirmed 38 8870777 Problem Tinnitus of both ears H93.13 Active confirmed 7859469513230 Problem History of left below knee amputation Z89.512 Ac tive confirmed 647066944920092 ALLERGIES Allergen (clinical drug ingredient) Drug/Non Drug Allergy do cumented on EMR Reaction Allergy Type Onset Date Status Sulfa (for allergy use only) Unknown Drug Allergy Active Vicodin itching Drug Allergy Active aspirin / citric acid / sodium bicarbonate Arthur([facility] Code:[address]-57) Hives Drug Allergy Active Adhesive Tape rash Drug Allergy Active ENCOUNTERS from 1950 to 2020-10-17 Encounter Location Date Provider Diagnosis [facility] [place] Resident [address] [phone] [place] [address] Sep, Juan Miguel Quarles IMMUNIZATIONS Vaccine Route Administration [...] Education Language: Question Answer Notes Languages spoken: Vietnamese Taoism: Question Answer Notes Taoism 13 Restorationism No synagogue beliefs that would impact healthcare Sexual Hx: [...] End Date Status FreeStyle Janette 14 Day [place] - as directed transdermally contin uously Dec, [...] days administer per sliding scale Not-Taking Nystatin 254463 UNIT/GM 1 application Externally Twice a day [...] Information RESULTS No Results REASON FOR VISIT New Refill Request MEDICAL (GENERAL) HISTORY Type Description Date Medical History CKD V/ESRD, 2/2 diabetic nep hropathy (Dr. Dong/Maureen Velázquez NP) Medical History CAD ([place])--NST 04/05: normal perfusion , EF 70% Medical History HFpEF - [facility] Medical History Type 2 diabetes with nephrop athy, retinopathy and neuropathy, goal HbA1c 7.5 Medical History DM neuropathy with chronic foot ulcerati ons (Pellitiere, Anne) Medical History Hypertension, goal BP 130/80 Medical History Charcot foot ([place]) Medical History Hyperlipidemia, AYYDC17-[id number] risk was 3. 7 in 2018 Medical History Inflammatory anemia/Fe Def Anemia Medical History Depression Medical History Fibromyalgia Medical History DJD/OA (back) Medical History Chemical nuclear cardiac str ess test @ [facility] 04/10/10 - no reversible defects/ischemia Surgical History tonsillectomy 1974 Surgical History D & C 1973, 1976 x 2 Surgical History 1972, 1977 Surgical History "spine cyst" removed Surgical History hysterectomy (for bleeding) 1993 Surgical History R carpal tunnel ([place]) 1999 Surgical History cholecystectomy 2001 Surgical History cardiac cath ([place]) - insignificant CAD 12/2003 Surgical History cardiac cath ([place]) - insignificant CAD 05/2005 Surgical History R 5th toe amputation 09/2010 Surgical History L 5th toe amputation 11/2010 Surgical History cardiac cath ([place]) - insignificant CAD 12/2010 Surgical History R 3rd to amputation 08/2011 Surgical History L 3rd toe amp 01/04 Surgical History appendectomy 04/07 Surgical History R 2nd toe Amputation 04/14/12 Surgical History Right AVF placed Dr. Powell 05/2015 Surgical History OM (MSSA) requiring amp rays left 05/28 Surgical History left radiocephalic AV fistul a-Dr Powell Syr- 09/05: non functioning 05/2015 Surgical History [place]- [place]-Diverticulosis 07/07 Surgical History left thumb surgery- [place] 06/01/17 Surgical History Excisional debridement throu gh [...] Name:Jeremy Cornell, 2020-09-0 2 03:15:00 PM, [address] [facility] [address], , [place], [address], Insurance Providers Payer Name Payer Address Payer Phone Insured Name Patient Relati onship to Insured Coverage Start Date Coverage End Date MEDICARE Part A and B [address] [facility] [id number] CARMELITA NARAYAN self
--- OUTSIDE RECORDS SUMMARY | 2020-12-06 16:07 | CCD | Continuity of Care Document ---
Author Author Norma QUIÑONES MD Organization Unknown Address [address], [address] [place] [address] Phone [phone] Care Team Providers Care Business Risk Consultant Name Role Phone Zulema Mckeon M.D. AUTM [phone] Jeremy Cornell M.D. AUTM [phone] AUTM Unavailable Jennifer Yanez M.D. AUTM [phone] AUTM Unavailable Problems Active Problems Provider Date Chronic kidney disease stage 3 Lorene Culver MD O nset: 05/20/2011 Edema Lorene Culver MD Onset: 05/19 Proteinuria Lorene Culver MD Onset: 05/19 Multiple complications due to type 2 diabetes mellitus Lorene Culver MD Onset: 05/20/2011 Essential hypertension Lorene Culver MD Onset: Heart failure Lorene Culver MD Onset: 05/19 Gout Loerne Culver MD Onset: 05/19 Hyperlipidemia Lorene Culver [...] Type 1 diabetes mellitus Onset: 05/17/19 15 Arteriovenous fistula occlusion Paulette Quiñones MD O nset: 11/08/2020 Herpes zoster without complication Sonal Danielle Onset: 11/08/2020 Atherosclerosis of arteries of the extremities Paulette Quiñones MD Onset: 11/08/2020 Social History Type Date Description Comments Sex [...] Calcitriol 0.25mcg Capsules 1 a day Thu And -Thu Unknown Paroxetine HCL 40mg Tablets [...] lb BMI (Body Mass Index) 38.8 kg/m2 [place] Body Weight 150 lb Weight 122.642 kg BSA (Body Surface Area) 2.37 m2 06/04/2020 3:42pm BP Systolic 145 mmHg BP Diastolic 67 mmHg Height 70 inches 5'10" Weight 260.00 lb BMI (Body Mass Index) 37.3 kg/m2 [place] Body Weight 150 lb Weight 117.936 kg BSA (Body Surface Area) 2.33 m2 Results Description No Information Available Procedures Date Code Description Status 11/08/2020 20358 Office/Outpatient Established Mo d MDM 30-39 Min Completed 06/04/2020 12044 Office/Outpatient Established Lo w MDM 20-29 Min Completed 05/24/2020 87852 Office/Outpatient Established Lo w MDM 20-29 Min Completed 05/24/2020 59577 Inject Tendon/Ligament Completed Medical Devices Description No Information Available Encounters Type Date Location Provider Dx Diagnosis Office Visit 11/08/2020 1:45p [facility] Rat na Carlos Quiñones MD N18.6 End stage renal disease Z99.2 Dependence on renal dialysis B02.9 Zoster without complications T82.898A Oth complication of vascular prosth dev/grft, init I70.203 Unsp athscl hughes arteries of extremities, bilateral legs Office Visit 06/04/2020 4:00p [facility] Josselin alaniz MD I70.203 Unsp athscl hughes arteries of extremiti es, bilateral legs Z89.512 Acquired absence of left leg below knee Office Visit 05/24/2020 1:00p [facility] Orthoped[facility] Mario Hunter MD M65.332 Trigger finger, left middle finger M65.341 Trigger finger, right ring f izabel M25.541 Pain in joints of right hand Assessments Date Code Description Provider 11/08/2020 N18.6 End stage renal disease Paulette Quiñones MD 11/08/2020 Z99.2 Dependence on renal dialysis Allie Quiñones MD 11/08/2020 B02.9 Zoster without complications Rat flori Quiñones MD 11/08/2020 T82.898A Other specified comp lication of vascular prosthetic devices, implants and grafts, initial encounter Paulette Quiñones MD 11/08/2020 I70.203 Unspecified atherosc lerosis of hughes arteries of extremities, bilateral legs Paulette Quiñones MD 06/04/2020 I70.203 Unspecified atherosc lerosis of hughes arteries of extremities, bilateral legs Josselin Dubose MD 06/04/2020 Z89.512 Acquired absence of left leg bel ow knee Josselin Dubose MD 05/24/2020 M65.332 Trigger finger, left middle fing er Mario Hunter MD 05/24/2020 M65.341 Trigger finger, right ring finge r Mario Hunter MD 05/24/2020 M25.541 Pain in joints of right hand Sco arden Hunter MD Plan of Treatment Future Appointment(s):* 11/29/2020 10:45 am - Paulette Quiñones MD at [facility] 11/08/2020 - Paulette Quiñones MD* N18.6 End stage renal disease* Comments:* On hemodialysis, since 08/11/2020, through left brachiocephalic AV fistula, which is not functioning well. There is evidence of fistula/venous stenosis - with frequent infiltrations,and clots aspirated from the fistula.She seemed to have focal severe stenosis, at the arterial anastomotic aspect of the fistula, on reviewing her past fistulogram images, and also seems to have a chronic flap or thrombus, at the site, on SonoSite evaluation in the clinic today.Findings were discussed with the patient and her .Options of treatment were discussed - including fistulogram and repeat balloon angioplasty of the arterial anastomosis. If the stenosis does not respond to percutaneous approach, she may need open revision of the AV fistula (excision of the fistula, and reanastomosing it more proximally) along with insertion of a Permacatheter. However she has active shingles infection now, and was prescribed prednisone by her PCP today.Hence we will plan the procedure, after she is treated with steroids, for the active zoster i nfection.My impression and plan were discussed with the patient and her . They understand and agree. * Z99.2 Dependence on renal dialysis* Comments:* See #1 * B02.9 Zoster without complications* Comments:* Advised prednisone by PCP * T82.898A Other specified complication of vascular prosthetic devices, implants and grafts, initial encounter* Comments:* Recurrent stenosis of the AV fistula, at the arterial site * I70.203 Unspecified atherosclerosis of hughes arteries of extremities, bilateral legs* Comments:* Lower extremity arterial ultrasound on 05/10/2020: Patent right lower extremity arteries, with moderate atherosclerotic plaque. Triphasic waveforms noted in the superficial femoral artery and monophasic waveforms distally.Suggest :Surveillance for PAD with ultrasound-yearly Functional Status Description No Information Available Mental Status Description No Information Available Referrals Refer to Reason for Referral Status Appt Date Tony Enriquez MD EVAL AV FISTULA Scheduled 10/22/2020 [address], [address] [place] [address] [phone]
--- OUTSIDE RECORDS SUMMARY | 2020-12-06 16:07 | CCD ---
Author Author [facility] Organization [facility] Address Unknown Phone Unavailable Care Team Providers Care Security Installation Technician Name Role Phone Jeremy Cornell Unavailable PROBLEMS Type Condition ICD9-CM Code PLW70-WY Code Onset Dates Condition S tatus W/U Status Risk SNOMED Code Notes Problem Depressive disorder, not elsewhere classified F32. 9 Active confirmed 61012253 Problem Essential hypertension I10 Active confirmed 28363940 Problem Obesity E66.9 Active confirmed 488342301 Problem Mixed hyperlipidemia E78.2 Active confirmed 097009718 Problem Amplified musculoskeletal pain, diffuse M79.1 Active confirmed 343276095 Problem Cellulitis of unspecified part of limb L03.119 A ctive confirmed 178598513 Problem Hearing loss H91.90 Active confirmed 3172288 1 Problem Status post below knee amputation of left lower extremity Z89.512 Active confirmed 089632328748621 Problem Chronic disease anemia D63.8 Active confirmed 581769353 Problem Other specified diabetes mellitus with foot ulcer E13.621 Active confirmed 0827641 Problem Type 2 diabetes mellitus with hyperglycemia E11.65 Active confirmed 55689867 Problem Lower limb amputation, other toe(s) Z89.429 Acti ve confirmed 809087240 Problem CAD (coronary artery disease) I25.10 Active confirm ed 38046512 Problem Diabetes mellitus E11.9 Active confirmed 73 322201 Problem Adjustment disorder with anxious mood F43.22 Ac tive confirmed 68554069 Problem Diabetic polyneuropathy associated with type 2 d iabetes mellitus E11.42 Active confirmed 62029408 Problem Carpal tunnel syndrome, unspecified laterality G56 .00 Active confirmed 16671523 Problem Charcot foot due to diabetes mellitus E11.610 Ac tive confirmed 56140692 Problem USP current use of insulin Z79.4 Active conf irmed 405922489 Problem Stage 4 chronic kidney disease N18.4 Active confir med 847738463 Problem Non-healing wound of amputation stump T87.89 Ac tive confirmed 852599399 Problem Traumatic open wound of left lower leg, subsequent enc ounter S81.802D Active confirmed 643785749 Problem Hypertensive chronic kidney disease with stage 1 through stage 4 chronic kidney disease, or unspecified chronic kidney disease I12.9 Active confirmed 49037724 Problem Chronic kidney disease, stage 5 N18.5 Active confi rmed 248363260 Problem Multilevel degenerative disc disease M53.9 Act marquez confirmed 39831589 Problem Type 2 diabetes mellitus with diabetic chronic kidney disease E11.22 Active confirmed 307346558098 Problem Methicillin susceptible Staphylococcus aureus infection A49.01 Active confirmed 880336633 Problem CKD (chronic kidney disease) stage 4, GFR 15-29 ml/min N18.4 Active confirmed 124500515 Problem Type 2 diabetes mellitus with other specified complication E11.69 Active confirmed 34568610983033 Problem USP (current) use of insulin Z79.4 Activ e confirmed 543341677 Problem Memory impairment R41.3 Active confirmed 38 5354763 Problem Tinnitus of both ears H93.13 Active confirmed 4331062778408 ALLERGIES Allergen (clinical drug ingredient) Drug/Non Drug Allergy do cumented on EMR Reaction Allergy Type Onset Date Status Sulfa (for allergy use only) Unknown Drug Allergy Active Vicodin itching Drug Allergy Active aspirin / citric acid / sodium bicarbonate Arthur([facility] Code:[address]-90) Hives Drug Allergy Active Adhesive Tape rash Drug Allergy Active ENCOUNTERS from 1952 to 2020-11-08 Encounter Location Date Provider Diagnosis [facility] [address] [phone] [place] [address] 14 Oct, 2020 Jeremy Cornell IMMUNIZATIONS Vaccine Route Administration [...] Education Language: Question Answer Notes Languages spoken: Ugandan Yazdanism: Question Answer Notes Yazdanism 13 [employer] No islam beliefs that would impact healthcare Sexual Hx: [...] Orally every 6 hrs prn pain Active Calcitriol 0.25 MCG 2 caps Orally once daily - - Active Coreg 12.5MG 1 tab orally twice daily for 90 days Active predniSONE 10 MG (48) as directed Orally Take 60 m gx4 days, 40mgx4 days, [id number], for 12 days Oct, Active Lancets - as directed Delica 2-4 times daily dx: E11.65 fo r 30 days Oct, Active Sofia-Nicolas 1 tablet Orally Once a day for 90 day(s) Active Tylenol PM Extra Strength 500-25 MG 1 tablet at bedtim e as needed Orally Once a day for 30 day(s) Apr, Active Test Strips - as directed Verio [...] DX CODE:E11.9 for 99 months Mar, Active FoneSense Janette Sensor System - as directed topically [...] units for 30 days Mar, Active Nystatin 691212 UNIT/GM 1 application Externally Twice a day [...] 30 days Not-Taking FreeStyle Janette 14 Day [place] - as directed transdermally contin uously 17 Dec, 2019 Active PROCEDURES No Information RESULTS No Results REASON FOR VISIT replacement socket for leg MEDICAL (GENERAL) HISTORY Type Description Date Medical [...] History Charcot foot ([place]) Medical History Hyperlipidemia, [id number] risk was 3. 7 in 2018 Medical History Inflammatory anemia/Fe Def Anemia Medical History Depression Medical History Fibromyalgia Medical History DJD/OA (back) Medical History Chemical nuclear cardiac str ess test @ [facility] 04/10/10 - no reversible defects/ischemia Surgical History tonsillectomy 1974 Surgical History D & C 1973, 1976 x 2 Surgical History 1972, 1977 Surgical History "spine cyst" removed Surgical History hysterectomy (for bleeding) 1993 Surgical History R carpal tunnel ([place]) 1999 Surgical History cholecystectomy 2001 Surgical History cardiac cath ([place]) - insignificant CAD 12/2003 Surgical History cardiac cath ([place]) - insignificant CAD 05/2005 Surgical History R 5th toe amputation 09/2010 Surgical History L 5th toe amputation 11/2010 Surgical History cardiac cath ([place]) - insignificant CAD 12/2010 Surgical History R 3rd to amputation 08/2011 Surgical History L 3rd toe amp 01/04 Surgical History appendectomy 04/07 Surgical History R 2nd toe Amputation 04/14/12 Surgical History Right AVF placed Dr. Powell 05/2015 Surgical History OM (MSSA) requiring amp rays left 05/28 Surgical History left radiocephalic AV fistul a-Dr Andre Caldwell- 09/05: non functioning 05/2015 Surgical History [place]- [place]-Diverticulosis 07/07 Surgical History left thumb surgery- [place] 06/01/17 Surgical History Excisional debridement throu gh [...] dx: E 11.65 for 30 days Oct, predniSONE 10 MG (48) as directed Orally Take 60 m gx4 days, 40mgx4 days, [id number], for 12 days Oct, Lidoderm 5 % 1 patch remove after 12 hours Externally Once a day for 21 day(s) Oct, Next Appt Details Provider Name:Jeremy Cornell, 2020-10-0 7 02:00:00 PM, [address] [facility] [facility], , [place], [address], Insurance Providers Payer Name Payer Address Payer Phone Insured Name Patient Relati onship to Insured Coverage Start Date Coverage End Date MEDICARE Part A and B [address] [place] [address] CARMELITA NARAYAN self
--- OUTSIDE RECORDS SUMMARY | 2020-12-06 16:07 | CCD | Continuity of Care Document ---
Author Author Norma QUIÑONES MD Organization Unknown Address [address], [address] [place] [address] Phone [phone] Care Team Providers Care Tube Sizer Operator Name Role Phone Zulema Mckeon M.D. AUTM [phone] Jeremy Cornell M.D. AUTM [phone] AUTM Unavailable Jennifer Yanez M.D. AUTM [phone] AUTM Unavailable Problems Active Problems Provider [...] MD Onset: 06/22 Vitamin D deficiency Lorene uClver MD Onset: 05/26 Hyperparathyroidism due to renal [...] lb BMI (Body Mass Index) 39.9 kg/m2 [place] Body Weight 150 lb Weight 126.101 kg BSA (Body Surface Area) 2.40 m2 11/08/2020 1:39pm BP Systolic 150 mmHg BP Diastolic 52 mmHg Body Temperature 98.4 F Height 70 inches 5'10" Weight 270.38 lb BMI (Body Mass Index) 38.8 kg/m2 [place] Body Weight 150 lb Weight 122.642 kg BSA (Body Surface Area) 2.37 m2 Results Description No Information Available Procedures Date Code Description Status 11/29/2020 54099 Office/Outpatient Established Mo d MDM 30-39 Min Completed 11/08/2020 99125 Office/Outpatient Established Mo d MDM 30-39 Min Completed 06/04/2020 31797 Office/Outpatient Established Lo w MDM 20-29 Min Completed Medical Devices Description No Information Available Encounters Type Date Location Provider Dx Diagnosis Office Visit 11/29/2020 10:45a [facility] Rat na Carlos Quiñones MD N18.6 End stage renal disease Z99.2 Dependence on renal dialysis T82.898A Oth complication of vascular prosth dev/grft, init T82.858A Stenosis of other vascular p rosth dev/grft, init Office Visit 11/08/2020 1:45p [facility] Allie Quiñones MD N18.6 End stage renal disease Z99.2 Dependence on renal dialysis B02.9 Zoster without complications T82.898A Oth complication of vascular prosth dev/grft, init I70.203 Unsp athscl [place] arteries of extremities, bilateral legs Office Visit 06/04/2020 4:00p [facility] Josselin alaniz MD I70.203 Unsp athscl [place] arteries of extremiti es, bilateral legs Z89.512 [...] MD 11/08/2020 I70.203 Unspecified atherosc lerosis of [place] arteries of extremities, bilateral legs Paulette Quiñones MD 06/04/2020 I70.203 Unspecified atherosc lerosis of [place] arteries of extremities, bilateral legs Josselin Dubose MD 06/04/2020 Z89.512 Acquired absence of left leg bel ow knee Josselin Dubose MD Plan of Treatment Future Appointment(s):* 12/10/2020 4:15 pm - Tony Enriquez MD at [facility] * 12/04/2020 2:00 pm - Paulette Quiñones MD at [facility] 11/29/2020 - Paulette Quiñones MD* N18.6 [...] MD EVAL AV FISTULA Scheduled 10/22/[address] [phone]
--- OUTSIDE RECORDS SUMMARY | 2020-12-06 16:07 | CCD ---
Author Author [facility] Organization [facility] Address Unknown Phone Unavailable Care Team Providers Care Client Services Manager Name Role Phone Juan Miguel Quarles Unavailable PROBLEMS Type Condition ICD9-CM Code POT39-MT Code Onset Dates Condition S tatus W/U Status Risk SNOMED Code Notes Problem Depressive disorder, not elsewhere classified F32. 9 Active confirmed 30740668 Problem Mixed hyperlipidemia E78.2 Active confirmed 487338313 Problem Amplified musculoskeletal pain, diffuse M79.1 Active confirmed 266355333 Problem Cellulitis of unspecified part of limb L03.119 A ctive confirmed 469338248 Problem Hearing loss H91.90 Active confirmed 2287912 1 Problem Multilevel degenerative disc disease M53.9 Act marquez confirmed 45962415 Problem Methicillin susceptible Staphylococcus aureus infection A49.01 Active confirmed 019855988 Problem Traumatic open wound of left lower leg, subsequent enc ounter S81.802D Active confirmed 058317225 Problem Type 2 diabetes mellitus with hyperglycemia E11.65 Active confirmed 02569027 Problem Non-healing wound of amputation stump T87.89 Ac tive confirmed 136559756 Problem Lower limb amputation, other toe(s) Z89.429 Acti ve confirmed 875911447 Problem Essential hypertension I10 Active confirmed 06660032 Problem Obesity E66.9 Active confirmed 288426739 Problem Adjustment disorder with anxious mood F43.22 Ac tive confirmed 30223101 Problem Diabetic polyneuropathy associated with type 2 d iabetes mellitus E11.42 Active confirmed 11332300 Problem Carpal tunnel syndrome, unspecified laterality G56 .00 Active confirmed 87692166 Problem Charcot foot due to diabetes mellitus E11.610 Ac tive confirmed 99688263 Problem group home current use of insulin Z79.4 Active conf irmed 635547428 Problem Stage 4 chronic kidney disease N18.4 Active confir med 224985265 Problem Status post below knee amputation of left lower extremity Z89.512 Active confirmed 295675643037018 Problem Chronic disease anemia D63.8 Active confirmed 566953540 Problem Other specified diabetes mellitus with foot ulcer E13.621 Active confirmed 9298702 Problem Hypertensive chronic kidney disease with stage 1 through stage 4 chronic kidney disease, or unspecified chronic kidney disease I12.9 Active confirmed 55098510 Problem Type 2 diabetes mellitus with other specified complication E11.69 Active confirmed 41730207570655 Problem group home (current) use of insulin Z79.4 Activ e confirmed 769431110 Problem Secondary hypoparathyroidism E20.8 Active confirme d 573074895 Problem Diabetes mellitus E11.9 Active confirmed 73 509986 Problem Vitamin D deficiency E55.9 Active confirmed 77973804 Problem CKD (chronic kidney disease) stage 4, GFR 15-29 ml/min N18.4 Active confirmed 080630588 Problem CAD (coronary artery disease) I25.10 Active confirm ed 48990432 Problem Memory impairment R41.3 Active confirmed 38 8118093 Problem Tinnitus of both ears H93.13 Active confirmed 0167497673315 Problem Chronic kidney disease, stage 5 N18.5 Active confi rmed 989717407 Problem Type 2 diabetes mellitus with diabetic chronic kidney disease E11.22 Active confirmed 216793689224 ALLERGIES Allergen (clinical drug ingredient) Drug/Non Drug Allergy do cumented on EMR Reaction Allergy Type Onset Date Status Sulfa (for allergy use only) Unknown Drug Allergy Active Vicodin itching Drug Allergy Active aspirin / citric acid / sodium bicarbonate Arthur([facility] Code:[address]-56) Hives Drug Allergy Active Adhesive Tape rash Drug Allergy Active ENCOUNTERS from 1950 to 2020-11-20 Encounter Location Date Provider Diagnosis [address] [phone] [place] [address] Oct, Juan Miguel Quarles IMMUNIZATIONS Vaccine Route Administration Date Status Rocephin 1gm Ceftriaxone IM Intramuscular Dec 23, 2019 Admini stered Pneumococcal Adult 0.5mL Pneumovax 23 Unknown Nov 27 Administered TDAP IM Intramuscular Jan 16, 2015 [...] Education Language: Question Answer Notes Languages spoken: Paraguayan Bahai: Question Answer Notes Bahai 13 [employer]ish No latter-day beliefs that would impact healthcare Sexual Hx: [...] Orally every 6 hrs prn pain Active NovoLOG FlexPen 100 UNIT/ML Use as per sliding scale w ith meals Subcutaneous AC and HS, MDD=42 units for 30 days Mar, Active Coreg 12.5MG 1 tab orally twice daily for 90 days Active predniSONE 10 MG (48) as directed Orally Take 60 m gx4 days, 40mgx4 days, [id number], for 12 days Oct, Active Lancets - [...] DX CODE:E11.9 for 99 months Mar, Active Atorvastatin Calcium 40 mg 1 tablet Orally before bedtime for 90 days Active Nystatin 262277 UNIT/GM 1 application Externally Twice a day for 28 day(s) Dec, Not-Taking HumaLOG 100 UNIT/ML as directed per sliding scal e Subcutaneous with meals per sliding scale for 30 days administer per sliding scale Not-Taking Allopurinol 100 MG TAKE 1 TABLET BY MOUTH ONCE DAILY Oral Once a day Active Syringe (Disposable) 140 ML dx:e11.9 SQ four times daily for 30 day(s ) Active Potassium chloride 20 meq 1 tab orally BID for 90 days Not-Taking FreeStyle Janette Sensor System - as directed topically four times daily for 30 days Active oxyCODONE-Acetaminophen 5-325 MG 1 tablet as needed Orally every 6 hr s Active Spironolactone 25 mg 1 tablet Orally bid for 90 days Active BD Insulin Syringe Ultrafine 31G X 5/16 Use for both l antus and humalog injections SQ/ Dx: E11.9 six times a day for 30 Days Active Wheelchair - as directed topically Daily for 999 days 14 J an, 2021 Active Ferrous Sulfate 325 (65 Fe) MG 1 tablet Orally twice daily for 90 day s Active Fluconazole 150 MG 1 tablet Orally once for 1 day Aug, Not-Taking Blood Glucose Test blood glucose 1 strip E11.9 Five times a day for 90 day(s) Active HumaLOG 100 UNIT/ML USE DIRECTED PER SLIDING SCALE WITH MEALS, max daily dose 42 units. subcutaneously AC and HS for 30 days Not-Taking Needle (Reusable) 30G X 1/2 DX : 250.4 subcutaneously four times daily for 30 Active OneTouch Ultra II Test Strips 1 ICD:E11.9 FSBS 5 times per day f or 90 day(s) Mar, Active FreeStyle Janette 14 Day [place] - as directed transdermally contin uously Dec, Active Calcitriol 0.25 MCG TAKE 2 CAPSULES EVERY DAY ON THURSDAY THROUGH THURSDAY orally as directed for 30 days Active PROCEDURES No Information RESULTS No Results REASON FOR VISIT error MEDICAL (GENERAL) HISTORY Type Description Date Medical History CKD V/ESRD, 2/2 diabetic nep hropathy (Dr. Dong/Maureen Velázquez NP) Medical History CAD ([place])--NST 04/05: normal perfusion , EF 70% Medical History HFpEF - [facility] Medical History Type 2 diabetes with nephrop athy, retinopathy and neuropathy, goal HbA1c 7.5 Medical History DM neuropathy with chronic foot ulcerati ons (Pellitijazzmine, Anne) Medical History Hypertension, goal BP 130/80 Medical History Charcot foot ([place]) Medical History Hyperlipidemia, KVSVE14-eawr risk was 3. 7 in 2018 Medical History Inflammatory anemia/Fe Def Anemia Medical History Depression Medical History Fibromyalgia Medical History DJD/OA (back) Medical History Chemical nuclear cardiac str ess test @ [facility] 04/10/10 - no reversible defects/ischemia Surgical History tonsillectomy 1974 Surgical History D & C 1973, 1976 x 2 Surgical History 1972, 1977 Surgical History "spine cyst" removed Surgical History hysterectomy (for bleeding) 1993 Surgical History R carpal tunnel ([place]) 1999 Surgical History cholecystectomy 2001 Surgical History cardiac cath ([place]) - insignificant CAD 12/2003 Surgical History cardiac cath ([place]) - insignificant CAD 05/2005 Surgical History R 5th toe amputation 09/2010 Surgical History L 5th toe amputation 11/2010 Surgical History cardiac cath ([place]) - insignificant CAD 12/2010 Surgical History R 3rd to amputation 08/2011 Surgical History L 3rd toe amp 01/04 Surgical History appendectomy 04/07 Surgical History R 2nd toe Amputation 04/14/12 Surgical History Right AVF placed Dr. Powell 05/2015 Surgical History OM (MSSA) requiring amp rays left 05/28 Surgical History left radiocephalic AV fistul a-Dr Powell Syr- 09/05: non functioning 05/2015 Surgical History [place]- [place]-Diverticulosis 07/07 Surgical History left thumb surgery- [employer] 06/01/17 Surgical History Excisional debridement throu gh [...] Medication Name Sig Start Date Stop Date Alcohol Pads 70 % as directed B/S Testing 2-4 times a day dx: E11.65 for 30 days Oct, Calcitriol 0.25 MCG TAKE 2 CAPSULES EVERY DAY ON THURSDAY THROUGH THURSDAY orally as directed for 30 days Lancets - as directed Delica 2-4 times daily dx: E 11.65 for 30 days Oct, Test Strips - as directed Verio Reflect te st 2-4 times a day dx: E11.65 for 30 days Oct, Lidoderm 5 % 1 patch remove after 12 hours Externally Once a day for 21 day(s) Oct, Gabapentin 300 MG 1 cap Orally three times daily for 30 Days predniSONE 10 MG (48) as directed Orally Take 60 m gx4 days, 40mgx4 days, [id number], for 12 days Oct, Next Appt Details Provider Name:Jeremy Cornell, 2020-10-0 7 02:00:00 PM, [address] [facility], , [place], [address], Insurance Providers Payer Name Payer Address Payer Phone Insured Name Patient Relati onship to Insured Coverage Start Date Coverage End Date MEDICARE Part A and B [address] [facility] [id number] CARMELITA NARAYAN self
--- OUTSIDE RECORDS SUMMARY | 2020-12-06 16:07 | CCD ---
Author Author [facility] Organization [facility] Address Unknown Phone Unavailable Care Team Providers Care Financing Analyst Name Role Phone Juan Miguel Quarles Unavailable PROBLEMS Type Condition ICD9-CM Code ZQT68-ID Code Onset Dates Condition S tatus W/U Status Risk SNOMED Code Notes Problem Depressive disorder, not elsewhere classified F32. 9 Active confirmed 76374260 Problem Mixed hyperlipidemia E78.2 Active confirmed 004436083 Problem Amplified musculoskeletal pain, diffuse M79.1 Active confirmed 853571057 Problem Cellulitis of unspecified part of limb L03.119 A ctive confirmed 510593342 Problem Hearing loss H91.90 Active confirmed 2023877 1 Problem Multilevel degenerative disc disease M53.9 Act marquez confirmed 46785918 Problem Methicillin susceptible Staphylococcus aureus infection A49.01 Active confirmed 519380705 Problem Traumatic open wound of left lower leg, subsequent enc ounter S81.802D Active confirmed 935292284 Problem Type 2 diabetes mellitus with hyperglycemia E11.65 Active confirmed 32728795 Problem Non-healing wound of amputation stump T87.89 Ac tive confirmed 008842850 Problem Lower limb amputation, other toe(s) Z89.429 Acti ve confirmed 630317333 Problem Essential hypertension I10 Active confirmed 67699172 Problem Obesity E66.9 Active confirmed 888840872 Problem Adjustment disorder with anxious mood F43.22 Ac tive confirmed 72135274 Problem Diabetic polyneuropathy associated with type 2 d iabetes mellitus E11.42 Active confirmed 72550004 Problem Carpal tunnel syndrome, unspecified laterality G56 .00 Active confirmed 56147105 Problem Charcot foot due to diabetes mellitus E11.610 Ac tive confirmed 61906766 Problem jail current use of insulin Z79.4 Active conf irmed 014202606 Problem Stage 4 chronic kidney disease N18.4 Active confir med 402699650 Problem Status post below knee amputation of left lower extremity Z89.512 Active confirmed 986783003831266 Problem Chronic disease anemia D63.8 Active confirmed 147240755 Problem Other specified diabetes mellitus with foot ulcer E13.621 Active confirmed 1504044 Problem Hypertensive chronic kidney disease with stage 1 through stage 4 chronic kidney disease, or unspecified chronic kidney disease I12.9 Active confirmed 05040974 Problem Type 2 diabetes mellitus with other specified complication E11.69 Active confirmed 40055048382199 Problem 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 Z79.4 Activ e confirmed 697238943 Problem Secondary hypoparathyroidism E20.8 Active confirme d 403033552 Problem Diabetes mellitus E11.9 Active confirmed 73 323666 Problem Vitamin D deficiency E55.9 Active confirmed 83399924 Problem CKD (chronic kidney disease) stage 4, GFR 15-29 ml/min N18.4 Active confirmed 399318922 Problem CAD (coronary artery disease) I25.10 Active confirm ed 77961759 Problem Memory impairment R41.3 Active confirmed 38 0128017 Problem Tinnitus of both ears H93.13 Active confirmed 6832832871563 Problem Chronic kidney disease, stage 5 N18.5 Active confi rmed 512894445 Problem Type 2 diabetes mellitus with diabetic chronic kidney disease E11.22 Active confirmed 336975136265 ALLERGIES Allergen (clinical drug ingredient) Drug/Non Drug Allergy do cumented on EMR Reaction Allergy Type Onset Date Status Sulfa (for allergy use only) Unknown Drug Allergy Active Vicodin itching Drug Allergy Active aspirin / citric acid / sodium bicarbonate Arthur([facility] [place]NOTE 2[place] Code:[address]-92) Hives Drug Allergy Active Adhesive Tape rash Drug Allergy Active ENCOUNTERS from 1950 to 2020-11-21 Encounter Location Date Provider Diagnosis [address] [phone] [place] [address] Oct, Juan Miguel Quarles IMMUNIZATIONS Vaccine Route Administration Date Status Influenza 18 yrs & older Flublok Unknown [...] Education Language: Question Answer Notes Languages spoken: Indonesian Mormonism: Question Answer Notes Mormonism 13 Jainism No moravian beliefs that would impact healthcare [...] Notes Start Da te End Date Status NovoLOG FlexPen 100 UNIT/ML Use as per sliding scale w ith meals Subcutaneous AC and HS, MDD=42 units for 30 days Mar, Active Coreg 12.5MG 1 tab orally twice daily for 90 days Active Acetaminophen 325 MG 2 tablets Orally every 6 hrs prn pain Active Ferrous Sulfate 325 (65 Fe) MG 1 tablet Orally twice daily for 90 day s Active Spironolactone 25 mg 1 tablet Orally bid for 90 days Active predniSONE 10 MG (48) as directed Orally Take 60 m gx4 days, 40mgx4 days, [id number], for 12 days Oct, Active Test Strips - as directed Verio Reflect te st 2-4 times a day dx: E11.65 for 30 days Oct, Active Sofia-Nicolas 1 tablet Orally Once a day for 90 day(s) Active Tylenol PM Extra Strength 500-25 MG 1 tablet at bedtim e as needed Orally Once a day for 30 day(s) Apr, Active Alcohol Pads 70 % as directed [...] (Z89.512) Daily for 90 day(s) June, Active Lancets - as directed Delica 2-4 times daily dx: E11.65 fo r 30 days Oct, Active Lidoderm 5 % 1 patch remove [...] DX CODE:E11.9 for 99 months Mar, Active Nystatin 710020 UNIT/GM 1 application Externally Twice a day for 28 day(s) Dec, Not-Taking Fluconazole 150 MG 1 tablet Orally once for 1 day Aug, Not-Taking Blood Glucose Test blood glucose 1 strip E11.9 Five times a day for 90 day(s) Active FreeStyle Janette Sensor System - as directed topically four times daily for 30 days Active oxyCODONE-Acetaminophen 5-325 MG 1 tablet as needed Orally every 6 hr s Active Wheelchair - as directed topically Daily for 999 days 2020 Active Atorvastatin Calcium 40 mg 1 tablet Orally before bedtime for 90 days Active Gabapentin 300 MG 1 cap Orally three times daily for 30 Days Active Syringe (Disposable) 140 ML dx:e11.9 SQ four times daily for 30 day(s ) Active BD Insulin Syringe Ultrafine 31G X [...] ONCE DAILY Oral Once a day Active Potassium chloride 20 meq 1 tab orally BID for 90 days Not-Taking Paxil 40 MG 1 tablet in the morning Orally Once a day for 90 days Jan, Active HumaLOG 100 UNIT/ML USE DIRECTED PER SLIDING SCALE WITH MEALS, max daily dose 42 units. subcutaneously AC and HS for 30 days Not-Taking Needle (Reusable) 30G X 1/2 DX : 250.4 subcutaneously four times daily for 30 Active Northern BrewerTouch Ultra II Test Strips 1 ICD:E11.9 FSBS 5 times per day f or 90 day(s) Mar, Active FreeStyle Janette 14 Day [place] - as directed transdermally contin uously Dec, Active Calcitriol 0.25 MCG TAKE 2 CAPSULES EVERY DAY ON THURSDAY THROUGH THURSDAY orally as directed for 30 days Active PROCEDURES No Information RESULTS No Results REASON FOR VISIT mail order MEDICAL (GENERAL) HISTORY Type Description Date Medical [...] History Charcot foot ([place]) Medical History Hyperlipidemia, [id number]-cqnf risk was 3. 7 in 2018 Medical History Inflammatory anemia/Fe Def Anemia Medical History Depression Medical History Fibromyalgia Medical History DJD/OA (back) Medical History Chemical nuclear cardiac str ess test @ [facility] 04/10/10 - no reversible defects/ischemia Surgical History tonsillectomy 1974 Surgical History D & C 1973, 1976 x 2 Surgical History 1972, 1977 Surgical History "spine cyst" removed Surgical History hysterectomy (for bleeding) 1993 Surgical History R carpal tunnel ([place]) 1999 Surgical History cholecystectomy 2001 Surgical History cardiac cath ([place]) - insignificant CAD 12/2003 Surgical History cardiac cath ([facility]) - insignificant CAD 05/2005 Surgical History R 5th toe amputation 09/2010 Surgical History L 5th toe amputation 11/2010 Surgical History cardiac cath ([place]) - insignificant CAD 12/2010 Surgical History R 3rd to amputation 08/2011 Surgical History L 3rd toe amp 01/04 Surgical History appendectomy 04/07 Surgical History R 2nd toe Amputation 04/14/12 Surgical History Right AVF placed Dr. Powell 05/2015 Surgical History OM (MSSA) requiring amp rays left 05/28 Surgical History left radiocephalic AV fistul a-Dr Powell Syr- 09/05: non functioning 05/2015 Surgical History [place]- Baryuga-Diverticulosis 07/07 Surgical History left thumb surgery- [place] 06/01/17 Surgical History Excisional debridement throu gh muscle, skin and subcutaneous tissue left foot with application of wound VAC. ([place]) 05/31/18 Surgical History Incision of complex abscess [...] Medication Name Sig Start Date Stop Date Paxil 40 MG 1 tablet in the morning Orally Once a day for 90 days Jan, Calcitriol 0.25 MCG TAKE 2 CAPSULES EVERY DAY ON THURSDAY THROUGH THURSDAY orally as directed for 30 days Test Strips - as directed Verio Reflect [...] Take 60 m gx4 days, 40mgx4 days, 76chf7dwvr, for 12 days Oct, Lidoderm 5 % 1 patch remove after 12 hours Externally Once a day for 21 day(s) 02 Sep, 2021 Next Appt Details Provider Name:Jeremy Cornell, 1-10-0 7 02:00:00 PM, [address] [facility], , [place], [address], Insurance Providers Payer Name Payer Address Payer Phone Insured Name Patient Relati onship to Insured Coverage Start Date Coverage End Date MEDICARE Part A and B [address] [facility] [phone] CARMELITA NARAYAN self
--- OUTSIDE RECORDS SUMMARY | 2020-12-06 16:07 | CCD ---
Author Author [facility] Organization [facility] Address Unknown Phone Unavailable Care Team Providers Care Philanthropy Officer Name Role Phone Juan Miguel Quarles Unavailable PROBLEMS Type Condition ICD9-CM Code AWR72-MY Code Onset Dates Condition S tatus W/U Status Risk SNOMED Code Notes Problem Obesity E66.9 Active confirmed 492498881 Problem Amplified musculoskeletal pain, diffuse M79.1 Active confirmed 481586308 Problem Essential hypertension I10 Active confirmed 69659024 Problem Hearing loss H91.90 Active confirmed 3434201 1 Problem Mixed hyperlipidemia E78.2 Active confirmed 693263178 Problem Methicillin susceptible Staphylococcus aureus infection A49.01 Active confirmed 357654913 Problem Cellulitis of unspecified part of limb L03.119 A ctive confirmed 093715956 Problem Non-healing wound of amputation stump T87.89 Ac tive confirmed 842272553 Problem Lower limb amputation, other toe(s) Z89.429 Acti ve confirmed 996381299 Problem Status post below knee amputation of left lower extremity Z89.512 Active confirmed 689471448162270 Problem Chronic disease anemia D63.8 Active confirmed 489515070 Problem Depressive disorder, not elsewhere classified F32. 9 Active confirmed 79151428 Problem Type 2 diabetes mellitus with hyperglycemia E11.65 Active confirmed 99919398 Problem Diabetic polyneuropathy associated with type 2 d iabetes mellitus E11.42 Active confirmed 25807604 Problem CAD (coronary artery disease) I25.10 Active confirm ed 52368453 Problem Charcot foot due to diabetes mellitus E11.610 Ac tive confirmed 79311663 Problem Adjustment disorder with anxious mood F43.22 Ac tive confirmed 07738357 Problem Stage 4 chronic kidney disease N18.4 Active confir med 841336329 Problem Carpal tunnel syndrome, unspecified laterality G56 .00 Active confirmed 36307208 Problem Other specified diabetes mellitus with foot ulcer E13.621 Active confirmed 6783929 Problem 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 card 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 current use of insulin Z79.4 Active conf irmed 772930222 Problem Traumatic open wound of left lower leg, subsequent enc ounter S81.802D Active confirmed 834323417 Problem Hypertensive chronic kidney disease with stage 1 through stage 4 chronic kidney disease, or unspecified chronic kidney disease I12.9 Active confirmed 97434199 Problem Type 2 diabetes mellitus with other specified complication E11.69 Active confirmed 21527691933191 Problem Chronic kidney disease, stage 5 N18.5 Active confi rmed 481897103 Problem CKD (chronic kidney disease) stage 4, GFR 15-29 ml/min N18.4 Active confirmed 679881348 Problem Type 2 diabetes mellitus with diabetic chronic kidney disease E11.22 Active confirmed 902225226353 Problem Multilevel degenerative disc disease M53.9 Act marquez confirmed 03559476 Problem Diabetes mellitus E11.9 Active confirmed 73 814918 Problem senior care (current) use of insulin Z79.4 Activ e confirmed 344824588 Problem Memory impairment R41.3 Active confirmed 38 5378987 Problem Tinnitus of both ears H93.13 Active confirmed 7693612109777 Problem History of left below knee amputation Z89.512 Ac tive confirmed 338439236771964 ALLERGIES Allergen (clinical drug ingredient) Drug/Non Drug Allergy do cumented on EMR Reaction Allergy Type Onset Date Status Sulfa (for allergy use only) Unknown Drug Allergy Active Vicodin itching Drug Allergy Active aspirin / citric acid / sodium bicarbonate Arthur([facility] Code:[address]-14) Hives Drug Allergy Active Adhesive Tape rash Drug Allergy Active ENCOUNTERS from 1950 to 2020-09-17 [place]counter Location Date Provider [place] [facility] [place] [address] [phone] [place] [address] Aug, Juan Miguel Quarles IMMUNIZATIONS Vaccine Route [...] Education Language: Question Answer Notes Languages spoken: Slovak Confucianism: Question Answer Notes Confucianism 13 Jainism No judaism beliefs that would impact healthcare Sexual Hx: [...] sliding scale for 30 days Not-Ta zack Ferrous Sulfate 325 (65 Fe) MG 1 tablet Orally twice daily for 90 day s Active Wheelchair - as directed topically Daily for 999 days 2020 Active Nystatin 000379 UNIT/GM 1 application Externally Twice a day for 28 day(s) Dec, Not-Taking Blood Glucose Monitor System w/Device Daily intraderma lly DX CODE:E11.9 for 99 months 10 Mar, 2015 Active Torsemide 20 MG 2 tablet Orally BID for 90 days Apr, Active Paxil 40 MG 1 tablet in the morning Orally Once a day for 90 days Jan, Active Syringe (Disposable) 140 ML dx:e11.9 SQ four times daily for 30 day(s ) Active Lantus SoloStar 100 UNIT/ML 40 units am 40 units pm, MDD 90 Subc utaneous bid June, Active Coreg 12.5MG 1 tab orally twice daily for 90 days Active Acetaminophen 325 MG 2 tablets Orally every 6 hrs prn pain Active FreeStyle Janette 14 Day [place] - as directed transdermally contin uously Dec, [...] tab orally BID for 90 days Not-Taking Atorvastatin Calcium 40 mg 1 tablet Orally before bedtime for 90 days Active Accu-Chek Soft Touch [...] Information RESULTS No Results REASON FOR VISIT a1c MEDICAL (GENERAL) HISTORY Type Description Date Medical History CKD V/ESRD, 2/2 diabetic nep hropathy (Dr. Dong/Maureen Velázquez, MELBA) Medical History CAD ([place])--NST 04/05: normal perfusion , EF 70% Medical History HFpEF - [facility] Medical History Type 2 diabetes with nephrop athy, retinopathy and neuropathy, goal HbA1c 7.5 Medical History DM neuropathy with chronic foot ulcerati ons (Marioitijazzmine, Anne) Medical History Hypertension, goal BP 130/80 Medical History Charcot foot ([place]) Medical History Hyperlipidemia, [id number] risk was 3. 7 in 2018 Medical History Inflammatory anemia/Fe Def Anemia Medical History Depression Medical History Fibromyalgia Medical History DJD/OA (back) Medical History Chemical nuclear cardiac str ess test @ [facility] 04/10/10 - no reversible defects/ischemia Surgical History tonsillectomy 1974 Surgical History D & C 1973, 1976 x 2 Surgical History 1972, 1977 Surgical History "spine cyst" removed Surgical History hysterectomy (for bleeding) 1993 Surgical History R carpal tunnel ([place]ddi) 1999 Surgical History cholecystectomy 2001 Surgical History cardiac cath ([place]) - insignificant CAD 12/2003 Surgical History cardiac cath ([place]) - insignificant CAD 05/2005 Surgical History R 5th toe amputation 09/2010 Surgical History L 5th toe amputation 11/2010 Surgical History cardiac cath ([place]) - insignificant CAD 12/2010 Surgical History R 3rd to amputation 08/2011 Surgical History L 3rd toe amp 01/04 Surgical History appendectomy 04/07 Surgical History R 2nd toe Amputation 04/14/12 Surgical History Right AVF placed Dr. Powell 05/2015 Surgical History OM (MSSA) requiring amp rays left 05/28 Surgical History left radiocephalic AV fistul a-Dr Andre Caldwell- 09/05: non functioning 05/2015 Surgical History [place]- Baryuga-Diverticulosis 07/07 Surgical History left thumb surgery- [place] 06/01/17 Surgical History Excisional debridement throu gh muscle, skin and subcutaneous tissue left foot with application of wound VAC. ([place]azz[place]) 05/31/18 Surgical History Incision of complex abscess with peroneal tendon sheath, lateral compartment abscess, left foot. ([place]) 05/21/18 Surgical History Left Below the Knee [...] Information ASSESSMENTS No Information PLAN OF TREATMENT Next Appt Details Provider Name:Jeremy Dick Aneta, 2020-09-0 2 03:15:00 PM, [address] [place] [address], , [place], [address], Insurance Providers Payer Name Payer Address Payer Phone Insured Name Patient Relati onship to Insured Coverage Start Date Coverage End Date MEDICARE Part A and B [address] [facility] [phone] [phone] CARMELITA NARAYAN self
--- OUTSIDE RECORDS SUMMARY | 2020-12-06 16:07 | CCD ---
Author Author [facility] Organization [facility] Address Unknown Phone Unavailable Care Team Providers Care Marketing Intelligence Analyst Name Role Phone Juan Miguel Quarles Unavailable PROBLEMS Type Condition ICD9-CM Code YWP40-SV Code Onset Dates Condition S tatus W/U Status Risk SNOMED Code Notes Problem Depressive disorder, not elsewhere classified F32. 9 Active confirmed 19318799 Problem Essential hypertension I10 Active confirmed 70002790 Problem Obesity E66.9 Active confirmed 035614410 Problem Mixed hyperlipidemia E78.2 Active confirmed 914776499 Problem Amplified musculoskeletal pain, diffuse M79.1 Active confirmed 039053526 Problem Cellulitis of unspecified part of limb L03.119 A ctive confirmed 069967335 Problem Hearing loss H91.90 Active confirmed 8379282 1 Problem Status post below knee amputation of left lower extremity Z89.512 Active confirmed 179099956801202 Problem Chronic disease anemia D63.8 Active confirmed 998632314 Problem Other specified diabetes mellitus with foot ulcer E13.621 Active confirmed 1477773 Problem Type 2 diabetes mellitus with hyperglycemia E11.65 Active confirmed 76056512 Problem Lower limb amputation, other toe(s) Z89.429 Acti ve confirmed 112433550 Problem CAD (coronary artery disease) I25.10 Active confirm ed 09167370 Problem Diabetes mellitus E11.9 Active confirmed 73 730755 Problem Adjustment disorder with anxious mood F43.22 Ac tive confirmed 55037847 Problem Diabetic polyneuropathy associated with type 2 d iabetes mellitus E11.42 Active confirmed 31522954 Problem Carpal tunnel syndrome, unspecified laterality G56 .00 Active confirmed 82123197 Problem Charcot foot due to diabetes mellitus E11.610 Ac tive confirmed 45573116 Problem 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 Z79.4 Active conf irmed 224803706 Problem Stage 4 chronic kidney disease N18.4 Active confir med 890042453 Problem Non-healing wound of amputation stump T87.89 Ac tive confirmed 283496288 Problem Traumatic open wound of left lower leg, subsequent enc ounter S81.802D Active confirmed 466962569 Problem Hypertensive chronic kidney disease with stage 1 through stage 4 chronic kidney disease, or unspecified chronic kidney disease I12.9 Active confirmed 34531202 Problem Chronic kidney disease, stage 5 N18.5 Active confi rmed 285310803 Problem Multilevel degenerative disc disease M53.9 Act marquez confirmed 44013435 Problem Type 2 diabetes mellitus with diabetic chronic kidney disease E11.22 Active confirmed 055334086813 Problem Methicillin susceptible Staphylococcus aureus infection A49.01 Active confirmed 045785547 Problem CKD (chronic kidney disease) stage 4, GFR 15-29 ml/min N18.4 Active confirmed 936959891 Problem Type 2 diabetes mellitus with other specified complication E11.69 Active confirmed 95168781958213 Problem MCFP (current) use of insulin Z79.4 Activ e confirmed 893107870 Problem Memory impairment R41.3 Active confirmed 38 8875409 Problem Tinnitus of both ears H93.13 Active confirmed 5050811700306 ALLERGIES Allergen (clinical drug ingredient) Drug/Non Drug Allergy do cumented on EMR Reaction Allergy Type Onset Date Status Sulfa (for allergy use only) Unknown Drug Allergy Active Vicodin itching Drug Allergy Active aspirin / citric acid / sodium bicarbonate Arthur([facility] Code:[address]-21) Hives Drug Allergy Active Adhesive Tape rash Drug Allergy Active ENCOUNTERS from 1950 to 2020-11-07 Encounter Location Date Provider [place] [facility] [place] [address] [phone] [place] [address] 12 Oct, 2020 Juan Miguel Quarles IMMUNIZATIONS Vaccine Route [...] Education Language: Question Answer Notes Languages spoken: Polish Bahai: Question Answer Notes Bahai 13 Alevism No caodaism beliefs that would impact healthcare Sexual Hx: [...] Take 60 m gx4 days, 40mgx4 days, 36lzm5yqun, for 12 days Oct, Active Lancets - [...] DX CODE:E11.9 for 99 months Mar, Active [email or web address] Janette Sensor System - as directed topically [...] units for 30 days Mar, Active Nystatin 903505 UNIT/GM 1 application Externally Twice a day [...] 30 days Not-Taking FreeStyle Janette 14 Day [place] - as directed transdermally contin uously Dec, [...] History Charcot foot ([place]) Medical History Hyperlipidemia, ABWSU09-scpk risk was 3. 7 in 2018 Medical History Inflammatory anemia/Fe Def Anemia Medical History Depression Medical History Fibromyalgia Medical History DJD/OA (back) Medical History Chemical nuclear cardiac str ess test @ [facility] 04/10/10 - no reversible defects/ischemia Surgical History tonsillectomy 1974 Surgical History D & C 1973, 1976 x 2 Surgical History 1972, 1977 Surgical History "spine cyst" removed Surgical History hysterectomy (for bleeding) 1993 Surgical History R carpal tunnel ([place]) 1999 Surgical History cholecystectomy 2001 Surgical History cardiac cath ([place]) - insignificant CAD 12/2003 Surgical History cardiac cath ([place]) - insignificant CAD 05/2005 Surgical History R 5th toe amputation 09/2010 Surgical History L 5th toe amputation 11/2010 Surgical History cardiac cath ([place]) - insignificant CAD 12/2010 Surgical History R 3rd to amputation 08/2011 Surgical History L 3rd toe amp 01/04 Surgical History appendectomy 04/07 Surgical History R 2nd toe Amputation 04/14/12 Surgical History Right AVF placed Dr. Powell 05/2015 Surgical History OM (MSSA) requiring amp rays left 05/28 Surgical History left radiocephalic AV fistul a-Dr Andre Caldwell- 09/05: non functioning 05/2015 Surgical History [place]- [place]ary[place]-Diverticulosis 07/07 Surgical History left thumb surgery- [place] 06/01/17 Surgical History Excisional debridement throu gh [...] Take 60 m gx4 days, 40mgx4 days, [id number], for 12 days Oct, Lidoderm 5 % 1 patch remove after 12 hours Externally Once a day for 21 day(s) Oct, Next Appt Details Provider Name:Jeremy Cornell, 2020-10-0 7 02:00:00 PM, [address] [facility] [facility], , [place], [address], Insurance Providers Payer Name Payer Address Payer Phone Insured Name Patient Relati onship to Insured Coverage Start Date Coverage End Date MEDICARE Part A and B [address] [facility] [phone] CARMELITA NARAYAN self
--- OUTSIDE RECORDS SUMMARY | 2020-12-06 16:09 | CCD ---
Author Author [facility] Organization [facility] Address Unknown Phone Unavailable Care Team Providers Care Binder Fixer Name Role Phone Kapil Cornell MD Unavailable Unavailable Kapil Cornell MD Unavailable Unavailable Kapil Cornell MD Unavailable Unavailable Kapil Cornell MD Unavailable Unavailable Kapil Cornell MD Unavailable Unavailable Kapil Cornell MD Unavailable Unavailable Kapil Cornell MD Unavailable Unavailable Kapil Cornell MD Unavailable Unavailable Kapil Cornell MD Unavailable Unavailable Kapil Cornell MD Unavailable Unavailable Kapil Cornell MD Unavailable Unavailable Kapil Cornell MD Unavailable Unavailable Kapil Cornell MD Unavailable Unavailable Kapil Cornell MD Unavailable Unavailable Kapil Cornell MD Unavailable Unavailable Kapil Cornell MD Unavailable Unavailable Kapil Cornell MD Unavailable Unavailable Kapil Cornell MD Unavailable Unavailable Kapil Cornell MD Unavailable Unavailable Kapil Cornell MD Unavailable Unavailable Kapil Cornell MD Unavailable Unavailable Kapil Cornell MD Unavailable Unavailable Kapil Cornell MD Unavailable Unavailable Kapil Cornell MD Unavailable Unavailable Kapil Cornell MD Unavailable Unavailable Kapil Cornell MD Unavailable Unavailable Kapil Cornell MD Unavailable Unavailable Kapil Cornell MD Unavailable Unavailable Kapil Cornell MD Unavailable Unavailable Kapil Cornell MD Unavailable Unavailable Kapil Cornell MD Unavailable Unavailable Kapil Cornell MD Unavailable Unavailable Kapil Cornell MD Unavailable Unavailable Kapil Cornell MD Unavailable Unavailable Kapil Cornell MD Unavailable Unavailable Kapil Cornell MD Unavailable Unavailable Kapil Cornell MD Unavailable Unavailable Kapil Cornell MD Unavailable Unavailable Kapil Cornell MD Unavailable Unavailable Kapil Cornell MD Unavailable Unavailable Kapil Cornell MD Unavailable Unavailable Kapil Cornell MD Unavailable Unavailable Kapil Cornell MD Unavailable Unavailable Kaipl Cornell MD Unavailable Unavailable Kapil Cornell MD Unavailable Unavailable Kapil Cornell MD Unavailable Unavailable Kapil Cornell MD Unavailable Unavailable Kapil Cornell MD Unavailable Unavailable Kapil Cornell MD Unavailable Unavailable Kapil Cornell MD Unavailable Unavailable Kapil Cornell MD Unavailable Unavailable Kapil Cornell MD Unavailable Unavailable Kapil Cornell MD Unavailable Unavailable Kapil Cornell MD Unavailable Unavailable Kapil Cornell MD Unavailable Unavailable Rosana Hunter MD Unavailable Unavailable Rosana Hunter MD Unavailable Unavailable Rosana Hunter MD Unavailable Unavailable Rosana Hunter MD Unavailable Unavailable Rosana Hunter MD Unavailable Unavailable Rosana Hunter MD Unavailable Unavailable Rosana Hunter MD Unavailable Unavailable Rosana Hunter MD Unavailable Unavailable Rosana Hunter MD Unavailable Unavailable Rosana Hunter MD Unavailable Unavailable Rosana Hunter MD Unavailable Unavailable Rosana Hunter MD Unavailable Unavailable Rosana Hunter MD Unavailable Unavailable Rosana Hunter MD Unavailable Unavailable Rosana Hunter MD Unavailable Unavailable Rosana Hunter MD Unavailable Unavailable Rosana Hunter MD Unavailable Unavailable Rosana Hunter MD Unavailable Unavailable Rosana Hunter MD Unavailable Unavailable Rosana Hunter MD Unavailable Unavailable Mollison, Rosana Martin MD Unavailable Unavailable Mollison, Rosana Martin MD Unavailable Unavailable Mollison, Rosana Martin MD Unavailable Unavailable Mollison, Rosana Martin MD Unavailable Unavailable Mollison, Rosana Martin MD Unavailable Unavailable Mollison, Rosana Martin MD Unavailable Unavailable Mollison, Rosana Martin MD Unavailable Unavailable Mollison, Rosana Martin MD Unavailable Unavailable Mollison, Rosana Martin MD Unavailable Unavailable Mollison, Rosana Martin MD Unavailable Unavailable Yvonne SOLIS Unavailable Unavailable Thankachan, Reeba YOUTH CARE WORKER Unavailable Unavailable Thankachan, Reeba YOUTH CARE WORKER Unavailable Unavailable Thankachan, Reeba YOUTH CARE WORKER Unavailable Unavailable Thankachan, Reeba YOUTH CARE WORKER Unavailable Unavailable Thankachan, Reeba YOUTH CARE WORKER Unavailable Unavailable Thankachan, Reeba YOUTH CARE WORKER Unavailable Unavailable Thankachan, Reeba YOUTH CARE WORKER Unavailable Unavailable Thankachan, Reeba YOUTH CARE WORKER Unavailable Unavailable Thankachan, Reeba YOUTH CARE WORKER Unavailable Unavailable Thankachan, Reeba YOUTH CARE WORKER Unavailable Unavailable Thankachan, Reeba YOUTH CARE WORKER Unavailable Unavailable Thankachan, Reeba YOUTH CARE WORKER Unavailable Unavailable Thankachan, Reeba YOUTH CARE WORKER Unavailable Unavailable Thankachan, Reeba YOUTH CARE WORKER Unavailable Unavailable Thankachan, Reeba YOUTH CARE WORKER Unavailable Unavailable Thankachan, Reeba YOUTH CARE WORKER Unavailable Unavailable Thankachan, Reeba YOUTH CARE WORKER Unavailable Unavailable Thankachan, Reeba YOUTH CARE WORKER Unavailable Unavailable Thankachan, Reeba YOUTH CARE WORKER Unavailable Unavailable Thankachan, Reeba YOUTH CARE WORKER Unavailable Unavailable Thankachan, Reeba YOUTH CARE WORKER Unavailable Unavailable Thankachan, Reeba YOUTH CARE WORKER Unavailable Unavailable Thankachan, Reeba YOUTH CARE WORKER Unavailable Unavailable Thankachan, Reeba YOUTH CARE WORKER Unavailable Unavailable Thankachan, Reeba YOUTH CARE WORKER Unavailable Unavailable Thankachan, Reeba YOUTH CARE WORKER Unavailable Unavailable Thankachan, Reeba YOUTH CARE WORKER Unavailable Unavailable Thankachan, Reeba YOUTH CARE WORKER Unavailable Unavailable Thankachan, Reeba YOUTH CARE WORKER Unavailable Unavailable Thankachan, Reeba YOUTH CARE WORKER Unavailable Unavailable Thankachan, Reeba YOUTH CARE WORKER Unavailable Unavailable Thankachan, Reeba YOUTH CARE WORKER Unavailable Unavailable Thankachan, Reeba YOUTH CARE WORKER Unavailable Unavailable Thankachan, Reeba YOUTH CARE WORKER Unavailable Unavailable Thankachan, Reeba YOUTH CARE WORKER Unavailable Unavailable Thankachan, Reeba YOUTH CARE WORKER Unavailable Unavailable Thankachan, Reeba YOUTH CARE WORKER Unavailable Unavailable Thankachan, Reeba YOUTH CARE WORKER Unavailable Unavailable Thankachan, Reeba YOUTH CARE WORKER Unavailable Unavailable Thankachan, Reeba YOUTH CARE WORKER Unavailable Unavailable Thankachan, Reeba YOUTH CARE WORKER Unavailable Unavailable Thankachan, Reeba YOUTH CARE WORKER Unavailable Unavailable Thankachan, Reeba YOUTH CARE WORKER Unavailable Unavailable Thankachan, Reeba YOUTH CARE WORKER Unavailable Unavailable Thankachan, Reeba YOUTH CARE WORKER Unavailable Unavailable Thankachan, Reeba YOUTH CARE WORKER Unavailable Unavailable Thankachan, Reeba YOUTH CARE WORKER Unavailable Unavailable Thankachan, Reeba YOUTH CARE WORKER Unavailable Unavailable Cederstrand, Roro Schwab MD Unavailable Unavailable Cederstrand, Roro Schwab MD Unavailable Unavailable Cederstrand, Roro Schwab MD Unavailable Unavailable Cederstrand, Roro Schwab MD Unavailable Unavailable Cederstrand, Roro Schwab MD Unavailable Unavailable Cederstrand, Roro Schwab MD Unavailable Unavailable Cederstrand, Roro Schwab MD Unavailable Unavailable Cederstrand, Roro Schwab MD Unavailable Unavailable Cederstrand, Roro Schwab MD Unavailable Unavailable Cederstrand, Roro Schwab MD Unavailable Unavailable Cederstrand, Roro Schwab MD Unavailable Unavailable Cederstrand, Roro Schwab MD Unavailable Unavailable Cederstrand, Roro Schwab MD Unavailable Unavailable Cederstrand, Roro Schwab MD Unavailable Unavailable Cederstrand, Roro Schwab MD Unavailable Unavailable Cederstrand, Roro Schwab MD Unavailable Unavailable Michelle CARVALHO Unavailable Unavailable Shaban, M Eman Unavailable Shaban, M Eman Unavailable Shaban, M Eman Unavailable Shaban, M Eman Unavailable Shaban, M Eman Unavailable Shaban, M Eman Unavailable Shaban, M Eman Unavailable Shaban, M Eman Unavailable DIA QUIÑONES MD Unavailable Unavailable DIA QUIÑONES MD Unavailable Unavailable SHABAN, M EMAN Unavailable Unavailable Hayes, V DWIGHT PA-C Unavailable Unavailable Hayes, V DWIGHT PA-C Unavailable Unavailable Hayes, V DWIGHT PA-C Unavailable Unavailable Sarah, V DWIGHT PA-C Unavailable Unavailable Sarah, V DWIGHT PA-C Unavailable Unavailable Hayes, V DWIGHT PA-C Unavailable Unavailable Hayes, V DWIGHT PA-C Unavailable Unavailable Hayes, V DWIGHT PA-C Unavailable Unavailable Sarah, V DWIGHT PA-C Unavailable Unavailable Hayes, V DWIGHT PA-C Unavailable Unavailable Hayes, V DWIGHT PA-C Unavailable Unavailable Hayes, V DWIGHT PA-C Unavailable Unavailable Hayes, V DWIGHT PA-C Unavailable Unavailable Sarah, V DWIGHT PA-C Unavailable Unavailable Mike, L Clari RPA Unavailable Unavailable Mike, L Clari RPA Unavailable Unavailable Mike, L Clari RPA Unavailable Unavailable Mike, L Clari RPA Unavailable Unavailable Mike, L Clari RPA Unavailable Unavailable Mike, L Clari RPA Unavailable Unavailable Mike, L Clari RPA Unavailable Unavailable Mike, L Clari RPA Unavailable Unavailable Mike, L Clari RPA Unavailable Unavailable Mike, L Clari RPA Unavailable Unavailable Mike, L Clari RPA Unavailable Unavailable Mike, L Clari RPA Unavailable Unavailable Mike, L Clari RPA Unavailable Unavailable Mike, L Clari RPA Unavailable Unavailable Mike, L Clari RPA Unavailable Unavailable Mike, L Clari RPA Unavailable Unavailable Mike, L Clari RPA Unavailable Unavailable Mike, L Clari RPA Unavailable Unavailable Mike, L Clari RPA Unavailable Unavailable Mike, L Clari RPA Unavailable Unavailable Mike, L Clari RPA Unavailable Unavailable Mike, L Clari RPA Unavailable Unavailable Mike, L Clari RPA Unavailable Unavailable Mike, L Clari RPA Unavailable Unavailable Mike, L Clari RPA Unavailable Unavailable Mike, L Clari RPA Unavailable Unavailable Mike, L Clari RPA Unavailable Unavailable Mike, L Clari RPA Unavailable Unavailable Mike, L Clari RPA Unavailable Unavailable Mike, L Clari RPA Unavailable Unavailable Mike, L Clari RPA Unavailable Unavailable Mike, L Clari RPA Unavailable Unavailable MD Yvonne Solis MD Unavailable MD Yvonne Solis MD Unavailable MD Yvonne Solis MD Unavailable MD Yvonne Solis MD Unavailable MD Yvonne Solis MD Unavailable MD Yvonne Solis MD Unavailable MD Yvonne Solis MD Unavailable MD Yvonne Solis MD Unavailable MD Yvonne Solis MD Unavailable MD Yvonne Solis MD Unavailable Will, MD Yvonne Asencio MD Unavailable Gallay, MD Yvonne Asencio MD Unavailable Gallwilmar, MD Yvonne Asencio MD Unavailable Gallwilmar, MD Yvonne Asencio MD Unavailable Gallwilmar, MD Yvonne Asencio MD Unavailable Gallwilmar, MD Yvonne Asencio MD Unavailable Gallwilmar, MD Yvonne Asencio MD Unavailable Gallay, MD Yvonne Asencio MD Unavailable Gallay, MD Yvonne Asencio MD Unavailable Gallay, MD Yvonne Asencio MD Unavailable Gallay, MD Yvonne Asencio MD Unavailable Gallay, MD Yvonne Asencio MD Unavailable Gallay, MD Yvonne Asencio MD Unavailable Gallay, MD Yvonne Asencio MD Unavailable Gallay, MD Yvonne Asencio MD Unavailable Gallay, MD Yvonne Asencio MD Unavailable Gallay, MD Yvonne Asencio MD Unavailable Gallay, MD Yvonne Asencio MD Unavailable Birchenough, L Maureen WEATHERCASTER Unavailable Unavailable Birchenough, L Maureen WEATHERCASTER Unavailable Unavailable Birchenough, L Maureen WEATHERCASTER Unavailable Unavailable Birchenough, L Maureen WEATHERCASTER Unavailable Unavailable Birchenough, L Maureen WEATHERCASTER Unavailable Unavailable Birchenough, L Maureen WEATHERCASTER Unavailable Unavailable Birchenough, L Maureen WEATHERCASTER Unavailable Unavailable Birchenough, L Maureen WEATHERCASTER Unavailable Unavailable Birchenough, L Maureen WEATHERCASTER Unavailable Unavailable Birchenough, L Maureen WEATHERCASTER Unavailable Unavailable Birchenough, L Maureen WEATHERCASTER Unavailable Unavailable Birchenough, L Maureen WEATHERCASTER Unavailable Unavailable Birchenough, L Maureen WEATHERCASTER Unavailable Unavailable Birchenough, L Maureen WEATHERCASTER Unavailable Unavailable Birchenough, L Maureen WEATHERCASTER Unavailable Unavailable Birchenough, L Maureen WEATHERCASTER Unavailable Unavailable Birchenough, L Maureen WEATHERCASTER Unavailable Unavailable Birchenough, L Maureen WEATHERCASTER Unavailable Unavailable Birchenough, L Maureen WEATHERCASTER Unavailable Unavailable Birchenough, L Maureen WEATHERCASTER Unavailable Unavailable Birchenough, L Maureen WEATHERCASTER Unavailable Unavailable Birchenough, L Maureen WEATHERCASTER Unavailable Unavailable Birchenough, L Maureen WEATHERCASTER Unavailable Unavailable Birchenough, L Maureen WEATHERCASTER Unavailable Unavailable Birchenough, L Maureen WEATHERCASTER Unavailable Unavailable Birchenough, L Maureen WEATHERCASTER Unavailable Unavailable Birchenough, L Maureen WEATHERCASTER Unavailable Unavailable Birchenough, L Maureen WEATHERCASTER Unavailable Unavailable Birchenough, L Maureen WEATHERCASTER Unavailable Unavailable Birchenough, L Maureen WEATHERCASTER Unavailable Unavailable Birchenough, L Maureen WEATHERCASTER Unavailable Unavailable Birchenough, L Maureen WEATHERCASTER Unavailable Unavailable Birchenough, L Maureen WEATHERCASTER Unavailable Unavailable Birchenough, L Maureen WEATHERCASTER Unavailable Unavailable Birchenough, L Maureen WEATHERCASTER Unavailable Unavailable Re-disclosure Warning The records that you are about to access may contain information from federally-assisted alcohol or drug abuse programs. If such information is present, then the following federally mandated warning applies: This information has been disclosed to you from records protected by federal confidentiality rules (42 CFR part 2). The federal rules prohibit you from making any further disclosure of this information unless further disclosure is expressly permitted by the written consent of the person to whom it pertains or as otherwise permitted by 42 CFR part 2. A general authorization for the release of medical or other information is NOT sufficient for this purpose. The Federal rules restrict any use of the information to criminally investigate or prosecute any alcohol or drug abuse patient.The records that you are about to access may contain highly sensitive health information, the redisclosure of which is protected by Article 27-F of the [facility] Public Health law. If you continue you may have access to information: Regarding HIV / AIDS; Provided by facilities licensed or operated by the [facility] Office of Mental Health; or Provided by the [facility] Office for People With Developmental Disabilities. If such information is present, then the following [facility] mandated warning applies: This information has been disclosed to you from confidential records which are protected by state law. State law prohibits you from making any further disclosure of this information without the specific written consent of the person to whom it pertains, or as otherwise permitted by law. Any unauthorized further disclosure in violation of state law may result in a fine or long-term sentence or both. A general authorization for the release of medical or other information is NOT sufficient authorization for further disc losure. Allergies and Adverse Reactions Type Description Substance Reaction Status Data Source(s ) Drug allergy ADHESIVE TAPE ADHESIVE TAPE RASH [facility] Encounters Encounter Providers Location Date Indications Data Source(s ) Outpatient Attender: Paige Cardenas NP 01/08/2021 12:00: [address] [facility] Outpatient Attender: STEPHANY Fang/Marylin/Honorio/Re indl 11/29/2020 10:45:00 AM EDT [facility] ([facility]) Outpatient Attender: MD Cris Solis MDAttender: CRIS ALEXIS 11/27/2020 12:00:00 AM [facility] Unknown [address] [facility] [place] [address] 11/21/2020 12:00:00 AM EDT eCW1 ([facility]) Unknown [address] [facility] [place] [address] 11/19/2020 12:00:00 AM EDT eCW1 ([facility]) Unknown [address] [facility] [address] [place] [address] 11/13/2020 12:00:00 AM EDT eCW1 ([facility]) Outpatient Attender: STEPHANY Fang/Marylin/Honorio/Re indl 11/08/2020 01:45:00 PM EDT [facility] ([facility]) Unknown [address] [facility] [place] [address] 11/06/2020 12:00:00 AM EDT eCW1 ([facility]) Unknown [address] [facility] [place] [address] 11/05/2020 12:00:00 AM EDT eCW1 ([facility]) Unknown [address] [facility] [place] [address] 11/04/2020 12:00:00 AM EDT eCW1 ([facility]) Outpatient [address] [facility] [place] [address] 10/25/2020 12:00:00 AM EDT eCW1 ([facility]) Unknown [address] [facility] [place] [address] 10/22/2020 12:00:00 AM EDT [facility]1 [facility]) Outpatient Attender: Patricia HodgesAttender: PATRICIA PRIYANKA 10/18/2020 12:00:00 AM [facility] Unknown [address] [facility] [place] [address] 10/14/2020 12:00:00 AM EDT [facility]CW1 [facility]) Outpatient Attender: NICOLÁS CARVALHO [id number] 09/25/2020 12:00:00 AM [facility] Outpatient Referrer: DWIGHT OLIVO-SJPAWILDA 12:00:00 AM EDT [facility] Unknown [address] [facility] [place] [address] 09/17/2020 12:00:00 AM EDT [facility]CW1 ([facility]) Unknown [address] [facility] [place] [address] 09/13/2020 12:00:00 AM EDT eCW1 ([facility]) Outpatient Attender: Maureen Velázquez RNPConsultant: Amanda Cornell MD 07/30/2020 12:47:00 PM EDT - 07/30/2020 01:47:00 PM EDT [facility] Outpatient [address] [facility] [place] [address] 07/26/2020 12:00:00 AM EDT eCW1 ([facility]) Outpatient Attender: DWIGHT OLIVO-SJP 01:18:38 PM EDT - 07/17/2020 02:49:38 PM EDT [facility] Unknown [address] [facility] [place] [address] 07/04/2020 12:00:00 AM EDT eCW1 ([facility]) Unknown [address] [facility] [place] [address] 06/27/2020 12:00:00 AM EDT eCW1 ([facility] Unknown [address] [facility] [place] [address] 06/25/2020 12:00:00 AM EDT eCW1 ([facility]) Unknown [address] [facility] [place] [address] 06/25/2020 12:00:00 AM EDT eCW1 ([facility]) Unknown [address] [facility] [place] [address] 06/25/2020 12:00:00 AM EDT eCW1 ([facility]) Unknown [address] [facility] [place] [address] 06/15/2020 12:00:00 AM EDT eCW1 ([facility]) Outpatient Attender: Josselin Fang/Marylin/Honorio/ Reindl 06/04/2020 04:00:00 PM EDT [facility] ([facility]) Unknown [address] [facility] [place] [address] 05/25/2020 12:00:00 AM EDT eCW1 ([facility]) Outpatient Attender: Mario Fang/Marylin/Honorio/Re indl 05/24/2020 01:00:00 PM EDT [facility] ([facility]) Unknown [address] [facility] [place] [address] 05/21/2020 12:00:00 AM EDT eCW1 ([facility]) Outpatient [address] [facility] [place] [address] 05/14/2020 12:00:00 AM EDT eCW1 ([facility]) Unknown [address] [facility] [place] [address] 05/09/2020 12:00:00 AM EDT eCW1 ([facility]) Outpatient Attender: Mario Fang/Marylin/Honorio/Re indl 05/03/2020 12:15:00 PM EST [facility] ([facility] Unknown [address] [facility] [place] [address] 04/18/2020 12:00:00 AM EST eCW1 ([facility]) Unknown [address] [facility] [place] [address] 04/18/2020 12:00:00 AM EST eCW1 ([facility]) Unknown [address] [facility] [place] [address] 04/09/2020 12:00:00 AM EST eCW1 ([facility]) Unknown [address] [facility] [place] [address] 04/07/2020 12:00:00 AM EST eCW1 ([facility]) Outpatient Attender: Clari Fang/Marylin/Honorio/R eindl 04/02/2020 10:30:00 AM EST [facility] ([facility] Unknown [address] [facility] [place] [address] 04/02/2020 12:00:00 AM EST eCW1 ([facility]) Unknown [address] [facility] [place] [address] 03/22/2020 12:00:00 AM EST eCW1 ([facility]) Unknown [address] [facility] [place] [address] 03/16/2020 12:00:00 AM EST eCW1 ([facility]) Unknown [address] [facility] [place] [address] 03/06/2020 12:00:00 AM EST eCW1 ([facility]) Unknown [address] [facility] [place] [address] 02/02/2020 12:00:00 AM EST eCW1 ([facility]) Unknown [address] [facility] [place] [address] 01/26/2020 12:00:00 AM EST eCW1 ([facility]) Unknown [address] [facility] [place] [address] 01/23/2020 12:00:00 AM EST eCW1 ([facility]) Unknown [address] [facility] [place] [address] 01/19/2020 12:00:00 AM EST eCW1 ([facility]) Unknown [address] [facility] [place] [address] 01/15/2020 12:00:00 AM EST eCW1 ([facility]) Unknown [address] [facility] [place] [address] 01/11/2020 12:00:00 AM EST eCW1 ([facility]) Unknown [address] [facility] [place] [address] 01/11/2020 12:00:00 AM EST eCW1 ([facility]) Outpatient [address] [facility] [place] [address] 01/10/2020 12:00:00 AM EST eCW1 ([facility]) Unknown [address] [facility] [place] [address] 01/02/2020 12:00:00 AM EST eCW1 ([facility]) Unknown [address] [facility] [place] [address] 01/01/2020 12:00:00 AM EST eCW1 ([facility]) Outpatient [address] [facility] [place] [address] 12/30/2019 12:00:00 AM EST eCW1 ([facility]) Outpatient Attender: DWIGHT OLIVO-SJELVA 06/2019 12:00:00 AM EST - 12/29/2019 04:00:46 PM EST [facility] Outpatient [address] [facility] [place] [address] 12/23/2019 12:00:00 AM EDT eCW1 ([facility]) Unknown [address] [facility] [place] [address] 12/16/2019 12:00:00 AM EDT eCW1 ([facility]) Unknown [address] [facility] [place] [address] 12/13/2019 12:00:00 AM EDT eCW1 ([facility]) Unknown [address] [facility] [place] [address] 11/15/2019 12:00:00 AM EDT eCW1 ([facility]) Unknown [address] [facility] [place] [address] 11/15/2019 12:00:00 AM EDT eCW1 ([facility]) Unknown [address] [facility] [place] [address] 11/15/2019 12:00:00 AM EDT eCW1 ([facility]) Immunizations Vaccine Date Status Description Data Source(s) COVID-19 VACCINE Moderna 05/14/2020 12:00:00 AM EDT completed [facility] Vaccine Series Complete: YESThis Data wa s Submitted to [facility] Via [facility]. COVID-19 VACCINE, MRNA-1273, LNP-S (MODERNA)/PF 05/14/2020 1 2:00:00 AM EDT completed [facility] COVID-19 VACCINE, MRNA-1273, LNP-S (MODERNA)/PF 04/19/2020 1 2:00:00 AM EST completed [facility] 12/23/2019 04:40:00 PM EDT completed e CW1 ([facility]) 12/23/2019 04:40:00 PM EDT completed e CW1 ([facility]) 12/23/2019 04:40:00 PM EDT completed e CW1 ([facility]) 12/23/2019 04:40:00 PM EDT completed e CW1 ([facility]) 12/23/2019 04:40:00 PM EDT completed e CW1 ([facility]) 12/23/2019 04:40:00 PM EDT completed e CW1 ([facility]) 12/23/2019 04:40:00 PM EDT completed e CW1 ([facility]) 12/23/2019 04:40:00 PM EDT completed e CW1 ([facility]) 12/23/2019 04:40:00 PM EDT completed e CW1 ([facility]) 12/23/2019 04:40:00 PM EDT completed e CW1 ([facility]) 12/23/2019 04:40:00 PM EDT completed e CW1 ([facility]) 12/23/2019 04:40:00 PM EDT completed e CW1 ([facility]) 12/23/2019 04:40:00 PM EDT completed e CW1 ([facility]) 12/23/2019 04:40:00 PM EDT completed e CW1 ([facility]) 12/23/2019 04:40:00 PM EDT completed e CW1 ([facility]) 12/23/2019 04:40:00 PM EDT completed e CW1 ([facility]) 12/23/2019 04:40:00 PM EDT completed e CW1 ([facility]) 12/23/2019 04:40:00 PM EDT completed e CW1 ([facility]) 12/23/2019 04:40:00 PM EDT completed e CW1 ([facility]) 12/23/2019 04:40:00 PM EDT completed e CW1 ([facility]) 12/23/2019 04:40:00 PM EDT completed e CW1 ([facility]) 12/23/2019 04:40:00 PM EDT completed e CW1 ([facility]) 12/23/2019 04:40:00 PM EDT completed e CW1 ([facility]) 12/23/2019 04:40:00 PM EDT completed e CW1 ([facility]) 12/23/2019 04:40:00 PM EDT completed e CW1 ([facility]) 12/23/2019 04:40:00 PM EDT completed e CW1 ([facility]) 12/23/2019 04:40:00 PM EDT completed e CW1 ([facility]) 12/23/2019 04:40:00 PM EDT completed e CW1 ([facility]) 12/23/2019 04:40:00 PM EDT completed e CW1 ([facility]) 12/23/2019 04:40:00 PM EDT completed e CW1 ([facility]) 12/23/2019 04:40:00 PM EDT completed e CW1 ([facility]) 12/23/2019 04:40:00 PM EDT completed e CW1 ([facility]) 12/23/2019 04:40:00 PM EDT completed e CW1 ([facility]) 12/23/2019 04:40:00 PM EDT completed e CW1 ([facility]) 12/23/2019 04:40:00 PM EDT completed e CW1 ([facility]) 12/23/2019 04:40:00 PM EDT completed e CW1 ([facility]) 12/23/2019 04:40:00 PM EDT completed e CW1 ([facility]) 12/23/2019 04:40:00 PM EDT completed e CW1 ([facility]) 12/23/2019 04:40:00 PM EDT completed e CW1 ([facility]) 12/23/2019 04:40:00 PM EDT completed e CW1 ([facility]) 12/23/2019 04:40:00 PM EDT completed e CW1 ([facility]) 12/23/2019 04:40:00 PM EDT completed e CW1 ([facility]) 12/23/2019 04:40:00 PM EDT completed e CW1 ([facility]) INFLUENZA VIRUS VACCINE QUADRIVAL SPLIT (65 YR UP)/PF 12/05/2019 12:00:00 AM EDT completed [facility] Medications Medication Brand Name Start Date Product Form Dose Route Admi nistrative Instructions Pharmacy Instructions Status Indications Reaction Description Data Source(s) 10 mg 11/08/2020 12:00:00 AM EDT tablet 48 TAKE 6 TABLETS BY MOUTH DAILY FOR 4 DAYS, 4 TABLETS FOR 4 DAYS, 2 TABLETS FOR 4 DAYS TAKE 6 TABLETS BY MOUTH DAILY FOR 4 DAYS, 4 TABLETS FOR 4 DAYS, 2 TABLETS FOR 4 DAYS SOLD: 11/09/2020 [facility] predniSONE 10 MG (48) predniSONE 10 MG (48) 11/07/2020 12:00:00 AM EDT active predniSONE 10 MG (48) eCW1 ( [facility]) predniSONE 10 MG (48) predniSONE 10 MG (48) 11/07/2020 12:00:00 AM EDT active predniSONE 10 MG (48) eCW1 ( [facility]) predniSONE 10 MG (48) predniSONE 10 MG (48) 11/07/2020 12:00:00 AM EDT active predniSONE 10 MG (48) eCW1 ( [facility]) predniSONE 10 MG (48) predniSONE 10 MG (48) 11/07/2020 12:00:00 AM EDT active predniSONE 10 MG (48) eCW1 ( [facility]) predniSONE 10 MG (48) predniSONE 10 MG (48) 11/07/2020 12:00:00 AM EDT active predniSONE 10 MG (48) eCW1 ( [facility]) predniSONE 10 MG (48) predniSONE 10 MG (48) 11/07/2020 12:00:00 AM EDT active predniSONE 10 MG (48) eCW1 ( [facility]) 25 mg 11/06/2020 12:00:00 AM EDT tablet 30 TAKE 1 TABLET BY MOUTH EVERY 12 HOURS NEEDED FOR ITCHING TAKE 1 TABLET BY MOUTH EVERY 12 HOURS NEEDED FOR ITCHING SOLD: 11/08/2020 [facility] 5 % 10/26/2020 12:00:00 AM EDT adhesive patch,medicate d 21 APPLY 1 PATCH TO THE SKIN AND REMOVE AFTER 12 HOURS APPLY 1 PATCH TO THE SKIN AND REMOVE AFT ER 12 HOURS SOLD: 10/26/2020 [facility] 33 gauge 10/26/2020 12:00:00 AM EDT misc 100 USE DIRECTED TO TEST BLOOD GLUCOSE 2-4 TIMES DAILY USE DIRECTED TO TEST BLOOD GLUCOSE 2-4 TIMES DAILY SOLD: 10/26/2020 [facility] Lidocaine Hydrochloride 0.05 MG/MG Transdermal Patch [ Lidoderm] Lidoderm 5 % Lidoderm 5 % 10/25/2020 12:00:00 AM EDT active Lidoderm 5 % eCW1 ([facility]) valacyclovir 1000 MG Oral Tablet valACYclovir HCl 1 GM valAC Yclovir HCl 1 GM 10/25/2020 12:00:00 AM EDT 1.0 {tablet} active valACYclovir HCl 1 GM eCW1 ([facility]) valacyclovir 1000 MG Oral Tablet valACYclovir HCl 1 GM valAC Yclovir HCl 1 GM 10/25/2020 12:00:00 AM EDT 1.0 {tablet} active valACYclovir HCl 1 GM eCW1 ([facility]) valacyclovir 1000 MG Oral Tablet valACYclovir HCl 1 GM valAC Yclovir HCl 1 GM 10/25/2020 12:00:00 AM EDT 1.0 {tablet} active valACYclovir HCl 1 GM eCW1 ([facility]) Test Strips - UNK 10/25/2020 12:00:00 AM EDT acti ve Test Strips - eCW1 ([facility]) Alcohol Pads 70 % Alcohol Pads 70 % 10/25/2020 12:00:00 AM EDT active Alcohol Pads 70 % eCW1 ([facility]) Alcohol Pads 70 % Alcohol Pads 70 % 10/25/2020 12:00:00 AM EDT active Alcohol Pads 70 % eCW1 ([facility]) Lancets - Lancets - 10/25/2020 12:00:00 AM EDT act marquez Lancets - eCW1 ([facility]) Alcohol Pads 70 % Alcohol Pads 70 % 10/25/2020 12:00:00 AM EDT active Alcohol Pads 70 % eCW1 ([facility]) Lancets - Lancets - 10/25/2020 12:00:00 AM EDT act marquez Lancets - eCW1 ([facility]) Test Strips - UNK 10/25/2020 12:00:00 AM EDT acti ve Test Strips - eCW1 ([facility]) Test Strips - UNK 10/25/2020 12:00:00 AM EDT acti ve Test Strips - eCW1 ([facility]) Lidocaine Hydrochloride 0.05 MG/MG Transdermal Patch [ Lidoderm] Lidoderm 5 % Lidoderm 5 % 10/25/2020 12:00:00 AM EDT active Lidoderm 5 % eCW1 ([facility]) Lancets - Lancets - 10/25/2020 12:00:00 AM EDT act marquez Lancets - eCW1 ([facility]) Lancets - Lancets - 10/25/2020 12:00:00 AM EDT act marquez Lancets - eCW1 ([facility]) valacyclovir 1000 MG Oral Tablet valACYclovir HCl 1 GM valAC Yclovir HCl 1 GM 10/25/2020 12:00:00 AM EDT 1.0 {tablet} active valACYclovir HCl 1 GM eCW1 ([facility]) Test Strips - UNK 10/25/2020 12:00:00 AM EDT acti ve Test Strips - eCW1 ([facility]) valacyclovir 1000 MG Oral Tablet valACYclovir HCl 1 GM valAC Yclovir HCl 1 GM 10/25/2020 12:00:00 AM EDT 1.0 {tablet} active valACYclovir HCl 1 GM eCW1 ([facility]) valacyclovir 1000 MG Oral Tablet valACYclovir HCl 1 GM valAC Yclovir HCl 1 GM 10/25/2020 12:00:00 AM EDT 1.0 {tablet} active valACYclovir HCl 1 GM eCW1 ([facility]) Lancets - Lancets - 10/25/2020 12:00:00 AM EDT act marquez Lancets - eCW1 ([facility]) Lidocaine Hydrochloride 0.05 MG/MG Transdermal Patch [ Lidoderm] Lidoderm 5 % Lidoderm 5 % 10/25/2020 12:00:00 AM EDT active Lidoderm 5 % eCW1 ([facility]) Lidocaine Hydrochloride 0.05 MG/MG Transdermal Patch [ Lidoderm] Lidoderm 5 % Lidoderm 5 % 10/25/2020 12:00:00 AM EDT active Lidoderm 5 % eCW1 ([facility]) Test Strips - UNK 10/25/2020 12:00:00 AM EDT acti ve Test Strips - eCW1 ([facility]) Alcohol Pads 70 % Alcohol Pads 70 % 10/25/2020 12:00:00 AM EDT active Alcohol Pads 70 % eCW1 ([facility]) Lancets - Lancets - 10/25/2020 12:00:00 AM EDT act marquez Lancets - eCW1 ([facility]) Lidocaine Hydrochloride 0.05 MG/MG Transdermal Patch [ Lidoderm] Lidoderm 5 % Lidoderm 5 % 10/25/2020 12:00:00 AM EDT active Lidoderm 5 % eCW1 ([facility]) Alcohol Pads 70 % Alcohol Pads 70 % 10/25/2020 12:00:00 AM EDT active Alcohol Pads 70 % eCW1 ([facility]) Alcohol Pads 70 % Alcohol Pads 70 % 10/25/2020 12:00:00 AM EDT active Alcohol Pads 70 % eCW1 ([facility]) Lidocaine Hydrochloride 0.05 MG/MG Transdermal Patch [ Lidoderm] Lidoderm 5 % Lidoderm 5 % 10/25/2020 12:00:00 AM EDT active Lidoderm 5 % eCW1 ([facility]) Test Strips - UNK 10/25/2020 12:00:00 AM EDT acti ve Test Strips - eCW1 ([facility]) Alcohol Pads 70 % Alcohol Pads 70 % 10/25/2020 12:00:00 AM EDT active Alcohol Pads 70 % eCW1 ([facility]) Lidocaine Hydrochloride 0.05 MG/MG Transdermal Patch [ Lidoderm] Lidoderm 5 % Lidoderm 5 % 10/25/2020 12:00:00 AM EDT active Lidoderm 5 % eCW1 ([facility]) Lancets - Lancets - 10/25/2020 12:00:00 AM EDT act marquez Lancets - eCW1 ([facility]) valacyclovir 1000 MG Oral Tablet valACYclovir HCl 1 GM valAC Yclovir HCl 1 GM 10/25/2020 12:00:00 AM EDT 1.0 {tablet} active valACYclovir HCl 1 GM eCW1 ([facility]) Test Strips - UNK 10/25/2020 12:00:00 AM EDT acti ve Test Strips - eCW1 ([facility]) valacyclovir 1000 MG Oral Tablet VALACYCLOVIR HCL 10/22/2020 12: 00:00 AM EDT tablet 21 TAKE ONE TABLET BY MOUTH THREE T IMES A DAY TAKE ONE TABLET BY MOUTH THREE TIMES A DAY SOLD: 10/22/2020 [facility] 5-325 mg 10/22/2020 12:00:00 AM EDT tablet 20 TAKE ONE TABLET BY MOUTH EVERY 6 HOURS NEEDED MAXIMUM DAILY DOSE = 4 TABLETS TAKE ONE TABLET BY MOUTH EVERY 6 HOURS NEEDED MAXIMUM DAILY DOSE = 4 TABLETS SOLD: 10/22/2020 [facility] 50 mg 10/21/2020 12:00:00 AM EDT tablet 21 TAKE ONE TABLET BY MOUTH THREE TIMES A DAY NEEDED FOR PAIN MAXIMUM DAILY DOSE = 3 TAKE ONE TABLET BY MOUTH THREE TIMES A DAY NEEDED FOR PAIN MAXIMUM DAILY DOSE = 3 SOLD: 10/21/2020 [facility] 600 mg 10/21/2020 12:00:00 AM EDT tablet 30 TAKE ONE TABLET BY MOUTH EVERY 8 HOURS NEEDED FOR PAIN ; TAKE WITH FOOD TAKE ONE TABLET BY MOUTH EVERY 8 HOURS NEEDED FOR PAIN ; TAKE WITH FOOD SOLD: 10/21/2020 [facility] 25 mg 10/19/2020 12:00:00 AM EDT tablet 30 TAKE ONE TABLET BY MOUTH EVERY 12 HOURS NEEDED FOR ITCHING TAKE ONE TABLET BY MOUTH EVERY 12 HOURS NEEDED FOR ITCHING SOLD: 10/21/2020 [facility] 150 mg 09/19/2020 12:00:00 AM EDT tablet 1 TAKE ONE TABLET BY MOUTH ONCE TAKE ONE TABLET BY MOUTH ONCE SOLD: 09/20/2020 [facility] Fluconazole 150 MG Oral Tablet Fluconazole 150 MG 09/18/2020 12:00: 00 AM EDT 1.0 {tablet} suspended Fluconazole 150 M G eCW1 ([facility]) Fluconazole 150 MG Oral Tablet Fluconazole 150 MG 09/18/2020 12:00: 00 AM EDT 1.0 {tablet} suspended Fluconazole 150 M G eCW1 ([facility]) Fluconazole 150 MG Oral Tablet Fluconazole 150 MG 09/18/2020 12:00: 00 AM EDT 1.0 {tablet} suspended Fluconazole 150 M G eCW1 ([facility]) Fluconazole 150 MG Oral Tablet Fluconazole 150 MG 09/18/2020 12:00: 00 AM EDT 1.0 {tablet} active Fluconazole 150 MG eCW1 ([facility]) 17 gram/dose 09/18/2020 12:00:00 AM EDT powder 510 MIX 17GRAMS(1CAPFUL) IN WATER OR JUICE AND DRINK ONCE DAILY NEEDED MIX 17GRAMS(1CAPFUL) IN WATER OR JUICE AND DRINK ONCE DAILY NEEDED SOLD: 09/19/2020 [facility] Fluconazole 150 MG Oral Tablet Fluconazole 150 MG 09/18/2020 12:00: 00 AM EDT 1.0 {tablet} suspended Fluconazole 150 M G eCW1 ([facility]) Fluconazole 150 MG Oral Tablet Fluconazole 150 MG 09/18/2020 12:00: 00 AM EDT 1.0 {tablet} suspended Fluconazole 150 M G eCW1 ([facility]) 25 mcg (1,000 unit) 09/18/2020 12:00:00 AM EDT tablet 90 TAKE ONE TABLET BY MOUTH EVERY DAY TAKE ONE TABLET BY MOUTH EVERY DAY SOLD: 09/19/2020 [facility] [facility] Fluconazole 150 MG Oral Tablet Fluconazole 150 MG 09/18/2020 12:00: 00 AM EDT 1.0 {tablet} suspended Fluconazole 150 M G eCW1 ([facility]) Fluconazole 150 MG Oral Tablet Fluconazole 150 MG 09/18/2020 12:00: 00 AM EDT 1.0 {tablet} active Fluconazole 150 MG eCW1 ([facility]) Fluconazole 150 MG Oral Tablet Fluconazole 150 MG 09/18/2020 12:00: 00 AM EDT 1.0 {tablet} suspended Fluconazole 150 M G eCW1 ([facility]) Fluconazole 150 MG Oral Tablet Fluconazole 150 MG 09/18/2020 12:00: 00 AM EDT 1.0 {tablet} active Fluconazole 150 MG eCW1 ([facility]) 250 mg 09/04/2020 12:00:00 AM EDT tablet 5 TAKE ONE TABLET BY MOUTH EVERY DAY TAKE ONE TABLET BY MOUTH EVERY DAY SOLD: 09/04/2020 [facility] 2.5-2.5 % 08/02/2020 12:00:00 AM EDT cream 120 APPLY TO DIALYSIS ACCESS 1 HR PRIOR TO TREATMENT (COVER WITH PLASTIC DRESSING) APPLY TO DIALYSIS ACCESS 1 HR PRIOR TO TREATMENT (COVER WITH PLASTIC DRESSING) SOLD: 08/03/2020 [facility] 29 gauge x 1/2" 06/15/2020 12:00:00 AM EDT needle 120 USE DIRECTED FOUR TIMES A DAY UNDER THE SKIN USE DIRECTED FOUR TIMES A DAY UNDER THE SKIN SOLD: 06/17/2020 [facility] 29 gauge x 1/2" 06/15/2020 12:00:00 AM EDT needle 120 USE DIRECTED FOUR TIMES A DAY UNDER THE SKIN USE DIRECTED FOUR TIMES A DAY UNDER THE SKIN SOLD: 10/08/2020 [facility] 29 gauge x 1/2" 06/15/2020 12:00:00 AM EDT needle 120 USE DIRECTED FOUR TIMES A DAY UNDER THE SKIN USE DIRECTED FOUR TIMES A DAY UNDER THE SKIN SOLD: 08/24/2020 [facility] Calcitriol 0.34045 MG Oral Capsule 0.25 mcg CALCITRIOL 06/09/2020 12:00:00 AM EDT capsule 120 TAKE 2 CAPSULES BY MOUTH 5 D AYS PER WEEK (THURSDAY - THURSDAY) TAKE 2 CAPSULES BY MOUTH 5 DAYS PER WEEK (THURSDAY - THURSDAY) SOLD: 06/13/2020 [facility] 300 mg 05/25/2020 12:00:00 AM EDT capsule 60 TAKE TWO CAPSULES BY MOUTH THREE TIMES A DAY TAKE TWO CAPSULES BY MOUTH THREE TIMES A DAY SOLD: [facility] 300 mg 05/25/2020 12:00:00 AM EDT capsule 60 TAKE TWO CAPSULES BY MOUTH THREE TIMES A DAY TAKE TWO CAPSULES BY MOUTH THREE TIMES A DAY SOLD: [facility] FLASH GLUCOSE SENSOR 05/25/2020 12:00:00 AM EDT kit 2 USE DIRECTED TO TEST 4 TIMES A DAY USE DIRECTED TO TEST 4 TIMES A DAY SOLD: 10/08/2020 [facility] Potassium Chloride 10 MEQ Extended Release Oral Capsule POTA SSIUM CHLORIDE 05/25/2020 12:00:00 AM EDT capsule, extended release 360 TAKE TWO CAPSULES BY MOUTH TWICE A DAY TAKE TWO CAPSULES BY MOUTH TWICE A DAY SOLD: 05/25/2020 [facility] FLASH GLUCOSE SENSOR 05/25/2020 12:00:00 AM EDT kit 2 USE DIRECTED TO TEST 4 TIMES A DAY USE DIRECTED TO TEST 4 TIMES A DAY SOLD: 05/25/2020 [facility] FLASH GLUCOSE SENSOR 05/25/2020 12:00:00 AM EDT kit 2 USE DIRECTED TO TEST 4 TIMES A DAY USE DIRECTED TO TEST 4 TIMES A DAY SOLD: 07/23/2020 [facility] gabapentin 300 MG Oral Capsule GABAPENTIN 05/25/2020 12:00:00 AM EDT capsule 180 TAKE TWO CAPSULES BY MOUTH THREE TIMES A DAY TAKE TWO CAPSULES BY MOUTH THREE TIMES A DAY SOLD: 05/25/2020 [facility] 0.8 mg 05/11/2020 12:00:00 AM EDT tablet 90 TAKE ONE TABLET BY MOUTH EVERY DAY TAKE ONE TABLET BY MOUTH EVERY DAY SOLD: 05/14/2020 [facility] 325 mg (65 mg iron) 05/11/2020 12:00:00 AM EDT tablet 180 TAKE ONE TABLET BY MOUTH TWICE A DAY TAKE ONE TABLET BY MOUTH TWICE A DAY SOLD: 05/14/2020 [facility] FLASH GLUCOSE SENSOR 05/10/2020 12:00:00 AM EDT kit 1 DIRECTED FOUR TIMES A DAY DIRECTED FOUR TIMES A DAY SOLD: 05/11/2020 [facility] 800 mg 05/09/2020 12:00:00 AM EDT tablet 90 TAKE ONE TABLET BY MOUTH THREE TIMES A DAY WITH MEALS TAKE ONE TABLET BY MOUTH THREE TIMES A DAY WITH MEALS SOLD: 05/10/2020 [facility] Calcitriol 0.31958 MG Oral Capsule 0.25 mcg CALCITRIOL 04/28/2020 12:00:00 AM EST capsule 65 TAKE TWO CAPSULE S BY MOUTH EVERY DAY FIVE DAYS PER WEEK (THURSDAY - THURSDAY) TAKE TWO CAPSULES BY MOUTH EVERY DAY FIV E DAYS PER WEEK (THURSDAY - THURSDAY) SOLD: 04/30/2020 [facility] FreeStyle Janette Sensor System - FreeStyle Janette Sensor Syste m - 04/19/2020 12:00:00 AM EST active FreeStyl e Janette Sensor System - eCW1 ([facility]) FLASH GLUCOSE SENSOR 04/19/2020 12:00:00 AM EST kit 1 USE DIRECTED FOUR TIMES A DAY USE DIRECTED FOUR TIMES A DAY SOLD: 04/19/2020 [facility] FreeStyle Janette Sensor System - FreeStyle Janette Sensor Syste m - 04/19/2020 12:00:00 AM EST active FreeStyl e Janette Sensor System - eCW1 ([facility]) 3 ML Insulin, Aspart, Human 100 UNT/ML P en Injector [NovoLog] NovoLog Flexpen 100 UNIT/ML NovoLog Flexpen 100 UNIT/ML 04/09/2020 12:00:00 AM EST active NovoLog Flexpen 100 UNIT/ML eCW1 ([facility]) 3 ML Insulin, Aspart, Human 100 UNT/ML P en Injector [NovoLog] NovoLOG FlexPen 100 UNIT/ML NovoLOG FlexPen 100 UNIT/ML 04/09/2020 12:00:00 AM EST active NovoLOG FlexPen 100 UNIT/ML eCW1 ([facility]) 3 ML Insulin, Aspart, Human 100 UNT/ML P en Injector [NovoLog] NovoLOG FlexPen 100 UNIT/ML NovoLOG FlexPen 100 UNIT/ML 04/09/2020 12:00:00 AM EST active NovoLOG FlexPen 100 UNIT/ML eCW1 ([facility]) 3 ML Insulin, Aspart, Human 100 UNT/ML P en Injector [NovoLog] NovoLog Flexpen 100 UNIT/ML NovoLog Flexpen 100 UNIT/ML 04/09/2020 12:00:00 AM EST active NovoLog Flexpen 100 UNIT/ML eCW1 ([facility]) 3 ML Insulin, Aspart, Human 100 UNT/ML P en Injector [NovoLog] NovoLog Flexpen 100 UNIT/ML NovoLog Flexpen 100 UNIT/ML 04/09/2020 12:00:00 AM EST active NovoLog Flexpen 100 UNIT/ML eCW1 ([facility]) 3 ML Insulin, Aspart, Human 100 UNT/ML P en Injector [NovoLog] NovoLOG FlexPen 100 UNIT/ML NovoLOG FlexPen 100 UNIT/ML 04/09/2020 12:00:00 AM EST active NovoLOG FlexPen 100 UNIT/ML eCW1 ([facility]) 3 ML Insulin, Aspart, Human 100 UNT/ML P en Injector [NovoLog] NovoLog Flexpen 100 UNIT/ML NovoLog Flexpen 100 UNIT/ML 04/09/2020 12:00:00 AM EST active NovoLog Flexpen 100 UNIT/ML eCW1 ([facility]) 3 ML Insulin, Aspart, Human 100 UNT/ML P en Injector [NovoLog] NovoLog Flexpen 100 UNIT/ML NovoLog Flexpen 100 UNIT/ML 04/09/2020 12:00:00 AM EST active NovoLog Flexpen 100 UNIT/ML eCW1 ([facility]) 3 ML Insulin, Aspart, Human 100 UNT/ML P en Injector [NovoLog] NovoLOG FlexPen 100 UNIT/ML NovoLOG FlexPen 100 UNIT/ML 04/09/2020 12:00:00 AM EST active NovoLOG FlexPen 100 UNIT/ML eCW1 ([facility]) 3 ML Insulin, Aspart, Human 100 UNT/ML P en Injector [NovoLog] NovoLog Flexpen 100 UNIT/ML NovoLog Flexpen 100 UNIT/ML 04/09/2020 12:00:00 AM EST active NovoLog Flexpen 100 UNIT/ML eCW1 ([facility]) 3 ML Insulin, Aspart, Human 100 UNT/ML P en Injector [NovoLog] NovoLog Flexpen 100 UNIT/ML NovoLog Flexpen 100 UNIT/ML 04/09/2020 12:00:00 AM EST active NovoLog Flexpen 100 UNIT/ML eCW1 ([facility]) 3 ML Insulin, Aspart, Human 100 UNT/ML P en Injector [NovoLog] NovoLOG FlexPen 100 UNIT/ML NovoLOG FlexPen 100 UNIT/ML 04/09/2020 12:00:00 AM EST active NovoLOG FlexPen 100 UNIT/ML eCW1 ([facility]) 3 ML Insulin, Aspart, Human 100 UNT/ML P en Injector [NovoLog] NovoLog Flexpen 100 UNIT/ML NovoLog Flexpen 100 UNIT/ML 04/09/2020 12:00:00 AM EST active NovoLog Flexpen 100 UNIT/ML eCW1 ([facility]) 3 ML Insulin, Aspart, Human 100 UNT/ML P en Injector [NovoLog] NovoLog Flexpen 100 UNIT/ML NovoLog Flexpen 100 UNIT/ML 04/09/2020 12:00:00 AM EST active NovoLog Flexpen 100 UNIT/ML eCW1 ([facility]) 3 ML Insulin, Aspart, Human 100 UNT/ML P en Injector [NovoLog] NovoLOG FlexPen 100 UNIT/ML NovoLOG FlexPen 100 UNIT/ML 04/09/2020 12:00:00 AM EST active NovoLOG FlexPen 100 UNIT/ML eCW1 ([facility]) 3 ML Insulin, Aspart, Human 100 UNT/ML P en Injector [NovoLog] NovoLog Flexpen 100 UNIT/ML NovoLog Flexpen 100 UNIT/ML 04/09/2020 12:00:00 AM EST active NovoLog Flexpen 100 UNIT/ML eCW1 ([facility]) 3 ML Insulin, Aspart, Human 100 UNT/ML P en Injector [NovoLog] NovoLog Flexpen 100 UNIT/ML NovoLog Flexpen 100 UNIT/ML 04/09/2020 12:00:00 AM EST active NovoLog Flexpen 100 UNIT/ML eCW1 ([facility]) 3 ML Insulin, Aspart, Human 100 UNT/ML P en Injector [NovoLog] NovoLOG FlexPen 100 UNIT/ML NovoLOG FlexPen 100 UNIT/ML 04/09/2020 12:00:00 AM EST active NovoLOG FlexPen 100 UNIT/ML eCW1 ([facility]) 3 ML Insulin, Aspart, Human 100 UNT/ML P en Injector [NovoLog] NovoLog Flexpen 100 UNIT/ML NovoLog Flexpen 100 UNIT/ML 04/09/2020 12:00:00 AM EST active NovoLog Flexpen 100 UNIT/ML eCW1 ([facility]) 3 ML Insulin, Aspart, Human 100 UNT/ML P en Injector [NovoLog] NovoLOG FlexPen 100 UNIT/ML NovoLOG FlexPen 100 UNIT/ML 04/09/2020 12:00:00 AM EST active NovoLOG FlexPen 100 UNIT/ML eCW1 ([facility]) 3 ML Insulin, Aspart, Human 100 UNT/ML P en Injector [NovoLog] NovoLog Flexpen 100 UNIT/ML NovoLog Flexpen 100 UNIT/ML 04/09/2020 12:00:00 AM EST active NovoLog Flexpen 100 UNIT/ML eCW1 ([facility]) 3 ML Insulin, Aspart, Human 100 UNT/ML P en Injector [NovoLog] NovoLOG FlexPen 100 UNIT/ML NovoLOG FlexPen 100 UNIT/ML 04/09/2020 12:00:00 AM EST active NovoLOG FlexPen 100 UNIT/ML eCW1 ([facility]) 3 ML Insulin, Aspart, Human 100 UNT/ML P en Injector [NovoLog] NovoLOG FlexPen 100 UNIT/ML NovoLOG FlexPen 100 UNIT/ML 04/09/2020 12:00:00 AM EST active NovoLOG FlexPen 100 UNIT/ML eCW1 ([facility]) 3 ML Insulin, Aspart, Human 100 UNT/ML P en Injector [NovoLog] NovoLog Flexpen 100 UNIT/ML NovoLog Flexpen 100 UNIT/ML 04/09/2020 12:00:00 AM EST active NovoLog Flexpen 100 UNIT/ML eCW1 ([facility]) 3 ML Insulin, Aspart, Human 100 UNT/ML P en Injector [NovoLog] NovoLOG FlexPen 100 UNIT/ML NovoLOG FlexPen 100 UNIT/ML 04/09/2020 12:00:00 AM EST active NovoLOG FlexPen 100 UNIT/ML eCW1 ([facility]) 3 ML Insulin, Aspart, Human 100 UNT/ML P en Injector [NovoLog] NovoLOG FlexPen 100 UNIT/ML NovoLOG FlexPen 100 UNIT/ML 04/09/2020 12:00:00 AM EST active NovoLOG FlexPen 100 UNIT/ML eCW1 ([facility]) 300 mg 03/17/2020 12:00:00 AM EST capsule 180 TAKE TWO CAPSULES BY MOUTH THREE TIMES A DAY TAKE TWO CAPSULES BY MOUTH THREE TIMES A DAY SOLD: 1 [facility] 300 mg 03/17/2020 12:00:00 AM EST capsule 180 TAKE TWO CAPSULES BY MOUTH THREE TIMES A DAY TAKE TWO CAPSULES BY MOUTH THREE TIMES A DAY SOLD: 1 [facility] 25 mg 03/16/2020 12:00:00 AM EST tablet 180 TAKE ONE TABLET BY MOUTH TWICE A DAY TAKE ONE TABLET BY MOUTH TWICE A DAY SOLD: 03/18/2020 [facility] Wheelchair - Wheelchair - 03/08/2020 12:00:00 AM EST active Wheelchair - eCW1 ([facility]) Wheelchair - Wheelchair - 03/08/2020 12:00:00 AM EST active Wheelchair - eCW1 ([facility]) Wheelchair - Wheelchair - 03/08/2020 12:00:00 AM EST active Wheelchair - eCW1 ([facility]) Wheelchair - Wheelchair - 03/08/2020 12:00:00 AM EST active Wheelchair - eCW1 ([facility]) Wheelchair - Wheelchair - 03/08/2020 12:00:00 AM EST active Wheelchair - eCW1 ([facility]) Wheelchair - Wheelchair - 03/08/2020 12:00:00 AM EST active Wheelchair - eCW1 ([facility]) Wheelchair - Wheelchair - 03/08/2020 12:00:00 AM EST active Wheelchair - eCW1 ([facility]) Wheelchair - Wheelchair - 03/08/2020 12:00:00 AM EST active Wheelchair - eCW1 ([facility]) Wheelchair - Wheelchair - 03/08/2020 12:00:00 AM EST active Wheelchair - eCW1 ([facility]) Wheelchair - Wheelchair - 03/08/2020 12:00:00 AM EST active Wheelchair - eCW1 ([facility]) Wheelchair - Wheelchair - 03/08/2020 12:00:00 AM EST active Wheelchair - eCW1 ([facility]) Wheelchair - Wheelchair - 03/08/2020 12:00:00 AM EST active Wheelchair - eCW1 ([facility]) Wheelchair - Wheelchair - 03/08/2020 12:00:00 AM EST active Wheelchair - eCW1 ([facility]) Wheelchair - Wheelchair - 03/08/2020 12:00:00 AM EST active Wheelchair - eCW1 ([facility]) Wheelchair - Wheelchair - 03/08/2020 12:00:00 AM EST active Wheelchair - eCW1 ([facility]) Wheelchair - Wheelchair - 03/08/2020 12:00:00 AM EST active Wheelchair - eCW1 ([facility]) Wheelchair - Wheelchair - 03/08/2020 12:00:00 AM EST active Wheelchair - eCW1 ([facility]) Wheelchair - Wheelchair - 03/08/2020 12:00:00 AM EST active Wheelchair - eCW1 ([facility]) Wheelchair - Wheelchair - 03/08/2020 12:00:00 AM EST active Wheelchair - [email or web address] ([facility]) Wheelchair - Wheelchair - 03/08/2020 12:00:00 AM EST active Wheelchair - [email or web address] ([facility]) Wheelchair - Wheelchair - 03/08/2020 12:00:00 AM EST active Wheelchair - [email or web address] ([facility]) Wheelchair - Wheelchair - 03/08/2020 12:00:00 AM EST active Wheelchair - [email or web address] ([facility]) Wheelchair - Wheelchair - 03/08/2020 12:00:00 AM EST active Wheelchair - [email or web address] ([facility]) Wheelchair - Wheelchair - 03/08/2020 12:00:00 AM EST active Wheelchair - [email or web address] ([facility]) Wheelchair - Wheelchair - 03/08/2020 12:00:00 AM EST active Wheelchair - eCW1 ([facility]) Wheelchair - Wheelchair - 03/08/2020 12:00:00 AM EST active Wheelchair - eCW1 ([facility]) Wheelchair - Wheelchair - 03/08/2020 12:00:00 AM EST active Wheelchair - eCW1 ([facility]) Wheelchair - Wheelchair - 03/08/2020 12:00:00 AM EST active Wheelchair - eCW1 ([facility]) Wheelchair - Wheelchair - 03/08/2020 12:00:00 AM EST active Wheelchair - eCW1 ([facility]) Wheelchair - Wheelchair - 03/08/2020 12:00:00 AM EST active Wheelchair - eCW1 ([facility]) 300 mg 02/02/2020 12:00:00 AM EST capsule 180 TAKE TWO CAPSULES BY MOUTH THREE TIMES A DAY TAKE TWO CAPSULES BY MOUTH THREE TIMES A DAY SOLD: 0 [facility] 100 unit/mL 01/28/2020 12:00:00 AM EST insulin pen 15 DIRECTED PER SLIDING SCALE BEFORE MEALS AND AT BEDTIME MAXIMUM DAILY DOSE = 42 UNITS DIRECTED PER SLIDING SCALE BEFORE MEALS AND AT BEDTIME MAXIMUM DAILY DOSE = 42 UNITS SOLD: 01/29/2020 [facility] 325 mg (65 mg iron) 01/24/2020 12:00:00 AM EST tablet 180 TAKE ONE TABLET BY MOUTH TWICE A DAY TAKE ONE TABLET BY MOUTH TWICE A DAY SOLD: 01/26/2020 [facility] 100 unit/mL (3 mL) 01/24/2020 12:00:00 AM EST insulin pen 30 INJECT 45 UNITS UNDER THE SKIN IN THE MORNING AND 45 UNITS UNDER THE SKIN IN THE EVENING MAXIMUM DAILY DOSE = 90 UNITS INJECT 45 UNITS UNDER THE SKIN IN THE MO RNING AND 45 UNITS UNDER THE SKIN IN THE EVENING MAXIMUM DAILY DOSE = 90 UNITS SOLD: 03/05/2020 [facility] 325 mg (65 mg iron) 01/24/2020 12:00:00 AM EST tablet 180 TAKE ONE TABLET BY MOUTH TWICE A DAY TAKE ONE TABLET BY MOUTH TWICE A DAY SOLD: 05/03/2020 [facility] Paroxetine Hydrochloride 40 MG Oral Tablet PAROXETINE HCL 01/24/2020 12:00:00 AM EST tablet 90 TAKE ONE TABLET BY MOUTH DECLAN RY MORNING TAKE ONE TABLET BY MOUTH EVERY MORNING SOLD: 01/26/2020 [facility] 100 unit/mL (3 mL) 01/24/2020 12:00:00 AM EST insulin pen 30 INJECT 45 UNITS UNDER THE SKIN IN THE MORNING AND 45 UNITS UNDER THE SKIN IN THE EVENING MAXIMUM DAILY DOSE = 90 UNITS INJECT 45 UNITS UNDER THE SKIN IN THE MO RNING AND 45 UNITS UNDER THE SKIN IN THE EVENING MAXIMUM DAILY DOSE = 90 UNITS SOLD: 01/26/2020 [facility] Nystatin 100 UNT/MG Topical Powder Nystatin 234534 UNI T/GM Nystatin 993348 UNIT/GM 01/16/2020 12:00:00 AM EST 1.0 {application} suspended Nystatin [id number] UNIT/GM eCW1 ([facility]) Nystatin 100 UNT/MG Topical Powder Nystatin 105689 UNI T/GM Nystatin 159317 UNIT/GM 01/16/2020 12:00:00 AM EST 1.0 {application} active Nystatin 127993 UNIT/GM eCW1 ([facility]) Nystatin 100 UNT/MG Topical Powder Nystatin 506604 UNI T/GM Nystatin 215819 UNIT/GM 01/16/2020 12:00:00 AM EST 1.0 {application} active Nystatin 135135 UNIT/GM eCW1 ([facility]) Nystatin 100 UNT/MG Topical Powder 100,000 unit/gram NYSTATI N 01/16/2020 12:00:00 AM EST powder 15 APPLY TWO TIMES A DAY EXT ERNALLY APPLY TWO TIMES A DAY EXTERNALLY SOLD: 01/17/2020 [facility] Nystatin 100 UNT/MG Topical Powder Nystatin 042149 UNI T/GM Nystatin 251509 UNIT/GM 01/16/2020 12:00:00 AM EST 1.0 {application} active Nystatin 124437 UNIT/GM eCW1 ([facility]) Nystatin 100 UNT/MG Topical Powder Nystatin 952383 UNI T/GM Nystatin 868940 UNIT/GM 01/16/2020 12:00:00 AM EST 1.0 {application} suspended Nystatin 770992 UNIT/GM eCW1 ([facility]) Nystatin 100 UNT/MG Topical Powder Nystatin 552961 UNI T/GM Nystatin 038359 UNIT/GM 01/16/2020 12:00:00 AM EST 1.0 {application} active Nystatin 196074 UNIT/GM eCW1 ([facility]) Nystatin 100 UNT/MG Topical Powder Nystatin 047855 UNI T/GM Nystatin 875078 UNIT/GM 01/16/2020 12:00:00 AM EST 1.0 {application} active Nystatin 914580 UNIT/GM eCW1 ([facility]) Nystatin 100 UNT/MG Topical Powder Nystatin 823493 UNI T/GM Nystatin 238861 UNIT/GM 01/16/2020 12:00:00 AM EST 1.0 {application} suspended Nystatin 889849 UNIT/GM eCW1 ([facility]) Nystatin 100 UNT/MG Topical Powder Nystatin 454747 UNI T/GM Nystatin 094792 UNIT/GM 01/16/2020 12:00:00 AM EST 1.0 {application} suspended Nystatin 435215 UNIT/GM eCW1 ([facility]) Nystatin 100 UNT/MG Topical Powder Nystatin 171816 UNI T/GM Nystatin 362127 UNIT/GM 01/16/2020 12:00:00 AM EST 1.0 {application} active Nystatin 726680 UNIT/GM eCW1 ([facility]) Nystatin 100 UNT/MG Topical Powder Nystatin 848225 UNI T/GM Nystatin 325088 UNIT/GM 01/16/2020 12:00:00 AM EST 1.0 {application} active Nystatin 829441 UNIT/GM eCW1 ([facility]) Nystatin 100 UNT/MG Topical Powder Nystatin 632803 UNI T/GM Nystatin 553972 UNIT/GM 01/16/2020 12:00:00 AM EST 1.0 {application} suspended Nystatin 779296 UNIT/GM eCW1 ([facility]) Nystatin 100 UNT/MG Topical Powder Nystatin 294618 UNI T/GM Nystatin 009082 UNIT/GM 01/16/2020 12:00:00 AM EST 1.0 {application} active Nystatin 335634 UNIT/GM eCW1 ([facility]) Nystatin 100 UNT/MG Topical Powder Nystatin 530291 UNI T/GM Nystatin 550532 UNIT/GM 01/16/2020 12:00:00 AM EST 1.0 {application} active Nystatin 773151 UNIT/GM eCW1 ([facility]) Nystatin 100 UNT/MG Topical Powder Nystatin 946467 UNI T/GM Nystatin 692271 UNIT/GM 01/16/2020 12:00:00 AM EST 1.0 {application} suspended Nystatin 647458 UNIT/GM eCW1 ([facility]) Nystatin 100 UNT/MG Topical Powder Nystatin 776103 UNI T/GM Nystatin 196285 UNIT/GM 01/16/2020 12:00:00 AM EST 1.0 {application} active Nystatin 247982 UNIT/GM eCW1 ([facility]) Nystatin 100 UNT/MG Topical Powder Nystatin 134625 UNI T/GM Nystatin 481220 UNIT/GM 01/16/2020 12:00:00 AM EST 1.0 {application} suspended Nystatin 280322 UNIT/GM eCW1 ([facility]) Nystatin 100 UNT/MG Topical Powder Nystatin 160488 UNI T/GM Nystatin 446641 UNIT/GM 01/16/2020 12:00:00 AM EST 1.0 {application} active Nystatin 890070 UNIT/GM eCW1 ([facility]) Nystatin 100 UNT/MG Topical Powder Nystatin 173056 UNI T/GM Nystatin 995384 UNIT/GM 01/16/2020 12:00:00 AM EST 1.0 {application} suspended Nystatin 746592 UNIT/GM eCW1 ([facility]) Nystatin 100 UNT/MG Topical Powder Nystatin 424440 UNI T/GM Nystatin 504655 UNIT/GM 01/16/2020 12:00:00 AM EST 1.0 {application} active Nystatin 005594 UNIT/GM eCW1 ([facility]) Nystatin 100 UNT/MG Topical Powder Nystatin 887994 UNI T/GM Nystatin 343156 UNIT/GM 01/16/2020 12:00:00 AM EST 1.0 {application} active Nystatin 916535 UNIT/GM eCW1 ([facility]) Nystatin 100 UNT/MG Topical Powder Nystatin 955053 UNI T/GM Nystatin 440374 UNIT/GM 01/16/2020 12:00:00 AM EST 1.0 {application} suspended Nystatin 545720 UNIT/GM eCW1 ([facility]) Nystatin 100 UNT/MG Topical Powder Nystatin 035773 UNI T/GM Nystatin 768273 UNIT/GM 01/16/2020 12:00:00 AM EST 1.0 {application} active Nystatin 431268 UNIT/GM eCW1 ([facility]) Nystatin 100 UNT/MG Topical Powder Nystatin 854995 UNI T/GM Nystatin 687591 UNIT/GM 01/16/2020 12:00:00 AM EST 1.0 {application} active Nystatin 502681 UNIT/GM eCW1 ([facility]) Nystatin 100 UNT/MG Topical Powder Nystatin 037604 UNI T/GM Nystatin 112771 UNIT/GM 01/16/2020 12:00:00 AM EST 1.0 {application} suspended Nystatin 826902 UNIT/GM eCW1 ([facility]) Nystatin 100 UNT/MG Topical Powder Nystatin 809705 UNI T/GM Nystatin 042070 UNIT/GM 01/16/2020 12:00:00 AM EST 1.0 {application} active Nystatin 075276 UNIT/GM eCW1 ([facility]) Nystatin 100 UNT/MG Topical Powder Nystatin 197033 UNI T/GM Nystatin 266744 UNIT/GM 01/16/2020 12:00:00 AM EST 1.0 {application} active Nystatin 284856 UNIT/GM eCW1 ([facility]) Nystatin 100 UNT/MG Topical Powder Nystatin 733790 UNI T/GM Nystatin 618424 UNIT/GM 01/16/2020 12:00:00 AM EST 1.0 {application} active Nystatin 892267 UNIT/GM eCW1 ([facility]) Nystatin 100 UNT/MG Topical Powder Nystatin 215654 UNI T/GM Nystatin 676819 UNIT/GM 01/16/2020 12:00:00 AM EST 1.0 {application} active Nystatin 816237 UNIT/GM eCW1 ([facility]) Nystatin 100 UNT/MG Topical Powder Nystatin 216282 UNI T/GM Nystatin 703710 UNIT/GM 01/16/2020 12:00:00 AM EST 1.0 {application} suspended Nystatin 637606 UNIT/GM eCW1 ([facility]) Nystatin 100 UNT/MG Topical Powder Nystatin 111082 UNI T/GM Nystatin 919223 UNIT/GM 01/16/2020 12:00:00 AM EST 1.0 {application} active Nystatin 296250 UNIT/GM eCW1 ([facility]) Nystatin 100 UNT/MG Topical Powder Nystatin 301970 UNI T/GM Nystatin 866408 UNIT/GM 01/16/2020 12:00:00 AM EST 1.0 {application} suspended Nystatin 667335 UNIT/GM eCW1 ([facility]) Nystatin 100 UNT/MG Topical Powder Nystatin 653727 UNI T/GM Nystatin 274126 UNIT/GM 01/16/2020 12:00:00 AM EST 1.0 {application} active Nystatin 134798 UNIT/GM eCW1 ([facility]) Nystatin 100 UNT/MG Topical Powder Nystatin 733489 UNI T/GM Nystatin 855326 UNIT/GM 01/16/2020 12:00:00 AM EST 1.0 {application} active Nystatin 870374 UNIT/GM eCW1 ([facility]) Nystatin 100 UNT/MG Topical Powder Nystatin 207228 UNI T/GM Nystatin 435542 UNIT/GM 01/16/2020 12:00:00 AM EST 1.0 {application} active Nystatin 251419 UNIT/GM eCW1 ([facility]) Nystatin 100 UNT/MG Topical Powder Nystatin 153981 UNI T/GM Nystatin 837173 UNIT/GM 01/16/2020 12:00:00 AM EST 1.0 {application} active Nystatin 969848 UNIT/GM eCW1 ([facility]) Nystatin 100 UNT/MG Topical Powder Nystatin 230877 UNI T/GM Nystatin 181165 UNIT/GM 01/16/2020 12:00:00 AM EST 1.0 {application} active Nystatin 938840 UNIT/GM eCW1 ([facility]) Nystatin 100 UNT/MG Topical Powder Nystatin 018682 UNI T/GM Nystatin 262006 UNIT/GM 01/16/2020 12:00:00 AM EST 1.0 {application} active Nystatin 079901 UNIT/GM eCW1 ([facility]) 29 gauge x 1/2" 01/11/2020 12:00:00 AM EST needle 360 USE 1 FOUR TIMES A DAY USE 1 FOUR TIMES A DAY SOLD: 01/13/2020 [facility] FreeStyle Janette 14 Day [place] - FreeStyle Janette 14 Day Reade r - 01/10/2020 12:00:00 AM EST active FreeStyl e Janette 14 Day [place] - eCW1 ([facility]) FreeStyle Janette 14 Day [place] - FreeStyle Janette 14 Day Reade r - 01/10/2020 12:00:00 AM EST active FreeStyl e [place] 14 Day [place] - eCW1 ([facility]) FreeStyle Janette 14 Day [place] - FreeStyle Janette 14 Day Reade r - 01/10/2020 12:00:00 AM EST active FreeStyl e [place] 14 Day [place] - eCW1 ([facility]) FreeStyle Janette 14 Day [place] - FreeStyle Janette 14 Day Reade r - 01/10/2020 12:00:00 AM EST active FreeStyl e [place] 14 Day [place] - eCW1 ([facility]) FreeStyle Janette 14 Day [place] - FreeStyle Janette 14 Day Reade 01/10/2020 12:00:00 AM EST active FreeStyl e Janette 14 Day [place] - eCW1 ([facility]) FreeStyle Janette 14 Day [place] - FreeStyle Janette 14 Day Reade r 01/10/2020 12:00:00 AM EST active FreeStyl e [place] 14 Day [place] - eCW1 ([facility]) FreeStyle Janette 14 Day [place] - FreeStyle Janette 14 Day Reade 01/10/2020 12:00:00 AM EST active FreeStyl e [place]ette 14 Day [place] - eCW1 ([facility]) FreeStyle Janette 14 Day [place] - FreeStyle Janette 14 Day Reade 01/10/2020 12:00:00 AM EST active FreeStyl e [place] 14 Day [place] - eCW1 ([facility]) FreeStyle Janette 14 Day [place] - FreeStyle Janette 14 Day Reade 01/10/2020 12:00:00 AM EST active FreeStyl e [place] 14 Day [place] - eCW1 ([facility]) FreeStyle Janette 14 Day [place] - FreeStyle Janette 14 Day Reade 01/10/2020 12:00:00 AM EST active FreeStyl e [place] 14 Day [place] - eCW1 ([facility]) FreeStyle Janette 14 Day [place] - FreeStyle Janette 14 Day Reade 01/10/2020 12:00:00 AM EST active FreeStyl e [place] 14 Day [place] - eCW1 ([facility]) FreeStyle Janette 14 Day [place] - FreeStyle Janette 14 Day Reade 01/10/2020 12:00:00 AM EST active FreeStyl e [place] 14 Day [place] - eCW1 ([facility]) FreeStyle Janette 14 Day [place] - FreeStyle Janette 14 Day Reade 01/10/2020 12:00:00 AM EST active FreeStyl e [place] 14 Day [place] - eCW1 ([facility]) FreeStyle Janette 14 Day [place] - FreeStyle Janette 14 Day Reade 01/10/2020 12:00:00 AM EST active FreeStyl e [place] 14 Day [place] - eCW1 ([facility]) FreeStyle Janette 14 Day [place] - FreeStyle Janette 14 Day Reade 01/10/2020 12:00:00 AM EST active FreeStyl e [place] 14 Day [place] - eCW1 ([facility]) FreeStyle Janette 14 Day [place] - FreeStyle Janette 14 Day Reade 01/10/2020 12:00:00 AM EST active FreeStyl e [place] 14 Day [place] - eCW1 ([facility]) FreeStyle Janette 14 Day [place] - FreeStyle Janette 14 Day Reade 01/10/2020 12:00:00 AM EST active FreeStyl e [place] 14 Day [place] - eCW1 ([facility]) FreeStyle Janette 14 Day [place] - FreeStyle Janette 14 Day Reade 01/10/2020 12:00:00 AM EST active FreeStyl e [place] 14 Day [place] - eCW1 ([facility]) FreeStyle Janette 14 Day [place] - FreeStyle Janette 14 Day Reade 01/10/2020 12:00:00 AM EST active FreeStyl e [place] 14 Day [place] - eCW1 ([facility]) FreeStyle Janette 14 Day [place] - FreeStyle Janette 14 Day Reade 01/10/2020 12:00:00 AM EST active FreeStyl e [place] 14 Day [place] - eCW1 ([facility]) FreeStyle [facility]ette 14 Day [place] - FreeStyle Janette 14 Day Reade 01/10/2020 12:00:00 AM EST active FreeStyl e [place] 14 Day [place] - eCW1 ([facility]) FreeStyle Janette 14 Day [place] - FreeStyle Janette 14 Day Reade 01/10/2020 12:00:00 AM EST active FreeStyl e [place] 14 Day [place] - eCW1 ([facility]) FreeStyle Janette 14 Day [place] - FreeStyle Janette 14 Day Reade 01/10/2020 12:00:00 AM EST active FreeStyl e [place] 14 Day [place] - eCW1 ([facility]) FreeStyle Janette 14 Day [place] - FreeStyle [place] 14 Day Reade 01/10/2020 12:00:00 AM EST active FreeStyl e [place] 14 Day [place] - eCW1 ([facility]) FreeStyle Janette 14 Day [place] - FreeStyle Janette 14 Day Reade 01/10/2020 12:00:00 AM EST active FreeStyl e [place] 14 Day [place] - eCW1 ([facility]) FreeStyle Janette 14 Day [place] - FreeStyle Janette 14 Day Reade 01/10/2020 12:00:00 AM EST active FreeStyl e [place] 14 Day [place] - eCW1 ([facility]) FreeStyle Janette 14 Day [place] - FreeStyle Janette 14 Day Reade 01/10/2020 12:00:00 AM EST active FreeStyl e [place] 14 Day [place] - eCW1 ([facility]) FreeStyle Janette 14 Day [place] - FreeStyle Janette 14 Day Reade 01/10/2020 12:00:00 AM EST active FreeStyl e [place] 14 Day [place] - eCW1 ([facility]) FreeStyle Janette 14 Day [place] - FreeStyle Janette 14 Day Reade 01/10/2020 12:00:00 AM EST active FreeStyl e [place] 14 Day [place] - eCW1 ([facility]) FreeStyle Janette 14 Day [place] - FreeStyle Janette 14 Day Reade 01/10/2020 12:00:00 AM EST active FreeStyl e [place] 14 Day [place] - eCW1 ([facility]) FreeStyle Janette 14 Day [place] - FreeStyle Janette 14 Day Reade 01/10/2020 12:00:00 AM EST active FreeStyl e [place] 14 Day [place] - eCW1 ([facility]) FreeStyle Janette 14 Day [place] - FreeStyle Janette 14 Day Reade 01/10/2020 12:00:00 AM EST active FreeStyl e [place] 14 Day [place] - eCW1 ([facility]) FreeStyle Janette 14 Day [place] - FreeStyle Janette 14 Day Reade 01/10/2020 12:00:00 AM EST active FreeStyl e [place] 14 Day [place] - eCW1 ([facility]) FreeStyle Janette 14 Day [place] - FreeStyle Janette 14 Day Reade 01/10/2020 12:00:00 AM EST active FreeStyl e [place] 14 Day [place] - eCW1 ([facility]) FreeStyle Janette 14 Day [place] - FreeStyle Janette 14 Day Reade 01/10/2020 12:00:00 AM EST active FreeStyl e [place] 14 Day [place] - eCW1 ([facility]) FreeStyle Janette 14 Day [place] - FreeStyle Janette 14 Day Reade 01/10/2020 12:00:00 AM EST active FreeStyl e [place] 14 Day [place] - eCW1 ([facility]) FreeStyle Janette 14 Day [place] - FreeStyle Janette 14 Day Reade 01/10/2020 12:00:00 AM EST active FreeStyl e [place] 14 Day [place] - eCW1 ([facility]) FreeStyle Janette 14 Day [place] - FreeStyle Janette 14 Day Reade 01/10/2020 12:00:00 AM EST active FreeStyl e [place] 14 Day [place] - eCW1 ([facility]) FreeStyle Janette 14 Day [place] - FreeStyle Janette 14 Day Reade 01/10/2020 12:00:00 AM EST active FreeStyl e [place] 14 Day [place] - eCW1 ([facility]) FreeStyle [place]ette 14 Day [place] - FreeStyle Janette 14 Day Reade 01/10/2020 12:00:00 AM EST active FreeStyl e [place] 14 Day [place] - eCW1 ([facility]) FreeStyle [place]ette 14 Day [place] - FreeStyle Janette 14 Day Reade 01/10/2020 12:00:00 AM EST active FreeStyl e [place] 14 Day [place] - eCW1 ([facility]) 100 mg 01/03/2020 12:00:00 AM EST capsule 14 TAKE ONE CAPSULE BY MOUTH EVERY 12 HOURS TAKE ONE CAPSULE BY MOUTH EVERY 12 HOURS SOLD: 01/03/2020 [facility] Nystatin 100 UNT/MG Topical Powder 100,000 unit/gram NYSTATI N 01/03/2020 12:00:00 AM EST powder 15 APPLY TO AFFECTED AREA(S) TWO TIMES A DAY APPLY TO AFFECTED AREA(S) TWO TIMES A DAY SOLD: 01/03/2020 [facility] 250 mg 01/03/2020 12:00:00 AM EST tablet 7 TAKE ONE TABLET BY MOUTH EVERY DAY TAKE ONE TABLET BY MOUTH EVERY DAY SOLD: 01/03/2020 [facility] 100 mg 12/31/2019 12:00:00 AM EST tablet 180 TAKE TWO TABLETS BY MOUTH EVERY DAY TAKE TWO TABLETS BY MOUTH EVERY DAY SOLD: 01/01/2020 [facility] 100 mg 12/24/2019 12:00:00 AM EDT tablet 14 TAKE 1 TABLET BY MOUTH EVERY 12 HOURS FOR 7 DAYS TAKE 1 TABLET BY MOUTH EVERY 12 HOURS FOR 7 DAYS SOLD: 12/24/2019 [facility] BLOOD SUGAR DIAGNOSTIC 12/19/2019 12:00:00 AM EDT strip 450 TEST 5 TIMES A DAY TEST 5 TIMES A DAY SOLD: 12/19/2019 [facility] 25 mg 12/09/2019 12:00:00 AM EDT tablet 30 TAKE ONE TABLET BY MOUTH EVERY 12 HOURS NEEDED FOR ITCHING TAKE ONE TABLET BY MOUTH EVERY 12 HOURS NEEDED FOR ITCHING SOLD: 08/24/2020 [facility] 25 mg 12/09/2019 12:00:00 AM EDT tablet 30 TAKE ONE TABLET BY MOUTH EVERY 12 HOURS NEEDED FOR ITCHING TAKE ONE TABLET BY MOUTH EVERY 12 HOURS NEEDED FOR ITCHING SOLD: 12/13/2019 [facility] 3 ML Insulin Glargine 100 UNT/ML Pen Inj yong [Lantus] LANTUS SOLOSTAR 100 UNIT/ML SOPN LANTUS SOLOSTAR 100 UNIT/ML SOPN 12/06/2019 12:00:00 AM EDT active INJECT 40 UNITS UNDER THE SKIN IN THE MORNING AND 30 UNITS IN THE EVENING [facility] 0.8 mg 12/02/2019 12:00:00 AM EDT tablet 90 TAKE ONE TABLET BY MOUTH EVERY DAY TAKE ONE TABLET BY MOUTH EVERY DAY SOLD: 01/01/2020 [facility] 0.8 mg 12/02/2019 12:00:00 AM EDT tablet 90 TAKE ONE TABLET BY MOUTH EVERY DAY TAKE ONE TABLET BY MOUTH EVERY DAY SOLD: 12/03/2019 [facility] 10 mEq 11/12/2019 12:00:00 AM EDT capsule, extended relea se 360 TAKE TWO CAPSULES BY MOUTH TWICE A DAY TAKE TWO CAPSULES BY MOUTH TWICE A DAY SOLD: 11/14/2019 [facility] Potassium Chloride 10 MEQ Extended Release Oral Capsule POTA SSIUM CHLORIDE 11/12/2019 12:00:00 AM EDT capsule, extended release 360 TAKE TWO CAPSULES BY MOUTH TWICE A DAY TAKE TWO CAPSULES BY MOUTH TWICE A DAY SOLD: 01/24/2020 [facility] 20 mg 11/04/2019 12:00:00 AM EDT tablet 540 TAKE 3 TABLETS BY MOUTH IN THE MORNING AND 3 TABLETS IN THE EVENING TAKE 3 TABLETS BY MOUTH IN THE MORNING A ND 3 TABLETS IN THE EVENING SOLD: 11/06/2019 [facility] 20 mg 11/04/2019 12:00:00 AM EDT tablet 540 TAKE 3 TABLETS BY MOUTH IN THE MORNING AND 3 TABLETS IN THE EVENING TAKE 3 TABLETS BY MOUTH IN THE MORNING A ND 3 TABLETS IN THE EVENING SOLD: 03/18/2020 [facility] 25 mg 10/05/2019 12:00:00 AM EDT tablet 180 TAKE ONE TABLET BY MOUTH TWICE A DAY TAKE ONE TABLET BY MOUTH TWICE A DAY SOLD: 01/13/2020 [facility] 0.25 mcg 10/05/2019 12:00:00 AM EDT capsule 120 TAKE TWO CAPSULES BY MOUTH 5 DAYS PER WEEK - Thu TAKE TWO CAPSULES BY MOUTH 5 DAYS PER WE - Thu SOLD: 02/01/2020 [facility] 300 mg 09/17/2019 12:00:00 AM EDT capsule 180 TAKE TWO CAPSULES BY MOUTH THREE TIMES A DAY TAKE TWO CAPSULES BY MOUTH THREE TIMES A DAY SOLD: 0 [facility] 300 mg 09/17/2019 12:00:00 AM EDT capsule 180 TAKE TWO CAPSULES BY MOUTH THREE TIMES A DAY TAKE TWO CAPSULES BY MOUTH THREE TIMES A DAY SOLD: 0 [facility] 100 unit/mL 08/04/2019 12:00:00 AM EDT insulin pen 15 USE PER SLIDING SCALE BEFORE MEALS AND AT BEDTIME, MAXIMUM DAILY DOSE = 42 UNITS USE PER SLIDING SCALE BEFORE MEALS AND AT BEDTIME, MAXIMUM DAILY DOSE = 42 UNITS SOLD: 12/06/2019 [facility] 100 unit/mL (3 mL) 08/04/2019 12:00:00 AM EDT insulin pen 30 INJECT 40 UNITS UNDER THE SKIN IN THE MORNING AND 30 UNITS IN THE EVENING INJECT 40 UNITS UNDER THE SKIN IN THE MORNING AND 30 UNITS IN THE EVENING SOLD: 12/06/2019 [facility] Paroxetine Hydrochloride 40 MG Oral Tablet PAROXETINE HCL 08/03/2019 12:00:00 AM EDT tablet 90 TAKE ONE TABLET BY MOUTH DECLAN RY DAY IN THE MORNING TAKE ONE TABLET BY MOUTH EVERY DAY IN THE MORNING SOLD: 10/20/2019 [facility] carvedilol 12.5 MG Oral Tablet CARVEDILOL 08/03/2019 12:00:00 AM EDT tablet 180 TAKE ONE TABLET BY MOUTH TWICE A DAY TAKE ONE TABLET BY MOUT H TWICE A DAY SOLD: 01/24/2020 [facility] 325 mg (65 mg iron) 08/03/2019 12:00:00 AM EDT tablet 180 TAKE ONE TABLET BY MOUTH TWICE A DAY TAKE ONE TABLET BY MOUTH TWICE A DAY SOLD: 10/20/2019 [facility] carvedilol 12.5 MG Oral Tablet CARVEDILOL 08/03/2019 12:00:00 AM EDT tablet 180 TAKE ONE TABLET BY MOUTH TWICE A DAY TAKE ONE TABLET BY MOUT H TWICE A DAY SOLD: 10/28/2019 [facility] 29 gauge x 1/2" 06/15/2019 12:00:00 AM EDT needle 120 USE TO INJECT INSULIN UNDER THE SKIN FOUR TIMES A DAY USE TO INJECT INSULIN UNDER THE SKIN FOU R TIMES A DAY SOLD: 11/18/2019 [facility] atorvastatin 40 MG Oral Tablet ATORVASTATIN CALCIUM 05/17/2019 1 2:00:00 AM EDT tablet 90 TAKE ONE TABLET BY MOUTH AT BEDT DERRICK TAKE ONE TABLET BY MOUTH AT BEDTIME SOLD: 10/20/2019 [facility] Insulin, Aspart, Human 100 UNT/ML Inject able Solution insulin aspart (NOVOLOG) 100 UNIT/ML injection insulin aspart (NOVOLOG) 100 UNIT/ML injection 018 12:00:00 AM EST aborted NOVOLOG SOLN [facility] Spironolactone 25 MG Oral Tablet spironolactone (ALDAC TONE) 25 MG tablet spironolactone (ALDACTONE) 25 MG tablet 06/13/2016 12:00:00 AM EDT 25 mg Oral aborted Take 1 tablet (25 mg tota l) by mouth daily [facility] atorvastatin 40 MG Oral Tablet atorvastatin (LIPITOR) 40 MG tablet atorvastatin (LIPITOR) 40 MG tablet 03/24/2016 12:00:00 AM EST 40 mg Oral aborted Take 40 mg by mouth [facility] PARoxetine (PAXIL) 40 MG tablet [address]-4 10/17/2014 12:00:00 AM EDT aborted [facility]INE HCL [facility]ous [facility] 325 MG Oral Tablet ferrous sulfate 325 (65 FE) MG tablet ferrous sulfate 325 (65 FE) MG tablet 10/17/2014 12:00:00 AM EDT 325 mg Or al aborted Take 325 mg by mouth [facility] gabapentin 300 MG Oral Capsule gabapentin (NEURONTIN) 300 MG capsule gabapentin (NEURONTIN) 300 MG capsule 10/17/2014 12:00:00 AM EDT 300 mg Oral aborted Take 300 mg by mouth [facility] TORSEMIDE PO 10/17/2014 12:00:00 AM EDT abort ed [facility] 12.5 MG Oral Tablet carvedilol (COREG) 12.5 MG tablet carvedilol (COREG) 12.5 MG tablet 10/17/2014 12:00:00 AM EDT 12.5 mg Oral aborted Take 12.5 mg by mouth [facility] Cyclobenzaprine hydrochloride 10 MG Oral Tablet cyclobenzaprine (FLEXERIL) 10 MG tablet cyclobenzaprine (FLEXERIL) 10 MG tablet 10/17/2014 12:00:00 AM E DT 10 mg Oral aborted Take 10 mg by mouth [facility] Insulin Glargine 100 UNT/ML Injectable S olution insulin glargine (INSULIN GLARGINE) 100 UNIT/ML injection insulin glargine (INSULIN GLARGINE) 100 UNIT/ML injection 70 U Subcutaneous aborted Inject 70 Units under the skin daily morning [facility] Ascorbic Acid 60 MG / Calcium Pantothena te 10 MG / D-BIOTIN 0.3 MG / Folic Acid 0.8 MG / Niacinamide 20 MG / pyridoxine 10 MG / Riboflavin 1.7 MG / Thiamine 1.5 MG / Vitamin B 12 0.006 MG Oral Tablet [Prashant-Nicolas] b complex-vitamin c-folic acid (PRASHANT-NICOLAS) TABS b complex-vitamin c-folic acid (PRASHANT-NICOLAS) TABS 1 {tbl} Oral aborted Take 1 tablet by mouth d aily [facility] Linagliptin 5 MG Oral Tablet Linagliptin (TRADJENTA) 5 MG TABS Linagliptin (TRADJENTA) 5 MG TABS 5 mg Oral aborted Ta ke 5 mg by mouth daily [facility] Minocycline 100 MG Oral Tablet Minocycline HCl 100 MG Minocyclin e HCl 100 MG 1.0 {tablet} active Minocycline HCl 100 MG eCW1 ([facility]) Amlodipine 5 MG Oral Tablet amLODIPine (NORVASC) 5 MG tablet amLODIPine (NORVASC) 5 MG tablet 5 mg Oral aborted Ta ke 5 mg by mouth daily [facility] Insulin Glargine 100 UNT/ML Injectable S olution insulin glargine (INSULIN GLARGINE) 100 UNIT/ML injection insulin glargine (INSULIN GLARGINE) 100 UNIT/ML injection 60 U Subcutaneous aborted Inject 60 Units under the skin nightly [facility] 24 HR Isosorbide Mononitrate 30 MG Exten ded Release Oral Tablet isosorbide mononitrate (IMDUR) 30 MG 24 hr tablet isosorbide mononitrate (IMDUR) 30 MG 24 hr tablet 30 mg Oral aborted Take 30 mg by mouth daily [facility] Calcitriol 0.16561 MG Oral Capsule calcitriol (ROCALTR OL) 0.25 MCG capsule calcitriol (ROCALTROL) 0.25 MCG capsule 0.5 ug Oral aborted Take 0.5 mcg by mouth daily [facility] Minocycline 100 MG Oral Tablet Minocycline HCl 100 MG Minocyclin e HCl 100 MG 1.0 {tablet} active Minocycline HCl 100 MG eCW1 ([facility]) Aspirin 81 MG Oral Tablet Aspirin Buf,CsLyzf-FmYuwz-Ky O, 81 MG TABS Aspirin Buf,WuDkzw-RcRfca-AbD, 81 MG TABS 81 mg Oral abor crys Take 81 mg by mouth [facility] Insurance Providers Payer name Policy type / Coverage type Policy ID Covered constitution party ID Covered constitution party's relationship to lipscomb Policy Lipscomb Plan Information AETNA [id number] SP [id number] [facility] [id number] SP [id number] [facility] [id number] SP [id number] [facility] [id number] SP [id number] [facility] [id number] SP [id number] [facility] [id number] SP [id number] [facility] [id number] SP [id number] [facility] [id number] SP [id number] MEDICARE A [id number] Self [id number] MEDICARE A [id number] Self [id number] A MEDICARE [id number] SP [id number] A MEDICARE A [id number] Self [id number] MEDICAID M [id number] Self [id number] OTHER B TRANSPLANT Self TRANSPLAN T MEDICAID [id number] Gala [id number] [facility] MEDICARE COMPLETE G [id number] Self [id number] [facility] MEDICARE [id number] Gala [id number] [facility] MEDICARE [id number] xxxxxxxxx [id number] HUMANA MEDICARE [id number] Gala [id number] HUMANA MEDICARE [id number] MEDICAID S [id number] S [id number] EMEDNY [id number] SP [id number] [facility] [id number] SP [id number] MEDICARE [id number] SP [id number] MEDICARE COMPLETE [id number] SP [id number] MEDICAID [id number] SP [id number] MEDICARE COMPLETE [id number] SP [id number] MEDICARE COMPLETE [id number] SP [id number] ANS-Medicare Part B [id number] ANSI-Medicare Part B [id number] ANSI-Medicaid [id number] ANSI-Medicare Part B [id number] ANSI-Medicare Part B [id number] ANSI-Medicaid [id number] ANSI-Medicare Part B [id number] ANSI-Medicare Part B [id number] ANSI-Medicaid [id number] ANSI-Medicaid [id number] ANSI-Medicare Part B [id number] ANSI-Medicare Part B [id number] [facility]-Medicaid [id number] ANSI-Medicare Part B [id number] ANSI-Medicare Part B [id number] ANSI-Medicaid [id number] ANSI-Medicare Part B [id number] ANSI-Medicare Part B [id number] ANSI-Medicare Part B [id number] ANSI-Medicare Part B [id number] ANS-Medicaid [id number] ANSI-Medicare Part B [id number] ANSI-Medicare Part B [id number] ANSI-Medicaid [id number] ANSI-Medicaid [id number] ANSI-Medicare Part B [id number] ANSI-Medicare Part B [id number] ANSI-Medicare Part B [id number] ANSI-Medicare Part B [id number] ANSI-Medicaid [id number] ANSI-Medicare Part B [id number] ANSI-Medicaid [id number] ANSI-Medicare Part B [id number] ANSI-Medicaid [id number] ANSI-Medicare Part B [id number] ANSI-Medicare Part B [id number] ANSI-Medicaid [id number] ANSI-Medicare Part B [id number] ANSI-Medicare Part B [id number] ANSI-Medicare Part B [id number] ANSI-Medicare Part B [id number] ANSI-Medicaid [id number] ANSI-Medicare Part B [id number] ANSI-Medicaid [id number] ANSI-Medicare Part B [id number] ANSI-Medicaid [id number] ANSI-Medicare Part B [id number] ANSI-Medicare Part B [id number] ANSI-Medicare Part B [id number] ANSI-Medicare Part B [id number] ANSI-Medicaid [id number] ANSI-Medicaid [id number] ANSI-Medicare Part B [id number] ANSI-Medicare Part B [id number] ANSI-Medicare Part B [id number] ANSI-Medicare Part B [id number] ANSI-Medicaid [id number] ANSI-Medicare Part B [id number] ANSI-Medicare Part B [id number] ANSI-Medicaid [id number] ANSI-Medicare Part B [id number] ANSI-Medicaid [id number] ANSI-Medicare Part B [id number] ANSI-Medicare Part B [id number] ANSI-Medicare Part B [id number] ANSI-Medicaid [id number] ANSI-Medicaid [id number] ANSI-Medicare Part B [id number] ANSI-Medicare Part B [id number] ANSI-Medicare Part B [id number] ANSI-Medicaid [id number] ANSI-Medicare Part B [id number] MEDICARE [id number] Gala [id number] A SELF PAY UNAVAILABLE SP UNAVAILA BLE MEDICARE C [id number] S [id number] A MEDICAID UNAVAILABLE UNAVAILA BLE MEDICAID W [id number] S [id number] MEDICARE M [id number] S [id number] A MEDICARE M [id number] S [id number] A MEDICARE M UNAVAILABLE S UNAVAILA BLE MEDICARE [id number] SP [id number] A [facility] [id number] SP [id number] [facility] [id number] SP [id number] SELF PAY UNAVAILABLE SP UNAVAILA BLE AETNA [id number] SP [id number] HUMANA GOLD [id number] SP [id number] MEDICARE [id number] SP [id number] A HUMANA GOLD [id number] SP [id number] [id number] SP [id number] [facility] [id number] SP [id number] [facility] [id number] SP [id number] MEDICARE [id number] SP [id number] HUMANA GOLD [id number] SP [id number] MEDICARE [id number] Gala [id number] MEDICARE [id number] SP [id number] HUMANA GOLD PLUS -O/P [id number] MEDICARE COMPLETE [id number] SP [id number] MEDICARE COMPLETE [id number] SP [id number] [facility] [id number] SP [id number] SELF PAY ONLY [id number] SP [id number] [facility] O [id number] S [id number] SELF PAY ONLY [id number] SP [id number] [facility] [id number] SP [id number] [facility] O [id number] S [id number] Problems, Conditions, and Diagnoses Code Display Name Description Problem Type Effective Dates Data Source(s) N281 Cyst of kidney, acquired Cyst of kidney, acquired Diag nosis 07/30/2020 12:47:00 PM EDT [facility] R339 Retention of urine, unspecified Retention of urine, un specified Diagnosis 07/30/2020 12:47:00 PM EDT [facility] N185 Chronic kidney disease, stage 5 Chronic kidney disease , stage 5 Diagnosis 07/30/2020 12:47:00 PM EDT [facility] Z68.38 Body mass index (BMI) 38.0-38.9, adult B julieth mass index (BMI) 38.0-38.9, adult Diagnosis 07/17/2020 01:18:38 PM EDT [facility] E66.01 Morbid (severe) obesity due to excess ca lories Morbid (severe) obesity due to excess ca Diagnosis 07/17/2020 01:18:38 PM EDT [facility] 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 accountant (cu rrent) use of insulin Diagnosis 07/17/2020 01:18:38 PM EDT [facility] E11.59 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 Type 2 diabetes mellitus with other circ Diagnosis 07/17/2020 01:18:38 PM EDT [facility] N28.9 Disorder of kidney and ureter, unspecifi ed Disorder of kidney and ureter, unspecifi Diagnosis 07/17/2020 01:18:38 PM EDT [facility] I25.10 Atherosclerotic heart diseas e of [place] coronary artery without angina pectoris Atherosclerotic heart disease of [place] Diagnosis 07/17/2020 01:18:38 PM EDT [facility] I50.32 Chronic diastolic (congestive) heart dayana lure Chronic diastolic (congestive) heart dayana Diagnosis 07/17/2020 01:18:38 PM EDT [facility] T82.858A Arteriovenous fistula stenosis Arteriovenous fistula s tenosis Problem 11/29/2020 12:00:00 AM EDT [facility] ([facility]) E55.9 [id number] Vitamin D deficiency Problem 11/19/2020 12:0 0:00 AM EDT eC ([facility]) E20.8 [id number] Secondary hypoparathyroidism Problem 021 12:00:00 AM EDT eC ([facility]) T82.898A Arteriovenous fistula occlusion Arteriovenous fi stula occlusion Problem 11/08/2020 12:00:00 AM EDT [facility] ([facility], ) I70.203 Atherosclerosis of arteries of the extre mities Atherosclerosis of arteries of the extremities Problem 11/08/2020 12:00:00 AM EDT MEDEN T ([facility], ) B02.9 Herpes zoster without complication Herpes zoster without complication Problem 11/08/2020 12:00:00 AM EDT [facility] ([facility], ) E11.22 [id number] 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 Problem 07/26/2020 12:00:00 AM EDT eCW ([facility]) N18.5 [id number] Chronic kidney disease, stage 5 Problem 07/26/2020 12:00:00 AM EDT eCW ([facility]) Z89.512 [id number] History of left below knee amputation Problem 05/23/2020 12:00:00 AM EDT eCW1 ([facility]) I50.32 Chronic heart failure with preserved eje ction fraction Chronic heart failure with preserved ejection fraction [id number] 12/29/2019 12:00:00 AM [facility] E11.59 Type 2 diabetes mellitus with home office claims 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 y disorder Type 2 diabetes mellitus with circulatory disorder [id number] 12/29/2019 12:00:00 AM [facility] E66.9 Class 2 obesity in adult Class 2 obesity in adult 6457 200012/29/2019 12:00:00 AM [facility] Surgeries/Procedures Procedure Description Date Indications Data Source(s) OFFICE OUTPATIENT VISIT 25 MINUTES 11/29/2020 12:00:00 AM EDT [facility] ([facility], ) OFFICE OUTPATIENT VISIT 25 MINUTES 11/08/2020 12:00:00 AM EDT [facility] ([facility], ) BASIC METABOLIC PANEL CALCIUM TOTAL <td>BASIC METABOLI C PANEL</td><td>Routine</td><td>06/22/2020</td><td></td><td> </td> 06/22/2020 12:00:00 AM EDT [facility] OFFICE OUTPATIENT VISIT 15 MINUTES 06/04/2020 12:00:00 AM EDT [facility] ([facility], ) INJECTION 1 TENDON SHEATH/LIGAMENT APONEUROSIS 021 12:00:00 AM EDT [facility] OFFICE OUTPATIENT VISIT 15 MINUTES 05/24/2020 12:00:00 AM EDT [facility] ([facility]) INJECTION 1 TENDON SHEATH/LIGAMENT APONEUROSIS 021 12:00:00 AM EST [facility] ([facility]) POCT AMB EKG <td>POCT AMB EKG</td><td>Veena cason</td><td>12/29/2019 5:12 PM EST</td><td> Coronary artery disease involving [place] coronary artery of [place] heart without angina pectoris</td><td> </td> 12/29/2019 10:12:00 PM EST Coronary artery disease involving [place] coronary artery of [place] heart without angina pectoris [facility] Coronary artery disease involving [place] coronary artery of [place] heart without angina pectoris Injection, ceftriaxone sodium, per 250 mg 12/23/2019 1 2:00:00 AM EDT eCW1 ([facility]) Results ID Date Data Source [id number] 12/01/2020 01:45:00 PM EDT [facility] Name Value Range Interpretation Code Description Data Faith rce(s) Supporting Document(s) Prothrombin Time 13.3 s 12.7-14.5 Normal (applies to non-numeric results) [facility] ([facility], ) Inr 0.97 Normal (applies to non-numeric resul ts) [facility] ([facility], ) THERAPUTIC HUMAN INR VALUES INDICATIONS NORMAL RANGES PROPHYLAXIS/TREATMENT OF: VENOUS THROMBOSIS 2.0-3.0 PULMONARY EMBOLISM 2.0-3.0 PREVENTION OF SYSTEMIC EMBOLISM FROM: TISSUE HEART VALVES 2.0-3.0 ACUTE MYOCARDIAL INFARCTION 2.0-3.0 VALVULAR HEART DISEASE 2.0-3.0 ATRIAL FIBRILLATION 2.0-3.0 MECHANICAL VALVES(HIGH RISK) 2.5-3.5 RECURRENT MYOCARDIAL INFARCTION 2.5-3.5 ID Date Data Source [id number] 12/01/2020 01:45:00 PM EDT [facility] ([facility]) Name Value Range Interpretation Code Description Data Faith rce(s) Supporting Document(s) aPTT in Platelet poor plasma by Coagulation assay 29.2 s 25.9-37.0 Normal (applies to non-numeric results) [facility] ([facility]) Platelets [#/volume] in Blood by Automated count Laboratory test resu lt [facility] ([facility]) ID Date Data Source [id number] 12/01/2020 01:45:00 PM EDT [facility] ([facility]) Name Value Range Interpretation Code Description Data Faith rce(s) Supporting Document(s) Glucose, Fasting 187 mg/dL 70-100 Above high normal M [facility] ([facility]) Creatinine For GFR 2.13 mg/dL 0.55-1.30 Above high normal [facility] ([facility]) Blood Urea Nitrogen 17 mg/dL 7-18 Normal (applies to non-nume julien results) [facility] ([facility]) Glomerular Filtration Rate 24.5 Below low normal [facility] ([facility]) <content>Units are mL/min/1.73 m2</content>
<content></content>
<content>Chronic Kidney Disease Staging per NKF:</content>
<content></content>
<content>Stage I & II GFR >=60 Normal to Mildly Decreased</content>
<content>Stage III GFR 30- 59 Moderately Decreased</content>
<content>Stage IV GFR 15-29 Severely Decreased</content>
<content>Stage V GFR <15 Very Little GFR Left</content>
<content>ESRD GFR <15 on [employer]</content>
<content></content> Sodium Level 138 meq/L 136-145 Normal (applies to non-numeric res ults) [facility] ([facility]) Chloride Level 104 meq/L 98-107 Normal (applies to non-numeric r esults) [facility] ([facility]) Potassium Serum 4.6 meq/L 3.5-5.1 Normal (applies to non-numeric results) [facility] ([facility]) Anion Gap 2 meq/L 8-16 Below low normal [facility] ( [facility]) Calcium Level 8.8 mg/dL 8.8-10.2 Normal (applies to non-numeric re sults) [facility] ([facility]) Carbon Dioxide Level 32 meq/L 21-32 Normal (applies to non-num anne results) [facility] ([facility]) ID Date Data Source [id number] 12/01/2020 01:45:00 PM EDT [facility] ([facility]) Name Value Range Interpretation Code Description Data Faith rce(s) Supporting Document(s) White Blood Count 7.8 10 4.0-10.0 Normal (applies to non-numeri c results) [facility] ([facility]) Red Blood Count 2.98 10 4.00-5.40 Below low normal [facility] ([facility]) Mean Corpuscular Volume 103.7 fl 80.0-96.0 Above high normal [facility] ([facility]) Hematocrit 30.9 % 36.0-47.0 Below low normal [facility] ( [facility]) Hemoglobin 10.0 g/dL 12.0-15.5 Below low normal [facility] ( [facility]) Mean Corpuscular Hemoglobin 33.6 pg 27.0-33.0 Above high normal [facility] ([facility]) Mean Corpuscular HGB Conc 32.4 g/dL 32.0-36.5 Normal (applies to non-numeric results) [facility]) Neutrophils % 69.3 % 36.0-66.0 Above high normal [facility] ([facility]) Platelet Count, Automated 137 10 150-450 Below low normal [facility] ([facility]) Red Cell Distribution Width 13.9 % 11.5-14.5 Norm al (applies to non-numeric results) [facility] ([facility]) Lymph % 17.8 % 24.0-44.0 Below low normal [facility] ( [facility]) Preston % 7.9 % 2.0-8.0 Normal (applies to non-numeric resul ts) [facility] ([facility]) Eos % 3.2 % 0.0-3.0 Above high normal [facility] ([facility]) Immature Granulocyte % 1.3 % 0-3.0 Normal (applies to non-n umeric results) [facility] ([facility]) Baso % 0.5 % 0.0-1.0 Normal (applies to non-numeric resul ts) [facility] ([facility]) Nucleated Red Blood Cell % 0.0 % 0-0 Normal (applies to n on-numeric results) [facility] ([facility]) Neutrophils # 5.4 10 1.5-8.5 Normal (applies to non-numeric re sults) [facility] ([facility]) Lymph # 1.4 10 1.5-5.0 Below low normal [facility] ( [facility]) Baso # 0.0 10 0.0-0.2 Normal (applies to non-numeric resul ts) [facility] ([facility]) Preston # 0.6 10 0.0-0.8 Normal (applies to non-numeric resul ts) [facility] ([facility]) Eos # 0.3 10 0.0-0.5 Normal (applies to non-numeric resul ts) [facility] ([facility]) ID Date Data Source [id number] 11/10/2020 11:55:00 AM EDT [facility] Name Value Range Interpretation Code Description Data Faith rce(s) Supporting Document(s) SARS coronavirus 2 RNA [Presence] in Res piratory specimen by MADY with probe detection NEGATIVE [facility] This lab was ordered by [facility] a nd reported by [facility]. ID Date Data Source [id number] 10/20/2020 08:33:00 PM EDT [facility] Name Value Range Interpretation Code Description Data Faith rce(s) Supporting Document(s) SARS-CoV-2 (COVID 19) NEGATIVE - SARS-CoV-2 (COVID19) [facility] This lab was ordered by [facility] a nd reported by [facility]. ID Date Data Source [id number] 09/25/2020 10:57:47 AM EDT [facility] Name Value Range Interpretation Code Description Data Faith rce(s) Supporting Document(s) Progress Note [facility] TYZHKl5fLoSYCeWm22/WGAwzYDWtb0MgKCxgEEf3GRfjNWCgM5FkJOH7pF8nDCN3YMjLWoNoHkAqJUWm lbm [file] ETL LEAD+Gg4FKTIqGGk3J3F6NAXyOZw0U5FXM5CBZXWwCZvqWKbhYJTkVEt8N8L9RUXbH4WVM5Eocwwedp4+ EX6QR78WUABpKOd3C2S5iRGxW1O4iFpBcLZ3RB0FDI3PxMd3qZPxqB7+DY7TU6IULhXyEXi2C0I2sPSe W3S5sWuJoCA0XB7CQM7HbQFpQIKzuiJmGx9zN8KJTH iELcLCDCS8WE3XjVPgHJ7QlVFLC3LppVYkOl1kSKhuhOTjsQ0eMv6mFDnyQJ6NExWWVQzMYFG6GW3YnY TyGJ4OtEIEL7MweCXqSl9rTUgdnKZymy8+JO3PFBQxIl1JTv2+UAsfotZuIndJPcUlTUUkr1LoFJc3DC 1FJF6tnRppPYK0Nl3ZmYQ9aHDdW7yCLZ0FdKDwH65j fBVlQSLvJc0AOfQ6zcJxuL9OIO02kKWdd6F2OVUpG9mwJFpqu62oGJhlFIhCYQ4dBULIEBxyLGvkGCH5 VfLfrdcfTKUcIk8CBiRhBXo6lT5hgAW8TNX2DenijDPpJHqnEaTtBrSgYwV0zTkohzp4RYrsYZ6xKTxb czptZXRhLyc+GRkgJXMfVLOtTrpLGWQvlW8ylmM3xh WzHKrbxBEpUn6sz8u0ZvucJq3tZb2mYFq4RgIbQdLqZFYgFu3drQ53TLophhFpIc2IZkCnFMX0X4EiIw pSREY+BUwyITqbwXa7zOKpOQPlYr8YUBObYIUgVFSsTIHdCNYqWYJoFKLfDTPvJUErGVEdIMMvWQSqZX AgICAgICAgICAgICAgICAgICAgICAgICAgICAgICAg BFWkBIYbIAYyUDVkVUSjJIEaIVRsUOYvVSBrNRHzYL5QYRRsEOMmNNIxGILfJNMcNNClBTEvWQAqDJIv ICAgICAgICAgICAgICAgICAgICAgICAgICAgICAgICAgICAgICAgICAgICAgICAgICAgICAgICAgICAg KMQrAZQbWQFgQRMtBV6WAZZlSFQzVMXmDRFcOUYwMS AgICAgICAgICAgICAgICAgICAgICAgICAgICAgICAgICAgICAgICAgICAgICAgICAgICAgICAgICAgIC LoFBBvSOVzJWRbJVTmBMBwMNQzEUDyZP2IKZFuHCDtQDChNDKyZILdDZOnKKEqXMPuPNGpNGLrLUSqNC AgICAgICAgICAgICAgICAgICAgICAgICAgICAgICAg QZMpOKThNPZkRNAlQYMlWNHjQRQxOTYdKEIvAYWxKYViXZ4GVMRcOTYzSUOdFECyJCVcLRUfTJKtPKLw ICAgICAgICAgICAgICAgICAgICAgICAgICAgICAgICAgICAgICAgICAgICAgICAgICAgICAgICAgICAg YCIqEJKwUNQvZTRiBLZwQY6VELWcKPKcTFMnEJXuKM AgICAgICAgICAgICAgICAgICAgICAgICAgICAgICAgICAgICAgICAgICAgICAgICAgICAgICAgICAgIC LsHNSaCTMhRIFeRQLwBBKqKGKbTCHhSOBnMY7WFRUrVKKrQCYiYTTuUJGoOKShZUThZLPwLBDzHGTvCJ AgICAgICAgICAgICAgICAgICAgICAgICAgICAgICAg RLQbCBZmZLGjQYEuLPKkMALdUZMzVUEnOZIxXVIjREJeRKZeKK6GUQApBTMxXIBaTNAmMZGmRHQwOAVg ICAgICAgICAgICAgICAgICAgICAgICAgICAgICAgICAgICAgICAgICAgICAgICAgICAgICAgICAgICAg IFKfIXUrJABlOYXfNCXbYXXyJJ5XSNSkMZLaSTFyBL AgICAgICAgICAgICAgICAgICAgICAgICAgICAgICAgICAgICAgICAgICAgICAgICAgICAgICAgICAgIC RjAMLnYXInLGAlICZqQMJfLTQhXVQfOBWlWNAhVU8KNQAjAIMkNPCeOFJuJIUbYRByJDQfTGVcSKUyFM AgICAgICAgICAgICAgICAgICAgICAgICAgICAgICAg QJQdAOIfENGxEFJyAZMpUTOfXTGlNBVtFSZuGCYsHNHhCLZjCWMzXE2BHP73aMQqh3L8AFDaLF0iiun/ Ql3NSDraneRlqQKsLF9KNoCrME2xfb9ISfImPN9tbq3JGXyCFbTzU4H9nBFbRVOsRODCCnKiW13cAGat Pu27FJuzILJyJcCgJWz8Vw7BViSfK3frIMZfQfI6GA ZeVaJhNHngOC4Fg1ZdrYCxYRf+Ol7WRW3ji4YzBHnjNzCxIH8fkr3UJQkNZuKhP7OckkR9EKKwSINaOh 4FDLUrIGHjfTPsQcYyYFNLSuShL7MhlP97WMUEBx0+LMnnuzHeXwcWOzXiJQOjy0ZmWCb6BM2NLLQqLX d6wCPsVNErI7Wxx4KxTr94ODQjImggSWFfbPO0BJPw SiocahroYz0zDXMwDJ5oYqSzBdExEIg6LFRzAX8fMRwrKC4BDUD9DPgmLCBjIJSzF9dJNvLoOHViFmZb aVipYW2VTgLoL7KrgqPhwYXeThUwFHNMIr8+PNtdddAbHjlSCsG5QTOuq3UzYJc2OM8BMFXfBDbeYL0P VORlbD4gMTuaEJ7YErTgZBUtOXJSAhVtU79mxMEzIW d8M1SmUhJyATVlThjtNBQsAMcqKmZzVOYuGjXlFQliRQ7+ID4+NLqjBJ0XEXimmqFzJLUsAg2GGRZoLV JuYO0bUAVdXXPoD9Y5kNbrDDDZPaAoU1ygrifrUV2tDUHbV725tGibmsMxHZBcWGMxWb8PXKKnDFQ4TW KdzZTuIeVwMFFZOWtyLS5XgQWuDES9oT3aBZbaTHDj QFTtR5oNWlIqqMccKZ61bGtowwNabCIzMFm+Qt0COC1wr6HvZPr2cfRaNZukERA1CHfoNDZeMRPbJBZo AOI0FDG7DYWFQfAkHDHgFKZzNDxyTXYhBNWqfw5CEYQmERNtFZO8JEHpSTUyWWSxPOxfYWGzCNFfZPgt NIZaPXJcMT1ZElErHSKsAQLqXVfnAORnJCWfwi6RMO WjWPKtBKj3MCFyRLTfRNEeDEfqKKYqWECfRYaeTBHnLPVoBW2FNsXaLBTsNDEsZYDeYIJtRLVecd6ZIF GePMIjCkVyQcOzYWKcCZMpSQxuTYGxGGMdCGW1EMZbENCfAI1PHlOmZZLsTRCeCmUnWLKcKYGtcq3LCG SaEIImHTW0NuEsHIWaALDhHVdlGRPdAAP1HyT0ISOj OSDeES5YYnBmWYOjKCPnPZmbHAOoLHSvbe1ZAZNpBIOwMaEmLGCsHILpVMQmIDzyKZXsMZN9PsW5LBCh KAFrYI1FFrXbHPLnAEM8FTVfTJRgIOEfch7LXBAiNMWqTpSyBHOaHOPlCXJqSMapACCcUKP6WYk7WVCz KUDaDX6BPsMcWTUxFHvtVBAaTUIoQBWflt5DIEZgHK RmLZJvQgQqSUQyRRKdAHwoBDIeZJS6BqJxCBZbTMQuPY9CCiPnEZVnAvIbGMSeYHBwWXIkmp4PPGHkDM AyCHS4LDToEGUcZDNpEChhZJFnVICcQhg5BUCaHFXbNS9TKyUbFYvySXUNJvw0XCunK0o9AWTmLQ3LV9 Axl8BfUkUgBQDTAHboVI9ckgKrURBxNy4EU9pLQyfh YRQuWhZpCTpbRtIcWMC8DwPjTMZ4VFPbZ2NyYmVaRh9oBVI7CdSaX7LfV9SxSOJzDcGhUmTuQLj7B4P6 RhNiTGQfPxNkBG1GGi5DQwF7KEH9jBZoJp0PIuR0IHNLQdEkYK4BZYx= ID Date Data Source [id number] 09/22/2020 04:55:48 PM EDT [facility] Name Value Range Interpretation Code Description Data Faith rce(s) Supporting Document(s) &PDF [facility] IRZEMt7uBfPIHnMz94/BIZgoNHNpy6OzNSwqBMm1MWzvUVNqQ9XxiZfhNV0FI9lJUevREJuFC3uFAQWb hdG [file] fTOV9ekMMS0Hz+[place]+P7hcy0k2SK7WmP/5chQ1V6UjpgJQPAELg8kB4XpGSCI1yhOP6twbg1ja52s/nb [file] AgICAgICAgICAgICAgICAgICAgICAgICAgICAgICAg ICAgICAgICAgICAgICAgICAgICAgICAgICAgICAgICAgICAgICAgICAgICAgICAgICAgDQogICAgICAg ICAgICAgICAgICAgICAgICAgICAgICAgICAgICAgICAgICAgICAgICAgICAgICAgICAgICAgICAgICAg ICAgICAgICAgICAgICAgICAgICAgICAgICAgICAgIC AgDQogICAgICAgICAgICAgICAgICAgICAgICAgICAgICAgICAgICAgICAgICAgICAgICAgICAgICAgIC AgICAgICAgICAgICAgICAgICAgICAgICAgICAgICAgICAgICAgICAgICAgDQogICAgICAgICAgICAgIC AgICAgICAgICAgICAgICAgICAgICAgICAgICAgICAg ICAgICAgICAgICAgICAgICAgICAgICAgICAgICAgICAgICAgICAgICAgICAgICAgICAgICAgDQogICAg ICAgICAgICAgICAgICAgICAgICAgICAgICAgICAgICAgICAgICAgICAgICAgICAgICAgICAgICAgICAg ICAgICAgICAgICAgICAgICAgICAgICAgICAgICAgIC AgICAgDQogICAgICAgICAgICAgICAgICAgICAgICAgICAgICAgICAgICAgICAgICAgICAgICAgICAgIC AgICAgICAgICAgICAgICAgICAgICAgICAgICAgICAgICAgICAgICAgICAgICAgDQogICAgICAgICAgIC AgICAgICAgICAgICAgICAgICAgICAgICAgICAgICAg ICAgICAgICAgICAgICAgICAgICAgICAgICAgICAgICAgICAgICAgICAgICAgICAgICAgICAgICAgDQog ICAgICAgICAgICAgICAgICAgICAgICAgICAgICAgICAgICAgICAgICAgICAgICAgICAgICAgICAgICAg ICAgICAgICAgICAgICAgICAgICAgICAgICAgICAgIC AgICAgICAgDQogICAgICAgICAgICAgICAgICAgICAgICAgICAgICAgICAgICAgICAgICAgICAgICAgIC AgICAgICAgICAgICAgICAgICAgICAgICAgICAgICAgICAgICAgICAgICAgICAgICAgDQogICAgICAgIC AgICAgICAgICAgICAgICAgICAgICAgICAgICAgICAg ICAgICAgICAgICAgICAgICAgICAgICAgICAgICAgICAgICAgICAgICAgICAgICAgICAgICAgICAgICAg DHt8I8xwUQCyQZRtZH1qBUs1Ol9+DPkDGjHfDTE6srFprZ3IWE9wu5EhUIemFXByd7NuUId3MJ7GVYYx RVryCH6UEPhaqf8ICTGdZAGobHKBa8ocPtLeSOO0CC NyEvnqEH8ZTWWfR6fpicWxRRBnUCYIZBcwCAFAGBuiKPWOKFVdGPNdPtYtBQhjMD1Nn1EmvLQ0PIv+Pg 5XUC3qr1TzDVb0HlHfPL7txe3DFHyIHgNlG8R0lZGeQ0N4SJszFo9WNLMzBJXeYBAgLZHYYDgdER9XMS 9xfuV1LD2HzNSkZAYqBGIbcPTbPBa1I37gsZQqJVtc CK6DOEK+Nick+Mj1ASNLhYAOjKSPpZzFgBDTMRaTmI75geVHsEFMdCCX8SFYbBd5WRXWbH3AwwzOtkAcx lvPqOQWwUPLESB6GYKzbalDorSYteNboJO82tZcqBJ2QKu2LNoYdXM7cpp2DdZUjNb3MLSH8WO8MDJQu QLXeGKMiECL0NEQiMzRjVPmdZSEjTGQdAUO0GRAhWU UzBP5KYgWvGKVmNnGpLRFmPEFpUXGpoc2DSPBxHOKuSqMpMuWwBQPyXCWbKGvhGRUvTKGuUMe2SGCpJA WmUF0SYtRxROAvIJC0GIOfHIVbZEDcpq3RHKBiOVKlAYZ6FnErOZHtVMWjOPzsEBDcDEU4JQmpWWYmTM VyCO2NHgMeAXLgDAt6EUBkTMFfOKCwzt5PFMVvAMMu HxCcELRhEFKaVQUoARdhMQLhJWHyEqJ8WZKnOTJwAK3PWcQbQRHmDGG5JFMvHYGaHQBwki7CXZPfDQEn IJr6FUMlKUGvKNEeALmrQKDeQZA7EvCrNOUiITWuBY1AToYrVGCqKXT9BIwoECXtRRCkms8KPXWoZVAp XgGlPFCdTEWaHNPsNLtsYNOoAXE0VDo4RSMcXGYgIP 1VKoDpVUTwYPuiSOQkQKLvEEHetk5BPJDnRBMbAwQ5SAHkQVHbINXgRJloYTQaPYOpGrA8CUMfBPSfOW 0AYwXgIZXfHaV3SDRtCHJaQUVgrn9GHNAnNVBqSiq5BTFlNBRuUOUdLShrDHApSMWjLSK9GTFtFGAjJV 0UNuZqNVWrXoVnBYFhATIiSALtxo4MJROvELBtSCV7 DzBdDXMoYTLsUNtaVAPfIVO5Fqr9WEOaCCJzZL2ZQiShGCSpNdT4EEEeKNFtGUBsax2ONYSzINWfXAA3 NrBfVJWpPUOeBUcqQTFuSQK6Mdq1SXAoESFxGL8ZOlMeHJHzUoQ4FXKpEFCfZWUbcl5EADWwLRSaQeG5 NhFjEMBrGZMdYFcyLHYdUIO8BEH9QXMfVTZgMJ6HHf GdVXQhScL6TjhwTDTsSXXehi0LSNGcTAYkFcExNNKjQMJtJNBrOGfoDWXkRED2FmE7GTDpRUMhYK4CHr UoANAtLmk5NPSyFSKiTRZjab0ZSWTfDQIsXdf9RCGvDKFjPFFdRNudWXJsEJN5NJaeSICaAQCmLG4KRe SwUOZoDmarNuFrVIKwAMElfe2VDUTgBRMoDIW4LePe XWGuAVRlEThvYNJwHBK9ZLP4GQOdHDEcTC8URpQlXBZtRomcTwStVNDqXRBgvp6YBPGmBZEbTTWjCDWl WVJxOZGhRWfpZXStGPR4EiK0PCRdSAUnAL7GGtRjKGVyRsa0UHpmQLItBCIgfn9BIQEbWIHxXGQ5BCWd ZTGhEKJiRVlsLYYvARGxLNsnFJQqSIErTE4HTtAlMB NpBjKpFsitHLHaPOGtbv0GsPMyeOhutl2JKSmFPo3DiUdgTOY8UKooJo5heGZ5HkRdHALHZl5IryTkLF EeOFMFMJnvKNAhWBj4K5VeJwtaWRQ8YSH8JdQ0F6V8JHRaPHHcAADbNRNvLbO0FrmoSlD0YCFtYDZsNc M8YLA2QWL1IpLvWJZrAoNhDES+DS2uIAf+Mv4Sm9XqlyM4bdChWTniBxDqSi8QHOOHE5GWVl== ID Date Data Source [id number] 08/01/2020 11:25:00 AM EDT [facility] [address] [place] [address] PHONE: [phone] FAX: [phone] Name .................. : PEARL MAE Acct Number.................. : [id number] ROOM. ................. : Number ................... : [id number] Stay type ............. : O/P Discharge Date......... ... : 07/30/20 Admit Date ......... : 07/30/20 Admit Phys .................... : NASREEN Date of ....... : 1950 Family Phys ................... : LISSY COOK Phone .................. : [phone] Age ................................ : 69 Film# .................. .:[id number] Sex ................................. : F Unsigned transcriptions are preliminary reports and do not represent a medical or legal document RENAL COMPLETE [id number] COMPLETE:07/30/20 14:26 [facility] [id number] Reason for Exam: CHRONIC KIDNEY DISEASE RETENTION OF URINE; PVR RENAL ULTRASOUND: INDICATION: Chronic renal disease, urinary retention, post void residual. FINDINGS: The right kidney measures 10.5 x 5.5 x 5.8 cm in size. The left kidney measures 12.0 x 5.2 x 7.0 cm. No hydronephrosis or nephrolithiasis is identified. There is a 7 mm cyst identified in the left kidney. Ureteral jets are not clearly visualized on today's examination. Pre-void bladder volume is 454 cc. The urinary bladder appears unremarkable. No post void residual is identified. IMPRESSION: Subcentimeter left renal cyst. Ureteral jets are not clearly visualized on today's examination. No post void residual. No acute findings. Examination dictated by CARISA Hensley. Examination was reviewed with Marlo Abrams MD, radiologist at the time of this dictation. Electronically Reviewed and Signed By Marlo Abrams M.D. , 08/01/20 11:25, [facility] Transcribe Initials: DZ , Transcribe Date: 07/31/20 05:04, Dictation Date: Copy for: SIM Dempsey via fax Copy for: [address] [place] [address] Page 1 of 1 Name Value Range Interpretation Code Description Data Faith rce(s) Supporting Document(s) ID Date Data Source [id number] 11/22/2019 12:00:00 AM EDT [facility] Maureen Paez Patient Name: KAYA [id number] Date of : 1950[place] [address] Date of Exam: 11/22/2019#: Fax: [phone] EXAM: HAND RIGHT (COMPLETE) X-RAYCLINICAL INFORMATION: Finger pain.Four views. These images were obtained using digital radiography.There are no prior right hand xrays for comparison.There is intradigital joint space narrowing and marginal osteophytosis withmarginal erosions involving multiple digits. Degenerative change is seeninvolving the wrist. There is no acute fracture, dislocation, orsubluxation.IMPRESSION:Chronic changes as described above.FAHEEM Guerra/Gage you for referring CARMELITA NARAYAN to our office. Electronically Signed - MADINA OLIVA DO 11/22/19 16:28 Name Value Range Interpretation Code Description Data Faith rce(s) Supporting Document(s) ID Date Data Source [id number] 11/22/2019 12:00:00 AM EDT [facility] Maureen Velázquez [employer] Patient Name: KAYA [id number] Date of : 1950[place] [address] Date of Exam: 11/22/2019#: Fax: [phone] EXAM: HAND LEFT (COMPLETE) X-RAYCLINICAL INFORMATION: Finger pain.Four views. These images were obtained using digital radiography.Comparison 08/04/2011.The trapezium is absent today. This represents a significant change fromthe prior exam. I have not been given surgical history, however. There isirregularity of the basal surface of the 1st metacarpal.There is asymmetric intradigital joint space narrowing which has increasedfrom the prior exam. There is a marginal erosion seen involving thelateral base of the middle phalanx of the 3rd digit which has increased insize. Other smaller marginal erosions are also noted.IMPRESSION:1. 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 The etiology is uncertain. This needs to becorrelated clinically.2. Chronic changes as described above.FAHEEM Guerra/Gage you for referring CARMELITA NARAYAN to our office. Electronically Signed - MADINA OLIVA DO 11/22/19 16:28 Name Value Range Interpretation Code Description Data Faith rce(s) Supporting Document(s) ID Date Data Source [id number] 11/22/2019 12:00:00 AM EDT [facility] Maureen Velázquez [facility] Patient Name: KAYA [id number] Date of : 1950[place] [address] Date of Exam: 11/22/2019#: Fax: [phone] EXAM: CHEST (2 VIEW) X-RAYCLINICAL INFORMATION: Dyspnea.Two views. These images were obtained using digital radiography.The latest prior for comparison is 04/27/2019.Once again, there is a mild increase in the interstitial markingsthroughout the lung wood, status quo. No acute patchy parenchymalopacities or pleural effusions have developed. There is mild cardiomegaly,status quo. The pleural angles are sharp. There is no change in theosseous structures.IMPRESSION:1. Chronically increased interstitial markings without development of apatchy opacity. This should be correlated clinically with appropriatefollowup.2. There is cardiomegaly.FAHEEM Guerra/Gage you for referring CARMELITA NARAYAN to our office. Electronically Signed - MADINA OLIVA DO 11/22/19 16:28 Name Value Range Interpretation Code Description Data Faith rce(s) Supporting Document(s) ID Date Data Source [id number] 11/16/2019 12:00:00 AM EDT [facility] Name Value Range Interpretation Code Description Data Faith rce(s) Supporting Document(s) 2019-nCoV RNA XXX MADY+probe-Imp [facility] This lab was ordered by [facility] and reported by [facility]. ID Date Data Source [id number] 11/05/2019 11:00:00 AM EDT [facility] Name Value Range Interpretation Code Description Data Faith rce(s) Supporting Document(s) SARS coronavirus 2 RNA [facility] This lab was ordered by [facility] and reported by [facility]. Procedure Social History Code Duration Value Status Description Data Source(s ) Smoking 11/27/2020 12:00:00 AM EDT Former Smoker completed Former Smoker eCW1 ([facility]) Smoking 10/23/2020 12:00:00 AM EDT Former Smoker completed Former Smoker eCW1 ([facility]) Smoking 10/23/2020 12:00:00 AM EDT Former Smoker completed Former Smoker eCW1 ([facility]) Smoking 10/23/2020 12:00:00 AM EDT Former Smoker completed Former Smoker eCW1 ([facility]) Smoking 10/23/2020 12:00:00 AM EDT Former Smoker completed Former Smoker eCW1 ([facility]) Smoking 10/23/2020 12:00:00 AM EDT Former Smoker completed Former Smoker eCW1 ([facility]) Smoking 10/23/2020 12:00:00 AM EDT Former Smoker completed Former Smoker eCW1 ([facility]) Smoking 10/23/2020 12:00:00 AM EDT Former Smoker completed Former Smoker eCW1 ([facility]) Smoking 08/20/2020 12:00:00 AM EDT Former Smoker completed Former Smoker eCW1 ([facility]) Smoking 08/20/2020 12:00:00 AM EDT Former Smoker completed Former Smoker eCW1 ([facility]) Smoking 08/20/2020 12:00:00 AM EDT Former Smoker completed Former Smoker eCW1 ([facility]) Smoking 08/20/2020 12:00:00 AM EDT Former Smoker completed Former Smoker eCW1 ([facility]) Alcohol intake 07/17/2020 12:00:00 AM EDT Current non-d marina of alcohol (finding) completed Current non-drinker of alcohol (finding) [facility] Smoking 05/11/2020 12:00:00 AM EDT Former Smoker completed Former Smoker eCW1 ([facility]) Smoking 05/11/2020 12:00:00 AM EDT Former Smoker completed Former Smoker eCW1 ([facility]) Smoking 05/11/2020 12:00:00 AM EDT Former Smoker completed Former Smoker eCW1 ([facility]) Smoking 05/11/2020 12:00:00 AM EDT Former Smoker completed Former Smoker eCW1 ([facility]) Smoking 05/11/2020 12:00:00 AM EDT Former Smoker completed Former Smoker eCW1 ([facility]) Smoking 05/11/2020 12:00:00 AM EDT Former Smoker completed Former Smoker eCW1 ([facility]) Smoking 05/11/2020 12:00:00 AM EDT Former Smoker completed Former Smoker eCW1 ([facility]) Smoking 05/11/2020 12:00:00 AM EDT Former Smoker completed Former Smoker eCW1 ([facility]) Smoking 05/11/2020 12:00:00 AM EDT Former Smoker completed Former Smoker eCW1 ([facility]) Smoking 05/11/2020 12:00:00 AM EDT Former Smoker completed Former Smoker eCW1 ([facility]) Smoking 04/02/2020 12:00:00 AM EST Patient is a former smoker completed Patient is a former smoker [facility] ([facility] ) Smoking 01/10/2020 12:00:00 AM EST Former Smoker completed Former Smoker eCW1 ([facility]) Smoking 01/10/2020 12:00:00 AM EST Former Smoker completed Former Smoker eCW1 ([facility]) Smoking 01/10/2020 12:00:00 AM EST Former Smoker completed Former Smoker eCW1 ([facility]) Smoking 01/10/2020 12:00:00 AM EST Former Smoker completed Former Smoker eCW1 ([facility]) Smoking 01/10/2020 12:00:00 AM EST Former Smoker completed Former Smoker eCW1 ([facility]) Smoking 01/10/2020 12:00:00 AM EST Former Smoker completed Former Smoker eCW1 ([facility]) Smoking 01/10/2020 12:00:00 AM EST Former Smoker completed Former Smoker eCW1 ([facility]) Smoking 01/10/2020 12:00:00 AM EST Former Smoker completed Former Smoker eCW1 ([facility]) Smoking 01/10/2020 12:00:00 AM EST Former Smoker completed Former Smoker eCW1 ([facility]) Smoking 01/10/2020 12:00:00 AM EST Former Smoker completed Former Smoker eCW1 ([facility]) Smoking 01/10/2020 12:00:00 AM EST Former Smoker completed Former Smoker eCW1 ([facility]) Smoking 01/10/2020 12:00:00 AM EST Former Smoker completed Former Smoker eCW1 ([facility]) Smoking 01/10/2020 12:00:00 AM EST Former Smoker completed Former Smoker eCW1 ([facility]) Smoking 01/10/2020 12:00:00 AM EST Former Smoker completed Former Smoker eCW1 ([facility]) Smoking 01/10/2020 12:00:00 AM EST Former Smoker completed Former Smoker eCW1 ([facility]) Smoking 01/10/2020 12:00:00 AM EST Former Smoker completed Former Smoker eCW1 ([facility]) Smoking 01/10/2020 12:00:00 AM EST Former Smoker completed Former Smoker eCW1 ([facility]) Smoking 01/10/2020 12:00:00 AM EST Former Smoker completed Former Smoker eCW1 ([facility]) Smoking 01/10/2020 12:00:00 AM EST Former Smoker completed Former Smoker eCW1 ([facility]) Alcohol intake 12/29/2019 12:00:00 AM EST No completed [facility] Cigarette pack-years 12/29/2019 12:00:00 AM EST UNK completed [facility] Cigarettes smoked current (pack per day) - Reported 12/29/19 20 12:00:00 AM EST UNK completed [facility] Smoking 12/29/2019 12:00:00 AM EST Former smoker completed Former smoker [facility] Smoking 12/29/2019 12:00:00 AM EST Former Smoker completed Former Smoker eCW1 ([facility]) Smoking 12/29/2019 12:00:00 AM EST Former Smoker completed Former Smoker eCW1 ([facility]) Smoking 12/06/2019 12:00:00 AM EDT Former Smoker completed Former Smoker eCW1 ([facility]) Smoking 12/06/2019 12:00:00 AM EDT Former Smoker completed Former Smoker eCW1 ([facility]) Vital Signs ID Date Data Source UNK Name Value Range Interpretation Code Description Data Source(s) Body temperature 98.3 [degF] 98.3 [degF] [facility] Diastolic blood pressure 60 mm[Hg] 60 mm[Hg] MEDENT ([facility], ) Systolic blood pressure 120 mm[Hg] 120 mm[Hg] M EDENT ([facility], ) Body height 70 [in_i] 70 [in_i] MEDENT ([facility]) 5'10" Body weight 278.00 [lb_av] 278.00 [lb_av] MEDEN T ([facility]) Body surface area Derived from formula 2.40 m2 2.40 m2 [facility] ([facility]) Body weight 126.101 kg 126.101 kg [facility] ([facility]) Body mass index (BMI) [Ratio] 39.9 kg/m2 39.9 k g/m2 [facility] ([facility]) [place] body weight 150 [lb_av] 150 [lb_av] MEDEN T ([facility]) Systolic blood pressure 150 mm[Hg] 150 mm[Hg] EDENT ([facility]) Diastolic blood pressure 52 mm[Hg] 52 mm[Hg] [facility] ([facility]) Body temperature 98.4 [degF] 98.4 [degF] [facility] ([facility]) Body weight 270.38 [lb_av] 270.38 [lb_av] MEDEN T ([facility]) Body mass index (BMI) [Ratio] 38.8 kg/m2 38.8 k g/m2 [facility] ([facility]) [place] body weight 150 [lb_av] 150 [lb_av] MEDEN T ([facility]) Body surface area Derived from formula 2.37 m2 2.37 m2 [facility] ([facility]) Body height 70 [in_i] 70 [in_i] MEDENT ([facility]) 5'10" Body weight 122.642 kg 122.642 kg [facility] ([facility]) Body weight 272.2 [lb_av] 272.2 [lb_av] eCW1 ([facility]) Body weight 123.47 kg 123.47 kg eCW1 ([facility]) Body height 70 [in_i] 70 [in_i] eCW1 ([facility]) Body mass index (BMI) [Ratio] 39.05 kg/m2 39.05 kg/m2 eCW1 ([facility]) Heart rate 95 /min 95 /min eCW1 ([facility]) Diastolic blood pressure 76 mm[Hg] 76 mm[Hg] eCW1 ([facility]) Body temperature 97.5 [degF] 97.5 [degF] eCW1 ( [facility]) Respiratory rate 18 /min 18 /min eCW1 ([facility] to [facility]) Systolic blood pressure 126 mm[Hg] 126 mm[Hg] e CW1 ([facility]) Body height 70 [in_i] 70 [in_i] eCW1 ([facility]) Body weight 248.4 [lb_av] 248.4 [lb_av] eCW1 ([facility]) Body mass index (BMI) [Ratio] 35.64 kg/m2 35.64 kg/m2 eCW1 ([facility]) Heart rate 80 /min 80 /min eCW1 ([facility]) Respiratory rate 18 /min 18 /min eCW1 ([facility] to [facility]) Body temperature 98.1 [degF] 98.1 [degF] eCW1 ( [facility]) Systolic blood pressure 128 mm[Hg] 128 mm[Hg] e CW1 ([facility]) Diastolic blood pressure 74 mm[Hg] 74 mm[Hg] eCW1 ([facility]) Systolic blood pressure 140 mm[Hg] 140 mm[Hg] [facility] Diastolic blood pressure 68 mm[Hg] 68 mm[Hg] [facility] Heart rate 76 /min 76 /min [facility] Body height 177.8 cm 177.8 cm [facility] Body weight 124.739 kg 124.739 kg [facility] Body mass index (BMI) [Ratio] 39.46 kg/m2 39.46 kg/m2 [facility] Oxygen saturation in Arterial blood by Pulse oximetry 95 % 95 % [facility] [place] body weight 150 [lb_av] 150 [lb_av] MARGRET Erazo ([facility]) Body surface area Derived from formula 2.33 m2 2.33 m2 [facility] ([facility]) Body weight 117.936 kg 117.936 kg [facility] ([facility]) Systolic blood pressure 145 mm[Hg] 145 mm[Hg] M EDENT ([facility]) Diastolic blood pressure 67 mm[Hg] 67 mm[Hg] [facility] ([facility]) Body height 70 [in_i] 70 [in_i] [facility] ([facility]) 5'10" Body weight 260.00 [lb_av] 260.00 [lb_av] MEDEN T ([facility]) Body mass index (BMI) [Ratio] 37.3 kg/m2 37.3 k g/m2 [facility] ([facility]) Systolic blood pressure 150 mm[Hg] 150 mm[facility]Hg[facility] Diastolic blood pressure 69 mm[Hg] 69 mm[Hg] [facility] ([facility]) Heart rate 66 /min 66 /min [facility] ([facility]) Oxygen saturation in Arterial blood by Pulse oximetry 97 % 97 % [facility] ([facility]) Respiratory rate 18 /min 18 /min [facility] ( [facility]) Body temperature 96.6 [degF] 96.6 [degF] [facility] ([facility]) Body height 70 [in_i] 70 [in_i] [facility] ([facility] [facility] Body weight 270.00 [lb_av] 270.00 [lb_av] MEDEN T ([facility]) Body mass index (BMI) [Ratio] 38.7 kg/m2 38.7 k g/m2 [facility] ([facility]) [place] body weight 150 [lb_av] 150 [lb_av] MEDEN T ([facility]) Body weight 122.472 kg 122.472 kg [facility] ([facility]) Body surface area Derived from formula 2.37 m2 2.37 m2 [facility] ([facility], ) Body weight 267 [lb_av] 267 [lb_av] eCW1 ([facility]) Body height 70 [in_i] 70 [in_i] eCW1 ([facility]) Body mass index (BMI) [Ratio] 38.31 kg/m2 38.31 kg/m2 eCW1 ([facility]) Heart rate 89 /min 89 /min eCW1 ([facility]) Respiratory rate 18 /min 18 /min eCW1 (Pending sale to [facility]) Body temperature 98.1 [degF] 98.1 [degF] eCW1 ( [facility]) Systolic blood pressure 128 mm[Hg] 128 mm[Hg] e CW1 ([facility]) Diastolic blood pressure 82 mm[Hg] 82 mm[Hg] eCW1 ([facility]) Systolic blood pressure 144 mm[Hg] 144 mm[Hg] M EDENT ([facility], ) Diastolic blood pressure 68 mm[Hg] 68 mm[Hg] MEDENT ([facility], ) Heart rate 83 /min 83 /min [facility] ([facility], ) Oxygen saturation in Arterial blood by Pulse oximetry 99 % 99 % [facility] ([facility], ) Ra Body temperature 98.8 [degF] 98.8 [degF] [facility] ([facility], ) Body height 70 [in_i] 70 [in_i] [facility] ([facility], ) 5'10" [place] body weight 150 [lb_av] 150 [lb_av] MEDEN T ([facility], ) Diastolic blood pressure 76 mm[Hg] 76 mm[Hg] MEDENT ([facility], ) Body surface area Derived from formula 2.37 m2 2.37 m2 [facility] ([facility], ) Systolic blood pressure 131 mm[Hg] 131 mm[Hg] M EDENT ([facility], ) Heart rate 68 /min 68 /min MEDENT ([facility], ) Body height 70 [in_i] 70 [in_i] [facility] ([facility]) 5'10" Body weight 270.00 [lb_av] 270.00 [lb_av] MEDEN T ([facility]) Body mass index (BMI) [Ratio] 38.7 kg/m2 38.7 k g/m2 [facility] ([facility]) [place] body weight 150 [lb_av] 150 [lb_av] MEDEN T ([facility]) Body weight 122.472 kg 122.472 kg [facility] ([facility]) Body weight 262 [lb_av] 262 [lb_av] eCW1 ([facility]) Body height 70 [in_i] 70 [in_i] eCW1 ([facility]) Body mass index (BMI) [Ratio] 37.59 kg/m2 37.59 kg/m2 eCW1 ([facility]) Respiratory rate 18 /min 18 /min eCW1 (Pending sale to [facility]) Body temperature 97.1 [degF] 97.1 [degF] eCW1 ( [facility]) Systolic blood pressure 140 mm[Hg] 140 mm[Hg] e CW1 ([facility]) Diastolic blood pressure 60 mm[Hg] 60 mm[Hg] eCW1 ([facility]) Heart rate 80 /min 80 /min eCW1 ([facility]) Body weight 277.2 [lb_av] 277.2 [lb_av] eCW1 ([facility]) Body height 70 [in_i] 70 [in_i] eCW1 ([facility]) Body mass index (BMI) [Ratio] 39.77 kg/m2 39.77 kg/m2 eCW1 ([facility]) Heart rate 80 /min 80 /min eCW1 ([facility]) Respiratory rate 18 /min 18 /min eCW1 (Pending sale to [facility]) Body temperature 97.2 [degF] 97.2 [degF] eCW1 ( [facility]) Systolic blood pressure 128 mm[Hg] 128 mm[Hg] e CW1 ([facility]) Diastolic blood pressure 70 mm[Hg] 70 mm[Hg] eCW1 ([facility]) Systolic blood pressure 124 mm[Hg] 124 mm[Hg] [facility] Diastolic blood pressure 68 mm[Hg] 68 mm[Hg] [facility] Heart rate 71 /min 71 /min [facility] Body height 177.8 cm 177.8 cm [facility] Body weight 122.471 kg 122.471 kg [facility] Body mass index (BMI) [Ratio] 38.74 kg/m2 38.74 kg/m2 [facility] Oxygen saturation in Arterial blood by Pulse oximetry 96 % 96 % [facility] Body weight 275 [lb_av] 275 [lb_av] eCW1 ([facility]) Body height 70 [in_i] 70 [in_i] eCW1 ([facility]) Body mass index (BMI) [Ratio] 39.45 kg/m2 39.45 kg/m2 W1 ([facility]) Heart rate 81 /min 81 /min eCW1 ([facility]) Respiratory rate 18 /min 18 /min eCW1 (Pending sale to [facility]) Body temperature 97.6 [degF] 97.6 [degF] eCW1 ( [facility]) Systolic blood pressure 110 mm[Hg] 110 mm[Hg] e CW1 ([facility]) Diastolic blood pressure 58 mm[Hg] 58 mm[Hg] eCW1 ([facility]) Patient Treatment Plan of Care Planned Activity Planned Date Details Description Data Source (s) predniSONE 10 MG (48) 11/07/2020 12:00:00 AM EDT eCW1 ([facility]) predniSONE 10 MG (48) 11/07/2020 12:00:00 AM EDT eCW1 ([facility]) predniSONE 10 MG (48) 11/07/2020 12:00:00 AM EDT eCW1 ([facility]) predniSONE 10 MG (48) 11/07/2020 12:00:00 AM EDT eCW1 ([facility]) predniSONE 10 MG (48) 11/07/2020 12:00:00 AM EDT eCW1 ([facility]) Lidocaine Hydrochloride 0.05 MG/MG Transdermal Patch [ Lidoderm] 10/25/2020 12:00:00 AM EDT eCW1 ([facility]) Lancets - 10/25/2020 12:00:00 AM EDT e CW1 ([facility]) Alcohol Pads 70 % 10/25/2020 12:00:00 AM EDT eCW1 ([facility]) Test Strips - 10/25/2020 12:00:00 AM EDT eCW1 ([facility]) Lidocaine Hydrochloride 0.05 MG/MG Transdermal Patch [ Lidoderm] 10/25/2020 12:00:00 AM EDT eCW1 ([facility]) Test Strips - 10/25/2020 12:00:00 AM EDT eCW1 ([facility]) Lancets - 10/25/2020 12:00:00 AM EDT e CW1 ([facility]) Alcohol Pads 70 % 10/25/2020 12:00:00 AM EDT eCW1 ([facility]) Lidocaine Hydrochloride 0.05 MG/MG Transdermal Patch [ Lidoderm] 10/25/2020 12:00:00 AM EDT eCW1 ([facility]) Lancets - 10/25/2020 12:00:00 AM EDT e CW1 ([facility]) Alcohol Pads 70 % 10/25/2020 12:00:00 AM EDT eCW1 ([facility]) Test Strips - 10/25/2020 12:00:00 AM EDT eCW1 ([facility]) Lidocaine Hydrochloride 0.05 MG/MG Transdermal Patch [ Lidoderm] 10/25/2020 12:00:00 AM EDT eCW1 ([facility]) Lidocaine Hydrochloride 0.05 MG/MG Transdermal Patch [ Lidoderm] 10/25/2020 12:00:00 AM EDT eCW1 ([facility]) Test Strips - 10/25/2020 12:00:00 AM EDT eCW1 ([facility]) Lancets - 10/25/2020 12:00:00 AM EDT e CW1 ([facility]) Alcohol Pads 70 % 10/25/2020 12:00:00 AM EDT eCW1 ([facility]) Test Strips - 10/25/2020 12:00:00 AM EDT eCW1 ([facility]) Lancets - 10/25/2020 12:00:00 AM EDT e CW1 ([facility]) Alcohol Pads 70 % 10/25/2020 12:00:00 AM EDT eCW1 ([facility]) Lidocaine Hydrochloride 0.05 MG/MG Transdermal Patch [ Lidoderm] 10/25/2020 12:00:00 AM EDT eCW1 ([facility]) Alcohol Pads 70 % 10/25/2020 12:00:00 AM EDT eCW1 ([facility]) Test Strips - 10/25/2020 12:00:00 AM EDT eCW1 ([facility]) Lancets - 10/25/2020 12:00:00 AM EDT e CW1 ([facility]) Fluconazole 150 MG Oral Tablet 09/18/2020 12:00:00 AM EDT eCW1 ([facility]) Fluconazole 150 MG Oral Tablet 09/18/2020 12:00:00 AM EDT eCW1 ([facility]) Fluconazole 150 MG Oral Tablet 09/18/2020 12:00:00 AM EDT eCW1 ([facility]) FreeStyle Janette Sensor System - 04/19/2020 12:00:00 AM EST eCW1 ([facility]) FreeStyle Janette Sensor System - 04/19/2020 12:00:00 AM EST eCW1 ([facility]) 3 ML Insulin, Aspart, Human 100 UNT/ML Pen Injector [N ovoLog] 04/09/2020 12:00:00 AM EST eCW1 ([facility]) 3 ML Insulin, Aspart, Human 100 UNT/ML Pen Injector [N ovoLog] 04/09/2020 12:00:00 AM EST eCW1 ([facility]) 3 ML Insulin, Aspart, Human 100 UNT/ML Pen Injector [N ovoLog] 04/09/2020 12:00:00 AM EST eCW1 ([facility]) 3 ML Insulin, Aspart, Human 100 UNT/ML Pen Injector [N ovoLog] 04/09/2020 12:00:00 AM EST eCW1 ([facility]) 3 ML Insulin, Aspart, Human 100 UNT/ML Pen Injector [N ovoLog] 04/09/2020 12:00:00 AM EST eCW1 ([facility]) 3 ML Insulin, Aspart, Human 100 UNT/ML Pen Injector [N ovoLog] 04/09/2020 12:00:00 AM EST eCW1 ([facility]) 3 ML Insulin, Aspart, Human 100 UNT/ML Pen Injector [N ovoLog] 04/09/2020 12:00:00 AM EST eCW1 ([facility]) 3 ML Insulin, Aspart, Human 100 UNT/ML Pen Injector [N ovoLog] 04/09/2020 12:00:00 AM EST eCW1 ([facility]) 3 ML Insulin, Aspart, Human 100 UNT/ML Pen Injector [N ovoLog] 04/09/2020 12:00:00 AM EST eCW1 ([facility]) 3 ML Insulin, Aspart, Human 100 UNT/ML Pen Injector [N ovoLog] 04/09/2020 12:00:00 AM EST eCW1 ([facility]) 3 ML Insulin, Aspart, Human 100 UNT/ML Pen Injector [N ovoLog] 04/09/2020 12:00:00 AM EST eCW1 ([facility]) 3 ML Insulin, Aspart, Human 100 UNT/ML Pen Injector [N ovoLog] 04/09/2020 12:00:00 AM EST eCW1 ([facility]) 3 ML Insulin, Aspart, Human 100 UNT/ML Pen Injector [N ovoLog] 04/09/2020 12:00:00 AM EST eCW1 ([facility]) 3 ML Insulin, Aspart, Human 100 UNT/ML Pen Injector [N ovoLog] 04/09/2020 12:00:00 AM EST eCW1 ([facility]) Wheelchair - 03/08/2020 12:00:00 AM EST e CW1 ([facility]) Wheelchair - 03/08/2020 12:00:00 AM EST e CW1 ([facility]) Wheelchair - 03/08/2020 12:00:00 AM EST e CW1 ([facility]) Wheelchair - 03/08/2020 12:00:00 AM EST e CW1 ([facility]) Wheelchair - 03/08/2020 12:00:00 AM EST e CW1 ([facility]) Wheelchair - 03/08/2020 12:00:00 AM EST e CW1 ([facility]) Wheelchair - 03/08/2020 12:00:00 AM EST e CW1 ([facility]) Wheelchair - 03/08/2020 12:00:00 AM EST e CW1 ([facility]) Wheelchair - 03/08/2020 12:00:00 AM EST e CW1 ([facility]) Nystatin 100 UNT/MG Topical Powder 01/16/2020 12:00:00 AM EST eCW1 ([facility]) Nystatin 100 UNT/MG Topical Powder 01/16/2020 12:00:00 AM EST eCW1 ([facility]) Nystatin 100 UNT/MG Topical Powder 01/16/2020 12:00:00 AM EST eCW1 ([facility]) Nystatin 100 UNT/MG Topical Powder 01/16/2020 12:00:00 AM EST eCW1 ([facility]) Nystatin 100 UNT/MG Topical Powder 01/16/2020 12:00:00 AM EST eCW1 ([facility]) Nystatin 100 UNT/MG Topical Powder 01/16/2020 12:00:00 AM EST eCW1 ([facility]) Nystatin 100 UNT/MG Topical Powder 01/16/2020 12:00:00 AM EST eCW1 ([facility]) Nystatin 100 UNT/MG Topical Powder 01/16/2020 12:00:00 AM EST eCW1 ([facility]) Nystatin 100 UNT/MG Topical Powder 01/16/2020 12:00:00 AM EST eCW1 ([facility]) Nystatin 100 UNT/MG Topical Powder 01/16/2020 12:00:00 AM EST eCW1 ([facility]) Nystatin 100 UNT/MG Topical Powder 01/16/2020 12:00:00 AM EST eCW1 ([facility]) Nystatin 100 UNT/MG Topical Powder 01/16/2020 12:00:00 AM EST eCW1 ([facility]) Nystatin 100 UNT/MG Topical Powder 01/16/2020 12:00:00 AM EST eCW1 ([facility]) Nystatin 100 UNT/MG Topical Powder 01/16/2020 12:00:00 AM EST eCW1 ([facility]) Nystatin 100 UNT/MG Topical Powder 01/16/2020 12:00:00 AM EST eCW1 ([facility]) Nystatin 100 UNT/MG Topical Powder 01/16/2020 12:00:00 AM EST eCW1 ([facility]) Nystatin 100 UNT/MG Topical Powder 01/16/2020 12:00:00 AM EST eCW1 ([facility]) FreeStyle Janette 14 Day [place] - 01/10/2020 12:00:00 AM EST eCW1 ([facility]) FreeStyle Janette 14 Day [place] - 01/10/2020 12:00:00 AM EST eCW1 ([facility]) FreeStyle Janette 14 Day [place] - 01/10/2020 12:00:00 AM EST eCW1 ([facility]) FreeStyle Janette 14 Day [place] - 01/10/2020 12:00:00 AM EST eCW1 ([facility]) FreeStyle Janette 14 Day [place] - 01/10/2020 12:00:00 AM EST eCW1 ([facility]) FreeStyle Janette 14 Day [place] - 01/10/2020 12:00:00 AM EST eCW1 ([facility]) FreeStyle Janette 14 Day [place] - 01/10/2020 12:00:00 AM EST eCW1 ([facility]) FreeStyle Janette 14 Day [place] - 01/10/2020 12:00:00 AM EST eCW1 ([facility]) FreeStyle Janette 14 Day [place] - 01/10/2020 12:00:00 AM EST eCW1 ([facility]) FreeStyle Janette 14 Day [place] - 01/10/2020 12:00:00 AM EST eCW1 ([facility]) FreeStyle Janette 14 Day [place] - 01/10/2020 12:00:00 AM EST eCW1 ([facility]) FreeStyle Janette 14 Day [place] - 01/10/2020 12:00:00 AM EST eCW1 ([facility]) FreeStyle Janette 14 Day [place] - 01/10/2020 12:00:00 AM EST eCW1 ([facility]) FreeStyle Janette 14 Day [place] - 01/10/2020 12:00:00 AM EST eCW1 ([facility]) FreeStyle Janette 14 Day [place] - 01/10/2020 12:00:00 AM EST eCW1 ([facility]) FreeStyle Janette 14 Day [place] - 01/10/2020 12:00:00 AM EST eCW1 ([facility]) FreeStyle Janette 14 Day [place] - 01/10/2020 12:00:00 AM EST eCW1 ([facility]) FreeStyle Janette 14 Day [place] - 01/10/2020 12:00:00 AM EST eCW1 ([facility]) FreeStyle Janette 14 Day [place] - 01/10/2020 12:00:00 AM EST eCW1 ([facility]) FreeStyle Janette 14 Day [place] - 01/10/2020 12:00:00 AM EST eCW1 ([facility]) FreeStyle Janette 14 Day [place] - 01/10/2020 12:00:00 AM EST eCW1 ([facility]) FreeStyle Janette 14 Day [place] - 01/10/2020 12:00:00 AM EST eCW1 ([facility]) FreeStyle Janette 14 Day [place] - 01/10/2020 12:00:00 AM EST eCW1 ([facility]) FreeStyle Janette 14 Day [place] - 01/10/2020 12:00:00 AM EST eCW1 ([facility]) FreeStyle Janette 14 Day [place] - 01/10/2020 12:00:00 AM EST eCW1 ([facility]) FreeStyle Janette 14 Day [place] - 01/10/2020 12:00:00 AM EST eCW1 ([facility]) FreeStyle Janette 14 Day [place] - 01/10/2020 12:00:00 AM EST eCW1 ([facility]) FreeStyle Janette 14 Day [place] - 01/10/2020 12:00:00 AM EST eCW1 ([facility]) FreeStyle Janette 14 Day [place] - 01/10/2020 12:00:00 AM EST eCW1 ([facility]) 3 ML Insulin Glargine 100 UNT/ML Pen Injector [Lantus] 12/06/2019 12:00:00 AM EDT [facility] Insulin, Aspart, Human 100 UNT/ML Injectable Solution 03/20/2017 12:00:00 AM EST [facility] Spironolactone 25 MG Oral Tablet 06/13/2016 12:00:00 AM EDT [facility] atorvastatin 40 MG Oral Tablet 03/24/2016 12:00:00 AM EST [facility] TORSEMIDE PO 10/17/2014 12:00:00 AM EDT [facility] PARoxetine (PAXIL) 40 MG tablet 10/17/2014 12:00:00 AM EDT [facility] gabapentin 300 MG Oral Capsule 10/17/2014 12:00:00 AM EDT [facility] ferrous sulfate 325 MG Oral Tablet 10/17/2014 12:00:00 AM EDT [facility] Cyclobenzaprine hydrochloride 10 MG Oral Tablet 10/17/2014 12:00:00 AM EDT [facility] carvedilol 12.5 MG Oral Tablet 10/17/2014 12:00:00 AM EDT [facility] Aspirin 81 MG Oral Tablet [facility] Ascorbic Acid 60 MG / Calcium Pantothena te 10 MG / D-BIOTIN 0.3 MG / Folic Acid 0.8 MG / Niacinamide 20 MG / pyridoxine 10 MG / Riboflavin 1.7 MG / Thiamine 1.5 MG / Vitamin B 12 0.006 MG Oral Tablet [Prashant-Nicolas] [facility] Insulin Glargine 100 UNT/ML Injectable Solution [facility] Amlodipine 5 MG Oral Tablet [facility] Insulin Glargine 100 UNT/ML Injectable Solution [facility] Linagliptin 5 MG Oral Tablet [facility] 24 HR Isosorbide Mononitrate 30 MG Extended Release Oral Tablet [facility] Calcitriol 0.62238 MG Oral Capsule [facility] Minocycline 100 MG Oral Tablet eCW1 ([facility]) Minocycline 100 MG Oral Tablet eCW1 ([facility])
[2020-12-06 17:02] VITALS: BP 137/64
[2020-12-06 17:22] LABS: BASO % 0.3 % (0.0-1.0); EOS # 0.1 10^3/uL (0.0-0.5); EOS % 2.4 % (0.0-3.0); HEMATOCRIT 29.7 % (36.0-47.0); HEMOGLOBIN 9.3 g/dl (12.0-15.5); LYMPH # 0.8 10^3/uL (1.5-5.0); LYMPH % 13.2 % (24.0-44.0); MEAN CORPUSCULAR HEMOGLOBIN 33.2 pg (27.0-33.0); MEAN CORPUSCULAR HGB CONC 31.3 g/dl (32.0-36.5); MEAN CORPUSCULAR VOLUME 106.1 fl (80.0-96.0); MONO # 0.3 10^3/uL (0.0-0.8); MONO % 5.8 % (2.0-8.0); NEUTROPHILS # 4.5 10^3/uL (1.5-8.5); NEUTROPHILS % 77.8 % (36.0-66.0); PLATELET COUNT, AUTOMATED 132 10^3/uL (150-450); WHITE BLOOD COUNT 5.8 10^3/uL (4.0-10.0)
[2020-12-06 17:53] LABS: ALBUMIN 2.7 GM/DL (3.2-5.2); BILIRUBIN,DIRECT 0.2 MG/DL (0.0-0.2); BILIRUBIN,TOTAL 0.7 MG/DL (0.2-1.0); C REACTIVE PROTEIN QUANTITATIV 2.21 MG/DL (0.00-0.30); CALCIUM LEVEL 8.3 MG/DL (8.8-10.2); CREATININE FOR GFR 2.41 MG/DL (0.55-1.30); GLOMERULAR FILTRATION RATE 21.3 (>45); POTASSIUM SERUM 3.9 MEQ/L (3.5-5.1); TOTAL PROTEIN 5.6 GM/DL (6.4-8.2)
[2020-12-06 18:04] LABS: ERYTHROCYTE SEDIMENTATION RATE 63 mm/hr (0-30)
[2020-12-06] MEDS ORDERED: ceFAZolin 1GM VIAL (J0690 PER 500MG) IM ONE (18:35)
[2020-12-06] MEDS ORDERED: DOXYCYCLINE HYCLATE 100MG TABLET PO ONE (18:35)
--- OUTSIDE RECORDS SUMMARY | 2020-12-06 18:53 | CCD ---
Author Author [facility] Organization [facility] Address Unknown Phone Unavailable Care Team Providers Care Home Office Claim Specialist Name Role Phone Kapil Cornell MD Unavailable [...] Unavailable Yvonne SOLIS Unavailable Unavailable Thankachan, Reeba TELECOMMUNICATIONS LINE MECHANIC Unavailable Unavailable Thankachan, Reeba TELECOMMUNICATIONS LINE MECHANIC Unavailable Unavailable Thankachan, Reeba TELECOMMUNICATIONS LINE MECHANIC Unavailable Unavailable Thankachan, Reeba TELECOMMUNICATIONS LINE MECHANIC Unavailable Unavailable Thankachan, Reeba TELECOMMUNICATIONS LINE MECHANIC Unavailable Unavailable Thankachan, Reeba TELECOMMUNICATIONS LINE MECHANIC Unavailable Unavailable Thankachan, Reeba TELECOMMUNICATIONS LINE MECHANIC Unavailable Unavailable Thankachan, Reeba TELECOMMUNICATIONS LINE MECHANIC Unavailable Unavailable Thankachan, Reeba TELECOMMUNICATIONS LINE MECHANIC Unavailable Unavailable Thankachan, Reeba TELECOMMUNICATIONS LINE MECHANIC Unavailable Unavailable Thankachan, Reeba TELECOMMUNICATIONS LINE MECHANIC Unavailable Unavailable Thankachan, Reeba TELECOMMUNICATIONS LINE MECHANIC Unavailable Unavailable Thankachan, Reeba TELECOMMUNICATIONS LINE MECHANIC Unavailable Unavailable Thankachan, Reeba TELECOMMUNICATIONS LINE MECHANIC Unavailable Unavailable Thankachan, Reeba TELECOMMUNICATIONS LINE MECHANIC Unavailable Unavailable Thankachan, Reeba TELECOMMUNICATIONS LINE MECHANIC Unavailable Unavailable Thankachan, Reeba TELECOMMUNICATIONS LINE MECHANIC Unavailable Unavailable Thankachan, Reeba TELECOMMUNICATIONS LINE MECHANIC Unavailable Unavailable Thankachan, Reeba TELECOMMUNICATIONS LINE MECHANIC Unavailable Unavailable Thankachan, Reeba TELECOMMUNICATIONS LINE MECHANIC Unavailable Unavailable Thankachan, Reeba TELECOMMUNICATIONS LINE MECHANIC Unavailable Unavailable Thankachan, Reeba TELECOMMUNICATIONS LINE MECHANIC Unavailable Unavailable Thankachan, Reeba TELECOMMUNICATIONS LINE MECHANIC Unavailable Unavailable Thankachan, Reeba TELECOMMUNICATIONS LINE MECHANIC Unavailable Unavailable Thankachan, Reeba TELECOMMUNICATIONS LINE MECHANIC Unavailable Unavailable Thankachan, Reeba TELECOMMUNICATIONS LINE MECHANIC Unavailable Unavailable Thankachan, Reeba TELECOMMUNICATIONS LINE MECHANIC Unavailable Unavailable Thankachan, Reeba TELECOMMUNICATIONS LINE MECHANIC Unavailable Unavailable Thankachan, Reeba TELECOMMUNICATIONS LINE MECHANIC Unavailable Unavailable Thankachan, Reeba TELECOMMUNICATIONS LINE MECHANIC Unavailable Unavailable Thankachan, Reeba TELECOMMUNICATIONS LINE MECHANIC Unavailable Unavailable Thankachan, Reeba TELECOMMUNICATIONS LINE MECHANIC Unavailable Unavailable Thankachan, Reeba TELECOMMUNICATIONS LINE MECHANIC Unavailable Unavailable Thankachan, Reeba TELECOMMUNICATIONS LINE MECHANIC Unavailable Unavailable Thankachan, Reeba TELECOMMUNICATIONS LINE MECHANIC Unavailable Unavailable Thankachan, Reeba TELECOMMUNICATIONS LINE MECHANIC Unavailable Unavailable Thankachan, Reeba TELECOMMUNICATIONS LINE MECHANIC Unavailable Unavailable Thankachan, Reeba TELECOMMUNICATIONS LINE MECHANIC Unavailable Unavailable Thankachan, Reeba TELECOMMUNICATIONS LINE MECHANIC Unavailable Unavailable Thankachan, Reeba TELECOMMUNICATIONS LINE MECHANIC Unavailable Unavailable Thankachan, Reeba TELECOMMUNICATIONS LINE MECHANIC Unavailable Unavailable Thankachan, Reeba TELECOMMUNICATIONS LINE MECHANIC Unavailable Unavailable Thankachan, Reeba TELECOMMUNICATIONS LINE MECHANIC Unavailable Unavailable Thankachan, Reeba TELECOMMUNICATIONS LINE MECHANIC Unavailable Unavailable Thankachan, Reeba TELECOMMUNICATIONS LINE MECHANIC Unavailable Unavailable Thankachan, Reeba TELECOMMUNICATIONS LINE MECHANIC Unavailable Unavailable Thankachan, Reeba TELECOMMUNICATIONS LINE MECHANIC Unavailable Unavailable Thankachan, Reeba TELECOMMUNICATIONS LINE MECHANIC Unavailable Unavailable Cederstrand, Roro Schwab MD Unavailable [...] Unavailable Unavailable SHABAN, M EMAN Unavailable Unavailable Davie, V DWIGHT PA-C Unavailable Unavailable Davie, V DWIGHT PA-C Unavailable Unavailable Davie, V DWIGHT PA-C Unavailable Unavailable Sarah, V DWIGHT PA-C Unavailable Unavailable Sarah, V DWIGHT PA-C Unavailable Unavailable Davie, V DWIGHT PA-C Unavailable Unavailable Davie, V DWIGHT PA-C Unavailable Unavailable Davie, V DWIGHT PA-C Unavailable Unavailable Sarah, V DWIGHT PA-C Unavailable Unavailable Davie, V DWIGHT PA-C Unavailable Unavailable Davie, V DWIGHT PA-C Unavailable Unavailable Davie, V DWIGHT PA-C Unavailable Unavailable Davie, V DWIGHT PA-C Unavailable Unavailable Sarah, V [...] Yvonne Asencio MD Unavailable Birchenough, L Maureen TRUST EVALUATION SUPERVISOR Unavailable Unavailable Birchenough, L Maureen TRUST EVALUATION SUPERVISOR Unavailable Unavailable Birchenough, L Maureen TRUST EVALUATION SUPERVISOR Unavailable Unavailable Birchenough, L Maureen TRUST EVALUATION SUPERVISOR Unavailable Unavailable Birchenough, L Maureen TRUST EVALUATION SUPERVISOR Unavailable Unavailable Birchenough, L Maureen TRUST EVALUATION SUPERVISOR Unavailable Unavailable Birchenough, L Maureen TRUST EVALUATION SUPERVISOR Unavailable Unavailable Birchenough, L Maureen TRUST EVALUATION SUPERVISOR Unavailable Unavailable Birchenough, L Maureen TRUST EVALUATION SUPERVISOR Unavailable Unavailable Birchenough, L Maureen TRUST EVALUATION SUPERVISOR Unavailable Unavailable Birchenough, L Maureen TRUST EVALUATION SUPERVISOR Unavailable Unavailable Birchenough, L Maureen TRUST EVALUATION SUPERVISOR Unavailable Unavailable Birchenough, L Maureen TRUST EVALUATION SUPERVISOR Unavailable Unavailable Birchenough, L Maureen TRUST EVALUATION SUPERVISOR Unavailable Unavailable Birchenough, L Maureen TRUST EVALUATION SUPERVISOR Unavailable Unavailable Birchenough, L Maureen TRUST EVALUATION SUPERVISOR Unavailable Unavailable Birchenough, L Maureen TRUST EVALUATION SUPERVISOR Unavailable Unavailable Birchenough, L Maureen TRUST EVALUATION SUPERVISOR Unavailable Unavailable Birchenough, L Maureen TRUST EVALUATION SUPERVISOR Unavailable Unavailable Birchenough, L Maureen TRUST EVALUATION SUPERVISOR Unavailable Unavailable Birchenough, L Maureen TRUST EVALUATION SUPERVISOR Unavailable Unavailable Birchenough, L Maureen TRUST EVALUATION SUPERVISOR Unavailable Unavailable Birchenough, L Maureen TRUST EVALUATION SUPERVISOR Unavailable Unavailable Birchenough, L Maureen TRUST EVALUATION SUPERVISOR Unavailable Unavailable Birchenough, L Maureen TRUST EVALUATION SUPERVISOR Unavailable Unavailable Birchenough, L Maureen TRUST EVALUATION SUPERVISOR Unavailable Unavailable Birchenough, L Maureen TRUST EVALUATION SUPERVISOR Unavailable Unavailable Birchenough, L Maureen TRUST EVALUATION SUPERVISOR Unavailable Unavailable Birchenough, L Maureen TRUST EVALUATION SUPERVISOR Unavailable Unavailable Birchenough, L Maureen TRUST EVALUATION SUPERVISOR Unavailable Unavailable Birchenough, L Maureen TRUST EVALUATION SUPERVISOR Unavailable Unavailable Birchenough, L Maureen TRUST EVALUATION SUPERVISOR Unavailable Unavailable Birchenough, L Maureen TRUST EVALUATION SUPERVISOR Unavailable Unavailable Birchenough, L Maureen TRUST EVALUATION SUPERVISOR Unavailable Unavailable Birchenough, L Maureen TRUST EVALUATION SUPERVISOR Unavailable Unavailable Re-disclosure Warning The records that [...] is protected by Article 27-F of the [facility] Public Health law. If you continue you may have access to information: Regarding HIV / AIDS; Provided by facilities licensed or operated by the [facility] Office of Mental Health; or Provided by the [facility] Office for People With Developmental Disabilities. If such information is present, then the following [facility] mandated warning applies: This information has [...] law may result in a fine or chcf sentence or both. A general authorization for the release of medical or other information is NOT sufficient authorization for further disc losure. Allergies and Adverse Reactions Type Description Substance Reaction Status Data Source(s ) Drug allergy ADHESIVE TAPE ADHESIVE TAPE RASH [facility] Encounters Encounter Providers Location Date Indications Data Source(s ) Outpatient Attender: Paige Cardenas NP 01/08/2021 12:00: 00 AM [facility] Outpatient Attender: STEPHANY Fang/Marylin/Honorio/Re indl 11/29/2020 10:45:00 AM EDT [facility] Outpatient Attender: MD Cris Solis MDAttender: CRIS ALEXIS 11/27/2020 12:00:00 AM [facility] Unknown [address] [facility] [place] [address] 11/21/2020 12:00:00 AM EDT [facility] ([facility]) Unknown [address] [facility] [place] [address] 11/19/2020 12:00:00 AM EDT [facility]CW1 ([facility]) [place] [address] [facility] [place] [address] 11/13/2020 12:00:00 AM EDT eCW1 ([facility]) Outpatient Attender: STEPHANY Fang/Marylin/Honorio/Re indl 11/08/2020 01:45:00 PM EDT [facility] ([facility]) [place] [address] [facility] [place] [address] 11/06/2020 12:00:00 AM EDT eCW1 ([facility]) [place] [address] [facility] [place] [address] 11/05/2020 12:00:00 AM EDT eCW1 ([facility]) Unknown [address] [facility] [place] [address] 11/04/2020 12:00:00 AM EDT eCW1 ([facility]) Outpatient [address] [facility] [place] [address] 10/25/2020 12:00:00 AM EDT [facility] ([facility]) [place] [address] [facility] [place] [address] 10/22/2020 12:00:00 AM EDT [facility]) Outpatient Attender: Patricia HodgesAttender: PATRICIA PRIYANKA 10/18/2020 12:00:00 AM [facility] Unknown [address] [facility] [place] [address] 10/14/2020 12:00:00 AM EDT [facility]CW1 [facility]) Outpatient Attender: NICOLÁS CARVALHO [id number] 09/25/2020 12:00:00 AM [facility] Outpatient Referrer: DWIGHT OLIVO-SJPAWILDA 12:00:00 AM EDT [facility] [place] [address] [facility] [place] [address] 09/17/2020 12:00:00 AM EDT [facility] ([facility]) [place] [address] [facility] [place] [address] 09/13/2020 12:00:00 AM EDT eCW1 ([facility]) Outpatient Attender: Maureen Velázquez RNPConsultant: Amanda Cornell MD 07/30/2020 12:47:00 PM EDT - 07/30/2020 01:47:00 PM EDT [facility] Outpatient [address] [facility] [place] [address] 07/26/2020 12:00:00 AM EDT eCW1 ([facility]) Outpatient Attender: DWIGHT OLIVO-SJP 01:18:38 PM EDT - 07/17/2020 02:49:[address] [facility] Unknown [address] [facility] [place] [address] 07/04/2020 12:00:00 AM EDT eCW1 ([facility]) [place] [address] [facility] [place] [address] 06/27/2020 12:00:00 AM EDT eCW1 ([facility] [place] [address] [facility] [place] [address] 06/25/2020 12:00:00 AM EDT eCW1 ([facility] [place] [address] [facility] [place] [address] 06/25/2020 12:00:00 AM EDT eCW1 ([facility]) [place] [address] [facility] [place] [address] 06/25/2020 12:00:00 AM EDT eCW1 ([facility]) Unknown [address] [facility] [place] [address] 06/15/2020 12:00:00 AM EDT eCW1 ([facility]) Outpatient Attender: Josselin Fang/Marylin/Honorio/ Reindl 06/04/2020 04:00:00 PM EDT [facility] ([facility] [place] [address] [facility] [place] [address] 05/25/2020 12:00:00 AM EDT eCW1 ([facility]) Outpatient Attender: Mario Fang/Marylin/Honorio/Re indl 05/24/2020 01:00:00 PM EDT [facility] ([facility] [place] [address] [facility] [place] [address] 05/21/2020 12:00:00 AM EDT eCW1 ([facility]) Outpatient [address] [facility] [place] [address] 05/14/2020 12:00:00 AM EDT [facility]CW1 ([facility]) Unknown [address] [facility] [place] [address] 05/09/2020 12:00:00 AM EDT eCW1 ([facility]) Outpatient Attender: Mario Fang/Marylin/Honorio/Re indl 05/03/2020 12:15:00 PM EST [facility] ([facility] [place] [address] [facility] [place] [address] 04/18/2020 12:00:00 AM EST eCW1 ([facility]) Unknown [address] [facility] [place] [address] 04/18/2020 12:00:00 AM EST eCW1 ([facility]) Unknown [address] [facility] [place] [address] 04/09/2020 12:00:00 AM EST eCW1 ([facility]) [place] [address] [facility] [place] [address] 04/07/2020 12:00:00 AM EST eCW1 ([facility]) Outpatient Attender: Clari Fang/Marylin/Honorio/R eindl 04/02/2020 10:30:00 AM EST [facility] ([facility] [place] [address] [facility] [place] [address] 04/02/2020 12:00:00 AM EST eCW1 ([facility]) Unknown [address] [facility] [place] [address] 03/22/2020 12:00:00 AM EST eCW1 ([facility]) Unknown [address] [facility] [place] [address] 03/16/2020 12:00:00 AM EST eCW1 ([facility]) [place] [address] [facility] [place] [address] 03/06/2020 12:00:00 AM EST eCW1 ([facility]) [place] [address] [facility] [place] [address] 02/02/2020 12:00:00 AM EST eCW1 ([facility]) [place] [address] [facility] [place] [address] 01/26/2020 12:00:00 AM EST eCW1 ([facility]) [place] [address] [facility] [place] [address] 01/23/2020 12:00:00 AM EST eCW1 ([facility]) Unknown [address] [facility] [place] [address] 01/19/2020 12:00:00 AM EST eCW1 ([facility]) [place] [address] [facility] [place] [address] 01/15/2020 12:00:00 AM EST eCW1 ([facility]) Unknown [address] [facility] [place] [address] 01/11/2020 12:00:00 AM EST eCW1 ([facility]) Unknown [address] [facility] [address] [place] [address] 01/11/2020 12:00:00 AM EST eCW1 ([facility]) Outpatient [address] [facility] [place] [address] 01/10/2020 12:00:00 AM EST eCW1 ([facility]) [place] [address] [facility] [place] [address] 01/02/2020 12:00:00 AM EST eCW1 ([facility]) Unknown [address] [facility] [place] [address] 01/01/2020 12:00:00 AM EST eCW1 ([facility]) Outpatient [address] [facility] [place] [address] 12/30/2019 12:00:00 AM EST eCW1 ([facility]) Outpatient Attender: DWIGHT OLIVO-SJELVA 06/2019 12:00:00 AM EST - 12/29/2019 04:00:46 PM EST [facility] Outpatient [address] [facility] [place] [address] 12/23/2019 12:00:00 AM EDT eCW1 ([facility]) Unknown [address] [facility] [place] [address] 12/16/2019 12:00:00 AM EDT eCW1 ([facility]) Unknown [address] [facility] [place] [address] 12/13/2019 12:00:00 AM EDT eCW1 ([facility]) [place] [address] [facility] [place] [address] 11/15/2019 12:00:00 AM EDT eCW1 ([facility]) Unknown [address] [facility] [place] [address] 11/15/2019 12:00:00 AM EDT eCW1 ([facility]) Unknown [address] [facility] [place] [address] 11/15/2019 12:00:00 AM EDT eCW1 ([facility]) Immunizations Vaccine Date Status Description Data Source(s) COVID-19 VACCINE Moderna 05/14/2020 12:00:00 AM EDT completed [facility] Vaccine Series Complete: YESThis Data wa s Submitted to [facility] Via [facility]. COVID-19 VACCINE, MRNA-1273, LNP-S (MODERNA)/PF 05/14/2020 1 2:00:00 AM EDT completed [facility] COVID-19 VACCINE, MRNA-1273, LNP-S (MODERNA)/PF 04/19/2020 1 2:00:00 AM EST completed [facility] 12/23/2019 04:40:00 PM EDT completed e CW1 ([facility]) 12/23/2019 04:40:00 PM EDT completed e CW1 (Counts Include [facility]) 12/23/2019 04:40:00 PM EDT completed e CW1 (Counts Include [facility]) 12/23/2019 04:40:00 PM EDT completed e CW1 (Counts Include [facility]) 12/23/2019 04:40:00 PM EDT completed e CW1 (Counts Include [facility]) 12/23/2019 04:40:00 PM EDT completed e CW1 (Counts Include [facility]) 12/23/2019 04:40:00 PM EDT completed e CW1 (Counts Include [facility]) 12/23/2019 04:40:00 PM EDT completed e CW1 (Counts Include [facility]) 12/23/2019 04:40:00 PM EDT completed e CW1 (Counts Include [facility]) 12/23/2019 04:40:00 PM EDT completed e CW1 (Counts Include [facility]) 12/23/2019 04:40:00 PM EDT completed e CW1 (Counts Include [facility]) 12/23/2019 04:40:00 PM EDT completed e CW1 (Counts Include [facility]) 12/23/2019 04:40:00 PM EDT completed e CW1 (Counts Include [facility]) 12/23/2019 04:40:00 PM EDT completed e CW1 (Counts Include [facility]) 12/23/2019 04:40:00 PM EDT completed e CW1 (Counts Include [facility]) 12/23/2019 04:40:00 PM EDT completed e CW1 (Counts Include [facility]) 12/23/2019 04:40:00 PM EDT completed e CW1 (Counts Include [facility]) 12/23/2019 04:40:00 PM EDT completed e CW1 (Counts Include [facility]) 12/23/2019 04:40:00 PM EDT completed e CW1 (Counts Include [facility]) 12/23/2019 04:40:00 PM EDT completed e CW1 (Counts Include [facility]) 12/23/2019 04:40:00 PM EDT completed e CW1 (Counts Include [facility]) 12/23/2019 04:40:00 PM EDT completed e CW1 (Counts Include [facility]) 12/23/2019 04:40:00 PM EDT completed e CW1 (Counts Include [facility]) 12/23/2019 04:40:00 PM EDT completed e CW1 (Counts Include [facility]) 12/23/2019 04:40:00 PM EDT completed e CW1 (Counts Include [facility]) 12/23/2019 04:40:00 PM EDT completed e CW1 (Counts Include [facility]) 12/23/2019 04:40:00 PM EDT completed e CW1 (Counts Include [facility]) 12/23/2019 04:40:00 PM EDT completed e CW1 (Counts Include [facility]) 12/23/2019 04:40:00 PM EDT completed e CW1 (Counts Include [facility]) 12/23/2019 04:40:00 PM EDT completed e CW1 (Counts Include [facility]) 12/23/2019 04:40:00 PM EDT completed e CW1 (Counts Include [facility]) 12/23/2019 04:40:00 PM EDT completed e CW1 (Counts Include [facility]) 12/23/2019 04:40:00 PM EDT completed e CW1 (Counts Include [facility]) 12/23/2019 04:40:00 PM EDT completed e CW1 (Counts Include [facility]) 12/23/2019 04:40:00 PM EDT completed e CW1 (Counts Include [facility]) 12/23/2019 04:40:00 PM EDT completed e CW1 (Counts Include [facility]) 12/23/2019 04:40:00 PM EDT completed e CW1 (Counts Include [facility]) 12/23/2019 04:40:00 PM EDT completed e CW1 (Counts Include [facility]) 12/23/2019 04:40:00 PM EDT completed e CW1 (Counts Include [facility]) 12/23/2019 04:40:00 PM EDT completed e CW1 (Counts Include [facility]) 12/23/2019 04:40:00 PM EDT completed e CW1 (Counts Include [facility]) 12/23/2019 04:40:00 PM EDT completed e CW1 (Counts Include [facility]) 12/23/2019 04:40:00 PM EDT completed e CW1 (Counts Include [facility]) INFLUENZA VIRUS VACCINE QUADRIVAL SPLIT (65 [...] 2 TABLETS FOR 4 DAYS SOLD: 11/09/2020 [facility] predniSONE 10 MG (48) predniSONE 10 MG (48) 11/07/2020 12:00:00 AM EDT active predniSONE 10 MG (48) eCW1 ( Counts Include [facility]) predniSONE 10 MG (48) predniSONE 10 MG (48) 11/07/2020 12:00:00 AM EDT active predniSONE 10 MG (48) eCW1 ( Counts Include [facility]) predniSONE 10 MG (48) predniSONE 10 MG (48) 11/07/2020 12:00:00 AM EDT active predniSONE 10 MG (48) eCW1 ( Counts Include [facility]) predniSONE 10 MG (48) predniSONE 10 MG (48) 11/07/2020 12:00:00 AM EDT active predniSONE 10 MG (48) eCW1 ( Counts Include [facility]) predniSONE 10 MG (48) predniSONE 10 MG (48) 11/07/2020 12:00:00 AM EDT active predniSONE 10 MG (48) eCW1 ( Counts Include [facility]) predniSONE 10 MG (48) predniSONE 10 MG (48) 11/07/2020 12:00:00 AM EDT active predniSONE 10 MG (48) eCW1 ( Counts Include [facility]) 25 mg 11/06/2020 12:00:00 AM EDT [...] REMOVE AFT ER 12 HOURS SOLD: 10/26/2020 [facility] 33 gauge 10/26/2020 12:00:00 AM EDT misc 100 USE DIRECTED TO TEST BLOOD GLUCOSE 2-4 TIMES DAILY USE DIRECTED TO TEST BLOOD GLUCOSE 2-4 TIMES DAILY SOLD: 10/26/2020 [facility] Lidocaine Hydrochloride 0.05 MG/MG Transdermal Patch [ Lidoderm] Lidoderm 5 % Lidoderm 5 % 10/25/2020 12:00:00 AM EDT active Lidoderm 5 % eCW1 (Counts Include [facility]) valacyclovir 1000 MG Oral Tablet valACYclovir HCl 1 GM valAC Yclovir HCl 1 GM 10/25/2020 12:00:00 AM EDT 1.0 {tablet} active valACYclovir HCl 1 GM eCW1 (Counts Include [facility]) valacyclovir 1000 MG Oral Tablet valACYclovir HCl 1 GM valAC Yclovir HCl 1 GM 10/25/2020 12:00:00 AM EDT 1.0 {tablet} active valACYclovir HCl 1 GM eCW1 (Counts Include [facility]) valacyclovir 1000 MG Oral Tablet valACYclovir HCl 1 GM valAC Yclovir HCl 1 GM 10/25/2020 12:00:00 AM EDT 1.0 {tablet} active valACYclovir HCl 1 GM eCW1 (Counts Include [facility]) Test Strips - UNK 10/25/2020 12:00:00 AM EDT acti ve Test Strips - eCW1 (Counts Include [facility]) Alcohol Pads 70 % Alcohol Pads 70 % 10/25/2020 12:00:00 AM EDT active Alcohol Pads 70 % eCW1 ([facility]) Alcohol Pads 70 % Alcohol Pads 70 % 10/25/2020 12:00:00 AM EDT active Alcohol Pads 70 % eCW1 ([facility]) Lancets - Lancets - 10/25/2020 12:00:00 AM EDT act marquez Lancets - eCW1 (Counts [facility]) Alcohol Pads 70 % Alcohol Pads 70 % 10/25/2020 12:00:00 AM EDT active Alcohol Pads 70 % eCW1 ([facility]) Lancets - Lancets - 10/25/2020 12:00:00 AM EDT act marquez Lancets - eCW1 (Counts Include [facility]) Test Strips - UNK 10/25/2020 12:00:00 AM EDT acti ve Test Strips - eCW1 (Counts Include [facility]) Test Strips - UNK 10/25/2020 12:00:00 AM EDT acti ve Test Strips - eCW1 (Counts Include [facility]) Lidocaine Hydrochloride 0.05 MG/MG Transdermal Patch [ Lidoderm] Lidoderm 5 % Lidoderm 5 % 10/25/2020 12:00:00 AM EDT active Lidoderm 5 % eCW1 (Counts Include [facility]) Lancets - Lancets - 10/25/2020 12:00:00 AM EDT act marquez Lancets - eCW1 (Counts Include [facility]) Lancets - Lancets - 10/25/2020 12:00:00 AM EDT act marquez Lancets - eCW1 (Counts Include [address] [facility]) valacyclovir 1000 MG Oral Tablet valACYclovir HCl 1 GM valAC Yclovir HCl 1 GM 10/25/2020 12:00:00 AM EDT 1.0 {tablet} active valACYclovir HCl 1 GM eCW1 (Counts Include [address] [facility]) Test Strips - UNK 10/25/2020 12:00:00 AM EDT acti ve Test Strips - eCW1 (Counts Include [address] [facility]) valacyclovir 1000 MG Oral Tablet valACYclovir HCl 1 GM valAC Yclovir HCl 1 GM 10/25/2020 12:00:00 AM EDT 1.0 {tablet} active valACYclovir HCl 1 GM eCW1 (Counts Include [address] [facility]) valacyclovir 1000 MG Oral Tablet valACYclovir HCl 1 GM valAC Yclovir HCl 1 GM 10/25/2020 12:00:00 AM EDT 1.0 {tablet} active valACYclovir HCl 1 GM eCW1 (Counts Include [address] [facility]) Lancets - Lancets - 10/25/2020 12:00:00 AM EDT act marquez Lancets - eCW1 (Counts Include [address] [facility]) Lidocaine Hydrochloride 0.05 MG/MG Transdermal Patch [ Lidoderm] Lidoderm 5 % Lidoderm 5 % 10/25/2020 12:00:00 AM EDT active Lidoderm 5 % eCW1 (Counts Include [address] [facility]) Lidocaine Hydrochloride 0.05 MG/MG Transdermal Patch [ Lidoderm] Lidoderm 5 % Lidoderm 5 % 10/25/2020 12:00:00 AM EDT active Lidoderm 5 % eCW1 (Counts Include [address] [facility]) Test Strips - UNK 10/25/2020 12:00:00 AM EDT acti ve Test Strips - eCW1 (Counts Include [address] [facility]) Alcohol Pads 70 % Alcohol Pads 70 % 10/25/2020 12:00:00 AM EDT active Alcohol Pads 70 % eCW1 ([facility]) Lancets - Lancets - 10/25/2020 12:00:00 AM EDT act marquez Lancets - eCW1 (Counts Include [address] [facility]) Lidocaine Hydrochloride 0.05 MG/MG Transdermal Patch [ Lidoderm] Lidoderm 5 % Lidoderm 5 % 10/25/2020 12:00:00 AM EDT active Lidoderm 5 % eCW1 (Counts Include [address] [facility]) Alcohol Pads 70 % Alcohol Pads 70 % 10/25/2020 12:00:00 AM EDT active Alcohol Pads 70 % eCW1 ([facility]) Alcohol Pads 70 % Alcohol Pads 70 % 10/25/2020 12:00:00 AM EDT active Alcohol Pads 70 % eCW1 ([facility]) Lidocaine Hydrochloride 0.05 MG/MG Transdermal Patch [ Lidoderm] Lidoderm 5 % Lidoderm 5 % 10/25/2020 12:00:00 AM EDT active Lidoderm 5 % eCW1 (Counts Include [address] [facility]) Test Strips - UNK 10/25/2020 12:00:00 AM EDT acti ve Test Strips - eCW1 (Counts Include [address] [facility]) Alcohol Pads 70 % Alcohol Pads 70 % 10/25/2020 12:00:00 AM EDT active Alcohol Pads 70 % eCW1 ([facility]) Lidocaine Hydrochloride 0.05 MG/MG Transdermal Patch [ Lidoderm] Lidoderm 5 % Lidoderm 5 % 10/25/2020 12:00:00 AM EDT active Lidoderm 5 % eCW1 (Counts Include [address] [facility]) Lancets - Lancets - 10/25/2020 12:00:00 AM EDT act marquez Lancets - eCW1 (Counts Include [address] [facility]) valacyclovir 1000 MG Oral Tablet valACYclovir HCl 1 GM valAC Yclovir HCl 1 GM 10/25/2020 12:00:00 AM EDT 1.0 {tablet} active valACYclovir HCl 1 GM eCW1 (Counts Include [address] [facility]) Test Strips - UNK 10/25/2020 12:00:00 AM EDT acti ve Test Strips - eCW1 (Counts Include [address] [facility]) valacyclovir 1000 MG Oral Tablet VALACYCLOVIR [...] DAILY DOSE = 4 TABLETS SOLD: 10/22/2020 [facility] 50 mg 10/21/2020 12:00:00 AM EDT [...] {tablet} suspended Fluconazole 150 M G eCW1 (Counts Include [address] [facility]) Fluconazole 150 MG Oral Tablet Fluconazole 150 MG 09/18/2020 12:00: 00 AM EDT 1.0 {tablet} suspended Fluconazole 150 M G eCW1 (Counts Include [address] [facility]) Fluconazole 150 MG Oral Tablet Fluconazole 150 MG 09/18/2020 12:00: 00 AM EDT 1.0 {tablet} suspended Fluconazole 150 M G eCW1 (Counts Include [address] [facility]) Fluconazole 150 MG Oral Tablet Fluconazole 150 MG 09/18/2020 12:00: 00 AM EDT 1.0 {tablet} active Fluconazole 150 MG eCW1 (Counts Include [address] [facility]) 17 gram/dose 09/18/2020 12:00:00 AM EDT powder 510 MIX 17GRAMS(1CAPFUL) IN WATER OR JUICE AND DRINK ONCE DAILY NEEDED MIX 17GRAMS(1CAPFUL) IN WATER OR JUICE AND DRINK ONCE DAILY NEEDED SOLD: 09/19/2020 [facility] Fluconazole 150 MG Oral Tablet Fluconazole 150 MG 09/18/2020 12:00: 00 AM EDT 1.0 {tablet} suspended Fluconazole 150 M G eCW1 (Counts Include [address] [facility]) Fluconazole 150 MG Oral Tablet Fluconazole 150 MG 09/18/2020 12:00: 00 AM EDT 1.0 {tablet} suspended Fluconazole 150 M G eCW1 (Counts Include [address] [facility]) 25 mcg (1,000 unit) 09/18/2020 12:00:00 AM EDT tablet 90 TAKE ONE TABLET BY MOUTH EVERY DAY TAKE ONE TABLET BY MOUTH EVERY DAY SOLD: 09/19/2020 [facility] Fluconazole 150 MG Oral Tablet Fluconazole 150 MG 09/18/2020 12:00: 00 AM EDT 1.0 {tablet} suspended Fluconazole 150 M G eCW1 (Counts Include [address] [facility]) Fluconazole 150 MG Oral Tablet Fluconazole 150 MG 09/18/2020 12:00: 00 AM EDT 1.0 {tablet} active Fluconazole 150 MG eCW1 (Counts Include [address] [facility]) Fluconazole 150 MG Oral Tablet Fluconazole 150 MG 09/18/2020 12:00: 00 AM EDT 1.0 {tablet} suspended Fluconazole 150 M G eCW1 (Counts Include [address] [facility]) Fluconazole 150 MG Oral Tablet Fluconazole 150 MG 09/18/2020 12:00: 00 AM EDT 1.0 {tablet} active Fluconazole 150 MG eCW1 (Counts Include [address] [facility]) 250 mg 09/04/2020 12:00:00 AM EDT [...] THE SKIN SOLD: 08/24/2020 [facility] Calcitriol 0.27742 MG Oral Capsule 0.25 mcg CALCITRIOL 06/09/2020 [...] WITH MEALS SOLD: 05/10/2020 [facility] Calcitriol 0.79367 MG Oral Capsule 0.25 mcg CALCITRIOL 04/28/2020 [...] FreeStyl e Janette Sensor System - eCW1 (Counts Include [address] [facility]) FLASH GLUCOSE SENSOR 04/19/2020 12:00:00 AM EST kit 1 USE DIRECTED FOUR TIMES A DAY USE DIRECTED FOUR TIMES A DAY SOLD: 04/19/2020 [facility] FreeStyle Janette Sensor System - FreeStyle Janette Sensor Syste m - 04/19/2020 12:00:00 AM EST active FreeStyl e Janette Sensor System - eCW1 (Counts Include [address] [facility]) 3 ML Insulin, Aspart, Human 100 UNT/ML P en Injector [NovoLog] NovoLog Flexpen 100 UNIT/ML NovoLog Flexpen 100 UNIT/ML 04/09/2020 12:00:00 AM EST active NovoLog Flexpen 100 UNIT/ML eCW1 (Counts Include [address] [facility]) 3 ML Insulin, Aspart, Human 100 UNT/ML P en Injector [NovoLog] NovoLOG FlexPen 100 UNIT/ML NovoLOG FlexPen 100 UNIT/ML 04/09/2020 12:00:00 AM EST active NovoLOG FlexPen 100 UNIT/ML eCW1 (Counts Include [address] [facility]) 3 ML Insulin, Aspart, Human 100 UNT/ML P en Injector [NovoLog] NovoLOG FlexPen 100 UNIT/ML NovoLOG FlexPen 100 UNIT/ML 04/09/2020 12:00:00 AM EST active NovoLOG FlexPen 100 UNIT/ML eCW1 (Counts Include [address] [facility]) 3 ML Insulin, Aspart, Human 100 UNT/ML P en Injector [NovoLog] NovoLog Flexpen 100 UNIT/ML NovoLog Flexpen 100 UNIT/ML 04/09/2020 12:00:00 AM EST active NovoLog Flexpen 100 UNIT/ML eCW1 (Counts Include [address] [facility]) 3 ML Insulin, Aspart, Human 100 UNT/ML P en Injector [NovoLog] NovoLog Flexpen 100 UNIT/ML NovoLog Flexpen 100 UNIT/ML 04/09/2020 12:00:00 AM EST active NovoLog Flexpen 100 UNIT/ML eCW1 (Counts Include [address] [facility]) 3 ML Insulin, Aspart, Human 100 UNT/ML P en Injector [NovoLog] NovoLOG FlexPen 100 UNIT/ML NovoLOG FlexPen 100 UNIT/ML 04/09/2020 12:00:00 AM EST active NovoLOG FlexPen 100 UNIT/ML eCW1 (Counts Include [address] [facility]) 3 ML Insulin, Aspart, Human 100 UNT/ML P en Injector [NovoLog] NovoLog Flexpen 100 UNIT/ML NovoLog Flexpen 100 UNIT/ML 04/09/2020 12:00:00 AM EST active NovoLog Flexpen 100 UNIT/ML eCW1 (Counts Include [address] [facility]) 3 ML Insulin, Aspart, Human 100 UNT/ML P en Injector [NovoLog] NovoLog Flexpen 100 UNIT/ML NovoLog Flexpen 100 UNIT/ML 04/09/2020 12:00:00 AM EST active NovoLog Flexpen 100 UNIT/ML eCW1 (Counts Include [address] [facility]) 3 ML Insulin, Aspart, Human 100 UNT/ML P en Injector [NovoLog] NovoLOG FlexPen 100 UNIT/ML NovoLOG FlexPen 100 UNIT/ML 04/09/2020 12:00:00 AM EST active NovoLOG FlexPen 100 UNIT/ML eCW1 (Counts Include [address] [facility]) 3 ML Insulin, Aspart, Human 100 UNT/ML P en Injector [NovoLog] NovoLog Flexpen 100 UNIT/ML NovoLog Flexpen 100 UNIT/ML 04/09/2020 12:00:00 AM EST active NovoLog Flexpen 100 UNIT/ML eCW1 (Counts Include [address] [facility]) 3 ML Insulin, Aspart, Human 100 UNT/ML P en Injector [NovoLog] NovoLog Flexpen 100 UNIT/ML NovoLog Flexpen 100 UNIT/ML 04/09/2020 12:00:00 AM EST active NovoLog Flexpen 100 UNIT/ML eCW1 (Counts Include [address] [facility]) 3 ML Insulin, Aspart, Human 100 UNT/ML P en Injector [NovoLog] NovoLOG FlexPen 100 UNIT/ML NovoLOG FlexPen 100 UNIT/ML 04/09/2020 12:00:00 AM EST active NovoLOG FlexPen 100 UNIT/ML eCW1 (Counts Include [address] [facility]) 3 ML Insulin, Aspart, Human 100 UNT/ML P en Injector [NovoLog] NovoLog Flexpen 100 UNIT/ML NovoLog Flexpen 100 UNIT/ML 04/09/2020 12:00:00 AM EST active NovoLog Flexpen 100 UNIT/ML eCW1 (Counts Include [address] [facility]) 3 ML Insulin, Aspart, Human 100 UNT/ML P en Injector [NovoLog] NovoLog Flexpen 100 UNIT/ML NovoLog Flexpen 100 UNIT/ML 04/09/2020 12:00:00 AM EST active NovoLog Flexpen 100 UNIT/ML eCW1 (Counts Include [address] [facility]) 3 ML Insulin, Aspart, Human 100 UNT/ML P en Injector [NovoLog] NovoLOG FlexPen 100 UNIT/ML NovoLOG FlexPen 100 UNIT/ML 04/09/2020 12:00:00 AM EST active NovoLOG FlexPen 100 UNIT/ML eCW1 (Counts Include [address] [facility]) 3 ML Insulin, Aspart, Human 100 UNT/ML P en Injector [NovoLog] NovoLog Flexpen 100 UNIT/ML NovoLog Flexpen 100 UNIT/ML 04/09/2020 12:00:00 AM EST active NovoLog Flexpen 100 UNIT/ML eCW1 (Counts Include [address] [facility]) 3 ML Insulin, Aspart, Human 100 UNT/ML P en Injector [NovoLog] NovoLog Flexpen 100 UNIT/ML NovoLog Flexpen 100 UNIT/ML 04/09/2020 12:00:00 AM EST active NovoLog Flexpen 100 UNIT/ML eCW1 (Counts Include [address] [facility]) 3 ML Insulin, Aspart, Human 100 UNT/ML P en Injector [NovoLog] NovoLOG FlexPen 100 UNIT/ML NovoLOG FlexPen 100 UNIT/ML 04/09/2020 12:00:00 AM EST active NovoLOG FlexPen 100 UNIT/ML eCW1 (Counts Include [address] [facility]) 3 ML Insulin, Aspart, Human 100 UNT/ML P en Injector [NovoLog] NovoLog Flexpen 100 UNIT/ML NovoLog Flexpen 100 UNIT/ML 04/09/2020 12:00:00 AM EST active NovoLog Flexpen 100 UNIT/ML eCW1 (Counts Include [address] [facility]) 3 ML Insulin, Aspart, Human 100 UNT/ML P en Injector [NovoLog] NovoLOG FlexPen 100 UNIT/ML NovoLOG FlexPen 100 UNIT/ML 04/09/2020 12:00:00 AM EST active NovoLOG FlexPen 100 UNIT/ML eCW1 (Counts Include [address] [facility]) 3 ML Insulin, Aspart, Human 100 UNT/ML P en Injector [NovoLog] NovoLog Flexpen 100 UNIT/ML NovoLog Flexpen 100 UNIT/ML 04/09/2020 12:00:00 AM EST active NovoLog Flexpen 100 UNIT/ML eCW1 (Counts Include [address] [facility]) 3 ML Insulin, Aspart, Human 100 UNT/ML P en Injector [NovoLog] NovoLOG FlexPen 100 UNIT/ML NovoLOG FlexPen 100 UNIT/ML 04/09/2020 12:00:00 AM EST active NovoLOG FlexPen 100 UNIT/ML eCW1 (Counts Include [address] [facility]) 3 ML Insulin, Aspart, Human 100 UNT/ML P en Injector [NovoLog] NovoLOG FlexPen 100 UNIT/ML NovoLOG FlexPen 100 UNIT/ML 04/09/2020 12:00:00 AM EST active NovoLOG FlexPen 100 UNIT/ML eCW1 (Counts Include [address] [facility]) 3 ML Insulin, Aspart, Human 100 UNT/ML P en Injector [NovoLog] NovoLog Flexpen 100 UNIT/ML NovoLog Flexpen 100 UNIT/ML 04/09/2020 12:00:00 AM EST active NovoLog Flexpen 100 UNIT/ML eCW1 (Counts Include [address] [facility]) 3 ML Insulin, Aspart, Human 100 UNT/ML P en Injector [NovoLog] NovoLOG FlexPen 100 UNIT/ML NovoLOG FlexPen 100 UNIT/ML 04/09/2020 12:00:00 AM EST active NovoLOG FlexPen 100 UNIT/ML eCW1 (Counts Include [address] [facility]) 3 ML Insulin, Aspart, Human 100 UNT/ML P en Injector [NovoLog] NovoLOG FlexPen 100 UNIT/ML NovoLOG FlexPen 100 UNIT/ML 04/09/2020 12:00:00 AM EST active NovoLOG FlexPen 100 UNIT/ML eCW1 (Counts Include [address] [facility]) 300 mg 03/17/2020 12:00:00 AM EST [...] 12:00:00 AM EST active Wheelchair - eCW1 (Counts Include [facility]) Wheelchair - Wheelchair - 03/08/2020 12:00:00 AM EST active Wheelchair - eCW1 (Counts Include [address] [facility]) Wheelchair - Wheelchair - 03/08/2020 12:00:00 AM EST active Wheelchair - eCW1 (Counts Include [address] [facility]) Wheelchair - Wheelchair - 03/08/2020 12:00:00 AM EST active Wheelchair - eCW1 (Counts Include [address] [facility]) Wheelchair - Wheelchair - 03/08/2020 12:00:00 AM EST active Wheelchair - eCW1 (Counts Include [address] [facility]) Wheelchair - Wheelchair - 03/08/2020 12:00:00 AM EST active Wheelchair - eCW1 (Counts Include [address] [facility]) Wheelchair - Wheelchair - 03/08/2020 12:00:00 AM EST active Wheelchair - eCW1 (Counts Include [address] [facility]) Wheelchair - Wheelchair - 03/08/2020 12:00:00 AM EST active Wheelchair - eCW1 (Counts Include [address] [facility]) Wheelchair - Wheelchair - 03/08/2020 12:00:00 AM EST active Wheelchair - eCW1 (Counts Include [address] [facility]) Wheelchair - Wheelchair - 03/08/2020 12:00:00 AM EST active Wheelchair - eCW1 (Counts Include [address] [facility]) Wheelchair - Wheelchair - 03/08/2020 12:00:00 AM EST active Wheelchair - eCW1 (Counts Include [address] [facility]) Wheelchair - Wheelchair - 03/08/2020 12:00:00 AM EST active Wheelchair - eCW1 (Counts Include [address] [facility]) Wheelchair - Wheelchair - 03/08/2020 12:00:00 AM EST active Wheelchair - eCW1 (Counts Include [address] [facility]) Wheelchair - Wheelchair - 03/08/2020 12:00:00 AM EST active Wheelchair - eCW1 (Counts Include [address] [facility]) Wheelchair - Wheelchair - 03/08/2020 12:00:00 AM EST active Wheelchair - eCW1 (Counts Include [address] [facility]) Wheelchair - Wheelchair - 03/08/2020 12:00:00 AM EST active Wheelchair - eCW1 (Counts Include [address] [facility]) Wheelchair - Wheelchair - 03/08/2020 12:00:00 AM EST active Wheelchair - eCW1 (Counts Include [address] [facility]) Wheelchair - Wheelchair - 03/08/2020 12:00:00 AM EST active Wheelchair - eCW1 (Counts Include [address] [facility]) Wheelchair - Wheelchair - 03/08/2020 12:00:00 AM EST active Wheelchair - eCW1 (Counts Include [address] [facility]) Wheelchair - Wheelchair - 03/08/2020 12:00:00 AM EST active Wheelchair - eCW1 (Counts Include [address] [facility]) Wheelchair - Wheelchair - 03/08/2020 12:00:00 AM EST active Wheelchair - eCW1 (Counts Include [address] [facility]) Wheelchair - Wheelchair - 03/08/2020 12:00:00 AM EST active Wheelchair - eCW1 (Counts Include [address] [facility]) Wheelchair - Wheelchair - 03/08/2020 12:00:00 AM EST active Wheelchair - eCW1 (Counts Include [address] [facility]) Wheelchair - Wheelchair - 03/08/2020 12:00:00 AM EST active Wheelchair - eCW1 (Counts Include [address] [facility]) Wheelchair - Wheelchair - 03/08/2020 12:00:00 AM EST active Wheelchair - eCW1 (Counts Include [address] [facility]) Wheelchair - Wheelchair - 03/08/2020 12:00:00 AM EST active Wheelchair - eCW1 (Counts Include [address] [facility]) Wheelchair - Wheelchair - 03/08/2020 12:00:00 AM EST active Wheelchair - eCW1 (Counts Include [address] [facility]) Wheelchair - Wheelchair - 03/08/2020 12:00:00 AM EST active Wheelchair - eCW1 (Counts Include [address] [facility]) Wheelchair - Wheelchair - 03/08/2020 12:00:00 AM EST active Wheelchair - eCW1 (Counts Include [address] [facility]) Wheelchair - Wheelchair - 03/08/2020 12:00:00 AM EST active Wheelchair - eCW1 (Counts Include [facility]) 300 mg 02/02/2020 12:00:00 AM EST [...] Drugs Nystatin 100 UNT/MG Topical Powder Nystatin 130542 UNI T/GM Nystatin 274433 UNIT/GM 01/16/2020 12:00:00 AM EST 1.0 {application} suspended Nystatin 169133 UNIT/GM eCW1 (Counts Include [address] [facility]) Nystatin 100 UNT/MG Topical Powder Nystatin 021108 UNI T/GM Nystatin 372609 UNIT/GM 01/16/2020 12:00:00 AM EST 1.0 {application} active Nystatin 649868 UNIT/GM eCW1 (Counts Include [address] [facility]) Nystatin 100 UNT/MG Topical Powder Nystatin 021944 UNI T/GM Nystatin 972433 UNIT/GM 01/16/2020 12:00:00 AM EST 1.0 {application} active Nystatin 276726 UNIT/GM eCW1 (Counts Include [address] [facility]) Nystatin 100 UNT/MG Topical Powder 100,000 unit/gram [facility]STAT[facility] N 01/16/2020 12:00:00 AM EST powder 15 APPLY TWO TIMES A DAY EXT ERNALLY APPLY TWO TIMES A DAY EXTERNALLY SOLD: 01/17/2020 [facility] Nystatin 100 UNT/MG Topical Powder Nystatin 906048 UNI T/GM Nystatin 183220 UNIT/GM 01/16/2020 12:00:00 AM EST 1.0 {application} active Nystatin 618758 UNIT/GM eCW1 (Counts Include [address] [facility]) Nystatin 100 UNT/MG Topical Powder Nystatin 718821 UNI T/GM Nystatin 175881 UNIT/GM 01/16/2020 12:00:00 AM EST 1.0 {application} suspended Nystatin 281162 UNIT/GM eCW1 (Counts Include [address] [facility]) Nystatin 100 UNT/MG Topical Powder Nystatin 615371 UNI T/GM Nystatin 402424 UNIT/GM 01/16/2020 12:00:00 AM EST 1.0 {application} active Nystatin 525495 UNIT/GM eCW1 (Counts Include [address] [facility]) Nystatin 100 UNT/MG Topical Powder Nystatin 399108 UNI T/GM Nystatin 342675 UNIT/GM 01/16/2020 12:00:00 AM EST 1.0 {application} active Nystatin 902560 UNIT/GM eCW1 (Counts Include [address] [facility]) Nystatin 100 UNT/MG Topical Powder Nystatin 106343 UNI T/GM Nystatin 559648 UNIT/GM 01/16/2020 12:00:00 AM EST 1.0 {application} suspended Nystatin 685093 UNIT/GM eCW1 (Counts Include [address] [facility]) Nystatin 100 UNT/MG Topical Powder Nystatin 365977 UNI T/GM Nystatin 612956 UNIT/GM 01/16/2020 12:00:00 AM EST 1.0 {application} suspended Nystatin 716966 UNIT/GM eCW1 (Counts Include [address] [facility]) Nystatin 100 UNT/MG Topical Powder Nystatin 099171 UNI T/GM Nystatin 506634 UNIT/GM 01/16/2020 12:00:00 AM EST 1.0 {application} active Nystatin 312667 UNIT/GM eCW1 (Counts Include [address] [facility]) Nystatin 100 UNT/MG Topical Powder Nystatin 374130 UNI T/GM Nystatin 797746 UNIT/GM 01/16/2020 12:00:00 AM EST 1.0 {application} active Nystatin 409678 UNIT/GM eCW1 (Counts Include [address] [facility]) Nystatin 100 UNT/MG Topical Powder Nystatin 820628 UNI T/GM Nystatin 936321 UNIT/GM 01/16/2020 12:00:00 AM EST 1.0 {application} suspended Nystatin 446105 UNIT/GM eCW1 (Counts Include [address] [facility]) Nystatin 100 UNT/MG Topical Powder Nystatin 963642 UNI T/GM Nystatin 328940 UNIT/GM 01/16/2020 12:00:00 AM EST 1.0 {application} active Nystatin 310362 UNIT/GM eCW1 (Counts Include [address] [facility]) Nystatin 100 UNT/MG Topical Powder Nystatin 204382 UNI T/GM Nystatin 794542 UNIT/GM 01/16/2020 12:00:00 AM EST 1.0 {application} active Nystatin 488048 UNIT/GM eCW1 (Counts Include [address] [facility]) Nystatin 100 UNT/MG Topical Powder Nystatin 457464 UNI T/GM Nystatin 064729 UNIT/GM 01/16/2020 12:00:00 AM EST 1.0 {application} suspended Nystatin 883879 UNIT/GM eCW1 (Counts Include [facility]) Nystatin 100 UNT/MG Topical Powder Nystatin 119245 UNI T/GM Nystatin 841385 UNIT/GM 01/16/2020 12:00:00 AM EST 1.0 {application} active Nystatin 843979 UNIT/GM eCW1 (Counts Include [address] [facility]) Nystatin 100 UNT/MG Topical Powder Nystatin 271576 UNI T/GM Nystatin 551914 UNIT/GM 01/16/2020 12:00:00 AM EST 1.0 {application} suspended Nystatin 269270 UNIT/GM eCW1 (Counts Include [address] [facility]) Nystatin 100 UNT/MG Topical Powder Nystatin 602159 UNI T/GM Nystatin 383384 UNIT/GM 01/16/2020 12:00:00 AM EST 1.0 {application} active Nystatin 021663 UNIT/GM eCW1 (Counts Include [address] [facility]) Nystatin 100 UNT/MG Topical Powder Nystatin 348055 UNI T/GM Nystatin 418448 UNIT/GM 01/16/2020 12:00:00 AM EST 1.0 {application} suspended Nystatin 039864 UNIT/GM eCW1 (Counts Include [address] [facility]) Nystatin 100 UNT/MG Topical Powder Nystatin 703548 UNI T/GM Nystatin 092033 UNIT/GM 01/16/2020 12:00:00 AM EST 1.0 {application} active Nystatin 450384 UNIT/GM eCW1 (Counts Include [address] [facility]) Nystatin 100 UNT/MG Topical Powder Nystatin 905035 UNI T/GM Nystatin 611017 UNIT/GM 01/16/2020 12:00:00 AM EST 1.0 {application} active Nystatin 898182 UNIT/GM eCW1 (Counts Include [address] [facility]) Nystatin 100 UNT/MG Topical Powder Nystatin 388289 UNI T/GM Nystatin 448127 UNIT/GM 01/16/2020 12:00:00 AM EST 1.0 {application} suspended Nystatin 310788 UNIT/GM eCW1 (Counts Include [address] [facility]) Nystatin 100 UNT/MG Topical Powder Nystatin 744065 UNI T/GM Nystatin 116782 UNIT/GM 01/16/2020 12:00:00 AM EST 1.0 {application} active Nystatin 767266 UNIT/GM eCW1 (Counts Include [address] [facility]) Nystatin 100 UNT/MG Topical Powder Nystatin 276161 UNI T/GM Nystatin 983925 UNIT/GM 01/16/2020 12:00:00 AM EST 1.0 {application} active Nystatin 090151 UNIT/GM eCW1 (Counts Include [address] [facility]) Nystatin 100 UNT/MG Topical Powder Nystatin 209002 UNI T/GM Nystatin 187451 UNIT/GM 01/16/2020 12:00:00 AM EST 1.0 {application} suspended Nystatin 101654 UNIT/GM eCW1 (Counts Include [address] [facility]) Nystatin 100 UNT/MG Topical Powder Nystatin 178294 UNI T/GM Nystatin 455421 UNIT/GM 01/16/2020 12:00:00 AM EST 1.0 {application} active Nystatin 235774 UNIT/GM eCW1 (Counts Include [address] [facility]) Nystatin 100 UNT/MG Topical Powder Nystatin 346100 UNI T/GM Nystatin 887853 UNIT/GM 01/16/2020 12:00:00 AM EST 1.0 {application} active Nystatin 461686 UNIT/GM eCW1 (Counts Include [facility]) Nystatin 100 UNT/MG Topical Powder Nystatin 125819 UNI T/GM Nystatin 804498 UNIT/GM 01/16/2020 12:00:00 AM EST 1.0 {application} active Nystatin 446570 UNIT/GM eCW1 (Counts Include [address] [facility]) Nystatin 100 UNT/MG Topical Powder Nystatin 776634 UNI T/GM Nystatin 110400 UNIT/GM 01/16/2020 12:00:00 AM EST 1.0 {application} active Nystatin 626720 UNIT/GM eCW1 (Counts Include 234 Beds At The [facility]) Nystatin 100 UNT/MG Topical Powder Nystatin 516251 UNI T/GM Nystatin 165307 UNIT/GM 01/16/2020 12:00:00 AM EST 1.0 {application} suspended Nystatin 919523 UNIT/GM eCW1 ([facility]s Include [facility]) Nystatin 100 UNT/MG Topical Powder Nystatin 494769 UNI T/GM Nystatin 513989 UNIT/GM 01/16/2020 12:00:00 AM EST 1.0 {application} active Nystatin 250080 UNIT/GM eCW1 (Counts Include [facility]) Nystatin 100 UNT/MG Topical Powder Nystatin 769727 UNI T/GM Nystatin 202178 UNIT/GM 01/16/2020 12:00:00 AM EST 1.0 {application} suspended Nystatin 875862 UNIT/GM eCW1 (Counts Include [facility]) Nystatin 100 UNT/MG Topical Powder Nystatin 295841 UNI T/GM Nystatin 944331 UNIT/GM 01/16/2020 12:00:00 AM EST 1.0 {application} active Nystatin 266589 UNIT/GM eCW1 (Counts Include [facility]) Nystatin 100 UNT/MG Topical Powder Nystatin 719937 UNI T/GM Nystatin 012152 UNIT/GM 01/16/2020 12:00:00 AM EST 1.0 {application} active Nystatin 921465 UNIT/GM eCW1 (Counts Include [facility]) Nystatin 100 UNT/MG Topical Powder Nystatin 546152 UNI T/GM Nystatin 285201 UNIT/GM 01/16/2020 12:00:00 AM EST 1.0 {application} active Nystatin 007034 UNIT/GM eCW1 (Counts Include [facility]) Nystatin 100 UNT/MG Topical Powder Nystatin 780674 UNI T/GM Nystatin 944489 UNIT/GM 01/16/2020 12:00:00 AM EST 1.0 {application} active Nystatin 510225 UNIT/GM eCW1 (Counts Include [facility]) Nystatin 100 UNT/MG Topical Powder Nystatin 957009 UNI T/GM Nystatin 456630 UNIT/GM 01/16/2020 12:00:00 AM EST 1.0 {application} active Nystatin 347839 UNIT/GM eCW1 (Counts Include [facility]) Nystatin 100 UNT/MG Topical Powder Nystatin 196423 UNI T/GM Nystatin 590120 UNIT/GM 01/16/2020 12:00:00 AM EST 1.0 {application} active Nystatin 793973 UNIT/GM eCW1 (Counts Include [facility]) 29 gauge x 1/2" 01/11/2020 12:00:00 AM EST needle 360 USE 1 FOUR TIMES A DAY USE 1 FOUR TIMES A DAY SOLD: 01/13/2020 [facility] Janette 14 Day [place] - FreeStyle Janette 14 Day [place] r - 01/10/2020 12:00:00 AM EST active FreeStyl e Janette 14 Day [place] - eCW1 (Counts Include [facility]) FreeStyle Janette 14 Day [place] - FreeStyle Janette 14 Day Re[place] r - 01/10/2020 12:00:00 AM EST active FreeStyl e [place]ette 14 Day [place] - eCW1 (Counts Include [facility]) FreeStyle Janette 14 Day [place] - FreeStyle Janette 14 Day Re[place] r - 01/10/2020 12:00:00 AM EST active FreeStyl e [place]ette 14 Day [place] - eCW1 (Counts Include [facility]) FreeStyle Janette 14 Day [place] - FreeStyle Janette 14 Day Re[place] r - 01/10/2020 12:00:00 AM EST active FreeStyl e [place] 14 Day [place] - eCW1 (Counts Include [facility]) FreeStyle Janette 14 Day [place] - FreeStyle Janette 14 Day [place] 01/10/2020 12:00:00 AM EST active FreeStyl e [place] 14 Day [place] - eCW1 (Counts Include [facility]) FreeStyle Janette 14 Day [place] - FreeStyle Janette 14 Day Re[place] r 01/10/2020 12:00:00 AM EST active FreeStyl e [place] 14 Day [place] - eCW1 (Counts Include [facility]) FreeStyle Janette 14 Day [place] - FreeStyle Janette 14 Day [place] 01/10/2020 12:00:00 AM EST active FreeStyl e [place] 14 Day [place] - eCW1 (Counts Include [facility]) FreeStyle Janette 14 Day [place] - FreeStyle Janette 14 Day Re[place] 01/10/2020 12:00:00 AM EST active FreeStyl e [place] 14 Day [place] - eCW1 (Counts Include [facility]) FreeStyle Janette 14 Day [place] - FreeStyle Janette 14 Day [place] 01/10/2020 12:00:00 AM EST active FreeStyl e [place] 14 Day [place] - eCW1 (Counts Include [facility]) FreeStyle Janette 14 Day [place] - FreeStyle Janette 14 Day Reade 01/10/2020 12:00:00 AM EST active FreeStyl e [place] 14 Day [place] - eCW1 (Counts Include [facility]) FreeStyle Janette 14 Day [place] - FreeStyle Janette 14 Day [place] 01/10/2020 12:00:00 AM EST active FreeStyl e [place] 14 Day [place] - eCW1 (Counts Include [facility]) FreeStyle Janette 14 Day [place] - FreeStyle Janette 14 Day Reade 01/10/2020 12:00:00 AM EST active FreeStyl e [place] 14 Day [place] - eCW1 (Counts Include [facility]) FreeStyle Janette 14 Day [place] - FreeStyle Janette 14 Day [place] 01/10/2020 12:00:00 AM EST active FreeStyl e [place] 14 Day [place] - eCW1 (Counts Include [facility]) FreeStyle Janette 14 Day [place] - FreeStyle Janette 14 Day Reade 01/10/2020 12:00:00 AM EST active FreeStyl e [place] 14 Day [place] - eCW1 (Counts Include [facility]) FreeStyle Janette 14 Day [place] - FreeStyle Janette 14 Day Reade 01/10/2020 12:00:00 AM EST active FreeStyl e [place] 14 Day [place] - eCW1 (Counts Include [facility]) FreeStyle Janette 14 Day [place] - FreeStyle Janette 14 Day Reade 01/10/2020 12:00:00 AM EST active FreeStyl e [place] 14 Day [place] - eCW1 (Counts Include [facility]) FreeStyle Janette 14 Day [place] - FreeStyle Janette 14 Day Reade 01/10/2020 12:00:00 AM EST active FreeStyl e [place] 14 Day [place] - eCW1 (Counts Include [facility]) FreeStyle Janette 14 Day [place] - FreeStyle Janette 14 Day Reade 01/10/2020 12:00:00 AM EST active FreeStyl e [place] 14 Day [place] - eCW1 (Counts Include [facility]) FreeStyle Janette 14 Day [place] - FreeStyle Janette 14 Day Reade 01/10/2020 12:00:00 AM EST active FreeStyl e [place] 14 Day [place] - eCW1 (Counts Include [facility]) FreeStyle Janette 14 Day [place] - FreeStyle Janette 14 Day Reade 01/10/2020 12:00:00 AM EST active FreeStyl e [place] 14 Day [place] - eCW1 (Counts Include [facility]) FreeStyle Janette 14 Day [place] - FreeStyle Janette 14 Day Reade 01/10/2020 12:00:00 AM EST active FreeStyl e [place] 14 Day [place] - eCW1 (Counts Include [facility]) FreeStyle Janette 14 Day [place] - FreeStyle Janette 14 Day Reade 01/10/2020 12:00:00 AM EST active FreeStyl e [place] 14 Day [place] - eCW1 (Counts Include [facility]) FreeStyle Janette 14 Day [place] - FreeStyle Janette 14 Day Reade 01/10/2020 12:00:00 AM EST active FreeStyl e [place] 14 Day [place] - eCW1 (Counts Include [facility]) FreeStyle Janette 14 Day [place] - FreeStyle Janette 14 Day Reade 01/10/2020 12:00:00 AM EST active FreeStyl e [place] 14 Day [place] - eCW1 (Counts Include [facility]) FreeStyle Janette 14 Day [place] - FreeStyle Janette 14 Day [place] 01/10/2020 12:00:00 AM EST active FreeStyl e [place] 14 Day [place] - eCW1 (Counts Include [facility]) FreeStyle Janette 14 Day [place] - FreeStyle Janette 14 Day [place]ade 01/10/2020 12:00:00 AM EST active FreeStyl e [place] 14 Day [place] - eCW1 (Counts Include [facility]) FreeStyle Janette 14 Day [place] - FreeStyle Janette 14 Day Reade 01/10/2020 12:00:00 AM EST active FreeStyl e [place] 14 Day [place] - eCW1 (Counts Include [facility]) FreeStyle Janette 14 Day [place] - FreeStyle Janette 14 Day Reade 01/10/2020 12:00:00 AM EST active FreeStyl e [place] 14 Day [place] - eCW1 (Counts Include [facility]) FreeStyle Janette 14 Day [place] - FreeStyle Janette 14 Day [place] 01/10/2020 12:00:00 AM EST active FreeStyl e [place] 14 Day [place] - eCW1 (Counts Include [facility]) FreeStyle Janette 14 Day [place] - FreeStyle Janette 14 Day Reade 01/10/2020 12:00:00 AM EST active FreeStyl e [place] 14 Day [place] - eCW1 (Counts Include [facility]) FreeStyle Janette 14 Day [place] - FreeStyle Janette 14 Day Reade 01/10/2020 12:00:00 AM EST active FreeStyl e [place] 14 Day [place] - eCW1 (Counts Include [facility]) FreeStyle Jan[place] 14 Day [place] - FreeStyle Janette 14 Day [place] 01/10/2020 12:00:00 AM EST active FreeStyl e [place] 14 Day [place] - eCW1 (Counts Include [facility]) FreeStyle Janette 14 Day [place] - FreeStyle Jan[place] 14 Day [place]ade 01/10/2020 12:00:00 AM EST active FreeStyl e [place] 14 Day [place] - eCW1 (Counts Include [facility]) FreeStyle Jan[place] 14 Day [place] - FreeStyle Jan[place] 14 Day [place] 01/10/2020 12:00:00 AM EST active FreeStyl e [place] 14 Day [place] - eCW1 (Counts Include [facility]) FreeStyle Jan[place] 14 Day [place] - FreeStyle Jan[place] 14 Day [place] 01/10/2020 12:00:00 AM EST active FreeStyl e [place] 14 Day [place] - eCW1 (Counts Include [facility]) FreeStyle [place] 14 Day [place] - FreeStyle Jan[place] 14 Day [place] 01/10/2020 12:00:00 AM EST active FreeStyl e [place] 14 Day [place] - eCW1 (Counts Include [facility]) FreeStyle Janette 14 Day [place] - FreeStyle Jan[place] 14 Day Re[place] 01/10/2020 12:00:00 AM EST active FreeStyl e [place] 14 Day [place] - eCW1 (Counts Include [facility]) FreeStyle [place] 14 Day [place] - FreeStyle Jan[place] 14 Day [place] 01/10/2020 12:00:00 AM EST active FreeStyl e [place] 14 Day [place] - eCW1 (Counts Include [facility]) FreeStyle [place] 14 Day [place] - FreeStyle Jan[place] 14 Day [place] 01/10/2020 12:00:00 AM EST active FreeStyl e [place] 14 Day [place] - eCW1 (Counts Include [facility]) FreeStyle Jan[place] 14 Day [place] - FreeStyle Jan[place] 14 Day [place] 01/10/2020 12:00:00 AM EST active FreeStyl e [place] 14 Day [place] - eCW1 (Counts Include [facility]) FreeStyle Jan[place] 14 Day [place] - FreeStyle Janette 14 Day [place] 01/10/2020 12:00:00 AM EST active FreeStyl e [place] 14 Day [place] - eCW1 (Counts Include [facility]) 100 mg 01/03/2020 12:00:00 AM EST [...] MORNING AND 30 UNITS IN THE EVENING [facility] 0.8 mg 12/02/2019 12:00:00 AM EDT tablet [...] 018 12:00:00 AM EST aborted NOVOLOG SOLN [facility] Spironolactone 25 MG Oral Tablet spironolactone (ALDAC TONE) 25 MG tablet spironolactone (ALDACTONE) 25 MG tablet 06/13/2016 12:00:00 AM EDT 25 mg Oral aborted Take 1 tablet (25 mg tota l) by mouth daily [facility] atorvastatin 40 MG Oral Tablet atorvastatin (LIPITOR) 40 MG tablet atorvastatin (LIPITOR) 40 MG tablet 03/24/2016 12:00:00 AM EST 40 mg Oral aborted Take 40 mg by mouth [facility] PARoxetine (PAXIL) 40 MG tablet [address]-9 10/17/2014 12:00:00 AM EDT aborted [facility] HCL [facility] ferr[facility] 325 MG Oral Tablet ferrous sulfate 325 (65 FE) MG tablet ferrous sulfate 325 (65 FE) MG tablet 10/17/2014 12:00:00 AM EDT 325 mg Or al aborted Take 325 mg by mouth [facility] gabapentin 300 MG Oral Capsule gabapentin (NEURONTIN) 300 MG capsule gabapentin (NEURONTIN) 300 MG capsule 10/17/2014 12:00:00 AM EDT 300 mg Oral aborted Take 300 mg by mouth [facility] TORSEMIDE PO 10/17/2014 12:00:00 AM EDT abort [facility] 12.5 MG Oral Tablet carvedilol (COREG) 12.5 MG tablet carvedilol (COREG) 12.5 MG tablet 10/17/2014 12:00:00 AM EDT 12.5 mg Oral aborted Take 12.5 mg by mouth [facility] Cyclobenzaprine hydrochloride 10 MG Oral Tablet cyclobenzaprine (FLEXERIL) 10 MG tablet cyclobenzaprine (FLEXERIL) 10 MG tablet 10/17/2014 12:00:00 AM E DT 10 mg Oral aborted Take 10 mg by mouth [facility] Insulin Glargine 100 UNT/ML Injectable S olution insulin glargine (INSULIN GLARGINE) 100 UNIT/ML injection insulin glargine (INSULIN GLARGINE) 100 UNIT/ML injection 70 U Subcutaneous aborted Inject 70 Units under the skin daily morning [facility] Ascorbic Acid 60 MG / Calcium Pantothena [...] Take 1 tablet by mouth d aily [facility] Linagliptin 5 MG Oral Tablet Linagliptin (TRADJENTA) 5 MG TABS Linagliptin (TRADJENTA) 5 MG TABS 5 mg Oral aborted Ta ke 5 mg by mouth daily [facility] Minocycline 100 MG Oral Tablet Minocycline HCl 100 MG Minocyclin e HCl 100 MG 1.0 {tablet} active Minocycline HCl 100 MG eCW1 (Counts Include [facility]) Amlodipine 5 MG Oral Tablet amLODIPine (NORVASC) 5 MG tablet amLODIPine (NORVASC) 5 MG tablet 5 mg Oral aborted Ta ke 5 mg by mouth daily [facility] Insulin Glargine 100 UNT/ML Injectable S olution insulin glargine (INSULIN GLARGINE) 100 UNIT/ML injection insulin glargine (INSULIN GLARGINE) 100 UNIT/ML injection 60 U Subcutaneous aborted Inject 60 Units under the skin nightly [facility] 24 HR Isosorbide Mononitrate 30 MG Exten ded Release Oral Tablet isosorbide mononitrate (IMDUR) 30 MG 24 hr tablet isosorbide mononitrate (IMDUR) 30 MG 24 hr tablet 30 mg Oral aborted Take 30 mg by mouth daily [facility] Calcitriol 0.11799 MG Oral Capsule calcitriol (ROCALTR OL) 0.25 MCG capsule calcitriol (ROCALTROL) 0.25 MCG capsule 0.5 ug Oral aborted Take 0.5 mcg by mouth daily [facility] Minocycline 100 MG Oral Tablet Minocycline HCl 100 MG Minocyclin e HCl 100 MG 1.0 {tablet} active Minocycline HCl 100 MG eCW1 (Counts Include [facility]) Aspirin 81 MG Oral Tablet Aspirin Buf,QhItfw-FbApnj-Jj O, 81 MG TABS Aspirin Buf,KpUuop-LsBula-KkW, 81 MG TABS 81 mg Oral abor crys Take 81 mg by mouth [facility] Insurance Providers Payer name Policy type / Coverage type Policy ID Covered alliance party ID Covered alliance party's relationship to lipscomb Policy Lipscomb Plan Information [employer] [id number] SP [id number] [facility] [id number] SP [id number] [facility] [id number] SP [id number] [facility] [id number] SP [id number] [facility] [id number] SP [id number] [facility] [id number] SP [id number] [facility] [id number] SP [id number] [facility] [id number] SP [id number] MEDICARE A [id number] Self [id number] MEDICARE A [id number] Self [id number] A MEDICARE [id number] SP [id number] A MEDICARE A [id number] Self [id number] MEDICAID M [id number] Self [id number] OTHER B TRANSPLANT Self TRANSPLAN T MEDICAID [id number] Gala [id number] [employer] MEDICARE COMPLETE G [id number] Self [id number] [facility] MEDICARE [id number] Gala [id number] [facility] MEDICARE [id number] [id number] [employer] [id number] Gala [id number] [employer]ICARE [id number] MEDICAID S [id number] S [id number] [place] [id number] SP [id number] [facility] [id number] SP [id number] MEDICARE [id number] SP [id number] MEDICARE COMPLETE [id number] SP [id number] MEDICAID [id number] SP [id number] MEDICARE COMPLETE [id number] SP [id number] MEDICARE COMPLETE [id number] SP [id number] ANS-Medicare Part B [id number] ANSI-Medicare Part B [id number] ANSI-Medicaid [id number] ANSI-Medicare Part B [id number] ANSI-Medicare Part B [id number] ANSI-Medicaid [id number] ANSI-Medicare Part B [id number] ANSI-Medicare Part B [id number] ANSI-Medicaid [id number] ANSI-Medicaid [id number] ANSI-Medicare Part B [id number] ANSI-Medicare Part B [id number] [facility]-Med[facility] [id number] ANSI-Medicare Part B [id number] ANSI-Medicare Part B [id number] ANSI-Medicaid [id number] ANSI-Medicare Part B [id number] ANSI-Medicare Part B [id number] ANSI-Medicare Part B [id number] ANSI-Medicare Part B [id number] ANS-Medicaid [id number] ANSI-Medicare Part B [id number] ANSI-Medicare Part B [id number] ANSI-Medicaid [id number] ANSI-Medicaid [id number] ANSI-Medicare Part B [id number] ANSI-Medicare Part B [id number] ANSI-Medicare Part B [id number] ANSI-Medicare Part B [id number] ANSI-Medicaid [id number] ANSI-Medicare Part B [id number] ANSI-Medicaid [id number] ANSI-Medicare Part B [id number] ANSI-Medicaid [id number] ANSI-Medicare Part B [id number] ANSI-Medicare Part B [id number] ANSI-Medicaid [id number] ANSI-Medicare Part B [id number] ANSI-Medicare Part B [id number] ANSI-Medicare Part B [id number] ANSI-Medicare Part B [id number] ANSI-Medicaid [id number] ANSI-Medicare Part B [id number] ANSI-Medicaid [id number] ANSI-Medicare Part B [id number] ANSI-Medicaid [id number] ANSI-Medicare Part B [id number] ANSI-Medicare Part B [id number] ANSI-Medicare Part B [id number] ANSI-Medicare Part B [id number] ANSI-Medicaid [id number] ANSI-Medicaid [id number] ANSI-Medicare Part B [id number] ANSI-Medicare Part B [id number] ANSI-Medicare Part B [id number] ANSI-Medicare Part B [id number] ANSI-Medicaid [id number] ANSI-Medicare Part B [id number] ANSI-Medicare Part B [id number] ANSI-Medicaid [id number] ANSI-Medicare Part B [id number] ANSI-Medicaid [id number] ANSI-Medicare Part B [id number] ANSI-Medicare Part B [id number] ANSI-Medicare Part B [id number] ANSI-Medicaid [id number] ANSI-Medicaid [id number] ANSI-Medicare Part B [id number] ANSI-Medicare Part B [id number] ANSI-Medicare Part B [id number] ANSI-Medicaid [id number] ANSI-Medicare Part B [id number] MEDICARE [id number] Gala [id number] A SELF PAY UNAVAILABLE SP UNA[place]A BLE MEDICARE C [id number] S [id number] A MEDICAID UNAVAILABLE U[place] BLE MEDICAID W [id number] S [id number] MEDICARE M [id number] S [id number] A MEDICARE M [id number] S [id number] A MEDICARE M UNAVAILABLE S [place] BLE MEDICARE [id number] SP [id number] A [facility] [id number] SP [id number] [facility] [id number] SP [id number] SELF PAY UNAVAILABLE SP UNAVAILA BLE AETNA [id number] SP [id number] HUMANA GOLD [id number] SP [id number] MEDICARE [id number] SP [id number] A HUMANA GOLD [id number] SP [id number] [place] [id number] SP [id number] [facility] [id number] SP [id number] [facility] [id number] SP [id number] MEDICARE [id number] SP [id number] HUMANA GOLD [id number] SP [id number] MEDICARE [id number] Gala [id number] MEDICARE [id number] SP [id number] HUMANA GOLD PLUS -O/P [id number] MEDICARE COMPLETE [id number] SP [id number] MEDICARE COMPLETE [id number] SP [id number] [facility] [id number] SP [id number] SELF PAY ONLY [id number] SP [id number] [facility]) O [id number] S [id number] SELF PAY ONLY [id number] SP [id number] [facility] [id number] SP [id number] [facility] O [id number] S [id number] Problems, Conditions, and Diagnoses Code Display Name Description Problem Type Effective Dates Data Source(s) N281 Cyst of kidney, acquired Cyst of kidney, acquired Diag nosis 07/30/2020 12:47:00 PM EDT [facility] R339 Retention of urine, unspecified Retention of urine, un specified Diagnosis 07/30/2020 12:47:00 PM EDT [facility] N185 Chronic kidney disease, stage 5 Chronic kidney disease , stage 5 Diagnosis 07/30/2020 12:47:00 PM EDT [facility] Z68.38 Body mass index (BMI) 38.0-38.9, adult B julieth mass index (BMI) 38.0-38.9, adult Diagnosis 07/17/2020 01:18:38 PM EDT [facility] E66.01 Morbid (severe) obesity due to excess ca lories Morbid (severe) obesity due to excess ca Diagnosis 07/17/2020 01:18:38 PM EDT [facility] 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 E11.59 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 Type 2 diabetes mellitus with other circ Diagnosis 07/17/2020 01:18:38 PM EDT [facility] N28.9 Disorder of kidney and ureter, unspecifi ed Disorder of kidney and ureter, unspecifi Diagnosis 07/17/2020 01:18:38 PM EDT [facility] I25.10 Atherosclerotic heart diseas e of [place] coronary artery without angina pectoris Atherosclerotic heart disease of [place] Diagnosis 07/17/2020 01:18:38 PM EDT [facility] I50.32 Chronic diastolic (congestive) heart dayana lure Chronic diastolic (congestive) heart dayana Diagnosis 07/17/2020 01:18:38 PM EDT [facility] T82.858A Arteriovenous fistula stenosis Arteriovenous fistula s tenosis Problem 11/29/2020 12:00:00 AM EDT [facility] ([facility]) E55.9 [id number] Vitamin D deficiency Problem 11/19/2020 12:0 0:00 AM EDT eC ([facility]) E20.8 [id number] Secondary hypoparathyroidism Problem 021 12:00:00 AM EDT eC ([facility]) T82.898A Arteriovenous fistula occlusion Arteriovenous fi stula occlusion Problem 11/08/2020 12:00:00 AM EDT [facility] ([facility], ) I70.203 Atherosclerosis of arteries of the extre mities Atherosclerosis of arteries of the extremities Problem 11/08/2020 12:00:00 AM EDT MEDEN T ([facility], ) B02.9 Herpes zoster without complication Herpes zoster without complication Problem 11/08/2020 12:00:00 AM EDT [facility] ([facility], ) E11.22 [id number] 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 Problem 07/26/2020 12:00:00 AM EDT [facility] ([facility]) N18.5 [id number] Chronic kidney disease, stage 5 Problem 07/26/2020 12:00:00 AM EDT eCW ([facility]) Z89.512 [id number] History of left below knee amputation Problem 05/23/2020 12:00:00 AM EDT eCW1 ([facility]) I50.32 Chronic heart failure with preserved eje ction fraction Chronic heart failure with preserved ejection fraction [id number] 12/29/2019 12:00:00 AM [facility] E11.59 Type 2 diabetes mellitus with history tutor y disorder Type 2 diabetes mellitus with circulatory disorder [id number] 12/29/2019 12:00:00 AM [facility] E66.9 Class 2 obesity in adult Class 2 obesity in adult 6457 200012/29/2019 12:00:00 AM [facility] Surgeries/Procedures Procedure Description Date Indications Data Source(s) OFFICE OUTPATIENT VISIT 25 MINUTES 11/29/2020 12:00:00 AM EDT [facility] ([facility], ) OFFICE OUTPATIENT VISIT 25 MINUTES 11/08/2020 12:00:00 AM EDT [facility] ([facility], ) BASIC METABOLIC PANEL CALCIUM TOTAL <td>BASIC METABOLI C PANEL</td><td>Routine</td><td>06/22/2020</td><td></td><td> </td> 06/22/2020 12:00:00 AM EDT [facility] OFFICE OUTPATIENT VISIT 15 MINUTES 06/04/2020 12:00:00 AM EDT [facility] ([facility], ) INJECTION 1 TENDON SHEATH/LIGAMENT APONEUROSIS 021 12:00:00 AM EDT [facility] OFFICE OUTPATIENT VISIT 15 MINUTES 05/24/2020 12:00:00 AM EDT [facility] INJECTION 1 TENDON SHEATH/LIGAMENT APONEUROSIS 021 12:00:00 AM EST [facility] ([facility]) POCT AMB EKG <td>POCT AMB EKG</td><td>Veena cason</td><td>12/29/2019 5:12 PM EST</td><td> Coronary artery disease involving [place] coronary artery of [place] heart without angina pectoris</td><td> </td> 12/29/2019 10:12:00 PM EST Coronary artery disease involving [place] coronary artery of [place] heart without angina pectoris [facility] Coronary artery disease involving [place] coronary artery of [place] heart without angina pectoris Injection, ceftriaxone sodium, per 250 mg 12/23/2019 1 2:00:00 AM EDT eCW1 ([facility]) Results ID Date Data Source [id number] 12/01/2020 01:45:00 PM EDT [facility] Name Value Range Interpretation Code Description Data Faith rce(s) Supporting Document(s) Prothrombin Time 13.3 s 12.7-14.5 Normal (applies to non-numeric results) [facility] ([facility], ) Inr 0.97 Normal (applies to non-numeric resul ts) [facility] ([facility], ) THERAPUTIC HUMAN INR VALUES INDICATIONS NORMAL RANGES PROPHYLAXIS/TREATMENT OF: VENOUS THROMBOSIS 2.0-3.0 PULMONARY EMBOLISM 2.0-3.0 PREVENTION OF SYSTEMIC EMBOLISM FROM: TISSUE HEART VALVES 2.0-3.0 ACUTE MYOCARDIAL INFARCTION 2.0-3.0 VALVULAR HEART DISEASE 2.0-3.0 ATRIAL FIBRILLATION 2.0-3.0 MECHANICAL VALVES(HIGH RISK) 2.5-3.5 RECURRENT MYOCARDIAL INFARCTION 2.5-3.5 ID Date Data Source [id number] 12/01/2020 01:45:00 PM EDT [facility] ([facility]) Name Value Range Interpretation Code Description Data Faith rce(s) Supporting Document(s) aPTT in Platelet poor plasma by Coagulation assay 29.2 s 25.9-37.0 Normal (applies to non-numeric results) [facility] ([facility]) Platelets [#/volume] in Blood by Automated count Laboratory test resu lt [facility] ([facility]) ID Date Data Source [id number] 12/01/2020 01:45:00 PM EDT [facility] ([facility]) Name Value Range Interpretation Code Description Data Faith rce(s) Supporting Document(s) Glucose, Fasting 187 mg/dL 70-100 Above high normal [facility] ([facility]) Creatinine For GFR 2.13 mg/dL 0.55-1.30 Above high normal [facility] ([facility]) Blood Urea Nitrogen 17 mg/dL 7-18 Normal (applies to non-nume julien results) [facility] ([facility]) Glomerular Filtration Rate 24.5 Below low normal [facility] ([facility]) <content>Units are mL/min/1.73 m2</content>
<content></content>
<content>Chronic Kidney Disease Staging per NKF:</content>
<content></content>
<content>Stage I & II GFR >=60 Normal to Mildly Decreased</content>
<content>Stage III GFR 30- 59 Moderately Decreased</content>
<content>Stage IV GFR 15-29 Severely Decreased</content>
<content>Stage V GFR <15 Very Little GFR Left</content>
<content>ESRD GFR <15 on MEDICAL APPOINTMENT CLERK</content>
<content></content> Sodium Level 138 meq/L 136-145 Normal (applies to non-numeric res ults) [facility] ([facility]) Chloride Level 104 meq/L 98-107 Normal (applies to non-numeric r esults) [facility] ([facility]) Potassium Serum 4.6 meq/L 3.5-5.1 Normal (applies to non-numeric results) [facility] ([facility]) Anion Gap 2 meq/L 8-16 Below low normal [facility] ( [facility]) Calcium Level 8.8 mg/dL 8.8-10.2 Normal (applies to non-numeric re sults) [facility] ([facility]) Carbon Dioxide Level 32 meq/L 21-32 Normal (applies to non-num anne results) [facility] ([facility]) ID Date Data Source [id number] 12/01/2020 01:45:00 PM EDT [facility] ([facility]) Name Value Range Interpretation Code Description Data Faith rce(s) Supporting Document(s) White Blood Count 7.8 10 4.0-10.0 Normal (applies to non-numeri c results) [facility] ([facility]) Red Blood Count 2.98 10 4.00-5.40 Below low normal [facility] ([facility]) Mean Corpuscular Volume 103.7 fl 80.0-96.0 Above high normal [facility] ([facility]) Hematocrit 30.9 % 36.0-47.0 Below low normal [facility] ( [facility]) Hemoglobin 10.0 g/dL 12.0-15.5 Below low normal [facility] ( [facility]) Mean Corpuscular Hemoglobin 33.6 pg 27.0-33.0 Above high normal [facility] ([facility]) Mean Corpuscular HGB Conc 32.4 g/dL 32.0-36.5 Normal (applies to non-numeric results) [facility] ([place], [place])) Neutrophils % 69.3 % 36.0-66.0 Above high normal [facility] ([facility]) Platelet Count, Automated 137 10 150-450 Below low normal [facility] ([facility]) Red Cell Distribution Width 13.9 % 11.5-14.5 Norm al (applies to non-numeric results) [facility] ([facility]) Lymph % 17.8 % 24.0-44.0 Below low normal [facility] ( [facility]) Coffey % 7.9 % 2.0-8.0 Normal (applies to non-numeric resul ts) [facility] ([facility]) Eos % 3.2 % 0.0-3.0 Above high normal [facility] ([facility]) Immature Granulocyte % 1.3 % 0-3.0 Normal (applies to non-n umeric results) [facility] ([facility]) Baso % 0.5 % 0.0-1.0 Normal (applies to non-numeric resul ts) [facility] ([facility]) Nucleated Red Blood Cell % 0.0 % 0-0 Normal (applies to n on-numeric results) [facility] ([facility]) Neutrophils # 5.4 10 1.5-8.5 Normal (applies to non-numeric re sults) [facility] ([facility]) Lymph # 1.4 10 1.5-5.0 Below low normal [facility] ( [facility]) Baso # 0.0 10 0.0-0.2 Normal (applies to non-numeric resul ts) [facility] ([facility]) Coffey # 0.6 10 0.0-0.8 Normal (applies to non-numeric resul ts) [facility] ([facility]) Eos # 0.3 10 0.0-0.5 Normal (applies to non-numeric resul ts) [facility] ([facility]) ID Date Data Source [id number] 11/10/2020 11:55:00 AM EDT [facility] Name Value Range Interpretation Code Description Data Faith rce(s) Supporting Document(s) SARS coronavirus 2 RNA [Presence] in Res piratory specimen by MADY with probe detection NEGATIVE [facility] This lab was ordered by [facility] a nd reported by [facility]. ID Date Data Source [id number] 10/20/2020 08:33:00 PM EDT [facility] Name Value Range Interpretation Code Description Data Faith rce(s) Supporting Document(s) SARS-CoV-2 (COVID 19) NEGATIVE - SARS-CoV-2 (COVID19) [facility] This lab was ordered by [facility] a nd reported by [facility]. ID Date Data Source [id number] 09/25/2020 10:57:47 AM EDT [facility] Name Value Range Interpretation Code Description Data Faith rce(s) Supporting Document(s) Progress Note [facility] FQIWTo0dTbQNXjDj51/VFLtwUMOzi7YyACqpFDu7JCdaDDEeE1NiXTK7iE5eGOE5WMqDYxGmApAuEJZp lbm [file] NICKER AND BREAKER+Og6BGXCkSRa1S3F2AGUyFGk1T6SLP7SNBRQiMJkaXGyuAQZeARu7N3B6VEBzC4TDO1Xgqritov4+ VS9TY35NSJFrVCj2L5P9bXHuF6Y7mVjWoBQ0PZ0NHW1IoOd6gIMwiI6+YR3JM1CKOwIxASh4P0M6vYBo B3A1bWfZkRO4FH6XET6BvRCnJJMpekGzNj3aV9BTRK rGWzGBDDH7MP0NeUNmXF8HvAIJA6AhfBJoNe6pMLzdkEAumD1iZn4mHUhbLK3HXsPFLIoPNDW1JV1CqZ HqRM6IpHDQI7PqrPUfAn3oFUigpCAgss2+CM6SQBDzTt4CLg1+BMgajeUfZyfLMtZfFYLug5GqJBf1XQ 5NGA5akOdbSDE4Cw0DbKF0rUMpO8gXXU8JoLHaJ03l qYJfGYVjIj1EIoS1zaNpqD4PBD65yOKjd4Z1AETiR1xhHXxrm94jXFhnQUnSZL9xCKSENHcsHYaqJUX4 SzLkhsmkVVNwCi6NMkBoVLb3qQ7nyGJ1UOQ9GuoreXKhDCjdTtBjTrNxIdM5bBjcqpr3RCcjFZ3bINww czptZXRhLyc+ADlyIFFzMFTdIcaQGIDmoA7udzU4id YxZRiptQRqXu2pl0x6TjmyYo6yTy5fRCe3TyTcUcVnCJDlIa8gzB28MFoolkImOs3SVgBrAOM1X3NoRl pSREY+WDkqAOgjuLn1bWCsVWDlFv8UKLKvQNTqCXEmVDQsSPBrBPBcDCBcIVAvHTKeLCLtIHUcQYOkOW AgICAgICAgICAgICAgICAgICAgICAgICAgICAgICAg ABCjYXVrFQSlRUNcXIJfFOEqFILvRWMwFACkUHGfJF1CHLHmBRQmAWEyYHLkQPAzFBLsJBWdPUGaYPIm ICAgICAgICAgICAgICAgICAgICAgICAgICAgICAgICAgICAgICAgICAgICAgICAgICAgICAgICAgICAg NWUmEUUuIUOdWJKiTT5VAQZmJKSuFGTvRCAbHTZbET AgICAgICAgICAgICAgICAgICAgICAgICAgICAgICAgICAgICAgICAgICAgICAgICAgICAgICAgICAgIC HsMHLiIBJaLLAgIUVbKBXxNLNmPRHaFU8MJWNlZUZcWDKfFHYmADHtEHTyCGUpCHVfEBRoCDWrRLUePX AgICAgICAgICAgICAgICAgICAgICAgICAgICAgICAg JKLmHJAuLHWrIBInNOWjLEAsFVKvSTQsJFMiBRJxKDHaET3RAFChLHMlIKRpCRBzNINyDKGnARFvFNHq ICAgICAgICAgICAgICAgICAgICAgICAgICAgICAgICAgICAgICAgICAgICAgICAgICAgICAgICAgICAg LUWxQHVqNEArIMGtACZbYV5EWCUdULDeYZFsONUwES AgICAgICAgICAgICAgICAgICAgICAgICAgICAgICAgICAgICAgICAgICAgICAgICAgICAgICAgICAgIC MbFTYxKXNuCXNkRLYeZZDoCFQqYKDsPSZzNC0BNJMsXRJgOZBkIPGcZKDcVNIiZWHuGMVaXAWjLZJzRQ AgICAgICAgICAgICAgICAgICAgICAgICAgICAgICAg MQSfGTZsPIMbJLPuWDXzUZLqNKNmEOYpTHUxNIJvDFWrIMJdNZ4KXYMeFOZoNTKiKJOhLHYoKBAuPRZq ICAgICAgICAgICAgICAgICAgICAgICAgICAgICAgICAgICAgICAgICAgICAgICAgICAgICAgICAgICAg MZLxFDEeVPBfTQEaCIWjHTIdSA1MNZSoRFGvSMLwJI AgICAgICAgICAgICAgICAgICAgICAgICAgICAgICAgICAgICAgICAgICAgICAgICAgICAgICAgICAgIC HeGCMmHOPqEZNqPHNuGIVtAXZdMDDtYDXwFUFfBJ9IALTxAZLfKWLlALYvIWWpFSLzZKTjQJYeHNLpFA AgICAgICAgICAgICAgICAgICAgICAgICAgICAgICAg HQHwEDPtYYXdOBLzEELaFJQcVINtKGZrPHTdDWTmGFTaKSJnQVVaLK7DOA74fVDwz9C0DTMaDG6fkyq/ Pw6NDTomgzVhdSFfBX8UMuSwGX1jvw9QQgZsPI6yqu9VWYkUWbIhL9J3tQIkIKNqKNZFChMrU11mZZfi Fr02TUzeWPUqKaFbYBx4Yz6EFuQjX0yzXNQuScV9SN NmVdJpNKjiOS8Jt4PgbHIlVOz+Rl1HBK9wz1HjYUrtPhIrXX8emy2XDRmEAiTyI7UhegS1VRXqNPLgTf 3TSMJeZMVdgCGuIyObNYYZLnQlH9UsdB71UHXUGg1+OYrcuuXjItxSVaYaBSGlv9GjRAf5FC4PGYSoIY v2xXNfMMOgR6Inl6FpOq45QQKmVmbyTYHqsDN1JKOu SfiudzddHy6sNHYpXW3tLaPwBwDhUMn1KZTlOF7fBXtsGK5TEJP8JWmaXHGbTWXlB4oTZlEaZSSkMuSx uXwfBN5UYiZlM8UtztRtcHKbYjPrICFNJx5+VEyyygPaDzsYTiT8KQPhj1QmRDx8KO2TNKDpLGhbQS1H WVBtfT3bXJqpST1YTkCkEUHnTCKWKrObW95agUUvTP o0D2TxFlEdKOEpVkpzPOYmKZtoDlIeGPOfDvRtVRpdXD0+ID4+IPufHQ9RTTwvxxDmXRAwEs7KHMYfFT BpCE9vLJAfLRGbK9Z9wRvrCYAFGbLxF3qkintdVQ3fWYBtY027dHphmbJwACFlPHJxDr4GGHOyMAY8BG DoiATkYgWhASAMKRvfUV1EhZNqBPS9fV2yUTruMFXl NYIpA7nHByIvtWgcUZ07pPysqnSlsXSrZLg+Ay8JJV4aj5SeMOq1ztOiHVzpMOA9FLfcCLRxLRYpATYl KQK6PAL4NVJDMcLbNTXhUSZwTQtpCQOcBQRxpy7TUFZmTEByUHR6IMCxSYQhRIKfCSeoAROaXOJxCGvw ESVwFOMrMM2AXyIfEVRdHSQtHLkjAHSqUMMicd9EAT AxSODtUJo4HJOxFLRuOVTxMPqnNQViALTxUHtyXJIuAGIcDU1KSlDbGOBtNVDjCCYoVWOrTLKqbk6SXP AiQFFjRfPqXtIfWRTlLENrVPevUCGgLFYqXIE9KBMzDSKdGO7XBvKbSLNcFIOfYsExUTQfNTFpcr2RHK QsKKLeURT2ApMiIUVgOAAnMHsxYCCqXOG0UnW8HPHj WGBeLO4IJqNwGQLfERChNWroUVGbOKHiue4AWJOjBQFmJqXfXRDoXMAaCGKoYWqxDXNqBMX0KgA1GAFq GZEfVW7XMpNmUVAbSGO1DSGjWVReMJZcof5RNIXxIPVeCkVtRUZuKEEhTHHmLCcyONFhTFQ4JMo3RWDq SSNvYP1VZoZbJMNoZNguFQKrMTDgTMSkoj6BVNChSV XaEBSlAeLeNCYxWEEfQAfmSZGkHPR2MuJyHBNvZOIcER7EYiSfWOAqAvLwINYbONSfQQKqoy2FHNXnPT GhEZF3OYQlLONeVYJvHNxxLXDhYSYfKru6MWRnNHUpQV4LIbBgGOmoNBVBSsg5EBemQ3a8ZBJkUU9RU0 Ukh5KoSlOtCGAYXTcwAU1mfoYkTSKiJa1HA6yBOolk FBSqYkWcCGmnMhFvAQO6GoMfIYX9YOVbC1CzRmWuMq8eZNR2ExZoD3LyD1CrPKMaFxVmCcIrBZh2G4C8 GdBcAEZrRlQxID3SGt4VQcG1RVS4uMUtEb0UMzQ1AHRALsIfUO8DZQh= ID Date Data Source [id number] 09/22/2020 04:55:48 PM EDT [facility] Name Value Range Interpretation Code Description Data Faith rce(s) Supporting Document(s) &PDF [facility] ZSMWYr1kScPURpYl40/MWQofSXYfe6ZhQLneXTp3OHgeAOTiX2MfuFaaHY2PF0aSShsNBKeBT9eKSDXf hdG [file] AgICAgICAgICAgICAgICAgICAgICAgICAgICAgICAg ICAgICAgICAgICAgICAgICAgICAgICAgICAgICAgICAgICAgICAgICAgICAgICAgICAgDQogICAgICAg ICAgICAgICAgICAgICAgICAgICAgICAgICAgICAgICAgICAgICAgICAgICAgICAgICAgICAgICAgICAg ICAgICAgICAgICAgICAgICAgICAgICAgICAgICAgIC AgDQogICAgICAgICAgICAgICAgICAgICAgICAgICAgICAgICAgICAgICAgICAgICAgICAgICAgICAgIC AgICAgICAgICAgICAgICAgICAgICAgICAgICAgICAgICAgICAgICAgICAgDQogICAgICAgICAgICAgIC AgICAgICAgICAgICAgICAgICAgICAgICAgICAgICAg ICAgICAgICAgICAgICAgICAgICAgICAgICAgICAgICAgICAgICAgICAgICAgICAgICAgICAgDQogICAg ICAgICAgICAgICAgICAgICAgICAgICAgICAgICAgICAgICAgICAgICAgICAgICAgICAgICAgICAgICAg ICAgICAgICAgICAgICAgICAgICAgICAgICAgICAgIC AgICAgDQogICAgICAgICAgICAgICAgICAgICAgICAgICAgICAgICAgICAgICAgICAgICAgICAgICAgIC AgICAgICAgICAgICAgICAgICAgICAgICAgICAgICAgICAgICAgICAgICAgICAgDQogICAgICAgICAgIC AgICAgICAgICAgICAgICAgICAgICAgICAgICAgICAg ICAgICAgICAgICAgICAgICAgICAgICAgICAgICAgICAgICAgICAgICAgICAgICAgICAgICAgICAgDQog ICAgICAgICAgICAgICAgICAgICAgICAgICAgICAgICAgICAgICAgICAgICAgICAgICAgICAgICAgICAg ICAgICAgICAgICAgICAgICAgICAgICAgICAgICAgIC AgICAgICAgDQogICAgICAgICAgICAgICAgICAgICAgICAgICAgICAgICAgICAgICAgICAgICAgICAgIC AgICAgICAgICAgICAgICAgICAgICAgICAgICAgICAgICAgICAgICAgICAgICAgICAgDQogICAgICAgIC AgICAgICAgICAgICAgICAgICAgICAgICAgICAgICAg ICAgICAgICAgICAgICAgICAgICAgICAgICAgICAgICAgICAgICAgICAgICAgICAgICAgICAgICAgICAg XFe1Q1suOYDsSPGmHV8cJQf2Jo2+BPmZOhGqTVW9ysKbeX1LNQ2qa4KwATufUWOxg2FwTLr2EH8PVQFq RCqaJD5QQJcros7WNBKaRHWpjJHBi6spRpJaYHC4YU ZgBfmsKH4OWORsX8mmdmSqROHxZOPSHBtpVTKSTLovZEGPAKXeAHUgDjEuWDodLU6If6QneJL1ZPf+Pg 5BCU1vw6EcFWo3HwJsHS8pqs6CEPmPApClC0P1gBTkA0F3SQrnDp7GXHAcNWKqZRMtYRXBPEjiWW8NQN 2uedQ3YC2NcINxBBVyFMGqwSHhJDw2Y98goUOqVShl GL5OQQQ+Nick+Wl4KLTMzOSHrZDCxKpPlQXVXVpNrY06qhJWbDHPdFVN2QOVlJv2CIPAmI4VqefJfxKwr vaGhRAIyHGCZQJ2YRCrwymUchIGweNoySW09cJyiYH6SQn0AZfOlOJ4flu8NiTTjUr6FFJK8GQ0BSWQs QWKeRLSfJYC6LPYoUfUzHJtxBSFoVNZkRFJ6DEYwKN MjNS1CCbHwGJGyPuWrWJDfVQRyURQjbq5NYKJhXSZuLxAgYwHcUFMjPQTiZWtcFQAdVZQcSQo0CEKyDM TrOZ6RKkPeSCTkDTP7NZIlTNViVKZhln1RNXNfRGHvEBZ1EqFsNPRtDONdXOfnXDKiVBG1UOpoECIcLL WaBI9QNiRxLJOgXSt3JJExUQLpRGNlya4NNHMoETDq SeSrWLHwCMLnYUWtTEncQTEvFJLxMhL2MMKxNUNhUC1XBqWgXZVmMNW6AWKmXCPgDOPlyg3NSMTuVEPx PFn6ZJAhQQRyPERdZDcoZDMtIKV2OlEvHUTxCFCsIA1DIkDiLKInJWQ3LPntKHQoEKZdny8DMOBeZSWo RmLdVCWwZJXqEBAnNRxmLQAnTAX8WUo7SMGkIMTiMH 0XQaKfWFGjELgnHXKvSGWsNFGlsw4MNMCqDSVfDdH5UKIvDKUpBZHvDUsyJSPcUARgQkC6EZOaPGTkEQ 3NJtPmHMRhLoY4ZGTnVZMdMBWcyg8ZYEJjBUFnPze1ECQuOAHpXMHePDneYFFjAGJyFGK7LHKrTHUlXJ 8KYnTpMNAgOrMsIKLbULYiHMDkeg9QPIGjVOIeDSX0 NjOiEXIyURJaZLrvJLExEJQ4Qgg2JXHeEDZoDZ4LZpAeNVQnEcD4AXUjHQHcRNZweh2VDVJtKRKoIGZ1 CkTvZCMbAXCgBHbcTEFcZBS5Oef2JVBiSBXfNS6JGhXkJKGgXuR3OQDfIVPnLMZmzn1CCAGcKRMzEmG1 JrIwFCOcEGVdHZymFTZoWZM9OTZ8IBDeYSUaSJ0QDm JjIBPyLiQ9YyidCQKfCMUewa3DGEZlBXCwFcUeXXQjCUSyGYDrECpmZVRmWWH5VmU9OCFxJSDoZP8MSh WhTBWyUsi2IRIzJDLbWXAmxg9CDJMtWXKqJjf5KPDjGMIaPZWlLBveHDEzPHM8EDlyDBVkJTEiWL3LVi AdQEFuYuufLcKrYDYvQSQbqu0YAMUrFPAyICX5BsAq IYKkLBCvYVgaWWFiTPK5WOE3KFYgOOBzAF5JZpNzYDItTwhkTsNdDORoXLRbsb8EQYAvKZFdVPTjBXMz ZHYqZEWwTOccTRXbXSB5VcT1HEVzZTMkAI7NQwDgCISbJgr4LWriMGJuDPTinw0MTLMjVZOnOZE2ZXBu JPRqOHRrUShjMQTzPXFwYYtcCZNhMDRnFE9ZGyKfNU YkEzLbMsffILKzYABisi5YwBWzmZuivv6AWPoJLv3NsKstZFN1RLskEn5dnMM4JyHgTTYYGm6LwtEhIE AoTRDFGDocMHXmLBy3A1DiZjiqQXI2WMD9RvI7D7V0MSCnQOXcMFOaVGJfSbY7UodjOiU8EBOrKYQeYy S1JKA1KHE8CiYrFBGyYiZjAAL+NL6iOYo+Fd5Mb7EyeyO7rhTdIZtjGyXcSc0XJEKFM7BYYc== ID Date Data Source [id number] 08/01/2020 11:25:00 AM EDT [facility] [address] [place] [address] PHONE: [phone] FAX: [phone] Name .................. : PEARL MAE Acct Number.................. : [id number] ROOM. ................. : Number ................... : [id number] Stay type ............. : O/P Discharge Date......... ... : 07/30/20 Admit Date ......... : 07/30/20 Admit Phys .................... : NASREEN Date of ....... : 1950 Family Phys ................... : LISSY COOK Phone .................. : [phone] Age ................................ : 69 Film# .................. .:[id number] Sex ................................. : F Unsigned transcriptions are preliminary reports and do not represent a medical or legal document RENAL COMPLETE [id number] COMPLETE:07/30/20 14:26 [facility] [id number] Reason for Exam: CHRONIC KIDNEY DISEASE RETENTION [...] By Marlo Abrams M.D. , 08/01/20 11:25, [facility] Transcribe Initials: DZ , Transcribe Date: 07/31/20 05:04, Dictation Date: Copy for: SIM Dempsey via fax Copy for: [address] [place] [address] Page 1 of 1 Name Value Range Interpretation Code Description Data Faith rce(s) Supporting Document(s) ID Date Data Source [id number] 11/22/2019 12:00:00 AM EDT [facility] Maureen Paez Patient Name: K[id number] Date of : 1950[place] [address] Date of Exam: 11/22/2019#: Fax: [phone] EXAM: [...] rce(s) Supporting Document(s) ID Date Data Source [id number] 11/22/2019 12:00:00 AM EDT [facility] Maureen Velázquez [employer] Patient Name: KAYA [id number] Date of : 1950[place] [address] Date of Exam: 11/22/2019#: Fax: [phone] EXAM: [...] rce(s) Supporting Document(s) ID Date Data Source [id number] 11/22/2019 12:00:00 AM EDT [facility] Maureen Velázquez [facility] Patient Name: KAYA [id number] Date of : 1950[place] [address] Date of Exam: 11/22/2019#: Fax: [phone] EXAM: [...] rce(s) Supporting Document(s) ID Date Data Source [id number] 11/16/2019 12:00:00 AM EDT [facility] Name Value Range Interpretation Code Description Data Faith rce(s) Supporting Document(s) 2019-nCoV RNA XXX MADY+probe-Imp [facility] This lab [facility] and reported by [employer]. ID Date Data Source [id number] 11/05/2019 11:00:00 AM EDT [facility] Name Value Range Interpretation Code Description Data Faith rce(s) Supporting Document(s) SARS coronavirus 2 RNA [facility] This lab was ordered by [facility] and reported by [facility]. Procedure Social History Code Duration Value Status Description Data Source(s ) Smoking 11/27/2020 12:00:00 AM EDT Former Smoker completed Former Smoker eCW1 (Counts Include [facility]) Smoking 10/23/2020 12:00:00 AM EDT Former Smoker completed Former Smoker eCW1 (Counts Include [facility]) Smoking 10/23/2020 12:00:00 AM EDT Former Smoker completed Former Smoker eCW1 (Counts Include [facility]) Smoking 10/23/2020 12:00:00 AM EDT Former Smoker completed Former Smoker eCW1 (Counts Include [facility]) Smoking 10/23/2020 12:00:00 AM EDT Former Smoker completed Former Smoker eCW1 (Counts Include [facility]) Smoking 10/23/2020 12:00:00 AM EDT Former Smoker completed Former Smoker eCW1 (Counts Include [facility]) Smoking 10/23/2020 12:00:00 AM EDT Former Smoker completed Former Smoker eCW1 (Counts Include [facility]) Smoking 10/23/2020 12:00:00 AM EDT Former Smoker completed Former Smoker eCW1 (Counts Include [facility]) Smoking 08/20/2020 12:00:00 AM EDT Former Smoker completed Former Smoker eCW1 (Counts Include [facility]) Smoking 08/20/2020 12:00:00 AM EDT Former Smoker completed Former Smoker eCW1 (Counts Include [facility]) Smoking 08/20/2020 12:00:00 AM EDT Former Smoker completed Former Smoker eCW1 (Counts Include [facility]) Smoking 08/20/2020 12:00:00 AM EDT Former Smoker completed Former Smoker eCW1 (Counts Include [facility]) Alcohol intake 07/17/2020 12:00:00 AM EDT Current non-d marina of alcohol (finding) completed Current non-drinker of alcohol (finding) [facility] Smoking 05/11/2020 12:00:00 AM EDT Former Smoker completed Former Smoker eCW1 (Counts Include [facility]) Smoking 05/11/2020 12:00:00 AM EDT Former Smoker completed Former Smoker eCW1 (Counts Include [facility]) Smoking 05/11/2020 12:00:00 AM EDT Former Smoker completed Former Smoker eCW1 (Counts Include 234 [facility] Smoking 05/11/2020 12:00:00 AM EDT Former Smoker completed Former Smoker eCW1 (Counts Include 234 [facility]) Smoking 05/11/2020 12:00:00 AM EDT Former Smoker completed Former Smoker eCW1 (Counts Include 234 [facility]) Smoking 05/11/2020 12:00:00 AM EDT Former Smoker completed Former Smoker eCW1 (Counts Include 234 [facility]) Smoking 05/11/2020 12:00:00 AM EDT Former Smoker completed Former Smoker eCW1 (Counts Include 234 [facility]) Smoking 05/11/2020 12:00:00 AM EDT Former Smoker completed Former Smoker eCW1 (Counts Include 234 [facility]) Smoking 05/11/2020 12:00:00 AM EDT Former Smoker completed Former Smoker eCW1 (Counts Include 234 [facility]) Smoking 05/11/2020 12:00:00 AM EDT Former Smoker completed Former Smoker eCW1 (Counts Include 234 [facility]) Smoking 04/02/2020 12:00:00 AM EST Patient is a former smoker completed Patient is a former smoker [facility] Smoking 01/10/2020 12:00:00 AM EST Former Smoker completed Former Smoker eCW1 (Counts Include 234 [facility]) Smoking 01/10/2020 12:00:00 AM EST Former Smoker completed Former Smoker eCW1 (Counts Include 234 [facility]) Smoking 01/10/2020 12:00:00 AM EST Former Smoker completed Former Smoker eCW1 (Counts Include 234 [facility]) Smoking 01/10/2020 12:00:00 AM EST Former Smoker completed Former Smoker eCW1 (Counts Include 234 [facility]) Smoking 01/10/2020 12:00:00 AM EST Former Smoker completed Former Smoker eCW1 (Counts Include 234 [facility]) Smoking 01/10/2020 12:00:00 AM EST Former Smoker completed Former Smoker eCW1 (Counts Include 234 [facility]) Smoking 01/10/2020 12:00:00 AM EST Former Smoker completed Former Smoker eCW1 (Counts Include 234 [facility]) Smoking 01/10/2020 12:00:00 AM EST Former Smoker completed Former Smoker eCW1 (Counts Include 234 [facility]) Smoking 01/10/2020 12:00:00 AM EST Former Smoker completed Former Smoker eCW1 (Counts Include 234 [facility]) Smoking 01/10/2020 12:00:00 AM EST Former Smoker completed Former Smoker eCW1 (Counts Include 234 [facility]) Smoking 01/10/2020 12:00:00 AM EST Former Smoker completed Former Smoker eCW1 (Counts Include 234 [facility]) Smoking 01/10/2020 12:00:00 AM EST Former Smoker completed Former Smoker eCW1 (Counts Include 234 [facility]) Smoking 01/10/2020 12:00:00 AM EST Former Smoker completed Former Smoker eCW1 (Counts Include 234 [facility]) Smoking 01/10/2020 12:00:00 AM EST Former Smoker completed Former Smoker eCW1 (Counts Include 234 [facility]) Smoking 01/10/2020 12:00:00 AM EST Former Smoker completed Former Smoker eCW1 (Counts Include 234 [facility]) Smoking 01/10/2020 12:00:00 AM EST Former Smoker completed Former Smoker eCW1 (Counts Include 234 [facility]) Smoking 01/10/2020 12:00:00 AM EST Former Smoker completed Former Smoker eCW1 (Counts Include 234 [facility]) Smoking 01/10/2020 12:00:00 AM EST Former Smoker completed Former Smoker eCW1 (Counts Include 234 [facility]) Smoking 01/10/2020 12:00:00 AM EST Former Smoker completed Former Smoker eCW1 (Counts Include 234 [facility]) Alcohol intake 12/29/2019 12:00:00 AM EST No completed [facility] Cigarette pack-years 12/29/2019 12:00:00 AM EST UNK completed [facility] Cigarettes smoked current (pack per day) - Reported 12/29/19 20 12:00:00 AM EST UNK completed [facility] Smoking 12/29/2019 12:00:00 AM EST Former smoker completed Former smoker [facility] Smoking 12/29/2019 12:00:00 AM EST Former Smoker completed Former Smoker eCW1 (Counts Include 234 [facility]) Smoking 12/29/2019 12:00:00 AM EST Former Smoker completed Former Smoker eCW1 (Counts Include 234 [facility]) Smoking 12/06/2019 12:00:00 AM EDT Former Smoker completed Former Smoker eCW1 (Counts Include 234 [facility]) Smoking 12/06/2019 12:00:00 AM EDT Former Smoker completed Former Smoker eCW1 (Counts Include 234 [facility]) Vital Signs ID Date Data Source UNK Name Value Range Interpretation Code Description Data Source(s) Systolic blood pressure 120 mm[Hg] 120 mm[Hg] M EDENT ([facility], ) Diastolic blood pressure 60 mm[Hg] 60 mm[Hg] MEDENT ([facility], ) Body temperature 98.3 [degF] 98.3 [degF] MEDENT ([facility], ) Body height 70 [in_i] 70 [in_i] MEDENT ([facility]) 5'10" Body weight 278.00 [lb_av] 278.00 [lb_av] MEDEN T ([facility]) Body surface area Derived from formula 2.40 m2 2.40 m2 [facility] ([facility]) Body weight 126.101 kg 126.101 kg [facility] ([facility]) Body mass index (BMI) [Ratio] 39.9 kg/m2 39.9 k g/m2 [facility] ([facility]) [place] body weight 150 [lb_av] 150 [lb_av] MEDEN T ([facility]) Systolic blood pressure 150 mm[Hg] 150 mm[Hg] M EDENT ([facility]) Diastolic blood pressure 52 mm[Hg] 52 mm[Hg] MEDENT ([facility]) Body temperature 98.4 [degF] 98.4 [degF] [facility] ([facility]) Body weight 270.38 [lb_av] 270.38 [lb_av] MEDEN T ([facility]) Body mass index (BMI) [Ratio] 38.8 kg/m2 38.8 k g/m2 [facility] ([facility]) [place] body weight 150 [lb_av] 150 [lb_av] MEDEN T ([facility]) Body surface area Derived from formula 2.37 m2 2.37 m2 [facility] ([facility]) Body height 70 [in_i] 70 [in_i] [facility] ([facility]) 5'10" Body weight 122.642 kg 122.642 kg [facility] ([facility]) Body temperature 97.5 [degF] 97.5 [degF] eCW1 ( Counts Include 234 [facility]) Systolic blood pressure 126 mm[Hg] 126 mm[Hg] e CW1 (Counts Include 234 [facility]) Diastolic blood pressure 76 mm[Hg] 76 mm[Hg] eCW1 (Counts Include 234 [facility]) Respiratory rate 18 /min 18 /min eCW1 ([facility]) Body weight 272.2 [lb_av] 272.2 [lb_av] eCW1 ([facility]) Body weight 123.47 kg 123.47 kg eCW1 ([facility]) Body height 70 [in_i] 70 [in_i] eCW1 ([facility]) Body mass index (BMI) [Ratio] 39.05 kg/m2 39.05 kg/m2 eCW1 (Counts Include 234 [facility]) Heart rate 95 /min 95 /min eCW1 ([facility]) Body weight 248.4 [lb_av] 248.4 [lb_av] eCW1 ([facility]) Body height 70 [in_i] 70 [in_i] eCW1 ([facility]) Body mass index (BMI) [Ratio] 35.64 kg/m2 35.64 kg/m2 eCW1 (Counts Include 234 [facility]) Heart rate 80 /min 80 /min eCW1 ([facility]) Respiratory rate 18 /min 18 /min eCW1 ([facility]) Body temperature 98.1 [degF] 98.1 [degF] eCW1 ( Counts Include 234 [facility]) Systolic blood pressure 128 mm[Hg] 128 mm[Hg] e CW1 (Counts Include 234 [facility]) Diastolic blood pressure 74 mm[Hg] 74 mm[Hg] eCW1 (Counts Include 234 [facility]) Systolic blood pressure 140 mm[Hg] 140 mm[Hg] [facility] Diastolic blood pressure 68 mm[Hg] 68 mm[Hg] [facility] Heart rate 76 /min 76 /min [facility] Body height 177.8 cm 177.8 cm [facility] Body weight 124.739 kg 124.739 kg [facility] Body mass index (BMI) [Ratio] 39.46 kg/m2 39.46 kg/m2 [facility] Oxygen saturation in Arterial blood by Pulse oximetry 95 % 95 % [facility] [place] body weight 150 [lb_av] 150 [lb_av] MARGRET Erazo ([facility]) Body weight 117.936 kg 117.936 kg [facility] ([facility]) Body surface area Derived from formula 2.33 m2 2.33 m2 [facility] ([facility]) Systolic blood pressure 145 mm[Hg] 145 mm[Hg] M EDENT ([facility]) Diastolic blood pressure 67 mm[Hg] 67 mm[Hg] [facility] ([facility]) Body height 70 [in_i] 70 [in_i] [facility] ([facility]) 5'10" Body weight 260.00 [lb_av] 260.00 [lb_av] MEDEN T ([facility]) Body mass index (BMI) [Ratio] 37.3 kg/m2 37.3 k g/m2 [facility] ([facility]) Systolic blood pressure 150 mm[Hg] 150 mm[Hg] [facility] Diastolic blood pressure 69 mm[Hg] 69 mm[Hg] [facility] ([facility]) Heart rate 66 /min 66 /min [facility] ([facility]) Oxygen saturation in Arterial blood by Pulse oximetry 97 % 97 % [facility] ([facility]) Respiratory rate 18 /min 18 /min [facility] ( [facility]) Body temperature 96.6 [degF] 96.6 [degF] [facility] ([facility]) Body height 70 [in_i] 70 [in_i] [facility] ([facility]) 5'10" Body weight 270.00 [lb_av] 270.00 [lb_av] MEDEN T ([facility]) Body mass index (BMI) [Ratio] 38.7 kg/m2 38.7 k g/m2 [facility] ([facility]) [place] body weight 150 [lb_av] 150 [lb_av] MEDEN T ([facility]) Body weight 122.472 kg 122.472 kg [facility] ([facility]) Body surface area Derived from formula 2.37 m2 2.37 m2 [facility] ([facility], ) Body weight 267 [lb_av] 267 [lb_av] eCW1 ([facility]) Body height 70 [in_i] 70 [in_i] eCW1 ([facility]) Body mass index (BMI) [Ratio] 38.31 kg/m2 38.31 kg/m2 eCW1 (Counts Include 234 [facility]) Heart rate 89 /min 89 /min eCW1 ([facility]) Respiratory rate 18 /min 18 /min eCW1 ([facility]) Body temperature 98.1 [degF] 98.1 [degF] eCW1 ( Counts Include 234 [facility]) Systolic blood pressure 128 mm[Hg] 128 mm[Hg] e CW1 (Counts Include 234 [facility]) Diastolic blood pressure 82 mm[Hg] 82 mm[Hg] eCW1 (Counts Include 234 [facility]) Systolic blood pressure 144 mm[Hg] 144 mm[Hg] M EDENT ([facility], ) Diastolic blood pressure 68 mm[Hg] 68 mm[Hg] MEDENT ([facility], ) Heart rate 83 /min 83 /min [facility] Oxygen saturation in Arterial blood by Pulse oximetry 99 % 99 % [facility] ([facility], ) Ra Body temperature 98.8 [degF] 98.8 [degF] [facility] ([facility], ) Body height 70 [in_i] 70 [in_i] MEDENT ([facility], ) 5'10" [place] body weight 150 [lb_av] 150 [lb_av] MEDEN T ([facility], ) Systolic blood pressure 131 mm[Hg] 131 mm[Hg] M EDENT ([facility], ) Diastolic blood pressure 76 mm[Hg] 76 mm[Hg] MEDENT ([facility], ) Heart rate 68 /min 68 /min [facility] Body height 70 [in_i] 70 [in_i] MEDENT ([facility], ) 5'10" Body weight 270.00 [lb_av] 270.00 [lb_av] MEDEN T ([facility]) Body mass index (BMI) [Ratio] 38.7 kg/m2 38.7 k g/m2 [facility] ([facility]) [place] body weight 150 [lb_av] 150 [lb_av] MEDEN T ([facility]) Body weight 122.472 kg 122.472 kg [facility] ([facility]) Body surface area Derived from formula 2.37 m2 2.37 m2 [facility] ([facility]) Heart rate 80 /min 80 /min eCW1 ([facility]) Body weight 262 [lb_av] 262 [lb_av] eCW1 ([facility]) Body height 70 [in_i] 70 [in_i] eCW1 ([facility]) Body mass index (BMI) [Ratio] 37.59 kg/m2 37.59 kg/m2 eCW1 (Counts Include 234 [facility]) Respiratory rate 18 /min 18 /min eCW1 ([facility]) Body temperature 97.1 [degF] 97.1 [degF] eCW1 ( Counts Include 234 [facility]) Systolic blood pressure 140 mm[Hg] 140 mm[Hg] e CW1 (Counts Include 234 [facility]) Diastolic blood pressure 60 mm[Hg] 60 mm[Hg] eCW1 (Counts Include 234 [facility]) Body weight 277.2 [lb_av] 277.2 [lb_av] eCW1 ([facility]) Body height 70 [in_i] 70 [in_i] eCW1 ([facility]) Body mass index (BMI) [Ratio] 39.77 kg/m2 39.77 kg/m2 eCW1 (Counts Include 234 [facility]) Heart rate 80 /min 80 /min eCW1 ([facility]) Respiratory rate 18 /min 18 /min eCW1 ([facility]) Body temperature 97.2 [degF] 97.2 [degF] eCW1 ( Counts Include 234 [facility]) Systolic blood pressure 128 mm[Hg] 128 mm[Hg] e CW1 (Counts Include 234 [facility]) Diastolic blood pressure 70 mm[Hg] 70 mm[Hg] eCW1 (Counts Include 234 [facility]) Systolic blood pressure 124 mm[Hg] 124 mm[Hg] S [facility] Diastolic blood pressure 68 mm[Hg] 68 mm[Hg] [facility] Heart rate 71 /min 71 /min [facility] Body height 177.8 cm 177.8 cm [facility] Body weight 122.471 kg 122.471 kg [facility] Body mass index (BMI) [Ratio] 38.74 kg/m2 38.74 kg/m2 [facility] Oxygen saturation in Arterial blood by Pulse oximetry 96 % 96 % [facility] Body weight 275 [lb_av] 275 [lb_av] eCW1 ([facility]) Body height 70 [in_i] 70 [in_i] eCW1 ([facility]) Body mass index (BMI) [Ratio] 39.45 kg/m2 39.45 kg/m2 W1 (Counts Include 234 [facility]) Heart rate 81 /min 81 /min eCW1 ([facility]) Respiratory rate 18 /min 18 /min eCW1 ([facility]) Body temperature 97.6 [degF] 97.6 [degF] eCW1 ( Counts Include 234 [facility]) Systolic blood pressure 110 mm[Hg] 110 mm[Hg] e CW1 (Counts Include 234 [facility]) Diastolic blood pressure 58 mm[Hg] 58 mm[Hg] eCW1 (Counts Include 234 [facility]) Patient Treatment Plan of Care Planned Activity Planned Date Details Description Data Source (s) predniSONE 10 MG (48) 11/07/2020 12:00:00 AM EDT eCW1 (Counts Include 234 [facility]) predniSONE 10 MG (48) 11/07/2020 12:00:00 AM EDT eCW1 (Counts Include 234 [facility]) predniSONE 10 MG (48) 11/07/2020 12:00:00 AM EDT eCW1 (Counts Include 234 [facility]) predniSONE 10 MG (48) 11/07/2020 12:00:00 AM EDT eCW1 (Counts Include 234 [facility]) predniSONE 10 MG (48) 11/07/2020 12:00:00 AM EDT eCW1 (Counts Include 234 [facility]) Lidocaine Hydrochloride 0.05 MG/MG Transdermal Patch [ Lidoderm] 10/25/2020 12:00:00 AM EDT eCW1 ([facility]) Lancets - 10/25/2020 12:00:00 AM EDT e CW1 (Counts Include 234 [facility]) Alcohol Pads 70 % 10/25/2020 12:00:00 AM EDT eCW1 (Counts Include 234 [facility]) Test Strips - 10/25/2020 12:00:00 AM EDT eCW1 (Counts Include 234 [facility]) Lidocaine Hydrochloride 0.05 MG/MG Transdermal Patch [ Lidoderm] 10/25/2020 12:00:00 AM EDT eCW1 ([facility]) Test Strips - 10/25/2020 12:00:00 AM EDT eCW1 (Counts Include 234 [facility]) Lancets - 10/25/2020 12:00:00 AM EDT e CW1 (Counts Include 234 [facility]) Alcohol Pads 70 % 10/25/2020 12:00:00 AM EDT eCW1 (Counts Include 234 [facility]) Lidocaine Hydrochloride 0.05 MG/MG Transdermal Patch [ Lidoderm] 10/25/2020 12:00:00 AM EDT eCW1 ([facility]) Lancets - 10/25/2020 12:00:00 AM EDT e CW1 (Counts Include 234 [facility]) Alcohol Pads 70 % 10/25/2020 12:00:00 AM EDT eCW1 (Counts Include 234 [facility]) Test Strips - 10/25/2020 12:00:00 AM EDT eCW1 (Counts Include 234 [facility]) Lidocaine Hydrochloride 0.05 MG/MG Transdermal Patch [ Lidoderm] 10/25/2020 12:00:00 AM EDT eCW1 ([facility]) Lidocaine Hydrochloride 0.05 MG/MG Transdermal Patch [ Lidoderm] 10/25/2020 12:00:00 AM EDT eCW1 ([facility]) Test Strips - 10/25/2020 12:00:00 AM EDT eCW1 (Counts Include 234 [facility]) Lancets - 10/25/2020 12:00:00 AM EDT e CW1 (Counts Include 234 [facility]) Alcohol Pads 70 % 10/25/2020 12:00:00 AM EDT eCW1 (Counts Include 234 [facility]) Test Strips - 10/25/2020 12:00:00 AM EDT eCW1 (Counts Include 234 [facility]) Lancets - 10/25/2020 12:00:00 AM EDT e CW1 (Counts Include 234 [facility]) Alcohol Pads 70 % 10/25/2020 12:00:00 AM EDT eCW1 (Counts Include 234 [facility]) Lidocaine Hydrochloride 0.05 MG/MG Transdermal Patch [ Lidoderm] 10/25/2020 12:00:00 AM EDT eCW1 ([facility]) Alcohol Pads 70 % 10/25/2020 12:00:00 AM EDT eCW1 (Counts Include 234 [facility]) Test Strips - 10/25/2020 12:00:00 AM EDT eCW1 (Counts Include 234 [facility]) Lancets - 10/25/2020 12:00:00 AM EDT e CW1 (Counts Include 234 [facility]) Fluconazole 150 MG Oral Tablet 09/18/2020 12:00:00 AM EDT eCW1 (Counts Include 234 [facility]) Fluconazole 150 MG Oral Tablet 09/18/2020 12:00:00 AM EDT eCW1 (Counts Include 234 [facility]) Fluconazole 150 MG Oral Tablet 09/18/2020 12:00:00 AM EDT eCW1 (Counts Include 234 [facility]) FreeStyle Janette Sensor System - 04/19/2020 12:00:00 AM EST eCW1 (Counts Include 234 [facility]) FreeStyle Janette Sensor System - 04/19/2020 12:00:00 AM EST eCW1 (Counts Include 234 [facility]) 3 ML Insulin, Aspart, Human 100 UNT/ML Pen Injector [N ovoLog] 04/09/2020 12:00:00 AM EST eCW1 ([facility]) 3 ML Insulin, Aspart, Human 100 UNT/ML Pen Injector [N ovoLog] 04/09/2020 12:00:00 AM EST eCW1 ([facility]) 3 ML Insulin, Aspart, Human 100 UNT/ML Pen Injector [N ovoLog] 04/09/2020 12:00:00 AM EST eCW1 ([facility]) 3 ML Insulin, Aspart, Human 100 UNT/ML Pen Injector [N ovoLog] 04/09/2020 12:00:00 AM EST eCW1 ([facility]) 3 ML Insulin, Aspart, Human 100 UNT/ML Pen Injector [N ovoLog] 04/09/2020 12:00:00 AM EST eCW1 ([facility]) 3 ML Insulin, Aspart, Human 100 UNT/ML Pen Injector [N ovoLog] 04/09/2020 12:00:00 AM EST eCW1 ([facility]) 3 ML Insulin, Aspart, Human 100 UNT/ML Pen Injector [N ovoLog] 04/09/2020 12:00:00 AM EST eCW1 ([facility]) 3 ML Insulin, Aspart, Human 100 UNT/ML Pen Injector [N ovoLog] 04/09/2020 12:00:00 AM EST eCW1 ([facility]) 3 ML Insulin, Aspart, Human 100 UNT/ML Pen Injector [N ovoLog] 04/09/2020 12:00:00 AM EST eCW1 ([facility]) 3 ML Insulin, Aspart, Human 100 UNT/ML Pen Injector [N ovoLog] 04/09/2020 12:00:00 AM EST eCW1 ([facility]) 3 ML Insulin, Aspart, Human 100 UNT/ML Pen Injector [N ovoLog] 04/09/2020 12:00:00 AM EST eCW1 ([facility]) 3 ML Insulin, Aspart, Human 100 UNT/ML Pen Injector [N ovoLog] 04/09/2020 12:00:00 AM EST eCW1 ([facility]) 3 ML Insulin, Aspart, Human 100 UNT/ML Pen Injector [N ovoLog] 04/09/2020 12:00:00 AM EST eCW1 ([facility]) 3 ML Insulin, Aspart, Human 100 UNT/ML Pen Injector [N ovoLog] 04/09/2020 12:00:00 AM EST eCW1 ([facility]) Wheelchair - 03/08/2020 12:00:00 AM EST e CW1 (Counts Include 234 [facility]) Wheelchair - 03/08/2020 12:00:00 AM EST e CW1 (Counts Include 234 [facility]) Wheelchair - 03/08/2020 12:00:00 AM EST e CW1 (Counts Include 234 [facility]) Wheelchair - 03/08/2020 12:00:00 AM EST e CW1 (Counts Include 234 [facility]) Wheelchair - 03/08/2020 12:00:00 AM EST e CW1 (Counts Include 234 [facility]) Wheelchair - 03/08/2020 12:00:00 AM EST e CW1 (Counts Include 234 [facility]) Wheelchair - 03/08/2020 12:00:00 AM EST e CW1 (Counts Include 234 [facility]) Wheelchair - 03/08/2020 12:00:00 AM EST e CW1 (Counts Include 234 [facility]) Wheelchair - 03/08/2020 12:00:00 AM EST e CW1 (Counts Include 234 [facility]) Nystatin 100 UNT/MG Topical Powder 01/16/2020 12:00:00 AM EST eCW1 (Counts Include 234 [facility]) Nystatin 100 UNT/MG Topical Powder 01/16/2020 12:00:00 AM EST eCW1 (Counts Include 234 [facility]) Nystatin 100 UNT/MG Topical Powder 01/16/2020 12:00:00 AM EST eCW1 (Counts Include 234 [facility]) Nystatin 100 UNT/MG Topical Powder 01/16/2020 12:00:00 AM EST eCW1 (Counts Include 234 [facility]) Nystatin 100 UNT/MG Topical Powder 01/16/2020 12:00:00 AM EST eCW1 (Counts Include 234 [facility]) Nystatin 100 UNT/MG Topical Powder 01/16/2020 12:00:00 AM EST eCW1 (Counts Include 234 [facility]) Nystatin 100 UNT/MG Topical Powder 01/16/2020 12:00:00 AM EST eCW1 (Counts Include 234 [facility]) Nystatin 100 UNT/MG Topical Powder 01/16/2020 12:00:00 AM EST eCW1 (Counts Include 234 [facility]) Nystatin 100 UNT/MG Topical Powder 01/16/2020 12:00:00 AM EST eCW1 (Counts Include 234 [facility]) Nystatin 100 UNT/MG Topical Powder 01/16/2020 12:00:00 AM EST eCW1 (Counts Include 234 [facility]) Nystatin 100 UNT/MG Topical Powder 01/16/2020 12:00:00 AM EST eCW1 (Counts Include 234 [facility]) Nystatin 100 UNT/MG Topical Powder 01/16/2020 12:00:00 AM EST eCW1 (Counts Include 234 [facility]) Nystatin 100 UNT/MG Topical Powder 01/16/2020 12:00:00 AM EST eCW1 (Counts Include 234 [facility]) Nystatin 100 UNT/MG Topical Powder 01/16/2020 12:00:00 AM EST eCW1 (Counts Include [facility]) Nystatin 100 UNT/MG Topical Powder 01/16/2020 12:00:00 AM EST eCW1 (Counts Include 234 Beds At [facility]) Nystatin 100 UNT/MG Topical Powder 01/16/2020 12:00:00 AM EST eCW1 (Counts Include 234 Beds At [facility]) Nystatin 100 UNT/MG Topical Powder 01/16/2020 12:00:00 AM EST eCW1 (Counts Include 234 [facility] At [facility]) FreeStyle Janette 14 Day [place] - 01/10/2020 12:00:00 AM EST eCW1 (Counts Include 234 Beds At [facility]) FreeStyle Janette 14 Day [place] - 01/10/2020 12:00:00 AM EST eCW1 (Counts Include 234 [facility]eds At [facility]) FreeStyle Janette 14 Day [place] - 01/10/2020 12:00:00 AM EST eCW1 (Counts Include 234 [facility]eds At [facility]) FreeStyle Janette 14 Day [place] - 01/10/2020 12:00:00 AM EST eCW1 (Counts Include 234 Beds At [facility]) FreeStyle Janette 14 Day [place] - 01/10/2020 12:00:00 AM EST eCW1 (Counts Include 234 Beds At [facility]) FreeStyle Janette 14 Day [place] - 01/10/2020 12:00:00 AM EST eCW1 (Counts Include 234 [facility]eds At [facility]) FreeStyle Janette 14 Day [place] - 01/10/2020 12:00:00 AM EST eCW1 (Counts Include 234 Beds At [facility]) FreeStyle Janette 14 Day [place] - 01/10/2020 12:00:00 AM EST eCW1 (Counts Include 234 [facility]eds At [facility]) FreeStyle Janette 14 Day [place] - 01/10/2020 12:00:00 AM EST eCW1 (Counts Include 234 [facility]eds [facility]) FreeStyle Janette 14 Day [place] - 01/10/2020 12:00:00 AM EST eCW1 (Counts Include 234 Beds At [facility]) FreeStyle Janette 14 Day [place] - 01/10/2020 12:00:00 AM EST eCW1 (Counts Include 234 [facility]eds At [facility]) FreeStyle Janette 14 Day [place] - 01/10/2020 12:00:00 AM EST eCW1 (Counts Include 234 [facility]) FreeStyle Janette 14 Day [place] - 01/10/2020 12:00:00 AM EST eCW1 (Counts Include 234 [facility]eds [facility]) FreeStyle Janette 14 Day [place] - 01/10/2020 12:00:00 AM EST eCW1 (Counts Include 234 [facility]) FreeStyle Janette 14 Day [place] - 01/10/2020 12:00:00 AM EST eCW1 (Counts Include 234 [facility]) FreeStyle Janette 14 Day [place] - 01/10/2020 12:00:00 AM EST eCW1 (Counts Include 234 [facility]) FreeStyle Janette 14 Day [place] - 01/10/2020 12:00:00 AM EST eCW1 (Counts Include 234 [facility]) FreeStyle Janette 14 Day [place] - 01/10/2020 12:00:00 AM EST eCW1 (Counts Include 234 [facility]) FreeStyle Janette 14 Day [place] - 01/10/2020 12:00:00 AM EST eCW1 (Counts Include 234 [facility]) FreeStyle Janette 14 Day [place] - 01/10/2020 12:00:00 AM EST eCW1 (Counts Include 234 [facility]) FreeStyle Janette 14 Day [place] - 01/10/2020 12:00:00 AM EST eCW1 (Counts Include 234 [facility]) FreeStyle Janette 14 Day [place] - 01/10/2020 12:00:00 AM EST eCW1 (Counts Include 234 [facility]) FreeStyle Janette 14 Day [place] - 01/10/2020 12:00:00 AM EST eCW1 (Counts Include 234 [facility]) FreeStyle Janette 14 Day [place] - 01/10/2020 12:00:00 AM EST eCW1 (Counts Include 234 [facility]) FreeStyle Janette 14 Day [place] - 01/10/2020 12:00:00 AM EST eCW1 (Counts Include 234 [facility]) FreeStyle Janette 14 Day [place] - 01/10/2020 12:00:00 AM EST eCW1 (Counts Include 234 [facility]) FreeStyle Janette 14 Day [place] - 01/10/2020 12:00:00 AM EST eCW1 (Counts Include 234 [facility]) FreeStyle Janette 14 Day [place] - 01/10/2020 12:00:00 AM EST eCW1 (Counts Include 234 [facility]) FreeStyle Janette 14 Day [place] - 01/10/2020 12:00:00 AM EST eCW1 (Counts Include 234 [facility]) 3 ML Insulin Glargine 100 UNT/ML Pen Injector [Lantus] 12/06/2019 12:00:00 AM EDT [facility] Insulin, Aspart, Human 100 UNT/ML Injectable Solution 03/20/2017 12:00:00 AM EST [facility] Spironolactone 25 MG Oral Tablet 06/13/2016 12:00:00 AM EDT [facility] atorvastatin 40 MG Oral Tablet 03/24/2016 12:00:00 AM EST [facility] TORSEMIDE PO 10/17/2014 12:00:00 AM EDT [facility] PARoxetine (PAXIL) 40 MG tablet 10/17/2014 12:00:00 AM EDT [facility] gabapentin 300 MG Oral Capsule 10/17/2014 12:00:00 AM EDT [facility] ferrous sulfate 325 MG Oral Tablet 10/17/2014 12:00:00 AM EDT [facility] Cyclobenzaprine hydrochloride 10 MG Oral Tablet 10/17/2014 12:00:00 AM EDT [facility] carvedilol 12.5 MG Oral Tablet 10/17/2014 12:00:00 AM EDT [facility] Aspirin 81 MG Oral Tablet [facility] Ascorbic Acid 60 MG / Calcium Pantothena te 10 MG / D-BIOTIN 0.3 MG / Folic Acid 0.8 MG / Niacinamide 20 MG / pyridoxine 10 MG / Riboflavin 1.7 MG / Thiamine 1.5 MG / Vitamin B 12 0.006 MG Oral Tablet [Prashant-Nicolas] [facility] Insulin Glargine 100 UNT/ML Injectable Solution [facility] Amlodipine 5 MG Oral Tablet [facility] Insulin Glargine 100 UNT/ML Injectable Solution [facility] Linagliptin 5 MG Oral Tablet [facility] 24 HR Isosorbide Mononitrate 30 MG Extended Release Oral Tablet [facility] Calcitriol 0.60431 MG Oral Capsule [facility] Minocycline 100 MG Oral Tablet eCW1 (Counts Include [facility]) Minocycline 100 MG Oral Tablet eCW1 (Counts Include [address] [facility])
[2020-12-06] MEDS ORDERED: DOXY1CAP62 PO (19:08)
[2020-12-06] MEDS ORDERED: CEPH500C PO (19:08)
== END 2020-12-06 19:46 | disposition home or self-care (01) ==
LOC: M ED 15:57
DX: L03.116 Cellulitis of left lower limb (principal); Z79.82 Long term (current) use of aspirin; Z79.4 Long term (current) use of insulin; Z79.899 Other long term (current) drug therapy; Z88.2 Allergy status to sulfonamides; Z88.5 Allergy status to narcotic agent; Z88.8 Allergy status to other drugs, medicaments and biological substances; Z91.89 Other specified personal risk factors, not elsewhere classified
CPT/HCPCS: 80048; 80076; 83605; 85025; 85652; 86140; 87040; 96372; 99283; J0690

== ENCOUNTER → 2020-12-24 | Outpatient (REF) | payer OTHER ==
[~2020-12-24] MED LIST changes: +DOXY-443 PO; -DOXY1CAP62 PO
[2020-12-24 15:12] LABS: CREATININE, SERUM 2.3 MG/DL (0.6-1.0); CREATININE, URINE 42.8 MG/DL
== END ==
LOC: M LAB REF 13:34
PROVIDERS: ATTEND Internal Medicine Nephrology
DX: N17.9 Acute kidney failure, unspecified (principal)

== ENCOUNTER → 2021-01-03 | Outpatient (REF) | payer OTHER ==
[2021-01-03 18:37] LABS: PERCENT SATURATION 26.6 % (13.2-45.0)
== END ==
LOC: M LAB REF 17:20
PROVIDERS: ATTEND Internal Medicine Nephrology
DX: D50.9 Iron deficiency anemia, unspecified (principal)

== ENCOUNTER 2021-06-10 16:15 | Emergency (ER) | payer OTHER ==
[~2021-06-10] VITALS: Ht 177.8 cm; Wt 119.5 kg
[~2021-06-10 16:15] MED LIST changes: -LEVO250T12 PO; +LEVO250T3 PO; +POTA-151 PO; -POTA20TA6 PO
[2021-06-10] MEDS ORDERED: PERCOCET 5MG/325MG TAB PO ONE ×2 (20:15→22:15)
[2021-06-10] MEDS ORDERED: MORPHINE 10 MG/ML 1ML VIAL IM ONE (21:35)
[2021-06-10] MEDS ORDERED: PERC5TAB12 PO (22:08)
[2021-06-10 22:19] VITALS: BP 131/76
== END 2021-06-10 22:28 | disposition home or self-care (01) ==
LOC: M ED 16:15
DX: S32.401A Unspecified fracture of right acetabulum, initial encounter for closed fracture (principal); W19.XXXA Unspecified fall, initial encounter; Y92.9 Unspecified place or not applicable; Y93.9 Activity, unspecified; Y99.9 Unspecified external cause status; I50.9 Heart failure, unspecified; I25.2 Old myocardial infarction; E11.40 Type 2 diabetes mellitus with diabetic neuropathy, unspecified; I10 Essential (primary) hypertension; K57.90 Diverticulosis of intestine, part unspecified, without perforation or abscess without bleeding; N18.4 Chronic kidney disease, stage 4 (severe); F17.200 Nicotine dependence, unspecified, uncomplicated; Z79.82 Long term (current) use of aspirin; Z79.4 Long term (current) use of insulin; Z79.899 Other long term (current) drug therapy; Z88.2 Allergy status to sulfonamides; Z91.89 Other specified personal risk factors, not elsewhere classified; Z88.5 Allergy status to narcotic agent; Z88.8 Allergy status to other drugs, medicaments and biological substances
CPT/HCPCS: 72192; 73502; 73700; 96372; 99283; J2270

== ENCOUNTER → 2021-06-13 | Outpatient (CLI) | payer OTHER ==
[~2021-06-13] MED LIST changes: +PERC5TAB12 PO
== END ==
LOC: M SOG 14:50
PROVIDERS: ATTEND Orthopaedic Surgery
DX: S32.401A Unspecified fracture of right acetabulum, initial encounter for closed fracture (principal); W18.30XA Fall on same level, unspecified, initial encounter; Y92.009 Unspecified place in unspecified non-institutional (private) residence as the place of occurrence of the external cause

== ENCOUNTER 2021-09-16 17:27 | Emergency (ER) | payer OTHER ==
[~2021-09-16] VITALS: Ht 177.8 cm; Wt 119.0 kg
[2021-09-16 17:27] VITALS: BP 142/67
== END 2021-09-16 18:32 | disposition left against medical advice (07) ==
LOC: M ED 17:27
DX: Z53.21 Procedure and treatment not carried out due to patient leaving prior to being seen by health care provider (principal)

== ENCOUNTER → 2021-10-15 | Outpatient (REF) | payer OTHER ==
[~2021-10-15] MED LIST changes: +LEVO1TAB38 PO; -LEVO250T3 PO
== END ==
LOC: M LAB REF 16:45
PROVIDERS: ATTEND Nurse Practitioner Family
DX: N39.0 Urinary tract infection, site not specified (principal)

== ENCOUNTER → 2021-10-18 | Outpatient (CLI) | payer OTHER | LOC: M RAD 11:56 | PROVIDERS: ATTEND Surgery Vascular Surgery | DX: I87.2 Venous insufficiency (chronic) (peripheral) (principal); N18.6 End stage renal disease; E11.40 Type 2 diabetes mellitus with diabetic neuropathy, unspecified ==

== ENCOUNTER → 2021-11-11 | Outpatient (CLI) | payer OTHER ==
[~2021-11-11] MED LIST changes: +FERR325T19 PO
== END ==
LOC: M RAD 12:02
PROVIDERS: ATTEND Surgery
DX: Z01.818 Encounter for other preprocedural examination (principal); I70.248 Atherosclerosis of native arteries of left leg with ulceration of other part of lower leg; L97.922 Non-pressure chronic ulcer of unspecified part of left lower leg with fat layer exposed

== ENCOUNTER → 2021-11-12 | Outpatient (CLI) | payer OTHER | LOC: M LABSMTC 09:58 | PROVIDERS: ATTEND Anesthesiology | DX: Z01.812 Encounter for preprocedural laboratory examination (principal); Z20.822 Contact with and (suspected) exposure to COVID-19 ==

== ENCOUNTER 2021-11-15 07:14 | Inpatient (IN) | payer OTHER ==
[~2021-11-15] VITALS: Ht 170.2 cm; Wt 120.2 kg
[2021-11-15] MEDS ORDERED: LR 1,000 ML IV SCH ×2 (08:00→13:25)
[2021-11-15 08:44] LABS: HEMATOCRIT 37.9 % (36.0-47.0); HEMOGLOBIN 12.1 g/dl (12.0-15.5); MEAN CORPUSCULAR HEMOGLOBIN 32.5 pg (27.0-33.0); MEAN CORPUSCULAR HGB CONC 31.9 g/dl (32.0-36.5); MEAN CORPUSCULAR VOLUME 101.9 fl (80.0-96.0); PLATELET COUNT, AUTOMATED 163 10^3/uL (150-450); RED BLOOD COUNT 3.72 10^6/uL (4.00-5.40)
[2021-11-15] MEDS ORDERED: INSULIN LISPRO (NovoLOG) PER UNIT SC PRN (09:05)
[2021-11-15 09:18] LABS: CALCIUM LEVEL 9.9 MG/DL (8.8-10.2); CREATININE FOR GFR 2.78 MG/DL (0.55-1.30); POTASSIUM SERUM 4.1 MEQ/L (3.5-5.1)
[2021-11-15] MEDS ORDERED: LIDOCAINE 2% 100MG/5ML SDV (FOR ANES.) As Ordered ONE (09:39)
[2021-11-15] MEDS ORDERED: propofoL 200 MG/20 ML VIAL As Ordered ONE (09:39)
[2021-11-15] MEDS ORDERED: fentaNYL 100 MCG/2 ML INJECTION As Ordered ONE ×2 (09:41→12:03)
[2021-11-15] MEDS ORDERED: MIDAZOLAM INJ 2MG/2ML VIAL (J2250 PER 1MG) As Ordered ONE (09:42)
[2021-11-15] MEDS ORDERED: ONDANSETRON 4MG 2ML VIAL As Ordered ONE (09:43)
[2021-11-15] MEDS ORDERED: HEPARIN SOD (PORCINE) 5000UNITS/ML 1ML VIAL/SYRINGE As Ordered ONE (10:29)
[2021-11-15] MEDS ORDERED: LIDOCAINE 1% SDV 30ML VIAL As Ordered ONE (10:29)
[2021-11-15] MEDS ORDERED: ROCURONIUM BROMIDE 50 MG/5 ML VIAL As Ordered ONE (10:36)
[2021-11-15] MEDS ORDERED: ceFAZolin 2 GM/D5W 50 ML IV BAG (J0690 PER 500MG) As Ordered ONE (11:09)
[2021-11-15] MEDS ORDERED: THROMBIN SOLN 5,000 UNITS VIAL As Ordered ONE (12:09)
[2021-11-15] MEDS ORDERED: ceFAZolin SOD 2 GM in IV 1 EA IV ONE (12:30)
[2021-11-15] MEDS ORDERED: SUGAMMADEX SODIUM 500 MG/5 ML VIAL (BRIDION) As Ordered ONE (13:22)
[2021-11-15] MEDS ORDERED: fentaNYL 100 MCG/2 ML INJECTION IV PRN (13:25)
[2021-11-15] MEDS ORDERED: ONDANSETRON 4MG 2ML VIAL IV PRN (13:25)
[2021-11-15] MEDS ORDERED: PERCOCET PO (13:54)
[2021-11-15] MEDS: oxyCODONE 5MG TAB PO PRN ×3 (14:32→23:14)
[2021-11-15 17:20] VITALS: BP 168/82
[2021-11-15] MEDS: INSULIN LISPRO (NovoLOG) PER UNIT SC SCH ×2 (17:30→21:00)
[2021-11-15] MEDS ORDERED: DEXTROSE 50% 50 ML SYRINGE IV PRN (17:35)
[2021-11-15] MEDS ORDERED: GLUCAGON INJ 1MG VIAL SC PRN (17:35)
[2021-11-15] MEDS ORDERED: GLUCOSE 4GM CHEW TABLET PO PRN (17:35)
[2021-11-15 17:50] VITALS: BP 165/81
[2021-11-15] MEDS ORDERED: oxyCODONE 5MG TAB PO PRN (18:45)
[2021-11-15 18:50] VITALS: BP 122/57
[2021-11-15 20:00] VITALS: BP 130/59
[2021-11-15 21:00] VITALS: BP 133/60
[2021-11-15] MEDS: CARVedilol 12.5 MG TAB PO SCH (21:00)
[2021-11-15] MEDS ORDERED: FERROUS GLUCONATE 324 MG TAB PO SCH (21:00)
[2021-11-15] MEDS: GABAPENTIN 300 MG CAP PO SCH (21:00)
[2021-11-15] MEDS: ATORVASTATIN 20 MG TAB PO SCH (21:00)
[2021-11-15] MEDS: FERROUS SULFATE 325MG TAB PO SCH (21:00)
[2021-11-15] MEDS: allopurinoL 100 MG TAB PO SCH (21:00)
[2021-11-15] MEDS: LEVEMIR (INSULIN DETEMIR) 1 UNITS/0.01ML SC SCH (21:01)
[2021-11-15 22:00] VITALS: BP 124/51
[2021-11-16 02:00] VITALS: BP 129/55
[2021-11-16 06:00] VITALS: BP 134/61
[2021-11-16] MEDS: oxyCODONE 5MG TAB PO PRN ×2 (06:03→14:56)
[2021-11-16] MEDS: FERROUS SULFATE 325MG TAB PO SCH ×2 (08:05→16:57)
[2021-11-16] MEDS: INSULIN LISPRO (NovoLOG) PER UNIT SC SCH ×4 (08:05→20:38)
[2021-11-16] MEDS: LEVEMIR (INSULIN DETEMIR) 1 UNITS/0.01ML SC SCH ×2 (08:05→20:37)
[2021-11-16] MEDS: SPIRONOLACTONE 25 MG TAB PO SCH (08:06)
[2021-11-16] MEDS: GABAPENTIN 300 MG CAP PO SCH ×3 (08:06→20:38)
[2021-11-16] MEDS: PARoxetine 20MG TABLET PO SCH (08:06)
[2021-11-16] MEDS: TORSEMIDE 100 MG TAB PO SCH (08:07)
[2021-11-16] MEDS: ASPIRIN 81MG ENTERIC TABLET PO SCH (08:07)
[2021-11-16] MEDS: CARVedilol 12.5 MG TAB PO SCH ×2 (08:08→20:38)
[2021-11-16] MEDS ORDERED: PERCOCET PO (08:21)
[2021-11-16 10:00] VITALS: BP 130/60
[2021-11-16 10:57] VITALS: O2SAT 92
[2021-11-16 14:00] VITALS: BP 143/68
[2021-11-16] MEDS ORDERED: FUROSEMIDE 100MG/10ML VIAL (J1940) IV ONE (14:40)
[2021-11-16 15:16] LABS: ABG BASE EXCESS 6.4 (-2.0-2.0); ABG O2 SATURATION 80.6 % (95.0-99.0); ABG PARTIAL PRESSURE CO2 57.4 mmHg (35.0-45.0); ABG STANDARD HCO3 29.9 MEQ/L (22.0-26.0); ABG TOTAL CO2 34.7 MEQ/L (23.0-31.0); ABG pH (ARTERIAL) 7.377 UNITS (7.350-7.450)
[2021-11-16 15:17] LABS: ABG PARTIAL PRESSURE O2 44.3 mmHg (75.0-100.0)
[2021-11-16] MEDS: ATORVASTATIN 20 MG TAB PO SCH (20:38)
[2021-11-16] MEDS: allopurinoL 100 MG TAB PO SCH (20:38)
[2021-11-16 22:00] VITALS: BP 112/79
[2021-11-17] MEDS: oxyCODONE 5MG TAB PO PRN ×2 (01:31→09:20)
[2021-11-17 06:00] VITALS: BP 133/67
[2021-11-17 06:55] LABS: BASO % 0.4 % (0.0-1.0); EOS # 0.2 10^3/uL (0.0-0.5); EOS % 2.6 % (0.0-3.0); HEMATOCRIT 33.2 % (36.0-47.0); HEMOGLOBIN 10.7 g/dl (12.0-15.5); LYMPH # 1.6 10^3/uL (1.5-5.0); LYMPH % 17.3 % (24.0-44.0); MEAN CORPUSCULAR HGB CONC 32.2 g/dl (32.0-36.5); MEAN CORPUSCULAR VOLUME 102.5 fl (80.0-96.0); MONO # 0.7 10^3/uL (0.0-0.8); MONO % 8.2 % (2.0-8.0); NEUTROPHILS # 6.4 10^3/uL (1.5-8.5); NEUTROPHILS % 71.1 % (36.0-66.0); PLATELET COUNT, AUTOMATED 148 10^3/uL (150-450); RED BLOOD COUNT 3.24 10^6/uL (4.00-5.40)
[2021-11-17 07:42] LABS: CALCIUM LEVEL 9.1 MG/DL (8.8-10.2); CREATININE FOR GFR 3.1 MG/DL (0.55-1.30); GLOMERULAR FILTRATION RATE 15.9 (>45); POTASSIUM SERUM 3.8 MEQ/L (3.5-5.1)
[2021-11-17] MEDS: SPIRONOLACTONE 25 MG TAB PO SCH (09:12)
[2021-11-17] MEDS: ASPIRIN 81MG ENTERIC TABLET PO SCH (09:12)
[2021-11-17] MEDS: PARoxetine 20MG TABLET PO SCH (09:12)
[2021-11-17] MEDS: GABAPENTIN 300 MG CAP PO SCH (09:12)
[2021-11-17] MEDS: LEVEMIR (INSULIN DETEMIR) 1 UNITS/0.01ML SC SCH (09:13)
[2021-11-17] MEDS: FERROUS SULFATE 325MG TAB PO SCH (09:13)
[2021-11-17] MEDS: INSULIN LISPRO (NovoLOG) PER UNIT SC SCH (09:13)
[2021-11-17] MEDS: TORSEMIDE 100 MG TAB PO SCH (09:14)
[2021-11-17 09:15] VITALS: BP 134/57
[2021-11-17] MEDS: CARVedilol 12.5 MG TAB PO SCH (09:15)
== END 2021-11-17 10:20 | disposition home or self-care (01) | DRG 982 ==
LOC: M SDC 07:14 → M MS5PR 07:15 → M SDC 17:10 → M MS5PR 17:10 → OBSVTOIN 11-16 17:09 → M SDC 11-17 10:20 → M MS5PR 11-17 10:20
PROVIDERS: ADMIT Internal Medicine Nephrology; ATTEND Internal Medicine Nephrology
PROC: 031 Upper Arteries, Bypass (ICD-10-PCS; principal; 2021-11-15 09:15)
DX: J95.89 Other postprocedural complications and disorders of respiratory system, not elsewhere classified (principal); N18.5 Chronic kidney disease, stage 5; I13.2 Hypertensive heart and chronic kidney disease with heart failure and with stage 5 chronic kidney disease, or end stage renal disease; I50.32 Chronic diastolic (congestive) heart failure; Z68.41 Body mass index [BMI] 40.0-44.9, adult; E66.2 Morbid (severe) obesity with alveolar hypoventilation; E11.22 Type 2 diabetes mellitus with diabetic chronic kidney disease; E11.42 Type 2 diabetes mellitus with diabetic polyneuropathy; E11.319 Type 2 diabetes mellitus with unspecified diabetic retinopathy without macular edema; E78.5 Hyperlipidemia, unspecified; Z89.512 Acquired absence of left leg below knee; M79.7 Fibromyalgia; I25.10 Atherosclerotic heart disease of native coronary artery without angina pectoris; R09.02 Hypoxemia; D50.9 Iron deficiency anemia, unspecified; D63.8 Anemia in other chronic diseases classified elsewhere; F32.A Depression, unspecified; M19.90 Unspecified osteoarthritis, unspecified site; Z90.49 Acquired absence of other specified parts of digestive tract; Z90.79 Acquired absence of other genital organ(s); Z89.421 Acquired absence of other right toe(s); Z87.891 Personal history of nicotine dependence; Z79.82 Long term (current) use of aspirin; Z79.4 Long term (current) use of insulin; Z79.899 Other long term (current) drug therapy; Z88.2 Allergy status to sulfonamides; Z88.5 Allergy status to narcotic agent; Z91.018 Allergy to other foods; Z91.048 Other nonmedicinal substance allergy status

== ENCOUNTER → 2021-11-26 | Outpatient (POV) | payer OTHER ==
[~2021-11-26] VITALS: Ht 177.8 cm; Wt 106.8 kg
[2021-11-26 13:55] VITALS: BP 176/78
== END ==
LOC: M IRPOV 13:39
PROVIDERS: ATTEND Radiology Diagnostic Radiology
DX: T87.89 Other complications of amputation stump (principal); E11.622 Type 2 diabetes mellitus with other skin ulcer; E11.22 Type 2 diabetes mellitus with diabetic chronic kidney disease; E11.40 Type 2 diabetes mellitus with diabetic neuropathy, unspecified; E11.319 Type 2 diabetes mellitus with unspecified diabetic retinopathy without macular edema; I12.9 Hypertensive chronic kidney disease with stage 1 through stage 4 chronic kidney disease, or unspecified chronic kidney disease; E78.5 Hyperlipidemia, unspecified; I25.2 Old myocardial infarction; I25.10 Atherosclerotic heart disease of native coronary artery without angina pectoris; N18.9 Chronic kidney disease, unspecified; Z87.891 Personal history of nicotine dependence; Z90.710 Acquired absence of both cervix and uterus; Z89.512 Acquired absence of left leg below knee; Z88.1 Allergy status to other antibiotic agents; Z88.2 Allergy status to sulfonamides; Z88.5 Allergy status to narcotic agent; Z88.8 Allergy status to other drugs, medicaments and biological substances; Z91.09 Other allergy status, other than to drugs and biological substances; Z91.048 Other nonmedicinal substance allergy status; Z79.82 Long term (current) use of aspirin; Z79.899 Other long term (current) drug therapy; Z79.4 Long term (current) use of insulin

== ENCOUNTER → 2021-12-19 | Outpatient (CLI) | payer OTHER | LOC: M RAD 13:03 | PROVIDERS: ATTEND Surgery Vascular Surgery | DX: T82.858A Stenosis of other vascular prosthetic devices, implants and grafts, initial encounter (principal); Y83.1 Surgical operation with implant of artificial internal device as the cause of abnormal reaction of the patient, or of later complication, without mention of misadventure at the time of the procedure ==

== ENCOUNTER → 2022-01-15 | Outpatient (CLI) | payer OTHER | LOC: M LABSMTC 11:02 | PROVIDERS: ATTEND Anesthesiology | DX: Z01.812 Encounter for preprocedural laboratory examination (principal); Z20.822 Contact with and (suspected) exposure to COVID-19 ==

== ENCOUNTER 2022-01-20 09:25 | Day surgery (SDC) | payer OTHER ==
[~2022-01-20] VITALS: Ht 177.8 cm; Wt 113.4 kg
[~2022-01-20 09:25] MED LIST changes: +ceFAZolin SOD 2 GM in IV 1 EA IV ONE
[2022-01-20 10:06] LABS: HEMATOCRIT 36.5 % (36.0-47.0); HEMOGLOBIN 11.6 g/dl (12.0-15.5); MEAN CORPUSCULAR HEMOGLOBIN 32.2 pg (27.0-33.0); MEAN CORPUSCULAR HGB CONC 31.8 g/dl (32.0-36.5); MEAN CORPUSCULAR VOLUME 101.4 fl (80.0-96.0); PLATELET COUNT, AUTOMATED 160 10^3/uL (150-450); WHITE BLOOD COUNT 8.3 10^3/uL (4.0-10.0)
[2022-01-20] MEDS ORDERED: LR 1,000 ML IV SCH (10:10)
[2022-01-20 10:23] LABS: INR 0.99; PARTIAL THROMBOPLASTIN TIME 27.5 SECONDS (24.8-34.2); PROTHROMBIN TIME 13.3 SECONDS (12.5-14.5)
[2022-01-20 10:42] LABS: CREATININE FOR GFR 2.78 MG/DL (0.55-1.30)
[2022-01-20] MEDS ORDERED: LIDOCAINE 1% SDV 30ML VIAL As Ordered ONE ×2 (10:47→13:09)
[2022-01-20] MEDS ORDERED: BUPIVACAINE/EPIN 0.5% 30 ML VIAL As Ordered ONE (10:47)
[2022-01-20] MEDS ORDERED: HEPARIN SOD (PORCINE) 5000UNITS/ML 1ML VIAL/SYRINGE As Ordered ONE ×2 (10:47→13:31)
[2022-01-20 10:58] LABS: POTASSIUM SERUM 4.6 MMOL/L (3.5-5.1)
[2022-01-20] MEDS ORDERED: INSULIN LISPRO (NovoLOG) PER UNIT SC PRN (11:10)
[2022-01-20] MEDS ORDERED: propofoL 200 MG/20 ML VIAL As Ordered ONE ×2 (11:37→12:10)
[2022-01-20] MEDS ORDERED: LIDOCAINE 2% 100MG/5ML SDV (FOR ANES.) As Ordered ONE (11:37)
[2022-01-20] MEDS ORDERED: PAPAVERINE HCL 60MG 2ML VIAL (30MG/ML) As Ordered ONE (12:20)
[2022-01-20] MEDS ORDERED: BUPIVACAINE HCL 0.5% 30ML VIAL As Ordered ONE (12:29)
[2022-01-20] MEDS ORDERED: BUPIVACAINE HCL 0.25% 30ML VIAL As Ordered ONE (12:29)
[2022-01-20] MEDS ORDERED: THROMBIN 5,000 UNITS VIAL As Ordered ONE (13:38)
[2022-01-20] MEDS ORDERED: ACETAMINOPHEN 1000MG 100ML IV BAG As Ordered ONE (14:04)
[2022-01-20] MEDS ORDERED: ONDANSETRON 4MG 2ML VIAL IV PRN (15:00)
[2022-01-20] MEDS ORDERED: fentaNYL 100 MCG/2 ML INJECTION IV PRN (15:00)
[2022-01-20] MEDS ORDERED: HYDR2TAB2 PO (15:21)
[2022-01-20] MEDS ORDERED: oxyCODONE 5MG TAB PO PRN (15:55)
[2022-01-20] MEDS: HYDROMORPHONE HCL 0.5 MG/ 0.5 ML SYRINGE (J1170 PER 1) IV PRN ×2 (16:17→16:25)
[2022-01-20 17:00] VITALS: BP 136/51
== END 2022-01-20 17:25 | disposition home or self-care (01) ==
LOC: M SDC 09:25
PROVIDERS: ATTEND Surgery Vascular Surgery
DX: N18.6 End stage renal disease (principal); I12.0 Hypertensive chronic kidney disease with stage 5 chronic kidney disease or end stage renal disease; I25.10 Atherosclerotic heart disease of native coronary artery without angina pectoris; I25.2 Old myocardial infarction; E11.42 Type 2 diabetes mellitus with diabetic polyneuropathy; E78.5 Hyperlipidemia, unspecified; G47.33 Obstructive sleep apnea (adult) (pediatric); M10.9 Gout, unspecified; K57.92 Diverticulitis of intestine, part unspecified, without perforation or abscess without bleeding; Z87.891 Personal history of nicotine dependence; Z79.4 Long term (current) use of insulin; Z79.899 Other long term (current) drug therapy; Z79.82 Long term (current) use of aspirin; Z88.2 Allergy status to sulfonamides; Z88.5 Allergy status to narcotic agent; Z88.8 Allergy status to other drugs, medicaments and biological substances; F41.9 Anxiety disorder, unspecified; F32.A Depression, unspecified; Z89.512 Acquired absence of left leg below knee; D64.9 Anemia, unspecified
CPT/HCPCS: 36415; 36819; 80048; 85027; 85610; 85730; 86850; 86900; 86901; J0131; J0690; J1170; J1644; J1815; J2440

== ENCOUNTER → 2022-01-26 | Outpatient (CLI) | payer OTHER ==
[~2022-01-26] MED LIST changes: +HYDR2TAB2 PO; -ceFAZolin SOD 2 GM in IV 1 EA IV ONE
== END ==
LOC: M LABSMTC 11:39
PROVIDERS: ATTEND Anesthesiology
DX: Z01.812 Encounter for preprocedural laboratory examination (principal); Z11.52 Encounter for screening for COVID-19

== ENCOUNTER 2022-01-31 09:25 | Inpatient (IN) | payer OTHER ==
[~2022-01-31] VITALS: Ht 177.8 cm; Wt 122.5 kg
[2022-01-31] MEDS: PARoxetine 20MG TABLET PO SCH (09:00)
[~2022-01-31 09:25] MED LIST changes: +TORSEMIDE 100 MG TAB PO SCH; +ceFAZolin SOD 2 GM in IV 1 EA IV ONE
[2022-01-31 10:00] LABS: HEMATOCRIT 32.8 % (36.0-47.0); HEMOGLOBIN 10.4 g/dl (12.0-15.5); MEAN CORPUSCULAR HGB CONC 31.7 g/dl (32.0-36.5); MEAN CORPUSCULAR VOLUME 100.9 fl (80.0-96.0); PLATELET COUNT, AUTOMATED 187 10^3/uL (150-450); RED BLOOD COUNT 3.25 10^6/uL (4.00-5.40); WHITE BLOOD COUNT 9.2 10^3/uL (4.0-10.0)
[2022-01-31 10:33] LABS: CALCIUM LEVEL 8.3 MG/DL (8.3-10.6); CREATININE FOR GFR 2.46 MG/DL (0.55-1.30); GLOMERULAR FILTRATION RATE 20.7 (>45); POTASSIUM SERUM 4.4 MMOL/L (3.5-5.1)
[2022-01-31] MEDS ORDERED: LIDOCAINE 1% SDV 5ML VIAL SC PRN (10:40)
[2022-01-31] MEDS ORDERED: LR 1,000 ML IV SCH ×2 (10:40→14:50)
[2022-01-31] MEDS ORDERED: INSULIN LISPRO (NovoLOG) PER UNIT SC PRN (10:40)
[2022-01-31] MEDS ORDERED: HYDR2TAB2 PO (10:48)
[2022-01-31] MEDS ORDERED: NS 1,000 ML IV SCH (11:20)
[2022-01-31] MEDS ORDERED: LIDO1PAD TD (11:30)
[2022-01-31] MEDS ORDERED: SILV50CR TD (11:30)
[2022-01-31] MEDS ORDERED: HOME MED LIST COMPLETE! XX SCH (11:35)
[2022-01-31] MEDS ORDERED: ATROPINE SULF 0.4 MG/ML 1ML VIAL As Ordered ONE ×2 (13:22→14:34)
[2022-01-31] MEDS ORDERED: propofoL 200 MG/20 ML VIAL As Ordered ONE (13:22)
[2022-01-31] MEDS ORDERED: ROCURONIUM BROMIDE 50MG/5ML VIAL As Ordered ONE (13:22)
[2022-01-31] MEDS ORDERED: MIDAZOLAM INJ 2MG/2ML VIAL (J2250 PER 1MG) As Ordered ONE (13:22)
[2022-01-31] MEDS ORDERED: LIDOCAINE 2% 100MG/5ML SDV (FOR ANES.) As Ordered ONE (13:22)
[2022-01-31] MEDS ORDERED: fentaNYL 100 MCG/2 ML INJECTION As Ordered ONE ×2 (13:22→14:39)
[2022-01-31] MEDS ORDERED: ONDANSETRON 4MG 2ML VIAL As Ordered ONE (13:22)
[2022-01-31] MEDS ORDERED: GLYCOPYRROLATE INJ 0.2 MG/ML 2 ML VIAL As Ordered ONE (13:36)
[2022-01-31] MEDS ORDERED: ACETAMINOPHEN 1000MG 100ML IV BAG As Ordered ONE (14:14)
[2022-01-31] MEDS ORDERED: ONDANSETRON 4MG 2ML VIAL IV PRN (14:50)
[2022-01-31] MEDS ORDERED: fentaNYL 100 MCG/2 ML INJECTION IV PRN (14:50)
[2022-01-31] MEDS ORDERED: oxyCODONE 5MG TAB PO PRN (14:50)
[2022-01-31] MEDS ORDERED: SUGAMMADEX SODIUM 500 MG/5 ML VIAL (BRIDION) As Ordered ONE (15:01)
[2022-01-31] MEDS: GABAPENTIN 300 MG CAP PO SCH ×2 (16:00→21:15)
[2022-01-31] MEDS ORDERED: HYDROmorphone 2 MG TAB PO PRN ×2 (16:05→16:40)
[2022-01-31] MEDS ORDERED: GLUCOSE 4GM CHEW TABLET PO PRN (16:40)
[2022-01-31] MEDS ORDERED: DEXTROSE 50% 50ML SYRINGE IV PRN (16:40)
[2022-01-31] MEDS ORDERED: GLUCAGON INJ 1MG VIAL SC PRN (16:40)
[2022-01-31 16:51] VITALS: BP_SYST 133; BP_DIAS 46; BP_DIAS 64
[2022-01-31] MEDS: INSULIN LISPRO (NovoLOG) PER UNIT SC SCH ×2 (17:12→21:00)
[2022-01-31] MEDS: HYDROMORPHONE HCL 0.5 MG/ 0.5 ML SYRINGE (J1170 PER 1) IV PRN ×2 (17:33→21:17)
[2022-01-31 18:00] VITALS: BP 151/64
[2022-01-31] MEDS: LEVEMIR (INSULIN DETEMIR) 1 UNITS/0.01ML SC SCH (21:00)
[2022-01-31] MEDS: CARVedilol 12.5 MG TAB PO SCH (21:00)
[2022-01-31] MEDS ORDERED: LEVEMIR (INSULIN DETEMIR) 1 UNITS/0.01ML SC ONE (21:10)
[2022-01-31] MEDS: allopurinoL 100 MG TAB PO SCH (21:15)
[2022-01-31] MEDS: FERROUS SULFATE 325MG TAB PO SCH (21:15)
[2022-01-31] MEDS: HEPARIN SOD (PORCINE) 5000UNITS/ML 1ML VIAL/SYRINGE SQ SCH (21:16)
[2022-01-31] MEDS: ATORVASTATIN 20 MG TAB PO SCH (21:16)
[2022-01-31 21:32] VITALS: BP 152/54
[2022-01-31 21:33] VITALS: BP 152/54
[2022-02-01] MEDS: HYDROMORPHONE HCL 0.5 MG/ 0.5 ML SYRINGE (J1170 PER 1) IV PRN ×7 (00:22→20:37)
[2022-02-01 02:00] VITALS: BP 138/60
[2022-02-01] MEDS ORDERED: NYSTATIN 100,000 UNITS/GM TOPICAL PWD 15GM TOP PRN (05:00)
[2022-02-01 06:00] VITALS: BP 140/53
[2022-02-01] MEDS: HEPARIN SOD (PORCINE) 5000UNITS/ML 1ML VIAL/SYRINGE SQ SCH ×3 (06:42→20:36)
[2022-02-01 08:02] LABS: HEMATOCRIT 30.7 % (36.0-47.0); HEMOGLOBIN 9.7 g/dl (12.0-15.5); MEAN CORPUSCULAR HGB CONC 31.6 g/dl (32.0-36.5); MEAN CORPUSCULAR VOLUME 101.3 fl (80.0-96.0); PLATELET COUNT, AUTOMATED 175 10^3/uL (150-450); RED BLOOD COUNT 3.03 10^6/uL (4.00-5.40); WHITE BLOOD COUNT 11.9 10^3/uL (4.0-10.0)
[2022-02-01 08:18] LABS: CALCIUM LEVEL 8.6 MG/DL (8.3-10.6); CREATININE FOR GFR 2.57 MG/DL (0.55-1.30); GLOMERULAR FILTRATION RATE 19.7 (>45); POTASSIUM SERUM 5.1 MMOL/L (3.5-5.1)
[2022-02-01] MEDS: TORSEMIDE (DEMADEX) 50 MG PER 1/2 TAB PO SCH (09:37)
[2022-02-01] MEDS: PARoxetine 20MG TABLET PO SCH (09:37)
[2022-02-01] MEDS: ASPIRIN 81MG ENTERIC TABLET PO SCH (09:38)
[2022-02-01] MEDS: CARVedilol 12.5 MG TAB PO SCH ×2 (09:39→20:35)
[2022-02-01] MEDS: FERROUS SULFATE 325MG TAB PO SCH ×2 (09:39→20:35)
[2022-02-01] MEDS: GABAPENTIN 300 MG CAP PO SCH ×3 (09:39→20:34)
[2022-02-01] MEDS: INSULIN LISPRO (NovoLOG) PER UNIT SC SCH ×4 (09:40→21:00)
[2022-02-01] MEDS: LEVEMIR (INSULIN DETEMIR) 1 UNITS/0.01ML SC SCH ×2 (09:40→20:36)
[2022-02-01 14:00] VITALS: BP 123/44
[2022-02-01] MEDS: diphenhydrAMINE 25MG CAP PO PRN ×2 (17:03→20:33)
[2022-02-01] MEDS: ATORVASTATIN 20 MG TAB PO SCH (20:34)
[2022-02-01] MEDS: allopurinoL 100 MG TAB PO SCH (20:35)
[2022-02-01 22:00] VITALS: BP 142/55
[2022-02-02] MEDS: HYDROMORPHONE HCL 0.5 MG/ 0.5 ML SYRINGE (J1170 PER 1) IV PRN ×4 (03:10→17:19)
[2022-02-02] MEDS: HEPARIN SOD (PORCINE) 5000UNITS/ML 1ML VIAL/SYRINGE SQ SCH ×3 (05:59→20:46)
[2022-02-02 06:00] VITALS: BP 131/51
[2022-02-02 07:46] LABS: HEMATOCRIT 28.7 % (36.0-47.0); HEMOGLOBIN 9.1 g/dl (12.0-15.5); MEAN CORPUSCULAR HEMOGLOBIN 32.2 pg (27.0-33.0); MEAN CORPUSCULAR HGB CONC 31.7 g/dl (32.0-36.5); MEAN CORPUSCULAR VOLUME 101.4 fl (80.0-96.0); PLATELET COUNT, AUTOMATED 158 10^3/uL (150-450); RED BLOOD COUNT 2.83 10^6/uL (4.00-5.40); WHITE BLOOD COUNT 11.9 10^3/uL (4.0-10.0)
[2022-02-02 08:45] LABS: CALCIUM LEVEL 8.2 MG/DL (8.3-10.6); CREATININE FOR GFR 2.93 MG/DL (0.55-1.30); GLOMERULAR FILTRATION RATE 16.9 (>45)
[2022-02-02] MEDS: INSULIN LISPRO (NovoLOG) PER UNIT SC SCH ×4 (08:45→20:33)
[2022-02-02] MEDS: LEVEMIR (INSULIN DETEMIR) 1 UNITS/0.01ML SC SCH ×2 (08:45→20:33)
[2022-02-02] MEDS: ASPIRIN 81MG ENTERIC TABLET PO SCH (08:46)
[2022-02-02] MEDS: GABAPENTIN 300 MG CAP PO SCH ×3 (08:46→20:32)
[2022-02-02] MEDS: TORSEMIDE (DEMADEX) 50 MG PER 1/2 TAB PO SCH (08:47)
[2022-02-02] MEDS: PARoxetine 20MG TABLET PO SCH (08:47)
[2022-02-02] MEDS: CARVedilol 12.5 MG TAB PO SCH (08:48)
[2022-02-02] MEDS: FERROUS SULFATE 325MG TAB PO SCH ×2 (08:48→20:32)
[2022-02-02 14:00] VITALS: BP 119/42
[2022-02-02] MEDS ORDERED: CHLORASEPTIC SPRAY MT PRN (20:25)
[2022-02-02] MEDS: CARVedilol 3.125 MG TAB PO SCH (20:32)
[2022-02-02] MEDS: ATORVASTATIN 20 MG TAB PO SCH (20:32)
[2022-02-02] MEDS: allopurinoL 100 MG TAB PO SCH (20:32)
[2022-02-02] MEDS: BENZONATATE 100MG CAPSULE PO PRN (20:45)
[2022-02-02 22:00] VITALS: BP 136/47
[2022-02-03] MEDS: HYDROMORPHONE HCL 0.5 MG/ 0.5 ML SYRINGE (J1170 PER 1) IV PRN ×2 (00:49→05:01)
[2022-02-03] MEDS: BENZONATATE 100MG CAPSULE PO PRN (05:00)
[2022-02-03] MEDS: HEPARIN SOD (PORCINE) 5000UNITS/ML 1ML VIAL/SYRINGE SQ SCH ×3 (05:01→22:21)
[2022-02-03 06:00] VITALS: BP 155/53
[2022-02-03 07:16] LABS: HEMATOCRIT 28.6 % (36.0-47.0); HEMOGLOBIN 8.9 g/dl (12.0-15.5); MEAN CORPUSCULAR HEMOGLOBIN 32.1 pg (27.0-33.0); MEAN CORPUSCULAR HGB CONC 31.1 g/dl (32.0-36.5); MEAN CORPUSCULAR VOLUME 103.2 fl (80.0-96.0); PLATELET COUNT, AUTOMATED 146 10^3/uL (150-450); RED BLOOD COUNT 2.77 10^6/uL (4.00-5.40); WHITE BLOOD COUNT 12.1 10^3/uL (4.0-10.0)
[2022-02-03] MEDS: INSULIN LISPRO (NovoLOG) PER UNIT SC SCH ×4 (07:30→20:07)
[2022-02-03] MEDS: PARoxetine 20MG TABLET PO SCH (08:38)
[2022-02-03] MEDS: GABAPENTIN 300 MG CAP PO SCH ×3 (08:38→20:13)
[2022-02-03] MEDS: TORSEMIDE (DEMADEX) 50 MG PER 1/2 TAB PO SCH (08:39)
[2022-02-03] MEDS: FERROUS SULFATE 325MG TAB PO SCH ×2 (08:39→20:13)
[2022-02-03] MEDS: ASPIRIN 81MG ENTERIC TABLET PO SCH (08:39)
[2022-02-03] MEDS: CARVedilol 3.125 MG TAB PO SCH ×2 (08:39→08:40)
[2022-02-03 08:40] VITALS: BP 146/54
[2022-02-03 08:42] LABS: CALCIUM LEVEL 8.5 MG/DL (8.3-10.6); CREATININE FOR GFR 3.2 MG/DL (0.55-1.30); GLOMERULAR FILTRATION RATE 15.3 (>45); POTASSIUM SERUM 4.5 MMOL/L (3.5-5.1)
[2022-02-03] MEDS: LEVEMIR (INSULIN DETEMIR) 1 UNITS/0.01ML SC SCH ×2 (08:43→20:14)
[2022-02-03] MEDS ORDERED: HYDROmorphone 2 MG TAB PO PRN (10:40)
[2022-02-03] MEDS ORDERED: PILL CUTTER 1 EACH XX PRN (11:10)
[2022-02-03 14:00] VITALS: BP 132/43
[2022-02-03 18:48] LABS: APPEARANCE, URINE MANUAL CLEAR (CLEAR); COLOR, URINE MANUAL YELLOW (YELLOW)
[2022-02-03 18:49] LABS: BILIRUBIN, URINE MANUAL NEGATIVE (NEGATIVE); BLOOD URINE MANUAL NEGATIVE (NEGATIVE); GLUCOSE, URINE (UA) MANUAL NEGATIVE (NEGATIVE); KETONE, URINE MANUAL NEGATIVE (NEGATIVE); LEUKOCYTE ESTERASE, URINE MAN NEGATIVE (NEGATIVE); NITRITE, URINE MANUAL NEGATIVE (NEGATIVE); PROTEIN, URINE MANUAL TRACE mg/dL (NEGATIVE); UROBILINOGEN, URINE MANUAL NORMAL (NORMAL)
[2022-02-03 18:56] LABS: BACTERIA, URINE SMALL AMOUNT; RBC, URINE NONE SEEN /hpf (0-3); SQUAMOUS EPITHELIAL CELL URINE SMALL AMOUNT /hpf (SMALL AMT); WBC, URINE 0-1 /hpf (0-3)
[2022-02-03 20:02] VITALS: BP 131/87
[2022-02-03] MEDS: allopurinoL 100 MG TAB PO SCH (20:13)
[2022-02-03] MEDS: ATORVASTATIN 20 MG TAB PO SCH (20:14)
[2022-02-04 05:22] VITALS: BP 140/73
[2022-02-04] MEDS: HEPARIN SOD (PORCINE) 5000UNITS/ML 1ML VIAL/SYRINGE SQ SCH ×3 (05:32→21:26)
[2022-02-04] MEDS: GABAPENTIN 300 MG CAP PO SCH ×3 (08:34→21:21)
[2022-02-04] MEDS: PARoxetine 20MG TABLET PO SCH (08:35)
[2022-02-04] MEDS: TORSEMIDE (DEMADEX) 50 MG PER 1/2 TAB PO SCH (08:35)
[2022-02-04] MEDS: ASPIRIN 81MG ENTERIC TABLET PO SCH (08:36)
[2022-02-04] MEDS: FERROUS SULFATE 325MG TAB PO SCH ×2 (08:36→21:22)
[2022-02-04] MEDS: BENZONATATE 100MG CAPSULE PO PRN ×2 (08:39→21:27)
[2022-02-04] MEDS: LEVEMIR (INSULIN DETEMIR) 1 UNITS/0.01ML SC SCH ×2 (09:20→21:22)
[2022-02-04] MEDS: INSULIN LISPRO (NovoLOG) PER UNIT SC SCH ×4 (09:21→21:22)
[2022-02-04 14:26] VITALS: BP 147/66
[2022-02-04 21:13] VITALS: BP 155/62
[2022-02-04] MEDS: ATORVASTATIN 20 MG TAB PO SCH (21:21)
[2022-02-04] MEDS: allopurinoL 100 MG TAB PO SCH (21:21)
[2022-02-05] MEDS: HEPARIN SOD (PORCINE) 5000UNITS/ML 1ML VIAL/SYRINGE SQ SCH ×3 (03:47→20:35)
[2022-02-05] MEDS ORDERED: BENZONATATE 100MG CAPSULE PO ONE (04:00)
[2022-02-05 05:34] VITALS: BP 148/52
[2022-02-05 06:24] LABS: HEMOGLOBIN 8.1 g/dl (12.0-15.5); MEAN CORPUSCULAR HEMOGLOBIN 31.8 pg (27.0-33.0); MEAN CORPUSCULAR HGB CONC 31.2 g/dl (32.0-36.5); PLATELET COUNT, AUTOMATED 152 10^3/uL (150-450); RED BLOOD COUNT 2.55 10^6/uL (4.00-5.40); WHITE BLOOD COUNT 9.2 10^3/uL (4.0-10.0)
[2022-02-05 06:46] LABS: ALBUMIN 2.3 G/DL (3.2-5.2); CALCIUM LEVEL 8.7 MG/DL (8.3-10.6); CREATININE FOR GFR 2.83 MG/DL (0.55-1.30); GLOMERULAR FILTRATION RATE 17.6 (>45); PHOSPHORUS LEVEL 4.5 MG/DL (2.4-5.1)
[2022-02-05 06:48] LABS: FERRITIN 1111.7 NG/ML (7.3-270.7); FOLATE 12.62 NG/ML (>5.4)
[2022-02-05] MEDS: LEVEMIR (INSULIN DETEMIR) 1 UNITS/0.01ML SC SCH ×2 (08:56→20:35)
[2022-02-05] MEDS: INSULIN LISPRO (NovoLOG) PER UNIT SC SCH ×4 (08:56→20:28)
[2022-02-05] MEDS: GABAPENTIN 300 MG CAP PO SCH ×3 (08:57→20:34)
[2022-02-05] MEDS: ASPIRIN 81MG ENTERIC TABLET PO SCH (08:57)
[2022-02-05] MEDS: PARoxetine 20MG TABLET PO SCH (08:57)
[2022-02-05] MEDS: TORSEMIDE (DEMADEX) 50 MG PER 1/2 TAB PO SCH (08:57)
[2022-02-05] MEDS: FERROUS SULFATE 325MG TAB PO SCH ×2 (08:57→20:34)
[2022-02-05] MEDS ORDERED: BENZONATATE 100MG CAPSULE PO PRN (09:00)
[2022-02-05 14:30] VITALS: BP 148/42
[2022-02-05 20:00] VITALS: BP 138/54
[2022-02-05] MEDS: allopurinoL 100 MG TAB PO SCH (20:34)
[2022-02-05] MEDS: ATORVASTATIN 20 MG TAB PO SCH (20:35)
[2022-02-06 05:35] LABS: HEMATOCRIT 26.6 % (36.0-47.0); HEMOGLOBIN 8.3 g/dl (12.0-15.5); MEAN CORPUSCULAR HEMOGLOBIN 31.7 pg (27.0-33.0); MEAN CORPUSCULAR HGB CONC 31.2 g/dl (32.0-36.5); MEAN CORPUSCULAR VOLUME 101.5 fl (80.0-96.0); PLATELET COUNT, AUTOMATED 178 10^3/uL (150-450); RED BLOOD COUNT 2.62 10^6/uL (4.00-5.40); WHITE BLOOD COUNT 9.1 10^3/uL (4.0-10.0)
[2022-02-06] MEDS: HEPARIN SOD (PORCINE) 5000UNITS/ML 1ML VIAL/SYRINGE SQ SCH ×3 (05:50→21:40)
[2022-02-06 05:53] LABS: CALCIUM LEVEL 8.8 MG/DL (8.3-10.6); CREATININE FOR GFR 2.6 MG/DL (0.55-1.30); GLOMERULAR FILTRATION RATE 19.4 (>45); PHOSPHORUS LEVEL 4.5 MG/DL (2.4-5.1)
[2022-02-06 06:00] VITALS: BP 166/63
[2022-02-06] MEDS: TORSEMIDE (DEMADEX) 50 MG PER 1/2 TAB PO SCH (08:33)
[2022-02-06] MEDS: GABAPENTIN 300 MG CAP PO SCH ×3 (08:33→21:39)
[2022-02-06] MEDS: FERROUS SULFATE 325MG TAB PO SCH ×2 (08:33→21:39)
[2022-02-06] MEDS: PARoxetine 20MG TABLET PO SCH (08:33)
[2022-02-06] MEDS: ASPIRIN 81MG ENTERIC TABLET PO SCH (08:33)
[2022-02-06] MEDS: INSULIN LISPRO (NovoLOG) PER UNIT SC SCH ×4 (08:34→21:00)
[2022-02-06] MEDS: LEVEMIR (INSULIN DETEMIR) 1 UNITS/0.01ML SC SCH ×2 (08:34→21:40)
[2022-02-06] MEDS: ACETAMINOPHEN TAB 650MG DOSE (2X325MG) PO PRN (08:39)
[2022-02-06 14:56] VITALS: BP 170/64
[2022-02-06 19:47] VITALS: BP 139/53
[2022-02-06] MEDS: ATORVASTATIN 20 MG TAB PO SCH (21:39)
[2022-02-06] MEDS: allopurinoL 100 MG TAB PO SCH (21:39)
[2022-02-07 05:42] VITALS: BP 153/50
[2022-02-07 05:59] LABS: CALCIUM LEVEL 8.8 MG/DL (8.3-10.6); CREATININE FOR GFR 2.29 MG/DL (0.55-1.30); GLOMERULAR FILTRATION RATE 22.5 (>45); PHOSPHORUS LEVEL 4.2 MG/DL (2.4-5.1); POTASSIUM SERUM 3.9 MMOL/L (3.5-5.1)
[2022-02-07] MEDS: HEPARIN SOD (PORCINE) 5000UNITS/ML 1ML VIAL/SYRINGE SQ SCH ×3 (06:11→21:10)
[2022-02-07] MEDS: INSULIN LISPRO (NovoLOG) PER UNIT SC SCH ×4 (07:30→21:00)
[2022-02-07] MEDS: ASPIRIN 81MG ENTERIC TABLET PO SCH (09:13)
[2022-02-07] MEDS: FERROUS SULFATE 325MG TAB PO SCH ×2 (09:13→21:10)
[2022-02-07] MEDS: PARoxetine 20MG TABLET PO SCH (09:13)
[2022-02-07] MEDS: GABAPENTIN 300 MG CAP PO SCH ×3 (09:13→21:10)
[2022-02-07] MEDS: TORSEMIDE (DEMADEX) 50 MG PER 1/2 TAB PO SCH (09:14)
[2022-02-07] MEDS: LEVEMIR (INSULIN DETEMIR) 1 UNITS/0.01ML SC SCH ×2 (09:15→21:09)
[2022-02-07 14:00] VITALS: BP 153/54
[2022-02-07 20:48] VITALS: BP 154/52
[2022-02-07] MEDS: ATORVASTATIN 20 MG TAB PO SCH (21:10)
[2022-02-07] MEDS: ACETAMINOPHEN TAB 650MG DOSE (2X325MG) PO PRN (21:10)
[2022-02-07] MEDS: allopurinoL 100 MG TAB PO SCH (21:10)
[2022-02-08 06:00] VITALS: BP 165/59
[2022-02-08] MEDS: HEPARIN SOD (PORCINE) 5000UNITS/ML 1ML VIAL/SYRINGE SQ SCH ×3 (06:18→20:06)
[2022-02-08] MEDS: GABAPENTIN 300 MG CAP PO SCH ×3 (08:07→20:05)
[2022-02-08] MEDS: FERROUS SULFATE 325MG TAB PO SCH ×2 (08:07→20:05)
[2022-02-08] MEDS: PARoxetine 20MG TABLET PO SCH (08:08)
[2022-02-08] MEDS: ASPIRIN 81MG ENTERIC TABLET PO SCH (08:08)
[2022-02-08] MEDS: TORSEMIDE (DEMADEX) 50 MG PER 1/2 TAB PO SCH (08:08)
[2022-02-08] MEDS: LEVEMIR (INSULIN DETEMIR) 1 UNITS/0.01ML SC SCH ×2 (08:10→20:42)
[2022-02-08] MEDS: INSULIN LISPRO (NovoLOG) PER UNIT SC SCH ×4 (08:11→20:42)
[2022-02-08 14:00] VITALS: BP 144/56
[2022-02-08] MEDS ORDERED: FERRIC CARBOXYMALTOSE INJ 750 MG, VIAL MATE ADAPTER 1 EACH in NS 250 ML IV ONE (17:00)
[2022-02-08] MEDS: ATORVASTATIN 20 MG TAB PO SCH (20:05)
[2022-02-08] MEDS: allopurinoL 100 MG TAB PO SCH (20:05)
[2022-02-08] MEDS: guaiFENesin SYRUP 200MG 10ML UDC PO PRN (20:42)
[2022-02-08 21:46] VITALS: BP 141/48
[2022-02-09] MEDS: guaiFENesin SYRUP 200MG 10ML UDC PO PRN ×3 (03:13→23:52)
[2022-02-09] MEDS: HEPARIN SOD (PORCINE) 5000UNITS/ML 1ML VIAL/SYRINGE SQ SCH ×3 (05:39→21:08)
[2022-02-09 06:00] VITALS: BP 144/50
[2022-02-09 07:03] LABS: HEMOGLOBIN 9.1 g/dl (12.0-15.5); MEAN CORPUSCULAR HGB CONC 30.3 g/dl (32.0-36.5); MEAN CORPUSCULAR VOLUME 105.6 fl (80.0-96.0); PLATELET COUNT, AUTOMATED 181 10^3/uL (150-450); RED BLOOD COUNT 2.84 10^6/uL (4.00-5.40); WHITE BLOOD COUNT 8.4 10^3/uL (4.0-10.0)
[2022-02-09] MEDS: INSULIN LISPRO (NovoLOG) PER UNIT SC SCH ×4 (07:17→21:00)
[2022-02-09] MEDS: LEVEMIR (INSULIN DETEMIR) 1 UNITS/0.01ML SC SCH ×2 (09:00→21:05)
[2022-02-09] MEDS: PARoxetine 20MG TABLET PO SCH (09:27)
[2022-02-09] MEDS: ASPIRIN 81MG ENTERIC TABLET PO SCH (09:27)
[2022-02-09] MEDS: FERROUS SULFATE 325MG TAB PO SCH ×2 (09:27→21:04)
[2022-02-09] MEDS: GABAPENTIN 300 MG CAP PO SCH ×3 (09:27→21:04)
[2022-02-09] MEDS: TORSEMIDE (DEMADEX) 50 MG PER 1/2 TAB PO SCH (09:27)
[2022-02-09 14:10] VITALS: BP 143/59
[2022-02-09 20:35] VITALS: BP 144/50
[2022-02-09] MEDS: allopurinoL 100 MG TAB PO SCH (21:04)
[2022-02-09] MEDS: ATORVASTATIN 20 MG TAB PO SCH (21:04)
[2022-02-10] MEDS: HEPARIN SOD (PORCINE) 5000UNITS/ML 1ML VIAL/SYRINGE SQ SCH (05:19)
[2022-02-10 05:31] VITALS: BP 159/61
[2022-02-10] MEDS: TORSEMIDE (DEMADEX) 50 MG PER 1/2 TAB PO SCH (07:40)
[2022-02-10] MEDS: ASPIRIN 81MG ENTERIC TABLET PO SCH (07:40)
[2022-02-10] MEDS: LEVEMIR (INSULIN DETEMIR) 1 UNITS/0.01ML SC SCH (07:40)
[2022-02-10] MEDS: PARoxetine 20MG TABLET PO SCH (07:40)
[2022-02-10] MEDS: GABAPENTIN 300 MG CAP PO SCH (07:40)
[2022-02-10] MEDS: INSULIN LISPRO (NovoLOG) PER UNIT SC SCH ×2 (07:41→11:53)
[2022-02-10] MEDS: FERROUS SULFATE 325MG TAB PO SCH (07:41)
[2022-02-10] MEDS: guaiFENesin SYRUP 200MG 10ML UDC PO PRN (08:43)
[2022-02-10 08:49] LABS: CALCIUM LEVEL 8.7 MG/DL (8.3-10.6); CREATININE FOR GFR 2.14 MG/DL (0.55-1.30); GLOMERULAR FILTRATION RATE 24.3 (>45); POTASSIUM SERUM 4.4 MMOL/L (3.5-5.1)
== END 2022-02-10 12:05 | DRG 981 ==
LOC: M OR 09:25 → EDSTATUS 11:30 → M MS5PR 16:35
PROVIDERS: ADMIT Surgery Vascular Surgery; ATTEND Internal Medicine
PROC: 0YQJ0ZZ Repair Left Lower Leg, Open Approach (ICD-10-PCS; 2022-01-31)
PROC: 0QBH0ZZ Excision of Left Tibia, Open Approach (ICD-10-PCS; principal; 2022-01-31 11:30)
DX: J95.89 Other postprocedural complications and disorders of respiratory system, not elsewhere classified (principal); I50.33 Acute on chronic diastolic (congestive) heart failure; N18.5 Chronic kidney disease, stage 5; I13.2 Hypertensive heart and chronic kidney disease with heart failure and with stage 5 chronic kidney disease, or end stage renal disease; E66.2 Morbid (severe) obesity with alveolar hypoventilation; A52.16 Charcot's arthropathy (tabetic); G93.40 Encephalopathy, unspecified; M86.9 Osteomyelitis, unspecified; N17.9 Acute kidney failure, unspecified; E11.42 Type 2 diabetes mellitus with diabetic polyneuropathy; E11.319 Type 2 diabetes mellitus with unspecified diabetic retinopathy without macular edema; E78.5 Hyperlipidemia, unspecified; E11.22 Type 2 diabetes mellitus with diabetic chronic kidney disease; E11.51 Type 2 diabetes mellitus with diabetic peripheral angiopathy without gangrene; Z89.512 Acquired absence of left leg below knee; I49.5 Sick sinus syndrome; M54.9 Dorsalgia, unspecified; G89.29 Other chronic pain; I73.9 Peripheral vascular disease, unspecified; I25.10 Atherosclerotic heart disease of native coronary artery without angina pectoris; F32.A Depression, unspecified; Z87.891 Personal history of nicotine dependence; Z79.82 Long term (current) use of aspirin; Z79.4 Long term (current) use of insulin; Z79.899 Other long term (current) drug therapy; Z88.2 Allergy status to sulfonamides; Z88.5 Allergy status to narcotic agent; Z88.8 Allergy status to other drugs, medicaments and biological substances; Z91.048 Other nonmedicinal substance allergy status

== ENCOUNTER 2022-02-10 10:09 | Inpatient (IN) | payer OTHER ==
[~2022-02-10] VITALS: Ht 177.8 cm; Wt 117.5 kg
[~2022-02-10 10:09] MED LIST changes: +LIDO1PAD TD; +NYST-38 SS; -NYST50SS SS; +SILV50CR TD; -TORSEMIDE 100 MG TAB PO SCH; -ceFAZolin SOD 2 GM in IV 1 EA IV ONE
[2022-02-10 12:20] VITALS: BP 172/58
[2022-02-10] MEDS ORDERED: DEXTROSE 50% 50ML SYRINGE IV PRN (13:50)
[2022-02-10] MEDS ORDERED: GLUCOSE 4GM CHEW TABLET PO PRN (13:50)
[2022-02-10] MEDS ORDERED: GLUCAGON INJ 1MG VIAL SC PRN (13:50)
[2022-02-10] MEDS ORDERED: BISACODYL 10MG SUPP PR PRN (13:50)
[2022-02-10 14:00] VITALS: BP 138/56
[2022-02-10] MEDS: COMBIVENT RESPIMAT 100-20MCG INHALER 4GM INH SCH ×2 (14:00→20:11)
[2022-02-10] MEDS: REMEDY PHYTOPLEX Z-GUARD PASTE 113GM TUBE (FROM STOREROOM PRODUCT) TOP SCH ×2 (16:00→21:08)
[2022-02-10] MEDS: guaiFENesin 200 MG TAB PO SCH ×2 (16:56→21:06)
[2022-02-10] MEDS: GABAPENTIN 300 MG CAP PO SCH ×2 (16:56→21:06)
[2022-02-10] MEDS: INSULIN LISPRO (NovoLOG) PER UNIT SC SCH ×2 (16:57→21:00)
[2022-02-10 20:00] VITALS: BP 136/52
[2022-02-10] MEDS: SENNA 8.6 MG TAB (SENOKOT) PO SCH (20:59)
[2022-02-10] MEDS: allopurinoL 100 MG TAB PO SCH (21:06)
[2022-02-10] MEDS: DOCUSATE SODIUM 100MG CAPSULE PO SCH (21:06)
[2022-02-10] MEDS: ATORVASTATIN 20 MG TAB PO SCH (21:06)
[2022-02-10] MEDS: FERROUS SULFATE 325MG TAB PO SCH (21:06)
[2022-02-10] MEDS: LEVEMIR (INSULIN DETEMIR) 1 UNITS/0.01ML SC SCH (21:06)
[2022-02-10] MEDS: HEPARIN SOD (PORCINE) 5000UNITS/ML 1ML VIAL/SYRINGE SC SCH (21:07)
[2022-02-11 06:56] LABS: BASO # 0.1 10^3/uL (0.0-0.2); BASO % 0.5 % (0.0-1.0); EOS # 0.4 10^3/uL (0.0-0.5); EOS % 4.1 % (0.0-3.0); HEMOGLOBIN 8.3 g/dl (12.0-15.5); LYMPH # 1.5 10^3/uL (1.5-5.0); LYMPH % 14.9 % (24.0-44.0); MEAN CORPUSCULAR HEMOGLOBIN 31.6 pg (27.0-33.0); MEAN CORPUSCULAR HGB CONC 30.7 g/dl (32.0-36.5); MEAN CORPUSCULAR VOLUME 102.7 fl (80.0-96.0); MONO # 0.7 10^3/uL (0.0-0.8); MONO % 7.5 % (2.0-8.0); NEUTROPHILS # 7.1 10^3/uL (1.5-8.5); NEUTROPHILS % 71.7 % (36.0-66.0); PLATELET COUNT, AUTOMATED 193 10^3/uL (150-450); RED BLOOD COUNT 2.63 10^6/uL (4.00-5.40); WHITE BLOOD COUNT 9.9 10^3/uL (4.0-10.0)
[2022-02-11 07:23] LABS: ALBUMIN 2.3 G/DL (3.2-5.2); ALKALINE PHOSPHATASE 99 U/L (46-116); ALT/SGPT < 9 U/L (7.0-40); AST/SGOT 12 U/L (<34); BILIRUBIN,TOTAL 0.4 MG/DL (0.3-1.2); BLOOD UREA NITROGEN 87 MG/DL (9-23); CALCIUM LEVEL 8.5 MG/DL (8.3-10.6); CARBON DIOXIDE LEVEL 29 MMOL/L (20-31); CHLORIDE LEVEL 100 MMOL/L (98-107); CREATININE FOR GFR 2.27 MG/DL (0.55-1.30); GLOMERULAR FILTRATION RATE 22.7 (>45); GLUCOSE, FASTING 107 MG/DL (74-106); POTASSIUM SERUM 4.1 MMOL/L (3.5-5.1); SODIUM LEVEL 139 MMOL/L (136-145); TOTAL PROTEIN 5.3 G/DL (5.7-8.2)
[2022-02-11] MEDS: COMBIVENT RESPIMAT 100-20MCG INHALER 4GM INH SCH ×3 (07:52→20:31)
[2022-02-11] MEDS: REMEDY PHYTOPLEX Z-GUARD PASTE 113GM TUBE (FROM STOREROOM PRODUCT) TOP SCH ×3 (09:00→20:38)
[2022-02-11] MEDS: PANTOPRAZOLE 40MG TAB (PROTONIX) PO SCH (09:07)
[2022-02-11] MEDS: LEVEMIR (INSULIN DETEMIR) 1 UNITS/0.01ML SC SCH ×2 (09:07→20:36)
[2022-02-11] MEDS: PARoxetine 20MG TABLET PO SCH (09:07)
[2022-02-11] MEDS: INSULIN LISPRO (NovoLOG) PER UNIT SC SCH ×4 (09:07→20:36)
[2022-02-11] MEDS: HEPARIN SOD (PORCINE) 5000UNITS/ML 1ML VIAL/SYRINGE SC SCH ×2 (09:07→20:35)
[2022-02-11] MEDS: TORSEMIDE (DEMADEX) 50 MG PER 1/2 TAB PO SCH (09:08)
[2022-02-11] MEDS: guaiFENesin 200 MG TAB PO SCH ×3 (09:08→20:35)
[2022-02-11] MEDS: ASPIRIN 81MG ENTERIC TABLET PO SCH (09:08)
[2022-02-11] MEDS: DOCUSATE SODIUM 100MG CAPSULE PO SCH ×2 (09:08→20:35)
[2022-02-11] MEDS: FERROUS SULFATE 325MG TAB PO SCH ×2 (09:08→20:37)
[2022-02-11] MEDS: GABAPENTIN 300 MG CAP PO SCH ×3 (09:08→20:35)
[2022-02-11 20:00] VITALS: BP 142/64
[2022-02-11] MEDS: ATORVASTATIN 20 MG TAB PO SCH (20:35)
[2022-02-11] MEDS: SENNA 8.6 MG TAB (SENOKOT) PO SCH (20:35)
[2022-02-11] MEDS: allopurinoL 100 MG TAB PO SCH (20:35)
[2022-02-12 06:42] LABS: BASO # 0.1 10^3/uL (0.0-0.2); BASO % 0.7 % (0.0-1.0); EOS # 0.5 10^3/uL (0.0-0.5); EOS % 4.3 % (0.0-3.0); HEMATOCRIT 28.2 % (36.0-47.0); HEMOGLOBIN 8.6 g/dl (12.0-15.5); LYMPH # 1.4 10^3/uL (1.5-5.0); LYMPH % 13.6 % (24.0-44.0); MEAN CORPUSCULAR HEMOGLOBIN 31.5 pg (27.0-33.0); MEAN CORPUSCULAR HGB CONC 30.5 g/dl (32.0-36.5); MEAN CORPUSCULAR VOLUME 103.3 fl (80.0-96.0); MONO # 0.8 10^3/uL (0.0-0.8); MONO % 7.2 % (2.0-8.0); NEUTROPHILS # 7.7 10^3/uL (1.5-8.5); NEUTROPHILS % 72.9 % (36.0-66.0); PLATELET COUNT, AUTOMATED 209 10^3/uL (150-450); RED BLOOD COUNT 2.73 10^6/uL (4.00-5.40); WHITE BLOOD COUNT 10.6 10^3/uL (4.0-10.0)
[2022-02-12 06:59] VITALS: BP 132/54
[2022-02-12 07:09] LABS: CALCIUM LEVEL 9.3 MG/DL (8.3-10.6); CREATININE FOR GFR 2.33 MG/DL (0.55-1.30); POTASSIUM SERUM 4.2 MMOL/L (3.5-5.1)
[2022-02-12] MEDS: COMBIVENT RESPIMAT 100-20MCG INHALER 4GM INH SCH ×3 (07:19→20:01)
[2022-02-12] MEDS: INSULIN LISPRO (NovoLOG) PER UNIT SC SCH ×4 (07:30→20:50)
[2022-02-12] MEDS: LEVEMIR (INSULIN DETEMIR) 1 UNITS/0.01ML SC SCH ×2 (09:00→20:50)
[2022-02-12] MEDS: REMEDY PHYTOPLEX Z-GUARD PASTE 113GM TUBE (FROM STOREROOM PRODUCT) TOP SCH ×3 (09:00→20:52)
[2022-02-12] MEDS: ASPIRIN 81MG ENTERIC TABLET PO SCH (09:58)
[2022-02-12] MEDS: DOCUSATE SODIUM 100MG CAPSULE PO SCH ×2 (09:58→20:51)
[2022-02-12] MEDS: TORSEMIDE (DEMADEX) 50 MG PER 1/2 TAB PO SCH (09:59)
[2022-02-12] MEDS: PANTOPRAZOLE 40MG TAB (PROTONIX) PO SCH (09:59)
[2022-02-12] MEDS: PARoxetine 20MG TABLET PO SCH (09:59)
[2022-02-12] MEDS: GABAPENTIN 300 MG CAP PO SCH ×3 (09:59→20:49)
[2022-02-12] MEDS: HEPARIN SOD (PORCINE) 5000UNITS/ML 1ML VIAL/SYRINGE SC SCH ×2 (09:59→20:50)
[2022-02-12] MEDS: guaiFENesin 200 MG TAB PO SCH ×3 (09:59→20:49)
[2022-02-12] MEDS: FERROUS SULFATE 325MG TAB PO SCH ×2 (09:59→20:49)
[2022-02-12 14:00] VITALS: BP 146/52
[2022-02-12] MEDS: ACETAMINOPHEN TAB 650MG DOSE (2X325MG) PO PRN (17:03)
[2022-02-12 20:00] VITALS: BP 126/74
[2022-02-12] MEDS: allopurinoL 100 MG TAB PO SCH (20:49)
[2022-02-12] MEDS: ATORVASTATIN 20 MG TAB PO SCH (20:49)
[2022-02-12] MEDS: SENNA 8.6 MG TAB (SENOKOT) PO SCH (20:51)
[2022-02-13 06:00] VITALS: BP 128/72
[2022-02-13] MEDS: COMBIVENT RESPIMAT 100-20MCG INHALER 4GM INH SCH ×3 (08:23→18:10)
[2022-02-13] MEDS: REMEDY PHYTOPLEX Z-GUARD PASTE 113GM TUBE (FROM STOREROOM PRODUCT) TOP SCH ×3 (09:00→21:08)
[2022-02-13] MEDS: LEVEMIR (INSULIN DETEMIR) 1 UNITS/0.01ML SC SCH ×2 (09:36→21:10)
[2022-02-13] MEDS: INSULIN LISPRO (NovoLOG) PER UNIT SC SCH ×4 (09:36→20:46)
[2022-02-13] MEDS: GABAPENTIN 300 MG CAP PO SCH ×3 (09:37→21:09)
[2022-02-13] MEDS: ASPIRIN 81MG ENTERIC TABLET PO SCH (09:37)
[2022-02-13] MEDS: TORSEMIDE (DEMADEX) 50 MG PER 1/2 TAB PO SCH (09:37)
[2022-02-13] MEDS: PARoxetine 20MG TABLET PO SCH (09:37)
[2022-02-13] MEDS: DOCUSATE SODIUM 100MG CAPSULE PO SCH ×2 (09:37→21:00)
[2022-02-13] MEDS: FERROUS SULFATE 325MG TAB PO SCH ×2 (09:37→21:08)
[2022-02-13] MEDS: PANTOPRAZOLE 40MG TAB (PROTONIX) PO SCH (09:37)
[2022-02-13] MEDS: guaiFENesin 200 MG TAB PO SCH ×3 (09:37→21:08)
[2022-02-13] MEDS: HEPARIN SOD (PORCINE) 5000UNITS/ML 1ML VIAL/SYRINGE SC SCH ×2 (09:38→21:10)
[2022-02-13] MEDS: FLUTICASONE PROP 0.05% NASAL SPRAY 16 GM (FLONASE) NARES SCH ×2 (11:02→21:08)
[2022-02-13] MEDS: SODIUM CHLORIDE NASAL 0.65% SPRAY BTL (OCEAN) SCH ×3 (11:03→21:00)
[2022-02-13 14:00] VITALS: BP 140/60
[2022-02-13] MEDS: ACETAMINOPHEN TAB 650MG DOSE (2X325MG) PO PRN ×2 (17:05→21:09)
[2022-02-13 20:00] VITALS: BP 114/42
[2022-02-13] MEDS: SENNA 8.6 MG TAB (SENOKOT) PO SCH (21:00)
[2022-02-13] MEDS: ATORVASTATIN 20 MG TAB PO SCH (21:08)
[2022-02-13] MEDS: allopurinoL 100 MG TAB PO SCH (21:09)
[2022-02-14] MEDS: ACETAMINOPHEN TAB 650MG DOSE (2X325MG) PO PRN ×2 (02:08→21:47)
[2022-02-14 06:00] VITALS: BP 128/64
[2022-02-14] MEDS: COMBIVENT RESPIMAT 100-20MCG INHALER 4GM INH SCH ×3 (06:51→19:17)
[2022-02-14] MEDS: INSULIN LISPRO (NovoLOG) PER UNIT SC SCH ×4 (07:30→21:00)
[2022-02-14] MEDS: LEVEMIR (INSULIN DETEMIR) 1 UNITS/0.01ML SC SCH ×2 (09:00→21:39)
[2022-02-14] MEDS: REMEDY PHYTOPLEX Z-GUARD PASTE 113GM TUBE (FROM STOREROOM PRODUCT) TOP SCH ×3 (09:00→21:00)
[2022-02-14 09:15] LABS: BASO # 0.1 10^3/uL (0.0-0.2); BASO % 0.6 % (0.0-1.0); EOS # 0.6 10^3/uL (0.0-0.5); EOS % 5.2 % (0.0-3.0); HEMATOCRIT 29.5 % (36.0-47.0); HEMOGLOBIN 9.3 g/dl (12.0-15.5); LYMPH # 1.7 10^3/uL (1.5-5.0); LYMPH % 15.8 % (24.0-44.0); MEAN CORPUSCULAR HEMOGLOBIN 32.7 pg (27.0-33.0); MEAN CORPUSCULAR HGB CONC 31.5 g/dl (32.0-36.5); MEAN CORPUSCULAR VOLUME 103.9 fl (80.0-96.0); MONO # 0.8 10^3/uL (0.0-0.8); MONO % 7.5 % (2.0-8.0); NEUTROPHILS # 7.5 10^3/uL (1.5-8.5); NEUTROPHILS % 69.4 % (36.0-66.0); PLATELET COUNT, AUTOMATED 223 10^3/uL (150-450); RED BLOOD COUNT 2.84 10^6/uL (4.00-5.40); WHITE BLOOD COUNT 10.8 10^3/uL (4.0-10.0)
[2022-02-14] MEDS: FERROUS SULFATE 325MG TAB PO SCH ×2 (09:18→21:40)
[2022-02-14] MEDS: TORSEMIDE (DEMADEX) 50 MG PER 1/2 TAB PO SCH (09:18)
[2022-02-14] MEDS: GABAPENTIN 300 MG CAP PO SCH ×3 (09:18→21:40)
[2022-02-14] MEDS: DOCUSATE SODIUM 100MG CAPSULE PO SCH ×2 (09:18→21:00)
[2022-02-14] MEDS: ASPIRIN 81MG ENTERIC TABLET PO SCH (09:18)
[2022-02-14] MEDS: PARoxetine 20MG TABLET PO SCH (09:19)
[2022-02-14] MEDS: guaiFENesin 200 MG TAB PO SCH ×3 (09:19→21:40)
[2022-02-14] MEDS: HEPARIN SOD (PORCINE) 5000UNITS/ML 1ML VIAL/SYRINGE SC SCH ×2 (09:19→21:39)
[2022-02-14] MEDS: PANTOPRAZOLE 40MG TAB (PROTONIX) PO SCH (09:19)
[2022-02-14] MEDS: SODIUM CHLORIDE NASAL 0.65% SPRAY BTL (OCEAN) SCH ×3 (09:20→21:38)
[2022-02-14] MEDS: FLUTICASONE PROP 0.05% NASAL SPRAY 16 GM (FLONASE) NARES SCH ×2 (09:20→21:38)
[2022-02-14 09:40] LABS: CALCIUM LEVEL 9.3 MG/DL (8.3-10.6); CREATININE FOR GFR 2.4 MG/DL (0.55-1.30); GLOMERULAR FILTRATION RATE 21.3 (>45); POTASSIUM SERUM 4.2 MMOL/L (3.5-5.1)
[2022-02-14 14:00] VITALS: BP 157/58
[2022-02-14 20:50] VITALS: BP 142/72
[2022-02-14] MEDS: SENNA 8.6 MG TAB (SENOKOT) PO SCH (21:00)
[2022-02-14] MEDS: ATORVASTATIN 20 MG TAB PO SCH (21:40)
[2022-02-14] MEDS: allopurinoL 100 MG TAB PO SCH (21:41)
[2022-02-15 05:30] VITALS: BP 118/62
[2022-02-15] MEDS: COMBIVENT RESPIMAT 100-20MCG INHALER 4GM INH SCH ×3 (08:00→19:54)
[2022-02-15] MEDS: LEVEMIR (INSULIN DETEMIR) 1 UNITS/0.01ML SC SCH ×2 (08:09→20:18)
[2022-02-15] MEDS: INSULIN LISPRO (NovoLOG) PER UNIT SC SCH ×4 (08:09→20:20)
[2022-02-15] MEDS: PARoxetine 20MG TABLET PO SCH (08:09)
[2022-02-15] MEDS: GABAPENTIN 300 MG CAP PO SCH ×3 (08:10→20:18)
[2022-02-15] MEDS: HEPARIN SOD (PORCINE) 5000UNITS/ML 1ML VIAL/SYRINGE SC SCH ×2 (08:10→20:18)
[2022-02-15] MEDS: guaiFENesin 200 MG TAB PO SCH ×3 (08:10→20:19)
[2022-02-15] MEDS: FERROUS SULFATE 325MG TAB PO SCH ×2 (08:10→20:18)
[2022-02-15] MEDS: DOCUSATE SODIUM 100MG CAPSULE PO SCH ×2 (08:10→20:19)
[2022-02-15] MEDS: PANTOPRAZOLE 40MG TAB (PROTONIX) PO SCH (08:10)
[2022-02-15] MEDS: TORSEMIDE (DEMADEX) 50 MG PER 1/2 TAB PO SCH (08:10)
[2022-02-15] MEDS: ASPIRIN 81MG ENTERIC TABLET PO SCH (08:10)
[2022-02-15] MEDS: REMEDY PHYTOPLEX Z-GUARD PASTE 113GM TUBE (FROM STOREROOM PRODUCT) TOP SCH ×3 (08:11→20:21)
[2022-02-15] MEDS: SODIUM CHLORIDE NASAL 0.65% SPRAY BTL (OCEAN) SCH ×3 (08:13→20:21)
[2022-02-15] MEDS: FLUTICASONE PROP 0.05% NASAL SPRAY 16 GM (FLONASE) NARES SCH ×2 (08:13→20:21)
[2022-02-15 09:17] LABS: BASO # 0.1 10^3/uL (0.0-0.2); BASO % 0.8 % (0.0-1.0); EOS # 0.5 10^3/uL (0.0-0.5); EOS % 5.1 % (0.0-3.0); HEMATOCRIT 28.6 % (36.0-47.0); HEMOGLOBIN 8.7 g/dl (12.0-15.5); LYMPH # 1.3 10^3/uL (1.5-5.0); LYMPH % 12.9 % (24.0-44.0); MEAN CORPUSCULAR HEMOGLOBIN 32.1 pg (27.0-33.0); MEAN CORPUSCULAR HGB CONC 30.4 g/dl (32.0-36.5); MEAN CORPUSCULAR VOLUME 105.5 fl (80.0-96.0); MONO # 0.8 10^3/uL (0.0-0.8); MONO % 7.7 % (2.0-8.0); NEUTROPHILS # 7.2 10^3/uL (1.5-8.5); NEUTROPHILS % 72.4 % (36.0-66.0); PLATELET COUNT, AUTOMATED 179 10^3/uL (150-450); RED BLOOD COUNT 2.71 10^6/uL (4.00-5.40)
[2022-02-15] MEDS: ACETAMINOPHEN TAB 650MG DOSE (2X325MG) PO PRN (10:15)
[2022-02-15] MEDS: LIDOCAINE 5% (LIDODERM) PATCH TD SCH (12:28)
[2022-02-15] MEDS: SPIRONOLACTONE 25 MG TAB PO SCH (12:53)
[2022-02-15 14:00] VITALS: BP 143/73
[2022-02-15 20:00] VITALS: BP 158/68
[2022-02-15] MEDS: ATORVASTATIN 20 MG TAB PO SCH (20:19)
[2022-02-15] MEDS: SENNA 8.6 MG TAB (SENOKOT) PO SCH (20:19)
[2022-02-15] MEDS: allopurinoL 100 MG TAB PO SCH (20:20)
[2022-02-16] MEDS: ACETAMINOPHEN TAB 650MG DOSE (2X325MG) PO PRN ×3 (02:05→12:28)
[2022-02-16 05:35] VITALS: BP 112/58
[2022-02-16] MEDS: COMBIVENT RESPIMAT 100-20MCG INHALER 4GM INH SCH ×3 (07:29→20:50)
[2022-02-16] MEDS: INSULIN LISPRO (NovoLOG) PER UNIT SC SCH ×4 (07:30→20:21)
[2022-02-16] MEDS: GABAPENTIN 300 MG CAP PO SCH ×3 (08:40→20:28)
[2022-02-16] MEDS: guaiFENesin 200 MG TAB PO SCH ×3 (08:40→20:28)
[2022-02-16] MEDS: SPIRONOLACTONE 25 MG TAB PO SCH (08:41)
[2022-02-16] MEDS: PANTOPRAZOLE 40MG TAB (PROTONIX) PO SCH (08:41)
[2022-02-16] MEDS: LIDOCAINE 5% (LIDODERM) PATCH TD SCH (08:41)
[2022-02-16] MEDS: PARoxetine 20MG TABLET PO SCH (08:41)
[2022-02-16] MEDS: TORSEMIDE (DEMADEX) 50 MG PER 1/2 TAB PO SCH (08:41)
[2022-02-16] MEDS: FERROUS SULFATE 325MG TAB PO SCH ×2 (08:41→20:28)
[2022-02-16] MEDS: ASPIRIN 81MG ENTERIC TABLET PO SCH (08:41)
[2022-02-16] MEDS: DOCUSATE SODIUM 100MG CAPSULE PO SCH ×2 (08:41→20:23)
[2022-02-16] MEDS: SODIUM CHLORIDE NASAL 0.65% SPRAY BTL (OCEAN) SCH ×3 (08:42→20:29)
[2022-02-16] MEDS: HEPARIN SOD (PORCINE) 5000UNITS/ML 1ML VIAL/SYRINGE SC SCH ×2 (08:42→20:28)
[2022-02-16] MEDS: LEVEMIR (INSULIN DETEMIR) 1 UNITS/0.01ML SC SCH ×2 (08:42→20:29)
[2022-02-16] MEDS: REMEDY PHYTOPLEX Z-GUARD PASTE 113GM TUBE (FROM STOREROOM PRODUCT) TOP SCH ×3 (08:43→20:30)
[2022-02-16] MEDS: FLUTICASONE PROP 0.05% NASAL SPRAY 16 GM (FLONASE) NARES SCH ×2 (08:43→20:29)
[2022-02-16 14:00] VITALS: BP 130/55
[2022-02-16 20:00] VITALS: BP 138/52
[2022-02-16] MEDS: SENNA 8.6 MG TAB (SENOKOT) PO SCH ×2 (20:22→20:41)
[2022-02-16] MEDS: ATORVASTATIN 20 MG TAB PO SCH (20:28)
[2022-02-16] MEDS: allopurinoL 100 MG TAB PO SCH (20:28)
[2022-02-17] MEDS: ACETAMINOPHEN TAB 650MG DOSE (2X325MG) PO PRN ×3 (01:14→21:03)
[2022-02-17 06:00] VITALS: BP 142/60
[2022-02-17] MEDS: COMBIVENT RESPIMAT 100-20MCG INHALER 4GM INH SCH ×3 (06:11→20:20)
[2022-02-17 08:13] LABS: BASO # 0.1 10^3/uL (0.0-0.2); BASO % 0.7 % (0.0-1.0); EOS # 0.4 10^3/uL (0.0-0.5); HEMATOCRIT 28.2 % (36.0-47.0); HEMOGLOBIN 8.6 g/dl (12.0-15.5); LYMPH # 1.1 10^3/uL (1.5-5.0); MEAN CORPUSCULAR HGB CONC 30.5 g/dl (32.0-36.5); MEAN CORPUSCULAR VOLUME 104.8 fl (80.0-96.0); MONO # 0.8 10^3/uL (0.0-0.8); MONO % 7.7 % (2.0-8.0); NEUTROPHILS # 7.5 10^3/uL (1.5-8.5); NEUTROPHILS % 75.2 % (36.0-66.0); PLATELET COUNT, AUTOMATED 174 10^3/uL (150-450); RED BLOOD COUNT 2.69 10^6/uL (4.00-5.40); WHITE BLOOD COUNT 9.9 10^3/uL (4.0-10.0)
[2022-02-17 08:41] LABS: CALCIUM LEVEL 8.7 MG/DL (8.3-10.6); CREATININE FOR GFR 2.51 MG/DL (0.55-1.30); GLOMERULAR FILTRATION RATE 20.2 (>45); POTASSIUM SERUM 4.3 MMOL/L (3.5-5.1)
[2022-02-17] MEDS: REMEDY PHYTOPLEX Z-GUARD PASTE 113GM TUBE (FROM STOREROOM PRODUCT) TOP SCH ×3 (09:00→21:00)
[2022-02-17] MEDS: SODIUM CHLORIDE NASAL 0.65% SPRAY BTL (OCEAN) SCH ×3 (09:00→21:00)
[2022-02-17] MEDS: DOCUSATE SODIUM 100MG CAPSULE PO SCH ×2 (09:00→20:59)
[2022-02-17] MEDS: GABAPENTIN 300 MG CAP PO SCH ×3 (10:08→20:59)
[2022-02-17] MEDS: SPIRONOLACTONE 25 MG TAB PO SCH (10:09)
[2022-02-17] MEDS: guaiFENesin 200 MG TAB PO SCH ×3 (10:09→20:59)
[2022-02-17] MEDS: ASPIRIN 81MG ENTERIC TABLET PO SCH (10:09)
[2022-02-17] MEDS: PARoxetine 20MG TABLET PO SCH (10:09)
[2022-02-17] MEDS: FERROUS SULFATE 325MG TAB PO SCH ×2 (10:10→20:59)
[2022-02-17] MEDS: PANTOPRAZOLE 40MG TAB (PROTONIX) PO SCH (10:10)
[2022-02-17] MEDS: TORSEMIDE (DEMADEX) 50 MG PER 1/2 TAB PO SCH (10:10)
[2022-02-17] MEDS: HEPARIN SOD (PORCINE) 5000UNITS/ML 1ML VIAL/SYRINGE SC SCH ×2 (10:11→20:59)
[2022-02-17] MEDS: LEVEMIR (INSULIN DETEMIR) 1 UNITS/0.01ML SC SCH ×2 (10:11→20:59)
[2022-02-17] MEDS: INSULIN LISPRO (NovoLOG) PER UNIT SC SCH ×4 (10:12→20:51)
[2022-02-17] MEDS: FLUTICASONE PROP 0.05% NASAL SPRAY 16 GM (FLONASE) NARES SCH ×2 (10:13→21:00)
[2022-02-17] MEDS: LIDOCAINE 5% (LIDODERM) PATCH TD SCH ×2 (10:13→21:00)
[2022-02-17 14:00] VITALS: BP 143/63
[2022-02-17 20:00] VITALS: BP 116/42
[2022-02-17] MEDS: ATORVASTATIN 20 MG TAB PO SCH (20:59)
[2022-02-17] MEDS: allopurinoL 100 MG TAB PO SCH (20:59)
[2022-02-17] MEDS: SENNA 8.6 MG TAB (SENOKOT) PO SCH (21:00)
[2022-02-18] MEDS: ACETAMINOPHEN TAB 650MG DOSE (2X325MG) PO PRN ×3 (01:20→21:20)
[2022-02-18 05:38] VITALS: BP 126/50
[2022-02-18] MEDS: COMBIVENT RESPIMAT 100-20MCG INHALER 4GM INH SCH ×3 (08:00→20:00)
[2022-02-18] MEDS: SODIUM CHLORIDE NASAL 0.65% SPRAY BTL (OCEAN) SCH ×3 (09:00→21:00)
[2022-02-18] MEDS: REMEDY PHYTOPLEX Z-GUARD PASTE 113GM TUBE (FROM STOREROOM PRODUCT) TOP SCH ×3 (09:00→21:00)
[2022-02-18] MEDS: DOCUSATE SODIUM 100MG CAPSULE PO SCH ×2 (09:20→21:00)
[2022-02-18] MEDS: FERROUS SULFATE 325MG TAB PO SCH ×2 (09:27→21:18)
[2022-02-18] MEDS: GABAPENTIN 300 MG CAP PO SCH ×3 (09:27→21:19)
[2022-02-18] MEDS: ASPIRIN 81MG ENTERIC TABLET PO SCH (09:27)
[2022-02-18] MEDS: guaiFENesin 200 MG TAB PO SCH ×3 (09:28→21:18)
[2022-02-18] MEDS: LEVEMIR (INSULIN DETEMIR) 1 UNITS/0.01ML SC SCH ×2 (09:34→21:19)
[2022-02-18] MEDS: HEPARIN SOD (PORCINE) 5000UNITS/ML 1ML VIAL/SYRINGE SC SCH ×2 (09:35→21:19)
[2022-02-18] MEDS: INSULIN LISPRO (NovoLOG) PER UNIT SC SCH ×4 (09:35→21:00)
[2022-02-18] MEDS: PANTOPRAZOLE 40MG TAB (PROTONIX) PO SCH (09:40)
[2022-02-18] MEDS: PARoxetine 20MG TABLET PO SCH (09:41)
[2022-02-18] MEDS: SPIRONOLACTONE 25 MG TAB PO SCH (09:41)
[2022-02-18] MEDS: TORSEMIDE (DEMADEX) 50 MG PER 1/2 TAB PO SCH (09:41)
[2022-02-18] MEDS: FLUTICASONE PROP 0.05% NASAL SPRAY 16 GM (FLONASE) NARES SCH ×2 (09:45→21:23)
[2022-02-18] MEDS ORDERED: metOLazone 5 MG TAB PO ONE (12:00)
[2022-02-18 14:00] VITALS: BP 143/64
[2022-02-18 20:00] VITALS: BP 132/86
[2022-02-18] MEDS: SENNA 8.6 MG TAB (SENOKOT) PO SCH (21:00)
[2022-02-18] MEDS: allopurinoL 100 MG TAB PO SCH (21:18)
[2022-02-18] MEDS: ATORVASTATIN 20 MG TAB PO SCH (21:18)
[2022-02-19 06:00] VITALS: BP 128/62
[2022-02-19] MEDS: COMBIVENT RESPIMAT 100-20MCG INHALER 4GM INH SCH ×3 (07:59→19:19)
[2022-02-19] MEDS: REMEDY PHYTOPLEX Z-GUARD PASTE 113GM TUBE (FROM STOREROOM PRODUCT) TOP SCH ×3 (09:00→21:00)
[2022-02-19] MEDS: DOCUSATE SODIUM 100MG CAPSULE PO SCH ×3 (09:00→21:05)
[2022-02-19] MEDS: SODIUM CHLORIDE NASAL 0.65% SPRAY BTL (OCEAN) SCH ×3 (09:00→21:07)
[2022-02-19] MEDS ORDERED: TORSEMIDE 20 MG TAB PO SCH (09:00)
[2022-02-19] MEDS: LEVEMIR (INSULIN DETEMIR) 1 UNITS/0.01ML SC SCH ×2 (09:08→21:06)
[2022-02-19] MEDS: INSULIN LISPRO (NovoLOG) PER UNIT SC SCH ×4 (09:08→21:00)
[2022-02-19] MEDS: PANTOPRAZOLE 40MG TAB (PROTONIX) PO SCH (09:09)
[2022-02-19] MEDS: ASPIRIN 81MG ENTERIC TABLET PO SCH (09:09)
[2022-02-19] MEDS: FERROUS SULFATE 325MG TAB PO SCH ×2 (09:09→21:04)
[2022-02-19] MEDS: HEPARIN SOD (PORCINE) 5000UNITS/ML 1ML VIAL/SYRINGE SC SCH ×2 (09:09→21:04)
[2022-02-19] MEDS: GABAPENTIN 300 MG CAP PO SCH ×3 (09:09→21:05)
[2022-02-19] MEDS: SPIRONOLACTONE 25 MG TAB PO SCH (09:09)
[2022-02-19] MEDS: guaiFENesin 200 MG TAB PO SCH ×3 (09:09→21:04)
[2022-02-19] MEDS: ACETAMINOPHEN TAB 650MG DOSE (2X325MG) PO PRN ×2 (09:10→14:16)
[2022-02-19] MEDS: PARoxetine 20MG TABLET PO SCH (09:10)
[2022-02-19] MEDS: LIDOCAINE 5% (LIDODERM) PATCH TD SCH (09:10)
[2022-02-19] MEDS: FLUTICASONE PROP 0.05% NASAL SPRAY 16 GM (FLONASE) NARES SCH ×2 (09:11→21:07)
[2022-02-19 10:07] LABS: BASO # 0.1 10^3/uL (0.0-0.2); BASO % 0.6 % (0.0-1.0); EOS # 0.3 10^3/uL (0.0-0.5); EOS % 3.1 % (0.0-3.0); HEMATOCRIT 28.2 % (36.0-47.0); HEMOGLOBIN 8.7 g/dl (12.0-15.5); LYMPH # 0.9 10^3/uL (1.5-5.0); MEAN CORPUSCULAR HEMOGLOBIN 32.3 pg (27.0-33.0); MEAN CORPUSCULAR HGB CONC 30.9 g/dl (32.0-36.5); MEAN CORPUSCULAR VOLUME 104.8 fl (80.0-96.0); MONO # 0.6 10^3/uL (0.0-0.8); MONO % 6.8 % (2.0-8.0); NEUTROPHILS # 7.3 10^3/uL (1.5-8.5); NEUTROPHILS % 78.6 % (36.0-66.0); PLATELET COUNT, AUTOMATED 187 10^3/uL (150-450); RED BLOOD COUNT 2.69 10^6/uL (4.00-5.40); WHITE BLOOD COUNT 9.3 10^3/uL (4.0-10.0)
[2022-02-19 10:27] LABS: CALCIUM LEVEL 9.1 MG/DL (8.3-10.6); CREATININE FOR GFR 2.74 MG/DL (0.55-1.30); GLOMERULAR FILTRATION RATE 18.3 (>45); PERCENT SATURATION 16.6 % (13.2-45.0); POTASSIUM SERUM 4.8 MMOL/L (3.5-5.1)
[2022-02-19 10:30] LABS: FERRITIN 839.5 NG/ML (7.3-270.7)
[2022-02-19] MEDS ORDERED: **hydrALAZINE HCL** 25 MG TAB PO ONE (10:50)
[2022-02-19] MEDS ORDERED: cloNIDine 0.1MG TABLET PO ONE (12:00)
[2022-02-19] MEDS ORDERED: metOLazone 5 MG TAB PO ONE (12:00)
[2022-02-19 12:02] VITALS: BP 142/90
[2022-02-19] MEDS ORDERED: traMADol 50 MG TAB PO ONE (12:10)
[2022-02-19] MEDS ORDERED: FIORICET TAB PO ONE (14:00)
[2022-02-19 14:22] VITALS: BP 138/52
[2022-02-19] MEDS: **hydrALAZINE HCL** 25 MG TAB PO SCH (18:45)
[2022-02-19 19:35] VITALS: BP 140/56
[2022-02-19] MEDS: SENNA 8.6 MG TAB (SENOKOT) PO SCH (21:05)
[2022-02-19] MEDS: ATORVASTATIN 20 MG TAB PO SCH (21:05)
[2022-02-19] MEDS: allopurinoL 100 MG TAB PO SCH (21:05)
[2022-02-19 23:53] VITALS: BP 132/44
[2022-02-20] MEDS: **hydrALAZINE HCL** 25 MG TAB PO SCH ×3 (00:10→17:41)
[2022-02-20 06:00] VITALS: BP 122/48
[2022-02-20] MEDS: COMBIVENT RESPIMAT 100-20MCG INHALER 4GM INH SCH ×3 (06:08→20:33)
[2022-02-20 08:43] LABS: BASO % 0.5 % (0.0-1.0); EOS # 0.3 10^3/uL (0.0-0.5); EOS % 3.9 % (0.0-3.0); HEMATOCRIT 28.6 % (36.0-47.0); HEMOGLOBIN 8.7 g/dl (12.0-15.5); LYMPH # 1.3 10^3/uL (1.5-5.0); LYMPH % 15.2 % (24.0-44.0); MEAN CORPUSCULAR HGB CONC 30.4 g/dl (32.0-36.5); MEAN CORPUSCULAR VOLUME 105.1 fl (80.0-96.0); MONO # 0.7 10^3/uL (0.0-0.8); MONO % 7.9 % (2.0-8.0); NEUTROPHILS # 6.1 10^3/uL (1.5-8.5); NEUTROPHILS % 71.6 % (36.0-66.0); PLATELET COUNT, AUTOMATED 176 10^3/uL (150-450); RED BLOOD COUNT 2.72 10^6/uL (4.00-5.40); WHITE BLOOD COUNT 8.5 10^3/uL (4.0-10.0)
[2022-02-20] MEDS: guaiFENesin 200 MG TAB PO SCH ×3 (09:00→20:42)
[2022-02-20] MEDS: REMEDY PHYTOPLEX Z-GUARD PASTE 113GM TUBE (FROM STOREROOM PRODUCT) TOP SCH ×3 (09:00→20:45)
[2022-02-20] MEDS: LIDOCAINE 5% (LIDODERM) PATCH TD SCH (09:00)
[2022-02-20 09:09] LABS: ALBUMIN 2.9 G/DL (3.2-5.2); BILIRUBIN,TOTAL 0.5 MG/DL (0.3-1.2); CALCIUM LEVEL 9.1 MG/DL (8.3-10.6); CREATININE FOR GFR 2.81 MG/DL (0.55-1.30); GLOMERULAR FILTRATION RATE 17.8 (>45); TOTAL PROTEIN 5.7 G/DL (5.7-8.2)
[2022-02-20] MEDS: PANTOPRAZOLE 40MG TAB (PROTONIX) PO SCH (09:46)
[2022-02-20] MEDS: ASPIRIN 81MG ENTERIC TABLET PO SCH (09:47)
[2022-02-20] MEDS: FERROUS SULFATE 325MG TAB PO SCH ×2 (09:47→20:44)
[2022-02-20] MEDS: FIORICET TAB PO PRN (09:47)
[2022-02-20] MEDS: DOCUSATE SODIUM 100MG CAPSULE PO SCH ×2 (09:47→20:46)
[2022-02-20] MEDS: SPIRONOLACTONE 25 MG TAB PO SCH (09:47)
[2022-02-20] MEDS: PARoxetine 20MG TABLET PO SCH (09:47)
[2022-02-20] MEDS: TORSEMIDE 20 MG TAB PO SCH (09:48)
[2022-02-20] MEDS: LEVEMIR (INSULIN DETEMIR) 1 UNITS/0.01ML SC SCH ×2 (09:48→20:42)
[2022-02-20] MEDS: HEPARIN SOD (PORCINE) 5000UNITS/ML 1ML VIAL/SYRINGE SC SCH ×2 (09:49→20:44)
[2022-02-20] MEDS: GABAPENTIN 300 MG CAP PO SCH ×2 (09:50→20:43)
[2022-02-20] MEDS: FLUTICASONE PROP 0.05% NASAL SPRAY 16 GM (FLONASE) NARES SCH ×2 (09:50→20:45)
[2022-02-20] MEDS: INSULIN LISPRO (NovoLOG) PER UNIT SC SCH ×4 (09:50→20:46)
[2022-02-20] MEDS: SODIUM CHLORIDE NASAL 0.65% SPRAY BTL (OCEAN) SCH ×3 (09:51→20:45)
[2022-02-20 10:00] VITALS: BP 180/58
[2022-02-20] MEDS ORDERED: diphenhydrAMINE 25MG CAP PO ONE (10:00)
[2022-02-20] MEDS: traMADol 50 MG TAB PO PRN (11:20)
[2022-02-20] MEDS: AUGMENTIN 500MG TAB PO SCH ×2 (12:57→20:46)
[2022-02-20] MEDS: AZELASTINE 137MCG NASAL SPY 30 ML (ASTELIN) SCH ×2 (12:57→20:45)
[2022-02-20 14:00] VITALS: BP 160/42
[2022-02-20 19:58] VITALS: BP 156/62
[2022-02-20] MEDS: SENNA 8.6 MG TAB (SENOKOT) PO SCH (20:42)
[2022-02-20] MEDS: ATORVASTATIN 20 MG TAB PO SCH (20:44)
[2022-02-20] MEDS: allopurinoL 100 MG TAB PO SCH (20:44)
[2022-02-21] MEDS: **hydrALAZINE HCL** 25 MG TAB PO SCH ×5 (00:40→23:41)
[2022-02-21 06:00] VITALS: BP 138/60
[2022-02-21 06:36] LABS: BASO # 0.1 10^3/uL (0.0-0.2); BASO % 0.6 % (0.0-1.0); EOS # 0.4 10^3/uL (0.0-0.5); EOS % 4.3 % (0.0-3.0); HEMATOCRIT 27.9 % (36.0-47.0); HEMOGLOBIN 8.6 g/dl (12.0-15.5); LYMPH # 1.5 10^3/uL (1.5-5.0); LYMPH % 16.4 % (24.0-44.0); MEAN CORPUSCULAR HEMOGLOBIN 32.1 pg (27.0-33.0); MEAN CORPUSCULAR HGB CONC 30.8 g/dl (32.0-36.5); MEAN CORPUSCULAR VOLUME 104.1 fl (80.0-96.0); MONO # 0.6 10^3/uL (0.0-0.8); MONO % 6.6 % (2.0-8.0); NEUTROPHILS # 6.4 10^3/uL (1.5-8.5); NEUTROPHILS % 71.5 % (36.0-66.0); PLATELET COUNT, AUTOMATED 180 10^3/uL (150-450); RED BLOOD COUNT 2.68 10^6/uL (4.00-5.40); WHITE BLOOD COUNT 8.9 10^3/uL (4.0-10.0)
[2022-02-21 07:02] LABS: CREATININE FOR GFR 2.83 MG/DL (0.55-1.30); GLOMERULAR FILTRATION RATE 17.6 (>45); PHOSPHORUS LEVEL 4.4 MG/DL (2.4-5.1); POTASSIUM SERUM 4.4 MMOL/L (3.5-5.1)
[2022-02-21] MEDS: COMBIVENT RESPIMAT 100-20MCG INHALER 4GM INH SCH ×3 (07:44→19:22)
[2022-02-21] MEDS: HEPARIN SOD (PORCINE) 5000UNITS/ML 1ML VIAL/SYRINGE SC SCH ×2 (08:27→20:16)
[2022-02-21] MEDS: FERROUS SULFATE 325MG TAB PO SCH ×2 (08:27→20:16)
[2022-02-21] MEDS: DOCUSATE SODIUM 100MG CAPSULE PO SCH ×2 (08:27→20:16)
[2022-02-21] MEDS: guaiFENesin 200 MG TAB PO SCH ×3 (08:27→20:16)
[2022-02-21] MEDS: ASPIRIN 81MG ENTERIC TABLET PO SCH (08:28)
[2022-02-21] MEDS: TORSEMIDE 20 MG TAB PO SCH (08:28)
[2022-02-21] MEDS: PANTOPRAZOLE 40MG TAB (PROTONIX) PO SCH (08:28)
[2022-02-21] MEDS: PARoxetine 20MG TABLET PO SCH (08:28)
[2022-02-21] MEDS: GABAPENTIN 300 MG CAP PO SCH ×2 (08:28→20:15)
[2022-02-21] MEDS: AUGMENTIN 500MG TAB PO SCH ×2 (08:28→20:15)
[2022-02-21] MEDS: SPIRONOLACTONE 25 MG TAB PO SCH (08:28)
[2022-02-21] MEDS: LEVEMIR (INSULIN DETEMIR) 1 UNITS/0.01ML SC SCH ×2 (08:29→20:17)
[2022-02-21] MEDS: INSULIN LISPRO (NovoLOG) PER UNIT SC SCH ×4 (08:29→20:17)
[2022-02-21] MEDS: REMEDY PHYTOPLEX Z-GUARD PASTE 113GM TUBE (FROM STOREROOM PRODUCT) TOP SCH ×3 (08:31→20:17)
[2022-02-21] MEDS: FLUTICASONE PROP 0.05% NASAL SPRAY 16 GM (FLONASE) NARES SCH ×2 (08:31→20:18)
[2022-02-21] MEDS: SODIUM CHLORIDE NASAL 0.65% SPRAY BTL (OCEAN) SCH ×3 (08:31→20:17)
[2022-02-21] MEDS: AZELASTINE 137MCG NASAL SPY 30 ML (ASTELIN) SCH ×2 (08:31→20:18)
[2022-02-21 14:00] VITALS: BP 147/65
[2022-02-21] MEDS ORDERED: MAALOX 30 ML SUSP *UDC PO ONE (14:50)
[2022-02-21 15:31] VITALS: BP 130/50
[2022-02-21 15:37] LABS: CK-MB VALUE MASS < 1.0 NG/ML (<3.6)
[2022-02-21 15:38] LABS: CPK CREATINE PHOSPHOKINASE 44 U/L (34-145); MB/CK RELATIVE INDEX 2.27 (< OR =4)
[2022-02-21] MEDS: DICLOFENAC EPOLAMINE 1.3% PATCH TOP SCH ×2 (15:40→20:18)
[2022-02-21 19:35] VITALS: BP 148/56
[2022-02-21] MEDS: ATORVASTATIN 20 MG TAB PO SCH (20:15)
[2022-02-21] MEDS: SENNA 8.6 MG TAB (SENOKOT) PO SCH (20:15)
[2022-02-21] MEDS: allopurinoL 100 MG TAB PO SCH (20:16)
[2022-02-21] MEDS: traMADol 50 MG TAB PO PRN (20:26)
[2022-02-22 04:53] VITALS: BP 144/58
[2022-02-22] MEDS: **hydrALAZINE HCL** 25 MG TAB PO SCH ×4 (05:01→23:49)
[2022-02-22] MEDS: COMBIVENT RESPIMAT 100-20MCG INHALER 4GM INH SCH ×3 (06:10→17:55)
[2022-02-22] MEDS: DICLOFENAC EPOLAMINE 1.3% PATCH TOP SCH ×2 (08:16→21:00)
[2022-02-22] MEDS: INSULIN LISPRO (NovoLOG) PER UNIT SC SCH ×4 (08:16→21:00)
[2022-02-22] MEDS: SPIRONOLACTONE 25 MG TAB PO SCH (08:16)
[2022-02-22] MEDS: AUGMENTIN 500MG TAB PO SCH ×2 (08:17→21:01)
[2022-02-22] MEDS: DOCUSATE SODIUM 100MG CAPSULE PO SCH ×2 (08:17→20:59)
[2022-02-22] MEDS: TORSEMIDE 100 MG TAB PO SCH (08:18)
[2022-02-22] MEDS: PARoxetine 20MG TABLET PO SCH (08:18)
[2022-02-22] MEDS: FERROUS SULFATE 325MG TAB PO SCH ×2 (08:18→21:01)
[2022-02-22] MEDS: GABAPENTIN 300 MG CAP PO SCH ×2 (08:18→21:01)
[2022-02-22] MEDS: ASPIRIN 81MG ENTERIC TABLET PO SCH (08:18)
[2022-02-22] MEDS: PANTOPRAZOLE 40MG TAB (PROTONIX) PO SCH (08:18)
[2022-02-22] MEDS: LEVEMIR (INSULIN DETEMIR) 1 UNITS/0.01ML SC SCH ×2 (08:19→21:03)
[2022-02-22] MEDS: HEPARIN SOD (PORCINE) 5000UNITS/ML 1ML VIAL/SYRINGE SC SCH ×2 (08:19→21:02)
[2022-02-22] MEDS: guaiFENesin 200 MG TAB PO SCH ×3 (08:19→21:01)
[2022-02-22] MEDS: AZELASTINE 137MCG NASAL SPY 30 ML (ASTELIN) SCH ×2 (08:20→21:03)
[2022-02-22] MEDS: FLUTICASONE PROP 0.05% NASAL SPRAY 16 GM (FLONASE) NARES SCH ×2 (08:20→21:03)
[2022-02-22] MEDS: SODIUM CHLORIDE NASAL 0.65% SPRAY BTL (OCEAN) SCH ×3 (08:20→21:00)
[2022-02-22] MEDS: REMEDY PHYTOPLEX Z-GUARD PASTE 113GM TUBE (FROM STOREROOM PRODUCT) TOP SCH ×3 (08:21→21:04)
[2022-02-22 14:00] VITALS: BP 134/51
[2022-02-22] MEDS: traMADol 50 MG TAB PO PRN (15:43)
[2022-02-22 19:50] VITALS: BP 158/82
[2022-02-22] MEDS: SENNA 8.6 MG TAB (SENOKOT) PO SCH (21:00)
[2022-02-22] MEDS: ATORVASTATIN 20 MG TAB PO SCH (21:01)
[2022-02-22] MEDS: allopurinoL 100 MG TAB PO SCH (21:01)
[2022-02-22 23:35] VITALS: BP 146/78
[2022-02-23] MEDS: **hydrALAZINE HCL** 25 MG TAB PO SCH ×3 (05:19→17:47)
[2022-02-23 05:29] VITALS: BP 118/64
[2022-02-23] MEDS: INSULIN LISPRO (NovoLOG) PER UNIT SC SCH ×4 (07:38→20:14)
[2022-02-23] MEDS: COMBIVENT RESPIMAT 100-20MCG INHALER 4GM INH SCH ×2 (08:27→19:43)
[2022-02-23] MEDS: SODIUM CHLORIDE NASAL 0.65% SPRAY BTL (OCEAN) SCH ×3 (09:00→20:20)
[2022-02-23] MEDS: REMEDY PHYTOPLEX Z-GUARD PASTE 113GM TUBE (FROM STOREROOM PRODUCT) TOP SCH ×3 (09:00→20:20)
[2022-02-23] MEDS: traMADol 50 MG TAB PO PRN (09:07)
[2022-02-23] MEDS: LEVEMIR (INSULIN DETEMIR) 1 UNITS/0.01ML SC SCH ×2 (09:09→20:14)
[2022-02-23] MEDS: PANTOPRAZOLE 40MG TAB (PROTONIX) PO SCH (09:10)
[2022-02-23] MEDS: ASPIRIN 81MG ENTERIC TABLET PO SCH (09:10)
[2022-02-23] MEDS: HEPARIN SOD (PORCINE) 5000UNITS/ML 1ML VIAL/SYRINGE SC SCH ×2 (09:10→20:13)
[2022-02-23] MEDS: TORSEMIDE 100 MG TAB PO SCH (09:10)
[2022-02-23] MEDS: guaiFENesin 200 MG TAB PO SCH ×3 (09:10→20:13)
[2022-02-23] MEDS: AZELASTINE 137MCG NASAL SPY 30 ML (ASTELIN) SCH ×2 (09:11→20:18)
[2022-02-23] MEDS: GABAPENTIN 300 MG CAP PO SCH ×2 (09:11→20:13)
[2022-02-23] MEDS: PARoxetine 20MG TABLET PO SCH (09:11)
[2022-02-23] MEDS: FLUTICASONE PROP 0.05% NASAL SPRAY 16 GM (FLONASE) NARES SCH ×2 (09:11→20:17)
[2022-02-23] MEDS: FERROUS SULFATE 325MG TAB PO SCH ×2 (09:11→20:13)
[2022-02-23] MEDS: AUGMENTIN 500MG TAB PO SCH ×2 (09:12→20:13)
[2022-02-23] MEDS: DOCUSATE SODIUM 100MG CAPSULE PO SCH ×2 (09:12→20:14)
[2022-02-23] MEDS: SPIRONOLACTONE 25 MG TAB PO SCH (09:13)
[2022-02-23] MEDS: DICLOFENAC EPOLAMINE 1.3% PATCH TOP SCH ×2 (09:15→20:18)
[2022-02-23 11:57] VITALS: BP 131/55
[2022-02-23 14:00] VITALS: BP 145/51
[2022-02-23 19:35] VITALS: BP 128/68
[2022-02-23] MEDS: ATORVASTATIN 20 MG TAB PO SCH (20:13)
[2022-02-23] MEDS: allopurinoL 100 MG TAB PO SCH (20:13)
[2022-02-23] MEDS: SENNA 8.6 MG TAB (SENOKOT) PO SCH (20:13)
[2022-02-24] MEDS: traMADol 50 MG TAB PO PRN ×3 (03:38→22:46)
[2022-02-24 05:42] LABS: BASO % 0.5 % (0.0-1.0); EOS # 0.4 10^3/uL (0.0-0.5); EOS % 5.1 % (0.0-3.0); HEMATOCRIT 26.9 % (36.0-47.0); HEMOGLOBIN 8.3 g/dl (12.0-15.5); LYMPH # 1.3 10^3/uL (1.5-5.0); LYMPH % 17.8 % (24.0-44.0); MEAN CORPUSCULAR HEMOGLOBIN 31.8 pg (27.0-33.0); MEAN CORPUSCULAR HGB CONC 30.9 g/dl (32.0-36.5); MEAN CORPUSCULAR VOLUME 103.1 fl (80.0-96.0); MONO # 0.6 10^3/uL (0.0-0.8); MONO % 7.9 % (2.0-8.0); NEUTROPHILS % 68.3 % (36.0-66.0); PLATELET COUNT, AUTOMATED 151 10^3/uL (150-450); RED BLOOD COUNT 2.61 10^6/uL (4.00-5.40); WHITE BLOOD COUNT 7.4 10^3/uL (4.0-10.0)
[2022-02-24 06:00] VITALS: BP 118/76
[2022-02-24] MEDS: **hydrALAZINE HCL** 25 MG TAB PO SCH ×5 (06:00→23:56)
[2022-02-24 06:07] LABS: CALCIUM LEVEL 9.3 MG/DL (8.3-10.6); CREATININE FOR GFR 3.19 MG/DL (0.55-1.30); GLOMERULAR FILTRATION RATE 15.3 (>45); POTASSIUM SERUM 4.2 MMOL/L (3.5-5.1)
[2022-02-24] MEDS: COMBIVENT RESPIMAT 100-20MCG INHALER 4GM INH SCH ×4 (07:28→20:18)
[2022-02-24] MEDS: FERROUS SULFATE 325MG TAB PO SCH ×2 (08:12→21:29)
[2022-02-24] MEDS: PANTOPRAZOLE 40MG TAB (PROTONIX) PO SCH (08:12)
[2022-02-24] MEDS: DOCUSATE SODIUM 100MG CAPSULE PO SCH ×2 (08:12→21:30)
[2022-02-24] MEDS: GABAPENTIN 300 MG CAP PO SCH ×2 (08:13→21:29)
[2022-02-24] MEDS: HEPARIN SOD (PORCINE) 5000UNITS/ML 1ML VIAL/SYRINGE SC SCH ×2 (08:13→21:27)
[2022-02-24] MEDS: ASPIRIN 81MG ENTERIC TABLET PO SCH (08:13)
[2022-02-24] MEDS: TORSEMIDE 100 MG TAB PO SCH (08:13)
[2022-02-24] MEDS: SPIRONOLACTONE 25 MG TAB PO SCH (08:13)
[2022-02-24] MEDS: guaiFENesin 200 MG TAB PO SCH ×3 (08:13→21:30)
[2022-02-24] MEDS: PARoxetine 20MG TABLET PO SCH (08:13)
[2022-02-24] MEDS: AUGMENTIN 500MG TAB PO SCH ×2 (08:13→21:30)
[2022-02-24] MEDS: INSULIN LISPRO (NovoLOG) PER UNIT SC SCH ×4 (08:14→21:29)
[2022-02-24] MEDS: LEVEMIR (INSULIN DETEMIR) 1 UNITS/0.01ML SC SCH ×2 (08:14→21:28)
[2022-02-24] MEDS: AZELASTINE 137MCG NASAL SPY 30 ML (ASTELIN) SCH ×2 (08:14→21:25)
[2022-02-24] MEDS: FLUTICASONE PROP 0.05% NASAL SPRAY 16 GM (FLONASE) NARES SCH ×2 (08:14→21:25)
[2022-02-24] MEDS: REMEDY PHYTOPLEX Z-GUARD PASTE 113GM TUBE (FROM STOREROOM PRODUCT) TOP SCH ×3 (08:15→21:00)
[2022-02-24] MEDS: DICLOFENAC EPOLAMINE 1.3% PATCH TOP SCH ×2 (08:15→21:00)
[2022-02-24] MEDS: SODIUM CHLORIDE NASAL 0.65% SPRAY BTL (OCEAN) SCH ×3 (08:15→21:00)
[2022-02-24 14:00] VITALS: BP 139/61
[2022-02-24 14:32] VITALS: BP 142/62
[2022-02-24] MEDS: FIORICET TAB PO PRN (16:29)
[2022-02-24 20:00] VITALS: BP 148/52
[2022-02-24] MEDS: allopurinoL 100 MG TAB PO SCH (21:29)
[2022-02-24] MEDS: ATORVASTATIN 20 MG TAB PO SCH (21:29)
[2022-02-24] MEDS: SENNA 8.6 MG TAB (SENOKOT) PO SCH (21:33)
[2022-02-24 23:55] VITALS: BP 130/46
[2022-02-25 05:31] VITALS: BP 140/56
[2022-02-25 05:43] VITALS: BP 140/56
[2022-02-25] MEDS: **hydrALAZINE HCL** 25 MG TAB PO SCH (05:43)
[2022-02-25] MEDS: COMBIVENT RESPIMAT 100-20MCG INHALER 4GM INH SCH (07:10)
[2022-02-25] MEDS: FERROUS SULFATE 325MG TAB PO SCH (08:36)
[2022-02-25] MEDS: PANTOPRAZOLE 40MG TAB (PROTONIX) PO SCH (08:36)
[2022-02-25] MEDS: guaiFENesin 200 MG TAB PO SCH (08:36)
[2022-02-25] MEDS: GABAPENTIN 300 MG CAP PO SCH (08:36)
[2022-02-25] MEDS: ASPIRIN 81MG ENTERIC TABLET PO SCH (08:37)
[2022-02-25] MEDS: TORSEMIDE 100 MG TAB PO SCH (08:37)
[2022-02-25] MEDS: PARoxetine 20MG TABLET PO SCH (08:37)
[2022-02-25] MEDS: SPIRONOLACTONE 25 MG TAB PO SCH (08:37)
[2022-02-25] MEDS: HEPARIN SOD (PORCINE) 5000UNITS/ML 1ML VIAL/SYRINGE SC SCH (08:37)
[2022-02-25] MEDS: LEVEMIR (INSULIN DETEMIR) 1 UNITS/0.01ML SC SCH (08:38)
[2022-02-25] MEDS: DOCUSATE SODIUM 100MG CAPSULE PO SCH (08:38)
[2022-02-25] MEDS: INSULIN LISPRO (NovoLOG) PER UNIT SC SCH (08:38)
[2022-02-25] MEDS: REMEDY PHYTOPLEX Z-GUARD PASTE 113GM TUBE (FROM STOREROOM PRODUCT) TOP SCH (08:39)
[2022-02-25] MEDS: DICLOFENAC EPOLAMINE 1.3% PATCH TOP SCH (08:39)
[2022-02-25] MEDS: FLUTICASONE PROP 0.05% NASAL SPRAY 16 GM (FLONASE) NARES SCH (08:39)
[2022-02-25] MEDS: AZELASTINE 137MCG NASAL SPY 30 ML (ASTELIN) SCH (08:39)
[2022-02-25] MEDS: SODIUM CHLORIDE NASAL 0.65% SPRAY BTL (OCEAN) SCH (08:40)
[2022-02-25] MEDS ORDERED: INSULANT SC (10:46)
[2022-02-25] MEDS ORDERED: ATOR40TA75 PO (10:46)
[2022-02-25] MEDS ORDERED: SPIR-10 PO (10:46)
[2022-02-25] MEDS ORDERED: HYDR25TA PO (10:46)
[2022-02-25] MEDS ORDERED: GABA-282 PO (10:46)
[2022-02-25] MEDS ORDERED: TORS100T PO (10:46)
[2022-02-25] MEDS ORDERED: ALLO100T PO (10:46)
[2022-02-25] MEDS ORDERED: PARO40TA2 PO (10:46)
[2022-02-25] MEDS ORDERED: ASPI81TA26 PO (10:46)
== END 2022-02-25 11:45 | disposition home or self-care (01) | DRG 71 ==
LOC: EEVIPCON 12:05 → M PM&R 12:05
PROVIDERS: ADMIT Physical Medicine & Rehabilitation; ATTEND Physical Medicine & Rehabilitation
DX: G93.41 Metabolic encephalopathy (principal); I50.32 Chronic diastolic (congestive) heart failure; N18.4 Chronic kidney disease, stage 4 (severe); I13.0 Hypertensive heart and chronic kidney disease with heart failure and stage 1 through stage 4 chronic kidney disease, or unspecified chronic kidney disease; J96.11 Chronic respiratory failure with hypoxia; I25.10 Atherosclerotic heart disease of native coronary artery without angina pectoris; E11.22 Type 2 diabetes mellitus with diabetic chronic kidney disease; E66.01 Morbid (severe) obesity due to excess calories; E11.319 Type 2 diabetes mellitus with unspecified diabetic retinopathy without macular edema; E11.51 Type 2 diabetes mellitus with diabetic peripheral angiopathy without gangrene; E11.40 Type 2 diabetes mellitus with diabetic neuropathy, unspecified; D63.8 Anemia in other chronic diseases classified elsewhere; M79.7 Fibromyalgia; R00.1 Bradycardia, unspecified; G89.29 Other chronic pain; Z74.09 Other reduced mobility; Z74.1 Need for assistance with personal care; I73.9 Peripheral vascular disease, unspecified; E78.5 Hyperlipidemia, unspecified; M10.9 Gout, unspecified; Z89.512 Acquired absence of left leg below knee; F32.A Depression, unspecified; G47.33 Obstructive sleep apnea (adult) (pediatric); Z90.49 Acquired absence of other specified parts of digestive tract; Z90.79 Acquired absence of other genital organ(s); Z89.421 Acquired absence of other right toe(s); Z87.891 Personal history of nicotine dependence; Z79.82 Long term (current) use of aspirin; Z79.4 Long term (current) use of insulin; Z79.899 Other long term (current) drug therapy; Z88.2 Allergy status to sulfonamides; Z88.4 Allergy status to anesthetic agent; Z88.8 Allergy status to other drugs, medicaments and biological substances; Z91.048 Other nonmedicinal substance allergy status; Z99.81 Dependence on supplemental oxygen; R07.89 Other chest pain

== ENCOUNTER → 2022-03-23 | Outpatient (CLI) | payer OTHER ==
[~2022-03-23] MED LIST changes: +HYDR25TA PO
== END ==
LOC: M LABSMTC 11:20
PROVIDERS: ATTEND Anesthesiology
DX: Z01.812 Encounter for preprocedural laboratory examination (principal); Z11.52 Encounter for screening for COVID-19

== ENCOUNTER 2022-03-28 09:10 | Inpatient (IN) | payer OTHER ==
[~2022-03-28] VITALS: Ht 177.8 cm; Wt 119.8 kg
[~2022-03-28 09:10] MED LIST changes: +ceFAZolin SOD 2 GM in IV 1 EA IV ONE
[2022-03-28] MEDS ORDERED: LR 1,000 ML IV SCH ×2 (09:35→17:00)
[2022-03-28 10:07] LABS: HEMATOCRIT 32.7 % (36.0-47.0); HEMOGLOBIN 10.5 g/dl (12.0-15.5); MEAN CORPUSCULAR HEMOGLOBIN 31.8 pg (27.0-33.0); MEAN CORPUSCULAR HGB CONC 32.1 g/dl (32.0-36.5); MEAN CORPUSCULAR VOLUME 99.1 fl (80.0-96.0); PLATELET COUNT, AUTOMATED 168 10^3/uL (150-450)
[2022-03-28 10:18] LABS: INR 1.03; PROTHROMBIN TIME 13.7 SECONDS (12.5-14.5)
[2022-03-28 10:19] LABS: PARTIAL THROMBOPLASTIN TIME 26.8 SECONDS (24.8-34.2)
[2022-03-28 10:36] LABS: CREATININE FOR GFR 2.08 MG/DL (0.55-1.30); GLOMERULAR FILTRATION RATE 25.1 (>45); POTASSIUM SERUM 3.5 MMOL/L (3.5-5.1)
[2022-03-28] MEDS ORDERED: fentaNYL 100 MCG/2 ML INJECTION As Ordered ONE ×2 (12:07→15:37)
[2022-03-28] MEDS ORDERED: LIDOCAINE 2% 100MG/5ML SDV (FOR ANES.) As Ordered ONE (12:08)
[2022-03-28] MEDS ORDERED: ONDANSETRON 4MG 2ML VIAL As Ordered ONE (12:08)
[2022-03-28] MEDS ORDERED: propofoL 200 MG/20 ML VIAL As Ordered ONE (12:08)
[2022-03-28] MEDS ORDERED: HEPARIN SOD (PORCINE) 5000UNITS/ML 1ML VIAL/SYRINGE As Ordered ONE ×3 (12:15→14:33)
[2022-03-28] MEDS ORDERED: BUPIVACAINE/EPIN 0.5% 30ML VIAL As Ordered ONE ×2 (12:16→14:27)
[2022-03-28] MEDS ORDERED: LIDOCAINE 1% MDV 20ML VIAL As Ordered ONE (12:16)
[2022-03-28] MEDS ORDERED: PAPAVERINE HCL 60MG 2ML VIAL (30MG/ML) As Ordered ONE (13:44)
[2022-03-28] MEDS ORDERED: hydrALAZINE 20MG/ML 1ML VIAL As Ordered ONE (13:54)
[2022-03-28] MEDS ORDERED: GLYCOPYRROLATE INJ 0.2 MG/ML 2 ML VIAL As Ordered ONE (14:20)
[2022-03-28] MEDS ORDERED: THROMBIN 5,000 UNITS VIAL As Ordered ONE (14:49)
[2022-03-28] MEDS ORDERED: THROMBIN 20,000 UNITS KIT As Ordered ONE (14:50)
[2022-03-28] MEDS ORDERED: SUGAMMADEX SODIUM 500 MG/5 ML VIAL (BRIDION) As Ordered ONE (15:15)
[2022-03-28] MEDS ORDERED: ROCURONIUM BROMIDE 50MG/5ML VIAL As Ordered ONE (15:36)
[2022-03-28] MEDS ORDERED: ONDANSETRON 4MG 2ML VIAL IV PRN (17:00)
[2022-03-28] MEDS ORDERED: INSULIN LISPRO (NovoLOG) PER UNIT SC PRN (17:20)
[2022-03-28] MEDS ORDERED: MORPHINE 2 MG/ML 1ML VIAL IV PRN (17:35)
[2022-03-28] MEDS: fentaNYL 100 MCG/2 ML INJECTION IV PRN ×4 (17:43→18:16)
[2022-03-28] MEDS: oxyCODONE 5MG TAB PO PRN ×2 (17:51→18:28)
[2022-03-28] MEDS ORDERED: DEXTROSE 50% 50ML SYRINGE IV PRN (18:00)
[2022-03-28] MEDS ORDERED: GLUCAGON INJ 1MG VIAL SC PRN (18:00)
[2022-03-28] MEDS ORDERED: GLUCOSE 4GM CHEW TABLET PO PRN (18:00)
[2022-03-28] MEDS ORDERED: HYDROMORPHONE HCL 0.5 MG/ 0.5 ML SYRINGE IV ONE (18:15)
[2022-03-28] MEDS ORDERED: INSULIN LISPRO (NovoLOG) PER UNIT SC ONE (18:30)
[2022-03-28 18:44] VITALS: BP 142/63
[2022-03-28 20:10] VITALS: BP 116/57
[2022-03-28] MEDS: INSULIN LISPRO (NovoLOG) PER UNIT SC SCH (21:00)
[2022-03-28] MEDS: FERROUS SULFATE 325MG TAB PO SCH (21:11)
[2022-03-28] MEDS: GABAPENTIN 300 MG CAP PO SCH (21:12)
[2022-03-28] MEDS: **hydrALAZINE HCL** 25 MG TAB PO SCH (21:12)
[2022-03-28] MEDS: allopurinoL 100 MG TAB PO SCH (21:12)
[2022-03-28] MEDS: ATORVASTATIN 20 MG TAB PO SCH (21:12)
[2022-03-28] MEDS: LIDOCAINE 5% (LIDODERM) PATCH TD SCH (21:13)
[2022-03-28] MEDS: LEVEMIR (INSULIN DETEMIR) 1 UNITS/0.01ML SC SCH (21:13)
[2022-03-29 00:13] VITALS: BP 107/53
[2022-03-29] MEDS: oxyCODONE 5MG TAB PO PRN ×2 (00:26→11:04)
[2022-03-29 04:45] VITALS: BP 116/55
[2022-03-29 05:36] LABS: BASO % 0.2 % (0.0-1.0); HEMATOCRIT 30.2 % (36.0-47.0); HEMOGLOBIN 9.5 g/dl (12.0-15.5); LYMPH # 0.9 10^3/uL (1.5-5.0); MEAN CORPUSCULAR HGB CONC 31.5 g/dl (32.0-36.5); MEAN CORPUSCULAR VOLUME 101.7 fl (80.0-96.0); MONO # 0.8 10^3/uL (0.0-0.8); MONO % 5.2 % (2.0-8.0); NEUTROPHILS # 12.9 10^3/uL (1.5-8.5); NEUTROPHILS % 88.2 % (36.0-66.0); PLATELET COUNT, AUTOMATED 171 10^3/uL (150-450); RED BLOOD COUNT 2.97 10^6/uL (4.00-5.40); WHITE BLOOD COUNT 14.7 10^3/uL (4.0-10.0)
[2022-03-29 05:59] LABS: CALCIUM LEVEL 8.8 MG/DL (8.3-10.6); CREATININE FOR GFR 2.16 MG/DL (0.55-1.30); GLOMERULAR FILTRATION RATE 24.1 (>45); POTASSIUM SERUM 3.9 MMOL/L (3.5-5.1)
[2022-03-29] MEDS: INSULIN LISPRO (NovoLOG) PER UNIT SC SCH ×4 (07:30→21:00)
[2022-03-29 07:52] VITALS: BP 136/63
[2022-03-29] MEDS ORDERED: MORPHINE 2 MG/ML 1ML VIAL IV ONE (08:00)
[2022-03-29] MEDS: GABAPENTIN 300 MG CAP PO SCH ×2 (08:07→21:28)
[2022-03-29] MEDS: FERROUS SULFATE 325MG TAB PO SCH ×2 (08:07→21:28)
[2022-03-29] MEDS: ASPIRIN 81MG ENTERIC TABLET PO SCH (08:07)
[2022-03-29] MEDS: SPIRONOLACTONE 25 MG TAB PO SCH (08:08)
[2022-03-29] MEDS: PARoxetine 20MG TABLET PO SCH (08:08)
[2022-03-29] MEDS: TORSEMIDE 100 MG TAB PO SCH (08:08)
[2022-03-29] MEDS: LEVEMIR (INSULIN DETEMIR) 1 UNITS/0.01ML SC SCH ×2 (08:09→21:30)
[2022-03-29] MEDS: **hydrALAZINE HCL** 25 MG TAB PO SCH ×3 (08:09→21:00)
[2022-03-29 12:03] VITALS: BP 113/59
[2022-03-29] MEDS ORDERED: MORPHINE 30 MG TAB **MSIR PO ONE (13:15)
[2022-03-29] MEDS ORDERED: ACETAMINOPHEN 500 MG TAB PO ONE (13:15)
[2022-03-29 16:27] VITALS: BP 115/55
[2022-03-29] MEDS ORDERED: oxyCODONE 5MG TAB PO ONE (17:00)
[2022-03-29] MEDS: HYDROMORPHONE HCL 0.5 MG/ 0.5 ML SYRINGE IV PRN (17:55)
[2022-03-29] MEDS: AMPICILLIN SOD/SULBACTAM SOD 1.5 GM in D5W MINI-BAG PLUS 50 ML IV SCH (19:15)
[2022-03-29 20:47] VITALS: BP 122/58
[2022-03-29] MEDS: LIDOCAINE 5% (LIDODERM) PATCH TD SCH (21:00)
[2022-03-29] MEDS: ATORVASTATIN 20 MG TAB PO SCH (21:28)
[2022-03-29] MEDS: allopurinoL 100 MG TAB PO SCH (21:28)
[2022-03-29] MEDS: HYDROmorphone 2 MG TAB PO PRN (21:29)
[2022-03-30] VITALS (12 sets, daily range): BP systolic 101–129; BP diastolic 50–80
[2022-03-30] MEDS: AMPICILLIN SOD/SULBACTAM SOD 1.5 GM in D5W MINI-BAG PLUS 50 ML IV SCH ×5 (00:16→23:32)
[2022-03-30] MEDS: HYDROMORPHONE HCL 0.5 MG/ 0.5 ML SYRINGE IV PRN (04:34)
[2022-03-30 05:16] LABS: BASO # 0.1 10^3/uL (0.0-0.2); BASO % 0.5 % (0.0-1.0); EOS # 0.4 10^3/uL (0.0-0.5); EOS % 3.3 % (0.0-3.0); HEMATOCRIT 29.7 % (36.0-47.0); LYMPH # 1.8 10^3/uL (1.5-5.0); LYMPH % 16.2 % (24.0-44.0); MEAN CORPUSCULAR HEMOGLOBIN 31.6 pg (27.0-33.0); MEAN CORPUSCULAR HGB CONC 30.3 g/dl (32.0-36.5); MEAN CORPUSCULAR VOLUME 104.2 fl (80.0-96.0); MONO % 9.2 % (2.0-8.0); NEUTROPHILS # 7.8 10^3/uL (1.5-8.5); NEUTROPHILS % 70.3 % (36.0-66.0); PLATELET COUNT, AUTOMATED 151 10^3/uL (150-450); RED BLOOD COUNT 2.85 10^6/uL (4.00-5.40); WHITE BLOOD COUNT 11.1 10^3/uL (4.0-10.0)
[2022-03-30 05:40] LABS: CREATININE FOR GFR 2.52 MG/DL (0.55-1.30); GLOMERULAR FILTRATION RATE 20.1 (>45); POTASSIUM SERUM 3.7 MMOL/L (3.5-5.1)
[2022-03-30] MEDS: INSULIN LISPRO (NovoLOG) PER UNIT SC SCH ×4 (07:30→20:30)
[2022-03-30] MEDS: SPIRONOLACTONE 25 MG TAB PO SCH (09:00)
[2022-03-30] MEDS: PARoxetine 20MG TABLET PO SCH (09:00)
[2022-03-30] MEDS: TORSEMIDE 100 MG TAB PO SCH (09:00)
[2022-03-30] MEDS: FERROUS SULFATE 325MG TAB PO SCH ×2 (09:00→20:28)
[2022-03-30] MEDS: LEVEMIR (INSULIN DETEMIR) 1 UNITS/0.01ML SC SCH ×2 (09:00→20:29)
[2022-03-30] MEDS: GABAPENTIN 300 MG CAP PO SCH ×2 (09:00→20:28)
[2022-03-30] MEDS: ASPIRIN 81MG ENTERIC TABLET PO SCH (09:00)
[2022-03-30] MEDS: **hydrALAZINE HCL** 25 MG TAB PO SCH ×3 (09:00→20:29)
[2022-03-30] MEDS ORDERED: propofoL 200 MG/20 ML VIAL As Ordered ONE (09:29)
[2022-03-30] MEDS ORDERED: LIDOCAINE 2% 100MG/5ML SDV (FOR ANES.) As Ordered ONE (09:29)
[2022-03-30] MEDS ORDERED: fentaNYL 100 MCG/2 ML INJECTION As Ordered ONE (09:31)
[2022-03-30] MEDS ORDERED: MIDAZOLAM INJ 2MG/2ML VIAL As Ordered ONE (09:31)
[2022-03-30] MEDS ORDERED: ONDANSETRON 4MG 2ML VIAL As Ordered ONE (09:31)
[2022-03-30] MEDS ORDERED: LIDOCAINE 1% SDV 30ML VIAL As Ordered ONE (09:44)
[2022-03-30] MEDS ORDERED: THROMBIN 5,000 UNITS VIAL As Ordered ONE (09:44)
[2022-03-30] MEDS ORDERED: HEPARIN SOD (PORCINE) 5000UNITS/ML 1ML VIAL/SYRINGE As Ordered ONE ×2 (09:44→11:40)
[2022-03-30] MEDS ORDERED: ONDANSETRON 4MG 2ML VIAL IV PRN ×2 (10:35→13:30)
[2022-03-30] MEDS ORDERED: fentaNYL 100 MCG/2 ML INJECTION IV PRN ×2 (10:35→13:30)
[2022-03-30] MEDS ORDERED: oxyCODONE 5MG TAB PO PRN ×2 (10:35→13:30)
[2022-03-30] MEDS ORDERED: HYDROMORPHONE HCL 0.5 MG/ 0.5 ML SYRINGE IV PRN ×2 (10:35→13:30)
[2022-03-30] MEDS ORDERED: INSULIN LISPRO (NovoLOG) PER UNIT SC PRN ×2 (10:35→13:30)
[2022-03-30] MEDS ORDERED: ROCURONIUM BROMIDE 50MG/5ML VIAL As Ordered ONE (10:54)
[2022-03-30] MEDS ORDERED: THROMBIN 20,000 UNITS KIT As Ordered ONE (11:30)
[2022-03-30] MEDS ORDERED: VASOPRESSIN INJ 20UNITS/ML 1ML VIAL As Ordered ONE (11:31)
[2022-03-30] MEDS ORDERED: PAPAVERINE HCL 60MG 2ML VIAL (30MG/ML) As Ordered ONE (11:33)
[2022-03-30] MEDS ORDERED: UNASYN 3GM VIAL ONE (11:52)
[2022-03-30] MEDS ORDERED: UNASYN 3GM VIAL As Ordered ONE (11:52)
[2022-03-30] MEDS ORDERED: ACETAMINOPHEN 1000MG 100ML IV BAG As Ordered ONE (12:11)
[2022-03-30] MEDS ORDERED: PHENYLEPHRINE 10MG/ML 1ML VIAL As Ordered ONE (12:52)
[2022-03-30] MEDS ORDERED: SUGAMMADEX SODIUM 500 MG/5 ML VIAL (BRIDION) As Ordered ONE (13:11)
[2022-03-30] MEDS: allopurinoL 100 MG TAB PO SCH (20:28)
[2022-03-30] MEDS: ATORVASTATIN 20 MG TAB PO SCH (20:28)
[2022-03-30] MEDS: LIDOCAINE 5% (LIDODERM) PATCH TD SCH (21:00)
[2022-03-31 04:00] VITALS: BP 121/56
[2022-03-31 05:29] LABS: BASO % 0.2 % (0.0-1.0); EOS % 0.2 % (0.0-3.0); HEMATOCRIT 27.9 % (36.0-47.0); HEMOGLOBIN 8.5 g/dl (12.0-15.5); LYMPH # 0.7 10^3/uL (1.5-5.0); MEAN CORPUSCULAR HEMOGLOBIN 31.7 pg (27.0-33.0); MEAN CORPUSCULAR HGB CONC 30.5 g/dl (32.0-36.5); MEAN CORPUSCULAR VOLUME 104.1 fl (80.0-96.0); MONO # 0.7 10^3/uL (0.0-0.8); NEUTROPHILS # 7.9 10^3/uL (1.5-8.5); NEUTROPHILS % 85.1 % (36.0-66.0); PLATELET COUNT, AUTOMATED 120 10^3/uL (150-450); RED BLOOD COUNT 2.68 10^6/uL (4.00-5.40); WHITE BLOOD COUNT 9.3 10^3/uL (4.0-10.0)
[2022-03-31] MEDS: AMPICILLIN SOD/SULBACTAM SOD 1.5 GM in D5W MINI-BAG PLUS 50 ML IV SCH ×4 (05:48→23:02)
[2022-03-31 05:58] LABS: CALCIUM LEVEL 8.9 MG/DL (8.3-10.6); CREATININE FOR GFR 2.34 MG/DL (0.55-1.30); GLOMERULAR FILTRATION RATE 21.9 (>45); POTASSIUM SERUM 4.4 MMOL/L (3.5-5.1)
[2022-03-31 07:53] VITALS: BP 116/49
[2022-03-31] MEDS: GABAPENTIN 300 MG CAP PO SCH ×2 (08:27→22:27)
[2022-03-31] MEDS: TORSEMIDE 100 MG TAB PO SCH (08:27)
[2022-03-31] MEDS: SPIRONOLACTONE 25 MG TAB PO SCH (08:27)
[2022-03-31] MEDS: PARoxetine 20MG TABLET PO SCH (08:27)
[2022-03-31] MEDS: FERROUS SULFATE 325MG TAB PO SCH ×2 (08:28→22:27)
[2022-03-31] MEDS: LEVEMIR (INSULIN DETEMIR) 1 UNITS/0.01ML SC SCH ×2 (08:28→22:26)
[2022-03-31] MEDS: ASPIRIN 81MG ENTERIC TABLET PO SCH (08:28)
[2022-03-31] MEDS: CALCITRIOL 0.25 MCG CAP (S0169) PO SCH (08:28)
[2022-03-31] MEDS: INSULIN LISPRO (NovoLOG) PER UNIT SC SCH ×4 (08:30→20:58)
[2022-03-31] MEDS: **hydrALAZINE HCL** 25 MG TAB PO SCH (08:57)
[2022-03-31] MEDS ORDERED: MIRALAX *UNIT DOSE* 17GM PACKET PO PRN (14:40)
[2022-03-31 16:05] VITALS: BP 112/50
[2022-03-31] MEDS: MIDODRINE 5 MG TAB PO SCH (17:53)
[2022-03-31 20:00] VITALS: BP 138/61
[2022-03-31] MEDS: LIDOCAINE 5% (LIDODERM) PATCH TD SCH (21:00)
[2022-03-31] MEDS: ATORVASTATIN 20 MG TAB PO SCH (22:26)
[2022-03-31] MEDS: allopurinoL 100 MG TAB PO SCH (22:26)
[2022-03-31] MEDS: HYDROmorphone 2 MG TAB PO PRN (23:03)
[2022-04-01 04:00] VITALS: BP 146/65
[2022-04-01] MEDS: HYDROMORPHONE HCL 0.5 MG/ 0.5 ML SYRINGE IV PRN (04:44)
[2022-04-01] MEDS: AMPICILLIN SOD/SULBACTAM SOD 1.5 GM in D5W MINI-BAG PLUS 50 ML IV SCH ×3 (05:22→18:17)
[2022-04-01 05:59] LABS: BASO % 0.5 % (0.0-1.0); EOS # 0.4 10^3/uL (0.0-0.5); EOS % 4.3 % (0.0-3.0); HEMATOCRIT 27.3 % (36.0-47.0); HEMOGLOBIN 8.4 g/dl (12.0-15.5); LYMPH # 1.8 10^3/uL (1.5-5.0); LYMPH % 21.4 % (24.0-44.0); MEAN CORPUSCULAR HEMOGLOBIN 31.8 pg (27.0-33.0); MEAN CORPUSCULAR HGB CONC 30.8 g/dl (32.0-36.5); MEAN CORPUSCULAR VOLUME 103.4 fl (80.0-96.0); MONO # 0.6 10^3/uL (0.0-0.8); MONO % 7.5 % (2.0-8.0); NEUTROPHILS # 5.6 10^3/uL (1.5-8.5); NEUTROPHILS % 65.5 % (36.0-66.0); PLATELET COUNT, AUTOMATED 145 10^3/uL (150-450); RED BLOOD COUNT 2.64 10^6/uL (4.00-5.40); WHITE BLOOD COUNT 8.5 10^3/uL (4.0-10.0)
[2022-04-01 06:25] LABS: CALCIUM LEVEL 8.8 MG/DL (8.3-10.6); CREATININE FOR GFR 2.22 MG/DL (0.55-1.30); GLOMERULAR FILTRATION RATE 23.3 (>45); POTASSIUM SERUM 3.7 MMOL/L (3.5-5.1)
[2022-04-01] MEDS: INSULIN LISPRO (NovoLOG) PER UNIT SC SCH ×4 (07:30→20:27)
[2022-04-01 07:46] VITALS: BP 141/58
[2022-04-01] MEDS ORDERED: HYDROMORPHONE HCL 0.5 MG/ 0.5 ML SYRINGE IV STA (07:51)
[2022-04-01] MEDS: MIDODRINE 5 MG TAB PO SCH ×4 (08:00→15:01)
[2022-04-01] MEDS: SPIRONOLACTONE 25 MG TAB PO SCH (09:00)
[2022-04-01] MEDS: GABAPENTIN 300 MG CAP PO SCH ×2 (11:34→21:37)
[2022-04-01] MEDS: PARoxetine 20MG TABLET PO SCH (11:35)
[2022-04-01] MEDS: TORSEMIDE 100 MG TAB PO SCH (11:35)
[2022-04-01] MEDS: SENOKOT S TAB PO PRN (11:36)
[2022-04-01] MEDS: ASPIRIN 81MG ENTERIC TABLET PO SCH (11:36)
[2022-04-01] MEDS: FERROUS SULFATE 325MG TAB PO SCH ×2 (11:37→21:37)
[2022-04-01] MEDS: LEVEMIR (INSULIN DETEMIR) 1 UNITS/0.01ML SC SCH ×2 (11:37→21:38)
[2022-04-01 11:43] VITALS: BP 120/50
[2022-04-01] MEDS ORDERED: PILL CUTTER 1 EACH XX PRN (11:45)
[2022-04-01] MEDS: HEPARIN SOD (PORCINE) 5000UNITS/ML 1ML VIAL/SYRINGE SQ SCH ×2 (15:00→21:37)
[2022-04-01] MEDS: BISACODYL 5MG TAB PO PRN (16:03)
[2022-04-01 20:00] VITALS: BP 131/52
[2022-04-01] MEDS: LIDOCAINE 5% (LIDODERM) PATCH TD SCH (21:00)
[2022-04-01] MEDS: ATORVASTATIN 20 MG TAB PO SCH (21:37)
[2022-04-01] MEDS: allopurinoL 100 MG TAB PO SCH (21:37)
[2022-04-02] VITALS (9 sets, daily range): BP systolic 125–142; BP diastolic 57–71; O2SAT 96–98
[2022-04-02] MEDS: AMPICILLIN SOD/SULBACTAM SOD 1.5 GM in D5W MINI-BAG PLUS 50 ML IV SCH ×2 (01:34→06:38)
[2022-04-02] MEDS: HYDROmorphone 2 MG TAB PO PRN ×2 (01:35→21:06)
[2022-04-02 05:20] LABS: BASO # 0.1 10^3/uL (0.0-0.2); BASO % 0.6 % (0.0-1.0); EOS # 0.3 10^3/uL (0.0-0.5); HEMATOCRIT 25.7 % (36.0-47.0); HEMOGLOBIN 7.9 g/dl (12.0-15.5); LYMPH # 1.3 10^3/uL (1.5-5.0); LYMPH % 15.5 % (24.0-44.0); MEAN CORPUSCULAR HEMOGLOBIN 31.3 pg (27.0-33.0); MEAN CORPUSCULAR HGB CONC 30.7 g/dl (32.0-36.5); MONO # 0.7 10^3/uL (0.0-0.8); MONO % 7.9 % (2.0-8.0); NEUTROPHILS % 71.3 % (36.0-66.0); PLATELET COUNT, AUTOMATED 153 10^3/uL (150-450); RED BLOOD COUNT 2.52 10^6/uL (4.00-5.40); WHITE BLOOD COUNT 8.3 10^3/uL (4.0-10.0)
[2022-04-02 05:32] LABS: ERYTHROCYTE SEDIMENTATION RATE 49 mm/hr (0-30)
[2022-04-02 05:45] LABS: CALCIUM LEVEL 8.8 MG/DL (8.3-10.6); CREATININE FOR GFR 2.12 MG/DL (0.55-1.30); GLOMERULAR FILTRATION RATE 24.6 (>45); MAGNESIUM LEVEL 1.8 MG/DL (1.8-2.4); PHOSPHORUS LEVEL 4.1 MG/DL (2.4-5.1); POTASSIUM SERUM 3.6 MMOL/L (3.5-5.1)
[2022-04-02 05:48] LABS: C REACTIVE PROTEIN QUANTITATIV 6.6 MG/DL (<1.0)
[2022-04-02] MEDS: HEPARIN SOD (PORCINE) 5000UNITS/ML 1ML VIAL/SYRINGE SQ SCH ×3 (06:38→21:06)
[2022-04-02] MEDS: LEVEMIR (INSULIN DETEMIR) 1 UNITS/0.01ML SC SCH ×2 (10:04→21:08)
[2022-04-02] MEDS: ASPIRIN 81MG ENTERIC TABLET PO SCH (10:05)
[2022-04-02] MEDS: GABAPENTIN 300 MG CAP PO SCH ×2 (10:05→21:07)
[2022-04-02] MEDS: INSULIN LISPRO (NovoLOG) PER UNIT SC SCH ×4 (10:05→21:00)
[2022-04-02] MEDS: CALCITRIOL 0.25 MCG CAP (S0169) PO SCH (10:05)
[2022-04-02] MEDS: PARoxetine 20MG TABLET PO SCH (10:06)
[2022-04-02] MEDS: FERROUS SULFATE 325MG TAB PO SCH ×2 (10:06→21:07)
[2022-04-02] MEDS: SPIRONOLACTONE 25 MG TAB PO SCH (10:07)
[2022-04-02] MEDS: TORSEMIDE 100 MG TAB PO SCH (10:11)
[2022-04-02] MEDS: MIDODRINE 5 MG TAB PO SCH ×3 (10:12→15:40)
[2022-04-02] MEDS ORDERED: AMPICILLIN SOD/SULBACTAM SOD 3 GM in D5W MINI-BAG PLUS 100 ML IV SCH (12:00)
[2022-04-02] MEDS: AMPICILLIN SOD/SULBACTAM SOD 3 GM in D5W MINI-BAG PLUS 100 ML IV SCH (18:21)
[2022-04-02] MEDS: LIDOCAINE 5% (LIDODERM) PATCH TD SCH (21:00)
[2022-04-02] MEDS: ATORVASTATIN 20 MG TAB PO SCH (21:07)
[2022-04-02] MEDS: allopurinoL 100 MG TAB PO SCH (21:07)
[2022-04-03] VITALS (11 sets, daily range): BP systolic 130–156; BP diastolic 54–60; O2SAT 95–97
[2022-04-03] MEDS: AMPICILLIN SOD/SULBACTAM SOD 3 GM in D5W MINI-BAG PLUS 100 ML IV SCH ×4 (00:38→18:34)
[2022-04-03] MEDS: HYDROMORPHONE HCL 0.5 MG/ 0.5 ML SYRINGE IV PRN ×2 (03:38→11:43)
[2022-04-03 05:22] LABS: BASO % 0.5 % (0.0-1.0); EOS # 0.4 10^3/uL (0.0-0.5); EOS % 4.7 % (0.0-3.0); HEMOGLOBIN 8.6 g/dl (12.0-15.5); LYMPH # 1.8 10^3/uL (1.5-5.0); LYMPH % 23.5 % (24.0-44.0); MEAN CORPUSCULAR HEMOGLOBIN 32.1 pg (27.0-33.0); MEAN CORPUSCULAR HGB CONC 31.9 g/dl (32.0-36.5); MEAN CORPUSCULAR VOLUME 100.7 fl (80.0-96.0); MONO # 0.5 10^3/uL (0.0-0.8); MONO % 7.1 % (2.0-8.0); NEUTROPHILS # 4.8 10^3/uL (1.5-8.5); NEUTROPHILS % 63.5 % (36.0-66.0); PLATELET COUNT, AUTOMATED 148 10^3/uL (150-450); RED BLOOD COUNT 2.68 10^6/uL (4.00-5.40); WHITE BLOOD COUNT 7.6 10^3/uL (4.0-10.0)
[2022-04-03 05:35] LABS: CALCIUM LEVEL 9.5 MG/DL (8.3-10.6); CREATININE FOR GFR 1.97 MG/DL (0.55-1.30); GLOMERULAR FILTRATION RATE 26.8 (>45); POTASSIUM SERUM 3.4 MMOL/L (3.5-5.1)
[2022-04-03] MEDS: HEPARIN SOD (PORCINE) 5000UNITS/ML 1ML VIAL/SYRINGE SQ SCH ×3 (05:59→22:00)
[2022-04-03] MEDS ORDERED: POTASSIUM CHLORIDE 10MEQ SR TABLET PO ONE ×2 (07:40→08:00)
[2022-04-03] MEDS: ASPIRIN 81MG ENTERIC TABLET PO SCH (08:02)
[2022-04-03] MEDS: GABAPENTIN 300 MG CAP PO SCH ×2 (08:02→20:32)
[2022-04-03] MEDS: FERROUS SULFATE 325MG TAB PO SCH ×2 (08:02→20:32)
[2022-04-03] MEDS: TORSEMIDE 100 MG TAB PO SCH (08:03)
[2022-04-03] MEDS: SPIRONOLACTONE 25 MG TAB PO SCH (08:04)
[2022-04-03] MEDS: MIDODRINE 5 MG TAB PO SCH ×3 (08:04→16:14)
[2022-04-03] MEDS: PARoxetine 20MG TABLET PO SCH (08:05)
[2022-04-03] MEDS: INSULIN LISPRO (NovoLOG) PER UNIT SC SCH ×4 (08:05→21:50)
[2022-04-03] MEDS: LEVEMIR (INSULIN DETEMIR) 1 UNITS/0.01ML SC SCH ×2 (08:06→21:50)
[2022-04-03] MEDS: HYDROmorphone 2 MG TAB PO PRN ×2 (09:45→20:33)
[2022-04-03] MEDS ORDERED: HYDROMORPHONE HCL 0.5 MG/ 0.5 ML SYRINGE IV PRN (11:00)
[2022-04-03] MEDS: allopurinoL 100 MG TAB PO SCH (20:32)
[2022-04-03] MEDS: ATORVASTATIN 20 MG TAB PO SCH (20:32)
[2022-04-03] MEDS: diphenhydrAMINE CREAM 30GM TOP PRN (20:33)
[2022-04-03] MEDS: LIDOCAINE 5% (LIDODERM) PATCH TD SCH (21:00)
[2022-04-04] VITALS (7 sets, daily range): BP systolic 121–167; BP diastolic 40–53; O2SAT 97
[2022-04-04] MEDS: AMPICILLIN SOD/SULBACTAM SOD 3 GM in D5W MINI-BAG PLUS 100 ML IV SCH ×4 (00:30→18:48)
[2022-04-04] MEDS: diphenhydrAMINE CREAM 30GM TOP PRN (05:35)
[2022-04-04] MEDS: HEPARIN SOD (PORCINE) 5000UNITS/ML 1ML VIAL/SYRINGE SQ SCH ×3 (05:47→21:13)
[2022-04-04 06:19] LABS: BASO # 0.1 10^3/uL (0.0-0.2); BASO % 0.8 % (0.0-1.0); EOS # 0.4 10^3/uL (0.0-0.5); EOS % 4.8 % (0.0-3.0); HEMATOCRIT 28.5 % (36.0-47.0); HEMOGLOBIN 8.8 g/dl (12.0-15.5); LYMPH # 1.7 10^3/uL (1.5-5.0); LYMPH % 23.2 % (24.0-44.0); MEAN CORPUSCULAR HEMOGLOBIN 31.2 pg (27.0-33.0); MEAN CORPUSCULAR HGB CONC 30.9 g/dl (32.0-36.5); MEAN CORPUSCULAR VOLUME 101.1 fl (80.0-96.0); MONO # 0.5 10^3/uL (0.0-0.8); MONO % 7.4 % (2.0-8.0); NEUTROPHILS # 4.6 10^3/uL (1.5-8.5); NEUTROPHILS % 62.8 % (36.0-66.0); PLATELET COUNT, AUTOMATED 163 10^3/uL (150-450); RED BLOOD COUNT 2.82 10^6/uL (4.00-5.40); WHITE BLOOD COUNT 7.3 10^3/uL (4.0-10.0)
[2022-04-04 06:26] LABS: ERYTHROCYTE SEDIMENTATION RATE 80 mm/hr (0-30)
[2022-04-04 06:39] LABS: C REACTIVE PROTEIN QUANTITATIV 4.4 MG/DL (<1.0); CALCIUM LEVEL 9.2 MG/DL (8.3-10.6); GLOMERULAR FILTRATION RATE 26.3 (>45); MAGNESIUM LEVEL 1.8 MG/DL (1.8-2.4); PHOSPHORUS LEVEL 4.2 MG/DL (2.4-5.1); POTASSIUM SERUM 3.8 MMOL/L (3.5-5.1)
[2022-04-04] MEDS: INSULIN LISPRO (NovoLOG) PER UNIT SC SCH ×4 (07:30→21:00)
[2022-04-04] MEDS: SPIRONOLACTONE 25 MG TAB PO SCH (08:32)
[2022-04-04] MEDS: TORSEMIDE 100 MG TAB PO SCH (08:32)
[2022-04-04] MEDS: FERROUS SULFATE 325MG TAB PO SCH ×2 (08:36→21:13)
[2022-04-04] MEDS: GABAPENTIN 300 MG CAP PO SCH ×2 (08:36→21:13)
[2022-04-04] MEDS: PARoxetine 20MG TABLET PO SCH (08:36)
[2022-04-04] MEDS: ASPIRIN 81MG ENTERIC TABLET PO SCH (08:36)
[2022-04-04] MEDS: MIDODRINE 5 MG TAB PO SCH ×3 (08:36→16:00)
[2022-04-04] MEDS: CALCITRIOL 0.25 MCG CAP (S0169) PO SCH (08:36)
[2022-04-04] MEDS: LEVEMIR (INSULIN DETEMIR) 1 UNITS/0.01ML SC SCH ×2 (08:37→21:00)
[2022-04-04] MEDS ORDERED: HYDROmorphone 2 MG TAB PO ONE (09:45)
[2022-04-04] MEDS: HYDROmorphone 2 MG TAB PO PRN (09:49)
[2022-04-04] MEDS ORDERED: LIDOCAINE 2% 100MG/5ML SDV (FOR ANES.) As Ordered ONE (17:29)
[2022-04-04] MEDS ORDERED: ROCURONIUM BROMIDE 50MG/5ML VIAL As Ordered ONE (17:29)
[2022-04-04] MEDS ORDERED: propofoL 200 MG/20 ML VIAL As Ordered ONE ×2 (17:29→18:59)
[2022-04-04] MEDS ORDERED: SUGAMMADEX SODIUM 500 MG/5 ML VIAL (BRIDION) As Ordered ONE (17:29)
[2022-04-04] MEDS ORDERED: ONDANSETRON 4MG 2ML VIAL As Ordered ONE (17:31)
[2022-04-04] MEDS ORDERED: BUPIVACAINE/EPIN 0.25% 30ML VIAL ONE (17:40)
[2022-04-04] MEDS ORDERED: LIDOCAINE 1% SDV 30ML VIAL As Ordered ONE (17:40)
[2022-04-04] MEDS ORDERED: PAPAVERINE HCL 60MG 2ML VIAL (30MG/ML) ONE (17:40)
[2022-04-04] MEDS ORDERED: BUPIVACAINE/EPIN 0.25% 30ML VIAL As Ordered ONE (17:40)
[2022-04-04] MEDS ORDERED: LIDOCAINE 1% SDV 30ML VIAL ONE (17:40)
[2022-04-04] MEDS ORDERED: PAPAVERINE HCL 60MG 2ML VIAL (30MG/ML) As Ordered ONE (17:41)
[2022-04-04] MEDS ORDERED: MIDAZOLAM INJ 2MG/2ML VIAL As Ordered ONE (18:37)
[2022-04-04] MEDS ORDERED: fentaNYL 100 MCG/2 ML INJECTION As Ordered ONE (18:37)
[2022-04-04] MEDS ORDERED: fentaNYL 100 MCG/2 ML INJECTION IV PRN (19:30)
[2022-04-04] MEDS ORDERED: NS 1,000 ML IV SCH (19:30)
[2022-04-04] MEDS ORDERED: oxyCODONE 5MG TAB PO PRN (19:30)
[2022-04-04] MEDS ORDERED: ONDANSETRON 4MG 2ML VIAL IV PRN (19:30)
[2022-04-04] MEDS: LIDOCAINE 5% (LIDODERM) PATCH TD SCH (21:00)
[2022-04-04] MEDS: ATORVASTATIN 20 MG TAB PO SCH (21:13)
[2022-04-04] MEDS: allopurinoL 100 MG TAB PO SCH (21:13)
[2022-04-05] VITALS (11 sets, daily range): BP systolic 77–143; BP diastolic 42–62; O2SAT 96
[2022-04-05] MEDS: AMPICILLIN SOD/SULBACTAM SOD 3 GM in D5W MINI-BAG PLUS 100 ML IV SCH ×4 (00:40→17:58)
[2022-04-05] MEDS: HYDROmorphone 2 MG TAB PO PRN ×3 (03:54→22:02)
[2022-04-05] MEDS: HEPARIN SOD (PORCINE) 5000UNITS/ML 1ML VIAL/SYRINGE SQ SCH ×3 (05:29→21:53)
[2022-04-05] MEDS: HYDROMORPHONE HCL 0.5 MG/ 0.5 ML SYRINGE IV PRN (05:39)
[2022-04-05 05:56] LABS: HEMATOCRIT 27.6 % (36.0-47.0); HEMOGLOBIN 8.4 g/dl (12.0-15.5); MEAN CORPUSCULAR HEMOGLOBIN 31.1 pg (27.0-33.0); MEAN CORPUSCULAR HGB CONC 30.4 g/dl (32.0-36.5); MEAN CORPUSCULAR VOLUME 102.2 fl (80.0-96.0); PLATELET COUNT, AUTOMATED 162 10^3/uL (150-450)
[2022-04-05 06:23] LABS: CALCIUM LEVEL 8.7 MG/DL (8.3-10.6); CREATININE FOR GFR 1.95 MG/DL (0.55-1.30); GLOMERULAR FILTRATION RATE 27.1 (>45); MAGNESIUM LEVEL 1.7 MG/DL (1.8-2.4); POTASSIUM SERUM 3.5 MMOL/L (3.5-5.1)
[2022-04-05] MEDS: INSULIN LISPRO (NovoLOG) PER UNIT SC SCH ×4 (07:26→21:00)
[2022-04-05] MEDS ORDERED: MAGNESIUM OXIDE 400MG TAB (MAG-OX) PO ONE (08:00)
[2022-04-05] MEDS: LEVEMIR (INSULIN DETEMIR) 1 UNITS/0.01ML SC SCH ×2 (08:34→21:52)
[2022-04-05] MEDS: MIDODRINE 5 MG TAB PO SCH ×3 (08:57→16:21)
[2022-04-05] MEDS: FERROUS SULFATE 325MG TAB PO SCH ×2 (08:57→21:51)
[2022-04-05] MEDS: SPIRONOLACTONE 25 MG TAB PO SCH (08:57)
[2022-04-05] MEDS: GABAPENTIN 300 MG CAP PO SCH ×3 (08:57→21:51)
[2022-04-05] MEDS: ASPIRIN 81MG ENTERIC TABLET PO SCH (08:57)
[2022-04-05] MEDS: TORSEMIDE 100 MG TAB PO SCH (08:58)
[2022-04-05] MEDS: PARoxetine 20MG TABLET PO SCH (09:08)
[2022-04-05] MEDS ORDERED: NS 1,000 ML IV ONE (09:15)
[2022-04-05] MEDS: BISACODYL 5MG TAB PO PRN (09:28)
[2022-04-05] MEDS: SENOKOT S TAB PO PRN (09:28)
[2022-04-05] MEDS: diphenhydrAMINE CREAM 30GM TOP PRN (10:04)
[2022-04-05] MEDS: TORSEMIDE 10 MG TABLET PO SCH (12:00)
[2022-04-05] MEDS ORDERED: TORSEMIDE (DEMADEX) 50 MG PER 1/2 TAB PO SCH (12:00)
[2022-04-05] MEDS: LIDOCAINE 5% (LIDODERM) PATCH TD SCH (21:00)
[2022-04-05] MEDS: ATORVASTATIN 20 MG TAB PO SCH (21:51)
[2022-04-05] MEDS: allopurinoL 100 MG TAB PO SCH (21:51)
[2022-04-06] MEDS: AMPICILLIN SOD/SULBACTAM SOD 3 GM in D5W MINI-BAG PLUS 100 ML IV SCH ×3 (00:13→13:19)
[2022-04-06 01:27] VITALS: O2SAT 96
[2022-04-06] MEDS: HEPARIN SOD (PORCINE) 5000UNITS/ML 1ML VIAL/SYRINGE SQ SCH ×3 (05:20→20:49)
[2022-04-06 06:00] VITALS: BP 150/50
[2022-04-06 06:20] LABS: HEMATOCRIT 27.6 % (36.0-47.0); HEMOGLOBIN 8.7 g/dl (12.0-15.5); MEAN CORPUSCULAR HEMOGLOBIN 32.1 pg (27.0-33.0); MEAN CORPUSCULAR HGB CONC 31.5 g/dl (32.0-36.5); MEAN CORPUSCULAR VOLUME 101.8 fl (80.0-96.0); PLATELET COUNT, AUTOMATED 153 10^3/uL (150-450); RED BLOOD COUNT 2.71 10^6/uL (4.00-5.40); WHITE BLOOD COUNT 7.7 10^3/uL (4.0-10.0)
[2022-04-06 06:48] LABS: C REACTIVE PROTEIN QUANTITATIV 3.8 MG/DL (<1.0); CALCIUM LEVEL 8.4 MG/DL (8.3-10.6); CREATININE FOR GFR 2.05 MG/DL (0.55-1.30); GLOMERULAR FILTRATION RATE 25.6 (>45); MAGNESIUM LEVEL 1.7 MG/DL (1.8-2.4); PHOSPHORUS LEVEL 3.7 MG/DL (2.4-5.1); POTASSIUM SERUM 3.4 MMOL/L (3.5-5.1)
[2022-04-06 06:53] LABS: ERYTHROCYTE SEDIMENTATION RATE 48 mm/hr (0-30)
[2022-04-06] MEDS: MIDODRINE 5 MG TAB PO SCH ×3 (08:00→16:00)
[2022-04-06] MEDS: LEVEMIR (INSULIN DETEMIR) 1 UNITS/0.01ML SC SCH ×2 (08:29→20:50)
[2022-04-06] MEDS: INSULIN LISPRO (NovoLOG) PER UNIT SC SCH ×4 (08:29→20:50)
[2022-04-06] MEDS: GABAPENTIN 300 MG CAP PO SCH ×3 (08:34→20:48)
[2022-04-06] MEDS: ASPIRIN 81MG ENTERIC TABLET PO SCH (08:34)
[2022-04-06] MEDS: FERROUS SULFATE 325MG TAB PO SCH ×2 (08:34→20:48)
[2022-04-06] MEDS: PARoxetine 20MG TABLET PO SCH (08:34)
[2022-04-06 08:37] VITALS: BP 150/49
[2022-04-06] MEDS: SPIRONOLACTONE 25 MG TAB PO SCH (08:37)
[2022-04-06] MEDS: SENOKOT S TAB PO PRN (10:27)
[2022-04-06] MEDS: BISACODYL 5MG TAB PO PRN (10:27)
[2022-04-06] MEDS ORDERED: POTASSIUM CHLORIDE 10MEQ SR TABLET PO ONE (12:00)
[2022-04-06] MEDS: TORSEMIDE 10 MG TABLET PO SCH (13:17)
[2022-04-06] MEDS: TORSEMIDE (DEMADEX) 50 MG PER 1/2 TAB PO SCH (13:17)
[2022-04-06] MEDS: AUGMENTIN 500MG TAB PO SCH ×2 (13:19→20:52)
[2022-04-06] MEDS ORDERED: BISACODYL 10MG SUPP PR ONE (14:20)
[2022-04-06 16:00] VITALS: BP 163/70
[2022-04-06] MEDS: HYDROmorphone 2 MG TAB PO PRN (16:19)
[2022-04-06 20:27] VITALS: BP 146/55
[2022-04-06] MEDS: allopurinoL 100 MG TAB PO SCH (20:48)
[2022-04-06] MEDS: ATORVASTATIN 20 MG TAB PO SCH (20:48)
[2022-04-06] MEDS: LIDOCAINE 5% (LIDODERM) PATCH TD SCH (20:51)
[2022-04-06] MEDS: MIRALAX *UNIT DOSE* 17GM PACKET PO SCH (20:51)
[2022-04-06 21:14] VITALS: O2SAT 97
[2022-04-07] MEDS: HYDROmorphone 2 MG TAB PO PRN (01:51)
[2022-04-07 05:53] VITALS: BP 129/47
[2022-04-07 06:02] LABS: HEMATOCRIT 27.2 % (36.0-47.0); HEMOGLOBIN 8.5 g/dl (12.0-15.5); MEAN CORPUSCULAR HEMOGLOBIN 31.7 pg (27.0-33.0); MEAN CORPUSCULAR HGB CONC 31.3 g/dl (32.0-36.5); MEAN CORPUSCULAR VOLUME 101.5 fl (80.0-96.0); PLATELET COUNT, AUTOMATED 139 10^3/uL (150-450); RED BLOOD COUNT 2.68 10^6/uL (4.00-5.40); WHITE BLOOD COUNT 7.7 10^3/uL (4.0-10.0)
[2022-04-07] MEDS: AUGMENTIN 500MG TAB PO SCH ×3 (06:18→21:11)
[2022-04-07] MEDS: HEPARIN SOD (PORCINE) 5000UNITS/ML 1ML VIAL/SYRINGE SQ SCH ×3 (06:19→21:12)
[2022-04-07 06:37] LABS: CALCIUM LEVEL 8.6 MG/DL (8.3-10.6); CREATININE FOR GFR 2.24 MG/DL (0.55-1.30); GLOMERULAR FILTRATION RATE 23.1 (>45); MAGNESIUM LEVEL 1.7 MG/DL (1.8-2.4); PHOSPHORUS LEVEL 3.6 MG/DL (2.4-5.1); POTASSIUM SERUM 3.5 MMOL/L (3.5-5.1)
[2022-04-07] MEDS: LEVEMIR (INSULIN DETEMIR) 1 UNITS/0.01ML SC SCH ×2 (08:40→21:12)
[2022-04-07] MEDS: MIRALAX *UNIT DOSE* 17GM PACKET PO SCH ×2 (08:40→21:00)
[2022-04-07] MEDS: INSULIN LISPRO (NovoLOG) PER UNIT SC SCH ×4 (08:40→21:00)
[2022-04-07] MEDS: MAGNESIUM OXIDE 400MG TAB (MAG-OX) PO SCH ×2 (08:41→21:13)
[2022-04-07] MEDS: GABAPENTIN 300 MG CAP PO SCH ×3 (08:41→21:13)
[2022-04-07] MEDS: CALCITRIOL 0.25 MCG CAP (S0169) PO SCH (08:41)
[2022-04-07] MEDS: PARoxetine 20MG TABLET PO SCH (08:41)
[2022-04-07] MEDS: FERROUS SULFATE 325MG TAB PO SCH ×2 (08:41→21:14)
[2022-04-07] MEDS: ASPIRIN 81MG ENTERIC TABLET PO SCH (08:41)
[2022-04-07] MEDS: MIDODRINE 5 MG TAB PO SCH ×3 (08:41→16:00)
[2022-04-07] MEDS: SPIRONOLACTONE 25 MG TAB PO SCH (08:42)
[2022-04-07 09:23] VITALS: O2SAT 97
[2022-04-07] MEDS: TORSEMIDE 10 MG TABLET PO SCH (12:13)
[2022-04-07] MEDS: TORSEMIDE (DEMADEX) 50 MG PER 1/2 TAB PO SCH (12:13)
[2022-04-07 14:00] VITALS: BP 143/57
[2022-04-07] MEDS: oxyCODONE 5MG TAB PO PRN ×2 (14:16→21:13)
[2022-04-07 21:05] VITALS: BP 157/48
[2022-04-07] MEDS: LIDOCAINE 5% (LIDODERM) PATCH TD SCH (21:12)
[2022-04-07] MEDS: ATORVASTATIN 20 MG TAB PO SCH (21:14)
[2022-04-07] MEDS: allopurinoL 100 MG TAB PO SCH (21:14)
[2022-04-08] MEDS: HEPARIN SOD (PORCINE) 5000UNITS/ML 1ML VIAL/SYRINGE SQ SCH ×3 (05:47→21:09)
[2022-04-08] MEDS: AUGMENTIN 500MG TAB PO SCH ×3 (05:47→21:09)
[2022-04-08 06:00] VITALS: BP 134/45
[2022-04-08] MEDS: MIDODRINE 5 MG TAB PO SCH ×4 (08:00→15:22)
[2022-04-08] MEDS: MIRALAX *UNIT DOSE* 17GM PACKET PO SCH ×2 (08:22→21:10)
[2022-04-08] MEDS: ASPIRIN 81MG ENTERIC TABLET PO SCH (08:22)
[2022-04-08] MEDS: MAGNESIUM OXIDE 400MG TAB (MAG-OX) PO SCH ×3 (08:23→21:10)
[2022-04-08] MEDS: SPIRONOLACTONE 25 MG TAB PO SCH (08:23)
[2022-04-08] MEDS: PARoxetine 20MG TABLET PO SCH (08:23)
[2022-04-08] MEDS: FERROUS SULFATE 325MG TAB PO SCH ×2 (08:23→21:10)
[2022-04-08] MEDS: GABAPENTIN 300 MG CAP PO SCH ×3 (08:26→21:10)
[2022-04-08] MEDS: INSULIN LISPRO (NovoLOG) PER UNIT SC SCH ×4 (08:30→21:00)
[2022-04-08] MEDS: LEVEMIR (INSULIN DETEMIR) 1 UNITS/0.01ML SC SCH ×2 (08:30→21:11)
[2022-04-08] MEDS: TORSEMIDE 10 MG TABLET PO SCH (12:00)
[2022-04-08] MEDS: TORSEMIDE (DEMADEX) 50 MG PER 1/2 TAB PO SCH (12:00)
[2022-04-08 14:00] VITALS: BP 151/51
[2022-04-08] MEDS: POTASSIUM CHLORIDE 10MEQ SR TABLET PO SCH (15:21)
[2022-04-08 21:01] VITALS: BP 112/41
[2022-04-08] MEDS: oxyCODONE 5MG TAB PO PRN (21:08)
[2022-04-08] MEDS: LIDOCAINE 5% (LIDODERM) PATCH TD SCH (21:09)
[2022-04-08] MEDS: ATORVASTATIN 20 MG TAB PO SCH (21:10)
[2022-04-08] MEDS: allopurinoL 100 MG TAB PO SCH (21:11)
[2022-04-09] MEDS: HEPARIN SOD (PORCINE) 5000UNITS/ML 1ML VIAL/SYRINGE SQ SCH ×3 (06:43→21:11)
[2022-04-09] MEDS: AUGMENTIN 500MG TAB PO SCH ×3 (06:43→21:11)
[2022-04-09] MEDS: INSULIN LISPRO (NovoLOG) PER UNIT SC SCH ×4 (06:49→21:00)
[2022-04-09 08:33] VITALS: BP 139/46
[2022-04-09] MEDS: MIDODRINE 5 MG TAB PO SCH ×3 (09:07→16:00)
[2022-04-09] MEDS: PARoxetine 20MG TABLET PO SCH (09:07)
[2022-04-09] MEDS: GABAPENTIN 300 MG CAP PO SCH ×3 (09:08→21:10)
[2022-04-09] MEDS: ASPIRIN 81MG ENTERIC TABLET PO SCH (09:08)
[2022-04-09] MEDS: MAGNESIUM OXIDE 400MG TAB (MAG-OX) PO SCH ×3 (09:09→21:10)
[2022-04-09] MEDS: FERROUS SULFATE 325MG TAB PO SCH ×2 (09:09→21:11)
[2022-04-09] MEDS: CALCITRIOL 0.25 MCG CAP (S0169) PO SCH (09:09)
[2022-04-09] MEDS: POTASSIUM CHLORIDE 10MEQ SR TABLET PO SCH (09:10)
[2022-04-09] MEDS: MIRALAX *UNIT DOSE* 17GM PACKET PO SCH ×2 (09:11→21:10)
[2022-04-09] MEDS: LEVEMIR (INSULIN DETEMIR) 1 UNITS/0.01ML SC SCH ×2 (09:11→21:09)
[2022-04-09] MEDS: SPIRONOLACTONE 25 MG TAB PO SCH (09:12)
[2022-04-09 14:00] VITALS: BP 138/48
[2022-04-09] MEDS: TORSEMIDE 10 MG TABLET PO SCH (14:25)
[2022-04-09] MEDS: TORSEMIDE (DEMADEX) 50 MG PER 1/2 TAB PO SCH (14:25)
[2022-04-09] MEDS: LIDOCAINE 5% (LIDODERM) PATCH TD SCH (21:00)
[2022-04-09] MEDS: allopurinoL 100 MG TAB PO SCH (21:11)
[2022-04-09] MEDS: ATORVASTATIN 20 MG TAB PO SCH (21:11)
[2022-04-09 22:00] VITALS: BP 147/52
[2022-04-10 06:00] VITALS: BP 150/52
[2022-04-10] MEDS: AUGMENTIN 500MG TAB PO SCH ×3 (06:17→21:31)
[2022-04-10] MEDS: HEPARIN SOD (PORCINE) 5000UNITS/ML 1ML VIAL/SYRINGE SQ SCH ×3 (06:17→21:31)
[2022-04-10] MEDS: MAGNESIUM OXIDE 400MG TAB (MAG-OX) PO SCH ×3 (08:57→21:31)
[2022-04-10] MEDS: SPIRONOLACTONE 25 MG TAB PO SCH (08:58)
[2022-04-10] MEDS: POTASSIUM CHLORIDE 10MEQ SR TABLET PO SCH (08:58)
[2022-04-10] MEDS: ASPIRIN 81MG ENTERIC TABLET PO SCH (08:58)
[2022-04-10] MEDS: PARoxetine 20MG TABLET PO SCH (08:58)
[2022-04-10] MEDS: GABAPENTIN 300 MG CAP PO SCH ×3 (08:58→21:31)
[2022-04-10] MEDS: FERROUS SULFATE 325MG TAB PO SCH ×2 (08:58→21:33)
[2022-04-10] MEDS: MIRALAX *UNIT DOSE* 17GM PACKET PO SCH ×2 (08:59→21:00)
[2022-04-10] MEDS: LEVEMIR (INSULIN DETEMIR) 1 UNITS/0.01ML SC SCH ×2 (08:59→21:37)
[2022-04-10] MEDS: INSULIN LISPRO (NovoLOG) PER UNIT SC SCH ×4 (09:00→21:00)
[2022-04-10] MEDS: MIDODRINE 5 MG TAB PO SCH ×3 (09:01→15:27)
[2022-04-10] MEDS: TORSEMIDE 10 MG TABLET PO SCH (13:33)
[2022-04-10] MEDS: TORSEMIDE (DEMADEX) 50 MG PER 1/2 TAB PO SCH (13:34)
[2022-04-10 14:00] VITALS: BP 149/54
[2022-04-10] MEDS: oxyCODONE 5MG TAB PO PRN ×2 (15:19→20:43)
[2022-04-10 20:08] VITALS: BP 136/47
[2022-04-10] MEDS: LIDOCAINE 5% (LIDODERM) PATCH TD SCH (20:40)
[2022-04-10 20:49] VITALS: BP 132/85
[2022-04-10] MEDS: ATORVASTATIN 20 MG TAB PO SCH (21:31)
[2022-04-10] MEDS: allopurinoL 100 MG TAB PO SCH (21:33)
[2022-04-11] MEDS: oxyCODONE 5MG TAB PO PRN (02:52)
[2022-04-11 05:28] VITALS: BP 127/48
[2022-04-11 06:14] LABS: HEMATOCRIT 29.3 % (36.0-47.0); MEAN CORPUSCULAR HEMOGLOBIN 31.7 pg (27.0-33.0); MEAN CORPUSCULAR HGB CONC 30.7 g/dl (32.0-36.5); MEAN CORPUSCULAR VOLUME 103.2 fl (80.0-96.0); PLATELET COUNT, AUTOMATED 147 10^3/uL (150-450); RED BLOOD COUNT 2.84 10^6/uL (4.00-5.40); WHITE BLOOD COUNT 8.4 10^3/uL (4.0-10.0)
[2022-04-11 06:38] LABS: C REACTIVE PROTEIN QUANTITATIV 2.4 MG/DL (<1.0)
[2022-04-11 06:39] LABS: CALCIUM LEVEL 9.5 MG/DL (8.3-10.6); CREATININE FOR GFR 2.46 MG/DL (0.55-1.30); GLOMERULAR FILTRATION RATE 20.7 (>45); MAGNESIUM LEVEL 2.6 MG/DL (1.8-2.4); PHOSPHORUS LEVEL 4.1 MG/DL (2.4-5.1)
[2022-04-11] MEDS: HEPARIN SOD (PORCINE) 5000UNITS/ML 1ML VIAL/SYRINGE SQ SCH ×3 (06:39→21:06)
[2022-04-11] MEDS: AUGMENTIN 500MG TAB PO SCH ×3 (06:39→21:06)
[2022-04-11] MEDS: INSULIN LISPRO (NovoLOG) PER UNIT SC SCH ×4 (09:34→20:55)
[2022-04-11] MEDS: LEVEMIR (INSULIN DETEMIR) 1 UNITS/0.01ML SC SCH ×2 (09:34→21:07)
[2022-04-11] MEDS: FERROUS SULFATE 325MG TAB PO SCH ×2 (09:35→21:07)
[2022-04-11] MEDS: BISACODYL 5MG TAB PO PRN (09:35)
[2022-04-11] MEDS: GABAPENTIN 300 MG CAP PO SCH ×3 (09:35→21:06)
[2022-04-11] MEDS: ASPIRIN 81MG ENTERIC TABLET PO SCH (09:35)
[2022-04-11] MEDS: MAGNESIUM OXIDE 400MG TAB (MAG-OX) PO SCH ×3 (09:36→21:06)
[2022-04-11] MEDS: POTASSIUM CHLORIDE 10MEQ SR TABLET PO SCH (09:36)
[2022-04-11] MEDS: CALCITRIOL 0.25 MCG CAP (S0169) PO SCH (09:36)
[2022-04-11] MEDS: SENOKOT S TAB PO PRN (09:36)
[2022-04-11] MEDS: MIDODRINE 5 MG TAB PO SCH ×3 (09:36→15:42)
[2022-04-11] MEDS: PARoxetine 20MG TABLET PO SCH (09:36)
[2022-04-11] MEDS: SPIRONOLACTONE 25 MG TAB PO SCH (09:36)
[2022-04-11] MEDS: MIRALAX *UNIT DOSE* 17GM PACKET PO SCH ×2 (09:37→21:05)
[2022-04-11] MEDS: TORSEMIDE 10 MG TABLET PO SCH (13:09)
[2022-04-11] MEDS: TORSEMIDE (DEMADEX) 50 MG PER 1/2 TAB PO SCH (13:10)
[2022-04-11 14:00] VITALS: BP 157/46
[2022-04-11] MEDS: LIDOCAINE 5% (LIDODERM) PATCH TD SCH (21:00)
[2022-04-11] MEDS: allopurinoL 100 MG TAB PO SCH (21:06)
[2022-04-11] MEDS: ATORVASTATIN 20 MG TAB PO SCH (21:06)
[2022-04-11 22:00] VITALS: BP 158/61
[2022-04-11 22:31] VITALS: O2SAT 99
[2022-04-12] MEDS: HEPARIN SOD (PORCINE) 5000UNITS/ML 1ML VIAL/SYRINGE SQ SCH ×3 (05:30→21:20)
[2022-04-12 06:00] VITALS: BP 147/54
[2022-04-12 06:03] LABS: FREE T4 1.02 NG/DL (0.89-1.76); THYROID STIMULATING HORMONE 1.083 uIU/ML (0.55-4.78)
[2022-04-12] MEDS: PARoxetine 20MG TABLET PO SCH (09:43)
[2022-04-12] MEDS: LEVEMIR (INSULIN DETEMIR) 1 UNITS/0.01ML SC SCH ×2 (09:43→21:21)
[2022-04-12] MEDS: ASPIRIN 81MG ENTERIC TABLET PO SCH (09:43)
[2022-04-12] MEDS: SPIRONOLACTONE 25 MG TAB PO SCH (09:44)
[2022-04-12] MEDS: MAGNESIUM OXIDE 400MG TAB (MAG-OX) PO SCH ×3 (09:44→21:19)
[2022-04-12] MEDS: MIDODRINE 5 MG TAB PO SCH ×3 (09:44→16:15)
[2022-04-12] MEDS: GABAPENTIN 300 MG CAP PO SCH ×3 (09:44→21:18)
[2022-04-12] MEDS: POTASSIUM CHLORIDE 10MEQ SR TABLET PO SCH (09:45)
[2022-04-12] MEDS: FERROUS SULFATE 325MG TAB PO SCH ×2 (09:45→21:19)
[2022-04-12] MEDS: MIRALAX *UNIT DOSE* 17GM PACKET PO SCH ×2 (09:45→21:18)
[2022-04-12] MEDS: INSULIN LISPRO (NovoLOG) PER UNIT SC SCH ×4 (09:53→21:20)
[2022-04-12] MEDS ORDERED: BENZOCAINE 10% 9GM TUBE (ANBESOL) TOP PRN (10:20)
[2022-04-12] MEDS: TORSEMIDE (DEMADEX) 50 MG PER 1/2 TAB PO SCH (12:55)
[2022-04-12] MEDS: TORSEMIDE 10 MG TABLET PO SCH (12:56)
[2022-04-12] MEDS ORDERED: FLEET ENEMA PR PRN (15:45)
[2022-04-12] MEDS: BISACODYL 5MG TAB PO PRN (16:16)
[2022-04-12] MEDS: SENOKOT S TAB PO PRN (16:16)
[2022-04-12 20:00] VITALS: BP 166/74
[2022-04-12] MEDS: LIDOCAINE 5% (LIDODERM) PATCH TD SCH (21:00)
[2022-04-12] MEDS: oxyCODONE 5MG TAB PO PRN (21:19)
[2022-04-12] MEDS: ATORVASTATIN 20 MG TAB PO SCH (21:19)
[2022-04-12] MEDS: allopurinoL 100 MG TAB PO SCH (21:19)
[2022-04-12 23:52] VITALS: BP 178/65
[2022-04-13 00:05] VITALS: BP 170/58
[2022-04-13] MEDS: oxyCODONE 5MG TAB PO PRN (04:25)
[2022-04-13] MEDS: LIDOCAINE 5% (LIDODERM) PATCH TD SCH ×2 (04:35→21:06)
[2022-04-13] MEDS: HEPARIN SOD (PORCINE) 5000UNITS/ML 1ML VIAL/SYRINGE SQ SCH ×3 (05:25→21:07)
[2022-04-13 06:00] VITALS: BP 163/59
[2022-04-13] MEDS: MIDODRINE 5 MG TAB PO SCH ×3 (08:00→15:00)
[2022-04-13] MEDS: LEVEMIR (INSULIN DETEMIR) 1 UNITS/0.01ML SC SCH ×2 (08:56→21:06)
[2022-04-13] MEDS: FERROUS SULFATE 325MG TAB PO SCH ×2 (08:57→21:07)
[2022-04-13] MEDS: INSULIN LISPRO (NovoLOG) PER UNIT SC SCH ×4 (08:57→22:20)
[2022-04-13] MEDS: BISACODYL 5MG TAB PO PRN (08:57)
[2022-04-13] MEDS: SENOKOT S TAB PO PRN (08:58)
[2022-04-13] MEDS: ASPIRIN 81MG ENTERIC TABLET PO SCH (08:58)
[2022-04-13] MEDS: POTASSIUM CHLORIDE 10MEQ SR TABLET PO SCH (08:58)
[2022-04-13] MEDS: GABAPENTIN 300 MG CAP PO SCH ×3 (08:58→21:07)
[2022-04-13] MEDS: PARoxetine 20MG TABLET PO SCH (08:58)
[2022-04-13] MEDS: SPIRONOLACTONE 25 MG TAB PO SCH (08:59)
[2022-04-13] MEDS: MIRALAX *UNIT DOSE* 17GM PACKET PO SCH ×2 (08:59→21:07)
[2022-04-13] MEDS: MAGNESIUM OXIDE 400MG TAB (MAG-OX) PO SCH ×3 (08:59→21:07)
[2022-04-13] MEDS: TORSEMIDE 10 MG TABLET PO SCH (11:46)
[2022-04-13] MEDS: TORSEMIDE (DEMADEX) 50 MG PER 1/2 TAB PO SCH (11:46)
[2022-04-13 14:19] VITALS: BP 146/50
[2022-04-13] MEDS: allopurinoL 100 MG TAB PO SCH (21:07)
[2022-04-13] MEDS: ATORVASTATIN 20 MG TAB PO SCH (21:07)
[2022-04-14] MEDS: HEPARIN SOD (PORCINE) 5000UNITS/ML 1ML VIAL/SYRINGE SQ SCH ×3 (05:35→21:51)
[2022-04-14 06:00] VITALS: BP 110/68
[2022-04-14] MEDS: ASPIRIN 81MG ENTERIC TABLET PO SCH (08:34)
[2022-04-14] MEDS: MAGNESIUM OXIDE 400MG TAB (MAG-OX) PO SCH ×3 (08:34→21:51)
[2022-04-14] MEDS: GABAPENTIN 300 MG CAP PO SCH ×3 (08:34→21:50)
[2022-04-14] MEDS: POTASSIUM CHLORIDE 10MEQ SR TABLET PO SCH (08:34)
[2022-04-14] MEDS: PARoxetine 20MG TABLET PO SCH (08:34)
[2022-04-14] MEDS: INSULIN LISPRO (NovoLOG) PER UNIT SC SCH ×4 (08:35→20:43)
[2022-04-14] MEDS: LEVEMIR (INSULIN DETEMIR) 1 UNITS/0.01ML SC SCH ×2 (08:35→21:51)
[2022-04-14] MEDS: SPIRONOLACTONE 25 MG TAB PO SCH (08:35)
[2022-04-14] MEDS: MIRALAX *UNIT DOSE* 17GM PACKET PO SCH ×2 (08:35→21:51)
[2022-04-14] MEDS: CALCITRIOL 0.25 MCG CAP (S0169) PO SCH (08:35)
[2022-04-14] MEDS: FERROUS SULFATE 325MG TAB PO SCH ×2 (08:35→21:51)
[2022-04-14] MEDS: MIDODRINE 5 MG TAB PO SCH ×3 (08:36→16:56)
[2022-04-14] MEDS: TORSEMIDE 10 MG TABLET PO SCH (12:24)
[2022-04-14] MEDS: TORSEMIDE (DEMADEX) 50 MG PER 1/2 TAB PO SCH (12:27)
[2022-04-14] MEDS: LIDOCAINE 5% (LIDODERM) PATCH TD SCH (21:00)
[2022-04-14] MEDS: ATORVASTATIN 20 MG TAB PO SCH (21:50)
[2022-04-14] MEDS: allopurinoL 100 MG TAB PO SCH (21:51)
[2022-04-14] MEDS: oxyCODONE 5MG TAB PO PRN (22:00)
[2022-04-15 06:00] VITALS: BP 162/52
[2022-04-15] MEDS: HEPARIN SOD (PORCINE) 5000UNITS/ML 1ML VIAL/SYRINGE SQ SCH ×3 (06:03→21:01)
[2022-04-15 08:54] VITALS: BP 98/58
[2022-04-15] MEDS: LEVEMIR (INSULIN DETEMIR) 1 UNITS/0.01ML SC SCH ×2 (08:55→20:52)
[2022-04-15] MEDS: PARoxetine 20MG TABLET PO SCH (08:55)
[2022-04-15] MEDS: INSULIN LISPRO (NovoLOG) PER UNIT SC SCH ×4 (08:55→20:51)
[2022-04-15] MEDS: POTASSIUM CHLORIDE 10MEQ SR TABLET PO SCH (08:56)
[2022-04-15] MEDS: GABAPENTIN 300 MG CAP PO SCH ×3 (08:56→20:50)
[2022-04-15] MEDS: ASPIRIN 81MG ENTERIC TABLET PO SCH (08:56)
[2022-04-15] MEDS: MAGNESIUM OXIDE 400MG TAB (MAG-OX) PO SCH (08:56)
[2022-04-15] MEDS: MIDODRINE 5 MG TAB PO SCH ×3 (08:56→17:56)
[2022-04-15] MEDS: FERROUS SULFATE 325MG TAB PO SCH ×2 (08:56→20:50)
[2022-04-15] MEDS: MIRALAX *UNIT DOSE* 17GM PACKET PO SCH ×2 (08:56→20:51)
[2022-04-15] MEDS: SPIRONOLACTONE 25 MG TAB PO SCH (08:56)
[2022-04-15 10:28] LABS: CALCIUM LEVEL 9.8 MG/DL (8.3-10.6); CREATININE FOR GFR 2.33 MG/DL (0.55-1.30); MAGNESIUM LEVEL 2.8 MG/DL (1.8-2.4); POTASSIUM SERUM 4.1 MMOL/L (3.5-5.1)
[2022-04-15] MEDS: TORSEMIDE (DEMADEX) 50 MG PER 1/2 TAB PO SCH (12:00)
[2022-04-15] MEDS: TORSEMIDE 10 MG TABLET PO SCH (12:00)
[2022-04-15 12:31] VITALS: BP 112/64
[2022-04-15 17:50] VITALS: BP 124/68
[2022-04-15] MEDS: allopurinoL 100 MG TAB PO SCH (20:50)
[2022-04-15] MEDS: ATORVASTATIN 20 MG TAB PO SCH (20:51)
[2022-04-15] MEDS: oxyCODONE 5MG TAB PO PRN (20:53)
[2022-04-15] MEDS: LIDOCAINE 5% (LIDODERM) PATCH TD SCH (21:00)
[2022-04-16 05:02] VITALS: BP 164/64
[2022-04-16] MEDS: HEPARIN SOD (PORCINE) 5000UNITS/ML 1ML VIAL/SYRINGE SQ SCH ×3 (06:06→21:21)
[2022-04-16 06:15] LABS: CALCIUM LEVEL 9.8 MG/DL (8.3-10.6); CREATININE FOR GFR 2.28 MG/DL (0.55-1.30); GLOMERULAR FILTRATION RATE 22.6 (>45); MAGNESIUM LEVEL 2.8 MG/DL (1.8-2.4); PHOSPHORUS LEVEL 4.5 MG/DL (2.4-5.1); POTASSIUM SERUM 4.4 MMOL/L (3.5-5.1)
[2022-04-16] MEDS: LEVEMIR (INSULIN DETEMIR) 1 UNITS/0.01ML SC SCH ×2 (09:07→21:20)
[2022-04-16] MEDS: INSULIN LISPRO (NovoLOG) PER UNIT SC SCH ×4 (09:08→21:00)
[2022-04-16] MEDS: MIRALAX *UNIT DOSE* 17GM PACKET PO SCH ×2 (09:08→20:53)
[2022-04-16] MEDS: PARoxetine 20MG TABLET PO SCH (09:09)
[2022-04-16] MEDS: MIDODRINE 5 MG TAB PO SCH ×3 (09:09→16:10)
[2022-04-16] MEDS: FERROUS SULFATE 325MG TAB PO SCH ×2 (09:09→21:21)
[2022-04-16] MEDS: GABAPENTIN 300 MG CAP PO SCH ×3 (09:09→21:21)
[2022-04-16] MEDS: CALCITRIOL 0.25 MCG CAP (S0169) PO SCH (09:09)
[2022-04-16] MEDS: SPIRONOLACTONE 25 MG TAB PO SCH (09:09)
[2022-04-16] MEDS: ASPIRIN 81MG ENTERIC TABLET PO SCH (09:09)
[2022-04-16] MEDS ORDERED: TORSEMIDE 20 MG TAB PO SCH (12:00)
[2022-04-16] MEDS: oxyCODONE 5MG TAB PO PRN ×2 (17:28→23:41)
[2022-04-16] MEDS: LIDOCAINE 5% (LIDODERM) PATCH TD SCH (20:53)
[2022-04-16] MEDS: allopurinoL 100 MG TAB PO SCH (21:21)
[2022-04-16] MEDS: ATORVASTATIN 20 MG TAB PO SCH (21:21)
[2022-04-17 06:00] VITALS: BP 156/50
[2022-04-17] MEDS: HEPARIN SOD (PORCINE) 5000UNITS/ML 1ML VIAL/SYRINGE SQ SCH ×2 (06:48→14:00)
[2022-04-17] MEDS: LEVEMIR (INSULIN DETEMIR) 1 UNITS/0.01ML SC SCH (09:49)
[2022-04-17] MEDS: SPIRONOLACTONE 25 MG TAB PO SCH (09:50)
[2022-04-17] MEDS: GABAPENTIN 300 MG CAP PO SCH (09:50)
[2022-04-17] MEDS: PARoxetine 20MG TABLET PO SCH (09:50)
[2022-04-17] MEDS: FERROUS SULFATE 325MG TAB PO SCH (09:50)
[2022-04-17] MEDS: ASPIRIN 81MG ENTERIC TABLET PO SCH (09:50)
[2022-04-17] MEDS: MIDODRINE 5 MG TAB PO SCH ×2 (09:50→12:00)
[2022-04-17] MEDS: MIRALAX *UNIT DOSE* 17GM PACKET PO SCH (09:50)
[2022-04-17] MEDS: INSULIN LISPRO (NovoLOG) PER UNIT SC SCH ×2 (09:50→12:09)
[2022-04-17] MEDS ORDERED: OXYC-517 PO (14:25)
[2022-04-17] MEDS ORDERED: GABA-282 PO (14:25)
[2022-04-17] MEDS ORDERED: MIRA1POW3 PO (14:25)
[2022-04-17] MEDS ORDERED: MIDO5TA PO (14:25)
[2022-04-17] MEDS ORDERED: SPIR-10 PO (14:36)
== END 2022-04-17 15:13 | disposition home health service (06) | DRG 501 ==
LOC: M SDC 09:10 → M PCU 17:15 → M MSPAV 04-03 16:54
PROVIDERS: ADMIT Surgery Vascular Surgery; ATTEND Internal Medicine
PROC: 0KBT0ZZ Excision of Left Lower Leg Muscle, Open Approach (ICD-10-PCS; principal; 2022-03-28 11:00)
PROC: 03170KD Bypass Right Brachial Artery to Upper Arm Vein with Nonautologous Tissue Substitute, Open Approach (ICD-10-PCS; 2022-03-28 11:00)
PROC: 03R Upper Arteries, Replacement (ICD-10-PCS; 2022-03-30)
PROC: 03L70CZ Occlusion of Right Brachial Artery with Extraluminal Device, Open Approach (ICD-10-PCS; 2022-04-04)
DX: T87.44 Infection of amputation stump, left lower extremity (principal); N18.5 Chronic kidney disease, stage 5; I13.2 Hypertensive heart and chronic kidney disease with heart failure and with stage 5 chronic kidney disease, or end stage renal disease; I50.32 Chronic diastolic (congestive) heart failure; I96 Gangrene, not elsewhere classified; R04.2 Hemoptysis; T87.81 Dehiscence of amputation stump; E11.22 Type 2 diabetes mellitus with diabetic chronic kidney disease; T87.54 Necrosis of amputation stump, left lower extremity; E11.622 Type 2 diabetes mellitus with other skin ulcer; M19.90 Unspecified osteoarthritis, unspecified site; I77.1 Stricture of artery; E78.5 Hyperlipidemia, unspecified; E66.9 Obesity, unspecified; I25.10 Atherosclerotic heart disease of native coronary artery without angina pectoris; M79.7 Fibromyalgia; E11.42 Type 2 diabetes mellitus with diabetic polyneuropathy; I95.9 Hypotension, unspecified; E04.1 Nontoxic single thyroid nodule; D53.8 Other specified nutritional anemias; K59.00 Constipation, unspecified; M10.9 Gout, unspecified; A49.01 Methicillin susceptible Staphylococcus aureus infection, unspecified site; E83.42 Hypomagnesemia; D50.9 Iron deficiency anemia, unspecified; E87.6 Hypokalemia; F32.A Depression, unspecified; Z90.49 Acquired absence of other specified parts of digestive tract; Z90.79 Acquired absence of other genital organ(s); Z87.891 Personal history of nicotine dependence; Z79.82 Long term (current) use of aspirin; Z79.899 Other long term (current) drug therapy; Z89.512 Acquired absence of left leg below knee; Z79.4 Long term (current) use of insulin; Z91.048 Other nonmedicinal substance allergy status; Z88.8 Allergy status to other drugs, medicaments and biological substances

== ENCOUNTER 2022-04-22 13:30 | Inpatient (IN) | payer OTHER ==
[~2022-04-22] VITALS: Ht 177.8 cm; Wt 118.0 kg
[~2022-04-22 13:30] MED LIST changes: +MIDO5TA PO; +MIRA1POW3 PO; +OXYC-517 PO; -ceFAZolin SOD 2 GM in IV 1 EA IV ONE
[2022-04-22 14:31] LABS: BASO % 0.6 % (0.0-1.0); EOS # 0.2 10^3/uL (0.0-0.5); EOS % 2.3 % (0.0-3.0); HEMOGLOBIN 8.9 g/dl (12.0-15.5); LYMPH % 16.1 % (24.0-44.0); MEAN CORPUSCULAR HEMOGLOBIN 31.6 pg (27.0-33.0); MEAN CORPUSCULAR HGB CONC 31.8 g/dl (32.0-36.5); MEAN CORPUSCULAR VOLUME 99.3 fl (80.0-96.0); MONO # 0.6 10^3/uL (0.0-0.8); MONO % 9.2 % (2.0-8.0); NEUTROPHILS # 4.6 10^3/uL (1.5-8.5); NEUTROPHILS % 71.2 % (36.0-66.0); PLATELET COUNT, AUTOMATED 153 10^3/uL (150-450); RED BLOOD COUNT 2.82 10^6/uL (4.00-5.40); WHITE BLOOD COUNT 6.4 10^3/uL (4.0-10.0)
[2022-04-22 14:43] LABS: VENOUS BASE EXCESS -1.2 (-2.0-2.0); VENOUS HCO3 24.4 MEQ/L (23.0-27.0); VENOUS O2 SATURATION 92.2 % (60.0-80.0); VENOUS PARTIAL PRESSURE CO2 44.5 mmHg (38.0-50.0); VENOUS PARTIAL PRESSURE O2 67.7 mmHg (30.0-50.0); VENOUS PH 7.357 UNITS (7.330-7.430); VENOUS STANDARD HCO3 23.4 MEQ/L; VENOUS TOTAL CO2 25.8 MEQ/L (24.0-28.0)
[2022-04-22 14:54] LABS: ETHYL ALCOHOL (ETHANOL) 0.005 % (0.000-0.010)
[2022-04-22 14:56] LABS: ALBUMIN 3.3 G/DL (3.2-5.2); BILIRUBIN,DIRECT 0.3 MG/DL (<0.4); BILIRUBIN,TOTAL 0.9 MG/DL (0.3-1.2); MAGNESIUM LEVEL 1.7 MG/DL (1.8-2.4); TOTAL PROTEIN 6.1 G/DL (5.7-8.2)
[2022-04-22 14:57] LABS: ACETONE/KETONE 0.4 MMOL/L (0.02-0.27)
[2022-04-22 15:31] LABS: HEMOGLOBIN A1c 7.4 % (4.0-6.0)
[2022-04-22 15:40] LABS: RSV AMPLIFICATION NEGATIVE (NEGATIVE)
[2022-04-22 17:47] LABS: AMPHETAMINES LEVEL URINE NEGATIVE (NEGATIVE); BARBITURATES URINE NEGATIVE (NEGATIVE); BENZODIAZEPINES URINE NEGATIVE (NEGATIVE); COCAINE METABOLITE URINE NEGATIVE (NEGATIVE); METHADONE URINE NEGATIVE (NEGATIVE); OPIATES URINE NEGATIVE (NEGATIVE)
[2022-04-22 17:48] LABS: CANNABINOIDS URINE NEGATIVE (NEGATIVE); PHENCYCLIDINE URINE NEGATIVE (NEGATIVE)
[2022-04-22] MEDS ORDERED: LANTINJ4 SC (19:00)
[2022-04-22] MEDS ORDERED: ATOR40TA75 PO (19:00)
[2022-04-22] MEDS ORDERED: ECOT81TA5 PO (19:00)
[2022-04-22] MEDS ORDERED: GABA-282 PO (19:00)
[2022-04-22] MEDS ORDERED: ALLO10TA PO (19:00)
[2022-04-22] MEDS ORDERED: OXYC-517 PO (19:09)
[2022-04-22] MEDS ORDERED: PARO40TA3 PO (19:09)
[2022-04-22] MEDS ORDERED: MIDO5TA PO (19:09)
[2022-04-22] MEDS ORDERED: INSUH10VL SC (19:09)
[2022-04-22] MEDS ORDERED: HYDR-3910 PO (19:12)
[2022-04-22] MEDS ORDERED: SPIR-10 PO (19:12)
[2022-04-22] MEDS ORDERED: POLY17PO18 PO (19:12)
[2022-04-22] MEDS ORDERED: GLUCAGON INJ 1MG VIAL SC PRN (19:15)
[2022-04-22] MEDS ORDERED: HOME MED LIST COMPLETE! XX SCH (19:15)
[2022-04-22] MEDS ORDERED: GLUCOSE 4GM CHEW TABLET PO PRN (19:15)
[2022-04-22] MEDS ORDERED: DEXTROSE 50% 50ML SYRINGE IV PRN (19:15)
[2022-04-22] MEDS: SPIRONOLACTONE 25 MG TAB PO SCH (21:00)
[2022-04-22] MEDS: MIRALAX *UNIT DOSE* 17GM PACKET PO SCH (21:00)
[2022-04-22 22:41] LABS: FREE T4 1.52 NG/DL (0.89-1.76); THYROID STIMULATING HORMONE 1.008 uIU/ML (0.55-4.78)
[2022-04-22 22:57] VITALS: BP 102/60
[2022-04-22] MEDS ORDERED: CLOPIDOGREL 75 MG TAB PO STA (23:41)
[2022-04-22] MEDS: NS 1,000 ML IV SCH (23:43)
[2022-04-22] MEDS: ATORVASTATIN 20 MG TAB PO SCH (23:43)
[2022-04-22] MEDS: FERROUS SULFATE 325MG TAB PO SCH (23:43)
[2022-04-22] MEDS: GABAPENTIN 300 MG CAP PO SCH (23:43)
[2022-04-22] MEDS: LEVEMIR (INSULIN DETEMIR) 1 UNITS/0.01ML SC SCH (23:44)
[2022-04-22] MEDS: allopurinoL 100 MG TAB PO SCH (23:44)
[2022-04-22] MEDS: INSULIN LISPRO (NovoLOG) PER UNIT SC SCH (23:45)
[2022-04-22] MEDS: HEPARIN SOD (PORCINE) 5000UNITS/ML 1ML VIAL/SYRINGE SC SCH (23:45)
[2022-04-23] MEDS: HEPARIN SOD (PORCINE) 5000UNITS/ML 1ML VIAL/SYRINGE SC SCH ×3 (06:22→22:12)
[2022-04-23] MEDS: NS 1,000 ML IV SCH (06:23)
[2022-04-23 07:05] VITALS: BP 156/59
[2022-04-23] MEDS: INSULIN LISPRO (NovoLOG) PER UNIT SC SCH ×6 (07:30→22:13)
[2022-04-23 08:00] VITALS: BP 150/60
[2022-04-23] MEDS: MIDODRINE 5 MG TAB PO SCH ×3 (08:00→15:23)
[2022-04-23 08:30] LABS: HEMATOCRIT 29.3 % (36.0-47.0); HEMOGLOBIN 9.5 g/dl (12.0-15.5); MEAN CORPUSCULAR HEMOGLOBIN 32.3 pg (27.0-33.0); MEAN CORPUSCULAR HGB CONC 32.4 g/dl (32.0-36.5); MEAN CORPUSCULAR VOLUME 99.7 fl (80.0-96.0); PLATELET COUNT, AUTOMATED 120 10^3/uL (150-450); RED BLOOD COUNT 2.94 10^6/uL (4.00-5.40); WHITE BLOOD COUNT 5.8 10^3/uL (4.0-10.0)
[2022-04-23] MEDS ORDERED: **hydrALAZINE HCL** 25 MG TAB PO SCH (09:00)
[2022-04-23] MEDS: MIRALAX *UNIT DOSE* 17GM PACKET PO SCH ×3 (09:00→22:11)
[2022-04-23 09:01] LABS: ALBUMIN 2.9 G/DL (3.2-5.2); BILIRUBIN,TOTAL 1.1 MG/DL (0.3-1.2); CALCIUM LEVEL 9.1 MG/DL (8.3-10.6); CHOLESTEROL RISK RATIO 4.75 (<5); CREATININE FOR GFR 1.49 MG/DL (0.55-1.30); GLOMERULAR FILTRATION RATE 36.9 (>45); HDL CHOLESTEROL 32.4 MG/DL (>40); LDL CHOLESTEROL 82.2 MG/DL (<100); MAGNESIUM LEVEL 1.6 MG/DL (1.8-2.4); POTASSIUM SERUM 3.8 MMOL/L (3.5-5.1); TOTAL PROTEIN 5.5 G/DL (5.7-8.2)
[2022-04-23] MEDS: LEVEMIR (INSULIN DETEMIR) 1 UNITS/0.01ML SC SCH ×2 (09:01→22:13)
[2022-04-23] MEDS: PARoxetine 20MG TABLET PO SCH (09:01)
[2022-04-23] MEDS: ASPIRIN 81MG ENTERIC TABLET PO SCH (09:01)
[2022-04-23] MEDS: GABAPENTIN 300 MG CAP PO SCH ×3 (09:02→22:11)
[2022-04-23] MEDS: FERROUS SULFATE 325MG TAB PO SCH ×2 (09:03→22:10)
[2022-04-23] MEDS: ACETAMINOPHEN TAB 650MG DOSE (2X325MG) PO PRN (09:03)
[2022-04-23] MEDS: CLOPIDOGREL 75 MG TAB PO SCH (09:03)
[2022-04-23 13:00] VITALS: BP 136/58
[2022-04-23 14:00] VITALS: BP 110/58
[2022-04-23 20:00] VITALS: BP 101/58
[2022-04-23] MEDS: SPIRONOLACTONE 25 MG TAB PO SCH (22:09)
[2022-04-23] MEDS: allopurinoL 100 MG TAB PO SCH (22:10)
[2022-04-23] MEDS: ATORVASTATIN 20 MG TAB PO SCH (22:10)
[2022-04-24] VITALS (7 sets, daily range): BP systolic 83–180; BP diastolic 50–73
[2022-04-24] MEDS: HEPARIN SOD (PORCINE) 5000UNITS/ML 1ML VIAL/SYRINGE SC SCH ×3 (05:27→21:55)
[2022-04-24] MEDS: MIDODRINE 5 MG TAB PO SCH ×3 (08:00→16:00)
[2022-04-24] MEDS: MIRALAX *UNIT DOSE* 17GM PACKET PO SCH ×3 (09:00→21:51)
[2022-04-24] MEDS: ASPIRIN 81MG ENTERIC TABLET PO SCH (09:05)
[2022-04-24] MEDS: CLOPIDOGREL 75 MG TAB PO SCH (09:06)
[2022-04-24] MEDS: GABAPENTIN 300 MG CAP PO SCH ×3 (09:06→21:52)
[2022-04-24] MEDS: FERROUS SULFATE 325MG TAB PO SCH ×2 (09:06→21:52)
[2022-04-24] MEDS: PARoxetine 20MG TABLET PO SCH (09:06)
[2022-04-24] MEDS: INSULIN LISPRO (NovoLOG) PER UNIT SC SCH ×4 (09:07→21:00)
[2022-04-24] MEDS: LEVEMIR (INSULIN DETEMIR) 1 UNITS/0.01ML SC SCH ×2 (09:08→21:51)
[2022-04-24] MEDS: AMPICILLIN SOD/SULBACTAM SOD 1.5 GM in D5W MINI-BAG PLUS 50 ML IV SCH (18:05)
[2022-04-24] MEDS: SPIRONOLACTONE 25 MG TAB PO SCH (21:52)
[2022-04-24] MEDS: ATORVASTATIN 20 MG TAB PO SCH (21:52)
[2022-04-24] MEDS: allopurinoL 100 MG TAB PO SCH (21:53)
[2022-04-24] MEDS: oxyCODONE 5MG TAB PO PRN (21:54)
[2022-04-25] MEDS: AMPICILLIN SOD/SULBACTAM SOD 1.5 GM in D5W MINI-BAG PLUS 50 ML IV SCH ×3 (00:03→12:21)
[2022-04-25 05:20] VITALS: BP 159/60
[2022-04-25] MEDS: HEPARIN SOD (PORCINE) 5000UNITS/ML 1ML VIAL/SYRINGE SC SCH ×3 (05:57→21:37)
[2022-04-25] MEDS: oxyCODONE 5MG TAB PO PRN (05:58)
[2022-04-25] MEDS ORDERED: KETOROLAC 30 MG/ML 1ML VIAL IV ONE (08:15)
[2022-04-25] MEDS ORDERED: METOCLOPRAMIDE INJ 10MG/2ML VIAL IV ONE (08:15)
[2022-04-25] MEDS ORDERED: ACETAMINOPHEN 500 MG TAB PO ONE (08:20)
[2022-04-25] MEDS: MIRALAX *UNIT DOSE* 17GM PACKET PO SCH ×3 (08:58→21:37)
[2022-04-25] MEDS: LEVEMIR (INSULIN DETEMIR) 1 UNITS/0.01ML SC SCH ×2 (08:59→21:37)
[2022-04-25] MEDS: ASPIRIN 81MG ENTERIC TABLET PO SCH (09:00)
[2022-04-25] MEDS: GABAPENTIN 300 MG CAP PO SCH ×3 (09:00→21:36)
[2022-04-25] MEDS: INSULIN LISPRO (NovoLOG) PER UNIT SC SCH ×4 (09:00→21:00)
[2022-04-25] MEDS: PARoxetine 20MG TABLET PO SCH (09:01)
[2022-04-25] MEDS: FERROUS SULFATE 325MG TAB PO SCH ×2 (09:01→21:36)
[2022-04-25] MEDS: CLOPIDOGREL 75 MG TAB PO SCH (09:02)
[2022-04-25] MEDS: CIPRODEX OTIC SUSP 7.5ML AD SCH ×2 (12:20→21:38)
[2022-04-25] MEDS ORDERED: VANCOMYCIN HCL 1,000 MG, VIAL MATE ADAPTER 1 EACH in NS 250 ML IV SCH (13:20)
[2022-04-25 14:00] VITALS: BP 111/46
[2022-04-25] MEDS ORDERED: VANCOMYCIN HCL 1,000 MG, VIAL MATE ADAPTER 1 EACH in NS 250 ML IV ONE ×2 (14:00→15:00)
[2022-04-25 15:00] VITALS: BP 75/44
[2022-04-25] MEDS ORDERED: NS 500 ML IV ONE (15:20)
[2022-04-25] MEDS ORDERED: MIDODRINE 5 MG TAB PO ONE (15:20)
[2022-04-25 16:55] VITALS: BP 138/74
[2022-04-25] MEDS: TRIAMCINOLONE ACET 0.1% OINTMENT 80GM TOP SCH (21:00)
[2022-04-25] MEDS: ATORVASTATIN 20 MG TAB PO SCH (21:36)
[2022-04-25] MEDS: allopurinoL 100 MG TAB PO SCH (21:37)
[2022-04-25 22:00] VITALS: BP 132/81
[2022-04-26 06:00] VITALS: BP 153/52
[2022-04-26] MEDS: HEPARIN SOD (PORCINE) 5000UNITS/ML 1ML VIAL/SYRINGE SC SCH ×3 (06:21→21:38)
[2022-04-26] MEDS: CIPRODEX OTIC SUSP 7.5ML AD SCH ×2 (09:11→21:37)
[2022-04-26] MEDS: GABAPENTIN 300 MG CAP PO SCH ×3 (09:12→21:33)
[2022-04-26] MEDS: CLOPIDOGREL 75 MG TAB PO SCH (09:12)
[2022-04-26] MEDS: ASPIRIN 81MG ENTERIC TABLET PO SCH (09:12)
[2022-04-26] MEDS: PARoxetine 20MG TABLET PO SCH (09:12)
[2022-04-26] MEDS: LEVEMIR (INSULIN DETEMIR) 1 UNITS/0.01ML SC SCH ×2 (09:13→21:37)
[2022-04-26] MEDS: MIRALAX *UNIT DOSE* 17GM PACKET PO SCH ×3 (09:13→21:00)
[2022-04-26] MEDS: FERROUS SULFATE 325MG TAB PO SCH ×2 (09:13→21:33)
[2022-04-26] MEDS: INSULIN LISPRO (NovoLOG) PER UNIT SC SCH ×4 (09:14→21:37)
[2022-04-26 09:22] LABS: BASO # 0.1 10^3/uL (0.0-0.2); BASO % 0.8 % (0.0-1.0); EOS # 0.6 10^3/uL (0.0-0.5); EOS % 9.8 % (0.0-3.0); HEMOGLOBIN 9.5 g/dl (12.0-15.5); LYMPH % 17.1 % (24.0-44.0); MEAN CORPUSCULAR HEMOGLOBIN 32.2 pg (27.0-33.0); MEAN CORPUSCULAR HGB CONC 31.7 g/dl (32.0-36.5); MEAN CORPUSCULAR VOLUME 101.7 fl (80.0-96.0); MONO # 0.5 10^3/uL (0.0-0.8); MONO % 7.8 % (2.0-8.0); NEUTROPHILS # 3.8 10^3/uL (1.5-8.5); NEUTROPHILS % 63.8 % (36.0-66.0); PLATELET COUNT, AUTOMATED 122 10^3/uL (150-450); RED BLOOD COUNT 2.95 10^6/uL (4.00-5.40); WHITE BLOOD COUNT 5.9 10^3/uL (4.0-10.0)
[2022-04-26] MEDS: TRIAMCINOLONE ACET 0.1% OINTMENT 80GM TOP SCH ×2 (09:34→21:38)
[2022-04-26 09:47] LABS: CALCIUM LEVEL 8.2 MG/DL (8.3-10.6); CREATININE FOR GFR 1.68 MG/DL (0.55-1.30); GLOMERULAR FILTRATION RATE 32.2 (>45); POTASSIUM SERUM 4.7 MMOL/L (3.5-5.1)
[2022-04-26] MEDS ORDERED: MOM 30ML SUSPENSION UDC PO ONE (12:35)
[2022-04-26] MEDS ORDERED: SENOKOT S TAB PO ONE (12:35)
[2022-04-26] MEDS ORDERED: BISACODYL 5MG TAB PO ONE (12:35)
[2022-04-26] MEDS ORDERED: FLEET ENEMA PR PRN (12:35)
[2022-04-26 14:00] VITALS: BP 108/56
[2022-04-26] MEDS ORDERED: VANCOMYCIN HCL 750 MG, VIAL MATE ADAPTER 1 EACH in D5W 250 ML IV SCH (14:00)
[2022-04-26] MEDS ORDERED: VANCOMYCIN HCL 500 MG in D5W MINI-BAG PLUS 100 ML IV SCH (15:00)
[2022-04-26 20:00] VITALS: BP 107/56
[2022-04-26] MEDS: allopurinoL 100 MG TAB PO SCH (21:34)
[2022-04-26] MEDS: ATORVASTATIN 20 MG TAB PO SCH (21:34)
[2022-04-26] MEDS: SENOKOT S TAB PO SCH (21:35)
[2022-04-27 06:00] VITALS: BP 116/54
[2022-04-27 06:15] LABS: BASO % 0.6 % (0.0-1.0); EOS # 0.5 10^3/uL (0.0-0.5); EOS % 10.2 % (0.0-3.0); HEMATOCRIT 28.8 % (36.0-47.0); HEMOGLOBIN 8.9 g/dl (12.0-15.5); LYMPH # 1.2 10^3/uL (1.5-5.0); LYMPH % 24.3 % (24.0-44.0); MEAN CORPUSCULAR HEMOGLOBIN 31.6 pg (27.0-33.0); MEAN CORPUSCULAR HGB CONC 30.9 g/dl (32.0-36.5); MEAN CORPUSCULAR VOLUME 102.1 fl (80.0-96.0); MONO # 0.5 10^3/uL (0.0-0.8); MONO % 9.4 % (2.0-8.0); NEUTROPHILS # 2.7 10^3/uL (1.5-8.5); NEUTROPHILS % 54.5 % (36.0-66.0); PLATELET COUNT, AUTOMATED 123 10^3/uL (150-450); RED BLOOD COUNT 2.82 10^6/uL (4.00-5.40)
[2022-04-27 06:39] LABS: CALCIUM LEVEL 8.3 MG/DL (8.3-10.6); CREATININE FOR GFR 1.59 MG/DL (0.55-1.30); GLOMERULAR FILTRATION RATE 34.3 (>45); POTASSIUM SERUM 3.9 MMOL/L (3.5-5.1)
[2022-04-27] MEDS: HEPARIN SOD (PORCINE) 5000UNITS/ML 1ML VIAL/SYRINGE SC SCH ×3 (06:45→21:17)
[2022-04-27] MEDS: MIRALAX *UNIT DOSE* 17GM PACKET PO SCH ×3 (08:45→20:25)
[2022-04-27] MEDS: FERROUS SULFATE 325MG TAB PO SCH ×2 (08:45→20:36)
[2022-04-27] MEDS: CIPRODEX OTIC SUSP 7.5ML AD SCH ×2 (08:45→20:37)
[2022-04-27] MEDS: PARoxetine 20MG TABLET PO SCH (08:46)
[2022-04-27] MEDS: GABAPENTIN 300 MG CAP PO SCH ×3 (08:46→20:36)
[2022-04-27] MEDS: CLOPIDOGREL 75 MG TAB PO SCH (08:47)
[2022-04-27] MEDS: ASPIRIN 81MG ENTERIC TABLET PO SCH (08:47)
[2022-04-27] MEDS: SENOKOT S TAB PO SCH ×2 (08:47→20:36)
[2022-04-27] MEDS: TRIAMCINOLONE ACET 0.1% OINTMENT 80GM TOP SCH ×2 (08:48→20:37)
[2022-04-27] MEDS: ceFAZolin SOD 2 GM in IV 1 EA IV SCH ×2 (09:06→17:53)
[2022-04-27] MEDS: LEVEMIR (INSULIN DETEMIR) 1 UNITS/0.01ML SC SCH ×2 (10:12→21:17)
[2022-04-27] MEDS: INSULIN LISPRO (NovoLOG) PER UNIT SC SCH ×4 (10:12→20:57)
[2022-04-27] MEDS: allopurinoL 100 MG TAB PO SCH (20:35)
[2022-04-27] MEDS: ATORVASTATIN 20 MG TAB PO SCH (20:36)
[2022-04-27 20:46] VITALS: BP 127/77
[2022-04-28] MEDS: ceFAZolin SOD 2 GM in IV 1 EA IV SCH ×4 (01:11→17:37)
[2022-04-28] MEDS: HEPARIN SOD (PORCINE) 5000UNITS/ML 1ML VIAL/SYRINGE SC SCH ×3 (05:11→19:59)
[2022-04-28 06:00] VITALS: BP 114/47
[2022-04-28 06:11] LABS: BASO % 0.7 % (0.0-1.0); EOS # 0.5 10^3/uL (0.0-0.5); EOS % 7.9 % (0.0-3.0); LYMPH # 1.4 10^3/uL (1.5-5.0); LYMPH % 24.8 % (24.0-44.0); MEAN CORPUSCULAR HEMOGLOBIN 32.6 pg (27.0-33.0); MEAN CORPUSCULAR HGB CONC 32.1 g/dl (32.0-36.5); MEAN CORPUSCULAR VOLUME 101.4 fl (80.0-96.0); MONO # 0.5 10^3/uL (0.0-0.8); MONO % 9.1 % (2.0-8.0); NEUTROPHILS # 3.3 10^3/uL (1.5-8.5); NEUTROPHILS % 56.6 % (36.0-66.0); PLATELET COUNT, AUTOMATED 125 10^3/uL (150-450); RED BLOOD COUNT 2.76 10^6/uL (4.00-5.40); WHITE BLOOD COUNT 5.8 10^3/uL (4.0-10.0)
[2022-04-28 06:35] LABS: CALCIUM LEVEL 8.6 MG/DL (8.3-10.6); CREATININE FOR GFR 1.56 MG/DL (0.55-1.30); POTASSIUM SERUM 4.1 MMOL/L (3.5-5.1)
[2022-04-28] MEDS: MIRALAX *UNIT DOSE* 17GM PACKET PO SCH ×3 (09:00→19:58)
[2022-04-28] MEDS: ASPIRIN 81MG ENTERIC TABLET PO SCH (09:17)
[2022-04-28] MEDS: LEVEMIR (INSULIN DETEMIR) 1 UNITS/0.01ML SC SCH ×2 (09:17→21:30)
[2022-04-28] MEDS: INSULIN LISPRO (NovoLOG) PER UNIT SC SCH ×4 (09:17→21:00)
[2022-04-28] MEDS: CLOPIDOGREL 75 MG TAB PO SCH (09:18)
[2022-04-28] MEDS: GABAPENTIN 300 MG CAP PO SCH ×3 (09:18→20:00)
[2022-04-28] MEDS: PARoxetine 20MG TABLET PO SCH (09:18)
[2022-04-28] MEDS: SENOKOT S TAB PO SCH ×2 (09:18→19:58)
[2022-04-28] MEDS: FERROUS SULFATE 325MG TAB PO SCH ×2 (09:18→20:00)
[2022-04-28] MEDS: CIPRODEX OTIC SUSP 7.5ML AD SCH ×2 (09:19→20:01)
[2022-04-28] MEDS: TRIAMCINOLONE ACET 0.1% OINTMENT 80GM TOP SCH ×2 (09:19→20:01)
[2022-04-28] MEDS ORDERED: DOXYCYCLINE HYCLATE 100MG TABLET PO ONE (09:45)
[2022-04-28] MEDS ORDERED: CEPHALEXIN 500 MG CAP PO ONE (11:00)
[2022-04-28 14:00] VITALS: BP 109/71
[2022-04-28] MEDS ORDERED: LIDOCAINE 1% MDV 20ML VIAL As Ordered ONE (16:05)
[2022-04-28 17:31] VITALS: BP 128/79
[2022-04-28] MEDS: SODIUM CHLORIDE 0.9% INJ 10 ML SYR IV SCH ×2 (17:38→17:52)
[2022-04-28] MEDS ORDERED: SODIUM CHLORIDE 0.9% INJ 10 ML SYR IV PRN (18:00)
[2022-04-28] MEDS: ATORVASTATIN 20 MG TAB PO SCH (20:00)
[2022-04-28] MEDS: allopurinoL 100 MG TAB PO SCH (20:00)
[2022-04-28 21:20] VITALS: BP 101/57
[2022-04-29] VITALS (10 sets, daily range): BP systolic 106–126; BP diastolic 59–72
[2022-04-29] MEDS: ceFAZolin SOD 2 GM in IV 1 EA IV SCH ×3 (01:05→17:09)
[2022-04-29] MEDS: SODIUM CHLORIDE 0.9% INJ 10 ML SYR IV PRN ×2 (02:41→10:43)
[2022-04-29] MEDS: HEPARIN SOD (PORCINE) 5000UNITS/ML 1ML VIAL/SYRINGE SC SCH ×3 (06:00→21:18)
[2022-04-29] MEDS: SODIUM CHLORIDE 0.9% INJ 10 ML SYR IV SCH ×4 (06:05→17:13)
[2022-04-29 06:07] LABS: BASO % 0.7 % (0.0-1.0); EOS # 0.3 10^3/uL (0.0-0.5); EOS % 5.6 % (0.0-3.0); HEMATOCRIT 28.9 % (36.0-47.0); HEMOGLOBIN 9.1 g/dl (12.0-15.5); MEAN CORPUSCULAR HEMOGLOBIN 31.9 pg (27.0-33.0); MEAN CORPUSCULAR HGB CONC 31.5 g/dl (32.0-36.5); MEAN CORPUSCULAR VOLUME 101.4 fl (80.0-96.0); MONO # 0.6 10^3/uL (0.0-0.8); MONO % 9.4 % (2.0-8.0); NEUTROPHILS % 66.5 % (36.0-66.0); PLATELET COUNT, AUTOMATED 125 10^3/uL (150-450); RED BLOOD COUNT 2.85 10^6/uL (4.00-5.40); WHITE BLOOD COUNT 5.9 10^3/uL (4.0-10.0)
[2022-04-29 06:41] LABS: CALCIUM LEVEL 8.7 MG/DL (8.3-10.6); CREATININE FOR GFR 1.45 MG/DL (0.55-1.30); GLOMERULAR FILTRATION RATE 38.1 (>45); POTASSIUM SERUM 4.2 MMOL/L (3.5-5.1)
[2022-04-29] MEDS: INSULIN LISPRO (NovoLOG) PER UNIT SC SCH ×4 (07:30→21:00)
[2022-04-29] MEDS: LEVEMIR (INSULIN DETEMIR) 1 UNITS/0.01ML SC SCH ×2 (09:00→21:15)
[2022-04-29] MEDS: MIRALAX *UNIT DOSE* 17GM PACKET PO SCH ×3 (09:00→21:00)
[2022-04-29] MEDS: CLOPIDOGREL 75 MG TAB PO SCH (09:00)
[2022-04-29] MEDS: SENOKOT S TAB PO SCH ×2 (09:00→21:20)
[2022-04-29] MEDS: ASPIRIN 81MG ENTERIC TABLET PO SCH (09:00)
[2022-04-29] MEDS: PARoxetine 20MG TABLET PO SCH (09:37)
[2022-04-29] MEDS: GABAPENTIN 300 MG CAP PO SCH ×3 (09:40→21:19)
[2022-04-29] MEDS: FERROUS SULFATE 325MG TAB PO SCH ×2 (09:40→21:19)
[2022-04-29] MEDS: CIPRODEX OTIC SUSP 7.5ML AD SCH ×2 (09:41→23:09)
[2022-04-29] MEDS: TRIAMCINOLONE ACET 0.1% OINTMENT 80GM TOP SCH ×2 (09:42→23:10)
[2022-04-29] MEDS ORDERED: ONDANSETRON 4MG 2ML VIAL As Ordered ONE (11:35)
[2022-04-29] MEDS ORDERED: propofoL 200 MG/20 ML VIAL As Ordered ONE ×2 (11:35→11:44)
[2022-04-29] MEDS ORDERED: LIDOCAINE 2% 100MG/5ML SDV (FOR ANES.) As Ordered ONE (11:35)
[2022-04-29] MEDS ORDERED: MIDAZOLAM INJ 2MG/2ML VIAL As Ordered ONE (11:47)
[2022-04-29] MEDS ORDERED: fentaNYL 100 MCG/2 ML INJECTION As Ordered ONE (11:47)
[2022-04-29] MEDS ORDERED: LIDOCAINE 1% SDV 30ML VIAL As Ordered ONE (12:26)
[2022-04-29] MEDS: allopurinoL 100 MG TAB PO SCH (21:20)
[2022-04-29] MEDS: ATORVASTATIN 20 MG TAB PO SCH (21:20)
[2022-04-30] MEDS: ceFAZolin SOD 2 GM in IV 1 EA IV SCH ×3 (01:47→16:40)
[2022-04-30 02:19] VITALS: BP 125/64
[2022-04-30] MEDS: HEPARIN SOD (PORCINE) 5000UNITS/ML 1ML VIAL/SYRINGE SC SCH ×3 (05:25→21:51)
[2022-04-30] MEDS: SODIUM CHLORIDE 0.9% INJ 10 ML SYR IV SCH ×4 (05:27→17:56)
[2022-04-30 06:56] LABS: BASO % 0.7 % (0.0-1.0); EOS # 0.4 10^3/uL (0.0-0.5); EOS % 7.4 % (0.0-3.0); HEMOGLOBIN 8.8 g/dl (12.0-15.5); LYMPH # 1.1 10^3/uL (1.5-5.0); LYMPH % 18.6 % (24.0-44.0); MEAN CORPUSCULAR HGB CONC 30.3 g/dl (32.0-36.5); MEAN CORPUSCULAR VOLUME 105.5 fl (80.0-96.0); MONO # 0.5 10^3/uL (0.0-0.8); MONO % 9.2 % (2.0-8.0); NEUTROPHILS # 3.6 10^3/uL (1.5-8.5); PLATELET COUNT, AUTOMATED 121 10^3/uL (150-450); RED BLOOD COUNT 2.75 10^6/uL (4.00-5.40); WHITE BLOOD COUNT 5.7 10^3/uL (4.0-10.0)
[2022-04-30 07:23] LABS: CALCIUM LEVEL 8.3 MG/DL (8.3-10.6); CREATININE FOR GFR 1.5 MG/DL (0.55-1.30); GLOMERULAR FILTRATION RATE 36.7 (>45); POTASSIUM SERUM 4.5 MMOL/L (3.5-5.1)
[2022-04-30] MEDS: TRIAMCINOLONE ACET 0.1% OINTMENT 80GM TOP SCH ×2 (09:00→21:51)
[2022-04-30] MEDS: MIRALAX *UNIT DOSE* 17GM PACKET PO SCH ×3 (09:00→21:00)
[2022-04-30] MEDS: ASPIRIN 81MG ENTERIC TABLET PO SCH (09:02)
[2022-04-30] MEDS: SENOKOT S TAB PO SCH ×2 (09:02→21:49)
[2022-04-30] MEDS: GABAPENTIN 300 MG CAP PO SCH ×3 (09:02→21:50)
[2022-04-30] MEDS: FERROUS SULFATE 325MG TAB PO SCH ×2 (09:02→21:50)
[2022-04-30] MEDS: CLOPIDOGREL 75 MG TAB PO SCH (09:02)
[2022-04-30] MEDS: INSULIN LISPRO (NovoLOG) PER UNIT SC SCH ×4 (09:03→21:00)
[2022-04-30] MEDS: LEVEMIR (INSULIN DETEMIR) 1 UNITS/0.01ML SC SCH ×2 (09:16→21:51)
[2022-04-30] MEDS: PARoxetine 20MG TABLET PO SCH (09:17)
[2022-04-30 10:00] VITALS: BP 95/54
[2022-04-30 14:00] VITALS: BP 95/65
[2022-04-30] MEDS: ACETAMINOPHEN TAB 650MG DOSE (2X325MG) PO PRN (17:44)
[2022-04-30 20:00] VITALS: BP 119/73
[2022-04-30] MEDS: allopurinoL 100 MG TAB PO SCH (21:50)
[2022-04-30] MEDS: ATORVASTATIN 20 MG TAB PO SCH (21:50)
[2022-04-30] MEDS: oxyCODONE 5MG TAB PO PRN (21:52)
[2022-05-01] MEDS: ceFAZolin SOD 2 GM in IV 1 EA IV SCH ×3 (00:32→16:37)
[2022-05-01 06:00] VITALS: BP 109/73
[2022-05-01] MEDS: HEPARIN SOD (PORCINE) 5000UNITS/ML 1ML VIAL/SYRINGE SC SCH ×3 (06:00→20:08)
[2022-05-01] MEDS: SODIUM CHLORIDE 0.9% INJ 10 ML SYR IV SCH ×4 (06:21→18:14)
[2022-05-01 07:40] LABS: BASO % 0.7 % (0.0-1.0); EOS # 0.4 10^3/uL (0.0-0.5); EOS % 6.6 % (0.0-3.0); HEMATOCRIT 27.8 % (36.0-47.0); HEMOGLOBIN 8.7 g/dl (12.0-15.5); LYMPH # 1.2 10^3/uL (1.5-5.0); LYMPH % 20.2 % (24.0-44.0); MEAN CORPUSCULAR HGB CONC 31.3 g/dl (32.0-36.5); MEAN CORPUSCULAR VOLUME 102.2 fl (80.0-96.0); MONO # 0.6 10^3/uL (0.0-0.8); MONO % 9.3 % (2.0-8.0); NEUTROPHILS # 3.8 10^3/uL (1.5-8.5); NEUTROPHILS % 62.5 % (36.0-66.0); PLATELET COUNT, AUTOMATED 109 10^3/uL (150-450); RED BLOOD COUNT 2.72 10^6/uL (4.00-5.40)
[2022-05-01 08:05] LABS: CALCIUM LEVEL 8.6 MG/DL (8.3-10.6); CREATININE FOR GFR 1.43 MG/DL (0.55-1.30); GLOMERULAR FILTRATION RATE 38.7 (>45); POTASSIUM SERUM 4.2 MMOL/L (3.5-5.1)
[2022-05-01] MEDS: MIRALAX *UNIT DOSE* 17GM PACKET PO SCH ×3 (09:00→20:03)
[2022-05-01] MEDS: LEVEMIR (INSULIN DETEMIR) 1 UNITS/0.01ML SC SCH ×2 (09:06→20:05)
[2022-05-01] MEDS: ASPIRIN 81MG ENTERIC TABLET PO SCH (09:07)
[2022-05-01] MEDS: INSULIN LISPRO (NovoLOG) PER UNIT SC SCH ×4 (09:07→20:04)
[2022-05-01] MEDS: GABAPENTIN 300 MG CAP PO SCH ×3 (09:08→20:04)
[2022-05-01] MEDS: PARoxetine 20MG TABLET PO SCH (09:08)
[2022-05-01] MEDS: CLOPIDOGREL 75 MG TAB PO SCH (09:08)
[2022-05-01] MEDS: FERROUS SULFATE 325MG TAB PO SCH ×2 (09:08→20:04)
[2022-05-01] MEDS: SENOKOT S TAB PO SCH ×2 (09:08→20:03)
[2022-05-01] MEDS: TRIAMCINOLONE ACET 0.1% OINTMENT 80GM TOP SCH ×2 (09:10→20:08)
[2022-05-01 14:00] VITALS: BP 112/74
[2022-05-01 15:30] VITALS: BP 110/70
[2022-05-01 20:00] VITALS: BP 104/56
[2022-05-01] MEDS: ATORVASTATIN 20 MG TAB PO SCH (20:03)
[2022-05-01] MEDS: allopurinoL 100 MG TAB PO SCH (20:04)
[2022-05-01] MEDS: oxyCODONE 5MG TAB PO PRN (20:10)
[2022-05-02] MEDS: ceFAZolin SOD 2 GM in IV 1 EA IV SCH ×2 (01:16→08:31)
[2022-05-02] MEDS: ACETAMINOPHEN TAB 650MG DOSE (2X325MG) PO PRN ×2 (02:26→21:05)
[2022-05-02 05:45] VITALS: BP 108/60
[2022-05-02] MEDS: SODIUM CHLORIDE 0.9% INJ 10 ML SYR IV SCH ×4 (05:45→17:07)
[2022-05-02] MEDS: HEPARIN SOD (PORCINE) 5000UNITS/ML 1ML VIAL/SYRINGE SC SCH ×3 (05:46→21:05)
[2022-05-02] MEDS: CEPHALEXIN 500 MG CAP PO SCH ×3 (06:00→21:04)
[2022-05-02 07:01] LABS: BASO # 0.1 10^3/uL (0.0-0.2); BASO % 0.8 % (0.0-1.0); EOS # 0.4 10^3/uL (0.0-0.5); EOS % 5.8 % (0.0-3.0); HEMATOCRIT 25.7 % (36.0-47.0); LYMPH # 1.3 10^3/uL (1.5-5.0); LYMPH % 21.6 % (24.0-44.0); MEAN CORPUSCULAR HEMOGLOBIN 32.1 pg (27.0-33.0); MEAN CORPUSCULAR HGB CONC 31.1 g/dl (32.0-36.5); MEAN CORPUSCULAR VOLUME 103.2 fl (80.0-96.0); MONO # 0.6 10^3/uL (0.0-0.8); MONO % 9.7 % (2.0-8.0); NEUTROPHILS # 3.8 10^3/uL (1.5-8.5); NEUTROPHILS % 61.3 % (36.0-66.0); PLATELET COUNT, AUTOMATED 104 10^3/uL (150-450); RED BLOOD COUNT 2.49 10^6/uL (4.00-5.40); WHITE BLOOD COUNT 6.2 10^3/uL (4.0-10.0)
[2022-05-02 07:50] LABS: CALCIUM LEVEL 8.2 MG/DL (8.3-10.6); CREATININE FOR GFR 1.57 MG/DL (0.55-1.30); GLOMERULAR FILTRATION RATE 34.8 (>45); POTASSIUM SERUM 4.3 MMOL/L (3.5-5.1)
[2022-05-02] MEDS: LEVEMIR (INSULIN DETEMIR) 1 UNITS/0.01ML SC SCH ×2 (08:31→20:45)
[2022-05-02] MEDS: MIRALAX *UNIT DOSE* 17GM PACKET PO SCH ×4 (08:31→21:00)
[2022-05-02] MEDS: INSULIN LISPRO (NovoLOG) PER UNIT SC SCH ×4 (08:31→20:45)
[2022-05-02] MEDS: PARoxetine 20MG TABLET PO SCH (08:32)
[2022-05-02] MEDS: GABAPENTIN 300 MG CAP PO SCH ×3 (08:32→21:04)
[2022-05-02] MEDS: CLOPIDOGREL 75 MG TAB PO SCH (08:32)
[2022-05-02] MEDS: FERROUS SULFATE 325MG TAB PO SCH ×2 (08:32→21:05)
[2022-05-02] MEDS: ASPIRIN 81MG ENTERIC TABLET PO SCH (08:32)
[2022-05-02] MEDS: TRIAMCINOLONE ACET 0.1% OINTMENT 80GM TOP SCH ×2 (08:33→21:03)
[2022-05-02] MEDS: SENOKOT S TAB PO SCH ×2 (08:33→21:04)
[2022-05-02 10:07] LABS: C REACTIVE PROTEIN QUANTITATIV 3.7 MG/DL (<1.0)
[2022-05-02] MEDS ORDERED: FUROSEMIDE 40 MG TAB PO SCH (13:10)
[2022-05-02] MEDS: oxyCODONE 5MG TAB PO PRN ×2 (14:59→23:22)
[2022-05-02 15:30] VITALS: BP 140/58
[2022-05-02] MEDS: FUROSEMIDE 100MG/10ML VIAL IV SCH (16:36)
[2022-05-02 17:33] LABS: CK-MB VALUE MASS < 1.0 NG/ML (<3.6)
[2022-05-02 17:37] LABS: CPK CREATINE PHOSPHOKINASE 33 U/L (34-145); MB/CK RELATIVE INDEX 3.03 (< OR =4)
[2022-05-02 20:00] VITALS: BP 140/70
[2022-05-02] MEDS: ATORVASTATIN 20 MG TAB PO SCH (21:03)
[2022-05-02] MEDS: allopurinoL 100 MG TAB PO SCH (21:04)
[2022-05-03 00:33] LABS: CK-MB VALUE MASS < 1.0 NG/ML (<3.6); CPK CREATINE PHOSPHOKINASE 39 U/L (34-145); MB/CK RELATIVE INDEX 2.56 (< OR =4)
[2022-05-03] MEDS: HEPARIN SOD (PORCINE) 5000UNITS/ML 1ML VIAL/SYRINGE SC SCH ×3 (05:09→21:01)
[2022-05-03] MEDS: CEPHALEXIN 500 MG CAP PO SCH ×3 (05:31→21:16)
[2022-05-03] MEDS: SODIUM CHLORIDE 0.9% INJ 10 ML SYR IV SCH ×4 (05:32→17:14)
[2022-05-03 06:00] VITALS: BP 135/80
[2022-05-03 07:30] LABS: HEMOGLOBIN 7.9 g/dl (12.0-15.5); MEAN CORPUSCULAR HEMOGLOBIN 32.5 pg (27.0-33.0); MEAN CORPUSCULAR HGB CONC 31.6 g/dl (32.0-36.5); MEAN CORPUSCULAR VOLUME 102.9 fl (80.0-96.0); PLATELET COUNT, AUTOMATED 108 10^3/uL (150-450); RED BLOOD COUNT 2.43 10^6/uL (4.00-5.40); WHITE BLOOD COUNT 5.1 10^3/uL (4.0-10.0)
[2022-05-03] MEDS ORDERED: MAG SULF 1GM/100ML (MAG RUN) 1 GM in IV 1 EA IV ONE (08:00)
[2022-05-03 08:04] LABS: BLOOD UREA NITROGEN 32 MG/DL (9-23); CALCIUM LEVEL 8.4 MG/DL (8.3-10.6); CARBON DIOXIDE LEVEL 27 MMOL/L (20-31); CHLORIDE LEVEL 108 MMOL/L (98-107); CK-MB VALUE MASS < 1.0 NG/ML (<3.6); CPK CREATINE PHOSPHOKINASE 27 U/L (34-145); CREATININE FOR GFR 1.58 MG/DL (0.55-1.30); GLOMERULAR FILTRATION RATE 34.5 (>45); GLUCOSE, FASTING 146 MG/DL (74-106); MAGNESIUM LEVEL 1.5 MG/DL (1.8-2.4); POTASSIUM SERUM 3.8 MMOL/L (3.5-5.1); SODIUM LEVEL 139 MMOL/L (136-145)
[2022-05-03] MEDS: MIRALAX *UNIT DOSE* 17GM PACKET PO SCH ×3 (09:00→21:00)
[2022-05-03] MEDS: FUROSEMIDE 100MG/10ML VIAL IV SCH (09:00)
[2022-05-03] MEDS: LEVEMIR (INSULIN DETEMIR) 1 UNITS/0.01ML SC SCH ×2 (09:40→21:15)
[2022-05-03] MEDS: INSULIN LISPRO (NovoLOG) PER UNIT SC SCH ×4 (09:40→21:00)
[2022-05-03] MEDS: ASPIRIN 81MG ENTERIC TABLET PO SCH (09:41)
[2022-05-03] MEDS: PARoxetine 20MG TABLET PO SCH (09:42)
[2022-05-03] MEDS: FERROUS SULFATE 325MG TAB PO SCH ×2 (09:42→21:16)
[2022-05-03] MEDS: GABAPENTIN 300 MG CAP PO SCH ×3 (09:42→21:15)
[2022-05-03] MEDS: CLOPIDOGREL 75 MG TAB PO SCH (09:42)
[2022-05-03] MEDS: SENOKOT S TAB PO SCH ×2 (09:42→21:16)
[2022-05-03] MEDS: TRIAMCINOLONE ACET 0.1% OINTMENT 80GM TOP SCH ×2 (09:46→21:17)
[2022-05-03 14:00] VITALS: BP_SYST 130
[2022-05-03] MEDS: ACETAMINOPHEN TAB 650MG DOSE (2X325MG) PO PRN (15:27)
[2022-05-03] MEDS: FUROSEMIDE 40 MG TAB PO SCH (17:14)
[2022-05-03 20:00] VITALS: BP 130/80
[2022-05-03] MEDS: allopurinoL 100 MG TAB PO SCH (21:15)
[2022-05-03] MEDS: oxyCODONE 5MG TAB PO PRN (21:16)
[2022-05-03] MEDS: ATORVASTATIN 20 MG TAB PO SCH (21:16)
[2022-05-04] VITALS (12 sets, daily range): BP systolic 105–142; BP diastolic 55–80
[2022-05-04] MEDS: HEPARIN SOD (PORCINE) 5000UNITS/ML 1ML VIAL/SYRINGE SC SCH ×3 (05:11→21:48)
[2022-05-04] MEDS: SODIUM CHLORIDE 0.9% INJ 10 ML SYR IV SCH ×4 (05:15→17:03)
[2022-05-04] MEDS: CEPHALEXIN 500 MG CAP PO SCH ×3 (05:15→21:49)
[2022-05-04 06:19] LABS: HEMATOCRIT 24.8 % (36.0-47.0); HEMOGLOBIN 7.7 g/dl (12.0-15.5); MEAN CORPUSCULAR HEMOGLOBIN 31.8 pg (27.0-33.0); MEAN CORPUSCULAR VOLUME 102.5 fl (80.0-96.0); PLATELET COUNT, AUTOMATED 111 10^3/uL (150-450); RED BLOOD COUNT 2.42 10^6/uL (4.00-5.40); WHITE BLOOD COUNT 6.4 10^3/uL (4.0-10.0)
[2022-05-04 06:46] LABS: CALCIUM LEVEL 8.6 MG/DL (8.3-10.6); CREATININE FOR GFR 1.46 MG/DL (0.55-1.30); GLOMERULAR FILTRATION RATE 37.8 (>45); MAGNESIUM LEVEL 1.6 MG/DL (1.8-2.4); POTASSIUM SERUM 3.8 MMOL/L (3.5-5.1)
[2022-05-04] MEDS: LEVEMIR (INSULIN DETEMIR) 1 UNITS/0.01ML SC SCH ×2 (08:08→20:47)
[2022-05-04] MEDS: PARoxetine 20MG TABLET PO SCH (08:56)
[2022-05-04] MEDS: FUROSEMIDE 40 MG TAB PO SCH ×2 (08:56→17:03)
[2022-05-04] MEDS: FERROUS SULFATE 325MG TAB PO SCH ×2 (08:56→20:27)
[2022-05-04] MEDS: CLOPIDOGREL 75 MG TAB PO SCH (08:56)
[2022-05-04] MEDS: ASPIRIN 81MG ENTERIC TABLET PO SCH (08:56)
[2022-05-04] MEDS: GABAPENTIN 300 MG CAP PO SCH ×3 (08:56→20:27)
[2022-05-04] MEDS: TRIAMCINOLONE ACET 0.1% OINTMENT 80GM TOP SCH ×2 (08:57→20:48)
[2022-05-04] MEDS: INSULIN LISPRO (NovoLOG) PER UNIT SC SCH ×4 (08:57→20:46)
[2022-05-04] MEDS: SENOKOT S TAB PO SCH ×2 (08:57→20:27)
[2022-05-04] MEDS: MIRALAX *UNIT DOSE* 17GM PACKET PO SCH ×3 (08:57→20:26)
[2022-05-04] MEDS ORDERED: MAG SULF 1GM/100ML (MAG RUN) 1 GM in IV 1 EA IV ONE (11:30)
[2022-05-04] MEDS ORDERED: FUROSEMIDE 100MG/10ML VIAL IV ONE ×2 (11:30→19:00)
[2022-05-04] MEDS: ATORVASTATIN 20 MG TAB PO SCH (20:26)
[2022-05-04] MEDS: allopurinoL 100 MG TAB PO SCH (20:27)
[2022-05-04] MEDS: oxyCODONE 5MG TAB PO PRN (20:46)
[2022-05-05 00:25] VITALS: BP 118/64
[2022-05-05 01:42] VITALS: BP 116/60
[2022-05-05] MEDS: SODIUM CHLORIDE 0.9% INJ 10 ML SYR IV SCH ×4 (05:47→17:07)
[2022-05-05] MEDS: HEPARIN SOD (PORCINE) 5000UNITS/ML 1ML VIAL/SYRINGE SC SCH ×3 (05:47→19:25)
[2022-05-05] MEDS: CEPHALEXIN 500 MG CAP PO SCH ×3 (05:47→21:00)
[2022-05-05 06:00] VITALS: BP 124/66
[2022-05-05 06:30] LABS: HEMATOCRIT 32.6 % (36.0-47.0); MEAN CORPUSCULAR HEMOGLOBIN 31.3 pg (27.0-33.0); MEAN CORPUSCULAR HGB CONC 31.6 g/dl (32.0-36.5); MEAN CORPUSCULAR VOLUME 99.1 fl (80.0-96.0); PLATELET COUNT, AUTOMATED 119 10^3/uL (150-450); RED BLOOD COUNT 3.29 10^6/uL (4.00-5.40); WHITE BLOOD COUNT 6.3 10^3/uL (4.0-10.0)
[2022-05-05 06:39] LABS: HEMOGLOBIN 10.3 g/dl (12.0-15.5)
[2022-05-05 06:57] LABS: CALCIUM LEVEL 8.8 MG/DL (8.3-10.6); CREATININE FOR GFR 1.46 MG/DL (0.55-1.30); GLOMERULAR FILTRATION RATE 37.8 (>45); MAGNESIUM LEVEL 1.6 MG/DL (1.8-2.4)
[2022-05-05] MEDS: INSULIN LISPRO (NovoLOG) PER UNIT SC SCH ×4 (08:52→20:29)
[2022-05-05] MEDS: LEVEMIR (INSULIN DETEMIR) 1 UNITS/0.01ML SC SCH ×2 (08:52→20:47)
[2022-05-05] MEDS: CLOPIDOGREL 75 MG TAB PO SCH (08:53)
[2022-05-05] MEDS: GABAPENTIN 300 MG CAP PO SCH ×3 (08:53→20:50)
[2022-05-05] MEDS: ASPIRIN 81MG ENTERIC TABLET PO SCH (08:53)
[2022-05-05] MEDS: FERROUS SULFATE 325MG TAB PO SCH ×2 (08:53→20:49)
[2022-05-05] MEDS: FUROSEMIDE 40 MG TAB PO SCH ×2 (08:53→16:20)
[2022-05-05] MEDS: TRIAMCINOLONE ACET 0.1% OINTMENT 80GM TOP SCH ×2 (08:54→20:45)
[2022-05-05] MEDS: SENOKOT S TAB PO SCH ×2 (08:54→20:50)
[2022-05-05] MEDS: PARoxetine 20MG TABLET PO SCH (08:54)
[2022-05-05] MEDS: MIRALAX *UNIT DOSE* 17GM PACKET PO SCH ×3 (08:55→20:50)
[2022-05-05 14:00] VITALS: BP 122/74
[2022-05-05 20:00] VITALS: BP 124/84
[2022-05-05] MEDS: ATORVASTATIN 20 MG TAB PO SCH (20:49)
[2022-05-05] MEDS: allopurinoL 100 MG TAB PO SCH (20:50)
[2022-05-05] MEDS: oxyCODONE 5MG TAB PO PRN (20:56)
[2022-05-06] MEDS: CEPHALEXIN 500 MG CAP PO SCH ×3 (05:28→21:13)
[2022-05-06] MEDS: SODIUM CHLORIDE 0.9% INJ 10 ML SYR IV SCH ×4 (05:29→15:05)
[2022-05-06 06:00] VITALS: BP 118/78
[2022-05-06 06:44] LABS: HEMATOCRIT 33.7 % (36.0-47.0); HEMOGLOBIN 10.8 g/dl (12.0-15.5); MEAN CORPUSCULAR HEMOGLOBIN 31.2 pg (27.0-33.0); MEAN CORPUSCULAR VOLUME 97.4 fl (80.0-96.0); PLATELET COUNT, AUTOMATED 121 10^3/uL (150-450); RED BLOOD COUNT 3.46 10^6/uL (4.00-5.40); WHITE BLOOD COUNT 6.6 10^3/uL (4.0-10.0)
[2022-05-06] MEDS: HEPARIN SOD (PORCINE) 5000UNITS/ML 1ML VIAL/SYRINGE SC SCH ×3 (06:53→21:14)
[2022-05-06 07:08] LABS: CREATININE FOR GFR 1.35 MG/DL (0.55-1.30); GLOMERULAR FILTRATION RATE 41.4 (>45); MAGNESIUM LEVEL 1.6 MG/DL (1.8-2.4); POTASSIUM SERUM 3.3 MMOL/L (3.5-5.1)
[2022-05-06] MEDS: INSULIN LISPRO (NovoLOG) PER UNIT SC SCH ×5 (07:30→21:00)
[2022-05-06] MEDS: LEVEMIR (INSULIN DETEMIR) 1 UNITS/0.01ML SC SCH ×2 (08:55→21:17)
[2022-05-06] MEDS: MIRALAX *UNIT DOSE* 17GM PACKET PO SCH ×3 (09:00→19:19)
[2022-05-06] MEDS: TRIAMCINOLONE ACET 0.1% OINTMENT 80GM TOP SCH ×2 (09:00→19:29)
[2022-05-06] MEDS: GABAPENTIN 300 MG CAP PO SCH ×3 (09:38→19:27)
[2022-05-06] MEDS: CLOPIDOGREL 75 MG TAB PO SCH (09:38)
[2022-05-06] MEDS: FERROUS SULFATE 325MG TAB PO SCH ×2 (09:38→19:28)
[2022-05-06] MEDS: PARoxetine 20MG TABLET PO SCH (09:38)
[2022-05-06] MEDS: ASPIRIN 81MG ENTERIC TABLET PO SCH (09:38)
[2022-05-06] MEDS: SENOKOT S TAB PO SCH ×2 (09:39→19:29)
[2022-05-06] MEDS: FUROSEMIDE 40 MG TAB PO SCH ×2 (09:40→17:04)
[2022-05-06 14:00] VITALS: BP 110/78
[2022-05-06] MEDS: ACETAMINOPHEN TAB 650MG DOSE (2X325MG) PO PRN (17:07)
[2022-05-06] MEDS ORDERED: POTASSIUM CHLORIDE 10MEQ SR TABLET PO ONE (19:00)
[2022-05-06] MEDS: ATORVASTATIN 20 MG TAB PO SCH (19:28)
[2022-05-06] MEDS: allopurinoL 100 MG TAB PO SCH (19:29)
[2022-05-06 20:00] VITALS: BP 122/86
[2022-05-06] MEDS: oxyCODONE 5MG TAB PO PRN (21:13)
[2022-05-07] MEDS: CEPHALEXIN 500 MG CAP PO SCH ×3 (05:30→20:45)
[2022-05-07] MEDS: SODIUM CHLORIDE 0.9% INJ 10 ML SYR IV SCH ×4 (05:31→18:21)
[2022-05-07] MEDS: oxyCODONE 5MG TAB PO PRN ×2 (05:32→20:45)
[2022-05-07 06:00] VITALS: BP 118/58
[2022-05-07] MEDS: HEPARIN SOD (PORCINE) 5000UNITS/ML 1ML VIAL/SYRINGE SC SCH ×3 (06:00→20:14)
[2022-05-07 06:56] LABS: HEMATOCRIT 32.3 % (36.0-47.0); HEMOGLOBIN 10.2 g/dl (12.0-15.5); MEAN CORPUSCULAR HEMOGLOBIN 31.4 pg (27.0-33.0); MEAN CORPUSCULAR HGB CONC 31.6 g/dl (32.0-36.5); MEAN CORPUSCULAR VOLUME 99.4 fl (80.0-96.0); PLATELET COUNT, AUTOMATED 118 10^3/uL (150-450); RED BLOOD COUNT 3.25 10^6/uL (4.00-5.40); WHITE BLOOD COUNT 6.3 10^3/uL (4.0-10.0)
[2022-05-07 07:17] LABS: CALCIUM LEVEL 8.2 MG/DL (8.3-10.6); CREATININE FOR GFR 1.36 MG/DL (0.55-1.30); MAGNESIUM LEVEL 1.4 MG/DL (1.8-2.4); POTASSIUM SERUM 3.7 MMOL/L (3.5-5.1)
[2022-05-07] MEDS: INSULIN LISPRO (NovoLOG) PER UNIT SC SCH ×4 (08:08→20:41)
[2022-05-07] MEDS: LEVEMIR (INSULIN DETEMIR) 1 UNITS/0.01ML SC SCH ×2 (08:09→20:41)
[2022-05-07] MEDS: FERROUS SULFATE 325MG TAB PO SCH ×2 (08:47→20:44)
[2022-05-07] MEDS: GABAPENTIN 300 MG CAP PO SCH ×3 (08:47→20:44)
[2022-05-07] MEDS: CLOPIDOGREL 75 MG TAB PO SCH (08:48)
[2022-05-07] MEDS: MAGNESIUM OXIDE 400MG TAB (MAG-OX) PO SCH ×3 (08:48→20:44)
[2022-05-07] MEDS: SENOKOT S TAB PO SCH ×3 (08:48→20:44)
[2022-05-07] MEDS: ASPIRIN 81MG ENTERIC TABLET PO SCH (08:49)
[2022-05-07] MEDS: PARoxetine 20MG TABLET PO SCH (08:49)
[2022-05-07] MEDS: FUROSEMIDE 40 MG TAB PO SCH ×2 (08:49→17:55)
[2022-05-07] MEDS: TRIAMCINOLONE ACET 0.1% OINTMENT 80GM TOP SCH ×2 (08:50→20:45)
[2022-05-07] MEDS: MIRALAX *UNIT DOSE* 17GM PACKET PO SCH ×3 (08:51→20:14)
[2022-05-07] MEDS ORDERED: POTASSIUM CHLORIDE 10MEQ SR TABLET PO ONE (09:00)
[2022-05-07 14:00] VITALS: BP 124/68
[2022-05-07 20:00] VITALS: BP 124/86
[2022-05-07] MEDS: ATORVASTATIN 20 MG TAB PO SCH (20:44)
[2022-05-07] MEDS: allopurinoL 100 MG TAB PO SCH (20:44)
[2022-05-08] MEDS: SODIUM CHLORIDE 0.9% INJ 10 ML SYR IV SCH ×4 (05:08→17:51)
[2022-05-08] MEDS: CEPHALEXIN 500 MG CAP PO SCH ×3 (05:10→21:30)
[2022-05-08] MEDS: oxyCODONE 5MG TAB PO PRN ×2 (05:11→21:39)
[2022-05-08 06:00] VITALS: BP 118/76
[2022-05-08 06:34] LABS: CALCIUM LEVEL 8.7 MG/DL (8.3-10.6); CREATININE FOR GFR 1.26 MG/DL (0.55-1.30); GLOMERULAR FILTRATION RATE 44.8 (>45); MAGNESIUM LEVEL 1.6 MG/DL (1.8-2.4); POTASSIUM SERUM 4.2 MMOL/L (3.5-5.1)
[2022-05-08 06:42] LABS: HEMATOCRIT 32.4 % (36.0-47.0); HEMOGLOBIN 10.4 g/dl (12.0-15.5); MEAN CORPUSCULAR HEMOGLOBIN 31.6 pg (27.0-33.0); MEAN CORPUSCULAR HGB CONC 32.1 g/dl (32.0-36.5); MEAN CORPUSCULAR VOLUME 98.5 fl (80.0-96.0); PLATELET COUNT, AUTOMATED 125 10^3/uL (150-450); RED BLOOD COUNT 3.29 10^6/uL (4.00-5.40); WHITE BLOOD COUNT 6.5 10^3/uL (4.0-10.0)
[2022-05-08] MEDS: HEPARIN SOD (PORCINE) 5000UNITS/ML 1ML VIAL/SYRINGE SC SCH ×3 (06:46→21:30)
[2022-05-08 08:00] VITALS: BP 122/75
[2022-05-08] MEDS: MIRALAX *UNIT DOSE* 17GM PACKET PO SCH ×3 (09:00→21:30)
[2022-05-08] MEDS: LEVEMIR (INSULIN DETEMIR) 1 UNITS/0.01ML SC SCH ×2 (09:00→21:30)
[2022-05-08] MEDS: PARoxetine 20MG TABLET PO SCH (09:50)
[2022-05-08] MEDS: CLOPIDOGREL 75 MG TAB PO SCH (09:50)
[2022-05-08] MEDS: INSULIN LISPRO (NovoLOG) PER UNIT SC SCH ×4 (09:50→20:52)
[2022-05-08] MEDS: SENOKOT S TAB PO SCH ×2 (09:51→21:30)
[2022-05-08] MEDS: FERROUS SULFATE 325MG TAB PO SCH ×2 (09:51→21:29)
[2022-05-08] MEDS: MAGNESIUM OXIDE 400MG TAB (MAG-OX) PO SCH ×3 (09:51→21:29)
[2022-05-08] MEDS: ASPIRIN 81MG ENTERIC TABLET PO SCH (09:53)
[2022-05-08] MEDS: ACETAMINOPHEN TAB 650MG DOSE (2X325MG) PO PRN ×2 (09:53→17:43)
[2022-05-08] MEDS: GABAPENTIN 300 MG CAP PO SCH ×3 (09:53→21:30)
[2022-05-08] MEDS: FUROSEMIDE 40 MG TAB PO SCH ×2 (09:54→17:41)
[2022-05-08] MEDS: TRIAMCINOLONE ACET 0.1% OINTMENT 80GM TOP SCH ×2 (09:55→21:31)
[2022-05-08 14:00] VITALS: BP 128/50
[2022-05-08 20:10] VITALS: BP 112/68
[2022-05-08] MEDS: allopurinoL 100 MG TAB PO SCH (21:29)
[2022-05-08] MEDS: ATORVASTATIN 20 MG TAB PO SCH (21:30)
[2022-05-09] MEDS: SODIUM CHLORIDE 0.9% INJ 10 ML SYR IV SCH ×2 (05:13→05:15)
[2022-05-09] MEDS: HEPARIN SOD (PORCINE) 5000UNITS/ML 1ML VIAL/SYRINGE SC SCH ×2 (05:15→09:57)
[2022-05-09] MEDS: CEPHALEXIN 500 MG CAP PO SCH ×2 (05:15→15:29)
[2022-05-09 06:00] VITALS: BP 122/74
[2022-05-09 06:31] LABS: HEMOGLOBIN 10.3 g/dl (12.0-15.5); MEAN CORPUSCULAR HEMOGLOBIN 31.9 pg (27.0-33.0); MEAN CORPUSCULAR HGB CONC 32.2 g/dl (32.0-36.5); MEAN CORPUSCULAR VOLUME 99.1 fl (80.0-96.0); RED BLOOD COUNT 3.23 10^6/uL (4.00-5.40); WHITE BLOOD COUNT 4.6 10^3/uL (4.0-10.0)
[2022-05-09 06:41] LABS: PLATELET COUNT, AUTOMATED 60 10^3/uL (150-450)
[2022-05-09 06:59] LABS: CALCIUM LEVEL 9.1 MG/DL (8.3-10.6); CREATININE FOR GFR 1.24 MG/DL (0.55-1.30); GLOMERULAR FILTRATION RATE 45.7 (>45); POTASSIUM SERUM 4.2 MMOL/L (3.5-5.1)
[2022-05-09] MEDS: MIRALAX *UNIT DOSE* 17GM PACKET PO SCH ×2 (09:06→15:30)
[2022-05-09] MEDS: PARoxetine 20MG TABLET PO SCH (09:06)
[2022-05-09] MEDS: LEVEMIR (INSULIN DETEMIR) 1 UNITS/0.01ML SC SCH (09:06)
[2022-05-09] MEDS: SENOKOT S TAB PO SCH (09:06)
[2022-05-09] MEDS: MAGNESIUM OXIDE 400MG TAB (MAG-OX) PO SCH ×2 (09:06→15:30)
[2022-05-09] MEDS: FERROUS SULFATE 325MG TAB PO SCH (09:06)
[2022-05-09] MEDS: GABAPENTIN 300 MG CAP PO SCH ×2 (09:06→15:29)
[2022-05-09] MEDS: ASPIRIN 81MG ENTERIC TABLET PO SCH (09:06)
[2022-05-09] MEDS: CLOPIDOGREL 75 MG TAB PO SCH (09:06)
[2022-05-09] MEDS: FUROSEMIDE 40 MG TAB PO SCH (09:07)
[2022-05-09] MEDS: TRIAMCINOLONE ACET 0.1% OINTMENT 80GM TOP SCH (09:08)
[2022-05-09] MEDS: ACETAMINOPHEN TAB 650MG DOSE (2X325MG) PO PRN (09:08)
[2022-05-09] MEDS: INSULIN LISPRO (NovoLOG) PER UNIT SC SCH ×2 (09:09→12:00)
[2022-05-09 14:00] VITALS: BP 126/84
[2022-05-09] MEDS ORDERED: CLOP75TA2 PO (15:23)
[2022-05-09] MEDS ORDERED: FURO40TA2 PO (15:23)
[2022-05-09] MEDS ORDERED: CEPH500C PO (15:23)
[2022-05-09] MEDS ORDERED: FLEEENE12 PR (15:23)
[2022-05-09] MEDS ORDERED: SENN-52 PO (15:23)
== END 2022-05-09 17:35 | disposition home health service (06) | DRG 41 ==
LOC: M ED 13:30 → EDBD 13:30 → M ED INP 19:14 → M MSPAV 22:37
PROVIDERS: ADMIT Internal Medicine; ATTEND Student in an Organized Health Care Education/Training Program
PROC: B246ZZZ Ultrasonography of Right and Left Heart (ICD-10-PCS; 2022-04-24)
PROC: 02HV33Z Insertion of Infusion Device into Superior Vena Cava, Percutaneous Approach (ICD-10-PCS; 2022-04-29)
PROC: 0KBT0ZZ Excision of Left Lower Leg Muscle, Open Approach (ICD-10-PCS; principal; 2022-04-29 11:30)
PROC: 30233N1 Transfusion of Nonautologous Red Blood Cells into Peripheral Vein, Percutaneous Approach (ICD-10-PCS; 2022-05-04)
DX: I63.9 Cerebral infarction, unspecified (principal); N18.5 Chronic kidney disease, stage 5; I13.2 Hypertensive heart and chronic kidney disease with heart failure and with stage 5 chronic kidney disease, or end stage renal disease; I50.32 Chronic diastolic (congestive) heart failure; T87.44 Infection of amputation stump, left lower extremity; E11.22 Type 2 diabetes mellitus with diabetic chronic kidney disease; E78.5 Hyperlipidemia, unspecified; I25.10 Atherosclerotic heart disease of native coronary artery without angina pectoris; I65.22 Occlusion and stenosis of left carotid artery; E11.51 Type 2 diabetes mellitus with diabetic peripheral angiopathy without gangrene; I73.9 Peripheral vascular disease, unspecified; M10.9 Gout, unspecified; F41.8 Other specified anxiety disorders; Z89.512 Acquired absence of left leg below knee; Z90.49 Acquired absence of other specified parts of digestive tract; Z90.79 Acquired absence of other genital organ(s); Z87.891 Personal history of nicotine dependence; E11.65 Type 2 diabetes mellitus with hyperglycemia; I95.9 Hypotension, unspecified; D50.9 Iron deficiency anemia, unspecified; R47.01 Aphasia; H66.91 Otitis media, unspecified, right ear; E11.42 Type 2 diabetes mellitus with diabetic polyneuropathy; T87.81 Dehiscence of amputation stump; K59.00 Constipation, unspecified; Z20.822 Contact with and (suspected) exposure to COVID-19; Z79.82 Long term (current) use of aspirin; Z79.4 Long term (current) use of insulin; Z79.899 Other long term (current) drug therapy; Z88.5 Allergy status to narcotic agent; Z91.048 Other nonmedicinal substance allergy status; Z95.5 Presence of coronary angioplasty implant and graft

== ENCOUNTER 2022-05-16 19:33 | Emergency (ER) | payer OTHER ==
[~2022-05-16] VITALS: Ht 177.8 cm; Wt 120.0 kg
[~2022-05-16 19:33] MED LIST changes: +CLOP75TA2 PO; +ECOT81TA5 PO; +FLEEENE12 PR; +FURO40TA2 PO; +HYDR-3910 PO; +INSUH10VL SC; +POLY17PO18 PO; +SENN-52 PO
[2022-05-16 19:34] VITALS: BP 156/65
== END 2022-05-16 22:58 | disposition home or self-care (01) ==
LOC: M ED 19:33
DX: R22.31 Localized swelling, mass and lump, right upper limb (principal); E66.9 Obesity, unspecified; I50.9 Heart failure, unspecified; E11.9 Type 2 diabetes mellitus without complications; I10 Essential (primary) hypertension; E78.5 Hyperlipidemia, unspecified; K21.9 Gastro-esophageal reflux disease without esophagitis; J44.9 Chronic obstructive pulmonary disease, unspecified; F41.9 Anxiety disorder, unspecified; F32.9 Major depressive disorder, single episode, unspecified

== ENCOUNTER → 2022-05-29 | Outpatient (REF) | payer OTHER | LOC: M LAB REF 17:32 | PROVIDERS: ATTEND Nurse Practitioner Family | DX: N39.0 Urinary tract infection, site not specified (principal) ==

== ENCOUNTER → 2022-06-27 | Outpatient (REF) | payer OTHER | LOC: M LAB REF 16:46 | PROVIDERS: ATTEND Nurse Practitioner Family | DX: N18.4 Chronic kidney disease, stage 4 (severe) (principal) ==

== ENCOUNTER → 2022-08-06 | Outpatient (CLI) | payer OTHER | LOC: M RAD 13:33 | PROVIDERS: ATTEND Family Medicine | DX: E04.1 Nontoxic single thyroid nodule (principal) ==

== ENCOUNTER → 2022-09-11 | Outpatient (CLI) | payer OTHER ==
[~2022-09-11] MED LIST changes: -K-TA10TA2 PO; +POTA-165 PO
[2022-09-11 17:07] LABS: HEMATOCRIT 33.7 % (36.0-47.0); HEMOGLOBIN 10.8 g/dl (12.0-15.5); MEAN CORPUSCULAR HEMOGLOBIN 32.1 pg (27.0-33.0); MEAN CORPUSCULAR VOLUME 100.3 fl (80.0-96.0); PLATELET COUNT, AUTOMATED 143 10^3/uL (150-450); RED BLOOD COUNT 3.36 10^6/uL (4.00-5.40)
[2022-09-11 17:34] LABS: ALBUMIN 3.4 G/DL (3.2-5.2); BILIRUBIN,TOTAL 0.8 MG/DL (0.3-1.2); CALCIUM LEVEL 9.1 MG/DL (8.3-10.6); CHOLESTEROL RISK RATIO 2.63 (<5); CREATININE FOR GFR 1.55 MG/DL (0.55-1.30); GLOMERULAR FILTRATION RATE 35.3 (>45); HDL CHOLESTEROL 43.6 MG/DL (>40); NON-HDL-C 71.4 MG/DL; POTASSIUM SERUM 4.6 MMOL/L (3.5-5.1)
[2022-09-11 17:35] LABS: THYROID STIMULATING HORMONE 1.227 uIU/ML (0.55-4.78)
[2022-09-11 17:50] LABS: HEMOGLOBIN A1c 7.7 % (4.0-6.0)
== END ==
LOC: M PLALAB 14:07
PROVIDERS: ATTEND Family Medicine
DX: E11.65 Type 2 diabetes mellitus with hyperglycemia (principal); N18.4 Chronic kidney disease, stage 4 (severe); E78.2 Mixed hyperlipidemia; I12.9 Hypertensive chronic kidney disease with stage 1 through stage 4 chronic kidney disease, or unspecified chronic kidney disease; D63.8 Anemia in other chronic diseases classified elsewhere; E04.1 Nontoxic single thyroid nodule; Z79.4 Long term (current) use of insulin

== ENCOUNTER → 2022-09-18 | Outpatient (REF) | payer OTHER | LOC: M SFHCPLAZ 14:55 | PROVIDERS: ATTEND Student in an Organized Health Care Education/Training Program | DX: R19.5 Other fecal abnormalities (principal) ==

== ENCOUNTER 2023-02-25 18:18 | Emergency (ER) | payer MEDICARE, OTHER ==
[~2023-02-25] VITALS: Ht 177.8 cm; Wt 102.3 kg
[~2023-02-25 18:18] MED LIST changes: +AMOX875T2 PO; +GLIP5TAB17 PO; -GLIP5TAB8 PO; +MEDR4PAK PO
[2023-02-26] MEDS ORDERED: oxyCODONE 5MG TAB PO ONE (06:40)
[2023-02-26 08:22] LABS: BASO # 0.1 10^3/uL (0.0-0.2); BASO % 0.6 % (0.0-1.0); EOS # 0.3 10^3/uL (0.0-0.5); EOS % 3.4 % (0.0-3.0); HEMATOCRIT 38.3 % (36.0-47.0); HEMOGLOBIN 12.4 g/dl (12.0-15.5); LYMPH % 20.4 % (24.0-44.0); MEAN CORPUSCULAR HEMOGLOBIN 32.2 pg (27.0-33.0); MEAN CORPUSCULAR HGB CONC 32.4 g/dl (32.0-36.5); MEAN CORPUSCULAR VOLUME 99.5 fl (80.0-96.0); MONO # 0.7 10^3/uL (0.0-0.8); MONO % 7.5 % (2.0-8.0); NEUTROPHILS # 6.5 10^3/uL (1.5-8.5); NEUTROPHILS % 67.6 % (36.0-66.0); PLATELET COUNT, AUTOMATED 146 10^3/uL (150-450); RED BLOOD COUNT 3.85 10^6/uL (4.00-5.40); WHITE BLOOD COUNT 9.6 10^3/uL (4.0-10.0)
[2023-02-26 08:44] LABS: C REACTIVE PROTEIN QUANTITATIV 1.2 MG/DL (<1.0)
[2023-02-26 08:45] LABS: CALCIUM LEVEL 9.7 MG/DL (8.3-10.6); CREATININE FOR GFR 1.67 MG/DL (0.55-1.30); GLOMERULAR FILTRATION RATE 32.3 (>39); POTASSIUM SERUM 3.8 MMOL/L (3.5-5.1)
[2023-02-26 09:50] VITALS: BP 140/61; TEMP 96.8; O2SAT 99
== END 2023-02-26 10:00 | disposition home or self-care (01) ==
LOC: M ED 18:18
DX: T87.89 Other complications of amputation stump (principal); L97.319 Non-pressure chronic ulcer of right ankle with unspecified severity; F32.A Depression, unspecified; E78.5 Hyperlipidemia, unspecified; I10 Essential (primary) hypertension; E11.9 Type 2 diabetes mellitus without complications; F10.10 Alcohol abuse, uncomplicated; Z88.5 Allergy status to narcotic agent; Z91.048 Other nonmedicinal substance allergy status; Z79.891 Long term (current) use of opiate analgesic; Z79.82 Long term (current) use of aspirin; Z79.02 Long term (current) use of antithrombotics/antiplatelets; Z79.899 Other long term (current) drug therapy

== ENCOUNTER → 2023-04-07 | Outpatient (CLI) | payer MEDICARE ==
[2023-04-07 14:36] LABS: BASO % 0.5 % (0.0-1.0); EOS # 0.3 10^3/uL (0.0-0.5); EOS % 3.7 % (0.0-3.0); HEMATOCRIT 33.9 % (36.0-47.0); LYMPH # 1.6 10^3/uL (1.5-5.0); LYMPH % 18.8 % (24.0-44.0); MEAN CORPUSCULAR HEMOGLOBIN 32.3 pg (27.0-33.0); MEAN CORPUSCULAR HGB CONC 32.4 g/dl (32.0-36.5); MEAN CORPUSCULAR VOLUME 99.4 fl (80.0-96.0); MONO # 0.5 10^3/uL (0.0-0.8); MONO % 5.9 % (2.0-8.0); NEUTROPHILS # 5.9 10^3/uL (1.5-8.5); NEUTROPHILS % 70.5 % (36.0-66.0); PLATELET COUNT, AUTOMATED 152 10^3/uL (150-450); RED BLOOD COUNT 3.41 10^6/uL (4.00-5.40); WHITE BLOOD COUNT 8.3 10^3/uL (4.0-10.0)
[2023-04-07 15:08] LABS: ALBUMIN 3.2 G/DL (3.2-5.2); BILIRUBIN,TOTAL 0.5 MG/DL (0.3-1.2); CALCIUM LEVEL 8.8 MG/DL (8.3-10.6); CREATININE FOR GFR 1.88 MG/DL (0.55-1.30); GLOMERULAR FILTRATION RATE 28.2 (>39); POTASSIUM SERUM 4.5 MMOL/L (3.5-5.1); TOTAL PROTEIN 5.9 G/DL (5.7-8.2)
[2023-04-07 15:09] LABS: TOTAL 25(OH) VITAMIN D 26.2 NG/ML (20.0-100.0)
[2023-04-07 16:09] LABS: HEMOGLOBIN A1c 8.1 % (4.0-6.0)
== END ==
LOC: M PLALAB 11:33
PROVIDERS: ATTEND Family Medicine
DX: E11.65 Type 2 diabetes mellitus with hyperglycemia (principal); E11.22 Type 2 diabetes mellitus with diabetic chronic kidney disease; N18.4 Chronic kidney disease, stage 4 (severe); D63.8 Anemia in other chronic diseases classified elsewhere; E55.9 Vitamin D deficiency, unspecified

== ENCOUNTER 2023-05-22 13:28 | Outpatient (RCR) | payer MEDICARE ==
[~2023-05-22 13:28] MED LIST changes: -HYDR-3910 PO; -HYDR25TA PO; +HYDR25TA87 PO; +HYDR25TA88 PO; -MINO100T PO; +MINO100T6 PO; -MIRA1POW3 PO; +MIRA33506 PO
== END 2023-05-24 ==
LOC: M PT 13:28
PROVIDERS: ATTEND Family Medicine
DX: Z89.512 Acquired absence of left leg below knee (principal); Z97.14 Presence of artificial left leg (complete) (partial)

== ENCOUNTER 2023-06-25 16:38 | Emergency (ER) | payer MEDICARE, OTHER, SELFPAY ==
[~2023-06-25] VITALS: Ht 177.8 cm; Wt 122.7 kg
[~2023-06-25 16:38] MED LIST changes: +DOXY-323 PO; -DOXY-443 PO
[2023-06-25 16:40] VITALS: BP 160/90; TEMP 98.4
[2023-06-25 19:18] VITALS: O2SAT 97
[2023-06-25] MEDS: ACETAMINOPH W/CODEINE #3 TAB UD PO ONE (19:18)
[2023-06-25] MEDS ORDERED: ACET-716 PO (19:51)
== END 2023-06-25 20:13 | disposition home or self-care (01) ==
LOC: M ED 16:38
DX: S22.41XA Multiple fractures of ribs, right side, initial encounter for closed fracture (principal); W01.10XA Fall on same level from slipping, tripping and stumbling with subsequent striking against unspecified object, initial encounter; Y92.009 Unspecified place in unspecified non-institutional (private) residence as the place of occurrence of the external cause; Y93.9 Activity, unspecified; Y99.9 Unspecified external cause status; E11.9 Type 2 diabetes mellitus without complications; I12.9 Hypertensive chronic kidney disease with stage 1 through stage 4 chronic kidney disease, or unspecified chronic kidney disease; Z79.82 Long term (current) use of aspirin; Z79.4 Long term (current) use of insulin; Z79.899 Other long term (current) drug therapy; Z88.5 Allergy status to narcotic agent; Z91.89 Other specified personal risk factors, not elsewhere classified

== ENCOUNTER → 2024-03-11 | Outpatient (CLI) | payer MEDICARE ==
[~2024-03-11] MED LIST changes: +ACET-716 PO; -DOXY-323 PO; +DOXY-441 PO; +GABA-1172 PO; -GABA-282 PO; +NYST1POW3 TOP; -NYST1POW9 TOP
[2024-03-11 17:08] LABS: HEMOGLOBIN A1c 6.3 % (4.0-6.0)
== END ==
LOC: M PLALAB 12:00
PROVIDERS: ATTEND Family Medicine
DX: E11.22 Type 2 diabetes mellitus with diabetic chronic kidney disease (principal)

== ENCOUNTER → 2024-12-29 | Outpatient (REF) | payer MEDICARE ==
[~2024-12-29] MED LIST changes: -GLUC1KIT IM; +GLUC1VIA14 IM; -IBUP-1022 PO; +IBUP600T42 PO
[2024-12-29 17:36] LABS: PLATELET COUNT, AUTOMATED 166 10^3/uL (150-450)
[2024-12-29 17:40] LABS: ALT/SGPT 17.0 U/L (7.0-40); AST/SGOT 20.0 U/L (<34); CALCIUM LEVEL 9.6 MG/DL (8.3-10.6); CARBON DIOXIDE LEVEL 30.0 MMOL/L (20-31); CHLORIDE LEVEL 100.0 MMOL/L (98-107); CHOLESTEROL LEVEL 110.0 MG/DL (<200); CHOLESTEROL RISK RATIO 3.05 (<5); CREATININE FOR GFR 1.57 MG/DL (0.55-1.30); GLOMERULAR FILTRATION RATE 34.8 (>39); LDL CHOLESTEROL 46.4 MG/DL (<100); NON-HDL-C 74.0 MG/DL; POTASSIUM SERUM 3.9 MMOL/L (3.5-5.1); SODIUM LEVEL 141.0 MMOL/L (136-145); TRIGLYCERIDES LEVEL 138.0 MG/DL (<150)
[2024-12-29 17:42] LABS: FREE T4 1.22 NG/DL (0.89-1.76)
[2024-12-29 17:52] LABS: ESTIMATED AVERAGE GLUCOSE 151.0 MG/DL (60-110)
== END ==
LOC: M PLALAB 16:50 → M LABDRWAD 16:50
DX: Z00.00 Encounter for general adult medical examination without abnormal findings (principal); E11.42 Type 2 diabetes mellitus with diabetic polyneuropathy; Z13.29 Encounter for screening for other suspected endocrine disorder; N18.4 Chronic kidney disease, stage 4 (severe); D63.8 Anemia in other chronic diseases classified elsewhere; E78.2 Mixed hyperlipidemia; Z79.899 Other long term (current) drug therapy; K21.9 Gastro-esophageal reflux disease without esophagitis; Z23 Encounter for immunization; Z12.39 Encounter for other screening for malignant neoplasm of breast; Z12.11 Encounter for screening for malignant neoplasm of colon; Z13.820 Encounter for screening for osteoporosis; Z97.10 Presence of artificial limb (complete) (partial), unspecified
CPT/HCPCS: 36415; 80053; 80061; 83036; 84439; 84443; 85027; 90662; G0008